=== PATIENT | male | born 1945 | race Caucasian/White ===

== ENCOUNTER → 2016-11-28 | Outpatient (CLI) | payer MEDICARE, OTHER ==
[2016-11-28 08:39] LABS: ALT 32 U/L (21-72); AST 19 U/L (17-59); Alkaline Phosphatase 83 U/L (38-126); Anion Gap 8 mmol/L; Blood Urea Nitrogen 24 mg/dL (9-20); Calcium 9.3 mg/dL (8.4-10.2); Carbon Dioxide 26 mmol/L (22-30); Chloride 107 mmol/L (98-107); Cholesterol 139 mg/dL (<200); Glucose 108 mg/dL (74-99); HDL Cholesterol 54 mg/dL (40-60); Non-African American GFR(MDRD) >60 (>60 ml/min/1.73 sqM); Potassium 4.3 mmol/L (3.5-5.1); Sodium 141 mmol/L (137-145); Total Bilirubin 0.5 mg/dL (0.2-1.3); Total Protein 6.6 g/dL (6.3-8.2); Triglycerides 79 mg/dL (<150)
== END | disposition home or self-care (01) ==
LOC: LABWHC1 07:45
PROVIDERS: ATTEND Internal Medicine Endocrinology, Diabetes & Metabolism
DX: E11.65 Type 2 diabetes mellitus with hyperglycemia (principal)
CPT/HCPCS: 36415; 80053; 80061; 82043

== ENCOUNTER → 2017-01-17 | Outpatient (CLI) | payer MEDICARE, OTHER ==
--- NOTE | 2017-01-17 15:07 | CT ---
EXAMINATION TYPE: CT chest wo con DATE OF EXAM: 01/17/2017 2:44 PM COMPARISON: CT chest July 06, [address] November 26, 2015 HISTORY: Solitary Pulmonary Nodule CT DLP: 702 mGycm. Automated Exposure Control for Dose Reduction was Utilized. TECHNIQUE: CT scan of the thorax is performed without IV contrast. FINDINGS: LUNGS: Slightly irregular nodular opacity anteriorly right upper lobe is slightly more prominent on c urrent study measuring 6 x 5 mm on axial image 25. More faint reticulonodular opacities superior and lateral to this near axial image 22 is stable. A 1 cm focus of increased reticulonodular opacity left upper lung abutting fissure on axial image 28 is also stable. More suspicious masslike density media lly inferior left upper lobe measures 1.9 x 1.6 cm on current study axial image 31 abutting mediastin um and is more prominent versus prior study. Inferior and medial to this there is more focal atelecta sis or scarring now present. No pleural effusion or pneumothorax is seen bilaterally. No new parenchy mal nodule or mass is present. MEDIASTINUM: Lack of IV contrast is noted to limit evaluation for mediastinal and especially hilar a denopathy. There are no definitive greater than 1 cm hilar or mediastinal lymph nodes. No cardiomeg ryan or pericardial effusion is seen. Coronary artery calcification is noted. OTHER: Cholecystectomy clips are redemonstrated. There is fat replaced atrophy of pancreas seen. IMPRESSION: Small nodule right upper lobe slightly increased in size up to 6 mm on current study. Mor e concern masslike consolidation left upper lobe medially is increased in size, neoplasm at this leve l is slightly more suspicious, consider PET/CT correlation.
== END | disposition home or self-care (01) ==
LOC: RADCTMAIN 14:23
PROVIDERS: ATTEND Internal Medicine
DX: R91.1 Solitary pulmonary nodule (principal)
CPT/HCPCS: 71250

== ENCOUNTER → 2017-01-18 | Outpatient (CLI) | payer MEDICARE, OTHER ==
[2017-01-18 14:22] LABS: Basophils % (A) 0 %; CH 31.1; CHCM 33.8; Eosinophils # (A) 0.2 k/uL (0-0.7); Eosinophils % (A) 3 %; HCT 38.9 % (39.0-53.0); HDW 3.12; HGB 12.8 gm/dL (13.0-17.5); Luc # (Auto) 0.13; Luc % (Auto) 2; Lymphocytes # (A) 0.8 k/uL (1.0-4.8); Lymphocytes % (A) 12 %; MCH 30.4 pg (25.0-35.0); MCHC 32.9 g/dL (31.0-37.0); MCV 92.5 fL (80.0-100.0); Mean Platelet Volume 8.9; Monocytes # (A) 0.3 k/uL (0-1.0); Monocytes % (A) 5 %; Neutrophils # (A) 5.4 k/uL (1.3-7.7); Neutrophils % (A) 79 %; RDW 13.9 % (11.5-15.5); WBC 6.8 k/uL (3.8-10.6); WBC (Perox) 7.27
[2017-01-18 14:36] LABS: ALT 31 U/L (21-72); AST 18 U/L (17-59); Alkaline Phosphatase 78 U/L (38-126); Anion Gap 8 mmol/L; Blood Urea Nitrogen 20 mg/dL (9-20); Calcium 9.7 mg/dL (8.4-10.2); Carbon Dioxide 30 mmol/L (22-30); Chloride 106 mmol/L (98-107); Cholesterol 137 mg/dL (<200); Glucose 92 mg/dL (74-99); HDL Cholesterol 47 mg/dL (40-60); Non-African American GFR(MDRD) 60 (>60 ml/min/1.73 sqM); Potassium 4.5 mmol/L (3.5-5.1); Sodium 144 mmol/L (137-145); Total Bilirubin 0.7 mg/dL (0.2-1.3); Total Protein 6.5 g/dL (6.3-8.2); Triglycerides 74 mg/dL (<150)
[2017-01-18 16:25] LABS: Erythrocyte Sedimentation Rate 19 mm/hr (0-15)
== END | disposition home or self-care (01) ==
LOC: LABWHC1 13:53
PROVIDERS: ATTEND Internal Medicine
DX: E78.5 Hyperlipidemia, unspecified (principal); I10 Essential (primary) hypertension; M31.6 Other giant cell arteritis; R51 Headache
CPT/HCPCS: 36415; 80053; 80061; 84439; 84443; 85025; 85652; 86038; 99214

== ENCOUNTER → 2017-01-25 | Outpatient (CLI) | payer MEDICARE, OTHER | LOC: LABWHC1 11:06 | PROVIDERS: ATTEND Internal Medicine Endocrinology, Diabetes & Metabolism | DX: E11.65 Type 2 diabetes mellitus with hyperglycemia (principal) | CPT/HCPCS: 82043 ==

== ENCOUNTER → 2017-01-31 | Outpatient (CLI) | payer MEDICARE, OTHER ==
--- NOTE | 2017-01-31 07:22 | MR ---
EXAMINATION TYPE: MR brain wo/w con DATE OF EXAM: 01/31/2017 6:45 AM COMPARISON: NONE HISTORY: Headache CONTRAST: Patient received 20 mL intravenous MultiHance gadolinium contrast. Multiplanar and multispin-echo imaging of the brain was performed . Pre and post contrast enhanced i mages are obtained. The ventricles, basal cisterns and sulci overlying the cerebral convexities are mildly enlarged. There is evidence of mild to moderate periventricular white matter ischemic demyelination. Remote deep white matter insults are also noted. Diffusion-weighted imaging demonstrates a small focus of acute edema within the mid to posterior left oshea radiata measuring approximately 8 mm in size. No additional areas of acute edema are seen. Th is compatible with a small acute vascular insult. No evidence for cortical insult. There is no evidence for midline shift or mass effect. Acute intracranial hemorrhage or extra-axial collection is not evident. No enhancing lesions are seen. The paranasal sinuses and mastoid air cells are well-aerated. IMPRESSION: 1. Small focus of acute edema within the mid to posterior left oshea radiata compatible with the sma ll acute vascular insult. 2. Age-related atrophic and chronic small vessel ischemic change. No enhancing lesions are seen.
== END | disposition home or self-care (01) ==
LOC: RADMRIMAIN 05:50
PROVIDERS: ATTEND Internal Medicine
DX: G31.1 Senile degeneration of brain, not elsewhere classified (principal); I67.82 Cerebral ischemia
CPT/HCPCS: 70553; A9577

== ENCOUNTER 2017-02-05 03:39 | Inpatient (IN) | payer MEDICARE, OTHER ==
[2017-02-05] MEDS ORDERED: ACETAMINOPHEN TAB 500 MG TAB PO STA (03:43)
[2017-02-05] MEDS ORDERED: IPRATROPIUM-ALBUTEROL 3 ML NEB INHALATION STA (03:44)
[2017-02-05] MEDS ORDERED: methylPREDNISolone SOD SUCCI 125 MG/2 ML VIAL IV STA (03:44)
--- NOTE | 2017-02-05 03:46 | ED ---
General Adult HPI - General Stated complaint: Respiratory Distress Time Seen by Provider: 02/05/17 03:42 Source: patient, EMS, RN notes reviewed Mode of arrival: EMS Limitations: no limitations - History of Present Illness Initial comments: Patient is a pleasant 71-year-old male presenting to the emergency department complaining of difficulty breathing. Onset was yesterday. Patient does have cough with green productive sputum. Patient has a history of COPD. No known fevers. No leg pain or leg swelling. Symptoms have worsened since onset. - Related Data Home Medications Medication Instructions Recorded Confirmed Albuterol Sulfate [Proventil Hfa] 1 - 2 puff INHALATION RT-Q6H PRN 07/09/1401/19 Insulin Detemir [Levemir] 30 unit SQ HS 07/09/14 02/05/17 Isosorbide Mononitrate ER [Imdur] 30 mg PO DAILY 07/09/14 02/05/17 Lisinopril [Zestril] 10 mg PO DAILY 07/09/14 02/05/17 Metoprolol Tartrate [Lopressor] 25 mg PO BID 07/09/14 02/05/17 Simvastatin [Zocor] 40 mg PO HS 07/09/14 02/05/17 amLODIPine [Norvasc] 5 mg PO DAILY 07/09/14 02/05/17 Budesonide-Formot 160-4.5 Mcg 2 puff INHALATION RT-BID 11/15/14 02/05/17 [Symbicort 160-4.5 Mcg Inhaler] Nortriptyline [Pamelor] 25 mg PO HS 11/15/14 02/05/17 PARoxetine [Paxil] 20 mg PO DAILY 11/15/14 02/05/17 ALPRAZolam 0.25 mg PO BID 10/03/15 02/05/17 INSULIN LISPRO (humaLOG) [humaLOG 12 units SQ HS 10/03/15 02/05/17 (formulary)] Previous Rx's Medication Instructions Recorded Aspirin 81 mg PO DAILY #30 chewable 10/04/15 Tiotropium 18 Mcg/Puff [Spiriva] 1 cap INHALATION DAILY #30 cap 10/04/15 Allergies Allergy/AdvReac Type Severity Reaction Status Date / Time levofloxacin [From Levaquin] Allergy Rash/Hives Verified 11/29/15 16:02 Review of Systems ROS Statement: Those systems with pertinent positive or pertinent negative responses have been documented in the HPI. ROS Other: All systems not noted in ROS Statement are negative. Constitutional: Reports: chills Eyes: Denies: eye pain ENT: Denies: ear pain Respiratory: Reports: cough, dyspnea Cardiovascular: Denies: chest pain Endocrine: Reports: fatigue Gastrointestinal: Denies: abdominal pain Genitourinary: Denies: urgency Musculoskeletal: Denies: back pain Skin: Denies: rash Neurological: Denies: headache Past Medical History Past Medical History: COPD, Diabetes Mellitus, Hyperlipidemia, Hypertension, Prostate Disorder Additional Past Medical History / Comment(s): HAS O2 AT HOME, WEARS PRN History of Any Multi-Drug Resistant Organisms: None Reported Past Surgical History: Back Surgery, Cholecystectomy, Hernia Repair Additional Past Surgical History / Comment(s): back surgery, ROBERTO CATARACT SX Past Anesthesia/Blood Transfusion Reactions: No Reported Reaction Past Psychological History: Anxiety Smoking Status: Former smoker Past Alcohol Use History: Rare Past Drug Use History: None Reported - Past Family History Father Family Medical History: Diabetes Mellitus General Exam Limitations: no limitations General appearance: alert, in no apparent distress Head exam: Present: atraumatic Eye exam: Present: normal appearance, PERRL ENT exam: Present: normal oropharynx Neck exam: Present: normal inspection Respiratory exam: Present: wheezes, decreased breath sounds Cardiovascular Exam: Present: regular rate, normal rhythm GI/Abdominal exam: Present: soft. Absent: tenderness Extremities exam: Present: normal inspection. Absent: pedal edema, calf tenderness Neurological exam: Present: alert Psychiatric exam: Present: normal affect, normal mood Skin exam: Absent: rash Course Vital Signs 02/05/17 02/05/17 02/05/17 03:40 04:05 04:15 Temperature 99.9 F H Pulse Rate 107 H 97 96 Respiratory 24 Rate Blood Pressure 153/79 O2 Sat by Pulse 94 L Oximetry EKG Findings - EKG Comments: EKG Findings:: Sinus rhythm at 99 with PACs. WV 156. QRS 84. QT 322. QTC 413. Normal axis. Septal Q waves. No acute ST change. Medical Decision Making - Medical Decision Making Patient shows possible infection with a urine and therefore meets sepsis criteria. This is somewhat complicated by COPD. Patient nevertheless will be based on antibiotics. Case discussed with Dr. li, who will admit for Dr. Boyer. Admission orders written. IV antibiotics started. Consult placed for Dr. Boyer. - Lab Data Result diagrams: 02/05/17 04:07 02/05/17 04:07 Lab Results 02/05/17 02/05/17 02/05/17 Range/Units 04:07 04:07 04:07 WBC 12.8 H (3.8-10.6) k/uL RBC 4.03 L (4.30-5.90) m/uL Hgb 12.4 L (13.0-17.5) gm/dL Hct 36.5 L (39.0-53.0) % MCV 90.6 (80.0-100.0) fL MCH 30.7 (25.0-35.0) pg MCHC 33.9 (31.0-37.0) g/dL RDW 13.8 (11.5-15.5) % Plt Count 139 L (150-450) k/uL Neutrophils % 86 % Lymphocytes % 6 % Monocytes % 5 % Eosinophils % 1 % Basophils % 0 % Neutrophils # 11.0 H (1.3-7.7) k/uL Lymphocytes # 0.8 L (1.0-4.8) k/uL Monocytes # 0.6 (0-1.0) k/uL Eosinophils # 0.2 (0-0.7) k/uL Basophils # 0.0 (0-0.2) k/uL PT (9.0-12.0) sec INR (<1.1) APTT (22.0-30.0) sec Sodium 139 (137-145) mmol/L Potassium 4.3 (3.5-5.1) mmol/L Chloride 103 (98-107) mmol/L Carbon Dioxide 26 (22-30) mmol/L Anion Gap 10 mmol/L BUN 30 H (9-20) mg/dL Creatinine 1.20 (0.66-1.25) mg/dL Est GFR (MDRD) Af Amer >60 (>60 ml/min/1.73 sqM) Est GFR (MDRD) Non-Af 60 (>60 ml/min/1.73 sqM) Glucose 217 H (74-99) mg/dL Plasma Lactic Acid Nehemias 0.9 (0.7-2.0) mmol/L Calcium 9.1 (8.4-10.2) mg/dL Total Bilirubin 1.0 (0.2-1.3) mg/dL AST 16 L (17-59) U/L ALT 30 (21-72) U/L Alkaline Phosphatase 78 (38-126) U/L Total Protein 6.1 L (6.3-8.2) g/dL Albumin 3.5 (3.5-5.0) g/dL Urine Color Urine Appearance (Clear) Urine pH (5.0-8.0) Ur Specific [place] (1.001-1.035) Urine Protein (Negative) Urine Glucose (UA) (Negative) Urine Ketones (Negative) Urine Blood (Negative) Urine Nitrite (Negative) Urine Bilirubin (Negative) Urine Urobilinogen (<2.0) mg/dL Ur Leukocyte Esterase (Negative) Urine RBC (0-5) /hpf Urine WBC (0-5) /hpf Ur Squamous Epith Cells (0-4) /hpf Hyaline Casts (0-2) /lpf Granular Casts (0) /lpf Urine Mucus (None) /hpf Influenza Type A RNA (Not Detectd) Influenza Type B (PCR) (Not Detectd) 02/05/17 02/05/17 02/05/17 Range/Units 04:07 04:25 05:37 WBC (3.8-10.6) k/uL RBC (4.30-5.90) m/uL Hgb (13.0-17.5) gm/dL Hct (39.0-53.0) % MCV (80.0-100.0) fL MCH (25.0-35.0) pg MCHC (31.0-37.0) g/dL RDW (11.5-15.5) % Plt Count (150-450) k/uL Neutrophils % % Lymphocytes % % Monocytes % % Eosinophils % % Basophils % % Neutrophils # (1.3-7.7) k/uL Lymphocytes # (1.0-4.8) k/uL Monocytes # (0-1.0) k/uL Eosinophils # (0-0.7) k/uL Basophils # (0-0.2) k/uL PT 11.5 (9.0-12.0) sec INR 1.1 (<1.1) APTT 23.7 (22.0-30.0) sec Sodium (137-145) mmol/L Potassium (3.5-5.1) mmol/L Chloride (98-107) mmol/L Carbon Dioxide (22-30) mmol/L Anion Gap mmol/L BUN (9-20) mg/dL Creatinine (0.66-1.25) mg/dL Est GFR (MDRD) Af Amer (>60 ml/min/1.73 sqM) Est GFR (MDRD) Non-Af (>60 ml/min/1.73 sqM) Glucose (74-99) mg/dL Plasma Lactic Acid Nehemias (0.7-2.0) mmol/L Calcium (8.4-10.2) mg/dL Total Bilirubin (0.2-1.3) mg/dL AST (17-59) U/L ALT (21-72) U/L Alkaline Phosphatase (38-126) U/L Total Protein (6.3-8.2) g/dL Albumin (3.5-5.0) g/dL Urine Color Yellow Urine Appearance Clear (Clear) Urine pH 5.5 (5.0-8.0) Ur Specific [place] 1.020 (1.001-1.035) Urine Protein 2+ H (Negative) Urine Glucose (UA) 3+ H (Negative) Urine Ketones Negative (Negative) Urine Blood Small H (Negative) Urine Nitrite Negative (Negative) Urine Bilirubin Negative (Negative) Urine Urobilinogen 2.0 (<2.0) mg/dL Ur Leukocyte Esterase Small H (Negative) Urine RBC 3 (0-5) /hpf Urine WBC 17 H (0-5) /hpf Ur Squamous Epith Cells 2 (0-4) /hpf Hyaline Casts 1 (0-2) /lpf Granular Casts 112 (0) /lpf Urine Mucus Rare H (None) /hpf Influenza Type A RNA Not Detected (Not Detectd) Influenza Type B (PCR) Not Detected (Not Detectd) - Radiology Data Radiology results: image reviewed (Chest x-ray shows persistent infiltrate seen on prior CT. No new intrathoracic abnormality.) Critical Care Time Critical Care Time: Yes Total Critical Care Time: 31 Disposition Clinical Impression: Asthma exacerbation in COPD, Sepsis, Urinary tract infection Disposition: ADMITTED IP TO THIS HOSP
[2017-02-05 04:29] LABS: Basophils % (A) 0 %; CH 30.7; CHCM 34.1; Eosinophils # (A) 0.2 k/uL (0-0.7); Eosinophils % (A) 1 %; HCT 36.5 % (39.0-53.0); HDW 3.03; HGB 12.4 gm/dL (13.0-17.5); Luc # (Auto) 0.17; Luc % (Auto) 1; Lymphocytes # (A) 0.8 k/uL (1.0-4.8); Lymphocytes % (A) 6 %; MCH 30.7 pg (25.0-35.0); MCHC 33.9 g/dL (31.0-37.0); MCV 90.6 fL (80.0-100.0); Mean Platelet Volume 7.2; Monocytes # (A) 0.6 k/uL (0-1.0); Monocytes % (A) 5 %; Neutrophils % (A) 86 %; RBC 4.03 m/uL (4.30-5.90); RDW 13.8 % (11.5-15.5); WBC 12.8 k/uL (3.8-10.6); WBC (Perox) 13.36
[2017-02-05 04:42] LABS: ALT 30 U/L (21-72); AST 16 U/L (17-59); Alkaline Phosphatase 78 U/L (38-126); Anion Gap 10 mmol/L; Blood Urea Nitrogen 30 mg/dL (9-20); Calcium 9.1 mg/dL (8.4-10.2); Carbon Dioxide 26 mmol/L (22-30); Chloride 103 mmol/L (98-107); Glucose 217 mg/dL (74-99); Non-African American GFR(MDRD) 60 (>60 ml/min/1.73 sqM); Potassium 4.3 mmol/L (3.5-5.1); Sodium 139 mmol/L (137-145); Total Protein 6.1 g/dL (6.3-8.2)
--- NOTE | 2017-02-05 05:06 | XR ---
EXAM: XR Chest, 2 Views. CLINICAL HISTORY: Reason: Fever TECHNIQUE: Frontal and lateral views of the chest. COMPARISON: 01/17/[address] FINDINGS: Lungs: Opacity overlying the left hilum on the frontal view is seen anteriorly on the lateral view and corresponds to the medial left upper lobe infiltrate visible on the recent CT. No new additional infiltrate is seen. Pleural space: Unremarkable. No pneumothorax. Heart: Unremarkable. No cardiomegaly. Mediastinum: Unremarkable. Bones/joints: The bones are stable including multilevel degenerative changes. Upper abdomen: Right upper quadrant clips consistent with cholecystectomy. IMPRESSION: 1. Persistent medial left upper lobe infiltrate as was better seen by prior CT and for which continued follow-up is recommended to ensure clearing and exclude other etiologies including neoplasm. 2. No new additional intrathoracic abnormality is seen.
[2017-02-05 05:23] LABS: INR 1.1 (<1.1); Partial Thromboplastin Time 23.7 sec (22.0-30.0); Prothrombin Time 11.5 sec (9.0-12.0)
[2017-02-05 05:50] LABS: Appearance,Urine Clear (Clear); Bilirubin,Urine Negative (Negative); Glucose,Urine (UA) 3+ (Negative); Granular Casts,Urine 112 /lpf (0); Ketones,Urine Negative (Negative); Leukocyte Esterase,Urine Small (Negative); Mucus,Urine Rare /hpf; Nitrite,Urine Negative (Negative); PH, Urine 5.5 (5.0-8.0); Particle Count 9347; Protein,Urine 2+ (Negative); RBC,Urine 3 /hpf (0-5); Squamous Epithelial Cell,Urine 2 /hpf (0-4); UA Billing (MACRO vs. MICRO) MICRO; WBC,Urine 17 /hpf (0-5)
[2017-02-05] MEDS ORDERED: IPRATROPIUM-ALBUTEROL 3 ML NEB INHALATION PRN (05:58)
[2017-02-05] MEDS: IPRATROPIUM-ALBUTEROL 3 ML NEB INHALATION SCH ×4 (10:58→21:12)
[2017-02-05 12:22] LABS: Glucose,Whole Blood 286 mg/dL (75-99)
[2017-02-05] MEDS ORDERED: TEMAZEPAM 15 MG CAP PO PRN (13:29)
[2017-02-05] MEDS: methylPREDNISolone SOD SUCCI 125 MG/2 ML VIAL IV SCH ×3 (14:38→23:53)
[2017-02-05] MEDS: ALPRAZolam 0.25 MG TAB PO SCH ×2 (14:39→20:12)
[2017-02-05] MEDS: amLODIPine 5 MG TAB PO SCH (14:43)
[2017-02-05] MEDS: PARoxetine 20 MG TAB PO SCH (14:43)
[2017-02-05] MEDS: ASPIRIN 81 MG CHEW PO SCH (14:43)
[2017-02-05] MEDS: ISOSORBIDE MONONITRATE ER 30 MG TAB.ER.24H PO SCH (14:43)
[2017-02-05] MEDS: LISINOPRIL 10 MG TAB PO SCH (14:44)
[2017-02-05 16:31] LABS: Glucose,Whole Blood 348 mg/dL (75-99)
[2017-02-05] MEDS: INSULIN REGULAR 100 UNIT in SODIUM CHLORIDE 0.9% 100 ML IV SCH (16:58)
[2017-02-05] MEDS: INSULIN LISPRO (humaLOG) 300 UNIT/3 ML VIAL SQ SCH (17:05)
[2017-02-05] MEDS ORDERED: INSULIN LISPRO (humaLOG) 300 UNIT/3 ML VIAL SQ SCH (17:30)
[2017-02-05 17:41] LABS: Glucose,Whole Blood 320 mg/dL (75-99)
[2017-02-05 18:05] LABS: Glucose,Whole Blood 288 mg/dL (75-99)
--- NOTE | 2017-02-05 18:11 | HP ---
DATE OF ADMISSION: 02/05/2017 CHIEF COMPLAINT: Respiratory distress. HISTORY OF PRESENT ILLNESS: This 71-year-old gentleman with a past medical history of multiple medical problems including coronary artery disease, COPD, CVA, TIA, diabetes mellitus, hypertension, hyperlipidemia, myocardial infarction, disorder of the prostate, , history of chronic hypoxic respiratory failure, anxiety, depression, being followed by Dr. Boyer in the outpatient setting, has not been feeling well over the past 3 to 4 days. The patient has increasing cough. Yesterday the patient had increasing shortness of breath. The patient came to [facility] and was admitted for further evaluation and treatment. WBC 12.8, plasma lactic 0.9. The chest x-ray was done which showed persistent medial left upper lobe infiltrate seen on the CT scan and also the possibility of pneumonia or neoplasm is considered. The patient was admitted for further evaluation and treatment. There is no history of any fevers or rigors. No headache or loss of consciousness, hematochezia or melena at this time. PAST MEDICAL HISTORY: History of CAD, COPD, CVA, TIA, diabetes mellitus type 2, hypertension, hyperlipidemia, history of myocardial infarction, pneumonia, history of prostate disorder, back surgery, cholecystectomy, anxiety and depression. Medications prior to admission include: 1. Norvasc 5 mg p.o. daily. 2. Flomax 0.4. 3. Zocor 40 mg every 8. 4. Paxil 20 mg p.o. 5. Pamelor 25 mg every 6. 6. Lopressor 25 mg p.o. b.i.d. 7. Zestril 10 mg p.o. daily. 8. Imdur 30 mg p.o. daily. 9. Levemir 67 units subcutaneously at bedtime. 10. NovoLog 8 units subcu. 11. Plavix 75 mg p.o. daily. 12. Symbicort 2 puffs b.i.d. p.r.n. 13. Aspirin 81 mg p.o. daily. 14. Proventil 1 to 2 puffs every 6 p.r.n. 15. Xanax 0.5 b.i.d. ALLERGIES: LEVAQUIN. FAMILY HISTORY: History of diabetes mellitus in the family. SOCIAL HISTORY: Previous smoking. Occasional alcohol. REVIEW OF SYSTEMS: ENT: No diminishing hearing. Diminished vision. CARDIOVASCULAR: As mentioned earlier. RESPIRATORY: As mentioned earlier. GI: No nausea. : No dysuria. NERVOUS SYSTEM: No numbness or weakness. ALLERGY/IMMUNOLOGY: None. MUSCULOSKELETAL: As mentioned. RHEUMATOLOGY: Negative. PSYCHIATRY: As mentioned earlier. PHYSICAL EXAMINATION: The patient is alert, oriented x3. Pulse 84, blood pressure 130/70, respirations 20, temperature 97.8, pulse ox 97% on 2 L. HEENT: Conjunctivae normal. NECK: No JVD. CARDIOVASCULAR: S1 and S2 muffled. LUNGS: Breath sounds decreased at the bases. Bilateral scattered rhonchi and expiratory wheezing also present. ABDOMEN: Soft, nontender. No masses palpable. EXTREMITIES: Legs no edema. NERVOUS SYSTEM: Higher functions as mentioned. Moves all 4 limbs. No focal deficits. SKIN: No ulcer, rash or bleeding. LABS: WBC 12.6, hemoglobin is 12.4. ASSESSMENT: 1. Chronic obstructive pulmonary disease acute exacerbation, with a possible left upper lobe pneumonia, possibly gram-negative with SARS. 2. Coronary artery disease. 3. Chronic obstructive pulmonary disease. 4. Cerebrovascular accident, transient ischemic attack. 5. Diabetes mellitus type 2. 6. Chronic obstructive pulmonary disease exacerbation. 7. Hypertension. 8. Hyperlipidemia. 9. History of myocardial infarction. 10. History of pneumonia. 11. History of prostate disorder. 12. History of syncope. 13. History of chronic hypoxic respiratory failure on 2 L nasal cannula. 14. History of diabetes type 2. 15. History of benign prostatic hypertrophy. 16. History of back surgery and degenerative joint disease. 17. History of cardiac catheterization treated medically. 18. Anxiety, depression, not otherwise specified. 19. Remote history of nicotine dependence. 20. FULL CODE. RECOMMENDATIONS: This 71-year-old gentleman who presented with multiple complex medical issues, we will monitor the patient closely, continue current medications and continue symptomatic treatment. Initiate broad-spectrum IV antibiotics. Otherwise, I would also recommend consultation with Dr. Boyer or Dr. Snider. Resume home medications. Guarded prognosis because of multiple complex medical issues. Further recommendations to follow. MTDD
[2017-02-05 18:51] LABS: Glucose,Whole Blood 293 mg/dL (75-99)
[2017-02-05 19:17] LABS: Glucose,Whole Blood 276 mg/dL (75-99)
[2017-02-05 19:42] LABS: Glucose,Whole Blood 281 mg/dL (75-99)
--- NOTE | 2017-02-05 19:47 | P.CNPUL ---
History of Present Illness Consult date: 02/05/17 Reason for consult: dyspnea History of present illness: This is a 71-year-old male patient with known history of COPD and a left suprahilar lesion that is being monitored through his [employer] for quite some time in addition to history of diabetes mellitus, hypertension, hyperlipidemia, coronary artery disease and previous history of CVA. The patient came into the hospital because of few days' worth of increased shortness of breath chest congestion and wheezing and he was found to be in acute COPD exacerbation. Chest x-ray was repeated and showed no abnormalities in the left suprahilar area which was known on previous CAT scan imaging. Note that the patient's most recent CAT scan of the chest was on 01/17/2017 and it showed irregular nodular opacity in the anterior right upper lobe slightly prominent compared to the previous study measuring 6 x 5 mm in size. The suspicious masslike density was again seen in the left upper lobe measuring 1.9 x 1.6 cm in size abutting the mediastinum and a bit more prominent versus the previous studies. No mediastinal lymphadenopathy, yet the study was limited knowing that there was no contrast given. A PET scan done on 07/15/2016 showed no metabolic activity corresponding to the left upper lobe lesion and furthermore there was no suspicious metabolic activity noted in the entire body. As such this was being monitored by serial CAT scan imaging Review of Systems Full review of system was done and the positive findings were old mentionable history of present illness Past Medical History Past Medical History: Coronary Artery Disease (CAD), COPD, CVA/TIA, Diabetes Mellitus, Hyperlipidemia, Hypertension, Myocardial Infarction ([place]), Pneumonia, Prostate Disorder, Syncope Additional Past Medical History / Comment(s): COPD, diabetes mellitus type 2, BPH, left upper lobe lesion measuring 1.9 x 1.6 cm in size and not showing any metabolic activity, coronary artery disease with previous [place], diabetes mellitus , hypertension, hyperlipidemia, chronic back pain, BPH Last Myocardial Infarction Date:: 05/24/12 History of Any Multi-Drug Resistant Organisms: None Reported Past Surgical History: Back Surgery, Cholecystectomy, Heart Catheterization, Hernia Repair Additional Past Surgical History / Comment(s): 2011 cardiac cath-treated medically, low back surgery, ROBERTO CATARACT SX, abdominal hernia repair, bilateral cataract removal, bronchoscopy. Past Anesthesia/Blood Transfusion Reactions: No Reported Reaction Past Psychological History: Anxiety, Depression Additional Psychological History / Comment(s): Pt resides alone at [facility]. He has a ground level apartment. He uses O2 at 2L/[place] prn. He drives. He gets Meals on Wheels. Smoking Status: Former smoker Past Alcohol Use History: Rare Additional Past Alcohol Use History / Comment(s): Pt started smoking in 1960 and quit in 1993. He was a 2ppd smoker. Past Drug Use History: None Reported - Past Family History Mother Family Medical History: No Reported History Father Family Medical History: Diabetes Mellitus Additional Family Medical History / Comment(s): Father of diabetes at the age of 83 yrs. Medications and Allergies Home Medications Medication Instructions Recorded Confirmed Type Albuterol Sulfate [Proventil Hfa] 1 - 2 puff INHALATION RT-Q6H PRN 07/09/1401/19 History Insulin Detemir [Levemir] 67 unit SQ HS 07/09/14 02/05/17 History Isosorbide Mononitrate ER [Imdur] 30 mg PO DAILY 07/09/14 02/05/17 History Lisinopril [Zestril] 10 mg PO DAILY 07/09/14 02/05/17 History Metoprolol Tartrate [Lopressor] 25 mg PO BID 07/09/14 02/05/17 History Simvastatin [Zocor] 40 mg PO HS 07/09/14 02/05/17 History amLODIPine [Norvasc] 5 mg PO DAILY 07/09/14 02/05/17 History Budesonide-Formot 160-4.5 Mcg 2 puff INHALATION RT-BID PRN 11/15/14 02/05/17 History [Symbicort 160-4.5 Mcg Inhaler] Nortriptyline [Pamelor] 25 mg PO HS 11/15/14 02/05/17 History PARoxetine [Paxil] 20 mg PO DAILY 11/15/14 02/05/17 History ALPRAZolam 0.25 mg PO BID 10/03/15 02/05/17 History Clopidogrel Bisulfate [Plavix] 75 mg PO DAILY 02/05/17 02/05/17 History Insulin Aspart [NovoLOG] 8 unit SQ AC-TID 02/05/17 02/05/17 History Tamsulosin HCl [Flomax] 0.4 mg PO DAILY 02/05/17 02/05/17 History Allergies Allergy/AdvReac Type Severity Reaction Status Date / Time levofloxacin [From Levaquin] Allergy Rash/Hives Verified 02/05/17 07:10 Physical Exam Vitals: Vital Signs Temp Pulse Pulse Resp BP BP Pulse Ox 02/05/17 16:00 84 20 02/05/17 15:04 92 02/05/17 15:00 98 F 87 20 169/82 93 L 02/05/17 14:55 86 02/05/17 08:00 97.8 F 84 20 137/70 96 02/05/17 07:46 97.8 F 81 18 154/100 97 02/05/17 06:17 98 F 87 16 143/79 95 Intake and Output 02/05/17 02/05/17 02/05/17 06:59 14:59 22:59 Intake Total 240 42.784 Balance 240 42.784 Intake: Intake, IV Titration 42.784 Amount Insulin Regular 100 unit 42.784 In Sodium Chloride 0.9% 100 ml @ Titrate IV .Q0M [facility], [facility]–1983 Rx#:[id number] Oral 240 Other: Voiding Method Toilet # Voids 2 Head exam was generally normal. There was no scleral icterus or corneal arcus. Mucous membranes were moist.Neck was supple and without jugular venous distension, thyromegaly, or carotid bruits. Carotids were easily palpable bilaterally. There was no adenopathy. Lung sounds are diminished bilaterally along with some scattered rhonchi and scattered expiratory wheezes throughout the lung wright bilaterally.Cardiac exam revealed the PMI to be normally situated and sized. The rhythm was regular and no extrasystoles were noted during several minutes of auscultation. The first and second heart sounds were normal and physiologic splitting of the second heart sound was noted. There were no murmurs, rubs, clicks, or gallops.Abdominal exam revealed normal bowel sounds. The abdomen was soft, non-tender, and without masses, organomegaly, or appreciable enlargement of the abdominal aorta.Examination of the extremities revealed easily palpable radial, femoral and pedal pulses. There was no cyanosis , clubbing or edema. Results - Laboratory Findings CBC and BMP: 02/05/17 04:07 02/05/17 04:07 PT/INR, D-dimer PT 11.5 sec (9.0-12.0) 02/05/17 04:07 INR 1.1 (<1.1) 02/05/17 04:07 Abnormal lab findings: Abnormal Labs 02/05/17 02/05/17 02/05/17 12:20 16:29 17:30 POC Glucose (mg/dL) 286 H 348 H 320 H 02/05/17 02/05/17 02/05/17 18:03 18:39 19:06 POC Glucose (mg/dL) 288 H 293 H 276 H - Diagnostic Findings Chest x-ray: image reviewed Assessment and Plan Plan: Assessment 1 acute COPD exacerbation with secondary shortness of breath 2 left upper lobe nodule measuring 1.9 x 1.6 cm in size, not majorly changed compared to the prior CAT scan of the chest to monitoring any significant metabolic activity on the prior PET scan done and July 152015 3 coronary artery disease 4 CVA/TIA 5 diabetes mellitus type 2 6 hypertension 7 hyperlipidemia 8 BPH 9 chronic back pain Plan We'll treat this patient for an acute COPD exacerbation. The treatment is appropriate for now. We will add systemic steroids. We'll add antibiotics. Continue the bronchodilators. The follow-up of the left upper lobe nodule through his [employer] on outpatient basis. Anticipate recovered within next 48 hours.
[2017-02-05 20:10] LABS: Glucose,Whole Blood 250 mg/dL (75-99)
[2017-02-05] MEDS: HEPARIN SODIUM,PORCINE 5,000 UNIT/ML 1 ML VIAL SQ SCH (20:12)
[2017-02-05] MEDS: NORTRIPTYLINE 25 MG CAP PO SCH (20:12)
[2017-02-05] MEDS: METOPROLOL TARTRATE 25 MG TAB PO SCH (20:12)
[2017-02-05] MEDS: ATORVASTATIN 20 MG TAB PO SCH (20:12)
[2017-02-05 20:33] LABS: Glucose,Whole Blood 231 mg/dL (75-99)
[2017-02-05] MEDS ORDERED: INSULIN DETEMIR 100 UNIT/ML 10 ML VIAL SQ SCH (21:00)
[2017-02-05] MEDS: FORMOTEROL FUMARATE 20 MCG/2 ML NEBU INHALATION SCH (21:12)
[2017-02-05] MEDS: BUDESONIDE 1 MG/2 ML NEBU INHALATION SCH (21:12)
[2017-02-05 22:47] LABS: Glucose,Whole Blood 177 mg/dL (75-99)
[2017-02-06 00:27] LABS: Glucose,Whole Blood 181 mg/dL (75-99)
[2017-02-06 02:35] LABS: Glucose,Whole Blood 164 mg/dL (75-99)
[2017-02-06 04:41] LABS: Glucose,Whole Blood 152 mg/dL (75-99)
[2017-02-06] MEDS: methylPREDNISolone SOD SUCCI 125 MG/2 ML VIAL IV SCH ×2 (06:11→12:22)
[2017-02-06 06:24] LABS: Glucose,Whole Blood 161 mg/dL (75-99)
[2017-02-06 08:13] LABS: Basophils % (A) 0 %; CH 30.9; Eosinophils % (A) 0 %; HCT 34.6 % (39.0-53.0); HDW 3.13; Luc # (Auto) 0.04; Luc % (Auto) 0; Lymphocytes # (A) 0.4 k/uL (1.0-4.8); Lymphocytes % (A) 2 %; MCH 30.7 pg (25.0-35.0); MCHC 34.7 g/dL (31.0-37.0); MCV 88.6 fL (80.0-100.0); Mean Platelet Volume 7.6; Monocytes # (A) 0.3 k/uL (0-1.0); Monocytes % (A) 1 %; Neutrophils # (A) 18.1 k/uL (1.3-7.7); Neutrophils % (A) 96 %; RDW 13.7 % (11.5-15.5); WBC 18.9 k/uL (3.8-10.6); WBC (Perox) 19.52
[2017-02-06] MEDS: IPRATROPIUM-ALBUTEROL 3 ML NEB INHALATION SCH ×4 (08:15→20:39)
[2017-02-06] MEDS: FORMOTEROL FUMARATE 20 MCG/2 ML NEBU INHALATION SCH ×2 (08:15→20:39)
[2017-02-06] MEDS: BUDESONIDE 1 MG/2 ML NEBU INHALATION SCH ×2 (08:15→20:39)
[2017-02-06 08:21] LABS: Glucose,Whole Blood 238 mg/dL (75-99)
[2017-02-06 08:25] LABS: Anion Gap 12 mmol/L; Blood Urea Nitrogen 38 mg/dL (9-20); Calcium 9.1 mg/dL (8.4-10.2); Carbon Dioxide 22 mmol/L (22-30); Chloride 103 mmol/L (98-107); Glucose 158 mg/dL (74-99); Non-African American GFR(MDRD) 57 (>60 ml/min/1.73 sqM); Potassium 4.5 mmol/L (3.5-5.1); Sodium 137 mmol/L (137-145)
[2017-02-06] MEDS: INSULIN LISPRO (humaLOG) 300 UNIT/3 ML VIAL SQ SCH ×3 (08:31→17:44)
[2017-02-06] MEDS: PARoxetine 20 MG TAB PO SCH (08:40)
[2017-02-06] MEDS: amLODIPine 5 MG TAB PO SCH (08:40)
[2017-02-06] MEDS: METOPROLOL TARTRATE 25 MG TAB PO SCH ×2 (08:40→21:19)
[2017-02-06] MEDS: HEPARIN SODIUM,PORCINE 5,000 UNIT/ML 1 ML VIAL SQ SCH ×2 (08:40→21:19)
[2017-02-06] MEDS: LISINOPRIL 10 MG TAB PO SCH (08:40)
[2017-02-06] MEDS: ISOSORBIDE MONONITRATE ER 30 MG TAB.ER.24H PO SCH (08:41)
[2017-02-06] MEDS: TAMSULOSIN 0.4 MG CAP.ER.24H PO SCH (08:41)
[2017-02-06] MEDS: PANTOPRAZOLE 40 MG TABLET PO SCH (08:41)
[2017-02-06] MEDS: ASPIRIN 81 MG CHEW PO SCH (08:41)
[2017-02-06] MEDS: ALPRAZolam 0.25 MG TAB PO SCH ×2 (08:50→21:19)
[2017-02-06 10:29] LABS: Glucose,Whole Blood 306 mg/dL (75-99)
--- NOTE | 2017-02-06 12:21 | P.PN ---
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 The patient came into the hospital because of few days' worth of increased shortness of breath chest congestion and wheezing and he was found to be in acute COPD exacerbation. Chest x-ray was repeated and showed no abnormalities in the left suprahilar area which was known on previous CAT scan imaging. Note that the patient's most recent CAT scan of the chest was on 01/17/2017 and it showed irregular nodular opacity in the anterior right upper lobe slightly prominent compared to the previous study measuring 6 x 5 mm in size. The suspicious masslike density was again seen in the left upper lobe measuring 1.9 x 1.6 cm in size abutting the mediastinum and a bit more prominent versus the previous studies. No mediastinal lymphadenopathy, yet the study was limited knowing that there was no contrast given. A PET scan done on 07/15/2016 showed no metabolic activity corresponding to the left upper lobe lesion and furthermore there was no suspicious metabolic activity noted in the entire body. As such this was being monitored by serial CAT scan imaging. The patient is seen again today 02/06/2017 in follow-up on the regular medical floor. He is awake and alert in no acute distress. He states he is breathing better today as compared to yesterday but not quite back to his baseline. He remains afebrile. He is maintaining good O2 saturations in the mid 90s on 2 L/ m per nasal cannula. White count 18.9. Objective - Vital Signs Vital signs: Vital Signs Temp 97.7 F 02/06/17 07:00 Pulse 68 02/06/17 11:48 Resp 16 02/06/17 07:00 BP 125/72 02/06/17 07:00 Pulse Ox 95 02/06/17 08:18 Intake & Output 02/05/17 02/06/17 02/06/17 18:59 06:59 18:59 Intake Total 270.884 535.766 14.350 Balance 270.884 535.766 14.350 Intake: Intake, IV Titration 30.884 55.766 14.350 Amount Insulin Regular 100 unit 30.884 55.766 14.350 In Sodium Chloride 0.9% 100 ml @ Titrate IV .Q0M [facility] Rx#:[id number] Oral 240 480 Other: Voiding Method Toilet Toilet Toilet # Voids 2 1 - Exam GENERAL EXAM: Alert, comfortable in no apparent distress. HEAD: Normocephalic. EYES: Normal reaction of pupils, equal size. NOSE: Clear with pink turbinates. THROAT: No erythema or exudates. NECK: No masses, no JVD. CHEST: No chest wall deformity. LUNGS: Equal air entry with bilateral wheezing, diminished.. CVS: S1 and S2 normal with no audible murmurs, regular rhythm. ABDOMEN: No hepatosplenomegaly, normal bowel sounds, no guarding or rigidity. SPINE: No scoliosis or deformity SKIN: No rashes CENTRAL NERVOUS SYSTEM: No focal deficits, tone is normal in all 4 extremities. Extremities: There is no peripheral edema. No clubbing, no cyanosis. Peripheral pulses are intact. - Labs CBC & Chem 7: 02/06/17 07:40 02/06/17 07:40 Labs: Abnormal Lab Results - Last 24 Hours (Table) 02/05/17 02/05/17 02/05/17 Range/Units 12:20 15:12 16:29 WBC (3.8-10.6) k/uL RBC (4.30-5.90) m/uL Hgb (13.0-17.5) gm/dL Hct (39.0-53.0) % Neutrophils # (1.3-7.7) k/uL Lymphocytes # (1.0-4.8) k/uL BUN (9-20) mg/dL Creatinine (0.66-1.25) mg/dL Glucose (74-99) mg/dL POC Glucose (mg/dL) 286 H 348 H (75-99) mg/dL Hemoglobin A1c 8.0 H (4.2-6.1) % 02/05/17 02/05/17 02/05/17 Range/Units 17:30 18:03 18:39 WBC (3.8-10.6) k/uL RBC (4.30-5.90) m/uL Hgb (13.0-17.5) gm/dL Hct (39.0-53.0) % Neutrophils # (1.3-7.7) k/uL Lymphocytes # (1.0-4.8) k/uL BUN (9-20) mg/dL Creatinine (0.66-1.25) mg/dL Glucose (74-99) mg/dL POC Glucose (mg/dL) 320 H 288 H 293 H (75-99) mg/dL Hemoglobin A1c (4.2-6.1) % 02/05/17 02/05/17 02/05/17 Range/Units 19:06 19:30 19:57 WBC (3.8-10.6) k/uL RBC (4.30-5.90) m/uL Hgb (13.0-17.5) gm/dL Hct (39.0-53.0) % Neutrophils # (1.3-7.7) k/uL Lymphocytes # (1.0-4.8) k/uL BUN (9-20) mg/dL Creatinine (0.66-1.25) mg/dL Glucose (74-99) mg/dL POC Glucose (mg/dL) 276 H 281 H 250 H (75-99) mg/dL Hemoglobin A1c (4.2-6.1) % 02/05/17 02/05/17 02/06/17 Range/Units 20:31 22:36 00:26 WBC (3.8-10.6) k/uL RBC (4.30-5.90) m/uL Hgb (13.0-17.5) gm/dL Hct (39.0-53.0) % Neutrophils # (1.3-7.7) k/uL Lymphocytes # (1.0-4.8) k/uL BUN (9-20) mg/dL Creatinine (0.66-1.25) mg/dL Glucose (74-99) mg/dL POC Glucose (mg/dL) 231 H 177 H 181 H (75-99) mg/dL Hemoglobin A1c (4.2-6.1) % 02/06/17 02/06/17 02/06/17 Range/Units 02:34 04:29 06:23 WBC (3.8-10.6) k/uL RBC (4.30-5.90) m/uL Hgb (13.0-17.5) gm/dL Hct (39.0-53.0) % Neutrophils # (1.3-7.7) k/uL Lymphocytes # (1.0-4.8) k/uL BUN (9-20) mg/dL Creatinine (0.66-1.25) mg/dL Glucose (74-99) mg/dL POC Glucose (mg/dL) 164 H 152 H 161 H (75-99) mg/dL Hemoglobin A1c (4.2-6.1) % 02/06/17 02/06/17 02/06/17 Range/Units 07:40 07:40 08:20 WBC 18.9 H (3.8-10.6) k/uL RBC 3.90 L (4.30-5.90) m/uL Hgb 12.0 L (13.0-17.5) gm/dL Hct 34.6 L (39.0-53.0) % Neutrophils # 18.1 H (1.3-7.7) k/uL Lymphocytes # 0.4 L (1.0-4.8) k/uL BUN 38 H (9-20) mg/dL Creatinine 1.26 H (0.66-1.25) mg/dL Glucose 158 H (74-99) mg/dL POC Glucose (mg/dL) 238 H (75-99) mg/dL Hemoglobin A1c (4.2-6.1) % 02/06/17 Range/Units 10:28 WBC (3.8-10.6) k/uL RBC (4.30-5.90) m/uL Hgb (13.0-17.5) gm/dL Hct (39.0-53.0) % Neutrophils # (1.3-7.7) k/uL Lymphocytes # (1.0-4.8) k/uL BUN (9-20) mg/dL Creatinine (0.66-1.25) mg/dL Glucose (74-99) mg/dL POC Glucose (mg/dL) 306 H (75-99) mg/dL Hemoglobin A1c (4.2-6.1) % Assessment and Plan Plan: Impression: #1 Acute exacerbation of chronic obstructive pulmonary disease. #2 History of a left upper lobe nodule measuring 1.9 x 1.6 cm in size, not majorly changed compared to previous computed tomography scan. Previous PET scan did not reveal any significant metabolic activity. Being monitored in the outpatient setting. #3 Coronary artery disease. #4 History of CVA/TIA. #5 Diabetes mellitus, type II. #6 Hypertension. #7 Hyperlipidemia. #8 Benign prostatic hypertrophy. #9 Chronic back pain. Plan: The patient was seen and evaluated by Dr. Snider. He is doing better today as compared to yesterday but not quite back to his baseline. We'll continue with his current medications including bronchodilators, IV Solu-Medrol, antibiotics. We'll increase his activity as tolerated. We'll continue to follow. Probable discharge in the next 24 hours.
[2017-02-06 12:29] LABS: Glucose,Whole Blood 290 mg/dL (75-99)
[2017-02-06] MEDS: INSULIN REGULAR 100 UNIT in SODIUM CHLORIDE 0.9% 100 ML IV SCH ×2 (13:30→23:29)
[2017-02-06 15:00] LABS: Glucose,Whole Blood 187 mg/dL (75-99)
[2017-02-06 16:10] LABS: Glucose,Whole Blood 118 mg/dL (75-99)
[2017-02-06 17:42] LABS: Glucose,Whole Blood 105 mg/dL (75-99)
[2017-02-06] MEDS: methylPREDNISolone SOD SUCCI 40 MG/ML 1 ML VIAL IV SCH ×2 (17:42→23:50)
--- NOTE | 2017-02-06 18:22 | PN ---
DATE OF SERVICE: 02/06/2017 This 71-year-old gentleman who was admitted with COPD acute exacerbation also had possible pneumonia. The patient is being closely monitored. The patient is on IV antibiotics and bronchodilators. The patient is feeling much better. Dr. Snider is following the patient closely as well. Left upper lung nodule is noted. No major changes compared to prior CT scan per Dr. Snider. On exam, alert and oriented x3. Pulse 75, blood pressure 120/72, respirations 16, temperature 97.7, pulse ox 92% on room air. HEENT: Conjunctivae normal. NECK: No JVD. CARDIOVASCULAR: S1 and S2 muffled. LUNGS: Breath sounds diminished in the bases. Few scattered rhonchi and expiratory wheezing present. ABDOMEN: Soft, nontender. EXTREMITIES: No edema. NERVOUS SYSTEM: No focal deficits. LABS: WBC 18.9, glucose 238, creatinine 1.26. ASSESSMENT: 1. Chronic obstructive pulmonary disease acute exacerbation with a possible left upper lobe pneumonia, possibly gram-negative with systemic inflammatory response syndrome. 2. Left upper lobe nodule which is being closely monitored. 3. History of coronary artery disease. 4. History of chronic obstructive pulmonary disease. 5. History of cerebrovascular accident, transient ischemic attack. 6. Diabetes mellitus type 2. 7. History of hypertension, essential. 8. Hyperlipidemia. 9. History of myocardial infarction history of pneumonia. 10. History of prostate disorder and syncope. 11. History of chronic hypoxic respiratory failure, on 2 L nasal cannula. 12. History of diabetes mellitus type 2. 13. History of benign prostatic hypertrophy. 14. History of back surgery. 15. History of cardiac catheterization, treated medically. 16. Anxiety, depression, not otherwise specified. 17. Remote history of nicotine dependence. 18. FULL CODE. RECOMMENDATIONS AND DISCUSSION: This 71-year-old gentleman who presented with multiple complex medical issues, we will monitor the patient closely. Continue the current medications and symptomatic treatment. Otherwise, at this time I would recommend continuing with insulin drip and also recommend to continue the antibiotics and bronchodilators. Closely will follow with Dr. Snider. the dose of the steroids may will be tapered gradually. Further recommendations to follow. Discussed with the patient who understands and agrees.
[2017-02-06 18:51] LABS: Glucose,Whole Blood 142 mg/dL (75-99)
[2017-02-06 20:39] LABS: Glucose,Whole Blood 277 mg/dL (75-99)
[2017-02-06] MEDS: NORTRIPTYLINE 25 MG CAP PO SCH (21:19)
[2017-02-06] MEDS: ATORVASTATIN 20 MG TAB PO SCH (21:19)
[2017-02-06 22:33] LABS: Glucose,Whole Blood 321 mg/dL (75-99)
[2017-02-06] MEDS ORDERED: PANTOPRAZOLE 40 MG TABLET PO STA (23:32)
[2017-02-07 00:31] LABS: Glucose,Whole Blood 315 mg/dL (75-99)
[2017-02-07 02:38] LABS: Glucose,Whole Blood 293 mg/dL (75-99)
[2017-02-07 04:35] LABS: Glucose,Whole Blood 239 mg/dL (75-99)
[2017-02-07 06:27] LABS: Glucose,Whole Blood 186 mg/dL (75-99)
[2017-02-07] MEDS: amLODIPine 5 MG TAB PO SCH (07:37)
[2017-02-07] MEDS: METOPROLOL TARTRATE 25 MG TAB PO SCH ×2 (07:37→21:12)
[2017-02-07] MEDS: PARoxetine 20 MG TAB PO SCH (07:37)
[2017-02-07] MEDS: ISOSORBIDE MONONITRATE ER 30 MG TAB.ER.24H PO SCH (07:38)
[2017-02-07] MEDS: PANTOPRAZOLE 40 MG TABLET PO SCH (07:38)
[2017-02-07] MEDS: ASPIRIN 81 MG CHEW PO SCH (07:38)
[2017-02-07] MEDS: methylPREDNISolone SOD SUCCI 40 MG/ML 1 ML VIAL IV SCH ×2 (07:38→16:31)
[2017-02-07] MEDS: INSULIN LISPRO (humaLOG) 300 UNIT/3 ML VIAL SQ SCH ×3 (07:39→17:44)
[2017-02-07] MEDS: ALPRAZolam 0.25 MG TAB PO SCH ×2 (07:44→21:12)
[2017-02-07] MEDS: IPRATROPIUM-ALBUTEROL 3 ML NEB INHALATION SCH ×4 (07:50→20:30)
[2017-02-07] MEDS: FORMOTEROL FUMARATE 20 MCG/2 ML NEBU INHALATION SCH ×2 (07:50→20:30)
[2017-02-07] MEDS: BUDESONIDE 1 MG/2 ML NEBU INHALATION SCH ×2 (07:50→20:30)
[2017-02-07 08:54] LABS: Glucose,Whole Blood 179 mg/dL (75-99)
[2017-02-07 09:04] LABS: Basophils % (A) 0 %; CH 30.2; CHCM 33.7; Eosinophils % (A) 0 %; HCT 36.7 % (39.0-53.0); HDW 3.13; HGB 12.1 gm/dL (13.0-17.5); Luc # (Auto) 0.05; Luc % (Auto) 0; Lymphocytes # (A) 0.3 k/uL (1.0-4.8); Lymphocytes % (A) 2 %; MCH 29.7 pg (25.0-35.0); MCHC 32.9 g/dL (31.0-37.0); MCV 90.2 fL (80.0-100.0); Mean Platelet Volume 7.4; Monocytes # (A) 0.5 k/uL (0-1.0); Monocytes % (A) 3 %; Neutrophils # (A) 16.7 k/uL (1.3-7.7); Neutrophils % (A) 95 %; RBC 4.07 m/uL (4.30-5.90); RDW 13.5 % (11.5-15.5); WBC 17.6 k/uL (3.8-10.6); WBC (Perox) 19.19
[2017-02-07 09:21] LABS: Anion Gap 12 mmol/L; Blood Urea Nitrogen 44 mg/dL (9-20); Calcium 9.1 mg/dL (8.4-10.2); Carbon Dioxide 24 mmol/L (22-30); Chloride 103 mmol/L (98-107); Glucose 159 mg/dL (74-99); Non-African American GFR(MDRD) 58 (>60 ml/min/1.73 sqM); Potassium 4.9 mmol/L (3.5-5.1); Sodium 139 mmol/L (137-145)
[2017-02-07] MEDS: LISINOPRIL 10 MG TAB PO SCH (09:27)
[2017-02-07] MEDS: TAMSULOSIN 0.4 MG CAP.ER.24H PO SCH (09:27)
[2017-02-07] MEDS: HEPARIN SODIUM,PORCINE 5,000 UNIT/ML 1 ML VIAL SQ SCH ×2 (09:28→21:13)
[2017-02-07 11:02] LABS: Glucose,Whole Blood 220 mg/dL (75-99)
[2017-02-07] MEDS: guaiFENesin 600 MG TABLET.ER PO SCH ×2 (12:15→21:13)
[2017-02-07 13:01] LABS: Glucose,Whole Blood 142 mg/dL (75-99)
[2017-02-07 14:46] LABS: Glucose,Whole Blood 102 mg/dL (75-99)
[2017-02-07 16:01] LABS: Glucose,Whole Blood 110 mg/dL (75-99)
[2017-02-07 16:42] LABS: Glucose,Whole Blood 104 mg/dL (75-99)
[2017-02-07 17:47] LABS: Glucose,Whole Blood 112 mg/dL (75-99)
[2017-02-07 18:52] LABS: Glucose,Whole Blood 177 mg/dL (75-99)
--- NOTE | 2017-02-07 19:52 | P.PN ---
Subjective This is a 71-year-old male patient with known history of COPD and a left suprahilar lesion that is being monitored through his nurse research for quite some time in addition to history of diabetes mellitus, hypertension, hyperlipidemia, coronary artery disease and previous history of CVA. The patient came into the hospital because of few days' worth of increased shortness of breath chest congestion and wheezing and he was found to be in acute COPD exacerbation. Chest x-ray was repeated and showed no abnormalities in the left suprahilar area which was known on previous CAT scan imaging. Note that the patient's most recent CAT scan of the chest was on 01/17/2017 and it showed irregular nodular opacity in the anterior right upper lobe slightly prominent compared to the previous study measuring 6 x 5 mm in size. The suspicious masslike density was again seen in the left upper lobe measuring 1.9 x 1.6 cm in size abutting the mediastinum and a bit more prominent versus the previous studies. No mediastinal lymphadenopathy, yet the study was limited knowing that there was no contrast given. A PET scan done on 07/15/2016 showed no metabolic activity corresponding to the left upper lobe lesion and furthermore there was no suspicious metabolic activity noted in the entire body. As such this was being monitored by serial CAT scan imaging. The patient is seen again today 02/06/2017 in follow-up on the regular medical floor. He is awake and alert in no acute distress. He states he is breathing better today as compared to yesterday but not quite back to his baseline. He remains afebrile. He is maintaining good O2 saturations in the mid 90s on 2 L/ m per nasal cannula. White count 18.9. He is seen again today 02/07/2017 on the regular medical floor. He is sitting up in bed. He denies any worsening shortness of breath, cough or congestion. He is breathing better today as compared to yesterday. He is maintaining good O2 saturations in the mid 90s on room air. He remains afebrile. Objective - Vital Signs Vital signs: Vital Signs Temp 97.5 F L 02/07/17 15:00 Pulse 68 02/07/17 16:43 Resp 16 02/07/17 15:00 BP 128/65 02/07/17 15:00 Pulse Ox 95 02/07/17 15:00 Intake & Output 0402/07/17 02/08/17 06:59 18:59 06:59 Intake Total 277.767 78.777 Balance 277.767 78.777 Intake: IV 38 Insulin Regular 100 unit 38 In Sodium Chloride 0.9% 100 ml @ Titrate IV .Q0M [facility] Rx#:[id number] Intake, IV Titration 77.767 40.777 Amount Insulin Regular 100 unit 77.767 40.777 In Sodium Chloride 0.9% 100 ml @ Titrate IV .Q0M [facility] Rx#:[id number] Oral 200 Other: Voiding Method Toilet Toilet # Voids 1 - Exam GENERAL EXAM: Alert, comfortable in no apparent distress. HEAD: Normocephalic. EYES: Normal reaction of pupils, equal size. NOSE: Clear with pink turbinates. THROAT: No erythema or exudates. NECK: No masses, no JVD. CHEST: No chest wall deformity. LUNGS: Equal air entry with bilateral wheezing, diminished.. CVS: S1 and S2 normal with no audible murmurs, regular rhythm. ABDOMEN: No hepatosplenomegaly, normal bowel sounds, no guarding or rigidity. SPINE: No scoliosis or deformity SKIN: No rashes CENTRAL NERVOUS SYSTEM: No focal deficits, tone is normal in all 4 extremities. Extremities: There is no peripheral edema. No clubbing, no cyanosis. Peripheral pulses are intact. - Labs CBC & Chem 7: 02/07/17 08:17 02/07/17 08:17 Labs: Abnormal Lab Results - Last 24 Hours (Table) 02/06/17 02/06/17 02/07/17 Range/Units 20:38 22:32 00:30 WBC (3.8-10.6) k/uL RBC (4.30-5.90) m/uL Hgb (13.0-17.5) gm/dL Hct (39.0-53.0) % Neutrophils # (1.3-7.7) k/uL Lymphocytes # (1.0-4.8) k/uL BUN (9-20) mg/dL Glucose (74-99) mg/dL POC Glucose (mg/dL) 277 H 321 H 315 H (75-99) mg/dL 02/07/17 02/07/17 02/07/17 Range/Units 02:27 04:24 06:25 WBC (3.8-10.6) k/uL RBC (4.30-5.90) m/uL Hgb (13.0-17.5) gm/dL Hct (39.0-53.0) % Neutrophils # (1.3-7.7) k/uL Lymphocytes # (1.0-4.8) k/uL BUN (9-20) mg/dL Glucose (74-99) mg/dL POC Glucose (mg/dL) 293 H 239 H 186 H (75-99) mg/dL 02/07/17 02/07/17 02/07/17 Range/Units 08:17 08:17 08:34 WBC 17.6 H (3.8-10.6) k/uL RBC 4.07 L (4.30-5.90) m/uL Hgb 12.1 L (13.0-17.5) gm/dL Hct 36.7 L (39.0-53.0) % Neutrophils # 16.7 H (1.3-7.7) k/uL Lymphocytes # 0.3 L (1.0-4.8) k/uL BUN 44 H (9-20) mg/dL Glucose 159 H (74-99) mg/dL POC Glucose (mg/dL) 179 H (75-99) mg/dL 02/07/17 02/07/17 02/07/17 Range/Units 10:41 12:41 14:36 WBC (3.8-10.6) k/uL RBC (4.30-5.90) m/uL Hgb (13.0-17.5) gm/dL Hct (39.0-53.0) % Neutrophils # (1.3-7.7) k/uL Lymphocytes # (1.0-4.8) k/uL BUN (9-20) mg/dL Glucose (74-99) mg/dL POC Glucose (mg/dL) 220 H 142 H 102 H (75-99) mg/dL 02/07/17 02/07/17 02/07/17 Range/Units 15:41 16:40 17:33 WBC (3.8-10.6) k/uL RBC (4.30-5.90) m/uL Hgb (13.0-17.5) gm/dL Hct (39.0-53.0) % Neutrophils # (1.3-7.7) k/uL Lymphocytes # (1.0-4.8) k/uL BUN (9-20) mg/dL Glucose (74-99) mg/dL POC Glucose (mg/dL) 110 H 104 H 112 H (75-99) mg/dL 02/07/17 Range/Units 18:31 WBC (3.8-10.6) k/uL RBC (4.30-5.90) m/uL Hgb (13.0-17.5) gm/dL Hct (39.0-53.0) % Neutrophils # (1.3-7.7) k/uL Lymphocytes # (1.0-4.8) k/uL BUN (9-20) mg/dL Glucose (74-99) mg/dL POC Glucose (mg/dL) 177 H (75-99) mg/dL Microbiology - Last 24 Hours (Table) 02/05/17 21:15 Gram Stain - Preliminary Sputum Sputum Culture - Preliminary Assessment and Plan Plan: Impression: #1 Acute exacerbation of chronic obstructive pulmonary disease. #2 History of a left upper lobe nodule measuring 1.9 x 1.6 cm in size, not majorly changed compared to previous computed tomography scan. Previous PET scan did not reveal any significant metabolic activity. Being monitored in the outpatient setting. #3 Coronary artery disease. #4 History of CVA/TIA. #5 Diabetes mellitus, type II. #6 Hypertension. #7 Hyperlipidemia. #8 Benign prostatic hypertrophy. #9 Chronic back pain. Plan: The patient was seen and evaluated by Dr. Snider. We'll continue with his current medications including bronchodilators, IV Solu-Medrol, antibiotics. We' ll increase his activity as tolerated. We'll continue to follow. Most likely discharge in a.m.
[2017-02-07 20:36] LABS: Glucose,Whole Blood 204 mg/dL (75-99)
--- NOTE | 2017-02-07 20:44 | PN ---
DATE OF SERVICE: 02/07/2017 This 71-year-old gentleman who was admitted with COPD acute exacerbation still has significant shortness of breath and cough. Also Dr. Snider is following the patient. The patient on bronchodilators and steroids. No chest pain or palpitations. No fever. On exam, alert and oriented times three. Pulse 72, blood pressure 120/62, respiratory rate 16, temperature 97.4, pulse ox is 94% on room air. HEENT: Conjunctivae normal. Oral mucosa moist. NECK: No jugular venous distention. No carotid bruit. No lymph node enlargement. CARDIOVASCULAR: S1, S2 muffled. RESPIRATORY: Breath sounds diminished in the bases. Bilateral scattered rhonchi and expiratory wheezing and crackles. ABDOMEN: Soft. Nontender. LEGS: No edema. No swelling. Nervous system: No focal deficits. LABS: Accu-Cheks 110 and 104, WBC 7, hemoglobin is 12.1, glucose 104. ASSESSMENT: 1. Chronic obstructive pulmonary disease, acute exacerbation with possible left upper lobe pneumonia, possibly gram-negative with severe acute respiratory syndrome. 2. Left upper lobe nodule which is being closely monitored. 3. History of coronary artery disease. 4. History of chronic obstructive pulmonary disease. 5. History of cerebrovascular accident, transient ischemic attack. 6. Diabetes type 2. 7. Hypertension, essential. 8. Hyperlipidemia. 9. History of myocardial infarction. 10. History of pneumonia. 11. History of prostate disorder. 12. Syncope. 13. History of chronic hypoxic respiratory failure, on 3 liters nasal cannula. 14. History of diabetes mellitus type 2. 15. History of benign prostatic hypertrophy. 16. History of back surgery. 17. History of cardiac catheterization treated medically. 18. Anxiety, depression, not otherwise specified. 19. Remote history of nicotine dependence. 20. FULL CODE. RECOMMENDATIONS AND DISCUSSION: Recommend to continue current medications, continue with monitoring. Symptomatic treatment . Otherwise, at this time, I would recommend continue the bronchodilators, steroids. Closely follow with Dr. Snider. We will discuss with Dr. Snider. Guarded prognosis. Further recommendations to follow.
[2017-02-07] MEDS: ATORVASTATIN 20 MG TAB PO SCH (21:12)
[2017-02-07] MEDS: NORTRIPTYLINE 25 MG CAP PO SCH (21:13)
[2017-02-07 22:56] LABS: Glucose,Whole Blood 298 mg/dL (75-99)
[2017-02-07] MEDS: INSULIN REGULAR 100 UNIT in SODIUM CHLORIDE 0.9% 100 ML IV SCH (23:02)
[2017-02-08 00:29] LABS: Glucose,Whole Blood 272 mg/dL (75-99)
[2017-02-08] MEDS: methylPREDNISolone SOD SUCCI 40 MG/ML 1 ML VIAL IV SCH ×2 (00:32→07:54)
[2017-02-08 02:39] LABS: Glucose,Whole Blood 238 mg/dL (75-99)
[2017-02-08 05:05] LABS: Glucose,Whole Blood 221 mg/dL (75-99)
[2017-02-08 06:59] LABS: Glucose,Whole Blood 189 mg/dL (75-99)
[2017-02-08 07:45] LABS: Basophils % (A) 0 %; CH 30.1; CHCM 33.7; Eosinophils % (A) 0 %; HCT 37.9 % (39.0-53.0); HGB 13.3 gm/dL (13.0-17.5); Luc # (Auto) 0.04; Luc % (Auto) 0; Lymphocytes # (A) 0.2 k/uL (1.0-4.8); Lymphocytes % (A) 2 %; MCH 31.5 pg (25.0-35.0); MCV 89.8 fL (80.0-100.0); Mean Platelet Volume 7.8; Monocytes # (A) 0.4 k/uL (0-1.0); Monocytes % (A) 3 %; Neutrophils # (A) 10.9 k/uL (1.3-7.7); Neutrophils % (A) 95 %; RBC 4.22 m/uL (4.30-5.90); RDW 13.3 % (11.5-15.5); WBC 11.6 k/uL (3.8-10.6); WBC (Perox) 12.28
[2017-02-08] MEDS: INSULIN LISPRO (humaLOG) 300 UNIT/3 ML VIAL SQ SCH ×6 (07:48→21:31)
[2017-02-08] MEDS: guaiFENesin 600 MG TABLET.ER PO SCH ×2 (07:50→21:31)
[2017-02-08] MEDS: HEPARIN SODIUM,PORCINE 5,000 UNIT/ML 1 ML VIAL SQ SCH ×2 (07:51→21:31)
[2017-02-08] MEDS: amLODIPine 5 MG TAB PO SCH (07:52)
[2017-02-08] MEDS: ASPIRIN 81 MG CHEW PO SCH (07:52)
[2017-02-08] MEDS: ISOSORBIDE MONONITRATE ER 30 MG TAB.ER.24H PO SCH (07:53)
[2017-02-08] MEDS: LISINOPRIL 10 MG TAB PO SCH (07:53)
[2017-02-08] MEDS: TAMSULOSIN 0.4 MG CAP.ER.24H PO SCH (07:53)
[2017-02-08] MEDS: PANTOPRAZOLE 40 MG TABLET PO SCH (07:53)
[2017-02-08] MEDS: METOPROLOL TARTRATE 25 MG TAB PO SCH ×2 (07:53→21:31)
[2017-02-08] MEDS: PARoxetine 20 MG TAB PO SCH (07:54)
[2017-02-08 07:56] LABS: Anion Gap 9 mmol/L; Blood Urea Nitrogen 37 mg/dL (9-20); Carbon Dioxide 22 mmol/L (22-30); Chloride 107 mmol/L (98-107); Glucose 185 mg/dL (74-99); Non-African American GFR(MDRD) >60 (>60 ml/min/1.73 sqM); Potassium 4.8 mmol/L (3.5-5.1); Sodium 138 mmol/L (137-145)
[2017-02-08] MEDS: ALPRAZolam 0.25 MG TAB PO SCH ×2 (08:05→21:31)
[2017-02-08] MEDS: FORMOTEROL FUMARATE 20 MCG/2 ML NEBU INHALATION SCH ×2 (08:27→20:32)
[2017-02-08] MEDS: BUDESONIDE 1 MG/2 ML NEBU INHALATION SCH ×2 (08:27→20:32)
[2017-02-08] MEDS: IPRATROPIUM-ALBUTEROL 3 ML NEB INHALATION SCH ×4 (08:27→20:32)
[2017-02-08 09:15] LABS: Glucose,Whole Blood 277 mg/dL (75-99)
[2017-02-08] MEDS ORDERED: INSULIN GLARGINE 100 UNIT/ML 10 ML VIAL SQ ONE (11:00)
[2017-02-08 11:17] LABS: Glucose,Whole Blood 201 mg/dL (75-99)
[2017-02-08] MEDS: predniSONE 20 MG TAB PO SCH ×2 (11:25→11:26)
[2017-02-08 12:52] LABS: Glucose,Whole Blood 158 mg/dL (75-99)
[2017-02-08 16:43] LABS: Glucose,Whole Blood 193 mg/dL (75-99)
--- NOTE | 2017-02-08 17:18 | P.PN ---
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 The patient came into the hospital because of few days' worth of increased shortness of breath chest congestion and wheezing and he was found to be in acute COPD exacerbation. Chest x-ray was repeated and showed no abnormalities in the left suprahilar area which was known on previous CAT scan imaging. Note that the patient's most recent CAT scan of the chest was on 01/17/2017 and it showed irregular nodular opacity in the anterior right upper lobe slightly prominent compared to the previous study measuring 6 x 5 mm in size. The suspicious masslike density was again seen in the left upper lobe measuring 1.9 x 1.6 cm in size abutting the mediastinum and a bit more prominent versus the previous studies. No mediastinal lymphadenopathy, yet the study was limited knowing that there was no contrast given. A PET scan done on 07/15/2016 showed no metabolic activity corresponding to the left upper lobe lesion and furthermore there was no suspicious metabolic activity noted in the entire body. As such this was being monitored by serial CAT scan imaging. The patient is seen again today 02/06/2017 in follow-up on the regular medical floor. He is awake and alert in no acute distress. He states he is breathing better today as compared to yesterday but not quite back to his baseline. He remains afebrile. He is maintaining good O2 saturations in the mid 90s on 2 L/ m per nasal cannula. White count 18.9. He is seen again today 02/07/2017 on the regular medical floor. He is sitting up in bed. He denies any worsening shortness of breath, cough or congestion. He is breathing better today as compared to yesterday. He is maintaining good O2 saturations in the mid 90s on room air. He remains afebrile. The patient is seen again today in follow-up 02/08/2017. He is awake and alert in no acute distress. He is doing much better. He is nearly back to his baseline. He is hoping to go home in the morning. He is maintaining good O2 saturations in the 90s on room air. He's been afebrile. Blood, urine and sputum cultures reveal no growth. Objective - Vital Signs Vital signs: Vital Signs Temp 97.6 F 02/08/17 07:00 Pulse 72 02/08/17 16:35 Resp 20 02/08/17 07:00 BP 149/78 02/08/17 07:00 Pulse Ox 96 02/08/17 07:00 Intake & Output 02/07/17 02/08/17 02/08/17 18:59 06:59 18:59 Intake Total 78.777 39.891 112.650 Balance 78.777 39.891 112.650 Weight 92.986 kg Intake: IV 38 Insulin Regular 100 unit 38 In Sodium Chloride 0.9% 100 ml @ Titrate IV .Q0M [facility] Rx#:[id number] Intake, IV Titration 40.777 39.891 112.650 Amount Insulin Regular 100 unit 40.777 39.891 12.650 In Sodium Chloride 0.9% 100 ml @ Titrate IV .Q0M [facility] Rx#:[id number] cefTRIAXone 1,000 mg In 100 Sodium Chloride 0.9% 50 ml @ 100 mls/hr IVPB Q24HR [facility] Rx#:[id number] Other: Voiding Method Toilet Toilet Toilet # Voids 1 1 - Exam GENERAL EXAM: Alert, comfortable in no apparent distress. HEAD: Normocephalic. EYES: Normal reaction of pupils, equal size. NOSE: Clear with pink turbinates. THROAT: No erythema or exudates. NECK: No masses, no JVD. CHEST: No chest wall deformity. LUNGS: Equal air entry with bilateral wheezing, diminished.. CVS: S1 and S2 normal with no audible murmurs, regular rhythm. ABDOMEN: No hepatosplenomegaly, normal bowel sounds, no guarding or rigidity. SPINE: No scoliosis or deformity SKIN: No rashes CENTRAL NERVOUS SYSTEM: No focal deficits, tone is normal in all 4 extremities. Extremities: There is no peripheral edema. No clubbing, no cyanosis. Peripheral pulses are intact. - Labs CBC & Chem 7: 02/08/17 07:09 02/08/17 07:09 Labs: Abnormal Lab Results - Last 24 Hours (Table) 02/07/17 02/07/17 02/07/17 Range/Units 17:33 18:31 20:34 WBC (3.8-10.6) k/uL RBC (4.30-5.90) m/uL Hct (39.0-53.0) % Neutrophils # (1.3-7.7) k/uL Lymphocytes # (1.0-4.8) k/uL BUN (9-20) mg/dL Glucose (74-99) mg/dL POC Glucose (mg/dL) 112 H 177 H 204 H (75-99) mg/dL 02/07/17 02/08/17 02/08/17 Range/Units 22:44 00:27 02:37 WBC (3.8-10.6) k/uL RBC (4.30-5.90) m/uL Hct (39.0-53.0) % Neutrophils # (1.3-7.7) k/uL Lymphocytes # (1.0-4.8) k/uL BUN (9-20) mg/dL Glucose (74-99) mg/dL POC Glucose (mg/dL) 298 H 272 H 238 H (75-99) mg/dL 02/08/17 02/08/17 02/08/17 Range/Units 05:00 06:56 07:09 WBC 11.6 H (3.8-10.6) k/uL RBC 4.22 L (4.30-5.90) m/uL Hct 37.9 L (39.0-53.0) % Neutrophils # 10.9 H (1.3-7.7) k/uL Lymphocytes # 0.2 L (1.0-4.8) k/uL BUN (9-20) mg/dL Glucose (74-99) mg/dL POC Glucose (mg/dL) 221 H 189 H (75-99) mg/dL 02/08/17 02/08/17 02/08/17 Range/Units 07:09 09:10 11:13 WBC (3.8-10.6) k/uL RBC (4.30-5.90) m/uL Hct (39.0-53.0) % Neutrophils # (1.3-7.7) k/uL Lymphocytes # (1.0-4.8) k/uL BUN 37 H (9-20) mg/dL Glucose 185 H (74-99) mg/dL POC Glucose (mg/dL) 277 H 201 H (75-99) mg/dL 02/08/17 02/08/17 Range/Units 12:46 16:38 WBC (3.8-10.6) k/uL RBC (4.30-5.90) m/uL Hct (39.0-53.0) % Neutrophils # (1.3-7.7) k/uL Lymphocytes # (1.0-4.8) k/uL BUN (9-20) mg/dL Glucose (74-99) mg/dL POC Glucose (mg/dL) 158 H 193 H (75-99) mg/dL Microbiology - Last 24 Hours (Table) 02/05/17 21:15 Gram Stain - Final Sputum Sputum Culture - Final Assessment and Plan Plan: Impression: #1 Acute exacerbation of chronic obstructive pulmonary disease. #2 History of a left upper lobe nodule measuring 1.9 x 1.6 cm in size, not majorly changed compared to previous computed tomography scan. Previous PET scan did not reveal any significant metabolic activity. Being monitored in the outpatient setting. #3 Coronary artery disease. #4 History of CVA/TIA. #5 Diabetes mellitus, type II. #6 Hypertension. #7 Hyperlipidemia. #8 Benign prostatic hypertrophy. #9 Chronic back pain. Plan: The patient was seen and evaluated by Dr. Snider. He is nearly back to his baseline. We'll continue with his current medications including bronchodilators , prednisone taper, antibiotics. We'll increase his activity as tolerated. We' ll continue to follow. Most likely discharge in a.m.
[2017-02-08 20:14] LABS: Glucose,Whole Blood 322 mg/dL (75-99)
[2017-02-08] MEDS ORDERED: INSULIN GLARGINE 100 UNIT/ML 10 ML VIAL SQ SCH (21:00)
[2017-02-08] MEDS: ATORVASTATIN 20 MG TAB PO SCH (21:31)
[2017-02-08] MEDS: NORTRIPTYLINE 25 MG CAP PO SCH (21:31)
--- NOTE | 2017-02-08 22:49 | PN ---
DATE OF SERVICE: 02/08/2017 This 71-year-old gentleman who was admitted with COPD acute exacerbation status post pneumonia is being closely monitored. Blood sugars are, uncontrolled. No chest pain. No palpitations. No fever. On exam, alert and oriented times three. Pulse 75, blood pressure is 149/70. Respiratory rate 28. Temperature 97.7, pulse ox 97% on room air. HEENT: Conjunctivae normal. NECK: No jugular venous distention. CARDIOVASCULAR: S1, S2 muffled. RESPIRATORY: Breath sounds diminished at the base. Bilateral scattered rhonchi and crackles. ABDOMEN: Soft, nontender. LEGS: No edema. No swelling. CENTRAL NERVOUS SYSTEM: No focal deficits. LABS: WBC 11.3, hemoglobin 13.3. ASSESSMENT: 1. Chronic obstructive pulmonary disease, acute exacerbation with possible left upper lobe pneumonia, possibly gram-negative with systemic inflammatory response syndrome. 2. Left upper lobe nodule which is being closely monitored in the outpatient setting. 3. History of coronary artery disease. 4. History of chronic obstructive pulmonary disease, history of cerebrovascular accident, transient ischemic attack. 5. Diabetes mellitus type 2. 6. Hypertension, essential. 7. Hyperlipidemia. 8. History of myocardial infarction. 9. History of pneumonia. 10. History of prostate disorder. 11. Syncope. 12. Chronic hypoxic respiratory failure on 3 liters nasal cannula in outpatient. 13. History of diabetes mellitus type 2. 14. History of benign prostatic hypertrophy. 15. History of back surgery. 16. History of cardiac catheterization. Treated medically. 17. Anxiety, depression, not otherwise specified. 18. Remote history of nicotine dependence. 19. FULL CODE. RECOMMENDATIONS AND DISCUSSION: In this 71-year-old gentleman who presented with multiple complex medical issues, we will monitor the patient closely. Continue the current treatment. Continue symptomatic treatment. Otherwise, at this time, taper the steroids. insulin dosage adjustments. Further recommendations to follow. MTDD
[2017-02-09 02:01] LABS: Glucose,Whole Blood 372 mg/dL (75-99)
[2017-02-09] MEDS: INSULIN LISPRO (humaLOG) 300 UNIT/3 ML VIAL SQ SCH ×3 (02:16→10:09)
[2017-02-09 06:53] LABS: Glucose,Whole Blood 259 mg/dL (75-99)
[2017-02-09 07:37] VITALS: BP 154/86; RESP 18; TEMP 96.5
[2017-02-09 08:23] LABS: Anion Gap 10 mmol/L; Blood Urea Nitrogen 33 mg/dL (9-20); Calcium 9.1 mg/dL (8.4-10.2); Carbon Dioxide 22 mmol/L (22-30); Chloride 108 mmol/L (98-107); Glucose 212 mg/dL (74-99); Non-African American GFR(MDRD) 58 (>60 ml/min/1.73 sqM); Potassium 4.6 mmol/L (3.5-5.1); Sodium 140 mmol/L (137-145)
[2017-02-09 08:41] LABS: Basophils % (A) 0 %; CH 30.1; CHCM 33.1; Eosinophils % (A) 0 %; HCT 38.6 % (39.0-53.0); HDW 3.05; HGB 13.2 gm/dL (13.0-17.5); Luc # (Auto) 0.13; Luc % (Auto) 1; Lymphocytes # (A) 0.5 k/uL (1.0-4.8); Lymphocytes % (A) 5 %; MCH 31.3 pg (25.0-35.0); MCHC 34.3 g/dL (31.0-37.0); MCV 91.3 fL (80.0-100.0); Mean Platelet Volume 7.6; Monocytes # (A) 0.6 k/uL (0-1.0); Monocytes % (A) 5 %; Neutrophils # (A) 9.6 k/uL (1.3-7.7); Neutrophils % (A) 89 %; RBC 4.23 m/uL (4.30-5.90); RDW 13.4 % (11.5-15.5); WBC 10.8 k/uL (3.8-10.6); WBC (Perox) 10.55
[2017-02-09] MEDS: IPRATROPIUM-ALBUTEROL 3 ML NEB INHALATION SCH ×2 (08:44→11:55)
[2017-02-09] MEDS: BUDESONIDE 1 MG/2 ML NEBU INHALATION SCH (08:44)
[2017-02-09] MEDS: FORMOTEROL FUMARATE 20 MCG/2 ML NEBU INHALATION SCH (08:44)
[2017-02-09] MEDS: METOPROLOL TARTRATE 25 MG TAB PO SCH (10:06)
[2017-02-09] MEDS: ISOSORBIDE MONONITRATE ER 30 MG TAB.ER.24H PO SCH (10:06)
[2017-02-09] MEDS: LISINOPRIL 10 MG TAB PO SCH (10:06)
[2017-02-09] MEDS: PANTOPRAZOLE 40 MG TABLET PO SCH (10:06)
[2017-02-09] MEDS: guaiFENesin 600 MG TABLET.ER PO SCH (10:06)
[2017-02-09] MEDS: TAMSULOSIN 0.4 MG CAP.ER.24H PO SCH (10:06)
[2017-02-09] MEDS: ASPIRIN 81 MG CHEW PO SCH (10:06)
[2017-02-09] MEDS: ALPRAZolam 0.25 MG TAB PO SCH (10:06)
[2017-02-09] MEDS: amLODIPine 5 MG TAB PO SCH (10:06)
[2017-02-09] MEDS: HEPARIN SODIUM,PORCINE 5,000 UNIT/ML 1 ML VIAL SQ SCH (10:07)
[2017-02-09] MEDS: PARoxetine 20 MG TAB PO SCH (10:09)
[2017-02-09 11:22] LABS: Glucose,Whole Blood 278 mg/dL (75-99)
[2017-02-09 11:56] VITALS: PULSE 76
--- NOTE | 2017-02-09 14:13 | P.PN ---
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 The patient came into the hospital because of few days' worth of increased shortness of breath chest congestion and wheezing and he was found to be in acute COPD exacerbation. Chest x-ray was repeated and showed no abnormalities in the left suprahilar area which was known on previous CAT scan imaging. Note that the patient's most recent CAT scan of the chest was on 01/17/2017 and it showed irregular nodular opacity in the anterior right upper lobe slightly prominent compared to the previous study measuring 6 x 5 mm in size. The suspicious masslike density was again seen in the left upper lobe measuring 1.9 x 1.6 cm in size abutting the mediastinum and a bit more prominent versus the previous studies. No mediastinal lymphadenopathy, yet the study was limited knowing that there was no contrast given. A PET scan done on 07/15/2016 showed no metabolic activity corresponding to the left upper lobe lesion and furthermore there was no suspicious metabolic activity noted in the entire body. As such this was being monitored by serial CAT scan imaging. The patient is seen again today 02/06/2017 in follow-up on the regular medical floor. He is awake and alert in no acute distress. He states he is breathing better today as compared to yesterday but not quite back to his baseline. He remains afebrile. He is maintaining good O2 saturations in the mid 90s on 2 L/ m per nasal cannula. White count 18.9. He is seen again today 02/07/2017 on the regular medical floor. He is sitting up in bed. He denies any worsening shortness of breath, cough or congestion. He is breathing better today as compared to yesterday. He is maintaining good O2 saturations in the mid 90s on room air. He remains afebrile. The patient is seen again today in follow-up 02/08/2017. He is awake and alert in no acute distress. He is doing much better. He is nearly back to his baseline. He is hoping to go home in the morning. He is maintaining good O2 saturations in the 90s on room air. He's been afebrile. Blood, urine and sputum cultures reveal no growth. He is seen again today 02/09/2017 in follow-up on the regular medical floor. He remains awake and alert in no acute distress. He has been more ambulatory. He states he is nearly back to his baseline. He is anxious to go home. No worsening shortness of breath, cough or congestion. He continues to maintain good O2 saturations in the mid to upper 90s on room air. Objective - Vital Signs Vital signs: Vital Signs Temp 96.5 F L 02/09/17 07:00 Pulse 76 02/09/17 12:00 Resp 18 02/09/17 08:00 BP 154/86 02/09/17 07:00 Pulse Ox 96 02/09/17 08:45 Intake & Output 02/08/17 02/09/17 02/09/17 18:59 06:59 18:59 Intake Total 112.650 Balance 112.650 Weight 92.986 kg Intake: Intake, IV Titration 112.650 Amount Insulin Regular 100 unit 12.650 In Sodium Chloride 0.9% 100 ml @ Titrate IV .Q0M NI Rx#:[id number] cefTRIAXone 1,000 mg In 100 Sodium Chloride 0.9% 50 ml @ 100 mls/hr IVPB Q24HR NI Rx#:[id number] Other: Voiding Method Toilet Toilet Toilet # Voids 1 1 - Exam GENERAL EXAM: Alert, comfortable in no apparent distress. HEAD: Normocephalic. EYES: Normal reaction of pupils, equal size. NOSE: Clear with pink turbinates. THROAT: No erythema or exudates. NECK: No masses, no JVD. CHEST: No chest wall deformity. LUNGS: Equal air entry with bilateral wheezing, diminished.. CVS: S1 and S2 normal with no audible murmurs, regular rhythm. ABDOMEN: No hepatosplenomegaly, normal bowel sounds, no guarding or rigidity. SPINE: No scoliosis or deformity SKIN: No rashes CENTRAL NERVOUS SYSTEM: No focal deficits, tone is normal in all 4 extremities. Extremities: There is no peripheral edema. No clubbing, no cyanosis. Peripheral pulses are intact. - Labs CBC & Chem 7: 02/09/17 07:42 02/09/17 07:42 Labs: Abnormal Lab Results - Last 24 Hours (Table) 02/08/17 02/08/17 02/09/17 Range/Units 16:38 20:06 01:59 WBC (3.8-10.6) k/uL RBC (4.30-5.90) m/uL Hct (39.0-53.0) % Neutrophils # (1.3-7.7) k/uL Lymphocytes # (1.0-4.8) k/uL Chloride (98-107) mmol/L BUN (9-20) mg/dL Glucose (74-99) mg/dL POC Glucose (mg/dL) 193 H 322 H 372 H (75-99) mg/dL 02/09/17 02/09/17 02/09/17 Range/Units 06:44 07:42 07:42 WBC 10.8 H (3.8-10.6) k/uL RBC 4.23 L (4.30-5.90) m/uL Hct 38.6 L (39.0-53.0) % Neutrophils # 9.6 H (1.3-7.7) k/uL Lymphocytes # 0.5 L (1.0-4.8) k/uL Chloride 108 H (98-107) mmol/L BUN 33 H (9-20) mg/dL Glucose 212 H (74-99) mg/dL POC Glucose (mg/dL) 259 H (75-99) mg/dL 02/09/17 Range/Units 11:12 WBC (3.8-10.6) k/uL RBC (4.30-5.90) m/uL Hct (39.0-53.0) % Neutrophils # (1.3-7.7) k/uL Lymphocytes # (1.0-4.8) k/uL Chloride (98-107) mmol/L BUN (9-20) mg/dL Glucose (74-99) mg/dL POC Glucose (mg/dL) 278 H (75-99) mg/dL Assessment and Plan Plan: Impression: #1 Acute exacerbation of chronic obstructive pulmonary disease. #2 History of a left upper lobe nodule measuring 1.9 x 1.6 cm in size, not majorly changed compared to previous computed tomography scan. Previous PET scan did not reveal any significant metabolic activity. Being monitored in the outpatient setting. #3 Coronary artery disease. #4 History of CVA/TIA. #5 Diabetes mellitus, type II. #6 Hypertension. #7 Hyperlipidemia. #8 Benign prostatic hypertrophy. #9 Chronic back pain. Plan: The patient was seen and evaluated by Dr. Snider. He is cleared for discharge from the pulmonary standpoint. Continue his home pulmonary medications including a prednisone taper. He'll follow-up in our office in 1-2 weeks' time. He is however encouraged to call sooner with any recurrence of symptoms or other questions or concerns.
--- NOTE | 2017-02-10 09:08 | DS ---
DATE OF ADMISSION: 02/05/2017 DATE OF DISCHARGE: 02/09/2017 FINAL DIAGNOSES: 1. Chronic obstructive pulmonary disease, acute exacerbation, with a possible left pneumonia, possibly gram-negative with severe acute respiratory syndrome. Possible bronchopneumonia. 2. Left upper nodule with being closely monitored in the outpatient setting. 3. History of coronary artery disease. 4. History of chronic obstructive pulmonary disease. 5. History of cerebrovascular accident, transient ischemic attack. 6. Diabetes mellitus type 2. 7. Hypertension, essential. 8. Hyperlipidemia. 9. History of myocardial infarction. 10. History of pneumonia. 11. History of prostate disorder. 12. History of syncope. 13. History of chronic hypoxic respiratory failure on 3 L nasal cannula as an outpatient. 14. History of diabetes mellitus type 2. 15. History of benign prostatic hypertrophy. 16. History of back surgery. 17. History of cardiac catheterization, treated medically. 18. Anxiety, depression, not otherwise specified. 19. Remote history of nicotine dependence. 20. FULL CODE. DISCHARGE DISPOSITION: The patient will be discharged in a stable condition with guarded prognosis. HISTORY OF PRESENT ILLNESS: This 71-year-old gentleman with a past medical history of multiple medical problems being followed by Dr. Boyer in the outpatient setting admitted to the hospital with chronic obstructive pulmonary disease and possible pneumonia also. Treated with bronchodilators, antibiotics. The patient improved significantly. On exam, vitals are stable. CARDIOVASCULAR SYSTEM: S1, S2 muffled. ABDOMEN: Soft. Nervous system: No focal deficits. The patient has also left upper nodule which is being followed closely and Accu-Cheks are elevated. DISCHARGE ADVICE AND MEDICATIONS: 1. Diet is cardiac 1800 ADA diet. 2. Activity limited until follow-up. 3. Follow-up with Dr. Boyer in 2 to 3 days. 4. Continued follow-up. 5. Medications are Xanax 0.5. P.o. b.i.d. 6. Proventil HFA 1 to 2 p.r.n. 7. Aspirin 81 mg daily. 8. Symbicort 160/4.5 2 puffs b.i.d. 9. Ceftin 500 mg p.o. b.i.d. for 5 days. 10. Plavix 75 milligrams p.o. daily. 11. Novolin 8 units subcu t.i.d. 12. Levemir 67 units q.h.s. 13. Albuterol Atrovent updrafts q.i.d. and p.r.n. 14. Imdur ER 30 mg p.o. daily. 15. Zestril 10 mg p.o. daily. 16. Lopressor 25 mg p.o. b.i.d. 17. Pamelor 25 mg p.o. q.h.s. 18. Paxil 20 mg p.o. daily. 19. Zocor 40 mg q.h.s. 20. Flomax 0.4 daily. 21. Norvasc 5 mg p.o. daily. 22. Prednisone taper that is 40 mg daily for 3 days, 30 for 3 days, 20 for 3 days, 10 for 3 days and discontinue. Once again, the patient will be discharged in a stable condition with guarded prognosis.
== END 2017-02-09 14:15 | disposition home or self-care (01) | DRG 190 ==
LOC: EC 03:39 → 5MS5E 06:02
PROVIDERS: ADMIT Internal Medicine; ATTEND Internal Medicine
DX: J44.0 Chronic obstructive pulmonary disease with (acute) lower respiratory infection (principal); J15.6 Pneumonia due to other Gram-negative bacteria; J96.11 Chronic respiratory failure with hypoxia; Z99.81 Dependence on supplemental oxygen; E11.9 Type 2 diabetes mellitus without complications; J45.901 Unspecified asthma with (acute) exacerbation; J44.1 Chronic obstructive pulmonary disease with (acute) exacerbation; I10 Essential (primary) hypertension; F32.9 Major depressive disorder, single episode, unspecified; E78.5 Hyperlipidemia, unspecified; F41.9 Anxiety disorder, unspecified; G89.29 Other chronic pain; I25.10 Atherosclerotic heart disease of native coronary artery without angina pectoris; R91.1 Solitary pulmonary nodule; M54.9 Dorsalgia, unspecified; N40.0 Benign prostatic hyperplasia without lower urinary tract symptoms; Z79.02 Long term (current) use of antithrombotics/antiplatelets; I25.2 Old myocardial infarction; Z79.4 Long term (current) use of insulin; Z79.82 Long term (current) use of aspirin; Z79.899 Other long term (current) drug therapy; Z86.73 Personal history of transient ischemic attack (TIA), and cerebral infarction without residual deficits; Z87.01 Personal history of pneumonia (recurrent); Z87.891 Personal history of nicotine dependence; Z88.1 Allergy status to other antibiotic agents
CPT/HCPCS: 36415; 71020; 80048; 80053; 81001; 83036; 83605; 85025; 85610; 85730; 87040; 87070; 87086; 87205; 87502; 93005; 94640; 94760; 96365; 96375; 99291

== ENCOUNTER 2017-07-01 15:12 | Emergency (ER) | payer MEDICARE, OTHER ==
[2017-07-01 15:22] VITALS: TEMP 98.2
--- NOTE | 2017-07-01 15:39 | ED ---
General Adult HPI - General Chief complaint: Extremity Injury, Lower Stated complaint: Fall/shoulder pain Time Seen by Provider: 07/01/17 15:26 Source: patient, family, RN notes reviewed, old records reviewed Mode of arrival: ambulatory Limitations: no limitations - History of Present Illness Initial comments: Chief complaint history of present illness this is a 71-year-old male to complaint of pain to his right shoulder rotator cuff area. 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 Slipped on the floor reached out and grabbed the chair and strain the anterior part of his right shoulder. Patient denies any other injuries to the head neck back and legs. No deficits. - Related Data Home Medications Medication Instructions Recorded Confirmed Albuterol Sulfate [Proventil Hfa] 1 - 2 puff INHALATION RT-Q6H PRN 07/09/14 Insulin Detemir [Levemir] 67 unit SQ HS 07/09/14 07/01/17 Isosorbide Mononitrate ER [Imdur] 30 mg PO DAILY 07/09/14 07/01/17 Lisinopril [Zestril] 10 mg PO DAILY 07/09/14 07/01/17 Metoprolol Tartrate [Lopressor] 25 mg PO BID 07/09/14 07/01/17 Simvastatin [Zocor] 40 mg PO HS 07/09/14 07/01/17 amLODIPine [Norvasc] 5 mg PO DAILY 07/09/14 07/01/17 Budesonide-Formot 160-4.5 Mcg 2 puff INHALATION RT-BID PRN 11/15/14 07/01/17 [Symbicort 160-4.5 Mcg Inhaler] Nortriptyline [Pamelor] 25 mg PO HS 11/15/14 07/01/17 PARoxetine [Paxil] 20 mg PO DAILY 11/15/14 07/01/17 ALPRAZolam 0.25 mg PO BID 10/03/15 07/01/17 Clopidogrel Bisulfate [Plavix] 75 mg PO DAILY 02/05/17 07/01/17 Tamsulosin HCl [Flomax] 0.4 mg PO DAILY 02/05/17 07/01/17 Acetaminophen Tab [Tylenol Tab] 500 - 1,000 mg PO TID PRN 07/01/17 07/01/17 Ibuprofen [Motrin] 600 mg PO Q8HR PRN 07/01/17 07/01/17 traMADol HCL [Ultram] 50 mg PO Q8H PRN 07/01/17 07/01/17 Previous Rx's Medication Instructions Recorded Aspirin 81 mg PO DAILY #30 chewable 10/04/15 Ipratropium-Albuterol Nebulize 3 ml INHALATION RT-QID #120 02/09/17 [Duoneb 0.5 mg-3 mg/3 ml Soln] ampul.neb Ibuprofen [Motrin] 600 mg PO Q6HR PRN #20 tab 07/01/17 Allergies Allergy/AdvReac Type Severity Reaction Status Date / Time levofloxacin [From Levaquin] Allergy Rash/Hives Verified 07/01/17 15:22 Review of Systems ROS Statement: Those systems with pertinent positive or pertinent negative responses have been documented in the HPI. Review of systems denies any headache chest pain shortness breath GI/ problems no neuro deficits. His pain to the right shoulder. All systems are reviewed. Past medical problems significant for CA, COPD, insulin-dependent diabetes mellitus, hypertension, hyperlipidemia, pneumonia, BPH, previous syncopal episodes. His surgeries include back surgery for disc. Cholecystectomy, heart catheterization withstents placed. Umbilical hernia repair. Family history no cancers. Patient quit smoking 20 years ago drinks alcohol rarely socially. ROS Other: All systems not noted in ROS Statement are negative. Past Medical History Past Medical History: Coronary Artery Disease (CAD), COPD, CVA/TIA, Diabetes Mellitus, Hyperlipidemia, Hypertension, Myocardial Infarction (CA), Pneumonia, Prostate Disorder, Syncope Additional Past Medical History / Comment(s): COPD, diabetes mellitus type 2, BPH, left upper lobe lesion measuring 1.9 x 1.6 cm in size and not showing any metabolic activity, coronary artery disease with previous CA, diabetes mellitus , hypertension, hyperlipidemia, chronic back pain, BPH Last Myocardial Infarction Date:: 05/24/12 History of Any Multi-Drug Resistant Organisms: None Reported Past Surgical History: Back Surgery, Cholecystectomy, Heart Catheterization, Hernia Repair Additional Past Surgical History / Comment(s): 2011 cardiac cath-treated medically, low back surgery, ROBERTO CATARACT SX, abdominal hernia repair, bilateral cataract removal, bronchoscopy. Past Anesthesia/Blood Transfusion Reactions: No Reported Reaction Past Psychological History: Anxiety, Depression Smoking Status: Former smoker Past Alcohol Use History: Rare Past Drug Use History: None Reported - Past Family History Mother Family Medical History: No Reported History Father Family Medical History: Diabetes Mellitus Additional Family Medical History / Comment(s): Father of diabetes at the age of 83 yrs. General Exam - General Exam Comments Initial Comments: General: The patient is awake and alert, in no distress, and does not appear acutely ill. Complains of right shoulder injury and pain. Vital signs shows temperature 98.2 pulse 102 respiratory rate 20 pulse ox 96% room air blood pressure 125/61 Neck: Chronic right-sided neck discomfort which is can be receiving shots next week. Denies chest pain denies shortness of breath denies any GI/ problems. No difficulty with bowel movements. Appetite good. Musculoskeletal: All extremities normal except for the right shoulder at the rotator cuff area. Patient has pain when he lifts the arm up. Neurovascular status to hands intact. He does state he has some tingling to his entire hand. This started after the injury we did discuss neuropraxia and brachial plexus injury. 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 This be reevaluated by his physiatry. Neurological: CN II-XII intact, There are no obvious motor or sensory deficits. Coordination appears grossly intact. Speech is normal. Limitations: no limitations Course Vital Signs 07/01/17 15:20 Temperature 98.2 F Pulse Rate 102 H Respiratory 20 Rate Blood Pressure 125/61 O2 Sat by Pulse 96 Oximetry Medical Decision Making - Medical Decision Making X-rays of the right shoulder were done showing degenerative changes of the right shoulder. Possible chondrocalcinosis. No acute bony fracture appreciated. Awaiting radiologist's final impression Patient has an appointment to follow-up with his physiatry wrist and just next several days. The patient was advised to continue with home pain medications including ibuprofen 600 mg with food as needed ice to the area. Gentle range of motion to keep the arm and shoulder supple. He's report any nerve numbness or deficits to his family physician or return emergency room as needed. Disposition Clinical Impression: Right shoulder strain Disposition: HOME SELF-CARE Condition: Fair Instructions: Rotator Cuff Injury (ED) Additional Instructions: ICU shoulder. Gentle range of motion and use. Follow-up family physician and your psyiatrist. Take ibuprofen as needed for pain. Prescriptions: Ibuprofen [Motrin] 600 mg PO Q6HR PRN #20 tab PRN Reason: Take with food for pain Referrals: Renzo Boyer MD [Primary Care Provider] - 1-2 days Time of Disposition: 16:12
--- NOTE | 2017-07-01 16:06 | XR ---
EXAMINATION TYPE: XR shoulder complete RT DATE OF EXAM: 07/01/2017 CLINICAL HISTORY: Right shoulder pain after fall 2 days ago TECHNIQUE: Three views of the right shoulder are obtained. COMPARISON: None. FINDINGS: There is no acute fracture/dislocation evident in the right shoulder. The acromioclavicul ar and glenohumeral joint spaces appear within normal limits. Vague calcifications are seen along th e distal aspect of the rotator cuff tendons relating to calcific tendinitis. Acromioclavicular capsul ar hypertrophy is present. The visualized ribs are intact and unremarkable. IMPRESSION: 1. There is no acute fracture or dislocation in the right shoulder. 2. Rotator cuff calcific tendinitis and acromioclavicular arthropathy.
[2017-07-01 16:20] VITALS: BP 133/63; PULSE 100; RESP 18
== END 2017-07-01 16:20 | disposition home or self-care (01) ==
LOC: EC 15:12
DX: S46.911A Strain of unspecified muscle, fascia and tendon at shoulder and upper arm level, right arm, initial encounter (principal); I25.10 Atherosclerotic heart disease of native coronary artery without angina pectoris; J44.9 Chronic obstructive pulmonary disease, unspecified; E11.9 Type 2 diabetes mellitus without complications; E78.5 Hyperlipidemia, unspecified; I10 Essential (primary) hypertension; I25.2 Old myocardial infarction; N42.9 Disorder of prostate, unspecified; N40.0 Benign prostatic hyperplasia without lower urinary tract symptoms; Z86.73 Personal history of transient ischemic attack (TIA), and cerebral infarction without residual deficits; Z79.4 Long term (current) use of insulin; Z79.01 Long term (current) use of anticoagulants; Z79.899 Other long term (current) drug therapy; Z88.1 Allergy status to other antibiotic agents; W01.0XXA Fall on same level from slipping, tripping and stumbling without subsequent striking against object, initial encounter
CPT/HCPCS: 99284

== ENCOUNTER → 2017-10-03 | Outpatient (CLI) | payer MEDICARE, OTHER ==
--- NOTE | 2017-10-03 13:35 | US ---
EXAMINATION TYPE: US venous doppler duplex LE BI DATE OF EXAM: 10/03/2017 1:19 PM COMPARISON: NONE CLINICAL HISTORY: [id number] Pain in left/right lower limb,. Swelling SIDE PERFORMED: Bilateral TECHNIQUE: The lower extremity deep venous system is examined utilizing real time linear array sonog hannah with graded compression, doppler sonography and color-flow sonography. VESSELS IMAGED: External Iliac Vein (EIV) Common Femoral Vein Deep Femoral Vein Greater Saphenous Vein * Femoral Vein Popliteal Vein Small Saphenous Vein * Proximal Calf Veins (* superficial vessels) Right Leg: Negative for DVT Left Leg: Negative for DVT Grayscale, color doppler, spectral doppler imaging performed of the deep veins of the bilateral lower extremities. There is normal flow, compressibility, vascular waveforms. IMPRESSION: No ultrasound evidence for acute DVT in either lower extremity.
== END | disposition home or self-care (01) ==
LOC: RADUSWWP 12:45
PROVIDERS: ATTEND Internal Medicine Critical Care Medicine
DX: M79.662 Pain in left lower leg (principal); M79.661 Pain in right lower leg
CPT/HCPCS: 93970; 99213

== ENCOUNTER 2017-11-26 18:44 | Inpatient (IN) | payer MEDICARE, OTHER ==
[2017-11-26] MEDS ORDERED: IPRATROPIUM-ALBUTEROL 3 ML NEB INHALATION STA (18:49)
--- NOTE | 2017-11-26 18:54 | ED ---
General Adult HPI - General Stated complaint: COPD Time Seen by Provider: 11/26/17 18:48 Source: patient, EMS, RN notes reviewed, old records reviewed - History of Present Illness Initial comments: 71-year-old male history of COPD presents for evaluation of worsening cough and dyspnea which began yesterday evening. Patient did report some central chest pain which was present yesterday, he has had no chest pain today. Patient has been taking his albuterol with minimal relief. He does have history of hypertension and CAD, no history of congestive heart failure. Patient was a previous long-time smoker. He does follow with pulmonology. Denies fever or chills. Denies abdominal pain nausea vomiting. Patient states he has had bilateral ankle swelling which is been present for the past 6 months. - Related Data Home Medications Medication Instructions Recorded Confirmed Insulin Detemir [Levemir] 60 unit SQ HS 07/09/14 11/26/17 Isosorbide Mononitrate ER [Imdur] 30 mg PO DAILY 07/09/14 11/26/17 Lisinopril [Zestril] 10 mg PO DAILY 07/09/14 11/26/17 amLODIPine [Norvasc] 5 mg PO DAILY 07/09/14 11/26/17 PARoxetine [Paxil] 20 mg PO DAILY 11/15/14 11/26/17 Tamsulosin HCl [Flomax] 0.4 mg PO DAILY 02/05/17 11/26/17 Allergies Allergy/AdvReac Type Severity Reaction Status Date / Time levofloxacin [From Levaquin] Allergy Rash/Hives Verified 11/26/17 18:53 Review of Systems ROS Statement: Those systems with pertinent positive or pertinent negative responses have been documented in the HPI. ROS Other: All systems not noted in ROS Statement are negative. Past Medical History Past Medical History: Coronary Artery Disease (CAD), COPD, CVA/TIA, Diabetes Mellitus, Hyperlipidemia, Hypertension, Myocardial Infarction ([place]), Pneumonia, Prostate Disorder, Syncope Additional Past Medical History / Comment(s): COPD, diabetes mellitus type 2, BPH, left upper lobe lesion measuring 1.9 x 1.6 cm in size and not showing any metabolic activity, coronary artery disease with previous [place], diabetes mellitus , hypertension, hyperlipidemia, chronic back pain, BPH Last Myocardial Infarction Date:: 05/24/12 History of Any Multi-Drug Resistant Organisms: None Reported Past Surgical History: Back Surgery, Cholecystectomy, Heart Catheterization, Hernia Repair Additional Past Surgical History / Comment(s): 2012 cardiac cath-treated medically, low back surgery, ROBERTO CATARACT SX, abdominal hernia repair, bilateral cataract removal, bronchoscopy. Past Anesthesia/Blood Transfusion Reactions: No Reported Reaction Past Psychological History: Anxiety, Depression Smoking Status: Former smoker Past Alcohol Use History: Rare Past Drug Use History: None Reported - Past Family History Mother Family Medical History: No Reported History Father Family Medical History: Diabetes Mellitus Additional Family Medical History / Comment(s): Father of diabetes at the age of 83 yrs. General Exam General appearance: alert, in no apparent distress Head exam: Present: atraumatic, normocephalic Eye exam: Present: normal appearance, PERRL ENT exam: Present: normal exam Neck exam: Present: normal inspection. Absent: tenderness, meningismus Respiratory exam: Present: respiratory distress, wheezes, decreased breath sounds, prolonged expiratory Cardiovascular Exam: Present: normal rhythm, tachycardia GI/Abdominal exam: Present: soft. Absent: distended, tenderness Extremities exam: Present: normal capillary refill, pedal edema Back exam: Present: normal inspection, full ROM. Absent: tenderness Neurological exam: Present: alert, oriented X3, CN II-XII intact. Absent: motor sensory deficit Course Vital Signs 11/26/17 11/26/17 11/26/17 18:45 19:41 19:49 Temperature 101.7 F H Pulse Rate 114 H 117 H 118 H Respiratory 22 18 18 Rate Blood Pressure 192/73 O2 Sat by Pulse 98 Oximetry 11/26/17 11/26/17 20:33 21:40 Temperature 99.3 F Pulse Rate 115 H 106 H Respiratory 20 20 Rate Blood Pressure 163/68 159/74 O2 Sat by Pulse 95 96 Oximetry EKG Findings - EKG Comments: EKG Findings:: EKG shows sinus tachycardia with PVC, ventricular rate 116, FL interval 142, QRS duration 78, QTC 458, there is ST segment depression which is diffuse, no ST segment elevation, no T-wave abnormality. Medical Decision Making - Medical Decision Making 71-year-old male presenting with worsening cough and dyspnea. Patient is febrile on initial evaluation. Chest x-ray obtained, negative for focal pneumonia. Influenza is also negative. Patient was given 5 mg of albuterol and 125 mg of Solu-Medrol prior to arrival, by EMS. Laboratory studies obtained , white blood cell count normal 7.8, hemoglobin 13.0, magnesium is 1.2 and this is replaced with 2 g magnesium. Patient will be admitted for further treatment and evaluation of COPD exacerbation and concern for community-acquired pneumonia. - Lab Data Result diagrams: 11/26/17 19:04 11/26/17 19:04 Lab Results 11/26/17 11/26/17 11/26/17 Range/Units 19:04 19:04 19:04 WBC 7.8 (3.8-10.6) k/uL RBC 4.20 L (4.30-5.90) m/uL Hgb 13.0 (13.0-17.5) gm/dL Hct 37.7 L (39.0-53.0) % MCV 89.9 (80.0-100.0) fL MCH 30.9 (25.0-35.0) pg MCHC 34.4 (31.0-37.0) g/dL RDW 14.1 (11.5-15.5) % Plt Count 117 L (150-450) k/uL Neutrophils % 81 % Lymphocytes % 9 % Monocytes % 6 % Eosinophils % 1 % Basophils % 0 % Neutrophils # 6.3 (1.3-7.7) k/uL Lymphocytes # 0.7 L (1.0-4.8) k/uL Monocytes # 0.5 (0-1.0) k/uL Eosinophils # 0.1 (0-0.7) k/uL Basophils # 0.0 (0-0.2) k/uL PT (9.0-12.0) sec INR (<1.2) APTT (22.0-30.0) sec Sodium 140 (137-145) mmol/L Potassium 3.5 (3.5-5.1) mmol/L Chloride 107 (98-107) mmol/L Carbon Dioxide 22 (22-30) mmol/L Anion Gap 11 mmol/L BUN 24 H (9-20) mg/dL Creatinine 1.00 (0.66-1.25) mg/dL Est GFR (MDRD) Af Amer >60 (>60 ml/min/1.73 sqM) Est GFR (MDRD) Non-Af >60 (>60 ml/min/1.73 sqM) Glucose 185 H (74-99) mg/dL Plasma Lactic Acid Nehemias (0.7-2.0) mmol/L Calcium 8.9 (8.4-10.2) mg/dL Magnesium 1.2 L (1.6-2.3) mg/dL Total Bilirubin 0.5 (0.2-1.3) mg/dL AST 16 L (17-59) U/L ALT 33 (21-72) U/L Alkaline Phosphatase 83 (38-126) U/L Total Creatine Kinase 104 (55-170) U/L CK-MB (CK-2) 1.5 (0.0-2.4) ng/mL CK-MB (CK-2) Rel Index 1.4 Troponin I 0.022 (0.000-0.034) ng/mL Total Protein 5.6 L (6.3-8.2) g/dL Albumin 3.3 L (3.5-5.0) g/dL Influenza Type A RNA (Not Detectd) Influenza Type B (PCR) (Not Detectd) 11/26/17 11/26/17 11/26/17 Range/Units 19:04 19:04 19:04 WBC (3.8-10.6) k/uL RBC (4.30-5.90) m/uL Hgb (13.0-17.5) gm/dL Hct (39.0-53.0) % MCV (80.0-100.0) fL MCH (25.0-35.0) pg MCHC (31.0-37.0) g/dL RDW (11.5-15.5) % Plt Count (150-450) k/uL Neutrophils % % Lymphocytes % % Monocytes % % Eosinophils % % Basophils % % Neutrophils # (1.3-7.7) k/uL Lymphocytes # (1.0-4.8) k/uL Monocytes # (0-1.0) k/uL Eosinophils # (0-0.7) k/uL Basophils # (0-0.2) k/uL PT 10.4 (9.0-12.0) sec INR 1.1 (<1.2) APTT 24.1 (22.0-30.0) sec Sodium (137-145) mmol/L Potassium (3.5-5.1) mmol/L Chloride (98-107) mmol/L Carbon Dioxide (22-30) mmol/L Anion Gap mmol/L BUN (9-20) mg/dL Creatinine (0.66-1.25) mg/dL Est GFR (MDRD) Af Amer (>60 ml/min/1.73 sqM) Est GFR (MDRD) Non-Af (>60 ml/min/1.73 sqM) Glucose (74-99) mg/dL Plasma Lactic Acid Nehemias 1.9 (0.7-2.0) mmol/L Calcium (8.4-10.2) mg/dL Magnesium (1.6-2.3) mg/dL Total Bilirubin (0.2-1.3) mg/dL AST (17-59) U/L ALT (21-72) U/L Alkaline Phosphatase (38-126) U/L Total Creatine Kinase (55-170) U/L CK-MB (CK-2) (0.0-2.4) ng/mL CK-MB (CK-2) Rel Index Troponin I (0.000-0.034) ng/mL Total Protein (6.3-8.2) g/dL Albumin (3.5-5.0) g/dL Influenza Type A RNA Not Detected (Not Detectd) Influenza Type B (PCR) Not Detected (Not Detectd) Critical Care Time Critical Care Time: Yes Total Critical Care Time: 35 Disposition Clinical Impression: COPD (chronic obstructive pulmonary disease), Community acquired pneumonia Disposition: ADMITTED IP TO THIS [facility] Condition: Stable Referrals: Renzo Boyer MD [Primary Care Provider] - 1-2 days Decision to Admit Reason: Admit from EC Decision Date: 11/26/17 Decision Time: 21:49
[2017-11-26 19:29] LABS: Basophils % (A) 0 %; Eosinophils # (A) 0.1 k/uL (0-0.7); Eosinophils % (A) 1 %; HCT 37.7 % (39.0-53.0); Lymphocytes # (A) 0.7 k/uL (1.0-4.8); Lymphocytes % (A) 9 %; MCH 30.9 pg (25.0-35.0); MCHC 34.4 g/dL (31.0-37.0); MCV 89.9 fL (80.0-100.0); Mean Platelet Volume 7.5; Monocytes # (A) 0.5 k/uL (0-1.0); Monocytes % (A) 6 %; Neutrophils # (A) 6.3 k/uL (1.3-7.7); Neutrophils % (A) 81 %; Platelet Count 117 k/uL (150-450); RDW 14.1 % (11.5-15.5); WBC 7.8 k/uL (3.8-10.6)
[2017-11-26 19:39] LABS: INR 1.1 (<1.2); Partial Thromboplastin Time 24.1 sec (22.0-30.0); Prothrombin Time 10.4 sec (9.0-12.0)
--- NOTE | 2017-11-26 19:45 | XR ---
EXAMINATION: XR chest 2V DATE AND TIME: 11/26/2017 7:16 PM ORDERING PROVIDER: Jerry Galloway MD CLINICAL INDICATION: difficulty breathing TECHNIQUE: PA and lateral COMPARISON: 02/05/2017 DESCRIPTION: The lungs are clear. The pleural spaces are negative. The cardiac silhouette is not enlarged. The mediastinal and pleural silhouettes are unremarkable. The skeletal structures are intact without focal findings. The soft tissues are unremarkable. IMPRESSION: NO ACUTE PROCESS.
[2017-11-26 19:50] LABS: ALT 33 U/L (21-72); AST 16 U/L (17-59); Albumin 3.3 g/dL (3.5-5.0); Alkaline Phosphatase 83 U/L (38-126); Anion Gap 11 mmol/L; Blood Urea Nitrogen 24 mg/dL (9-20); Calcium 8.9 mg/dL (8.4-10.2); Carbon Dioxide 22 mmol/L (22-30); Chloride 107 mmol/L (98-107); Glucose 185 mg/dL (74-99); Magnesium 1.2 mg/dL (1.6-2.3); Potassium 3.5 mmol/L (3.5-5.1); Sodium 140 mmol/L (137-145); Total Bilirubin 0.5 mg/dL (0.2-1.3); Total Protein 5.6 g/dL (6.3-8.2)
[2017-11-26 20:11] LABS: Creatine Kinase MB 1.5 ng/mL (0.0-2.4); Troponin I 0.022 ng/mL (0.000-0.034)
[2017-11-26] MEDS: MAGNESIUM SULFATE-D5W PMX 1 GM in DEXTROSE/WATER 1 100ML.BAG IVPB SCH ×2 (20:40→21:46)
[2017-11-26] MEDS ORDERED: ACETAMINOPHEN TAB 500 MG TAB PO STA (20:49)
[2017-11-26] MEDS ORDERED: IPRATROPIUM-ALBUTEROL 3 ML NEB INHALATION PRN (21:41)
[2017-11-26] MEDS ORDERED: ALBUTEROL NEBULIZED 2.5 MG/3 ML INHALATION PRN (21:45)
[2017-11-26] MEDS ORDERED: cefTRIAXone IN SWFI 1,000 MG/10 ML SYRINGE IVP STA (21:46)
[2017-11-26] MEDS ORDERED: ACETAMINOPHEN TAB 325 MG TAB PO PRN (22:45)
[2017-11-26] MEDS: methylPREDNISolone SOD SUCCI 125 MG/2 ML VIAL IV SCH (23:43)
[2017-11-27] MEDS: methylPREDNISolone SOD SUCCI 125 MG/2 ML VIAL IV SCH ×3 (05:45→19:18)
[2017-11-27 06:57] LABS: Glucose,Whole Blood 507 mg/dL (75-99)
[2017-11-27 07:10] LABS: Glucose,Whole Blood 465 mg/dL (75-99)
[2017-11-27] MEDS ORDERED: INSULIN DETEMIR 100 UNIT/ML 10 ML VIAL SQ STA (07:29)
[2017-11-27] MEDS ORDERED: INSULIN ASPART 100 UNIT/ML 1 ML 10 ML VIAL SQ ONE (07:32)
[2017-11-27] MEDS: SODIUM CHLORIDE 0.9% 1,000 ML IV SCH (07:59)
[2017-11-27] MEDS: INSULIN ASPART 100 UNIT/ML 1 ML 10 ML VIAL SQ SCH ×4 (07:59→19:17)
[2017-11-27] MEDS: LISINOPRIL 10 MG TAB PO SCH (08:09)
[2017-11-27] MEDS: ISOSORBIDE MONONITRATE ER 30 MG TAB.ER.24H PO SCH (08:09)
[2017-11-27] MEDS: amLODIPine 5 MG TAB PO SCH (08:09)
[2017-11-27] MEDS: IPRATROPIUM-ALBUTEROL 3 ML NEB INHALATION SCH ×4 (08:41→20:25)
[2017-11-27 11:12] LABS: Glucose,Whole Blood 596 mg/dL (75-99)
[2017-11-27 11:12] LABS: Glucose,Whole Blood 594 mg/dL (75-99)
[2017-11-27 11:24] LABS: Glucose,Whole Blood 597 mg/dL (75-99)
[2017-11-27] MEDS ORDERED: Magnesium Replacement Protocol 1 EACH MISC MISCELLANE PRN (11:27)
--- NOTE | 2017-11-27 12:07 | P.CNPUL ---
History of Present Illness Consult date: 11/27/17 Requesting physician: Lawson Kent Reason for consult: dyspnea, cough Chief complaint: Dyspnea, cough, fever History of present illness: Isrrael is [id number] white male patient that sees Dr. Boyer for his history of severe GOLD stage III COPD, with baseline FEV1 of 33% of predicted, presented to the emergency department on 11/26/2017 with complaints of increasing dyspnea , nonproductive cough, fever. He states his cough started the night before last , and had progressively became worse to the point where he could not breathe. Also reports right-sided chest pressure at home, which could possibly related to his coughing. Reports some increased swelling in bilateral lower extremities , and pain in the bottom of his left foot, which is worse with ambulation, had received Depo-Medrol IM, and prednisone taper for this pain when seen by Dr. Boyer on 10/18/2017. Thought to be inflammatory arthropathy with unknown etiology. Patient is an ex-smoker, quit 20 years ago, but prior to that he smoked 3 packs per day for 33 years. No home oxygen, he is on Advair, Combivent breast implants and DuoNeb nebulized treatments at home. Was febrile on presentation with a temp of 101.7F. Influenza screen was negative. Chest x -ray showed no acute process. Of note he does have left upper lobe nodule measuring 1.9 x 1.6 cm in size, that has been followed on an outpatient basis by Dr. Boyer. No significant metabolic activity was seen on the prior PET scan done in July 2016 corresponding to the lesion itself and there was no suspicious metabolic activity noted in the entire body. He supposed to have a follow-up CAT scan of the chest in January 2018. Work revealed WBC within normal limits of 7.8, hemoglobin of 13, no electrolyte abnormality, B1 was 24, creatinine was 1.0, troponin and cardiac enzymes were negative 1, magnesium was 1.2, asthma lactic acid was 1.9, glucose was elevated at 185. He was started on IV Rocephin, IV steroids, nebulized treatments, and admitted to the observation unit. Review of Systems All systems: negative Constitutional: Denies chills, Denies fever Eyes: denies blurred vision, denies pain Ears, nose, mouth and throat: Denies headache, Denies sore throat Cardiovascular: Denies chest pain, Denies shortness of breath Respiratory: Denies cough Gastrointestinal: Denies abdominal pain, Denies diarrhea, Denies nausea, Denies vomiting Musculoskeletal: Reports myalgias Musculoskeletal: left: foot pain, bilateral: ankle swelling Integumentary: Denies pruritus, Denies rash Neurological: Denies numbness, Denies weakness Psychiatric: Denies anxiety, Denies depression Endocrine: Denies fatigue, Denies weight change Past Medical History Past Medical History: Coronary Artery Disease (CAD), COPD, CVA/TIA, Diabetes Mellitus, Hyperlipidemia, Hypertension, Myocardial Infarction ([place]), Pneumonia, Prostate Disorder, Syncope Additional Past Medical History / Comment(s): COPD, diabetes mellitus type 2, BPH, left upper lobe lesion measuring 1.9 x 1.6 cm in size and not showing any metabolic activity, coronary artery disease with previous [place], diabetes mellitus , hypertension, hyperlipidemia, chronic back pain, BPH Last Myocardial Infarction Date:: 05/24/12 History of Any Multi-Drug Resistant Organisms: None Reported Past Surgical History: Back Surgery, Cholecystectomy, Heart Catheterization, Hernia Repair Additional Past Surgical History / Comment(s): 2011 cardiac cath-treated medically, low back surgery, ROBERTO CATARACT SX, abdominal hernia repair, bilateral cataract removal, bronchoscopy. Past Anesthesia/Blood Transfusion Reactions: No Reported Reaction Past Psychological History: Anxiety, Depression Additional Psychological History / Comment(s): PAtient lives with son. Smoking Status: Former smoker Past Alcohol Use History: Rare Additional Past Alcohol Use History / Comment(s): Pt started smoking in 1 and quit in 1993. He was a 2ppd smoker. Past Drug Use History: None Reported - Past Family History Mother Family Medical History: No Reported History Father Family Medical History: Diabetes Mellitus Additional Family Medical History / Comment(s): Father of diabetes at the age of 83 yrs. Medications and Allergies Home Medications Medication Instructions Recorded Confirmed Type Insulin Detemir [Levemir] 72 unit SQ HS 07/09/14 11/27/17 History Isosorbide Mononitrate ER [Imdur] 30 mg PO DAILY 07/09/14 11/26/17 History Lisinopril [Zestril] 10 mg PO DAILY 07/09/14 11/26/17 History amLODIPine [Norvasc] 5 mg PO DAILY 07/09/14 11/26/17 History PARoxetine [Paxil] 20 mg PO DAILY 11/15/14 11/26/17 History Tamsulosin HCl [Flomax] 0.4 mg PO DAILY 02/05/17 11/26/17 History Allergies Allergy/AdvReac Type Severity Reaction Status Date / Time levofloxacin [From Levaquin] Allergy Rash/Hives Verified 11/26/17 23:42 Physical Exam Vitals: Vital Signs Temp Pulse Pulse Resp BP BP Pulse Ox 11/27/17 08:51 110 H 18 11/27/17 08:41 101 H 16 11/27/17 07:00 98.2 F 88 16 163/78 93 L 11/27/17 04:27 97.1 F L 85 16 127/60 92 L 11/26/17 22:57 97.0 F L 104 H 16 146/68 94 L 11/26/17 22:48 97.9 F 104 H 20 150/72 95 11/26/17 22:22 116 H 18 11/26/17 22:12 104 H 18 11/26/17 21:40 106 H 20 159/74 96 11/26/17 20:33 99.3 F 115 H 20 163/68 95 11/26/17 19:49 118 H 18 11/26/17 19:41 117 H 18 11/26/17 18:45 101.7 F H 114 H 22 192/73 98 Intake and Output 11/26/17 11/27/17 11/27/17 22:59 06:59 14:59 Intake Total 500 0 Balance 500 0 Intake: Oral 500 0 Other: # Voids 2 1 Weight 94.347 kg GENERAL EXAM: Alert, pleasant 71-year-old white male, comfortable in no apparent distress. HEAD: Normocephalic/atraumatic. EYES: Normal reaction of pupils, equal size. Conjunctiva pink, sclera white. NOSE: Clear with pink turbinates. THROAT: No erythema or exudates. NECK: No masses, no JVD, no thyroid enlargement, no adenopathy. CHEST: No chest wall deformity. Symmetrical expansion. LUNGS: Extremely diminished air entry bilaterally, with tight end expiratory wheezes CVS: Regular rate and rhythm, normal S1 and S2, no gallops, no murmurs, no rubs ABDOMEN: Soft, nontender. No hepatosplenomegaly, normal bowel sounds, no guarding or rigidity. EXTREMITIES: No clubbing, no edema, no cyanosis, 2+ pulses and upper and lower extremities. MUSCULOSKELETAL: Muscle strength and tone normal. Plantar surface of left foot is tender, but not swollen, no obvious deformity noted. SPINE: No scoliosis or deformity SKIN: No rashes CENTRAL NERVOUS SYSTEM: Alert and oriented -3. No focal deficits, tone is normal in all 4 extremities. PSYCHIATRIC: Alert and oriented -3. Appropriate affect. Intact judgment and insight. Results - Laboratory Findings CBC and BMP: 11/26/17 19:04 11/27/17 06:59 PT/INR, D-dimer PT 10.4 sec (9.0-12.0) 11/26/17 19:04 INR 1.1 (<1.2) 11/26/17 19:04 Abnormal lab findings: Abnormal Labs 11/26/17 11/26/17 11/27/17 19:04 19:04 06:51 RBC 4.20 L Hct 37.7 L Plt Count 117 L Lymphocytes # 0.7 L BUN 24 H Glucose 185 H POC Glucose (mg/dL) 507 H Magnesium 1.2 L AST 16 L Total Protein 5.6 L Albumin 3.3 L 11/27/17 11/27/17 06:59 07:06 RBC Hct Plt Count Lymphocytes # BUN Glucose 513 H* POC Glucose (mg/dL) 465 H Magnesium AST Total Protein Albumin - Diagnostic Findings Chest x-ray: report reviewed Additional studies: Twelve-lead EKG reviewed Assessment and Plan Plan: Assessment: #1. Acute exacerbation of COPD with tracheobronchitis, no clear evidence of pneumonia on the chest x-ray #2. Febrile illness, tachycardia with a rate of 116 BPM on presentation, influenza screen was negative. No evidence of leukocytosis, no clear evidence of pneumonia on the chest x-ray. #3. Atypical chest pain, in the right side of the chest, EKG showed sinus tachycardia with PVCs with a rate of 116 BPM, Q wave in V2, but no acute ST elevation. Troponin and cardiac enzymes were negative 1. #4. Hypomagnesemia, with a magnesium of 1.2, corrected per protocol. #3. Severe COPD, GOLD stage III, with baseline FEV1 of 33% of predicted or graft #4. Bilateral lower leg edema, present on admission, most likely related to cor pulmonale #5. Acute inflammatory arthropathy of the left foot, patient had been treated with Depo-Medrol IM, and prednisone taper, patient denies any trauma trauma #6. Diabetes mellitus II, with Solu-Medrol induced hyperglycemia #7. Solitary nodule in in the left upper lobe measuring 1.9 x 1.6 cm in size, with previous PET scan from July 2016 showing no significant metabolic activity spending to the left upper lobe lesion or the entire body. Being followed on an outpatient basis. The upcoming follow-up CT chest in January 2018 #8. History of coronary artery disease #9. Hypertension, hyperlipidemia #10. Chronic back pain #11 BPH Plan: Continue current antibiotics, sputum culture. Continue DuoNeb nebulized treatments, will add Pulmicort and Perforomist. Will await the results of the blood cultures. Further recommendations to follow. I performed a history & physical examination of the patient and discussed their management with my nurse practitioner, Ada Fraser. I reviewed the nurse practitioner's note and agree with the documented findings and plan of care. Lung sounds are extremely diminished with faint wheezes throughout the lung wright. The findings and the impression was discussed with the patient. I attest to the documentation by the nurse practitioner. Time with Patient: Greater than 30
--- NOTE | 2017-11-27 12:18 | P.CNPUL ---
History of Present Illness Consult date: 11/27/17 Requesting physician: Lawson Kent Reason for consult: dyspnea Chief complaint: Chest pain. Shortness of breath, cough, congestion. History of present illness: This is a very pleasant 71-year-old gentleman who follows with Dr. Merlin mendiola as his primary care physician. He has a history of chronic obstructive pulmonary disease, previous chronic tobacco dependence however quit 20 years ago , hypertension, depression, benign prosthetic hypertrophy, diabetes mellitus, previous CVA/TIA, hypertension, hyperlipidemia. He also was noted to have a left upper lobe lesion measuring 1.9 x 1.6 cm without any previous metabolic uptake on PET scan in July 2016. Follow-up computed tomography scan of the chest in January 2017 revealed a more prominent was as compared to previous however the size was about the same. There is also a stable right upper lobe nodule measuring 6 mm. Presented here to the emergency room yesterday with complaints of increasing shortness of breath, cough and congestion. He did have some central chest discomfort as well. His chest x-ray revealed no acute pulmonary process. Troponins were negative. Influenza screen negative. No leukocytosis. He did have a T-max of 101.7. He is maintaining good O2 saturations in the upper 90s on 2 L/m per nasal cannula. He was slightly hypertensive, slightly tachycardic. He is seen today in consultation on the regular medical floor. He is resting quite comfortably in bed. He denies any further chest discomfort. No worsening shortness of breath. He has a loose nonproductive cough. Dyspnea with minimal exertion. He is currently afebrile. His been initiated on bronchodilators, IV Solu-Medrol and empiric antibiotics. Review of Systems 14 point review of system was conducted. All negative other than as mentioned in HPI. Past Medical History Past Medical History: Coronary Artery Disease (CAD), COPD, CVA/TIA, Diabetes Mellitus, Hyperlipidemia, Hypertension, Myocardial Infarction (SD), Pneumonia, Prostate Disorder, Syncope Additional Past Medical History / Comment(s): COPD, diabetes mellitus type 2, BPH, left upper lobe lesion measuring 1.9 x 1.6 cm in size and not showing any metabolic activity, coronary artery disease with previous SD, diabetes mellitus , hypertension, hyperlipidemia, chronic back pain, BPH Last Myocardial Infarction Date:: 05/24/12 History of Any Multi-Drug Resistant Organisms: None Reported Past Surgical History: Back Surgery, Cholecystectomy, Heart Catheterization, Hernia Repair Additional Past Surgical History / Comment(s): 2012 cardiac cath-treated medically, low back surgery, ROBERTO CATARACT SX, abdominal hernia repair, bilateral cataract removal, bronchoscopy. Past Anesthesia/Blood Transfusion Reactions: No Reported Reaction Past Psychological History: Anxiety, Depression Additional Psychological History / Comment(s): PAtient lives with son. Smoking Status: Former smoker Past Alcohol Use History: Rare Additional Past Alcohol Use History / Comment(s): Pt started smoking in 1960 and quit in 1993. He was a 2ppd smoker. Past Drug Use History: None Reported - Past Family History Mother Family Medical History: No Reported History Father Family Medical History: Diabetes Mellitus Additional Family Medical History / Comment(s): Father of diabetes at the age of 83 yrs. Medications and Allergies Home Medications Medication Instructions Recorded Confirmed Type Insulin Detemir [Levemir] 72 unit SQ HS 07/09/14 11/27/17 History Isosorbide Mononitrate ER [Imdur] 30 mg PO DAILY 07/09/14 11/26/17 History Lisinopril [Zestril] 10 mg PO DAILY 07/09/14 11/26/17 History amLODIPine [Norvasc] 5 mg PO DAILY 07/09/14 11/26/17 History PARoxetine [Paxil] 20 mg PO DAILY 11/15/14 11/26/17 History Tamsulosin HCl [Flomax] 0.4 mg PO DAILY 02/05/17 11/26/17 History Allergies Allergy/AdvReac Type Severity Reaction Status Date / Time levofloxacin [From Levaquin] Allergy Rash/Hives Verified 11/26/17 23:42 Physical Exam Vitals: Vital Signs Temp Pulse Pulse Resp BP BP Pulse Ox 11/27/17 08:51 110 H 18 11/27/17 08:41 101 H 16 11/27/17 07:00 98.2 F 88 16 163/78 93 L 11/27/17 04:27 97.1 F L 85 16 127/60 92 L 11/26/17 22:57 97.0 F L 104 H 16 146/68 94 L 11/26/17 22:48 97.9 F 104 H 20 150/72 95 11/26/17 22:22 116 H 18 11/26/17 22:12 104 H 18 11/26/17 21:40 106 H 20 159/74 96 11/26/17 20:33 99.3 F 115 H 20 163/68 95 11/26/17 19:49 118 H 18 11/26/17 19:41 117 H 18 11/26/17 18:45 101.7 F H 114 H 22 192/73 98 Intake and Output 11/26/17 11/27/17 11/27/17 22:59 06:59 14:59 Intake Total 500 0 Balance 500 0 Intake: Oral 500 0 Other: # Voids 2 1 Weight 94.347 kg GENERAL EXAM: Alert, active, comfortable in no apparent distress. HEAD: Normocephalic. EYES: Normal reaction of pupils, equal size. NOSE: Clear with pink turbinates. THROAT: No erythema or exudates. NECK: No masses, no JVD. CHEST: No chest wall deformity. LUNGS: Equal air entry with faint end expiratory wheeze bilaterally. Diminished. CVS: S1 and S2 normal with no audible murmur, regular rhythm. ABDOMEN: No hepatosplenomegaly, normal bowel sounds, no guarding or rigidity. SPINE: No scoliosis or deformity SKIN: No rashes CENTRAL NERVOUS SYSTEM: No focal deficits, tone is normal in all 4 extremities. EXTREMITIES: There is trace peripheral edema. No clubbing, no cyanosis. Peripheral pulses are intact. Results - Laboratory Findings CBC and BMP: 11/26/17 19:04 11/27/17 06:59 PT/INR, D-dimer PT 10.4 sec (9.0-12.0) 11/26/17 19:04 INR 1.1 (<1.2) 11/26/17 19:04 Abnormal lab findings: Abnormal Labs 11/26/17 11/26/17 11/27/17 19:04 19:04 06:51 RBC 4.20 L Hct 37.7 L Plt Count 117 L Lymphocytes # 0.7 L BUN 24 H Glucose 185 H POC Glucose (mg/dL) 507 H Magnesium 1.2 L AST 16 L Total Protein 5.6 L Albumin 3.3 L 11/27/17 11/27/17 11/27/17 06:59 07:06 11:05 RBC Hct Plt Count Lymphocytes # BUN Glucose 513 H* POC Glucose (mg/dL) 465 H 596 H Magnesium AST Total Protein Albumin 11/27/17 11/27/17 11:09 11:20 RBC Hct Plt Count Lymphocytes # BUN Glucose POC Glucose (mg/dL) 594 H 597 H Magnesium AST Total Protein Albumin - Diagnostic Findings Chest x-ray: image reviewed Assessment and Plan Assessment: Impression: #1 Acute exacerbation of chronic obstructive pulmonary disease. #2 Acute on chronic hypoxic respiratory failure secondary to above. Utilizing his oxygen in the outpatient setting at 2 L/m per nasal cannula. #3 Left upper lobe lesion measuring 1.9 x 1.6 cm in size abutting the mediastinum and a bit more prominent than previous studies. PET scan in July 2016 revealed no metabolic activity. Patient setting. #4 Coronary artery disease. #5 History of CVA/TIA. #6 Diabetes mellitus. #7 Hyperlipidemia. #8 Hypertension. #9 Benign prosthetic hypertrophy. #10 Chronic pain syndrome. #11 33 year two pack per day smoking history. Plan: The patient was seen and evaluated by Dr. Snider date his chest x-ray and labs were reviewed. We'll continue with his current treatment including DuoNeb inhalations 4 times a day and when necessary, Pulmicort and Perforomist inhalations twice a day, IV Solu-Medrol. He is on empiric antibiotics in the form of Rocephin. We will increase his activity as tolerated. We'll continue to follow make further recommendations based on his clinical status. He does follow with Dr. Boyer in the outpatient setting in regards to his left upper lobe nodule. I, the cosigning physician, performed a history & physical examination of the patient. Lungs sounds bilateral end expiratory wheeze. Diminished.. Maintaining good O2 saturations in the 90s on 2 L/m per nasal cannula. I discussed the assessment and plan of care with my nurse practitioner, Nohemi Garcia. I attest to the above note as dictated by her. Time with Patient: Greater than 30
[2017-11-27] MEDS: MAGNESIUM SULFATE-D5W PMX 1 GM in DEXTROSE/WATER 1 100ML.BAG IVPB SCH ×2 (12:55→13:27)
[2017-11-27] MEDS ORDERED: INSULIN REGULAR BOLUS (FROM DRIP BAG) IV ONE (13:00)
[2017-11-27 14:41] LABS: Glucose,Whole Blood >600 mg/dL (75-99)
[2017-11-27 14:41] LABS: Glucose,Whole Blood >600 mg/dL (75-99)
[2017-11-27] MEDS: INSULIN REGULAR 100 UNIT in SODIUM CHLORIDE 0.9% 100 ML IV SCH ×2 (14:56→18:11)
[2017-11-27 15:45] LABS: Glucose,Whole Blood 517 mg/dL (75-99)
[2017-11-27 16:29] LABS: Glucose,Whole Blood 445 mg/dL (75-99)
[2017-11-27 16:37] LABS: Glucose,Whole Blood 434 mg/dL (75-99)
--- NOTE | 2017-11-27 17:01 | HP ---
HISTORY AND PHYSICAL CHIEF COMPLAINT: Shortness of breath and cough. HISTORY OF PRESENT ILLNESS: This 71-year-old gentleman with a past medical history of multiple medical problems including COPD acute exacerbation, history of CVA, TIA, diabetes, hypertension, hyperlipidemia, history of left upper lobe nodule being closely watched in the outpatient setting was admitted with significant shortness with cough and sputum. The patient was unable to breathe properly and the patient also had shortness of breath and some mild central pain chest pain is also reported along with a cough and the patient came to [facility] and admitted to the hospital for further evaluation and treatment. Influenza negative. There is no history of fever, rigors, chills. No history of headache, loss of consciousness, seizures. PAST MEDICAL HISTORY: CAD, COPD, CVA, TIA, diabetes, hypertension, myocardial infarction, back surgery. MEDICATIONS: Prior to admission: 1. Levemir 72 units subcu q.h.s. 2. Norvasc 5 mg daily. 3. Flomax 0.4. 4. Paxil 20 mg. 6. Imdur 30 mg p.o. daily. ALLERGIES: LEVAQUIN. FAMILY HISTORY: History of diabetes in the family. SOCIAL HISTORY: Occasional alcohol intake. Previous history of smoking. REVIEW OF SYMPTOMS: ENT: No diminished hearing or vision. CARDIOVASCULAR: No angina or palpitations. RESPIRATORY: As mentioned earlier. GI no nausea or vomiting. : No dysuria. Central nervous system: As mentioned earlier. Allergy/Immunology: No asthma or hayfever. Musculoskeletal: As mentioned earlier. Hematology/Oncology: No history of anemia. Endocrine: Diabetes. Constitutional : As mentioned earlier. Dermatology: Negative. Rheumatology: Negative. Psychiatric : As mentioned earlier. PHYSICAL EXAM: Patient is alert, oriented times two, pulse is 102, blood pressure 126/60, respirations 16, temperature 98.2, pulse ox 98% on room air. HEENT is conjunctivae normal. Neck: No jugular venous distention. No carotid bruit. Cardiovascular: S1, S2 muffled. Respiratory: Breath sounds diminished in the bases. Breathing efforts increased. Bilateral scattered rhonchi and expiratory wheezing and crackles. ABDOMEN: Soft, nontender. No mass palpable. Legs no edema and no swelling. Central nervous system: Higher functions as mentioned earlier. Moves all four extremities. No focal deficits. Lymphatics: No lymph nodes palpable in the neck, axillae or groin. Skin: No ulcer, rash or bleeding. LABS: WBC 7.8, hemoglobin 13, otherwise glucose 185, and glucose was 610. ASSESSMENT: 1. Chronic obstructive pulmonary disease acute exacerbation with acute purulent tracheobronchitis. 2. Left upper lobe nodule abutting the mediastinum. 3. Acute on chronic hypoxic respiratory failure. 4. Cerebrovascular accident, transient ischemic attack. 5. Diabetes type 2. 6. Hypertension. 7. Hyperlipidemia. 8. History of coronary artery disease. 9. Syncope. 10.History prostate disorder. 11.History of back surgery. 12.Degenerative disc disease. 13.History of anxiety, depression. 14.Remote history of nicotine dependence. 15.FULL CODE. RECOMMENDATIONS AND DISCUSSION: In this 71-year-old gentleman who presented with multiple complex medical issues , we will monitor the patient closely, continue the current management and symptomatic treatment. Otherwise, at this time, I would recommend bronchodilators, empiric antibiotics and as well as IV steroids, insulin drip. Guarded prognosis because of multiple complex medical issues. Further recommendations to follow. Dr. Snider will be consulted. Home medications will be reviewed and continued. Discussed with the patient and understands and agrees. Further recommendations to follow. Repeat labs was also noted. MMODL / IJN: [id number] / LACHO
[2017-11-27 17:08] LABS: Glucose,Whole Blood 358 mg/dL (75-99)
[2017-11-27] MEDS ORDERED: INSULIN ASPART 100 UNIT/ML 1 ML 10 ML VIAL SQ SCH (17:30)
[2017-11-27 17:35] LABS: Glucose,Whole Blood 299 mg/dL (75-99)
[2017-11-27 18:16] LABS: Glucose,Whole Blood 236 mg/dL (75-99)
[2017-11-27 18:39] LABS: Hemoglobin A1C 10.3 % (4.0-6.0)
[2017-11-27 20:11] LABS: Glucose,Whole Blood 132 mg/dL (75-99)
[2017-11-27] MEDS: guaiFENesin 600 MG TABLET.ER PO SCH (20:18)
[2017-11-27] MEDS: cefTRIAXone IN SWFI 1,000 MG/10 ML SYRINGE IVP SCH (20:18)
[2017-11-27] MEDS: HEPARIN SODIUM,PORCINE 5,000 UNIT/ML 1 ML VIAL SQ SCH (20:18)
[2017-11-27] MEDS: BUDESONIDE 1 MG/2 ML NEBU INHALATION SCH (20:25)
[2017-11-27] MEDS: FORMOTEROL FUMARATE 20 MCG/2 ML NEBU INHALATION SCH (20:25)
[2017-11-27] MEDS ORDERED: INSULIN DETEMIR 100 UNIT/ML 10 ML VIAL SQ SCH ×2 (21:00)
[2017-11-27 22:15] LABS: Glucose,Whole Blood 196 mg/dL (75-99)
[2017-11-28] MEDS ORDERED: methylPREDNISolone SOD SUCCI 125 MG/2 ML VIAL ONE
[2017-11-28] MEDS ORDERED: INSULIN ASPART 100 UNIT/ML 1 ML 10 ML VIAL SQ ONE
[2017-11-28 03:43] LABS: Glucose,Whole Blood 223 mg/dL (75-99)
[2017-11-28 03:43] LABS: Glucose,Whole Blood 186 mg/dL (75-99)
[2017-11-28 03:59] LABS: Glucose,Whole Blood 168 mg/dL (75-99)
[2017-11-28] MEDS: methylPREDNISolone SOD SUCCI 125 MG/2 ML VIAL IV SCH ×2 (04:42→05:38)
[2017-11-28] MEDS: SODIUM CHLORIDE 0.9% 1,000 ML IV SCH ×2 (04:42→08:27)
[2017-11-28 05:53] LABS: Glucose,Whole Blood 150 mg/dL (75-99)
[2017-11-28] MEDS: BUDESONIDE 1 MG/2 ML NEBU INHALATION SCH ×2 (07:35→19:56)
[2017-11-28] MEDS: IPRATROPIUM-ALBUTEROL 3 ML NEB INHALATION SCH ×4 (07:35→19:56)
[2017-11-28] MEDS: FORMOTEROL FUMARATE 20 MCG/2 ML NEBU INHALATION SCH ×2 (07:35→19:56)
[2017-11-28 08:13] LABS: Glucose,Whole Blood 152 mg/dL (75-99)
[2017-11-28] MEDS: INSULIN ASPART 100 UNIT/ML 1 ML 10 ML VIAL SQ SCH ×3 (08:26→17:49)
[2017-11-28] MEDS: guaiFENesin 600 MG TABLET.ER PO SCH ×2 (08:38→20:13)
[2017-11-28] MEDS: amLODIPine 5 MG TAB PO SCH (08:38)
[2017-11-28] MEDS: HEPARIN SODIUM,PORCINE 5,000 UNIT/ML 1 ML VIAL SQ SCH ×2 (08:38→20:13)
[2017-11-28] MEDS: ISOSORBIDE MONONITRATE ER 30 MG TAB.ER.24H PO SCH (08:39)
[2017-11-28] MEDS: PARoxetine 20 MG TAB PO SCH (08:39)
[2017-11-28] MEDS: LISINOPRIL 10 MG TAB PO SCH (08:39)
[2017-11-28] MEDS: TAMSULOSIN 0.4 MG CAP.ER.24H PO SCH (08:39)
[2017-11-28 10:24] LABS: Glucose,Whole Blood 318 mg/dL (75-99)
[2017-11-28] MEDS ORDERED: TEMAZEPAM 15 MG CAP PO PRN (12:23)
[2017-11-28 12:35] LABS: Glucose,Whole Blood 323 mg/dL (75-99)
[2017-11-28 13:57] VITALS: BMI 28.2
[2017-11-28 14:09] LABS: Glucose,Whole Blood 265 mg/dL (75-99)
[2017-11-28] MEDS: INSULIN REGULAR 100 UNIT in SODIUM CHLORIDE 0.9% 100 ML IV SCH (14:14)
--- NOTE | 2017-11-28 14:29 | P.PN ---
<Ada Fraser - Last Filed: 11/28/17 14:22> Subjective Progress Note Date: 11/28/17 Principal diagnosis: Acute exacerbation of chronic obstructive pulmonary disease This is a very pleasant 71-year-old gentleman who follows with Dr. Merlin mendiola as his primary care physician. He has a history of chronic obstructive pulmonary disease, previous chronic tobacco dependence however quit 20 years ago , hypertension, depression, benign prosthetic hypertrophy, diabetes mellitus, previous CVA/TIA, hypertension, hyperlipidemia. He also was noted to have a left upper lobe lesion measuring 1.9 x 1.6 cm without any previous metabolic uptake on PET scan in July 2016. Follow-up computed tomography scan of the chest in January 2017 revealed a more prominent was as compared to previous however the size was about the same. There is also a stable right upper lobe nodule measuring 6 mm. Presented here to the emergency room yesterday with complaints of increasing shortness of breath, cough and congestion. He did have some central chest discomfort as well. His chest x-ray revealed no acute pulmonary process. Troponins were negative. Influenza screen negative. No leukocytosis. He did have a T-max of 101.7. He is maintaining good O2 saturations in the upper 90s on 2 L/m per nasal cannula. He was slightly hypertensive, slightly tachycardic. He is seen today in consultation on the regular medical floor. He is resting quite comfortably in bed. He denies any further chest discomfort. No worsening shortness of breath. He has a loose nonproductive cough. Dyspnea with minimal exertion. He is currently afebrile. His been initiated on bronchodilators, IV Solu-Medrol and empiric antibiotics. On 11/28/2017 patient seen in follow-up. Improving, but still becomes dyspneic with ambulation even to the bathroom. Lung sounds are diminished, with a few rales over the left lower lobe. No wheezes were noted. No febrile episodes in the last 24 hours, vital signs are stable. On 2 liters per nasal cannula with O2 sat at 93%. Blood Culture is negative at the 24-hour barry. Objective - Vital Signs Vital signs: Vital Signs Temp 98.1 F 11/28/17 07:00 Pulse 96 11/28/17 10:51 Resp 16 11/28/17 07:00 BP 135/75 11/28/17 07:00 Pulse Ox 93 L 11/28/17 07:00 Intake & Output 11/27/17 11/28/17 11/28/17 18:59 06:59 18:59 Intake Total 1029 834.35 46.400 Balance 1029 834.35 46.400 Weight 94.347 kg Intake: Intake, IV Titration 279 834.35 46.400 Amount Insulin Regular 100 unit 79 34.35 46.400 In Sodium Chloride 0.9% 100 ml @ Titrate IV .Q0M NI Rx#:[id number] Magnesium Sulfate-D5w Pmx 200 1 gm In Dextrose/Water 1 100ml.bag @ 100 mls/hr IVPB Q1H NI Rx#: [id number] Sodium Chloride 0.9% 1, 800 000 ml @ 50 mls/hr IV . Q20H NI Rx#:[id number] Oral 750 Other: # Voids 1 3 3 - Exam GENERAL EXAM: Alert, active, comfortable in no apparent distress. HEAD: Normocephalic. EYES: Normal reaction of pupils, equal size. NOSE: Clear with pink turbinates. THROAT: No erythema or exudates. NECK: No masses, no JVD. CHEST: No chest wall deformity. LUNGS: Equal air entry with faint end expiratory wheeze bilaterally. Diminished. CVS: S1 and S2 normal with no audible murmur, regular rhythm. ABDOMEN: No hepatosplenomegaly, normal bowel sounds, no guarding or rigidity. SPINE: No scoliosis or deformity SKIN: No rashes CENTRAL NERVOUS SYSTEM: No focal deficits, tone is normal in all 4 extremities. EXTREMITIES: There is trace peripheral edema. No clubbing, no cyanosis. Peripheral pulses are intact. - Labs CBC & Chem 7: 11/26/17 19:04 11/27/17 14:21 Labs: Abnormal Lab Results - Last 24 Hours (Table) 11/26/17 11/27/17 11/27/17 Range/Units 19:04 14:12 14:15 Glucose (74-99) mg/dL POC Glucose (mg/dL) >600 H >600 H (75-99) mg/dL Hemoglobin A1c 10.3 H (4.0-6.0) % 11/27/17 11/27/17 11/27/17 Range/Units 14:21 15:31 16:01 Glucose 610 H* (74-99) mg/dL POC Glucose (mg/dL) 517 H 445 H (75-99) mg/dL Hemoglobin A1c (4.0-6.0) % 11/27/17 11/27/17 11/27/17 Range/Units 16:33 17:06 17:31 Glucose (74-99) mg/dL POC Glucose (mg/dL) 434 H 358 H 299 H (75-99) mg/dL Hemoglobin A1c (4.0-6.0) % 11/27/17 11/27/17 11/27/17 Range/Units 18:03 19:57 22:12 Glucose (74-99) mg/dL POC Glucose (mg/dL) 236 H 132 H 196 H (75-99) mg/dL Hemoglobin A1c (4.0-6.0) % 11/27/17 11/28/17 11/28/17 Range/Units 23:50 02:03 03:56 Glucose (74-99) mg/dL POC Glucose (mg/dL) 223 H 186 H 168 H (75-99) mg/dL Hemoglobin A1c (4.0-6.0) % 11/28/17 11/28/17 11/28/17 Range/Units 05:47 07:59 09:59 Glucose (74-99) mg/dL POC Glucose (mg/dL) 150 H 152 H 318 H (75-99) mg/dL Hemoglobin A1c (4.0-6.0) % 11/28/17 11/28/17 Range/Units 12:00 14:06 Glucose (74-99) mg/dL POC Glucose (mg/dL) 323 H 265 H (75-99) mg/dL Hemoglobin A1c (4.0-6.0) % Microbiology - Last 24 Hours (Table) 11/26/17 19:04 Blood Culture - Preliminary Blood No Growth after 24 hours Assessment and Plan Plan: Assessment: #1. Acute on chronic hypoxic respiratory failure secondary to acute exacerbation of COPD with tracheobronchitis, no clear evidence of pneumonia on the chest x-ray #2. Febrile illness, tachycardia with a rate of 116 BPM on presentation, influenza screen was negative. No evidence of leukocytosis, no clear evidence of pneumonia on the chest x-ray. #3. Atypical chest pain, in the right side of the chest, EKG showed sinus tachycardia with PVCs with a rate of 116 BPM, Q wave in V2, but no acute ST elevation. Troponin and cardiac enzymes were negative 1. #4. Hypomagnesemia, with a magnesium of 1.2, corrected per protocol. #3. Severe COPD, GOLD stage III, with baseline FEV1 of 33% of predicted or graft #4. Bilateral lower leg edema, present on admission, most likely related to cor pulmonale #5. Acute inflammatory arthropathy of the left foot, patient had been treated with Depo-Medrol IM, and prednisone taper, patient denies any trauma trauma #6. Diabetes mellitus II, with Solu-Medrol induced hyperglycemia #7. Solitary nodule in in the left upper lobe measuring 1.9 x 1.6 cm in size, with previous PET scan from July 2016 showing no significant metabolic activity spending to the left upper lobe lesion or the entire body. Being followed on an outpatient basis. The upcoming follow-up CT chest in January 2018 #8. History of coronary artery disease #9. Hypertension, hyperlipidemia #10. Chronic back pain #11 BPH #12. Nicotine dependence, in remission, carries 33 year smoking history of 2 pack a day Plan: No evidence of wheezing, we will decrease the Solu-Medrol to 40 mg every 8 hours , patient developed significant steroid-induced hyperglycemia, currently on insulin drip. Continue current antibiotics, sputum culture. Continue DuoNeb nebulized treatments, will add Pulmicort and Perforomist. Will await the results of the blood cultures. Further recommendations to follow. I performed a history & physical examination of the patient and discussed their management with my nurse practitioner, Ada Fraser. I reviewed the nurse practitioner's note and agree with the documented findings and plan of care. Lung sounds are extremely diminished with rales over left lower lobe. The findings and the impression was discussed with the patient. I attest to the documentation by the nurse practitioner. Time with Patient: Less than 30 <Rickey Snider - Last Filed: 11/28/17 18:26> Objective - Vital Signs Vital signs: Vital Signs Temp 98.1 F 11/28/17 07:00 Pulse 96 11/28/17 16:21 Resp 16 11/28/17 15:00 BP 133/66 11/28/17 15:00 Pulse Ox 100 11/28/17 15:00 Intake & Output 01/11/28/17 11/28/17 18:59 06:59 18:59 Intake Total 1029 834.35 57.000 Balance 1029 834.35 57.000 Weight 94.347 kg Intake: Intake, IV Titration 279 834.35 57.000 Amount Insulin Regular 100 unit 79 34.35 57.000 In Sodium Chloride 0.9% 100 ml @ Titrate IV .Q0M NI Rx#:[id number] Magnesium Sulfate-D5w Pmx 200 1 gm In Dextrose/Water 1 100ml.bag @ 100 mls/hr IVPB Q1H NI Rx#: [id number] Sodium Chloride 0.9% 1, 800 000 ml @ 50 mls/hr IV . Q20H NI Rx#:[id number] Oral 750 Other: # Voids 1 3 3 - Labs CBC & Chem 7: 11/26/17 19:04 11/27/17 14:21 Labs: Abnormal Lab Results - Last 24 Hours (Table) 11/26/17 11/27/17 11/27/17 Range/Units 19:04 19:57 22:12 POC Glucose (mg/dL) 132 H 196 H (75-99) mg/dL Hemoglobin A1c 10.3 H (4.0-6.0) % 11/27/17 11/28/17 11/28/17 Range/Units 23:50 02:03 03:56 POC Glucose (mg/dL) 223 H 186 H 168 H (75-99) mg/dL Hemoglobin A1c (4.0-6.0) % 11/28/17 11/28/17 11/28/17 Range/Units 05:47 07:59 09:59 POC Glucose (mg/dL) 150 H 152 H 318 H (75-99) mg/dL Hemoglobin A1c (4.0-6.0) % 11/28/17 11/28/17 11/28/17 Range/Units 12:00 14:06 16:05 POC Glucose (mg/dL) 323 H 265 H 236 H (75-99) mg/dL Hemoglobin A1c (4.0-6.0) % 11/28/17 Range/Units 18:04 POC Glucose (mg/dL) 201 H (75-99) mg/dL Hemoglobin A1c (4.0-6.0) % Microbiology - Last 24 Hours (Table) 11/26/17 19:04 Blood Culture - Preliminary Blood No Growth after 24 hours Assessment and Plan Plan: Joint evaluations was done along with the nurse practitioner. The patient is improving. Taper steroids. Tested information above. We'll follow. Possible discharge in a.m.
[2017-11-28 16:09] LABS: Glucose,Whole Blood 236 mg/dL (75-99)
--- NOTE | 2017-11-28 17:11 | PN ---
PROGRESS NOTE DATE OF SERVICE: 11/28/2017. INTERVAL HISTORY: This 71-year-old gentleman who was admitted with COPD exacerbation as well as left upper lobe nodule is being closely monitored. Patient is on IV steroids. The patient is on IV insulin drip. No chest pain. No palpitations. No fever. PHYSICAL EXAM: Alert and oriented x3. The pulse is 92. Blood pressure 135/75, respirations 16, temperature 98.1, pulse ox 94% on 2 L. HEENT is conjunctivae normal. Oral mucosa moist. Neck is no jugular venous distention. No carotid bruit. No lymph node enlargement. Cardiovascular System: S1, S2 muffled. Respiration: Breath sounds diminished at the bases. A few scattered rhonchi and crackles. Breathing efforts are markedly increased. ABDOMEN: Soft, nontender. No mass palpable. Legs no edema. No swelling. Central nervous system: Higher functions as mentioned earlier. Moves all four limbs. No focal motor or sensory deficits. Lymphatics: No lymph nodes palpable in the neck, axillae or groin. Skin no ulcer, rashes or bleeding. LABORATORY DATA: WBC, glucose 312, 318, 323, 265. Other labs are not available. ASSESSMENT: 1. Chronic obstructive pulmonary disease exacerbation with acute purulent tracheobronchitis. 2. Left upper nodule abutting the mediastinum. 3. Acute on chronic hypoxic respiratory failure. 4. Cerebrovascular accident, transient ischemic attack. 5. Diabetes type 2. 6. Hypertension uncontrolled. 7. Hypertension. 8. Hyperlipidemia. 9. History of coronary artery disease. 10.History of syncope. 11.History of prostate disorder. 12.History of back pain/degenerative joint disease. 13.Anxiety, depression. 14.Remote history of nicotine dependence. 15.FULL CODE. RECOMMENDATIONS AND DISCUSSION: Recommend to continue current medications, continue to monitor and symptomatic treatment. Otherwise at this time continue with steroids. Closely follow with Dr. Snider. Continue the rest of the medications. We will follow. MMODL / IJN: [id number] /
[2017-11-28] MEDS: methylPREDNISolone SOD SUCCI 40 MG/ML 1 ML VIAL IV SCH (17:42)
[2017-11-28 18:08] LABS: Glucose,Whole Blood 201 mg/dL (75-99)
[2017-11-28 19:46] LABS: Glucose,Whole Blood 184 mg/dL (75-99)
[2017-11-28] MEDS: cefTRIAXone IN SWFI 1,000 MG/10 ML SYRINGE IVP SCH (20:13)
[2017-11-28 22:06] LABS: Glucose,Whole Blood 245 mg/dL (75-99)
[2017-11-29 00:09] LABS: Glucose,Whole Blood 286 mg/dL (75-99)
[2017-11-29] MEDS: methylPREDNISolone SOD SUCCI 40 MG/ML 1 ML VIAL IV SCH ×2 (00:35→10:37)
[2017-11-29 02:27] LABS: Glucose,Whole Blood 269 mg/dL (75-99)
[2017-11-29 04:04] LABS: Glucose,Whole Blood 279 mg/dL (75-99)
[2017-11-29 06:07] LABS: Glucose,Whole Blood 211 mg/dL (75-99)
[2017-11-29] MEDS: IPRATROPIUM-ALBUTEROL 3 ML NEB INHALATION SCH ×3 (07:28→15:46)
[2017-11-29] MEDS: BUDESONIDE 1 MG/2 ML NEBU INHALATION SCH (07:28)
[2017-11-29] MEDS: FORMOTEROL FUMARATE 20 MCG/2 ML NEBU INHALATION SCH (07:28)
[2017-11-29 08:05] LABS: Basophils % (A) 0 %; Eosinophils % (A) 0 %; HCT 35.8 % (39.0-53.0); HGB 11.9 gm/dL (13.0-17.5); Lymphocytes # (A) 0.2 k/uL (1.0-4.8); Lymphocytes % (A) 1 %; MCH 29.9 pg (25.0-35.0); MCHC 33.3 g/dL (31.0-37.0); MCV 89.8 fL (80.0-100.0); Mean Platelet Volume 7.7; Monocytes # (A) 0.5 k/uL (0-1.0); Monocytes % (A) 3 %; Neutrophils # (A) 16.6 k/uL (1.3-7.7); Neutrophils % (A) 95 %; Platelet Count 174 k/uL (150-450); RBC 3.99 m/uL (4.30-5.90); RDW 13.8 % (11.5-15.5); WBC 17.4 k/uL (3.8-10.6)
[2017-11-29 08:09] LABS: Glucose,Whole Blood 156 mg/dL (75-99)
[2017-11-29] MEDS: INSULIN REGULAR 100 UNIT in SODIUM CHLORIDE 0.9% 100 ML IV SCH (08:12)
[2017-11-29] MEDS: INSULIN ASPART 100 UNIT/ML 1 ML 10 ML VIAL SQ SCH (08:21)
[2017-11-29 08:26] LABS: Calcium 9.5 mg/dL (8.4-10.2); Potassium 4.5 mmol/L (3.5-5.1)
--- NOTE | 2017-11-29 09:16 | P.PN ---
<Ada Fraser M - Last Filed: 11/29/17 09:11> Subjective Progress Note Date: 11/29/17 Principal diagnosis: Acute exacerbation of chronic obstructive pulmonary disease This is a very pleasant 71-year-old gentleman who follows with Dr. Merlin mendiola as his primary care physician. He has a history of chronic obstructive pulmonary disease, previous chronic tobacco dependence however quit 20 years ago , hypertension, depression, benign prosthetic hypertrophy, diabetes mellitus, previous CVA/TIA, hypertension, hyperlipidemia. He also was noted to have a left upper lobe lesion measuring 1.9 x 1.6 cm without any previous metabolic uptake on PET scan in July 2016. Follow-up computed tomography scan of the chest in January 2017 revealed a more prominent was as compared to previous however the size was about the same. There is also a stable right upper lobe nodule measuring 6 mm. Presented here to the emergency room yesterday with complaints of increasing shortness of breath, cough and congestion. He did have some central chest discomfort as well. His chest x-ray revealed no acute pulmonary process. Troponins were negative. Influenza screen negative. No leukocytosis. He did have a T-max of 101.7. He is maintaining good O2 saturations in the upper 90s on 2 L/m per nasal cannula. He was slightly hypertensive, slightly tachycardic. He is seen today in consultation on the regular medical floor. He is resting quite comfortably in bed. He denies any further chest discomfort. No worsening shortness of breath. He has a loose nonproductive cough. Dyspnea with minimal exertion. He is currently afebrile. His been initiated on bronchodilators, IV Solu-Medrol and empiric antibiotics. On 11/28/2017 patient seen in follow-up. Improving, but still becomes dyspneic with ambulation even to the bathroom. Lung sounds are diminished, with a few rales over the left lower lobe. No wheezes were noted. No febrile episodes in the last 24 hours, vital signs are stable. On 2 liters per nasal cannula with O2 sat at 93%. Blood Culture is negative at the 24-hour barry. On 11/29/2017 patient seen in follow-up. He is continuously improving, lung sounds are diminished, but no signs of acute respiratory distress. Patient has been up ambulating, tolerating it well. Patient has been afebrile, 2 L per nasal cannula with O2 sat 93%. No cough, no sputum production. From pulmonary standpoint he can be discharged home. Objective - Vital Signs Vital signs: Vital Signs Temp 98.0 F 11/29/17 01:06 Pulse 100 11/29/17 07:47 Resp 17 11/29/17 01:06 BP 113/55 11/29/17 01:06 Pulse Ox 93 L 11/29/17 01:06 Intake & Output 11/28/17 11/29/17 11/29/17 18:59 06:59 18:59 Intake Total 67.000 1365.483 7.2 Balance 67.000 1365.483 7.2 Weight 94.347 kg Intake: Intake, IV Titration 67.000 465.483 7.2 Amount Insulin Regular 100 unit 67.000 65.483 7.2 In Sodium Chloride 0.9% 100 ml @ Titrate IV .Q0M NI Rx#:[id number] Sodium Chloride 0.9% 1, 400 000 ml @ 50 mls/hr IV . Q20H NI Rx#:[id number] Oral 900 Other: # Voids 3 3 - Exam GENERAL EXAM: Alert, active, comfortable in no apparent distress. HEAD: Normocephalic. EYES: Normal reaction of pupils, equal size. NOSE: Clear with pink turbinates. THROAT: No erythema or exudates. NECK: No masses, no JVD. CHEST: No chest wall deformity. LUNGS: Equal air entry. Lung sounds are diminished.no rhonchi no wheezing noted CVS: S1 and S2 normal with no audible murmur, regular rhythm. ABDOMEN: No hepatosplenomegaly, normal bowel sounds, no guarding or rigidity. SPINE: No scoliosis or deformity SKIN: No rashes CENTRAL NERVOUS SYSTEM: No focal deficits, tone is normal in all 4 extremities. EXTREMITIES: There is trace peripheral edema. No clubbing, no cyanosis. Peripheral pulses are intact. - Labs CBC & Chem 7: 11/29/17 07:24 11/29/17 07:24 Labs: Abnormal Lab Results - Last 24 Hours (Table) 11/28/17 11/28/17 11/28/17 Range/Units 09:59 12:00 14:06 WBC (3.8-10.6) k/uL RBC (4.30-5.90) m/uL Hgb (13.0-17.5) gm/dL Hct (39.0-53.0) % Neutrophils # (1.3-7.7) k/uL Lymphocytes # (1.0-4.8) k/uL BUN (9-20) mg/dL Creatinine (0.66-1.25) mg/dL Glucose (74-99) mg/dL POC Glucose (mg/dL) 318 H 323 H 265 H (75-99) mg/dL 11/28/17 11/28/17 11/28/17 Range/Units 16:05 18:04 19:32 WBC (3.8-10.6) k/uL RBC (4.30-5.90) m/uL Hgb (13.0-17.5) gm/dL Hct (39.0-53.0) % Neutrophils # (1.3-7.7) k/uL Lymphocytes # (1.0-4.8) k/uL BUN (9-20) mg/dL Creatinine (0.66-1.25) mg/dL Glucose (74-99) mg/dL POC Glucose (mg/dL) 236 H 201 H 184 H (75-99) mg/dL 11/28/17 11/29/17 11/29/17 Range/Units 22:03 00:02 02:24 WBC (3.8-10.6) k/uL RBC (4.30-5.90) m/uL Hgb (13.0-17.5) gm/dL Hct (39.0-53.0) % Neutrophils # (1.3-7.7) k/uL Lymphocytes # (1.0-4.8) k/uL BUN (9-20) mg/dL Creatinine (0.66-1.25) mg/dL Glucose (74-99) mg/dL POC Glucose (mg/dL) 245 H 286 H 269 H (75-99) mg/dL 11/29/17 11/29/17 11/29/17 Range/Units 04:02 06:04 07:24 WBC (3.8-10.6) k/uL RBC (4.30-5.90) m/uL Hgb (13.0-17.5) gm/dL Hct (39.0-53.0) % Neutrophils # (1.3-7.7) k/uL Lymphocytes # (1.0-4.8) k/uL BUN 55 H (9-20) mg/dL Creatinine 1.52 H (0.66-1.25) mg/dL Glucose 150 H (74-99) mg/dL POC Glucose (mg/dL) 279 H 211 H (75-99) mg/dL 11/29/17 11/29/17 Range/Units 07:24 08:07 WBC 17.4 H (3.8-10.6) k/uL RBC 3.99 L (4.30-5.90) m/uL Hgb 11.9 L (13.0-17.5) gm/dL Hct 35.8 L (39.0-53.0) % Neutrophils # 16.6 H (1.3-7.7) k/uL Lymphocytes # 0.2 L (1.0-4.8) k/uL BUN (9-20) mg/dL Creatinine (0.66-1.25) mg/dL Glucose (74-99) mg/dL POC Glucose (mg/dL) 156 H (75-99) mg/dL Microbiology - Last 24 Hours (Table) 11/28/17 08:34 Gram Stain - Preliminary Sputum 11/26/17 19:04 Blood Culture - Preliminary Blood No Growth after 48 hours Assessment and Plan Plan: Assessment: #1. Acute on chronic hypoxic respiratory failure secondary to acute exacerbation of COPD with tracheobronchitis, no clear evidence of pneumonia on the chest x-ray #2. Febrile illness, tachycardia with a rate of 116 BPM on presentation, influenza screen was negative. No evidence of leukocytosis, no clear evidence of pneumonia on the chest x-ray. #3. Atypical chest pain, in the right side of the chest, EKG showed sinus tachycardia with PVCs with a rate of 116 BPM, Q wave in V2, but no acute ST elevation. Troponin and cardiac enzymes were negative 1. #4. Hypomagnesemia, with a magnesium of 1.2, corrected per protocol. #3. Severe COPD, GOLD stage III, with baseline FEV1 of 33% of predicted or graft #4. Bilateral lower leg edema, present on admission, most likely related to cor pulmonale #5. Acute inflammatory arthropathy of the left foot, patient had been treated with Depo-Medrol IM, and prednisone taper, patient denies any trauma trauma #6. Diabetes mellitus II, with Solu-Medrol induced hyperglycemia #7. Solitary nodule in in the left upper lobe measuring 1.9 x 1.6 cm in size, with previous PET scan from July 2016 showing no significant metabolic activity spending to the left upper lobe lesion or the entire body. Being followed on an outpatient basis. The upcoming follow-up CT chest in January 2018 #8. History of coronary artery disease #9. Hypertension, hyperlipidemia #10. Chronic back pain #11 BPH #12. Nicotine dependence, in remission, carries 33 year smoking history of 2 pack a day Plan: Patient is doing well, stable from pulmonary standpoint. We'll obtain a room air oxygen saturation. From pulmonary standpoint he can be discharged home today on prednisone taper, outpatient course of Ceftin, his maintenance inhalers and nebulized treatments. Follow-up appointment with Dr. Riley in 1 week. I performed a history & physical examination of the patient and discussed their management with my nurse practitioner, Ada Fraser. I reviewed the nurse practitioner's note and agree with the documented findings and plan of care. Lung sounds are diminished. The findings and the impression was discussed with the patient. I attest to the documentation by the nurse practitioner. Time with Patient: Less than 30 <Rickey Snider - Last Filed: 12/02/17 16:34> Objective - Vital Signs Vital signs: Vital Signs Temp 97.7 F 11/29/17 14:45 Pulse 100 11/29/17 15:55 Resp 16 11/29/17 14:45 BP 154/71 11/29/17 14:45 Pulse Ox 95 11/29/17 14:45 - Labs CBC & Chem 7: 11/29/17 07:24 11/29/17 07:24 Labs: Microbiology - Last 24 Hours (Table) 11/26/17 19:04 Blood Culture - Preliminary Blood No Growth after 120 hours Assessment and Plan Plan: This is a joint evaluations was done along with nurse practitioner. I tested above-mentioned information per the patient will be discharged on a course of Ceftin and a prednisone burst taper. Resume outpatient respiratory medications. No chest pain. Electrodes have been replaced. COPD severe with an FEV1 of 33%. The patient will be followed up in our office.
[2017-11-29 10:10] LABS: Glucose,Whole Blood 261 mg/dL (75-99)
[2017-11-29] MEDS: HEPARIN SODIUM,PORCINE 5,000 UNIT/ML 1 ML VIAL SQ SCH (10:11)
[2017-11-29] MEDS: ISOSORBIDE MONONITRATE ER 30 MG TAB.ER.24H PO SCH (10:11)
[2017-11-29] MEDS: guaiFENesin 600 MG TABLET.ER PO SCH (10:12)
[2017-11-29] MEDS: PARoxetine 20 MG TAB PO SCH (10:12)
[2017-11-29] MEDS: TAMSULOSIN 0.4 MG CAP.ER.24H PO SCH (10:12)
[2017-11-29] MEDS: amLODIPine 5 MG TAB PO SCH (10:12)
[2017-11-29] MEDS: LISINOPRIL 10 MG TAB PO SCH (10:12)
[2017-11-29 10:58] VITALS: RESP 16
[2017-11-29 12:04] LABS: Glucose,Whole Blood 249 mg/dL (75-99)
[2017-11-29] MEDS ORDERED: INSULIN DETEMIR 100 UNIT/ML 10 ML VIAL SQ ONE (13:00)
[2017-11-29] MEDS ORDERED: INSULIN ASPART 100 UNIT/ML 1 ML 10 ML VIAL SQ SCH ×2 (13:28→17:30)
[2017-11-29 14:15] LABS: Glucose,Whole Blood 191 mg/dL (75-99)
[2017-11-29 14:46] VITALS: BP 154/71; TEMP 97.7
[2017-11-29 15:55] VITALS: PULSE 100
--- NOTE | 2017-11-30 08:55 | DS ---
DISCHARGE SUMMARY DATE OF SERVICE: 11/29/17. FINAL DIAGNOSES: 1. Chronic obstructive pulmonary disease exacerbation with acute purulent tracheobronchitis. 2. Left upper lobe nodule abutting the mediastinum. 3. Acute on chronic hypoxic respiratory failure. 4. Cerebrovascular accident, transient ischemic attack. 5. Diabetes type 2. 6. Hypertension, uncontrolled. 7. Hyperlipidemia. 8. History of coronary artery disease. 9. Syncope. 10.History of prostate disorder. 11.History of back pain/degenerative joint disease. 12.History of anxiety, depression. 13.Remote history of nicotine dependence. 14.FULL CODE. DISCHARGE DISPOSITION: The patient is being discharged in stable condition with guarded prognosis. HISTORY OF PRESENT ILLNESS: This 72-year-old gentleman with a past medical history of multiple medical problems was admitted with COPD acute exacerbation with purulent tracheobronchitis. Patient treated with antibiotics, bronchodilators and as well as IV steroids. Dr. Snider saw the patient. Patient improved significantly. The patient being discharged in stable condition with guarded prognosis. EXAM: Vital stable. Cardiovascular System: S1, S2 muffled. Respirations: A few scattered rhonchi. ABDOMEN: Soft. Central nervous system: No focal deficits. DISCHARGE ADVICE AND MEDICATIONS: 1. Diet is cardiac diet. 2. Activity limited until followup. 3. Follow up with Dr. Boyer in 2-3 days. MEDICATIONS ARE: 1. Tylenol 650 q.6h p.r.n. 2. Norvasc 5 mg p.o. daily. 3. Ceftin 500 mg p.o. b.i.d. for 5 days. 4. Mucinex 60 mg p.o. b.i.d. 5. Levemir 72 subcu q.h.s. 6. Humalog scale a.c. and h.s. as before. 7. Albuterol and Atrovent updraft q.i.d. and p.r.n. 8. Imdur ER 30 mg p.o. daily. 9. Zestril 10 mg p.o. daily. 10.Paxil 20 mg p.o. daily. 11.Prednisone taper that is 40 mg daily for 3 days, 30 for 3 days, 20 for 3 days, 10 for 3 days and then discontinue. 12.Flomax 0.4 daily. Once again, the patient is being discharged in stable condition with guarded prognosis. MMODL / IJN: [id number] /
[2017-11-30] MEDS ORDERED: predniSONE 20 MG TAB PO SCH (09:00)
== END 2017-11-29 16:25 | disposition home or self-care (01) | DRG 190 ==
LOC: EC 18:44 → 6SEL 21:49 → 3SUR 22:15
PROVIDERS: ADMIT Hospitalist; ATTEND Hospitalist
DX: J44.0 Chronic obstructive pulmonary disease with (acute) lower respiratory infection (principal); J96.21 Acute and chronic respiratory failure with hypoxia; E11.65 Type 2 diabetes mellitus with hyperglycemia; I27.81 Cor pulmonale (chronic); E83.42 Hypomagnesemia; J20.9 Acute bronchitis, unspecified; J44.1 Chronic obstructive pulmonary disease with (acute) exacerbation; E78.5 Hyperlipidemia, unspecified; F17.201 Nicotine dependence, unspecified, in remission; F32.9 Major depressive disorder, single episode, unspecified; F41.9 Anxiety disorder, unspecified; G89.4 Chronic pain syndrome; I49.3 Ventricular premature depolarization; I10 Essential (primary) hypertension; I25.10 Atherosclerotic heart disease of native coronary artery without angina pectoris; I25.2 Old myocardial infarction; M12.9 Arthropathy, unspecified; N40.0 Benign prostatic hyperplasia without lower urinary tract symptoms; Z79.4 Long term (current) use of insulin; Z79.899 Other long term (current) drug therapy; Z83.3 Family history of diabetes mellitus; Z86.73 Personal history of transient ischemic attack (TIA), and cerebral infarction without residual deficits; Z88.1 Allergy status to other antibiotic agents; R91.1 Solitary pulmonary nodule; M54.9 Dorsalgia, unspecified; T38.0X5A Adverse effect of glucocorticoids and synthetic analogues, initial encounter
CPT/HCPCS: 36415; 71046; 80048; 80053; 82550; 82553; 82947; 83036; 83605; 83735; 84484; 85025; 85610; 85730; 87040; 87070; 87205; 87502; 93005; 94640; 96365; 99291

== ENCOUNTER → 2017-12-04 | Outpatient (CLI) | payer MEDICARE, OTHER ==
[2017-12-04 14:30] LABS: Basophils % (A) 0 %; Eosinophils # (A) 0.1 k/uL (0-0.7); Eosinophils % (A) 1 %; HCT 38.4 % (39.0-53.0); HGB 12.6 gm/dL (13.0-17.5); Lymphocytes # (A) 0.8 k/uL (1.0-4.8); Lymphocytes % (A) 8 %; MCH 30.1 pg (25.0-35.0); MCHC 32.7 g/dL (31.0-37.0); MCV 91.8 fL (80.0-100.0); Mean Platelet Volume 7.1; Monocytes # (A) 0.6 k/uL (0-1.0); Monocytes % (A) 6 %; Neutrophils % (A) 84 %; Platelet Count 172 k/uL (150-450); RBC 4.18 m/uL (4.30-5.90); RDW 13.6 % (11.5-15.5); WBC 9.6 k/uL (3.8-10.6)
[2017-12-04 14:33] LABS: Anion Gap 6 mmol/L; Blood Urea Nitrogen 33 mg/dL (9-20); Calcium 9.3 mg/dL (8.4-10.2); Carbon Dioxide 30 mmol/L (22-30); Chloride 104 mmol/L (98-107); Glucose 212 mg/dL (74-99); Potassium 5.1 mmol/L (3.5-5.1); Sodium 140 mmol/L (137-145)
== END | disposition home or self-care (01) ==
LOC: LABWHC1 13:42
PROVIDERS: ATTEND Nurse Practitioner
DX: J45.901 Unspecified asthma with (acute) exacerbation (principal)
CPT/HCPCS: 36415; 80048; 85025

== ENCOUNTER → 2018-03-26 | Outpatient (CLI) | payer MEDICARE, OTHER ==
--- NOTE | 2018-03-26 08:20 | CT ---
EXAMINATION TYPE: CT cervical spine wo con DATE OF EXAM: 03/26/2018 COMPARISON: 07/09/2014 HISTORY: 72-year-old male with right-sided neck pain, Cervicalgia TECHNIQUE: Contiguous axial scanning of the cervical spine without IV contrast. Coronal and sagittal reconstructions performed. CT DLP: 514.5 mGycm Automated exposure control for dose reduction was used. FINDINGS: No craniocervical junction abnormality, predental space widening, or prevertebral soft tissue swellin g. However, there is degenerative change at the C1 dens articulation and some calcified ligamentous thic kening in the region of the transverse ligament impressing onto the ventral thecal sac. Thickening is progressed from 07/09/2014. No discrete erosive changes are seen. There is severe degenerative change at the right lateral mass articulation of C1 and C2 with bone on bone articulation and subchondral cystic change. Reversal of the normal cervical lordosis centered at C5-C6 with moderate to advanced disc/endplate de generative change particularly from C4 through C7 levels. Disc osteophyte complexes contribute to moderate spinal canal stenosis particularly at C4-C5 and C5-C 6 and mild at 3-C4. Assessment of the spinal canal from C6 and below is limited due to artifact from the patient's should ers. Scattered facet and uncovertebral joint degenerative change particularly in the mid to lower cervical spine. There is no acute fracture of the cervical spine. Alignment is maintained. At C2-C3, changes result in moderate left and mild right neuroforaminal stenosis. At C3-C4, changes result in moderate to severe right and moderate left neuroforaminal stenosis. At C4-C5 changes result in moderate to severe right greater than left neuroforaminal stenosis. At C5-C6, changes result in severe bilateral neural foraminal stenosis. At C6/C7, changes result in mild bilateral neuroforaminal stenosis. At C7-T1, no significant foraminal stenosis. Some adherent mucoid debris along the right lateral independent trachea. IMPRESSION: 1. DEGENERATIVE CHANGE AT THE C1 DENS ARTICULATION WITH PROGRESSIVE THICKENING ALONG THE TRANSVERSE L IGAMENT IMPRESSING ON THE VENTRAL THECAL SAC. NO [place] CANAL COMPROMISE HERE. 2. SEVERE DEGENERATIVE CHANGE ALONG THE RIGHT LATERAL MASS ARTICULATION OF C1-C2 WITH [id number] AB UTMENT. 3. MODERATE TO ADVANCED MULTILEVEL SPONDYLOTIC CHANGE. CHANGES RESULT IN MODERATE SPINAL CANAL STENOS ES AT C4-C5 AND C5-C6 AND VARIABLE MODERATE TO SEVERE BILATERAL NEUROFORAMINAL STENOSES OUTLINED A GILBERT.
== END | disposition home or self-care (01) ==
LOC: RADCTMAIN 07:19
PROVIDERS: ATTEND Psychiatry & Neurology Neurology
DX: M48.02 Spinal stenosis, cervical region (principal); M99.71 Connective tissue and disc stenosis of intervertebral foramina of cervical region; M47.812 Spondylosis without myelopathy or radiculopathy, cervical region
CPT/HCPCS: 72125

== ENCOUNTER 2018-05-04 18:14 | Inpatient (IN) | payer MEDICARE, OTHER ==
[2018-05-04] MEDS ORDERED: methylPREDNISolone SOD SUCCI 125 MG/2 ML VIAL IV STA (19:08)
[2018-05-04] MEDS ORDERED: SODIUM CHLORIDE 0.9% 1,000 ML IV STA ×2 (19:08)
[2018-05-04] MEDS ORDERED: IPRATROPIUM-ALBUTEROL 3 ML NEB INHALATION STA (19:08)
--- NOTE | 2018-05-04 19:14 | ED ---
General Adult HPI - General Chief complaint: Extremity Problem,Nontraumatic Stated complaint: Cellulitis Time Seen by Provider: 05/04/18 18:59 Source: patient, RN notes reviewed, old records reviewed Mode of arrival: ambulatory Limitations: no limitations - History of Present Illness Initial comments: 72-year-old male presents emergency department today chief complaint of increased cough and shortness of breath. He also complains of left lower extremity redness. He does have an abrasion over his leg and thinks it is now has an infection. He was started on Levaquin by his oriental rug stretcher 5 days ago. He's taken levaquin for 5 days reports he is continuing to have a productive cough. Patient states that has helped somewhat with concerned now that he has a cellulitis and of a lung infection. He denies any fever or chills. Reports that he has no chest pain at this time. - Related Data Home Medications Medication Instructions Recorded Confirmed Insulin Detemir [Levemir] 72 unit SQ HS 07/09/14 05/04/18 Isosorbide Mononitrate ER [Imdur] 30 mg PO DAILY 07/09/14 05/04/18 Lisinopril [Zestril] 10 mg PO DAILY 07/09/14 05/04/18 amLODIPine [Norvasc] 5 mg PO DAILY 07/09/14 05/04/18 PARoxetine [Paxil] 20 mg PO DAILY 11/15/14 05/04/18 Clopidogrel [Plavix] 75 mg PO DAILY 05/04/18 05/04/18 Furosemide [Lasix] 20 mg PO DAILY 05/04/18 05/04/18 Levofloxacin [Levaquin] 500 mg PO DAILY 05/04/18 05/04/18 Potassium Chloride ER [K-Dur 20] 20 meq PO DAILY 05/04/18 05/04/18 traMADol HCL [Ultram] 50 mg PO TID PRN 05/04/18 05/04/18 Previous Rx's Medication Instructions Recorded Ipratropium-Albuterol Nebulize 3 ml INHALATION QID 30 Days #2 box 11/29/17 [Duoneb 0.5 mg-3 mg/3 ml Soln] Allergies Allergy/AdvReac Type Severity Reaction Status Date / Time levofloxacin [From Levaquin] Allergy Rash/Hives Verified 06/30/18 18:42 Review of Systems ROS Statement: Those systems with pertinent positive or pertinent negative responses have been documented in the HPI. ROS Other: All systems not noted in ROS Statement are negative. Past Medical History Past Medical History: Coronary Artery Disease (CAD), COPD, CVA/TIA, Diabetes Mellitus, Hyperlipidemia, Hypertension, Myocardial Infarction ([place]), Pneumonia, Prostate Disorder, Syncope Additional Past Medical History / Comment(s): COPD, diabetes mellitus type 2, BPH, left upper lobe lesion measuring 1.9 x 1.6 cm in size and not showing any metabolic activity, coronary artery disease with previous [place], diabetes mellitus , hypertension, hyperlipidemia, chronic back pain, BPH Last Myocardial Infarction Date:: 05/24/12 History of Any Multi-Drug Resistant Organisms: None Reported Past Surgical History: Back Surgery, Cholecystectomy, Heart Catheterization, Hernia Repair Additional Past Surgical History / Comment(s): 2011 cardiac cath-treated medically, low back surgery, ROBERTO CATARACT SX, abdominal hernia repair, bilateral cataract removal, bronchoscopy. Past Anesthesia/Blood Transfusion Reactions: No Reported Reaction Past Psychological History: Anxiety, Depression Smoking Status: Former smoker Past Alcohol Use History: Rare Past Drug Use History: None Reported - Past Family History Mother Family Medical History: No Reported History Father Family Medical History: Diabetes Mellitus Additional Family Medical History / Comment(s): Father of diabetes at the age of 83 yrs. General Exam - General Exam Comments Initial Comments: 72-year-old male. Alert and oriented. No distress. Limitations: no limitations General appearance: alert, in no apparent distress Head exam: Present: atraumatic, normocephalic, normal inspection Eye exam: Present: normal appearance, PERRL, EOMI. Absent: scleral icterus, conjunctival injection, periorbital swelling ENT exam: Present: normal exam, mucous membranes moist Neck exam: Present: normal inspection. Absent: tenderness, meningismus, lymphadenopathy Respiratory exam: Present: wheezes (Does have some wheezing bilaterally. Productive cough.). Absent: normal lung sounds bilaterally, respiratory distress, rales, rhonchi, stridor Cardiovascular Exam: Present: regular rate, normal rhythm, normal heart sounds. Absent: systolic murmur, diastolic murmur, rubs, gallop, clicks GI/Abdominal exam: Present: soft, normal bowel sounds. Absent: distended, tenderness, guarding, rebound, rigid Extremities exam: Present: normal inspection, full ROM, normal capillary refill. Absent: tenderness, pedal edema, joint swelling, calf tenderness Left Knee exam: Present: normal inspection, full ROM Lower Leg exam: Present: tenderness (Patient has some minor tenderness over the anterior st[place]. There is erythema and an abrasion over the anterior aspect of the leg. Abrasion measures proximally 4 cm.), erythema. Absent: normal inspection, swelling, abrasion, palpable cord, Homans' sign Ankle exam: Present: normal inspection, full ROM Foot/Toe exam: Present: normal inspection, full ROM Neurovascular tendon exam: Present: no vascular compromise Gait: observed and normal Back exam: Present: normal inspection, full ROM Neurological exam: Present: alert, oriented X3, CN II-XII intact Psychiatric exam: Present: normal affect, normal mood Skin exam: Present: warm, dry, intact, normal color. Absent: rash Course Vital Signs 05/04/18 18:40 Temperature 98.1 F Pulse Rate 99 Respiratory 18 Rate Blood Pressure 151/71 O2 Sat by Pulse 94 L Oximetry EKG Findings - EKG Comments: EKG Findings:: EKG performed at 2030 shows normal sinus rhythm septal infarct. Abnormal EKG. Ventricular rate of 82 bpm.. Interval is 160 ms. QRS duration 82 ms QT QTC 360/420 ms. Medical Decision Making - Medical Decision Making 72-year-old male presents today chief complaint of left lower leg redness, as well as increased cough productive sputum. Has history of COPD. Vital signs are stable emergency department. I did complete an ultrasound of the lower extremity and is positive for a DVT. He is on Plavix. Patient reports he has no significant chest pain at this time. Lungs do have some wheezing. Given Solu-Medrol and DuoNeb breathing treatment. Chest x-rays negative for any acute process. With a positive DVT we will do a CT anterior chest to rule out any PE. Start the Patient on heparin, steroids for COPD exacerbation and this continued antibiotics. Patient agrees to treatment plan and understands admission. - Lab Data Result diagrams: 05/04/18 20:15 05/04/18 20:15 Lab Results 05/04/18 05/04/18 05/04/18 Range/Units 20:15 20:15 20:15 WBC 8.7 (3.8-10.6) k/uL RBC 4.07 L (4.30-5.90) m/uL Hgb 12.2 L (13.0-17.5) gm/dL Hct 36.9 L (39.0-53.0) % MCV 90.7 (80.0-100.0) fL MCH 30.1 (25.0-35.0) pg MCHC 33.1 (31.0-37.0) g/dL RDW 13.6 (11.5-15.5) % Plt Count 219 (150-450) k/uL Neutrophils % 82 % Lymphocytes % 8 % Monocytes % 6 % Eosinophils % 2 % Basophils % 0 % Neutrophils # 7.2 (1.3-7.7) k/uL Lymphocytes # 0.7 L (1.0-4.8) k/uL Monocytes # 0.5 (0-1.0) k/uL Eosinophils # 0.2 (0-0.7) k/uL Basophils # 0.0 (0-0.2) k/uL PT 10.6 (9.0-12.0) sec INR 1.1 (<1.2) APTT 23.3 (22.0-30.0) sec Sodium 136 L (137-145) mmol/L Potassium 4.9 (3.5-5.1) mmol/L Chloride 101 (98-107) mmol/L Carbon Dioxide 23 (22-30) mmol/L Anion Gap 12 mmol/L BUN 39 H (9-20) mg/dL Creatinine 1.50 H (0.66-1.25) mg/dL Est GFR (CKD-EPI)AfAm 54 (>60 ml/min/1.73 sqM) Est GFR (CKD-EPI)NonAf 46 (>60 ml/min/1.73 sqM) Glucose 308 H (74-99) mg/dL Calcium 9.6 (8.4-10.2) mg/dL Total Bilirubin 0.3 (0.2-1.3) mg/dL AST 25 (17-59) U/L ALT 43 (21-72) U/L Alkaline Phosphatase 97 (38-126) U/L Total Protein 5.8 L (6.3-8.2) g/dL Albumin 3.3 L (3.5-5.0) g/dL - Radiology Data Radiology results: report reviewed Chest x-ray shows prominence of the left Tylenol appears chronic follow-up is indicated. Tib-fib x-ray shows correlate with cellulitis. Follow-up is indicated. Soft tissue swelling is present. Nonocclusive thrombus present in the central portion of the femoral vein, common femoral vein compatible with DVT of indeterminate age. Disposition Clinical Impression: COPD (chronic obstructive pulmonary disease), Left femoral vein DVT, Failure of outpatient treatment Disposition: ADMITTED IP TO THIS HOSP Condition: Stable Is patient prescribed a controlled substance at d/c from ED?: No When asked, does pt state using other controlled substances?: No If prescribed controlled substance>3 days was MAPS reviewed?: No If opioid is for acute pain is fill amount 7 days or less?: No If Rx opioid, was Start Talking consent form obtained?: No Referrals: Renzo Boyer MD [Primary Care Provider] - 1-2 days Time of Disposition: 20:56
--- NOTE | 2018-05-04 20:15 | XR ---
EXAMINATION TYPE: XR chest 2V DATE OF EXAM: 05/04/2018 COMPARISON: Prior chest x-ray 11/26/2017, 04/16/2018 and 09/07/2016 HISTORY: Difficulty breathing TECHNIQUE: Frontal and lateral views of the chest are obtained. FINDINGS: There is no focal air space opacity, pleural effusion, or pneumothorax seen. The cardiac silhouette size is stable. Abnormal density at the left hilar region has been seen on previous exam s. Increased lung volume may be indicative of COPD. The osseous structures are intact. IMPRESSION: Prominence of the left hilum appears chronic, follow-up as indicated
--- NOTE | 2018-05-04 20:19 | XR ---
Left leg HISTORY: Erythema, warmth to touch 2 views of the left leg submitted on 4 images and correlated to prior exam 03/24/2013 left ankle Soft tissue swelling is present. Bone mineralization, joint spaces and alignment are maintained. No f racture or dislocation. IMPRESSION: Correlate for cellulitis, follow-up as indicated.
[2018-05-04 20:30] LABS: Basophils % (A) 0 %; Eosinophils # (A) 0.2 k/uL (0-0.7); Eosinophils % (A) 2 %; HCT 36.9 % (39.0-53.0); HGB 12.2 gm/dL (13.0-17.5); Lymphocytes # (A) 0.7 k/uL (1.0-4.8); Lymphocytes % (A) 8 %; MCH 30.1 pg (25.0-35.0); MCHC 33.1 g/dL (31.0-37.0); MCV 90.7 fL (80.0-100.0); Mean Platelet Volume 6.8; Monocytes # (A) 0.5 k/uL (0-1.0); Monocytes % (A) 6 %; Neutrophils # (A) 7.2 k/uL (1.3-7.7); Neutrophils % (A) 82 %; Platelet Count 219 k/uL (150-450); RBC 4.07 m/uL (4.30-5.90); RDW 13.6 % (11.5-15.5); WBC 8.7 k/uL (3.8-10.6)
--- NOTE | 2018-05-04 20:37 | US ---
EXAMINATION TYPE: US venous doppler duplex LE LT DATE OF EXAM: 05/04/2018 7:14 PM COMPARISON: Previous exam dated 10/03/2017 CLINICAL HISTORY: Pain. SIDE PERFORMED: Left TECHNIQUE: The lower extremity deep venous system is examined utilizing real time linear array sonog hannah with graded compression, doppler sonography and color-flow sonography. VESSELS IMAGED: External Iliac Vein (EIV) Common Femoral Vein Deep Femoral Vein Greater Saphenous Vein * Femoral Vein Popliteal Vein Small Saphenous Vein * Proximal Calf Veins (* superficial vessels) Grayscale, color doppler, spectral doppler imaging performed of the deep veins of the lower extremiti es. Left Leg: Positive for DVT Low-level internal echoes present within the common femoral vein and central portion of the femoral v ein with incomplete compression IMPRESSION: Nonocclusive thrombus present within the central portion of the femoral vein, common femo ral vein compatible with deep venous thrombosis of indeterminate age
[2018-05-04 20:40] LABS: INR 1.1 (<1.2); Partial Thromboplastin Time 23.3 sec (22.0-30.0); Prothrombin Time 10.6 sec (9.0-12.0)
[2018-05-04 20:45] LABS: Albumin 3.3 g/dL (3.5-5.0); Calcium 9.6 mg/dL (8.4-10.2); Potassium 4.9 mmol/L (3.5-5.1); Total Bilirubin 0.3 mg/dL (0.2-1.3); Total Protein 5.8 g/dL (6.3-8.2)
[2018-05-04 20:56] LABS: Creatine Kinase 121 U/L (55-170)
[2018-05-04] MEDS ORDERED: cefTRIAXone IN SWFI 1,000 MG/10 ML SYRINGE IVP STA (20:59)
[2018-05-04] MEDS ORDERED: HEPARIN SODIUM,PORCINE 5,000 UNIT/ML 1 ML VIAL IV PRN (20:59)
[2018-05-04] MEDS ORDERED: HEPARIN SODIUM,PORCINE 10,000 UNIT/ML 1 ML VIAL IV ONE (20:59)
[2018-05-04] MEDS ORDERED: HEPARIN SOD,PORK IN 0.45% NACL 25,000 UNIT in 0.45% NACL 1 500ML.BAG IV SCH (21:00)
[2018-05-04] MEDS ORDERED: PROMETHAZ-COD 6.25-10 MG/5 ML 5 ML CUP PO PRN (21:00)
[2018-05-04] MEDS ORDERED: IPRATROPIUM-ALBUTEROL 3 ML NEB INHALATION PRN (21:00)
[2018-05-04] MEDS ORDERED: traMADol 50 MG TAB PO PRN (21:02)
[2018-05-04 21:09] LABS: Troponin I <0.012 ng/mL (0.000-0.034)
[2018-05-04 21:19] LABS: Creatine Kinase MB 3.9 ng/mL (0.0-2.4)
--- NOTE | 2018-05-04 22:50 | CT ---
EXAMINATION TYPE: CT chest angio for PE DATE OF EXAM: 05/04/2018 COMPARISON: NONE HISTORY: Left lower leg redness and pain. CT DLP: 332.1 mGycm Automated exposure control for dose reduction was used. CONTRAST: CT Chest for pulmonary embolism performed with with IV Contrast, patient injected with 72ml mL of Iso chandni 370. FINDINGS: There is a mild reticular nodular infiltrate in the lateral right upper lobe. There is a 1 cm noncalc ified nodule in the anterior right upper lobe. There is 4 x 2.5 cm irregular infiltrate in the anteri or segment left upper lobe adjacent to the mediastinum. There is patchy nodular infiltrate in the mid and lower lung wright. There is no pleural effusion. Heart size is normal. There is no pericardial e ffusion. There is no evidence of thoracic aortic aneurysm or dissection. Thoracic aorta is atheromatous. There are multiple enlarged mediastinal lymph nodes that measure up to 2.5 x 1.5 cm. There is 2 x 1 cm sub carinal lymph node. I see no filling defects in the pulmonary arteries. IMPRESSION: No evidence of pulmonary embolism. Atherosclerotic vascular disease. Left upper lobe mass adjacent to the mediastinum is suspicious for primary tumor. Bilateral patchy nodular pulmonary infiltrates. Rig ht upper lobe nodule. Left upper lobe mass is increased and doubled in size compared to 01/17/2017 CT scan.
[2018-05-05 00:31] LABS: Glucose,Whole Blood 324 mg/dL (75-99)
[2018-05-05] MEDS: IPRATROPIUM-ALBUTEROL 3 ML NEB INHALATION SCH ×5 (00:44→19:32)
[2018-05-05] MEDS ORDERED: INSULIN DETEMIR 100 UNIT/ML 10 ML VIAL SQ ONE (01:00)
[2018-05-05] MEDS: methylPREDNISolone SOD SUCCI 125 MG/2 ML VIAL IV SCH ×2 (01:22→05:45)
[2018-05-05 03:18] LABS: Basophils % (A) 0 %; Eosinophils % (A) 0 %; HCT 36.3 % (39.0-53.0); HGB 11.8 gm/dL (13.0-17.5); Lymphocytes # (A) 0.2 k/uL (1.0-4.8); Lymphocytes % (A) 3 %; MCH 29.9 pg (25.0-35.0); MCHC 32.4 g/dL (31.0-37.0); MCV 92.3 fL (80.0-100.0); Mean Platelet Volume 7.1; Monocytes # (A) 0.1 k/uL (0-1.0); Monocytes % (A) 1 %; Neutrophils # (A) 6.3 k/uL (1.3-7.7); Neutrophils % (A) 94 %; Platelet Count 215 k/uL (150-450); RBC 3.93 m/uL (4.30-5.90); RDW 13.4 % (11.5-15.5); WBC 6.7 k/uL (3.8-10.6)
[2018-05-05 07:08] LABS: Glucose,Whole Blood 382 mg/dL (75-99)
[2018-05-05] MEDS: INSULIN ASPART 100 UNIT/ML 1 ML 10 ML VIAL SQ SCH ×4 (07:41→21:17)
[2018-05-05] MEDS: PARoxetine 20 MG TAB PO SCH (07:45)
[2018-05-05] MEDS: CLOPIDOGREL 75 MG TAB PO SCH (07:45)
[2018-05-05] MEDS: ISOSORBIDE MONONITRATE ER 30 MG TAB.ER.24H PO SCH (07:45)
[2018-05-05] MEDS ORDERED: FUROSEMIDE 20 MG TAB PO SCH (09:00)
[2018-05-05] MEDS ORDERED: POTASSIUM CHLORIDE ER 20 MEQ TAB.ER PO SCH (09:00)
[2018-05-05] MEDS ORDERED: LISINOPRIL 10 MG TAB PO SCH (09:00)
[2018-05-05] MEDS ORDERED: amLODIPine 5 MG TAB PO SCH (09:00)
[2018-05-05 11:40] LABS: Glucose,Whole Blood 452 mg/dL (75-99)
[2018-05-05 11:40] LABS: Glucose,Whole Blood 462 mg/dL (75-99)
[2018-05-05 11:44] LABS: Calcium 9.1 mg/dL (8.4-10.2); Potassium 5.8 mmol/L (3.5-5.1)
[2018-05-05] MEDS: RIVAROXABAN 15 MG TAB PO SCH ×2 (11:55→17:28)
[2018-05-05] MEDS ORDERED: INSULIN ASPART 100 UNIT/ML 1 ML 10 ML VIAL SQ ONE (13:04)
[2018-05-05 13:17] LABS: Glucose,Whole Blood 462 mg/dL (75-99)
--- NOTE | 2018-05-05 14:23 | P.HPIM ---
History of Present Illness 72-year-old gentleman came in with the left leg pain. Found to have DVT in the left lower extremity patient was started on heparin which was switched to oral anticoagulation. Patient is cleared for discharge. Patient does not have any significant COPD exacerbation patient is being treated as an outpatient for COPD patient was given IV steroids because of which his blood sugars went up because of which patient is concerned and wanted want to stay 1 more day which is reasonable and patient the will be discharged tomorrow. I'm expecting his blood sugars to be elevated today because of his IV steroids to subsequently discontinued and patient was started on oral steroids. Patient is not wearing oxygen still has minimal wheeze patient is being treated appropriately as an outpatient for COPD. Patient has small mass which is suspicious for malignancy for which patient underwent PET scans in the past which was essentially within normal limits. Mother is the recent CAT scan is read as possibility increased size of mass. But this is being followed by Dr. Riley pulmonology as an outpatient. Patient has an unprovoked DVT. Patient takes Plavix for could not this is not an aspirin at this time. Patient baseline creatinine is around 1. And creatinine is bit was up to 1.5 and repeat level also showed elevated serum potassium levels his potassium supplementation is being discontinued lisinopril will be held as well Lasix will be discontinued. Patient does not have any history of congestive heart failure. Patient denied any significant cough at this time. Review of Systems REVIEW OF SYSTEMS: CONSTITUTIONAL: No fever, no malaise, no fatigue. HEENT: No recent visual problems or hearing problems. Denied any sore throat. CARDIOVASCULAR: No chest pain, orthopnea, PND, no palpitations, no syncope. PULMONARY: No shortness of breath, no cough, no hemoptysis. GASTROINTESTINAL: No diarrhea, no nausea, no vomiting, no abdominal pain. Normoactive bowel sounds. NEUROLOGICAL: No headaches, no weakness, no numbness. HEMATOLOGICAL: Denies any bleeding or petechiae. GENITOURINARY: Denies any burning micturition, frequency, or urgency. MUSCULOSKELETAL/RHEUMATOLOGICAL: Denies any joint pain, swelling, or any muscle pain. ENDOCRINE: Denies any polyuria or polydipsia. The rest of the 14-point review of systems is negative. Past Medical History Past Medical History: Coronary Artery Disease (CAD), COPD, CVA/TIA, Diabetes Mellitus, Hyperlipidemia, Hypertension, Myocardial Infarction ([place]), Pneumonia, Prostate Disorder, Syncope Additional Past Medical History / Comment(s): COPD, diabetes mellitus type 2, BPH, left upper lobe lesion measuring 1.9 x 1.6 cm in size and not showing any metabolic activity, coronary artery disease with previous [place], diabetes mellitus , hypertension, hyperlipidemia, chronic back pain, BPH Last Myocardial Infarction Date:: 05/24/12 History of Any Multi-Drug Resistant Organisms: None Reported Past Surgical History: Back Surgery, Cholecystectomy, Heart Catheterization, Hernia Repair Additional Past Surgical History / Comment(s): 2011 cardiac cath-treated medically, low back surgery, ROBERTO CATARACT SX, abdominal hernia repair, bilateral cataract removal, bronchoscopy. Past Anesthesia/Blood Transfusion Reactions: No Reported Reaction Past Psychological History: Anxiety, Depression Additional Psychological History / Comment(s): PAtient lives with son. 05/05/18: Pt. denies anxiety at this time Smoking Status: Former smoker Past Alcohol Use History: Rare Additional Past Alcohol Use History / Comment(s): Pt started smoking in 1960 and quit in 1995. He was a 2ppd smoker. Past Drug Use History: None Reported - Past Family History Mother Family Medical History: No Reported History Father Family Medical History: Diabetes Mellitus Additional Family Medical History / Comment(s): Father of diabetes at the age of 83 yrs. Medications and Allergies Home Medications Medication Instructions Recorded Confirmed Type Insulin Detemir [Levemir] 72 unit SQ HS 07/09/14 05/05/18 History Isosorbide Mononitrate ER [Imdur] 30 mg PO DAILY 07/09/14 05/05/18 History Lisinopril [Zestril] 10 mg PO DAILY 07/09/14 05/05/18 History amLODIPine [Norvasc] 5 mg PO DAILY 07/09/14 05/05/18 History PARoxetine [Paxil] 20 mg PO DAILY 11/15/14 05/05/18 History Clopidogrel [Plavix] 75 mg PO DAILY 05/04/18 05/05/18 History Furosemide [Lasix] 20 mg PO DAILY 05/04/18 05/05/18 History Levofloxacin [Levaquin] 500 mg PO DAILY 05/04/18 05/05/18 History Potassium Chloride ER [K-Dur 20] 20 meq PO DAILY 05/04/18 05/05/18 History traMADol HCL [Ultram] 50 mg PO TID PRN 05/04/18 05/05/18 History Ipratropium-Albuterol Nebulize 3 ml INHALATION RT-QID 05/05/18 05/05/18 History [Duoneb 0.5 mg-3 mg/3 ml Soln] Allergies Allergy/AdvReac Type Severity Reaction Status Date / Time No Known Allergies Allergy Unverified 05/05/18 13:49 Physical Exam Vitals: Vital Signs Temp Pulse Pulse Resp BP BP Pulse Ox 05/05/18 11:27 98 05/05/18 11:11 100 05/05/18 08:00 91 05/05/18 07:31 90 05/05/18 07:17 88 05/05/18 05:00 96.9 F L 91 17 142/83 96 05/05/18 00:54 72 05/05/18 00:44 76 05/04/18 23:51 98.2 F 80 17 166/81 93 L 05/04/18 23:28 98.5 F 88 18 167/78 98 05/04/18 22:34 98.4 F 84 18 163/78 98 05/04/18 21:09 84 05/04/18 21:03 80 05/04/18 20:50 99.2 F 76 18 157/70 97 05/04/18 18:40 98.1 F 99 18 151/71 94 L Intake and Output 05/04/18 05/05/18 05/05/18 22:59 06:59 14:59 Intake Total 1056 Output Total 350 Balance 1056 -350 Intake: Intake, IV Titration 1056 Amount Heparin Sod,Pork in 0.45% 256 NaCl 25,000 unit In 0.45 % NaCl 1 500ml.bag @ 18 UNITS/KG/HR 32.82 mls/hr IV .[id number] NI Rx#: [id number] Sodium Chloride 0.9% 1, 800 000 ml @ 100 mls/hr IV . Q10H STA Rx#:[id number] Output: Urine 350 Other: # Voids 1 Weight 91.172 kg PHYSICAL EXAMINATION: GENERAL: The patient is alert and oriented x3, not in any acute distress. Well developed, well nourished. HEENT: Pupils are round and equally reacting to light. EOMI. No scleral icterus. No conjunctival pallor. Normocephalic, atraumatic. No pharyngeal erythema. No thyromegaly. CARDIOVASCULAR: S1 and S2 present. No murmurs, rubs, or gallops. PULMONARY: Minimally decreased air entry into bilateral lung wright minimal expiratory wheezing was appreciated ABDOMEN: Soft, nontender, nondistended, normoactive bowel sounds. No palpable organomegaly. MUSCULOSKELETAL: No joint swelling or deformity. EXTREMITIES: No cyanosis, clubbing, or pedal edema. NEUROLOGICAL: Gross neurological examination did not reveal any focal deficits. SKIN: Minimal redness in the left leg. Results CBC & Chem 7: 05/05/18 02:48 05/05/18 02:48 Labs: Abnormal Lab Results - Last 24 Hours (Table) 05/04/18 05/04/18 05/04/18 Range/Units 20:15 20:15 20:15 RBC 4.07 L (4.30-5.90) m/uL Hgb 12.2 L (13.0-17.5) gm/dL Hct 36.9 L (39.0-53.0) % Lymphocytes # 0.7 L (1.0-4.8) k/uL APTT (22.0-30.0) sec Sodium 136 L (137-145) mmol/L Potassium (3.5-5.1) mmol/L Carbon Dioxide (22-30) mmol/L BUN 39 H (9-20) mg/dL Creatinine 1.50 H (0.66-1.25) mg/dL Glucose 308 H (74-99) mg/dL POC Glucose (mg/dL) (75-99) mg/dL CK-MB (CK-2) 3.9 H* (0.0-2.4) ng/mL Total Protein 5.8 L (6.3-8.2) g/dL Albumin 3.3 L (3.5-5.0) g/dL 05/05/18 05/05/18 05/05/18 Range/Units 00:26 02:48 02:48 RBC 3.93 L (4.30-5.90) m/uL Hgb 11.8 L (13.0-17.5) gm/dL Hct 36.3 L (39.0-53.0) % Lymphocytes # 0.2 L (1.0-4.8) k/uL APTT 54.7 H (22.0-30.0) sec Sodium (137-145) mmol/L Potassium (3.5-5.1) mmol/L Carbon Dioxide (22-30) mmol/L BUN (9-20) mg/dL Creatinine (0.66-1.25) mg/dL Glucose (74-99) mg/dL POC Glucose (mg/dL) 324 H (75-99) mg/dL CK-MB (CK-2) (0.0-2.4) ng/mL Total Protein (6.3-8.2) g/dL Albumin (3.5-5.0) g/dL 05/05/18 05/05/18 05/05/18 Range/Units 02:48 07:07 11:37 RBC (4.30-5.90) m/uL Hgb (13.0-17.5) gm/dL Hct (39.0-53.0) % Lymphocytes # (1.0-4.8) k/uL APTT (22.0-30.0) sec Sodium 136 L (137-145) mmol/L Potassium 5.8 H (3.5-5.1) mmol/L Carbon Dioxide 20 L (22-30) mmol/L BUN 37 H (9-20) mg/dL Creatinine 1.43 H (0.66-1.25) mg/dL Glucose 406 H (74-99) mg/dL POC Glucose (mg/dL) 382 H 462 H (75-99) mg/dL CK-MB (CK-2) (0.0-2.4) ng/mL Total Protein (6.3-8.2) g/dL Albumin (3.5-5.0) g/dL 05/05/18 05/05/18 Range/Units 11:39 13:13 RBC (4.30-5.90) m/uL Hgb (13.0-17.5) gm/dL Hct (39.0-53.0) % Lymphocytes # (1.0-4.8) k/uL APTT (22.0-30.0) sec Sodium (137-145) mmol/L Potassium (3.5-5.1) mmol/L Carbon Dioxide (22-30) mmol/L BUN (9-20) mg/dL Creatinine (0.66-1.25) mg/dL Glucose (74-99) mg/dL POC Glucose (mg/dL) 452 H 462 H (75-99) mg/dL CK-MB (CK-2) (0.0-2.4) ng/mL Total Protein (6.3-8.2) g/dL Albumin (3.5-5.0) g/dL Thrombosis Risk Factor Assmnt - Choose All That Apply Any of the Below Risk Factors Present?: Yes Each Factor Represents 1 point: Abnormal pulmonary function (COPD) Each Risk Factor Represents 2 Points: Age 61-74 years, Patient confined to bed Thrombosis Risk Factor Assessment Total Risk Factor Score: 5 Thrombosis Risk Factor Assessment Level: High Risk Assessment and Plan Plan: -Left lower limb DVT Diagnosis non-precipitated patient was started on oral anticoagulation patient will be discharged on oral anticoagulations tomorrow. -COPD without any significant exacerbation patient patient will be continued on oral prednisone possibility of discharge tomorrow. -Acute renal failure: Secondary to diuretic therapy lisinopril both of which will be held -hyperkalemia secondary to lisinopril and potassium supplementation these will be held -Uncontrolled blood sugars and type 2 diabetes mellitus secondary to IV steroids which will be discontinued. -Depression -Lung lesions workup as an outpatient -Coronary artery disease continue with Plavix -Hypertension since I'm holding off on lisinopril and decrease the dose of amlodipine patient will benefit from lisinopril which need to be reinitiated as an outpatient once his potassium improves -Benign prostatic hypertrophic
--- NOTE | 2018-05-05 15:25 | P.CNPUL ---
History of Present Illness Consult date: 05/05/18 Reason for consult: COPD, DVT Chief complaint: Left leg swelling and pain History of present illness: This is a 72-year-old white male admitted yesterday with a few days' history of swelling and pain in the left lower extremity. Patient underwent venous Doppler which came back positive for deep vein thrombosis, patient was started on heparin, and I normally see this patient for his moderate severe COPD, and abnormal CT of the chest showing a left upper lobe mass which apparently has been increasing in size based on the most recent CT of the chest on this admission. Patient is known to have history of COPD, diabetes, coronary artery disease, previous TIA, hyperlipidemia, and again history of abnormal left upper lobe lesion. Previous PET scan on this lesion was negative, however is quite concerning that the most recent CT of the chest on this admission showed almost doubling in the size of the lesion. Patient has occasional cough no wheezing, no fever no chills, no hemoptysis. Denies any headaches no blurred vision no dizziness no nausea no vomiting no abdominal pain no melena no hematemesis no dysuria and no frequency no urgency. Review of Systems 14 point review of systems were obtained, please refer to pertinent positives in HPI, otherwise remaining systems are negative. Past Medical History Past Medical History: Coronary Artery Disease (CAD), COPD, CVA/TIA, Diabetes Mellitus, Hyperlipidemia, Hypertension, Myocardial Infarction ([place]), Pneumonia, Prostate Disorder, Syncope Additional Past Medical History / Comment(s): COPD, diabetes mellitus type 2, BPH, left upper lobe lesion measuring 1.9 x 1.6 cm in size and not showing any metabolic activity, coronary artery disease with previous [place], diabetes mellitus , hypertension, hyperlipidemia, chronic back pain, BPH Last Myocardial Infarction Date:: 05/24/12 History of Any Multi-Drug Resistant Organisms: None Reported Past Surgical History: Back Surgery, Cholecystectomy, Heart Catheterization, Hernia Repair Additional Past Surgical History / Comment(s): 2012 cardiac cath-treated medically, low back surgery, ROBERTO CATARACT SX, abdominal hernia repair, bilateral cataract removal, bronchoscopy. Past Anesthesia/Blood Transfusion Reactions: No Reported Reaction Past Psychological History: Anxiety, Depression Additional Psychological History / Comment(s): PAtient lives with son. 05/05/18: Pt. denies anxiety at this time Smoking Status: Former smoker Past Alcohol Use History: Rare Additional Past Alcohol Use History / Comment(s): Pt started smoking in 1960 and quit in 1995. He was a 2ppd smoker. Past Drug Use History: None Reported - Past Family History Mother Family Medical History: No Reported History Father Family Medical History: Diabetes Mellitus Additional Family Medical History / Comment(s): Father of diabetes at the age of 83 yrs. Medications and Allergies Home Medications Medication Instructions Recorded Confirmed Type Insulin Detemir [Levemir] 72 unit SQ HS 07/09/14 05/05/18 History Isosorbide Mononitrate ER [Imdur] 30 mg PO DAILY 07/09/14 05/05/18 History Lisinopril [Zestril] 10 mg PO DAILY 07/09/14 05/05/18 History amLODIPine [Norvasc] 5 mg PO DAILY 07/09/14 05/05/18 History PARoxetine [Paxil] 20 mg PO DAILY 11/15/14 05/05/18 History Clopidogrel [Plavix] 75 mg PO DAILY 05/04/18 05/05/18 History Furosemide [Lasix] 20 mg PO DAILY 05/04/18 05/05/18 History Levofloxacin [Levaquin] 500 mg PO DAILY 05/04/18 05/05/18 History Potassium Chloride ER [K-Dur 20] 20 meq PO DAILY 05/04/18 05/05/18 History traMADol HCL [Ultram] 50 mg PO TID PRN 05/04/18 05/05/18 History Ipratropium-Albuterol Nebulize 3 ml INHALATION RT-QID 05/05/18 05/05/18 History [Duoneb 0.5 mg-3 mg/3 ml Soln] Allergies Allergy/AdvReac Type Severity Reaction Status Date / Time No Known Allergies Allergy Unverified 05/05/18 13:49 Physical Exam Vitals: Vital Signs Temp Pulse Pulse Resp BP BP Pulse Ox 05/05/18 11:27 98 05/05/18 11:11 100 05/05/18 08:00 91 05/05/18 07:31 90 05/05/18 07:17 88 05/05/18 05:00 96.9 F L 91 17 142/83 96 05/05/18 00:54 72 05/05/18 00:44 76 05/04/18 23:51 98.2 F 80 17 166/81 93 L 05/04/18 23:28 98.5 F 88 18 167/78 98 05/04/18 22:34 98.4 F 84 18 163/78 98 05/04/18 21:09 84 05/04/18 21:03 80 05/04/18 20:50 99.2 F 76 18 157/70 97 05/04/18 18:40 98.1 F 99 18 151/71 94 L Intake and Output 05/05/18 05/05/18 05/05/18 06:59 14:59 22:59 Intake Total 1056 1062.56 Output Total 350 Balance 1056 712.56 Intake: Intake, IV Titration 1056 1062.56 Amount Heparin Sod,Pork in 0.45% 256 262.56 NaCl 25,000 unit In 0.45 % NaCl 1 500ml.bag @ 18 UNITS/KG/HR 32.82 mls/hr IV .[id number] NI Rx#: [id number] Sodium Chloride 0.9% 1, 800 000 ml @ 100 mls/hr IV . Q10H NI Rx#:[id number] Sodium Chloride 0.9% 1, 800 000 ml @ 100 mls/hr IV . Q10H STA Rx#:[id number] Output: Urine 350 Other: # Voids 1 Physical Exam: Revealed a 72-year-old white male in no distress. Head: Atraumatic normocephalic. HEENT:[Neck is supple.] [No neck masses.] [No thyromegaly.] [No JVD.] PERRLA, EOMI. No icterus. Chest: [Diminished breath sounds at the bases, minimal wheezing on forced expiratory maneuver only..] Cardiac Exam: [Normal S1 and S2, no S3 gallop, no murmur.] Abdomen: [Soft, nontender, no megaly, no rebound, no guarding, normal bowel sounds.] Extremities: [2+ edema of the left lower extremity, some tenderness on palpation just below the calf region. Good pulses bilaterally. Minimal redness is noted. Neurological Exam: [No focal neurologic deficit.] Lymphatics: No lymphadenopathy. Psychiatric: Normal mood affect and mental status examination. Results - Laboratory Findings CBC and BMP: 05/05/18 02:48 05/05/18 02:48 PT/INR, D-dimer PT 10.6 sec (9.0-12.0) 05/04/18 20:15 INR 1.1 (<1.2) 05/04/18 20:15 Abnormal lab findings: Abnormal Labs 05/04/18 05/04/18 05/04/18 20:15 20:15 20:15 RBC 4.07 L Hgb 12.2 L Hct 36.9 L Lymphocytes # 0.7 L APTT Sodium 136 L Potassium Carbon Dioxide BUN 39 H Creatinine 1.50 H Glucose 308 H POC Glucose (mg/dL) CK-MB (CK-2) 3.9 H* Total Protein 5.8 L Albumin 3.3 L 05/05/18 05/05/18 05/05/18 00:26 02:48 02:48 RBC 3.93 L Hgb 11.8 L Hct 36.3 L Lymphocytes # 0.2 L APTT 54.7 H Sodium Potassium Carbon Dioxide BUN Creatinine Glucose POC Glucose (mg/dL) 324 H CK-MB (CK-2) Total Protein Albumin 05/05/18 05/05/18 05/05/18 02:48 07:07 11:37 RBC Hgb Hct Lymphocytes # APTT Sodium 136 L Potassium 5.8 H Carbon Dioxide 20 L BUN 37 H Creatinine 1.43 H Glucose 406 H POC Glucose (mg/dL) 382 H 462 H CK-MB (CK-2) Total Protein Albumin 05/05/18 05/05/18 11:39 13:13 RBC Hgb Hct Lymphocytes # APTT Sodium Potassium Carbon Dioxide BUN Creatinine Glucose POC Glucose (mg/dL) 452 H 462 H CK-MB (CK-2) Total Protein Albumin - Diagnostic Findings CT scan - chest: image reviewed (As noted in HPI, agree with the reading as per radiology. The left upper lobe lesion is concerning, and will have to be addressed on an outpatient basis.) Assessment and Plan Assessment: Impression: 1 acute left lower extremity DVT, agree with heparin switched to Xarelto and discharged home on Xarelto. 2 moderate severe COPD presently inactive 3 left upper lobe mass, needs workup on outpatient basis 4 benign essential hypertension 5 coronary artery disease 6 type 2 diabetes, 7 hyperkalemia and acute kidney injury, could be related to medications including lisinopril and diuretics. Hence these will be placed on hold. Recommendation: Agree with discharge planning, see me in the office in one week. Time with Patient: Greater than 30
[2018-05-05] MEDS: SODIUM CHLORIDE 0.9% 1,000 ML IV SCH (16:03)
[2018-05-05 17:12] LABS: Glucose,Whole Blood 376 mg/dL (75-99)
[2018-05-05 20:07] LABS: Glucose,Whole Blood 379 mg/dL (75-99)
[2018-05-05] MEDS ORDERED: INSULIN DETEMIR 100 UNIT/ML 10 ML VIAL SQ SCH ×2 (21:00)
[2018-05-05 23:12] VITALS: RESP 16
[2018-05-06] MEDS: SODIUM CHLORIDE 0.9% 1,000 ML IV SCH (05:52)
[2018-05-06 06:12] VITALS: BP 138/65; TEMP 97.6
[2018-05-06 06:59] LABS: Basophils % (A) 0 %; Eosinophils % (A) 0 %; HCT 35.2 % (39.0-53.0); HGB 11.6 gm/dL (13.0-17.5); Lymphocytes # (A) 0.8 k/uL (1.0-4.8); Lymphocytes % (A) 6 %; MCH 29.8 pg (25.0-35.0); MCV 90.2 fL (80.0-100.0); Mean Platelet Volume 7.5; Monocytes # (A) 0.6 k/uL (0-1.0); Monocytes % (A) 4 %; Neutrophils # (A) 12.1 k/uL (1.3-7.7); Neutrophils % (A) 88 %; Platelet Count 251 k/uL (150-450); RDW 13.4 % (11.5-15.5); WBC 13.7 k/uL (3.8-10.6)
[2018-05-06 07:08] LABS: Calcium 9.3 mg/dL (8.4-10.2); INR 1.3 (<1.2); Partial Thromboplastin Time 25.8 sec (22.0-30.0); Potassium 4.6 mmol/L (3.5-5.1)
[2018-05-06] MEDS: IPRATROPIUM-ALBUTEROL 3 ML NEB INHALATION SCH ×2 (07:15→10:53)
[2018-05-06 07:28] LABS: Glucose,Whole Blood 98 mg/dL (75-99)
[2018-05-06] MEDS: INSULIN ASPART 100 UNIT/ML 1 ML 10 ML VIAL SQ SCH ×2 (08:38→12:41)
[2018-05-06] MEDS: RIVAROXABAN 15 MG TAB PO SCH (08:48)
[2018-05-06] MEDS: ISOSORBIDE MONONITRATE ER 30 MG TAB.ER.24H PO SCH (08:48)
[2018-05-06] MEDS: PARoxetine 20 MG TAB PO SCH (08:48)
[2018-05-06] MEDS: CLOPIDOGREL 75 MG TAB PO SCH (08:49)
[2018-05-06] MEDS ORDERED: amLODIPine 10 MG TAB PO SCH (09:00)
[2018-05-06] MEDS ORDERED: predniSONE 20 MG TAB PO SCH (09:00)
[2018-05-06 10:04] LABS: Hemoglobin A1C 10.2 % (4.0-6.0)
[2018-05-06 10:18] VITALS: BMI 26.5
--- NOTE | 2018-05-06 11:04 | P.DS ---
Providers Date of admission: 05/05/18 15:39 Attending physician: Omega Bruno Consults: 05/05/18 10:37 Consult Physician Routine Consulting Provider: Renzo Boyer Reason/Comments: COPD exacerbation, lung noduel Do you want consulting provider notified?: Yes Primary care physician: Renzo Boyer Hospital Course: 72-year-old gentleman is admitted for a new onset left lower extremity DVT, patient is being started on Xeralto, patient is also being treated for COPD exacerbation patient is on oral steroids and patient still has some be is not wearing oxygen at this time area patient will be discharged today to follow Dr. Boyer as an outpatient. And blood sugars were elevated secondary to IV steroids yesterday which are better now. PHYSICAL EXAMINATION: GENERAL: The patient is alert and oriented x3, not in any acute distress. Well developed, well nourished. HEENT: Pupils are round and equally reacting to light. EOMI. No scleral icterus. No conjunctival pallor. Normocephalic, atraumatic. No pharyngeal erythema. No thyromegaly. CARDIOVASCULAR: S1 and S2 present. No murmurs, rubs, or gallops. PULMONARY: Minimally decreased air entry into bilateral lung wright minimal expiratory wheezing was appreciated ABDOMEN: Soft, nontender, nondistended, normoactive bowel sounds. No palpable organomegaly. MUSCULOSKELETAL: No joint swelling or deformity. EXTREMITIES: No cyanosis, clubbing, or pedal edema. NEUROLOGICAL: Gross neurological examination did not reveal any focal deficits. SKIN: Minimal redness in the left leg. Assessment and Plan Plan: -Acute Left lower limb DVT, un precipitated DVT -COPD without any significant exacerbation patient patient will be continued on oral prednisone possibility of discharge tomorrow. -Acute renal failure: Improved with IV fluids will discontinue Lasix as the and gave him IV fluids and discontinued Lasix upon discharge and I'll repeat a chest x-ray today make sure patient doesn't have any pulmonary but clinically he does not have any pulmonary edema -hyperkalemia secondary to lisinopril and potassium supplementation these will be held, hypokalemia improved the patient's lisinopril dose will be decreased and the patient's potassium supplementation will be discontinued and will be discharged today -Uncontrolled blood sugars and type 2 diabetes mellitus secondary to IV steroids , better today after discontinue additional IV steroids. -Depression -Lung lesions workup as an outpatient -Coronary artery disease continue with Plavix -Hypertension -Benign prostatic hypertrophy Patient Condition at Discharge: Stable Plan - Discharge Summary Discharge Rx Participant: Yes New Discharge Prescriptions: Continue Insulin Detemir [Levemir] 72 unit SQ HS amLODIPine [Norvasc] 5 mg PO DAILY Isosorbide Mononitrate ER [Imdur] 30 mg PO DAILY PARoxetine [Paxil] 20 mg PO DAILY Levofloxacin [Levaquin] 500 mg PO DAILY traMADol HCL [Ultram] 50 mg PO TID PRN PRN Reason: Pain Clopidogrel [Plavix] 75 mg PO DAILY Ipratropium-Albuterol Nebulize [Duoneb 0.5 mg-3 mg/3 ml Soln] 3 ml INHALATION RT-QID Changed Lisinopril [Zestril] 5 mg PO DAILY #0 Discontinued Furosemide [Lasix] 20 mg PO DAILY Potassium Chloride ER [K-Dur 20] 20 meq PO DAILY Discharge Medication List Insulin Detemir [Levemir] 72 unit SQ HS 07/09/14 [History] Isosorbide Mononitrate ER [Imdur] 30 mg PO DAILY 07/09/14 [History] amLODIPine [Norvasc] 5 mg PO DAILY 07/09/14 [History] PARoxetine [Paxil] 20 mg PO DAILY 11/15/14 [History] Clopidogrel [Plavix] 75 mg PO DAILY 05/04/18 [History] Levofloxacin [Levaquin] 500 mg PO DAILY 05/04/18 [History] traMADol HCL [Ultram] 50 mg PO TID PRN 05/04/18 [History] Ipratropium-Albuterol Nebulize [Duoneb 0.5 mg-3 mg/3 ml Soln] 3 ml INHALATION RT -QID 05/05/18 [History] Lisinopril [Zestril] 5 mg PO DAILY #0 05/06/18 [Rx] Follow up Appointment(s)/Referral(s): Renzo Boyer MD [Primary Care Provider] - 05/15/18 9:15 am Ambulatory/Diagnostic Orders: Basic Metabolic Panel [LAB.AMB] Time Frame: 3 Days, Location: None Selected Patient Instructions/Handouts: Deep Venous Thrombosis (DC), COPD (Chronic Obstructive Pulmonary Disease) (DC) Discharge Disposition: HOME SELF-CARE
[2018-05-06 11:07] VITALS: PULSE 70
[2018-05-06 11:49] LABS: Glucose,Whole Blood 174 mg/dL (75-99)
--- NOTE | 2018-05-06 11:49 | XR ---
EXAMINATION TYPE: XR chest 1V DATE OF EXAM: 05/06/2018 COMPARISON: 05/04/2018 HISTORY: 72-year-old male cough, rule out CHF TECHNIQUE: Single frontal view of the chest is obtained. FINDINGS: Heart normal size. Atherosclerotic arch calcifications. Mild diffuse interstitial prominence of the c hronic appearance. Mild hyperinflation. 7 mm nodularity at the right upper to mid lung. Some strandy left basilar atelectasis. Left perihilar prominence also noted. IMPRESSION: 1. 7 mm nodularity right upper to mid lung could reflect some nodular infiltrate or underlying pulmon lavon nodule. 2. Left perihilar prominence could be underlying infiltrate or mass. 3. Tree-in-bud opacities seen on the patient's 05/04/2018 CT are not well demonstrated radiographicall y. Correlate for possible bronchiolitis including atypical mycobacterial or fungal infections. 4. It may be prudent to repeat a three-week follow-up CT to ensure some of the masslike opacity at t he left hilum is improving. If this opacity and the nodule on the right are stable at that time, furt her long-term stability should be ensured.
--- NOTE | 2018-05-06 14:28 | P.PN ---
Subjective Progress Note Date: 05/06/18 Principal diagnosis: Acute left lower extremity DVT This is a 72-year-old white male admitted yesterday with a few days' history of swelling and pain in the left lower extremity. Patient underwent venous Doppler which came back positive for deep vein thrombosis, patient was started on heparin, and I normally see this patient for his moderate severe COPD, and abnormal CT of the chest showing a left upper lobe mass which apparently has been increasing in size based on the most recent CT of the chest on this admission. Patient is known to have history of COPD, diabetes, coronary artery disease, previous TIA, hyperlipidemia, and again history of abnormal left upper lobe lesion. Previous PET scan on this lesion was negative, however is quite concerning that the most recent CT of the chest on this admission showed almost doubling in the size of the lesion. Patient has occasional cough no wheezing, no fever no chills, no hemoptysis. Denies any headaches no blurred vision no dizziness no nausea no vomiting no abdominal pain no melena no hematemesis no dysuria and no frequency no urgency. On 05/06/2018 patient seen in follow-up on medical surgical floor. Patient is awake, alert, denies any acute distress. Has been started on Xarelto the left lower extremity DVT. CT angios did not show any evidence of pulmonary embolism and left upper lobe mass which has been increasing compared the most recent CT. Room air pulse ox is 95%, patient is hemodynamically stable, denies any specific complaints, denies any chest pain or shortness of breath. Patient has been discharge home today and she will follow-up with Dr. Riley in the office Objective - Vital Signs Vital signs: Vital Signs Temp 97.6 F 05/06/18 06:11 Pulse 70 05/06/18 11:05 Resp 16 05/06/18 11:05 BP 138/65 05/06/18 06:11 Pulse Ox 91 L 05/06/18 07:15 Intake & Output 05/05/18 05/06/18 05/06/18 18:59 06:59 18:59 Intake Total 1062.56 1180 Output Total 350 Balance 712.56 1180 Weight 91.172 kg Intake: Intake, IV Titration 1062.56 Amount Heparin Sod,Pork in 0.45% 262.56 NaCl 25,000 unit In 0.45 % NaCl 1 500ml.bag @ 18 UNITS/KG/HR 32.82 mls/hr IV .[id number] NI Rx#: [id number] Sodium Chloride 0.9% 1, 800 000 ml @ 100 mls/hr IV . Q10H NI Rx#:[id number] Oral 1180 Output: Urine 350 Other: # Voids 2 - Exam Physical Exam: Revealed a 72-year-old white male in no distress. Head: Atraumatic normocephalic. HEENT:[Neck is supple.] [No neck masses.] [No thyromegaly.] [No JVD.] PERRLA, EOMI. No icterus. Chest: [Diminished breath sounds at the bases, minimal wheezing on forced expiratory maneuver only..] Cardiac Exam: [Normal S1 and S2, no S3 gallop, no murmur.] Abdomen: [Soft, nontender, no megaly, no rebound, no guarding, normal bowel sounds.] Extremities: [2+ edema of the left lower extremity, some tenderness on palpation just below the calf region. Good pulses bilaterally. Minimal redness is noted. Neurological Exam: [No focal neurologic deficit.] Lymphatics: No lymphadenopathy. Psychiatric: Normal mood affect and mental status examination. - Labs CBC & Chem 7: 05/06/18 06:36 05/06/18 06:36 Labs: Abnormal Lab Results - Last 24 Hours (Table) 05/04/18 05/05/18 05/05/18 Range/Units 20:15 17:11 19:59 WBC (3.8-10.6) k/uL RBC (4.30-5.90) m/uL Hgb (13.0-17.5) gm/dL Hct (39.0-53.0) % Neutrophils # (1.3-7.7) k/uL Lymphocytes # (1.0-4.8) k/uL INR (<1.2) Chloride (98-107) mmol/L BUN (9-20) mg/dL Creatinine (0.66-1.25) mg/dL Glucose (74-99) mg/dL POC Glucose (mg/dL) 376 H 379 H (75-99) mg/dL Hemoglobin A1c 10.2 H (4.0-6.0) % 05/06/18 05/06/18 05/06/18 Range/Units 06:36 06:36 06:36 WBC 13.7 H (3.8-10.6) k/uL RBC 3.90 L (4.30-5.90) m/uL Hgb 11.6 L (13.0-17.5) gm/dL Hct 35.2 L (39.0-53.0) % Neutrophils # 12.1 H (1.3-7.7) k/uL Lymphocytes # 0.8 L (1.0-4.8) k/uL INR 1.3 H (<1.2) Chloride 108 H (98-107) mmol/L BUN 37 H (9-20) mg/dL Creatinine 1.28 H (0.66-1.25) mg/dL Glucose 114 H (74-99) mg/dL POC Glucose (mg/dL) (75-99) mg/dL Hemoglobin A1c (4.0-6.0) % 05/06/18 Range/Units 11:44 WBC (3.8-10.6) k/uL RBC (4.30-5.90) m/uL Hgb (13.0-17.5) gm/dL Hct (39.0-53.0) % Neutrophils # (1.3-7.7) k/uL Lymphocytes # (1.0-4.8) k/uL INR (<1.2) Chloride (98-107) mmol/L BUN (9-20) mg/dL Creatinine (0.66-1.25) mg/dL Glucose (74-99) mg/dL POC Glucose (mg/dL) 174 H (75-99) mg/dL Hemoglobin A1c (4.0-6.0) % Microbiology - Last 24 Hours (Table) 05/04/18 21:53 Blood Culture - Preliminary Blood No Growth after 24 hours Assessment and Plan Plan: Assessment: 1 acute left lower extremity DVT, agree with heparin switched to Xarelto and discharged home on Xarelto. 2 moderate severe COPD presently inactive 3 left upper lobe mass, needs workup on outpatient basis 4 benign essential hypertension 5 coronary artery disease 6 type 2 diabetes, 7 hyperkalemia and acute kidney injury, could be related to medications including lisinopril and diuretics, improved Recommendation: Patient has been started on Xarelto, clinically remains stable, stable for discharge from pulmonary standpoint, follow-up with Dr. Riley in the office regarding the left upper lobe mass for outpatient workup. I performed a history & physical examination of the patient and discussed their management with my nurse practitioner, Ada Fraser. I reviewed the nurse practitioner's note and agree with the documented findings and plan of care. Lung sounds are diminished, with minimal wheezes. The findings and the impression was discussed with the patient. I attest to the documentation by the nurse practitioner. Time with Patient: Less than 30
== END 2018-05-06 13:30 | disposition home or self-care (01) | DRG 300 ==
LOC: EC 18:14 → 5MS5E 21:50 → OBSVTOIN 05-05 15:39
PROVIDERS: ADMIT Internal Medicine; ATTEND Internal Medicine
DX: I82.412 Acute embolism and thrombosis of left femoral vein (principal); J44.1 Chronic obstructive pulmonary disease with (acute) exacerbation; N17.9 Acute kidney failure, unspecified; E78.5 Hyperlipidemia, unspecified; E87.5 Hyperkalemia; F32.9 Major depressive disorder, single episode, unspecified; F41.9 Anxiety disorder, unspecified; I10 Essential (primary) hypertension; I25.10 Atherosclerotic heart disease of native coronary artery without angina pectoris; I25.2 Old myocardial infarction; N40.0 Benign prostatic hyperplasia without lower urinary tract symptoms; T38.0X5A Adverse effect of glucocorticoids and synthetic analogues, initial encounter; T50.2X5A Adverse effect of carbonic-anhydrase inhibitors, benzothiadiazides and other diuretics, initial encounter; T46.4X5A Adverse effect of angiotensin-converting-enzyme inhibitors, initial encounter; E11.65 Type 2 diabetes mellitus with hyperglycemia; G89.29 Other chronic pain; M54.9 Dorsalgia, unspecified; J98.9 Respiratory disorder, unspecified; Z79.899 Other long term (current) drug therapy; Z79.02 Long term (current) use of antithrombotics/antiplatelets; Z79.4 Long term (current) use of insulin; Z87.891 Personal history of nicotine dependence; Z86.73 Personal history of transient ischemic attack (TIA), and cerebral infarction without residual deficits; Z88.1 Allergy status to other antibiotic agents; Z87.01 Personal history of pneumonia (recurrent); Z98.42 Cataract extraction status, left eye; Z98.41 Cataract extraction status, right eye; Z96.1 Presence of intraocular lens; Z90.49 Acquired absence of other specified parts of digestive tract
CPT/HCPCS: 36415; 71045; 71046; 71275; 80048; 80053; 82550; 82553; 83036; 83605; 84484; 85025; 85610; 85730; 87040; 93005; 94640; 94760; 96361; 96365; 96375; 96376; 99285

== ENCOUNTER 2018-05-30 08:59 | Day surgery (SDC) | payer MEDICARE, OTHER ==
[2018-05-24 15:11] VITALS: BMI 26.2
[~2018-05-30 08:59] MED LIST: ALBUTEROL NEB (CONC) 2.5 MG/0.5 ML INHALATION ONE; ATROPINE SULFATE 0.4 MG/ML 1 ML VIAL IM ONE; LACTATED RINGERS 1,000 ML IV SCH; LIDOCAINE 1% 20 ML VIAL (10MG/ML) FOR IV START INTRADERMA PRN; LIDOCAINE VISCOUS 300 MG/15 ML CUP MUCOUS MEM ONE; Pre Op ABX Message 1 EACH MISC MISCELLANE ONE
[2018-05-30] MEDS: LACTATED RINGERS 1,000 ML IV ONE ×2 (09:37→11:14)
[2018-05-30 09:52] LABS: Glucose,Whole Blood 116 mg/dL (75-99)
[2018-05-30] MEDS ORDERED: ONDANSETRON 4 MG/2 ML VIAL ONE (10:34)
[2018-05-30] MEDS ORDERED: DEXAMETHASONE SOD PHOS (MDV) 100 MG/10 ML VIAL IV ONE (10:39)
[2018-05-30] MEDS ORDERED: ONDANSETRON 4 MG/2 ML VIAL IVP ONE (10:40)
[2018-05-30] MEDS ORDERED: GLYCOPYRROLATE 0.2 MG/ML 2 ML VIAL ONE (11:19)
[2018-05-30] MEDS ORDERED: MIDAZOLAM 2 MG/2 ML VIAL ONE (11:19)
[2018-05-30] MEDS ORDERED: ROCURONIUM BROMIDE 10 MG/ML 10 ML VIAL IV ONE (11:19)
[2018-05-30] MEDS ORDERED: LIDOCAINE 1% INJ 10MG/ML (20 ML MDV) ONE (11:19)
[2018-05-30] MEDS ORDERED: PHENYLEPHRINE-0.9% NACL SYG 1 MG/10 ML SYRINGE ONE (11:19)
[2018-05-30] MEDS ORDERED: PROPOFOL 10 MG/ML 20 ML VIAL IV ONE (11:19)
[2018-05-30] MEDS ORDERED: fentaNYL (PF) 50 MCG/ML 2 ML AMP ONE (11:19)
[2018-05-30] MEDS ORDERED: NEOSTIGMINE 1 MG/ML 10 ML VIAL ONE (11:19)
[2018-05-30] MEDS ORDERED: SUCCINYLCHOLINE CHLORIDE 100 MG/5 ML SYR IV ONE (11:19)
[2018-05-30] MEDS ORDERED: LACTATED RINGERS 1,000 ML IV ONE (12:30)
--- NOTE | 2018-05-30 12:50 | CT ---
EXAMINATION TYPE: CT Chest clint Street Protocol DATE OF EXAM: 05/30/2018 COMPARISON: 05/04/2018 HISTORY: Bronchial navigation CT DLP: 650 mGycm Automated exposure control for dose reduction was used. FINDINGS: There is redemonstration of an approximately 4.1 x 2.6 cm left upper lobe masslike consolidation cont aining a punctate calcification abutting the mediastinal border without gross evidence of invasion on soft tissue windows. There is surrounding groundglass opacity and multiple satellite nodules measuri ng up to 4 mm on series 5 image 33 and 34 with groundglass opacity extending medially along the peric ardial border to extend towards the anterior junction line on series 5 image 40. Again within the right upper lobe anteriorly there is a noncalcified 9 mm pulmonary nodule on series 5 image 28. Few scattered tree-in-bud opacities are also seen on the right such as on series 5 image 25 and series 5 image 30 as well as image 33 and 36 is also seen within the lower lobe peripherally. Additionally tree-in-bud opacities are noted within the left lower lobe anteriorly such as on image 5 4 Some solid right upper lobe 3 mm pulmonary nodule seen medially on image 26. No pleural effusion or p neumothorax is identified. Pancreatic parenchymal atrophy and surgical absence of the gallbladder are noted. Dense coronary manjinder ry calcifications are seen. No pericardial effusion. No gross evidence of hilar adenopathy. There is slight decrease in size of the left peritracheal lymph node seen on series 4 image 27 measuring 1.1 c m in short axis. No axillary adenopathy. No gross evidence of supraclavicular adenopathy. No suspicio us osseous lesions are seen. IMPRESSION: 1. LEFT UPPER LOBE CONSOLIDATION IS MASSLIKE AND THEREFORE NAVIGATIONAL BRONCHOSCOPY IS BEING PERFORM ED. THIS COULD REPRESENT NEOPLASM HOWEVER GIVEN THE MULTIFOCAL TREE-IN-BUD OPACITIES MULTIFOCAL PNEUM ONIA IS ALSO A POSSIBILITY. SHORT-TERM FOLLOW-UP IS RECOMMENDED PENDING BIOPSY RESULTS. 2. MEDIASTINAL ADENOPATHY APPEARS TO HAVE MINIMALLY DECREASED IN THE INTERIM.
[2018-05-30 13:11] VITALS: TEMP 97
--- NOTE | 2018-05-30 13:27 | XR ---
EXAMINATION TYPE: XR chest 1V DATE OF EXAM: 05/30/2018 HISTORY: Status post bronchoscopy. COMPARISON: May 06, 2018 TECHNIQUE: Single view of the chest is submitted. FINDINGS: Demonstrated are scattered senescent parenchymal change. Left hilar mass noted. No evidence for left-sided pneumothorax. The heart is stable. Hilar and mediastinal structures are within normal limits. Degenerative changes are seen of the dorsal spine. IMPRESSION: 1. No evidence for left-sided pneumothorax in a patient who is status post bronchoscopy.
[2018-05-30 13:40] VITALS: RESP 18
[2018-05-30 14:42] VITALS: BP 150/68; PULSE 68
[2018-05-30 17:02] LABS: Appearance,BF Blood Tinged; Nucleated Cells, Body Fluid 40 /uL; RBC, Body Fluid 4260 /uL
[2018-05-30 17:03] LABS: Mononuclear WBC,Body Fluid 32 %; Polynuclear WBC,Body Fluid 66 %; Total Cells Counted,Body Fluid 100
--- NOTE | 2018-05-30 20:35 | OP ---
OPERATIVE REPORT DATE OF SERVICE: 05/30/2018. PROCEDURE: Electromagnetic navigational bronchoscopy. OPERATORS: Dr. Gonsales, Dr. Garcia. There was informed consent and universal timeout. The patient's procedure took place in the OR side of [facility], Room #1. ANESTHESIA: Anesthesia provided general anesthetic and unconscious sedation. PREOPERATIVE DIAGNOSIS: Lesion lingula. POSTOPERATIVE DIAGNOSIS: Lesion lingula. DESCRIPTION OF PROCEDURE: After the patient was adequately sedated, under the effects of general anesthesia, the bronchoscope was inserted through the bronchoscope adapter connected to the endotracheal tube. The [employer] electromagnetic navigational bronchoscopy device was used to isolate the lesion in the lingula. Initially, we did multiple transbronchial biopsies to the lingula. We will relatively close to the lesion, but not on the lesion per se. Afterwards, we did brushes and washes in that same area. The patient tolerated the procedure well. We attempted to do a needle biopsies/Zambrano needle, but unfortunately we were unable to do so. The patient was stable throughout the procedure. There was minimal bleeding. We did a thorough airway examination prior to the procedure and the airways were completely clear of any masses or lesions. Right upper lobe and its 3 segments, right middle lobe and its 2 segments, right lower lobe and its 5 segments, left upper lobe proper and its 2 segments, lingula and its 2 segments, and left lower lobe and its 4 segments were free of any dominant mass. There were no secretions. The mucosa looked healthy. After the procedure was done, the bronchoscope was withdrawn. The patient will be recovered. A chest x-ray to be ordered. The specimens will be sent to the laboratory for analysis. MMODL / IJN: [id number] /
== END 2018-05-30 14:50 | disposition home or self-care (01) ==
LOC: ORWHC2ENDO 08:59
PROVIDERS: ATTEND Internal Medicine Critical Care Medicine
DX: R91.1 Solitary pulmonary nodule (principal); R59.0 Localized enlarged lymph nodes; I82.402 Acute embolism and thrombosis of unspecified deep veins of left lower extremity; J44.9 Chronic obstructive pulmonary disease, unspecified; M50.30 Other cervical disc degeneration, unspecified cervical region; E11.9 Type 2 diabetes mellitus without complications; I10 Essential (primary) hypertension; E78.5 Hyperlipidemia, unspecified; I25.2 Old myocardial infarction; Z79.82 Long term (current) use of aspirin; Z79.51 Long term (current) use of inhaled steroids; Z79.899 Other long term (current) drug therapy; Z79.4 Long term (current) use of insulin; Z79.01 Long term (current) use of anticoagulants; Z79.02 Long term (current) use of antithrombotics/antiplatelets; Z87.891 Personal history of nicotine dependence
CPT/HCPCS: 87798 ×3; 87496; 87498; 87529; 88104; 88108; 88305; 89050; 88342; 87252; 87502; 87634; 88341; 87070; 87205; 87116; 87102; 87206; 71045; 71250; 31628; 31623; 31627; J2250; J2710; J2405; J2001; J3010; J1100; J2370; J0330; J2704; 31624; 31625

== ENCOUNTER → 2018-06-08 | Outpatient (CLI) | payer MEDICARE, OTHER ==
--- NOTE | 2018-06-09 10:22 | PE ---
EXAMINATION TYPE: PET CT fusion skull to thigh DATE OF EXAM: 06/08/2018 COMPARISON: CT chest 05/30/2018 Prior PET/CT: None HISTORY: Solitary pulmonary nodule TECHNIQUE: Following the intravenous administration of 1 3.15 mCi of F-18 FDG, whole body images are performed from the skull base to the midthigh. Images are reviewed on the computer in the coronal, axial, and sagittal planes. Reconstructed rotating images are created on independent workstation and reviewed on the computer. A localization and attenuation correction CT is performed in conjunction with the PET scan. DLP: 452.55 mGycm SCAN: Initial Scan Blood glucose: 161 mg/dL Average Mediastinum SUV: 1.37 Average Liver SUV: 2.45 FINDINGS: NECK: No abnormal uptake. Some brown fat appears to be on the right neck. THORAX: There is focal radiotracer accumulation within the irregular soft tissue mass adjacent to the left mediastinum. SUV value is 3.71 which can be compatible with neoplasm. Image 89. No mediastinal uptake is evident. A 0.9 cm focal nodule is in the anterior right upper lobe, image 81, with an SUV v alue of 0.37, likely benign. ABDOMEN: No abnormal uptake is evident. There is uptake through the colon which can be within normal limits. There is some increased uptake within the area of inflammatory change within the right anterior abdom en. SUV value of 3.68 is felt to be related to inflammatory changes subcutaneous tissue. PELVIS: No abnormal uptake OSSEOUS STRUCTURES: No abnormal uptake LOCALIZATION CT: The irregular mass abutting the left mediastinum at the level the main pulmonary art cat measures 2.3 x 3.8 cm. Series 3 image 91. Thoracic aorta at the level the main pulmonary artery i s 3.3 cm. The main pulmonary artery at the location 0.7 cm. Coronary artery calcifications present. U rinary bladder is decompressed which may account for the apparent wall thickening. Prostate is promin ent. COMPARISON: The more subtle scattered infiltrates within the bilateral lungs are less well visualized on the localization CT. There is a small nodule within the anterior right upper lobe with an SUV hector ue 0.37 which may be benign. Additional areas of pneumonitis are likely too small to evaluate by PET scan. Metastatic disease is not excluded. IMPRESSION: 1. Increased uptake within the irregular mass adjacent to the left mediastinal border compatible with neoplasm. 2. Metastatic disease is not identified by PET scan. The nodule within the right upper lobe does not have elevated uptake. The additional areas of pneumonitis within the lung wright are too small to jona luate by PET CT for metastatic disease at these locations is not excluded. 2. Urinary bladder wall thickening in an incompletely distended urinary bladder. Consider additional workup. Suspicious uptake within urinary bladder wall is not identified by PET/CT. 3. Right lower quadrant subcutaneous superficial soft tissue inflammatory change with increased uptak e of radiotracer likely related to the inflammatory change.
== END ==
LOC: RADPETMAIN 14:25
PROVIDERS: ATTEND Internal Medicine Critical Care Medicine
DX: R91.1 Solitary pulmonary nodule (principal); J18.9 Pneumonia, unspecified organism
CPT/HCPCS: 78815; A9552

== ENCOUNTER 2018-08-31 08:55 | Inpatient (IN) | payer MEDICARE, OTHER ==
[2018-08-31] MEDS ORDERED: ASPIRIN 81 MG PO STA (09:52)
[2018-08-31] MEDS ORDERED: NITROGLYCERIN OINT 1 INCH/GM PACKET TOPICAL STA (09:52)
--- NOTE | 2018-08-31 09:56 | ED ---
General Adult HPI - General Chief complaint: Chest Pain Stated complaint: Chest pain/not feeling good Time Seen by Provider: 08/31/18 09:23 Source: patient, family, RN notes reviewed Mode of arrival: ambulatory Limitations: no limitations - History of Present Illness Initial comments: Patient is a pleasant 72-year-old male presenting to the emergency department for not feeling well. Patient is a poor historian and has difficulty explaining his symptoms. Patient originally denied having any chest discomfort several times. After history and physical and reassessment of the chart patient was again confronted regarding this and states he did have some chest discomfort. Patient had a difficult time describing it. Patient states it lasted around 5 minutes then resolved. No history of similar symptoms previously. Patient amiss to feeling slightly lightheaded at this point however overall feels well at this time. No associated dyspnea or nausea or diaphoresis. - Related Data Home Medications Medication Instructions Recorded Confirmed Insulin Detemir [Levemir] 72 unit SQ HS 07/09/14 05/30/18 Isosorbide Mononitrate ER [Imdur] 30 mg PO DAILY 07/09/14 05/30/18 amLODIPine [Norvasc] 5 mg PO DAILY 07/09/14 05/30/18 PARoxetine [Paxil] 20 mg PO DAILY 11/15/14 05/30/18 traMADol HCL [Ultram] 50 mg PO TID PRN 05/04/18 05/30/18 Ipratropium-Albuterol Nebulize 3 ml INHALATION RT-QID 05/05/18 05/30/18 [Duoneb 0.5 mg-3 mg/3 ml Soln] Previous Rx's Medication Instructions Recorded Lisinopril [Zestril] 5 mg PO DAILY #0 05/06/18 Rivaroxaban [Xarelto] 15 mg PO BID 21 Days #42 tab 05/06/18 Allergies Allergy/AdvReac Type Severity Reaction Status Date / Time No Known Allergies Allergy Verified 08/31/18 13:14 Review of Systems ROS Statement: Those systems with pertinent positive or pertinent negative responses have been documented in the HPI. ROS Other: All systems not noted in ROS Statement are negative. Constitutional: Denies: fever Eyes: Denies: eye pain ENT: Denies: ear pain Respiratory: Denies: cough, dyspnea Cardiovascular: Reports: chest pain Endocrine: Denies: fatigue Gastrointestinal: Denies: abdominal pain Genitourinary: Denies: dysuria Musculoskeletal: Denies: back pain Skin: Denies: rash Neurological: Denies: headache, weakness, confusion Past Medical History Past Medical History: Coronary Artery Disease (CAD), COPD, CVA/TIA, Diabetes Mellitus, Deep Vein Thrombosis (DVT), Hyperlipidemia, Hypertension, Myocardial Infarction (ME), Pneumonia, Prostate Disorder, Syncope Additional Past Medical History / Comment(s): COPD, diabetes mellitus type 2, BPH, left upper lobe lesion measuring 1.9 x 1.6 cm in size and not showing any metabolic activity, coronary artery disease with previous ME, diabetes mellitus , hypertension, hyperlipidemia, chronic back pain, BPH Last Myocardial Infarction Date:: 05/24/12 History of Any Multi-Drug Resistant Organisms: None Reported Past Surgical History: Back Surgery, Cholecystectomy, Heart Catheterization, Hernia Repair Additional Past Surgical History / Comment(s): 2011 cardiac cath-treated medically, low back surgery, ROBERTO CATARACT SX, abdominal hernia repair, bilateral cataract removal, bronchoscopy. left upper lobe of lung removed 07/2018 Past Anesthesia/Blood Transfusion Reactions: No Reported Reaction Past Psychological History: Anxiety, Depression Smoking Status: Former smoker Past Alcohol Use History: None Reported Past Drug Use History: None Reported - Past Family History Mother Family Medical History: No Reported History Father Family Medical History: Diabetes Mellitus Additional Family Medical History / Comment(s): Father of diabetes at the age of 83 yrs. General Exam Limitations: no limitations General appearance: alert, in no apparent distress Head exam: Present: atraumatic Eye exam: Present: normal appearance, PERRL, EOMI ENT exam: Present: normal oropharynx Neck exam: Present: normal inspection Respiratory exam: Present: normal lung sounds bilaterally. Absent: chest wall tenderness Cardiovascular Exam: Present: regular rate, normal rhythm Expanded Peripheral pulses: 2+: Radial (R), Radial (L), Posterior Tibialis (R), Posterior Tibialis (L) GI/Abdominal exam: Present: soft. Absent: tenderness Extremities exam: Present: pedal edema. Absent: calf tenderness Neurological exam: Present: alert, oriented X3, CN II-XII intact. Absent: motor sensory deficit Expanded Neurological exam: Present: protecting the airway Patient oriented to: Present: person, place, time Speech: Present: fluid speech Sensory exam: Upper Extremity Light Touch: Normal, Lower Extremity Light Touch: Normal Motor strength exam: RUE: 5, LUE: 5, RLE: 5, LLE: 5 Eye Response: (4) open spontaneously Motor Response: (6) obeys commands Verbal Response: (5) oriented Psychiatric exam: Present: normal affect, normal mood Skin exam: Present: normal color Course Vital Signs 08/31/18 08/31/18 08/31/18 09:02 10:00 10:30 Temperature 97.8 F Pulse Rate 76 67 66 Respiratory 18 19 20 Rate Blood Pressure 186/87 185/94 175/90 O2 Sat by Pulse 97 99 99 Oximetry 08/31/18 08/31/18 08/31/18 11:30 12:00 12:30 Temperature Pulse Rate 63 63 Respiratory 20 13 Rate Blood Pressure 183/96 170/88 171/97 O2 Sat by Pulse 98 99 Oximetry EKG Findings - EKG Comments: EKG Findings:: Sinus rhythm at 70. AK 164. QRS 88. QT 388. QTC 419. Normal axis. LVH criteria. No acute ST change. Medical Decision Making - Medical Decision Making Patient reevaluated. Patient and family updated. Case was discussed in detail with Dr. Vera, who will admit covering for Dr. Boyer. His droop as previously admitted this patient. Dr. Boyer will be placed on consult. Cardiology will be consulted - Lab Data Result diagrams: 08/31/18 10:12 08/31/18 10:12 Lab Results 08/31/18 08/31/18 08/31/18 Range/Units 10:12 10:12 10:12 WBC 6.7 (3.8-10.6) k/uL RBC 4.19 L (4.30-5.90) m/uL Hgb 12.7 L (13.0-17.5) gm/dL Hct 38.0 L (39.0-53.0) % MCV 90.7 (80.0-100.0) fL MCH 30.3 (25.0-35.0) pg MCHC 33.4 (31.0-37.0) g/dL RDW 13.7 (11.5-15.5) % Plt Count 162 (150-450) k/uL Neutrophils % 81 % Lymphocytes % 9 % Monocytes % 6 % Eosinophils % 3 % Basophils % 0 % Neutrophils # 5.5 (1.3-7.7) k/uL Lymphocytes # 0.6 L (1.0-4.8) k/uL Monocytes # 0.4 (0-1.0) k/uL Eosinophils # 0.2 (0-0.7) k/uL Basophils # 0.0 (0-0.2) k/uL PT (9.0-12.0) sec INR (<1.2) APTT (22.0-30.0) sec D-Dimer (<0.60) mg/L FEU Sodium 140 (137-145) mmol/L Potassium 4.5 (3.5-5.1) mmol/L Chloride 106 (98-107) mmol/L Carbon Dioxide 27 (22-30) mmol/L Anion Gap 7 mmol/L BUN 24 H (9-20) mg/dL Creatinine 1.11 (0.66-1.25) mg/dL Est GFR (CKD-EPI)AfAm 77 (>60 ml/min/1.73 sqM) Est GFR (CKD-EPI)NonAf 67 (>60 ml/min/1.73 sqM) Glucose 89 (74-99) mg/dL Calcium 9.7 (8.4-10.2) mg/dL Magnesium 1.6 (1.6-2.3) mg/dL Total Bilirubin 0.4 (0.2-1.3) mg/dL AST 18 (17-59) U/L ALT 23 (21-72) U/L Alkaline Phosphatase 76 (38-126) U/L Total Creatine Kinase 62 (55-170) U/L CK-MB (CK-2) 2.2 (0.0-2.4) ng/mL CK-MB (CK-2) Rel Index 3.5 Troponin I <0.012 (0.000-0.034) ng/mL Total Protein 6.2 L (6.3-8.2) g/dL Albumin 3.5 (3.5-5.0) g/dL 08/31/18 Range/Units 10:12 WBC (3.8-10.6) k/uL RBC (4.30-5.90) m/uL Hgb (13.0-17.5) gm/dL Hct (39.0-53.0) % MCV (80.0-100.0) fL MCH (25.0-35.0) pg MCHC (31.0-37.0) g/dL RDW (11.5-15.5) % Plt Count (150-450) k/uL Neutrophils % % Lymphocytes % % Monocytes % % Eosinophils % % Basophils % % Neutrophils # (1.3-7.7) k/uL Lymphocytes # (1.0-4.8) k/uL Monocytes # (0-1.0) k/uL Eosinophils # (0-0.7) k/uL Basophils # (0-0.2) k/uL PT 10.2 (9.0-12.0) sec INR 1.0 (<1.2) APTT 23.9 (22.0-30.0) sec D-Dimer 0.99 H (<0.60) mg/L FEU Sodium (137-145) mmol/L Potassium (3.5-5.1) mmol/L Chloride (98-107) mmol/L Carbon Dioxide (22-30) mmol/L Anion Gap mmol/L BUN (9-20) mg/dL Creatinine (0.66-1.25) mg/dL Est GFR (CKD-EPI)AfAm (>60 ml/min/1.73 sqM) Est GFR (CKD-EPI)NonAf (>60 ml/min/1.73 sqM) Glucose (74-99) mg/dL Calcium (8.4-10.2) mg/dL Magnesium (1.6-2.3) mg/dL Total Bilirubin (0.2-1.3) mg/dL AST (17-59) U/L ALT (21-72) U/L Alkaline Phosphatase (38-126) U/L Total Creatine Kinase (55-170) U/L CK-MB (CK-2) (0.0-2.4) ng/mL CK-MB (CK-2) Rel Index Troponin I (0.000-0.034) ng/mL Total Protein (6.3-8.2) g/dL Albumin (3.5-5.0) g/dL - Radiology Data Radiology results: report reviewed (Computed tomography scan the chest negative for pulmonary embolism. There is right upper lobe nodule.), image reviewed ( Chest x-ray shows left upper lobe density.) Disposition Clinical Impression: Chest pain Disposition: ADMITTED IP TO THIS HOSP Is patient prescribed a controlled substance at d/c from ED?: No Referrals: Renzo Boyer MD [Primary Care Provider] - 1-2 days Decision Time: 13:36
[2018-08-31 10:59] LABS: Basophils % (A) 0 %; Eosinophils # (A) 0.2 k/uL (0-0.7); Eosinophils % (A) 3 %; HGB 12.7 gm/dL (13.0-17.5); Lymphocytes # (A) 0.6 k/uL (1.0-4.8); Lymphocytes % (A) 9 %; MCH 30.3 pg (25.0-35.0); MCHC 33.4 g/dL (31.0-37.0); MCV 90.7 fL (80.0-100.0); Mean Platelet Volume 7.4; Monocytes # (A) 0.4 k/uL (0-1.0); Monocytes % (A) 6 %; Neutrophils # (A) 5.5 k/uL (1.3-7.7); Neutrophils % (A) 81 %; Platelet Count 162 k/uL (150-450); RBC 4.19 m/uL (4.30-5.90); RDW 13.7 % (11.5-15.5); WBC 6.7 k/uL (3.8-10.6)
--- NOTE | 2018-08-31 11:03 | XR ---
EXAMINATION TYPE: XR chest 2V DATE OF EXAM: 08/31/2018 HISTORY: Chest Pain. REFERENCE: Previous study dated 05/30/2018. FINDINGS: There is tenting of the left hemidiaphragm. There is a triangular opacity in the left upper lobe which may represent atelectasis or early infiltrate. The right lung is clear. The heart is not enlarged. No pleural fluid is seen. IMPRESSION: 1. POSTSURGICAL CHANGE. 2. NEW OPACITY IN THE LEFT UPPER LUNG. DIFFERENTIAL CONSIDERATIONS INCLUDE ATELECTASIS, PNEUMONIA AND NEOPLASM.
[2018-08-31 11:09] LABS: Albumin 3.5 g/dL (3.5-5.0); Calcium 9.7 mg/dL (8.4-10.2); Magnesium 1.6 mg/dL (1.6-2.3); Potassium 4.5 mmol/L (3.5-5.1); Total Bilirubin 0.4 mg/dL (0.2-1.3); Total Protein 6.2 g/dL (6.3-8.2)
[2018-08-31 11:14] LABS: Partial Thromboplastin Time 23.9 sec (22.0-30.0); Prothrombin Time 10.2 sec (9.0-12.0)
[2018-08-31 11:19] LABS: Creatine Kinase 62 U/L (55-170)
[2018-08-31 11:25] LABS: D-Dimer 0.99 mg/L FEU (<0.60)
[2018-08-31 11:32] LABS: Creatine Kinase MB 2.2 ng/mL (0.0-2.4); Troponin I <0.012 ng/mL (0.000-0.034)
--- NOTE | 2018-08-31 12:13 | CT ---
EXAMINATION TYPE: CT angio chest DATE OF EXAM: 08/31/2018 12:01 PM COMPARISON: Previous study dated 05/04/2018. HISTORY: Chest pain. PE protocol CT DLP: 504.2 mGycm Automated exposure control for dose reduction was used. CONTRAST: CTA scan of the thorax is performed without and with IV Contrast, patient injected with 100 ml mL of Isovue 370, pulmonary embolism protocol. . FINDINGS: The pulmonary mass adjacent to the left heart border on the previous study has resolved. Th ere has developed a 9.7 mm nodule in the right middle lobe, best seen on image 102. This was not pres ent previously. No other definite nodular opacities are seen. There has been interval development of a small left-sided pleural effusion. There is no significant axillary, internal mammary, mediastinal or hilar adenopathy. There is no evidence of pulmonary embolus. The aorta is normal in caliber without evidence of dissection. There is no pericardial fluid identified. The heart is not enlarged. Within the abdomen, the gallbladder is been removed. Liver and spleen appear normal. Both adrenal glands appear normal. Visualized portions of the kidneys are unremarkable. No bony lesion is seen. IMPRESSION: 1. THIS EXAMINATION IS NEGATIVE FOR PULMONARY EMBOLUS. 2. NEW RIGHT PARENCHYMAL NODULE, LIKELY METASTATIC. 3. INTERVAL DEVELOPMENT OF A LEFT-SIDED EFFUSION.
[2018-08-31] MEDS ORDERED: NITROGLYCERIN SL TABS 0.4 MG TAB SUBLINGUAL PRN (13:36)
[2018-08-31] MEDS: IPRATROPIUM-ALBUTEROL 3 ML NEB INHALATION SCH ×2 (15:28→19:02)
[2018-08-31] MEDS ORDERED: HYDROcodone/APAP 5-325MG 1 EACH TAB PO PRN (16:00)
--- NOTE | 2018-08-31 16:58 | ECHOF ---
Referral Reason: MEASUREMENTS -------- HEIGHT: 180.3 cm WEIGHT: 88.0 kg BP: IVSd: 1.0 cm (0.6 - 1.1) LVIDd: 4.7 cm (3.9 - 5.3) LVPWd: 1.2 cm (0.6 - 1.1) IVSs: 1.5 cm LVIDs: 2.8 cm LVPWs: 1.9 cm LAESV Index (A-L): 11.13 ml/m Ao Diam: 3.7 cm (2.0 - 3.7) AV Cusp: 2.0 cm (1.5 - 2.6) LA Diam: 3.3 cm (2.7 - 3.8) MV EXCURSION: 18.395 mm (> 18.000) MV EF SLOPE: 133 mm/s (70 - 150) EPSS: 0.5 cm MV E Vincent: 0.69 m/s MV DecT: 289 ms MV A Vincent: 0.95 m/s MV E/A Ratio: 0.73 RAP: 5.00 mmHg RVSP: 13.89 mmHg FINDINGS -------- Sinus rhythm. This was a technically adequate study. The left ventricular size is normal. There is borderline concentric left ventricular hypertrophy. Overall left ventricular systolic function is normal with, an EF between 55 - 60 %. The right ventricle is normal in size. The left atrium is normal in size. The right atrium is normal in size. The aortic valve is trileaflet, and appears structurally normal. No aortic stenosis or regurgitation. The mitral valve is normal. Mild mitral regurgitation is present. Mild tricuspid regurgitation present. There is no evidence of pulmonary hypertension. The right v entricular systolic pressure, as measured by Doppler, is 13.89mmHg. There is no pulmonic regurgitation present. The aortic root size is normal. Normal inferior vena cava with normal inspiratory collapse consistent with estimated right atrial pre ssure of 5 mmHg. There is no pericardial effusion. CONCLUSIONS -------- 1. Sinus rhythm. 2. This was a technically adequate study. 3. The left ventricular size is normal. 4. There is borderline concentric left ventricular hypertrophy. 5. Overall left ventricular systolic function is normal with, an EF between 55 - 60 %. 6. The left atrium is normal in size. 7. The aortic valve is trileaflet, and appears structurally normal. No aortic stenosis or regurgitati on. 8. The mitral valve is normal. 9. Mild mitral regurgitation is present. 10. Mild tricuspid regurgitation present. 11. There is no evidence of pulmonary hypertension. 12. There is no pulmonic regurgitation present. 13. The aortic root size is normal. 14. Normal inferior vena cava with normal inspiratory collapse consistent with estimated right atrial pressure of 5 mmHg. 15. There is no pericardial effusion. RUBBING BED OPERATOR: Melina Curry RDCS
[2018-08-31 17:04] LABS: Glucose,Whole Blood 199 mg/dL (75-99)
[2018-08-31] MEDS: INSULIN ASPART 100 UNIT/ML 1 ML 10 ML VIAL SQ SCH ×2 (17:35→20:58)
[2018-08-31 17:55] LABS: Creatine Kinase 62 U/L (55-170)
[2018-08-31 18:09] LABS: Creatine Kinase MB 2.1 ng/mL (0.0-2.4); Troponin I <0.012 ng/mL (0.000-0.034)
--- NOTE | 2018-08-31 18:14 | CONS ---
CONSULTATION Mr. Torres is a 72-year-old male with no prior documented history of coronary artery disease, history of chronic obstructive lung disease, who recently underwent a lobectomy at [facility] for lung CA who presented not feeling well. He had some chest heaviness. At this time, his symptoms have resolved. The patient has no prior documented history of coronary artery disease, but no recent cardiac workup. He has significant dyspnea on exertion related to his chronic obstructive lung disease, although he stopped smoking about 20 years ago. He denies any dizziness or palpitations. No syncope. No PND, orthopnea. No significant peripheral edema. His coronary risk factors are positive for hypertension, diabetes. His lipid profile is not available. MEDICATION: Include Advair, Lasix 20 mg daily, Neurontin, insulin, isosorbide mononitrate 30 mg daily, Zestril 10 mg daily, Paxil, Xarelto 20 mg daily, and Norvasc. REVIEW OF SYSTEMS: RESPIRATORY system: He has chronic obstructive lung disease and chronic dyspnea on exertion with recent lung CA. GI system: No recent GI bleeding. No peptic ulcer disease. system: No dysuria or hematuria. Nervous system: No history of stroke or seizure. PHYSICAL EXAMINATION: He is a 72-year-old male, alert, oriented, in no apparent distress. Blood pressure running in the 160-170s with a heart rate in the 60s. HEAD: Normocephalic. Eyes: Sclerae anicteric. Neck: Good carotid upstroke. No bruit. No jugular venous distention. Lungs with decreased air exchange. No wheezes. Heart regular rate and rhythm S1, S2. No S3 with systolic ejection murmur. No diastolic murmur. No rub. ABDOMEN: Soft, nontender. EXTREMITIES: No edema. LAB DATA: BUN and creatinine of 24 and 1.1, potassium of 4.5, hemoglobin of 12.7. D-dimer 0.99. Troponin less than 0.012. CT angiogram of the chest revealed no evidence of pulmonary embolism. There is a parenchymal nodule. His EKG reveals sinus mechanism, normal axis, intervals with changes consistent with left ventricular hypertrophy. IMPRESSION: 1. Vague symptoms of not feeling well, etiology unclear. 2. Symptoms of chest pain with no evidence of acute coronary syndrome so far. 3. History of chronic obstructive pulmonary disease and recent lung carcinoma surgery. 4. Hypertension remains elevated. 5. Diabetes mellitus. RECOMMENDATIONS: From the cardiac standpoint, we will continue on the aspirin. I will add to his regimen a beta deni. I will also add statin. We will obtain echocardiogram with Doppler. Depending on results of his lab data, further recommendations will be made. Thank you for this consult. We will follow with you. MMODL / IJN: [id number] /
[2018-08-31] MEDS: NITROGLYCERIN OINT 1 INCH/GM PACKET TOPICAL SCH (19:58)
[2018-08-31] MEDS: METOPROLOL TARTRATE 25 MG TAB PO SCH (20:02)
[2018-08-31] MEDS: GABAPENTIN 300 MG CAP PO SCH (20:02)
[2018-08-31 20:29] LABS: Glucose,Whole Blood 249 mg/dL (75-99)
[2018-08-31] MEDS: INSULIN DETEMIR 100 UNIT/ML 10 ML VIAL SQ SCH (20:59)
[2018-09-01 00:02] LABS: Creatine Kinase 54 U/L (55-170)
[2018-09-01 00:14] LABS: Creatine Kinase MB 1.7 ng/mL (0.0-2.4); Troponin I <0.012 ng/mL (0.000-0.034)
[2018-09-01 07:02] LABS: Glucose,Whole Blood 134 mg/dL (75-99)
[2018-09-01] MEDS: IPRATROPIUM-ALBUTEROL 3 ML NEB INHALATION SCH ×4 (07:34→19:17)
[2018-09-01] MEDS: SYMBICORT 80-4.5 MCG INHALER INHALATION SCH ×2 (07:34→19:15)
[2018-09-01 08:12] LABS: Calcium 9.5 mg/dL (8.4-10.2); Potassium 4.3 mmol/L (3.5-5.1)
[2018-09-01] MEDS ORDERED: LISINOPRIL 10 MG TAB PO SCH (09:00)
[2018-09-01] MEDS ORDERED: ASPIRIN 325 MG TAB PO SCH (09:00)
[2018-09-01] MEDS: INSULIN ASPART 100 UNIT/ML 1 ML 10 ML VIAL SQ SCH ×4 (09:10→20:36)
[2018-09-01] MEDS: GABAPENTIN 300 MG CAP PO SCH ×2 (09:11→20:28)
[2018-09-01] MEDS: FUROSEMIDE 20 MG TAB PO SCH (09:11)
[2018-09-01] MEDS: METOPROLOL TARTRATE 25 MG TAB PO SCH ×2 (09:11→20:28)
[2018-09-01] MEDS: ASPIRIN 81 MG PO SCH (09:11)
[2018-09-01] MEDS: amLODIPine 5 MG TAB PO SCH (09:11)
[2018-09-01] MEDS: PARoxetine 20 MG TAB PO SCH (09:11)
[2018-09-01] MEDS: ATORVASTATIN 40 MG TAB PO SCH (09:11)
--- NOTE | 2018-09-01 09:30 | PN ---
PROGRESS NOTE Mr. Torres is a 72-year-old male who has who presented with symptoms of chest discomfort and not feeling well. He has a history of lung CA, status post recent surgical intervention, history of hypertension, hyperlipidemia, and diabetes mellitus. He is doing well this morning. He is denying any chest pain. His breathing has been stable. He denies any dizziness or palpitations. He denies any nausea. He continues to be on aspirin once a day, Lasix 20 mg daily, metoprolol tartrate 25 mg twice a day, lisinopril 10 mg daily, insulin. PHYSICAL EXAMINATION: Blood pressure 160/80 with a heart in the 60s. LUNGS: Clear. Heart regular rate and rhythm. S1, S2. No S3. No rub. ABDOMEN: Soft and nontender. EXTREMITIES: No edema. LAB DATA: Troponin less than 0.012. BUN and creatinine 22 and 1.06, cholesterol 137, LDL of 81. He had an echocardiogram that showed a preserved systolic function with mild mitral and tricuspid regurgitation. CONCLUSION: 1. Symptoms of chest discomfort in patient with multiple risk factors, etiology unclear. 2. Hypertension. 3. History of diabetes. 4. History of lung carcinoma. RECOMMENDATIONS: I recommend to proceed with myocardial perfusion imaging to further assess his status and guide his treatment. I will increase the dose of his RAFAEL inhibitor. Follow his blood pressure. Depending on his progress, further recommendation will be made. MMODL / IJN: [id number] /
[2018-09-01] MEDS: LISINOPRIL 10 MG TAB PO SCH ×2 (10:17→20:28)
[2018-09-01 11:48] LABS: Glucose,Whole Blood 260 mg/dL (75-99)
--- NOTE | 2018-09-01 12:48 | P.HPIM ---
History of Present Illness H&P Date: 08/31/18 Chief Complaint: Chest pain Patient is a 72-year-old male with a known history of COPD with recent lobectomy at the due to lung cancer and came to ER with complaints of a funny feeling in the chest and heaviness. Patient is patient denied any complaints of chest pain. Patient denied any prior history of cardiac disease and stent placement. Denied any radiation of the pain. No associated nausea vomiting or headache or dizziness or lightheadedness. No leg swelling. Patient does have a history of COPD, diabetes type 2, DVT, hypertension, hyperlipidemia and history of syncope. Patient follows with pulmonary as an outpatient. EKG showed normal sinus rhythm Chest x-ray showed postsurgical change. New opacity in the left upper lung. Differential considerations include atelectasis, pneumonia and neoplasm. CT chest showed is negative for any pulmonary embolus. Right parenchymal nodule. Likely metastatic. Interval development of left- sided effusion. Troponin 1 negative. D-dimer 0.99 Review of Systems Constitutional: Patient denies any fever or chills . No generalized weakness or weight loss. Abdomen: Patient denied nausea vomiting and diarrhea and abdominal pain. Cardiovascular: Patient denies any chest pain or short of breath no palpitations. Does have chest heaviness. Respiratory: patient denied any cough is from production. No shortness of breath Neurologic: Patient denied any numbness or tingling headache. Musculoskeletal: Patient denies any complaints of joint swelling or deformity. Skin: Negative Psychiatric: Negative Endocrine: No heat or cold intolerance. No recent weight gain. Genitourinary: No dysuria or hematuria. All other 14 point ROS negative except the above Past Medical History Past Medical History: Coronary Artery Disease (CAD), COPD, CVA/TIA, Diabetes Mellitus, Deep Vein Thrombosis (DVT), Hyperlipidemia, Hypertension, Myocardial Infarction (NC), Pneumonia, Prostate Disorder, Syncope Additional Past Medical History / Comment(s): COPD, diabetes mellitus type 2, BPH, left upper lobe lesion measuring 1.9 x 1.6 cm in size and not showing any metabolic activity, coronary artery disease with previous NC, diabetes mellitus , hypertension, hyperlipidemia, chronic back pain, BPH Last Myocardial Infarction Date:: 05/24/12 History of Any Multi-Drug Resistant Organisms: None Reported Past Surgical History: Back Surgery, Cholecystectomy, Heart Catheterization, Hernia Repair Additional Past Surgical History / Comment(s): 2011 cardiac cath-treated medically, low back surgery, ROBERTO CATARACT SX, abdominal hernia repair, bilateral cataract removal, bronchoscopy. left upper lobe of lung removed 07/2018 Past Anesthesia/Blood Transfusion Reactions: No Reported Reaction Smoking Status: Former smoker - Past Family History Mother Family Medical History: No Reported History Father Family Medical History: Diabetes Mellitus Additional Family Medical History / Comment(s): Father of diabetes at the age of 83 yrs. Medications and Allergies Home Medications Medication Instructions Recorded Confirmed Type Insulin Detemir [Levemir] 72 unit SQ HS 07/09/14 08/31/18 History Isosorbide Mononitrate ER [Imdur] 30 mg PO DAILY 07/09/14 08/31/18 History amLODIPine [Norvasc] 5 mg PO DAILY 07/09/14 08/31/18 History PARoxetine [Paxil] 20 mg PO DAILY 11/15/14 08/31/18 History Ipratropium-Albuterol Nebulize 3 ml INHALATION RT-QID 05/05/18 08/31/18 History [Duoneb 0.5 mg-3 mg/3 ml Soln] Fluticasone/Salmeterol [Advair 1 puff INHALATION RT-DAILY 08/31/18 08/31/18 History 250-50 Diskus] Furosemide [Lasix] 20 mg PO DAILY 08/31/18 08/31/18 History Gabapentin [Neurontin] 300 mg PO BID 08/31/18 08/31/18 History HYDROcodone/APAP 5-325MG [Hudson 1 tab PO Q4HR 08/31/18 08/31/18 History 5-325] Lisinopril [Zestril] 10 mg PO DAILY 08/31/18 08/31/18 History Rivaroxaban [Xarelto] 20 mg PO DAILY 08/31/18 08/31/18 History Allergies Allergy/AdvReac Type Severity Reaction Status Date / Time No Known Allergies Allergy Verified 08/31/18 13:14 Physical Exam Vitals: Vital Signs Temp Pulse Pulse Resp BP BP Pulse Ox 08/31/18 20:00 18 08/31/18 19:49 98.2 F 68 18 146/73 96 08/31/18 19:13 74 08/31/18 19:04 72 08/31/18 16:13 98 08/31/18 16:00 97.7 F 67 18 164/75 96 08/31/18 15:39 68 08/31/18 15:31 69 08/31/18 14:15 98.4 F 68 16 172/82 96 08/31/18 12:30 63 13 171/97 99 08/31/18 12:00 170/88 08/31/18 11:30 63 20 183/96 98 08/31/18 10:30 66 20 175/90 99 08/31/18 10:00 67 19 185/94 99 08/31/18 09:02 97.8 F 76 18 186/87 97 Intake and Output 08/31/18 08/31/18 08/31/18 06:59 14:59 22:59 Other: Voiding Method Toilet Weight 88 kg PHYSICAL EXAMINATION: Patient is lying in the bed comfortably, no acute distress, awake alert and oriented.. HEENT: Normocephalic. Neck is supple. Pupils reactive. Nostrils clear. Oral cavity is moist. Ears reveal no drainage. Neck reveals no JVD, carotid bruits, or thyromegaly. CHEST EXAMINATION: Trachea is central. Symmetrical expansion. Basilar diminished air entry. No wheezing. Nonlabored breathing. CARDIAC: Normal S1, S2 with no gallops. No murmurs ABDOMEN: Soft. Bowel sounds normal. No organomegaly. No abdominal bruits. Extremities: reveal no edema. No clubbing or cyanosis Neurologically awake, alert, oriented x3 with well-coordinated movements. No focal deficits noted Skin: No rash or skin lesions. Psychiatric: Coperative. Nonsuicidal Musculoskeletal: No joint swelling or deformity. Normal range of motion. Results CBC & Chem 7: 08/31/18 10:12 09/01/18 07:17 Labs: Abnormal Lab Results - Last 24 Hours (Table) 08/31/18 08/31/18 08/31/18 Range/Units 10:12 10:12 10:12 RBC 4.19 L (4.30-5.90) m/uL Hgb 12.7 L (13.0-17.5) gm/dL Hct 38.0 L (39.0-53.0) % Lymphocytes # 0.6 L (1.0-4.8) k/uL D-Dimer 0.99 H (<0.60) mg/L FEU BUN 24 H (9-20) mg/dL POC Glucose (mg/dL) (75-99) mg/dL Total Protein 6.2 L (6.3-8.2) g/dL 08/31/18 Range/Units 16:49 RBC (4.30-5.90) m/uL Hgb (13.0-17.5) gm/dL Hct (39.0-53.0) % Lymphocytes # (1.0-4.8) k/uL D-Dimer (<0.60) mg/L FEU BUN (9-20) mg/dL POC Glucose (mg/dL) 199 H (75-99) mg/dL Total Protein (6.3-8.2) g/dL Thrombosis Risk Factor Assmnt - DVT/VTE Prophylaxis DVT/VTE Prophylaxis: Pharmacologic Prophylaxis ordered - Choose All That Apply Any of the Below Risk Factors Present?: No Other Risk Factors: Yes Each Risk Factor Represents 2 Points: Age 61-74 years Thrombosis Risk Factor Assessment Total Risk Factor Score: 2 Thrombosis Risk Factor Assessment Level: Low Risk Assessment and Plan Assessment: Atypical chest pain. Patient has chest heaviness. Rule out acute coronary syndrome. Uncontrolled hypertension. COPD Recent lung cancer status post lobectomy at Right parenchymal lung Nodule. On follow up with pulmonary as an outpatient. Diabetes type 2 insulin-dependent History of DVT. Currently on anticoagulation Diabetic peripheral neuropathy Plan: Patient will be continued on telemetry monitoring. Serial EKGs and troponins. Cardiology was consulted. His symptoms seems to be more from COPD. Continue with the breathing treatments and Symbicort. Further recommendations based on the clinical course. Insulin dosing and continue the home medications and titrate blood pressure medications. Lipid profile will be ordered. Time with Patient: Greater than 30
--- NOTE | 2018-09-01 16:02 | P.PN ---
Subjective Progress Note Date: 09/01/18 Principal diagnosis: Chest pain Patient is a 72-year-old male with a known history of COPD with recent lobectomy at the [facility] due to lung cancer and came to ER with complaints of a funny feeling in the chest and heaviness. Patient is patient denied any complaints of chest pain. Patient denied any prior history of cardiac disease and stent placement. Denied any radiation of the pain. No associated nausea vomiting or headache or dizziness or lightheadedness. No leg swelling. Patient does have a history of COPD, diabetes type 2, DVT, hypertension, hyperlipidemia and history of syncope. Patient follows with pulmonary as an outpatient. EKG showed normal sinus rhythm Chest x-ray showed postsurgical change. New opacity in the left upper lung. Differential considerations include atelectasis, pneumonia and neoplasm. CT chest showed is negative for any pulmonary embolus. Right parenchymal nodule. Likely metastatic. Interval development of left- sided effusion. Troponin 1 negative. D-dimer 0.99 On 09/01/2018 2-D echocardiogram showed ejection fraction fraction 55-60%. Left ventricular size is normal. No evidence of pulmonary hypertension. Cardiology is planning for myocardial perfusion imaging tomorrow. Continue with Norvasc and added metoprolol for better blood pressure control. No fever no chills. No nausea vomiting or abdominal pain. No dizziness or lightheadedness. All other review of systems negative except the above Current medications reviewed Objective - Vital Signs Vital signs: Vital Signs Temp 97.8 F 09/01/18 12:00 Pulse 66 09/01/18 12:00 Resp 18 09/01/18 12:00 BP 156/83 09/01/18 12:00 Pulse Ox 95 09/01/18 12:00 Intake & Output 08/31/18 09/01/18 09/01/18 18:59 06:59 18:59 Weight 88 kg Other: Voiding Method Toilet Toilet # Voids 1 - Exam PHYSICAL EXAMINATION: Patient is lying in the bed comfortably, no acute distress, awake alert and oriented.. HEENT: Normocephalic. Neck is supple. Pupils reactive. Nostrils clear. Oral cavity is moist. Ears reveal no drainage. Neck reveals no JVD, carotid bruits, or thyromegaly. CHEST EXAMINATION: Trachea is central. Symmetrical expansion. Bibasilar diminished air entry. Lung wright clear to auscultation and percussion. CARDIAC: Normal S1, S2 with no gallops. No murmurs ABDOMEN: Soft. Bowel sounds normal. No organomegaly. No abdominal bruits. Extremities: reveal no edema. No clubbing or cyanosis Neurologically awake, alert, oriented x3 with well-coordinated movements. No focal deficits noted Skin: No rash or skin lesions. Psychiatric: Coperative. Nonsuicidal Musculoskeletal: No joint swelling or deformity. Normal range of motion. - Labs CBC & Chem 7: 08/31/18 10:12 09/01/18 07:17 Labs: Abnormal Lab Results - Last 24 Hours (Table) 08/31/18 08/31/18 08/31/18 Range/Units 16:49 20:28 23:06 BUN (9-20) mg/dL Glucose (74-99) mg/dL POC Glucose (mg/dL) 199 H 249 H (75-99) mg/dL Total Creatine Kinase 54 L (55-170) U/L HDL Cholesterol (40-60) mg/dL 09/01/18 09/01/18 09/01/18 Range/Units 06:55 07:17 11:45 BUN 22 H (9-20) mg/dL Glucose 132 H (74-99) mg/dL POC Glucose (mg/dL) 134 H 260 H (75-99) mg/dL Total Creatine Kinase (55-170) U/L HDL Cholesterol 39 L (40-60) mg/dL Assessment and Plan Assessment: Atypical chest pain. Patient has chest heaviness. Ruled out acute coronary syndrome. Uncontrolled hypertension. COPD Recent lung cancer status post lobectomy at [facility] Right parenchymal lung Nodule. On follow up with pulmonary as an outpatient. Diabetes type 2 insulin-dependent History of DVT. Currently on anticoagulation Diabetic peripheral neuropathy Plan: Patient will be continued on telemetry monitoring. Serial EKGs and troponins negative. Cardiology is following. Patient is scheduled for myocardial perfusion imaging tomorrow. Continue with the breathing treatments and Symbicort. Further recommendations based on the clinical course. Insulin dosing and continue the home medications and titrate blood pressure medications. Lipid profile showed LDL 81. Time with Patient: Greater than 30
[2018-09-01 16:47] LABS: Glucose,Whole Blood 363 mg/dL (75-99)
[2018-09-01] MEDS ORDERED: RIVAROXABAN 20 MG TAB PO SCH (17:30)
[2018-09-01 20:19] LABS: Glucose,Whole Blood 239 mg/dL (75-99)
[2018-09-01] MEDS: INSULIN DETEMIR 100 UNIT/ML 10 ML VIAL SQ SCH (20:36)
[2018-09-02] MEDS ORDERED: REGADENOSON 0.4 MG/5 ML SYRINGE IV ONE (06:00)
[2018-09-02] MEDS ORDERED: CAFFEINE CITRATE 60 MG/3 ML VIAL IV PRN (06:00)
[2018-09-02 06:32] LABS: Glucose,Whole Blood 97 mg/dL (75-99)
[2018-09-02] MEDS: IPRATROPIUM-ALBUTEROL 3 ML NEB INHALATION SCH ×4 (07:00→19:46)
[2018-09-02] MEDS: SYMBICORT 80-4.5 MCG INHALER INHALATION SCH ×2 (07:00→19:48)
[2018-09-02] MEDS: INSULIN ASPART 100 UNIT/ML 1 ML 10 ML VIAL SQ SCH ×4 (10:45→21:12)
--- NOTE | 2018-09-02 11:00 | EST ---
EXERCISE STRESS AGE: 72 SEX: M HT: 73" WT: 194 PROTOCOL: Lexiscan Cardiolite Stress Test HEART RATE REST: 63 BLOOD PRESSURE REST: 157/81 MAXIMUM HEART RATE ACHIEVED: 77 MAXIMUM BLOOD PRESSURE: 168/71 85% MPHR: 127 100% MPHR: 149 INDICATIONS: Chest pain. CLINICAL INFORMATION: Baseline EKG shows sinus rhythm, normal axis, normal intervals. Patient was given intravenous Lexiscan as per protocol. Did not have chest pain or diagnostic ST-segment depression. CONCLUSION: 1. Negative stress test by EKG criteria. 2. Cardiolite portion of the stress test will be reported separately. MMODL / IJN: [id number] /
[2018-09-02] MEDS: amLODIPine 5 MG TAB PO SCH (11:08)
[2018-09-02] MEDS: LISINOPRIL 10 MG TAB PO SCH ×2 (11:08→20:10)
[2018-09-02] MEDS: ASPIRIN 81 MG PO SCH (11:08)
[2018-09-02] MEDS: FUROSEMIDE 20 MG TAB PO SCH (11:08)
[2018-09-02] MEDS: METOPROLOL TARTRATE 25 MG TAB PO SCH ×2 (11:08→20:10)
[2018-09-02] MEDS: ATORVASTATIN 40 MG TAB PO SCH (11:08)
[2018-09-02] MEDS: GABAPENTIN 300 MG CAP PO SCH ×2 (11:08→20:10)
--- NOTE | 2018-09-02 11:14 | NM ---
EXAMINATION TYPE: NM stress lexiscan cardiolite DATE OF EXAM: 09/02/2018 COMPARISON: NONE HISTORY: Precordial chest pain and abnormal EKG TECHNIQUE: After the intravenous administration of 10.7 mCi Tc 99m Sestamibi - Cardiolite resting SP ECT images acquired 45 minutes post injection. The patient received 0.4mg Lexiscan, 25.8 mCi Tc 99m Sestamibi - Stress images obtained [address] injection FINDINGS: Review of stress and rest SPECT images demonstrates small focal area of decreased perfusion involving the cardiac apex on stress imaging. Stress-induced ischemia is not excluded. Gated analysis shows no rmal wall motion with an estimated left ventricular ejection fraction of 57 %. IMPRESSION: Small focal area of decreased perfusion involving the cardiac apex on stress imaging. Stress-induced ischemia is not excluded.
[2018-09-02] MEDS: PARoxetine 20 MG TAB PO SCH (11:21)
[2018-09-02 11:57] LABS: Glucose,Whole Blood 65 mg/dL (75-99)
[2018-09-02] MEDS ORDERED: SODIUM CHLORIDE 0.9% 1,000 ML in EMPTY BAG 1 BAG IV ONE (13:10)
[2018-09-02] MEDS ORDERED: ALPRAZolam 0.25 MG TAB PO PRN (13:10)
[2018-09-02] MEDS ORDERED: ALPRAZolam 0.5 MG TAB PO PRN (13:10)
--- NOTE | 2018-09-02 13:11 | P.PN ---
Subjective Mr. Torers is see and examined resting comfortably in bed. Past medical history significant for lung cancer with recent lobectomy, hypertension, dyslipidemia and diabetes mellitus. No documented history of coronary artery disease. Echo obtain on admission reveals preserved LV systolic function with mild MR and mild TR. He did have one episode of discomfort in the left precordial region that traced around under his left breast region. No radiation to the arm, back, neck or jaw. Came while he was sitting down resting in bed last night. No associated shortness of breath, dizziness, palpitations or diaphoresis. Scheduled for stress test today. He underwent Lexiscan stress test which revealed small area of decreased perfusion involving the cardiac apex with normal wall motion, 57%. Currently maintained on amlodipine 5 mg daily, aspirin 81 mg daily, atorvastatin 40 mg daily, lasix 20 mg daily, lisinopril 10 mg BID, lopressor 25 mg BID and xarelto 20 mg daily for history of DVT. Blood pressure 156/77 heart rate 66 afebrile and maintaining oxygen saturation on room air. GENERAL: Well-appearing, well-nourished and in no acute distress. NECK: Supple without JVD or thyromegaly. LUNGS: Breath sounds clear to auscultation bilaterally. Respiration equal and unlabored. No wheezes, rales or rhonchi. HEART: Regular rate and rhythm without murmurs, rubs or gallops. S1 and S2 heard. EXTREMITIES: Normal range of motion, no edema. No clubbing or cyanosis. Peripheral pulses intact. ASSESSMENT Chest pain, atypical. An acute coronary event has been ruled out. Hypertension Diabetes mellitus History of lung cancer History of DVT Former nicotine dependence PLAN Recommend proceeding with cardiac catheterization to further assess for obstructive coronary artery disease. I have discussed the risks, benefits and alternative therapies for the above- mentioned procedure and for both sedation/analgesia as well as necessary blood product administration, if indicated, as they pertain to this patient. The patient has indicated understanding and acceptance of the risks and procedures discussed. Questions have been answered appropriately he is agreeable to move forward with the above-stated procedure. This has been reported tomorrow with Dr. Chacon. He will be nothing by mouth after midnight tonight. Continue to hold Xarelto. Last dose was Sunday night. Further recommendations to follow based upon clinical course. Nurse Practitioner note has been reviewed, I agree with a documented findings and plan of care. Patient was seen and examined. Objective - Vital Signs Vital signs: Vital Signs Temp 97.6 F 09/02/18 07:12 Pulse 72 09/02/18 07:25 Resp 16 09/02/18 07:12 BP 155/78 09/02/18 07:12 Pulse Ox 98 09/02/18 07:12 Intake & Output 09/01/18 09/02/18 09/02/18 18:59 06:59 18:59 Other: Voiding Method Toilet Toilet # Voids 1 2 - Labs CBC & Chem 7: 08/31/18 10:12 09/01/18 07:17 Labs: Abnormal Lab Results - Last 24 Hours (Table) 09/01/18 09/01/18 09/01/18 Range/Units 07:17 11:45 16:43 BUN 22 H (9-20) mg/dL Glucose 132 H (74-99) mg/dL POC Glucose (mg/dL) 260 H 363 H (75-99) mg/dL HDL Cholesterol 39 L (40-60) mg/dL 09/01/18 Range/Units 20:15 BUN (9-20) mg/dL Glucose (74-99) mg/dL POC Glucose (mg/dL) 239 H (75-99) mg/dL HDL Cholesterol (40-60) mg/dL
[2018-09-02 13:17] LABS: Calcium 9.6 mg/dL (8.4-10.2); Potassium 5.2 mmol/L (3.5-5.1)
[2018-09-02 17:09] LABS: Glucose,Whole Blood 225 mg/dL (75-99)
[2018-09-02 20:32] LABS: Glucose,Whole Blood 228 mg/dL (75-99)
[2018-09-02] MEDS: INSULIN DETEMIR 100 UNIT/ML 10 ML VIAL SQ SCH (21:12)
[2018-09-02 22:28] LABS: Hemoglobin A1C 9.9 % (4.0-6.0)
--- NOTE | 2018-09-03 00:02 | P.PN ---
Subjective Progress Note Date: 09/02/18 Principal diagnosis: Chest pain Patient is a 72-year-old male with a known history of COPD with recent lobectomy at the [facility] due to lung cancer and came to ER with complaints of a funny feeling in the chest and heaviness. Patient is patient denied any complaints of chest pain. Patient denied any prior history of cardiac disease and stent placement. Denied any radiation of the pain. No associated nausea vomiting or headache or dizziness or lightheadedness. No leg swelling. Patient does have a history of COPD, diabetes type 2, DVT, hypertension, hyperlipidemia and history of syncope. Patient follows with pulmonary as an outpatient. EKG showed normal sinus rhythm Chest x-ray showed postsurgical change. New opacity in the left upper lung. Differential considerations include atelectasis, pneumonia and neoplasm. CT chest showed is negative for any pulmonary embolus. Right parenchymal nodule. Likely metastatic. Interval development of left- sided effusion. Troponin 1 negative. D-dimer 0.99 On 09/01/2018 2-D echocardiogram showed ejection fraction fraction 55-60%. Left ventricular size is normal. No evidence of pulmonary hypertension. Cardiology is planning for myocardial perfusion imaging tomorrow. Continue with Norvasc and added metoprolol for better blood pressure control. No fever no chills. No nausea vomiting or abdominal pain. No dizziness or lightheadedness. 09/02/2018 Patient denied any complaints of chest pain or shortness of breath today. Patient underwent Lexiscan stress test today. Small focal area of decreased perfusion involving the cardiac apex on stress imaging. Stress induced ischemia is not excluded. Cardiology is planning for cardiac catheterization tomorrow. No fever no chills. No nausea vomiting or abdominal pain.. All other review of systems negative except the above Current medications reviewed Objective - Vital Signs Vital signs: Vital Signs Temp 97.5 F L 09/02/18 11:28 Pulse 80 09/02/18 16:16 Resp 14 09/02/18 16:16 BP 156/77 09/02/18 11:28 Pulse Ox 96 09/02/18 11:28 Intake & Output 09/01/18 09/02/18 09/02/18 18:59 06:59 18:59 Intake Total 100 Balance 100 Intake: Oral 100 Other: Voiding Method Toilet Toilet Toilet # Voids 1 2 2 - Exam PHYSICAL EXAMINATION: Patient is lying in the bed comfortably, no acute distress, awake alert and oriented.. HEENT: Normocephalic. Neck is supple. Pupils reactive. Nostrils clear. Oral cavity is moist. Ears reveal no drainage. Neck reveals no JVD, carotid bruits, or thyromegaly. CHEST EXAMINATION: Trachea is central. Symmetrical expansion. Bibasilar diminished air entry. Lung wright clear to auscultation and percussion. CARDIAC: Normal S1, S2 with no gallops. No murmurs ABDOMEN: Soft. Bowel sounds normal. No organomegaly. No abdominal bruits. Extremities: reveal no edema. No clubbing or cyanosis Neurologically awake, alert, oriented x3 with well-coordinated movements. No focal deficits noted Skin: No rash or skin lesions. Psychiatric: Coperative. Nonsuicidal Musculoskeletal: No joint swelling or deformity. Normal range of motion. - Labs CBC & Chem 7: 08/31/18 10:12 09/02/18 12:37 Labs: Abnormal Lab Results - Last 24 Hours (Table) 09/01/18 09/01/18 09/02/18 Range/Units 16:43 20:15 11:35 Potassium (3.5-5.1) mmol/L BUN (9-20) mg/dL Glucose (74-99) mg/dL POC Glucose (mg/dL) 363 H 239 H 65 L (75-99) mg/dL 09/02/18 Range/Units 12:37 Potassium 5.2 H (3.5-5.1) mmol/L BUN 26 H (9-20) mg/dL Glucose 217 H (74-99) mg/dL POC Glucose (mg/dL) (75-99) mg/dL Assessment and Plan Assessment: Abnormal Lexiscan stress test with apical ischemia Atypical chest pain./ chest heaviness. Ruled out acute coronary syndrome. Uncontrolled hypertension. COPD Recent lung cancer status post lobectomy at [facility] Right parenchymal lung Nodule. On follow up with pulmonary as an outpatient. Diabetes type 2 insulin-dependent uncontrolled with his B A1c 9.9 History of DVT. Currently on anticoagulation Diabetic peripheral neuropathy Plan: Patient will be continued on telemetry monitoring. Serial EKGs and troponins negative. Cardiology is following. Patient has abnormal Lexiscan stress test. Patient is scheduled for cardiac catheterization tomorrow. Continue with the breathing treatments and Symbicort. Continued with Levemir 72 units daily at bedtime and insulin sliding scale. Further recommendations based on the clinical course. Insulin dosing and continue the home medications and titrate blood pressure medications. Lipid profile showed LDL 81. Time with Patient: Greater than 30
[2018-09-03] MEDS ORDERED: ASPIRIN 325 MG TAB PO ONE (06:00)
[2018-09-03] MEDS: METOPROLOL TARTRATE 25 MG TAB PO SCH (06:22)
[2018-09-03] MEDS: amLODIPine 5 MG TAB PO SCH (06:22)
[2018-09-03] MEDS: ATORVASTATIN 40 MG TAB PO SCH (06:22)
[2018-09-03] MEDS: LISINOPRIL 10 MG TAB PO SCH (06:23)
[2018-09-03 07:10] LABS: Glucose,Whole Blood 99 mg/dL (75-99)
[2018-09-03] MEDS: INSULIN ASPART 100 UNIT/ML 1 ML 10 ML VIAL SQ SCH ×2 (07:43→12:03)
[2018-09-03] MEDS: IPRATROPIUM-ALBUTEROL 3 ML NEB INHALATION SCH ×3 (08:23→15:55)
[2018-09-03] MEDS: PARoxetine 20 MG TAB PO SCH (09:10)
[2018-09-03] MEDS: GABAPENTIN 300 MG CAP PO SCH (09:10)
[2018-09-03] MEDS ORDERED: IV FLUID CONTINUATION 900 ML IV ONE (09:55)
[2018-09-03] MEDS ORDERED: VERAPAMIL 2.5 MG/ML 2 ML AMP ONE (10:19)
[2018-09-03] MEDS ORDERED: fentaNYL (PF) 50 MCG/ML 2 ML AMP ONE (10:19)
[2018-09-03] MEDS ORDERED: HEPARIN SODIUM 1,000 UN/ML (10ML VL) ONE (10:21)
[2018-09-03] MEDS ORDERED: fentaNYL (PF) 50 MCG/ML 2 ML AMP IV ONE (10:23)
[2018-09-03] MEDS ORDERED: MIDAZOLAM 2 MG/2 ML VIAL ONE (10:27)
[2018-09-03] MEDS ORDERED: LIDOCAINE 2% SYG (PF) 100 MG/5 ML MISCELLANE ONE (10:28)
[2018-09-03] MEDS ORDERED: MIDAZOLAM 2 MG/2 ML VIAL IV ONE (10:29)
[2018-09-03] MEDS ORDERED: VERAPAMIL SYRINGE (5 MG/10 ML) INTRAARTER ONE (10:29)
[2018-09-03] MEDS ORDERED: HEPARIN SODIUM 1,000 UN/ML (10ML VL) IV ONE (10:43)
[2018-09-03] MEDS ORDERED: NITROGLYCERIN 1000MCG/10ML SYRINGE INTRACORON ONE (10:45)
[2018-09-03] MEDS ORDERED: ADENOSINE 90 MG in SODIUM CHLORIDE 0.9% 60 ML IVP ONE (10:52)
[2018-09-03] MEDS ORDERED: IOPAMIDOL-370 125ML BTL INJ ONE (10:56)
[2018-09-03] MEDS ORDERED: RX INFO: IV CONTRAST WAS GIVEN 1 EACH MISC MISCELLANE PRN (11:05)
[2018-09-03 11:24] VITALS: TEMP 97.5
[2018-09-03] MEDS: FUROSEMIDE 20 MG TAB PO SCH (11:32)
--- NOTE | 2018-09-03 11:37 | CC ---
CARDIAC CATHETERIZATION REPORT Mr. Torres is a 72-year-old male known history of diabetes, history of hypertension, history of COPD as well as history of lung CA, who was admitted to the hospital with symptoms of chest discomfort. His cardiac enzymes and EKG revealed no evidence of acute changes, but he had a myocardial perfusion imaging that revealed evidence of inducible ischemia. In view of that, recommendation regarding cardiac catheterization, the procedures, risks and complication were discussed with the patient who is in full understanding and agreement. 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 Using Xylocaine anesthesia and Seldinger technique, a 6-Ivorian sheath was introduced in the right radial artery. Selective right and left coronary angiography were performed using 5- Ivorian 3.5 bend right Radha catheter and 3.5 left Radha catheter. Images of the coronary artery were performed. Following that, a Doppler flow wire was introduced and fractional flow reserve was calculated in the LAD. Following that, catheters were removed and a 5-Ivorian tight pigtail catheter was introduced in the left ventricle and a 30 degree FIGUEROA view of the left ventricle was obtained. Following that, the catheter and sheaths were removed. Hemostasis was obtained with deployment of a TR band. There was no immediate complication. Patient was returned to her room to his room in stable condition, another picture from next number of note, the patient received 5000 units of intravenous heparin as well as intra-arterial verapamil. FINDINGS: FLUOROSCOPY: There was calcification involving the left anterior descending artery. LEFT MAIN: This is a short-size vessel. bifurcating into left circumflex, left anterior descending artery Left main coronary artery has no evidence of high-grade stenosis/ LEFT ANTERIOR DESCENDING ARTERY: This is a large-sized vessel, reaching toward the apex with a wraparound apex segment, giving rise to a diagonal branch of moderate caliber in mid segment. The diagonal branch has intimal disease of 50%. The LAD proximally is calcified, has an eccentric 50% plaque. The rest of the vessel has no high-grade stenosis. LEFT CIRCUMFLEX: This is a dominant vessel, large in caliber, bifurcating distally into PDA and posterolateral segment branches, giving rise to two obtuse marginal branch. The second obtuse marginal branch is small in caliber and diffusely diseased with area of stenosis up to 70%. The proximal left circumflex has a 40% plaque, the distal PLV has a 50% to 60% stenosis. RIGHT CORONARY ARTERY: This is a nondominant vessel, small in caliber, total occluded mid segment with no antegrade flow. FRACTION FLOW RESERVE: Fraction flow reserve was measured at 95%. LEFT VENTRICULOGRAM: Left ventriculogram was not performed. Left ventricular end-diastolic pressure was 12-16 mmHg. CONCLUSION: 1. Chronic occluded nondominant right coronary artery. 2. Severe diffuse disease in a small second obtuse marginal branch with moderate disease in the proximal and distal left circumflex. 3. Moderate disease in the proximal left anterior descending artery, that is non hemodynamically significant by fractional flow reserve. RECOMMENDATION: In view of finding anatomy, I recommend continue medical therapy with aggressive risk modifications that have been initiated. Those findings and recommendation were discussed with the patient and his family who are in full understanding and agreement. Duration of procedure is 37 minutes. MMODL / IJN: [id number] /
--- NOTE | 2018-09-03 11:46 | LTR ---
DATE OF SERVICE: 09/03/2018 RE: Isrrael Torres Dear Dr. Boyer; I had the pleasure to perform cardiac catheterization on Mr. Torres at [facility] on September 03, 2018 and a full copy of the procedure note will be forwarded to you. In brief, he was found to have a chronic occluded small nondominant right coronary artery with diffuse intimal disease and a small second obtuse marginal branch. The proximal LAD had a moderate lesion that was not hemodynamically significant by fractional flow reserve. In view of that, I have recommend continue medical therapy with aggressive risk modifications being initiated. Thank you again for allowing me to participate in this patient's care. Please feel free to call for any questions. Sincerely yours, MD ROBIN MckeonL / MISSAELN: [id number] /
[2018-09-03 12:09] LABS: Glucose,Whole Blood 64 mg/dL (75-99)
[2018-09-03 12:09] LABS: Glucose,Whole Blood 65 mg/dL (75-99)
[2018-09-03] MEDS ORDERED: DEXTROSE 50%-WATER 50 ML SYRINGE IVP STA (12:17)
[2018-09-03 12:33] LABS: Glucose,Whole Blood 62 mg/dL (75-99)
[2018-09-03 12:37] LABS: Glucose,Whole Blood 100 mg/dL (75-99)
[2018-09-03 13:41] VITALS: BP 145/65
[2018-09-03 14:27] VITALS: BMI 25.6
[2018-09-03 15:56] VITALS: RESP 14
[2018-09-03 16:08] VITALS: PULSE 80
[2018-09-04] MEDS ORDERED: ASPIRIN 81 MG PO SCH (09:00)
[2018-09-04] MEDS ORDERED: ISOSORBIDE MONONITRATE ER 60 MG TAB.ER.24H PO SCH (09:00)
--- NOTE | 2018-09-04 13:07 | CDI ---
Documentation Clarification Form Date: 09/04/2018 12:58:15 PM From: MATILDA Shepard; [facility] Phone: If you have a question about this query, please contact [facility] at [phone] between 8am and 5pm. Admit Date: 09/02/2018 3:43:00 PM Patient Name: Isrrael Torres Visit Number: [id number] Discharge Date: 09/03/2018 ATTENTION: The Clinical Documentation Specialists (CDI) and [facility] Coding Staff appreciate your assistance in clarifying documentation. Please respond to the clarification below the line at the bottom and electronically sign. The CDI & [facility] Coding staff will review the response and follow-up if needed. Please note: Queries are made part of the Legal Health Record. If you have any questions, please contact the author of this message via ITS. Hilary Brian MD The patient has uncontrolled diabetes, as indicated on progress note 09/02/2018. History/Risk Factors: CAD, HTN, COPD, recent lobectomy for CA. Clinical Indicators: Hemoglobin A1c 9.9. Glucose reading ranges from 62 to 363 during admission. In order to capture the severity of Illness and necessary documentation specificity, please clarify: DM Type 2 uncontrolled with hyperglycemia DM Type 2 uncontrolled with hypoglycemia Other, please specify Unable to Determine DM Type 2 uncontrolled with hyperglycemia MTDD
--- NOTE | 2018-09-06 21:17 | P.DS ---
Providers Date of admission: 09/02/18 15:43 Expected date of discharge: 09/03/18 Attending physician: Hilary Vera Consults: 08/31/18 13:36 Consult Physician Urgent Consulting Provider: Ming Zacarias Consult Reason/Comments: cp Do you want consulting provider notified?: Yes Primary care physician: Renzo Merlin [facility] Course: Discharge diagnosis Abnormal Lexiscan stress test with apical ischemia. Status post cardiac catheterization and maximal medical therapy was recommended. Chronic occluded RCA Atypical chest pain./ chest heaviness. Ruled out acute coronary syndrome. Uncontrolled hypertension. COPD Recent lung cancer status post lobectomy at [facility] Right parenchymal lung Nodule. On follow up with pulmonary as an outpatient. Diabetes type 2 insulin-dependent uncontrolled with his B A1c 9.9 History of DVT. Currently on anticoagulation Diabetic peripheral neuropathy Hospital course Patient is a 72-year-old male with a known history of COPD with recent lobectomy at the [facility] due to lung cancer and came to ER with complaints of a funny feeling in the chest and heaviness. Patient is patient denied any complaints of chest pain. Patient denied any prior history of cardiac disease and stent placement. Denied any radiation of the pain. No associated nausea vomiting or headache or dizziness or lightheadedness. No leg swelling. Patient does have a history of COPD, diabetes type 2, DVT, hypertension, hyperlipidemia and history of syncope. Patient follows with pulmonary as an outpatient. EKG showed normal sinus rhythm Chest x-ray showed postsurgical change. New opacity in the left upper lung. Differential considerations include atelectasis, pneumonia and neoplasm. CT chest showed is negative for any pulmonary embolus. Right parenchymal nodule. Likely metastatic. Interval development of left- sided effusion. Troponin 1 negative. D-dimer 0.99 On 09/01/2018 2-D echocardiogram showed ejection fraction fraction 55-60%. Left ventricular size is normal. No evidence of pulmonary hypertension. Cardiology is planning for myocardial perfusion imaging tomorrow. Continue with Norvasc and added metoprolol for better blood pressure control. No fever no chills. No nausea vomiting or abdominal pain. No dizziness or lightheadedness. 09/02/2018 Patient denied any complaints of chest pain or shortness of breath today. Patient underwent Lexiscan stress test today. Small focal area of decreased perfusion involving the cardiac apex on stress imaging. Stress induced ischemia is not excluded. Cardiology is planning for cardiac catheterization tomorrow. 09/03/2018 Patient did improve symptomatically. Cardiac catheterization showed chronic occluded right coronary artery is nondominant. Maximum medical therapy was recommended as per cardiology. Otherwise patient is stable to be discharged home and follow-up as an outpatient. Discharge physical examination was done and vitals reviewed. Patient Condition at Discharge: Good Plan - Discharge Summary Discharge Rx Participant: No New Discharge Prescriptions: New RX: Isosorbide Mononitrate ER [Imdur] 60 mg PO DAILY #30 tab.er.24h RX: Lisinopril [Zestril] 10 mg PO BID #60 tab RX: Aspirin 81 mg PO DAILY #30 chew RX: Atorvastatin [Lipitor] 40 mg PO DAILY #30 tab RX: Metoprolol Tartrate [Lopressor] 25 mg PO BID #60 tab Continue RX: Insulin Detemir [Levemir] 72 unit SQ HS RX: amLODIPine [Norvasc] 5 mg PO DAILY RX: PARoxetine [Paxil] 20 mg PO DAILY RX: Ipratropium-Albuterol Nebulize [Duoneb 0.5 mg-3 mg/3 ml Soln] 3 ml INHALATION RT-QID RX: Rivaroxaban [Xarelto] 20 mg PO DAILY RX: HYDROcodone/APAP 5-325MG [[place] 5-325] 1 tab PO Q4HR RX: Gabapentin [Neurontin] 300 mg PO BID RX: Furosemide [Lasix] 20 mg PO DAILY RX: Fluticasone/Salmeterol [Advair 250-50 Diskus] 1 puff INHALATION RT-DAILY Discontinued RX: Isosorbide Mononitrate ER [Imdur] 30 mg PO DAILY Lisinopril [Zestril] 10 mg PO DAILY Discharge Medication List RX: Insulin Detemir [Levemir] 72 unit SQ HS 07/09/14 [History] RX: amLODIPine [Norvasc] 5 mg PO DAILY 07/09/14 [History] RX: PARoxetine [Paxil] 20 mg PO DAILY 11/15/14 [History] RX: Ipratropium-Albuterol Nebulize [Duoneb 0.5 mg-3 mg/3 ml Soln] 3 ml INHALATION RT-QID 05/05/18 [History] RX: Fluticasone/Salmeterol [Advair 250-50 Diskus] 1 puff INHALATION RT-DAILY [History] RX: Furosemide [Lasix] 20 mg PO DAILY 08/31/18 [History] RX: Gabapentin [Neurontin] 300 mg PO BID 08/31/18 [History] RX: HYDROcodone/APAP 5-325MG [[place] 5-325] 1 tab PO Q4HR 08/31/18 [History] RX: Rivaroxaban [Xarelto] 20 mg PO DAILY 08/31/18 [History] RX: Aspirin 81 mg PO DAILY #30 chew 09/03/18 [Rx] RX: Atorvastatin [Lipitor] 40 mg PO DAILY #30 tab 09/03/18 [Rx] RX: Isosorbide Mononitrate ER [Imdur] 60 mg PO DAILY #30 tab.er.24h 09/03/18 [Rx ] RX: Lisinopril [Zestril] 10 mg PO BID #60 tab 09/03/18 [Rx] RX: Metoprolol Tartrate [Lopressor] 25 mg PO BID #60 tab 09/03/18 [Rx] Follow up Appointment(s)/Referral(s): Renzo Boyer MD [Primary Care Provider] - 1-2 days (Thursday 09/06 at 3:45pm with Nohemi CAMPOS) Carolann Chacon MD [STAFF PHYSICIAN] - 09/12/18 3:30 pm Patient Instructions/Handouts: Left Heart Catheterization (DC), After Radial Heart Catheterization (GEN) Activity/Diet/Wound Care/Special Instructions: Follow right wrist radial care instruction sheet Discharge Disposition: HOME SELF-CARE
== END 2018-09-03 16:47 | disposition home or self-care (01) | DRG 287 ==
LOC: EC 08:55 → 1SOBS 13:36 → OBSVTOIN 09-02 15:43
PROVIDERS: ADMIT Internal Medicine; ATTEND Internal Medicine
PROC: 4A023N7 Measurement of Cardiac Sampling and Pressure, Left Heart, Percutaneous Approach (ICD-10-PCS; principal; 2018-09-03 10:30)
PROC: B2111ZZ Fluoroscopy of Multiple Coronary Arteries using Low Osmolar Contrast (ICD-10-PCS; principal; 2018-09-03 10:30)
DX: I25.10 Atherosclerotic heart disease of native coronary artery without angina pectoris (principal); I25.82 Chronic total occlusion of coronary artery; E11.42 Type 2 diabetes mellitus with diabetic polyneuropathy; E78.5 Hyperlipidemia, unspecified; I10 Essential (primary) hypertension; I25.2 Old myocardial infarction; J44.9 Chronic obstructive pulmonary disease, unspecified; N40.0 Benign prostatic hyperplasia without lower urinary tract symptoms; Z79.01 Long term (current) use of anticoagulants; Z79.4 Long term (current) use of insulin; Z79.82 Long term (current) use of aspirin; Z79.899 Other long term (current) drug therapy; Z83.3 Family history of diabetes mellitus; Z85.118 Personal history of other malignant neoplasm of bronchus and lung; Z86.718 Personal history of other venous thrombosis and embolism; Z86.73 Personal history of transient ischemic attack (TIA), and cerebral infarction without residual deficits; Z87.891 Personal history of nicotine dependence; Z90.2 Acquired absence of lung [part of]; E11.65 Type 2 diabetes mellitus with hyperglycemia
CPT/HCPCS: 36415; 71046; 71275; 78452; 80048; 80053; 80061; 82550; 82553; 83036; 83735; 84484; 85025; 85379; 85610; 85730; 93005; 93017; 93306; 93458; 93571; 94640; 94760; 99285

== ENCOUNTER 2018-10-05 15:15 | Inpatient (IN) | payer MEDICARE, OTHER ==
[2018-10-05] MEDS ORDERED: MECLIZINE 12.5 MG TAB PO STA (15:53)
--- NOTE | 2018-10-05 16:00 | ED ---
Dizziness HPI - General Chief Complaint: Dizziness Stated Complaint: dizziness Time Seen by Provider: 10/05/18 15:40 Source: patient Mode of arrival: ambulatory Limitations: no limitations - History of Present Illness Initial Comments: Patient is a 72-year-old male presenting for lightheadedness that started around 5 PM. He states that he had already been up for some time when the lightheadedness started out of the blue. He states that this is happened before and he is unsure what they eventually diagnosed him with. He states that the lightheadedness is been constant and it was associated with one episode of nausea and vomiting on 9:30 AM. However, he has not had vomiting since then and he states that the lightheadedness has no modifying factors. It is not accompanied by headache, vision changes, hearing changes, chest pain, shortness breath or abdominal pain. He states that he does have a history of COPD, CAD and that he was recently diagnosed with lung cancer and had a partial pneumonectomy on the left side in July with no comp. Factors. He states that he also had chemotherapy a couple weeks ago but did not continue it because he did not like the way it made him feel. - Related Data Home Medications Medication Instructions Recorded Confirmed Insulin Detemir [Levemir] 72 unit SQ HS 07/09/14 08/31/18 amLODIPine [Norvasc] 5 mg PO DAILY 07/09/14 10/05/18 PARoxetine [Paxil] 20 mg PO DAILY 11/15/14 10/05/18 Furosemide [Lasix] 20 mg PO DAILY 08/31/18 10/05/18 Gabapentin [Neurontin] 300 mg PO BID 08/31/18 10/05/18 Rivaroxaban [Xarelto] 20 mg PO DAILY 08/31/18 10/05/18 Ciprofloxacin HCl [Cipro] 500 mg PO Q12HR 10/05/18 10/05/18 Isosorbide Mononitrate ER [Imdur] 30 mg PO DAILY 10/05/18 10/05/18 Lisinopril [Zestril] 10 mg PO DAILY 10/05/18 10/05/18 Previous Rx's Medication Instructions Recorded Aspirin 81 mg PO DAILY #30 chew 09/03/18 Atorvastatin [Lipitor] 40 mg PO DAILY #30 tab 09/03/18 Metoprolol Tartrate [Lopressor] 25 mg PO BID #60 tab 09/03/18 Allergies Allergy/AdvReac Type Severity Reaction Status Date / Time No Known Allergies Allergy Verified 10/05/18 15:19 Review of Systems ROS Statement: Those systems with pertinent positive or pertinent negative responses have been documented in the HPI. Constitutional: Negative for chills, fatigue and fever. HENT: Negative for congestion. Respiratory: Negative for chest tightness, shortness of breath and wheezing. Negative for cough Cardiovascular: Negative for chest pain and palpitations. Gastrointestinal: Negative for abdominal pain. Negative for abdominal distention , diarrhea, positive for nausea and vomiting. Genitourinary: Negative for dysuria. Musculoskeletal: Negative for back pain, neck pain and neck stiffness. Skin: Negative for color change. Neurological: Negative for dizziness, speech difficulty, weakness, headaches, vision changes and positive for light-headedness. Psychiatric/Behavioral: Negative for agitation and confusion. Negative for anxiety ROS Other: All systems not noted in ROS Statement are negative. Past Medical History Past Medical History: Coronary Artery Disease (CAD), COPD, CVA/TIA, Diabetes Mellitus, Deep Vein Thrombosis (DVT), Hyperlipidemia, Hypertension, Myocardial Infarction (HI), Pneumonia, Prostate Disorder, Syncope Additional Past Medical History / Comment(s): COPD, diabetes mellitus type 2, BPH, left upper lobe lesion measuring 1.9 x 1.6 cm in size and not showing any metabolic activity, coronary artery disease with previous HI, diabetes mellitus , hypertension, hyperlipidemia, chronic back pain, BPH Last Myocardial Infarction Date:: 05/24/12 History of Any Multi-Drug Resistant Organisms: None Reported Past Surgical History: Back Surgery, Cholecystectomy, Heart Catheterization, Hernia Repair Additional Past Surgical History / Comment(s): 2011 cardiac cath-treated medically, low back surgery, ROBERTO CATARACT SX, abdominal hernia repair, bilateral cataract removal, bronchoscopy. left upper lobe of lung removed 07/2018 Past Anesthesia/Blood Transfusion Reactions: No Reported Reaction Past Psychological History: Anxiety, Depression Smoking Status: Former smoker Past Alcohol Use History: None Reported Past Drug Use History: None Reported - Past Family History Mother Family Medical History: No Reported History Father Family Medical History: Diabetes Mellitus Additional Family Medical History / Comment(s): Father of diabetes at the age of 83 yrs. General Exam - General Exam Comments Initial Comments: Constitutional: Pt is oriented to person, place, and time. Pt appears well- developed and well-nourished. No distress. HENT: Head: Normocephalic and atraumatic. Eyes: EOM are normal. Rightward beating nystagmus on both eyes present Neck: Normal range of motion. Neck supple. Cardiovascular: Normal rate, regular rhythm, S1 normal, S2 normal and normal heart sounds. Exam reveals no gallop and no friction rub. No murmur heard. Pulmonary/Chest: Effort normal and breath sounds normal. No tachypnea and no bradypnea. No respiratory distress. No wheezes or rales noted. Abdominal: Soft. Bowel sounds are normal. Pt exhibits no shifting dullness, no distension, no pulsatile liver, no fluid wave, no abdominal bruit and no ascites. There is no tenderness. There is no rigidity, no rebound, no guarding, no tenderness at McBurney's point and negative Ulrich's sign. Musculoskeletal: Normal range of motion. Neurological: Pt is alert and oriented to person, place, and time. No cranial nerve deficit. No ataxia on finger to nose or elevation Skin: Skin is warm and dry. No rash noted. Pt is not diaphoretic. No erythema. No pallor. Psychiatric: Pt has a normal mood and affect. Pt behavior is normal. Thought content normal. Limitations: no limitations Course Vital Signs 10/05/18 10/05/18 10/05/18 15:20 16:57 17:00 Temperature 97.5 F L Pulse Rate 84 77 77 Pulse Rate [ Right Sitting] Pulse Rate [ Right Standing] Pulse Rate [ Right Supine] Respiratory 18 18 18 Rate Blood Pressure 162/65 151/82 151/82 Blood Pressure [Right Arm Sitting] Blood Pressure [Right Arm Standing] Blood Pressure [Right Arm Supine] O2 Sat by Pulse 97 100 99 Oximetry 10/05/18 10/05/18 10/05/18 17:30 18:00 18:30 Temperature Pulse Rate 76 78 78 Pulse Rate [ Right Sitting] Pulse Rate [ Right Standing] Pulse Rate [ Right Supine] Respiratory 18 18 18 Rate Blood Pressure 145/73 148/82 138/75 Blood Pressure [Right Arm Sitting] Blood Pressure [Right Arm Standing] Blood Pressure [Right Arm Supine] O2 Sat by Pulse 99 100 97 Oximetry 10/05/18 10/05/18 19:00 19:05 Temperature Pulse Rate 78 Pulse Rate [ 78 Right Sitting] Pulse Rate [ 86 Right Standing] Pulse Rate [ 78 Right Supine] Respiratory 18 18 Rate Blood Pressure 136/78 Blood Pressure 142/72 [Right Arm Sitting] Blood Pressure 128/71 [Right Arm Standing] Blood Pressure 138/69 [Right Arm Supine] O2 Sat by Pulse Oximetry Medical Decision Making - Medical Decision Making Laboratory studies showed that there is no significant leukocytosis and electrolytes are relatively within normal limits. There was evidence of a urinary tract infection therefore the patient was given Rocephin. CTA of the head and neck was also performed and showed no evidence of CVA or large vessel occlusion. However, the patient was continuing to have vertiginous type symptoms and therefore there was still concerned about central cause. Therefore the patient was given aspirin. Patient was also given Antivert which did not significantly improve the symptoms. Because of this, the patient will be admitted to hospital. Explained all labs and diagnostic test results and that we will admit patient to hospital. Pt is agreeable to plan and case has been discussed with mid-level provider and they agree to accept the pt. - Lab Data Result diagrams: 10/05/18 16:52 10/05/18 16:52 Lab Results 10/05/18 10/05/18 10/05/18 Range/Units 16:52 16:52 16:52 WBC 5.6 (3.8-10.6) k/uL RBC 3.65 L (4.30-5.90) m/uL Hgb 11.1 L (13.0-17.5) gm/dL Hct 32.5 L (39.0-53.0) % MCV 89.0 (80.0-100.0) fL MCH 30.3 (25.0-35.0) pg MCHC 34.1 (31.0-37.0) g/dL RDW 12.9 (11.5-15.5) % Plt Count 40 L D (150-450) k/uL Neutrophils % 84 % Lymphocytes % 10 % Monocytes % 4 % Eosinophils % 1 % Basophils % 0 % Neutrophils # 4.7 (1.3-7.7) k/uL Lymphocytes # 0.5 L (1.0-4.8) k/uL Monocytes # 0.3 (0-1.0) k/uL Eosinophils # 0.1 (0-0.7) k/uL Basophils # 0.0 (0-0.2) k/uL Manual Slide Review Performed PT 11.3 (9.0-12.0) sec INR 1.2 H (<1.2) Sodium 137 (137-145) mmol/L Potassium 4.9 (3.5-5.1) mmol/L Chloride 103 (98-107) mmol/L Carbon Dioxide 26 (22-30) mmol/L Anion Gap 8 mmol/L BUN 31 H (9-20) mg/dL Creatinine 1.52 H (0.66-1.25) mg/dL Est GFR (CKD-EPI)AfAm 53 (>60 ml/min/1.73 sqM) Est GFR (CKD-EPI)NonAf 46 (>60 ml/min/1.73 sqM) Glucose 202 H (74-99) mg/dL Calcium 9.2 (8.4-10.2) mg/dL Total Bilirubin 0.5 (0.2-1.3) mg/dL AST 44 (17-59) U/L ALT 44 (21-72) U/L Alkaline Phosphatase 110 (38-126) U/L Troponin I (0.000-0.034) ng/mL NT-Pro-B Natriuret Pep pg/mL Total Protein 6.1 L (6.3-8.2) g/dL Albumin 3.3 L (3.5-5.0) g/dL Lipase 34 (23-300) U/L Urine Color Urine Appearance (Clear) Urine pH (5.0-8.0) Ur Specific [place] (1.001-1.035) Urine Protein (Negative) Urine Glucose (UA) (Negative) Urine Ketones (Negative) Urine Blood (Negative) Urine Nitrite (Negative) Urine Bilirubin (Negative) Urine Urobilinogen (<2.0) mg/dL Ur Leukocyte Esterase (Negative) Urine RBC (0-5) /hpf Urine WBC (0-5) /hpf Ur Squamous Epith Cells (0-4) /hpf Urine Mucus (None) /hpf 10/05/18 10/05/18 10/05/18 Range/Units 16:52 16:52 16:52 WBC (3.8-10.6) k/uL RBC (4.30-5.90) m/uL Hgb (13.0-17.5) gm/dL Hct (39.0-53.0) % MCV (80.0-100.0) fL MCH (25.0-35.0) pg MCHC (31.0-37.0) g/dL RDW (11.5-15.5) % Plt Count (150-450) k/uL Neutrophils % % Lymphocytes % % Monocytes % % Eosinophils % % Basophils % % Neutrophils # (1.3-7.7) k/uL Lymphocytes # (1.0-4.8) k/uL Monocytes # (0-1.0) k/uL Eosinophils # (0-0.7) k/uL Basophils # (0-0.2) k/uL Manual Slide Review PT (9.0-12.0) sec INR (<1.2) Sodium (137-145) mmol/L Potassium (3.5-5.1) mmol/L Chloride (98-107) mmol/L Carbon Dioxide (22-30) mmol/L Anion Gap mmol/L BUN (9-20) mg/dL Creatinine (0.66-1.25) mg/dL Est GFR (CKD-EPI)AfAm (>60 ml/min/1.73 sqM) Est GFR (CKD-EPI)NonAf (>60 ml/min/1.73 sqM) Glucose (74-99) mg/dL Calcium (8.4-10.2) mg/dL Total Bilirubin (0.2-1.3) mg/dL AST (17-59) U/L ALT (21-72) U/L Alkaline Phosphatase (38-126) U/L Troponin I <0.012 (0.000-0.034) ng/mL NT-Pro-B Natriuret Pep 105 pg/mL Total Protein (6.3-8.2) g/dL Albumin (3.5-5.0) g/dL Lipase (23-300) U/L Urine Color Yellow Urine Appearance Cloudy (Clear) Urine pH 5.5 (5.0-8.0) Ur Specific [place] 1.022 (1.001-1.035) Urine Protein 2+ H (Negative) Urine Glucose (UA) 1+ H (Negative) Urine Ketones Negative (Negative) Urine Blood Small H (Negative) Urine Nitrite Negative (Negative) Urine Bilirubin Negative (Negative) Urine Urobilinogen 2.0 (<2.0) mg/dL Ur Leukocyte Esterase Moderate H (Negative) Urine RBC 4 (0-5) /hpf Urine WBC 48 H (0-5) /hpf Ur Squamous Epith Cells 1 (0-4) /hpf Urine Mucus Rare H (None) /hpf Disposition Clinical Impression: Vertigo, UTI (urinary tract infection) Disposition: ADMITTED IP TO THIS [facility] Condition: Fair Referrals: Renzo Boyer MD [Primary Care Provider] - 1-2 days Decision to Admit Reason: Admit from EC Decision Date: 10/05/18 Decision Time: 20:40
[2018-10-05 17:43] LABS: Appearance,Urine Cloudy (Clear); Bilirubin,Urine Negative (Negative); Blood,Urine Small (Negative); Color,Urine Yellow; Glucose,Urine (UA) 1+ (Negative); Ketones,Urine Negative (Negative); Leukocyte Esterase,Urine Moderate (Negative); Mucus,Urine Rare /hpf; Nitrite,Urine Negative (Negative); PH, Urine 5.5 (5.0-8.0); Protein,Urine 2+ (Negative); RBC,Urine 4 /hpf (0-5); Specific Gravity,Urine 1.022 (1.001-1.035); Squamous Epithelial Cell,Urine 1 /hpf (0-4); WBC,Urine 48 /hpf (0-5)
[2018-10-05 17:49] LABS: INR 1.2 (<1.2); Prothrombin Time 11.3 sec (9.0-12.0)
[2018-10-05 17:50] LABS: Albumin 3.3 g/dL (3.5-5.0); Calcium 9.2 mg/dL (8.4-10.2); Potassium 4.9 mmol/L (3.5-5.1); Total Bilirubin 0.5 mg/dL (0.2-1.3); Total Protein 6.1 g/dL (6.3-8.2)
[2018-10-05 17:59] LABS: Basophils % (A) 0 %; Eosinophils # (A) 0.1 k/uL (0-0.7); Eosinophils % (A) 1 %; HCT 32.5 % (39.0-53.0); HGB 11.1 gm/dL (13.0-17.5); Lymphocytes # (A) 0.5 k/uL (1.0-4.8); Lymphocytes % (A) 10 %; MCH 30.3 pg (25.0-35.0); MCHC 34.1 g/dL (31.0-37.0); Mean Platelet Volume 7.7; Monocytes # (A) 0.3 k/uL (0-1.0); Monocytes % (A) 4 %; Neutrophils # (A) 4.7 k/uL (1.3-7.7); Neutrophils % (A) 84 %; RBC 3.65 m/uL (4.30-5.90); RDW 12.9 % (11.5-15.5); WBC 5.6 k/uL (3.8-10.6)
--- NOTE | 2018-10-05 18:01 | XR ---
EXAMINATION TYPE: XR chest 2V DATE OF EXAM: 10/05/2018 COMPARISON: Chest radiograph 08/31/2018 HISTORY: History of lung carcinoma, syncope with chest pain TECHNIQUE: Frontal and lateral views of the chest are obtained. FINDINGS: Left-sided pleural effusion. Spiculated appearing nodular density is seen in the left uppe r lung. Right lung is clear. No pneumothorax. Heart is of normal size. Air-fluid levels are seen abov e the level of the hemidiaphragm most consistent with hiatal hernia. Osseous structures are unremarka ble. IMPRESSION: 1. Small left pleural effusion. 2. Spiculated nodular density in the left upper lung. This appears similar to most recent prior study . 3. Hiatal hernia.
[2018-10-05 18:15] LABS: Platelet Count 40 k/uL (150-450)
--- NOTE | 2018-10-05 19:36 | CT ---
EXAMINATION TYPE: CT angio head neck DATE OF EXAM: 10/05/2018 HISTORY: Lightheadedness. COMPARISON: NONE CT DLP: 413.7 mGycm. Automated Exposure Control for Dose Reduction was Utilized. TECHNIQUE: CTA scan of the neck is performed with IV Contrast, patient injected with 65 mL of Isovue 370, axial images are obtained, coronal and sagittal reformatted images are reviewed. Three-D recons tructed images are created on an independent workstation and reviewed. 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 The great vessel origins are within normal limits without evidence of aneurysm al dilatation or narrowing. The right common carotid artery is within normal limits. There is some ca lcified atheromatous plaquing of the carotid bulb. The origin of the external carotid artery is withi n normal limits. Internal carotid artery courses superiorly next expected course without evidence of aneurysmal dilatation or narrowing. Left common carotid artery is within normal limits. Some minimal atherosclerotic plaquing is seen at the carotid bulb. Origin of the external carotid artery is within normal limits. Internal carotid art cat courses superiorly to its cavernous portion without evidence of aneurysmal dilatation or narrowin g. Vertebral arteries are patent bilaterally. No enlarged cervical lymph nodes. Vertebral arteries join in as the vertebral artery without evidence of aneurysmal dilatation or narro wing. Vertebral arteries are patent. Intracranial vessels demonstrate no evidence of aneurysmal dilat ation or narrowing. The d[place] of [place] is intact. The posterior cerebral arteries are patent bilate rally. No evidence of intracerebral arterial aneurysm. Other: Spiculated nodularity is seen in the left upper lung which is pleural based. IMPRESSION: 1. No evidence of hemodynamically significant narrowing of the carotid or vertebrobasilar system. No evidence of intracranial stenosis or aneurysmal dilatation.
[2018-10-05] MEDS ORDERED: ASPIRIN 81 MG PO STA (20:27)
[2018-10-05] MEDS ORDERED: DIAZEPAM 5 MG TAB PO STA (20:27)
[2018-10-05] MEDS ORDERED: NALOXONE 0.4 MG/ML 1 ML VIAL IV PRN (20:43)
[2018-10-05] MEDS ORDERED: SODIUM CHLORIDE 0.9% 1,000 ML IV SCH (20:45)
[2018-10-05 22:53] LABS: Glucose,Whole Blood 162 mg/dL (75-99)
[2018-10-05] MEDS ORDERED: INSULIN DETEMIR 100 UNIT/ML 10 ML VIAL SQ SCH (23:00)
[2018-10-06] MEDS: SODIUM CHLORIDE 0.9% 1,000 ML IV SCH ×3 (00:47→20:57)
[2018-10-06 07:27] LABS: Glucose,Whole Blood 211 mg/dL (75-99)
[2018-10-06] MEDS: GABAPENTIN 300 MG CAP PO SCH ×2 (07:39→20:56)
[2018-10-06] MEDS: amLODIPine 5 MG TAB PO SCH (07:39)
[2018-10-06] MEDS: METOPROLOL TARTRATE 25 MG TAB PO SCH ×2 (07:39→20:55)
[2018-10-06] MEDS: INSULIN ASPART 100 UNIT/ML 1 ML 10 ML VIAL SQ SCH ×4 (07:40→20:56)
[2018-10-06] MEDS ORDERED: FAMOTIDINE 20 MG TAB PO SCH (09:00)
[2018-10-06] MEDS ORDERED: HEPARIN SODIUM,PORCINE 5,000 UNIT/ML 1 ML VIAL SQ SCH (09:00)
[2018-10-06] MEDS ORDERED: HYDROcodone/APAP 5-325MG 1 EACH TAB PO PRN (10:38)
[2018-10-06] MEDS ORDERED: TEMAZEPAM 15 MG CAP PO PRN (10:38)
[2018-10-06] MEDS ORDERED: ALPRAZolam 0.25 MG TAB PO PRN (10:38)
[2018-10-06] MEDS ORDERED: ACETAMINOPHEN TAB 500 MG TAB PO PRN (10:38)
[2018-10-06 12:46] LABS: Glucose,Whole Blood 90 mg/dL (75-99)
[2018-10-06 17:18] LABS: Glucose,Whole Blood 195 mg/dL (75-99)
--- NOTE | 2018-10-06 18:45 | HP ---
HISTORY AND PHYSICAL CHIEF COMPLAINT: Dizziness. HISTORY OF PRESENT ILLNESS: This 72-year-old gentleman with a past medical history of multiple problems including CAD, COPD, CVA, TIA, diabetes, DVT, history of hypertension, previous myocardial infarction, history of pneumonia, history of back surgery, cholecystitis, anxiety, depression being for Dr. Boyer in the outpatient setting was complaining of dizziness and lightheadedness that started around 5:00 p.m. yesterday. The patient reports that the dizziness started out of the blue and the patient also had some difficulty walking and the patient came to [facility] and admitted for evaluation. The patient also has nausea and vomiting also. The creatinine is 11.52 and hemoglobin 11.1. UA shows evidence of UTI. Initial CT scan of the brain and initially the CT angio of the brain showed no evidence of tumor or significant narrowing of the carotid and vertebral arteries. No advanced stenosis also noted. There is no history of fever, rigors. No headache, loss of consciousness or seizures at this time. PAST MEDICAL HISTORY: History of COPD, CVA, TIA, history of diabetes, DVT, hypertension, hyperlipidemia, history of myocardial infarction, history of pneumonia, history of CAD. MEDICATIONS: Prior to admission include home medications are: 1. Norvasc 5 mg b.i.d. 2. Xarelto 20 mg daily. 3. Paxil 20 mg p.o. daily. 4. Lopressor 25 mg b.i.d. 5. Zestril 10 mg daily. 6. Imdur 30 mg p.o. daily. 7. Neurontin 300 mg p.o. b.i.d. 8. Lasix 10 mg b.i.d. 9. Cipro 500 mg p.o. b.i.d. 10.Lipitor 40 mg p.o. daily. 11.Aspirin 81 mg p.o. daily. 12.Levemir 72 units subcu q.h.s. ALLERGIES: None. FAMILY HISTORY: History of diabetes in the family. SOCIAL HISTORY: History of smoking. No history of current smoking or alcohol intake. REVIEW OF SYSTEMS: ENT: No diminished hearing or vision. Otherwise as mentioned earlier. CARDIOVASCULAR: No angina. RESPIRATORY: As mentioned. GI: No nausea. : No dysuria. NERVOUS SYSTEM: As mentioned. ALLERGY/IMMUNOLOGY: No asthma. MUSCULOSKELETAL: As mentioned earlier. HEMATOLOGY: No history of anemia. ENDOCRINE: History of diabetes. No hypothyroidism. CONSTITUTIONAL: As mentioned earlier. DERMATOLOGY: Negative. RHEUMATOLOGY: Negative. PSYCHIATRY: As mentioned earlier. PHYSICAL EXAMINATION: Alert and oriented x3. The pulse is 72, blood pressure 143/69, respiration 18, temperature 97.8, pulse ox 99% on room air. HEENT: Conjunctivae normal. Oral mucosa moist. Neck is no jugular venous distention. No carotid bruit. No lymph node enlargement. CARDIOVASCULAR: S1, S2. RESPIRATORY: Breath sounds diminished in the bases. A few scattered rhonchi and crackles. ABDOMEN: Soft, nontender. No mass palpable. LEGS: No edema, no swelling. NERVOUS SYSTEM: Higher functions as mentioned earlier. No nystagmus. Otherwise, minimal incoordination both bilateral present. No weakness. Reflexes normal. No sensory abnormalities. JOINTS: No active deforming arthropathy. SKIN: No ulcer, rash or bleeding. LYMPHATICS: No lymphadenopathy in the neck, axillae, groin. LABS: At this time show WBC 12.2, hemoglobin 11.1, platelets of 40. INR 1.2 and glucose 202. ASSESSMENT: 1. Possible acute transient ischemic attack or acute stroke. 2. Urinary tract infection. 3. Increased creatinine with chronic kidney stage III. 4. Thrombocytopenia. 5. Anemia of chronic disease. 6. History of coronary artery disease. 7. Chronic obstructive pulmonary disease. 8. History of cerebrovascular accident, transient ischemic attack. 9. Diabetes mellitus. 10.History of DVT. 11.History of hypertension. 12.History of hyperlipidemia. 13.History of myocardial infarction. 14.History of pneumonia. 15.History of prostate disorder. 16.History of syncope. 17.History of back surgery. 18.History of cholecystitis. 19.Anxiety and depression. RECOMMENDATIONS AND DISCUSSION: This 72-year-old gentleman who presented with multiple complex medical issues, at this time I recommend to continue current management and symptomatic treatment. Otherwise at this time I recommend antiplatelet agents, Lipitor, neuro checks, neurovascular workup. Neurology evaluation. The prognosis guarded. The MRI of the brain has been noted. The prognosis is guarded because of multiple complex medical issues. Further recommendations to follow. I would also recommend to repeat CT scan of the brain also. See orders for details. Resume the home medications. DVT prophylaxis. Prognosis guarded because of multiple complex medical issues. Further recommendations to follow. A copy of dictation forwarded to Dr. Boyer who is the primary physician. Patient is already on Xarelto. MMODL / IJN: [id number] / [email or web address]
--- NOTE | 2018-10-06 18:47 | P.CNNES ---
History of Present Illness Consult date: 10/06/18 History of Present Illness: The patient 72-year-old right-handed white male who states that last night he came to the emergency room because saw he developed a sense of lightheadedness. 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 He then had a family member drive him to the ER. He states he had a similar episode a few months ago for which he was admitted to the hospital. He denied any vertigo or double vision. He denied any focal weakness numbness or speech disturbance. He states that episode lasted all day where he felt lightheaded as if he was going to pass out. He states he also appeared pale yesterday. There is no falls. He had a CTA in the emergency room which did not show any significant stenosis. Review of Systems Constitutional: Denies chills, Denies fever Eyes: denies blurred vision, denies pain Ears, nose, mouth and throat: Denies headache, Denies sore throat Cardiovascular: Denies chest pain, Denies shortness of breath Respiratory: Denies cough Musculoskeletal: Denies myalgias Integumentary: Denies pruritus, Denies rash Neurological: Denies numbness, Denies weakness Psychiatric: Denies anxiety, Denies depression Endocrine: Reports as per HPI Past Medical History Past Medical History: Coronary Artery Disease (CAD), COPD, CVA/TIA, Diabetes Mellitus, Deep Vein Thrombosis (DVT), Hyperlipidemia, Hypertension, Myocardial Infarction (UT), Pneumonia, Prostate Disorder, Syncope Additional Past Medical History / Comment(s): COPD, diabetes mellitus type 2, BPH, left upper lobe lesion measuring 1.9 x 1.6 cm in size and not showing any metabolic activity, coronary artery disease with previous UT, diabetes mellitus , hypertension, hyperlipidemia, chronic back pain, BPH Last Myocardial Infarction Date:: 05/24/12 History of Any Multi-Drug Resistant Organisms: None Reported Past Surgical History: Back Surgery, Cholecystectomy, Heart Catheterization, Hernia Repair Additional Past Surgical History / Comment(s): 2011 cardiac cath-treated medically, low back surgery, ROBERTO CATARACT SX, abdominal hernia repair, bilateral cataract removal, bronchoscopy. left upper lobe of lung removed 07/2018 Past Anesthesia/Blood Transfusion Reactions: No Reported Reaction Past Psychological History: Anxiety, Depression Additional Psychological History / Comment(s): PAtient lives with son. 05/05/18: Pt. denies anxiety at this time Smoking Status: Former smoker Past Alcohol Use History: None Reported Additional Past Alcohol Use History / Comment(s): Pt started smoking in 1960 and quit in 1995. He was a 2ppd smoker. Past Drug Use History: None Reported - Past Family History Mother Family Medical History: No Reported History Father Family Medical History: Diabetes Mellitus Additional Family Medical History / Comment(s): Father of diabetes at the age of 83 yrs. Medications and Allergies Home Medications Medication Instructions Recorded Confirmed Type Insulin Detemir [Levemir] 72 unit SQ HS 07/09/14 08/31/18 History amLODIPine [Norvasc] 5 mg PO DAILY 07/09/14 10/05/18 History PARoxetine [Paxil] 20 mg PO DAILY 11/15/14 10/05/18 History Furosemide [Lasix] 20 mg PO DAILY 08/31/18 10/05/18 History Gabapentin [Neurontin] 300 mg PO BID 08/31/18 10/05/18 History Rivaroxaban [Xarelto] 20 mg PO DAILY 08/31/18 10/05/18 History Aspirin 81 mg PO DAILY #30 chew 09/03/18 10/05/18 Rx Atorvastatin [Lipitor] 40 mg PO DAILY #30 tab 09/03/18 10/05/18 Rx Metoprolol Tartrate [Lopressor] 25 mg PO BID #60 tab 09/03/18 10/05/18 Rx Ciprofloxacin HCl [Cipro] 500 mg PO Q12HR 10/05/18 10/05/18 History Isosorbide Mononitrate ER [Imdur] 30 mg PO DAILY 10/05/18 10/05/18 History Lisinopril [Zestril] 10 mg PO DAILY 10/05/18 10/05/18 History Allergies Allergy/AdvReac Type Severity Reaction Status Date / Time No Known Allergies Allergy Verified 10/05/18 15:19 Physical Examination - Vital Signs Vital Signs: Vital Signs Temp Pulse Pulse Pulse Pulse Pulse Resp 10/06/18 14:27 97.8 F 72 18 10/06/18 07:38 77 10/06/18 04:45 10/06/18 04:40 10/06/18 04:35 98.3 F 80 16 10/05/18 23:00 97.5 F L 75 16 10/05/18 22:00 98.1 F 76 20 10/05/18 20:00 78 18 10/05/18 19:05 78 86 78 18 10/05/18 19:00 78 18 BP BP BP BP BP Pulse Ox 10/06/18 14:27 143/69 99 10/06/18 07:38 99 10/06/18 04:45 149/72 87 L 10/06/18 04:40 145/72 84 L 10/06/18 04:35 146/67 95 10/05/18 23:00 151/73 97 10/05/18 22:00 135/73 97 10/05/18 20:00 145/70 99 10/05/18 19:05 142/72 128/71 138/69 10/05/18 19:00 136/78 Intake and Output 10/06/18 10/06/18 10/06/18 06:59 14:59 22:59 Intake Total 1100 Balance 1100 Intake: Intake, IV Titration 700 Amount Sodium Chloride 0.9% 1, 700 000 ml @ 100 mls/hr IV . Q10H [facility] Rx#:[id number] Oral 400 Other: Voiding Method Toilet Toilet Urinal Urinal # Voids 2 4 # Bowel Movements 0 Weight 84 kg - Constitutional General appearance: average body habitus - EENT EENT: PERRL - Respiratory Respiratory: lungs clear - Cardiovascular Cardiovascular: regular rate, normal S1, normal S2 - Integumentary Integumentary: normal - Neurologic Logic examination: Mental status: He was awake alert and oriented 3. His speech was fluent. There was no a aphasia or dysarthria. Cranial nerve examination: Cranial nerves II through XII grossly intact next Motor examination: 5 out of 5 throughout Sensory examination: Intact to light touch next Deep tendon reflexes: Trace bilaterally symmetric next Gait: Normal based Results - Laboratory Findings CBC and BMP: 10/05/18 16:52 10/05/18 16:52 Abnormal Lab Findings: Abnormal Labs 10/05/18 10/05/18 12 16:52 16:52 16:52 RBC 3.65 L Hgb 11.1 L Hct 32.5 L Plt Count 40 L D Lymphocytes # 0.5 L INR 1.2 H BUN 31 H Creatinine 1.52 H Glucose 202 H POC Glucose (mg/dL) Total Protein 6.1 L Albumin 3.3 L Urine Protein Urine Glucose (UA) Urine Blood Ur Leukocyte Esterase Urine WBC Urine Mucus 10/05/18 10/05/18 10/06/18 16:52 22:44 07:26 RBC Hgb Hct Plt Count Lymphocytes # INR BUN Creatinine Glucose POC Glucose (mg/dL) 162 H 211 H Total Protein Albumin Urine Protein 2+ H Urine Glucose (UA) 1+ H Urine Blood Small H Ur Leukocyte Esterase Moderate H Urine WBC 48 H Urine Mucus Rare H 10/06/18 17:16 RBC Hgb Hct Plt Count Lymphocytes # INR BUN Creatinine Glucose POC Glucose (mg/dL) 195 H Total Protein Albumin Urine Protein Urine Glucose (UA) Urine Blood Ur Leukocyte Esterase Urine WBC Urine Mucus Assessment and Plan (1) Pre-syncope Current Visit: Yes Status: Acute SNOMED Code(s): 343286676 Plan: The patient is a 72-year-old man who presents to the hospital with history of lightheadedness and presyncopal symptoms which lasted for about 24 hours yesterday. He is back to his usual health today. Neurologic examination is nonfocal. He has had a CT angiogram which did not show any significant stenosis. Recommended echocardiogram and cardiac evaluation. MRI of the brain has been ordered. Will also have an echocardiogram. The patient is on Xarelto. Recommend to EEG.
[2018-10-06 20:10] LABS: Glucose,Whole Blood 156 mg/dL (75-99)
[2018-10-07 07:02] LABS: Glucose,Whole Blood 112 mg/dL (75-99)
[2018-10-07] MEDS: INSULIN ASPART 100 UNIT/ML 1 ML 10 ML VIAL SQ SCH ×4 (08:12→21:25)
[2018-10-07] MEDS: amLODIPine 5 MG TAB PO SCH (08:15)
[2018-10-07] MEDS: METOPROLOL TARTRATE 25 MG TAB PO SCH ×2 (08:15→21:25)
[2018-10-07] MEDS: PANTOPRAZOLE 40 MG TABLET PO SCH (08:15)
[2018-10-07] MEDS: GABAPENTIN 300 MG CAP PO SCH ×2 (08:15→21:25)
[2018-10-07] MEDS: ASPIRIN 81 MG PO SCH (08:15)
[2018-10-07] MEDS: LISINOPRIL 10 MG TAB PO SCH (08:15)
[2018-10-07] MEDS: ATORVASTATIN 40 MG TAB PO SCH (08:15)
[2018-10-07] MEDS: ISOSORBIDE MONONITRATE ER 30 MG TAB.ER.24H PO SCH (08:15)
[2018-10-07] MEDS: RIVAROXABAN 20 MG TAB PO SCH (08:16)
[2018-10-07] MEDS: PARoxetine 20 MG TAB PO SCH (08:16)
[2018-10-07] MEDS: FUROSEMIDE 20 MG TAB PO SCH (08:16)
[2018-10-07 10:23] LABS: Basophils % (A) 0 %; Eosinophils # (A) 0.1 k/uL (0-0.7); Eosinophils % (A) 3 %; HCT 31.3 % (39.0-53.0); HGB 10.4 gm/dL (13.0-17.5); Lymphocytes # (A) 0.4 k/uL (1.0-4.8); Lymphocytes % (A) 20 %; MCH 29.3 pg (25.0-35.0); MCHC 33.1 g/dL (31.0-37.0); MCV 88.6 fL (80.0-100.0); Mean Platelet Volume 7.9; Monocytes # (A) 0.2 k/uL (0-1.0); Monocytes % (A) 8 %; Neutrophils # (A) 1.5 k/uL (1.3-7.7); Neutrophils % (A) 67 %; RBC 3.53 m/uL (4.30-5.90); WBC 2.2 k/uL (3.8-10.6)
[2018-10-07 10:28] LABS: Platelet Count 60 k/uL (150-450)
[2018-10-07 10:48] LABS: Calcium 9.3 mg/dL (8.4-10.2); Potassium 5.2 mmol/L (3.5-5.1)
[2018-10-07] MEDS: SODIUM CHLORIDE 0.9% 1,000 ML IV SCH (10:49)
[2018-10-07 11:04] LABS: Hemoglobin A1C 10.9 % (4.0-6.0)
--- NOTE | 2018-10-07 11:07 | MR ---
MR brain without contrast HISTORY: Vertigo, lightheadedness, rule out TIA Multiplanar multisequence imaging through the brain. Correlation to CTA brain 10/05/2018 Periventricular white matter shows confluent and scattered hyperintensities on inversion recovery T2- weighted sequences with additional foci scattered subcortical, juxtacortical, pericallosal and deep w zoraida matter. There are approximately 40-50 lesions. No hemorrhage or hydrocephalus. There is no restr icted diffusion to suggest subacute ischemia. Cortical atrophy is likely age-related. The corpus call osum, pituitary, cervical medullary junction, cerebellopontine angles are normal. Inflammatory change present in the left maxillary sinus, ethmoid air cells. The orbits show symmetric appearance. There are normal vascular flow voids. IMPRESSION: Age-related atrophy and probable chronic small vessel ischemia. No evidence of acute isch emia.
[2018-10-07 11:34] LABS: Glucose,Whole Blood 185 mg/dL (75-99)
[2018-10-07 14:28] VITALS: BMI 24.4
[2018-10-07 17:10] LABS: Glucose,Whole Blood 284 mg/dL (75-99)
[2018-10-07 20:25] LABS: Glucose,Whole Blood 267 mg/dL (75-99)
--- NOTE | 2018-10-07 21:40 | PN ---
PROGRESS NOTE DATE OF SERVICE: 10/07/2018 This 72-year-old gentleman who was admitted with acute transient ischemic attack and acute stroke, also had orthostatic hypotension. No chest pain. No palpitations. No fever. An MRI was done today which showed no acute abnormality and EEG is pending at this time. The CT angiography of the head showed no evidence of hemodynamically significant stenosis. The patient is only slightly orthostatic at this time. No chest pain. No palpitations. No fever. EXAM: Alert and oriented x3. Pulse 78, blood pressure 140/70, respiration 20, temperature 97.9, pulse ox 94% on room air. HEENT: Conjunctivae normal. Neck: No jugular venous distention. Cardiovascular: S1, S2 muffled. Respirations: Breath sounds diminished in the bases. A few scattered rhonchi. No crackles. ABDOMEN: Soft, nontender. Legs are no edema. No swelling. Nervous system: No focal deficits. LAB STUDIES: WBC 2.9, hemoglobin 10.4, platelets 60. ASSESSMENT: 1. Possible acute transient ischemic attack involving the right hemisphere, caused by left-sided lesions. 2. Left-sided signs. 3. Urinary tract infection present on admission. 4. Mild pancytopenia. 5. Increased creatinine with chronic kidney stage III. 6. Thrombocytopenia. 7. Orthostatic hypotension. 8. Anemia of chronic disease. 9. History of coronary artery disease. 10.History of chronic obstructive pulmonary disease. 11.History of cerebrovascular accident, transient ischemic attack. 12.Diabetes type 2. 13.History of deep vein thrombosis. 14.History of hypertension. 15.Hyperlipidemia. 16.History of myocardial infarction. 17.History of pneumonia. 18.History of prostate disorder. 19.History of syncope. 20.History of back surgery. 21.History of cholecystectomy. 22.Anxiety/depression. 23.Left upper lobe lesion 1.9 to 1.6 cm not showing metabolic activity. RECOMMENDATIONS AND DISCUSSION: Recommend to continue current medications, management and symptomatic treatment. Otherwise at this time, continue orthostatic vitals. Continue to follow and await the EEG report. We will continue to monitor. Follow closely with Dr. Boyer. Follow with Pulmonary and as well as neurology. Guarded prognosis. Further recommendations to follow. MMODL / IJN: [id number] /
[2018-10-07] MEDS ORDERED: ALBUTEROL NEBULIZED 7.5 MG, SODIUM CHLORIDE 0.9% NEBULIZ 12 ML INHALATION ONE ×2 (21:41)
--- NOTE | 2018-10-07 22:49 | EEG ---
ELECTROENCEPHALOGRAM REPORT DATE OF EE10/07/2018. REFERRING PHYSICIAN: Dr. Bruno. CONSULTING/INTERPRETING PHYSICIAN: Dr. Shaji Kenyon MD ELECTROENCEPHALOGRAPHIC EXAMINATION REPORT: INDICATION FOR EXAMINATION: This patient is a 72-year-old male being evaluated for episode of near-syncope and lightheadedness. AGE: [age]. EEG FINDINGS: A routine 21 channel awake digital EEG recording was accomplished utilizing the 10-20 international system with bipolar and referential montages. The background activity in the most alert resting state consists of a low to medium amplitude, fairly well- developed and well sustained 7-8 Hz activity over the posterior head regions. This posterior rhythm attenuates to eye opening. There is a small amount of low amplitude 18-20 Hz beta activity seen maximally over the anterior head regions. Muscle and movement artifact was observed on a few occasions during the tracing. Hyperventilation was not performed. Photic stimulation at flash frequencies of 2-30 Hz produced a minimal occipital driving response. No epileptiform discharges were seen. IMPRESSION: This EEG is within normal limits for the patient's age. The EEG failed to reveal any focal, lateralized, or epileptiform abnormalities. Clinical correlation is recommended. MMODL / IJN: [id number] /
[2018-10-08] MEDS: SODIUM CHLORIDE 0.9% 1,000 ML IV SCH (00:47)
[2018-10-08] MEDS ORDERED: IPRATROPIUM-ALBUTEROL 3 ML NEB ONE (02:58)
[2018-10-08] MEDS: IPRATROPIUM-ALBUTEROL 3 ML NEB INHALATION PRN ×2 (02:59→15:36)
[2018-10-08 06:57] LABS: Glucose,Whole Blood 313 mg/dL (75-99)
[2018-10-08] MEDS: IPRATROPIUM-ALBUTEROL 3 ML NEB INHALATION SCH ×2 (07:46→11:23)
[2018-10-08] MEDS: INSULIN ASPART 100 UNIT/ML 1 ML 10 ML VIAL SQ SCH ×2 (08:28→13:06)
[2018-10-08] MEDS: amLODIPine 5 MG TAB PO SCH (08:29)
[2018-10-08] MEDS: ATORVASTATIN 40 MG TAB PO SCH (08:29)
[2018-10-08] MEDS: FUROSEMIDE 20 MG TAB PO SCH (08:29)
[2018-10-08] MEDS: PARoxetine 20 MG TAB PO SCH (08:29)
[2018-10-08] MEDS: RIVAROXABAN 20 MG TAB PO SCH (08:29)
[2018-10-08] MEDS: ASPIRIN 81 MG PO SCH (08:30)
[2018-10-08] MEDS: ISOSORBIDE MONONITRATE ER 30 MG TAB.ER.24H PO SCH (08:30)
[2018-10-08] MEDS: GABAPENTIN 300 MG CAP PO SCH (08:30)
[2018-10-08] MEDS: METOPROLOL TARTRATE 25 MG TAB PO SCH (08:30)
[2018-10-08] MEDS: LISINOPRIL 10 MG TAB PO SCH (08:30)
[2018-10-08] MEDS: PANTOPRAZOLE 40 MG TABLET PO SCH (08:30)
[2018-10-08 08:48] LABS: Basophils % (A) 0 %; Eosinophils # (A) 0.1 k/uL (0-0.7); Eosinophils % (A) 3 %; HCT 30.4 % (39.0-53.0); HGB 10.4 gm/dL (13.0-17.5); Lymphocytes # (A) 0.5 k/uL (1.0-4.8); Lymphocytes % (A) 26 %; MCH 30.2 pg (25.0-35.0); MCHC 34.1 g/dL (31.0-37.0); MCV 88.7 fL (80.0-100.0); Mean Platelet Volume 8.1; Monocytes # (A) 0.2 k/uL (0-1.0); Monocytes % (A) 8 %; Neutrophils # (A) 1.2 k/uL (1.3-7.7); Neutrophils % (A) 59 %; RBC 3.43 m/uL (4.30-5.90)
[2018-10-08 09:05] LABS: Calcium 9.4 mg/dL (8.4-10.2); Potassium 5.2 mmol/L (3.5-5.1)
[2018-10-08 09:08] LABS: Platelet Count 65 k/uL (150-450)
[2018-10-08 11:38] LABS: Glucose,Whole Blood 356 mg/dL (75-99)
[2018-10-08 12:30] VITALS: BP 134/68; RESP 16; TEMP 97.6
[2018-10-08 15:47] VITALS: PULSE 68
--- NOTE | 2018-10-09 09:10 | DS ---
DISCHARGE SUMMARY DATE OF SERVICE: 10/08/2018 FINAL DIAGNOSES: 1. Possible acute transient ischemic attack involving the right hemisphere, possible left hemispheric lesion. 2. Urinary tract infection present on admission. 3. Pancytopenia. 4. Increased creatinine with chronic kidney stage III. 5. Thrombocytopenia. 6. Orthostatic hypotension, improved. 7. Anemia of chronic disease. 8. History of coronary artery disease. 9. History of chronic obstructive pulmonary disease. 10.History of cerebrovascular accident, transient ischemic attack. 11.Diabetes type 2. 12.History of deep vein thrombosis. 13.History of hypertension. 14.History of hyperlipidemia. 15.History of myocardial infarction. 16.History pneumonia. 17.History of prostate disease. 18.History of syncope. 19.History of back surgery. 20.History of cholecystectomy. 21.History of anxiety, depression. 22.Left upper lobe lesion 1.9-1.6 cm, not showing any metabolic activity. DISCHARGE ADVICE AND MEDICATIONS: The patient will be discharged in stable condition with guarded prognosis. HISTORY OF PRESENT ILLNESS: This 72-year-old gentleman with past medical history of multiple medical problems was admitted with acute features acute TIA. Neurovascular workup was done which was rather negative and the patient improved significantly. Neurology saw the patient. Recommended outpatient followup. On exam, vital signs stable. Cardiovascular S1, S2. Abdomen soft. Nervous system: No focal deficits. The patient being discharged in a stable condition with guarded prognosis with the following advice and medications: 1. Diet is cardiac diet. 2. Activity limited until followup. 3. Follow up with Dr. Boyer in 2-3 days. 4. Otherwise follow up with Dr. Kenyon as advised. DISCHARGE MEDICATIONS: 1. Norvasc 5 mg p.o. daily. 2. Lasix 20 mg daily. 3. Neurontin 300 mg p.o. b.i.d. 4. Insulin Levemir 60 units subcu q.h.s. 5. Imdur 30 mg daily. 6. Zestril 10 mg. 7. Paxil 20 mg daily. 8. Xarelto 20 mg p.o. daily. 9. Tylenol p.r.n. 10.Aspirin 81 mg p.o. daily. 11.Lipitor 40 mg daily. 12.Lopressor 25 mg p.o. b.i.d. Once again, the patient is being discharged in stable condition with guarded prognosis. MMODL / IJN: [id number] /
--- NOTE | 2018-10-11 14:50 | CDI ---
Last Revision, October 2017 Documentation Clarification Form Date: 10/11/18 From: Amberly Isaac Christi Fritz, [employer] Science Taxonomist Hours-8:30 am & 5 pm Benji Admit Date: 10/07/2018 6:12:00 PM Patient Name: Isrrael Torres Visit Number: [id number] Discharge Date: 10/08/18 ATTENTION: The Clinical Documentation Specialists (CDI) and [facility] Coding Staff appreciate your assistance in clarifying documentation. Please respond to the clarification below the line at the bottom and electronically sign. The CDI & [facility] Coding staff will review the response and follow-up if needed. Please note: Queries are made part of the Legal Health Record. If you have any questions, please contact the author of this message via ITS. Dr. Lawson Kent Possible acute TIA involving the right hemisphere, caused by left sided lesions is documented as a diagnosis in the 10/07 PN. Patient history/risk factors: DM w CKD, CKD stage 3, HTN, COPD, anemia, Clinical indicators: CT head: There are apporximately 40-50 lesions. Age related atrophy and probable chronic small vessel ischemia, no evidence of acute ischemia. Carotid US: No evidence of hemodynamically significant narrowing or the carotid or vertebrobasilar system. No evidence of intracranial stenosis or aneurysmal dilatation. Treatment: current meds, management and symptomatic treatment Consult: neuro In your professional opinion, please specify underlying etiology of the transient ischemic attack: TIA, unspecified TIA due to left hemispheriic lesions Other (please specify): Etiology unknown or Unable to determine Please continue to document in your progress notes and discharge summary in order to capture severity of illness and risk of mortality. Include clinical findings that support your diagnosis. TIA, unspecified MTDD
== END 2018-10-08 17:09 | disposition home or self-care (01) | DRG 69 ==
LOC: EC 15:15 → 3NMEDONC 20:41 → OBSVTOIN 10-07 18:12
PROVIDERS: ADMIT Internal Medicine; ATTEND Internal Medicine
DX: G45.9 Transient cerebral ischemic attack, unspecified (principal); D61.818 Other pancytopenia; N39.0 Urinary tract infection, site not specified; G93.9 Disorder of brain, unspecified; E11.22 Type 2 diabetes mellitus with diabetic chronic kidney disease; J44.9 Chronic obstructive pulmonary disease, unspecified; D63.8 Anemia in other chronic diseases classified elsewhere; N18.3 Chronic kidney disease, stage 3 (moderate); I12.9 Hypertensive chronic kidney disease with stage 1 through stage 4 chronic kidney disease, or unspecified chronic kidney disease; E78.5 Hyperlipidemia, unspecified; F41.8 Other specified anxiety disorders; N40.0 Benign prostatic hyperplasia without lower urinary tract symptoms; I25.2 Old myocardial infarction; I95.1 Orthostatic hypotension; R91.8 Other nonspecific abnormal finding of lung field; I25.10 Atherosclerotic heart disease of native coronary artery without angina pectoris; Z79.82 Long term (current) use of aspirin; Z79.01 Long term (current) use of anticoagulants; Z79.4 Long term (current) use of insulin; Z79.899 Other long term (current) drug therapy; Z87.891 Personal history of nicotine dependence; Z85.118 Personal history of other malignant neoplasm of bronchus and lung; Z90.2 Acquired absence of lung [part of]; Z92.21 Personal history of antineoplastic chemotherapy; Z86.73 Personal history of transient ischemic attack (TIA), and cerebral infarction without residual deficits; Z86.718 Personal history of other venous thrombosis and embolism; Z87.01 Personal history of pneumonia (recurrent); Z90.49 Acquired absence of other specified parts of digestive tract; Z98.42 Cataract extraction status, left eye; Z98.41 Cataract extraction status, right eye; Z83.3 Family history of diabetes mellitus
CPT/HCPCS: 36415; 70496; 70498; 70551; 71046; 80048; 80053; 81001; 83036; 83605; 83690; 83880; 84484; 85025; 85610; 87040; 87077; 87086; 87186; 93005; 94640; 95819; 96365; 99285

== ENCOUNTER 2018-10-25 18:44 | Emergency (ER) | payer MEDICARE, OTHER ==
[2018-10-25] MEDS ORDERED: SODIUM CHLORIDE 0.9% 500 ML 500 ML IV STA (20:06)
[2018-10-25 21:29] LABS: Albumin 3.1 g/dL (3.5-5.0); Calcium 9.1 mg/dL (8.4-10.2); Potassium 5.5 mmol/L (3.5-5.1); Total Bilirubin 0.2 mg/dL (0.2-1.3); Total Protein 5.5 g/dL (6.3-8.2)
[2018-10-25 21:37] LABS: Basophils % (A) 0 %; Eosinophils # (A) 0.1 k/uL (0-0.7); Eosinophils % (A) 3 %; HCT 23.7 % (39.0-53.0); Lymphocytes # (A) 0.4 k/uL (1.0-4.8); Lymphocytes % (A) 14 %; MCH 30.3 pg (25.0-35.0); MCHC 33.8 g/dL (31.0-37.0); MCV 89.8 fL (80.0-100.0); Monocytes % (A) 1 %; Neutrophils # (A) 2.5 k/uL (1.3-7.7); Neutrophils % (A) 81 %; Platelet Count 78 k/uL (150-450); RBC 2.64 m/uL (4.30-5.90); RDW 14.6 % (11.5-15.5); WBC 3.1 k/uL (3.8-10.6)
--- NOTE | 2018-10-25 22:07 | CT ---
EXAMINATION TYPE: CT abdomen pelvis wo con DATE OF EXAM: 10/25/2018 COMPARISON: None HISTORY: abdominal pain CT DLP: 615.6 mGycm Automated exposure control for dose reduction was used. TECHNIQUE: Helical acquisition of images was performed from the lung bases through the pelvis. FINDINGS: Lung bases are clear. There is no pleural effusion. Heart size is normal. There is no pericardial eff usion. Liver shows no focal defect. There are clips from cholecystectomy. Spleen appears normal. Stomach lito ears normal. Bile ducts are not dilated. There is no evidence of pancreatic mass. There is pancreatic atrophy. There is no adrenal mass. There is fat stranding around the kidneys. Kidneys have normal size. There is no hydronephrosis. There is no retroperitoneal adenopathy. Bladder distends smoothly. There is no inguinal hernia. There is no free fluid in the pelvis. There is no mesenteric edema or adenopathy. I see no evidence o f a bowel obstruction. There is subcutaneous increased density in the fat over the right anterior abdomen. I see no bony ioana tructive process. There is mild spondylosis in the lower lumbar spine. There is no sign of free air. There is bone island in the right iliac bone. Appendix appears normal. IMPRESSION: NORMAL APPENDIX. SUBCUTANEOUS DENSITY OVER THE RIGHT ANTERIOR ABDOMEN CONSISTENT WITH CELLULITIS OR P ANNICULITIS. NO ACUTE ABNORMALITY SEEN WITHIN THE ABDOMEN AND PELVIS.
[2018-10-25 22:27] LABS: Appearance,Urine Clear (Clear); Bilirubin,Urine Negative (Negative); Blood,Urine Trace (Negative); Color,Urine Light Yellow; Glucose,Urine (UA) 3+ (Negative); Hyaline Casts,Urine 3 /lpf (0-2); Ketones,Urine Negative (Negative); Leukocyte Esterase,Urine Negative (Negative); Mucus,Urine Rare /hpf; Nitrite,Urine Negative (Negative); Protein,Urine 1+ (Negative); RBC,Urine 1 /hpf (0-5); Specific Gravity,Urine 1.013 (1.001-1.035); Squamous Epithelial Cell,Urine <1 /hpf (0-4); Urobilinogen,Urine <2.0 mg/dL (<2.0); WBC,Urine 1 /hpf (0-5)
[2018-10-25] MEDS ORDERED: PEG 3350-NA SULF,BICARB,CL/KCL 4,000 ML BOTTLE PO ONE (23:42)
--- NOTE | 2018-10-25 23:45 | ED ---
General Adult HPI - General Chief complaint: Abdominal Pain Stated complaint: PROBLEMS URININATING Time Seen by Provider: 10/25/18 19:37 Source: patient, RN notes reviewed Mode of arrival: ambulatory Limitations: no limitations - History of Present Illness Initial comments: 72-year-old male with a comp dictated past medical history presents to the emergency department for a chief complaint of constipation. Patient states he has been unable to have a bowel movement for 3 days. He admits that 3 days ago when he did have a bowel movement it was hard in nature. Patient states he last received chemo 3 days ago for his lung cancer and states he was told that it is likely the chemo. He states he did a fecal disimpaction of himself and caused mild bleeding. She is passing gas normally. He is eating and drinking normally. He has not taken anything for the constipation. He denies any abdominal pain associated with this. He denies any hematuria urination, urinary urgency, urinary frequency. Despite cheif complaint in the computer patient is not having any difficulties urinating. Patient has no other complaints at this time including shortness of breath, chest pain, abdominal pain, nausea or vomiting, headache, or visual changes. - Related Data Home Medications Medication Instructions Recorded Confirmed amLODIPine [Norvasc] 5 mg PO DAILY 07/09/14 10/25/18 PARoxetine [Paxil] 20 mg PO DAILY 11/15/14 10/25/18 Furosemide [Lasix] 20 mg PO DAILY 08/31/18 10/25/18 Rivaroxaban [Xarelto] 20 mg PO DAILY 08/31/18 10/25/18 Isosorbide Mononitrate ER [Imdur] 30 mg PO DAILY 10/05/18 10/25/18 Lisinopril [Zestril] 10 mg PO DAILY 10/05/18 10/25/18 Allergies Allergy/AdvReac Type Severity Reaction Status Date / Time No Known Allergies Allergy Verified 10/25/18 19:47 Review of Systems ROS Statement: Those systems with pertinent positive or pertinent negative responses have been documented in the HPI. ROS Other: All systems not noted in ROS Statement are negative. Past Medical History Past Medical History: Coronary Artery Disease (CAD), COPD, CVA/TIA, Diabetes Mellitus, Deep Vein Thrombosis (DVT), Hyperlipidemia, Hypertension, Myocardial Infarction (DC), Pneumonia, Prostate Disorder, Syncope Additional Past Medical History / Comment(s): COPD, diabetes mellitus type 2, BPH, left upper lobe lesion measuring 1.9 x 1.6 cm in size and not showing any metabolic activity, coronary artery disease with previous DC, diabetes mellitus , hypertension, hyperlipidemia, chronic back pain, BPH Last Myocardial Infarction Date:: 05/24/12 History of Any Multi-Drug Resistant Organisms: None Reported Past Surgical History: Back Surgery, Cholecystectomy, Heart Catheterization, Hernia Repair Additional Past Surgical History / Comment(s): 2011 cardiac cath-treated medically, low back surgery, ROBERTO CATARACT SX, abdominal hernia repair, bilateral cataract removal, bronchoscopy. left upper lobe of lung removed 07/2018 Past Anesthesia/Blood Transfusion Reactions: No Reported Reaction Past Psychological History: Anxiety, Depression Smoking Status: Former smoker Past Alcohol Use History: None Reported Past Drug Use History: None Reported - Past Family History Mother Family Medical History: No Reported History Father Family Medical History: Diabetes Mellitus Additional Family Medical History / Comment(s): Father of diabetes at the age of 83 yrs. General Exam Limitations: no limitations General appearance: alert, in no apparent distress Head exam: Present: atraumatic, normocephalic, normal inspection Eye exam: Present: normal appearance, PERRL, EOMI. Absent: scleral icterus, conjunctival injection, periorbital swelling ENT exam: Present: normal exam, mucous membranes moist Neck exam: Present: normal inspection, full ROM. Absent: tenderness, meningismus, lymphadenopathy Respiratory exam: Present: normal lung sounds bilaterally. Absent: respiratory distress, wheezes, rales, rhonchi, stridor Cardiovascular Exam: Present: regular rate, normal rhythm, normal heart sounds. Absent: systolic murmur, diastolic murmur, rubs, gallop, clicks GI/Abdominal exam: Present: soft, normal bowel sounds. Absent: distended, tenderness (No tenderness noted to the abdomen whatsoever.), guarding, rebound, rigid Rectal exam: Present: normal inspection, normal rectal tone. Absent: bloody stool, fecal impaction, mass Neurological exam: Present: alert, oriented X3, CN II-XII intact Psychiatric exam: Present: normal affect, normal mood Skin exam: Present: warm, dry, intact, normal color. Absent: rash Course Vital Signs 10/25/18 10/26/18 18:54 00:11 Temperature 98.3 F 98.2 F Pulse Rate 113 H 89 Respiratory 22 16 Rate Blood Pressure 135/61 156/75 O2 Sat by Pulse 98 96 Oximetry EKG Findings - EKG Comments: EKG Findings:: EKG shows a normal sinus rhythm, ventricular rate 90, SD interval 160, QTC 41, no evidence of ST elevation or depression Medical Decision Making - Medical Decision Making 72-year-old male presents to the emergency department for a chief complaint constipation. Patient has been unable to have a bowel movement for 3 days. He did fecal he disimpacted himself earlier today and did cause some mild bleeding which has resolved. Vitals are within acceptable limits. Patient initially somewhat tachycardic which did resolve throughout his stay. On exam patient does not have any abdominal tenderness. Exam is generally unremarkable. Rectal exam did not reveal any masses or impaction. Hemoglobin 8, patient usually low around 10. Patient is not having any shortness of breath, dizziness , lightheadedness, feelings of weakness, chest pain. CMP does show potassium of 5.5 which is minimally elevated. Patient recently stopped taking potassium supplements. Therefore EKG was obtained which showed a normal sinus rhythm, no EKG changes from hyperkalemia. Creatinine 1.39 which is consistent with patient 's past creatinine levels. He was given normal saline. Urine does not show any evidence of infection. Abdomen and pelvis CT was ordered as he has history of cancer. This was noncontrast due to patient's renal function. CT showed a normal appendix. It showed a subcutaneous density over the right anterior abdomen. This is where patient gives his insulin shots and has mild ecchymosis there. I did review all labs and CT with Dr. Rodas. I spoke with Dr. White , radiologist who read CT about possible soft tissue density in the rectum. But states it could be, recommends physical exam. On my physical exam I do not feel a mass at this time nor any impaction. Discussed with patient possibility of soft tissue mass. He will follow up with GI for this. He will take GoLYTELY at home which he agrees. he will return here for any worsening symptoms. - Lab Data Result diagrams: 10/25/18 20:48 10/25/18 20:48 Lab Results 10/25/18 10/25/18 10/25/18 Range/Units 20:48 20:48 21:58 WBC 3.1 L (3.8-10.6) k/uL RBC 2.64 L (4.30-5.90) m/uL Hgb 8.0 L D (13.0-17.5) gm/dL Hct 23.7 L (39.0-53.0) % MCV 89.8 (80.0-100.0) fL MCH 30.3 (25.0-35.0) pg MCHC 33.8 (31.0-37.0) g/dL RDW 14.6 (11.5-15.5) % Plt Count 78 L (150-450) k/uL Neutrophils % 81 % Lymphocytes % 14 % Monocytes % 1 % Eosinophils % 3 % Basophils % 0 % Neutrophils # 2.5 (1.3-7.7) k/uL Lymphocytes # 0.4 L (1.0-4.8) k/uL Monocytes # 0.0 (0-1.0) k/uL Eosinophils # 0.1 (0-0.7) k/uL Basophils # 0.0 (0-0.2) k/uL Sodium 137 (137-145) mmol/L Potassium 5.5 H (3.5-5.1) mmol/L Chloride 107 (98-107) mmol/L Carbon Dioxide 24 (22-30) mmol/L Anion Gap 6 mmol/L BUN 46 H (9-20) mg/dL Creatinine 1.39 H (0.66-1.25) mg/dL Est GFR (CKD-EPI)AfAm 59 (>60 ml/min/1.73 sqM) Est GFR (CKD-EPI)NonAf 51 (>60 ml/min/1.73 sqM) Glucose 289 H (74-99) mg/dL Calcium 9.1 (8.4-10.2) mg/dL Total Bilirubin 0.2 (0.2-1.3) mg/dL AST 19 (17-59) U/L ALT 37 (21-72) U/L Alkaline Phosphatase 87 (38-126) U/L Total Protein 5.5 L (6.3-8.2) g/dL Albumin 3.1 L (3.5-5.0) g/dL Amylase 57 (30-110) U/L Lipase 42 (23-300) U/L Urine Color Light Yellow Urine Appearance Clear (Clear) Urine pH 5.0 (5.0-8.0) Ur Specific [place] 1.013 (1.001-1.035) Urine Protein 1+ H (Negative) Urine Glucose (UA) 3+ H (Negative) Urine Ketones Negative (Negative) Urine Blood Trace H (Negative) Urine Nitrite Negative (Negative) Urine Bilirubin Negative (Negative) Urine Urobilinogen <2.0 (<2.0) mg/dL Ur Leukocyte Esterase Negative (Negative) Urine RBC 1 (0-5) /hpf Urine WBC 1 (0-5) /hpf Ur Squamous Epith Cells <1 (0-4) /hpf Hyaline Casts 3 H (0-2) /lpf Urine Mucus Rare H (None) /hpf Disposition Clinical Impression: Constipation, Hyperkalemia Disposition: HOME SELF-CARE Condition: Good Instructions: Constipation (ED), Hyperkalemia (ED) Additional Instructions: Please follow up with primary care for hyperkalemia. Please follow-up with GI for further evaluation of rectum. Please take GoLYTELY as needed at home for constipation. Please return to the emergency department if you have any worsening symptoms or are not able to have a bowel movement. Is patient prescribed a controlled substance at d/c from ED?: No Referrals: Renzo Boyer MD [Primary Care Provider] - 1-2 days Mcakenzie Jacob MD [STAFF PHYSICIAN] - 1-2 days Time of Disposition: 23:41
[2018-10-26 00:12] VITALS: BP 156/75; PULSE 89; RESP 16; TEMP 98.2
== END 2018-10-26 00:11 | disposition home or self-care (01) ==
LOC: EC 18:44
DX: E87.5 Hyperkalemia (principal); K59.00 Constipation, unspecified; R58 Hemorrhage, not elsewhere classified; I10 Essential (primary) hypertension; I25.10 Atherosclerotic heart disease of native coronary artery without angina pectoris; E11.9 Type 2 diabetes mellitus without complications; I25.2 Old myocardial infarction; F32.9 Major depressive disorder, single episode, unspecified; F41.9 Anxiety disorder, unspecified; Z87.891 Personal history of nicotine dependence; Z79.4 Long term (current) use of insulin; Z79.01 Long term (current) use of anticoagulants; Z79.899 Other long term (current) drug therapy; Z86.718 Personal history of other venous thrombosis and embolism; Z86.73 Personal history of transient ischemic attack (TIA), and cerebral infarction without residual deficits; Z95.818 Presence of other cardiac implants and grafts; Z85.118 Personal history of other malignant neoplasm of bronchus and lung; Z90.2 Acquired absence of lung [part of]; Z92.21 Personal history of antineoplastic chemotherapy; Z90.49 Acquired absence of other specified parts of digestive tract
CPT/HCPCS: 36415; 74176; 80053; 81001; 82150; 83690; 85025; 93005; 96360; 99284

== ENCOUNTER 2018-11-13 18:35 | Inpatient (IN) | payer MEDICARE, OTHER ==
[2018-11-13] MEDS ORDERED: SODIUM CHLORIDE 0.9% 500 ML IV STA (20:53)
--- NOTE | 2018-11-13 20:54 | ED ---
General Adult HPI - General Chief complaint: Shortness of Breath Stated complaint: Diff Breathing Source: patient Mode of arrival: ambulatory Limitations: no limitations - Related Data Home Medications Medication Instructions Recorded Confirmed amLODIPine [Norvasc] 5 mg PO DAILY 07/09/14 11/13/18 PARoxetine [Paxil] 20 mg PO DAILY 11/15/14 11/13/18 Furosemide [Lasix] 20 mg PO DAILY 08/31/18 11/13/18 Rivaroxaban [Xarelto] 20 mg PO DAILY 08/31/18 11/13/18 Isosorbide Mononitrate ER [Imdur] 30 mg PO DAILY 10/05/18 11/13/18 Lisinopril [Zestril] 10 mg PO DAILY 10/05/18 11/13/18 Advair (Unknown Dose) 1 puff INHALATION RT-DAILY PRN 11/13/18 11/13/18 Albuterol Nebulized [Ventolin 2.5 mg INHALATION RT-TID PRN 11/13/18 11/13/18 Nebulized] Insulin Detemir [Levemir Flextouch] 72 units SQ HS 11/13/18 11/13/18 Allergies Allergy/AdvReac Type Severity Reaction Status Date / Time No Known Allergies Allergy Verified 11/13/18 20:44 Review of Systems ROS Statement: Those systems with pertinent positive or pertinent negative responses have been documented in the HPI. ROS Other: All systems not noted in ROS Statement are negative. Past Medical History Past Medical History: Coronary Artery Disease (CAD), COPD, CVA/TIA, Diabetes Mellitus, Deep Vein Thrombosis (DVT), Hyperlipidemia, Hypertension, Myocardial Infarction (IA), Pneumonia, Prostate Disorder, Syncope Additional Past Medical History / Comment(s): COPD, diabetes mellitus type 2, BPH, left upper lobe lesion measuring 1.9 x 1.6 cm in size and not showing any metabolic activity, coronary artery disease with previous IA, diabetes mellitus , hypertension, hyperlipidemia, chronic back pain, BPH Last Myocardial Infarction Date:: 05/24/12 History of Any Multi-Drug Resistant Organisms: None Reported Past Surgical History: Back Surgery, Cholecystectomy, Heart Catheterization, Hernia Repair Additional Past Surgical History / Comment(s): 2011 cardiac cath-treated medically, low back surgery, ROBERTO CATARACT SX, abdominal hernia repair, bilateral cataract removal, bronchoscopy. left upper lobe of lung removed 07/2018 Past Anesthesia/Blood Transfusion Reactions: No Reported Reaction Past Psychological History: Anxiety, Depression Smoking Status: Former smoker Past Alcohol Use History: None Reported Past Drug Use History: None Reported - Past Family History Mother Family Medical History: No Reported History Father Family Medical History: Diabetes Mellitus Additional Family Medical History / Comment(s): Father of diabetes at the age of 83 yrs. General Exam Limitations: no limitations Course Vital Signs 11/13/18 11/13/18 18:38 22:52 Temperature 98.2 F Pulse Rate 95 84 Respiratory 18 Rate Blood Pressure 170/66 O2 Sat by Pulse 99 Oximetry Medical Decision Making - Medical Decision Making Dictation was produced using [employer] dictation software. please excuse any grammatical, word or spelling errors. Chief Complaint: 72-year-old male who is undergoing chemotherapy treatment for his lung cancer presents with instruction by primary care physician to come to the emergency department. History of Present Illness: Patient is a 72-year-old male. He is told by his primary care physician come to the emergency department for further care. Patient has history of COPD. He has history of lung resection. He states he was seen at his PCPs office early this morning was given a breathing treatment and sent home. He did have some labs that were performed. He got a call during dinnertime and he was instructed to come to the emergency department. Patient understands that he was told to come here for inpatient breathing treatments. Labs are made available to me. Patient does have anemia of 7.1, WBCs of 1.2., Potassium of 5.9. Elevated BUN of 63 with a creatinine 1.6 The ROS documented in this emergency department record has been reviewed and confirmed by me. Those systems with pertinent positive or negative responses have been documented in the HPI. All other systems are other negative and/or noncontributory. PHYSICAL EXAM: General Impression: Alert and oriented x3, not in acute distress HEENT: Normocephalic atraumatic, extra-ocular movements intact, pupils equal and reactive to light bilaterally, dry mucous members Cardiovascular: Heart regular rate and rhythm, S1&S2 audible, no murmurs, rubs or gallops Chest: The right lung wheezing Abdomen: Bowel sounds present, abdomen soft, non-tender, non-distended, no organomegaly Musculoskeletal: Pulses present and equal in all extremities, no peripheral edema Motor: Power 5/5 bilaterally, no focal deficits noted Neurological: CN II-XII grossly intact, no focal motor or sensory deficits noted Skin: Intact with no visualized rashes Psych: Normal affect and mood ED course: 62-year-old male presents with instruction from primary care physician in the emergency department. Vital signs upon arrival are within acceptable limits. Patient is well-appearing and physical examination. Labs are made available to me. Labs were taken. Patient has stable CBC. Potassium is 6.5. Creatinine is 225. Hyperkalemia was treated. EKG does not show any findings of EKG changes suggestive of hyperkalemia. Patient given hyperkalemia cocktail. Patient be admitted for further breathing treatments and hyperkalemia treatment. EKG interpretation: Ventricular rate 89, sinus rhythm, MI interval 166, QS 80, QTc 411. No MI prolongation, no QTC prolongation, no ST or T-wave changes noted. Overall, this EKG is unremarkable - Lab Data Result diagrams: 11/13/18 20:36 11/13/18 20:36 Lab Results 11/13/18 11/13/18 Range/Units 20:36 20:36 WBC 1.2 L* (3.8-10.6) k/uL RBC 2.39 L (4.30-5.90) m/uL Hgb 7.6 L (13.0-17.5) gm/dL Hct 22.0 L (39.0-53.0) % MCV 92.0 (80.0-100.0) fL MCH 31.8 (25.0-35.0) pg MCHC 34.5 (31.0-37.0) g/dL RDW 16.4 H (11.5-15.5) % Plt Count 185 (150-450) k/uL Neutrophils % 67 % Lymphocytes % 23 % Monocytes % 2 % Eosinophils % 4 % Basophils % 1 % Neutrophils # 0.8 L (1.3-7.7) k/uL Lymphocytes # 0.3 L (1.0-4.8) k/uL Monocytes # 0.0 (0-1.0) k/uL Eosinophils # 0.0 (0-0.7) k/uL Basophils # 0.0 (0-0.2) k/uL Anisocytosis Slight Potassium 6.5 H* (3.5-5.1) mmol/L Uric Acid 7.6 (3.5-8.5) mg/dL Creatine Kinase 225 H (55-170) U/L Disposition Clinical Impression: Hyperkalemia Disposition: ADMITTED IP TO THIS HOSP Condition: Fair Referrals: Renzo Boyer MD [Primary Care Provider] - 1-2 days Decision Time: 23:18
[2018-11-13 21:26] LABS: Anisocytosis Slight; Basophils % (A) 1 %; Eosinophils % (A) 4 %; HGB 7.6 gm/dL (13.0-17.5); Lymphocytes # (A) 0.3 k/uL (1.0-4.8); Lymphocytes % (A) 23 %; MCH 31.8 pg (25.0-35.0); MCHC 34.5 g/dL (31.0-37.0); Mean Platelet Volume 6.9; Monocytes % (A) 2 %; Neutrophils # (A) 0.8 k/uL (1.3-7.7); Neutrophils % (A) 67 %; Platelet Count 185 k/uL (150-450); RBC 2.39 m/uL (4.30-5.90); RDW 16.4 % (11.5-15.5)
[2018-11-13 21:38] LABS: Uric Acid 7.6 mg/dL (3.5-8.5)
[2018-11-13 21:48] LABS: Potassium 6.5 mmol/L (3.5-5.1)
[2018-11-13 21:56] LABS: WBC 1.2 k/uL (3.8-10.6)
[2018-11-13] MEDS ORDERED: ALBUTEROL NEB (CONC) 2.5 MG/0.5 ML INHALATION ONE (22:11)
[2018-11-13] MEDS ORDERED: SODIUM POLYSTYRENE SULFONATE 15 GM/60 ML BOTTLE PO ONE (22:11)
[2018-11-13] MEDS ORDERED: DEXTROSE 50%-WATER 50 ML SYRINGE IVP ONE (22:11)
[2018-11-13] MEDS ORDERED: INSULIN REGULAR 100 UNIT/ML VIAL IV ONE (22:11)
[2018-11-13] MEDS ORDERED: CALCIUM GLUCONATE 1,000 MG in SODIUM CHLORIDE 0.9% 100 ML IVPB ONE (22:13)
[2018-11-13] MEDS ORDERED: NALOXONE 0.4 MG/ML 1 ML VIAL IV PRN (23:15)
[2018-11-14] MEDS: SODIUM CHLORIDE 0.9% 1,000 ML IV SCH ×2 (00:14→23:09)
[2018-11-14 00:56] LABS: Glucose,Whole Blood 125 mg/dL (75-99)
[2018-11-14 05:39] LABS: Anisocytosis Slight; Basophils % (A) 0 %; Eosinophils % (A) 4 %; Lymphocytes # (A) 0.3 k/uL (1.0-4.8); Lymphocytes % (A) 26 %; MCHC 33.7 g/dL (31.0-37.0); Mean Platelet Volume 7.4; Monocytes % (A) 3 %; Neutrophils # (A) 0.7 k/uL (1.3-7.7); Neutrophils % (A) 65 %; Platelet Count 168 k/uL (150-450); RBC 1.98 m/uL (4.30-5.90); RDW 16.3 % (11.5-15.5)
[2018-11-14 05:42] LABS: WBC 1.1 k/uL (3.8-10.6)
[2018-11-14 05:44] LABS: HGB 6.1 gm/dL (13.0-17.5)
[2018-11-14 05:45] LABS: HCT 18.2 % (39.0-53.0)
[2018-11-14 05:59] LABS: Calcium 8.8 mg/dL (8.4-10.2); Magnesium 1.5 mg/dL (1.6-2.3); Phosphorus 3.5 mg/dL (2.5-4.5); Potassium 5.8 mmol/L (3.5-5.1)
[2018-11-14] MEDS ORDERED: IPRATROPIUM-ALBUTEROL 3 ML NEB INHALATION PRN (06:29)
--- NOTE | 2018-11-14 06:53 | XR ---
EXAMINATION TYPE: XR chest 1V DATE OF EXAM: 11/14/2018 CLINICAL HISTORY: Difficulty breathing, history of lung cancer and partial pneumonectomy. TECHNIQUE: Single AP portable upright view of the chest is obtained. COMPARISON: Chest x-ray from October 05, 2018. CTA chest August 31, 2018 FINDINGS: There is chronic left basilar opacity and left-sided volume loss consistent with partial p neumonectomy changes with associated left basilar scarring. Small left pleural fluid collection is se en better on CT than x-ray. Some eventration of right hemidiaphragm is redemonstrated. Right lung is clear. There is stable subcentimeter right upper to mid lung nodule. Cardiac silhouette size remains within normal limits with atherosclerotic thoracic aorta. Osseous structures are intact. IMPRESSION: Overall stable findings, postsurgical changes to left lung with suspected stable small left pleural fluid collection. No new acute pulmonary process. Subcentimeter right upper lung nodule redemonstrated.
[2018-11-14 07:03] LABS: Glucose,Whole Blood 205 mg/dL (75-99)
[2018-11-14] MEDS: MAGNESIUM SULFATE-D5W PMX 1 GM in DEXTROSE/WATER 1 100ML.BAG IVPB SCH ×2 (07:12→08:23)
[2018-11-14] MEDS: INSULIN ASPART 100 UNIT/ML 1 ML 10 ML VIAL SQ SCH ×4 (07:19→20:24)
[2018-11-14] MEDS: IPRATROPIUM-ALBUTEROL 3 ML NEB INHALATION PRN ×4 (07:42→19:28)
--- NOTE | 2018-11-14 08:04 | CONS ---
CONSULTATION DATE OF CONSULTATION: November 14, 2018 This is a 72-year-old male who presents to emergency room because of abnormal blood testing and laboratory results as well as some shortness of breath. He apparently was seeing my partner, his usual shank sorter, Dr. Boyer yesterday in the office. A chest x-ray was done and apparently, he was told that the chest x-ray looked good. He had a recent lung surgery at [facility] for the diagnosis of lung cancer. Anyway, he has undergone 4 or 5 chemo treatments for his lung cancer. I think he is seeing Dr. Martin. The patient apparently had some lab work done yesterday and his potassium was elevated and he presented to the emergency department. In the emergency department, his potassium was 6.5. He received the usual cocktail of dextrose and insulin and calcium and albuterol treatments. His potassium this morning is 5.8. He was never symptomatic from his hyperkalemia and there was no EKG changes because of the hyperkalemia. In addition, he is short of breath and his laboratory data suggests that he has got bicytopenia. His white count is 1.1 and his hemoglobin was initially 7.6, it is now 6.1. He has had 4 or 5 rounds of chemotherapy. His last chemotherapy about 9 days ago. Currently, he is not receiving any supplemental oxygen. He is on saline IV at 20 mL an hour. The patient otherwise looks relatively stable and could probably be transferred out of the ICU. We are going to give him a unit of blood for his low hemoglobin. The patient will have a repeat potassium. We will decide at that point whether or not we will want to do anything more. We added some updraft treatments per his request and we also added some Symbicort 160/4.5, two puffs twice a day. ALLERGIES: Current allergies are denied. HOME MEDICATIONS: Home medications include amlodipine, Paxil, Lasix, Xarelto, Imdur, lisinopril, Advair, updrafts, and insulin. PAST MEDICAL HISTORY: Past medical history is positive for CAD, COPD, CVA, diabetes, deep venous thrombosis, hyperlipidemia, hypertension, previous myocardial infarction, BPH, and syncope. SURGICAL HISTORY: His surgical history includes back surgery, cholecystectomy, heart catheterization, hernia repair, bilateral cataract surgery, abdominal hernia repair, bronchoscopy which was done by me navigationally and a left upper lobe resection in July of last year at [facility]. I do not know the pathology results at this time. SOCIAL HISTORY: Social history is positive for previous tobacco use. Alcohol use and illicit drug use is denied. FAMILY HISTORY: Family history is positive for diabetes. REVIEW OF SYSTEMS: CONSTITUTIONAL: Weakness. NEUROLOGIC: Negative. HEENT: Negative. CARDIOVASCULAR: Negative. PULMONARY: Mild shortness of breath. GI/: Negative. RHEUMATOLOGIC: Negative. HEMATOLOGIC: Negative. ENDOCRINOLOGIC: Negative. DERMATOLOGIC: Negative. PHYSICAL EXAMINATION: Current vital signs are reviewed. His temperature is 98.1, heart rate 86, respiratory rate 20, blood pressure 143/56, mean 85, saturations are 96% on room air. Appears in no acute distress. Mildly tachypneic. HEENT examination is grossly unremarkable. Mucous membranes are moist. No nasal O2 noted. NECK: Supple. Full range of motion. No adenopathy or thyromegaly. Neck veins are flat. Cardiovascular examination reveals a regular rhythm and rate. S1, S2 normal. Heart rate in the 80s. No murmur. Lungs reveal mostly clear breath sounds. A few scattered mild rhonchi. No wheezes or crackles. ABDOMEN: Soft. Bowel sounds are heard. Extremities are intact. No cyanosis, clubbing, or edema. Skin without rash. LABORATORY DATA: Laboratory data includes a white count this morning of 1.1, hemoglobin 6.1, hematocrit 18.2, platelet count 168,000. Sodium 137, potassium 5.8, chloride 110, CO2 of 21. BUN and creatinine were 50 and 1.45. A repeat potassium is pending. His magnesium is a bit low and will be replaced. I ordered a chest x-ray. It shows stable findings. Left pleural fluid collection. A small subcentimeter right upper lobe nodule was identified. All in all though, the chest x-ray looks rather good. Medications are reviewed. The patient is on updrafts with albuterol and Atrovent. I added Symbicort. We added back his other usual medications. We will also put him back on Xarelto. ASSESSMENT: 1. Shortness of breath, likely related to underlying chronic obstructive pulmonary disease and mild anemia. 2. Hyperkalemia, currently being treated. 3. Recent left upper lobe lung resection for lung cancer, status post 4 to 5 rounds of chemotherapy, last one occurring 9 days ago. 4. Profound leukopenia. 5. Chemotherapy-induced bone marrow depression and anemia. 6. History of deep venous thrombosis. 7. History of diabetes. 8. Coronary artery disease. 9. History of pneumonia. 10.History of myocardial infarction. 11.Hyperlipidemia. 12.History of syncope. 13.Benign prostatic hypertrophy. PLAN: The patient will get a unit of blood. We added back some Symbicort and updraft treatments. A chest x-ray was done. It looks stable. The patient could be transferred out to the selective floor. Will repeat the hemoglobin after the 1 unit of blood. We will also repeat the potassium level. Additional recommendations and suggestions are forthcoming. Prognosis is guarded. We will continue to follow. MMODL / IJN: [id number] /
[2018-11-14] MEDS ORDERED: ONDANSETRON 4 MG/2 ML VIAL IVP PRN (08:21)
[2018-11-14] MEDS: ISOSORBIDE MONONITRATE ER 30 MG TAB.ER.24H PO SCH (10:34)
[2018-11-14] MEDS: RIVAROXABAN 20 MG TAB PO SCH (10:34)
[2018-11-14] MEDS: amLODIPine 5 MG TAB PO SCH (10:34)
[2018-11-14] MEDS: SYMBICORT 160-4.5 MCG INHALER INHALATION SCH ×2 (11:02→19:28)
[2018-11-14] MEDS ORDERED: SODIUM POLYSTYRENE SULFONATE 15 GM/60 ML BOTTLE PO STA (11:06)
[2018-11-14] MEDS ORDERED: traMADol 50 MG TAB PO PRN (11:37)
[2018-11-14 11:57] LABS: Glucose,Whole Blood 245 mg/dL (75-99)
--- NOTE | 2018-11-14 14:17 | P.HPIM ---
History of Present Illness 71-year-old pleasant gentleman was sent in the to the hospital from Dr. Boyer' s office because of hyperkalemia. Patient's potassium is around 6.7 was treated with the dextrose with insulin capsulate and calcium gluconate. Patient denied any short of breath and patient does have history of COPD recently diagnosed with the lung cancer and the patient received chemotherapy appears to have completed chemotherapy and patient is clinically doing well and the chance of recurrence was around 2% which she was told by the oncologist. Patient denied any fever chills denied any nausea vomiting diarrhea. Patient does have acute renal failure as well as hyperkalemia patient is on lisinopril at home lisinopril is being held patient will transfer out of ICU. No tall T waves on EKG. Patient clinically looks well will be given another dose of capsulate IV fluids and blood transfusion patient does have bicytopenia from chemotherapy with hemoglobin of 6.1 which showed a is resulting in his fatigue. Patient denied any cough doesn't have any significant COPD exacerbation at this time. Denied any significant shortness of breath, does have fatigue Review of Systems REVIEW OF SYSTEMS: CONSTITUTIONAL: As mentioned above HEENT: No recent visual problems or hearing problems. Denied any sore throat. CARDIOVASCULAR: No chest pain, orthopnea, PND, no palpitations, no syncope. PULMONARY: No shortness of breath, no cough, no hemoptysis. GASTROINTESTINAL: No diarrhea, no nausea, no vomiting, no abdominal pain. NEUROLOGICAL: No headaches, no weakness, no numbness. HEMATOLOGICAL: Denies any bleeding or petechiae. GENITOURINARY: Denies any burning micturition, frequency, or urgency. MUSCULOSKELETAL/RHEUMATOLOGICAL: Denies any joint pain, swelling, or any muscle pain. ENDOCRINE: Denies any polyuria or polydipsia. The rest of the 14-point review of systems is negative. Past Medical History Past Medical History: Coronary Artery Disease (CAD), COPD, CVA/TIA, Diabetes Mellitus, Deep Vein Thrombosis (DVT), Hyperlipidemia, Hypertension, Myocardial Infarction ([place]), Pneumonia, Prostate Disorder, Syncope Additional Past Medical History / Comment(s): COPD, diabetes mellitus type 2, BPH, left upper lobe lesion measuring 1.9 x 1.6 cm in size and not showing any metabolic activity, coronary artery disease with previous IL, diabetes mellitus , hypertension, hyperlipidemia, chronic back pain, BPH Last Myocardial Infarction Date:: 05/24/12 History of Any Multi-Drug Resistant Organisms: None Reported Past Surgical History: Back Surgery, Cholecystectomy, Heart Catheterization, Hernia Repair Additional Past Surgical History / Comment(s): 2011 cardiac cath-treated medically, low back surgery, ROBERTO CATARACT SX, abdominal hernia repair, bilateral cataract removal, bronchoscopy. left upper lobe of lung removed 07/2018 Past Anesthesia/Blood Transfusion Reactions: No Reported Reaction Past Psychological History: Anxiety, Depression Additional Psychological History / Comment(s): PAtient lives with son. 05/05/18: Pt. denies anxiety at this time Smoking Status: Former smoker Past Alcohol Use History: None Reported Additional Past Alcohol Use History / Comment(s): Pt started smoking in 1960 and quit in 1995. He was a 2ppd smoker. Past Drug Use History: None Reported - Past Family History Mother Family Medical History: No Reported History Father Family Medical History: Diabetes Mellitus Additional Family Medical History / Comment(s): Father of diabetes at the age of 83 yrs. Medications and Allergies Home Medications Medication Instructions Recorded Confirmed Type amLODIPine [Norvasc] 5 mg PO DAILY 07/09/14 11/13/18 History PARoxetine [Paxil] 20 mg PO DAILY 11/15/14 11/13/18 History Furosemide [Lasix] 20 mg PO DAILY 08/31/18 11/13/18 History Rivaroxaban [Xarelto] 20 mg PO DAILY 08/31/18 11/13/18 History Isosorbide Mononitrate ER [Imdur] 30 mg PO DAILY 10/05/18 11/13/18 History Lisinopril [Zestril] 10 mg PO DAILY 10/05/18 11/13/18 History Albuterol Nebulized [Ventolin 2.5 mg INHALATION RT-TID PRN 11/13/18 11/13/18 History Nebulized] Insulin Detemir [Levemir Flextouch] 72 units SQ HS 11/13/18 11/13/18 History Fluticasone/Salmeterol [Advair Hfa 2 puff INHALATION RT-BID 11/14/18 11/14/18 History 115-21 Mcg Inhaler] Allergies Allergy/AdvReac Type Severity Reaction Status Date / Time No Known Allergies Allergy Verified 11/13/18 20:44 Physical Exam Vitals: Vital Signs Temp Pulse Resp BP Pulse Ox 11/14/18 13:08 97.7 F 87 20 144/70 98 11/14/18 12:00 90 20 140/63 97 11/14/18 11:11 89 11/14/18 11:04 91 11/14/18 11:00 90 18 137/81 95 11/14/18 10:47 97.3 F L 98 20 137/81 95 11/14/18 10:27 98.3 F 92 19 139/75 11/14/18 10:17 97.8 F 93 22 159/83 11/14/18 10:00 84 22 134/55 94 L 11/14/18 09:00 83 19 153/75 92 L 11/14/18 08:00 97.7 F 86 30 H 153/78 95 11/14/18 07:55 88 11/14/18 07:43 86 11/14/18 07:00 85 20 149/78 97 11/14/18 04:00 98.1 F 86 20 143/56 96 11/14/18 01:41 98.2 F 93 18 144/60 99 11/14/18 00:04 98.2 F 11/13/18 23:40 93 14 150/80 98 11/13/18 23:15 87 11/13/18 23:10 86 20 148/73 100 11/13/18 22:52 84 11/13/18 22:40 81 20 136/76 100 11/13/18 22:30 80 19 143/73 100 11/13/18 21:40 78 20 143/72 97 11/13/18 21:10 80 20 169/55 100 11/13/18 20:40 88 18 163/73 99 11/13/18 20:30 87 17 149/68 96 11/13/18 20:20 99 11/13/18 18:38 98.2 F 95 18 170/66 99 Intake and Output 11/13/18 11/14/18 11/14/18 22:59 06:59 14:59 Intake Total 40 430 Output Total 550 750 Balance -510 -320 Intake: IV 40 20 Sodium Chloride 0.9% 1, 40 20 000 ml @ 100 mls/hr IV . Q10H [facility] Rx#:[id number] Intake, IV Titration 100 Amount Magnesium Sulfate-D5w Pmx 100 1 gm In Dextrose/Water 1 100ml.bag @ 100 mls/hr IVPB Q1H [facility] Rx#: [id number] Blood Product 310 Rc As-3 Unit 310 [id number] Output: Urine 550 650 Emesis 100 Other: Weight 92.079 kg 94 kg PHYSICAL EXAMINATION: GENERAL: The patient is alert and oriented x3, not in any acute distress. Well developed, well nourished. HEENT: Pupils are round and equally reacting to light. EOMI. No scleral icterus. Does have significant conjunctival pallor. Normocephalic, atraumatic. No pharyngeal erythema. No thyromegaly. CARDIOVASCULAR: S1 and S2 present. No murmurs, rubs, or gallops. PULMONARY: Chest is clear to auscultation, no wheezing or crackles. ABDOMEN: Soft, nontender, nondistended, normoactive bowel sounds. No palpable organomegaly. MUSCULOSKELETAL: No joint swelling or deformity. EXTREMITIES: No cyanosis, clubbing, or pedal edema. NEUROLOGICAL: Gross neurological examination did not reveal any focal deficits. SKIN: No rashes. Results CBC & Chem 7: 11/14/18 04:33 11/14/18 04:33 Labs: Abnormal Lab Results - Last 24 Hours (Table) 11/13/18 11/13/18 11/14/18 Range/Units 20:36 20:36 00:18 WBC 1.2 L* (3.8-10.6) k/uL RBC 2.39 L (4.30-5.90) m/uL Hgb 7.6 L (13.0-17.5) gm/dL Hct 22.0 L (39.0-53.0) % RDW 16.4 H (11.5-15.5) % Neutrophils # 0.8 L (1.3-7.7) k/uL Lymphocytes # 0.3 L (1.0-4.8) k/uL Potassium 6.5 H* 5.4 H (3.5-5.1) mmol/L Chloride (98-107) mmol/L Carbon Dioxide (22-30) mmol/L BUN (9-20) mg/dL Creatinine (0.66-1.25) mg/dL Glucose (74-99) mg/dL POC Glucose (mg/dL) (75-99) mg/dL Magnesium (1.6-2.3) mg/dL Creatine Kinase 225 H (55-170) U/L Crossmatch 11/14/18 11/14/18 11/14/18 Range/Units 00:54 04:33 04:33 WBC 1.1 L* (3.8-10.6) k/uL RBC 1.98 L (4.30-5.90) m/uL Hgb 6.1 L* D (13.0-17.5) gm/dL Hct 18.2 L* (39.0-53.0) % RDW 16.3 H (11.5-15.5) % Neutrophils # 0.7 L (1.3-7.7) k/uL Lymphocytes # 0.3 L (1.0-4.8) k/uL Potassium 5.8 H (3.5-5.1) mmol/L Chloride 110 H (98-107) mmol/L Carbon Dioxide 21 L (22-30) mmol/L BUN 50 H (9-20) mg/dL Creatinine 1.45 H (0.66-1.25) mg/dL Glucose 186 H (74-99) mg/dL POC Glucose (mg/dL) 125 H (75-99) mg/dL Magnesium 1.5 L (1.6-2.3) mg/dL Creatine Kinase (55-170) U/L Crossmatch 11/14/18 11/14/18 11/14/18 Range/Units 06:19 07:01 11:43 WBC (3.8-10.6) k/uL RBC (4.30-5.90) m/uL Hgb (13.0-17.5) gm/dL Hct (39.0-53.0) % RDW (11.5-15.5) % Neutrophils # (1.3-7.7) k/uL Lymphocytes # (1.0-4.8) k/uL Potassium (3.5-5.1) mmol/L Chloride (98-107) mmol/L Carbon Dioxide (22-30) mmol/L BUN (9-20) mg/dL Creatinine (0.66-1.25) mg/dL Glucose (74-99) mg/dL POC Glucose (mg/dL) 205 H 245 H (75-99) mg/dL Magnesium (1.6-2.3) mg/dL Creatine Kinase (55-170) U/L Crossmatch See Detail Thrombosis Risk Factor Assmnt - Choose All That Apply Any of the Below Risk Factors Present?: Yes Each Factor Represents 1 point: Swollen legs (current) Other Risk Factors: Yes Each Risk Factor Represents 2 Points: Age 61-74 years Each Risk Factor Represents 3 Points: History of DVT/PE Thrombosis Risk Factor Assessment Total Risk Factor Score: 6 Thrombosis Risk Factor Assessment Level: High Risk Assessment and Plan Plan: -Generalized weakness and tiredness: Secondary to anemia which is again secondary to chemotherapy patient is receiving blood transfusion -Neutropenia secondary to chemotherapy -Hyperkalemia secondary to lisinopril and acute renal failure patient will be given another dose of It will be transferred out of ICU -Hypomagnesemia magnesium will be supplemented -Acute renal failure: Secondary to intravascular depletion prerenal azotemia IV fluids as mentioned above -History of lung cancer for which patient received treatment as mentioned above -Coronary artery disease -COPD without any significant exacerbation -History of DVT for which patient is on oral anti-correlation which will be continued Abdomen benign prostatic hypertrophy -Hyperlipidemia
[2018-11-14 15:17] LABS: Anisocytosis Slight; Basophils % (A) 0 %; Eosinophils # (A) 0.1 k/uL (0-0.7); Eosinophils % (A) 4 %; HCT 20.5 % (39.0-53.0); Lymphocytes # (A) 0.3 k/uL (1.0-4.8); Lymphocytes % (A) 22 %; MCH 30.4 pg (25.0-35.0); MCHC 33.7 g/dL (31.0-37.0); MCV 90.4 fL (80.0-100.0); Mean Platelet Volume 9.1; Monocytes % (A) 2 %; Neutrophils # (A) 0.9 k/uL (1.3-7.7); Neutrophils % (A) 68 %; Platelet Count 121 k/uL (150-450); RBC 2.27 m/uL (4.30-5.90); RDW 16.3 % (11.5-15.5)
[2018-11-14 15:20] LABS: HGB 6.9 gm/dL (13.0-17.5); WBC 1.4 k/uL (3.8-10.6)
[2018-11-14 16:57] LABS: Glucose,Whole Blood 242 mg/dL (75-99)
[2018-11-14 17:28] LABS: Hemoglobin A1C 11.1 % (4.0-6.0)
[2018-11-14 20:20] LABS: Glucose,Whole Blood 228 mg/dL (75-99)
[2018-11-14] MEDS: INSULIN DETEMIR 100 UNIT/ML 10 ML VIAL SQ SCH (20:24)
[2018-11-14] MEDS ORDERED: INSULIN DETEMIR 100 UNIT/ML 10 ML VIAL SQ SCH (21:00)
[2018-11-15 03:34] LABS: Glucose,Whole Blood 189 mg/dL (75-99)
[2018-11-15 04:13] LABS: Anisocytosis Slight; HCT 21.1 % (39.0-53.0); HGB 7.1 gm/dL (13.0-17.5); MCH 30.2 pg (25.0-35.0); MCHC 33.4 g/dL (31.0-37.0); MCV 90.4 fL (80.0-100.0); Mean Platelet Volume 8.2; Platelet Count 127 k/uL (150-450); RBC 2.34 m/uL (4.30-5.90); RDW 16.1 % (11.5-15.5)
[2018-11-15 04:32] LABS: Calcium 9.1 mg/dL (8.4-10.2); Magnesium 1.7 mg/dL (1.6-2.3); Phosphorus 3.5 mg/dL (2.5-4.5); Potassium 5.6 mmol/L (3.5-5.1)
[2018-11-15 04:34] LABS: WBC 1.4 k/uL (3.8-10.6)
[2018-11-15] MEDS ORDERED: Magnesium Replacement Protocol 1 EACH MISC MISCELLANE PRN (04:55)
[2018-11-15] MEDS: MAGNESIUM SULFATE-D5W PMX 1 GM in DEXTROSE/WATER 1 100ML.BAG IVPB SCH ×2 (05:09→06:04)
[2018-11-15 06:38] LABS: Glucose,Whole Blood 152 mg/dL (75-99)
[2018-11-15] MEDS: SYMBICORT 160-4.5 MCG INHALER INHALATION SCH ×2 (06:50→19:47)
[2018-11-15] MEDS: IPRATROPIUM-ALBUTEROL 3 ML NEB INHALATION PRN ×4 (06:50→19:47)
[2018-11-15] MEDS: INSULIN ASPART 100 UNIT/ML 1 ML 10 ML VIAL SQ SCH ×4 (07:05→21:11)
--- NOTE | 2018-11-15 07:21 | XR ---
EXAMINATION TYPE: XR chest 1V portable DATE OF EXAM: 11/15/2018 COMPARISON: 11/14/2018 HISTORY: Shortness of breath TECHNIQUE: Single frontal view of the chest is obtained. FINDINGS: There is a similar appearing right upper lung pulmonary nodule seen on the prior CT dated 08/31/2018, suspicious. Left basilar atelectasis again tents the left hemidiaphragm with possible trace pleural effusion comp onent. Remainder the lungs are clear. Cardiomediastinal fluid is within normal limits. Osseous struct ures are grossly intact with mild degenerative thoracic spine. IMPRESSION: Left basilar subsegmental atelectasis and/or trace left pleural effusion with similar-ap pearing suspicious right upper lung pulmonary nodule.
--- NOTE | 2018-11-15 08:11 | PN ---
PROGRESS NOTE This is a 72-year-old gentleman we saw yesterday in consultation. He came into the hospital with complaints of shortness of breath and a mild COPD exacerbation. He also was found to have significant hyperkalemia. He has a history of recent left upper lobe lung resection for lung cancer, status post 4 to 5 rounds of chemotherapy. The last chemotherapy treatment was about 9 to 10 days ago. He was found to have significant anemia and leukopenia. Currently doing much better. Feeling much better. His chest x-ray is much improved. It shows changes of COPD. There is some mild basilar atelectasis. Current vital signs are reviewed. Temperature 97.9, heart rate 82, respiratory rate 15, blood pressure 164/72, mean 102 and saturations on room air are 96%. He appears in no acute distress. He denies any significant cough or wheezing. Not producing any phlegm. HEENT examination is grossly unremarkable. Mucous membranes are moist. NECK: Supple. Full range of motion. No adenopathy or thyromegaly. Neck veins are flat. Cardiovascular examination reveals regular rhythm and rate. Heart rate 82 beats per minute. S1, S2 normal. Lungs reveal relatively clear, but diminished breath sounds. A few scattered mild rhonchi and wheezes. No crackles. Abdomen is soft. Bowel sounds are heard. Extremities are intact. No cyanosis, clubbing, or edema. Skin is without rash. Neurologic examination is brief but nonfocal. Labs are reviewed. He still remains leukopenic with a white count of 1.4, hemoglobin still low at 7.1, hematocrit 21.1, and platelet count is low normal at 127,000. Sodium 138, potassium 5.6, chloride 112, CO2 of 20, anion gap of 6. BUN and creatinine were 41 and 1.28 suggesting prerenal azotemia. We are going to add back his Lasix 20 mg a day. He was on it as an outpatient. Microbiologic studies are negative. Medications are reviewed. He is currently on Symbicort for his COPD. He is also getting his updrafts with DuoNeb. ASSESSMENT: 1. Shortness of breath, secondary to chronic obstructive pulmonary disease exacerbation, improved. 2. Hyperkalemia, with much better control at this time. 3. Recent left upper lobe lung resection for lung cancer, status post 4 to 5 rounds of chemotherapy, last one occurring 9 to 10 days ago. His surgery was done at [facility] by Dr. Yadav. 4. Profound leukopenia and anemia. 5. Chemotherapy induced bone marrow suppression. 6. History of deep venous thrombosis. 7. History of diabetes mellitus. 8. Coronary artery disease. 9. Prior history of pneumonia. 10.History of myocardial infarction. 11.Hyperlipidemia. 12.History of syncope. 13.Benign prostatic hypertrophy. PLAN: The patient is doing a bit better. The patient could be transferred to the oncology unit. We add back his Lasix to 20 mg a day. Will continue to monitor his electrolytes. He will continue on updrafts. His overall prognosis remains very guarded. Additional recommendations and suggestions are forthcoming. Will await oncology input. MMMARIYAL / IJN: [id number] /
[2018-11-15] MEDS: RIVAROXABAN 20 MG TAB PO SCH (08:20)
[2018-11-15] MEDS: PARoxetine 20 MG TAB PO SCH (08:20)
[2018-11-15] MEDS: amLODIPine 5 MG TAB PO SCH (08:20)
[2018-11-15] MEDS: ISOSORBIDE MONONITRATE ER 30 MG TAB.ER.24H PO SCH (08:20)
[2018-11-15] MEDS ORDERED: FUROSEMIDE 40 MG TAB PO SCH (09:00)
[2018-11-15] MEDS ORDERED: FUROSEMIDE 20 MG TAB PO SCH (09:00)
[2018-11-15] MEDS: SODIUM CHLORIDE 0.9% 1,000 ML IV SCH (09:34)
[2018-11-15] MEDS ORDERED: SODIUM POLYSTYRENE SULFONATE 15 GM/60 ML BOTTLE PO STA (10:18)
[2018-11-15 10:20] VITALS: BMI 25.7
--- NOTE | 2018-11-15 11:35 | P.PN ---
Subjective 72-year-old admitted the secondary to hyperkalemia lisinopril is being held patient is still hyperkalemic will give another dose of Paxil 8. Patient is wheezing a little bit today for which patient is already on Symbicort. We will monitor him on some regarding his still wheezes tomorrow we'll start him on oral prednisone. Possibly of discharge tomorrow. Constitutional: Denied any fatigue denied any fever. Cardio vascular: denied any chest pain, palpitations Gastrointestinal denied any nausea vomiting Pulmonary: Denied any shortness of breath cough Neurologic denied any new focal deficits All inpatient medications were reviewed and appropriate changes in these medications as dictated in the interval history and assessment and plan. Objective - Vital Signs Vital signs: Vital Signs Temp 97.9 F 11/15/18 04:00 Pulse 76 11/15/18 11:13 Resp 20 11/15/18 08:00 BP 151/84 11/15/18 08:00 Pulse Ox 97 11/15/18 08:00 Intake & Output 11/14/18 11/15/18 11/15/18 18:59 06:59 18:59 Intake Total 430 180 100 Output Total 1200 1500 250 Balance -770 -1320 -150 Weight 94 kg 88.5 kg 88.5 kg Intake: IV 20 180 Sodium Chloride 0.9% 1, 20 180 000 ml @ 100 mls/hr IV . Q10H [facility] Rx#:[id number] Intake, IV Titration 100 Amount Magnesium Sulfate-D5w Pmx 100 1 gm In Dextrose/Water 1 100ml.bag @ 100 mls/hr IVPB Q1H [facility] Rx#: [id number] Oral 100 Blood Product 310 Rc As-3 Unit 310 [id number] Output: Urine 1100 1500 250 Emesis 100 Other: Voiding Method Urinal Urinal - Exam PHYSICAL EXAMINATION: GENERAL: The patient is alert and oriented x3, not in any acute distress. Well developed, well nourished. HEENT: Pupils are round and equally reacting to light. EOMI. No scleral icterus. No conjunctival pallor. Normocephalic, atraumatic. No pharyngeal erythema. No thyromegaly. CARDIOVASCULAR: S1 and S2 present. No murmurs, rubs, or gallops. PULMONARY: Good air entry into bilateral lung wright minimal expiratory wheezing on exam ABDOMEN: Soft, nontender, nondistended, normoactive bowel sounds. No palpable organomegaly. MUSCULOSKELETAL: No joint swelling or deformity. EXTREMITIES: No cyanosis, clubbing, or pedal edema. NEUROLOGICAL: Gross neurological examination did not reveal any focal deficits. SKIN: No rashes. - Labs CBC & Chem 7: 11/15/18 03:55 11/15/18 03:55 Labs: Abnormal Lab Results - Last 24 Hours (Table) 11/13/18 11/14/18 11/14/18 Range/Units 20:36 06:19 11:43 WBC (3.8-10.6) k/uL RBC (4.30-5.90) m/uL Hgb (13.0-17.5) gm/dL Hct (39.0-53.0) % RDW (11.5-15.5) % Plt Count (150-450) k/uL Neutrophils # (1.3-7.7) k/uL Lymphocytes # (1.0-4.8) k/uL Potassium (3.5-5.1) mmol/L Chloride (98-107) mmol/L Carbon Dioxide (22-30) mmol/L BUN (9-20) mg/dL Creatinine (0.66-1.25) mg/dL Glucose (74-99) mg/dL POC Glucose (mg/dL) 245 H (75-99) mg/dL Hemoglobin A1c 11.1 H (4.0-6.0) % Crossmatch See Detail 11/14/18 11/14/18 11/14/18 Range/Units 15:00 15:00 16:55 WBC 1.4 L* (3.8-10.6) k/uL RBC 2.27 L (4.30-5.90) m/uL Hgb 6.9 L* (13.0-17.5) gm/dL Hct 20.5 L (39.0-53.0) % RDW 16.3 H (11.5-15.5) % Plt Count 121 L (150-450) k/uL Neutrophils # 0.9 L (1.3-7.7) k/uL Lymphocytes # 0.3 L (1.0-4.8) k/uL Potassium 5.6 H (3.5-5.1) mmol/L Chloride (98-107) mmol/L Carbon Dioxide (22-30) mmol/L BUN (9-20) mg/dL Creatinine (0.66-1.25) mg/dL Glucose (74-99) mg/dL POC Glucose (mg/dL) 242 H (75-99) mg/dL Hemoglobin A1c (4.0-6.0) % Crossmatch 11/14/18 11/15/18 11/15/18 Range/Units 20:18 03:33 03:55 WBC 1.4 L* (3.8-10.6) k/uL RBC 2.34 L (4.30-5.90) m/uL Hgb 7.1 L (13.0-17.5) gm/dL Hct 21.1 L (39.0-53.0) % RDW 16.1 H (11.5-15.5) % Plt Count 127 L (150-450) k/uL Neutrophils # (1.3-7.7) k/uL Lymphocytes # (1.0-4.8) k/uL Potassium (3.5-5.1) mmol/L Chloride (98-107) mmol/L Carbon Dioxide (22-30) mmol/L BUN (9-20) mg/dL Creatinine (0.66-1.25) mg/dL Glucose (74-99) mg/dL POC Glucose (mg/dL) 228 H 189 H (75-99) mg/dL Hemoglobin A1c (4.0-6.0) % Crossmatch 11/15/18 11/15/18 Range/Units 03:55 06:36 WBC (3.8-10.6) k/uL RBC (4.30-5.90) m/uL Hgb (13.0-17.5) gm/dL Hct (39.0-53.0) % RDW (11.5-15.5) % Plt Count (150-450) k/uL Neutrophils # (1.3-7.7) k/uL Lymphocytes # (1.0-4.8) k/uL Potassium 5.6 H (3.5-5.1) mmol/L Chloride 112 H (98-107) mmol/L Carbon Dioxide 20 L (22-30) mmol/L BUN 41 H (9-20) mg/dL Creatinine 1.28 H (0.66-1.25) mg/dL Glucose 170 H (74-99) mg/dL POC Glucose (mg/dL) 152 H (75-99) mg/dL Hemoglobin A1c (4.0-6.0) % Crossmatch Assessment and Plan Plan: -Generalized weakness and tiredness: Secondary to anemia which is again secondary to chemotherapy patient received blood transfusion and hemoglobin is 7.1 minimal pleural effusion on the right side because of which IV fluids are being discontinued -Neutropenia secondary to chemotherapy -Hyperkalemia secondary to lisinopril, renal failure improved minimal pleural effusions because of which IV fluids were discontinued -Hypomagnesemia magnesium was supplemented -Acute renal failure: Secondary to intravascular depletion improved now this can urine IV fluids -History of lung cancer for which patient received treatment as mentioned above -Coronary artery disease -COPD with minimal exacerbation continue with inhaled steroids if needed will start him on oral steroids -History of DVT for which patient is on oral anti-correlation which will be continued Abdomen benign prostatic hypertrophy -Hyperlipidemia
[2018-11-15 11:51] LABS: Glucose,Whole Blood 163 mg/dL (75-99)
[2018-11-15] MEDS ORDERED: MAGNESIUM SULFATE-D5W PMX 1 GM in DEXTROSE/WATER 1 100ML.BAG IVPB ONE (12:00)
[2018-11-15 16:52] LABS: Glucose,Whole Blood 139 mg/dL (75-99)
[2018-11-15 20:12] LABS: Glucose,Whole Blood 180 mg/dL (75-99)
[2018-11-15] MEDS: INSULIN DETEMIR 100 UNIT/ML 10 ML VIAL SQ SCH (21:11)
--- NOTE | 2018-11-15 21:32 | P.CONS ---
History of Present Illness - Reason for Consult Consult date: 11/15/18 lung cancer Requesting physician: Omega Bruno - Chief Complaint hyperkalemia - History of Present Illness This is a very nice patient,known to have SKY lung nodule,monitored by Dr Boyer ,which increased in size on follow up CT scan in May/2018,he underwent diagnostic bronchoscopy on 05/30/2018,which was not diagnostic,on 06/08/2018,he had a PET scan which revealed suspicious uptake in 2.8cm mass in SKY. 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 He recovered from surgery well,he has chronic exertional dyspnea,fatigue,has COPD and insulin dependent diabetes. He is status post cycle 3, day one of carboplatin and gemsar on November 06, 2018. He was admitted with acute renal failure, pancytopenia. Hemoglobin was 7.6 , after dilution went to 6.1, today 7.1. WBC has mildly increased to 1.4, although he is still neutropenic and did not receive GCSF as he only received day one of treatment cycle. Patient clinically looked good today on interview, he is discouraged with the effects of treatment. His family is pushing for "natural cures" and he feels torn on what to do. We discussed focusing on feeling better right now and further having treatment discussion with primary Oncologist Dr. Martin. Review of Systems A 14 point review of systems assessed and completed and all negative except HPI Past Medical History Past Medical History: Coronary Artery Disease (CAD), COPD, CVA/TIA, Diabetes Mellitus, Deep Vein Thrombosis (DVT), Hyperlipidemia, Hypertension, Myocardial Infarction (AZ), Pneumonia, Prostate Disorder, Syncope Additional Past Medical History / Comment(s): COPD, diabetes mellitus type 2, BPH, left upper lobe lesion measuring 1.9 x 1.6 cm in size and not showing any metabolic activity, coronary artery disease with previous AZ, diabetes mellitus , hypertension, hyperlipidemia, chronic back pain, BPH Last Myocardial Infarction Date:: 05/24/12 History of Any Multi-Drug Resistant Organisms: None Reported Past Surgical History: Back Surgery, Cholecystectomy, Heart Catheterization, Hernia Repair Additional Past Surgical History / Comment(s): 2011 cardiac cath-treated medically, low back surgery, ROBERTO CATARACT SX, abdominal hernia repair, bilateral cataract removal, bronchoscopy. left upper lobe of lung removed 07/2018 Past Anesthesia/Blood Transfusion Reactions: No Reported Reaction Past Psychological History: Anxiety, Depression Additional Psychological History / Comment(s): PAtient lives with son. 05/05/18: Pt. denies anxiety at this time Smoking Status: Former smoker Past Alcohol Use History: None Reported Additional Past Alcohol Use History / Comment(s): Pt started smoking in 1960 and quit in 1995. He was a 2ppd smoker. Past Drug Use History: None Reported - Past Family History Mother Family Medical History: No Reported History Father Family Medical History: Diabetes Mellitus Additional Family Medical History / Comment(s): Father of diabetes at the age of 83 yrs. Medications and Allergies Home Medications Medication Instructions Recorded Confirmed Type amLODIPine [Norvasc] 5 mg PO DAILY 07/09/14 11/13/18 History PARoxetine [Paxil] 20 mg PO DAILY 11/15/14 11/13/18 History Furosemide [Lasix] 20 mg PO DAILY 08/31/18 11/13/18 History Rivaroxaban [Xarelto] 20 mg PO DAILY 08/31/18 11/13/18 History Isosorbide Mononitrate ER [Imdur] 30 mg PO DAILY 10/05/18 11/13/18 History Lisinopril [Zestril] 10 mg PO DAILY 10/05/18 11/13/18 History Albuterol Nebulized [Ventolin 2.5 mg INHALATION RT-TID PRN 11/13/18 11/13/18 History Nebulized] Insulin Detemir [Levemir Flextouch] 72 units SQ HS 11/13/18 11/13/18 History Fluticasone/Salmeterol [Advair Hfa 2 puff INHALATION RT-BID 11/14/18 11/14/18 History 115-21 Mcg Inhaler] Allergies Allergy/AdvReac Type Severity Reaction Status Date / Time No Known Allergies Allergy Verified 11/13/18 20:44 Physical Exam Vitals: Vital Signs Temp Pulse Resp BP Pulse Ox 11/15/18 12:00 68 18 160/79 98 11/15/18 11:13 76 11/15/18 11:06 72 11/15/18 08:00 81 20 151/84 97 11/15/18 07:00 80 11/15/18 06:52 82 11/15/18 06:00 99 29 H 152/70 95 11/15/18 04:00 97.9 F 82 15 164/72 96 11/15/18 02:00 90 15 132/62 97 11/15/18 00:00 98.2 F 81 19 144/64 95 11/14/18 22:00 82 18 132/61 96 11/14/18 20:10 80 18 132/61 98 11/14/18 20:00 97.4 F L 76 18 139/71 97 11/14/18 19:40 79 11/14/18 19:30 79 11/14/18 16:00 98.3 F 81 14 138/70 98 Intake and Output 11/15/18 11/15/18 11/15/18 06:59 14:59 22:59 Intake Total 160 600 Output Total 1250 250 Balance -1090 350 Intake: IV 160 Sodium Chloride 0.9% 1, 160 000 ml @ 100 mls/hr IV . Q10H [facility] Rx#:[id number] Oral 600 Output: Urine 1250 250 Other: Voiding Method Urinal Urinal # Voids 2 Weight 88.5 kg 88.5 kg - Constitutional General appearance: cooperative, no acute distress - EENT Eyes: EOMI, PERRLA ENT: NA/AT, normal oropharynx - Respiratory Respiratory: bilateral: CTA, diminished (bbasilar) - Cardiovascular Rhythm: regular Heart sounds: normal: S1, S2 - Gastrointestinal General gastrointestinal: normal bowel sounds, soft - Integumentary edema lower extremities resolved no palpable lymphadenopathy noted Integumentary: pale - Neurologic Neurologic: CNII-XII intact - Musculoskeletal Musculoskeletal: generalized weakness, strength equal bilaterally - Psychiatric Psychiatric: A&O x's 3, appropriate affect, intact judgment & insight Results CBC & Chem 7: 11/15/18 03:55 11/15/18 03:55 Labs: Abnormal Lab Results - Last 24 Hours (Table) 11/13/18 11/14/18 11/14/18 Range/Units 20:36 15:00 16:55 WBC 1.4 L* (3.8-10.6) k/uL RBC 2.27 L (4.30-5.90) m/uL Hgb 6.9 L* (13.0-17.5) gm/dL Hct 20.5 L (39.0-53.0) % RDW 16.3 H (11.5-15.5) % Plt Count 121 L (150-450) k/uL Neutrophils # 0.9 L (1.3-7.7) k/uL Lymphocytes # 0.3 L (1.0-4.8) k/uL Potassium (3.5-5.1) mmol/L Chloride (98-107) mmol/L Carbon Dioxide (22-30) mmol/L BUN (9-20) mg/dL Creatinine (0.66-1.25) mg/dL Glucose (74-99) mg/dL POC Glucose (mg/dL) 242 H (75-99) mg/dL Hemoglobin A1c 11.1 H (4.0-6.0) % 11/14/18 11/15/18 11/15/18 Range/Units 20:18 03:33 03:55 WBC 1.4 L* (3.8-10.6) k/uL RBC 2.34 L (4.30-5.90) m/uL Hgb 7.1 L (13.0-17.5) gm/dL Hct 21.1 L (39.0-53.0) % RDW 16.1 H (11.5-15.5) % Plt Count 127 L (150-450) k/uL Neutrophils # (1.3-7.7) k/uL Lymphocytes # (1.0-4.8) k/uL Potassium (3.5-5.1) mmol/L Chloride (98-107) mmol/L Carbon Dioxide (22-30) mmol/L BUN (9-20) mg/dL Creatinine (0.66-1.25) mg/dL Glucose (74-99) mg/dL POC Glucose (mg/dL) 228 H 189 H (75-99) mg/dL Hemoglobin A1c (4.0-6.0) % 11/15/18 11/15/18 11/15/18 Range/Units 03:55 06:36 11:49 WBC (3.8-10.6) k/uL RBC (4.30-5.90) m/uL Hgb (13.0-17.5) gm/dL Hct (39.0-53.0) % RDW (11.5-15.5) % Plt Count (150-450) k/uL Neutrophils # (1.3-7.7) k/uL Lymphocytes # (1.0-4.8) k/uL Potassium 5.6 H (3.5-5.1) mmol/L Chloride 112 H (98-107) mmol/L Carbon Dioxide 20 L (22-30) mmol/L BUN 41 H (9-20) mg/dL Creatinine 1.28 H (0.66-1.25) mg/dL Glucose 170 H (74-99) mg/dL POC Glucose (mg/dL) 152 H 163 H (75-99) mg/dL Hemoglobin A1c (4.0-6.0) % Assessment and Plan Plan: Assessment and Recs: 1. Pancytopenia: chemotherapy induced: - Continue transfusion support to keep hemoglobin greater than 7 - I have started zarxio for his his neutropenia as he did not receive neulasta this cycle - Platlets stable no intervention needed 2. Acute Renal Failure: Per nephrology 3. Lung Cancer currently receiving adjuvant therapy with Dr Martin: - Discuss at follow-up as outpatient
[2018-11-15] MEDS ORDERED: hydrALAZINE HCL 20 MG/ML 1 ML VIAL IVP PRN (21:59)
[2018-11-15] MEDS: METOPROLOL TARTRATE 25 MG TAB PO SCH (22:34)
[2018-11-15] MEDS: FILGRASTIM-SNDZ 480 MCG/0.8 ML SYRINGE SQ SCH (22:34)
[2018-11-16 05:18] LABS: Glucose,Whole Blood 58 mg/dL (75-99)
[2018-11-16 06:05] LABS: Glucose,Whole Blood 65 mg/dL (75-99)
[2018-11-16 06:59] LABS: Glucose,Whole Blood 75 mg/dL (75-99)
[2018-11-16 07:09] LABS: Anisocytosis Slight; Basophils % (A) 0 %; Eosinophils # (A) 0.1 k/uL (0-0.7); Eosinophils % (A) 1 %; HCT 23.3 % (39.0-53.0); HGB 7.8 gm/dL (13.0-17.5); Lymphocytes # (A) 0.3 k/uL (1.0-4.8); Lymphocytes % (A) 5 %; MCH 30.2 pg (25.0-35.0); MCHC 33.5 g/dL (31.0-37.0); MCV 90.2 fL (80.0-100.0); Mean Platelet Volume 7.4; Monocytes # (A) 0.2 k/uL (0-1.0); Monocytes % (A) 3 %; Neutrophils # (A) 6.8 k/uL (1.3-7.7); Neutrophils % (A) 90 %; Platelet Count 117 k/uL (150-450); RBC 2.59 m/uL (4.30-5.90); RDW 16.6 % (11.5-15.5); WBC 7.5 k/uL (3.8-10.6)
[2018-11-16 07:26] LABS: Albumin 3.5 g/dL (3.5-5.0); Calcium 9.6 mg/dL (8.4-10.2); Magnesium 1.6 mg/dL (1.6-2.3); Phosphorus 3.6 mg/dL (2.5-4.5); Total Bilirubin 0.4 mg/dL (0.2-1.3)
[2018-11-16] MEDS: IPRATROPIUM-ALBUTEROL 3 ML NEB INHALATION PRN ×2 (08:56→12:47)
[2018-11-16] MEDS: SYMBICORT 160-4.5 MCG INHALER INHALATION SCH (08:57)
[2018-11-16] MEDS: INSULIN ASPART 100 UNIT/ML 1 ML 10 ML VIAL SQ SCH ×2 (09:10→13:08)
[2018-11-16] MEDS: METOPROLOL TARTRATE 25 MG TAB PO SCH (09:12)
[2018-11-16] MEDS: ISOSORBIDE MONONITRATE ER 30 MG TAB.ER.24H PO SCH (09:13)
[2018-11-16] MEDS: amLODIPine 5 MG TAB PO SCH (09:13)
[2018-11-16] MEDS: RIVAROXABAN 20 MG TAB PO SCH (09:13)
[2018-11-16] MEDS: FILGRASTIM-SNDZ 480 MCG/0.8 ML SYRINGE SQ SCH (11:52)
[2018-11-16] MEDS: PARoxetine 20 MG TAB PO SCH (11:52)
[2018-11-16 12:08] LABS: Glucose,Whole Blood 271 mg/dL (75-99)
--- NOTE | 2018-11-16 13:35 | P.PN ---
Subjective Progress Note Date: 11/16/18 Principal diagnosis: Acute exacerbation of chronic obstructive pulmonary disease This is a very pleasant 72-year-old gentleman admitted back on 11/13/2018 for suspected exacerbation of chronic obstructive pulmonary disease. He is also found to be hyperkalemic. He has a history of recent left upper lobe lung resection status post chemotherapy receiving 4 out of 5 rounds thus far. Last chemo treatment 9-10 days ago. He is seen again in follow-up on the oncology unit. He is currently resting comfortably in bed. He is awake and alert in no acute distress. He is maintaining good O2 saturations in the 90s on room air. He's been afebrile. Hemodynamically stable. Count 7.5. Hemoglobin 7.8. Creatinine 1.25. Objective - Vital Signs Vital signs: Vital Signs Temp 98.0 F 11/16/18 08:00 Pulse 82 11/16/18 12:57 Resp 22 11/16/18 08:00 BP 162/70 11/16/18 08:00 Pulse Ox 96 11/16/18 08:00 Intake & Output 11/15/18 11/16/18 11/16/18 18:59 06:59 18:59 Intake Total 900 240 Output Total 250 175 275 Balance 650 -175 -35 Weight 88.5 kg Intake: Oral 900 240 Output: Urine 250 175 175 Emesis 100 Other: Voiding Method Urinal Urinal # Voids 2 3 - Exam GENERAL EXAM: Alert, active, comfortable in no apparent distress. On room air. HEAD: Normocephalic. EYES: Normal reaction of pupils, equal size. NOSE: Clear with pink turbinates. THROAT: No erythema or exudates. NECK: No masses, no JVD. CHEST: No chest wall deformity. LUNGS: Equal air entry with no crackles, wheeze, rhonchi or dullness. CVS: S1 and S2 normal with no audible murmur, regular rhythm. ABDOMEN: No hepatosplenomegaly, normal bowel sounds, no guarding or rigidity. SPINE: No scoliosis or deformity SKIN: No rashes CENTRAL NERVOUS SYSTEM: No focal deficits, tone is normal in all 4 extremities. EXTREMITIES: There is no peripheral edema. No clubbing, no cyanosis. Peripheral pulses are intact. - Labs CBC & Chem 7: 11/16/18 06:23 11/16/18 06:27 Labs: Abnormal Lab Results - Last 24 Hours (Table) 11/15/18 11/15/18 11/16/18 Range/Units 16:50 20:11 05:17 RBC (4.30-5.90) m/uL Hgb (13.0-17.5) gm/dL Hct (39.0-53.0) % RDW (11.5-15.5) % Plt Count (150-450) k/uL Lymphocytes # (1.0-4.8) k/uL Chloride (98-107) mmol/L BUN (9-20) mg/dL Glucose (74-99) mg/dL POC Glucose (mg/dL) 139 H 180 H 58 L (75-99) mg/dL Total Protein (6.3-8.2) g/dL 11/16/18 11/16/18 11/16/18 Range/Units 06:04 06:23 06:27 RBC 2.59 L (4.30-5.90) m/uL Hgb 7.8 L (13.0-17.5) gm/dL Hct 23.3 L (39.0-53.0) % RDW 16.6 H (11.5-15.5) % Plt Count 117 L (150-450) k/uL Lymphocytes # 0.3 L (1.0-4.8) k/uL Chloride 110 H (98-107) mmol/L BUN 34 H (9-20) mg/dL Glucose 60 L (74-99) mg/dL POC Glucose (mg/dL) 65 L (75-99) mg/dL Total Protein 6.0 L (6.3-8.2) g/dL 11/16/18 Range/Units 12:06 RBC (4.30-5.90) m/uL Hgb (13.0-17.5) gm/dL Hct (39.0-53.0) % RDW (11.5-15.5) % Plt Count (150-450) k/uL Lymphocytes # (1.0-4.8) k/uL Chloride (98-107) mmol/L BUN (9-20) mg/dL Glucose (74-99) mg/dL POC Glucose (mg/dL) 271 H (75-99) mg/dL Total Protein (6.3-8.2) g/dL Assessment and Plan Assessment: Pression: #1 Acute exacerbation of chronic obstructive pulmonary disease. Recovered. #2 Hyperkalemia, recovered current potassium 5.0. #3 Recent left upper lobe lung resection for cancer. Status post 4-5 rounds of chemotherapy. Surgery was done at [facility]. #4 Profound leukopenia and anemia, improved. #5 Chemotherapy-induced bone marrow suppression. #6 History of DVT. #7 Diabetes mellitus. #8 Coronary disease. #9 Hyperlipidemia. #10 Benign prostatic hypertrophy. Plan: The patient was seen and evaluated by Dr. Mccain. The patient is stable from the pulmonary standpoint and could be discharged home on his usual pulmonary medications. He'll follow-up in the office in 1-2 weeks' time. He is encouraged to call sooner with any recurrence of symptoms or other questions or concerns. I, the cosigning physician, performed a history & physical examination of the patient. Lungs sounds are clear. Diminished. Maintaining good O2 saturations in the 90s on room air. I discussed the assessment and plan of care with my nurse practitioner, Nohemi Garcia. I attest to the above note as dictated by her.
[2018-11-16 14:04] VITALS: BP 150/59; PULSE 74; RESP 18; TEMP 97.8
--- NOTE | 2018-11-16 15:21 | P.DS ---
Providers Date of admission: 11/13/18 23:17 Attending physician: Lawson Kent Consults: 11/14/18 11:04 Consult Physician Routine Consulting Provider: Rickey Snider Consult Reason/Comments: ICU management Do you want consulting provider notified?: Yes 11/14/18 11:05 Consult Physician Routine Consulting Provider: Thai Hinton Consult Reason/Comments: Lung cancer Do you want consulting provider notified?: Yes Primary care physician: [facility] Course: 72-year-old admitted the secondary to hyperkalemia lisinopril is being held patient is still hyperkalemic will give another dose of kayexalate. Patient is wheezing a little bit today for which patient is already on Symbicort. We will monitor him on some regarding his still wheezes tomorrow we'll start him on oral prednisone. Possibly of discharge tomorrow. 11/16/2018 Patient still has some wheezes but significantly improved compared to yesterday patient is otherwise clinically doing well will be discharged today lisinopril will be discontinued and dose of amlodipine will be increased PHYSICAL EXAMINATION: GENERAL: The patient is alert and oriented x3, not in any acute distress. Well developed, well nourished. HEENT: Pupils are round and equally reacting to light. EOMI. No scleral icterus. No conjunctival pallor. Normocephalic, atraumatic. No pharyngeal erythema. No thyromegaly. CARDIOVASCULAR: S1 and S2 present. No murmurs, rubs, or gallops. PULMONARY: Good air entry into bilateral lung wright minimal expiratory wheezing on exam ABDOMEN: Soft, nontender, nondistended, normoactive bowel sounds. No palpable organomegaly. MUSCULOSKELETAL: No joint swelling or deformity. EXTREMITIES: No cyanosis, clubbing, or pedal edema. NEUROLOGICAL: Gross neurological examination did not reveal any focal deficits. SKIN: No rashes. Assessment and Plan Plan: -Generalized weakness and tiredness: Secondary to anemia which is again secondary to chemotherapy . -Neutropenia secondary to chemotherapy improved with congestive leading factor -Hyperkalemia secondary to lisinopril, renal failure improved minimal pleural effusions because of which IV fluids were discontinued -Hypomagnesemia magnesium was supplemented -Acute renal failure: Secondary to intravascular depletion improved -History of lung cancer for which patient received treatment -Coronary artery disease -COPD with minimal exacerbation continue with inhaled steroids -History of DVT for which patient is on oral anti-coagulation which will be continued Abdomen benign prostatic hypertrophy -Hyperlipidemia Patient Condition at Discharge: Fair Plan - Discharge Summary New Discharge Prescriptions: New Budesonide-Formot 160-4.5 Mcg [Symbicort 160-4.5 Mcg Inhaler] 2 puff INHALATION RT-BID #1 inhaler Metoprolol Tartrate [Lopressor] 25 mg PO BID #60 tab Continue PARoxetine [Paxil] 20 mg PO DAILY Rivaroxaban [Xarelto] 20 mg PO DAILY Furosemide [Lasix] 20 mg PO DAILY Isosorbide Mononitrate ER [Imdur] 30 mg PO DAILY Albuterol Nebulized [Ventolin Nebulized] 2.5 mg INHALATION RT-TID PRN PRN Reason: Shortness Of Breath Insulin Detemir [Levemir Flextouch] 72 units SQ HS Fluticasone/Salmeterol [Advair Hfa 115-21 Mcg Inhaler] 2 puff INHALATION RT- BID Changed amLODIPine [Norvasc] 10 mg PO DAILY #0 Discontinued Lisinopril [Zestril] 10 mg PO DAILY Discharge Medication List PARoxetine [Paxil] 20 mg PO DAILY 11/15/14 [History] Furosemide [Lasix] 20 mg PO DAILY 08/31/18 [History] Rivaroxaban [Xarelto] 20 mg PO DAILY 08/31/18 [History] Isosorbide Mononitrate ER [Imdur] 30 mg PO DAILY 10/05/18 [History] Albuterol Nebulized [Ventolin Nebulized] 2.5 mg INHALATION RT-TID PRN 11/13/18 [ History] Insulin Detemir [Levemir Flextouch] 72 units SQ HS 11/13/18 [History] Fluticasone/Salmeterol [Advair Hfa 115-21 Mcg Inhaler] 2 puff INHALATION RT-BID 11/14/18 [History] Budesonide-Formot 160-4.5 Mcg [Symbicort 160-4.5 Mcg Inhaler] 2 puff INHALATION RT-BID #1 inhaler 11/16/18 [Rx] Metoprolol Tartrate [Lopressor] 25 mg PO BID #60 tab 11/16/18 [Rx] amLODIPine [Norvasc] 10 mg PO DAILY #0 11/16/18 [Rx] Follow up Appointment(s)/Referral(s): Renzo Boyer MD [Primary Care Provider] - 3 Days Patient Instructions/Handouts: Metoprolol (By mouth), Budesonide/Formoterol ( By breathing), Hyperkalemia (DC) Activity/Diet/Wound Care/Special Instructions: limited activity until seen by Doctor diet as tolerated Follow up with Dr. Hinton office as scheduled Discharge Disposition: HOME SELF-CARE
== END 2018-11-16 15:42 | disposition home or self-care (01) | DRG 191 ==
LOC: EC 18:35 → 2SICU 23:17 → 3NMEDONC 11-15 21:03
PROVIDERS: ADMIT Hospitalist; ATTEND Hospitalist
DX: J44.1 Chronic obstructive pulmonary disease with (acute) exacerbation (principal); C34.90 Malignant neoplasm of unspecified part of unspecified bronchus or lung; J98.11 Atelectasis; N17.9 Acute kidney failure, unspecified; D64.81 Anemia due to antineoplastic chemotherapy; D70.1 Agranulocytosis secondary to cancer chemotherapy; E11.9 Type 2 diabetes mellitus without complications; E78.5 Hyperlipidemia, unspecified; E83.42 Hypomagnesemia; E87.5 Hyperkalemia; F32.9 Major depressive disorder, single episode, unspecified; F41.9 Anxiety disorder, unspecified; I10 Essential (primary) hypertension; I25.10 Atherosclerotic heart disease of native coronary artery without angina pectoris; I25.2 Old myocardial infarction; N40.0 Benign prostatic hyperplasia without lower urinary tract symptoms; T45.1X5A Adverse effect of antineoplastic and immunosuppressive drugs, initial encounter; T46.4X5A Adverse effect of angiotensin-converting-enzyme inhibitors, initial encounter; Z79.01 Long term (current) use of anticoagulants; Z79.4 Long term (current) use of insulin; Z79.51 Long term (current) use of inhaled steroids; Z79.899 Other long term (current) drug therapy; Z83.3 Family history of diabetes mellitus; Z85.118 Personal history of other malignant neoplasm of bronchus and lung; Z86.718 Personal history of other venous thrombosis and embolism; Z86.73 Personal history of transient ischemic attack (TIA), and cerebral infarction without residual deficits; Z87.01 Personal history of pneumonia (recurrent); Z87.891 Personal history of nicotine dependence; Z90.2 Acquired absence of lung [part of]; Z98.42 Cataract extraction status, left eye; Z98.41 Cataract extraction status, right eye; Z90.49 Acquired absence of other specified parts of digestive tract
CPT/HCPCS: 36415; 71045; 80048; 80053; 82550; 83036; 83735; 84100; 84132; 84550; 85025; 85027; 86850; 86900; 86901; 86920; 94640; 94644; 96361; 96365; 96366; 96375; 99285

== ENCOUNTER → 2018-11-13 | Outpatient (CLI) | payer MEDICARE, OTHER ==
[2018-11-13 11:50] LABS: Anisocytosis Slight; Basophils % (A) 1 %; Eosinophils # (A) 0.1 k/uL (0-0.7); Eosinophils % (A) 5 %; HCT 20.8 % (39.0-53.0); HGB 7.1 gm/dL (13.0-17.5); Lymphocytes # (A) 0.3 k/uL (1.0-4.8); Lymphocytes % (A) 24 %; MCH 31.2 pg (25.0-35.0); MCV 91.7 fL (80.0-100.0); Mean Platelet Volume 7.5; Monocytes % (A) 2 %; Neutrophils # (A) 0.8 k/uL (1.3-7.7); Neutrophils % (A) 65 %; RBC 2.27 m/uL (4.30-5.90); RDW 16.4 % (11.5-15.5)
[2018-11-13 11:53] LABS: Platelet Count 233 k/uL (150-450); WBC 1.2 k/uL (3.8-10.6)
[2018-11-13 17:14] LABS: Albumin 3.8 g/dL (3.80-4.90); Anion Gap 6.4 mmol/L (4.00-12.00); Calcium 8.7 mg/dL (8.7-10.3); Carbon Dioxide 22.6 mmol/L (21.6-31.8); Globulin 1.9 g/dL (1.6-3.3); Potassium 5.9 mmol/L (3.5-5.5); Total Bilirubin 0.2 mg/dL (0.2-1.2); Total Protein 5.7 g/dL (6.2-8.2)
== END | disposition home or self-care (01) ==
LOC: LABWHC1 10:10
PROVIDERS: ATTEND Internal Medicine
DX: D89.9 Disorder involving the immune mechanism, unspecified (principal); R53.1 Weakness; Z79.899 Other long term (current) drug therapy
CPT/HCPCS: 36415; 80053; 85025

== ENCOUNTER 2019-01-26 14:59 | Inpatient (IN) | payer MEDICARE, OTHER ==
--- NOTE | 2019-01-26 15:44 | ED ---
General Adult HPI - General Chief complaint: Weakness Stated complaint: Shakes Time Seen by Provider: 01/26/19 15:13 Source: patient Mode of arrival: wheelchair Limitations: no limitations - History of Present Illness Initial comments: Dictation was produced using [employer] dictation software. please excuse any grammatical, word or spelling errors. Chief Complaint: 73-year-old male past medical history of coronary artery dis ease, COPD, DVT, diabetes, [place] presents with shakiness and worsening cough and dyspnea. History of Present Illness: 73-year-old male who presents with 1 day of chief complaint of tremors to his right upper extremity, worsening cough and dyspnea. She reports that his symptoms have been ongoing for approximately 24 hours. Last night he went to bed and felt fine. He states he woke up this morning with the symptoms. Patient's been coughing. Denies any nausea vomiting or abdominal pain. No chest pain. Feels short of breath that is worse with exertion. Denies any overt sick contacts. No sore throat. Denies any fever, chills or night sweats. The ROS documented in this emergency department record has been reviewed and confirmed by me. Those systems with pertinent positive or negative responses have been documented in the HPI. All other systems are other negative and/or noncontributory. PHYSICAL EXAM: General Impression: Alert and oriented x3, not in acute distress HEENT: Normocephalic atraumatic, extra-ocular movements intact, pupils equal and reactive to light bilaterally, mucous membranes moist. Cardiovascular: Heart regular rate and rhythm, S1&S2 audible, no murmurs, rubs or gallops Chest: Mild bilateral wheezing Abdomen: Bowel sounds present, abdomen soft, non-tender, non-distended, no organomegaly Musculoskeletal: Pulses present and equal in all extremities, 2+ pitting edema to bilateral pretibial area. Motor: no focal deficits noted Neurological: CN II-XII grossly intact, no focal motor or sensory deficits noted, mild non-intention tremor Skin: Intact with no visualized rashes Psych: Normal affect and mood ED course: 73-year-old male presents with total body tremors, and respiratory symptoms.Patient has history of COPD and lung cancer status post lung resection. Patient states she is cancer free that was seen on PET scan a couple months ago. Laboratory evaluation obtained. No leukocytosis. Hemoglobin stable. Metabolic panel is unremarkable. Prematurity peptide is 155. Glucose is 410. More history was obtained from family patient has been living by himself and has been noncompliant with his medications. Chest x-ray was unremarkable for acute processes how there is some nodularity in the right upper lobe stable since November. Concerned that this may reflect no cancer lesion. Patient given breathing treatment, Decadron and breathing treatment. Clinical presentation is concerning for COPD exacerbation. Patient hemodynamically stable at this time however he does have low-grade temperature. Patient given azithromycin as well. Patient be admitted. Pending EKG. - Related Data Home Medications Medication Instructions Recorded Confirmed PARoxetine [Paxil] 20 mg PO DAILY 11/15/14 01/26/19 Furosemide [Lasix] 20 mg PO DAILY 08/31/18 01/26/19 Rivaroxaban [Xarelto] 20 mg PO DAILY 08/31/18 01/26/19 Isosorbide Mononitrate ER [Imdur] 30 mg PO DAILY 10/05/18 01/26/19 Insulin Detemir [Levemir Flextouch] 72 units SQ HS 11/13/18 01/26/19 Lisinopril [Prinivil] 10 mg PO DAILY 01/26/19 01/26/19 amLODIPine [Norvasc] 5 mg PO DAILY 01/26/19 01/26/19 Previous Rx's Medication Instructions Recorded Budesonide-Formot 160-4.5 Mcg 2 puff INHALATION RT-BID #1 inhaler 11/16/18 [Symbicort 160-4.5 Mcg Inhaler] Allergies Allergy/AdvReac Type Severity Reaction Status Date / Time No Known Allergies Allergy Verified 01/26/19 15:07 Review of Systems ROS Statement: Those systems with pertinent positive or pertinent negative responses have been documented in the HPI. ROS Other: All systems not noted in ROS Statement are negative. Past Medical History Past Medical History: Coronary Artery Disease (CAD), COPD, CVA/TIA, Diabetes Mellitus, Deep Vein Thrombosis (DVT), Hyperlipidemia, Hypertension, Myocardial Infarction ([place]), Pneumonia, Prostate Disorder, Syncope Additional Past Medical History / Comment(s): COPD, diabetes mellitus type 2, BPH, left upper lobe lesion measuring 1.9 x 1.6 cm in size and not showing any metabolic activity, coronary artery disease with previous [place], diabetes mellitus, hypertension, hyperlipidemia, chronic back pain, BPH Last Myocardial Infarction Date:: 05/24/12 History of Any Multi-Drug Resistant Organisms: None Reported Past Surgical History: Back Surgery, Cholecystectomy, Heart Catheterization, Hernia Repair Additional Past Surgical History / Comment(s): 2011 cardiac cath-treated medically, low back surgery, ROBERTO CATARACT SX, abdominal hernia repair, bilateral cataract removal, bronchoscopy. left upper lobe of lung removed 07/2018 Past Anesthesia/Blood Transfusion Reactions: No Reported Reaction Past Psychological History: Anxiety, Depression Smoking Status: Former smoker Past Alcohol Use History: None Reported Past Drug Use History: None Reported - Past Family History Mother Family Medical History: No Reported History Father Family Medical History: Diabetes Mellitus Additional Family Medical History / Comment(s): Father of diabetes at the age of 83 yrs. General Exam Limitations: no limitations Course Vital Signs 01/26/19 01/26/19 15:01 17:02 Temperature 100.5 F H 99.1 F Pulse Rate 102 H 86 Respiratory 18 18 Rate Blood Pressure 181/84 184/101 O2 Sat by Pulse 95 99 Oximetry Medical Decision Making - Lab Data Result diagrams: 01/26/19 15:51 01/26/19 15:50 Lab Results 01/26/19 01/26/19 01/26/19 Range/Units 15:50 15:50 15:50 WBC (3.8-10.6) k/uL RBC (4.30-5.90) m/uL Hgb (13.0-17.5) gm/dL Hct (39.0-53.0) % MCV (80.0-100.0) fL MCH (25.0-35.0) pg MCHC (31.0-37.0) g/dL RDW (11.5-15.5) % Plt Count (150-450) k/uL Neutrophils % % Lymphocytes % % Monocytes % % Eosinophils % % Basophils % % Neutrophils # (1.3-7.7) k/uL Lymphocytes # (1.0-4.8) k/uL Monocytes # (0-1.0) k/uL Eosinophils # (0-0.7) k/uL Basophils # (0-0.2) k/uL Sodium 133 L (137-145) mmol/L Potassium 4.8 (3.5-5.1) mmol/L Chloride 99 (98-107) mmol/L Carbon Dioxide 25 (22-30) mmol/L Anion Gap 9 mmol/L BUN 25 H (9-20) mg/dL Creatinine 1.50 H (0.66-1.25) mg/dL Est GFR (CKD-EPI)AfAm 53 (>60 ml/min/1.73 sqM) Est GFR (CKD-EPI)NonAf 46 (>60 ml/min/1.73 sqM) Glucose 381 H (74-99) mg/dL POC Glucose (mg/dL) (75-99) mg/dL POC Glu Medical Staff Manager ID Plasma Lactic Acid Nehemias 1.4 (0.7-2.0) mmol/L Calcium 9.8 (8.4-10.2) mg/dL Magnesium 1.6 (1.6-2.3) mg/dL Troponin I (0.000-0.034) ng/mL NT-Pro-B Natriuret Pep 155 pg/mL 01/26/19 01/26/19 01/26/19 Range/Units 15:50 15:50 15:51 WBC 8.9 (3.8-10.6) k/uL RBC 3.93 L (4.30-5.90) m/uL Hgb 11.9 L (13.0-17.5) gm/dL Hct 36.0 L (39.0-53.0) % MCV 91.7 (80.0-100.0) fL MCH 30.4 (25.0-35.0) pg MCHC 33.1 (31.0-37.0) g/dL RDW 14.6 (11.5-15.5) % Plt Count 177 (150-450) k/uL Neutrophils % 86 % Lymphocytes % 7 % Monocytes % 5 % Eosinophils % 1 % Basophils % 0 % Neutrophils # 7.7 (1.3-7.7) k/uL Lymphocytes # 0.6 L (1.0-4.8) k/uL Monocytes # 0.5 (0-1.0) k/uL Eosinophils # 0.1 (0-0.7) k/uL Basophils # 0.0 (0-0.2) k/uL Sodium (137-145) mmol/L Potassium (3.5-5.1) mmol/L Chloride (98-107) mmol/L Carbon Dioxide (22-30) mmol/L Anion Gap mmol/L BUN (9-20) mg/dL Creatinine (0.66-1.25) mg/dL Est GFR (CKD-EPI)AfAm (>60 ml/min/1.73 sqM) Est GFR (CKD-EPI)NonAf (>60 ml/min/1.73 sqM) Glucose (74-99) mg/dL POC Glucose (mg/dL) 410 H (75-99) mg/dL POC Glu Medical Staff Manager [place] Plasma Lactic Acid Nehemias (0.7-2.0) mmol/L Calcium (8.4-10.2) mg/dL Magnesium (1.6-2.3) mg/dL Troponin I 0.017 (0.000-0.034) ng/mL NT-Pro-B Natriuret Pep pg/mL Disposition Clinical Impression: COPD (chronic obstructive pulmonary disease) Disposition: ADMITTED IP TO THIS HOSP Condition: Fair Referrals: Renzo Boyer MD [Primary Care Provider] - 1-2 days Decision Time: 17:35
[2019-01-26 15:51] LABS: Glucose,Whole Blood 410 mg/dL (75-99)
--- NOTE | 2019-01-26 16:16 | XR ---
EXAMINATION TYPE: XR chest 2V DATE OF EXAM: 01/26/2019 COMPARISON: 11/15/2018 HISTORY: 73-year-old male with pain TECHNIQUE: AP and lateral views FINDINGS: Heart normal size. Atherosclerotic arch calcifications. Some strandy atelectasis left upper lobe and eventration anterior right hemidiaphragm. Peribronchial cuffing is noted. Some focal nodularity at th e right upper lobe is unchanged from 11/15/2018. Additional radiographic follow-up can be performed. N o pleural effusion. IMPRESSION: Chronic appearing changes with some strandy left upper lobe atelectasis and nodularity in the right u pper lobe stable since 11/15/2018. Additional radiographic follow-up recommended to exclude early neop lasm in the right upper lobe. Peribronchial cuffing could reflect bronchitis or asthma.
[2019-01-26 16:40] LABS: Basophils % (A) 0 %; Eosinophils # (A) 0.1 k/uL (0-0.7); Eosinophils % (A) 1 %; HGB 11.9 gm/dL (13.0-17.5); Lymphocytes # (A) 0.6 k/uL (1.0-4.8); Lymphocytes % (A) 7 %; MCH 30.4 pg (25.0-35.0); MCHC 33.1 g/dL (31.0-37.0); MCV 91.7 fL (80.0-100.0); Mean Platelet Volume 7.3; Monocytes # (A) 0.5 k/uL (0-1.0); Monocytes % (A) 5 %; Neutrophils # (A) 7.7 k/uL (1.3-7.7); Neutrophils % (A) 86 %; Platelet Count 177 k/uL (150-450); RBC 3.93 m/uL (4.30-5.90); RDW 14.6 % (11.5-15.5); WBC 8.9 k/uL (3.8-10.6)
[2019-01-26 16:50] LABS: Calcium 9.8 mg/dL (8.4-10.2); Magnesium 1.6 mg/dL (1.6-2.3)
[2019-01-26 16:54] LABS: Potassium 4.8 mmol/L (3.5-5.1)
[2019-01-26] MEDS ORDERED: LISINOPRIL 10 MG TAB PO STA (17:05)
[2019-01-26] MEDS ORDERED: amLODIPine 5 MG TAB PO STA (17:05)
[2019-01-26] MEDS ORDERED: AZITHROMYCIN 500 MG TAB PO STA (17:27)
[2019-01-26] MEDS ORDERED: DEXAMETHASONE 4 MG TAB PO STA (17:27)
[2019-01-26] MEDS ORDERED: IPRATROPIUM-ALBUTEROL 3 ML NEB INHALATION STA (17:27)
[2019-01-26] MEDS ORDERED: NALOXONE 0.4 MG/ML 1 ML VIAL IV PRN (17:33)
[2019-01-26] MEDS ORDERED: SODIUM CHLORIDE 0.9% 1,000 ML IV SCH (17:45)
[2019-01-26 20:34] LABS: Glucose,Whole Blood 384 mg/dL (75-99)
[2019-01-26] MEDS ORDERED: hydrALAZINE HCL 20 MG/ML 1 ML VIAL IVP PRN (20:37)
[2019-01-26] MEDS ORDERED: PARoxetine 20 MG TAB PO SCH (20:45)
[2019-01-26] MEDS ORDERED: INSULIN DETEMIR (LEVEMIR) 100 UNIT/ML SYR SQ SCH (21:00)
[2019-01-26] MEDS: IPRATROPIUM-ALBUTEROL 3 ML NEB INHALATION SCH (21:31)
[2019-01-26] MEDS: SYMBICORT 160-4.5 MCG INHALER INHALATION SCH (21:31)
[2019-01-26 22:47] LABS: Glucose,Whole Blood 422 mg/dL (75-99)
[2019-01-26] MEDS: INSULIN ASPART (NovoLOG) 100 UNIT/ML VIAL SQ SCH (22:48)
[2019-01-26] MEDS: RIVAROXABAN 20 MG TAB PO SCH (22:48)
[2019-01-26] MEDS: ISOSORBIDE MONONITRATE ER 30 MG TAB.ER.24H PO SCH (22:48)
[2019-01-26] MEDS: methylPREDNISolone SOD SUCCI 40 MG/ML 1 ML VIAL IV SCH (22:50)
[2019-01-27 01:43] LABS: Glucose,Whole Blood 418 mg/dL (75-99)
[2019-01-27] MEDS ORDERED: INSULIN ASPART (NovoLOG) 100 UNIT/ML VIAL SQ ONE (04:38)
[2019-01-27 05:20] LABS: Glucose,Whole Blood 450 mg/dL (75-99)
[2019-01-27 07:25] LABS: Glucose,Whole Blood 407 mg/dL (75-99)
[2019-01-27] MEDS: FUROSEMIDE 10 MG/ML 2 ML VIAL IV SCH (07:42)
[2019-01-27] MEDS: INSULIN ASPART (NovoLOG) 100 UNIT/ML VIAL SQ SCH ×3 (07:43→17:51)
[2019-01-27] MEDS: methylPREDNISolone SOD SUCCI 40 MG/ML 1 ML VIAL IV SCH ×2 (07:43→22:28)
[2019-01-27] MEDS: ISOSORBIDE MONONITRATE ER 30 MG TAB.ER.24H PO SCH (07:45)
[2019-01-27] MEDS: RIVAROXABAN 20 MG TAB PO SCH (07:46)
[2019-01-27] MEDS: SYMBICORT 160-4.5 MCG INHALER INHALATION SCH ×2 (08:12→19:15)
[2019-01-27] MEDS: IPRATROPIUM-ALBUTEROL 3 ML NEB INHALATION SCH ×4 (08:12→19:15)
[2019-01-27] MEDS ORDERED: AZITHROMYCIN 500 MG in SODIUM CHLORIDE 0.9% 250 ML IVPB SCH (09:00)
[2019-01-27] MEDS ORDERED: amLODIPine 5 MG TAB PO SCH (09:00)
[2019-01-27] MEDS ORDERED: LISINOPRIL 10 MG TAB PO SCH (09:00)
--- NOTE | 2019-01-27 11:25 | P.HPIM ---
History of Present Illness This is a pleasant 73 years old male with past medical history of coronary artery disease, COPD, diabetes mellitus, CVA/TIA, deep venous thrombosis, hyperlipidemia, hypertension, osteoarthritis, BPH, syncope. Patient presents because of worsening dyspnea of 1-2 days of duration associated with a dry cough. No chest pain. On examination he had expiratory wheezing and prolonged expiration. Also on admission his creatinine was higher than usual. Patient is not on home oxygen, he is not on home steroids On admission his creatinine 1.5, compared to 1.25 when he discharge on November 2018. His sugars and controlled in the 300 to 400s. He has negative troponin, normal liver enzymes and mild hyponatremia at 133. Influenza is negative. Chest x-ray showing left upper lobe nodule and bronchitis or asthma. EKG: Normal sinus rhythm at 89, no significant ST-T changes Review of Systems CONSTITUTIONAL: No fever, no malaise, no fatigue. HEENT: No recent visual problems or hearing problems. Denied any sore throat. CARDIOVASCULAR: No orthopnea, PND, no palpitations, no syncope. PULMONARY: no hemoptysis. GASTROINTESTINAL: No diarrhea, no nausea, no vomiting, no abdominal pain. Normoactive bowel sounds. NEUROLOGICAL: No headaches, no weakness, no numbness. HEMATOLOGICAL: Denies any bleeding or petechiae. GENITOURINARY: Denies any burning micturition, frequency, or urgency. MUSCULOSKELETAL/RHEUMATOLOGICAL: Denies any joint pain, swelling, or any muscle pain. ENDOCRINE: Denies any polyuria or polydipsia. Past Medical History Past Medical History: Coronary Artery Disease (CAD), COPD, CVA/TIA, Diabetes Mellitus, Deep Vein Thrombosis (DVT), Hyperlipidemia, Hypertension, Myocardial Infarction ([place]), Osteoarthritis ([place]), Pneumonia, Prostate Disorder, Syncope Additional Past Medical History / Comment(s): COPD, DM-2 BPH, SKY lesion measuring 1.9 x 1.6 cm in size and not showing any metabolic activity, chronic neck/back pain, BPH Last Myocardial Infarction Date:: 05/24/12 History of Any Multi-Drug Resistant Organisms: None Reported Past Surgical History: Back Surgery, Cholecystectomy, Heart Catheterization, Hernia Repair Additional Past Surgical History / Comment(s): 2011 cardiac cath - treated medically, lower back surgery, bilateral cataract removal, abdominal hernia repair, bronchoscopy. SKY lobe removed. Past Anesthesia/Blood Transfusion Reactions: No Reported Reaction Past Psychological History: Anxiety, Depression Additional Psychological History / Comment(s): Patient lives with son. 05/05/18 + 01/16/19: Pt. denies anxiety at this time. Pt. does drive. Does not have home care services or walker/cane. No home O2. Smoking Status: Former smoker Past Alcohol Use History: None Reported Additional Past Alcohol Use History / Comment(s): Pt started smoking in 1960 and quit in 1995. He was a 2ppd smoker. Past Drug Use History: None Reported - Past Family History Mother Family Medical History: No Reported History Father Family Medical History: Diabetes Mellitus Additional Family Medical History / Comment(s): Father of diabetes at the age of 83 yrs. Medications and Allergies Home Medications Medication Instructions Recorded Confirmed Type PARoxetine [Paxil] 20 mg PO DAILY 11/15/14 01/26/19 History Furosemide [Lasix] 20 mg PO DAILY 08/31/18 01/26/19 History Rivaroxaban [Xarelto] 20 mg PO DAILY 08/31/18 01/26/19 History Isosorbide Mononitrate ER [Imdur] 30 mg PO DAILY 10/05/18 01/26/19 History Insulin Detemir [Levemir Flextouch] 72 units SQ HS 11/13/18 01/26/19 History Budesonide-Formot 160-4.5 Mcg 2 puff INHALATION RT-BID #1 inhaler 11/16/18 01/26/19 Rx [Symbicort 160-4.5 Mcg Inhaler] Lisinopril [Prinivil] 10 mg PO DAILY 01/26/19 01/26/19 History amLODIPine [Norvasc] 5 mg PO DAILY 01/26/19 01/26/19 History Allergies Allergy/AdvReac Type Severity Reaction Status Date / Time No Known Allergies Allergy Verified 01/26/19 15:07 Physical Exam Vitals: Vital Signs Temp Pulse Pulse Pulse Resp BP BP 01/27/19 08:21 76 01/27/19 08:13 76 01/27/19 08:02 16 01/27/19 06:17 97.7 F 75 16 111/62 01/26/19 22:54 99.6 F 87 18 122/52 01/26/19 21:40 78 03/24/19 21:33 84 01/26/19 19:12 99.2 F 87 18 151/71 01/26/19 18:42 162/97 01/26/19 18:16 100.0 F H 90 20 174/90 01/26/19 17:02 99.1 F 86 18 184/101 01/26/19 15:01 100.5 F H 102 H 18 181/84 Pulse Ox 01/27/19 08:21 01/27/19 08:13 01/27/19 08:02 01/27/19 06:17 95 01/26/19 22:54 96 01/26/19 21:40 01/26/19 21:33 01/26/19 19:12 97 01/26/19 18:42 01/26/19 18:16 99 01/26/19 17:02 99 01/26/19 15:01 95 Intake and Output 01/26/19 01/27/19 01/27/19 22:59 06:59 14:59 Output Total 3 Balance -3 Output: Stool 3 Other: Voiding Method Toilet # Voids 0 Weight 87.09 kg GENERAL: The patient is alert and oriented x3, not in any acute distress. Well developed, well nourished. HEENT: Pupils are round and equally reacting to light. EOMI. No scleral icterus. No conjunctival pallor. Normocephalic, atraumatic. No pharyngeal erythema. No thyromegaly. CARDIOVASCULAR: S1 and S2 present. No murmurs, rubs, or gallops. -PULMONARY: Chest is clear to auscultation, . Patient has expiratory wheezing and prolonged expiration ABDOMEN: Soft, nontender, nondistended, normoactive bowel sounds. No palpable organomegaly. MUSCULOSKELETAL: No joint swelling or deformity. EXTREMITIES: No cyanosis, clubbing, or pedal edema. NEUROLOGICAL: Gross neurological examination did not reveal any focal deficits. SKIN: No rashes. Results CBC & Chem 7: 01/26/19 15:51 01/26/19 15:50 Labs: Abnormal Lab Results - Last 24 Hours (Table) 01/26/19 01/26/19 01/26/19 Range/Units 15:50 15:50 15:51 RBC 3.93 L (4.30-5.90) m/uL Hgb 11.9 L (13.0-17.5) gm/dL Hct 36.0 L (39.0-53.0) % Lymphocytes # 0.6 L (1.0-4.8) k/uL Sodium 133 L (137-145) mmol/L BUN 25 H (9-20) mg/dL Creatinine 1.50 H (0.66-1.25) mg/dL Glucose 381 H (74-99) mg/dL POC Glucose (mg/dL) 410 H (75-99) mg/dL 01/26/19 01/26/19 01/27/19 Range/Units 20:23 22:45 01:40 RBC (4.30-5.90) m/uL Hgb (13.0-17.5) gm/dL Hct (39.0-53.0) % Lymphocytes # (1.0-4.8) k/uL Sodium (137-145) mmol/L BUN (9-20) mg/dL Creatinine (0.66-1.25) mg/dL Glucose (74-99) mg/dL POC Glucose (mg/dL) 384 H 422 H 418 H (75-99) mg/dL 01/27/19 01/27/19 Range/Units 05:07 07:08 RBC (4.30-5.90) m/uL Hgb (13.0-17.5) gm/dL Hct (39.0-53.0) % Lymphocytes # (1.0-4.8) k/uL Sodium (137-145) mmol/L BUN (9-20) mg/dL Creatinine (0.66-1.25) mg/dL Glucose (74-99) mg/dL POC Glucose (mg/dL) 450 H 407 H (75-99) mg/dL Thrombosis Risk Factor Assmnt - Choose All That Apply Any of the Below Risk Factors Present?: Yes Each Factor Represents 1 point: Abnormal pulmonary function (COPD), Swollen legs (current) Each Risk Factor Represents 2 Points: Age 61-74 years Each Risk Factor Represents 3 Points: History of DVT/PE Other congenital or acquired thrombophilia - If yes, enter type in comment: No Thrombosis Risk Factor Assessment Total Risk Factor Score: 7 Thrombosis Risk Factor Assessment Level: High Risk Assessment and Plan Assessment: -Acute COPD exacerbation -Acute renal failure: Mostly Secondary to intravascular depletion improved -unControlled diabetes mellitus with hyperglycemia -Mild hyponatremia -History of left upper lung cancer, status post resection attending [facility]. Status post chemotherapy -History of Coronary artery disease -History of COPD -History of DVT for which patient is on oral anti-coagulation which will be continued -Diabetes mellitus -Hyperlipidemia -Benign prostatic hypertrophy Plan: This is a pleasant 73 years old male who presents because of COPD exacerbation and hyperglycemia and acute kidney injury. Continue with IV fluids. Continue with a breathing treatment, steroids.Labs and medication were reviewed.. Continue same treatment. Continue with symptomatic treatment. Resume home medication. Monitor lytes and vitals. DVT and GI prophylaxis. Further recommendations of the clinical course of the patient DVT prophylaxis: xarelto GI Prophylaxis: Pepcid Prognosis is guarded
[2019-01-27] MEDS ORDERED: INSULIN DETEMIR (LEVEMIR) 100 UNIT/ML SYR SQ ONE (11:35)
[2019-01-27 11:44] LABS: Glucose,Whole Blood 472 mg/dL (75-99)
--- NOTE | 2019-01-27 12:42 | P.CRDCN ---
History of Present Illness History of present illness: This is a pleasant 73-year-old male past medical history significant for lung cancer status post left lobe resection, multivessel coronary artery disease, hypertension, DVT on long-term anticoagulation, diabetes mellitus and COPD. He follows in the office with Dr. Chacon. We have been asked to see him in consultation secondary to shortness of breath. He states he had gone to bed on Sunday night feeling well with no shortness of breath or cough. He woke up Sunday morning feeling acutely short of breath and was coughing a dry cough. He denies PND, orthopnea, fever or chills. He denies chest discomfort, dizziness, palpitations, nausea, vomiting or diaphoresis. He states overall he is feeling mildly better since arriving at the hospital. He has been started on IV antibiotics, steroids, IV Lasix and updraft treatments. Echocardiogram obtained August 2018 reveals preserved left ventricular systolic function with ejection fraction 55-60% with no valvular abnormalities and no pulmonary hypertension. He underwent cardiac catheterization performed August 2018 revealed mid LAD 50% FFR performed was 95%, proximal circumflex 40%, proximal OM 70%, mid RCA 100% is a small non-dominant vessel and proximal PLB 60%. EKG reveals sinus mechanism with no acute ST or T wave abnormalities noted. Chest x-ray is negative for an acute cardiopulmonary process with evidence of a right upper lobe nodule neoplasm to be considered. Laboratory data reviewed, WBC 8.9, hemoglobin 11.9, platelets 177, sodium 133, potassium 4.8, creatinine 1.5, magnesium 1.6, and T proBNP 155 and cardiac enzymes negative 1. Current cardiac medications include Lasix 20 mg daily, Imdur 30 mg daily, Xarelto 20 mg daily, amlodipine 5 mg daily and lisinopril 10 mg daily. At the time of my exam: CONSTITUTIONAL: Denies fever. Denies chills. EYES: Denies blurred vision. Denies vision changes. Denies eye pain. EARS, NOSE, MOUTH & THROAT: Denies headache. Denies sore throat. Denies ear pain. CARDIOVASCULAR: Denies chest pain. Complains of shortness of breath. Denies orthopnea. Denies PND. Denies palpitations. RESPIRATORY: Complains of cough. GASTROINTESTINAL: Denies abdominal pain. Denies diarrhea. Denies constipation. Denies nausea. Denies vomiting. MUSCULOSKELETAL: Denies myalgias. INTEGUMENTARY: Denies pruitis. Denies rash. NEUROLOGIC: Denies numbness. Denies tingling. Denies weakness. PSYCHIATRIC: Denies anxiety. Denies depression. ENDOCRINE: Denies fatigue. Denies weight change. Denies polydipsia. Denies polyurina. GENITOURINARY: Denies burning, hematuria or urgency with micturation. HEMATOLOGIC: Denies history of anemia. Denies bleeding. Blood pressure 111/62 heart rate 75 afebrile maintaining oxygen saturation on room air GENERAL: This is a 73-year-old male in no apparent distress at the time of my examination. HEENT: Head is atraumatic, normocephalic. Pupils are equal, round. Sclerae anicteric. Conjunctivae are clear. Mucous membranes of the mouth are moist. Neck is supple. There is no jugular venous distention. No carotid bruit is heard. LUNGS: Coarse rhonchi noted throughout, no rales or wheezes. No chest wall tenderness is noted on palpation or with deep breathing. HEART: Regular rate and rhythm without murmurs, rubs or gallops. S1 and S2 he pauline. ABDOMEN: Soft, nontender. Bowel sounds are heard. No organomegaly noted. EXTREMITIES: 1+ bilateral lower extremity pitting edema and no calf tenderness noted. VASCULAR: Radial and dorsalis pedis pulses palpated, no evidence of clubbing. NEUROLOGIC: Patient is awake, alert and oriented x3. ASSESSMENT Acute exacerbation of COPD History of lung cancer s/p resection and chemotherapy History of multi-vessel coronary artery disease Hypertension Diabetes mellitus Recent DVT after lung resection on terminal superintendent anti-coagulation Chronic kidney disease, GFR 46 PLAN He appears euvolemic from a heart failure standpoint. Lower extremity edema may be related to amlodipine. Recommend holding amlodipine and increasing lisinopril for blood pressure control. Thank you kindly for this consultation. Nurse Practitioner note has been reviewed, I agree with a documented findings and plan of care. Patient was seen and examined. Past Medical History Past Medical History: Coronary Artery Disease (CAD), COPD, CVA/TIA, Diabetes Mellitus, Deep Vein Thrombosis (DVT), Hyperlipidemia, Hypertension, Myocardial Infarction ([place]), Osteoarthritis (OA), Pneumonia, Prostate Disorder, Syncope Additional Past Medical History / Comment(s): COPD, DM-2 BPH, SKY lesion measuring 1.9 x 1.6 cm in size and not showing any metabolic activity, chronic neck/back pain, BPH Last Myocardial Infarction Date:: 05/24/12 History of Any Multi-Drug Resistant Organisms: None Reported Past Surgical History: Back Surgery, Cholecystectomy, Heart Catheterization, Hernia Repair Additional Past Surgical History / Comment(s): 2011 cardiac cath - treated medically, lower back surgery, bilateral cataract removal, abdominal hernia repair, bronchoscopy. SKY lobe removed. Past Anesthesia/Blood Transfusion Reactions: No Reported Reaction Past Psychological History: Anxiety, Depression Additional Psychological History / Comment(s): Patient lives with son. 05/05/18 + 01/16/19: Pt. denies anxiety at this time. Pt. does drive. Does not have home care services or walker/cane. No home O2. Smoking Status: Former smoker Past Alcohol Use History: None Reported Additional Past Alcohol Use History / Comment(s): Pt started smoking in 1960 and quit in 1995. He was a 2ppd smoker. Past Drug Use History: None Reported - Past Family History Mother Family Medical History: No Reported History Father Family Medical History: Diabetes Mellitus Additional Family Medical History / Comment(s): Father of diabetes at the age of 83 yrs. Medications and Allergies Home Medications Medication Instructions Recorded Confirmed Type PARoxetine [Paxil] 20 mg PO DAILY 11/15/14 01/26/19 History Furosemide [Lasix] 20 mg PO DAILY 08/31/18 01/26/19 History Rivaroxaban [Xarelto] 20 mg PO DAILY 08/31/18 01/26/19 History Isosorbide Mononitrate ER [Imdur] 30 mg PO DAILY 10/05/18 01/26/19 History Insulin Detemir [Levemir Flextouch] 72 units SQ HS 11/13/18 01/26/19 History Budesonide-Formot 160-4.5 Mcg 2 puff INHALATION RT-BID #1 inhaler 11/16/18 01/26/19 Rx [Symbicort 160-4.5 Mcg Inhaler] Lisinopril [Prinivil] 10 mg PO DAILY 01/26/19 01/26/19 History amLODIPine [Norvasc] 5 mg PO DAILY 01/26/19 01/26/19 History Allergies Allergy/AdvReac Type Severity Reaction Status Date / Time No Known Allergies Allergy Verified 01/26/19 15:07 Physical Exam Vitals: Vital Signs Temp Pulse Pulse Pulse Resp BP BP 01/27/19 08:21 76 01/27/19 08:13 76 01/27/19 08:02 16 01/27/19 06:17 97.7 F 75 16 111/62 01/26/19 22:54 99.6 F 87 18 122/52 01/26/19 21:40 78 01/26/19 21:33 84 01/26/19 19:12 99.2 F 87 18 151/71 01/26/19 18:42 162/97 01/26/19 18:16 100.0 F H 90 20 174/90 01/26/19 17:02 99.1 F 86 18 184/101 01/26/19 15:01 100.5 F H 102 H 18 181/84 Pulse Ox 01/27/19 08:21 01/27/19 08:13 01/27/19 08:02 01/27/19 06:17 95 01/26/19 22:54 96 01/26/19 21:40 01/26/19 21:33 01/26/19 19:12 97 01/26/19 18:42 01/26/19 18:16 99 01/26/19 17:02 99 01/26/19 15:01 95 Intake and Output 01/26/19 01/27/19 01/27/19 22:59 06:59 14:59 Output Total 3 Balance -3 Output: Stool 3 Other: Voiding Method Toilet # Voids 0 Weight 87.09 kg Results 01/26/19 15:51 01/26/19 15:50 Cardiac Enzymes 01/26/19 Range/Units 15:50 Troponin I 0.017 (0.000-0.034) ng/mL CBC 01/26/19 Range/Units 15:51 WBC 8.9 (3.8-10.6) k/uL RBC 3.93 L (4.30-5.90) m/uL Hgb 11.9 L (13.0-17.5) gm/dL Hct 36.0 L (39.0-53.0) % Plt Count 177 (150-450) k/uL Comprehensive Metabolic Panel 01/26/19 Range/Units 15:50 Sodium 133 L (137-145) mmol/L Potassium 4.8 (3.5-5.1) mmol/L Chloride 99 (98-107) mmol/L Carbon Dioxide 25 (22-30) mmol/L BUN 25 H (9-20) mg/dL Creatinine 1.50 H (0.66-1.25) mg/dL Glucose 381 H (74-99) mg/dL Calcium 9.8 (8.4-10.2) mg/dL Current Medications Generic Name Dose Route Start Last Admin Trade Name Freq PRN Reason Stop Dose Admin Albuterol/Ipratropium 3 ml 01/26/19 20:00 01/27/19 08:12 Duoneb 0.5 Mg-3 Mg/3 Ml Soln INHALATION 3 ml RT-QID NI Administration Amlodipine Besylate 5 mg 01/27/19 09:00 01/27/19 07:43 Norvasc PO 5 mg DAILY NI Administration Budesonide/Formoterol Fumarate 2 puff 01/26/19 20:32 01/27/19 08:12 Symbicort 160-4.5 Mcg Inhaler INHALATION 2 puff RT-BID NI Administration Furosemide 20 mg 01/27/19 09:00 01/27/19 07:42 Lasix IV 20 mg DAILY NI Administration Hydralazine HCl 5 mg 01/26/19 20:37 Apresoline IVP Q6HR PRN Blood Pressure - High Azithromycin 500 mg/ Sodium 250 mls @ 250 mls/hr 01/27/19 09:00 01/27/19 07:45 Chloride IVPB 250 mls/hr DAILY NI Administration Insulin Aspart 0 unit 01/26/19 21:00 01/27/19 07:43 Novolog SQ 8 unit ACHS NI Administration Protocol Insulin Detemir 72 unit 01/26/19 21:00 01/26/19 22:48 Levemir SQ 72 unit HS NI Administration Isosorbide Mononitrate 30 mg 01/26/19 20:45 01/27/19 07:45 Imdur PO 30 mg DAILY NI Administration Lisinopril 10 mg 01/27/19 09:00 01/27/19 07:42 Zestril PO 10 mg DAILY NI Administration Methylprednisolone Sodium Succinate 40 mg 01/26/19 21:00 01/27/19 07:43 Solu-Medrol IV 40 mg Q12HR NI Administration Naloxone HCl 0.2 mg 01/26/19 17:33 Narcan IV Q2M PRN Opioid Reversal Rivaroxaban 20 mg 01/26/19 20:45 01/27/19 07:46 Xarelto PO 20 mg DAILY NI Administration Intake and Output 01/26/19 01/27/19 01/27/19 22:59 06:59 14:59 Output Total 3 Balance -3 Output: Stool 3 Other: Voiding Method Toilet # Voids 0 Weight 87.09 kg 01/26/19 15:51 01/26/19 15:50
[2019-01-27] MEDS: SODIUM CHLORIDE 0.9% 1,000 ML IV SCH (13:04)
[2019-01-27] MEDS: ATORVASTATIN 40 MG TAB PO SCH (13:05)
--- NOTE | 2019-01-27 13:05 | P.CNPUL ---
History of Present Illness Consult date: 01/27/19 Requesting physician: Champ E Winston Reason for consult: dyspnea Chief complaint: Shortness of breath History of present illness: This is a very pleasant 73-year-old gentleman who follows with Dr. Boyer as his primary care physician. He has a history of hypertension, diabetes mellitus, hyperlipidemia, left lower extremity DVT anticoagulate with Xarelto. He also has a history of a small right middle lobe nodule that Dr. Boyer had been following in the outpatient setting. During that time he was found to have a left lung nodule as well this was more concerning on the PET scan. The location of bronchoscopy was negative however follow-up PET scan did show increasing in size and SUV's. He was subsequently sent at [facility] and underwent a left upper lobectomy and the pathology did come back positive for adenocarcinoma. That was in 2018. He had been followed with Dr. Davila for chemotherapy. He was last seen in our office thyroid 2018 and was doing fairly well. He had completed his chemotherapy. He presented here to the emergency room yesterday after developing increasing shortness of breath. He did have a fever of 100. He did have some cough and congestion. Nonproductive. Chest x-ray reveals chronic changes with some strandy left upper lobe atelecta sis and continued right upper lobe nodularity. There was some peribronchial cuffing suspicious for bronchitis. He is seen today in consultation on the regular medical floor. He is awake and alert in no acute distress. He is breathing easier today as compared to yesterday. ProBNP 155. Troponin negative. Influenza screen negative. He is currently maintaining good O2 saturations in the mid 90s on room air. He's afebrile. Hemodynamically stable. He has been initiated on Symbicort, DuoNeb inhalations, IV Solu-Medrol. He is on IV diuretics and antibiotics in the form of azithromycin. Anticoagulated with Xarelto. Review of Systems Constitutional: Reports fatigue, Reports lethargy, Reports weakness Eyes: denies as per HPI, denies blurred vision, denies bulging eye, denies decreased vision, denies diplopia, denies discharge, denies dry eye, denies irritation, denies itching, denies pain, denies photophobia, denies loss of peripheral vision, denies loss of vision, denies tunnel vision/blind spots Ears: deny: decreased hearing, ear discharge, earache, tinnitus Ears, nose, mouth and throat: Denies headache, Denies sore throat Cardiovascular: Reports dyspnea on exertion, Reports shortness of breath Respiratory: Reports cough, Reports dyspnea Gastrointestinal: Denies abdominal pain, Denies diarrhea, Denies nausea, Denies vomiting Genitourinary: Reports as per HPI Musculoskeletal: Denies myalgias Integumentary: Denies pruritus, Denies rash Neurological: Denies numbness, Denies weakness Psychiatric: Denies anxiety, Denies depression Endocrine: Denies fatigue, Denies weight change Hematologic/Lymphatic: Reports as per HPI Allergic/Immunologic: Reports as per HPI Past Medical History Past Medical History: Coronary Artery Disease (CAD), COPD, CVA/TIA, Diabetes Mellitus, Deep Vein Thrombosis (DVT), Hyperlipidemia, Hypertension, Myocardial Infarction ([place]), Osteoarthritis ([place]), Pneumonia, Prostate Disorder, Syncope Additional Past Medical History / Comment(s): COPD, DM-2 BPH, SKY lesion measuring 1.9 x 1.6 cm in size and not showing any metabolic activity, chronic neck/back pain, BPH Last Myocardial Infarction Date:: 05/24/12 History of Any Multi-Drug Resistant Organisms: None Reported Past Surgical History: Back Surgery, Cholecystectomy, Heart Catheterization, Hernia Repair Additional Past Surgical History / Comment(s): 2011 cardiac cath - treated medically, lower back surgery, bilateral cataract removal, abdominal hernia repair, bronchoscopy. SKY lobe removed. Past Anesthesia/Blood Transfusion Reactions: No Reported Reaction Past Psychological History: Anxiety, Depression Additional Psychological History / Comment(s): Patient lives with son. 05/05/18 + 01/16/19: Pt. denies anxiety at this time. Pt. does drive. Does not have home care services or walker/cane. No home O2. Smoking Status: Former smoker Past Alcohol Use History: None Reported Additional Past Alcohol Use History / Comment(s): Pt started smoking in 1960 and quit in 1995. He was a 2ppd smoker. Past Drug Use History: None Reported - Past Family History Mother Family Medical History: No Reported History Father Family Medical History: Diabetes Mellitus Additional Family Medical History / Comment(s): Father of diabetes at the age of 83 yrs. Medications and Allergies Home Medications Medication Instructions Recorded Confirmed Type PARoxetine [Paxil] 20 mg PO DAILY 11/15/14 01/26/19 History Furosemide [Lasix] 20 mg PO DAILY 08/31/18 01/26/19 History Rivaroxaban [Xarelto] 20 mg PO DAILY 08/31/18 01/26/19 History Isosorbide Mononitrate ER [Imdur] 30 mg PO DAILY 10/05/18 01/26/19 History Insulin Detemir [Levemir Flextouch] 72 units SQ HS 11/13/18 01/26/19 History Budesonide-Formot 160-4.5 Mcg 2 puff INHALATION RT-BID #1 inhaler 11/16/18 01/26/19 Rx [Symbicort 160-4.5 Mcg Inhaler] Lisinopril [Prinivil] 10 mg PO DAILY 01/26/19 01/26/19 History amLODIPine [Norvasc] 5 mg PO DAILY 01/26/19 01/26/19 History Allergies Allergy/AdvReac Type Severity Reaction Status Date / Time No Known Allergies Allergy Verified 01/26/19 15:07 Physical Exam Vitals: Vital Signs Temp Pulse Pulse Pulse Resp BP BP 01/27/19 11:39 80 01/27/19 11:28 84 01/27/19 08:21 76 01/27/19 08:13 76 01/27/19 08:02 16 01/27/19 06:17 97.7 F 75 16 111/62 01/26/19 22:54 99.6 F 87 18 122/52 01/26/19 21:40 78 01/26/19 21:33 84 01/26/19 19:12 99.2 F 87 18 151/71 01/26/19 18:42 162/97 01/26/19 18:16 100.0 F H 90 20 174/90 01/26/19 17:02 99.1 F 86 18 184/101 01/26/19 15:01 100.5 F H 102 H 18 181/84 Pulse Ox 01/27/19 11:39 01/27/19 11:28 01/27/19 08:21 01/27/19 08:13 01/27/19 08:02 01/27/19 06:17 95 01/26/19 22:54 96 01/26/19 21:40 01/26/19 21:33 01/26/19 19:12 97 01/26/19 18:42 01/26/19 18:16 99 01/26/19 17:02 99 01/26/19 15:01 95 Intake and Output 01/26/19 01/27/19 01/27/19 22:59 06:59 14:59 Output Total 3 Balance -3 Output: Stool 3 Other: Voiding Method Toilet # Voids 0 Weight 87.09 kg GENERAL EXAM: Alert, active, comfortable in no apparent distress. On room air. HEAD: Normocephalic. EYES: Normal reaction of pupils, equal size. NOSE: Clear with pink turbinates. THROAT: No erythema or exudates. NECK: No masses, no JVD. CHEST: No chest wall deformity. LUNGS: Equal air entry with faint crackles in the posterior bases, end expir atory wheeze, diminished. CVS: S1 and S2 normal with no audible murmur, regular rhythm. ABDOMEN: No hepatosplenomegaly, normal bowel sounds, no guarding or rigidity. SPINE: No scoliosis or deformity SKIN: No rashes CENTRAL NERVOUS SYSTEM: No focal deficits, tone is normal in all 4 extremities. EXTREMITIES: There is no peripheral edema. No clubbing, no cyanosis. Peripheral pulses are intact. Results - Laboratory Findings CBC and BMP: 01/26/19 15:51 01/26/19 15:50 Abnormal lab findings: Abnormal Labs 01/26/19 01/26/19 01/26/19 15:50 15:50 15:51 RBC 3.93 L Hgb 11.9 L Hct 36.0 L Lymphocytes # 0.6 L Sodium 133 L BUN 25 H Creatinine 1.50 H Glucose 381 H POC Glucose (mg/dL) 410 H 01/26/19 01/26/19 01/27/19 20:23 22:45 01:40 RBC Hgb Hct Lymphocytes # Sodium BUN Creatinine Glucose POC Glucose (mg/dL) 384 H 422 H 418 H 01/27/19 01/27/19 01/27/19 05:07 07:08 11:32 RBC Hgb Hct Lymphocytes # Sodium BUN Creatinine Glucose POC Glucose (mg/dL) 450 H 407 H 472 H - Diagnostic Findings Chest x-ray: image reviewed Assessment and Plan Assessment: Impression: #1 Acute exacerbation of chronic obstructive pulmonary disease complicated by purulent tracheobronchitis. FEV1 value of 47% of predicted. #2 History of adenocarcinoma of the left lung status post left upper lobectomy with chemotherapy. #3 History of right lung nodule. #4 History of left lower extremity DVT, anticoagulated with Xarelto. #5 Hypertension. #6 Hyperlipidemia. #7 Diabetes mellitus with steroid-induced hyperglycemia. #8 Benign prosthetic hypertrophy. #9 Coronary artery disease. Plan: The patient was seen and evaluated by Dr. Boyer. Chest x-ray and labs were reviewed. We'll continue with treatment for his COPD exacerbation. Symbicort, DuoNeb's, IV Solu-Medrol. IV diuretics. Anti-Qualey with Xarelto. Empiric antibiotics in the form of azithromycin. We will continue to follow and make further recommendations based on his clinical status. I, the cosigning physician, performed a history & physical examination of the patient. Lungs sounds with faint crackles in the posterior bases, few scattered wheezes. Diminished. Maintaining good O2 saturations in the 90s on room air. I discussed the assessment and plan of care with my nurse practitioner, Nohemi Garcia. I attest to the above note as dictated by her. Time with Patient: Greater than 30
[2019-01-27 17:50] LABS: Glucose,Whole Blood 493 mg/dL (75-99)
[2019-01-27] MEDS ORDERED: INSULIN REGULAR BOLUS (FROM DRIP BAG) IV ONE (18:17)
[2019-01-27 19:15] LABS: Glucose,Whole Blood 488 mg/dL (75-99)
[2019-01-27] MEDS: INSULIN REGULAR 100 UNIT in SODIUM CHLORIDE 0.9% 100 ML IV SCH (19:20)
[2019-01-27 19:35] LABS: Hemoglobin A1C 10.2 % (4.0-6.0)
[2019-01-27 20:08] LABS: Glucose,Whole Blood 482 mg/dL (75-99)
[2019-01-27 20:41] LABS: Glucose,Whole Blood 414 mg/dL (75-99)
[2019-01-27] MEDS ORDERED: INSULIN DETEMIR (LEVEMIR) 100 UNIT/ML SYR SQ SCH (21:00)
[2019-01-27 21:12] LABS: Glucose,Whole Blood 336 mg/dL (75-99)
[2019-01-27 21:43] LABS: Glucose,Whole Blood 272 mg/dL (75-99)
[2019-01-27 22:22] VITALS: RESP 16
[2019-01-27 22:26] LABS: Glucose,Whole Blood 234 mg/dL (75-99)
[2019-01-28 00:24] LABS: Glucose,Whole Blood 101 mg/dL (75-99)
[2019-01-28 01:36] LABS: Glucose,Whole Blood 89 mg/dL (75-99)
[2019-01-28 02:22] LABS: Glucose,Whole Blood 96 mg/dL (75-99)
[2019-01-28] MEDS: INSULIN REGULAR 100 UNIT in SODIUM CHLORIDE 0.9% 100 ML IV SCH ×2 (04:41→17:23)
[2019-01-28 04:53] LABS: Glucose,Whole Blood 193 mg/dL (75-99)
[2019-01-28 06:35] LABS: Glucose,Whole Blood 190 mg/dL (75-99)
[2019-01-28] MEDS: SYMBICORT 160-4.5 MCG INHALER INHALATION SCH ×2 (07:21→19:18)
[2019-01-28] MEDS: IPRATROPIUM-ALBUTEROL 3 ML NEB INHALATION SCH ×4 (07:21→19:18)
[2019-01-28] MEDS: SODIUM CHLORIDE 0.9% 1,000 ML IV SCH ×2 (07:31→13:01)
--- NOTE | 2019-01-28 08:36 | ECHOF ---
Referral Reason:sob, repeat MEASUREMENTS -------- HEIGHT: 185.4 cm WEIGHT: 87.1 kg BP: 111/62 RVIDd: 2.8 cm (< 3.3) IVSd: 1.1 cm (0.6 - 1.1) LVIDd: 4.1 cm (3.9 - 5.3) LVPWd: 1.2 cm (0.6 - 1.1) IVSs: 1.5 cm LVIDs: 2.1 cm LVPWs: 1.6 cm LAESV Index (A-L): 19.72 ml/m Ao Diam: 3.6 cm (2.0 - 3.7) AV Cusp: 1.6 cm (1.5 - 2.6) LA Diam: 3.5 cm (2.7 - 3.8) EPSS: 0.5 cm MV E Vincent: 0.68 m/s MV DecT: 414 ms MV A Vincent: 1.11 m/s MV E/A Ratio: 0.61 RAP: 5.00 mmHg RVSP: 35.12 mmHg MV EF SLOPE: 66.17 mm/s (70 - 150) MV EXCURSION: 1.84 cm (> 18.000) FINDINGS -------- Sinus rhythm. This was a technically adequate study. The left ventricular size is normal. There is borderline concentric left ventricular hypertrophy. Left ventricular systolic function is hyperdynamic with an estimated EF of >70%. The right ventricle is normal in size and function. Normal LA size by volume 22+/-6 ml/m2. The right atrium is normal in size. Aortic valve is trileaflet and is mildly thickened. There is no evidence of aortic regurgitation. There is no evidence of aortic stenosis. The mitral valve leaflets are mildly thickened. There is trace to mild mitral regurgitation. Mild tricuspid regurgitation present. There is borderline pulmonary hypertension. The right ventr icular systolic pressure, as measured by Doppler, is 35.12mmHg. Trace/mild (physiologic) pulmonic regurgitation. The aortic root size is normal. Normal inferior vena cava with normal inspiratory collapse consistent with estimated right atrial pre ssure of 5 mmHg. There is a trivial pericardial effusion present. CONCLUSIONS -------- 1. Sinus rhythm. 2. This was a technically adequate study. 3. The left ventricular size is normal. 4. There is borderline concentric left ventricular hypertrophy. 5. Left ventricular systolic function is hyperdynamic with an estimated EF of >70%. 6. Normal LA size by volume 22+/-6 ml/m2. 7. Aortic valve is trileaflet and is mildly thickened. 8. The mitral valve leaflets are mildly thickened. 9. There is trace to mild mitral regurgitation. 10. Mild tricuspid regurgitation present. 11. There is borderline pulmonary hypertension. 12. The right ventricular systolic pressure, as measured by Doppler, is 35.12mmHg. 13. Trace/mild (physiologic) pulmonic regurgitation. 14. The aortic root size is normal. 15. There is a trivial pericardial effusion present. VIDEO GAME DESIGNER: Behzad English RDCS
[2019-01-28 08:56] LABS: Glucose,Whole Blood 265 mg/dL (75-99)
[2019-01-28] MEDS ORDERED: LISINOPRIL 20 MG TAB PO SCH ×2 (09:00)
[2019-01-28] MEDS: INSULIN ASPART (NovoLOG) 100 UNIT/ML VIAL SQ SCH ×3 (09:05→17:30)
[2019-01-28] MEDS: FUROSEMIDE 10 MG/ML 2 ML VIAL IV SCH (09:05)
[2019-01-28] MEDS: methylPREDNISolone SOD SUCCI 40 MG/ML 1 ML VIAL IV SCH (09:05)
[2019-01-28] MEDS: ATORVASTATIN 40 MG TAB PO SCH (09:05)
[2019-01-28] MEDS: AZITHROMYCIN 500 MG TAB PO SCH (09:05)
[2019-01-28] MEDS: RIVAROXABAN 20 MG TAB PO SCH (09:08)
[2019-01-28 09:18] LABS: Basophils % (A) 0 %; Eosinophils # (A) 0.1 k/uL (0-0.7); Eosinophils % (A) 0 %; HCT 34.1 % (39.0-53.0); HGB 11.2 gm/dL (13.0-17.5); Lymphocytes # (A) 0.4 k/uL (1.0-4.8); Lymphocytes % (A) 2 %; MCH 29.9 pg (25.0-35.0); MCHC 32.9 g/dL (31.0-37.0); MCV 90.8 fL (80.0-100.0); Mean Platelet Volume 7.7; Monocytes # (A) 0.5 k/uL (0-1.0); Monocytes % (A) 3 %; Neutrophils # (A) 17.6 k/uL (1.3-7.7); Neutrophils % (A) 95 %; Platelet Count 210 k/uL (150-450); RBC 3.75 m/uL (4.30-5.90); RDW 14.5 % (11.5-15.5); WBC 18.6 k/uL (3.8-10.6)
[2019-01-28 09:34] LABS: Calcium 9.3 mg/dL (8.4-10.2); Potassium 4.6 mmol/L (3.5-5.1)
[2019-01-28 10:36] LABS: Glucose,Whole Blood 360 mg/dL (75-99)
[2019-01-28 12:33] LABS: Glucose,Whole Blood 318 mg/dL (75-99)
[2019-01-28 14:01] VITALS: BMI 25.3
--- NOTE | 2019-01-28 15:08 | P.PN ---
Subjective Progress Note Date: 01/28/19 Principal diagnosis: Acute exacerbation of chronic obstructive pulmonary disease. This is a very pleasant 73-year-old gentleman who follows with Dr. Boyer as his primary care physician. He has a history of hypertension, diabetes mellitus, hyperlipidemia, left lower extremity DVT anticoagulate with Xarelto. He also has a history of a small right middle lobe nodule that Dr. Boyer had been following in the outpatient setting. During that time he was found to have a left lung nodule as well this was more concerning on the PET scan. The location of bronchoscopy was negative however follow-up PET scan did show increasing in size and SUV's. He was subsequently sent at [facility] and underwent a left upper lobectomy and the pathology did come back positive for adenocarcinoma. That was in 2018. He had been followed with Dr. Davila for chemotherapy. He was last seen in our office thyroid 2018 and was doing fairly well. He had completed his chemotherapy. He presented here to the emergency room yesterday after developing increasing shortness of breath. He did have a fever of 100. He did have some cough and congestion. Nonproductive. Chest x-ray reveals chronic changes with some strandy left upper lobe atelectasis and continued right upper lobe nodularity. There was some peribronchial cuffing suspicious for bronchitis. He is seen today in consultation on the regular medical floor. He is awake and alert in no acute distress. He is breathing easier today as compared to yesterday. ProBNP 155. Troponin negative. Influenza screen negative. He is currently maintaining good O2 saturations in the mid 90s on room air. He's afebrile. Hemodynamically stable. He has been initiated on Symbicort, DuoNeb inhalations, IV Solu-Medrol. He is on IV diuretics and antibiotics in the form of azithromycin. Anticoagulated with Xarelto. The patient is seen today 01/28/2019 in follow-up on the regular medical floor. He is awake and alert in no acute distress. He is breathing easier today as compared to yesterday. He is maintaining good O2 saturations in the upper 90s on room air. He's been afebrile. Hemodynamically stable. Blood culture reveals no growth. White count 18.6. Hemoglobin 11.2. Creatinine 2.16. He is having some issues with hallucinations and hyperglycemia. Remains on IV Solu- Medrol. He is on insulin drip at 8 units per hour. Objective - Vital Signs Vital signs: Vital Signs Temp 97.3 F L 01/28/19 13:06 Pulse 91 01/28/19 13:06 Resp 16 01/28/19 13:06 BP 145/62 01/28/19 13:06 Pulse Ox 98 01/28/19 13:06 Intake & Output 01/27/19 01/28/19 01/28/19 18:59 06:59 18:59 Intake Total 1200 105.750 651.400 Balance 1200 105.750 651.400 Weight 87.09 kg Intake: Intake, IV Titration 105.750 51.400 Amount Insulin Regular 100 unit 105.750 51.400 In Sodium Chloride 0.9% 100 ml @ Titrate IV .Q0M [facility] Rx#:[id number] Oral 1200 600 Other: # Voids 4 2 4 - Exam GENERAL EXAM: Alert, active, comfortable in no apparent distress. On room air. HEAD: Normocephalic. EYES: Normal reaction of pupils, equal size. NOSE: Clear with pink turbinates. THROAT: No erythema or exudates. NECK: No masses, no JVD. CHEST: No chest wall deformity. LUNGS: Equal air entry with no crackles, wheeze, rhonchi or dullness. CVS: S1 and S2 normal with no audible murmur, regular rhythm. ABDOMEN: No hepatosplenomegaly, normal bowel sounds, no guarding or rigidity. SPINE: No scoliosis or deformity SKIN: No rashes CENTRAL NERVOUS SYSTEM: No focal deficits, tone is normal in all 4 extremities. EXTREMITIES: There is no peripheral edema. No clubbing, no cyanosis. Peripheral pulses are intact. - Labs CBC & Chem 7: 01/28/19 08:36 01/28/19 08:36 Labs: Abnormal Lab Results - Last 24 Hours (Table) 01/26/19 01/27/19 01/27/19 Range/Units 15:51 17:36 19:14 WBC (3.8-10.6) k/uL RBC (4.30-5.90) m/uL Hgb (13.0-17.5) gm/dL Hct (39.0-53.0) % Neutrophils # (1.3-7.7) k/uL Lymphocytes # (1.0-4.8) k/uL Sodium (137-145) mmol/L BUN (9-20) mg/dL Creatinine (0.66-1.25) mg/dL Glucose (74-99) mg/dL POC Glucose (mg/dL) 493 H 488 H (75-99) mg/dL Hemoglobin A1c 10.2 H (4.0-6.0) % 01/27/19 01/27/19 01/27/19 Range/Units 20:07 20:39 21:10 WBC (3.8-10.6) k/uL RBC (4.30-5.90) m/uL Hgb (13.0-17.5) gm/dL Hct (39.0-53.0) % Neutrophils # (1.3-7.7) k/uL Lymphocytes # (1.0-4.8) k/uL Sodium (137-145) mmol/L BUN (9-20) mg/dL Creatinine (0.66-1.25) mg/dL Glucose (74-99) mg/dL POC Glucose (mg/dL) 482 H 414 H 336 H (75-99) mg/dL Hemoglobin A1c (4.0-6.0) % 01/27/19 01/27/19 01/28/19 Range/Units 21:41 22:14 00:14 WBC (3.8-10.6) k/uL RBC (4.30-5.90) m/uL Hgb (13.0-17.5) gm/dL Hct (39.0-53.0) % Neutrophils # (1.3-7.7) k/uL Lymphocytes # (1.0-4.8) k/uL Sodium (137-145) mmol/L BUN (9-20) mg/dL Creatinine (0.66-1.25) mg/dL Glucose (74-99) mg/dL POC Glucose (mg/dL) 272 H 234 H 101 H (75-99) mg/dL Hemoglobin A1c (4.0-6.0) % 01/28/19 01/28/19 01/28/19 Range/Units 04:25 06:32 08:35 WBC (3.8-10.6) k/uL RBC (4.30-5.90) m/uL Hgb (13.0-17.5) gm/dL Hct (39.0-53.0) % Neutrophils # (1.3-7.7) k/uL Lymphocytes # (1.0-4.8) k/uL Sodium (137-145) mmol/L BUN (9-20) mg/dL Creatinine (0.66-1.25) mg/dL Glucose (74-99) mg/dL POC Glucose (mg/dL) 193 H 190 H 265 H (75-99) mg/dL Hemoglobin A1c (4.0-6.0) % 01/28/19 01/28/19 01/28/19 Range/Units 08:36 08:36 10:32 WBC 18.6 H (3.8-10.6) k/uL RBC 3.75 L (4.30-5.90) m/uL Hgb 11.2 L (13.0-17.5) gm/dL Hct 34.1 L (39.0-53.0) % Neutrophils # 17.6 H (1.3-7.7) k/uL Lymphocytes # 0.4 L (1.0-4.8) k/uL Sodium 132 L (137-145) mmol/L BUN 51 H (9-20) mg/dL Creatinine 2.16 H (0.66-1.25) mg/dL Glucose 234 H (74-99) mg/dL POC Glucose (mg/dL) 360 H (75-99) mg/dL Hemoglobin A1c (4.0-6.0) % 01/28/19 Range/Units 12:31 WBC (3.8-10.6) k/uL RBC (4.30-5.90) m/uL Hgb (13.0-17.5) gm/dL Hct (39.0-53.0) % Neutrophils # (1.3-7.7) k/uL Lymphocytes # (1.0-4.8) k/uL Sodium (137-145) mmol/L BUN (9-20) mg/dL Creatinine (0.66-1.25) mg/dL Glucose (74-99) mg/dL POC Glucose (mg/dL) 318 H (75-99) mg/dL Hemoglobin A1c (4.0-6.0) % Microbiology - Last 24 Hours (Table) 01/27/19 07:17 Blood Culture - Preliminary Blood No Growth after 24 hours Assessment and Plan Assessment: Impression: #1 Acute exacerbation of chronic obstructive pulmonary disease complicated by purulent tracheobronchitis. FEV1 value of 47% of predicted. #2 History of adenocarcinoma of the left lung status post left upper lobectomy with chemotherapy. #3 History of right lung nodule. #4 History of left lower extremity DVT, anticoagulated with Xarelto. #5 Hypertension. #6 Hyperlipidemia. #7 Diabetes mellitus with steroid-induced hyperglycemia. #8 Benign prosthetic hypertrophy. #9 Coronary artery disease. Plan: The patient was seen and evaluated by Dr. Boyer. He is currently stable from the pulmonary standpoint. We will discontinue the IV Solu-Medrol. Initiate a prednisone taper starting from tomorrow. Continue to monitor his glucose levels. Home once cleared medically. I, the cosigning physician, performed a history & physical examination of the patient. Lungs sounds clear. Diminished. Maintaining good O2 saturations in the 90s on room air. I discussed the assessment and plan of care with my nurse practitioner, Nohemi Garcia. I attest to the above note as dictated by her.
[2019-01-28 15:12] LABS: Glucose,Whole Blood 302 mg/dL (75-99)
--- NOTE | 2019-01-28 15:24 | P.PN ---
Subjective Progress Note Date: 01/28/19 Interval history:This is a pleasant 73 years old male with past medical history of coronary artery disease, COPD, diabetes mellitus, CVA/TIA, deep venous thrombosis, hyperlipidemia, hypertension, osteoarthritis, BPH, syncope. Patient presents because of worsening dyspnea of 1-2 days of duration associated with a dry cough. No chest pain. On examination he had expiratory wheezing and prolonged expiration. Also on admission his creatinine was higher than usual. Patient is not on home oxygen, he is not on home steroids On admission his creatinine 1.5, compared to 1.25 when he discharge on November 06. His sugars and controlled in the 300 to 400s. He has negative troponin, normal liver enzymes and mild hyponatremia at 133. Influenza is negative. Chest x-ray showing left upper lobe nodule and bronchitis or asthma. EKG: Normal sinus rhythm at 89, no significant ST-T changes 01/28/2019 hyperglycemia, steroid-induced, currently on insulin drip. Influenza tested negative. Maintaining O2 sats in the high 90s on room air. Continues on nebulized bronchodilators, diuretics, azithromycin. Breathing significantly improved without wheezing. Creatinine 2.16. Sodium 132. Objective - Vital Signs Vital signs: Vital Signs Temp 97.3 F L 01/28/19 13:06 Pulse 91 01/28/19 13:06 Resp 16 01/28/19 13:06 BP 145/62 01/28/19 13:06 Pulse Ox 98 01/28/19 13:06 Intake & Output 01/27/19 01/28/19 01/28/19 18:59 06:59 18:59 Intake Total 1200 105.750 651.400 Balance 1200 105.750 651.400 Weight 87.09 kg Intake: Intake, IV Titration 105.750 51.400 Amount Insulin Regular 100 unit 105.750 51.400 In Sodium Chloride 0.9% 100 ml @ Titrate IV .Q0M [facility] Rx#:[id number] Oral 1200 600 Other: # Voids 4 2 4 - Exam GENERAL: The patient is alert and oriented x3, not in any acute distress. Well developed, well nourished. HEENT: Pupils are round and equally reacting to light. EOMI. No scleral icterus. No conjunctival pallor. Normocephalic, atraumatic. No pharyngeal erythema. No thyromegaly. CARDIOVASCULAR: S1 and S2 present. No murmurs, rubs, or gallops. -PULMONARY: Chest is clear to auscultation, diminished bases with fine bibasilar crackles with expiratory wheezing ABDOMEN: Soft, nontender, nondistended, normoactive bowel sounds. No palpable organomegaly. MUSCULOSKELETAL: No joint swelling or deformity. EXTREMITIES: No cyanosis, clubbing, or pedal edema. NEUROLOGICAL: Gross neurological examination did not reveal any focal deficits. SKIN: No rashes. - Labs CBC & Chem 7: 01/28/19 08:36 01/28/19 08:36 Labs: Abnormal Lab Results - Last 24 Hours (Table) 01/26/19 01/27/19 01/27/19 Range/Units 15:51 17:36 19:14 WBC (3.8-10.6) k/uL RBC (4.30-5.90) m/uL Hgb (13.0-17.5) gm/dL Hct (39.0-53.0) % Neutrophils # (1.3-7.7) k/uL Lymphocytes # (1.0-4.8) k/uL Sodium (137-145) mmol/L BUN (9-20) mg/dL Creatinine (0.66-1.25) mg/dL Glucose (74-99) mg/dL POC Glucose (mg/dL) 493 H 488 H (75-99) mg/dL Hemoglobin A1c 10.2 H (4.0-6.0) % 01/27/19 01/27/19 01/27/19 Range/Units 20:07 20:39 21:10 WBC (3.8-10.6) k/uL RBC (4.30-5.90) m/uL Hgb (13.0-17.5) gm/dL Hct (39.0-53.0) % Neutrophils # (1.3-7.7) k/uL Lymphocytes # (1.0-4.8) k/uL Sodium (137-145) mmol/L BUN (9-20) mg/dL Creatinine (0.66-1.25) mg/dL Glucose (74-99) mg/dL POC Glucose (mg/dL) 482 H 414 H 336 H (75-99) mg/dL Hemoglobin A1c (4.0-6.0) % 01/27/19 01/27/19 01/28/19 Range/Units 21:41 22:14 00:14 WBC (3.8-10.6) k/uL RBC (4.30-5.90) m/uL Hgb (13.0-17.5) gm/dL Hct (39.0-53.0) % Neutrophils # (1.3-7.7) k/uL Lymphocytes # (1.0-4.8) k/uL Sodium (137-145) mmol/L BUN (9-20) mg/dL Creatinine (0.66-1.25) mg/dL Glucose (74-99) mg/dL POC Glucose (mg/dL) 272 H 234 H 101 H (75-99) mg/dL Hemoglobin A1c (4.0-6.0) % 01/28/19 01/28/19 01/28/19 Range/Units 04:25 06:32 08:35 WBC (3.8-10.6) k/uL RBC (4.30-5.90) m/uL Hgb (13.0-17.5) gm/dL Hct (39.0-53.0) % Neutrophils # (1.3-7.7) k/uL Lymphocytes # (1.0-4.8) k/uL Sodium (137-145) mmol/L BUN (9-20) mg/dL Creatinine (0.66-1.25) mg/dL Glucose (74-99) mg/dL POC Glucose (mg/dL) 193 H 190 H 265 H (75-99) mg/dL Hemoglobin A1c (4.0-6.0) % 01/28/19 01/28/19 01/28/19 Range/Units 08:36 08:36 10:32 WBC 18.6 H (3.8-10.6) k/uL RBC 3.75 L (4.30-5.90) m/uL Hgb 11.2 L (13.0-17.5) gm/dL Hct 34.1 L (39.0-53.0) % Neutrophils # 17.6 H (1.3-7.7) k/uL Lymphocytes # 0.4 L (1.0-4.8) k/uL Sodium 132 L (137-145) mmol/L BUN 51 H (9-20) mg/dL Creatinine 2.16 H (0.66-1.25) mg/dL Glucose 234 H (74-99) mg/dL POC Glucose (mg/dL) 360 H (75-99) mg/dL Hemoglobin A1c (4.0-6.0) % 01/28/19 Range/Units 12:31 WBC (3.8-10.6) k/uL RBC (4.30-5.90) m/uL Hgb (13.0-17.5) gm/dL Hct (39.0-53.0) % Neutrophils # (1.3-7.7) k/uL Lymphocytes # (1.0-4.8) k/uL Sodium (137-145) mmol/L BUN (9-20) mg/dL Creatinine (0.66-1.25) mg/dL Glucose (74-99) mg/dL POC Glucose (mg/dL) 318 H (75-99) mg/dL Hemoglobin A1c (4.0-6.0) % Microbiology - Last 24 Hours (Table) 01/27/19 07:17 Blood Culture - Preliminary Blood No Growth after 24 hours Assessment and Plan Assessment: -Acute COPD exacerbation -Acute renal failure -unControlled diabetes mellitus with hyperglycemia, steroid-induced -Mild hyponatremia -History of left upper lung cancer, status post resection. Status post chemotherapy -History of Coronary artery disease -History of COPD -History of DVT for which patient is on oral anti-coagulation which will be continued -Diabetes mellitus -Hyperlipidemia -Benign prostatic hypertrophy Plan: Continue on current medication regime , Xarelto, Pepcid, diuretics ,monitoring and symptomatic treatment. Hyperglycemia, steroid-induced. IV steroids weaned to oral prednisone. Monitor overnight, plan for discharge tomorrow pending pulmonary clearance. Maintain nebulized bronchodilators. Mildly elevated renal function, RAFAEL inhibitor placed on hold. Close monitoring of renal function with repeat labs ordered for a.m. The impression and plan of care has been dictated as directed. : I performed a history and examination of this patient, discussed the same with the dictator. I agree with the dictator's note ,documented as a scribe. Any additional findings or plans will be noted.
[2019-01-28] MEDS ORDERED: INSULIN DETEMIR (LEVEMIR) 100 UNIT/ML SYR SQ ONE (16:13)
[2019-01-28 16:36] LABS: Glucose,Whole Blood 297 mg/dL (75-99)
[2019-01-28 18:30] LABS: Glucose,Whole Blood 248 mg/dL (75-99)
[2019-01-28 20:44] LABS: Glucose,Whole Blood 282 mg/dL (75-99)
[2019-01-28] MEDS: INSULIN DETEMIR (LEVEMIR) 100 UNIT/ML SYR SQ SCH (21:01)
[2019-01-28 22:36] LABS: Glucose,Whole Blood 285 mg/dL (75-99)
[2019-01-29 00:39] LABS: Glucose,Whole Blood 282 mg/dL (75-99)
[2019-01-29 02:37] LABS: Glucose,Whole Blood 239 mg/dL (75-99)
[2019-01-29 04:35] LABS: Glucose,Whole Blood 212 mg/dL (75-99)
[2019-01-29 06:18] VITALS: BP 117/55; TEMP 98.5
[2019-01-29 06:21] LABS: Glucose,Whole Blood 186 mg/dL (75-99)
[2019-01-29 08:11] LABS: Basophils % (A) 0 %; Eosinophils # (A) 0.1 k/uL (0-0.7); Eosinophils % (A) 0 %; HCT 35.2 % (39.0-53.0); HGB 11.4 gm/dL (13.0-17.5); Lymphocytes # (A) 0.6 k/uL (1.0-4.8); Lymphocytes % (A) 5 %; MCH 29.9 pg (25.0-35.0); MCHC 32.5 g/dL (31.0-37.0); MCV 92.1 fL (80.0-100.0); Mean Platelet Volume 8.1; Monocytes # (A) 0.7 k/uL (0-1.0); Monocytes % (A) 5 %; Neutrophils # (A) 11.4 k/uL (1.3-7.7); Neutrophils % (A) 89 %; Platelet Count 204 k/uL (150-450); RBC 3.82 m/uL (4.30-5.90); RDW 14.5 % (11.5-15.5); WBC 12.9 k/uL (3.8-10.6)
[2019-01-29 08:30] LABS: Glucose,Whole Blood 164 mg/dL (75-99)
[2019-01-29] MEDS: INSULIN ASPART (NovoLOG) 100 UNIT/ML VIAL SQ SCH (08:31)
[2019-01-29] MEDS: ATORVASTATIN 40 MG TAB PO SCH ×2 (08:31→08:32)
[2019-01-29] MEDS: INSULIN DETEMIR (LEVEMIR) 100 UNIT/ML SYR SQ SCH (08:32)
[2019-01-29] MEDS: RIVAROXABAN 20 MG TAB PO SCH (08:32)
[2019-01-29] MEDS: AZITHROMYCIN 500 MG TAB PO SCH (08:32)
[2019-01-29] MEDS: FUROSEMIDE 10 MG/ML 2 ML VIAL IV SCH (08:32)
[2019-01-29 08:33] LABS: Calcium 9.1 mg/dL (8.4-10.2); Potassium 4.5 mmol/L (3.5-5.1)
[2019-01-29] MEDS ORDERED: predniSONE 20 MG TAB PO SCH (09:00)
[2019-01-29] MEDS: IPRATROPIUM-ALBUTEROL 3 ML NEB INHALATION SCH (09:29)
[2019-01-29] MEDS: SYMBICORT 160-4.5 MCG INHALER INHALATION SCH (09:29)
[2019-01-29 09:46] VITALS: PULSE 86
[2019-01-29 10:43] LABS: Glucose,Whole Blood 213 mg/dL (75-99)
--- NOTE | 2019-01-29 15:25 | P.PN ---
Subjective Progress Note Date: 01/29/19 Principal diagnosis: Acute exacerbation of chronic obstructive pulmonary disease. This is a very pleasant 73-year-old gentleman who follows with Dr. Boyer as his primary care physician. He has a history of hypertension, diabetes mellitus, hyperlipidemia, left lower extremity DVT anticoagulate with Xarelto. He also has a history of a small right middle lobe nodule that Dr. Boyer had been following in the outpatient setting. During that time he was found to have a left lung nodule as well this was more concerning on the PET scan. The location of bronchoscopy was negative however follow-up PET scan did show increasing in size and SUV's. He was subsequently sent at [facility] and underwent a left upper lobectomy and the pathology did come back positive for adenocarcinoma. That was in 2018. He had been followed with Dr. Davila for chemotherapy. He was last seen in our office thyroid 2018 and was doing fairly well. He had completed his chemotherapy. He presented here to the emergency room yesterday after developing increasing shortness of breath. He did have a fever of 100. He did have some cough and congestion. Nonproductive. Chest x-ray reveals chronic changes with some strandy left upper lobe atelectasis and continued right upper lobe nodularity. There was some peribronchial cuffing suspicious for bronchitis. He is seen today in consultation on the regular medical floor. He is awake and alert in no acute distress. He is breathing easier today as compared to yesterday. ProBNP 155. Troponin negative. Influenza screen negative. He is currently maintaining good O2 saturations in the mid 90s on room air. He's afebrile. Hemodynamically stable. He has been initiated on Symbicort, DuoNeb inhalations, IV Solu-Medrol. He is on IV diuretics and antibiotics in the form of azithromycin. Anticoagulated with Xarelto. The patient is seen today 01/28/2019 in follow-up on the regular medical floor. He is awake and alert in no acute distress. He is breathing easier today as compared to yesterday. He is maintaining good O2 saturations in the upper 90s on room air. He's been afebrile. Hemodynamically stable. Blood culture reveals no growth. White count 18.6. Hemoglobin 11.2. Creatinine 2.16. He is having some issues with hallucinations and hyperglycemia. Remains on IV Solu- Medrol. He is on insulin drip at 8 units per hour. The patient is seen again today 01/29/2018 in follow-up on the regular medical floor. He's been up ambulating in the hallway. Doing well from the pulmonary standpoint. No worsening shortness of breath, cough or congestion. He is back to his baseline and anxious to go home. Objective - Vital Signs Vital signs: Vital Signs Temp 98.5 F 01/29/19 06:15 Pulse 86 01/29/19 09:43 Resp 16 01/29/19 06:15 BP 117/55 01/29/19 06:15 Pulse Ox 94 L 01/29/19 06:15 Intake & Output 01/28/19 01/29/19 01/29/19 18:59 06:59 18:59 Intake Total 680.508 63.108 5.292 Balance 680.508 63.108 5.292 Weight 87.09 kg Intake: Intake, IV Titration 80.508 63.108 5.292 Amount Insulin Regular 100 unit 80.508 63.108 5.292 In Sodium Chloride 0.9% 100 ml @ Titrate IV .Q0M [facility] Rx#:[id number] Oral 600 Other: # Voids 4 3 - Exam GENERAL EXAM: Alert, active, comfortable in no apparent distress. On room air. HEAD: Normocephalic. EYES: Normal reaction of pupils, equal size. NOSE: Clear with pink turbinates. THROAT: No erythema or exudates. NECK: No masses, no JVD. CHEST: No chest wall deformity. LUNGS: Equal air entry with no crackles, wheeze, rhonchi or dullness. CVS: S1 and S2 normal with no audible murmur, regular rhythm. ABDOMEN: No hepatosplenomegaly, normal bowel sounds, no guarding or rigidity. SPINE: No scoliosis or deformity SKIN: No rashes CENTRAL NERVOUS SYSTEM: No focal deficits, tone is normal in all 4 extremities. EXTREMITIES: There is no peripheral edema. No clubbing, no cyanosis. Pe ripheral pulses are intact. - Labs CBC & Chem 7: 01/29/19 07:42 01/29/19 07:42 Labs: Abnormal Lab Results - Last 24 Hours (Table) 01/28/19 01/28/19 01/28/19 Range/Units 16:33 18:29 20:38 WBC (3.8-10.6) k/uL RBC (4.30-5.90) m/uL Hgb (13.0-17.5) gm/dL Hct (39.0-53.0) % Neutrophils # (1.3-7.7) k/uL Lymphocytes # (1.0-4.8) k/uL Sodium (137-145) mmol/L BUN (9-20) mg/dL Creatinine (0.66-1.25) mg/dL Glucose (74-99) mg/dL POC Glucose (mg/dL) 297 H 248 H 282 H (75-99) mg/dL 01/28/19 01/29/19 01/29/19 Range/Units 22:34 00:38 02:35 WBC (3.8-10.6) k/uL RBC (4.30-5.90) m/uL Hgb (13.0-17.5) gm/dL Hct (39.0-53.0) % Neutrophils # (1.3-7.7) k/uL Lymphocytes # (1.0-4.8) k/uL Sodium (137-145) mmol/L BUN (9-20) mg/dL Creatinine (0.66-1.25) mg/dL Glucose (74-99) mg/dL POC Glucose (mg/dL) 285 H 282 H 239 H (75-99) mg/dL 01/29/19 01/29/19 01/29/19 Range/Units 04:33 06:19 07:42 WBC 12.9 H (3.8-10.6) k/uL RBC 3.82 L (4.30-5.90) m/uL Hgb 11.4 L (13.0-17.5) gm/dL Hct 35.2 L (39.0-53.0) % Neutrophils # 11.4 H (1.3-7.7) k/uL Lymphocytes # 0.6 L (1.0-4.8) k/uL Sodium (137-145) mmol/L BUN (9-20) mg/dL Creatinine (0.66-1.25) mg/dL Glucose (74-99) mg/dL POC Glucose (mg/dL) 212 H 186 H (75-99) mg/dL 01/29/19 01/29/19 01/29/19 Range/Units 07:42 08:27 10:39 WBC (3.8-10.6) k/uL RBC (4.30-5.90) m/uL Hgb (13.0-17.5) gm/dL Hct (39.0-53.0) % Neutrophils # (1.3-7.7) k/uL Lymphocytes # (1.0-4.8) k/uL Sodium 136 L (137-145) mmol/L BUN 55 H (9-20) mg/dL Creatinine 1.90 H (0.66-1.25) mg/dL Glucose 116 H (74-99) mg/dL POC Glucose (mg/dL) 164 H 213 H (75-99) mg/dL Microbiology - Last 24 Hours (Table) 01/27/19 07:17 Blood Culture - Preliminary Blood No Growth after 48 hours Assessment and Plan Assessment: Impression: #1 Acute exacerbation of chronic obstructive pulmonary disease complicated by purulent tracheobronchitis. FEV1 value of 47% of predicted. #2 History of adenocarcinoma of the left lung status post left upper lobectomy with chemotherapy. #3 History of right lung nodule. #4 History of left lower extremity DVT, anticoagulated with Xarelto. #5 Hypertension. #6 Hyperlipidemia. #7 Diabetes mellitus with steroid-induced hyperglycemia. #8 Benign prosthetic hypertrophy. #9 Coronary artery disease. Plan: The patient was seen and evaluated by Dr. Boyer. He is cleared for discharge from the pulmonary standpoint. Complete her course of prednisone taper. Continue his home pulmonary medications. Follow-up in our office in 1-2 weeks' time. He is encouraged to call sooner with any recurrence of symptoms or other questions or concerns. I, the cosigning physician, performed a history & physical examination of the patient. Lungs sounds clear. Diminished. Maintaining good O2 saturations in the 90s on room air. I discussed the assessment and plan of care with my nurse practitioner, Nohemi Garcia. I attest to the above note as dictated by her.
--- NOTE | 2019-01-29 15:34 | P.DS ---
<Big HornAvelina deleon - Last Filed: 01/29/19 15:21> Providers Expected date of discharge: 01/29/19 Attending physician: Dr. Montero Final Diagnoses: -Acute COPD exacerbation -Acute renal failure -unControlled diabetes mellitus with hyperglycemia, steroid-induced -Mild hyponatremia -History of left upper lung cancer, status post resection. Status post chemotherapy -History of Coronary artery disease -History of COPD -History of DVT for which patient is on oral anti-coagulation which will be cont inued -Diabetes mellitus -Hyperlipidemia -Benign prostatic hypertrophy Hospital course:Interval history:This is a pleasant 73 years old male with past medical history of coronary artery disease, COPD, diabetes mellitus, CVA/TIA, deep venous thrombosis, hyperlipidemia, hypertension, osteoarthritis, BPH, syncope. Patient presents because of worsening dyspnea of 1-2 days of duration associated with a dry cough. No chest pain. On examination he had expiratory wheezing and prolonged expiration. Also on admission his creatinine was higher than usual. Patient is not on home oxygen, he is not on home steroids On admission his creatinine 1.5, compared to 1.25 when he discharge on November 2018. His sugars and controlled in the 300 to 400s. He has negative troponin, normal liver enzymes and mild hyponatremia at 133. Influenza is negative. Chest x-ray showing left upper lobe nodule and bronchitis or asthma. EKG: Normal sinus rhythm at 89, no significant ST-T changes 01/28/2019 hyperglycemia, steroid-induced, currently on insulin drip. Influenza tested negative. Maintaining O2 sats in the high 90s on room air. Continues on nebulized bronchodilators, diuretics, azithromycin. Breathing significantly improved without wheezing. Creatinine 2.16. Sodium 132. Hyperglycemia, steroid-induced. IV steroids weaned to oral prednisone. Blood sugars improved. Mildly elevated renal function, BRYN inhibitor placed on hold. Renal function improving currently 1.9. Discussed with patient, though Norvasc may lead to peripheral edema, will continue. BRYN inhibitor remains on hold and will repeat BMP in 3 days with PCP to further evaluate renal function .Significant clinical improvement. Cleared by pulmonary for discharge. Patient is being discharged home in a stable condition with guarded prognosis. - Exam GENERAL: alert and oriented x3, no acute distress. CARDIOVASCULAR: S1 and S2 present. No murmurs, rubs, or gallops. -PULMONARY: Chest is clear to auscultation, diminished bases with fine occasional expiratory wheezing ABDOMEN: Soft, nontender, nondistended, normoactive bowel sounds. No palpable organomegaly. NEUROLOGICAL: Gross neurological examination did not reveal any focal deficits. The impression and plan of care has been dictated as directed. : I performed a history and examination of this patient, discussed the same with the dictator. I agree with the dictator's note ,documented as a scribe. Any additional findings or plans will be noted. Time taken: 35 minutes Patient Condition at Discharge: Stable Plan - Discharge Summary Discharge Rx Participant: No New Discharge Prescriptions: New Atorvastatin [Lipitor] 40 mg PO DAILY #30 tab predniSONE 10 mg PO DIRECTED #30 tab Azithromycin [Zithromax] 500 mg PO DAILY #5 tab amLODIPine BESYLATE [Norvasc] 5 mg PO DAILY #1 tablet Continue PARoxetine [Paxil] 20 mg PO DAILY Rivaroxaban [Xarelto] 20 mg PO DAILY Furosemide [Lasix] 20 mg PO DAILY Isosorbide Mononitrate ER [Imdur] 30 mg PO DAILY Insulin Detemir [Levemir Flextouch] 72 units SQ HS Budesonide-Formot 160-4.5 Mcg [Symbicort 160-4.5 Mcg Inhaler] 2 puff INHALATION RT-BID #1 inhaler Discontinued Lisinopril [Prinivil] 10 mg PO DAILY amLODIPine [Norvasc] 5 mg PO DAILY Discharge Medication List PARoxetine [Paxil] 20 mg PO DAILY 11/15/14 [History] Furosemide [Lasix] 20 mg PO DAILY 08/31/18 [History] Rivaroxaban [Xarelto] 20 mg PO DAILY 08/31/18 [History] Isosorbide Mononitrate ER [Imdur] 30 mg PO DAILY 10/05/18 [History] Insulin Detemir [Levemir Flextouch] 72 units SQ HS 11/13/18 [History] Budesonide-Formot 160-4.5 Mcg [Symbicort 160-4.5 Mcg Inhaler] 2 puff INHALATION RT-BID #1 inhaler 11/16/18 [Rx] Atorvastatin [Lipitor] 40 mg PO DAILY #30 tab 01/28/19 [Rx] Azithromycin [Zithromax] 500 mg PO DAILY #5 tab 01/28/19 [Rx] predniSONE 10 mg PO DIRECTED #30 tab 01/28/19 [Rx] amLODIPine BESYLATE [Norvasc] 5 mg PO DAILY #1 tablet 01/29/19 [Rx] Follow up Appointment(s)/Referral(s): Renzo Boyer MD [Primary Care Provider] - 02/04/19 1:45 pm Carolann Chacon MD [STAFF PHYSICIAN] - 02/12/19 9:00 am (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 resume home dose norvasc, recheck BMP in 3 days with PCP Discharge Disposition: HOME SELF-CARE <Champ Montero E - Last Filed: 01/29/19 21:53> Providers Date of admission: 01/28/19 15:12 Attending physician: Lawson Kent I have discussed the plan and I have reviewed the note with Bailey Fragoso and I agree with it except what is mentioned below Pt is seen and examined by me at bed side his symptoms of dyspnea and other are greatly improved on the current therapy . on the day of discharge she returned to her baseline with no chest pain no dyspnea, no change in urine or bowel habit , no nausea or vomiting , no abd pain , she is tolerating diet well . no fever a.sh Consults: 01/26/19 20:36 Consult Physician Routine Consulting Provider: Renzo Boyer Consult Reason/Comments: Known to patient Do you want consulting provider notified?: Yes, Notify in am 01/27/19 02:31 Consult Physician Routine Consulting Provider: [facility] Consult Reason/Comments: Swollen legs, takes IV Lasix Do you want consulting provider notified?: Yes, Notify in am Primary care physician: Renzo Boyer
== END 2019-01-29 12:04 | disposition home or self-care (01) | DRG 638 ==
LOC: EC 14:59 → 4MS4W 17:33 → OBSVTOIN 01-28 15:12
PROVIDERS: ADMIT Hospitalist; ATTEND Hospitalist
DX: E11.65 Type 2 diabetes mellitus with hyperglycemia (principal); J44.1 Chronic obstructive pulmonary disease with (acute) exacerbation; N17.9 Acute kidney failure, unspecified; J98.11 Atelectasis; E87.1 Hypo-osmolality and hyponatremia; R44.3 Hallucinations, unspecified; E11.22 Type 2 diabetes mellitus with diabetic chronic kidney disease; I25.10 Atherosclerotic heart disease of native coronary artery without angina pectoris; R25.1 Tremor, unspecified; N18.9 Chronic kidney disease, unspecified; I12.9 Hypertensive chronic kidney disease with stage 1 through stage 4 chronic kidney disease, or unspecified chronic kidney disease; E78.5 Hyperlipidemia, unspecified; N40.0 Benign prostatic hyperplasia without lower urinary tract symptoms; M19.90 Unspecified osteoarthritis, unspecified site; R60.9 Edema, unspecified; F41.9 Anxiety disorder, unspecified; F32.9 Major depressive disorder, single episode, unspecified; I25.2 Old myocardial infarction; T38.0X5A Adverse effect of glucocorticoids and synthetic analogues, initial encounter; Z87.01 Personal history of pneumonia (recurrent); Z86.718 Personal history of other venous thrombosis and embolism; Z79.899 Other long term (current) drug therapy; Z79.01 Long term (current) use of anticoagulants; Z79.4 Long term (current) use of insulin; Z79.51 Long term (current) use of inhaled steroids; Z87.891 Personal history of nicotine dependence; Z90.49 Acquired absence of other specified parts of digestive tract; Z98.42 Cataract extraction status, left eye; Z98.41 Cataract extraction status, right eye; Z92.21 Personal history of antineoplastic chemotherapy; Z90.2 Acquired absence of lung [part of]; Z85.118 Personal history of other malignant neoplasm of bronchus and lung; Z91.14 Patient's other noncompliance with medication regimen; Z86.73 Personal history of transient ischemic attack (TIA), and cerebral infarction without residual deficits; Z83.3 Family history of diabetes mellitus
CPT/HCPCS: 36415; 71046; 80048; 82140; 83036; 83605; 83735; 83880; 84484; 85025; 87040; 87502; 93005; 93306; 94640; 99285

== ENCOUNTER → 2019-04-21 | Outpatient (CLI) | payer MEDICARE, OTHER ==
[2019-04-21 12:54] LABS: Amorphous Sediment,Urine Rare /hpf; Appearance,Urine Clear (Clear); Bilirubin,Urine Negative (Negative); Blood,Urine Small (Negative); Color,Urine Yellow; Glucose,Urine (UA) Negative (Negative); Hyaline Casts,Urine 3 /lpf (0-2); Ketones,Urine Negative (Negative); Leukocyte Esterase,Urine Negative (Negative); Mucus,Urine Rare /hpf; Nitrite,Urine Negative (Negative); PH, Urine 5.5 (5.0-8.0); Protein,Urine 2+ (Negative); RBC,Urine 2 /hpf (0-5); Specific Gravity,Urine 1.014 (1.001-1.035); Squamous Epithelial Cell,Urine 1 /hpf (0-4); Urobilinogen,Urine <2.0 mg/dL (<2.0); WBC,Urine 2 /hpf (0-5)
[2019-04-21 19:27] LABS: African American GFR (CKD) 45.7 (60.0-200.0); Albumin 3.9 g/dL (3.80-4.90); Albumin/Globulin Ratio 1.86 (1.60-3.17); BUN/Creat Ratio 15.29 Ratio (12.00-20.00); Calcium 9.4 mg/dL (8.7-10.3); Globulin 2.1 g/dL (1.6-3.3); Potassium 4.8 mmol/L (3.5-5.5); Total Bilirubin 0.5 mg/dL (0.3-1.2)
== END | disposition home or self-care (01) ==
LOC: LABWHC1 12:23
PROVIDERS: ATTEND Internal Medicine Critical Care Medicine
DX: E11.22 Type 2 diabetes mellitus with diabetic chronic kidney disease (principal); N18.9 Chronic kidney disease, unspecified
CPT/HCPCS: 36415; 80053; 81001

== ENCOUNTER → 2019-05-03 | Outpatient (CLI) | payer MEDICARE, OTHER | END | disposition home or self-care (01) | LOC: RADPETMAIN 09:44 | PROVIDERS: ATTEND Internal Medicine Critical Care Medicine | DX: Z53.9 Procedure and treatment not carried out, unspecified reason (principal) ==

== ENCOUNTER → 2019-05-09 | Outpatient (CLI) | payer MEDICARE, OTHER ==
--- NOTE | 2019-05-14 07:44 | PE ---
EXAMINATION TYPE: PET CT fusion skull to thigh DATE OF EXAM: 05/09/2019 COMPARISON: CT abdomen and pelvis October 25, 2018. CTA chest August 31, 2018. HISTORY: Newly diagnosed left lung cancer on recent biopsy. TECHNIQUE: Following the intravenous administration of 11.749 mCi of F-18 FDG, whole body images are performed from the skull base to the midthigh. Images are reviewed on the computer in the coronal, axial, and sagittal planes. Reconstructed rotating images are created on independent workstation and reviewed on the computer. A noncontrast CT is performed in conjunction with the PET scan. SCAN: Initial Scan FINDINGS: SKULL BASE AND NECK: No definitive areas of abnormal hypermetabolic uptake. CHEST, MEDIASTINUM, AND HILAR REGION: Background of mild to moderate underlying emphysematous changes redemonstrated. There is central right infrahilar hypermetabolic round nodule measuring 2.0 cm axial image 102, max S UV is 5.58. There are additional scattered smaller nodules throughout the left lower lung, for refere nce just posterior superior to largest nodule there is 1.4 x 0.8 cm hypermetabolic nodule axial image 100, max SUV is 4.86. There are additional scattered subcentimeter nodules with mild hypermetabolic uptake, max SUV is less than 2.5 for reference 2 nodules are noted laterally axial image 95 and addit ional small nodules are scattered to the level of the diaphragm in the left lung. No definitive right-sided hypermetabolic nodules. No definitive hypermetabolic thoracic adenopathy. ABDOMEN AND PELVIS: No suspicious hypermetabolic uptake. No adrenal masses are evident. There is loss of normal subcutaneous fat with soft tissue density extending to skin surface involving the right lower quadrant anterior abdominal wall axial image 200, max SUV is 4.5. Correlate clinical ly to exclude soft tissue infection or cellulitis at this level. OSSEOUS STRUCTURES: No suspicious hypermetabolic uptake. OTHER CT: Mild to moderate calcified plaque at bilateral carotid bulb level is present. Coronary artery calcification is seen which is noted marked underlying coronary artery disease. Small sliding-type hiatal hernia. Cholecystectomy clips. Moderate to severe fat replaced atrophy of t he pancreas. Enlarged prostate gland consistent with BPH is present. Few diverticula are seen in the sigmoid colo n. IMPRESSION: 2 adjacent hypermetabolic nodules are present. There are additional suspicious subcentime ter nodules which are increased in size from August 31, 2018 CT. No right sided disease or adenopath y. No metastatic disease is evident. Correlate for anterior abdominal wall right lower quadrant soft tissue infection or cellulitis. HISTORY: TECHNIQUE: Following the intravenous administration of mCi of F-18 FDG, whole body images are perfor med from the skull base to the midthigh. Images are reviewed on the computer in the coronal, axial, and sagittal planes. Reconstructed rotating images are created on independent workstation and review ed on the computer. A localization and attenuation correction CT is performed in conjunction with t he PET scan. SCAN: FINDINGS: SKULL BASE AND NECK: CHEST, MEDIASTINUM, AND HILAR REGION: ABDOMEN AND PELVIS: OSSEOUS STRUCTURES: OTHER CT: IMPRESSION:
== END | disposition home or self-care (01) ==
LOC: RADPETMAIN 15:27
PROVIDERS: ATTEND Internal Medicine Critical Care Medicine
DX: C34.12 Malignant neoplasm of upper lobe, left bronchus or lung (principal); E11.9 Type 2 diabetes mellitus without complications
CPT/HCPCS: 78815; A9552

== ENCOUNTER 2019-06-16 15:27 | Emergency (ER) | payer MEDICARE, OTHER ==
[2019-06-16 15:42] VITALS: RESP 18
[2019-06-16 16:10] LABS: Glucose,Whole Blood 102 mg/dL (75-99)
[2019-06-16 16:32] LABS: Glucose,Whole Blood 75 mg/dL (75-99)
[2019-06-16 17:03] LABS: Glucose,Whole Blood 61 mg/dL (75-99)
[2019-06-16 17:24] LABS: Glucose,Whole Blood 69 mg/dL (75-99)
[2019-06-16 17:46] LABS: Glucose,Whole Blood 103 mg/dL (75-99)
[2019-06-16 18:07] LABS: Glucose,Whole Blood 118 mg/dL (75-99)
[2019-06-16 18:56] VITALS: BP 156/70; PULSE 76; TEMP 98.5
--- NOTE | 2019-06-16 19:06 | ED ---
General Adult HPI - General Chief complaint: Recheck/Abnormal Lab/Rx Stated complaint: high blood sugar Time Seen by Provider: 06/16/19 15:56 Source: patient, family, RN notes reviewed Mode of arrival: wheelchair - History of Present Illness Initial comments: 73-year-old male with a compensated past medical history presents to the emergency department for a chief complaint of high blood sugar. Patient states that he ate a sandwich from [employer] an orange juice today and noticed his blood sugar was 325. States he took 25 units of NovoLog around 10 AM and again took another 10 units around 1 PM. States he does not usually take this much insulin. States he started to feel a little sweaty and a little off. When he presented to the emergency department his blood sugar was 104. Patient denies any other complaints at this time.Patient has no other complaints at this time including shortness of breath, chest pain, abdominal pain, nausea or vomiting, headache, or visual changes. - Related Data Home Medications Medication Instructions Recorded Confirmed PARoxetine [Paxil] 20 mg PO DAILY 11/15/14 01/26/19 Furosemide [Lasix] 20 mg PO DAILY 08/31/18 01/26/19 Rivaroxaban [Xarelto] 20 mg PO DAILY 08/31/18 01/26/19 Isosorbide Mononitrate ER [Imdur] 30 mg PO DAILY 10/05/18 01/26/19 Insulin Detemir [Levemir Flextouch] 72 units SQ HS 11/13/18 01/26/19 Previous Rx's Medication Instructions Recorded Budesonide-Formot 160-4.5 Mcg 2 puff INHALATION RT-BID #1 inhaler 11/16/18 [Symbicort 160-4.5 Mcg Inhaler] Atorvastatin [Lipitor] 40 mg PO DAILY #30 tab 01/28/19 Azithromycin [Zithromax] 500 mg PO DAILY #5 tab 01/28/19 predniSONE 10 mg PO DIRECTED #30 tab 01/28/19 amLODIPine BESYLATE [Norvasc] 5 mg PO DAILY #1 tablet 01/29/19 Allergies Allergy/AdvReac Type Severity Reaction Status Date / Time No Known Allergies Allergy Verified 06/16/19 15:42 Review of Systems ROS Statement: Those systems with pertinent positive or pertinent negative responses have been documented in the HPI. ROS Other: All systems not noted in ROS Statement are negative. Past Medical History Past Medical History: Coronary Artery Disease (CAD), COPD, CVA/TIA, Diabetes Mellitus, Deep Vein Thrombosis (DVT), Hyperlipidemia, Hypertension, Myocardial Infarction ([place]), Osteoarthritis (OA), Pneumonia, Prostate Disorder, Syncope Additional Past Medical History / Comment(s): COPD, DM-2 BPH, SKY lesion measuring 1.9 x 1.6 cm in size and not showing any metabolic activity, chronic neck/back pain, BPH Last Myocardial Infarction Date:: 05/24/12 History of Any Multi-Drug Resistant Organisms: None Reported Past Surgical History: Back Surgery, Cholecystectomy, Heart Catheterization, Hernia Repair Additional Past Surgical History / Comment(s): 2011 cardiac cath - treated medically, lower back surgery, bilateral cataract removal, abdominal hernia repair, bronchoscopy. SKY lobe removed. lung biopsy. Past Anesthesia/Blood Transfusion Reactions: No Reported Reaction Past Psychological History: Anxiety, Depression Smoking Status: Former smoker Past Alcohol Use History: None Reported Past Drug Use History: None Reported - Past Family History Mother Family Medical History: No Reported History Father Family Medical History: Diabetes Mellitus Additional Family Medical History / Comment(s): Father of diabetes at the age of 83 yrs. General Exam General appearance: alert, in no apparent distress Head exam: Present: atraumatic, normocephalic, normal inspection Eye exam: Present: normal appearance, PERRL, EOMI. Absent: scleral icterus, conjunctival injection, periorbital swelling ENT exam: Present: normal exam, mucous membranes moist Neck exam: Present: normal inspection, full ROM. Absent: tenderness, meningismus, lymphadenopathy Respiratory exam: Present: normal lung sounds bilaterally. Absent: respiratory distress, wheezes, rales, rhonchi, stridor Cardiovascular Exam: Present: regular rate, normal rhythm, normal heart sounds. Absent: systolic murmur, diastolic murmur, rubs, gallop, clicks GI/Abdominal exam: Present: soft, normal bowel sounds. Absent: distended, tenderness, guarding, rebound, rigid Neurological exam: Present: alert Psychiatric exam: Present: normal affect, normal mood Skin exam: Present: warm, dry, intact, normal color. Absent: rash Course Vital Signs 06/16/19 06/16/19 15:39 18:56 Temperature 98.3 F 98.5 F Pulse Rate 97 76 Respiratory 18 18 Rate Blood Pressure 113/66 156/70 O2 Sat by Pulse 95 95 Oximetry Medical Decision Making - Medical Decision Making 73-year-old male presents to the emergency department for hyperglycemia. Patient took about 25 units at 10 AM and about 10 units at 1 PM of NovoLog. When patient presented he felt a little weak and sweaty. On presentation he had a glucose of 104. This did decrease to 61. Patient was given orange juice and jaziel crackers with peanut butter. Patient ate these and stated he immediately felt much better. Glucose was rechecked and was 103 and then 118. Patient was monitored for over 3 hours in the emergency department. I do not suspect glucose to decrease again as he is out of the max effect window for NovoLog. However she is aware to monitor his glucose tonight and check it if he starts to feel any symptoms. - Lab Data Lab Results 06/16/19 06/16/19 06/16/19 Range/Units 15:44 16:31 17:01 POC Glucose (mg/dL) 102 H 75 61 L (75-99) mg/dL POC Glu Debt Management Counselor Emily Mckenzie Nicole Thomas, Kara 06/16/19 06/16/19 06/16/19 Range/Units 17:23 17:44 18:05 POC Glucose (mg/dL) 69 L 103 H 118 H (75-99) mg/dL POC Glu Debt Management Counselor Pam Villa, Pam Stein Disposition Clinical Impression: Hypoglycemia Disposition: HOME SELF-CARE Condition: Good Instructions (If sedation given, give patient instructions): Hypoglycemia in a Person with Diabetes (ED), What to Do if Your Blood Sugar is Low (ED) Additional Instructions: Please follow up with primary care in 1-2 days. Please return to the emergency department if you have any worsening symptoms. Is patient prescribed a controlled substance at d/c from ED?: No Referrals: Renzo Boyer MD [Primary Care Provider] - 1-2 days Time of Disposition: 19:05
== END 2019-06-16 19:08 | disposition home or self-care (01) ==
LOC: EC 15:27
DX: E11.649 Type 2 diabetes mellitus with hypoglycemia without coma (principal); F41.9 Anxiety disorder, unspecified; I25.2 Old myocardial infarction; I10 Essential (primary) hypertension; F32.9 Major depressive disorder, single episode, unspecified; I25.10 Atherosclerotic heart disease of native coronary artery without angina pectoris; Z79.4 Long term (current) use of insulin; Z79.01 Long term (current) use of anticoagulants; Z79.899 Other long term (current) drug therapy; Z87.891 Personal history of nicotine dependence; Z86.718 Personal history of other venous thrombosis and embolism; Z86.73 Personal history of transient ischemic attack (TIA), and cerebral infarction without residual deficits; Z95.5 Presence of coronary angioplasty implant and graft; Z83.3 Family history of diabetes mellitus
CPT/HCPCS: 36415; 99284

== ENCOUNTER → 2019-06-25 | Outpatient (CLI) | payer MEDICARE, OTHER ==
--- NOTE | 2019-06-25 12:26 | CT ---
EXAMINATION TYPE: CT chest w con DATE OF EXAM: 06/25/2019 COMPARISON: PET CT fusion 21/03/2019 HISTORY: Lung cancer CT DLP: 588 mGycm Automated exposure control for dose reduction was used. CONTRAST: CT scan of the chest is performed with IV Contrast, patient injected with 80 mL of Isovue 300. FINDINGS: LUNGS: 9010 pulmonary nodules are seen within the right lung largest within the right lung base measu res 1.7 cm versus 1.3 cm previously. 22-25 pulmonary nodules are seen within the left lung. The large st nodule is seen within the left perihilar region and measures 2.7 cm versus 2.0 cm previously. Sinc e for focal infiltrate. MEDIASTINUM: There are no greater than 1 cm hilar or mediastinal lymph nodes. No pericardial effusi on is seen. Thoracic aorta is of normal caliber. The heart is not enlarged. UPPER ABDOMEN: Cholecystectomy clips noted. OTHER: No additional significant abnormality is seen. IMPRESSION: 1. Interval increase in overall number and size of pulmonary nodules compatible with metastatic disea se.
== END | disposition home or self-care (01) ==
LOC: RADCTMAIN 10:26
PROVIDERS: ATTEND Internal Medicine Hematology & Oncology
DX: C34.12 Malignant neoplasm of upper lobe, left bronchus or lung (principal)
CPT/HCPCS: 82565; 84520; 71260; 36415; Q9967

== ENCOUNTER 2019-07-30 16:34 | Emergency (ER) | payer MEDICARE, OTHER ==
[2019-07-30 17:01] VITALS: TEMP 97.8
[2019-07-30] MEDS ORDERED: IPRATROPIUM-ALBUTEROL 3 ML NEB INHALATION STA ×2 (17:22→21:51)
[2019-07-30 17:44] LABS: Basophils # (A) 0.1 k/uL (0-0.2); Basophils % (A) 1 %; Eosinophils # (A) 0.5 k/uL (0-0.7); Eosinophils % (A) 6 %; HCT 35.8 % (39.0-53.0); HGB 12.1 gm/dL (13.0-17.5); Lymphocytes # (A) 0.8 k/uL (1.0-4.8); Lymphocytes % (A) 9 %; MCH 29.6 pg (25.0-35.0); MCHC 33.9 g/dL (31.0-37.0); MCV 87.3 fL (80.0-100.0); Mean Platelet Volume 6.9; Monocytes # (A) 0.5 k/uL (0-1.0); Monocytes % (A) 6 %; Neutrophils # (A) 6.7 k/uL (1.3-7.7); Neutrophils % (A) 77 %; Platelet Count 215 k/uL (150-450); WBC 8.7 k/uL (3.8-10.6)
[2019-07-30 18:00] LABS: Albumin 4.2 g/dL (3.5-5.0); Potassium 4.9 mmol/L (3.5-5.1); Total Bilirubin 0.4 mg/dL (0.2-1.3); Total Protein 7.2 g/dL (6.3-8.2)
[2019-07-30 18:03] LABS: INR 1.2 (<1.2); Prothrombin Time 12.2 sec (9.0-12.0)
[2019-07-30 18:16] LABS: D-Dimer 1.27 mg/L FEU (<0.60)
--- NOTE | 2019-07-30 18:22 | XR ---
EXAMINATION TYPE: XR chest 2V DATE OF EXAM: 07/30/2019 COMPARISON: 01/26/2019 HISTORY: Difficulty breathing TECHNIQUE: Frontal and lateral views of the chest are obtained. FINDINGS: Again there are subcentimeter nodular densities similar to the prior 01/26/2019 within the right upper lung. Nodular density is now also seen within the left lower lung that could represent a pulmonary vessel en face. Underlying COPD is seen with left upper lobe scarring. Prominence of the ma in pulmonary arteries suggests underlying pulmonary arterial hypertension. Flattening of the diaphrag ms on the lateral view relates underlying COPD. Cardia mediastinal silhouette is within normal limits . No focal consolidation, pleural effusion or pneumothorax. Cholecystectomy clips are seen. IMPRESSION: 1. No acute cardiopulmonary process. Findings of COPD and pulmonary arterial hypertension. 2. Bilateral nodular densities some of which are similar to the prior of 01/26/2019, one new nodular d ensity. Nonemergent follow-up CT thorax is recommended for evaluation of pulmonary nodules.
--- NOTE | 2019-07-30 18:57 | ED ---
General Adult HPI - General Chief complaint: Shortness of Breath Stated complaint: yeast infection-sent by Time Seen by Provider: 07/30/19 17:05 Source: patient Mode of arrival: wheelchair Limitations: no limitations - History of Present Illness Initial comments: Patient is a 73-year-old male presenting to emergency Department with a chief complaint of shortness of breath. Patient reports his symptoms started approximately 2-3 days ago and have increased in severity. Patient does report dyspnea on exertion. Patient does have a history of COPD and lung cancer. Patient does have a nonproductive cough with no hemoptysis. Patient had a wedge biopsy performed about one week ago. Patient denies any unilateral one-sided swelling. Patient denies any calf tenderness. Patient denies any nausea or vomiting. patient does use a nebulizer at home but not oxygen. Patient is also complaining of a possible penile yeast infection. She reports that he took medication for itprescribed by his primary care but has not hot. Patient denies dysuria but does report itching. She denies increased urgency frequency or dysuria. - Related Data Home Medications Medication Instructions Recorded Confirmed PARoxetine [Paxil] 20 mg PO DAILY 11/15/14 07/30/19 Rivaroxaban [Xarelto] 20 mg PO DAILY 08/31/18 07/30/19 Insulin Detemir [Levemir Flextouch] 80 units SQ HS 11/13/18 07/30/19 Furosemide [Lasix] 40 mg PO BID 07/30/19 07/30/19 Ipratropium-Albuterol Nebulize 3 ml INHALATION RT-TID PRN 07/30/19 07/30/19 [Duoneb 0.5 mg-3 mg/3 ml Soln] Isosorbide Mononitrate 20 mg PO DAILY 07/30/19 07/30/19 Lisinopril 40 mg PO DAILY 07/30/19 07/30/19 Simvastatin [Zocor] 40 mg PO DAILY 07/30/19 07/30/19 amLODIPine [Norvasc] 10 mg PO DAILY 07/30/19 07/30/19 levETIRAcetam [Keppra] 500 mg PO BID 07/30/19 07/30/19 Previous Rx's Medication Instructions Recorded Clotrimazole Cream [Lotrimin Cream] 1 applic TOPICAL BID #1 bottle 07/30/19 Allergies Allergy/AdvReac Type Severity Reaction Status Date / Time No Known Allergies Allergy Verified 07/30/19 18:44 Review of Systems ROS Statement: Those systems with pertinent positive or pertinent negative responses have been documented in the HPI. ROS Other: All systems not noted in ROS Statement are negative. Past Medical History Past Medical History: Coronary Artery Disease (CAD), COPD, CVA/TIA, Diabetes Mellitus, Deep Vein Thrombosis (DVT), Hyperlipidemia, Hypertension, Myocardial Infarction ([place]), Osteoarthritis (OA), Pneumonia, Prostate Disorder, Syncope Additional Past Medical History / Comment(s): COPD, DM-2 BPH, SKY lesion measuring 1.9 x 1.6 cm in size and not showing any metabolic activity, chronic neck/back pain, BPH Last Myocardial Infarction Date:: 05/24/12 History of Any Multi-Drug Resistant Organisms: None Reported Past Surgical History: Back Surgery, Cholecystectomy, Heart Catheterization, Hernia Repair Additional Past Surgical History / Comment(s): 2011 cardiac cath - treated medically, lower back surgery, bilateral cataract removal, abdominal hernia repair, bronchoscopy. SKY lobe removed. lung biopsy. Wedge biopsy completed 07/23/19. Past Anesthesia/Blood Transfusion Reactions: No Reported Reaction Past Psychological History: Anxiety, Depression Smoking Status: Former smoker Past Alcohol Use History: None Reported Past Drug Use History: None Reported - Past Family History Mother Family Medical History: No Reported History Father Family Medical History: Diabetes Mellitus Additional Family Medical History / Comment(s): Father of diabetes at the age of 83 yrs. General Exam Limitations: no limitations General appearance: alert, in no apparent distress Head exam: Present: atraumatic, normocephalic, normal inspection Eye exam: Present: normal appearance Pupils: Present: normal accommodation ENT exam: Present: normal exam, normal oropharynx, mucous membranes moist, normal external ear exam Neck exam: Present: normal inspection, full ROM Respiratory exam: Present: wheezes (Bilateral) Cardiovascular Exam: Present: regular rate, normal rhythm, normal heart sounds exam: Absent: normal inspection (thick, white exudates on glans with mild erythema. no paraphimosis. ), testicular tenderness, urethral discharge, scrotal swelling, circumcision Extremities exam: Present: normal inspection, full ROM. Absent: tenderness, pedal edema (No unilateral leg swelling.), calf tenderness (Negative Homans bilaterally) Back exam: Present: normal inspection, full ROM Neurological exam: Present: alert, oriented X3 Psychiatric exam: Present: normal affect, normal mood Skin exam: Present: warm, intact, normal color Course Vital Signs 07/30/19 07/30/19 07/30/19 16:56 17:35 17:56 Temperature 97.8 F Pulse Rate 93 88 86 Respiratory 20 18 Rate Blood Pressure 107/68 136/80 O2 Sat by Pulse 96 98 Oximetry 07/30/19 07/30/19 07/30/19 18:11 18:39 22:01 Temperature Pulse Rate 82 91 84 Respiratory 18 Rate Blood Pressure 127/65 O2 Sat by Pulse 98 Oximetry 07/30/19 07/30/19 22:14 23:07 Temperature Pulse Rate 86 94 Respiratory 20 Rate Blood Pressure 127/74 O2 Sat by Pulse 98 Oximetry EKG Findings - EKG Comments: EKG Findings:: Normal sinus rhythm. Trickily rate 87, NE interval 172, QRS du ration 84, QT/EGC 358/430. Medical Decision Making - Medical Decision Making Patient is a 73-year-old male with complex medical history is presenting to emergency Department with a chief complaint of shortness of breath. Patient had underwent a wedge biopsy about one week ago. Patient does have a history of lung cancer, COPD and a surgical history of a partial lobectomy. No shortness of breath has increased over the last 2-3 days with no fevers nausea or vomiting. Patient does have a nonproductive cough but a states that's always been there. Patient reports that he is wheezing as well. No chest pain. No hemoptysis. Physical examination is negative for unilateral leg swelling. Negative Homans bilaterally. Patient is wheezing bilaterally auscultation. Patient is also on blood thinners. EKG is unremarkable. Troponins are negative. Patient does have elevated d-dimer. I spoke with radiology who high ly advise against CT with contrast due to poor kidney function. Radiology suggested a VQ scan instead. VQ scan shows a suboptimal study. I spoke with the radiologist again who is still not suggesting the CT with contrast. EKG showing sinus rhythm with no indications of PE. Shared decision making was discussed with patient and family members who declined the CT and state that his symptoms are more relevant with COPD exacerbation. After initial evaluation patient was given DuoNeb treatment and his breathing has improved according to him. Prior to discharge patient also requested another DuoNeb treatment. I did not give the patient steroids due to his diabetes. Patient declined steroids due to possible elevation of his glucose. On reevaluation patient is wheezing less compared to initially. Chest x-ray is indicative of bilateral nodular densities which are similar to prior imaging. One new nodular density noted. Nonemergent follow-up CT recommended by radiology. Patient is also complaining of a rash on his penis. On physical examination there is white exudates with mild erythema on the glans penis. I suspect this to be balanitis secondary to a candidal infection. Patient will be discharged with clotrimazole. Patient doesn't have increased urgency frequency or dysuria so i am not suspecting a UTI. Strict return parameters were thoroughly discussed the patient was understanding and agreeable. Patient has upcoming appointments with specialist. Case discussed with physician. - Lab Data Result diagrams: 07/30/19 17:30 07/30/19 17:30 Lab Results 07/30/19 07/30/19 07/30/19 Range/Units 17:30 17:30 17:30 WBC 8.7 (3.8-10.6) k/uL RBC 4.10 L (4.30-5.90) m/uL Hgb 12.1 L (13.0-17.5) gm/dL Hct 35.8 L (39.0-53.0) % MCV 87.3 (80.0-100.0) fL MCH 29.6 (25.0-35.0) pg MCHC 33.9 (31.0-37.0) g/dL RDW 14.0 (11.5-15.5) % Plt Count 215 (150-450) k/uL Neutrophils % 77 % Lymphocytes % 9 % Monocytes % 6 % Eosinophils % 6 % Basophils % 1 % Neutrophils # 6.7 (1.3-7.7) k/uL Lymphocytes # 0.8 L (1.0-4.8) k/uL Monocytes # 0.5 (0-1.0) k/uL Eosinophils # 0.5 (0-0.7) k/uL Basophils # 0.1 (0-0.2) k/uL PT 12.2 H (9.0-12.0) sec INR 1.2 H (<1.2) APTT 36.0 H (22.0-30.0) sec D-Dimer 1.27 H (<0.60) mg/L FEU Sodium 137 (137-145) mmol/L Potassium 4.9 (3.5-5.1) mmol/L Chloride 101 (98-107) mmol/L Carbon Dioxide 24 (22-30) mmol/L Anion Gap 12 mmol/L BUN 44 H (9-20) mg/dL Creatinine 1.88 H (0.66-1.25) mg/dL Est GFR (CKD-EPI)AfAm 41 (>60 ml/min/1.73 sqM) Est GFR (CKD-EPI)NonAf 35 (>60 ml/min/1.73 sqM) Glucose 221 H (74-99) mg/dL Calcium 10.0 (8.4-10.2) mg/dL Total Bilirubin 0.4 (0.2-1.3) mg/dL AST 20 (17-59) U/L ALT 27 (21-72) U/L Alkaline Phosphatase 83 (38-126) U/L Troponin I (0.000-0.034) ng/mL Total Protein 7.2 (6.3-8.2) g/dL Albumin 4.2 (3.5-5.0) g/dL 07/30/19 Range/Units 17:30 WBC (3.8-10.6) k/uL RBC (4.30-5.90) m/uL Hgb (13.0-17.5) gm/dL Hct (39.0-53.0) % MCV (80.0-100.0) fL MCH (25.0-35.0) pg MCHC (31.0-37.0) g/dL RDW (11.5-15.5) % Plt Count (150-450) k/uL Neutrophils % % Lymphocytes % % Monocytes % % Eosinophils % % Basophils % % Neutrophils # (1.3-7.7) k/uL Lymphocytes # (1.0-4.8) k/uL Monocytes # (0-1.0) k/uL Eosinophils # (0-0.7) k/uL Basophils # (0-0.2) k/uL PT (9.0-12.0) sec INR (<1.2) APTT (22.0-30.0) sec D-Dimer (<0.60) mg/L FEU Sodium (137-145) mmol/L Potassium (3.5-5.1) mmol/L Chloride (98-107) mmol/L Carbon Dioxide (22-30) mmol/L Anion Gap mmol/L BUN (9-20) mg/dL Creatinine (0.66-1.25) mg/dL Est GFR (CKD-EPI)AfAm (>60 ml/min/1.73 sqM) Est GFR (CKD-EPI)NonAf (>60 ml/min/1.73 sqM) Glucose (74-99) mg/dL Calcium (8.4-10.2) mg/dL Total Bilirubin (0.2-1.3) mg/dL AST (17-59) U/L ALT (21-72) U/L Alkaline Phosphatase (38-126) U/L Troponin I 0.024 (0.000-0.034) ng/mL Total Protein (6.3-8.2) g/dL Albumin (3.5-5.0) g/dL Disposition Clinical Impression: Shortness of breath, Candidal balanitis Disposition: HOME SELF-CARE Condition: Stable Instructions (If sedation given, give patient instructions): Chronic Cough (ED) Additional Instructions: Please take prescribed medication as directed. Please return to emergency department is symptoms worsen. Prescriptions: Clotrimazole Cream [Lotrimin Cream] 1 applic TOPICAL BID #1 bottle Is patient prescribed a controlled substance at d/c from ED?: No Referrals: Renzo Boyer MD [Primary Care Provider] - 1-2 days Time of Disposition: 22:56
--- NOTE | 2019-07-30 20:57 | NM ---
EXAMINATION TYPE: NM pul vent and perfuse DATE OF EXAM: 07/30/2019 COMPARISON: Chest x-ray of the same date HISTORY: Shortness of breath TECHNIQUE: Utilizing inhalation of 34.5 mCi Tc 99m DTPA aerosol and intravenous injection of 5.0 mCi of Tc 99m MAA, ventilation and perfusion images are acquired post injection in multiple projections. FINDINGS: There is abnormal radiotracer throughout both lungs on both ventilation and perfusion imaging. Ventil ation defect is larger than perfusion defect on the left with near marked decreased radiotracer throu ghout. There is extensive central clumping of radiotracer. Overall ventilation is are much greater th an perfusion defects. IMPRESSION: Extremely suboptimal examination given the marked radiotracer clumping and suboptimal accumulation of radiotracer throughout the lungs. Abnormal radiotracer throughout both lungs is seen on both ventila tion and perfusion imaging however defects or greater on ventilation images than perfusion imaging melissa ggesting airway disease rather than embolus.
[2019-07-30 23:10] VITALS: BP 127/74; PULSE 94; RESP 20
== END 2019-07-30 23:11 | disposition home or self-care (01) ==
LOC: EC 16:34
DX: B37.42 Candidal balanitis (principal); R06.02 Shortness of breath; R79.1 Abnormal coagulation profile; R91.8 Other nonspecific abnormal finding of lung field; R06.2 Wheezing; I25.10 Atherosclerotic heart disease of native coronary artery without angina pectoris; J44.9 Chronic obstructive pulmonary disease, unspecified; E11.9 Type 2 diabetes mellitus without complications; E78.5 Hyperlipidemia, unspecified; I10 Essential (primary) hypertension; I25.2 Old myocardial infarction; F32.9 Major depressive disorder, single episode, unspecified; F41.9 Anxiety disorder, unspecified; Z87.891 Personal history of nicotine dependence; Z79.01 Long term (current) use of anticoagulants; Z79.4 Long term (current) use of insulin; Z79.899 Other long term (current) drug therapy; Z85.118 Personal history of other malignant neoplasm of bronchus and lung; Z86.73 Personal history of transient ischemic attack (TIA), and cerebral infarction without residual deficits; Z90.2 Acquired absence of lung [part of]; Z53.8 Procedure and treatment not carried out for other reasons; Z53.29 Procedure and treatment not carried out because of patient's decision for other reasons
CPT/HCPCS: 36415; 94640 ×2; 93005; 85379; 80053; 84484; 85025; 85610; 85730; 71046; 78582; 99285; A9540; A9567

== ENCOUNTER 2019-08-20 16:00 | Observation (INO) | payer MEDICARE, OTHER ==
[2019-08-20] MEDS ORDERED: SODIUM CHLORIDE 0.9% 1,000 ML IV STA (16:44)
[2019-08-20] MEDS ORDERED: LORazepam 2 MG/ML INJ IV STA (16:46)
--- NOTE | 2019-08-20 16:49 | ED ---
General Adult HPI - General Chief complaint: GI Bleed Stated complaint: tremors Time Seen by Provider: 08/20/19 16:15 Source: patient, family, EMS, RN notes reviewed Mode of arrival: EMS Limitations: no limitations - History of Present Illness Initial comments: Patient is a pleasant 73-year-old male with known lung cancer, on chemotherapy presenting to the emergency Department with tremors. Onset of symptoms was just a couple of hours ago. Patient did have an appointment with his oncologist today prior to onset of symptoms. No new change in medications. Patient was in the hospital not long ago with similar symptoms. Patient questions if his m edication is causing this. Patient also adds that he did have a maroon colored bowel movement prior to arrival. Nonpainful. Patient is unclear whether or not there could be blood. Patient states tremors have been waxing and waning. When tremors are severe and is difficult to walk. Tremors are more upper than lower extremity. Patient denies fever or recent illness. - Related Data Home Medications Medication Instructions Recorded Confirmed PARoxetine [Paxil] 20 mg PO DAILY 11/15/14 08/20/19 Rivaroxaban [Xarelto] 20 mg PO DAILY 08/31/18 08/20/19 Insulin Detemir [Levemir Flextouch] 80 units SQ HS 11/13/18 08/20/19 Furosemide [Lasix] 40 mg PO BID 07/30/19 08/20/19 Ipratropium-Albuterol Nebulize 3 ml INHALATION RT-TID PRN 07/30/19 08/20/19 [Duoneb 0.5 mg-3 mg/3 ml Soln] Isosorbide Mononitrate 20 mg PO DAILY 07/30/19 08/20/19 Lisinopril 40 mg PO DAILY 07/30/19 08/20/19 Simvastatin [Zocor] 40 mg PO DAILY 07/30/19 08/20/19 amLODIPine [Norvasc] 10 mg PO DAILY 07/30/19 08/20/19 levETIRAcetam [Keppra] 500 mg PO BID 07/30/19 08/20/19 Previous Rx's Medication Instructions Recorded Clotrimazole Cream [Lotrimin Cream] 1 applic TOPICAL BID #1 bottle 07/30/19 Allergies Allergy/AdvReac Type Severity Reaction Status Date / Time No Known Allergies Allergy Verified 08/20/19 16:23 Review of Systems ROS Statement: Those systems with pertinent positive or pertinent negative responses have been documented in the HPI. ROS Other: All systems not noted in ROS Statement are negative. Constitutional: Denies: fever Eyes: Denies: eye pain ENT: Denies: ear pain Respiratory: Denies: cough Cardiovascular: Denies: chest pain Endocrine: Denies: fatigue Gastrointestinal: Reports: as per HPI. Denies: abdominal pain, vomiting Genitourinary: Denies: dysuria Musculoskeletal: Denies: back pain Skin: Denies: rash Neurological: Reports: as per HPI. Denies: headache, paresthesias, confusion Past Medical History Past Medical History: Coronary Artery Disease (CAD), COPD, CVA/TIA, Diabetes M ellitus, Deep Vein Thrombosis (DVT), Hyperlipidemia, Hypertension, Myocardial Infarction ([place]), Osteoarthritis (OA), Pneumonia, Prostate Disorder, Syncope Additional Past Medical History / Comment(s): COPD, DM-2 BPH, SKY lesion measuring 1.9 x 1.6 cm in size and not showing any metabolic activity, chronic neck/back pain, BPH Last Myocardial Infarction Date:: 05/24/12 History of Any Multi-Drug Resistant Organisms: None Reported Past Surgical History: Back Surgery, Cholecystectomy, Heart Catheterization, Hernia Repair Additional Past Surgical History / Comment(s): 2011 cardiac cath - treated medically, lower back surgery, bilateral cataract removal, abdominal hernia rep air, bronchoscopy. SKY lobe removed. lung biopsy. Wedge biopsy completed 07/23/19. Past Anesthesia/Blood Transfusion Reactions: No Reported Reaction Past Psychological History: Anxiety, Depression Smoking Status: Former smoker Past Alcohol Use History: None Reported Past Drug Use History: None Reported - Past Family History Mother Family Medical History: No Reported History Father Family Medical History: Diabetes Mellitus Additional Family Medical History / Comment(s): Father of diabetes at the age of 83 yrs. General Exam Limitations: no limitations General appearance: alert, in no apparent distress Head exam: Present: normocephalic Eye exam: Present: normal appearance, PERRL ENT exam: Present: other (Mild white coating on the tongue, patient states he is being treated for thrush.) Neck exam: Present: normal inspection Respiratory exam: Present: normal lung sounds bilaterally Cardiovascular Exam: Present: regular rate, normal rhythm GI/Abdominal exam: Present: soft. Absent: tenderness Rectal exam: Present: normal inspection. Absent: black stool, bloody stool Extremities exam: Present: normal inspection Neurological exam: Present: alert, oriented X3, CN II-XII intact. Absent: motor sensory deficit Expanded Neurological exam: Present: protecting the airway Patient oriented to: Present: person, place, time Speech: Present: fluid speech Sensory exam: Upper Extremity Light Touch: Normal, Lower Extremity Light Touch: Normal Motor strength exam: RUE: 5, LUE: 5, RLE: 5, LLE: 5 Eye Response: (4) open spontaneously Motor Response: (6) obeys commands Verbal Response: (5) oriented Psychiatric exam: Present: normal affect, normal mood Skin exam: Present: normal color Course Vital Signs 08/20/19 08/20/19 08/20/19 16:04 17:00 18:23 Temperature 98.6 F Pulse Rate 90 92 86 Respiratory 18 18 18 Rate Blood Pressure 129/100 100/56 98/68 O2 Sat by Pulse 98 96 97 Oximetry EKG Findings - EKG Comments: EKG Findings:: Normal sinus rhythm 91. MI 158. QRS 90. QT 346. QTc 425. Normal axis. Normal QRS. No acute ST change. Medical Decision Making - Medical Decision Making Patient reevaluated and resting comfortably in bed. Patient unclear whether or not Ativan has helped with his tremors. Case was discussed in detail with Dr. Vera, covering for Dr. Kent has previously admitted, covering for Dr. Boyer. Case was also discussed with Dr. Hinton, who will consult. - Lab Data Result diagrams: 08/20/19 16:25 08/20/19 16:25 Lab Results 08/20/19 08/20/19 08/20/19 Range/Units 16:25 16:25 16:25 WBC 7.9 (3.8-10.6) k/uL RBC 3.53 L (4.30-5.90) m/uL Hgb 10.5 L (13.0-17.5) gm/dL Hct 31.8 L (39.0-53.0) % MCV 90.1 (80.0-100.0) fL MCH 29.8 (25.0-35.0) pg MCHC 33.1 (31.0-37.0) g/dL RDW 13.8 (11.5-15.5) % Plt Count 157 (150-450) k/uL Neutrophils % 89 % Lymphocytes % 6 % Monocytes % 1 % Eosinophils % 3 % Basophils % 0 % Neutrophils # 7.1 (1.3-7.7) k/uL Lymphocytes # 0.5 L (1.0-4.8) k/uL Monocytes # 0.1 (0-1.0) k/uL Eosinophils # 0.2 (0-0.7) k/uL Basophils # 0.0 (0-0.2) k/uL PT (9.0-12.0) sec INR (<1.2) APTT (22.0-30.0) sec Sodium 134 L (137-145) mmol/L Potassium 5.0 (3.5-5.1) mmol/L Chloride 101 (98-107) mmol/L Carbon Dioxide 22 (22-30) mmol/L Anion Gap 11 mmol/L BUN 67 H (9-20) mg/dL Creatinine 1.96 H (0.66-1.25) mg/dL Est GFR (CKD-EPI)AfAm 39 (>60 ml/min/1.73 sqM) Est GFR (CKD-EPI)NonAf 33 (>60 ml/min/1.73 sqM) Glucose 219 H (74-99) mg/dL POC Glucose (mg/dL) (75-99) mg/dL POC Glu Computer Meteorologist ID Calcium 9.1 (8.4-10.2) mg/dL Magnesium 1.6 (1.6-2.3) mg/dL Total Bilirubin 0.6 (0.2-1.3) mg/dL AST 18 (17-59) U/L ALT 14 L (21-72) U/L Alkaline Phosphatase 74 (38-126) U/L Total Protein 6.3 (6.3-8.2) g/dL Albumin 3.7 (3.5-5.0) g/dL Stool Occult Blood Negative (Negative) 08/20/19 08/20/19 Range/Units 16:25 17:20 WBC (3.8-10.6) k/uL RBC (4.30-5.90) m/uL Hgb (13.0-17.5) gm/dL Hct (39.0-53.0) % MCV (80.0-100.0) fL MCH (25.0-35.0) pg MCHC (31.0-37.0) g/dL RDW (11.5-15.5) % Plt Count (150-450) k/uL Neutrophils % % Lymphocytes % % Monocytes % % Eosinophils % % Basophils % % Neutrophils # (1.3-7.7) k/uL Lymphocytes # (1.0-4.8) k/uL Monocytes # (0-1.0) k/uL Eosinophils # (0-0.7) k/uL Basophils # (0-0.2) k/uL PT 14.1 H (9.0-12.0) sec INR 1.4 H (<1.2) APTT 37.7 H (22.0-30.0) sec Sodium (137-145) mmol/L Potassium (3.5-5.1) mmol/L Chloride (98-107) mmol/L Carbon Dioxide (22-30) mmol/L Anion Gap mmol/L BUN (9-20) mg/dL Creatinine (0.66-1.25) mg/dL Est GFR (CKD-EPI)AfAm (>60 ml/min/1.73 sqM) Est GFR (CKD-EPI)NonAf (>60 ml/min/1.73 sqM) Glucose (74-99) mg/dL POC Glucose (mg/dL) 205 H (75-99) mg/dL POC Glu Computer Meteorologist ID Beronica Rossi Calcium (8.4-10.2) mg/dL Magnesium (1.6-2.3) mg/dL Total Bilirubin (0.2-1.3) mg/dL AST (17-59) U/L ALT (21-72) U/L Alkaline Phosphatase (38-126) U/L Total Protein (6.3-8.2) g/dL Albumin (3.5-5.0) g/dL Stool Occult Blood (Negative) - Radiology Data Radiology results: image reviewed (Chest x-ray shows previous left-sided surgery. Nodular patchy left perihilar region. Minimal nodularity left lateral lung.) Disposition Clinical Impression: Tremor, Antalgic gait Disposition: ADMITTED IP TO THIS HOSP Is patient prescribed a controlled substance at d/c from ED?: No Referrals: Renzo Boyer MD [Primary Care Provider] - 1-2 days Decision Time: 19:05
[2019-08-20 17:11] LABS: Basophils % (A) 0 %; Eosinophils # (A) 0.2 k/uL (0-0.7); Eosinophils % (A) 3 %; HCT 31.8 % (39.0-53.0); HGB 10.5 gm/dL (13.0-17.5); Lymphocytes # (A) 0.5 k/uL (1.0-4.8); Lymphocytes % (A) 6 %; MCH 29.8 pg (25.0-35.0); MCHC 33.1 g/dL (31.0-37.0); MCV 90.1 fL (80.0-100.0); Mean Platelet Volume 7.1; Monocytes # (A) 0.1 k/uL (0-1.0); Monocytes % (A) 1 %; Neutrophils # (A) 7.1 k/uL (1.3-7.7); Neutrophils % (A) 89 %; Platelet Count 157 k/uL (150-450); RBC 3.53 m/uL (4.30-5.90); RDW 13.8 % (11.5-15.5); WBC 7.9 k/uL (3.8-10.6)
--- NOTE | 2019-08-20 17:17 | XR ---
EXAMINATION TYPE: XR chest 2V DATE OF EXAM: 08/20/2019 COMPARISON: 07/30/2019 HISTORY: Lung cancer. Hemorrhage. Tremors. TECHNIQUE: Frontal and lateral views of the chest are obtained. FINDINGS: Heart and mediastinum are shifted slightly to the left side. There is a patchy nodular inf iltrate in the left perihilar region extending into the left lower lobe. Right lung is clear of conso lidation. There is no heart failure. Heart size is normal. There is no pleural effusion. IMPRESSION: Left-sided surgery with volume loss. Nodular patchy left perihilar pulmonary infiltrate unchanged compared to last exam. Minimal nodularity in the periphery of the left midlung is more noti ceable than last exam and could relate to progression of tumor.
[2019-08-20 17:20] LABS: Albumin 3.7 g/dL (3.5-5.0); Calcium 9.1 mg/dL (8.4-10.2); Magnesium 1.6 mg/dL (1.6-2.3); Total Bilirubin 0.6 mg/dL (0.2-1.3); Total Protein 6.3 g/dL (6.3-8.2)
[2019-08-20 17:22] LABS: Glucose,Whole Blood 205 mg/dL (75-99)
[2019-08-20 17:23] LABS: INR 1.4 (<1.2); Partial Thromboplastin Time 37.7 sec (22.0-30.0); Prothrombin Time 14.1 sec (9.0-12.0)
[2019-08-20] MEDS ORDERED: SODIUM CHLORIDE 0.9% 500 ML 500 ML IV STA (17:23)
[2019-08-20] MEDS ORDERED: NALOXONE 0.4 MG/ML 1 ML VIAL IV PRN (19:05)
[2019-08-20] MEDS: levETIRAcetam 500 MG TAB PO SCH (23:48)
[2019-08-20] MEDS: PANTOPRAZOLE 40 MG/10 ML VIAL IV SCH (23:48)
[2019-08-20] MEDS: SODIUM CHLORIDE 0.9% 1,000 ML IV SCH (23:48)
[2019-08-20] MEDS: FUROSEMIDE 40 MG TAB PO SCH (23:48)
[2019-08-20] MEDS: INSULIN DETEMIR (LEVEMIR) 100 UNIT/ML SYR SQ SCH (23:51)
[2019-08-20 23:52] LABS: Glucose,Whole Blood 325 mg/dL (75-99)
[2019-08-20] MEDS: NYSTATIN 100,000 UNIT/ML SUSP 500,000 UNIT/5 ML CUP PO SCH (23:59)
[2019-08-21] MEDS: IPRATROPIUM-ALBUTEROL 3 ML NEB INHALATION PRN ×3 (05:38→21:17)
[2019-08-21 07:04] LABS: Glucose,Whole Blood 217 mg/dL (75-99)
[2019-08-21] MEDS: levETIRAcetam 500 MG TAB PO SCH ×2 (07:46→21:46)
[2019-08-21] MEDS: INSULIN ASPART (NovoLOG) 100 UNIT/ML VIAL SQ SCH ×4 (07:46→21:46)
[2019-08-21] MEDS: FUROSEMIDE 40 MG TAB PO SCH (07:46)
[2019-08-21] MEDS: NYSTATIN 100,000 UNIT/ML SUSP 500,000 UNIT/5 ML CUP PO SCH ×4 (07:46→21:48)
[2019-08-21] MEDS: PANTOPRAZOLE 40 MG/10 ML VIAL IV SCH (07:46)
[2019-08-21 09:20] LABS: Basophils % (A) 0 %; Eosinophils # (A) 0.2 k/uL (0-0.7); Eosinophils % (A) 4 %; HGB 9.8 gm/dL (13.0-17.5); Lymphocytes # (A) 0.5 k/uL (1.0-4.8); Lymphocytes % (A) 12 %; MCH 30.3 pg (25.0-35.0); MCHC 33.9 g/dL (31.0-37.0); MCV 89.4 fL (80.0-100.0); Mean Platelet Volume 6.2; Monocytes # (A) 0.1 k/uL (0-1.0); Monocytes % (A) 2 %; Neutrophils # (A) 3.5 k/uL (1.3-7.7); Neutrophils % (A) 81 %; Platelet Count 138 k/uL (150-450); RBC 3.25 m/uL (4.30-5.90); RDW 13.5 % (11.5-15.5); WBC 4.3 k/uL (3.8-10.6)
[2019-08-21 09:38] LABS: Albumin 3.3 g/dL (3.5-5.0); Potassium 4.7 mmol/L (3.5-5.1); Total Bilirubin 0.5 mg/dL (0.2-1.3); Total Protein 5.8 g/dL (6.3-8.2)
[2019-08-21] MEDS: SODIUM CHLORIDE 0.9% 1,000 ML IV SCH ×2 (10:40→21:51)
[2019-08-21 11:21] LABS: Glucose,Whole Blood 185 mg/dL (75-99)
[2019-08-21] MEDS: ACETAMINOPHEN TAB 325 MG TAB PO PRN (13:04)
--- NOTE | 2019-08-21 14:40 | P.CNPUL ---
History of Present Illness Consult date: 08/21/19 Requesting physician: Hilary Vera Reason for consult: abnormal CXR/CT (Left-sided surgery with volume loss. Nodular patchy left perihilar pulmonary infiltrate unchanged compared to previous of 07/30/2019. Minimal nodularity in the periphery of the mid lung more noticeable the last exam. Suspect progression of tumor.) Chief complaint: Tremors, weakness, bloody bowel movement History of present illness: This is a very pleasant 73-year-old gentleman who follows with Dr. Boyer as his primary care physician. He has a history of hypertension, diabetes mellitus, hyperlipidemia, left lower extremity DVT anticoagulated with Xarelto. He also has a history of a small right middle lobe nodule that Dr. Boyer had been following in the outpatient setting. During that time he was found to have a left lung nodule as well this was more concerning on the PET scan. The location of bronchoscopy was negative however follow-up PET scan did show increasing in size and SUV's. He was subsequently sent at [facility] and underwent a left upper lobectomy and the pathology did come back positive for adenocarcinoma. That was in 2018. He had been followed with Dr. Davila for chemotherapy and completed that session. More recently he undergone a right lung wedge biopsy that was positive again for cancer. He has since undergone one treatment with Dr. Davila. He presented here to the emergency room yesterday with complaints of tremors, shortness of breath, weakness and nellie stool. He is seen today in consultation on the regular medical floor. He is awake and alert in no acute distress. He is maintaining O2 saturations in the upper 90s on room air. He's been afebrile. Hemodynamically stable. White count 4.3. Hemoglobin 9.8. Creatinine 1.76. Chest x-ray shows left-sided surgery with volume loss. Nodular patchy left perihilar pulmonary infiltrate unchanged compared to previous on 07/30/2019. There is minimal nodularity in the periphery of the left midlung more noticeable than previous exam and could relate to progression of tumor. Review of Systems REVIEW OF SYSTEMS: CONSTITUTIONAL: Denies any recent significant weight loss or weight gain. EYES: Denies change in vision. EARS, NOSE, MOUTH, THROAT: Denies headaches, denies sore throat. CARDIOVASCULAR: Denies chest pain, palpitations or syncopal episodes. RESPIRATORY: Positive for shortness of breath, cough, congestion no hemoptysis. GASTROINTESTINAL: Denies change in appetite, denies abdominal pain, reported bloody stool. GENITOURINARY: Denies hematuria, denies infections. MUSKULOSKELETAL: Denies pain, denies swelling. INTEGUMENTARY: Denies rash, denies eczema. NEUROLOGICAL: Denies recent memory loss, no recent seizure activity. PSYCHIATRIC: Positive for anxiety, positive for depression. HEMATOLOGIC/LYMPHATIC: Denies anemia, denies enlarged lymph nodes. Past Medical History Past Medical History: Coronary Artery Disease (CAD), Cancer, COPD, CVA/TIA, Diabetes Mellitus, Deep Vein Thrombosis (DVT), Hyperlipidemia, Hypertension, Myocardial Infarction ([place]), Osteoarthritis (OA), Pneumonia, Prostate Disorder, Seizure Disorder Additional Past Medical History / Comment(s): History of lung cancer with previous left lobectomy and chemotherapy. Recent recurrence in the right with wedge biopsy positive for cancer. COPD, DM-2 BPH, chronic neck/back pain, BPH, TIA & seizure following lung biopsy, HERMELINDO Last Myocardial Infarction Date:: 05/24/12 History of Any Multi-Drug Resistant Organisms: None Reported Past Surgical History: Back Surgery, Cholecystectomy, Heart Catheterization, Hernia Repair, Tonsillectomy Additional Past Surgical History / Comment(s): 2011 cardiac cath - treated medically, lower back surgery, bilateral cataract removal, abdominal hernia repair, bronchoscopy. SKY lobe removed. lung biopsy. R lung Wedge biopsy completed 07/23/19. Past Anesthesia/Blood Transfusion Reactions: Previous Problems w/ Anesthesia Additional Past Anesthesia/Blood Transfusion Reaction / Comment(s): Seizure and mini stroke following lung biopsy Past Psychological History: Anxiety, Depression Additional Psychological History / Comment(s): Patient lives with son. 05/05/18 + 01/16/19: Pt. denies anxiety at this time. Pt. does drive. Does not have home care services or walker/cane. No home O2. Smoking Status: Former smoker Past Alcohol Use History: None Reported Additional Past Alcohol Use History / Comment(s): Pt started smoking in 1960 and quit in 1995. He was a 2ppd smoker. Past Drug Use History: None Reported - Past Family History Mother Family Medical History: No Reported History Father Family Medical History: Diabetes Mellitus Additional Family Medical History / Comment(s): Father of diabetes at the age of 83 yrs. Medications and Allergies Home Medications Medication Instructions Recorded Confirmed Type PARoxetine [Paxil] 20 mg PO DAILY 11/15/14 08/20/19 History Rivaroxaban [Xarelto] 20 mg PO DAILY 08/31/18 08/20/19 History Insulin Detemir [Levemir Flextouch] 80 units SQ HS 11/13/18 08/20/19 History Clotrimazole Cream [Lotrimin Cream] 1 applic TOPICAL BID #1 bottle 07/30/19 08/20/19 Rx Furosemide [Lasix] 40 mg PO BID 07/30/19 08/20/19 History Ipratropium-Albuterol Nebulize 3 ml INHALATION RT-TID PRN 07/30/19 08/20/19 History [Duoneb 0.5 mg-3 mg/3 ml Soln] Isosorbide Mononitrate 20 mg PO DAILY 07/30/19 08/20/19 History Lisinopril 40 mg PO DAILY 07/30/19 08/20/19 History Simvastatin [Zocor] 40 mg PO DAILY 07/30/19 08/20/19 History amLODIPine [Norvasc] 10 mg PO DAILY 07/30/19 08/20/19 History levETIRAcetam [Keppra] 500 mg PO BID 07/30/19 08/20/19 History Allergies Allergy/AdvReac Type Severity Reaction Status Date / Time No Known Allergies Allergy Verified 08/20/19 16:23 Physical Exam Vitals: Vital Signs Temp Pulse Pulse Resp BP BP Pulse Ox 08/21/19 12:01 98.1 F 77 17 112/57 97 08/21/19 11:07 73 08/21/19 10:54 72 08/21/19 05:47 76 08/21/19 05:39 76 08/21/19 04:57 98.1 F 18 149/56 99 08/20/19 23:48 99 08/20/19 23:45 18 08/20/19 22:44 98.2 F 92 18 142/71 95 08/20/19 20:32 98.6 F 88 18 137/68 97 08/20/19 20:30 88 18 137/68 97 08/20/19 18:23 86 18 98/68 97 08/20/19 17:00 92 18 100/56 96 08/20/19 16:04 98.6 F 90 18 129/100 98 Intake and Output 08/20/19 08/21/19 08/21/19 22:59 06:59 14:59 Intake Total 600 Balance 600 Intake: Intake, IV Titration 600 Amount Sodium Chloride 0.9% 1, 600 000 ml @ 75 mls/hr IV . [id number] [facility] Rx#:[id number] Other: Voiding Method Toilet Toilet Urinal # Voids 1 3 Weight 86.636 kg GENERAL EXAM: Alert, pleasant 73-year-old gentleman, on room air, comfortable in no apparent distress. HEAD: Normocephalic. EYES: Normal reaction of pupils, equal size. NOSE: Clear with pink turbinates. THROAT: No erythema or exudates. NECK: No masses, no JVD. CHEST: No chest wall deformity. Incisions from recent wedge resection on the right clean dry well approximated LUNGS: Equal air entry with no crackles, wheeze, rhonchi or dullness. Diminished. CVS: S1 and S2 normal with no audible murmur, regular rhythm. ABDOMEN: No hepatosplenomegaly, normal bowel sounds, no guarding or rigidity. SPINE: No scoliosis or deformity SKIN: No rashes CENTRAL NERVOUS SYSTEM: No focal deficits, tone is normal in all 4 extremities. EXTREMITIES: There is no peripheral edema. No clubbing, no cyanosis. Peripheral pulses are intact. Results - Laboratory Findings CBC and BMP: 08/21/19 08:22 08/21/19 08:22 PT/INR, D-dimer PT 14.1 sec (9.0-12.0) H 08/20/19 16:25 INR 1.4 (<1.2) H 08/20/19 16:25 Abnormal lab findings: Abnormal Labs 08/20/19 08/20/19 08/20/19 16:25 16:25 16:25 RBC 3.53 L Hgb 10.5 L Hct 31.8 L Plt Count Lymphocytes # 0.5 L PT 14.1 H INR 1.4 H APTT 37.7 H Sodium 134 L BUN 67 H Creatinine 1.96 H Glucose 219 H POC Glucose (mg/dL) AST ALT 14 L Total Protein Albumin 08/20/19 08/20/19 08/21/19 17:20 23:50 07:01 RBC Hgb Hct Plt Count Lymphocytes # PT INR APTT Sodium BUN Creatinine Glucose POC Glucose (mg/dL) 205 H 325 H 217 H AST ALT Total Protein Albumin 08/21/19 08/21/19 08/21/19 08:22 08:22 11:17 RBC 3.25 L Hgb 9.8 L Hct 29.0 L Plt Count 138 L Lymphocytes # 0.5 L PT INR APTT Sodium BUN 60 H Creatinine 1.76 H Glucose 184 H POC Glucose (mg/dL) 185 H AST 13 L ALT 20 L Total Protein 5.8 L Albumin 3.3 L - Diagnostic Findings Chest x-ray: image reviewed (left-sided surgery with volume loss. Nodular patchy left perihilar pulmonary infiltrate unchanged compared to previous on 07/30/2019. There is minimal nodularity in the periphery of the left midlung more noticeable than previous exam and could relate to progression of tumor. ) Assessment and Plan Assessment: Impression: #1 Tremors and weakness of unclear etiology, the patient had recently undergone 1 round of chemotherapy. #2 Recent right lung wedge biopsy positive for malignancy, performed any [facility]. #3 Previous history of adenocarcinoma of the left lung and previous lobectomy and chemotherapy. #4 History of left lower extremity DVT anticoagulated with Xarelto. #5 Hypertension. #6 Hyperlipidemia. #7 Diabetes mellitus. #8 Benign prosthetic hypertrophy. #9 Coronary artery disease. Plan: The patient was seen and evaluated by Dr. Snider. Chest x-ray and labs reviewed. The patient is currently stable from the pulmonary standpoint. We will await neurology consult. Upon discharge follow-up with Dr. Davila. We will continue to follow and make further recommendations based on his clinical status. I, the cosigning physician, performed a history & physical examination of the patient. Lungs sounds are clear but diminished. Maintaining good O2 saturations in the 90s on room air. I discussed the assessment and plan of care with my nurse practitioner, Nohemi Garcia. I attest to the above consultation as dictated by her. Time with Patient: Greater than 30
--- NOTE | 2019-08-21 14:56 | P.HPIM ---
History of Present Illness H&P Date: 08/21/19 Chief Complaint: Tremors Patient is a 71-year-old male with a known history of lung cancer with history of resection about a year back, currently undergoing chemotherapy-last chemo on Sunday, history of DVT on anticoagulation with Lovenox and diabetes type 2 insulin-dependent, hypertension, seizure disorder on Keppra, came to ER with the complaints of generalized shakiness and tremors. Patient says that she went to Dr. Martin's office yesterday and went home, laid down sometime and got up and went upstairs. Suddenly patient developed shaking of the legs and hands u ncontrolled. Patient usually does have tremors but this time tremors lasted longer than usual which made him to come to ER. Currently patient is taking antiepileptic medications in the form of Keppra. No recent change in medications. Denied any loss of consciousness. No bladder or bowel incontinence. Patient was brought to the hospital by EMS.Patient also adds that he did have a maroon colored bowel movement prior to arrival. Nonpainful. Patient is unclear whether or not there could be blood. Patient states tremors have been waxing and waning. When tremors are severe and is difficult to walk. Tremors are more upper than lower extremity. Patient denies fever or recent illness. denied any cough is from production. No chest pain or shortness of breath. WBC 7.9, hemoglobin 10.5, INR 1.4 sodium 134, BUN 67 and creatinine 1.96 Keppra level at therapeutic range. Review of Systems Constitutional: Patient denies any fever or chills . No generalized weakness or weight loss. Abdomen: Patient denied nausea vomiting and diarrhea and abdominal pain. Cardiovascular: Patient denies any chest pain or short of breath no palpitations. Respiratory: patient denied any cough is from production. No shortness of breath Neurologic: Patient denied any numbness or tingling headache. Musculoskeletal: Patient denies any complaints of joint swelling or deformity. Skin: Negative Psychiatric: Negative Endocrine: No heat or cold intolerance. No recent weight gain. Genitourinary: No dysuria or hematuria. All other 14 point ROS negative except the above Past Medical History Past Medical History: Coronary Artery Disease (CAD), Cancer, COPD, CVA/TIA, Diabetes Mellitus, Deep Vein Thrombosis (DVT), Hyperlipidemia, Hypertension, Myocardial Infarction ([place]), Osteoarthritis (OA), Pneumonia, Prostate Disorder, Seizure Disorder Additional Past Medical History / Comment(s): COPD, DM-2 BPH, SKY lesion measuring 1.9 x 1.6 cm in size and not showing any metabolic activity, chronic neck/back pain, BPH, TIA & seizure following lung biopsy, HERMELINDO Last Myocardial Infarction Date:: 05/24/12 History of Any Multi-Drug Resistant Organisms: None Reported Past Surgical History: Back Surgery, Cholecystectomy, Heart Catheterization, Hernia Repair, Tonsillectomy Additional Past Surgical History / Comment(s): 2011 cardiac cath - treated medically, lower back surgery, bilateral cataract removal, abdominal hernia repair, bronchoscopy. SKY lobe removed. lung biopsy. R lung Wedge biopsy completed 07/23/19. Past Anesthesia/Blood Transfusion Reactions: Previous Problems w/ Anesthesia Additional Past Anesthesia/Blood Transfusion Reaction / Comment(s): Seizure and mini stroke following lung biopsy Past Psychological History: Anxiety, Depression Additional Psychological History / Comment(s): Patient lives with son. 05/05/18 + 01/16/19: Pt. denies anxiety at this time. Pt. does drive. Does not have home care services or walker/cane. No home O2. Smoking Status: Former smoker Past Alcohol Use History: None Reported Additional Past Alcohol Use History / Comment(s): Pt started smoking in 1960 and quit in 1995. He was a 2ppd smoker. Past Drug Use History: None Reported - Past Family History Mother Family Medical History: No Reported History Father Family Medical History: Diabetes Mellitus Additional Family Medical History / Comment(s): Father of diabetes at the age of 83 yrs. Medications and Allergies Home Medications Medication Instructions Recorded Confirmed Type PARoxetine [Paxil] 20 mg PO DAILY 11/15/14 08/20/19 History Rivaroxaban [Xarelto] 20 mg PO DAILY 08/31/18 08/20/19 History Insulin Detemir [Levemir Flextouch] 80 units SQ HS 11/13/18 08/20/19 History Clotrimazole Cream [Lotrimin Cream] 1 applic TOPICAL BID #1 bottle 07/30/19 08/20/19 Rx Furosemide [Lasix] 40 mg PO BID 07/30/19 08/20/19 History Ipratropium-Albuterol Nebulize 3 ml INHALATION RT-TID PRN 07/30/19 08/20/19 History [Duoneb 0.5 mg-3 mg/3 ml Soln] Isosorbide Mononitrate 20 mg PO DAILY 07/30/19 08/20/19 History Lisinopril 40 mg PO DAILY 07/30/19 08/20/19 History Simvastatin [Zocor] 40 mg PO DAILY 07/30/19 08/20/19 History amLODIPine [Norvasc] 10 mg PO DAILY 07/30/19 08/20/19 History levETIRAcetam [Keppra] 500 mg PO BID 07/30/19 08/20/19 History Allergies Allergy/AdvReac Type Severity Reaction Status Date / Time No Known Allergies Allergy Verified 08/20/19 16:23 Physical Exam Vitals: Vital Signs Temp Pulse Pulse Resp BP BP Pulse Ox 08/21/19 05:47 76 08/21/19 05:39 76 08/21/19 04:57 98.1 F 18 149/56 99 08/20/19 23:48 99 08/20/19 23:45 18 08/20/19 22:44 98.2 F 92 18 142/71 95 08/20/19 20:32 98.6 F 88 18 137/68 97 08/20/19 20:30 88 18 137/68 97 08/20/19 18:23 86 18 98/68 97 08/20/19 17:00 92 18 100/56 96 08/20/19 16:04 98.6 F 90 18 129/100 98 Intake and Output 08/20/19 08/21/19 08/21/19 22:59 06:59 14:59 Intake Total 600 Balance 600 Intake: Intake, IV Titration 600 Amount Sodium Chloride 0.9% 1, 600 000 ml @ 75 mls/hr IV . [id number] [facility] Rx#:[id number] Other: Voiding Method Toilet # Voids 1 3 Weight 86.636 kg PHYSICAL EXAMINATION: Patient is lying in the bed comfortably, no acute distress, awake alert and oriented.. HEENT: Normocephalic. Neck is supple. Pupils reactive. Nostrils clear. Oral cavity is moist. Ears reveal no drainage. Neck reveals no JVD, carotid bruits, or thyromegaly. CHEST EXAMINATION: Trachea is central. Symmetrical expansion. Lung wright clear to auscultation and percussion. CARDIAC: Normal S1, S2 with no gallops. No murmurs ABDOMEN: Soft. Bowel sounds normal. No organomegaly. No abdominal bruits. Extremities: reveal no edema. No clubbing or cyanosis Neurologically awake, alert, oriented x3 with well-coordinated movements. No focal deficits noted Skin: No rash or skin lesions. Psychiatric: Coperative. Nonsuicidal Musculoskeletal: No joint swelling or deformity. Normal range of motion. Results CBC & Chem 7: 08/21/19 08:22 08/21/19 08:22 Labs: Abnormal Lab Results - Last 24 Hours (Table) 08/20/19 08/20/19 08/20/19 Range/Units 16:25 16:25 16:25 RBC 3.53 L (4.30-5.90) m/uL Hgb 10.5 L (13.0-17.5) gm/dL Hct 31.8 L (39.0-53.0) % Plt Count (150-450) k/uL Lymphocytes # 0.5 L (1.0-4.8) k/uL PT 14.1 H (9.0-12.0) sec INR 1.4 H (<1.2) APTT 37.7 H (22.0-30.0) sec Sodium 134 L (137-145) mmol/L BUN 67 H (9-20) mg/dL Creatinine 1.96 H (0.66-1.25) mg/dL Glucose 219 H (74-99) mg/dL POC Glucose (mg/dL) (75-99) mg/dL AST (17-59) U/L ALT 14 L (21-72) U/L Total Protein (6.3-8.2) g/dL Albumin (3.5-5.0) g/dL 08/20/19 08/20/19 08/21/19 Range/Units 17:20 23:50 07:01 RBC (4.30-5.90) m/uL Hgb (13.0-17.5) gm/dL Hct (39.0-53.0) % Plt Count (150-450) k/uL Lymphocytes # (1.0-4.8) k/uL PT (9.0-12.0) sec INR (<1.2) APTT (22.0-30.0) sec Sodium (137-145) mmol/L BUN (9-20) mg/dL Creatinine (0.66-1.25) mg/dL Glucose (74-99) mg/dL POC Glucose (mg/dL) 205 H 325 H 217 H (75-99) mg/dL AST (17-59) U/L ALT (21-72) U/L Total Protein (6.3-8.2) g/dL Albumin (3.5-5.0) g/dL 08/21/19 08/21/19 Range/Units 08:22 08:22 RBC 3.25 L (4.30-5.90) m/uL Hgb 9.8 L (13.0-17.5) gm/dL Hct 29.0 L (39.0-53.0) % Plt Count 138 L (150-450) k/uL Lymphocytes # 0.5 L (1.0-4.8) k/uL PT (9.0-12.0) sec INR (<1.2) APTT (22.0-30.0) sec Sodium (137-145) mmol/L BUN 60 H (9-20) mg/dL Creatinine 1.76 H (0.66-1.25) mg/dL Glucose 184 H (74-99) mg/dL POC Glucose (mg/dL) (75-99) mg/dL AST 13 L (17-59) U/L ALT 20 L (21-72) U/L Total Protein 5.8 L (6.3-8.2) g/dL Albumin 3.3 L (3.5-5.0) g/dL Thrombosis Risk Factor Assmnt - DVT/VTE Prophylaxis DVT/VTE Prophylaxis: Pharmacologic Prophylaxis ordered - Choose All That Apply Any of the Below Risk Factors Present?: Yes Each Factor Represents 1 point: Abnormal pulmonary function (COPD), Obesity (BMI >25), Serious lung disease incl. pneumonia (< 1month) Other Risk Factors: Yes Each Risk Factor Represents 2 Points: Age 61-74 years, Malignancy Each Risk Factor Represents 3 Points: History of DVT/PE Other congenital or acquired thrombophilia - If yes, enter type in comment: No Thrombosis Risk Factor Assessment Total Risk Factor Score: 10 Thrombosis Risk Factor Assessment Level: High Risk Assessment and Plan Assessment: Generalized tremors. Unlikely seizure. Exact etiology unknown. Patient had chemotherapy on last Sunday. Acute on chronic kidney disease stage III Lung cancer with history of left upper lobe resection and recent right lung wedge biopsy on 07/23/2019 showed malignancy. Currently undergoing chemotherapy History of seizure disorder History of left lower extremity DVT currently on xarelto Hypertension Hyperlipidemia Diabetes type 2 insulin-dependent COPD stable History of CVA/TIA Osteoarthritis BPH Chronic back pain and neck pain Anxiety/depression Coronary artery disease with prior cardiac cath. No PCI. DVT prophylaxis patient is already on full anticoagulation Plan: Patient will be continued on gentle hydration. Will hold diuretics and lis inopril and continue with other blood pressure medications. Continue the insulin dosing. Neurology was consulted. No further episodes of tremors while in hospital. Follow-up labs tomorrow. Anticipate discharge in next 24 hours with more clinical improvement and renal function improvement. Time with Patient: Greater than 30
--- NOTE | 2019-08-21 16:49 | MR ---
EXAMINATION TYPE: MR brain wo/w con DATE OF EXAM: 08/21/2019 COMPARISON: 10/07/2018 HISTORY: Tremors TECHNIQUE: Multiplanar, multisequence images of the brain and brainstem is performed without and with IV contras t, utilizing 8.5 mL intravenous Gadavist . FINDINGS: There is cerebral cortical atrophy. There is no mass effect nor midline shift. There is no evidence o f intracranial hemorrhage. On the T2 and FLAIR images there are multiple foci of increased signal in the white matter around the lateral ventricles at the stover-white matter junction in both cerebral hem ispheres. There is some coalescent areas. Total number of foci is approximately 25 and most of these measure in the range of 4 to 6 mm. The brainstem is intact. Cerebellum is intact. Sella turcica is no rmal. There is slight thinning of the corpus callosum. IMPRESSION: Cerebral atrophy. White matter changes consistent with chronic small vessel ischemia. Dem yelinating disease not excluded. No evidence of cortical infarct. White matter disease not significan tly different than old exam.
[2019-08-21 17:36] LABS: Glucose,Whole Blood 276 mg/dL (75-99)
[2019-08-21] MEDS: RIVAROXABAN 20 MG TAB PO SCH (18:13)
--- NOTE | 2019-08-21 19:41 | P.CNNES ---
History of Present Illness Consult date: 08/21/19 Requesting physician: Tariq Coppola Reason for Consult: Tremors History of Present Illness: Patient is a 73-year-old male who was diagnosed with lung cancer last year, underwent left upper lobe lobectomy on 07/23/2018, followed by 4 sessions of chemotherapy. Patient was doing well, but recently was diagnosed with recurre nce of tumor on the other side of the lung. Patient was started on chemotherapy. He received chemo on last 08/13/2019. Patient states that 2 days ago he started noticing significant tremors, shaking of his arms. He could not lay still. He came to the hospital, started rehydration, and now symptoms are getting better. Patient had an MRI of the brain with and without contrast on 08/21/2019, which revealed cerebral atrophy. White matter changes consistent with chronic small vessel ischemia. Demyelinating disease not excluded. No evidence of cortical infarct. No significant changes compared to MRI from 10/07/2018. EKG showed normal sinus rhythm. Chest x-ray showed left-sided surgery with volume loss. No dealer patchy left perihilar pulmonary infiltrate unchanged compared to last exam. Minimal noted D in the periphery of the left mid lung is more noticeable than last exam and could relate to progression of tumor. Patient's blood test shows normal white cells, hemoglobin 9.8, platelets 138. His BUN is 60, creatinine 1.78. Liver functions are normal. Keppra level is normal 36.4 (3- 60) as of yesterday. Patient states he has history of seizure disorder for which she takes Keppra. He also had history of small stroke. Patient states he quit tobacco 22 years ago. Prior to that he has smoked 4 pack per day for 10 years, and 2-3 packs per day for another 22 years prior. He used to drink alcohol previously. Review of Systems COPD. Denies headache problem with the vision, dysphagia dysarthria. Complains of tremors. Complains of some rash over his penis. Complains of generalized weakness. Some shortness of breath. No chest pain. Denies abdominal pain. Past Medical History Past Medical History: Coronary Artery Disease (CAD), Cancer, COPD, CVA/TIA, Diabetes Mellitus, Deep Vein Thrombosis (DVT), Hyperlipidemia, Hypertension, Myocardial Infarction ([place]), Osteoarthritis (OA), Pneumonia, Prostate Disorder, Seizure Disorder Additional Past Medical History / Comment(s): COPD, DM-2 BPH, SKY lesion measuring 1.9 x 1.6 cm in size and not showing any metabolic activity, chronic neck/back pain, BPH, TIA & seizure following lung biopsy, HERMELINDO Last Myocardial Infarction Date:: 05/24/12 History of Any Multi-Drug Resistant Organisms: None Reported Past Surgical History: Back Surgery, Cholecystectomy, Heart Catheterization, Hernia Repair, Tonsillectomy Additional Past Surgical History / Comment(s): 2011 cardiac cath - treated medically, lower back surgery, bilateral cataract removal, abdominal hernia repair, bronchoscopy. SKY lobe removed. lung biopsy. R lung Wedge biopsy completed 07/23/19. Past Anesthesia/Blood Transfusion Reactions: Previous Problems w/ Anesthesia Additional Past Anesthesia/Blood Transfusion Reaction / Comment(s): Seizure and mini stroke following lung biopsy Past Psychological History: Anxiety, Depression Additional Psychological History / Comment(s): Patient lives with son. 05/05/18 + 01/16/19: Pt. denies anxiety at this time. Pt. does drive. Does not have home care services or walker/cane. No home O2. Smoking Status: Former smoker Past Alcohol Use History: None Reported Additional Past Alcohol Use History / Comment(s): Pt started smoking in 1960 and quit in 1995. He was a 2ppd smoker. Past Drug Use History: None Reported - Past Family History Mother Family Medical History: No Reported History Father Family Medical History: Diabetes Mellitus Additional Family Medical History / Comment(s): Father of diabetes at the age of 83 yrs. Medications and Allergies Home Medications Medication Instructions Recorded Confirmed Type PARoxetine [Paxil] 20 mg PO DAILY 11/15/14 08/20/19 History Rivaroxaban [Xarelto] 20 mg PO DAILY 08/31/18 08/20/19 History Insulin Detemir [Levemir Flextouch] 80 units SQ HS 11/13/18 08/20/19 History Clotrimazole Cream [Lotrimin Cream] 1 applic TOPICAL BID #1 bottle 07/30/19 08/20/19 Rx Furosemide [Lasix] 40 mg PO BID 07/30/19 08/20/19 History Ipratropium-Albuterol Nebulize 3 ml INHALATION RT-TID PRN 07/30/19 08/20/19 History [Duoneb 0.5 mg-3 mg/3 ml Soln] Isosorbide Mononitrate 20 mg PO DAILY 07/30/19 08/20/19 History Lisinopril 40 mg PO DAILY 07/30/19 08/20/19 History Simvastatin [Zocor] 40 mg PO DAILY 07/30/19 08/20/19 History amLODIPine [Norvasc] 10 mg PO DAILY 07/30/19 08/20/19 History levETIRAcetam [Keppra] 500 mg PO BID 07/30/19 08/20/19 History Allergies Allergy/AdvReac Type Severity Reaction Status Date / Time No Known Allergies Allergy Verified 08/20/19 16:23 Physical Examination - Vital Signs Vital Signs: Vital Signs Temp Pulse Pulse Resp BP BP Pulse Ox 08/21/19 12:01 98.1 F 77 17 112/57 97 08/21/19 11:07 73 08/21/19 10:54 72 08/21/19 05:47 76 08/21/19 05:39 76 08/21/19 04:57 98.1 F 18 149/56 99 08/20/19 23:48 99 08/20/19 23:45 18 08/20/19 22:44 98.2 F 92 18 142/71 95 08/20/19 20:32 98.6 F 88 18 137/68 97 08/20/19 20:30 88 18 137/68 97 Intake and Output 08/21/19 08/21/19 08/21/19 06:59 14:59 22:59 Intake Total 600 600 Balance 600 600 Intake: Intake, IV Titration 600 600 Amount Sodium Chloride 0.9% 1, 600 600 000 ml @ 75 mls/hr IV . [id number] [facility] Rx#:[id number] Other: Voiding Method Toilet Toilet Toilet Urinal Urinal # Voids 3 On examination patient is a young-looking elderly male, in no distress. He is alert and awake fully oriented. Speech and language functions are normal. Attention and concentration fund of knowledge adequate. On cranial nerve examination his pupils are round and reacting, visual wright are full. Face is symmetric and tongue protrudes to the midline. Palatal elevation and sensation normal. On muscle strength testing there is no pronator drift and the strength is normal in arms and legs. Patient has very mild postural tremor, no tremors at rest. Sometimes he has some metabolic tremors observed. Tone and bulk of muscles normal. Gait deferred. Reflexes are symmetric and plantars downgoing. Results - Laboratory Findings CBC and BMP: 08/21/19 08:22 08/21/19 08:22 Abnormal Lab Findings: Abnormal Labs 08/20/19 08/20/19 08/20/19 16:25 16:25 16:25 RBC 3.53 L Hgb 10.5 L Hct 31.8 L Plt Count Lymphocytes # 0.5 L PT 14.1 H INR 1.4 H APTT 37.7 H Sodium 134 L BUN 67 H Creatinine 1.96 H Glucose 219 H POC Glucose (mg/dL) AST ALT 14 L Total Protein Albumin 08/20/19 08/20/19 08/21/19 17:20 23:50 07:01 RBC Hgb Hct Plt Count Lymphocytes # PT INR APTT Sodium BUN Creatinine Glucose POC Glucose (mg/dL) 205 H 325 H 217 H AST ALT Total Protein Albumin 08/21/19 08/21/19 08/21/19 08:22 08:22 11:17 RBC 3.25 L Hgb 9.8 L Hct 29.0 L Plt Count 138 L Lymphocytes # 0.5 L PT INR APTT Sodium BUN 60 H Creatinine 1.76 H Glucose 184 H POC Glucose (mg/dL) 185 H AST 13 L ALT 20 L Total Protein 5.8 L Albumin 3.3 L 08/21/19 17:33 RBC Hgb Hct Plt Count Lymphocytes # PT INR APTT Sodium BUN Creatinine Glucose POC Glucose (mg/dL) 276 H AST ALT Total Protein Albumin Assessment and Plan Assessment: * Tremors, likely metabolic in nature. Patient's acute renal insufficiency, anemia and possible chemotherapeutic side effects are likely causes. His tr emors have much improved. * Metastatic lung cancer. Undergoing chemotherapy. * Seizure disorder, currently on Keppra. * X tobacco user. * Renal insufficiency * Diabetes, not well controlled. Last A1c 10.2. Plan: * Patient's tremors were likely related to acute metabolic disturbance with renal insufficiency. Patient's tremors have much improved since getting rehydrated. At present I did not notice any postural or intention tremors. * I will check TSH, free T4 and B12. * No other workup or treatment needed. * Neurology will follow * Thank you very much for allowing me to participate in care for patient.
[2019-08-21 20:49] LABS: Glucose,Whole Blood 198 mg/dL (75-99)
[2019-08-21] MEDS: SALT AND SODA MOUTHWASH 1,000 ML PO SCH (21:46)
[2019-08-21] MEDS: INSULIN DETEMIR (LEVEMIR) 100 UNIT/ML SYR SQ SCH (21:46)
[2019-08-22] MEDS: SALT AND SODA MOUTHWASH 1,000 ML PO SCH ×3 (03:14→13:02)
[2019-08-22 07:12] LABS: Glucose,Whole Blood 148 mg/dL (75-99)
[2019-08-22] MEDS: IPRATROPIUM-ALBUTEROL 3 ML NEB INHALATION PRN ×2 (07:19→13:13)
[2019-08-22] MEDS: levETIRAcetam 500 MG TAB PO SCH (07:29)
[2019-08-22] MEDS: RIVAROXABAN 20 MG TAB PO SCH (07:29)
[2019-08-22] MEDS ORDERED: PANTOPRAZOLE 40 MG TABLET PO SCH (07:30)
[2019-08-22] MEDS: INSULIN ASPART (NovoLOG) 100 UNIT/ML VIAL SQ SCH ×2 (07:30→13:01)
[2019-08-22] MEDS: NYSTATIN 100,000 UNIT/ML SUSP 500,000 UNIT/5 ML CUP PO SCH ×2 (07:30→13:01)
[2019-08-22] MEDS ORDERED: amLODIPine 10 MG TAB PO SCH (09:00)
[2019-08-22] MEDS ORDERED: ATORVASTATIN 20 MG TAB PO SCH (09:00)
[2019-08-22] MEDS: ACETAMINOPHEN TAB 325 MG TAB PO PRN (10:06)
[2019-08-22 11:58] LABS: Glucose,Whole Blood 247 mg/dL (75-99)
[2019-08-22] MEDS: SODIUM CHLORIDE 0.9% 1,000 ML IV SCH (12:53)
[2019-08-22] MEDS ORDERED: MAG HYDROX/AL HYDROX/SIMETH 30 ML, LIDOCAINE VISCOUS 30 ML, diphenhydrAMINE ELIXIR 75 M... PO SCH ×4 (13:00)
--- NOTE | 2019-08-22 13:02 | P.PN ---
Subjective Progress Note Date: 08/22/19 Principal diagnosis: Tremors, weakness, bloody bowel movements, recurrent adenocarcinoma of the lung This is a very pleasant 73-year-old gentleman who follows with Dr. Boyer as his primary care physician. He has a history of hypertension, diabetes mellitus, hyperlipidemia, left lower extremity DVT anticoagulated with Xarelto. He also has a history of a small right middle lobe nodule that Dr. Boyer had been following in the outpatient setting. During that time he was found to have a left lung nodule as well this was more concerning on the PET scan. The location of bronchoscopy was negative however follow-up PET scan did show increasing in size and SUV's. He was subsequently sent at [facility] and underwent a left upper lobectomy and the pathology did come back positive for adenocarcinoma. That was in 2018. He had been followed with Dr. Davila for emotherapy and completed that session. More recently he undergone a right lung wedge biopsy that was positive again for cancer. He has since undergone one treatment with Dr. Davila. He presented here to the emergency room yesterday with complaints of tremors, shortness of breath, weakness and nellie stool. He is seen today in consultation on the regular medical floor. He is awake and alert in no acute distress. He is maintaining O2 saturations in the upper 90s on room air. He's been afebrile. Hemodynamically stable. White count 4.3. Hemoglobin 9.8. Creatinine 1.76. Chest x-ray shows left-sided surgery with volume loss. Nodular patchy left perihilar pulmonary infiltrate unchanged compared to previous on 07/30/2019. There is minimal nodularity in the periphery of the left midlung more noticeable than previous exam and could relate to progression of tumor. On 08/22/2019 patient seen in follow-up on medical surgical floor, he is without any acute complaints, other than sore mouth, and patient has a small ulceration on the tip of his tongue. His any shortness of breath, denies any cough or congestion, no chest pain, he states his tremors are improving, room air pulse ox is 95%, no fever or chills, hemodynamically stable, lung sounds are clear, diminished at the bases, no rhonchi, no wheezes. Brain MRI was completed and showed cerebral atrophy, white matter changes with chronic small vessel ischemia, Demyelinating disease not excluded. No new labs. Objective - Vital Signs Vital signs: Vital Signs Temp 97.9 F 08/22/19 04:48 Pulse 74 08/22/19 07:30 Resp 20 08/22/19 04:48 BP 166/57 08/22/19 04:48 Pulse Ox 95 08/22/19 04:48 Intake & Output 08/21/19 08/22/19 08/22/19 18:59 06:59 18:59 Intake Total 600 60 Balance 600 60 Intake: Intake, IV Titration 600 Amount Sodium Chloride 0.9% 1, 600 000 ml @ 75 mls/hr IV . [id number] [facility] Rx#:[id number] Oral 60 Other: Voiding Method Toilet Toilet Toilet Urinal Urinal Urinal # Voids 2 - Exam GENERAL EXAM: Alert, pleasant, 73-year-old white male, on room air, with a pulse ox of 95% comfortable in no apparent distress. HEAD: Normocephalic/atraumatic. EYES: Normal reaction of pupils, equal size. Conjunctiva pink, sclera white. NOSE: Clear with pink turbinates. THROAT: No erythema or exudates. MOUTH: Small ulceration on the tip of the tongue NECK: No masses, no JVD, no thyroid enlargement, no adenopathy. CHEST: No chest wall deformity. Symmetrical expansion. LUNGS: Equal air entry with no crackles, wheeze, rhonchi or dullness. CVS: Regular rate and rhythm, normal S1 and S2, no gallops, no murmurs, no rubs ABDOMEN: Soft, nontender. No hepatosplenomegaly, normal bowel sounds, no guarding or rigidity. EXTREMITIES: No clubbing, no edema, no cyanosis, 2+ pulses and upper and lower extremities. MUSCULOSKELETAL: Muscle strength and tone normal. SPINE: No scoliosis or deformity SKIN: No rashes CENTRAL NERVOUS SYSTEM: Alert and oriented -3. No focal deficits, tone is normal in all 4 extremities. PSYCHIATRIC: Alert and oriented -3. Appropriate affect. Intact judgment and insight. - Labs CBC & Chem 7: 08/21/19 08:22 08/21/19 08:22 Labs: Abnormal Lab Results - Last 24 Hours (Table) 08/21/19 08/21/19 08/21/19 Range/Units 08:22 17:33 20:47 POC Glucose (mg/dL) 276 H 198 H (75-99) mg/dL Vitamin B12 1246.0 H (200.0-944.0) pg/mL 08/22/19 08/22/19 Range/Units 07:09 11:48 POC Glucose (mg/dL) 148 H 247 H (75-99) mg/dL Vitamin B12 (200.0-944.0) pg/mL Assessment and Plan Plan: #1 Tremors and weakness of unclear etiology, the patient had recently undergone 1 round of chemotherapy. #2 Recent right lung wedge biopsy positive for malignancy, performed any [facility]. #3 Previous history of adenocarcinoma of the left lung and previous lobectomy and chemotherapy. #4 History of left lower extremity DVT anticoagulated with Xarelto. #5 Hypertension. #6 Hyperlipidemia. #7 Diabetes mellitus. #8 Benign prosthetic hypertrophy. #9 Coronary artery disease. Plan: Patient is stable from pulmonary perspective, he can be considered for discharge home and he needs follow-up with Dr. Martin in regards for treatment of his recurrent lung cancer. No acute issues overnight, we'll order some Cool's solution for his oral ulcerations, no worsening dyspnea, no cough or congestion, his tremors are improving. We will sign off and follow on as-needed basis. I performed a history & physical examination of the patient and discussed their management with my nurse practitioner, Ada Fraser. I reviewed the nurse practitioner's note and agree with the documented findings and plan of care. Lung sounds are positive for diminished breath sounds at the bases. The findings and the impression was discussed with the patient. I attest to the documentation by the nurse practitioner. Time with Patient: Less than 30
--- NOTE | 2019-08-22 13:13 | P.PN ---
Progress Note - Text Progress Note Date: 08/22/19 Patient is on treatment with [facility], with this treatment it is important to take Folic melody and B12 for prevention o neurlogical symptoms. Patient was educated on this at last follow-up on 08/20 and rx was sent over. Discussed with nursing and reminder for patient. Will follow-up next week in clinic.
[2019-08-22] MEDS ORDERED: FOLIC ACID 1 MG TAB PO SCH (13:15)
[2019-08-22 14:40] VITALS: BP 157/74; PULSE 77; RESP 17; TEMP 98
--- NOTE | 2019-08-22 18:28 | P.CONS ---
History of Present Illness - Reason for Consult Consult date: 08/21/19 Severe tremors, metastatic lung cancer on chemotherapy - History of Present Illness This is a 73 yr old WM , known to have SKY lung nodule,monitored by Dr Boyer,which increased in size on follow up CT scan in May/2018,he underwent diagnostic bronchoscopy on 05/30/2018,which was not diagnostic,on 06/08/2018,he had a PET scan which revealed suspicious uptake in 2.8cm mass in SKY. He was referred to Dr Yadav at [facility],on 07/23/2018,he underwent SKY lobectomy and mediastinal nodes dissection,pathology revealed adenocarcinoma with mucinous features (4cm) with multiple microscopic and macroscopic satellite nodule,7/7 nodes were negative,all margins were negative. he started adjuvant carboplatin/gemzar on 09/24/2019,he had total 2 and 1/2 cycles,was discontinued on 11/06/2018 because he ended up with sepsis and in ICU and decided not to pursue additional therapy On 05/09/2019,he had a routine follow up PET scan which revealed enlarging left lung nodules,with suspicious SUV,most of them are small,largest about 2 cm. NextGen sequencing of previous lobectomy revealed no actionable mutation,PDL-1 was negative. On 05/29/2019,he had bronchoscopy,FNA of hilar node and transbronchial biopsies which were negative. 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 He was thus started back on treatment with carboplatin, Alimta and Keytruda , on 08/15/19. He status post-1 cycle The patient reports some decrease in appetite and oral intake as well as fatigue since the treatment. He has a prior history of tremors, for at least 2 years. According to the patient these usually occur at rest but are better when he starts moving. He has not had any formal diagnosis of essential tremor or Parkinson's as far as he is aware. The patient states that after an office visit on the day of admission, he went back home and laid down. He was feeling somewhat weak and fatigued. When he got up to go to the bathroom, he had an episode of severeshaking of his arms and lower extremities to the point where he could not move and thought he would fall down. He therefore came into the emergency room. He also noted possible maroon color stool on the day of admission. On admission he appeared to be somewhat dehydrated, With increase in creatinine to 1.96, whereas baseline is usually in the 1.7-1.8 range. Hemoglobin was 11 in the office, and 10.5 on admission, and then 9.8 at the time of evaluation. He denied any recurrence of blood in the stool Review of Systems Constitutional: Reports poor appetite, Reports weakness Eyes: denies blurred vision, denies pain Ears: deny: decreased hearing, ear discharge, earache, tinnitus Ears, nose, mouth and throat: Denies headache, Denies sore throat Cardiovascular: Reports decreased exercise tolerance Respiratory: Reports as per HPI Gastrointestinal: Reports hematochezia (questionable), Denies abdominal pain, Denies diarrhea, Denies nausea, Denies vomiting Genitourinary: Reports as per HPI Musculoskeletal: Reports gait dysfunction, Reports muscle weakness Integumentary: Denies pruritus, Denies rash Neurological: Reports as per HPI, Reports tremors, Reports weakness Psychiatric: Denies anxiety, Denies depression Endocrine: Reports fatigue, Reports weight change Hematologic/Lymphatic: Reports as per HPI Past Medical History Past Medical History: Coronary Artery Disease (CAD), Cancer, COPD, CVA/TIA, Diabetes Mellitus, Deep Vein Thrombosis (DVT), Hyperlipidemia, Hypertension, Myocardial Infarction ([place]), Osteoarthritis (OA), Pneumonia, Prostate Disorder, Seizure Disorder Additional Past Medical History / Comment(s): COPD, DM-2 BPH, SKY lesion measuring 1.9 x 1.6 cm in size and not showing any metabolic activity, chronic neck/back pain, BPH, TIA & seizure following lung biopsy, HERMELINDO Last Myocardial Infarction Date:: 05/24/12 History of Any Multi-Drug Resistant Organisms: None Reported Past Surgical History: Back Surgery, Cholecystectomy, Heart Catheterization, Hernia Repair, Tonsillectomy Additional Past Surgical History / Comment(s): 2011 cardiac cath - treated medically, lower back surgery, bilateral cataract removal, abdominal hernia repair, bronchoscopy. SKY lobe removed. lung biopsy. R lung Wedge biopsy completed 07/23/19. Past Anesthesia/Blood Transfusion Reactions: Previous Problems w/ Anesthesia Additional Past Anesthesia/Blood Transfusion Reaction / Comm: Seizure and mini stroke following lung biopsy Past Psychological History: Anxiety, Depression Additional Psychological History / Comment(s): Patient lives with son. 05/05/18 + 01/16/19: Pt. denies anxiety at this time. Pt. does drive. Does not have home care services or walker/cane. No home O2. Smoking Status: Former smoker Past Alcohol Use History: None Reported Additional Past Alcohol Use History / Comment(s): Pt started smoking in 1960 and quit in 1995. He was a 2ppd smoker. Past Drug Use History: None Reported - Past Family History Mother Family Medical History: No Reported History Father Family Medical History: Diabetes Mellitus Additional Family Medical History / Comment(s): Father of diabetes at the age of 83 yrs. Medications and Allergies Home Medications Medication Instructions Recorded Confirmed Type PARoxetine [Paxil] 20 mg PO DAILY 11/15/14 08/20/19 History Rivaroxaban [Xarelto] 20 mg PO DAILY 08/31/18 08/20/19 History Insulin Detemir [Levemir Flextouch] 80 units SQ HS 11/13/18 08/20/19 History Clotrimazole Cream [Lotrimin Cream] 1 applic TOPICAL BID #1 bottle 07/30/19 08/20/19 Rx Furosemide [Lasix] 40 mg PO BID 07/30/19 08/20/19 History Ipratropium-Albuterol Nebulize 3 ml INHALATION RT-TID PRN 07/30/19 08/20/19 History [Duoneb 0.5 mg-3 mg/3 ml Soln] Isosorbide Mononitrate 20 mg PO DAILY 07/30/19 08/20/19 History Lisinopril 40 mg PO DAILY 07/30/19 08/20/19 History Simvastatin [Zocor] 40 mg PO DAILY 07/30/19 08/20/19 History amLODIPine [Norvasc] 10 mg PO DAILY 07/30/19 08/20/19 History levETIRAcetam [Keppra] 500 mg PO BID 07/30/19 08/20/19 History Allergies Allergy/AdvReac Type Severity Reaction Status Date / Time No Known Allergies Allergy Verified 08/20/19 16:23 Physical Exam Vitals: Vital Signs Temp Pulse Pulse Pulse Resp BP Pulse Ox 08/22/19 13:22 78 10/18/19 13:13 76 08/22/19 13:00 98 F 77 17 157/74 98 08/22/19 07:30 74 08/22/19 07:20 72 08/22/19 04:48 97.9 F 92 20 166/57 95 08/21/19 21:36 83 08/21/19 21:17 83 08/21/19 21:00 98.1 F 82 22 146/70 100 Intake and Output 08/22/19 08/22/19 08/22/19 06:59 14:59 22:59 Other: Voiding Method Toilet Toilet Urinal Urinal # Voids 2 2 - Constitutional General appearance: no acute distress - EENT Eyes: EOMI, PERRLA ENT: hearing grossly normal, normal oropharynx - Neck Neck: no lymphadenopathy Thyroid: bilateral: normal size - Respiratory Respiratory: bilateral: CTA - Cardiovascular Rhythm: regular Heart sounds: normal: S1, S2 - Gastrointestinal General gastrointestinal: normal bowel sounds, soft - Integumentary Integumentary: normal - Neurologic Intermittent resting tremor of right upper extremity noted during evaluation. No significant rigidity on my exam. Neurologic: CNII-XII intact - Musculoskeletal Musculoskeletal: generalized weakness, strength equal bilaterally - Psychiatric Psychiatric: A&O x's 3, appropriate affect Results CBC & Chem 7: 08/21/19 08:22 08/21/19 08:22 Labs: Abnormal Lab Results - Last 24 Hours (Table) 08/21/19 08/21/19 08/22/19 Range/Units 08:22 20:47 07:09 POC Glucose (mg/dL) 198 H 148 H (75-99) mg/dL Vitamin B12 1246.0 H (200.0-944.0) pg/mL 08/22/19 Range/Units 11:48 POC Glucose (mg/dL) 247 H (75-99) mg/dL Vitamin B12 (200.0-944.0) pg/mL Chest x-ray: report reviewed Assessment and Plan (1) Tremor Narrative/Plan: The patient states that he a long-standing history of tremor, without any definite diagnosis. However, previously in the past this has been quite manageable and tolerable. He states that these have been worse since the chemotherapy, with the severe acute episode leading to this admission. Symptoms have improved significantly since treatment. He does have a prior history of seizures, on Keppra, but these symptoms are quite different from his prior seizures. - At this time the etiology is not clear. It is possible that these represent underlying benign tumor, with worsening due to dehydration and weakness. Other possibilities such as Parkinson's not ruled out, though on exam this appears to be less likely. - Given history of malignancy, MRI of the brain will be ordered. We'll also consult neurology for further evaluation Status: Acute Code(s): R25.1 - TREMOR, UNSPECIFIED SNOMED Code(s): 85444208 (2) Acute renal failure Narrative/Plan: The patient has underlying chronic kidney disease. Creatinine was elevated from baseline at the time of Admission, but has improved with hydration back to his usual baseline Status: Acute Code(s): N17.9 - ACUTE KIDNEY FAILURE, UNSPECIFIED SNOMED Code(s): 74521642 (3) Hematochezia Narrative/Plan: The history of this is questionable, on discussing with the patient further. The case was discussed with the emergency room physician in detail the time . An acute GI bleed was of concern at that time. However his hemoglobin has not changed much from baseline. It is 9.8 today, with the slight drop easily explained by hydration and /or chemotherapy effect. He has had no recurrent evidence of bleeding. In fact he stated that he was not sure if he had definitely seen blood on not. Status: Acute Code(s): K92.1 - MELENA SNOMED Code(s): 859689119 (4) Lung cancer Narrative/Plan: Diagnostic and therapeutic circumstances as described. Assuming that acute issues are resolved sufficiently, and no new abnormalities noted on MRI or neurology evaluation, the plan would be to continue treatment as scheduled on discharge. He does have a follow-up appointment scheduled prior to his treatment for additional evaluation Status: Acute Code(s): C34.90 - MALIGNANT NEOPLASM OF UNSP PART OF UNSP BRONCHUS OR LUNG SNOMED Code(s): 097507062 Plan: The case was discussed in detail with the emergency room physician at the time of admission
== END 2019-08-22 15:10 | disposition home or self-care (01) ==
LOC: EC 16:00 → 3NMEDONC 19:07
PROVIDERS: ADMIT Internal Medicine; ATTEND Internal Medicine
DX: R25.1 Tremor, unspecified (principal); N17.9 Acute kidney failure, unspecified; C34.91 Malignant neoplasm of unspecified part of right bronchus or lung; I12.9 Hypertensive chronic kidney disease with stage 1 through stage 4 chronic kidney disease, or unspecified chronic kidney disease; N18.3 Chronic kidney disease, stage 3 (moderate); E11.22 Type 2 diabetes mellitus with diabetic chronic kidney disease; R26.2 Difficulty in walking, not elsewhere classified; M19.90 Unspecified osteoarthritis, unspecified site; J44.9 Chronic obstructive pulmonary disease, unspecified; I25.10 Atherosclerotic heart disease of native coronary artery without angina pectoris; E78.5 Hyperlipidemia, unspecified; N40.0 Benign prostatic hyperplasia without lower urinary tract symptoms; G40.909 Epilepsy, unspecified, not intractable, without status epilepticus; F41.9 Anxiety disorder, unspecified; F32.9 Major depressive disorder, single episode, unspecified; E66.9 Obesity, unspecified; Z68.25 Body mass index [BMI] 25.0-25.9, adult; R53.1 Weakness; K92.1 Melena; G89.29 Other chronic pain; M54.2 Cervicalgia; M54.9 Dorsalgia, unspecified; Z79.01 Long term (current) use of anticoagulants; Z79.4 Long term (current) use of insulin; Z79.899 Other long term (current) drug therapy; Z86.73 Personal history of transient ischemic attack (TIA), and cerebral infarction without residual deficits; I25.2 Old myocardial infarction; Z86.718 Personal history of other venous thrombosis and embolism; Z87.01 Personal history of pneumonia (recurrent); Z90.2 Acquired absence of lung [part of]; Z90.49 Acquired absence of other specified parts of digestive tract; Z98.42 Cataract extraction status, left eye; Z98.41 Cataract extraction status, right eye; Z85.118 Personal history of other malignant neoplasm of bronchus and lung; Z83.3 Family history of diabetes mellitus
CPT/HCPCS: 96376; 96361 ×4; 96375; 96374; 99285; 36415; 94640 ×4; 94760; 93005; 80053 ×2; 80177; 84443; 82607; 82746; 83735; 85025 ×2; 85610; 85730; 82272; 71046; 70553; G0378 ×3; J2060; C9113 ×2; A9585

== ENCOUNTER 2019-09-06 05:31 | Inpatient (IN) | payer MEDICARE, OTHER ==
--- NOTE | 2019-09-06 05:41 | ED ---
Chest Pain HPI - General Stated Complaint: Chest Pain Time Seen by Provider: 09/06/19 05:38 - Related Data Home Medications Medication Instructions Recorded Confirmed PARoxetine [Paxil] 20 mg PO DAILY 11/15/14 08/20/19 Rivaroxaban [Xarelto] 20 mg PO DAILY 08/31/18 08/20/19 Insulin Detemir [Levemir Flextouch] 80 units SQ HS 11/13/18 08/20/19 Furosemide [Lasix] 40 mg PO BID 07/30/19 08/20/19 Ipratropium-Albuterol Nebulize 3 ml INHALATION RT-TID PRN 07/30/19 08/20/19 [Duoneb 0.5 mg-3 mg/3 ml Soln] Isosorbide Mononitrate 20 mg PO DAILY 07/30/19 08/20/19 Lisinopril 40 mg PO DAILY 07/30/19 08/20/19 Simvastatin [Zocor] 40 mg PO DAILY 07/30/19 08/20/19 amLODIPine [Norvasc] 10 mg PO DAILY 07/30/19 08/20/19 levETIRAcetam [Keppra] 500 mg PO BID 07/30/19 08/20/19 Previous Rx's Medication Instructions Recorded Clotrimazole Cream [Lotrimin Cream] 1 applic TOPICAL BID #1 bottle 07/30/19 Allergies Allergy/AdvReac Type Severity Reaction Status Date / Time No Known Allergies Allergy Verified 08/20/19 16:23 Review of Systems ROS Statement: Those systems with pertinent positive or pertinent negative responses have been documented in the HPI. ROS Other: All systems not noted in ROS Statement are negative. EKG Findings - EKG Comments: EKG Findings:: Possible old anterior infarct. - EKG Results: EKG: interpreted by ERMD, sinus rhythm, normal axis EKG shows: tachycardia (Rate 106 bpm) Past Medical History Past Medical History: Coronary Artery Disease (CAD), Cancer, COPD, CVA/TIA, Diabetes Mellitus, Deep Vein Thrombosis (DVT), Hyperlipidemia, Hypertension, Myocardial Infarction ([place]), Osteoarthritis (OA), Pneumonia, Prostate Disorder, Seizure Disorder Additional Past Medical History / Comment(s): COPD, DM-2 BPH, SKY lesion measuring 1.9 x 1.6 cm in size and not showing any metabolic activity, chronic neck/back pain, BPH, TIA & seizure following lung biopsy, HERMELINDO Last Myocardial Infarction Date:: 05/24/12 History of Any Multi-Drug Resistant Organisms: None Reported Past Surgical History: Back Surgery, Cholecystectomy, Heart Catheterization, Hernia Repair, Tonsillectomy Additional Past Surgical History / Comment(s): 2011 cardiac cath - treated medically, lower back surgery, bilateral cataract removal, abdominal hernia repair, bronchoscopy. SKY lobe removed. lung biopsy. R lung Wedge biopsy completed 07/23/19. Past Anesthesia/Blood Transfusion Reactions: Previous Problems w/ Anesthesia Additional Past Anesthesia/Blood Transfusion Reaction / Comment(s): Seizure and mini stroke following lung biopsy Past Psychological History: Anxiety, Depression Additional Psychological History / Comment(s): Patient lives with son. 05/05/18 + 01/16/19: Pt. denies anxiety at this time. Pt. does drive. Does not have home care services or walker/cane. No home O2. Smoking Status: Former smoker Past Alcohol Use History: None Reported Additional Past Alcohol Use History / Comment(s): Pt started smoking in 1960 and quit in 1995. He was a 2ppd smoker. Past Drug Use History: None Reported - Past Family History Mother Family Medical History: No Reported History Father Family Medical History: Diabetes Mellitus Additional Family Medical History / Comment(s): Father of diabetes at the age of 83 yrs. Disposition Referrals: Renzo Boyer MD [Primary Care Provider] - 1-2 days
--- NOTE | 2019-09-06 06:08 | XR ---
EXAMINATION TYPE: XR chest 1V portable DATE OF EXAM: 09/06/2019 COMPARISON: 08/20/2019 HISTORY: Chest pain TECHNIQUE: Single frontal view of the chest is obtained. FINDINGS: Heart size is normal. There is some fullness of the aortopulmonary window consistent with adenopathy. There is some linear density left upper lobe. Right lung is clear. There is no heart fail ure. There is no pleural effusion. There is probably a mild infiltrate behind the heart in the left l ower lobe unchanged. IMPRESSION: Mild left upper lobe density and mediastinal adenopathy consistent with malignancy. Left lower lobe infiltrate unchanged. No adverse change compared to last exam. No heart failure.
[2019-09-06 06:29] LABS: Basophils % (A) 0 %; Eosinophils % (A) 0 %; HCT 23.1 % (39.0-53.0); HGB 7.9 gm/dL (13.0-17.5); INR 1.1 (<1.2); Lymphocytes # (A) 0.3 k/uL (1.0-4.8); Lymphocytes % (A) 6 %; MCH 30.7 pg (25.0-35.0); MCV 90.4 fL (80.0-100.0); Mean Platelet Volume 6.4; Monocytes # (A) 0.3 k/uL (0-1.0); Monocytes % (A) 5 %; Neutrophils # (A) 5.2 k/uL (1.3-7.7); Neutrophils % (A) 88 %; Partial Thromboplastin Time 27.3 sec (22.0-30.0); Platelet Count 197 k/uL (150-450); Prothrombin Time 11.7 sec (9.0-12.0); RBC 2.56 m/uL (4.30-5.90); RDW 15.8 % (11.5-15.5); WBC 5.9 k/uL (3.8-10.6)
[2019-09-06 06:36] LABS: ALT 30 U/L (21-72); AST 19 U/L (17-59); African American GFR (CKD) 30 (>60 ml/min/1.73 sqM); Albumin 3.5 g/dL (3.5-5.0); Alkaline Phosphatase 100 U/L (38-126); Anion Gap 14 mmol/L; Blood Urea Nitrogen 63 mg/dL (9-20); Calcium 9.1 mg/dL (8.4-10.2); Carbon Dioxide 20 mmol/L (22-30); Chloride 102 mmol/L (98-107); Glucose 496 mg/dL (74-99); Magnesium 1.5 mg/dL (1.6-2.3); Potassium 5.5 mmol/L (3.5-5.1); Sodium 136 mmol/L (137-145); Total Bilirubin 0.4 mg/dL (0.2-1.3)
[2019-09-06 06:59] LABS: Amylase <30 U/L (30-110)
[2019-09-06] MEDS ORDERED: SODIUM CHLORIDE 0.9% 2,500 ML IV ONE (07:19)
[2019-09-06] MEDS ORDERED: CEFEPIME 2 GM in SODIUM CHLORIDE 0.9% 100 ML IVPB STA (07:25)
[2019-09-06] MEDS ORDERED: IPRATROPIUM-ALBUTEROL 3 ML NEB INHALATION PRN ×2 (07:25→13:07)
[2019-09-06 07:38] LABS: Appearance,Urine Clear (Clear); Bilirubin,Urine Negative (Negative); Blood,Urine Negative (Negative); Color,Urine Light Yellow; Glucose,Urine (UA) 4+ (Negative); Ketones,Urine Negative (Negative); Leukocyte Esterase,Urine Negative (Negative); Nitrite,Urine Negative (Negative); Protein,Urine Negative (Negative); Specific Gravity,Urine 1.013 (1.001-1.035)
[2019-09-06] MEDS ORDERED: LISINOPRIL 20 MG TAB PO SCH (09:00)
[2019-09-06] MEDS ORDERED: PARoxetine 20 MG TAB PO SCH (09:00)
[2019-09-06] MEDS ORDERED: FUROSEMIDE 40 MG TAB PO SCH (09:00)
[2019-09-06] MEDS: INSULIN ASPART (NovoLOG) 100 UNIT/ML VIAL SQ SCH ×4 (09:09→20:35)
[2019-09-06 09:10] LABS: Glucose,Whole Blood 489 mg/dL (75-99)
[2019-09-06] MEDS: levETIRAcetam 500 MG TAB PO SCH ×2 (09:10→20:33)
[2019-09-06] MEDS: FAMOTIDINE 20 MG/2 ML VIAL IV SCH (09:11)
[2019-09-06] MEDS: RIVAROXABAN 20 MG TAB PO SCH (09:11)
[2019-09-06] MEDS: amLODIPine 10 MG TAB PO SCH (09:11)
[2019-09-06] MEDS: ATORVASTATIN 20 MG TAB PO SCH (09:11)
[2019-09-06] MEDS: ISOSORBIDE MONONITRATE 20 MG TAB PO SCH (11:38)
[2019-09-06 12:12] LABS: Glucose,Whole Blood 455 mg/dL (75-99)
--- NOTE | 2019-09-06 13:23 | P.HPIM ---
History of Present Illness H&P Date: 09/06/19 Chief Complaint: Chest pain 73-year-old male patient with history of recently diagnosed lung CA with right lung biopsy completed on 07/23/2019 who has been started on chemotherapy, and has received second course of therapy presented to ED with complaint of chest pain that was associated with some shortness of breath; patient claims that same episode happened after first course of chemotherapy at which time he had chest pain followed by some tremors in his hands; patient follows up with Dr. Steward as an outpatient and was advised to be evaluated in ED Workup in ED was significant for a chest x-ray showing mild left upper lobe density and mediastinotomy adenopathy; left lower lobe infiltrate remains unchanged EKG was found to be unremarkable Blood work was significant for a hemoglobin of 7.9, sodium of 136, potassium 5.5, BUN/creatinine of 63/2.41; glucose was found to be elevated above 400 with a positive lactic acid level of 3.9 which trended down to 2.6 with hydration Urine is positive for 4+ glucose Review of Systems REVIEW OF SYSTEMS: CONSTITUTIONAL: No fever, no malaise, no fatigue. HEENT: No recent visual problems or hearing problems. Denied any sore throat. CARDIOVASCULAR: No chest pain, orthopnea, PND, no palpitations, no syncope. PULMONARY: No shortness of breath, no cough, no hemoptysis. GASTROINTESTINAL: No diarrhea, no nausea, no vomiting, no abdominal pain. NEUROLOGICAL: No headaches, no weakness, no numbness. HEMATOLOGICAL: Denies any bleeding or petechiae. GENITOURINARY: Denies any burning micturition, frequency, or urgency. MUSCULOSKELETAL/RHEUMATOLOGICAL: Denies any joint pain, swelling, or any muscle pain. ENDOCRINE: Denies any polyuria or polydipsia. The rest of the 14-point review of systems is negative. Past Medical History Past Medical History: Coronary Artery Disease (CAD), Cancer, COPD, CVA/TIA, Diabetes Mellitus, Deep Vein Thrombosis (DVT), Hyperlipidemia, Hypertension, Myocardial Infarction ([place]), Osteoarthritis (OA), Pneumonia, Prostate Disorder, Seizure Disorder Additional Past Medical History / Comment(s): COPD, DM-2 BPH, SKY lesion measuring 1.9 x 1.6 cm in size and not showing any metabolic activity, chronic neck/back pain, BPH, TIA & seizure following lung biopsy, HERMELINDO Last Myocardial Infarction Date:: 05/24/12 History of Any Multi-Drug Resistant Organisms: None Reported Past Surgical History: Back Surgery, Cholecystectomy, Heart Catheterization, Hernia Repair, Tonsillectomy Additional Past Surgical History / Comment(s): 2011 cardiac cath - treated medically, lower back surgery, bilateral cataract removal, abdominal hernia repair, bronchoscopy. SKY lobe removed.(L) lung thorocotomy 2018. lung biopsy. R lung Wedge biopsy completed 07/23/19. Past Anesthesia/Blood Transfusion Reactions: Previous Problems w/ Anesthesia Additional Past Anesthesia/Blood Transfusion Reaction / Comment(s): Seizure and mini stroke following lung biopsy Past Psychological History: Anxiety, Depression Additional Psychological History / Comment(s): Pt. denies anxiety at this time. Pt. does drive. Does not have home care services or walker/cane. No home O2. Smoking Status: Former smoker Past Alcohol Use History: None Reported Additional Past Alcohol Use History / Comment(s): Pt started smoking in 1960 and quit in 1995. He was a 2ppd smoker. Past Drug Use History: None Reported - Past Family History Mother Family Medical History: No Reported History Father Family Medical History: Diabetes Mellitus Additional Family Medical History / Comment(s): Father of diabetes at the age of 83 yrs. Medications and Allergies Home Medications Medication Instructions Recorded Confirmed Type Rivaroxaban [Xarelto] 20 mg PO HS 08/31/18 09/06/19 History Insulin Detemir [Levemir Flextouch] 72 units SQ HS 11/13/18 09/06/19 History Furosemide [Lasix] 40 mg PO BID 07/30/19 09/06/19 History Ipratropium-Albuterol Nebulize 3 ml INHALATION RT-TID PRN 07/30/19 09/06/19 History [Duoneb 0.5 mg-3 mg/3 ml Soln] Isosorbide Mononitrate 20 mg PO DAILY 07/30/19 09/06/19 History Lisinopril 40 mg PO DAILY 07/30/19 09/06/19 History Simvastatin [Zocor] 40 mg PO DAILY 07/30/19 09/06/19 History amLODIPine [Norvasc] 10 mg PO DAILY 07/30/19 09/06/19 History levETIRAcetam [Keppra] 500 mg PO BID 07/30/19 09/06/19 History Folic Acid 1 mg PO DAILY 09/06/19 09/06/19 History INSULIN ASPART (NovoLOG) [NovoLOG See Protocol SQ ACHS PRN 09/06/19 09/06/19 History (formulary)] PARoxetine HCL 20 mg PO DAILY 09/06/19 09/06/19 History Allergies Allergy/AdvReac Type Severity Reaction Status Date / Time No Known Allergies Allergy Verified 09/06/19 08:15 Physical Exam Vitals: Vital Signs Temp Pulse Pulse Resp BP BP Pulse Ox 09/06/19 10:06 92 09/06/19 09:55 100 09/06/19 09:10 106 H 20 09/06/19 08:42 97.6 F 90 18 138/62 100 09/06/19 07:35 96 16 162/69 99 09/06/19 06:00 18 09/06/19 05:42 98.2 F 103 H 20 146/73 99 Intake and Output 09/05/19 09/06/19 09/06/19 22:59 06:59 14:59 Intake Total 3420 Output Total 400 Balance 3020 Intake: Intake, IV Titration 3300 Amount Cefepime 2 gm In Sodium 800 Chloride 0.9% 100 ml @ 200 mls/hr IVPB ONCE STA Rx#:[id number] Sodium Chloride 0.9% 2, 2500 500 ml @ 999 mls/hr IV . Q2H31M ONE Rx#:[id number] Oral 120 Output: Urine 400 Other: Voiding Method Toilet # Voids 1 Weight 88.451 kg - Constitutional General appearance: Present: average body habitus, cooperative, no acute distress - EENT Eyes: Present: anicteric sclerae, EOMI, PERRLA, normal appearance ENT: Present: hearing grossly normal, normal oropharynx Ears: bilateral: normal - Neck Neck: Present: normal ROM. Absent: lymphadenopathy, rigidity, thyromegaly Carotids: negative: bruit present Thyroid: bilateral: normal size, negative: enlarged, nodule - Respiratory Respiratory: bilateral: CTA, negative: rales, rhonchi, wheezing - Cardiovascular Rhythm: regular Heart sounds: normal: S1, S2 Abnormal Heart Sounds: Absent: systolic murmur, diastolic murmur - Gastrointestinal General gastrointestinal: Present: normal bowel sounds, soft. Absent: distended, organomegaly, tenderness - Genitourinary Genitourinary Comment(s): deferred - Integumentary Integumentary: Present: normal turgor. Absent: jaundiced, rash, ulcer - Neurologic Neurologic: Present: CNII-XII intact. Absent: focal deficits - Musculoskeletal Musculoskeletal: Present: gait normal, strength equal bilaterally - Psychiatric Psychiatric: Present: A&O x's 3, appropriate affect, intact judgment & insight Results CBC & Chem 7: 09/06/19 05:36 09/06/19 05:36 Labs: Abnormal Lab Results - Last 24 Hours (Table) 09/06/19 09/06/19 09/06/19 Range/Units 05:36 05:36 05:36 RBC 2.56 L (4.30-5.90) m/uL Hgb 7.9 L D (13.0-17.5) gm/dL Hct 23.1 L (39.0-53.0) % RDW 15.8 H (11.5-15.5) % Lymphocytes # 0.3 L (1.0-4.8) k/uL Sodium 136 L (137-145) mmol/L Potassium 5.5 H (3.5-5.1) mmol/L Carbon Dioxide 20 L (22-30) mmol/L BUN 63 H (9-20) mg/dL Creatinine 2.41 H (0.66-1.25) mg/dL Glucose 496 H (74-99) mg/dL POC Glucose (mg/dL) (75-99) mg/dL Plasma Lactic Acid Nehemias 3.9 H* (0.7-2.0) mmol/L Magnesium 1.5 L (1.6-2.3) mg/dL Total Protein 6.0 L (6.3-8.2) g/dL Amylase <30 L (30-110) U/L Urine Glucose (UA) (Negative) 09/06/19 09/06/19 09/06/19 Range/Units 07:32 09:08 10:12 RBC (4.30-5.90) m/uL Hgb (13.0-17.5) gm/dL Hct (39.0-53.0) % RDW (11.5-15.5) % Lymphocytes # (1.0-4.8) k/uL Sodium (137-145) mmol/L Potassium (3.5-5.1) mmol/L Carbon Dioxide (22-30) mmol/L BUN (9-20) mg/dL Creatinine (0.66-1.25) mg/dL Glucose (74-99) mg/dL POC Glucose (mg/dL) 489 H (75-99) mg/dL Plasma Lactic Acid Nehemias 2.6 H* (0.7-2.0) mmol/L Magnesium (1.6-2.3) mg/dL Total Protein (6.3-8.2) g/dL Amylase (30-110) U/L Urine Glucose (UA) 4+ H (Negative) Thrombosis Risk Factor Assmnt - Choose All That Apply Any of the Below Risk Factors Present?: Yes Each Factor Represents 1 point: Abnormal pulmonary function (COPD), Obesity (BMI >25), Serious lung disease incl. pneumonia (< 1month) Other Risk Factors: Yes Each Risk Factor Represents 2 Points: Age 61-74 years Each Risk Factor Represents 3 Points: History of DVT/PE Other congenital or acquired thrombophilia - If yes, enter type in comment: No Thrombosis Risk Factor Assessment Total Risk Factor Score: 8 Thrombosis Risk Factor Assessment Level: High Risk Assessment and Plan Assessment: 1. Chest pain; we will consult cardiology for evaluation - Etiology unclear; I will order a d-dimer and a CTA chest if d-dimer is elevated - Patient is currently asymptomatic and not hypoxic; we will continue to monitor 2. Acute renal failure; not sure of patient's underlying renal function - We will start patient on IV fluids normal saline at rate of 100 mL an hour; we will monitor strict YUNG's, daily weights, renal function and electrolytes - We will avoid nephrotoxic medications and hypotension 4. Hyperglycemia/ Diabetes mellitus type 1 - We will reorder home dose of Levemir at 80 units subcu daily at bedtime; we will monitor Accu-Cheks every before meals and at bedtime with insulin sliding scale 5. Hyperkalemia; possibly secondary to 2 - We'll proceed with IV fluid hydration and monitor electrolytes closely; we will treat hyperkalemia blood protocol if remains elevated despite IV fluid hydration and improvement in renal function 6. Lactic acidosis; no signs of infection - Lactic acid has trended down to 2.6; we will continue with IV fluid and monitor lactic acid levels closely; we will initiate sepsis workup if lactic acid continues to trend up 7. Hypertension; patient takes lisinopril 40 mg daily; we will hold lisinopril due to worsening renal function; continue with amlodipine 10 mg daily along with Isordil 20 mg daily 8. Hyperlipidemia; continue with home statin therapy 9. Seizure disorder; Keppra 500 mg twice a day 10. DVT prophylaxis; systemic anticoagulation with Xarelto CODE STATUS; full code Time with Patient: Greater than 30
[2019-09-06] MEDS: predniSONE 20 MG TAB PO SCH (14:44)
[2019-09-06] MEDS: SODIUM CHLORIDE 0.9% 1,000 ML IV SCH (14:49)
--- NOTE | 2019-09-06 15:08 | P.NPCON ---
History of Present Illness - Reason for Consult Consult date: 09/06/19 acute renal failure - Chief Complaint Chest pain - History of Present Illness 73-year-old gentleman coming to the hospital with the above complaints. 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 He has recurrence on PET scan and restarted on chemotherapy in August 2019. Yesterday was his second round of chemotherapy and post chemotherapy he developed chest pains or shortness of breath and palpitations. Blood pressures are low but no documented hypotensive episodes but he has elevated lactic acid. He has nausea but no vomiting or diarrhea. She has chronic kidney disease stage III with a baseline creatinine of 1.7-1.9 MG per DL. Creatinine on admission was 2.4. No recent contrast studies. No NSAID use. Review of Systems Constitutional: Reports as per HPI Past Medical History Past Medical History: Coronary Artery Disease (CAD), Cancer, COPD, CVA/TIA, Diabetes Mellitus, Deep Vein Thrombosis (DVT), Hyperlipidemia, Hypertension, Myocardial Infarction ([place]), Osteoarthritis (OA), Pneumonia, Prostate Disorder, Seizure Disorder Additional Past Medical History / Comment(s): COPD, DM-2 BPH, SKY lesion measuring 1.9 x 1.6 cm in size and not showing any metabolic activity, chronic neck/back pain, BPH, TIA & seizure following lung biopsy, HERMELINDO Last Myocardial Infarction Date:: 05/24/12 History of Any Multi-Drug Resistant Organisms: None Reported Past Surgical History: Back Surgery, Cholecystectomy, Heart Catheterization, Hernia Repair, Tonsillectomy Additional Past Surgical History / Comment(s): 2012 cardiac cath - treated medically, lower back surgery, bilateral cataract removal, abdominal hernia repair, bronchoscopy. SKY lobe removed.(L) lung thorocotomy 2018. lung biopsy. R lung Wedge biopsy completed 07/23/19. Past Anesthesia/Blood Transfusion Reactions: Previous Problems w/ Anesthesia Additional Past Anesthesia/Blood Transfusion Reaction / Comment(s): Seizure and mini stroke following lung biopsy Past Psychological History: Anxiety, Depression Additional Psychological History / Comment(s): Pt. denies anxiety at this time. Pt. does drive. Does not have home care services or walker/cane. No home O2. Smoking Status: Former smoker Past Alcohol Use History: None Reported Additional Past Alcohol Use History / Comment(s): Pt started smoking in 1960 and quit in 1995. He was a 2ppd smoker. Past Drug Use History: None Reported - Past Family History Mother Family Medical History: No Reported History Father Family Medical History: Diabetes Mellitus Additional Family Medical History / Comment(s): Father of diabetes at the age of 83 yrs. Medications and Allergies Home Medications Medication Instructions Recorded Confirmed Type Rivaroxaban [Xarelto] 20 mg PO HS 08/31/18 09/06/19 History Insulin Detemir [Levemir Flextouch] 72 units SQ HS 11/13/18 09/06/19 History Furosemide [Lasix] 40 mg PO BID 07/30/19 09/06/19 History Ipratropium-Albuterol Nebulize 3 ml INHALATION RT-TID PRN 07/30/19 09/06/19 His tory [Duoneb 0.5 mg-3 mg/3 ml Soln] Isosorbide Mononitrate 20 mg PO DAILY 07/30/19 09/06/19 History Lisinopril 40 mg PO DAILY 07/30/19 09/06/19 History Simvastatin [Zocor] 40 mg PO DAILY 07/30/19 09/06/19 History amLODIPine [Norvasc] 10 mg PO DAILY 07/30/19 09/06/19 History levETIRAcetam [Keppra] 500 mg PO BID 07/30/19 09/06/19 History Folic Acid 1 mg PO DAILY 09/06/19 09/06/19 History INSULIN ASPART (NovoLOG) [NovoLOG See Protocol SQ ACHS PRN 09/06/19 09/06/19 History (formulary)] PARoxetine HCL 20 mg PO DAILY 09/06/19 09/06/19 History Allergies Allergy/AdvReac Type Severity Reaction Status Date / Time No Known Allergies Allergy Verified 09/06/19 08:15 Physical Exam Vitals: Vital Signs Temp Pulse Pulse Resp BP BP Pulse Ox 09/06/19 11:05 97.6 F 88 18 119/60 100 09/06/19 10:06 92 09/06/19 09:55 100 09/06/19 09:10 106 H 20 09/06/19 08:42 97.6 F 90 18 138/62 100 09/06/19 07:35 96 16 162/69 99 09/06/19 06:00 18 09/06/19 05:42 98.2 F 103 H 20 146/73 99 Intake and Output 09/06/19 09/06/19 09/06/19 06:59 14:59 22:59 Intake Total 3420 Output Total 400 Balance 3020 Intake: Intake, IV Titration 3300 Amount Cefepime 2 gm In Sodium 800 Chloride 0.9% 100 ml @ 200 mls/hr IVPB ONCE STA Rx#:[id number] Sodium Chloride 0.9% 2, 2500 500 ml @ 999 mls/hr IV . Q2H31M ONE Rx#:[id number] Oral 120 Output: Urine 400 Other: Voiding Method Toilet # Voids 1 Weight 88.451 kg No acute distress S1-S2 heard Decreased lungs sounds in the left side Abdomen soft No edema Results - Lab Results Most recent lab results Calcium 9.1 mg/dL (8.4-10.2) 09/06/19 05:36 Magnesium 1.5 mg/dL (1.6-2.3) L 09/06/19 05:36 09/06/19 05:36 09/06/19 05:36 Assessment and Plan Assessment: #1 acute kidney injury suspect prerenal process from osmotic diuresis with hyperglycemia and ischemic ATN with low blood pressure. 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 Baseline creatinine 1.7-1.9 MG per DL. #3 hypertension currently low normal #4 adenocarcinoma of the left lung status post lobectomy currently on carboplatinum-based chemotherapy. #5 uncontrolled diabetes with hyperglycemia #6 hyperkalemia, rule out obstruction Plan: #1 hold lisinopril. #2 start IV fluids 0.9 at 100 ML's an hour. #3 bladder scan to rule out urinary retention #4 renal ultrasound for size #5 avoid nephrotoxic agents and hypotensive episodes #6 urine analysis and urine electrolytes #7 labs in the morning
[2019-09-06] MEDS: IPRATROPIUM-ALBUTEROL 3 ML NEB INHALATION SCH ×2 (16:00→20:36)
--- NOTE | 2019-09-06 16:14 | US ---
EXAMINATION TYPE: US renals and bladder DATE OF EXAM: 09/06/2019 COMPARISON: CLINICAL HISTORY: brenda. abnormal labs EXAM MEASUREMENTS: Right Kidney: 10.3 x 4.5 x 5.7 cm Left Kidney: 10.8 x 4.5 x 5.9 cm Right Kidney: Appears lobular. Lateral lower pole cystic appearing lesion = 0.8 x 0.9 x 0.7 cm Left Kidney: Possible prominent pyramid vs dromedary hump lower pole = 2.0 x 2.0 x 2.1 cm Bladder: anechoic. Thickened wall - 5.1 mm. Left Jets seen IMPRESSION: Small cyst lower pole right kidney. No evidence of solid renal mass or obstruction.
--- NOTE | 2019-09-06 16:35 | CONS ---
CONSULTATION PULMONARY/CRITICAL CARE CONSULTATION: REASON FOR CONSULTATION: Chest pain. DATE OF CONSULTATION: 09/06/2019 This is a 73-year-old male who apparently presented to the emergency room with complaints of chest pain. He apparently was seen by Dr. Landers down there. The patient also complained of shortness of breath. Not much history is provided by Dr. Landers here in the ER [place]. The patient states that he woke up to use the bathroom maybe about 2 o'clock or so and he started developing chest pain and shortness of breath. Currently states he is feeling a bit better. No chest pain. Also complaining of some mild shortness of breath. He also complains of chest congestion, a bit of a cough. Producing a small amount of phlegm. The patient does state that he is feeling better since he has been here in the hospital. He had a chest x-ray in the emergency room that revealed some fullness of the aortopulmonary window consistent with adenopathy. There is also some linear density in the left upper lobe. This is in keeping with his known history of lung cancer. The patient denies any fever or chills. Denies any nausea, vomiting or diarrhea. Denies any genitourinary complaints. He is not coughing up any blood. Again, as I mentioned, he is feeling better now than he did when he first came in. HOME MEDICATIONS: Include Paxil, Xarelto, Levemir, Lasix, DuoNeb, Imdur, lisinopril, Zocor, Norvasc, Keppra, Lotrimin cream. ALLERGIES: Denied. PAST MEDICAL HISTORY: Includes CAD, lung cancer, COPD, CVA, diabetes, DVT, hyperlipidemia, hypertension, myocardial infarction, osteoarthritis, pneumonia, BPH, and seizure disorder. In addition, the patient has had acute kidney injury. SURGICAL HISTORY: Includes back surgery, cholecystectomy, heart catheterization, hernia repair, bilateral cataract surgery, abdominal hernia repair, bronchoscopy, left upper lobectomy, lung biopsy, right lung wedge biopsy, all of which were done this year in July I believe at [facility]. SOCIAL HISTORY: Positive for previous tobacco use. Denies any alcohol use or illicit drug use. FAMILY HISTORY: Positive for father with diabetes. Mother was healthy. REVIEW OF SYSTEMS: CONSTITUTIONAL negative. NEUROLOGIC negative. HEENT negative. CARDIOVASCULAR: Chest discomfort. PULMONARY: Shortness of breath, chest tightness, wheezing, cough, minimal phlegm production. GI negative. negative. RHEUMATOLOGIC negative. IMMUNOLOGIC negative. DERMATOLOGIC: Negative. PHYSICAL EXAMINATION: VITAL SIGNS: Current vital signs include temperature 97.6, heart rate 88, respiratory rate 18, blood pressure 119/60, mean 79, 2 L saturations 90%. He appears mildly dyspneic and tachypneic. No conversational dyspnea. No use of accessory muscles. No audible wheezing. HEENT examination is grossly unremarkable. Nasal O2 in place. NECK: Supple. Full range of motion. No adenopathy. Neck veins are flat. CARDIOVASCULAR examination reveals regular rhythm rate. S1, S2 normal. No S3, S4, or murmur. LUNGS: Reveal mild expiratory rhonchi and wheezes. There is prolongation on forced maneuver. Breath sounds are diminished throughout. No crackles. ABDOMEN: Soft. Bowel sounds are heard. EXTREMITIES are intact. No cyanosis, clubbing, or edema. SKIN: Without rash. NEUROLOGIC examination is brief but nonfocal. LAB DATA: Reviewed. White count 5.9, hemoglobin 10.9, hematocrit 43.1, platelet count 197,000. PT/INR PTT normal. Sodium 136, potassium 5.5, chloride 102, CO2 20, anion gap 14. BUN and creatinine were 63 and 2.41. The glucose was 496 and then repeat was 489. Lactic acid was 3.9 then came down to 2.6. Magnesium 1.5, albumin 3.5, amylase less than 30, lipase normal. The urine was essentially negative say for 4+ glucose. Chest x-ray is reviewed. Please see my note above about the chest x-ray. Medications are reviewed. ASSESSMENT: 1. Chest pain and shortness of breath, most likely related to underlying chronic obstructive pulmonary disease exacerbation. Currently, his breathing is much improved and his chest pain has dissipated. His troponin was negative. 2. Mild lactic acidemia, of unclear etiology. No clear-cut infection present, although the patient does describe what sounds like a mild purulent tracheobronchitis. 3. History of advanced mucinous adenocarcinoma, status post left upper lobectomy at [facility]. 4. History of chronic obstructive pulmonary disease, currently active. 5. Coronary artery disease. 6. Cerebrovascular accident. 7. Diabetes mellitus. 8. Deep venous thrombosis. 9. Hyperlipidemia. 10.Hypertension. 11.Myocardial infarction. 12.Degenerative joint disease. 13.Benign prostatic hypertrophy. 14.Seizure disorder. 15.Prior history of pneumonia. 16.History of acute kidney injury. PLAN: The patient's medications are reviewed. The patient had a PET scan May 2019. The PET scan revealed 2 adjacent hypermetabolic nodules but no evidence of metastatic disease. The patient's previous brain MRI showed cerebral atrophy and white matter changes consistent with chronic small-vessel ischemia. He was seen last by my partner, Dr. Snider in mid August for tremors and weakness following one round of chemotherapy. That has dissipated. The patient also apparently had a recent right lung wedge biopsy which was positive for malignancy. That is in addition to his left upper lobectomy for adenocarcinoma previously. The patient's medications are adjusted. He will be treated for a COPD exacerbation. We will make sure that he is on appropriate medications including short-acting beta agonist, short-acting muscarinic antagonist, long-acting beta agonist, inhaled corticosteroids, systemic corticosteroids and oral antibiotics. MMODL / IJN: [id number] /
[2019-09-06 17:30] LABS: Glucose,Whole Blood 397 mg/dL (75-99)
[2019-09-06] MEDS: SODIUM BICARBONATE TAB 650 MG TAB PO SCH ×2 (17:39→20:33)
[2019-09-06 18:37] LABS: Calcium 8.7 mg/dL (8.4-10.2); Potassium 5.3 mmol/L (3.5-5.1)
[2019-09-06 20:03] LABS: Glucose,Whole Blood 554 mg/dL (75-99)
[2019-09-06] MEDS: AMOXIC-POT CLAV 875-125MG 1 EACH TAB PO SCH (20:33)
[2019-09-06] MEDS: INSULIN DETEMIR (LEVEMIR) 100 UNIT/ML SYR SQ SCH (20:35)
[2019-09-06] MEDS: SYMBICORT 160-4.5 MCG INHALER INHALATION SCH (20:41)
--- NOTE | 2019-09-06 22:30 | P.CONS ---
History of Present Illness - Reason for Consult Consult date: 09/06/19 Chest Pain, Lung Ca on chemo - History of Present Illness This is a 73 yr old WM , known to have SKY lung nodule,monitored by Dr Boyer,which increased in size on follow up CT scan in May/2018,he underwent diagnostic bronchoscopy on 05/30/2018,which was not diagnostic,on 06/08/2018,he had a PET scan which revealed suspicious uptake in 2.8cm mass in SKY. He was referred to Dr Yadav at [facility],on 07/23/2018,he underwent SKY lobectomy and mediastinal nodes dissection,pathology revealed adenocarcinoma with mucinous features (4cm) with multiple microscopic and macroscopic satellite nodule,7/7 nodes were negative,all margins were negative. he started adjuvant carboplatin/gemzar on 09/24/2019,he had total 2 and 1/2 cycles,was discontinued on 11/06/2018 because he ended up with sepsis and in ICU and decided not to pursue additional therapy On 05/09/2019,he had a routine follow up PET scan which revealed enlarging left lung nodules,with suspicious SUV,most of them are small,largest about 2 cm. NextGen sequencing of previous lobectomy revealed no actionable mutation,PDL-1 was negative. On 05/29/2019,he had bronchoscopy,FNA of hilar node and transbronchial biopsies which were negative. 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 He was thus started back on treatment with carboplatin, Alimta and Keytruda , on 08/15/19. He status post-2 cycles. He was admitted after cycle 1, with increased tremors and weakness. He was evaluated by neurology, and also had brain imaging. These were felt to be metabolic, and did improve with hydration and electrolytes supplementation. The patient continued chemotherapy on discharge and had cycle 2 on the day of this admission. He states that after going home, he fell asleep but woke up with significant discomfort in his chest and weakness. He therefore came back to the hospital, and was admitted for further management. He denied any significant tremors this time. Consult was placed for further evaluation and recommendations During this admission the patient states that he had the same symptoms previously. However at the time of his previous admission he denied any chest pain. His main complaint had been marked weakness and severe tremors. Review of Systems Constitutional: Reports weakness Eyes: denies blurred vision, denies pain Ears: deny: decreased hearing, ear discharge, earache, tinnitus Ears, nose, mouth and throat: Denies headache, Denies sore throat Cardiovascular: Reports chest pain Respiratory: Reports pain, Denies cough Gastrointestinal: Denies abdominal pain, Denies diarrhea, Denies nausea, Denies vomiting Genitourinary: Reports as per HPI Musculoskeletal: Reports muscle weakness Integumentary: Denies pruritus, Denies rash Neurological: Reports tremors, Reports weakness Psychiatric: Reports anxiety Endocrine: Reports fatigue Hematologic/Lymphatic: Reports as per HPI Past Medical History Past Medical History: Coronary Artery Disease (CAD), Cancer, COPD, CVA/TIA, Diabetes Mellitus, Deep Vein Thrombosis (DVT), Hyperlipidemia, Hypertension, Myocardial Infarction (OK), Osteoarthritis (OA), Pneumonia, Prostate Disorder, Seizure Disorder Additional Past Medical History / Comment(s): COPD, DM-2 BPH, SKY lesion measuring 1.9 x 1.6 cm in size and not showing any metabolic activity, chronic neck/back pain, BPH, TIA & seizure following lung biopsy, HERMELINDO Last Myocardial Infarction Date:: 05/24/12 History of Any Multi-Drug Resistant Organisms: None Reported Past Surgical History: Back Surgery, Cholecystectomy, Heart Catheterization, Hernia Repair, Tonsillectomy Additional Past Surgical History / Comment(s): 2011 cardiac cath - treated medically, lower back surgery, bilateral cataract removal, abdominal hernia repair, bronchoscopy. SKY lobe removed.(L) lung thorocotomy 2017. lung biopsy. R lung Wedge biopsy completed 07/23/19. Past Anesthesia/Blood Transfusion Reactions: Previous Problems w/ Anesthesia Additional Past Anesthesia/Blood Transfusion Reaction / Comm: Seizure and mini stroke following lung biopsy Past Psychological History: Anxiety, Depression Additional Psychological History / Comment(s): Pt. denies anxiety at this time. Pt. does drive. Does not have home care services or walker/cane. No home O2. Smoking Status: Former smoker Past Alcohol Use History: None Reported Additional Past Alcohol Use History / Comment(s): Pt started smoking in 1960 and quit in 1995. He was a 2ppd smoker. Past Drug Use History: None Reported - Past Family History Mother Family Medical History: No Reported History Father Family Medical History: Diabetes Mellitus Additional Family Medical History / Comment(s): Father of diabetes at the age of 83 yrs. Medications and Allergies Home Medications Medication Instructions Recorded Confirmed Type Rivaroxaban [Xarelto] 20 mg PO DAILY 08/31/18 09/06/19 History Insulin Detemir [Levemir Flextouch] 72 units SQ HS 11/13/18 09/06/19 History Furosemide [Lasix] 40 mg PO BID 07/30/19 09/06/19 History Ipratropium-Albuterol Nebulize 3 ml INHALATION RT-TID PRN 07/30/19 09/06/19 History [Duoneb 0.5 mg-3 mg/3 ml Soln] Isosorbide Mononitrate 20 mg PO DAILY 07/30/19 09/06/19 History Lisinopril 40 mg PO DAILY 07/30/19 09/06/19 History Simvastatin [Zocor] 40 mg PO DAILY 07/30/19 09/06/19 History amLODIPine [Norvasc] 10 mg PO DAILY 07/30/19 09/06/19 History levETIRAcetam [Keppra] 500 mg PO BID 07/30/19 09/06/19 History Folic Acid 1 mg PO DAILY 09/06/19 09/06/19 History INSULIN ASPART (NovoLOG) [NovoLOG See Protocol SQ ACHS PRN 09/06/19 09/06/19 History (formulary)] Allergies Allergy/AdvReac Type Severity Reaction Status Date / Time No Known Allergies Allergy Verified 09/06/19 08:15 Physical Exam Vitals: Vital Signs Temp Pulse Pulse Resp BP BP Pulse Ox 09/06/19 20:48 87 09/06/19 20:37 87 09/06/19 20:00 98.2 F 92 18 149/63 97 09/06/19 16:45 98.4 F 83 18 118/53 100 09/06/19 16:09 80 09/06/19 16:00 80 99 09/06/19 11:05 97.6 F 88 18 119/60 100 09/06/19 10:06 92 09/06/19 09:55 100 09/06/19 09:10 106 H 20 09/06/19 08:42 97.6 F 90 18 138/62 100 09/06/19 07:35 96 16 162/69 99 09/06/19 06:00 18 09/06/19 05:42 98.2 F 103 H 20 146/73 99 Intake and Output 09/06/19 09/06/19 09/06/19 06:59 14:59 22:59 Intake Total 3538 240 Output Total 400 600 Balance 3138 -360 Intake: Intake, IV Titration 3300 Amount Cefepime 2 gm In Sodium 800 Chloride 0.9% 100 ml @ 200 mls/hr IVPB ONCE STA Rx#:[id number] Sodium Chloride 0.9% 2, 2500 500 ml @ 999 mls/hr IV . Q2H31M ONE Rx#:[id number] Oral 238 240 Output: Urine 400 600 Other: Voiding Method Toilet Toilet # Voids 1 2 Weight 88.451 kg - Constitutional General appearance: no acute distress - EENT Eyes: EOMI, PERRLA ENT: hearing grossly normal, normal oropharynx - Neck Neck: no lymphadenopathy Thyroid: bilateral: normal size - Respiratory Respiratory: bilateral: CTA - Cardiovascular Rhythm: regular Heart sounds: normal: S1, S2 - Gastrointestinal General gastrointestinal: normal bowel sounds, soft - Integumentary Integumentary: normal - Neurologic Neurologic: CNII-XII intact - Musculoskeletal Musculoskeletal: generalized weakness, strength equal bilaterally - Psychiatric Psychiatric: A&O x's 3, appropriate affect Results CBC & Chem 7: 09/06/19 05:36 09/06/19 17:50 Labs: Abnormal Lab Results - Last 24 Hours (Table) 09/06/19 09/06/19 09/06/19 Range/Units 05:36 05:36 05:36 RBC 2.56 L (4.30-5.90) m/uL Hgb 7.9 L D (13.0-17.5) gm/dL Hct 23.1 L (39.0-53.0) % RDW 15.8 H (11.5-15.5) % Lymphocytes # 0.3 L (1.0-4.8) k/uL Sodium 136 L (137-145) mmol/L Potassium 5.5 H (3.5-5.1) mmol/L Carbon Dioxide 20 L (22-30) mmol/L BUN 63 H (9-20) mg/dL Creatinine 2.41 H (0.66-1.25) mg/dL Glucose 496 H (74-99) mg/dL POC Glucose (mg/dL) (75-99) mg/dL Plasma Lactic Acid Nehemias 3.9 H* (0.7-2.0) mmol/L Magnesium 1.5 L (1.6-2.3) mg/dL Total Protein 6.0 L (6.3-8.2) g/dL Amylase <30 L (30-110) U/L Urine Glucose (UA) (Negative) 09/06/19 09/06/19 09/06/19 Range/Units 07:32 09:08 10:12 RBC (4.30-5.90) m/uL Hgb (13.0-17.5) gm/dL Hct (39.0-53.0) % RDW (11.5-15.5) % Lymphocytes # (1.0-4.8) k/uL Sodium (137-145) mmol/L Potassium (3.5-5.1) mmol/L Carbon Dioxide (22-30) mmol/L BUN (9-20) mg/dL Creatinine (0.66-1.25) mg/dL Glucose (74-99) mg/dL POC Glucose (mg/dL) 489 H (75-99) mg/dL Plasma Lactic Acid Nehemias 2.6 H* (0.7-2.0) mmol/L Magnesium (1.6-2.3) mg/dL Total Protein (6.3-8.2) g/dL Amylase (30-110) U/L Urine Glucose (UA) 4+ H (Negative) 09/06/19 09/06/19 09/06/19 Range/Units 12:10 14:30 17:17 RBC (4.30-5.90) m/uL Hgb (13.0-17.5) gm/dL Hct (39.0-53.0) % RDW (11.5-15.5) % Lymphocytes # (1.0-4.8) k/uL Sodium (137-145) mmol/L Potassium (3.5-5.1) mmol/L Carbon Dioxide (22-30) mmol/L BUN (9-20) mg/dL Creatinine (0.66-1.25) mg/dL Glucose (74-99) mg/dL POC Glucose (mg/dL) 455 H 397 H (75-99) mg/dL Plasma Lactic Acid Nehemias 2.3 H* (0.7-2.0) mmol/L Magnesium (1.6-2.3) mg/dL Total Protein (6.3-8.2) g/dL Amylase (30-110) U/L Urine Glucose (UA) (Negative) 09/06/19 09/06/19 09/06/19 Range/Units 17:50 18:17 20:02 RBC (4.30-5.90) m/uL Hgb (13.0-17.5) gm/dL Hct (39.0-53.0) % RDW (11.5-15.5) % Lymphocytes # (1.0-4.8) k/uL Sodium 136 L (137-145) mmol/L Potassium 5.3 H (3.5-5.1) mmol/L Carbon Dioxide 20 L (22-30) mmol/L BUN 60 H (9-20) mg/dL Creatinine 2.00 H (0.66-1.25) mg/dL Glucose 356 H (74-99) mg/dL POC Glucose (mg/dL) 554 H (75-99) mg/dL Plasma Lactic Acid Nehemias 3.3 H* (0.7-2.0) mmol/L Magnesium (1.6-2.3) mg/dL Total Protein (6.3-8.2) g/dL Amylase (30-110) U/L Urine Glucose (UA) (Negative) Comments: EKG from this admission, and previous admission reviewed personally and comp ared . Abdominal ultrasound report reviewed Chest x-ray: report reviewed Assessment and Plan (1) Chest pain Narrative/Plan: At the time of evaluation the chest pain and mostly resolved. It appears and assessment at this was felt to be atypical. Initial troponins were negative. - At this time the cause is unclear. The patient feels that this is related to his chemotherapy but he did not have these symptoms with cycle 1. His current regimen is not usually cardiotoxic. - Workup is in progress. Pulmonary have also been consulted Current Visit: No Status: Acute Code(s): R07.9 - CHEST PAIN, UNSPECIFIED SNOMED Code(s): 08979540 (2) Acute renal failure Narrative/Plan: The patient does have seek any at baseline. He had presented with increasing creatinine from baseline during his prior admission and this had improved with hydration. There is worsening of creatinine noted during this admission. The patient states that he has been eating and drinking well at home. This could potentially represent chemotherapy effect from carboplatin. - Creatinine has improved with hydration. Nephrology is on consult. Ultrasound KUB was negative Current Visit: No Status: Acute Code(s): N17.9 - ACUTE KIDNEY FAILURE, UNSPECIFIED SNOMED Code(s): 39769310 (3) Lung cancer Narrative/Plan: Diagnostic and therapeutic circumstances as described. Continue follow-up as outpatient once acute situation is resolved. Monitor while inpatient for chemotherapy-induced cytopenias developing and support as needed Current Visit: No Status: Acute Code(s): C34.90 - MALIGNANT NEOPLASM OF UNSP PART OF UNSP BRONCHUS OR LUNG SNOMED Code(s): 280151999
[2019-09-06 23:57] LABS: Hemoglobin A1C 11.5 % (4.0-6.0)
[2019-09-07 06:21] LABS: Glucose,Whole Blood 358 mg/dL (75-99)
[2019-09-07] MEDS: SODIUM CHLORIDE 0.9% 1,000 ML IV SCH ×3 (06:24→21:17)
[2019-09-07] MEDS: INSULIN ASPART (NovoLOG) 100 UNIT/ML VIAL SQ SCH ×4 (06:28→21:18)
[2019-09-07 06:55] LABS: Anisocytosis Slight; Basophils % (A) 0 %; Eosinophils % (A) 0 %; HCT 21.7 % (39.0-53.0); HGB 7.4 gm/dL (13.0-17.5); Lymphocytes # (A) 0.3 k/uL (1.0-4.8); Lymphocytes % (A) 4 %; MCH 30.9 pg (25.0-35.0); MCHC 33.9 g/dL (31.0-37.0); MCV 91.2 fL (80.0-100.0); Mean Platelet Volume 6.1; Monocytes # (A) 0.2 k/uL (0-1.0); Monocytes % (A) 3 %; Neutrophils # (A) 6.1 k/uL (1.3-7.7); Neutrophils % (A) 92 %; Platelet Count 206 k/uL (150-450); RBC 2.38 m/uL (4.30-5.90); RDW 16.6 % (11.5-15.5); WBC 6.6 k/uL (3.8-10.6)
[2019-09-07 07:11] LABS: Calcium 8.7 mg/dL (8.4-10.2); Potassium 5.5 mmol/L (3.5-5.1)
[2019-09-07] MEDS: FAMOTIDINE 20 MG/2 ML VIAL IV SCH (08:49)
[2019-09-07] MEDS: amLODIPine 10 MG TAB PO SCH (08:50)
[2019-09-07] MEDS: RIVAROXABAN 20 MG TAB PO SCH (08:50)
[2019-09-07] MEDS: FOLIC ACID 1 MG TAB PO SCH (08:50)
[2019-09-07] MEDS: SODIUM BICARBONATE TAB 650 MG TAB PO SCH ×3 (08:50→21:18)
[2019-09-07] MEDS: ATORVASTATIN 20 MG TAB PO SCH (08:50)
[2019-09-07] MEDS: levETIRAcetam 500 MG TAB PO SCH ×2 (08:50→21:18)
[2019-09-07] MEDS: AMOXIC-POT CLAV 875-125MG 1 EACH TAB PO SCH ×2 (08:50→21:18)
[2019-09-07] MEDS: predniSONE 20 MG TAB PO SCH (08:50)
[2019-09-07] MEDS: ISOSORBIDE MONONITRATE 20 MG TAB PO SCH (08:50)
[2019-09-07] MEDS: SYMBICORT 160-4.5 MCG INHALER INHALATION SCH ×2 (09:04→19:53)
[2019-09-07] MEDS: IPRATROPIUM-ALBUTEROL 3 ML NEB INHALATION SCH ×4 (09:04→19:53)
[2019-09-07] MEDS ORDERED: FUROSEMIDE 10 MG/ML 2 ML VIAL IV PRN (10:27)
[2019-09-07] MEDS: METOPROLOL TARTRATE 25 MG TAB PO SCH ×3 (10:47→21:18)
--- NOTE | 2019-09-07 10:59 | P.PN ---
Subjective Progress Note Date: 09/07/19 Seen and examined for the follow-up of acute kidney injury. Feels better today. No nausea vomiting or diarrhea. Admits good urine output. Objective - Vital Signs Vital signs: Vital Signs Temp 98.3 F 09/07/19 08:00 Pulse 84 09/07/19 09:18 Resp 16 09/07/19 08:00 BP 155/68 09/07/19 08:00 Pulse Ox 95 09/07/19 08:00 Intake & Output 09/06/19 09/07/19 09/07/19 19:59 06:59 18:59 Intake Total 240 Output Total 625 Balance -385 Weight Intake: Intake, IV Titration Amount Cefepime 2 gm In Sodium Chloride 0.9% 100 ml @ 200 mls/hr IVPB ONCE STA Rx#:[id number] Sodium Chloride 0.9% 2, 500 ml @ 999 mls/hr IV . Q2H31M ONE Rx#:[id number] Oral 240 Output: Urine 625 Other: Voiding Method # Voids 1 - Exam No acute distress S1-S2 heard Decreased breath sounds left side Abdomen soft No edema - Labs CBC & Chem 7: 09/07/19 05:44 09/07/19 05:44 Labs: Abnormal Lab Results - Last 24 Hours (Table) 09/06/19 09/06/19 09/06/19 Range/Units 12:10 14:30 17:17 RBC (4.30-5.90) m/uL Hgb (13.0-17.5) gm/dL Hct (39.0-53.0) % RDW (11.5-15.5) % Lymphocytes # (1.0-4.8) k/uL Sodium (137-145) mmol/L Potassium (3.5-5.1) mmol/L Chloride (98-107) mmol/L Carbon Dioxide (22-30) mmol/L BUN (9-20) mg/dL Creatinine (0.66-1.25) mg/dL Glucose (74-99) mg/dL POC Glucose (mg/dL) 455 H 397 H (75-99) mg/dL Hemoglobin A1c (4.0-6.0) % Plasma Lactic Acid Nehemias 2.3 H* (0.7-2.0) mmol/L 09/06/19 09/06/19 09/06/19 Range/Units 17:50 17:54 18:17 RBC (4.30-5.90) m/uL Hgb (13.0-17.5) gm/dL Hct (39.0-53.0) % RDW (11.5-15.5) % Lymphocytes # (1.0-4.8) k/uL Sodium 136 L (137-145) mmol/L Potassium 5.3 H (3.5-5.1) mmol/L Chloride (98-107) mmol/L Carbon Dioxide 20 L (22-30) mmol/L BUN 60 H (9-20) mg/dL Creatinine 2.00 H (0.66-1.25) mg/dL Glucose 356 H (74-99) mg/dL POC Glucose (mg/dL) (75-99) mg/dL Hemoglobin A1c 11.5 H (4.0-6.0) % Plasma Lactic Acid Nehemias 3.3 H* (0.7-2.0) mmol/L 09/06/19 09/07/19 09/07/19 Range/Units 20:02 05:44 05:44 RBC 2.38 L (4.30-5.90) m/uL Hgb 7.4 L (13.0-17.5) gm/dL Hct 21.7 L (39.0-53.0) % RDW 16.6 H (11.5-15.5) % Lymphocytes # 0.3 L (1.0-4.8) k/uL Sodium (137-145) mmol/L Potassium 5.5 H (3.5-5.1) mmol/L Chloride 109 H (98-107) mmol/L Carbon Dioxide 19 L (22-30) mmol/L BUN 56 H (9-20) mg/dL Creatinine 1.80 H (0.66-1.25) mg/dL Glucose 323 H (74-99) mg/dL POC Glucose (mg/dL) 554 H (75-99) mg/dL Hemoglobin A1c (4.0-6.0) % Plasma Lactic Acid Nehemias (0.7-2.0) mmol/L 09/07/19 Range/Units 06:20 RBC (4.30-5.90) m/uL Hgb (13.0-17.5) gm/dL Hct (39.0-53.0) % RDW (11.5-15.5) % Lymphocytes # (1.0-4.8) k/uL Sodium (137-145) mmol/L Potassium (3.5-5.1) mmol/L Chloride (98-107) mmol/L Carbon Dioxide (22-30) mmol/L BUN (9-20) mg/dL Creatinine (0.66-1.25) mg/dL Glucose (74-99) mg/dL POC Glucose (mg/dL) 358 H (75-99) mg/dL Hemoglobin A1c (4.0-6.0) % Plasma Lactic Acid Nehemias (0.7-2.0) mmol/L Microbiology - Last 24 Hours (Table) 09/06/19 07:46 Blood Culture - Preliminary Blood No Growth after 24 hours Assessment and Plan Assessment: #1 acute kidney injury suspect prerenal process from osmotic diuresis with hyperglycemia and ischemic ATN with low blood pressure. 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 Baseline creatinine 1.7-1.9 MG per DL. #3 hypertension currently low normal #4 adenocarcinoma of the left lung status post lobectomy currently on carboplatinum-based chemotherapy. #5 uncontrolled diabetes with hyperglycemia #6 hyperkalemia, suspect secondary to hyperglycemia and acidosis. PVRs less than 50. Plan: #1 renal function back to baseline. Continue to hold lisinopril for now and at discharge. #2 continue with fluids for today #3 no hydronephrosis on renal ultrasound. #4 renal ultrasound for size #5 avoid nephrotoxic agents and hypotensive episodes #6 treat hyperkalemia medically if persistently more than 5.5.
--- NOTE | 2019-09-07 11:03 | P.PN ---
Subjective Progress Note Date: 09/07/19 Principal diagnosis: Chest pain and shortness of breath, acute exacerbation of COPD, mild lactic acidemia of unclear etiology On 09/07/2019 patient seen in follow-up on selective care unit, he is awake and alert, does not appear to be in any acute distress. Lung sounds reveal some scattered wheezing and still some pulmonary congestion, but no acute distress, tremors in the left hand persists, no fever or chills, patient remains on supplemental oxygen, currently at 2 L of oxygen with a pulse ox of 98%, hemodynamically stable, no tachycardia, blood culture showed no growth, lab work shows no evidence of leukocytosis, white blood cell count is 6.6, hemoglobin of 7.4, sodium is 138, potassium is 5.5, chloride is 109, CO2 is 19, B1 is 56 and creatinine is 1.80. Patient is on empiric antibiotics in the form of Augmentin, nebulized bronchodilators and oral prednisone, IV normal saline infusing at a rate of 100 ML per hour, nephrology service is following, ration is nonoliguric, renal profile has slightly improved. No nausea, vomiting or diarrhea. Objective - Vital Signs Vital signs: Vital Signs Temp 98.3 F 09/07/19 08:00 Pulse 84 09/07/19 09:18 Resp 16 09/07/19 08:00 BP 155/68 09/07/19 08:00 Pulse Ox 95 09/07/19 08:00 Intake & Output 09/06/19 09/07/19 09/07/19 19:59 06:59 18:59 Intake Total 240 Output Total 625 Balance -385 Weight Intake: Intake, IV Titration Amount Cefepime 2 gm In Sodium Chloride 0.9% 100 ml @ 200 mls/hr IVPB ONCE STA Rx#:[id number] Sodium Chloride 0.9% 2, 500 ml @ 999 mls/hr IV . Q2H31M ONE Rx#:[id number] Oral 240 Output: Urine 625 Other: Voiding Method # Voids 1 - Exam GENERAL EXAM: Alert, pleasant, 73-year-old white male, 2 L of oxygen comfortable in no apparent distress. HEAD: Normocephalic/atraumatic. EYES: Normal reaction of pupils, equal size. Conjunctiva pink, sclera white. NOSE: Clear with pink turbinates. THROAT: No erythema or exudates. NECK: No masses, no JVD, no thyroid enlargement, no adenopathy. CHEST: No chest wall deformity. Symmetrical expansion. LUNGS: Equal air entry with some scattered wheezes, and rhonchi CVS: Regular rate and rhythm, normal S1 and S2, no gallops, no murmurs, no rubs ABDOMEN: Soft, nontender. No hepatosplenomegaly, normal bowel sounds, no guarding or rigidity. EXTREMITIES: No clubbing, no edema, no cyanosis, 2+ pulses and upper and lower extremities. MUSCULOSKELETAL: Muscle strength and tone normal. SPINE: No scoliosis or deformity SKIN: No rashes CENTRAL NERVOUS SYSTEM: Alert and oriented -3. No focal deficits, tone is normal in all 4 extremities. PSYCHIATRIC: Alert and oriented -3. Appropriate affect. Intact judgment and insight. - Labs CBC & Chem 7: 09/07/19 05:44 09/07/19 05:44 Labs: Abnormal Lab Results - Last 24 Hours (Table) 09/06/19 09/06/19 09/06/19 Range/Units 12:10 14:30 17:17 RBC (4.30-5.90) m/uL Hgb (13.0-17.5) gm/dL Hct (39.0-53.0) % RDW (11.5-15.5) % Lymphocytes # (1.0-4.8) k/uL Sodium (137-145) mmol/L Potassium (3.5-5.1) mmol/L Chloride (98-107) mmol/L Carbon Dioxide (22-30) mmol/L BUN (9-20) mg/dL Creatinine (0.66-1.25) mg/dL Glucose (74-99) mg/dL POC Glucose (mg/dL) 455 H 397 H (75-99) mg/dL Hemoglobin A1c (4.0-6.0) % Plasma Lactic Acid Nehemias 2.3 H* (0.7-2.0) mmol/L 09/06/19 09/06/19 09/06/19 Range/Units 17:50 17:54 18:17 RBC (4.30-5.90) m/uL Hgb (13.0-17.5) gm/dL Hct (39.0-53.0) % RDW (11.5-15.5) % Lymphocytes # (1.0-4.8) k/uL Sodium 136 L (137-145) mmol/L Potassium 5.3 H (3.5-5.1) mmol/L Chloride (98-107) mmol/L Carbon Dioxide 20 L (22-30) mmol/L BUN 60 H (9-20) mg/dL Creatinine 2.00 H (0.66-1.25) mg/dL Glucose 356 H (74-99) mg/dL POC Glucose (mg/dL) (75-99) mg/dL Hemoglobin A1c 11.5 H (4.0-6.0) % Plasma Lactic Acid Nehemias 3.3 H* (0.7-2.0) mmol/L 09/06/19 09/07/19 09/07/19 Range/Units 20:02 05:44 05:44 RBC 2.38 L (4.30-5.90) m/uL Hgb 7.4 L (13.0-17.5) gm/dL Hct 21.7 L (39.0-53.0) % RDW 16.6 H (11.5-15.5) % Lymphocytes # 0.3 L (1.0-4.8) k/uL Sodium (137-145) mmol/L Potassium 5.5 H (3.5-5.1) mmol/L Chloride 109 H (98-107) mmol/L Carbon Dioxide 19 L (22-30) mmol/L BUN 56 H (9-20) mg/dL Creatinine 1.80 H (0.66-1.25) mg/dL Glucose 323 H (74-99) mg/dL POC Glucose (mg/dL) 554 H (75-99) mg/dL Hemoglobin A1c (4.0-6.0) % Plasma Lactic Acid Nehemias (0.7-2.0) mmol/L 09/07/19 Range/Units 06:20 RBC (4.30-5.90) m/uL Hgb (13.0-17.5) gm/dL Hct (39.0-53.0) % RDW (11.5-15.5) % Lymphocytes # (1.0-4.8) k/uL Sodium (137-145) mmol/L Potassium (3.5-5.1) mmol/L Chloride (98-107) mmol/L Carbon Dioxide (22-30) mmol/L BUN (9-20) mg/dL Creatinine (0.66-1.25) mg/dL Glucose (74-99) mg/dL POC Glucose (mg/dL) 358 H (75-99) mg/dL Hemoglobin A1c (4.0-6.0) % Plasma Lactic Acid Nehemias (0.7-2.0) mmol/L Microbiology - Last 24 Hours (Table) 09/06/19 07:46 Blood Culture - Preliminary Blood No Growth after 24 hours Assessment and Plan Plan: Assessment: #1. Chest pain, and shortness of breath most likely related to acute exacerbation of COPD #2. Mild lactic acidosis, of unclear etiology, no evidence of infection, but there is probably possibility of mild purulent tracheobronchitis #3. History of advanced mucinous adenocarcinoma, status post left upper lobectomy at [facility] #4. History of COPD, acute exacerbation #5. Coronary artery disease #6. History of CVA #7. Uncontrolled diabetes mellitus with hyperglycemia #8. History of deep venous thrombosis #9. Hyperlipidemia #10. Hypertension #11. History of myocardial infarction #12. Chronic kidney disease stage III #13. Acute kidney injury, improving Plan: We'll continue current medical treatment, oral prednisone, nebulized bronchodilators and oral antibiotics, so far blood cultures showed no growth, there have been no fever or chills, no evidence of leukocytosis on blood work, we'll treat the patient for acute exacerbation of COPD and mild tracheobronchitis. Denies any fever or chills, no tachycardia, blood pressure is stable, no nausea vomiting diarrhea no complaints of abdominal pain. I performed a history & physical examination of the patient and discussed their management with my nurse practitioner, Ada Fraser. I reviewed the nurse practitioner's note and agree with the documented findings and plan of care. Lung sounds are positive for diffuse wheezes throughout the lung wright. The findings and the impression was discussed with the patient. I attest to the documentation by the nurse practitioner. Time with Patient: Less than 30
[2019-09-07 12:01] VITALS: BMI 26.3
--- NOTE | 2019-09-07 12:18 | P.CRDCN ---
History of Present Illness Consult date: 09/07/19 Consult reason: chest pain History of present illness: This is a pleasant 73-year-old male patient of Dr. Chacon past medical history significant for lung cancer status post left lobe resection, multivessel coronary artery disease, hypertension, DVT on long-term anticoagulation with Xarelto, diabetes mellitus and COPD. patient has completed a second cycle of chemotherapy of carboplatin, Alimta and keytruda on August 15. Patient c omplains of feeling a tightness in the left side of his chest when he gets up to that use restroom. This occurred at home and continues to happen here in the hospital. He states for the time he gets back to his that he needs to rest the pain will go away. At home he was having tightness in his chest when he got up to the restroom and came back to his room ended up taking 2 nebulizer treatments without any improvement and he contacted his family to bring him in to the hospital. At the time of this evaluation, patient is pain-free. He underwent cardiac catheterization performed August 2018 revealed mid LAD 50% FFR performed was 95%, proximal circumflex 40%, proximal OM 70%, mid RCA 100% is a small non-dominant vessel and proximal PLB 60%. Echocardiogram reveals EF of 50-55% with mild concentric left ventricular hypertrophy, valves were not well visualized. EKG reveals sinus mechanism with artifact, nonspecific ST abnormality, probable left ventricular hypertrophy. No acute changes. Chest x-ray is negative for an acute cardiopulmonary process with evidence of a right upper lobe and sitting and mediastinal adenopathy consistent with malignancy. Left lower lobe infiltrate unchanged. No change from previous. No heart failure.. Laboratory data reviewed: WBC 5.9, hemoglobin 7.9, platelets 197, sodium 136, potassium 5.5, creatinine 2.4, magnesium 1.5, and cardiac enzymes negative 1. Home cardiac medications include Lasix 40 mg twice daily, Imdur 20 mg daily, Xarelto 20 mg daily, amlodipine 10 mg daily and lisinopril 40 mg daily. At the time of my exam: CONSTITUTIONAL: Denies fever. Denies chills. EYES: Denies blurred vision. Denies vision changes. Denies eye pain. EARS, NOSE, MOUTH & THROAT: Denies headache. Denies sore throat. Denies ear pain. CARDIOVASCULAR: Denies chest pain. Complains of shortness of breath. Denies orthopnea. Denies PND. Denies palpitations. RESPIRATORY: Complains of cough. GASTROINTESTINAL: Denies abdominal pain. Denies diarrhea. Denies constipation. Denies nausea. Denies vomiting. MUSCULOSKELETAL: Denies myalgias. INTEGUMENTARY: Denies pruitis. Denies rash. NEUROLOGIC: Denies numbness. Denies tingling. Denies weakness. PSYCHIATRIC: Denies anxiety. Denies depression. ENDOCRINE: Denies fatigue. Denies weight change. Denies polydipsia. Denies polyurina. GENITOURINARY: Denies burning, hematuria or urgency with micturation. HEMATOLOGIC: Denies history of anemia. Denies bleeding. Blood pressure 115/55 heart rate 93 afebrile, pulse ox 98% on 2 L nasal cannula GENERAL: This is a 73-year-old male in no apparent distress at the time of my examination. HEENT: Head is atraumatic, normocephalic. Pupils are equal, round. Sclerae anicteric. Conjunctivae are clear. Mucous membranes of the mouth are moist. Neck is supple. There is no jugular venous distention. No carotid bruit is heard. LUNGS: Scattered expiratory wheeze. No chest wall tenderness is noted on palpation or with deep breathing. HEART: Regular rate and rhythm without murmurs, rubs or gallops. S1 and S2 heard. ABDOMEN: Soft, nontender. Bowel sounds are heard. No organomegaly noted. EXTREMITIES: no lower extremity pitting edema and no calf tenderness noted. VASCULAR: Radial and dorsalis pedis pulses palpated, no evidence of clubbing. NEUROLOGIC: Patient is awake, alert and oriented x3. ASSESSMENT Chest pain with exertion possibly related to anemia Acute kidney injury with hyperkalemia COPD History of lung cancer s/p resection and chemotherapy History of multi-vessel coronary artery disease Hypertension Diabetes mellitus Recent DVT after lung resection on alf anti-coagulation Chronic kidney disease, GFR 46 PLAN Agree with holding lisinopril Continue Norvasc, Lasix, Imdur and simvastatin Transfuse 1 unit of packed RBCs if okay with Dr. Kent Start Metoprolol tartrate 25 mg 3 times daily Decreased Xarelto to 15 mg daily Further recommendations to follow based upon clinical course Thank you kindly for this consultation. Nurse Practitioner note has been reviewed, I agree with a documented findings and plan of care. Patient was seen and examined. Past Medical History Past Medical History: Coronary Artery Disease (CAD), Cancer, COPD, CVA/TIA, Diabetes Mellitus, Deep Vein Thrombosis (DVT), Hyperlipidemia, Hypertension, Myocardial Infarction ([place]), Osteoarthritis (OA), Pneumonia, Prostate Disorder, Seizure Disorder Additional Past Medical History / Comment(s): COPD, DM-2 BPH, SKY lesion measuring 1.9 x 1.6 cm in size and not showing any metabolic activity, chronic neck/back pain, BPH, TIA & seizure following lung biopsy, HERMELINDO Last Myocardial Infarction Date:: 05/24/12 History of Any Multi-Drug Resistant Organisms: None Reported Past Surgical History: Back Surgery, Cholecystectomy, Heart Catheterization, Hernia Repair, Tonsillectomy Additional Past Surgical History / Comment(s): 2011 cardiac cath - treated medically, lower back surgery, bilateral cataract removal, abdominal hernia repair, bronchoscopy. SKY lobe removed.(L) lung thorocotomy 2018. lung biopsy. R lung Wedge biopsy completed 07/23/19. Past Anesthesia/Blood Transfusion Reactions: Previous Problems w/ Anesthesia Additional Past Anesthesia/Blood Transfusion Reaction / Comment(s): Seizure and mini stroke following lung biopsy Past Psychological History: Anxiety, Depression Additional Psychological History / Comment(s): Pt. denies anxiety at this time. Pt. does drive. Does not have home care services or walker/cane. No home O2. Smoking Status: Former smoker Past Alcohol Use History: None Reported Additional Past Alcohol Use History / Comment(s): Pt started smoking in 1960 and quit in 1995. He was a 2ppd smoker. Past Drug Use History: None Reported - Past Family History Mother Family Medical History: No Reported History Father Family Medical History: Diabetes Mellitus Additional Family Medical History / Comment(s): Father of diabetes at the age of 83 yrs. Medications and Allergies Home Medications Medication Instructions Recorded Confirmed Type Rivaroxaban [Xarelto] 20 mg PO DAILY 08/31/18 09/06/19 History Insulin Detemir [Levemir Flextouch] 72 units SQ HS 11/13/18 09/06/19 History Furosemide [Lasix] 40 mg PO BID 07/30/19 09/06/19 History Ipratropium-Albuterol Nebulize 3 ml INHALATION RT-TID PRN 07/30/19 09/06/19 History [Duoneb 0.5 mg-3 mg/3 ml Soln] Isosorbide Mononitrate 20 mg PO DAILY 07/30/19 09/06/19 History Lisinopril 40 mg PO DAILY 07/30/19 09/06/19 History Simvastatin [Zocor] 40 mg PO DAILY 07/30/19 09/06/19 History amLODIPine [Norvasc] 10 mg PO DAILY 07/30/19 09/06/19 History levETIRAcetam [Keppra] 500 mg PO BID 07/30/19 09/06/19 History Folic Acid 1 mg PO DAILY 09/06/19 09/06/19 History INSULIN ASPART (NovoLOG) [NovoLOG See Protocol SQ ACHS PRN 09/06/19 09/06/19 History (formulary)] Allergies Allergy/AdvReac Type Severity Reaction Status Date / Time No Known Allergies Allergy Verified 09/06/19 08:15 Physical Exam Vitals: Vital Signs Temp Pulse Pulse Resp BP Pulse Ox 09/07/19 03:53 97.6 F 93 18 115/55 98 09/06/19 23:25 98.4 F 92 17 117/60 98 09/06/19 20:48 87 09/06/19 20:37 87 09/06/19 20:00 98.2 F 92 18 149/63 97 09/06/19 16:45 98.4 F 83 18 118/53 100 09/06/19 16:09 80 09/06/19 16:00 80 99 09/06/19 11:05 97.6 F 88 18 119/60 100 09/06/19 10:06 92 09/06/19 09:55 100 Intake and Output 09/06/19 09/07/19 09/07/19 23:59 06:59 14:59 Intake Total Output Total Balance Intake: Oral Output: Urine Other: Voiding Method # Voids Weight Results 09/07/19 05:44 09/07/19 05:44 CBC 09/07/19 Range/Units 05:44 WBC 6.6 (3.8-10.6) k/uL RBC 2.38 L (4.30-5.90) m/uL Hgb 7.4 L (13.0-17.5) gm/dL Hct 21.7 L (39.0-53.0) % Plt Count 206 (150-450) k/uL Comprehensive Metabolic Panel 09/06/19 09/07/19 Range/Units 17:50 05:44 Sodium 136 L 138 (137-145) mmol/L Potassium 5.3 H 5.5 H (3.5-5.1) mmol/L Chloride 107 109 H (98-107) mmol/L Carbon Dioxide 20 L 19 L (22-30) mmol/L BUN 60 H 56 H (9-20) mg/dL Creatinine 2.00 H 1.80 H (0.66-1.25) mg/dL Glucose 356 H 323 H (74-99) mg/dL Calcium 8.7 8.7 (8.4-10.2) mg/dL Current Medications Generic Name Dose Route Start Last Admin Trade Name Freq PRN Reason Stop Dose Admin Albuterol/Ipratropium 3 ml 09/06/19 13:07 Duoneb 0.5 Mg-3 Mg/3 Ml Soln INHALATION RT-QID PRN Shortness Of Breath Or Wheezing Albuterol/Ipratropium 3 ml 09/06/19 16:00 09/06/19 20:36 Duoneb 0.5 Mg-3 Mg/3 Ml Soln INHALATION 3 ml RT-QID NI Administration Amlodipine Besylate 10 mg 09/06/19 09:00 09/06/19 09:11 Norvasc PO 10 mg DAILY NI Administration Amoxicillin/Clavulanate Potassium 1 each 09/06/19 21:00 09/06/19 20:33 Augmentin 875-125 PO 1 each Q12HR NI Administration Atorvastatin Calcium 20 mg 09/06/19 09:00 09/06/19 09:11 Lipitor PO 20 mg DAILY NI Administration Budesonide/Formoterol Fumarate 2 puff 09/06/19 20:00 09/06/19 20:41 Symbicort 160-4.5 Mcg Inhaler INHALATION 2 puff RT-BID NI Administration Famotidine 20 mg 09/06/19 09:00 09/06/19 09:11 Pepcid IV 20 mg DAILY NI Administration Folic Acid 1 mg 09/07/19 09:00 Folic Acid PO DAILY NI Sodium Chloride 1,000 mls @ 100 mls/hr 09/06/19 14:00 09/07/19 06:24 Saline 0.9% IV Not Given .Q10H [facility] Insulin Aspart 0 unit 09/06/19 07:45 09/07/19 06:28 Novolog SQ 6 unit ACHS [facility] Administration Protocol Insulin Detemir 80 unit 09/06/19 21:00 09/06/19 20:35 Levemir SQ 80 unit HS [facility] Administration Isosorbide Mononitrate 20 mg 09/06/19 09:00 09/06/19 11:38 Ismo PO 20 mg DAILY [facility] Administration Levetiracetam 500 mg 09/06/19 09:00 09/06/19 20:33 Keppra PO 500 mg BID [facility] Administration Prednisone 40 mg 09/06/19 13:15 09/06/19 14:44 PO 40 mg DAILY [facility] Administration Rivaroxaban 20 mg 09/06/19 09:00 09/06/19 09:11 Xarelto PO 20 mg DAILY [facility] Administration Sodium Bicarbonate 650 mg 09/06/19 16:00 09/06/19 20:33 Sodium Bicarbonate Tab PO 650 mg TID [facility] Administration Intake and Output 09/06/19 09/07/19 09/07/19 23:59 06:59 14:59 Intake Total Output Total Balance Intake: Oral Output: Urine Other: Voiding Method # Voids Weight 09/07/19 05:44 09/07/19 05:44
[2019-09-07 12:41] LABS: Glucose,Whole Blood 311 mg/dL (75-99)
[2019-09-07] MEDS ORDERED: SODIUM POLYSTYRENE SULFONATE 15 GM/60 ML BOTTLE PO STA (13:17)
--- NOTE | 2019-09-07 15:50 | P.PN ---
Subjective Progress Note Date: 09/07/19 Principal diagnosis: Chest pain with dyspnea Acute exacerbation COPD Acute renal injury/ chronic kidney disease stage III; creatinine is 1.7-1.9 at baseline Hyperglycemia secondary to steroid therapy Anemia due to chemotherapy; status post transfusion with 1 unit of packed RBCs Lungs CA; on chemotherapy 09/07/2019 patient is seen and evaluated in room at bedside, he is awake and alert, does not appear to be in any acute distress. Patient does seem to be somewhat discouraged due to repeated episodes of hospitalization after each course of chemotherapy Lung sounds reveal some scattered wheezing and still some pulmonary congestion, but no acute distress, tremors in the left hand persists, no fever or chills, patient remains on supplemental oxygen, currently at 2 L of oxygen with a pulse ox of 98%, blood culture showed no growth, lab work shows no evidence of leukocytosis, white blood cell count is 6.6, hemoglobin of 7.4, sodium is 138, potassium is 5.5, chloride is 109, CO2 is 19, B1 is 56 and creatinine is 1.80. Patient is on empiric antibiotics in the form of Augmentin, nebulized bronchodilators and oral prednisone, IV normal saline infusing at a rate of 100 ML per hour, nephrology service is following, ration is nonoliguric, renal profile has slightly impro artemio. No nausea, vomiting or diarrhea. Cardiology is recommending to transfuse 1 unit of packed RBCs to keep hemoglobin above 8 Nephrology is following for acute renal injury from osmotic diuresis with hyperglycemia and ischemic ATN with hypotension; nephrology recommending to continue with IV fluids for another 24 hours; lisinopril is on hold and is recommended to be discontinued at time of discharge; renal ultrasound shows no hydronephrosis Patient remains markedly hyper glycemic due to steroid therapy; we will continue with high-intensity insulin sliding scale and increase Levemir to 80 units subcu daily at bedtime and 20 units subcu every morning Objective - Vital Signs Vital signs: Vital Signs Temp 98.3 F 09/07/19 08:00 Pulse 84 09/07/19 13:03 Resp 16 09/07/19 11:35 BP 133/60 09/07/19 11:35 Pulse Ox 99 09/07/19 11:35 Intake & Output 09/06/19 09/07/19 09/07/19 19:59 06:59 18:59 Intake Total 480 Output Total 625 Balance -145 Weight 90.5 kg Intake: Intake, IV Titration Amount Cefepime 2 gm In Sodium Chloride 0.9% 100 ml @ 200 mls/hr IVPB ONCE STA Rx#:[id number] Sodium Chloride 0.9% 2, 500 ml @ 999 mls/hr IV . Q2H31M ONE Rx#:[id number] Oral 480 Output: Urine 625 Other: Voiding Method # Voids 1 - Exam - Constitutional General appearance: Present: average body habitus, cooperative, no acute distress - EENT Eyes: Present: anicteric sclerae, EOMI, PERRLA, normal appearance ENT: Present: hearing grossly normal, normal oropharynx Ears: bilateral: normal - Neck Neck: Present: normal ROM. Absent: lymphadenopathy, rigidity, thyromegaly Carotids: negative: bruit present Thyroid: bilateral: normal size, negative: enlarged, nodule - Respiratory Respiratory: bilateral: CTA, negative: rales, rhonchi, wheezing - Cardiovascular Rhythm: regular Heart sounds: normal: S1, S2 Abnormal Heart Sounds: Absent: systolic murmur, diastolic murmur - Gastrointestinal General gastrointestinal: Present: normal bowel sounds, soft. Absent: distended, organomegaly, tenderness - Genitourinary Genitourinary Comment(s): deferred - Integumentary Integumentary: Present: normal turgor. Absent: jaundiced, rash, ulcer - Neurologic Neurologic: Present: CNII-XII intact. Absent: focal deficits - Musculoskeletal Musculoskeletal: Present: gait normal, strength equal bilaterally - Psychiatric Psychiatric: Present: A&O x's 3, appropriate affect, intact judgment & insight - Labs CBC & Chem 7: 09/07/19 05:44 09/07/19 05:44 Labs: Abnormal Lab Results - Last 24 Hours (Table) 09/06/19 09/06/19 09/06/19 Range/Units 14:30 17:17 17:50 RBC (4.30-5.90) m/uL Hgb (13.0-17.5) gm/dL Hct (39.0-53.0) % RDW (11.5-15.5) % Lymphocytes # (1.0-4.8) k/uL Sodium 136 L (137-145) mmol/L Potassium 5.3 H (3.5-5.1) mmol/L Chloride (98-107) mmol/L Carbon Dioxide 20 L (22-30) mmol/L BUN 60 H (9-20) mg/dL Creatinine 2.00 H (0.66-1.25) mg/dL Glucose 356 H (74-99) mg/dL POC Glucose (mg/dL) 397 H (75-99) mg/dL Hemoglobin A1c (4.0-6.0) % Plasma Lactic Acid Nehemias 2.3 H* (0.7-2.0) mmol/L Crossmatch 09/06/19 09/06/19 09/06/19 Range/Units 17:54 18:17 20:02 RBC (4.30-5.90) m/uL Hgb (13.0-17.5) gm/dL Hct (39.0-53.0) % RDW (11.5-15.5) % Lymphocytes # (1.0-4.8) k/uL Sodium (137-145) mmol/L Potassium (3.5-5.1) mmol/L Chloride (98-107) mmol/L Carbon Dioxide (22-30) mmol/L BUN (9-20) mg/dL Creatinine (0.66-1.25) mg/dL Glucose (74-99) mg/dL POC Glucose (mg/dL) 554 H (75-99) mg/dL Hemoglobin A1c 11.5 H (4.0-6.0) % Plasma Lactic Acid Nehemias 3.3 H* (0.7-2.0) mmol/L Crossmatch 09/07/19 09/07/19 09/07/19 Range/Units 05:44 05:44 06:20 RBC 2.38 L (4.30-5.90) m/uL Hgb 7.4 L (13.0-17.5) gm/dL Hct 21.7 L (39.0-53.0) % RDW 16.6 H (11.5-15.5) % Lymphocytes # 0.3 L (1.0-4.8) k/uL Sodium (137-145) mmol/L Potassium 5.5 H (3.5-5.1) mmol/L Chloride 109 H (98-107) mmol/L Carbon Dioxide 19 L (22-30) mmol/L BUN 56 H (9-20) mg/dL Creatinine 1.80 H (0.66-1.25) mg/dL Glucose 323 H (74-99) mg/dL POC Glucose (mg/dL) 358 H (75-99) mg/dL Hemoglobin A1c (4.0-6.0) % Plasma Lactic Acid [place] (0.7-2.0) mmol/L Crossmatch 09/07/19 09/07/19 Range/Units 10:53 12:15 RBC (4.30-5.90) m/uL Hgb (13.0-17.5) gm/dL Hct (39.0-53.0) % RDW (11.5-15.5) % Lymphocytes # (1.0-4.8) k/uL Sodium (137-145) mmol/L Potassium (3.5-5.1) mmol/L Chloride (98-107) mmol/L Carbon Dioxide (22-30) mmol/L BUN (9-20) mg/dL Creatinine (0.66-1.25) mg/dL Glucose (74-99) mg/dL POC Glucose (mg/dL) 311 H (75-99) mg/dL Hemoglobin A1c (4.0-6.0) % Plasma Lactic Acid Nehemias (0.7-2.0) mmol/L Crossmatch See Detail Microbiology - Last 24 Hours (Table) 09/06/19 07:46 Blood Culture - Preliminary Blood No Growth after 24 hours Assessment and Plan Assessment: 1. Chest pain; we will consult cardiology for evaluation - Etiology unclear; I will order a d-dimer and a CTA chest if d-dimer is elevated - Patient is currently asymptomatic and not hypoxic; we will continue to monitor 2. Acute renal failure; not sure of patient's underlying renal function - We will start patient on IV fluids normal saline at rate of 100 mL an hour; we will monitor strict YUNG's, daily weights, renal function and electrolytes - We will avoid nephrotoxic medications and hypotension 4. Hyperglycemia/ Diabetes mellitus type 1 - We will reorder home dose of Levemir at 80 units subcu daily at bedtime; we will monitor Accu-Cheks every before meals and at bedtime with insulin sliding scale 5. Hyperkalemia; possibly secondary to 2 - We'll proceed with IV fluid hydration and monitor electrolytes closely; we will treat hyperkalemia blood protocol if remains elevated despite IV fluid hydration and improvement in renal function 6. Lactic acidosis; no signs of infection - Lactic acid has trended down to 2.6; we will continue with IV fluid and monitor lactic acid levels closely; we will initiate sepsis workup if lactic acid continues to trend up 7. Hypertension; patient takes lisinopril 40 mg daily; we will hold lisinopril due to worsening renal function; continue with amlodipine 10 mg daily along with Isordil 20 mg daily 8. Hyperlipidemia; continue with home statin therapy 9. Seizure disorder; Keppra 500 mg twice a day 10. DVT prophylaxis; systemic anticoagulation with Xarelto CODE STATUS; full code Time with Patient: Greater than 30
[2019-09-07 17:12] LABS: Glucose,Whole Blood 337 mg/dL (75-99)
[2019-09-07 20:17] LABS: Glucose,Whole Blood 405 mg/dL (75-99)
[2019-09-07] MEDS: INSULIN DETEMIR (LEVEMIR) 100 UNIT/ML SYR SQ SCH (21:18)
[2019-09-08] MEDS: SODIUM CHLORIDE 0.9% 1,000 ML IV SCH ×2 (05:17→12:22)
[2019-09-08 06:23] LABS: Glucose,Whole Blood 257 mg/dL (75-99)
[2019-09-08] MEDS: INSULIN DETEMIR (LEVEMIR) 100 UNIT/ML SYR SQ SCH (06:35)
[2019-09-08] MEDS: INSULIN ASPART (NovoLOG) 100 UNIT/ML VIAL SQ SCH ×4 (06:35→21:55)
[2019-09-08 07:00] LABS: Anisocytosis Slight; HCT 24.5 % (39.0-53.0); HGB 8.3 gm/dL (13.0-17.5); MCH 30.6 pg (25.0-35.0); MCV 89.9 fL (80.0-100.0); Mean Platelet Volume 6.3; Platelet Count 231 k/uL (150-450); RBC 2.73 m/uL (4.30-5.90); RDW 16.3 % (11.5-15.5); WBC 7.3 k/uL (3.8-10.6)
[2019-09-08 07:11] LABS: Calcium 9.3 mg/dL (8.4-10.2); Potassium 5.5 mmol/L (3.5-5.1)
[2019-09-08] MEDS: IPRATROPIUM-ALBUTEROL 3 ML NEB INHALATION SCH ×4 (07:27→20:04)
[2019-09-08] MEDS: SYMBICORT 160-4.5 MCG INHALER INHALATION SCH ×2 (07:27→20:04)
[2019-09-08] MEDS: METOPROLOL TARTRATE 25 MG TAB PO SCH (08:39)
[2019-09-08] MEDS: AMOXIC-POT CLAV 875-125MG 1 EACH TAB PO SCH ×2 (08:39→21:54)
[2019-09-08] MEDS: predniSONE 20 MG TAB PO SCH (08:39)
[2019-09-08] MEDS: ISOSORBIDE MONONITRATE 20 MG TAB PO SCH (08:39)
[2019-09-08] MEDS: FOLIC ACID 1 MG TAB PO SCH (08:39)
[2019-09-08] MEDS: SODIUM BICARBONATE TAB 650 MG TAB PO SCH ×3 (08:39→21:55)
[2019-09-08] MEDS: RIVAROXABAN 15 MG TAB PO SCH (08:40)
[2019-09-08] MEDS: levETIRAcetam 500 MG TAB PO SCH ×2 (08:40→21:54)
[2019-09-08] MEDS: amLODIPine 10 MG TAB PO SCH (08:40)
[2019-09-08] MEDS: ATORVASTATIN 20 MG TAB PO SCH (08:40)
[2019-09-08] MEDS: FAMOTIDINE 20 MG/2 ML VIAL IV SCH (08:40)
[2019-09-08] MEDS ORDERED: SODIUM POLYSTYRENE SULFONATE 15 GM/60 ML BOTTLE PO STA (08:48)
--- NOTE | 2019-09-08 08:54 | P.PN ---
Subjective This is a pleasant 73 years old male with past medical history of coronary artery disease, COPD, CVA/TIA, diabetes mellitus, deep venous thrombosis, hyperlipidemia, hypertension, osteoarthritis, seizure disorder, benign prostatic hypertrophy, left upper lobe lung mass, recently diagnosed lung cancer who has been started on chemotherapy, and has received second course of therapy, patient underwent left upper lobe lobectomy and mediastinal node dissection on 07/23/2018 at [facility] and the pathology revealed adenocarcinoma. He got chemotherapy on 09/24/2019 . Patient presents because of left-sided chest pain about 10/10 in severity, patient feels better today and his chest pain down to 7/10. He still have some dyspnea. Patient is being followed closely by many consultants Coumadin pulmonary, nephrology and industrial economist/oncology. Patient currently on Augmentin, prednisone 40 mg daily, xarelto , no IV fluids as been eating and drinking. His creatinine was at baseline of 1.8, today even better at 1.6, potassium 5.5, sugar is better controlled to 248-257. Hemoglobin is 8.3. During this admission was started on metoprolol 25, 3 times a day, don't to switch it to Inderal twice a day because patient wants to treat his tremor His chronic potassium elevation, today's 5.5. Given 1 dose of potassium replaced and low potassium diet Discussed with staff Review of systems CONSTITUTIONAL: No fever, no malaise, no fatigue. HEENT: No recent visual problems or hearing problems. Denied any sore throat. CARDIOVASCULAR: No orthopnea, PND, no palpitations, no syncope. PULMONARY: , no hemoptysis. GASTROINTESTINAL:Normoactive bowel sounds. NEUROLOGICAL: No headaches, no weakness, no numbness. HEMATOLOGICAL: Denies any bleeding or petechiae. GENITOURINARY: Denies any burning micturition, frequency, or urgency. MUSCULOSKELETAL/RHEUMATOLOGICAL: Denies any joint pain, swelling, or any muscle pain. ENDOCRINE: Denies any polyuria or polydipsia. Active Medications Generic Name Dose Route Start Last Admin Trade Name Freq PRN Reason Stop Dose Admin Albuterol/Ipratropium 3 ml 09/06/19 13:07 Duoneb 0.5 Mg-3 Mg/3 Ml Soln INHALATION RT-QID PRN Shortness Of Breath Or Wheezing Albuterol/Ipratropium 3 ml 09/06/19 16:00 09/08/19 07:27 Duoneb 0.5 Mg-3 Mg/3 Ml Soln INHALATION 3 ml RT-QID NI Administration Amlodipine Besylate 10 mg 09/06/19 09:00 09/08/19 08:40 Norvasc PO 10 mg DAILY NI Administration Amoxicillin/Clavulanate Potassium 1 each 09/06/19 21:00 09/08/19 08:39 Augmentin 875-125 PO 1 each Q12HR NI Administration Atorvastatin Calcium 20 mg 09/06/19 09:00 09/08/19 08:40 Lipitor PO 20 mg DAILY NI Administration Budesonide/Formoterol Fumarate 2 puff 09/06/19 20:00 09/08/19 07:27 Symbicort 160-4.5 Mcg Inhaler INHALATION 2 puff RT-BID NI Administration Diphenhydramine HCl 25 mg 09/08/19 08:47 Benadryl PO HS PRN Insomnia Famotidine 20 mg 09/06/19 09:00 09/08/19 08:40 Pepcid IV 20 mg DAILY NI Administration Folic Acid 1 mg 09/07/19 09:00 09/08/19 08:39 Folic Acid PO 1 mg DAILY NI Administration Insulin Aspart 0 unit 09/06/19 07:45 09/08/19 06:35 Novolog SQ 4 unit ACHS [facility] Administration Protocol Insulin Detemir 80 unit 09/06/19 21:00 09/07/19 21:18 Levemir SQ 80 unit HS [facility] Administration Insulin Detemir 20 unit 09/08/19 07:00 09/08/19 06:35 Levemir SQ 20 unit DAILY@0700 NI Administration Isosorbide Mononitrate 20 mg 09/06/19 09:00 09/08/19 08:39 Ismo PO 20 mg DAILY NI Administration Levetiracetam 500 mg 09/06/19 09:00 09/08/19 08:40 Keppra PO 500 mg BID NI Administration Prednisone 40 mg 09/06/19 13:15 09/08/19 08:39 PO 40 mg DAILY NI Administration Propranolol HCl 20 mg 09/08/19 21:00 Inderal PO BID [facility] Rivaroxaban 15 mg 09/08/19 09:00 09/08/19 08:40 Xarelto PO 15 mg DAILY NI Administration Sodium Bicarbonate 650 mg 09/06/19 16:00 09/08/19 08:39 Sodium Bicarbonate Tab PO 650 mg TID NI Administration Sodium Polystyrene Sulfonate 15 gm 09/08/19 08:48 Kayexalate PO 09/08/19 08:49 ONCE STA Objective - Vital Signs Vital signs: Vital Signs Temp 97.9 F 09/08/19 08:00 Pulse 69 09/08/19 08:00 Resp 16 09/08/19 08:00 BP 133/65 09/08/19 08:00 Pulse Ox 97 09/08/19 08:00 Intake & Output 09/07/19 09/08/19 09/08/19 18:59 06:59 18:59 Intake Total 1830 240 Output Total 625 1415 Balance 1205 -1415 240 Weight 90.5 kg 90.4 kg Intake: Intake, IV Titration 800 Amount Sodium Chloride 0.9% 1, 800 000 ml @ 100 mls/hr IV . Q10H [facility] Rx#:[id number] Oral 720 240 Blood Product 310 Rc Pheresis As-3 Unit 310 [id number] Output: Urine 625 1415 Other: Voiding Method Toilet Urinal # Voids 2 1 - Exam -GENERAL: The patient is alert and oriented x3, not in any acute distress. Generally weak HEENT: Pupils are round and equally reacting to light. EOMI. No scleral icterus. No conjunctival pallor. Normocephalic, atraumatic. No pharyngeal erythema. No thyromegaly. CARDIOVASCULAR: S1 and S2 present. No murmurs, rubs, or gallops. -PULMONARY: Chest is clear to auscultation, scattered wheezing bilaterally ABDOMEN: Soft, nontender, nondistended, normoactive bowel sounds. No palpable organomegaly. MUSCULOSKELETAL: No joint swelling or deformity. EXTREMITIES: No cyanosis, clubbing, or pedal edema. NEUROLOGICAL: Gross neurological examination did not reveal any focal deficits. SKIN: No rashes. no petechiae. - Labs CBC & Chem 7: 09/08/19 05:59 09/08/19 05:59 Labs: Abnormal Lab Results - Last 24 Hours (Table) 09/07/19 09/07/19 09/07/19 Range/Units 10:53 12:15 17:07 RBC (4.30-5.90) m/uL Hgb (13.0-17.5) gm/dL Hct (39.0-53.0) % RDW (11.5-15.5) % Potassium (3.5-5.1) mmol/L Chloride (98-107) mmol/L BUN (9-20) mg/dL Creatinine (0.66-1.25) mg/dL Glucose (74-99) mg/dL POC Glucose (mg/dL) 311 H 337 H (75-99) mg/dL Crossmatch See Detail 09/07/19 09/08/19 09/08/19 Range/Units 20:15 05:59 05:59 RBC 2.73 L (4.30-5.90) m/uL Hgb 8.3 L (13.0-17.5) gm/dL Hct 24.5 L (39.0-53.0) % RDW 16.3 H (11.5-15.5) % Potassium 5.5 H (3.5-5.1) mmol/L Chloride 109 H (98-107) mmol/L BUN 52 H (9-20) mg/dL Creatinine 1.65 H (0.66-1.25) mg/dL Glucose 240 H (74-99) mg/dL POC Glucose (mg/dL) 405 H (75-99) mg/dL Crossmatch 09/08/19 Range/Units 06:20 RBC (4.30-5.90) m/uL Hgb (13.0-17.5) gm/dL Hct (39.0-53.0) % RDW (11.5-15.5) % Potassium (3.5-5.1) mmol/L Chloride (98-107) mmol/L BUN (9-20) mg/dL Creatinine (0.66-1.25) mg/dL Glucose (74-99) mg/dL POC Glucose (mg/dL) 257 H (75-99) mg/dL Crossmatch Microbiology - Last 24 Hours (Table) 09/06/19 07:46 Blood Culture - Preliminary Blood No Growth after 24 hours Assessment and Plan Assessment: Chest pain. Cardiology evaluated the patient. Acute kidney injury on the top of chronic kidney disease, improved, baseline creatinine 1.7-1.9 Diabetes mellitus with hyperglycemia Chronic hyperkalemia Elevated lactic acid, came back to normal at 1.9 Hypertension Hyperlipidemia 6 chronic seizure disorder on Keppra History of adeno cancer of the lung status post left upper lobectomy Plan: This is a pleasant 74 years old male who presents because of chest pain. Cardiology evaluation is appreciated and follow their recommendation. Switch his metoprolol to develop because of his tumor. Continue with xarelto , give 1 dose of Kayexalate and follow-up potassium level. Continue with her mentation and 40 mg of prednisone orally. Continue with gentle hydration. We'll ask for physical therapy evaluation . Continue same treatment. Continue with symptomatic treatment. Resume home medication. Monitor lytes and vitals. DVT and GI prophylaxis. Further recommendations of the clinical course of the patient DVT prophylaxis: Xarelto GI Prophylaxis: Pepcid PT/OT: Pending Prognosis is guarded
[2019-09-08] MEDS ORDERED: ACETAMINOPHEN TAB 325 MG TAB PO PRN (11:30)
[2019-09-08 12:13] LABS: Glucose,Whole Blood 200 mg/dL (75-99)
[2019-09-08 12:36] LABS: Glucose,Whole Blood 205 mg/dL (75-99)
--- NOTE | 2019-09-08 14:26 | P.PN ---
Subjective Progress Note Date: 09/08/19 This is a pleasant 73-year-old male patient of Dr. Chacon past medical history significant for lung cancer status post left lobe resection, multivessel coronary artery disease, hypertension, DVT on long-term anticoagulation with Xarelto, diabetes mellitus and COPD. patient has completed a second cycle of chemotherapy of carboplatin, Alimta and keytruda on August 15, he presented to the hospital with symptoms of chest discomfort, at home he apparently had taken some nebulizer treatments to try to relieve the symptoms. Patient did have a cardiac catheterization performed in August 2018 which revealed an occluded chronically occluded nondominant RCA, severe diffuse disease in a small second obtuse marginal branch with moderate disease in the proximal and distal circumflex. Moderate disease in the proximal LAD which was non-hemodynamically significant by FFR. Hemoglobin on admission 7.9, 8.3 this morning. Sodium 140, potassium 5.5, BUN 52 and creatinine 1.6. Blood pressure this morning 113/60, heart rate in the 70s. Upon review of the patient's of prior hemoglobins, it appears that the patient has been low since October 2018 with a hemoglobin at that time of 8. He had been taking xarelto 20 mg daily which was decreased by Dr. Sonia Barger to 15 mg daily. Objective - Vital Signs Vital signs: Vital Signs Temp 97.9 F 09/08/19 08:00 Pulse 61 09/08/19 11:44 Resp 16 09/08/19 11:44 BP 113/62 09/08/19 11:44 Pulse Ox 97 09/08/19 11:44 Intake & Output 09/07/19 09/08/19 09/08/19 18:59 06:59 18:59 Intake Total 1830 480 Output Total 625 1415 Balance 1205 -1415 480 Weight 90.5 kg 90.4 kg Intake: Intake, IV Titration 800 Amount Sodium Chloride 0.9% 1, 800 000 ml @ 100 mls/hr IV . Q10H ON LICENSE OF [facility] Rx#:[id number] Oral 720 480 Blood Product 310 Rc Pheresis As-3 Unit 310 [id number] Output: Urine 625 1415 Other: Voiding Method Toilet Urinal # Voids 2 1 - Exam GENERAL: This is a 73-year-old male in no apparent distress at the time of my examination. HEENT: Head is atraumatic, normocephalic. Pupils are equal, round. Sclerae anicteric. Conjunctivae are clear. Mucous membranes of the mouth are moist. Neck is supple. There is no jugular venous distention. No carotid bruit is heard. LUNGS: Scattered expiratory wheeze. No chest wall tenderness is noted on palpation or with deep breathing. HEART: Regular rate and rhythm without murmurs, rubs or gallops. S1 and S2 heard. ABDOMEN: Soft, nontender. Bowel sounds are heard. No organomegaly noted. EXTREMITIES: no lower extremity pitting edema and no calf tenderness noted. VASCULAR: Radial and dorsalis pedis pulses palpated, no evidence of clubbing. NEUROLOGIC: Patient is awake, alert and oriented x3. - Labs CBC & Chem 7: 09/08/19 05:59 09/08/19 05:59 Labs: Abnormal Lab Results - Last 24 Hours (Table) 09/07/19 09/07/19 09/07/19 Range/Units 10:53 17:07 20:15 RBC (4.30-5.90) m/uL Hgb (13.0-17.5) gm/dL Hct (39.0-53.0) % RDW (11.5-15.5) % Potassium (3.5-5.1) mmol/L Chloride (98-107) mmol/L BUN (9-20) mg/dL Creatinine (0.66-1.25) mg/dL Glucose (74-99) mg/dL POC Glucose (mg/dL) 337 H 405 H (75-99) mg/dL Crossmatch See Detail 09/08/19 09/08/19 09/08/19 Range/Units 05:59 05:59 06:20 RBC 2.73 L (4.30-5.90) m/uL Hgb 8.3 L (13.0-17.5) gm/dL Hct 24.5 L (39.0-53.0) % RDW 16.3 H (11.5-15.5) % Potassium 5.5 H (3.5-5.1) mmol/L Chloride 109 H (98-107) mmol/L BUN 52 H (9-20) mg/dL Creatinine 1.65 H (0.66-1.25) mg/dL Glucose 240 H (74-99) mg/dL POC Glucose (mg/dL) 257 H (75-99) mg/dL Crossmatch 09/08/19 09/08/19 Range/Units 12:11 12:35 RBC (4.30-5.90) m/uL Hgb (13.0-17.5) gm/dL Hct (39.0-53.0) % RDW (11.5-15.5) % Potassium (3.5-5.1) mmol/L Chloride (98-107) mmol/L BUN (9-20) mg/dL Creatinine (0.66-1.25) mg/dL Glucose (74-99) mg/dL POC Glucose (mg/dL) 200 H 205 H (75-99) mg/dL Crossmatch Microbiology - Last 24 Hours (Table) 09/06/19 07:46 Blood Culture - Preliminary Blood No Growth after 48 hours Assessment and Plan Plan: ASSESSMENT #1 Chest pain with exertion possibly related to anemia #2 Acute kidney injury with hyperkalemia #3 COPD #4 History of lung cancer s/p resection and chemotherapy #5 History of multi-vessel coronary artery disease #6 Hypertension #7 Diabetes mellitus #8 Hx of DVT after lung resection on terminal gauger anti-coagulation #9 Chronic kidney disease Plan From cardiology's perspective, we'll recommend to continue this patient on current medications. DNP note has been reviewed, I agree with a documented findings and plan of care. Patient was seen and examined.
--- NOTE | 2019-09-08 15:53 | P.PN ---
Subjective Progress Note Date: 09/08/19 Principal diagnosis: Chest pain and shortness of breath, acute exacerbation of COPD, mild lactic acidemia unclear etiology The patient is seen today 09/08/2019 in follow-up on the selective care unit. He is currently sitting up at the bedside. Awake and alert in no acute distr ess. No worsening shortness of breath, cough or congestion. No further chest pain. He is maintaining O2 saturation in the 90s on room air. Afebrile. Hemodynamically stable. Status post 1 unit of packed red blood cells this admission. Hemoglobin 8.3. White count 7.3. Creatinine 1.65. He is continued on DuoNeb inhalations, Symbicort, Augmentin and prednisone. Anticoagulated with Xarelto. On sodium bicarb tabs. Objective - Vital Signs Vital signs: Vital Signs Temp 97.9 F 09/08/19 08:00 Pulse 70 09/08/19 15:22 Resp 16 09/08/19 15:22 BP 126/58 09/08/19 15:22 Pulse Ox 97 09/08/19 15:22 Intake & Output 09/07/19 09/08/19 09/08/19 18:59 06:59 18:59 Intake Total 1830 480 Output Total 625 1415 Balance 1205 -1415 480 Weight 90.5 kg 90.4 kg Intake: Intake, IV Titration 800 Amount Sodium Chloride 0.9% 1, 800 000 ml @ 100 mls/hr IV . Q10H [facility] Rx#:[id number] Oral 720 480 Blood Product 310 Rc Pheresis As-3 Unit 310 [id number] Output: Urine 625 1415 Other: Voiding Method Toilet Urinal # Voids 2 1 - Exam GENERAL EXAM: Alert, pleasant, 73-year-old white male, on room air, comfortable in no apparent distress. HEAD: Normocephalic/atraumatic. EYES: Normal reaction of pupils, equal size. Conjunctiva pink, sclera white. NOSE: Clear with pink turbinates. THROAT: No erythema or exudates. NECK: No masses, no JVD, no thyroid enlargement, no adenopathy. CHEST: No chest wall deformity. Symmetrical expansion. LUNGS: Equal air entry with some scattered wheezes, and rhonchi CVS: Regular rate and rhythm, normal S1 and S2, no gallops, no murmurs, no rubs ABDOMEN: Soft, nontender. No hepatosplenomegaly, normal bowel sounds, no guarding or rigidity. EXTREMITIES: No clubbing, no edema, no cyanosis, 2+ pulses and upper and lower extremities. MUSCULOSKELETAL: Muscle strength and tone normal. SPINE: No scoliosis or deformity SKIN: No rashes CENTRAL NERVOUS SYSTEM: No focal deficits, tone is normal in all 4 extremities. PSYCHIATRIC: Alert and oriented -3. Appropriate affect. Intact judgment and insight. - Labs CBC & Chem 7: 09/08/19 05:59 09/08/19 05:59 Labs: Abnormal Lab Results - Last 24 Hours (Table) 09/07/19 09/07/19 09/08/19 Range/Units 17:07 20:15 05:59 RBC (4.30-5.90) m/uL Hgb (13.0-17.5) gm/dL Hct (39.0-53.0) % RDW (11.5-15.5) % Potassium 5.5 H (3.5-5.1) mmol/L Chloride 109 H (98-107) mmol/L BUN 52 H (9-20) mg/dL Creatinine 1.65 H (0.66-1.25) mg/dL Glucose 240 H (74-99) mg/dL POC Glucose (mg/dL) 337 H 405 H (75-99) mg/dL 09/08/19 09/08/19 09/08/19 Range/Units 05:59 06:20 12:11 RBC 2.73 L (4.30-5.90) m/uL Hgb 8.3 L (13.0-17.5) gm/dL Hct 24.5 L (39.0-53.0) % RDW 16.3 H (11.5-15.5) % Potassium (3.5-5.1) mmol/L Chloride (98-107) mmol/L BUN (9-20) mg/dL Creatinine (0.66-1.25) mg/dL Glucose (74-99) mg/dL POC Glucose (mg/dL) 257 H 200 H (75-99) mg/dL 09/08/19 Range/Units 12:35 RBC (4.30-5.90) m/uL Hgb (13.0-17.5) gm/dL Hct (39.0-53.0) % RDW (11.5-15.5) % Potassium (3.5-5.1) mmol/L Chloride (98-107) mmol/L BUN (9-20) mg/dL Creatinine (0.66-1.25) mg/dL Glucose (74-99) mg/dL POC Glucose (mg/dL) 205 H (75-99) mg/dL Microbiology - Last 24 Hours (Table) 09/06/19 07:46 Blood Culture - Preliminary Blood No Growth after 48 hours Assessment and Plan Assessment: Assessment: #1. Chest pain, and shortness of breath most likely related to acute exacerbation of COPD #2. Mild lactic acidosis, of unclear etiology, no evidence of infection, but there is probably possibility of mild purulent tracheobronchitis #3. History of advanced mucinous adenocarcinoma, status post left upper lobectomy at [facility] #4. History of COPD, acute exacerbation #5. Coronary artery disease #6. History of CVA #7. Uncontrolled diabetes mellitus with hyperglycemia #8. History of deep venous thrombosis #9. Hyperlipidemia #10. Hypertension #11. History of myocardial infarction #12. Chronic kidney disease stage III #13. Acute kidney injury, improving Plan: The patient was seen and evaluated by Dr. Snider. He is improving. We'll continue the current treatment plan. We will order a computed tomography scan of the chest without contrast to evaluate the effectiveness of his cancer treatment. We will continue to follow make further recommendations based on his clinical status. I, the cosigning physician, performed a history & physical examination of the patient. Lungs sounds few scattered rhonchi, end expiratory wheeze. Maintaining good O2 saturations in the 90s on room air. I discussed the assessment and plan of care with my nurse practitioner, Nohemi Garcia. I attest to the above note as dictated by her.
--- NOTE | 2019-09-08 16:17 | CT ---
EXAMINATION TYPE: CT chest wo con DATE OF EXAM: 09/08/2019 COMPARISON: 06/25/2019 HISTORY: 73-year-old male history of lung cancer. TECHNIQUE: Contiguous axial scanning of the chest without IV contrast. Coronal and sagittal reconstru ctions performed. CT DLP: 466.5 mGycm Automated exposure control for dose reduction was used. FINDINGS: Heart normal size with trace pericardial fluid/thickening. Coronary vessel calcifications are present . Aorta normal caliber with mild to moderate at the splenic arch calcifications and variant direct juvenal eoff of the left vertebral artery directly from the aortic arch. Borderline to mildly enlarged caliber to the main right and left pulmonary arteries at 2.8 and 2.5 cm , respectively, suggesting underlying pulmonary artery hypertension. No thoracic lymphadenopathy by CT size criteria. Interval postsurgical change along the medial right lower lobe with a staple line. There is a 1.8 cm nodule along the resection margin previously measuring 1.7 cm. Scattered left greater than right pulmonary nodules are redemonstrated. These are largely decreased i n size from prior exam. For example, the 2 dominant adjacent left infrahilar nodules currently measure 2.0 and 1.8 cm versus 2.6 and 2.0 cm, respectively. Peripheral left midlung pulmonary nodule measures 6 mm, axial image 28 versus 9 mm, previously. Left basilar pulmonary nodule measures 7 mm versus 8 mm, previously. Right upper lobe pulmonary nodule measures 7 mm versus 9 mm, previously. New trace right pleural effusion. Tiny hiatal hernia. Cholecystectomy clips. Moderate stool burden. No nephric edema likely chronic sen escent change. Bones: No osseous destructive process. Mild degenerative disc disease midthoracic spine. IMPRESSION: 1. INTERVAL RESECTION CHANGES ALONG THE MEDIAL ASPECT OF THE RIGHT LOWER LOBE. THE NODULE ALONG THE R ESECTION MARGIN IS MINIMALLY LARGER AT 1.8 CM VERSUS 1.7 CM, PREVIOUSLY. 2. OTHERWISE, THE REMAINING NUMEROUS BILATERAL PULMONARY NODULES ARE DECREASED IN SIZE FROM PRIOR EXA M. FOR EXAMPLE, THE 2 DOMINANT LEFT INFRAHILAR NODULES MEASURE 2.0 AND 1.8 CM (VERSUS 2.6 AND 2.0 CM, RESPECTIVELY, PREVIOUSLY). 3. NEW TRACE RIGHT PLEURAL EFFUSION.
--- NOTE | 2019-09-08 16:33 | PN ---
PROGRESS NOTE Patient is seen for followup for acute kidney injury. Renal function has improved. Serum creatinine is down to 1.65 from 2.4 mg/dL, although serum potassium is mildly elevated at 5.5. Patient's blood sugars have been running high with glucose of 405 yesterday and today it has been around 240 to 200 mg/dL. PHYSICAL EXAMINATION: This morning blood pressure is 113/62, heart rate 61 per minute, patient is afebrile. Examination of the heart S1, S2. Examination of the lungs, bilateral breath sounds are heard. Abdomen is soft, non-tender. Examination of lower extremities shows edema 1+ bilaterally. LABS: Sodium 140, potassium 5.5, chloride 109, BUN 52, creatinine 1.65, hemoglobin 8.3 g/dL. ASSESSMENT: 1. Acute kidney injury, currently improving, nonoliguric. Etiology ischemic acute tubular necrosis and hypoperfusion. 2. Chronic kidney disease stage 3 secondary to Carboplatinum based chemotherapy. Baseline creatinine 1.7-1.9 mg/dL. 3. Adenocarcinoma of left lung status post lobectomy, maintained on chemotherapy. 4. Hyperkalemia associated with hyperglycemia. No evidence of urine retention. PLAN: Control blood sugars to maintain blood sugar less than 150 mg/dL. Continue with oral sodium bicarb. Continue off IV fluids. We can add low-dose loop diuretics. The patient received a dose of IV Lasix yesterday. He is currently status post Kayexalate 15 g today. Maintain patient on low-potassium diet as well. MMODL / IJN: [id number] /
[2019-09-08 17:29] LABS: Glucose,Whole Blood 339 mg/dL (75-99)
[2019-09-08 20:45] LABS: Glucose,Whole Blood 437 mg/dL (75-99)
[2019-09-08 20:45] LABS: Glucose,Whole Blood 446 mg/dL (75-99)
[2019-09-08] MEDS ORDERED: INSULIN DETEMIR (LEVEMIR) 100 UNIT/ML SYR SQ SCH (21:00)
[2019-09-08] MEDS: PROPRANOLOL 20 MG TAB PO SCH (21:54)
[2019-09-08] MEDS: diphenhydrAMINE 25 MG CAP PO PRN (23:20)
[2019-09-09 06:23] LABS: Glucose,Whole Blood 133 mg/dL (75-99)
[2019-09-09 06:35] LABS: Basophils % (A) 0 %; Eosinophils % (A) 0 %; HCT 24.7 % (39.0-53.0); HGB 8.2 gm/dL (13.0-17.5); Lymphocytes # (A) 0.4 k/uL (1.0-4.8); Lymphocytes % (A) 8 %; MCH 29.7 pg (25.0-35.0); MCHC 33.4 g/dL (31.0-37.0); Mean Platelet Volume 6.5; Monocytes # (A) 0.1 k/uL (0-1.0); Monocytes % (A) 2 %; Neutrophils # (A) 4.9 k/uL (1.3-7.7); Neutrophils % (A) 89 %; Platelet Count 227 k/uL (150-450); RBC 2.77 m/uL (4.30-5.90); RDW 15.9 % (11.5-15.5); WBC 5.5 k/uL (3.8-10.6)
[2019-09-09] MEDS: INSULIN DETEMIR (LEVEMIR) 100 UNIT/ML SYR SQ SCH (06:37)
[2019-09-09] MEDS: SODIUM CHLORIDE 0.9% 1,000 ML IV SCH (06:37)
[2019-09-09] MEDS: INSULIN ASPART (NovoLOG) 100 UNIT/ML VIAL SQ SCH ×4 (06:37→21:02)
[2019-09-09 07:02] LABS: Calcium 8.7 mg/dL (8.4-10.2); Potassium 4.7 mmol/L (3.5-5.1)
[2019-09-09] MEDS: SYMBICORT 160-4.5 MCG INHALER INHALATION SCH ×2 (08:09→22:12)
[2019-09-09] MEDS: IPRATROPIUM-ALBUTEROL 3 ML NEB INHALATION SCH ×4 (08:09→22:10)
[2019-09-09] MEDS: AMOXIC-POT CLAV 875-125MG 1 EACH TAB PO SCH ×2 (08:39→21:01)
[2019-09-09] MEDS: FAMOTIDINE 20 MG TAB PO SCH (08:40)
[2019-09-09] MEDS: levETIRAcetam 500 MG TAB PO SCH ×2 (08:40→21:01)
[2019-09-09] MEDS: ATORVASTATIN 20 MG TAB PO SCH (08:40)
[2019-09-09] MEDS: RIVAROXABAN 15 MG TAB PO SCH (08:40)
[2019-09-09] MEDS: ISOSORBIDE MONONITRATE 20 MG TAB PO SCH (08:40)
[2019-09-09] MEDS: SODIUM BICARBONATE TAB 650 MG TAB PO SCH ×3 (08:40→21:02)
[2019-09-09] MEDS: PROPRANOLOL 20 MG TAB PO SCH ×2 (08:40→21:01)
[2019-09-09] MEDS: predniSONE 20 MG TAB PO SCH (08:40)
[2019-09-09] MEDS: amLODIPine 10 MG TAB PO SCH (08:40)
[2019-09-09] MEDS: FOLIC ACID 1 MG TAB PO SCH (08:40)
--- NOTE | 2019-09-09 11:01 | ECHOF ---
Referral Reason:chest pain MEASUREMENTS -------- HEIGHT: 182.9 cm WEIGHT: 91.6 kg BP: RVIDd: 3.6 cm (< 3.3) IVSd: 1.2 cm (0.6 - 1.1) LVIDd: 4.9 cm (3.9 - 5.3) LVPWd: 1.6 cm (0.6 - 1.1) IVSs: 1.4 cm LVIDs: 3.5 cm LVPWs: 1.4 cm LA Diam: 3.5 cm (2.7 - 3.8) LAESV Index (A-L): 27.87 ml/m Ao Diam: 3.3 cm (2.0 - 3.7) AV Cusp: 1.9 cm (1.5 - 2.6) LA Diam: 3.7 cm (2.7 - 3.8) MV EXCURSION: 20.477 mm (> 18.000) MV EF SLOPE: 94 mm/s (70 - 150) EPSS: 0.6 cm MV E Vincent: 0.85 m/s MV DecT: 250 ms MV A Vincent: 1.06 m/s MV E/A Ratio: 0.80 RAP: 5.00 mmHg RVSP: 18.68 mmHg FINDINGS -------- Sinus rhythm. This was a technically adequate study. The left ventricular size is normal. There is mild concentric left ventricular hypertrophy. Overa ll left ventricular systolic function is normal with, an EF between 55 - 60 %. The right ventricle is normal in size. The left atrial size is normal. The right atrial size is normal. There is mild aortic valve sclerosis. There is no evidence of aortic regurgitation. Mild mitral annular calcification present. Mild mitral regurgitation is present. Mild tricuspid regurgitation present. Right ventricular systolic pressure is normal at < 35 mmHg. There is no evidence of pulmonary hypertension. There is no pulmonic regurgitation present. The aortic root size is normal. There is no pericardial effusion. CONCLUSIONS -------- 1. Sinus rhythm. 2. This was a technically adequate study. 3. The left ventricular size is normal. 4. There is mild concentric left ventricular hypertrophy. 5. Overall left ventricular systolic function is normal with, an EF between 55 - 60 %. 6. The right ventricle is normal in size. 7. The left atrial size is normal. 8. The right atrial size is normal. 9. There is mild aortic valve sclerosis. 10. Mild mitral annular calcification present. 11. Mild mitral regurgitation is present. 12. Mild tricuspid regurgitation present. 13. Right ventricular systolic pressure is normal at < 35 mmHg. 14. There is no evidence of pulmonary hypertension. 15. There is no pulmonic regurgitation present. 16. The aortic root size is normal. 17. There is no pericardial effusion. CUSTOMER PROGRAM SPECIALIST: Nehal Dergoot RDCS
[2019-09-09 11:05] LABS: Glucose,Whole Blood 56 mg/dL (75-99)
[2019-09-09 11:26] LABS: Glucose,Whole Blood 53 mg/dL (75-99)
[2019-09-09 11:55] LABS: Glucose,Whole Blood 75 mg/dL (75-99)
[2019-09-09 11:55] LABS: Glucose,Whole Blood 74 mg/dL (75-99)
--- NOTE | 2019-09-09 11:56 | P.PN ---
Subjective Progress Note Date: 09/09/19 This is a pleasant 73-year-old male patient of Dr. Chacon past medical history significant for lung cancer status post left lobe resection, multivessel coronary artery disease, hypertension, DVT on long-term anticoagulation with Xarelto, diabetes mellitus and COPD. patient has completed a second cycle of chemotherapy of carboplatin, Alimta and keytruda on August 15, he presented to the hospital with symptoms of chest discomfort, at home he apparently had taken some nebulizer treatments to try to relieve the symptoms. Patient did have a cardiac catheterization performed in August 2018 which revealed an occluded chronically occluded nondominant RCA, severe diffuse disease in a small second obtuse marginal branch with moderate disease in the proximal and distal circumflex. Moderate disease in the proximal LAD which was non-hemodynamically significant by FFR. Hemoglobin on admission 7.9, 8.3 this morning. Sodium 140, potassium 5.5, BUN 52 and creatinine 1.6. Blood pressure this morning 113/60, heart rate in the 70s. Upon review of the patient's of prior hemoglobins, it appears that the patient has been low since October 2018 with a hemoglobin at that time of 8. He had been taking xarelto 20 mg daily which was decreased by Dr. Sonia Barger to 15 mg daily. 09/09/2019 Patient was seen and examined this morning, blood pressure 130/70 with a heart rate in the 70s, 99% on 2 L of oxygen. White blood cell count 5.5, hemoglobin 8.2, platelet count 227. Sodium 140, potassium 4.7, BUN 48, creatinine 1.4. Echocardiogram with Doppler study revealed an ejection fraction of 55-60%. Objective - Vital Signs Vital signs: Vital Signs Temp 98.1 F 09/09/19 08:00 Pulse 68 09/09/19 08:24 Resp 20 09/09/19 08:00 BP 136/70 09/09/19 08:00 Pulse Ox 99 09/09/19 08:00 Intake & Output 09/08/19 09/09/19 09/09/19 18:59 06:59 18:59 Intake Total 720 240 360 Balance 720 240 360 Weight 90.8 kg Intake: Oral 720 240 360 Other: Voiding Method Toilet Urinal # Voids 3 2 - Exam GENERAL: This is a 73-year-old male in no apparent distress at the time of my examination. HEENT: Head is atraumatic, normocephalic. Pupils are equal, round. Sclerae anicteric. Conjunctivae are clear. Mucous membranes of the mouth are moist. Neck is supple. There is no jugular venous distention. No carotid bruit is heard. LUNGS: Scattered expiratory wheeze. No chest wall tenderness is noted on palpation or with deep breathing. HEART: Regular rate and rhythm without murmurs, rubs or gallops. S1 and S2 heard. ABDOMEN: Soft, nontender. Bowel sounds are heard. No organomegaly noted. EXTREMITIES: no lower extremity pitting edema and no calf tenderness noted. VASCULAR: Radial and dorsalis pedis pulses palpated, no evidence of clubbing. NEUROLOGIC: Patient is awake, alert and oriented x3. - Labs CBC & Chem 7: 09/09/19 05:47 09/09/19 05:47 Labs: Abnormal Lab Results - Last 24 Hours (Table) 09/08/19 09/08/19 09/08/19 Range/Units 12:11 12:35 17:15 RBC (4.30-5.90) m/uL Hgb (13.0-17.5) gm/dL Hct (39.0-53.0) % RDW (11.5-15.5) % Lymphocytes # (1.0-4.8) k/uL BUN (9-20) mg/dL Creatinine (0.66-1.25) mg/dL Glucose (74-99) mg/dL POC Glucose (mg/dL) 200 H 205 H 339 H (75-99) mg/dL 09/08/19 09/08/19 09/09/19 Range/Units 20:42 20:43 05:47 RBC (4.30-5.90) m/uL Hgb (13.0-17.5) gm/dL Hct (39.0-53.0) % RDW (11.5-15.5) % Lymphocytes # (1.0-4.8) k/uL BUN 48 H (9-20) mg/dL Creatinine 1.40 H (0.66-1.25) mg/dL Glucose 127 H (74-99) mg/dL POC Glucose (mg/dL) 437 H 446 H (75-99) mg/dL 1109/09/19 09/09/19 Range/Units 05:47 06:22 11:03 RBC 2.77 L (4.30-5.90) m/uL Hgb 8.2 L (13.0-17.5) gm/dL Hct 24.7 L (39.0-53.0) % RDW 15.9 H (11.5-15.5) % Lymphocytes # 0.4 L (1.0-4.8) k/uL BUN (9-20) mg/dL Creatinine (0.66-1.25) mg/dL Glucose (74-99) mg/dL POC Glucose (mg/dL) 133 H 56 L (75-99) mg/dL 09/09/19 Range/Units 11:20 RBC (4.30-5.90) m/uL Hgb (13.0-17.5) gm/dL Hct (39.0-53.0) % RDW (11.5-15.5) % Lymphocytes # (1.0-4.8) k/uL BUN (9-20) mg/dL Creatinine (0.66-1.25) mg/dL Glucose (74-99) mg/dL POC Glucose (mg/dL) 53 L (75-99) mg/dL Microbiology - Last 24 Hours (Table) 09/06/19 07:46 Blood Culture - Preliminary Blood No Growth after 72 hours Assessment and Plan Plan: ASSESSMENT #1 Chest pain with exertion possibly related to anemia #2 Acute kidney injury with hyperkalemia #3 COPD #4 History of lung cancer s/p resection and chemotherapy #5 History of multi-vessel coronary artery disease #6 Hypertension #7 Diabetes mellitus #8 Hx of DVT after lung resection on [employer] anti-coagulation #9 Chronic kidney disease Plan From cardiology's perspective, we'll recommend to continue this patient on current medications. We will follow along with you now on an as-needed basis only, please hesitate any questions. DNP note has been reviewed, I agree with a documented findings and plan of care. Patient was seen and examined.
[2019-09-09 12:49] LABS: Glucose,Whole Blood 96 mg/dL (75-99)
--- NOTE | 2019-09-09 14:06 | P.PN ---
Subjective This is a pleasant 73 years old male with past medical history of coronary artery disease, COPD, CVA/TIA, diabetes mellitus, deep venous thrombosis, hyperlipidemia, hypertension, osteoarthritis, seizure disorder, benign prostatic hypertrophy, left upper lobe lung mass, recently diagnosed lung cancer who has been started on chemotherapy, and has received second course of therapy, patient underwent left upper lobe lobectomy and mediastinal node dissection on 07/23/2018 at [facility] and the pathology revealed adenocarcinoma. He got chemotherapy on 09/24/2019 . Patient presents because of left-sided chest pain about 10/10 in severity, patient feels better today and his chest pain down to 7/10. He still have some dyspnea. Patient is being followed closely by many consultants Coumadin pulmonary, nephrology and looping inspector/oncology. Patient currently on Augmentin, prednisone 40 mg daily, xarelto , no IV fluids as been eating and drinking. His creatinine was at baseline of 1.8, today even better at 1.6, potassium 5.5, sugar is better controlled to 248-257. Hemoglobin is 8.3. During this admission was started on metoprolol 25, 3 times a day, don't to switch it to Inderal twice a day because patient wants to treat his tremor His chronic potassium elevation, today's 5.5. Given 1 dose of potassium replaced and low potassium diet Discussed with staff 09/09/2019 Patient is doing better clinically with improvement in his chest pain and dyspnea and coughing. He still have some tremor, Inderal has been added. Today his sugar was on the low side running between 53-96, yesterday his ninth dose of Levemir was admitted from 80 up to 90 and he is 10 extra units of short acting insulin last night for high sugar. We drinking his nighttime insulin Levemir dose back to 80 units at at bedtime. Acute monitoring patient as his sugar today as it is unstable. Blood pressure this morning 136/76, heart rate 72 and his saturating 99%. Patient has no oxygen at home. Objective - Vital Signs Vital signs: Vital Signs Temp 98.1 F 09/09/19 08:00 Pulse 72 09/09/19 12:28 Resp 20 09/09/19 11:55 BP 128/72 09/09/19 11:55 Pulse Ox 97 09/09/19 11:55 Intake & Output 09/08/19 09/09/19 09/09/19 18:59 06:59 18:59 Intake Total 720 240 840 Balance 720 240 840 Weight 90.8 kg Intake: Oral 720 240 840 Other: Voiding Method Toilet Urinal # Voids 3 2 2 - Exam -GENERAL: The patient is alert and oriented x3, not in any acute distress. Generally weak HEENT: Pupils are round and equally reacting to light. EOMI. No scleral icterus. No conjunctival pallor. Normocephalic, atraumatic. No pharyngeal erythema. No thyromegaly. CARDIOVASCULAR: S1 and S2 present. No murmurs, rubs, or gallops. -PULMONARY: Chest is clear to auscultation, scattered wheezing bilaterally ABDOMEN: Soft, nontender, nondistended, normoactive bowel sounds. No palpable organomegaly. MUSCULOSKELETAL: No joint swelling or deformity. EXTREMITIES: No cyanosis, clubbing, or pedal edema. NEUROLOGICAL: Gross neurological examination did not reveal any focal deficits. SKIN: No rashes. no petechiae. - Labs CBC & Chem 7: 09/09/19 05:47 09/09/19 05:47 Labs: Abnormal Lab Results - Last 24 Hours (Table) 09/08/19 09/08/19 09/08/19 Range/Units 17:15 20:42 20:43 RBC (4.30-5.90) m/uL Hgb (13.0-17.5) gm/dL Hct (39.0-53.0) % RDW (11.5-15.5) % Lymphocytes # (1.0-4.8) k/uL BUN (9-20) mg/dL Creatinine (0.66-1.25) mg/dL Glucose (74-99) mg/dL POC Glucose (mg/dL) 339 H 437 H 446 H (75-99) mg/dL 09/09/19 09/09/19 09/09/19 Range/Units 05:47 05:47 06:22 RBC 2.77 L (4.30-5.90) m/uL Hgb 8.2 L (13.0-17.5) gm/dL Hct 24.7 L (39.0-53.0) % RDW 15.9 H (11.5-15.5) % Lymphocytes # 0.4 L (1.0-4.8) k/uL BUN 48 H (9-20) mg/dL Creatinine 1.40 H (0.66-1.25) mg/dL Glucose 127 H (74-99) mg/dL POC Glucose (mg/dL) 133 H (75-99) mg/dL 09/09/19 09/09/19 09/09/19 Range/Units 11:03 11:20 11:32 RBC (4.30-5.90) m/uL Hgb (13.0-17.5) gm/dL Hct (39.0-53.0) % RDW (11.5-15.5) % Lymphocytes # (1.0-4.8) k/uL BUN (9-20) mg/dL Creatinine (0.66-1.25) mg/dL Glucose (74-99) mg/dL POC Glucose (mg/dL) 56 L 53 L 74 L (75-99) mg/dL Microbiology - Last 24 Hours (Table) 09/06/19 07:46 Blood Culture - Preliminary Blood No Growth after 72 hours Assessment and Plan Assessment: Chest pain. Cardiology evaluated the patient. Acute kidney injury on the top of chronic kidney disease, improved, baseline creatinine 1.7-1.9 Diabetes mellitus with hyperglycemia episode of hypoglycemia due to extra doses of insulin. Improving Chronic hyperkalemia Elevated lactic acid, came back to normal at 1.9 Hypertension Hyperlipidemia 6 chronic seizure disorder on Keppra History of adeno cancer of the lung status post left upper lobectomy Plan: This is a pleasant 74 years old male who presents because of chest pain. Cardiology evaluation is appreciated and follow their recommendation. Switch his metoprolol to develop because of his tumor. Continue with xarelto , give 1 dose of Kayexalate and follow-up potassium level. Continue with her mentation and 40 mg of prednisone orally. Continue with gentle hydration. We'll ask for physical therapy evaluation . Continue same treatment. Continue with symptomatic treatment. Resume home medication. Monitor lytes and vitals. DVT and GI prophylaxis. Further recommendations of the clinical course of the patient DVT prophylaxis: Xarelto GI Prophylaxis: Pepcid PT/OT: Pending Prognosis is guarded
--- NOTE | 2019-09-09 15:27 | P.PN ---
Subjective Progress Note Date: 09/09/19 Principal diagnosis: Chest pain and shortness of breath, acute exacerbation of COPD, mild lactic acidemia unclear etiology The patient is seen today 09/09/2019 in follow-up on the selective care unit. Awake and alert in no acute distress. No worsening shortness of breath, cough or congestion. No further chest pain. He is maintaining O2 saturation in the 90s on room air. Afebrile. Hemodynamically stable. Status post 1 unit of packed red blood cells this admission. Hemoglobin 8.2 White count 5.5. Creatinine 1.40. He is continued on DuoNeb inhalations, Symbicort, Augmentin and prednisone. Anticoagulated with Xarelto. He has been having issues with his blood glucose levels in his insulin has been adjusted. Objective - Vital Signs Vital signs: Vital Signs Temp 98.1 F 09/09/19 08:00 Pulse 72 09/09/19 12:28 Resp 20 09/09/19 11:55 BP 128/72 09/09/19 11:55 Pulse Ox 97 09/09/19 11:55 Intake & Output 09/08/19 09/09/19 09/09/19 18:59 06:59 18:59 Intake Total 720 240 840 Balance 720 240 840 Weight 90.8 kg Intake: Oral 720 240 840 Other: Voiding Method Toilet Urinal # Voids 3 2 2 - Exam GENERAL EXAM: Alert, pleasant, 73-year-old white male, on room air, comfortable in no apparent distress. HEAD: Normocephalic/atraumatic. EYES: Normal reaction of pupils, equal size. Conjunctiva pink, sclera white. NOSE: Clear with pink turbinates. THROAT: No erythema or exudates. NECK: No masses, no JVD, no thyroid enlargement, no adenopathy. CHEST: No chest wall deformity. Symmetrical expansion. LUNGS: Equal air entry with some scattered wheezes, and rhonchi CVS: Regular rate and rhythm, normal S1 and S2, no gallops, no murmurs, no rubs ABDOMEN: Soft, nontender. No hepatosplenomegaly, normal bowel sounds, no guarding or rigidity. EXTREMITIES: No clubbing, no edema, no cyanosis, 2+ pulses and upper and lower extremities. MUSCULOSKELETAL: Muscle strength and tone normal. SPINE: No scoliosis or deformity SKIN: No rashes CENTRAL NERVOUS SYSTEM: No focal deficits, tone is normal in all 4 extremities. PSYCHIATRIC: Alert and oriented -3. Appropriate affect. Intact judgment and insight. - Labs CBC & Chem 7: 09/09/19 05:47 09/09/19 05:47 Labs: Abnormal Lab Results - Last 24 Hours (Table) 09/08/19 09/08/19 09/08/19 Range/Units 17:15 20:42 20:43 RBC (4.30-5.90) m/uL Hgb (13.0-17.5) gm/dL Hct (39.0-53.0) % RDW (11.5-15.5) % Lymphocytes # (1.0-4.8) k/uL BUN (9-20) mg/dL Creatinine (0.66-1.25) mg/dL Glucose (74-99) mg/dL POC Glucose (mg/dL) 339 H 437 H 446 H (75-99) mg/dL 09/09/19 09/09/19 09/09/19 Range/Units 05:47 05:47 06:22 RBC 2.77 L (4.30-5.90) m/uL Hgb 8.2 L (13.0-17.5) gm/dL Hct 24.7 L (39.0-53.0) % RDW 15.9 H (11.5-15.5) % Lymphocytes # 0.4 L (1.0-4.8) k/uL BUN 48 H (9-20) mg/dL Creatinine 1.40 H (0.66-1.25) mg/dL Glucose 127 H (74-99) mg/dL POC Glucose (mg/dL) 133 H (75-99) mg/dL 09/09/19 09/09/19 09/09/19 Range/Units 11:03 11:20 11:32 RBC (4.30-5.90) m/uL Hgb (13.0-17.5) gm/dL Hct (39.0-53.0) % RDW (11.5-15.5) % Lymphocytes # (1.0-4.8) k/uL BUN (9-20) mg/dL Creatinine (0.66-1.25) mg/dL Glucose (74-99) mg/dL POC Glucose (mg/dL) 56 L 53 L 74 L (75-99) mg/dL Microbiology - Last 24 Hours (Table) 09/06/19 07:46 Blood Culture - Preliminary Blood No Growth after 72 hours Assessment and Plan Assessment: Assessment: #1. Chest pain, and shortness of breath most likely related to acute exacerbation of COPD #2. Mild lactic acidosis, of unclear etiology, no evidence of infection, but there is probably possibility of mild purulent tracheobronchitis #3. History of advanced mucinous adenocarcinoma, status post left upper lobectomy at [facility] #4. History of COPD, acute exacerbation #5. Coronary artery disease #6. History of CVA #7. Uncontrolled diabetes mellitus with hyperglycemia #8. History of deep venous thrombosis #9. Hyperlipidemia #10. Hypertension #11. History of myocardial infarction #12. Chronic kidney disease stage III #13. Acute kidney injury, improving Plan: The patient was seen and evaluated. He is improving. We'll continue the current treatment plan. CT scan of the chest was reviewed. We will continue to follow make further recommendations based on his clinical status. Probable discharge in the a.m. I, the cosigning physician, performed a history & physical examination of the patient. Lungs sounds few scattered rhonchi, end expiratory wheeze. Maintaining good O2 saturations in the 90s on room air. I discussed the assessment and plan of care with my nurse practitioner, Nohemi Garcia. I attest to the above note as dictated by her.
[2019-09-09 17:02] LABS: Glucose,Whole Blood 294 mg/dL (75-99)
[2019-09-09 20:41] LABS: Glucose,Whole Blood 354 mg/dL (75-99)
[2019-09-09] MEDS ORDERED: INSULIN DETEMIR (LEVEMIR) 100 UNIT/ML SYR SQ SCH (21:00)
--- NOTE | 2019-09-09 22:34 | PN ---
PROGRESS NOTE Patient is seen for followup for acute kidney injury. Renal function continues to improve. Patient's potassium is down to 4.7. His blood sugars are better controlled, although I do see another reading of 446 this morning. I have advised the patient that he should not be drinking orange juice for low blood sugars; rather he should take apple juice. PHYSICAL EXAMINATION: On examination, blood pressure was 136/70, heart rate 72 per minute. Patient is afebrile. EXAMINATION OF THE HEART: S1 and S2. EXAMINATION OF LUNGS: Decreased breath sounds at bases. ABDOMEN: Soft, non-tender. Examination of lower extremities shows no significant edema. INTERMEDIATE FRAME TENDER exam is grossly intact. LABS: Hemoglobin 8.2, sodium 140, potassium 4.7, BUN 48, creatinine 1.4. ASSESSMENT: 1. Acute kidney injury secondary to hypotension and hypoperfusion, currently improved. 2. Chronic kidney disease, stage III, secondary to carboplatinum-based chemotherapy. Creatinine baseline 1.7 to 1.9. 3. Adenocarcinoma, left lung, status post lobectomy, maintained on chemotherapy. 4. Hyperkalemia associated with acute kidney injury and hyperglycemia. Today potassium is down to 4.7. Patient is advised to avoid use of orange juice and rather use apple juice if his blood sugar is low. There is no evidence of urine retention. He did receive Kayexalate yesterday and is maintained on loop diuretics. We will repeat labs tomorrow. MMODL / IJN: [id number] /
[2019-09-09] MEDS: diphenhydrAMINE 25 MG CAP PO PRN (22:49)
[2019-09-10] MEDS: SODIUM CHLORIDE 0.9% 1,000 ML IV SCH (02:06)
[2019-09-10 06:18] LABS: Glucose,Whole Blood 200 mg/dL (75-99)
[2019-09-10] MEDS: INSULIN ASPART (NovoLOG) 100 UNIT/ML VIAL SQ SCH ×2 (06:37→12:00)
[2019-09-10] MEDS: INSULIN DETEMIR (LEVEMIR) 100 UNIT/ML SYR SQ SCH (06:37)
[2019-09-10 07:19] LABS: Basophils % (A) 0 %; Eosinophils % (A) 0 %; HCT 25.2 % (39.0-53.0); HGB 8.7 gm/dL (13.0-17.5); Lymphocytes # (A) 0.4 k/uL (1.0-4.8); Lymphocytes % (A) 9 %; MCH 30.4 pg (25.0-35.0); MCHC 34.6 g/dL (31.0-37.0); Mean Platelet Volume 6.6; Monocytes # (A) 0.1 k/uL (0-1.0); Monocytes % (A) 1 %; Neutrophils # (A) 4.2 k/uL (1.3-7.7); Neutrophils % (A) 88 %; Platelet Count 242 k/uL (150-450); RBC 2.86 m/uL (4.30-5.90); RDW 15.7 % (11.5-15.5); WBC 4.7 k/uL (3.8-10.6)
[2019-09-10 07:43] LABS: Albumin 3.1 g/dL (3.5-5.0); Calcium 8.6 mg/dL (8.4-10.2); Potassium 4.7 mmol/L (3.5-5.1); Total Bilirubin 0.4 mg/dL (0.2-1.3); Total Protein 5.6 g/dL (6.3-8.2)
[2019-09-10] MEDS: SODIUM BICARBONATE TAB 650 MG TAB PO SCH (08:39)
[2019-09-10] MEDS: FOLIC ACID 1 MG TAB PO SCH (08:40)
[2019-09-10] MEDS: levETIRAcetam 500 MG TAB PO SCH (08:40)
[2019-09-10] MEDS: amLODIPine 10 MG TAB PO SCH (08:40)
[2019-09-10] MEDS: AMOXIC-POT CLAV 875-125MG 1 EACH TAB PO SCH (08:42)
[2019-09-10] MEDS: PROPRANOLOL 20 MG TAB PO SCH (08:42)
[2019-09-10] MEDS: ISOSORBIDE MONONITRATE 20 MG TAB PO SCH (08:42)
[2019-09-10] MEDS: RIVAROXABAN 15 MG TAB PO SCH (08:42)
[2019-09-10] MEDS: ATORVASTATIN 20 MG TAB PO SCH (08:42)
[2019-09-10] MEDS: predniSONE 20 MG TAB PO SCH (08:42)
[2019-09-10] MEDS: SYMBICORT 160-4.5 MCG INHALER INHALATION SCH (08:48)
[2019-09-10] MEDS: IPRATROPIUM-ALBUTEROL 3 ML NEB INHALATION SCH ×3 (08:48→16:35)
[2019-09-10] MEDS: FAMOTIDINE 20 MG TAB PO SCH (09:26)
[2019-09-10 11:48] LABS: Glucose,Whole Blood 193 mg/dL (75-99)
[2019-09-10 12:26] VITALS: BP 113/62; PULSE 64; RESP 18; TEMP 97.6
--- NOTE | 2019-09-10 16:28 | P.PN ---
Subjective Progress Note Date: 09/10/19 Principal diagnosis: Chest pain and shortness of breath, acute exacerbation of COPD, mild lactic acidemia of unclear etiology On 09/07/2019 patient seen in follow-up on selective care unit, he is awake and alert, does not appear to be in any acute distress. Lung sounds reveal some scattered wheezing and still some pulmonary congestion, but no acute distress, tremors in the left hand persists, no fever or chills, patient remains on supplemental oxygen, currently at 2 L of oxygen with a pulse ox of 98%, hemodynamically stable, no tachycardia, blood culture showed no growth, lab work shows no evidence of leukocytosis, white blood cell count is 6.6, hemoglobin of 7.4, sodium is 138, potassium is 5.5, chloride is 109, CO2 is 19, B1 is 56 and creatinine is 1.80. Patient is on empiric antibiotics in the form of Augmentin, nebulized bronchodilators and oral prednisone, IV normal saline infusing at a rate of 100 ML per hour, nephrology service is following, ration is nonoliguric, renal profile has slightly improved. No nausea, vomiting or diarrhea. On 09/10/2019 patient seen in follow-up on [facility] care unit, she is resting comfortably in bed, in no acute distress, room air pulse ox is 98%, no fever or chills, hemodynamically stable. Patient states he has been ambulating in the hallway, tolerated it fairly well. Today's labs have been reviewed, showing white blood cell count of 4.7, hemoglobin of 8.7, electrolytes were within normal limits, renal profile is relatively stable, with BUN of 15 and creatinine of 1.4. Blood culture showed no growth, there have been no fever or chills, no complaints of cough or significant congestion, or hemoptysis, remains on oral antibiotics in the form of Augmentin, nebulized bronchodilators, and oral prednisone, improving, could probably be considered for discharge home today. His last CT chest obtained on 09/08/2019 showed decrease in the size of the remaining numerous bilateral pulmonary nodules from prior exam, and a new trace right pleural effusion. Hemodynamically stable, Objective - Vital Signs Vital signs: Vital Signs Temp 97.6 F 09/10/19 12:00 Pulse 74 09/10/19 12:16 Resp 18 09/10/19 12:00 BP 113/62 09/10/19 12:00 Pulse Ox 98 09/10/19 12:00 Intake & Output 09/09/19 09/10/19 09/10/19 18:59 06:59 18:59 Intake Total 1080 880 Output Total 1650 500 Balance 1080 -1650 380 Weight 92.9 kg Intake: Oral 1080 880 Output: Urine 1650 500 Other: Voiding Method Toilet Urinal # Voids 2 1 - Exam GENERAL EXAM: Alert, pleasant, 73-year-old white male, on room air, comfortable in no apparent distress. HEAD: Normocephalic/atraumatic. EYES: Normal reaction of pupils, equal size. Conjunctiva pink, sclera white. NOSE: Clear with pink turbinates. THROAT: No erythema or exudates. NECK: No masses, no JVD, no thyroid enlargement, no adenopathy. CHEST: No chest wall deformity. Symmetrical expansion. LUNGS: Equal air entry are clear CVS: Regular rate and rhythm, normal S1 and S2, no gallops, no murmurs, no rubs ABDOMEN: Soft, nontender. No hepatosplenomegaly, normal bowel sounds, no guarding or rigidity. EXTREMITIES: No clubbing, no edema, no cyanosis, 2+ pulses and upper and lower extremities. MUSCULOSKELETAL: Muscle strength and tone normal. SPINE: No scoliosis or deformity SKIN: No rashes CENTRAL NERVOUS SYSTEM: Alert and oriented -3. No focal deficits, tone is normal in all 4 extremities. PSYCHIATRIC: Alert and oriented -3. Appropriate affect. Intact judgment and insight. - Labs CBC & Chem 7: 09/10/19 06:23 09/10/19 06:23 Labs: Abnormal Lab Results - Last 24 Hours (Table) 09/09/19 09/09/19 09/10/19 Range/Units 16:51 20:40 06:16 RBC (4.30-5.90) m/uL Hgb (13.0-17.5) gm/dL Hct (39.0-53.0) % RDW (11.5-15.5) % Lymphocytes # (1.0-4.8) k/uL BUN (9-20) mg/dL Creatinine (0.66-1.25) mg/dL Glucose (74-99) mg/dL POC Glucose (mg/dL) 294 H 354 H 200 H (75-99) mg/dL AST (17-59) U/L Total Protein (6.3-8.2) g/dL Albumin (3.5-5.0) g/dL 09/10/19 09/10/19 09/10/19 Range/Units 06:23 06:23 11:46 RBC 2.86 L (4.30-5.90) m/uL Hgb 8.7 L (13.0-17.5) gm/dL Hct 25.2 L (39.0-53.0) % RDW 15.7 H (11.5-15.5) % Lymphocytes # 0.4 L (1.0-4.8) k/uL BUN 50 H (9-20) mg/dL Creatinine 1.40 H (0.66-1.25) mg/dL Glucose 162 H (74-99) mg/dL POC Glucose (mg/dL) 193 H (75-99) mg/dL AST 16 L (17-59) U/L Total Protein 5.6 L (6.3-8.2) g/dL Albumin 3.1 L (3.5-5.0) g/dL Microbiology - Last 24 Hours (Table) 09/06/19 07:46 Blood Culture - Preliminary Blood No Growth after 96 hours Assessment and Plan Plan: Assessment: #1. Chest pain, and shortness of breath most likely related to acute exacerb ation of COPD #2. Mild lactic acidosis, of unclear etiology, no evidence of infection, but there is probably possibility of mild purulent tracheobronchitis #3. History of advanced mucinous adenocarcinoma, status post left upper lobectomy at [facility] #4. History of COPD, acute exacerbation #5. Coronary artery disease #6. History of CVA #7. Uncontrolled diabetes mellitus with hyperglycemia #8. History of deep venous thrombosis #9. Hyperlipidemia #10. Hypertension #11. History of myocardial infarction #12. Chronic kidney disease stage III #13. Acute kidney injury, improving Plan: Vital signs are stable, no acute events overnight, blood culture showed no eduard wth, patient is tolerating intubation, no fever or chills, a computed tomography scan of the chest has been reviewed, showing decrease in size of the multiple pulmonary nodules bilaterally, will await further input from a medical oncology in terms of his treatment for his lung cancer. Clinically stable, patient is stable for discharge home today, with follow-up in the office with Dr. Riley. I performed a history & physical examination of the patient and discussed their management with my nurse practitioner, Ada Fraser. I reviewed the nurse practitioner's note and agree with the documented findings and plan of care. Lung sounds are positive for diffuse wheezes throughout the lung wright. The findings and the impression was discussed with the patient. I attest to the documentation by the nurse practitioner. Time with Patient: Less than 30
--- NOTE | 2019-09-10 18:35 | P.PN ---
Subjective Progress Note Date: 09/10/19 Principal diagnosis: Sepsis, acute on chronic kidney disease secondary to [place] medication In follow-up today patient is sitting at the bedside, dressed and ready to go home. He states feeling much better than when he came into the hospital, a little bit weak but he feels he'll get her strength back after being at home for a few days. Patient seriously considered stopping chemotherapy, he is willing to give it another try but, he does not want to come back to the hospital. 10 point review of systems is negative. Appetite is good, independently ambulatory Objective - Vital Signs Vital signs: Vital Signs Temp 97.6 F 09/10/19 12:00 Pulse 74 09/10/19 12:16 Resp 18 09/10/19 12:00 BP 113/62 09/10/19 12:00 Pulse Ox 98 09/10/19 12:00 Intake & Output 09/09/19 09/10/19 09/10/19 18:59 06:59 18:59 Intake Total 1080 880 Output Total 1650 500 Balance 1080 -1650 380 Weight 92.9 kg Intake: Oral 1080 880 Output: Urine 1650 500 Other: Voiding Method Toilet Urinal # Voids 2 1 - Constitutional General appearance: Present: average body habitus, cooperative, no acute distress - EENT Eyes: Present: anicteric sclerae, EOMI ENT: Present: normal oropharynx - Respiratory Respiratory: bilateral: CTA, diminished - Cardiovascular Rhythm: regular Heart sounds: normal: S1, S2 Abnormal Heart Sounds: Present: systolic murmur - Peripheral edema leg Peripheral Edema: bilateral: None - Gastrointestinal General gastrointestinal: Present: normal bowel sounds, soft - Neurologic Neurologic: Present: CNII-XII intact - Musculoskeletal Musculoskeletal: Present: strength equal bilaterally - Psychiatric Psychiatric: Present: A&O x's 3, appropriate affect, intact judgment & insight - Labs CBC & Chem 7: 09/10/19 06:23 09/10/19 06:23 Labs: Abnormal Lab Results - Last 24 Hours (Table) 09/09/19 09/10/19 09/10/19 Range/Units 20:40 06:16 06:23 RBC 2.86 L (4.30-5.90) m/uL Hgb 8.7 L (13.0-17.5) gm/dL Hct 25.2 L (39.0-53.0) % RDW 15.7 H (11.5-15.5) % Lymphocytes # 0.4 L (1.0-4.8) k/uL BUN (9-20) mg/dL Creatinine (0.66-1.25) mg/dL Glucose (74-99) mg/dL POC Glucose (mg/dL) 354 H 200 H (75-99) mg/dL AST (17-59) U/L Total Protein (6.3-8.2) g/dL Albumin (3.5-5.0) g/dL 09/10/19 09/10/19 Range/Units 06:23 11:46 RBC (4.30-5.90) m/uL Hgb (13.0-17.5) gm/dL Hct (39.0-53.0) % RDW (11.5-15.5) % Lymphocytes # (1.0-4.8) k/uL BUN 50 H (9-20) mg/dL Creatinine 1.40 H (0.66-1.25) mg/dL Glucose 162 H (74-99) mg/dL POC Glucose (mg/dL) 193 H (75-99) mg/dL AST 16 L (17-59) U/L Total Protein 5.6 L (6.3-8.2) g/dL Albumin 3.1 L (3.5-5.0) g/dL Microbiology - Last 24 Hours (Table) 09/06/19 07:46 Blood Culture - Preliminary Blood No Growth after 96 hours - Imaging and Cardiology CT scan - chest: report reviewed echo report reviewed Assessment and Plan (1) Acute renal failure Narrative/Plan: Acute on chronic, nephrology evaluated patient. [place] to be related to [place] drugs. Message was sent to Dr. Martin for review. He will see patient prior to next treatment. Plan is for hydration during and postchemotherapy. Dose may need to further be adjusted. Patient only has 2 more chemotherapy doses at which time he will go on maintenance immunotherapy. This was all reviewed with the patient. Patient was reminded that he can discontinue treatment at any time he wants. I just encouraged him to make sure he speaks with Dr. Martin so that he fully understands prognosis and if there are any other potential ways of adjusting treatment or other treatment options. Status: Acute Priority: High Code(s): N17.9 - ACUTE KIDNEY FAILURE, UNSPECIFIED SNOMED Code(s): 59577079 (2) Anemia Narrative/Plan: Overall stable, chemotherapy related. Monitored in the outpatient setting. No acute intervention needed Status: Acute Code(s): D64.9 - ANEMIA, UNSPECIFIED SNOMED Code(s): 773389738 (3) Lung cancer Narrative/Plan: Mixed response on CT scan but, overall mostly positive. Patient still has 2 more cycles of combination chemotherapy and immunotherapy. He will see Dr. Martin prior to his next cycle. Further treatment plans from there. Status: Acute Priority: High Code(s): C34.90 - MALIGNANT NEOPLASM OF UNSP PART OF UNSP BRONCHUS OR LUNG SNOMED Code(s): 690756046
--- NOTE | 2019-09-10 18:56 | PN ---
PROGRESS NOTE Patient is seen for followup for acute kidney injury. Renal function has improved. Patient was also hyperkalemic. His potassium is much better controlled. Blood sugars are slightly better, although occasionally still on the higher side. On examination today, blood pressure was 122/57, heart rate 78 per minute. Patient is afebrile. EXAMINATION OF THE HEART: S1 and S2. EXAMINATION OF LUNGS: Bilateral breath sounds are heard. ABDOMEN: Soft, non-tender. Examination of lower extremities shows no evidence of edema. ENERGY EFFICIENCY ENGINEER exam is grossly intact. Labs show sodium 137, potassium 4.7, BUN 50, creatinine 1.4, hemoglobin 8.7 g/dL. ASSESSMENT: 1. Acute kidney injury, prerenal, currently improved. 2. Hyperkalemia associated with acute kidney injury and hyperglycemia, now improved. 3. Chronic kidney disease, stage III, secondary to carboplatinum-based chemotherapy. Baseline creatinine 1.7 to 1.9. 4. Adenocarcinoma, left lung, status post lobectomy. Maintained on chemotherapy. PLAN: Patient is advised to maintain low-potassium diet. Repeat labs as outpatient in about one week's time and control blood sugars. MMODL / IJN: [id number] /
== END 2019-09-10 17:17 | disposition home or self-care (01) | DRG 190 ==
LOC: EC 05:31 → 3SCARD 07:23
PROVIDERS: ADMIT Hospitalist; ATTEND Hospitalist
DX: J44.1 Chronic obstructive pulmonary disease with (acute) exacerbation (principal); N17.0 Acute kidney failure with tubular necrosis; E87.2 Acidosis; C34.31 Malignant neoplasm of lower lobe, right bronchus or lung; C79.9 Secondary malignant neoplasm of unspecified site; C34.12 Malignant neoplasm of upper lobe, left bronchus or lung; D64.81 Anemia due to antineoplastic chemotherapy; E10.22 Type 1 diabetes mellitus with diabetic chronic kidney disease; E10.65 Type 1 diabetes mellitus with hyperglycemia; E10.649 Type 1 diabetes mellitus with hypoglycemia without coma; E78.5 Hyperlipidemia, unspecified; E87.5 Hyperkalemia; F32.9 Major depressive disorder, single episode, unspecified; F41.9 Anxiety disorder, unspecified; G40.909 Epilepsy, unspecified, not intractable, without status epilepticus; I13.10 Hypertensive heart and chronic kidney disease without heart failure, with stage 1 through stage 4 chronic kidney disease, or unspecified chronic kidney disease; R07.89 Other chest pain; I25.2 Old myocardial infarction; I25.10 Atherosclerotic heart disease of native coronary artery without angina pectoris; Z86.73 Personal history of transient ischemic attack (TIA), and cerebral infarction without residual deficits; M19.90 Unspecified osteoarthritis, unspecified site; N18.3 Chronic kidney disease, stage 3 (moderate); N40.0 Benign prostatic hyperplasia without lower urinary tract symptoms; R59.0 Localized enlarged lymph nodes; T38.0X5A Adverse effect of glucocorticoids and synthetic analogues, initial encounter; T45.1X5A Adverse effect of antineoplastic and immunosuppressive drugs, initial encounter; Z79.01 Long term (current) use of anticoagulants; Z79.4 Long term (current) use of insulin; Z79.899 Other long term (current) drug therapy; Z83.3 Family history of diabetes mellitus; Z86.718 Personal history of other venous thrombosis and embolism; Z87.01 Personal history of pneumonia (recurrent); Z87.891 Personal history of nicotine dependence; Z90.2 Acquired absence of lung [part of]; Z98.42 Cataract extraction status, left eye; Z98.41 Cataract extraction status, right eye; G89.29 Other chronic pain; M54.2 Cervicalgia
CPT/HCPCS: 36415; 71045; 71250; 76770; 80048; 80053; 81003; 82150; 83036; 83605; 83690; 83735; 84484; 85025; 85027; 85610; 85730; 86850; 86900; 86901; 86920; 87040; 93005; 93306; 94640; 94760; 99285

== ENCOUNTER 2019-10-23 08:38 | Inpatient (IN) | payer MEDICARE, OTHER ==
[2019-10-23] MEDS ORDERED: methylPREDNISolone SOD SUCCI 125 MG/2 ML VIAL IV STA (08:52)
[2019-10-23] MEDS ORDERED: SODIUM CHLORIDE 0.9% 1,000 ML IV STA (08:52)
[2019-10-23] MEDS ORDERED: IPRATROPIUM-ALBUTEROL 3 ML NEB INHALATION STA ×3 (08:52→11:11)
[2019-10-23] MEDS ORDERED: PIPERACILLIN-TAZOBACTAM 3.375 GM in SODIUM CHLORIDE 0.9% 100 ML IVPB STA (08:57)
--- NOTE | 2019-10-23 08:57 | ED ---
SOB HPI - General Chief Complaint: Shortness of Breath Stated Complaint: SOB/not feeling well Time Seen by Provider: 10/23/19 08:40 Source: patient, RN notes reviewed, old records reviewed Mode of arrival: ambulatory Limitations: no limitations - History of Present Illness Initial Comments: This is a 73-year-old male history of lung cancer COPD recent admission for acute kidney injury and sepsis who presents with complaints of cough with yellow phlegm fevers chills and sweats and exertional dyspnea as well as dyspnea at rest. Refractory to his home medication. No overt chest pain no nausea vomiting diarrhea no other symptoms reported. MD Complaint: shortness of breath, cough - Related Data Home Medications Medication Instructions Recorded Confirmed Insulin Detemir [Levemir Flextouch] 72 units SQ HS 11/13/18 10/23/19 Ipratropium-Albuterol Nebulize 3 ml INHALATION RT-TID PRN 07/30/19 10/23/19 [Duoneb 0.5 mg-3 mg/3 ml Soln] Simvastatin [Zocor] 40 mg PO DAILY 07/30/19 10/23/19 amLODIPine [Norvasc] 10 mg PO DAILY 07/30/19 10/23/19 levETIRAcetam [Keppra] 500 mg PO BID 07/30/19 10/23/19 Furosemide [Lasix] 40 mg PO BID 10/23/19 10/23/19 Lisinopril 40 mg PO DAILY 10/23/19 10/23/19 Previous Rx's Medication Instructions Recorded Budesonide-Formot 160-4.5 Mcg 2 puff INHALATION RT-BID #1 inhaler 09/10/19 [Symbicort 160-4.5 Mcg Inhaler] Metoprolol Tartrate 25 mg PO BID #60 tab 09/10/19 Rivaroxaban [Xarelto] 15 mg PO DAILY #30 tab 09/10/19 Allergies Allergy/AdvReac Type Severity Reaction Status Date / Time No Known Allergies Allergy Verified 10/23/19 10:36 Review of Systems ROS Statement: Those systems with pertinent positive or pertinent negative responses have been documented in the HPI. ROS Other: All systems not noted in ROS Statement are negative. Past Medical History Past Medical History: Coronary Artery Disease (CAD), Cancer, COPD, CVA/TIA, Diabetes Mellitus, Deep Vein Thrombosis (DVT), Hyperlipidemia, Hypertension, Myocardial Infarction (OR), Osteoarthritis (OA), Pneumonia, Prostate Disorder, Seizure Disorder Additional Past Medical History / Comment(s): COPD, DM-2 BPH, SKY lesion measuring 1.9 x 1.6 cm in size and not showing any metabolic activity, chronic neck/back pain, BPH, TIA & seizure following lung biopsy, HERMEL[place]O Last Myocardial Infarction Date:: 05/24/12 History of Any Multi-Drug Resistant Organisms: None Reported Past Surgical History: Back Surgery, Cholecystectomy, Heart Catheterization, Hernia Repair, Tonsillectomy Additional Past Surgical History / Comment(s): 2011 cardiac cath - treated medically, lower back surgery, bilateral cataract removal, abdominal hernia repair, bronchoscopy. SKY lobe removed. lung biopsy. R lung Wedge biopsy completed 07/23/19. Past Anesthesia/Blood Transfusion Reactions: Previous Problems w/ Anesthesia Additional Past Anesthesia/Blood Transfusion Reaction / Comment(s): Seizure and mini stroke following lung biopsy Past Psychological History: Anxiety, Depression Smoking Status: Former smoker Past Alcohol Use History: None Reported Past Drug Use History: None Reported - Past Family History Mother Family Medical History: No Reported History Father Family Medical History: Diabetes Mellitus Additional Family Medical History / Comment(s): Father of diabetes at the age of 83 yrs. General Exam - General Exam Comments Initial Comments: physical well-developed sec appearing male was awake alert oriented 3 Limitations: no limitations General appearance: alert, anxious, in distress Head exam: Present: atraumatic, normocephalic, normal inspection Eye exam: Present: normal appearance, PERRL, EOMI. Absent: scleral icterus, conjunctival injection, periorbital swelling ENT exam: Present: mucous membranes dry Neck exam: Present: normal inspection, full ROM, other. Absent: tenderness, meningismus, lymphadenopathy Respiratory exam: Present: wheezes, accessory muscle use, decreased breath sounds (no stridor JVD or bruits). Absent: respiratory distress, rales, rhonch i, stridor Cardiovascular Exam: Present: normal rhythm, tachycardia, normal heart sounds. Absent: systolic murmur, diastolic murmur, rubs, gallop, clicks GI/Abdominal exam: Present: soft, normal bowel sounds. Absent: distended, tenderness, guarding, rebound, rigid Extremities exam: Present: normal inspection, full ROM, normal capillary refill. Absent: tenderness, pedal edema, joint swelling, calf tenderness Back exam: Present: normal inspection Neurological exam: Present: alert, oriented X3, CN II-XII intact Psychiatric exam: Present: normal affect, normal mood Skin exam: Present: warm, dry, intact, normal color. Absent: rash Course Vital Signs 10/23/19 10/23/19 10/23/19 08:40 08:59 09:08 Temperature 98.3 F Pulse Rate 101 H 92 94 Respiratory 20 Rate Blood Pressure 140/64 O2 Sat by Pulse 94 L Oximetry 10/23/19 10:00 Temperature Pulse Rate 89 Respiratory 20 Rate Blood Pressure 137/71 O2 Sat by Pulse 98 Oximetry - Reevaluation(s) Reevaluation #1: 10/23/19 11:00 Evaluation patient reveals minimal improvement in his breathing after the initial treatment. Patient does demonstrate hypomagnesemia and will again IV magnesium and addition to repeat updraft. Medical Decision Making - Medical Decision Making I did discuss findings with the patient and previously with his sons or present. Patient does demonstrate COPD exacerbation with bronchitis. He is not responding well to in department treatments he will be admitted for inpatient treatment with consultation by pulmonary medicine. - Lab Data Result diagrams: 10/23/19 09:05 10/23/19 09:05 Lab Results 10/23/19 10/23/19 10/23/19 Range/Units 09:05 09:05 09:05 WBC 10.4 (3.8-10.6) k/uL RBC 2.72 L (4.30-5.90) m/uL Hgb 8.7 L (13.0-17.5) gm/dL Hct 26.2 L (39.0-53.0) % MCV 96.1 D (80.0-100.0) fL MCH 31.8 (25.0-35.0) pg MCHC 33.1 (31.0-37.0) g/dL RDW 17.5 H (11.5-15.5) % Plt Count 100 L D (150-450) k/uL Neutrophils % 87 % Lymphocytes % 5 % Monocytes % 5 % Eosinophils % 1 % Basophils % 1 % Neutrophils # 9.0 H (1.3-7.7) k/uL Lymphocytes # 0.5 L (1.0-4.8) k/uL Monocytes # 0.5 (0-1.0) k/uL Eosinophils # 0.1 (0-0.7) k/uL Basophils # 0.1 (0-0.2) k/uL Poikilocytosis Slight Anisocytosis Slight Macrocytosis Slight PT (9.0-12.0) sec INR (<1.2) APTT (22.0-30.0) sec Sodium 137 (137-145) mmol/L Potassium 4.5 (3.5-5.1) mmol/L Chloride 101 (98-107) mmol/L Carbon Dioxide 21 L (22-30) mmol/L Anion Gap 15 mmol/L BUN 32 H (9-20) mg/dL Creatinine 1.81 H (0.66-1.25) mg/dL Est GFR (CKD-EPI)AfAm 42 (>60 ml/min/1.73 sqM) Est GFR (CKD-EPI)NonAf 37 (>60 ml/min/1.73 sqM) Glucose 277 H (74-99) mg/dL Calcium 9.3 (8.4-10.2) mg/dL Magnesium 1.2 L (1.6-2.3) mg/dL Total Bilirubin 1.2 (0.2-1.3) mg/dL AST 20 (17-59) U/L ALT 13 (4-49) U/L Alkaline Phosphatase 91 (38-126) U/L Creatine Kinase 63 (55-170) U/L Troponin I (0.000-0.034) ng/mL NT-Pro-B Natriuret Pep 616 pg/mL Total Protein 6.5 (6.3-8.2) g/dL Albumin 3.8 (3.5-5.0) g/dL 10/23/19 10/23/19 Range/Units 09:05 09:05 WBC (3.8-10.6) k/uL RBC (4.30-5.90) m/uL Hgb (13.0-17.5) gm/dL Hct (39.0-53.0) % MCV (80.0-100.0) fL MCH (25.0-35.0) pg MCHC (31.0-37.0) g/dL RDW (11.5-15.5) % Plt Count (150-450) k/uL Neutrophils % % Lymphocytes % % Monocytes % % Eosinophils % % Basophils % % Neutrophils # (1.3-7.7) k/uL Lymphocytes # (1.0-4.8) k/uL Monocytes # (0-1.0) k/uL Eosinophils # (0-0.7) k/uL Basophils # (0-0.2) k/uL Poikilocytosis Anisocytosis Macrocytosis PT 10.5 (9.0-12.0) sec INR 1.0 (<1.2) APTT 26.1 (22.0-30.0) sec Sodium (137-145) mmol/L Potassium (3.5-5.1) mmol/L Chloride (98-107) mmol/L Carbon Dioxide (22-30) mmol/L Anion Gap mmol/L BUN (9-20) mg/dL Creatinine (0.66-1.25) mg/dL Est GFR (CKD-EPI)AfAm (>60 ml/min/1.73 sqM) Est GFR (CKD-EPI)NonAf (>60 ml/min/1.73 sqM) Glucose (74-99) mg/dL Calcium (8.4-10.2) mg/dL Magnesium (1.6-2.3) mg/dL Total Bilirubin (0.2-1.3) mg/dL AST (17-59) U/L ALT (4-49) U/L Alkaline Phosphatase (38-126) U/L Creatine Kinase (55-170) U/L Troponin I 0.029 (0.000-0.034) ng/mL NT-Pro-B Natriuret Pep pg/mL Total Protein (6.3-8.2) g/dL Albumin (3.5-5.0) g/dL - EKG Data -: EKG Interpreted by Md EKG shows normal: sinus rhythm (sinus rhythm with PACs rate was 100. Interval 146 QRS duration 84 QT since QTC 340/[address] configuration some artifact present) - Radiology Data Radiology results: report reviewed (I did review the imaging and report no evidence of acute infiltrates.), image reviewed Critical Care Time Critical Care Time: Yes Critical Care Time: 35 minutes of critical care time which includes initial presentation with history physical labs x-rays review of old charting was available. Multiple reevaluation patient responsive therapy initiation of IV medications as well as updrafts. Discussed with the admitting physician Dr. Vera admission orders documentation of the above Disposition Clinical Impression: Acute exacerbation of chronic obstructive pulmonary disease, Acute respiratory distress syndrome in adult, Bronchitis, Renal insufficiency syndrome, Dehydr ation Disposition: ADMITTED IP TO THIS HOSP Condition: Fair Referrals: Renzo Boyer MD [Primary Care Provider] - 1-2 days
[2019-10-23 09:46] LABS: Anisocytosis Slight; Basophils # (A) 0.1 k/uL (0-0.2); Basophils % (A) 1 %; Eosinophils # (A) 0.1 k/uL (0-0.7); Eosinophils % (A) 1 %; HCT 26.2 % (39.0-53.0); HGB 8.7 gm/dL (13.0-17.5); Lymphocytes # (A) 0.5 k/uL (1.0-4.8); Lymphocytes % (A) 5 %; MCH 31.8 pg (25.0-35.0); MCHC 33.1 g/dL (31.0-37.0); MCV 96.1 fL (80.0-100.0); Macrocytosis Slight; Mean Platelet Volume 8.2; Monocytes # (A) 0.5 k/uL (0-1.0); Monocytes % (A) 5 %; Neutrophils % (A) 87 %; Poikilocytosis Slight; RBC 2.72 m/uL (4.30-5.90); RDW 17.5 % (11.5-15.5); WBC 10.4 k/uL (3.8-10.6)
--- NOTE | 2019-10-23 09:49 | XR ---
EXAMINATION TYPE: XR chest 2V DATE OF EXAM: 10/23/2019 COMPARISON: Chest x-ray September 06, 2019. CT chest September 08, 2019. HISTORY: History of lung cancer with difficulty in breathing. TECHNIQUE: Frontal and lateral views of the chest are obtained. FINDINGS: Overlying EKG leads. Chronic parenchymal changes including left suprahilar and basilar scar ring. Left hilar nodularity less well seen on x-ray versus CT. There is no new suspicious focal air s pace opacity, pleural effusion, or pneumothorax seen. The cardiac silhouette size remains within nor mal limits. The osseous structures are intact. Cholecystectomy clips are noted. IMPRESSION: Chronic changes without new acute pulmonary process.
[2019-10-23 09:50] LABS: Platelet Count 100 k/uL (150-450)
[2019-10-23 09:52] LABS: Partial Thromboplastin Time 26.1 sec (22.0-30.0); Prothrombin Time 10.5 sec (9.0-12.0)
[2019-10-23 10:04] LABS: Albumin 3.8 g/dL (3.5-5.0); Calcium 9.3 mg/dL (8.4-10.2); Magnesium 1.2 mg/dL (1.6-2.3); Potassium 4.5 mmol/L (3.5-5.1); Total Bilirubin 1.2 mg/dL (0.2-1.3); Total Protein 6.5 g/dL (6.3-8.2)
[2019-10-23] MEDS: MAGNESIUM SULFATE-D5W PMX 1 GM in DEXTROSE/WATER 1 100ML.BAG IVPB SCH ×2 (11:14→13:40)
[2019-10-23] MEDS: IPRATROPIUM-ALBUTEROL 3 ML NEB INHALATION SCH ×3 (11:25→21:16)
[2019-10-23] MEDS ORDERED: methylPREDNISolone SOD SUCCI 125 MG/2 ML VIAL IV SCH (12:00)
[2019-10-23 12:52] LABS: Glucose,Whole Blood 439 mg/dL (75-99)
[2019-10-23] MEDS ORDERED: INSULIN ASPART (NovoLOG) 100 UNIT/ML VIAL SQ ONE ×3 (13:28→21:50)
[2019-10-23] MEDS: SODIUM CHLORIDE 0.9% 1,000 ML IV SCH (13:43)
--- NOTE | 2019-10-23 15:00 | P.HPIM ---
History of Present Illness 71-year-old pleasant gentleman known history of COPD and adenocarcinoma of the lung receiving chemotherapy With Comments of Shortness of Breath Found to Be in COPD Exacerbation Was Given IV Steroids with Significant Improvement in His Respiratory Status. Chest X-Ray Did Not Show Pneumonia. He'll Also Found to Be in Acute Renal Failure with Serum Creatinine 1.81 and Baseline around 1.2 and Low Magnesium of 1.2. Patient Is on Diuretics and RAFAEL Inhibitor Which Are Contributing to His Renal Dysfunction Patient Denied Any History of Heart Failure and is taking Lasix for his ankle edema which is again probably secondary to Norvasc. Patient systemic steroids will be cut down to twice a day and patient does have history of uncontrolled type 2 diabetes mellitus and his blood sugars are expected to go up because of steroids. Patient wheezing already improved since patient doesn't have any evidence of pneumonia will change the antibiotic to doxycycline from levofloxacin. Patient was given Zosyn in ER. Review of Systems REVIEW OF SYSTEMS: CONSTITUTIONAL: No fever, no malaise, no fatigue. HEENT: No recent visual problems or hearing problems. Denied any sore throat. CARDIOVASCULAR: No chest pain, orthopnea, PND, no palpitations, no syncope. PULMONARY: As mentioned in HPI GASTROINTESTINAL: No diarrhea, no nausea, no vomiting, no abdominal pain. NEUROLOGICAL: No headaches, no weakness, no numbness. HEMATOLOGICAL: Denies any bleeding or petechiae. GENITOURINARY: Denies any burning micturition, frequency, or urgency. MUSCULOSKELETAL/RHEUMATOLOGICAL: Denies any joint pain, swelling, or any muscle pain. ENDOCRINE: Denies any polyuria or polydipsia. The rest of the 14-point review of systems is negative. Past Medical History Past Medical History: Coronary Artery Disease (CAD), Cancer, COPD, CVA/TIA, Diabetes Mellitus, Deep Vein Thrombosis (DVT), Hyperlipidemia, Hypertension, Myocardial Infarction (CA), Osteoarthritis (OA), Pneumonia, Prostate Disorder, Seizure Disorder Additional Past Medical History / Comment(s): 07/2018 L lung cancer with left upper lobectomy/IV chemo but pt states he quit taking chemo early then diagnosed with R lower lobe cancer in August 2019 and had wedge resection and started ch emo again- every 3 weeks with last dose 10/17/19, bronchitis, TIA and seizure after bronchoscopy in 2017, DVT L leg, IDDM type II, chronic cervical/back pain, chronic hyperkalemia, occasional bilateral ankle edema, BPH, acute kidney injury. Last Myocardial Infarction Date:: 05/24/12 History of Any Multi-Drug Resistant Organisms: None Reported Past Surgical History: Back Surgery, Cholecystectomy, Heart Catheterization, Her shiv Repair, Tonsillectomy Additional Past Surgical History / Comment(s): 2017 Bronchoscopy with bx, 2017 L upper lobectomy at [facility], August 2019 R lower lung wedge resection, low back surgery, 2011 cardiac cath-treat medically, umbilical hernia repair, bilateral cataract removals Past Anesthesia/Blood Transfusion Reactions: Previous Problems w/ Anesthesia Additional Past Anesthesia/Blood Transfusion Reaction / Comment(s): Seizure and mini stroke following lung biopsy Smoking Status: Former smoker - Past Family History Mother Family Medical History: No Reported History Additional Family Medical History / Comment(s): Mother was healthy Father Family Medical History: Diabetes Mellitus Additional Family Medical History / Comment(s): Father of diabetes at the age of 83 yrs. Medications and Allergies Home Medications Medication Instructions Recorded Confirmed Type Insulin Detemir [Levemir Flextouch] 72 units SQ HS 11/13/18 10/23/19 History Ipratropium-Albuterol Nebulize 3 ml INHALATION RT-TID PRN 07/30/19 10/23/19 History [Duoneb 0.5 mg-3 mg/3 ml Soln] Simvastatin [Zocor] 40 mg PO DAILY 07/30/19 10/23/19 History amLODIPine [Norvasc] 10 mg PO DAILY 07/30/19 10/23/19 History levETIRAcetam [Keppra] 500 mg PO BID 07/30/19 10/23/19 History Budesonide-Formot 160-4.5 Mcg 2 puff INHALATION RT-BID #1 inhaler 09/10/19 10/23/19 Rx [Symbicort 160-4.5 Mcg Inhaler] Metoprolol Tartrate 25 mg PO BID #60 tab 09/10/19 10/23/19 Rx Rivaroxaban [Xarelto] 15 mg PO DAILY #30 tab 09/10/19 10/23/19 Rx Furosemide [Lasix] 40 mg PO BID 10/23/19 10/23/19 History Lisinopril 40 mg PO DAILY 10/23/19 10/23/19 History Allergies Allergy/AdvReac Type Severity Reaction Status Date / Time No Known Allergies Allergy Verified 10/23/19 10:36 Physical Exam Vitals: Vital Signs Temp Pulse Resp BP Pulse Ox 10/23/19 12:00 90 130/72 10/23/19 11:39 90 10/23/19 11:25 85 10/23/19 11:00 86 20 135/69 98 10/23/19 10:00 89 20 137/71 98 10/23/19 09:08 94 10/23/19 08:59 92 10/23/19 08:40 98.3 F 101 H 20 140/64 94 L Intake and Output 10/22/19 10/23/19 10/23/19 22:59 06:59 14:59 Other: Weight 87.09 kg PHYSICAL EXAMINATION: GENERAL: The patient is alert and oriented x3, not in any acute distress. Well developed, well nourished. HEENT: Pupils are round and equally reacting to light. EOMI. No scleral icterus. No conjunctival pallor. Normocephalic, atraumatic. No pharyngeal erythema. No thyromegaly. CARDIOVASCULAR: S1 and S2 present. No murmurs, rubs, or gallops. PULMONARY: Mild expiratory wheezing on exam fairly good air entry into bilateral lung wright ABDOMEN: Soft, nontender, nondistended, normoactive bowel sounds. No palpable organomegaly. MUSCULOSKELETAL: No joint swelling or deformity. EXTREMITIES: No cyanosis, clubbing, or pedal edema. NEUROLOGICAL: Gross neurological examination did not reveal any focal deficits. SKIN: No rashes. Results CBC & Chem 7: 10/23/19 09:05 10/23/19 09:05 Labs: Abnormal Lab Results - Last 24 Hours (Table) 10/23/19 10/23/19 10/23/19 Range/Units 09:05 09:05 12:49 RBC 2.72 L (4.30-5.90) m/uL Hgb 8.7 L (13.0-17.5) gm/dL Hct 26.2 L (39.0-53.0) % RDW 17.5 H (11.5-15.5) % Plt Count 100 L D (150-450) k/uL Neutrophils # 9.0 H (1.3-7.7) k/uL Lymphocytes # 0.5 L (1.0-4.8) k/uL Carbon Dioxide 21 L (22-30) mmol/L BUN 32 H (9-20) mg/dL Creatinine 1.81 H (0.66-1.25) mg/dL Glucose 277 H (74-99) mg/dL POC Glucose (mg/dL) 439 H (75-99) mg/dL Magnesium 1.2 L (1.6-2.3) mg/dL Thrombosis Risk Factor Assmnt - Choose All That Apply Any of the Below Risk Factors Present?: Yes Other Risk Factors: Yes Each Risk Factor Represents 2 Points: Age 61-74 years, Malignancy Each Risk Factor Represents 3 Points: History of DVT/PE Other congenital or acquired thrombophilia - If yes, enter type in comment: No Thrombosis Risk Factor Assessment Total Risk Factor Score: 7 Thrombosis Risk Factor Assessment Level: High Risk Assessment and Plan Plan: -COPD exacerbation: Patient will continue on systemic steroids and inhalation treatments. -Acute renal failure on chronic kidney disease stage II to 3 acute renal failure secondary to diuretics and RAFAEL inhibitor which will be discontinued patient will be continued on IV fluids -Type 2 diabetes mellitus uncontrolled and elevated blood sugars continue with his home regimen along with the sliding scale for systemic steroids his blood sugars are expected to go up because of systemic steroids -Anemia appears to be chronic from his lung cancer, anemia of chronic disease -Thrombocytopenia secondary to chemotherapy -Coronary artery disease -DVT in the past for which patient is on anticoagulation which will be continued -Hyperlipidemia -Hypertension hold off on RAFAEL inhibitor probably may need to switch the Norvasc as well because of his concerns of pedal edema patient will be advised to use compression socks rather than Lasix which is leading to renal dysfunction in his situation [place]-metastatic And have an seizure disorder patient was resumed on home medications for this.
[2019-10-23] MEDS ORDERED: FUROSEMIDE 40 MG TAB PO SCH (16:00)
--- NOTE | 2019-10-23 16:12 | P.CNPUL ---
History of Present Illness Consult date: 10/23/19 Reason for consult: dyspnea, COPD History of present illness: Is a very pleasant 71-year-old male patient known history of COPD and metastatic non-small cell adenocarcinoma of the lung. He also has hypertension, hyperlipidemia, diabetes mellitus type 2 and previous history of DVT of the left lower extremity for which is on long-term anticoagulation with alto. The patient has a preserved LV function with an ejection fraction of 70% and he does not have any significant valvular heart disease. He has borderline pulmonary hypertension. The patient has been in our office on a regular basis. He has undergone previous thoracotomy and lobectomy for non-small cell lung cancer and subsequently he became metastatic. Since then, the patient has been on immunotherapy and the patient has received a total of 4 different sessions every 3 weeks. The CAT scan from 06/25/2019 09/08/2019 was reviewed and there is improvement in the size and number of the pulmonary nodules that were scattered in the bilateral lung wright. Please refer to the official report. Meanwhile, the patient has gotten weak and lethargic while receiving his immunotherapy. He came into the emergency department toda complaining of generalized weakness, sore throat, dehydration, generalized weakness, Increased Shortness of Breath and Wheezing. A Chest X-Ray Was Done That Showed No Evidence of Any Acute Pneumonia. His Creatinine Was at 1.8 However He Does Have Some Background Kidney Failure and the patient has a component of chronic kidney disease stage III,. He is currently receiving IV fluids. He'll be admitted to the medical floor for fluids and this was attributed to systemic steroids. He was placed on IV Solu-Medrol 40 mg every 12 hours. He is also placed on Levemir insulin 72 units in addition to a NovoLog scale. Review of Systems Constitutional Constitutional: no fever, no night sweats, no significant weight gain, no significant weight loss, tthe patient is having increased tiredness. Eyes Eyes: no dry eyes, no vision change, no irritation ENMT Ears: no difficulty hearing, no ear pain Nose: no frequent nosebleeds, no nose problems, no sinus problems Mouth/Throat: no sore throat, no bleeding gums, no snoring, no dry mouth, no mouth ulcers, no oral abnormalities, no teeth problems Cardiovascular Cardiovascular: no chest pain, no arm pain on exertion, incentive shortness of breath when walking, no shortness of breath when lying down, no palpitations, no known heart murmur Respiratory Respiratory: increased cough, ith some sputum production and wheezing. no sleep apnea, shortness of breathmainly with exertion non-addressed. Gastrointestinal Gastrointestinal: no abdominal pain, no nausea, no vomiting, no constipation, normal appetite, no diarrhea, not vomiting blood, no dyspepsia, no GERD Genitourinary Genitourinary: no incontinence, no difficulty urinating, no hematuria, no increased frequency Musculoskeletal Musculoskeletal: no muscle aches,positive muscle weakness, no arthralgias/joint pain, no back pain, swelling in the extremities Integumentary Skin: no abnormal mole, no jaundice, no rashes, no laceration Neurologic Neurologic: no loss of consciousness, generalized weakness, no numbness, no seizures, no dizziness, no migraines, no headaches, no tremor Psychiatric Psych: no depression, no sleep disturbances, feeling safe in a relationship, no alcohol abuse, no anxiety, no hallucinations, no suicidal thoughts Endocrine Endocrine: fatigue Hematologic/Lymphatic Hematologic/Lymphatic no swollen glands, no bruising, no excessive bleeding Allergic/Immunologic Allergy/Immunologic: no runny nose, no sinus pressure, no itching, no hives, no frequent sneezing Past Medical History Past Medical History: Coronary Artery Disease (CAD), Cancer, COPD, CVA/TIA, Diabetes Mellitus, Deep Vein Thrombosis (DVT), Hyperlipidemia, Hypertension, Myocardial Infarction (SD), Osteoarthritis (OA), Pneumonia, Prostate Disorder, Seizure Disorder Additional Past Medical History / Comment(s): 07/2018 L lung cancer with left u pper lobectomy/IV chemo but pt states he quit taking chemo early then diagnosed with R lower lobe cancer in August 2019 and had wedge resection and started immunotherapy- every 3 weeks with last dose 10/17/19, bronchitis, TIA and seizure after bronchoscopy in 2017, DVT L leg, IDDM type II, chronic cervical/back pain, diabetes mellitus, occasional bilateral ankle edema, BPH, chronic stage III kidney disease Last Myocardial Infarction Date:: 05/24/12 History of Any Multi-Drug Resistant Organisms: None Reported Past Surgical History: Back Surgery, Cholecystectomy, Heart Catheterization, Hernia Repair, Tonsillectomy Additional Past Surgical History / Comment(s): 2017 Bronchoscopy with bx, 2017 L upper lobectomy at [facility], August 2019 R lower lung wedge resection, low back surgery, 2011 cardiac cath-treat medically, umbilical hernia repair, bilateral cataract removals Past Anesthesia/Blood Transfusion Reactions: Previous Problems w/ Anesthesia Additional Past Anesthesia/Blood Transfusion Reaction / Comment(s): Seizure and mini stroke following lung biopsy Smoking Status: Former smoker - Past Family History Mother Family Medical History: No Reported History Additional Family Medical History / Comment(s): Mother was healthy Father Family Medical History: Diabetes Mellitus Additional Family Medical History / Comment(s): Father of diabetes at the age of 83 yrs. Medications and Allergies Home Medications Medication Instructions Recorded Confirmed Type Insulin Detemir [Levemir Flextouch] 72 units SQ HS 11/13/18 10/23/19 History Ipratropium-Albuterol Nebulize 3 ml INHALATION RT-TID PRN 07/30/19 10/23/19 History [Duoneb 0.5 mg-3 mg/3 ml Soln] Simvastatin [Zocor] 40 mg PO DAILY 07/30/19 10/23/19 History amLODIPine [Norvasc] 10 mg PO DAILY 07/30/19 10/23/19 History levETIRAcetam [Keppra] 500 mg PO BID 07/30/19 10/23/19 History Budesonide-Formot 160-4.5 Mcg 2 puff INHALATION RT-BID #1 inhaler 09/10/19 10/23/19 Rx [Symbicort 160-4.5 Mcg Inhaler] Metoprolol Tartrate 25 mg PO BID #60 tab 09/10/19 10/23/19 Rx Rivaroxaban [Xarelto] 15 mg PO DAILY #30 tab 09/10/19 10/23/19 Rx Furosemide [Lasix] 40 mg PO BID 10/23/19 10/23/19 History Lisinopril 40 mg PO DAILY 10/23/19 10/23/19 History Allergies Allergy/AdvReac Type Severity Reaction Status Date / Time No Known Allergies Allergy Verified 10/23/19 10:36 Physical Exam Vitals: Vital Signs Temp Pulse Resp BP Pulse Ox 10/23/19 12:00 90 130/72 10/23/19 11:39 90 10/23/19 11:25 85 10/23/19 11:00 86 20 135/69 98 10/23/19 10:00 89 20 137/71 98 10/23/19 09:08 94 10/23/19 08:59 92 10/23/19 08:40 98.3 F 101 H 20 140/64 94 L Intake and Output 10/23/19 10/23/19 10/23/19 06:59 14:59 22:59 Other: Weight 87.09 kg ppearance is calm and comfortable likely distress looks a bit weak and tired Head exam was generally normal. There was no scleral icterus or corneal arcus. Mucous membranes were moist. Neck was supple and without jugular venous distension, thyromegaly, or carotid bruits. Carotids were easily palpable bilaterally. There was no adenopathy. Lungs sounds are diminished bilaterally along with some few scattered expiratory wheezes throughout the lung wright. Cardiac exam revealed the PMI to be normally situated and sized. The rhythm was regular and no extrasystoles were noted during several minutes of auscultation. The first and second heart sounds were normal and physiologic splitting of the second heart sound was noted. There were no murmurs, rubs, clicks, or gallops. Abdominal exam revealed normal bowel sounds. The abdomen was soft, non-tender, and without masses, organomegaly, or appreciable enlargement of the abdominal aorta. Examination of the extremities revealed easily palpable radial, femoral and pedal pulses. There was no cyanosis, clubbing or edema. Examination of the skin revealed no evidence of significant rashes, suspicious appearing nevi or other concerning lesions. neurologically the patient is awake and alert and there is no focal neurological deficits. He does have some motor weakness which is quite generalized this point in time. Results - Laboratory Findings CBC and BMP: 10/23/19 09:05 10/23/19 09:05 PT/INR, D-dimer PT 10.5 sec (9.0-12.0) 10/23/19 09:05 INR 1.0 (<1.2) 10/23/19 09:05 Abnormal lab findings: Abnormal Labs 10/23/19 10/23/19 10/23/19 09:05 09:05 12:49 RBC 2.72 L Hgb 8.7 L Hct 26.2 L RDW 17.5 H Plt Count 100 L D Neutrophils # 9.0 H Lymphocytes # 0.5 L Carbon Dioxide 21 L BUN 32 H Creatinine 1.81 H Glucose 277 H POC Glucose (mg/dL) 439 H Magnesium 1.2 L - Diagnostic Findings Chest x-ray: image reviewed Assessment and Plan Plan: 1 metastatic adenocarcinoma of the lung currently receiving immunotherapy. Based on the most recent CAT scan of the chest that was done September 2019, the patient was having adequate response with diminution of the pulmonary nodules noted. 2 generalized weakness and dehydration likely secondary to immunotherapy 3 COPD with an FEV1 of 47% of predicted 4 diabetes mellitus with steroid-induced hyperglycemia 5 hypertension 6 hyperlipidemia 7 previous history of DVT of the left lower extremity currently on Xarelto 8 history of left upper lobe resection for non-small cell lung cancer 9 history of wedge resection of a pulmonary nodule in the right lung confirming metastatic disease with adenocarcinoma 10 chronic stage III kidney disease, possibly due to a component of diabetic nephropathy 11 degenerative arthritis of the cervical spine 12 Anemia of chronic disease plan Obtain a follow-up CAT scan of the chest without contrast to assess the progression of pulmonary nodules This continued IV Solu-Medrol and put the patient on short course of prednisone burst taper. Would like to avoid systemic steroids as the patient is currently on immunotherapy Monitor blood sugar and cover the patient was titrated coverage We will hydrate the patient IV fluid Continue Xarelto Monitor blood work and electrolytes We'll continue to follow.
--- NOTE | 2019-10-23 16:32 | CT ---
EXAMINATION TYPE: CT chest wo con DATE OF EXAM: 10/23/2019 COMPARISON: CT chest September 08, 2019 HISTORY: Shortness of breath. History of lung cancer. CT DLP: 477.6 mGycm. Automated Exposure Control for Dose Reduction was Utilized. TECHNIQUE: CT scan of the thorax is performed without IV contrast. FINDINGS: LUNGS: Mild to moderate underlying emphysematous change with elevated left hemidiaphragm redemonstrat ed. New reticulonodular infiltrates inferior right upper lobe near axial image 30 laterally. Some add itional patchy reticulonodular infiltrate in the right lower lobe posteriorly axial image 47 similar infiltrates also noted superior aspect left lower lobe axial image 26 for reference. No pleural effus ion or pneumothorax. No new greater than 5 mm nodules. Prior visualize nodules decreased in size. For medial right basilar nodule measures 9 mm current study image 54 versus 19 mm prior study image 50. Linear scarring left lung base redemonstrated. Surgical change medial right lung base noted. MEDIASTINUM: Lack of IV contrast is noted to limit evaluation for mediastinal and especially hilar ad enopathy. There are no definitive greater than 1 cm hilar or mediastinal lymph nodes. No cardiomega ly or pericardial effusion is seen. Prominent pulmonary arteries suggesting underlying pulmonary hype rtension. Moderate to severe [place] coronary artery calcification which is noted marked underlying co ronary artery disease. OTHER: Cholecystectomy clips. Fairly severe Fatty-replaced atrophy of pancreas. Fatty infiltration of liver. IMPRESSION: Improving basilar nodules. New multifocal reticulonodular infiltrates, correlate for atyp ical infectious process.
[2019-10-23 17:02] LABS: Glucose,Whole Blood >600 mg/dL (75-99)
[2019-10-23] MEDS: INSULIN ASPART (NovoLOG) 100 UNIT/ML VIAL SQ SCH ×2 (17:21→22:10)
[2019-10-23 18:22] LABS: Glucose,Whole Blood >600 mg/dL (75-99)
[2019-10-23 20:38] LABS: Glucose,Whole Blood >600 mg/dL (75-99)
[2019-10-23 20:38] LABS: Glucose,Whole Blood >600 mg/dL (75-99)
[2019-10-23] MEDS ORDERED: methylPREDNISolone SOD SUCCI 40 MG/ML 1 ML VIAL IV SCH (21:00)
[2019-10-23] MEDS ORDERED: INSULIN DETEMIR (LEVEMIR) 100 UNIT/ML SYR SQ SCH (21:00)
[2019-10-23] MEDS: levETIRAcetam 500 MG TAB PO SCH (22:11)
[2019-10-23] MEDS: METOPROLOL TARTRATE 25 MG TAB PO SCH (22:12)
[2019-10-23] MEDS: DOXYCYCLINE 100 MG CAP PO SCH (22:21)
[2019-10-24] MEDS: IPRATROPIUM-ALBUTEROL 3 ML NEB INHALATION SCH ×7 (00:19→23:45)
[2019-10-24 00:47] LABS: Glucose,Whole Blood 588 mg/dL (75-99)
[2019-10-24] MEDS ORDERED: INSULIN ASPART (NovoLOG) 100 UNIT/ML VIAL SQ ONE (01:39)
[2019-10-24 03:42] LABS: Glucose,Whole Blood 548 mg/dL (75-99)
[2019-10-24] MEDS: SODIUM CHLORIDE 0.9% 1,000 ML IV SCH ×3 (04:53→17:54)
[2019-10-24 07:22] LABS: Glucose,Whole Blood 489 mg/dL (75-99)
[2019-10-24] MEDS: ATORVASTATIN 20 MG TAB PO SCH (07:49)
[2019-10-24] MEDS: levETIRAcetam 500 MG TAB PO SCH ×2 (07:49→20:39)
[2019-10-24] MEDS: amLODIPine 10 MG TAB PO SCH (07:49)
[2019-10-24] MEDS: DOXYCYCLINE 100 MG CAP PO SCH (07:50)
[2019-10-24] MEDS: predniSONE 10 MG TAB PO SCH ×2 (07:51→07:55)
[2019-10-24] MEDS: INSULIN ASPART (NovoLOG) 100 UNIT/ML VIAL SQ SCH ×6 (07:51→21:50)
[2019-10-24] MEDS: RIVAROXABAN 15 MG TAB PO SCH (07:51)
[2019-10-24] MEDS: METOPROLOL TARTRATE 25 MG TAB PO SCH ×2 (07:51→20:40)
[2019-10-24] MEDS ORDERED: LEVOFLOXACIN 500 MG TAB PO SCH ×2 (09:00→16:00)
[2019-10-24] MEDS ORDERED: LISINOPRIL 20 MG TAB PO SCH (09:00)
[2019-10-24 09:13] LABS: Anisocytosis Slight; Basophils % (A) 0 %; Eosinophils % (A) 0 %; HCT 22.6 % (39.0-53.0); HGB 7.7 gm/dL (13.0-17.5); Lymphocytes # (A) 0.2 k/uL (1.0-4.8); Lymphocytes % (A) 2 %; MCH 32.6 pg (25.0-35.0); MCHC 33.9 g/dL (31.0-37.0); MCV 96.1 fL (80.0-100.0); Macrocytosis Slight; Mean Platelet Volume 9.5; Monocytes # (A) 0.4 k/uL (0-1.0); Monocytes % (A) 4 %; Neutrophils # (A) 10.8 k/uL (1.3-7.7); Neutrophils % (A) 93 %; Poikilocytosis Slight; RBC 2.35 m/uL (4.30-5.90); RDW 17.6 % (11.5-15.5); WBC 11.6 k/uL (3.8-10.6)
[2019-10-24 09:38] LABS: Albumin 3.3 g/dL (3.5-5.0); Calcium 9.2 mg/dL (8.4-10.2); Potassium 4.3 mmol/L (3.5-5.1); Total Bilirubin 0.4 mg/dL (0.2-1.3); Total Protein 5.8 g/dL (6.3-8.2)
[2019-10-24 10:16] LABS: Platelet Count 69 k/uL (150-450)
[2019-10-24 10:17] LABS: Polychromasia Present
[2019-10-24 10:36] VITALS: BMI 25.3
[2019-10-24 11:42] LABS: Glucose,Whole Blood 441 mg/dL (75-99)
--- NOTE | 2019-10-24 14:34 | P.PN ---
Subjective Progress Note Date: 10/24/19 Principal diagnosis: 71-year-old pleasant gentleman known history of COPD and adenocarcinoma of the lung receiving chemotherapy With Comments of Shortness of Breath Found to Be in COPD Exacerbation Was Given IV Steroids with Significant Improvement in His Respiratory Status. Chest X-Ray Did Not Show Pneumonia. He'll Also Found to Be in Acute Renal Failure with Serum Creatinine 1.81 and Baseline around 1.2 and Low Magnesium of 1.2. Patient Is on Diuretics and RAFAEL Inhibitor Which Are Contributing to His Renal Dysfunction Patient Denied Any History of Heart Failure and is taking Lasix for his ankle edema which is again probably secondary to Norvasc. Patient systemic steroids will be cut down to twice a day and patient does have history of uncontrolled type 2 diabetes mellitus and his blood sugars are expected to go up because of steroids. Patient wheezing already improved since patient doesn't have any evidence of pneumonia will change the antibiotic to doxycycline from levofloxacin. Patient was given Zosyn in ER. 10/24/2019 Patient is sitting up in the bed in no acute distress. Patient refusing oral prednisone and steroids as he feels this is what is making his blood sugars elevated. Patient's blood sugars continue to be elevated and adjustments to insulin have been made. Discussed with the patient at length about tight glycemic control and that patient will need an increase in insulin with meals, sliding scale, and an increase in his long-acting insulin. Most recent hemoglobin A1c in September of this year was 11.5. Family at the bedside verbal ized understanding of monitoring blood sugars closely and following up with primary care provider in the outpatient setting. Patient states that his breathing has improved slightly and is currently denying shortness of breath at this time. Patient denies any chest pain or palpitations at this time. Objective - Vital Signs Vital signs: Vital Signs Temp 97.7 F 10/24/19 04:40 Pulse 82 10/24/19 11:55 Resp 20 10/24/19 04:40 BP 132/50 10/24/19 04:40 Pulse Ox 98 10/24/19 04:40 Intake & Output 10/23/19 10/24/19 10/24/19 18:59 06:59 18:59 Intake Total 300 480 Balance 300 480 Weight 87.09 kg 87.09 kg Intake: Oral 300 480 Other: Voiding Method Toilet Toilet # Voids 1 - Exam GENERAL: The patient is alert and oriented x3, not in any acute distress. Well developed, well nourished. HEENT: Pupils are round and equally reacting to light. EOMI. No scleral icterus. No conjunctival pallor. Normocephalic, atraumatic. No pharyngeal erythema. No thyromegaly. CARDIOVASCULAR: S1 and S2 present. No murmurs, rubs, or gallops. PULMONARY: Minimal expiratory wheezing on exam fairly good air entry into bilateral lung wright ABDOMEN: Soft, nontender, nondistended, normoactive bowel sounds. No palpable organomegaly. MUSCULOSKELETAL: No joint swelling or deformity. EXTREMITIES: No cyanosis, clubbing, or pedal edema. NEUROLOGICAL: Gross neurological examination did not reveal any focal deficits. SKIN: No rashes. - Labs CBC & Chem 7: 10/24/19 08:49 10/24/19 08:49 Labs: Abnormal Lab Results - Last 24 Hours (Table) 10/23/19 10/23/19 10/23/19 Range/Units 12:49 17:00 17:15 WBC (3.8-10.6) k/uL RBC (4.30-5.90) m/uL Hgb (13.0-17.5) gm/dL Hct (39.0-53.0) % RDW (11.5-15.5) % Plt Count (150-450) k/uL Neutrophils # (1.3-7.7) k/uL Lymphocytes # (1.0-4.8) k/uL Sodium (137-145) mmol/L BUN (9-20) mg/dL Creatinine (0.66-1.25) mg/dL Glucose 572 H* (74-99) mg/dL POC Glucose (mg/dL) 439 H >600 H (75-99) mg/dL Total Protein (6.3-8.2) g/dL Albumin (3.5-5.0) g/dL 10/23/19 10/23/19 10/23/19 Range/Units 18:22 20:30 20:31 WBC (3.8-10.6) k/uL RBC (4.30-5.90) m/uL Hgb (13.0-17.5) gm/dL Hct (39.0-53.0) % RDW (11.5-15.5) % Plt Count (150-450) k/uL Neutrophils # (1.3-7.7) k/uL Lymphocytes # (1.0-4.8) k/uL Sodium (137-145) mmol/L BUN (9-20) mg/dL Creatinine (0.66-1.25) mg/dL Glucose (74-99) mg/dL POC Glucose (mg/dL) >600 H >600 H >600 H (75-99) mg/dL Total Protein (6.3-8.2) g/dL Albumin (3.5-5.0) g/dL 10/24/19 10/24/19 10/24/19 Range/Units 00:44 03:41 07:19 WBC (3.8-10.6) k/uL RBC (4.30-5.90) m/uL Hgb (13.0-17.5) gm/dL Hct (39.0-53.0) % RDW (11.5-15.5) % Plt Count (150-450) k/uL Neutrophils # (1.3-7.7) k/uL Lymphocytes # (1.0-4.8) k/uL Sodium (137-145) mmol/L BUN (9-20) mg/dL Creatinine (0.66-1.25) mg/dL Glucose (74-99) mg/dL POC Glucose (mg/dL) 588 H 548 H 489 H (75-99) mg/dL Total Protein (6.3-8.2) g/dL Albumin (3.5-5.0) g/dL 10/24/19 10/24/19 10/24/19 Range/Units 08:49 08:49 11:40 WBC 11.6 H (3.8-10.6) k/uL RBC 2.35 L (4.30-5.90) m/uL Hgb 7.7 L (13.0-17.5) gm/dL Hct 22.6 L (39.0-53.0) % RDW 17.6 H (11.5-15.5) % Plt Count 69 L (150-450) k/uL Neutrophils # 10.8 H (1.3-7.7) k/uL Lymphocytes # 0.2 L (1.0-4.8) k/uL Sodium 133 L (137-145) mmol/L BUN 43 H (9-20) mg/dL Creatinine 1.89 H (0.66-1.25) mg/dL Glucose 437 H (74-99) mg/dL POC Glucose (mg/dL) 441 H (75-99) mg/dL Total Protein 5.8 L (6.3-8.2) g/dL Albumin 3.3 L (3.5-5.0) g/dL Microbiology - Last 24 Hours (Table) 10/23/19 09:05 Blood Culture - Preliminary Blood No Growth after 24 hours Assessment and Plan Assessment: -COPD exacerbation: Patient will continue on systemic steroids and inhalation treatments. Currently patient is refusing steroids. Wheezing has improved. -Acute renal failure on chronic kidney disease stage II to 3 acute renal failure secondary to diuretics and RAFAEL inhibitor which will be discontinued patient will be continued on IV fluids. Creatinine today slightly elevated at 1.89, will repeat a.m. labs -Type 2 diabetes mellitus uncontrolled and elevated blood sugars continue with his home regimen along with the sliding scale for systemic steroids his blood sugars are expected to go up because of systemic steroids. Insulin adjustments have been made and will add short acting insulin with meals in addition to sliding scale -Anemia appears to be chronic from his lung cancer, anemia of chronic disease -Thrombocytopenia secondary to chemotherapy -Coronary artery disease -DVT in the past for which patient is on anticoagulation which will be continued -Hyperlipidemia -Hypertension hold off on RAFAEL inhibitor probably may need to switch the Norvasc as well because of his concerns of pedal edema patient will be advised to use compression socks rather than Lasix which is leading to renal dysfunction in his situation -seizure disorder patient was resumed on home medications for this.
--- NOTE | 2019-10-24 15:10 | P.PN ---
Subjective Progress Note Date: 10/24/19 Is a very pleasant 71-year-old male patient known history of COPD and metastatic non-small cell adenocarcinoma of the lung. He also has hypertension, hyperlipidemia, diabetes mellitus type 2 and previous history of DVT of the left lower extremity for which is on long-term anticoagulation with alto. The patient has a preserved LV function with an ejection fraction of 70% and he does not have any significant valvular heart disease. He has borderline pulmonary hypertension. The patient has been in our office on a regular basis. He has undergone previous thoracotomy and lobectomy for non-small cell lung cancer and subsequently he became metastatic. Since then, the patient has been on immunotherapy and the patient has received a total of 4 different sessions every 3 weeks. The CAT scan from 06/25/2019 09/08/2019 was reviewed and there is improvement in the size and number of the pulmonary nodules that were scattered in the bilateral lung wright. Please refer to the official report. Meanwhile, the patient has gotten weak and lethargic while receiving his immunotherapy. He came into the emergency department toda complaining of generalized weakness, sore throat, dehydration, generalized weakness, Increased Shortness of Breath and Wheezing. A Chest X-Ray Was Done That Showed No Evidence of Any Acute Pneumonia. His Creatinine Was at 1.8 However He Does Have Some Background Kidney Failure and the patient has a component of chronic kidney disease stage III,. He is currently receiving IV fluids. He'll be admitted to the medical floor for fluids and this was attributed to systemic steroids. He was placed on IV Solu-Medrol 40 mg every 12 hours. He is also placed on Levemir insulin 72 units in addition to a NovoLog scale. Today's evaluation of 10/24/2019, the patient feels good and has no specific complaints. A repeat CAT scan of the chest was done yesterday and the CAT scan shows improvement in the pulmonary nodules that were discussed earlier. There is some new multifocal interstitial changes consistent with atypical pulmonary infection and this probably could've contributed to the patient's worsening shortness of breath. He is currently on doxycycline. He did not take his prednisone today due to concerns of his elevated blood sugar. Insulin dose has been adjusted.the patient is currently up to 90 units of Levemir insulin in addition to 15 units of NovoLog with meals plus a sliding scale coverage. He is not taking any form of systemic steroids for now. Objective - Vital Signs Vital signs: Vital Signs Temp 97.0 F L 10/24/19 14:02 Pulse 79 10/24/19 14:02 Resp 16 10/24/19 14:02 BP 137/65 10/24/19 14:02 Pulse Ox 98 10/24/19 14:02 Intake & Output 10/23/19 10/24/19 10/24/19 18:59 06:59 18:59 Intake Total 300 480 Balance 300 480 Weight 87.09 kg 87.09 kg Intake: Oral 300 480 Other: Voiding Method Toilet Toilet # Voids 1 2 - Exam ppearance is calm and comfortable likely distress looks a bit weak and tired Head exam was generally normal. There was no scleral icterus or corneal arcus. Mucous membranes were moist. Neck was supple and without jugular venous distension, thyromegaly, or carotid bruits. Carotids were easily palpable bilaterally. There was no adenopathy. Lungs sounds are diminished bilaterally along with some few scattered expiratory wheezes throughout the lung wright. Cardiac exam revealed the PMI to be normally situated and sized. The rhythm was regular and no extrasystoles were noted during several minutes of auscultation. The first and second heart sounds were normal and physiologic splitting of the second heart sound was noted. There were no murmurs, rubs, clicks, or gallops. Abdominal exam revealed normal bowel sounds. The abdomen was soft, non-tender, a nd without masses, organomegaly, or appreciable enlargement of the abdominal aorta. Examination of the extremities revealed easily palpable radial, femoral and pedal pulses. There was no cyanosis, clubbing or edema. Examination of the skin revealed no evidence of significant rashes, suspicious appearing nevi or other concerning lesions. neurologically the patient is awake and alert and there is no focal neurological deficits. He does have some motor weakness which is quite generalized this poin t in time. - Labs CBC & Chem 7: 10/24/19 08:49 10/24/19 08:49 Labs: Abnormal Lab Results - Last 24 Hours (Table) 10/23/19 10/23/19 10/23/19 Range/Units 17:00 17:15 18:22 WBC (3.8-10.6) k/uL RBC (4.30-5.90) m/uL Hgb (13.0-17.5) gm/dL Hct (39.0-53.0) % RDW (11.5-15.5) % Plt Count (150-450) k/uL Neutrophils # (1.3-7.7) k/uL Lymphocytes # (1.0-4.8) k/uL Sodium (137-145) mmol/L BUN (9-20) mg/dL Creatinine (0.66-1.25) mg/dL Glucose 572 H* (74-99) mg/dL POC Glucose (mg/dL) >600 H >600 H (75-99) mg/dL Total Protein (6.3-8.2) g/dL Albumin (3.5-5.0) g/dL 10/23/19 10/23/19 10/24/19 Range/Units 20:30 20:31 00:44 WBC (3.8-10.6) k/uL RBC (4.30-5.90) m/uL Hgb (13.0-17.5) gm/dL Hct (39.0-53.0) % RDW (11.5-15.5) % Plt Count (150-450) k/uL Neutrophils # (1.3-7.7) k/uL Lymphocytes # (1.0-4.8) k/uL Sodium (137-145) mmol/L BUN (9-20) mg/dL Creatinine (0.66-1.25) mg/dL Glucose (74-99) mg/dL POC Glucose (mg/dL) >600 H >600 H 588 H (75-99) mg/dL Total Protein (6.3-8.2) g/dL Albumin (3.5-5.0) g/dL 10/24/19 10/24/19 10/24/19 Range/Units 03:41 07:19 08:49 WBC (3.8-10.6) k/uL RBC (4.30-5.90) m/uL Hgb (13.0-17.5) gm/dL Hct (39.0-53.0) % RDW (11.5-15.5) % Plt Count (150-450) k/uL Neutrophils # (1.3-7.7) k/uL Lymphocytes # (1.0-4.8) k/uL Sodium 133 L (137-145) mmol/L BUN 43 H (9-20) mg/dL Creatinine 1.89 H (0.66-1.25) mg/dL Glucose 437 H (74-99) mg/dL POC Glucose (mg/dL) 548 H 489 H (75-99) mg/dL Total Protein 5.8 L (6.3-8.2) g/dL Albumin 3.3 L (3.5-5.0) g/dL 10/24/19 10/24/19 Range/Units 08:49 11:40 WBC 11.6 H (3.8-10.6) k/uL RBC 2.35 L (4.30-5.90) m/uL Hgb 7.7 L (13.0-17.5) gm/dL Hct 22.6 L (39.0-53.0) % RDW 17.6 H (11.5-15.5) % Plt Count 69 L (150-450) k/uL Neutrophils # 10.8 H (1.3-7.7) k/uL Lymphocytes # 0.2 L (1.0-4.8) k/uL Sodium (137-145) mmol/L BUN (9-20) mg/dL Creatinine (0.66-1.25) mg/dL Glucose (74-99) mg/dL POC Glucose (mg/dL) 441 H (75-99) mg/dL Total Protein (6.3-8.2) g/dL Albumin (3.5-5.0) g/dL Microbiology - Last 24 Hours (Table) 10/23/19 09:05 Blood Culture - Preliminary Blood No Growth after 24 hours Assessment and Plan Plan: 1 metastatic adenocarcinoma of the lung currently receiving immunotherapy. Based on the most recent CAT scan of the chest that was done September 2019, the patient was having adequate response with diminution of the pulmonary nodules noted. 2 generalized weakness and dehydration likely secondary to immunotherapy 3 COPD with an FEV1 of 47% of predicted 4 diabetes mellitus with steroid-induced hyperglycemia 5 hypertension 6 hyperlipidemia 7 previous history of DVT of the left lower extremity currently on Xarelto 8 history of left upper lobe resection for non-small cell lung cancer 9 history of wedge resection of a pulmonary nodule in the right lung confirming metastatic disease with adenocarcinoma 10 chronic stage III kidney disease, possibly due to a component of diabetic nephropathy 11 degenerative arthritis of the cervical spine 12 Anemia of chronic disease plan the follow-up CAT scan of the chest was noted. 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 The patient was reassured. Discontinue the doxycycline and put the patient course of Levaquin 500 mg for 7 days Avoid steroids due to the hyperglycemia Insulin adjustments was done for tighter blood sugar control Continue Xarelto 10 pounds IV fluids to KVO Creatinine is stable We'll continue to follow. Possible discharge in a.m.
[2019-10-24 16:33] LABS: Glucose,Whole Blood 425 mg/dL (75-99)
[2019-10-24] MEDS ORDERED: INSULIN DETEMIR (LEVEMIR) 100 UNIT/ML SYR SQ SCH (21:00)
[2019-10-24 21:40] LABS: Glucose,Whole Blood 266 mg/dL (75-99)
[2019-10-25 02:44] LABS: Glucose,Whole Blood 293 mg/dL (75-99)
[2019-10-25 07:19] VITALS: BP 144/75; RESP 16; TEMP 98.1
[2019-10-25 07:29] LABS: Glucose,Whole Blood 258 mg/dL (75-99)
[2019-10-25] MEDS: amLODIPine 10 MG TAB PO SCH (07:43)
[2019-10-25] MEDS: ATORVASTATIN 20 MG TAB PO SCH (07:43)
[2019-10-25] MEDS: levETIRAcetam 500 MG TAB PO SCH (07:44)
[2019-10-25] MEDS: predniSONE 10 MG TAB PO SCH (07:44)
[2019-10-25] MEDS: RIVAROXABAN 15 MG TAB PO SCH (07:44)
[2019-10-25] MEDS: METOPROLOL TARTRATE 25 MG TAB PO SCH (07:44)
[2019-10-25] MEDS: INSULIN ASPART (NovoLOG) 100 UNIT/ML VIAL SQ SCH ×4 (07:45→12:25)
[2019-10-25 08:25] LABS: Anisocytosis Slight; Basophils % (A) 0 %; Eosinophils # (A) 0.1 k/uL (0-0.7); Eosinophils % (A) 1 %; HCT 22.8 % (39.0-53.0); HGB 7.6 gm/dL (13.0-17.5); Hypochromasia Slight; Lymphocytes # (A) 0.5 k/uL (1.0-4.8); Lymphocytes % (A) 6 %; MCH 32.4 pg (25.0-35.0); MCHC 33.2 g/dL (31.0-37.0); MCV 97.6 fL (80.0-100.0); Macrocytosis Slight; Mean Platelet Volume 8.5; Monocytes # (A) 0.2 k/uL (0-1.0); Monocytes % (A) 3 %; Neutrophils # (A) 7.9 k/uL (1.3-7.7); Neutrophils % (A) 90 %; Poikilocytosis Slight; RBC 2.33 m/uL (4.30-5.90); RDW 18.1 % (11.5-15.5); WBC 8.7 k/uL (3.8-10.6)
[2019-10-25 08:34] LABS: Calcium 9.2 mg/dL (8.4-10.2); Potassium 4.1 mmol/L (3.5-5.1)
[2019-10-25 08:41] LABS: Platelet Count 82 k/uL (150-450)
[2019-10-25] MEDS: IPRATROPIUM-ALBUTEROL 3 ML NEB INHALATION SCH ×2 (09:25→12:21)
[2019-10-25 09:37] VITALS: PULSE 72
[2019-10-25 11:55] LABS: Glucose,Whole Blood 126 mg/dL (75-99)
--- NOTE | 2019-10-25 12:58 | P.PN ---
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 He also has hypertension, hyperlipidemia, diabetes mellitus type 2 and previous history of DVT of the left lower extremity for which is on long-term anticoagulation with alto. The patient has a preserved LV function with an ejection fraction of 70% and he does not have any significant valvular heart disease. He has borderline pulmonary hypertension. The patient has been in our office on a regular basis. He has undergone previous thoracotomy and lobectomy for non-small cell lung cancer and subsequently he became metastatic. Since then, the patient has been on immunotherapy and the patient has received a total of 4 different sessions every 3 weeks. The CAT scan from 06/25/2019 09/08/2019 was reviewed and there is improvement in the size and number of the pulmonary nodules that were scattered in the bilateral lung wright. Please refer to the official report. Meanwhile, the patient has gotten weak and lethargic while receiving his immunotherapy. He came into the emergency department toda complaining of generalized weakness, sore throat, dehydration, generalized weakness, Increased Shortness of Breath and Wheezing. A Chest X-Ray Was Done That Showed No Evidence of Any Acute Pneumonia. His Creatinine Was at 1.8 However He Does Have Some Background Kidney Failure and the patient has a component of chronic kidney disease stage III,. He is currently receiving IV fluids. He'll be admitted to the medical floor for fluids and this was attributed to systemic steroids. He was placed on IV Solu-Medrol 40 mg every 12 hours. He is also placed on Levemir insulin 72 units in addition to a NovoLog scale. Today's evaluation of 10/24/2019, the patient feels good and has no specific complaints. A repeat CAT scan of the chest was done yesterday and the CAT scan shows improvement in the pulmonary nodules that were discussed earlier. There is some new multifocal interstitial changes consistent with atypical pulmonary infection and this probably could've contributed to the patient's worsening shortness of breath. He is currently on doxycycline. He did not take his prednisone today due to concerns of his elevated blood sugar. Insulin dose has been adjusted.the patient is currently up to 90 units of Levemir insulin in addition to 15 units of NovoLog with meals plus a sliding scale coverage. He is not taking any form of systemic steroids for now. On 10/25/2019 the patient is feeling well. Blood sugars under better control. He is less short of breath. No new complaints otherwise. He was taken off the steroids. His hemoglobin is at 7.6. Medications she'll that the patient is currently on oral Levaquin and doxycycline was discontinued. He is on bronchodilators [id number]. No fever. No chills. The renal function stable with a creatinine of 1.59 Objective - Vital Signs Vital signs: Vital Signs Temp 98.1 F 10/25/19 07:03 Pulse 72 10/25/19 09:36 Resp 16 10/25/19 07:03 BP 144/75 10/25/19 07:03 Pulse Ox 97 10/25/19 07:03 Intake & Output 10/24/19 10/25/19 10/25/19 18:59 06:59 18:59 Intake Total 480 Balance 480 Weight 87.09 kg Intake: Oral 480 Other: # Voids 2 1 - Exam ppearance is calm and comfortable likely distress looks a bit weak and tired Head exam was generally normal. There was no scleral icterus or corneal arcus. Mucous membranes were moist. Neck was supple and without jugular venous distension, thyromegaly, or carotid bruits. Carotids were easily palpable bilaterally. There was no adenopathy. Lungs sounds are diminished bilaterally along with some few scattered expiratory wheezes throughout the lung wright. Cardiac exam revealed the PMI to be normally situated and sized. The rhythm was regular and no extrasystoles were noted during several minutes of auscultation. The first and second heart sounds were normal and physiologic splitting of the second heart sound was noted. There were no murmurs, rubs, clicks, or gallops. Abdominal exam revealed normal bowel sounds. The abdomen was soft, non-tender, and without masses, organomegaly, or appreciable enlargement of the abdominal aorta. Examination of the extremities revealed easily palpable radial, femoral and pedal pulses. There was no cyanosis, clubbing or edema. Examination of the skin revealed no evidence of significant rashes, suspicious appearing nevi or other concerning lesions. neurologically the patient is awake and alert and there is no focal neurological deficits. He does have some motor weakness which is quite generalized this point in time. - Labs CBC & Chem 7: 10/25/19 07:42 10/25/19 07:42 Labs: Abnormal Lab Results - Last 24 Hours (Table) 10/24/19 10/24/19 10/25/19 Range/Units 16:31 21:38 02:37 RBC (4.30-5.90) m/uL Hgb (13.0-17.5) gm/dL Hct (39.0-53.0) % RDW (11.5-15.5) % Plt Count (150-450) k/uL Neutrophils # (1.3-7.7) k/uL Lymphocytes # (1.0-4.8) k/uL Chloride (98-107) mmol/L BUN (9-20) mg/dL Creatinine (0.66-1.25) mg/dL Glucose (74-99) mg/dL POC Glucose (mg/dL) 425 H 266 H 293 H (75-99) mg/dL 10/25/19 10/25/19 10/25/19 Range/Units 07:26 07:42 07:42 RBC 2.33 L (4.30-5.90) m/uL Hgb 7.6 L (13.0-17.5) gm/dL Hct 22.8 L (39.0-53.0) % RDW 18.1 H (11.5-15.5) % Plt Count 82 L (150-450) k/uL Neutrophils # 7.9 H (1.3-7.7) k/uL Lymphocytes # 0.5 L (1.0-4.8) k/uL Chloride 108 H (98-107) mmol/L BUN 47 H (9-20) mg/dL Creatinine 1.59 H (0.66-1.25) mg/dL Glucose 216 H (74-99) mg/dL POC Glucose (mg/dL) 258 H (75-99) mg/dL 10/25/19 Range/Units 11:53 RBC (4.30-5.90) m/uL Hgb (13.0-17.5) gm/dL Hct (39.0-53.0) % RDW (11.5-15.5) % Plt Count (150-450) k/uL Neutrophils # (1.3-7.7) k/uL Lymphocytes # (1.0-4.8) k/uL Chloride (98-107) mmol/L BUN (9-20) mg/dL Creatinine (0.66-1.25) mg/dL Glucose (74-99) mg/dL POC Glucose (mg/dL) 126 H (75-99) mg/dL Microbiology - Last 24 Hours (Table) 10/23/19 09:05 Blood Culture - Preliminary Blood No Growth after 48 hours Assessment and Plan Plan: 1 metastatic adenocarcinoma of the lung currently receiving immunotherapy. Based on the most recent CAT scan of the chest that was done September 2019, the patient was having adequate response with diminution of the pulmonary nodules noted. 2 generalized weakness and dehydration likely secondary to immunotherapy 3 COPD with an FEV1 of 47% of predicted 4 diabetes mellitus with steroid-induced hyperglycemia 5 hypertension 6 hyperlipidemia 7 previous history of DVT of the left lower extremity currently on Xarelto 8 history of left upper lobe resection for non-small cell lung cancer 9 history of wedge resection of a pulmonary nodule in the right lung confirming metastatic disease with adenocarcinoma 10 chronic stage III kidney disease, possibly due to a component of diabetic nephropathy 11 degenerative arthritis of the cervical spine 12 Anemia of chronic disease plan The patient is feeling well. No systemic steroids. Oral Levaquin. The patient is good for discharge from a pulmonary standpoint. He was reassured and the results of the CAT scan. Hemoglobin is stable. Renal function is stable. Follow-up in the office.
--- NOTE | 2019-10-25 14:25 | P.DS ---
Providers Date of admission: 10/23/19 11:04 Attending physician: Hilary Vera Consults: 10/23/19 11:04 Consult Physician Routine Consulting Provider: Rickey Snider Consult Reason/Comments: COPD exacerbation, bronchitis Do you want consulting provider notified?: Yes Primary care physician: Renzo Merlin [facility] Course: 71-year-old pleasant gentleman known history of COPD and adenocarcinoma of the lung receiving chemotherapy With Comments of Shortness of Breath Found to Be in COPD Exacerbation Was Given IV Steroids with Significant Improvement in His Respiratory Status. Chest X-Ray Did Not Show Pneumonia. He'll Also Found to Be in Acute Renal Failure with Serum Creatinine 1.81 and Baseline around 1.2 and Low Magnesium of 1.2. Patient Is on Diuretics and RAFAEL Inhibitor Which Are Contributing to His Renal Dysfunction Patient Denied Any History of Heart Failure and is taking Lasix for his ankle edema which is again probably secondary to Norvasc. Patient systemic steroids will be cut down to twice a day and patient does have history of uncontrolled type 2 diabetes mellitus and his blood sugars are expected to go up because of steroids. Patient wheezing already improved since patient doesn't have any evidence of pneumonia will change the antibiotic to doxycycline from levofloxacin. Patient was given Zosyn in ER. 10/24/2019 Patient is sitting up in the bed in no acute distress. Patient refusing oral prednisone and steroids as he feels this is what is making his blood sugars elevated. Patient's blood sugars continue to be elevated and adjustments to insulin have been made. Discussed with the patient at length about tight glycemic control and that patient will need an increase in insulin with meals, sliding scale, and an increase in his long-acting insulin. Most recent hemoglobin A1c in September of this year was 11.5. Family at the bedside verbalized understanding of monitoring blood sugars closely and following up with primary care provider in the outpatient setting. Patient states that his breathing has improved slightly and is currently denying shortness of breath at this time. Patient denies any chest pain or palpitations at this time. 10/25/2019 She is declining to take any systemic steroids which is understandable because of his uncontrolled blood sugars. Patient will be discharged today on inhaled steroids inhalational treatments. Patient insulin regimen was changed and patient was started on pre-meal insulin and patient will follow-up with the PCP as an outpatient and patient still has some wheeze on exam but not wearing oxygen, feeling much better. There are some nodular lesions on the CAT scan that was done on the chest and there is a suspicion of pneumonia as well because of which pulmonology changed antibiotics to Levaquin and patient will be discharged on Levaquin. Patient doesn't have any heart failure concerned about his pedal edema from a amlodipine because of which are changed his Lasix to as needed and patient will wear compression socks. Patient's serum creatinine is around 1.5 which is close to his baseline PHYSICAL EXAMINATION: GENERAL: The patient is alert and oriented x3, not in any acute distress. Well developed, well nourished. HEENT: Pupils are round and equally reacting to light. EOMI. No scleral icterus. No conjunctival pallor. Normocephalic, atraumatic. No pharyngeal erythema. No thyromegaly. CARDIOVASCULAR: S1 and S2 present. No murmurs, rubs, or gallops. PULMONARY: Minimal expiratory wheezing on exam ABDOMEN: Soft, nontender, nondistended, normoactive bowel sounds. No palpable organomegaly. MUSCULOSKELETAL: No joint swelling or deformity. EXTREMITIES: No cyanosis, clubbing, or pedal edema. NEUROLOGICAL: Gross neurological examination did not reveal any focal deficits. SKIN: No rashes. Assessment and Plan Assessment: -COPD exacerbation: Low possibly of pneumonia but cannot be ruled out -Acute renal failure on chronic kidney disease stage II to 3 acute renal failure secondary to diuretics and RAFAEL inhibitor, improved now -Type 2 diabetes mellitus uncontrolled and elevated blood sugars -Anemia appears to be chronic from his lung cancer, anemia of chronic disease -Thrombocytopenia secondary to chemotherapy -Coronary artery disease -DVT in the past for which patient is on anticoagulation which will be continued -Hyperlipidemia -Hypertension -seizure disorder patient was resumed on home medications for this. Patient Condition at Discharge: Fair Plan - Discharge Summary Discharge Rx Participant: No New Discharge Prescriptions: New Levofloxacin [Levaquin] 500 mg PO Q24H #5 tab Insulin Detemir (Levemir) [Levemir] 90 unit SQ HS syr INSULIN ASPART (NovoLOG) [NovoLOG (formulary)] 10 unit SQ AC-TID #1 vial Continue Simvastatin [Zocor] 40 mg PO DAILY amLODIPine [Norvasc] 10 mg PO DAILY levETIRAcetam [Keppra] 500 mg PO BID Ipratropium-Albuterol Nebulize [Duoneb 0.5 mg-3 mg/3 ml Soln] 3 ml INHALATION RT-TID PRN PRN Reason: Shortness Of Breath Rivaroxaban [Xarelto] 15 mg PO DAILY #30 tab Metoprolol Tartrate 25 mg PO BID #60 tab Budesonide-Formot 160-4.5 Mcg [Symbicort 160-4.5 Mcg Inhaler] 2 puff INHALATION RT-BID #1 inhaler Changed Furosemide [Lasix] 40 mg PO DAILY PRN #1 PRN Reason: Edema Lisinopril 20 mg PO DAILY #0 Discontinued Insulin Detemir [Levemir Flextouch] 72 units SQ HS Discharge Medication List Ipratropium-Albuterol Nebulize [Duoneb 0.5 mg-3 mg/3 ml Soln] 3 ml INHALATION RT-TID PRN 07/30/19 [History] Simvastatin [Zocor] 40 mg PO DAILY 07/30/19 [History] amLODIPine [Norvasc] 10 mg PO DAILY 07/30/19 [History] levETIRAcetam [Keppra] 500 mg PO BID 07/30/19 [History] Budesonide-Formot 160-4.5 Mcg [Symbicort 160-4.5 Mcg Inhaler] 2 puff INHALATION RT-BID #1 inhaler 09/10/19 [Rx] Metoprolol Tartrate 25 mg PO BID #60 tab 09/10/19 [Rx] Rivaroxaban [Xarelto] 15 mg PO DAILY #30 tab 09/10/19 [Rx] Furosemide [Lasix] 40 mg PO DAILY PRN #1 10/25/19 [Rx] INSULIN ASPART (NovoLOG) [NovoLOG (formulary)] 10 unit SQ AC-TID #1 vial 10/25/19 [Rx] Insulin Detemir (Levemir) [Levemir] 90 unit SQ HS syr 10/25/19 [Rx] Levofloxacin [Levaquin] 500 mg PO Q24H #5 tab 10/25/19 [Rx] Lisinopril 20 mg PO DAILY #0 10/25/19 [Rx] Follow up Appointment(s)/Referral(s): Renzo Boyer MD [Primary Care Provider] - 3 Days Discharge Disposition: HOME SELF-CARE
== END 2019-10-25 14:57 | disposition home or self-care (01) | DRG 190 ==
LOC: EC 08:38 → 6NMEDSUR 11:04
PROVIDERS: ADMIT Internal Medicine; ATTEND Internal Medicine
DX: J44.0 Chronic obstructive pulmonary disease with (acute) lower respiratory infection (principal); J18.9 Pneumonia, unspecified organism; J80 Acute respiratory distress syndrome; C34.12 Malignant neoplasm of upper lobe, left bronchus or lung; N17.9 Acute kidney failure, unspecified; C79.9 Secondary malignant neoplasm of unspecified site; I27.20 Pulmonary hypertension, unspecified; J44.1 Chronic obstructive pulmonary disease with (acute) exacerbation; D69.59 Other secondary thrombocytopenia; E11.22 Type 2 diabetes mellitus with diabetic chronic kidney disease; N18.3 Chronic kidney disease, stage 3 (moderate); E83.42 Hypomagnesemia; G40.909 Epilepsy, unspecified, not intractable, without status epilepticus; E78.5 Hyperlipidemia, unspecified; N40.0 Benign prostatic hyperplasia without lower urinary tract symptoms; I12.9 Hypertensive chronic kidney disease with stage 1 through stage 4 chronic kidney disease, or unspecified chronic kidney disease; D63.0 Anemia in neoplastic disease; E11.65 Type 2 diabetes mellitus with hyperglycemia; T45.1X5A Adverse effect of antineoplastic and immunosuppressive drugs, initial encounter; T50.2X5A Adverse effect of carbonic-anhydrase inhibitors, benzothiadiazides and other diuretics, initial encounter; E86.0 Dehydration; G89.29 Other chronic pain; M54.9 Dorsalgia, unspecified; M54.2 Cervicalgia; I25.10 Atherosclerotic heart disease of native coronary artery without angina pectoris; I25.2 Old myocardial infarction; M19.90 Unspecified osteoarthritis, unspecified site; Z79.51 Long term (current) use of inhaled steroids; Z79.4 Long term (current) use of insulin; Z79.01 Long term (current) use of anticoagulants; Z79.899 Other long term (current) drug therapy; Z87.891 Personal history of nicotine dependence; Z86.73 Personal history of transient ischemic attack (TIA), and cerebral infarction without residual deficits; Z86.718 Personal history of other venous thrombosis and embolism; Z87.01 Personal history of pneumonia (recurrent); Z90.49 Acquired absence of other specified parts of digestive tract; Z98.890 Other specified postprocedural states; Z86.59 Personal history of other mental and behavioral disorders; Z98.42 Cataract extraction status, left eye; Z98.41 Cataract extraction status, right eye; Z83.3 Family history of diabetes mellitus
CPT/HCPCS: 36415; 71046; 71250; 80048; 80053; 82550; 82947; 83735; 83880; 84484; 85025; 85610; 85730; 87040; 94640; 96361; 96365; 96366; 96367; 96375; 99291

== ENCOUNTER → 2019-11-07 | Outpatient (CLI) | payer MEDICARE, OTHER ==
[~2019-11-07] MED LIST changes: -ALBUTEROL NEB (CONC) 2.5 MG/0.5 ML INHALATION ONE; -ATROPINE SULFATE 0.4 MG/ML 1 ML VIAL IM ONE; -LACTATED RINGERS 1,000 ML IV SCH; -LIDOCAINE 1% 20 ML VIAL (10MG/ML) FOR IV START INTRADERMA PRN; -LIDOCAINE VISCOUS 300 MG/15 ML CUP MUCOUS MEM ONE; -Pre Op ABX Message 1 EACH MISC MISCELLANE ONE; +SODIUM CHLORIDE 0.9% 500 ML 500 ML in EMPTY BAG 1 BAG IV PRN
[2019-11-07 12:33] VITALS: RESP 16
[2019-11-07 14:24] VITALS: BP 161/77; PULSE 65; TEMP 98
== END | disposition home or self-care (01) ==
LOC: PROCWHC3 11:52
PROVIDERS: ATTEND Internal Medicine Hematology & Oncology
DX: D64.81 Anemia due to antineoplastic chemotherapy (principal)
CPT/HCPCS: 86900; 86901; 86850; 86920; 36430; P9016

== ENCOUNTER → 2019-12-24 | Outpatient (CLI) | payer MEDICARE, OTHER ==
--- NOTE | 2019-12-24 10:46 | CT ---
EXAMINATION TYPE: CT chest wo con DATE OF EXAM: 12/24/2019 COMPARISON: 10/23/2019, 09/08/2019, 06/25/2019 HISTORY: 74-year-old male follow-up lung cancer TECHNIQUE: Contiguous axial scanning of the chest without IV contrast. Coronal and sagittal reconstru ctions performed. CT DLP: 457.1 mGycm Automated exposure control for dose reduction was used. FINDINGS: Heart normal size without pericardial effusion. Three-vessel coronary artery calcifications are prese nt. Ectatic upper descending thoracic aorta 3.1 cm with moderate atherosclerotic arch calcifications and conventional arch vessel branching anatomy. Scattered small mediastinal lymph nodes redemonstrated. No thoracic lymphadenopathy by CT size criter ia. Mild scattered emphysematous change. Some scattered strandy atelectasis. Minimal residual tree-in-bud opacities in the upper lobes, improved from 10/23/2019. Post surgical change of prior resection on the medial right lower lobe. The previous adjacent nodule has decreased in size measuring 6 mm versus 9 mm, previously. However, an adjacent right lower lobe nodule measures 9 mm versus 7 mm, previously. Additional scattered left-sided pulmonary nodules measuring up to 1.6 cm on the left are unchanged. A couple additional pulmonary nodules on the right measuring up to 1.1 cm are also unchanged. Tiny hiatal hernia. Unchanged minimal nodularity left adrenal gland and bilateral perinephric strandi ng, probably senescent change or chronic kidney disease. Cholecystectomy clips. Bones: No osseous destructive process. IMPRESSION: 1. CONTINUED FOLLOW UP RECOMMENDED. PREVIOUS RESECTION SITE ALONG THE MEDIAL RIGHT BASE. THE ADJACENT PULMONARY NODULE IS SMALLER AT 6 MM VERSUS 9 MM, PREVIOUSLY. HOWEVER, ANOTHER RIGHT LOWER LOBE PULMO NARY NODULE IS SLIGHTLY LARGER AT 9 MM VERSUS 7 MM, PREVIOUSLY. 2. MULTIPLE OTHER PULMONARY NODULES, LEFT GREATER THAN RIGHT MEASURING UP TO 1.6 CM ARE STABLE. 3. IMPROVING TREE-IN-BUD OPACITIES. MINIMAL RESIDUAL TREE-IN-BUD INFILTRATES REMAIN.
== END ==
LOC: RADCTMAIN 09:24
PROVIDERS: ATTEND Internal Medicine Hematology & Oncology
DX: C34.12 Malignant neoplasm of upper lobe, left bronchus or lung (principal); R91.1 Solitary pulmonary nodule; R91.8 Other nonspecific abnormal finding of lung field; Z90.2 Acquired absence of lung [part of]
CPT/HCPCS: 71250

== ENCOUNTER 2019-12-29 10:08 | Observation (INO) | payer MEDICARE, OTHER ==
[2019-12-29] MEDS ORDERED: SODIUM CHLORIDE 0.9% 500 ML 500 ML IV STA (10:12)
[2019-12-29 10:19] LABS: Glucose,Whole Blood 82 mg/dL (75-99)
[2019-12-29] MEDS ORDERED: DEXTROSE 50% SYRINGE 50 ML IVP STA (10:22)
[2019-12-29 10:26] LABS: VBG PH 7.33 (7.31-7.41)
[2019-12-29 10:28] LABS: Basophils % (A) 0 %; Eosinophils # (A) 0.3 k/uL (0-0.7); Eosinophils % (A) 5 %; HGB 10.1 gm/dL (13.0-17.5); Lymphocytes # (A) 0.6 k/uL (1.0-4.8); Lymphocytes % (A) 8 %; MCH 30.5 pg (25.0-35.0); MCHC 33.7 g/dL (31.0-37.0); Monocytes # (A) 0.4 k/uL (0-1.0); Monocytes % (A) 6 %; Neutrophils # (A) 5.4 k/uL (1.3-7.7); Neutrophils % (A) 79 %; Poikilocytosis Slight; RBC 3.31 m/uL (4.30-5.90); RDW 14.7 % (11.5-15.5); WBC 6.8 k/uL (3.8-10.6)
[2019-12-29] MEDS ORDERED: ONDANSETRON 4 MG/2 ML VIAL IVP STA (10:30)
[2019-12-29 10:35] LABS: Partial Thromboplastin Time 25.2 sec (22.0-30.0); Prothrombin Time 10.3 sec (9.0-12.0)
[2019-12-29] MEDS ORDERED: ONDANSETRON 4 MG/2 ML VIAL ONE (10:35)
[2019-12-29 10:37] LABS: MCV 90.6 fL (80.0-100.0); Platelet Count 146 k/uL (150-450)
[2019-12-29 10:39] LABS: Glucose,Whole Blood 145 mg/dL (75-99)
[2019-12-29 10:44] LABS: Albumin 3.5 g/dL (3.5-5.0); Calcium 9.2 mg/dL (8.4-10.2); Total Bilirubin 0.5 mg/dL (0.2-1.3); Total Protein 6.3 g/dL (6.3-8.2)
--- NOTE | 2019-12-29 10:47 | CT ---
EXAMINATION TYPE: CT brain wo con for TPA DATE OF EXAM: 12/29/2019 COMPARISON: 10/03/2015 HISTORY: Possible stroke CT DLP: 2343.[address] of the brain was performed. The ventricles, basal cisterns and sulci overlying the cerebral convexities demonstrate mild enlargem ent. There is no evidence for intracranial hemorrhage or sulcal effacement. There is decreased attenuation about the periventricular white matter and deep white matter of both c erebral hemispheres, compatible with chronic small vessel ischemia. Differential diagnosis does inclu de demyelination. No mass effects are seen.No midline shift. Osseous calvarium is intact. If symptoms persist consider MRI. IMPRESSION: 1. Age related atrophic and chronic small vessel ischemic change without acute intracranial process s een at this time.
--- NOTE | 2019-12-29 10:56 | CT ---
EXAMINATION TYPE: CT angio head neck DATE OF EXAM: 12/29/2019 COMPARISON: None HISTORY: Patient arrived from outpatient center, epidural injection. Not answering questions properly . CT DLP: 572.5 mGycm CONTRAST: Performed with IV Contrast, patient injected with 65 mL of Isovue 370. Combination Contrast CTA cervical carotids and [place] of [place] CTA cervical carotids with 3-D recons truction Contrast CTA of the cervical carotids was performed 3-D reconstruction imaging obtained at a separate workstation. Right carotid system: Mild plaque is seen of the right common carotid artery. There is mild plaque a lso noted at the carotid bulb and proximal ICA. No significant diameter reduction. ECA is patent. Right vertebral artery appears unremarkable. Left carotid system: Mild plaque is seen of the left common carotid artery. There is mild plaque als o noted at the carotid bulb and proximal ICA. No significant diameter reduction. ECA is patent. Lef t vertebral artery appears unremarkable. Right upper lobe pulmonary nodule is identified measuring [address] of the chest dated 0 indicated multiple pulmonary nodules. IMPRESSION: 1. No significant diameter reduction to account for the patient's symptoms. CTA q[place] of [place] with 3-D reconstruction Contrast CTA of the q[place] of [place] was performed 3-D reconstruction imaging obtained at a separate workstation. Vertebrobasilar system as well as intracranial portions of the internal carotid arteries and their ma mary tributaries are patent. I do not see evidence for sizable aneurysm or vascular malformation. Do minant left A1 segment. Please note MRI provides greater sensitivity and specificity. Visualized bra in appears grossly unremarkable. IMPRESSION: 1. No significant abnormality.
--- NOTE | 2019-12-29 11:00 | ED ---
General Adult HPI - General Chief complaint: Neuro Symptoms/Deficit Stated complaint: CVA Time Seen by Provider: 12/29/19 10:11 Source: patient, family, EMS, RN notes reviewed, old records reviewed Mode of arrival: EMS Limitations: altered mental status, physical limitation - History of Present Illness Initial comments: 74-year-old male history of TIA, DVT, lung CVA presenting with altered mental status concern for CVA. He was receiving a epidural injection in the lower cervical vertebrae today he received procedural sedation and upon awakening he had some confusion and slurred speech and a right-sided deficit noticed. He was hypoglycemic at that time, given an amp of dextrose and his sugar improved to overall 100 however symptoms did not change he was transported to the emergency department with concern for CVA. He previously was on Xarelto however this medication at been held 3 days prior to the procedure. He has history of diabetes currently on insulin and according to his son who is at bedside that had difficulty managing his blood sugar recently. He was in the 40s yesterday morning this morning he was in the 200s and was given insulin prior to leaving the house for his planned epidural procedure. - Related Data Home Medications Medication Instructions Recorded Confirmed Ipratropium-Albuterol Nebulize 3 ml INHALATION RT-TID PRN 07/30/19 11/07/19 [Duoneb 0.5 mg-3 mg/3 ml Soln] Simvastatin [Zocor] 40 mg PO DAILY 07/30/19 11/07/19 amLODIPine [Norvasc] 10 mg PO DAILY 07/30/19 11/07/19 levETIRAcetam [Keppra] 500 mg PO BID 07/30/19 11/07/19 Previous Rx's Medication Instructions Recorded Budesonide-Formot 160-4.5 Mcg 2 puff INHALATION RT-BID #1 inhaler 09/10/19 [Symbicort 160-4.5 Mcg Inhaler] Metoprolol Tartrate 25 mg PO BID #60 tab 09/10/19 Rivaroxaban [Xarelto] 15 mg PO DAILY #30 tab 09/10/19 Furosemide [Lasix] 40 mg PO DAILY PRN #1 10/25/19 INSULIN ASPART (NovoLOG) [NovoLOG 10 unit SQ AC-TID #1 vial 10/25/19 (formulary)] Insulin Detemir (Levemir) [Levemir] 90 unit SQ HS syr 10/25/19 Levofloxacin [Levaquin] 500 mg PO Q24H #5 tab 10/25/19 Lisinopril 20 mg PO DAILY #0 10/25/19 Allergies Allergy/AdvReac Type Severity Reaction Status Date / Time No Known Allergies Allergy Verified 12/29/19 11:31 Review of Systems ROS Statement: Those systems with pertinent positive or pertinent negative responses have been documented in the HPI. ROS Other: All systems not noted in ROS Statement are negative. Past Medical History Past Medical History: Coronary Artery Disease (CAD), Cancer, COPD, CVA/TIA, Diabetes Mellitus, Deep Vein Thrombosis (DVT), Hyperlipidemia, Hypertension, Myocardial Infarction (CT), Osteoarthritis (OA), Pneumonia, Prostate Disorder, Seizure Disorder Additional Past Medical History / Comment(s): 07/2018 L lung cancer with left upper lobectomy/IV chemo but pt states he quit taking chemo early then diagnosed with R lower lobe cancer in August 2019 and had wedge resection and started immunotherapy- every 3 weeks with last dose 10/17/19, bronchitis, TIA and seizure after bronchoscopy in 2017, DVT L leg, IDDM type II, chronic cervical/back pain, diabetes mellitus, occasional bilateral ankle edema, BPH, chronic stage III kidney disease Last Myocardial Infarction Date:: 05/24/12 History of Any Multi-Drug Resistant Organisms: None Reported Past Surgical History: Back Surgery, Cholecystectomy, Heart Catheterization, Hernia Repair, Tonsillectomy Additional Past Surgical History / Comment(s): 2017 Bronchoscopy with bx, 2017 L upper lobectomy at [facility], August 2019 R lower lung wedge resection, low back surgery, 2011 cardiac cath-treat medically, umbilical hernia repair, bilateral cataract removals Past Anesthesia/Blood Transfusion Reactions: Previous Problems w/ Anesthesia Additional Past Anesthesia/Blood Transfusion Reaction / Comment(s): Seizure and mini stroke following lung biopsy Past Psychological History: Anxiety, Depression Smoking Status: Former smoker Past Alcohol Use History: None Reported Past Drug Use History: None Reported - Past Family History Mother Family Medical History: No Reported History Additional Family Medical History / Comment(s): Mother was healthy Father Family Medical History: Diabetes Mellitus Additional Family Medical History / Comment(s): Father of diabetes at the age of 83 yrs. General Exam Limitations: altered mental status, physical limitation General appearance: alert, in no apparent distress Head exam: Present: atraumatic, normocephalic Eye exam: Present: PERRL, other (Left gaze) Respiratory exam: Present: normal lung sounds bilaterally. Absent: respiratory distress, wheezes Cardiovascular Exam: Present: regular rate, normal rhythm GI/Abdominal exam: Present: soft. Absent: distended, tenderness Extremities exam: Present: normal inspection, normal capillary refill. 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 Absent: oriented X3 Skin exam: Present: warm, dry, intact. Absent: cyanosis, diaphoretic Course Vital Signs 12/29/19 12/29/19 12/29/19 10:11 10:15 10:30 Temperature 98.0 F 98.0 F Pulse Rate 77 81 79 Respiratory 18 16 16 Rate Blood Pressure 170/85 172/86 147/90 O2 Sat by Pulse 98 98 100 Oximetry 12/29/19 12/29/19 12/29/19 10:45 11:00 11:30 Temperature 98.0 F 98.1 F Pulse Rate 77 78 76 Respiratory 16 16 16 Rate Blood Pressure 177/88 158/83 163/84 O2 Sat by Pulse 100 100 100 Oximetry - Reevaluation(s) Reevaluation #1: 12/29/19 11:50 Patient reevaluated multiple times, his exam improves, he is nonfocal moving all extremities, he is less confused and able to follow more commands. EKG Findings - EKG Comments: EKG Findings:: EKG: Narrow complex regular rhythm, electronic interpretation of axilla junctional rhythm, suspect sinus rhythm with baseline artifact, LVH, rate of 76, QRS duration 76, QTC [address] segment elevation. Medical Decision Making - Medical Decision Making 74-year-old male presenting with confusion, concern for CVA. There was hypoglycemia but his symptoms did not initially improved with treatment of hypoglycemia. He did receive some procedural sedation for his cervical epidural injection. He is taken immediately to CAT scan and received both CT CT angiography, these are negative for acute intracranial hemorrhage, no stenosis or occlusion of the cerebral arteries. I suspect that his confusion is related to the hypoglycemia and sedation. His symptoms improve with close glucose monitoring and time. Discussed case with Dr. Bruno who will admit for close monitoring reevaluation. He is able to evaluate the patient in the emergency room. - Lab Data Result diagrams: 12/29/19 10:12 12/29/19 10:12 Lab Results 12/29/19 12/29/19 12/29/19 Range/Units 10:12 10:12 10:12 WBC 6.8 (3.8-10.6) k/uL RBC 3.31 L (4.30-5.90) m/uL Hgb 10.1 L (13.0-17.5) gm/dL Hct 30.0 L (39.0-53.0) % MCV 90.6 D (80.0-100.0) fL MCH 30.5 (25.0-35.0) pg MCHC 33.7 (31.0-37.0) g/dL RDW 14.7 (11.5-15.5) % Plt Count 146 L D (150-450) k/uL Neutrophils % 79 % Lymphocytes % 8 % Monocytes % 6 % Eosinophils % 5 % Basophils % 0 % Neutrophils # 5.4 (1.3-7.7) k/uL Lymphocytes # 0.6 L (1.0-4.8) k/uL Monocytes # 0.4 (0-1.0) k/uL Eosinophils # 0.3 (0-0.7) k/uL Basophils # 0.0 (0-0.2) k/uL Poikilocytosis Slight PT 10.3 (9.0-12.0) sec INR 1.0 (<1.2) APTT 25.2 (22.0-30.0) sec VBG pH (7.31-7.41) VBG pCO2 (37-51) mmHg VBG HCO3 (24-28) mmol/L Sodium 142 (137-145) mmol/L Potassium 4.0 (3.5-5.1) mmol/L Chloride 111 H (98-107) mmol/L Carbon Dioxide 22 (22-30) mmol/L Anion Gap 9 mmol/L BUN 23 H (9-20) mg/dL Creatinine 1.43 H (0.66-1.25) mg/dL Est GFR (CKD-EPI)AfAm 56 (>60 ml/min/1.73 sqM) Est GFR (CKD-EPI)NonAf 49 (>60 ml/min/1.73 sqM) Glucose 72 L (74-99) mg/dL POC Glucose (mg/dL) (75-99) mg/dL POC Glu Mechanic Sound Technician ID Calcium 9.2 (8.4-10.2) mg/dL Total Bilirubin 0.5 (0.2-1.3) mg/dL AST 20 (17-59) U/L ALT 14 (4-49) U/L Alkaline Phosphatase 97 (38-126) U/L Total Creatine Kinase (55-170) U/L CK-MB (CK-2) (0.0-2.4) ng/mL CK-MB (CK-2) Rel Index Troponin I (0.000-0.034) ng/mL Total Protein 6.3 (6.3-8.2) g/dL Albumin 3.5 (3.5-5.0) g/dL 12/29/19 12/29/19 12/29/19 Range/Units 10:12 10:12 10:18 WBC (3.8-10.6) k/uL RBC (4.30-5.90) m/uL Hgb (13.0-17.5) gm/dL Hct (39.0-53.0) % MCV (80.0-100.0) fL MCH (25.0-35.0) pg MCHC (31.0-37.0) g/dL RDW (11.5-15.5) % Plt Count (150-450) k/uL Neutrophils % % Lymphocytes % % Monocytes % % Eosinophils % % Basophils % % Neutrophils # (1.3-7.7) k/uL Lymphocytes # (1.0-4.8) k/uL Monocytes # (0-1.0) k/uL Eosinophils # (0-0.7) k/uL Basophils # (0-0.2) k/uL Poikilocytosis PT (9.0-12.0) sec INR (<1.2) APTT (22.0-30.0) sec VBG pH 7.33 (7.31-7.41) VBG pCO2 44 (37-51) mmHg VBG HCO3 23 L (24-28) mmol/L Sodium (137-145) mmol/L Potassium (3.5-5.1) mmol/L Chloride (98-107) mmol/L Carbon Dioxide (22-30) mmol/L Anion Gap mmol/L BUN (9-20) mg/dL Creatinine (0.66-1.25) mg/dL Est GFR (CKD-EPI)AfAm (>60 ml/min/1.73 sqM) Est GFR (CKD-EPI)NonAf (>60 ml/min/1.73 sqM) Glucose (74-99) mg/dL POC Glucose (mg/dL) 82 (75-99) mg/dL POC Glu Mechanic Sound Technician ID Erika De Jesus Calcium (8.4-10.2) mg/dL Total Bilirubin (0.2-1.3) mg/dL AST (17-59) U/L ALT (4-49) U/L Alkaline Phosphatase (38-126) U/L Total Creatine Kinase 82 (55-170) U/L CK-MB (CK-2) 2.6 H (0.0-2.4) ng/mL CK-MB (CK-2) Rel Index 3.2 Troponin I 0.012 (0.000-0.034) ng/mL Total Protein (6.3-8.2) g/dL Albumin (3.5-5.0) g/dL 12/29/19 12/29/19 Range/Units 10:38 11:32 WBC (3.8-10.6) k/uL RBC (4.30-5.90) m/uL Hgb (13.0-17.5) gm/dL Hct (39.0-53.0) % MCV (80.0-100.0) fL MCH (25.0-35.0) pg MCHC (31.0-37.0) g/dL RDW (11.5-15.5) % Plt Count (150-450) k/uL Neutrophils % % Lymphocytes % % Monocytes % % Eosinophils % % Basophils % % Neutrophils # (1.3-7.7) k/uL Lymphocytes # (1.0-4.8) k/uL Monocytes # (0-1.0) k/uL Eosinophils # (0-0.7) k/uL Basophils # (0-0.2) k/uL Poikilocytosis PT (9.0-12.0) sec INR (<1.2) APTT (22.0-30.0) sec VBG pH (7.31-7.41) VBG pCO2 (37-51) mmHg VBG HCO3 (24-28) mmol/L Sodium (137-145) mmol/L Potassium (3.5-5.1) mmol/L Chloride (98-107) mmol/L Carbon Dioxide (22-30) mmol/L Anion Gap mmol/L BUN (9-20) mg/dL Creatinine (0.66-1.25) mg/dL Est GFR (CKD-EPI)AfAm (>60 ml/min/1.73 sqM) Est GFR (CKD-EPI)NonAf (>60 ml/min/1.73 sqM) Glucose (74-99) mg/dL POC Glucose (mg/dL) 145 H 131 H (75-99) mg/dL POC Glu Mechanic Sound Technician ID Juanita Thornton Kylee Calcium (8.4-10.2) mg/dL Total Bilirubin (0.2-1.3) mg/dL AST (17-59) U/L ALT (4-49) U/L Alkaline Phosphatase (38-126) U/L Total Creatine Kinase (55-170) U/L CK-MB (CK-2) (0.0-2.4) ng/mL CK-MB (CK-2) Rel Index Troponin I (0.000-0.034) ng/mL Total Protein (6.3-8.2) g/dL Albumin (3.5-5.0) g/dL Disposition Clinical Impression: Lung cancer, AMS (altered mental status), Hypoglycemia Disposition: ADMITTED IP TO THIS [facility] Condition: Stable Is patient prescribed a controlled substance at d/c from ED?: No Referrals: Renzo Boyer MD [Primary Care Provider] - 1-2 days Decision to Admit Reason: Admit from EC Decision Date: 12/29/19 Decision Time: 11:54
[2019-12-29 11:06] LABS: Creatine Kinase MB 2.6 ng/mL (0.0-2.4); Troponin I 0.012 ng/mL (0.000-0.034)
--- NOTE | 2019-12-29 11:08 | XR ---
EXAMINATION TYPE: XR chest 1V portable DATE OF EXAM: 12/29/2019 COMPARISON: 10/23/2019 HISTORY: Altered mental status TECHNIQUE: Single frontal view of the chest is obtained. FINDINGS: There is no focal air space opacity, pleural effusion, or pneumothorax seen. Chronic mini mal left basal atelectasis and tenting the diaphragm. The cardiac silhouette size is within normal li mits. The osseous structures are intact. Diffuse osseous demineralization. IMPRESSION: Chronic left basilar subsegmental atelectasis. No acute process.
[2019-12-29 11:43] LABS: Glucose,Whole Blood 131 mg/dL (75-99)
[2019-12-29] MEDS ORDERED: NALOXONE 0.4 MG/ML 1 ML VIAL IV PRN (11:46)
[2019-12-29] MEDS: SODIUM CHLORIDE 0.9% 1,000 ML IV SCH (12:04)
[2019-12-29] MEDS ORDERED: PANTOPRAZOLE 40 MG TABLET PO PRN (12:32)
[2019-12-29] MEDS ORDERED: ALBUTEROL NEBULIZED 2.5 MG/3 ML INHALATION PRN (12:32)
--- NOTE | 2019-12-29 12:44 | P.HPIM ---
History of Present Illness Patient is a pleasant 74-year-old male was sent in from postop to ER with concerns of cigarettes per accident. Patient received epidural injection following that patient was very slow coming out of anesthesia and had some some slurred speech and confusion because of which a there was a concern and patient was sent to ER. Patient although I valid the patient is alert oriented 2-3 close to his baseline denied any tingling numbness no weakness was appreciated steroids which resolved. Patient scored hypotension on and it scale all of which is attributed to slurred speech and confusion. CT angios the head and neck along with the CT of the head did not show any significant abnormality. Patient does have history of lung cancer on immunotherapy metastatic lung cancer. Patient does have COPD quit smoking years ago. Patient is wheezing on exam. Other issues patient blood sugars were extremely low today and apparently they were low yesterday to patient is on very high-dose of insulin at home. Patient denied any fever chills cough. Patient denied dysuria. Denied any body aches flulike symptoms. Review of Systems REVIEW OF SYSTEMS: CONSTITUTIONAL: No fever, no malaise, no fatigue. HEENT: No recent visual problems or hearing problems. Denied any sore throat. CARDIOVASCULAR: No chest pain, orthopnea, PND, no palpitations, no syncope. PULMONARY: No shortness of breath, no cough, no hemoptysis. GASTROINTESTINAL: No diarrhea, no nausea, no vomiting, no abdominal pain. NEUROLOGICAL: No headaches, no weakness, no numbness. HEMATOLOGICAL: Denies any bleeding or petechiae. GENITOURINARY: Denies any burning micturition, frequency, or urgency. MUSCULOSKELETAL/RHEUMATOLOGICAL: Denies any joint pain, swelling, or any muscle pain. ENDOCRINE: Denies any polyuria or polydipsia. The rest of the 14-point review of systems is negative. Past Medical History Past Medical History: Coronary Artery Disease (CAD), Cancer, COPD, CVA/TIA, Diab etes Mellitus, Deep Vein Thrombosis (DVT), Hyperlipidemia, Hypertension, Myocardial Infarction ([place]), Osteoarthritis (OA), Pneumonia, Prostate Disorder, Seizure Disorder Additional Past Medical History / Comment(s): 07/2018 L lung cancer with left upper lobectomy/IV chemo but pt states he quit taking chemo early then diagnosed with R lower lobe cancer in August 2019 and had wedge resection and started immunotherapy- every 3 weeks with last dose 10/17/19, bronchitis, TIA and seizure after bronchoscopy in 2018, DVT L leg, IDDM type II, chronic cervical/back pain, diabetes mellitus, occasional bilateral ankle edema, BPH, chronic stage III kidney disease Last Myocardial Infarction Date:: 05/24/12 History of Any Multi-Drug Resistant Organisms: None Reported Past Surgical History: Back Surgery, Cholecystectomy, Heart Catheterization, Hernia Repair, Tonsillectomy Additional Past Surgical History / Comment(s): 2018 Bronchoscopy with bx, 2017 L upper lobectomy at [facility], August 2019 R lower lung wedge resection, low back surgery, 2011 cardiac cath-treat medically, umbilical hernia repair, bilateral cataract removals Past Anesthesia/Blood Transfusion Reactions: Previous Problems w/ Anesthesia Additional Past Anesthesia/Blood Transfusion Reaction / Comment(s): Seizure and mini stroke following lung biopsy Past Psychological History: Anxiety, Depression Smoking Status: Former smoker Past Alcohol Use History: None Reported Past Drug Use History: None Reported - Past Family History Mother Family Medical History: No Reported History Additional Family Medical History / Comment(s): Mother was healthy Father Family Medical History: Diabetes Mellitus Additional Family Medical History / Comment(s): Father of diabetes at the age of 83 yrs. Medications and Allergies Home Medications Medication Instructions Recorded Confirmed Type Ipratropium-Albuterol Nebulize 3 ml INHALATION RT-TID 07/30/19 12/29/19 History [Duoneb 0.5 mg-3 mg/3 ml Soln] Simvastatin [Zocor] 40 mg PO DAILY 07/30/19 12/29/19 History amLODIPine [Norvasc] 10 mg PO DAILY 07/30/19 12/29/19 History levETIRAcetam [Keppra] 500 mg PO BID 07/30/19 12/29/19 History Metoprolol Tartrate 25 mg PO BID #60 tab 09/10/19 12/29/19 Rx Rivaroxaban [Xarelto] 15 mg PO DAILY #30 tab 09/10/19 12/29/19 Rx Furosemide [Lasix] 40 mg PO DAILY PRN #1 10/25/19 12/29/19 Rx INSULIN ASPART (NovoLOG) [NovoLOG 10 unit SQ AC-TID #1 vial 10/25/19 12/29/19 Rx (formulary)] Lisinopril 20 mg PO DAILY #0 10/25/19 12/29/19 Rx Albuterol Sulfate [Proair Hfa] 2 puff INHALATION RT-Q4H PRN 12/29/19 12/29/19 History Fluticasone/Salmeterol [Advair Hfa 2 puff INHALATION RT-BID 12/29/19 12/29/19 History 115-21 Mcg Inhaler] Insulin Detemir (Levemir) [Levemir] 80 unit SQ HS 12/29/19 12/29/19 History Omeprazole Magnesium [PriLOSEC OTC] 20 mg PO DAILY PRN 12/29/19 12/29/19 History PARoxetine [Paxil] 20 mg PO DAILY 12/29/19 12/29/19 History Allergies Allergy/AdvReac Type Severity Reaction Status Date / Time No Known Allergies Allergy Verified 12/29/19 11:31 Physical Exam Vitals: Vital Signs Temp Pulse Resp BP Pulse Ox 12/29/19 12:00 98.3 F 76 16 158/83 100 12/29/19 11:30 98.1 F 76 16 163/84 100 12/29/19 11:00 98.0 F 78 16 158/83 100 12/29/19 10:45 77 16 177/88 100 12/29/19 10:30 79 16 147/90 100 12/29/19 10:15 98.0 F 81 16 172/86 98 12/29/19 10:11 98.0 F 77 18 170/85 98 Intake and Output 12/28/19 12/29/19 12/29/19 22:59 06:59 14:59 Other: Weight 95.8 kg PHYSICAL EXAMINATION: GENERAL: The patient is alert and oriented x3, not in any acute distress. Well developed, well nourished. HEENT: Pupils are round and equally reacting to light. EOMI. No scleral icterus. No conjunctival pallor. Normocephalic, atraumatic. No pharyngeal erythema. No thyromegaly. CARDIOVASCULAR: S1 and S2 present. No murmurs, rubs, or gallops. PULMONARY: Expiratory wheezing on exam mildly decreased air entry into bilateral lung wright ABDOMEN: Soft, nontender, nondistended, normoactive bowel sounds. No palpable organomegaly. MUSCULOSKELETAL: No joint swelling or deformity. EXTREMITIES: No cyanosis, clubbing, or pedal edema. NEUROLOGICAL: Gross neurological examination did not reveal any focal deficits. Patient is alert oriented 3 no focal deficits were appreciated. SKIN: No rashes. Results CBC & Chem 7: 12/29/19 10:12 12/29/19 10:12 Labs: Abnormal Lab Results - Last 24 Hours (Table) 12/29/19 12/29/19 12/29/19 Range/Units 10:12 10:12 10:12 RBC 3.31 L (4.30-5.90) m/uL Hgb 10.1 L (13.0-17.5) gm/dL Hct 30.0 L (39.0-53.0) % Plt Count 146 L D (150-450) k/uL Lymphocytes # 0.6 L (1.0-4.8) k/uL VBG HCO3 (24-28) mmol/L Chloride 111 H (98-107) mmol/L BUN 23 H (9-20) mg/dL Creatinine 1.43 H (0.66-1.25) mg/dL Glucose 72 L (74-99) mg/dL POC Glucose (mg/dL) (75-99) mg/dL CK-MB (CK-2) 2.6 H (0.0-2.4) ng/mL 12/29/19 12/29/19 12/29/19 Range/Units 10:12 10:38 11:32 RBC (4.30-5.90) m/uL Hgb (13.0-17.5) gm/dL Hct (39.0-53.0) % Plt Count (150-450) k/uL Lymphocytes # (1.0-4.8) k/uL VBG HCO3 23 L (24-28) mmol/L Chloride (98-107) mmol/L BUN (9-20) mg/dL Creatinine (0.66-1.25) mg/dL Glucose (74-99) mg/dL POC Glucose (mg/dL) 145 H 131 H (75-99) mg/dL CK-MB (CK-2) (0.0-2.4) ng/mL Assessment and Plan Plan: -Confusion and slurred speech: Secondary to medications he received for his epidural and steroid injection there is no evidence of cerebral vascular accident no further testing is necessary patient will be admitted and monitored overnight. Patient has toxic encephalopathy. -Hypoglycemia patient is on very high-dose of insulin patient will be started on sliding scale insulin will hold off on long-acting insulin partial patient probably can be started back on his Lantus tomorrow at 50 units patient is presently taking 8 units at home. -COPD with mild acute exacerbation patient will be started on in his steroids inhalational treatments if he doesn't improve a tomorrow patient will be started on oral prednisone -History of lung cancer on immunotherapy patient has metastatic lung cancer. 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 Patient's creatinine is at his baseline which is 1.5. Still on hold off on diuretic therapy patient is not in heart failure and no evidence of diastolic or systolic dysfunction. Patient may have a competent of acute kidney injury secondary to excessive diuretic therapy Back pain just received her epidural steroid injection -Hyperlipidemia -Hypertension -I put him responders patient is presently hypoglycemic further management as mentioned above next and-history of DVT. Patient is an anti-correlation which will be continued benign prostatic appropriate -Hyperlipidemia -History of CVA TIA in the past no history of atrial fibrillation depression
[2019-12-29] MEDS: IPRATROPIUM-ALBUTEROL 3 ML NEB INHALATION SCH ×2 (16:22→20:28)
[2019-12-29 16:35] LABS: Glucose,Whole Blood 199 mg/dL (75-99)
[2019-12-29] MEDS: INSULIN ASPART (NovoLOG) 100 UNIT/ML VIAL SQ SCH ×2 (17:15→20:50)
[2019-12-29 20:07] LABS: Glucose,Whole Blood 289 mg/dL (75-99)
[2019-12-29] MEDS: SYMBICORT 160-4.5 MCG INHALER INHALATION SCH (20:28)
[2019-12-29] MEDS: METOPROLOL TARTRATE 25 MG TAB PO SCH (20:49)
[2019-12-29] MEDS: levETIRAcetam 500 MG TAB PO SCH (20:49)
[2019-12-30 07:52] LABS: Glucose,Whole Blood 309 mg/dL (75-99)
[2019-12-30 07:58] VITALS: BP 142/73; RESP 16; TEMP 98.1
[2019-12-30] MEDS: METOPROLOL TARTRATE 25 MG TAB PO SCH (08:23)
[2019-12-30] MEDS: levETIRAcetam 500 MG TAB PO SCH (08:23)
[2019-12-30] MEDS: INSULIN ASPART (NovoLOG) 100 UNIT/ML VIAL SQ SCH ×2 (08:23→12:20)
[2019-12-30] MEDS ORDERED: ATORVASTATIN 20 MG TAB PO SCH (09:00)
[2019-12-30] MEDS ORDERED: RIVAROXABAN 15 MG TAB PO SCH (09:00)
[2019-12-30] MEDS ORDERED: amLODIPine 10 MG TAB PO SCH (09:00)
[2019-12-30] MEDS ORDERED: PARoxetine 20 MG TAB PO SCH (09:00)
[2019-12-30] MEDS ORDERED: LISINOPRIL 20 MG TAB PO SCH (09:00)
[2019-12-30 09:42] LABS: Calcium 9.1 mg/dL (8.4-10.2); Potassium 5.1 mmol/L (3.5-5.1)
[2019-12-30] MEDS: IPRATROPIUM-ALBUTEROL 3 ML NEB INHALATION SCH ×2 (10:47→13:38)
[2019-12-30] MEDS: SYMBICORT 160-4.5 MCG INHALER INHALATION SCH (10:47)
[2019-12-30 12:04] LABS: Glucose,Whole Blood 353 mg/dL (75-99)
[2019-12-30] MEDS: SODIUM CHLORIDE 0.9% 1,000 ML IV SCH (12:14)
[2019-12-30 13:47] VITALS: PULSE 76
--- NOTE | 2019-12-30 15:12 | P.DS ---
Providers Date of admission: 12/29/19 11:46 Expected date of discharge: 12/30/19 Attending physician: Omega Bruno Primary care physician: Renzo Boyer [facility] Course: Final diagnosis -Confusion and slurred speech: Secondary to medications he received for his epidural and steroid injection -Toxic encephalopathy secondary to above -Hypoglycemia -COPD with mild acute exacerbation -History of lung cancer on immunotherapy patient has metastatic lung cancer. 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 -Back pain -Hyperlipidemia -Hypertension -History of diabetes mellitus -history of DVT -benign prostatic hypertrophy -Hyperlipidemia -History of CVA TIA in the past no history of atrial fibrillation -depression Discharge disposition Patient is being discharged in a stable condition with guarded prognosis to home and will follow-up with Dr. Boyer upon discharge. Patient will continue on a lower dose of his Lantus at 50 units at bedtime and instructed to continue monitoring blood sugars before meals at bedtime and keep a diary for primary care follow-up. Patient will also continue on bronchodilators and prescriptions were provided. Total time taken is 35 minutes. History of present illness Patient is a pleasant 74-year-old male was sent in from postop to ER with concerns of cerebrovascular accident. Patient received epidural injection following that patient was very slow coming out of anesthesia and had some some slurred speech and confusion because of which a there was a concern and patient was sent to ER. Patient although I valid the patient is alert oriented 2-3 close to his baseline denied any tingling numbness no weakness was appreciated which resolved. Patient scored hypotension on and it scale all of which is attributed to slurred speech and confusion. CT angios the head and neck along with the CT of the head did not show any significant abnormality. Patient does have history of lung cancer on immunotherapy metastatic lung cancer. Patient does have COPD quit smoking years ago. Patient is wheezing on exam. Other issues patient blood sugars were extremely low today and apparently they were low yesterday to patient is on very high-dose of insulin at home. Patient denied any fever chills cough. Patient denied dysuria. Denied any body aches flulike symptoms. 12/30/2019 Patient is seen and evaluated today in follow-up and blood sugars have improved and patient will continue on sliding scale and insulin with meals along with a decrease in his Levemir at 50 units at night. Patient was taking 80 units at bedtime. Patient instructed to keep a diary of blood glucose readings in the amount of insulin used for primary care provider follow-up. On exam patient is not having any wheezing although does have diminished air entry bilaterally. Prescription provided for bronchodilator treatment as he states he was out. Patient instructed to continue with breathing treatments 3 times daily and when necessary as needed. Patient instructed to follow-up with primary care provider Dr. Boyer upon discharge. Recommend repeat labs in 2-3 days to monitor creatinine is currently 1.47. Lasix is being held until follow-up with primary care provider. Currently no per reports of chest pain, palpitations, or worsening shortness of breath. Patient is afebrile. No reports of nausea or vomiting and patient is tolerating diet. Patient also instructed to follow-up with pain management in the outpatient setting as he just received an epidural injection in the upper back for neck pain and back pain. Currently patient's condition is stable and is ready for discharge today. On exam vital signs are stable. Temp is 98.1F, pulse is 81, respirations are 16, blood pressure is 142/73, oxygen saturation is 94% on room air. Cardio S1, S2 are present. Respiratory shows diminished breath sounds bilaterally with no wheezing or rhonchi noted. Abdomen is soft and nontender. Nervous system system shows no focal deficits. Please refer to medication reconciliation sheet for a list of medications. Patient Condition at Discharge: Stable Plan - Discharge Summary New Discharge Prescriptions: Continue Simvastatin [Zocor] 40 mg PO DAILY amLODIPine [Norvasc] 10 mg PO DAILY levETIRAcetam [Keppra] 500 mg PO BID Rivaroxaban [Xarelto] 15 mg PO DAILY #30 tab Metoprolol Tartrate 25 mg PO BID #60 tab INSULIN ASPART (NovoLOG) [NovoLOG (formulary)] 10 unit SQ AC-TID #1 vial Lisinopril 20 mg PO DAILY #0 Fluticasone/Salmeterol [Advair Hfa 115-21 Mcg Inhaler] 2 puff INHALATION RT- BID PARoxetine [Paxil] 20 mg PO DAILY Albuterol Sulfate [Proair Hfa] 2 puff INHALATION RT-Q4H PRN PRN Reason: Shortness Of Breath Omeprazole Magnesium [PriLOSEC OTC] 20 mg PO DAILY PRN PRN Reason: GERD Ipratropium-Albuterol Nebulize [Duoneb 0.5 mg-3 mg/3 ml Soln] 3 ml INHALATION RT-TID #100 neb Changed Insulin Detemir (Levemir) [Levemir] 50 unit SQ HS #0 Discontinued Furosemide [Lasix] 40 mg PO DAILY PRN #1 PRN Reason: Edema Discharge Medication List Simvastatin [Zocor] 40 mg PO DAILY 07/30/19 [History] amLODIPine [Norvasc] 10 mg PO DAILY 07/30/19 [History] levETIRAcetam [Keppra] 500 mg PO BID 07/30/19 [History] Metoprolol Tartrate 25 mg PO BID #60 tab 09/10/19 [Rx] Rivaroxaban [Xarelto] 15 mg PO DAILY #30 tab 09/10/19 [Rx] INSULIN ASPART (NovoLOG) [NovoLOG (formulary)] 10 unit SQ AC-TID #1 vial 10/25/19 [Rx] Lisinopril 20 mg PO DAILY #0 10/25/19 [Rx] Albuterol Sulfate [Proair Hfa] 2 puff INHALATION RT-Q4H PRN 12/29/19 [History] Fluticasone/Salmeterol [Advair Hfa 115-21 Mcg Inhaler] 2 puff INHALATION RT-BID 12/29/19 [History] Omeprazole Magnesium [PriLOSEC OTC] 20 mg PO DAILY PRN 12/29/19 [History] PARoxetine [Paxil] 20 mg PO DAILY 12/29/19 [History] Insulin Detemir (Levemir) [Levemir] 50 unit SQ HS #0 12/30/19 [Rx] Ipratropium-Albuterol Nebulize [Duoneb 0.5 mg-3 mg/3 ml Soln] 3 ml INHALATION RT-TID #100 neb 12/30/19 [Rx] Follow up Appointment(s)/Referral(s): Renzo Boyer MD [Primary Care Provider] - 01/05/20 8:30 am Ambulatory/Diagnostic Orders: Basic Metabolic Panel [LAB.AMB] Time Frame: 2 Days, Location: None Selected Patient Instructions/Handouts: Hypoglycemia in a Person with Diabetes (DC) Activity/Diet/Wound Care/Special Instructions: Activity Limited until follow-up Follow-up with primary care provider upon discharge Follow-up with pain management in the outpatient setting Continue to monitor blood sugars before meals at bedtime and keep a diary or log for primary care follow-up of your blood pressure readings along with how much insulin your using Decrease Levemir to 50 units at night Continue current diet Continue with breathing treatments Discharge Disposition: HOME SELF-CARE
== END 2019-12-30 14:57 | disposition home or self-care (01) ==
LOC: EC 10:08 → 6NMEDSUR 11:46
PROVIDERS: ADMIT Internal Medicine; ATTEND Internal Medicine
DX: R41.0 Disorientation, unspecified (principal); T42.75XA Adverse effect of unspecified antiepileptic and sedative-hypnotic drugs, initial encounter; Y92.238 Other place in hospital as the place of occurrence of the external cause; R47.81 Slurred speech; E11.649 Type 2 diabetes mellitus with hypoglycemia without coma; J44.1 Chronic obstructive pulmonary disease with (acute) exacerbation; G92 Toxic encephalopathy; C34.92 Malignant neoplasm of unspecified part of left bronchus or lung; C79.9 Secondary malignant neoplasm of unspecified site; I25.10 Atherosclerotic heart disease of native coronary artery without angina pectoris; I12.9 Hypertensive chronic kidney disease with stage 1 through stage 4 chronic kidney disease, or unspecified chronic kidney disease; N18.3 Chronic kidney disease, stage 3 (moderate); E11.22 Type 2 diabetes mellitus with diabetic chronic kidney disease; E78.5 Hyperlipidemia, unspecified; I25.2 Old myocardial infarction; M19.90 Unspecified osteoarthritis, unspecified site; N40.0 Benign prostatic hyperplasia without lower urinary tract symptoms; G40.909 Epilepsy, unspecified, not intractable, without status epilepticus; F41.9 Anxiety disorder, unspecified; F32.9 Major depressive disorder, single episode, unspecified; Z86.718 Personal history of other venous thrombosis and embolism; Z86.73 Personal history of transient ischemic attack (TIA), and cerebral infarction without residual deficits; Z90.2 Acquired absence of lung [part of]; Z92.25 Personal history of immunosuppression therapy; G89.29 Other chronic pain; M54.2 Cervicalgia; M54.9 Dorsalgia, unspecified; Z87.891 Personal history of nicotine dependence; Z83.3 Family history of diabetes mellitus; Z98.890 Other specified postprocedural states; Z90.49 Acquired absence of other specified parts of digestive tract; Z90.89 Acquired absence of other organs; Z98.42 Cataract extraction status, left eye; Z98.41 Cataract extraction status, right eye; Z79.899 Other long term (current) drug therapy; Z79.4 Long term (current) use of insulin; Z79.01 Long term (current) use of anticoagulants
CPT/HCPCS: 96374; 96375; 99285; 36415; 94640 ×4; 93005; 80053; 80048; 82550; 82553; 82803; 84484; 85025; 85610; 85730; 71045; 70496; 70450; 70498; G0378 ×2; J2405; Q9967

== ENCOUNTER → 2020-03-22 | Outpatient (CLI) | payer MEDICARE, OTHER ==
--- NOTE | 2020-03-22 15:28 | CT ---
EXAMINATION TYPE: CT chest wo con DATE OF EXAM: 03/22/2020 COMPARISON: 12/24/2019 HISTORY: follow up lung cancer CT DLP: 442.1 mGycm. Automated Exposure Control for Dose Reduction was Utilized. TECHNIQUE: CT scan of the thorax is performed without IV contrast. FINDINGS: LUNGS: There are stable scattered mild tree-in-bud opacities such as marked on image 28 of series 4. The solid right upper lobe pulmonary nodule measuring 1.1 cm is also unchanged as are bilateral lower lobe and lingular pulmonary nodules. There is marked improvement of a nodular density in the left mi dlung that may have represented an area of scarring with current retraction or cancers 4 image 35 cur rently and previously seen also on series 4 image 35 of the exam of 12/24/2019. There is no pleural effusion or pneumothorax seen. The tracheobronchial tree is patent. Very mild left hemidiaphragm nicol vation incidentally seen. Surgical sutures of the medial right lower lobe from prior surgical resecti on are again noted with continued decrease in size of the adjacent nodular density previously measuri ng 6 mm now measuring 4 mm, likely evolving scarring. MEDIASTINUM: Lack of IV contrast is noted to limit evaluation for mediastinal and especially hilar ad enopathy. There are no definitive greater than 1 cm hilar or mediastinal lymph nodes. No cardiomega ly or pericardial effusion is seen. Redemonstration of moderate to severe three-vessel coronary arter y calcifications. OTHER: There is a small hiatal hernia. Duodenal diverticulum incidentally seen of the transverse port ion of the duodenum. Punctate pancreatic calcification indicative of chronic pancreatitis and severe pancreatic parenchymal atrophy. Gallbladder surgically absent. Diastases recti is seen. Very slight n odularity of the left adrenal gland is again unchanged. Mild multilevel degenerative change of the sp ine. IMPRESSION: Stable tree-in-bud opacities and multiple bilateral pulmonary nodules in comparison to the exam of . 2 nodules have decreased in size and elongated now appearing as retracting scars. No new karen picious gross adenopathy or new suspicious nodule.
== END | disposition home or self-care (01) ==
LOC: RADCTMAIN 13:53
PROVIDERS: ATTEND Internal Medicine Hematology & Oncology
DX: C34.12 Malignant neoplasm of upper lobe, left bronchus or lung (principal)
CPT/HCPCS: 71250

== ENCOUNTER → 2020-03-26 | Outpatient (CLI) | payer MEDICARE, OTHER ==
[2020-03-26 19:48] LABS: African American GFR (CKD) 37.3 (60.0-200.0); Calcium 9.6 mg/dL (8.7-10.3); Non-African American GFR(CKD) 32.2 (60.0-200.0)
== END | disposition home or self-care (01) ==
LOC: LABWHC1 10:15
PROVIDERS: ATTEND Internal Medicine
DX: E87.5 Hyperkalemia (principal)
CPT/HCPCS: 36415; 80048

== ENCOUNTER → 2020-06-18 | Outpatient (CLI) | payer MEDICARE, OTHER ==
--- NOTE | 2020-06-20 19:41 | CT ---
EXAMINATION TYPE: CT ChestAbdPelvis wo con DATE OF EXAM: 06/18/2020 COMPARISON: CT chest 03/22/2020. HISTORY: follow up lung cancer CT DLP: 889.3 mGycm. Automated Exposure Control for Dose Reduction was Utilized. TECHNIQUE: CT scan of the thorax, abdomen and pelvis is performed without IV contrast. FINDINGS: Lack of intravenous contrast limits evaluation for solid and hollow visceral organ metastatic disease . LUNGS: No evidence of new pulmonary mass or nodule. Scattered tree-in-bud opacities of the bilateral lungs are not significantly changed versus 03/22/2020 comparison. Right upper lobe 11 mm pulmonary nod ule (4:27), 3 mm right lower lobe pulmonary nodule (4:49), 3 mm left lower lobe pulmonary nodule (4:3 3), and 5 mm pulmonary nodules of the left upper lobe (4:40) are unchanged versus 03/22/2020. Decrease d size and fullness of a pulmonary nodule in the right lower lobe near the base (4:55) measuring up t o 7 mm, and was previously 9 mm on 03/22/2020 comparison. There is no pleural effusion or pneumothorax seen. The tracheobronchial tree is patent. MEDIASTINUM: There are no greater than 1 cm hilar or mediastinal lymph nodes. Heart size normal. Calc ified coronary artery disease. No pericardial effusion is seen. OTHER: No axillary adenopathy. LIVER/GB: Normal attenuation and size of the liver. Status post cholecystectomy. No intrahepatic or e xtrahepatic biliary ductal dilatation. PANCREAS: Severe fatty atrophy of the pancreas. SPLEEN: Not enlarged. ADRENALS: No nodules. KIDNEYS: No hydronephrosis or urolithiasis. Exophytic left renal cyst of the lower pole. BOWEL: Small hiatal hernia. No evidence of bowel obstruction. Redemonstrated duodenal diverticulum. C olonic diverticulosis with no acute diverticulitis. Normal appendix. PERITONEUM: No pneumoperitoneum or free fluid. PELVIS: Unremarkable unenhanced appearance of the urinary bladder and prostate. LYMPH NODES: No abdominal pelvic lymphadenopathy. VASCULATURE: No abdominal aortic aneurysm. Moderate calcified atherosclerotic disease. OSSEOUS STRUCTURES: No aggressive osseous destructive lesions. Redemonstrated right iliac benign bone island. Degenerative changes of the spine. IMPRESSION: 1. Unchanged tree-in-bud opacities of the bilateral lungs versus 03/22/2020 comparison. The majority o f the pulmonary nodules are also unchanged, with decreased size of a pulmonary nodule within the righ t lower lobe. No new pulmonary nodules or masses. 2. No evidence of metastatic lung cancer of the abdomen or pelvis within limits of noncontrast examin ation.
== END | disposition home or self-care (01) ==
LOC: RADCTMAIN 08:01
PROVIDERS: ATTEND Internal Medicine Hematology & Oncology
DX: C34.12 Malignant neoplasm of upper lobe, left bronchus or lung (principal); N18.9 Chronic kidney disease, unspecified
CPT/HCPCS: 71250; 74176

== ENCOUNTER 2020-07-06 13:46 | Inpatient (IN) | payer MEDICARE, OTHER ==
[2020-07-06] MEDS ORDERED: SODIUM CHLORIDE 0.9% 1,000 ML IV ONE (13:54)
--- NOTE | 2020-07-06 14:07 | ED ---
General Adult HPI - General Stated complaint: Stroke Symptoms Time Seen by Provider: 07/06/20 13:46 Source: patient, RN notes reviewed, old records reviewed - History of Present Illness Initial comments: This is a 74-year-old male presents emergency Department complaining of left- sided weakness and started 1245. Patient states his foot and arm were weak and EMS noted that his facial droop was on the left as well. Patient had no slurred speech he denies any headache he denies any blurred vision. When the patient arrived to the emergency department he stated his extremities did not feel weak and on EMS verified that they completely resolve however the patient still has slight facial droop on the left. Patient had no slurred speech at this time. Patient denied any chest pain palpitations difficulty breathing first breath. Patient denies any abdominal pain patient denies nausea vomiting diarrhea per patient denies any recent fever chills or cough. - Related Data Home Medications Medication Instructions Recorded Confirmed Simvastatin [Zocor] 40 mg PO DAILY 07/30/19 12/29/19 amLODIPine [Norvasc] 10 mg PO DAILY 07/30/19 12/29/19 levETIRAcetam [Keppra] 500 mg PO BID 07/30/19 12/29/19 Albuterol Sulfate [Proair Hfa] 2 puff INHALATION RT-Q4H PRN 12/29/19 12/29/19 Fluticasone/Salmeterol [Advair Hfa 2 puff INHALATION RT-BID 12/29/19 12/29/19 115-21 Mcg Inhaler] Omeprazole Magnesium [PriLOSEC OTC] 20 mg PO DAILY PRN 12/29/19 12/29/19 PARoxetine [Paxil] 20 mg PO DAILY 12/29/19 12/29/19 Previous Rx's Medication Instructions Recorded Metoprolol Tartrate 25 mg PO BID #60 tab 09/10/19 Rivaroxaban [Xarelto] 15 mg PO DAILY #30 tab 09/10/19 INSULIN ASPART (NovoLOG) [NovoLOG 10 unit SQ AC-TID #1 vial 10/25/19 (formulary)] lisinopriL 20 mg PO DAILY #0 10/25/19 Insulin Detemir (Levemir) [Levemir] 50 unit SQ HS #0 12/30/19 Ipratropium-Albuterol Nebulize 3 ml INHALATION RT-TID #100 neb 12/30/19 [Duoneb 0.5 mg-3 mg/3 ml Soln] Allergies Allergy/AdvReac Type Severity Reaction Status Date / Time No Known Allergies Allergy Verified 12/29/19 11:31 Review of Systems ROS Statement: Those systems with pertinent positive or pertinent negative responses have been documented in the HPI. ROS Other: All systems not noted in ROS Statement are negative. Past Medical History Past Medical History: Coronary Artery Disease (CAD), Cancer, COPD, CVA/TIA, Diabetes Mellitus, Deep Vein Thrombosis (DVT), Hyperlipidemia, Hypertension, Myocardial Infarction ([place]), Osteoarthritis (OA), Pneumonia, Prostate Disorder, Seizure Disorder Additional Past Medical History / Comment(s): 07/2018 L lung cancer with left upper lobectomy/IV chemo but pt states he quit taking chemo early then diagnosed with R lower lobe cancer in August 2019 and had wedge resection and i mmunotherapy every 3 weeks, bronchitis, TIA and seizure after bronchoscopy in 2017, DVT L leg, IDDM type II, chronic cervical/back pain, diabetes mellitus, occasional bilateral ankle edema, BPH, chronic stage III kidney disease Last Myocardial Infarction Date:: 05/24/12 History of Any Multi-Drug Resistant Organisms: None Reported Past Surgical History: Back Surgery, Cholecystectomy, Heart Catheterization, Hernia Repair, Tonsillectomy Additional Past Surgical History / Comment(s): 2017 Bronchoscopy with bx, 2017 L upper lobectomy at [facility], August 2019 R lower lung wedge resection, low back surgery, 2011 cardiac cath-treat medically, umbilical hernia repair, bilateral cataract removals Past Anesthesia/Blood Transfusion Reactions: Previous Problems w/ Anesthesia Additional Past Anesthesia/Blood Transfusion Reaction / Comment(s): Seizure and mini stroke following lung biopsy Past Psychological History: Anxiety, Depression Additional Psychological History / Comment(s): Pt resides with his son. He has a nebulizer. Pt drives. Past Alcohol Use History: None Reported Additional Past Alcohol Use History / Comment(s): Pt started smoking in 1 and quit in 1995. He was a 2ppd smoker. Past Drug Use History: None Reported - Past Family History Mother Family Medical History: No Reported History Additional Family Medical History / Comment(s): Mother was healthy Father Family Medical History: Diabetes Mellitus Additional Family Medical History / Comment(s): Father of diabetes at the age of 83 yrs. General Exam - General Exam Comments Initial Comments: GENERAL: Patient is well-developed and well-nourished. Patient is nontoxic and well- hydrated and is in no acute distress. ENT: Neck is soft and supple. No significant lymphadenopathy is noted. Oropharynx is clear. Moist mucous membranes. Neck has full range of motion without eliciting any pain. EYES: The sclera were anicteric and conjunctiva were pink and moist. Extraocular movements were intact and pupils were equal round and reactive to light. Eyelids were unremarkable. PULMONARY: Unlabored respirations. Good breath sounds bilaterally. No audible rales rhonchi or wheezing was noted. CARDIOVASCULAR: There is a regular rate and rhythm without any murmurs gallops or rubs. ABDOMEN: Soft and nontender with normal bowel sounds. SKIN: Skin is clear with no lesions or rashes and otherwise unremarkable. NEUROLOGIC: Patient is alert and oriented x3. Patient is very slight facial droop on the left. Motor and sensory are also intact. Normal speech, volume and content. Symmetrical smile. MUSCULOSKELETAL: Normal extremities with adequate strength and full range of motion. LYMPHATICS: No significant lymphadenopathy is noted PSYCHIATRIC: Normal psychiatric evaluation. Course Vital Signs 07/06/20 07/06/20 13:53 14:22 Temperature 98.1 F Pulse Rate 70 Respiratory 16 Rate Blood Pressure 143/83 131/76 O2 Sat by Pulse 100 Oximetry Medical Decision Making - Medical Decision Making EKG shows normal sinus rhythm at 71 bpm AL interval 256 dresses 92 QT interval 44 QTC is 439. Patient's EKG shows no ST segment elevation or depression. CT of the brain shows no acute abnormality. Code stroke was called immediately after I interviewed the patient. I spoke with the [facility] he agreed to admit the patient admitted the patient I wrote admitting orders. I spoke with Dr. Mcdowell and he agreed no TPA was indicated at this time. I consult the neurology. Patient still has some slight facial droop on the left - Lab Data Result diagrams: 07/06/20 14:13 07/06/20 14:13 Lab Results 07/06/20 07/06/20 07/06/20 Range/Units 13:57 14:13 14:13 WBC 7.6 (3.8-10.6) k/uL RBC 3.89 L (4.30-5.90) m/uL Hgb 11.6 L (13.0-17.5) gm/dL Hct 34.9 L (39.0-53.0) % MCV 89.7 (80.0-100.0) fL MCH 29.7 (25.0-35.0) pg MCHC 33.1 (31.0-37.0) g/dL RDW 13.7 (11.5-15.5) % Plt Count 175 (150-450) k/uL Neutrophils % 76 % Lymphocytes % 12 % Monocytes % 5 % Eosinophils % 5 % Basophils % 0 % Neutrophils # 5.8 (1.3-7.7) k/uL Lymphocytes # 0.9 L (1.0-4.8) k/uL Monocytes # 0.3 (0-1.0) k/uL Eosinophils # 0.4 (0-0.7) k/uL Basophils # 0.0 (0-0.2) k/uL PT 12.8 H (9.0-12.0) sec INR 1.3 H (<1.2) APTT 31.8 H (22.0-30.0) sec Sodium (137-145) mmol/L Potassium (3.5-5.1) mmol/L Chloride (98-107) mmol/L Carbon Dioxide (22-30) mmol/L Anion Gap mmol/L BUN (9-20) mg/dL Creatinine (0.66-1.25) mg/dL Est GFR (CKD-EPI)AfAm (>60 ml/min/1.73 sqM) Est GFR (CKD-EPI)NonAf (>60 ml/min/1.73 sqM) Glucose (74-99) mg/dL POC Glucose (mg/dL) 100 H (75-99) mg/dL POC Glu Manager Video ID Occitan, Kathryn Calcium (8.4-10.2) mg/dL Total Bilirubin (0.2-1.3) mg/dL AST (17-59) U/L ALT (4-49) U/L Alkaline Phosphatase (38-126) U/L Total Protein (6.3-8.2) g/dL Albumin (3.5-5.0) g/dL 07/06/20 Range/Units 14:13 WBC (3.8-10.6) k/uL RBC (4.30-5.90) m/uL Hgb (13.0-17.5) gm/dL Hct (39.0-53.0) % MCV (80.0-100.0) fL MCH (25.0-35.0) pg MCHC (31.0-37.0) g/dL RDW (11.5-15.5) % Plt Count (150-450) k/uL Neutrophils % % Lymphocytes % % Monocytes % % Eosinophils % % Basophils % % Neutrophils # (1.3-7.7) k/uL Lymphocytes # (1.0-4.8) k/uL Monocytes # (0-1.0) k/uL Eosinophils # (0-0.7) k/uL Basophils # (0-0.2) k/uL PT (9.0-12.0) sec INR (<1.2) APTT (22.0-30.0) sec Sodium 140 (137-145) mmol/L Potassium 5.0 (3.5-5.1) mmol/L Chloride 107 (98-107) mmol/L Carbon Dioxide 25 (22-30) mmol/L Anion Gap 8 mmol/L BUN 28 H (9-20) mg/dL Creatinine 1.64 H (0.66-1.25) mg/dL Est GFR (CKD-EPI)AfAm 47 (>60 ml/min/1.73 sqM) Est GFR (CKD-EPI)NonAf 41 (>60 ml/min/1.73 sqM) Glucose 122 H (74-99) mg/dL POC Glucose (mg/dL) (75-99) mg/dL POC Glu Manager Video ID Calcium 9.0 (8.4-10.2) mg/dL Total Bilirubin 0.4 (0.2-1.3) mg/dL AST 18 (17-59) U/L ALT 13 (4-49) U/L Alkaline Phosphatase 84 (38-126) U/L Total Protein 5.8 L (6.3-8.2) g/dL Albumin 3.6 (3.5-5.0) g/dL Critical Care Time Critical Care Time: Yes Total Critical Care Time: 35 Disposition Clinical Impression: Cerebrovascular accident (CVA) Disposition: ADMITTED IP TO THIS HOSP Referrals: Renzo Boyer MD [Primary Care Provider] - 1-2 days Time of Disposition: 14:47
--- NOTE | 2020-07-06 14:15 | CT ---
EXAMINATION TYPE: CT brain wo con for TPA DATE OF EXAM: 07/06/2020 COMPARISON: 12/29/2019 HISTORY: 74-year-old male Weakness. History of lung cancer. TECHNIQUE: Examination was done in axial plane without intravenous contrast. Coronal and sagittal r econstructions performed. CT DLP: 1151.4 mGycm Automated exposure control for dose reduction was used. FINDINGS: There is no evidence of acute intracranial hemorrhage, acute ischemic changes, mass, mass-effect, or extra-axial fluid collection. There is no effacement of cerebral sulci or basal subarachnoid cister ns. There is no hydrocephalus. There is no midline shift. Alvarado-white matter distinction is preserv ed. Mild generalized supratentorial volume loss and moderate patchy white matter hypodensities in both ce rebral hemispheres. Paranasal sinuses and mastoid air cells well pneumatized. Orbits and globes are intact. IMPRESSION: Similar mild generalized atrophy and moderate patchy changes of chronic small vessel ischemic disease . No acute intracranial abnormality seen.
[2020-07-06 14:17] LABS: Glucose,Whole Blood 100 mg/dL (75-99)
[2020-07-06 14:25] LABS: Basophils % (A) 0 %; Eosinophils # (A) 0.4 k/uL (0-0.7); Eosinophils % (A) 5 %; HCT 34.9 % (39.0-53.0); HGB 11.6 gm/dL (13.0-17.5); Lymphocytes # (A) 0.9 k/uL (1.0-4.8); Lymphocytes % (A) 12 %; MCH 29.7 pg (25.0-35.0); MCHC 33.1 g/dL (31.0-37.0); MCV 89.7 fL (80.0-100.0); Mean Platelet Volume 7.9; Monocytes # (A) 0.3 k/uL (0-1.0); Monocytes % (A) 5 %; Neutrophils # (A) 5.8 k/uL (1.3-7.7); Neutrophils % (A) 76 %; Platelet Count 175 k/uL (150-450); RBC 3.89 m/uL (4.30-5.90); RDW 13.7 % (11.5-15.5); WBC 7.6 k/uL (3.8-10.6)
[2020-07-06 14:34] LABS: Albumin 3.6 g/dL (3.5-5.0); Total Bilirubin 0.4 mg/dL (0.2-1.3); Total Protein 5.8 g/dL (6.3-8.2)
[2020-07-06 14:45] LABS: INR 1.3 (<1.2); Partial Thromboplastin Time 31.8 sec (22.0-30.0); Prothrombin Time 12.8 sec (9.0-12.0)
[2020-07-06] MEDS ORDERED: ASPIRIN 325 MG TAB PO STA (14:48)
[2020-07-06] MEDS ORDERED: METOCLOPRAMIDE 5 MG/ML 2 ML VIAL IVP STA (15:01)
[2020-07-06 16:56] LABS: Glucose,Whole Blood 150 mg/dL (75-99)
--- NOTE | 2020-07-06 17:46 | XR ---
EXAMINATION TYPE: XR chest 2V DATE OF EXAM: 07/06/2020 COMPARISON: 12/29/2019 HISTORY: Altered mental status TECHNIQUE: 2 views FINDINGS: Heart and mediastinum are normal. Lungs are clear. Diaphragm is normal. Bony thorax is inta ct. There are chest leads. IMPRESSION: No active cardiopulmonary disease. Normal heart. No change.
--- NOTE | 2020-07-06 18:15 | US ---
EXAMINATION TYPE: US carotid duplex BILAT DATE OF EXAM: 07/06/2020 COMPARISON: CTA 12/29/19 US 10/03/15 CLINICAL HISTORY: stroke. EXAM MEASUREMENTS: RIGHT: Peak Systolic Velocity (PSV) cm/sec ----- Right CCA: 62.5 ----- Right ICA: 118.0 ----- Right ECA: 67.2 ICA/CCA ratio: 1.9 RIGHT: End Diastole cm/sec ----- Right CCA: 12.0 ----- Right ICA: 13.6 ----- Right ECA: 6.3 LEFT: Peak Systolic Velocity (PSV) cm/sec ----- Left CCA: 79.0 ----- Left ICA: 77.5 ----- Left ECA: 94.4 ICA/CCA ratio: 1.0 LEFT: End Diastole cm/sec ----- Left CCA: 17.6 ----- Left ICA: 15.4 ----- Left ECA: 7.7 VERTEBRALS (direction of flow): Right Vertebral: Antegrade Left Vertebral: Antegrade Rhythm: Normal Plaque seen in B/L bulbs. B/L intimal thickening. No elevated velocities. No significant stenosis see n. IMPRESSION: There is antegrade flow in the vertebral arteries. Images and measurements suggest 30% stenosis in maira th internal carotid arteries. No adverse change compared to old exam. Criteria for Assigning % of Stenosis / Diameter reduction (Estimation based on the indirect measurements of the internal carotid artery velocities (ICA PSV). 1. Normal (no stenosis)=ICA PSV < 125 cm/s: ratio < 2.0: ICA EDV<40 cm/s. 2. Less than 50% stenosis=ICA PSV < 125 cm/s: ratio < 2.0: ICA EDV<40 cm/s. 3. 50 to 69% stenosis=ICA PSV of 125 to 230 cm/s: ration 2.0 ? 4.0: ICA EDV 40-100 cm/s. 4. Greater than 70% stenosis to near occlusion= ICA PSV > 230 cm/s: ratio > 4.0: ICA EDV > 100 cm/s. 5. Near occlusion= ICA PSV velocities may be low or undetectable: variable ratio and ICA EDV. 6. Total occlusion=unable to detect flow.
[2020-07-06] MEDS: INSULIN ASPART (NovoLOG) 100 UNIT/ML VIAL SQ SCH (18:21)
[2020-07-06] MEDS: IPRATROPIUM-ALBUTEROL 3 ML NEB INHALATION SCH (19:13)
[2020-07-06] MEDS ORDERED: NON FORMULARY DRUG (Lisinopril [Lisinopril] 40 MG) PO SCH (21:00)
[2020-07-06 21:15] LABS: Glucose,Whole Blood 230 mg/dL (75-99)
[2020-07-06] MEDS: INSULIN DETEMIR (LEVEMIR) 100 UNIT/ML SYR SQ SCH (21:51)
[2020-07-06] MEDS: METOPROLOL TARTRATE 25 MG TAB PO SCH (21:51)
[2020-07-06] MEDS: amLODIPine 10 MG TAB PO SCH (21:51)
[2020-07-06] MEDS: levETIRAcetam 500 MG TAB PO SCH (21:51)
--- NOTE | 2020-07-07 01:00 | P.HPIM ---
History of Present Illness H&P Date: 07/06/20 Chief Complaint: Slurred speech Patient is a 74-year-old male with a known history of hypertension, hyperlipidemia, diabetes type 2 insulin-dependent, history of CVA/TIA, COPD on home oxygen and chronic hypoxic respiratory failure, history of DVT, osteoarthritis, seizure disorder and left lung cancer with left upper lobectomy/IV chemotherapy currently on immunotherapy and chronic cervical/back pain with occasional intra-articular steroid injections, BPH and CKD and other multiple medical problems presents to ER with complaints of left-sided weakness started around 11:30 AM today patient states that he was also having slurred speech and headache. EMS noted to have left facial droop as well. Otherwise denied any palpitations. No blurred vision. No shortness of breath. By the time he arrived to the ER his weakness as well as slurred speech is almost resolved. Denied any nausea vomiting or abdominal pain. No recent illnesses or recent travel. CT head showed similar mild generalized atrophy and moderate patchy changes of the chronic small vessel ischemic disease. No acute intracranial abnormality seen. Chest x-ray showed no acute cardiopulmonary process EKG showed normal sinus rhythm. Laboratory data showed WBC 7.6, hemoglobin 11.6 and platelets 175 INR 1.3 BUN 28 and creatinine 1.64 Review of Systems Constitutional: Patient denies any fever or chills . No generalized weakness or weight loss. Abdomen: Patient denied nausea vomiting and diarrhea and abdominal pain. Cardiovascular: Patient denies any chest pain or short of breath no palpitations. Respiratory: patient denied any cough is from production. No shortness of breath Neurologic: Patient denied any numbness or tingling headache. Musculoskeletal: Patient denies any complaints of joint swelling or deformity. Skin: Negative Psychiatric: Negative Endocrine: No heat or cold intolerance. No recent weight gain. Genitourinary: No dysuria or hematuria. All other 14 point ROS negative except the above Past Medical History Past Medical History: Coronary Artery Disease (CAD), Cancer, COPD, CVA/TIA, Diabetes Mellitus, Deep Vein Thrombosis (DVT), Hyperlipidemia, Hypertension, Myocardial Infarction ([place]), Osteoarthritis (OA), Pneumonia, Prostate Disorder, Seizure Disorder Additional Past Medical History / Comment(s): 07/2018 L lung cancer with left upper lobectomy/IV chemo but pt states he quit taking chemo early then diagnosed with R lower lobe cancer in August 2019 and had wedge resection and immunotherapy every 3 weeks, bronchitis, TIA and seizure after bronchoscopy in 2018, DVT L leg, IDDM type II, chronic cervical/back pain, diabetes mellitus, occasional bilateral ankle edema, BPH, chronic stage III kidney disease Last Myocardial Infarction Date:: 05/24/12 History of Any Multi-Drug Resistant Organisms: None Reported Past Surgical History: Back Surgery, Cholecystectomy, Heart Catheterization, Hernia Repair, Tonsillectomy Additional Past Surgical History / Comment(s): 2018 Bronchoscopy with bx, 2017 L upper lobectomy at [facility], August 2019 R lower lung wedge resection, low back surgery, 2011 cardiac cath-treat medically, umbilical hernia repair, bilateral cataract removals Past Anesthesia/Blood Transfusion Reactions: Previous Problems w/ Anesthesia Additional Past Anesthesia/Blood Transfusion Reaction / Comment(s): Seizure and mini stroke following lung biopsy Past Psychological History: Anxiety, Depression Additional Psychological History / Comment(s): Pt resides with his son. He has a nebulizer. Pt drives. Past Alcohol Use History: None Reported Additional Past Alcohol Use History / Comment(s): Pt started smoking in 1960 and quit in 1995. He was a 2ppd smoker. Past Drug Use History: None Reported - Past Family History Mother Family Medical History: No Reported History Additional Family Medical History / Comment(s): Mother was healthy Father Family Medical History: Diabetes Mellitus Additional Family Medical History / Comment(s): Father of diabetes at the age of 83 yrs. Medications and Allergies Home Medications Medication Instructions Recorded Confirmed Type Simvastatin [Zocor] 40 mg PO DAILY 07/30/19 07/06/20 History amLODIPine [Norvasc] 10 mg PO HS 07/30/19 07/06/20 History levETIRAcetam [Keppra] 500 mg PO BID 07/30/19 07/06/20 History Metoprolol Tartrate 25 mg PO BID #60 tab 09/10/19 07/06/20 Rx Rivaroxaban [Xarelto] 15 mg PO DAILY #30 tab 09/10/19 07/06/20 Rx INSULIN ASPART (NovoLOG) [NovoLOG 10 unit SQ AC-TID #1 vial 10/25/19 07/06/20 Rx (formulary)] Ipratropium-Albuterol Nebulize 3 ml INHALATION RT-TID #100 neb 12/30/19 07/06/20 Rx [Duoneb 0.5 mg-3 mg/3 ml Soln] HYDROcodone/APAP 7.5-325MG [[place] 1 tab PO TID PRN 07/06/20 07/06/20 History 7.5-325] Insulin Detemir [Levemir Flextouch] 80 units SQ HS 07/06/20 07/06/20 History Omeprazole 20 mg PO DAILY 07/06/20 07/06/20 History lisinopriL 40 mg PO HS 07/06/20 07/06/20 History Allergies Allergy/AdvReac Type Severity Reaction Status Date / Time No Known Allergies Allergy Verified 07/06/20 15:02 Physical Exam Vitals: Vital Signs Temp Pulse Resp BP Pulse Ox 07/06/20 14:45 98.1 F 70 18 138/76 99 07/06/20 14:30 98.1 F 68 18 140/72 100 07/06/20 14:22 98.1 F 70 16 131/76 100 07/06/20 14:15 98.1 F 70 16 131/76 100 07/06/20 14:00 98.1 F 72 18 134/68 97 07/06/20 13:53 143/83 Intake and Output 07/06/20 07/06/20 07/06/20 06:59 14:59 22:59 Other: Weight 85.275 kg PHYSICAL EXAMINATION: Patient is lying in the bed comfortably, no acute distress, awake alert and oriented.. HEENT: Normocephalic. Neck is supple. Pupils reactive. Nostrils clear. Oral cavity is moist. Ears reveal no drainage. Neck reveals no JVD, carotid bruits, or thyromegaly. CHEST EXAMINATION: Trachea is central. Symmetrical expansion. Lung wright clear to auscultation and percussion. CARDIAC: Normal S1, S2 with no gallops. No murmurs ABDOMEN: Soft. Bowel sounds normal. No organomegaly. No abdominal bruits. Extremities: reveal no edema. No clubbing or cyanosis Neurologically awake, alert, oriented x3 with well-coordinated movements. No focal deficits noted Skin: No rash or skin lesions. Psychiatric: Coperative. Nonsuicidal Musculoskeletal: No joint swelling or deformity. Normal range of motion. Results CBC & Chem 7: 07/06/20 14:13 07/06/20 14:13 Labs: Abnormal Lab Results - Last 24 Hours (Table) 07/06/20 07/06/20 07/06/20 Range/Units 13:57 14:13 14:13 RBC 3.89 L (4.30-5.90) m/uL Hgb 11.6 L (13.0-17.5) gm/dL Hct 34.9 L (39.0-53.0) % Lymphocytes # 0.9 L (1.0-4.8) k/uL PT 12.8 H (9.0-12.0) sec INR 1.3 H (<1.2) APTT 31.8 H (22.0-30.0) sec BUN (9-20) mg/dL Creatinine (0.66-1.25) mg/dL Glucose (74-99) mg/dL POC Glucose (mg/dL) 100 H (75-99) mg/dL Total Protein (6.3-8.2) g/dL 07/06/20 Range/Units 14:13 RBC (4.30-5.90) m/uL Hgb (13.0-17.5) gm/dL Hct (39.0-53.0) % Lymphocytes # (1.0-4.8) k/uL PT (9.0-12.0) sec INR (<1.2) APTT (22.0-30.0) sec BUN 28 H (9-20) mg/dL Creatinine 1.64 H (0.66-1.25) mg/dL Glucose 122 H (74-99) mg/dL POC Glucose (mg/dL) (75-99) mg/dL Total Protein 5.8 L (6.3-8.2) g/dL Thrombosis Risk Factor Assmnt - DVT/VTE Prophylaxis DVT/VTE Prophylaxis: Pharmacologic Prophylaxis ordered Assessment and Plan Assessment: Left-sided weakness with slurred speech and facial droop. Resolved now. Likely due to TIA. Metastatic adenocarcinoma of the lung currently on immunotherapy. COPD on home oxygen Hypertension Diabetes type 2 insulin-dependent Hyperlipidemia History of DVT of the left lower extremity currently on Xarelto History of left upper lobe resection due to non-small cell lung cancer History of wedge resection of the pulmonary nodule in the right lung. Degenerative joint disease of the spine Anemia of chronic disease Chronic kidney disease stage III BPH Depression Coronary artery disease status post cath.. Medical management was recommended. DVT prophylaxis patient is already on Xarelto. Plan: Patient will be continued on telemetry monitoring. Neurological symptoms have resolved currently. Stroke work-up was ordered including MRI and carotid duplex. Neurology and pulmonary was consulted. Continue with home medications and insulin dosing. Further recommendations based on clinical course. Prognosis guarded. Time with Patient: Greater than 30
[2020-07-07] MEDS: HYDROcodone/APAP 7.5-325MG 1 EACH TAB PO PRN ×2 (03:24→12:22)
[2020-07-07] MEDS: PANTOPRAZOLE 40 MG TABLET PO SCH (06:48)
[2020-07-07 07:14] LABS: Glucose,Whole Blood 90 mg/dL (75-99)
[2020-07-07 07:23] LABS: Basophils % (A) 1 %; Eosinophils # (A) 0.4 k/uL (0-0.7); Eosinophils % (A) 7 %; HCT 32.3 % (39.0-53.0); HGB 10.5 gm/dL (13.0-17.5); Lymphocytes % (A) 18 %; MCH 29.5 pg (25.0-35.0); MCHC 32.6 g/dL (31.0-37.0); MCV 90.7 fL (80.0-100.0); Mean Platelet Volume 7.6; Monocytes # (A) 0.4 k/uL (0-1.0); Monocytes % (A) 7 %; Neutrophils # (A) 3.6 k/uL (1.3-7.7); Neutrophils % (A) 65 %; Platelet Count 162 k/uL (150-450); RBC 3.56 m/uL (4.30-5.90); RDW 13.6 % (11.5-15.5); WBC 5.5 k/uL (3.8-10.6)
[2020-07-07 07:30] LABS: Calcium 8.6 mg/dL (8.4-10.2); Potassium 5.1 mmol/L (3.5-5.1)
[2020-07-07] MEDS: levETIRAcetam 500 MG TAB PO SCH ×2 (08:13→21:33)
[2020-07-07] MEDS: ASPIRIN 81 MG PO SCH (08:14)
[2020-07-07] MEDS: RIVAROXABAN 15 MG TAB PO SCH (08:14)
[2020-07-07] MEDS: ATORVASTATIN 20 MG TAB PO SCH (08:14)
[2020-07-07] MEDS: METOPROLOL TARTRATE 25 MG TAB PO SCH ×2 (08:14→21:33)
[2020-07-07] MEDS: INSULIN ASPART (NovoLOG) 100 UNIT/ML VIAL SQ SCH ×3 (08:15→17:48)
[2020-07-07] MEDS: IPRATROPIUM-ALBUTEROL 3 ML NEB INHALATION SCH ×3 (08:39→18:36)
[2020-07-07] MEDS ORDERED: CLOPIDOGREL 75 MG TAB PO SCH (09:00)
[2020-07-07] MEDS ORDERED: ASPIRIN 325 MG TAB PO SCH (09:00)
--- NOTE | 2020-07-07 10:56 | P.CNNES ---
History of Present Illness Consult date: 07/07/20 Requesting physician: Miguelito Varma Reason for Consult: Concern for stroke for Right sided weakness History of Present Illness: This is a 74-year-old right-handed gentleman with history of seizure disorder, lung cancer who underwent a left upper lobectomy s/p upper lobectomy 07/23/2018 and lung cancer over the right who had chemotherapy in past that is on immunotherapy, diabetes, DVT, hypertension, myocardial infarction ex-tobacco use who presented to the emergency department on 07/06/2020 because of left facial w eakness and slurred speech. Per patient his symptom also was 12:30 PM on 07/06/2020. He said that his family members noted that he was having slurring the speech and the patient was feeling numb on both hands up to the mid forearm bilaterally. He does not recall which side of the face was weak but he said when he was in the hospital he was told it was the left side that. He said his symptoms lasted less than less than 1 hour but according to the ED note they still noted the the left facial weakness. He denied any headache associated with this any visual disturbance and and any other weakness or numbness other than what stated above. Denied any urinary or bowel problems. There is no se izure-like activity during this episode. I contacted the patient's son via phone and spoke with patient's son and his [id number] who stated at 12:30pm he started having left facial weakness and slurring speech and hand was tingling. His sugar has been fluctuating in past 1 week, two days ago was 40. Per family members they stated the patient did not have any jerking episodes today no tongue bite or urinary or bowel incontinence. Upon presentation the patient's vitals were: Blood pressure 143/83, heart rate of 72, respiratory of 18, temperature of 98.1 Fahrenheit, and pulse ox of 97 on room air. In the ED the patient had the CT of the head and it was reported as similar mild degenerative atrophy and moderate patchy changes of chronic small vessel ischemic disease. No acute intracranial abnormality as seen. I did review the CT of the head and I did not see any acute ischemia or hemorrhage. I also don't appreciate any encephalomalacia. EKG was reported as normal sinus rhythm. Ventricular rate of 71. Upon reviewing medical record the patient was seen the by Dr. Pérez (neuro- hospitalist) over a [facility] on his 08/20/2019 regarding tremors. There is no he mentions that the tremors are likely due to and metabolic disturbance. And and also he states that the patient has history of seizures order and currently on Keppra and upon reviewing also record it's mentioned that he is on Keppra 500 mg twice a day. Patient had 2 routine EEGs in our system first one was in 2013 and the other one was in October 2018 and both were reported as normal. Per [id number] she stated about two years ago he was getting a biopsy of lung and he was shaking and they thought it was a seizure. Per the patient he stated that when he was a having a biopsy of his long and that was at outside hospital was at [facility] he had a seizure he doesn't recall the episode he said he was out for 3 days and that's when he was started on seizure medication. Per the [id number] she thinks he followed up with a neurologist as outpatient and had EEG but there is no seizure as seen on the EEG. Per the patient he said that he hasn't followed up with a neurologist. Patient is a ex-tobacco user he stopped smoking 22 years ago. EEG He did see a neurologist as outpatient and had EEG and no seizures were seen. He is not on ASA but is on simvastatin 40mg daily, Hydrocodone 7.5mg 1 tab bid, metoprolol, Levetiracetam 500mg 1 tab bid, Xarelto, amlodipine 10mg daily. Review of Systems Review of system: The 12 point system was reviewed and apparent positive and negative per HPI. Past Medical History Past Medical History: Coronary Artery Disease (CAD), Cancer, COPD, CVA/TIA, Diabetes Mellitus, Deep Vein Thrombosis (DVT), Hyperlipidemia, Hypertension, Myocardial Infarction ([place]), Osteoarthritis (OA), Pneumonia, Prostate Disorder, Seizure Disorder Additional Past Medical History / Comment(s): 07/2018 L lung cancer with left upper lobectomy/IV chemo but pt states he quit taking chemo early then diagnosed with R lower lobe cancer in August 2019 and had wedge resection and immunotherapy every 3 weeks, bronchitis, TIA and seizure after bronchoscopy in 2017, DVT L leg, IDDM type II, chronic cervical/back pain, diabetes mellitus, occasional bilateral ankle edema, BPH, chronic stage III kidney disease Last Myocardial Infarction Date:: 05/24/12 History of Any Multi-Drug Resistant Organisms: None Reported Past Surgical History: Back Surgery, Cholecystectomy, Heart Catheterization, Hernia Repair, Tonsillectomy Additional Past Surgical History / Comment(s): 2018 Bronchoscopy with bx, 2017 L upper lobectomy at [facility], August 2019 R lower lung wedge resection, low back surgery, 2011 cardiac cath-treat medically, umbilical hernia repair, bilateral cataract removals Past Anesthesia/Blood Transfusion Reactions: Previous Problems w/ Anesthesia Additional Past Anesthesia/Blood Transfusion Reaction / Comment(s): Seizure and mini stroke following lung biopsy Past Psychological History: Anxiety, Depression Additional Psychological History / Comment(s): Pt resides with his son. He has a nebulizer. Pt drives. Past Alcohol Use History: None Reported Additional Past Alcohol Use History / Comment(s): Pt started smoking in 1960 and quit in 1995. He was a 2ppd smoker. Past Drug Use History: None Reported Additional Drug Use History / Comment(s): He denies any alcohol use or any illicit drug use - Past Family History Mother Family Medical History: No Reported History Additional Family Medical History / Comment(s): Mother was healthy Father Family Medical History: Diabetes Mellitus Additional Family Medical History / Comment(s): Father of diabetes at the age of 83 yrs. Medications and Allergies Home Medications Medication Instructions Recorded Confirmed Type Simvastatin [Zocor] 40 mg PO DAILY 07/30/19 07/06/20 History amLODIPine [Norvasc] 10 mg PO HS 07/30/19 07/06/20 History levETIRAcetam [Keppra] 500 mg PO BID 07/30/19 07/06/20 History Metoprolol Tartrate 25 mg PO BID #60 tab 09/10/19 07/06/20 Rx Rivaroxaban [Xarelto] 15 mg PO DAILY #30 tab 09/10/19 07/06/20 Rx INSULIN ASPART (NovoLOG) [NovoLOG 10 unit SQ AC-TID #1 vial 10/25/19 07/06/20 Rx (formulary)] Ipratropium-Albuterol Nebulize 3 ml INHALATION RT-TID #100 neb 12/30/19 07/06/20 Rx [Duoneb 0.5 mg-3 mg/3 ml Soln] HYDROcodone/APAP 7.5-325MG [[place] 1 tab PO TID PRN 07/06/20 07/06/20 History 7.5-325] Insulin Detemir [Levemir Flextouch] 80 units SQ HS 07/06/20 07/06/20 History Omeprazole 20 mg PO DAILY 07/06/20 07/06/20 History lisinopriL 40 mg PO HS 07/06/20 07/06/20 History Allergies Allergy/AdvReac Type Severity Reaction Status Date / Time No Known Allergies Allergy Verified 07/06/20 15:02 Physical Examination - Vital Signs Vital Signs: Vital Signs Temp Pulse Resp BP Pulse Ox 07/06/20 14:45 98.1 F 70 18 138/76 99 07/06/20 14:30 98.1 F 68 18 140/72 100 07/06/20 14:22 98.1 F 70 16 131/76 100 07/06/20 14:15 98.1 F 70 16 131/76 100 07/06/20 14:00 98.1 F 72 18 134/68 97 07/06/20 13:53 143/83 Intake and Output 07/06/20 07/06/20 07/06/20 06:59 14:59 22:59 Other: Weight 85.275 kg GENERAL: The patient is lying in bed and is not in acute distress. CHEST: The heart rate is regular rate rhythm. No murmurs to auscultation. No carotid bruit bilaterally. LUNG: Clear to auscultation bilaterally no wheezing noted throughout. Not labored breathing. ABDOMEN/GI: Bowel sounds present in all 4 quadrants. No tenderness to palpation throughout. NEUROLOGICAL: Higher mental function: The patient is awake, alert, oriented to self, place and time. Patient is following commands. No aphasia and no neglect. Cranial nerves: The pupils are round, equal and reactive to light and accommodation. Visual wright are full to confrontation throughout. Extraocular movement is intact no nystagmus is noted. Facial sensation is normal to touch throughout. The facial strength there is minimal left nasolabial flatening but upon having the patient look at his face on face of phone he said it appears normal, otherwise no facial weakness. Hearing is normal bilaterally to hand rub. Tongue is midline and moved [id number] without any difficulty. No dysarthria is noted. Shoulder shrug is normal bilaterally. Motor: The strength is 5 over 5 throughout. Normal tone and bulk. Cerebellum: Normal finger to nose heel to chin bilaterally. Sensation: Sensation is normal to touch throughout. Reflexes (right/left): 2+ throuhgout except at ankles are 1+ bilaterally.. Plantars are downgoing bilaterally. Results INR of 1.3. PT of 12.8. The PTT of 31.8. AST of 18 ALTs of 13. - Laboratory Findings CBC and BMP: 07/07/20 06:49 07/07/20 06:49 Abnormal Lab Findings: Abnormal Labs 07/06/20 07/06/20 07/06/20 13:57 14:13 14:13 RBC 3.89 L Hgb 11.6 L Hct 34.9 L Lymphocytes # 0.9 L PT 12.8 H INR 1.3 H APTT 31.8 H BUN Creatinine Glucose POC Glucose (mg/dL) 100 H Total Protein 07/06/20 14:13 RBC Hgb Hct Lymphocytes # PT INR APTT BUN 28 H Creatinine 1.64 H Glucose 122 H POC Glucose (mg/dL) Total Protein 5.8 L Assessment and Plan Assessment: 74-year-old gentleman with history of seizure disorder, lung cancer who underwent a left upper lobectomy on 07/23/2018 and r followed by 4 sessions of chemotherapy, diabetes, DVT, hypertension, myocardial infarction ex-tobacco use. 74-year-old right-handed gentleman with history of seizure disorder, lung cancer who underwent a left upper lobectomy s/p upper lobectomy 07/23/2018 and right lung cancer who is on immunotherapy, ludiabetes, DVT, hypertension, myocardial infarction ex-tobacco use who presented to the emergency department on 07/06/2020 because of left facial weakness and slurred speech and numbness of bilateral hand that started at 12:30pm. Transient ischemic attack (left facial droop, slurring speech and numbness) Seizure disorder Chronic kidney insufficiency History of left lung cancer s/p left upper lobectomy and right lung cancer on immunotherapy Hypertension Brittle Diabetes mellitus X tobacco use History of DVT Plan: Ordered MRI of the brain with and without the to rule out a stroke as well as to rule out metastases especially with a history of lung cancer at. I ordered a 2-D echo: Pending. Bilateral Carotid duplex: There is antegrade flow in the vertebral arteries. Images and measurements suggest 30% stenosis of both internal carotid arteries. No adverse changes compared to old exam. The patient is already on Xarelto and ASA and Plavix was added during this admission, which there is an increased risk of a bleeding. Therefore I discon tinued the Plavix. Continue simvastatin 40 mg daily. Lipid panel: Triglyceride of 122, cholesterol of 96, LDL 43, HDL of 29. Ordered TSH and HbA1c. Goal of hemoglobin A1c is less than 6.5. Cardiac monitoring PT OT are consulted. Regarding the patient history of seizures patient is on Keppra 500 mg twice a day. Regarding the patient the management of diabetes as well as hypertension we'll defer the management to the primary team. Upon discharge the patient needs to follow up with a neurologist regarding management of seizure as well as the episode of his TIA. Thank you for the consult. David Mccain M.D. Neuro-hospitalist Time with Patient: Greater than 30
--- NOTE | 2020-07-07 11:01 | ECHOF ---
Referral Reason:stroke MEASUREMENTS -------- HEIGHT: 182.9 cm WEIGHT: 85.3 kg BP: 125/60 RVIDd: 2.7 cm (< 3.3) IVSd: 1.2 cm (0.6 - 1.1) LVIDd: 4.5 cm (3.9 - 5.3) LVPWd: 1.0 cm (0.6 - 1.1) IVSs: 1.7 cm LVIDs: 2.5 cm LVPWs: 1.8 cm LAESV Index (A-L): 28.42 ml/m Ao Diam: 3.8 cm (2.0 - 3.7) AV Cusp: 2.2 cm (1.5 - 2.6) LA Diam: 3.2 cm (2.7 - 3.8) MV EXCURSION: 25.683 mm (> 18.000) MV EF SLOPE: 169 mm/s (70 - 150) EPSS: 0.4 cm MV E Vincent: 0.97 m/s MV DecT: 294 ms MV A Vincent: 0.97 m/s MV E/A Ratio: 1.00 RAP: 5.00 mmHg RVSP: 32.23 mmHg TAPSE: 25.44 mm FINDINGS -------- This was a technically adequate study. The left ventricular size is normal. There is mild concentric left ventricular hypertrophy. Overa ll left ventricular systolic function is normal with, an EF between 55 - 60 %. Normal LAP Grade 1 D iastolic Dysfunction. The right ventricle is normal in size. The right ventricular systolic function is normal. The left atrial size is normal. Normal LA size by volume 22+/-6 ml/m2. The right atrial size is normal. Aneurysmal Interatrial septum. The aortic valve is trileaflet and appears structurally normal. The mitral valve is normal. The mitral valve leaflets are mildly thickened. Mild mitral regurgita tion is present. The tricuspid valve appears structurally normal. Mild tricuspid regurgitation present. Right vent ricular systolic pressure is normal at < 35 mmHg. There is no pulmonic regurgitation present. Aortic root not well visualized but appears normal in size. Normal inferior vena cava with normal inspiratory collapse consistent with estimated right atrial pre ssure of 5 mmHg. There is a trivial pericardial effusion present. CONCLUSIONS -------- 1. The left ventricular size is normal. 2. There is mild concentric left ventricular hypertrophy. 3. Overall left ventricular systolic function is normal with, an EF between 55 - 60 %. 4. Normal LAP Grade 1 Diastolic Dysfunction. 5. The right ventricular systolic function is normal. 6. Aneurysmal Interatrial septum. 7. The mitral valve leaflets are mildly thickened. 8. Mild mitral regurgitation is present. 9. Mild tricuspid regurgitation present. 10. There is a trivial pericardial effusion present. BODY MAKE UP ARTIST: Melina Curry RDCS
[2020-07-07 11:07] LABS: T4, Free (Free Thyroxine) 0.76 ng/dL (0.78-2.19)
[2020-07-07 11:21] VITALS: BMI 26.2
[2020-07-07 12:11] LABS: Glucose,Whole Blood 101 mg/dL (75-99)
--- NOTE | 2020-07-07 14:53 | MR ---
EXAMINATION TYPE: MR brain wo/w con DATE OF EXAM: 07/07/2020 COMPARISON: CT brain 07/06/2020, prior brain MRI 08/21/2019 HISTORY: Stroke, left-sided weakness TECHNIQUE: Multiplanar, multisequence images of the brain and brainstem is performed without and with IV contras t, utilizing 8.5 mL intravenous Gadavist . FINDINGS: Diffusion weighted images demonstrate no evidence of a recent infarct or other diffusion ab normality. There is no extra-axial fluid collection or significant interval change in white matter s ignal abnormality, some scattered punctate foci of encephalomalacia, confluent and scattered hyperint ensities within the subcortical, pericallosal, periventricular white matter again noted. The ventric ular system and cisternal spaces are normal in size and appearance. The brain volume is age appropri ate, cortical atrophy again seen. Midline structures demonstrate similar morphology, extensive pannus at the atlantodens articulation c auses a kinking of the proximal cervical cord similar to prior exam. The craniocervical junction lito ears within normal limits. Post contrast images demonstrate no abnormal enhancement. The dural venou s sinuses appear patent. The visualized sinuses are clear and the globes are intact. IMPRESSION: Essentially stable exam. Age-related changes of atrophy and chronic small vessel ischemia . No subacute infarct is evident.
[2020-07-07 17:15] LABS: Glucose,Whole Blood 180 mg/dL (75-99)
[2020-07-07 18:45] LABS: Hemoglobin A1C 8.4 % (4.0-6.0)
[2020-07-07 20:26] LABS: Glucose,Whole Blood 195 mg/dL (75-99)
[2020-07-07] MEDS: INSULIN DETEMIR (LEVEMIR) 100 UNIT/ML SYR SQ SCH (21:33)
[2020-07-07] MEDS: amLODIPine 10 MG TAB PO SCH (21:33)
[2020-07-08 04:31] VITALS: RESP 18
[2020-07-08] MEDS ORDERED: LEVOTHYROXINE 25 MCG TAB PO SCH (06:30)
[2020-07-08] MEDS: PANTOPRAZOLE 40 MG TABLET PO SCH (06:34)
[2020-07-08] MEDS: HYDROcodone/APAP 7.5-325MG 1 EACH TAB PO PRN (06:38)
[2020-07-08 07:21] LABS: Glucose,Whole Blood 90 mg/dL (75-99)
[2020-07-08] MEDS: INSULIN ASPART (NovoLOG) 100 UNIT/ML VIAL SQ SCH ×2 (08:58→11:59)
[2020-07-08] MEDS: IPRATROPIUM-ALBUTEROL 3 ML NEB INHALATION SCH ×2 (09:21→12:30)
[2020-07-08] MEDS: ATORVASTATIN 20 MG TAB PO SCH (09:59)
[2020-07-08] MEDS: ASPIRIN 81 MG PO SCH (09:59)
[2020-07-08] MEDS: RIVAROXABAN 15 MG TAB PO SCH (09:59)
[2020-07-08] MEDS: levETIRAcetam 500 MG TAB PO SCH (10:00)
[2020-07-08] MEDS: METOPROLOL TARTRATE 25 MG TAB PO SCH (10:00)
[2020-07-08 11:56] LABS: Glucose,Whole Blood 92 mg/dL (75-99)
--- NOTE | 2020-07-08 12:30 | P.PN ---
Subjective Progress Note Date: 07/08/20 The patient was seen at bedside and the he states that he's doing well. He denies any further slurring the speech, facial weakness, any weakness, numbness or visual disturbance. He feels he is back at baseline. Objective - Vital Signs Vital signs: Vital Signs Temp 97.8 F 07/08/20 08:00 Pulse 68 07/08/20 09:30 Resp 18 07/08/20 08:00 BP 124/62 07/08/20 08:00 Pulse Ox 95 07/08/20 08:00 Intake & Output 07/07/20 07/08/20 07/08/20 18:59 06:59 18:59 Intake Total 225 Balance 225 Weight 85.275 kg 98 kg Intake: Oral 225 Other: Voiding Method Toilet # Voids 1 1 - Exam GENERAL: The patient is lying in bed and is not in acute distress. CHEST: The heart rate is regular rate rhythm. No murmurs to auscultation. LUNG: Clear to auscultation bilaterally no wheezing noted throughout. Not labored breathing. ABDOMEN/GI: Bowel sounds present in all 4 quadrants. No tenderness to palpation throughout. NEUROLOGICAL: Higher mental function: The patient is awake, alert, oriented to self, place and time. Patient is following commands. No aphasia and no neglect. Cranial nerves: The pupils are round, equal and reactive to light and a ccommodation. Visual wright are full to confrontation throughout. Extraocular movement is intact no nystagmus is noted. Facial sensation is normal to touch throughout. The facial strength there is minimal left nasolabial flatening but upon having the patient look at his face on face of phone he said it appears normal, otherwise no facial weakness. Hearing is normal bilaterally to hand rub. Tongue is midline and moved [id number] without any difficulty. No dysarthria is noted. Shoulder shrug is normal bilaterally. Motor: The strength is 5 over 5 throughout. Normal tone and bulk. Cerebellum: Normal finger to nose heel to chin bilaterally. Sensation: Sensation is normal to touch throughout. Reflexes (right/left): 2+ throuhgout except at ankles are 1+ bilaterally.. Plantars are downgoing bilaterally. - Labs CBC & Chem 7: 07/07/20 06:49 07/07/20 06:49 Labs: Abnormal Lab Results - Last 24 Hours (Table) 07/07/20 07/07/20 07/07/20 Range/Units 06:49 17:03 20:24 POC Glucose (mg/dL) 180 H 195 H (75-99) mg/dL Hemoglobin A1c 8.4 H (4.0-6.0) % Assessment and Plan Assessment: 74-year-old right-handed gentleman with history of seizure disorder, lung cancer who underwent a left upper lobectomy s/p upper lobectomy 07/23/2018 and right lung cancer who is on immunotherapy, diabetes, DVT, hypertension, myocardial infarction ex-tobacco use who presented to the emergency department on 07/06/2020 because of left facial weakness and slurred speech and numbness of bilateral hand that started at 12:30pm. His symptoms has resolved. Transient ischemic attack (left facial droop, slurring speech and numbness). Seizure disorder Atrial spetum Aneurysm Hypothyroidism Chronic kidney insufficiency History of left lung cancer s/p left upper lobectomy and right lung cancer on immunotherapy Hypertension Brittle Diabetes mellitus X tobacco use History of DVT Plan: Ordered MRI of the brain with and without: Was reported as essentially stable exam. Age-related changes of atrophy and chronic small vessel ischemia. No acute the subacute infarct evident. Bilateral Carotid duplex: There is antegrade flow in the vertebral arteries. Images and measurements suggest 30% stenosis of both internal carotid arteries. No adverse changes compared to old exam. The patient is already on Xarelto and ASA and Plavix was added during this admission, which there is an increased risk of a bleeding. Therefore I discontinued the Plavix. Continue simvastatin 40 mg daily. 2-D echo: Was reported as left ventricular size is normal. Mild concentric left ventricular hypertrophy. Ejection fraction of 55-60%. Aneurysmal intra-atrial septum. The atrial septum aneurysm is a rare cardioembolic the risk factor. Consider getting cardiology team, can get as an outpatient and if the patient does not desire once is a year but this needs to be addressed. Lipid panel: Triglyceride of 122, cholesterol of 96, LDL 43, HDL of 29. TSH: 6.320 and T4: 0.76. HbA1c: 8.4. Goal of hemoglobin A1c is less than 6.5. Cardiac monitoring PT OT are on board. Regarding the patient history of seizures patient is on Keppra 500 mg twice a day. From the TSH and T4 is seems the patient has hypothyroidism we'll defer the management to the primary team. Regarding the patient the management of diabetes as well as hypertension we'll defer the management to the primary team. Upon discharge the patient needs to follow up with a neurologist regarding management of seizure as well as the episode of his TIA. David Mccain M.D. Neuro-hospitalist Time with Patient: Greater than 30
[2020-07-08 13:02] VITALS: BP 128/65; PULSE 73; TEMP 98.2
--- NOTE | 2020-07-08 14:29 | P.PN ---
Subjective Progress Note Date: 07/07/20 Principal diagnosis: Left-sided weakness with slurred speech and facial droop. Resolved now. Patient is a 74-year-old male with a known history of hypertension, hyperlipidemia, diabetes type 2 insulin-dependent, history of CVA/TIA, COPD on home oxygen and chronic hypoxic respiratory failure, history of DVT, osteoarthritis, seizure disorder and left lung cancer with left upper lobectomy/IV chemotherapy currently on immunotherapy and chronic cervical/back pain with occasional intra-articular steroid injections, BPH and CKD and other multiple medical problems presents to ER with complaints of left-sided weakness started around 11:30 AM today patient states that he was also having slurred speech and headache. EMS noted to have left facial droop as well. Otherwise denied any palpitations. No blurred vision. No shortness of breath. By the time he arrived to the ER his weakness as well as slurred speech is almost resolved. Denied any nausea vomiting or abdominal pain. No recent illnesses or recent travel. CT head showed similar mild generalized atrophy and moderate patchy changes of the chronic small vessel ischemic disease. No acute intracranial abnormality seen. Chest x-ray showed no acute cardiopulmonary process EKG showed normal sinus rhythm. Laboratory data showed WBC 7.6, hemoglobin 11.6 and platelets 175 INR 1.3 BUN 28 and creatinine 1.64 92 2020 Patient is currently lying in the bed comfortably. No complaints of slurred speech weakness. Patient was seen by neurology and MRI was ordered. Rule out metastatic lesions due to history of lung cancer. Otherwise patient is tolerating oral diet. No fever no chills. No nausea vomiting or abdominal pain or diarrhea. Neurology and pulmonary is following. Current medications reviewed. Objective - Vital Signs Vital signs: Vital Signs Temp 98.1 F 07/07/20 16:00 Pulse 68 07/07/20 18:46 Resp 16 07/07/20 18:46 BP 153/77 07/07/20 16:00 Pulse Ox 98 07/07/20 16:00 Intake & Output 07/07/20 07/07/20 07/08/20 06:59 18:59 06:59 Weight 85.275 kg Other: # Voids 1 1 - Exam PHYSICAL EXAMINATION: Patient is lying in the bed comfortably, no acute distress, awake alert and oriented.. HEENT: Normocephalic. Neck is supple. Pupils reactive. Nostrils clear. Oral cavity is moist. Ears reveal no drainage. Neck reveals no JVD, carotid bruits, or thyromegaly. CHEST EXAMINATION: Trachea is central. Symmetrical expansion. Lung wright clear to auscultation and percussion. CARDIAC: Normal S1, S2 with no gallops. No murmurs ABDOMEN: Soft. Bowel sounds normal. No organomegaly. No abdominal bruits. Extremities: reveal no edema. No clubbing or cyanosis Neurologically awake, alert, oriented x3 with well-coordinated movements. No focal deficits noted Skin: No rash or skin lesions. Psychiatric: Coperative. Nonsuicidal Musculoskeletal: No joint swelling or deformity. Normal range of motion. - Labs CBC & Chem 7: 07/07/20 06:49 07/07/20 06:49 Labs: Abnormal Lab Results - Last 24 Hours (Table) 07/07/20 07/07/20 07/07/20 Range/Units 06:49 06:49 06:49 RBC 3.56 L (4.30-5.90) m/uL Hgb 10.5 L (13.0-17.5) gm/dL Hct 32.3 L (39.0-53.0) % Chloride 111 H (98-107) mmol/L BUN 29 H (9-20) mg/dL Creatinine 1.82 H (0.66-1.25) mg/dL POC Glucose (mg/dL) (75-99) mg/dL Hemoglobin A1c 8.4 H (4.0-6.0) % HDL Cholesterol 29 L (40-60) mg/dL TSH (0.465-4.680) mIU/L Free T4 (0.78-2.19) ng/dL 07/07/20 07/07/20 07/07/20 Range/Units 06:49 12:09 17:03 RBC (4.30-5.90) m/uL Hgb (13.0-17.5) gm/dL Hct (39.0-53.0) % Chloride (98-107) mmol/L BUN (9-20) mg/dL Creatinine (0.66-1.25) mg/dL POC Glucose (mg/dL) 101 H 180 H (75-99) mg/dL Hemoglobin A1c (4.0-6.0) % HDL Cholesterol (40-60) mg/dL TSH 6.320 H (0.465-4.680) mIU/L Free T4 0.76 L (0.78-2.19) ng/dL 07/07/20 Range/Units 20:24 RBC (4.30-5.90) m/uL Hgb (13.0-17.5) gm/dL Hct (39.0-53.0) % Chloride (98-107) mmol/L BUN (9-20) mg/dL Creatinine (0.66-1.25) mg/dL POC Glucose (mg/dL) 195 H (75-99) mg/dL Hemoglobin A1c (4.0-6.0) % HDL Cholesterol (40-60) mg/dL TSH (0.465-4.680) mIU/L Free T4 (0.78-2.19) ng/dL Assessment and Plan Assessment: Left-sided weakness with slurred speech and facial droop. Resolved now. Likely due to TIA. 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 COPD on home oxygen Hypertension Diabetes type 2 insulin-dependent Hyperlipidemia History of DVT of the left lower extremity currently on Xarelto History of left upper lobe resection due to non-small cell lung cancer History of wedge resection of the pulmonary nodule in the right lung. Degenerative joint disease of the spine Anemia of chronic disease Chronic kidney disease stage III BPH Depression Coronary artery disease status post cath.. Medical management was recommended. DVT prophylaxis patient is already on Xarelto. Plan: Patient will be continued on telemetry monitoring. Neurological symptoms have resolved currently. Stroke work-up was ordered including MRI and carotid duplex. MRI was done today. [facility] Neurology and pulmonary was consulted. Continue with home medications and insulin dosing. Further recommendations based on clinical course. Prognosis guarded. Time with Patient: Greater than 30
--- NOTE | 2020-07-08 15:10 | P.DS ---
Providers Date of admission: 07/06/20 14:48 Expected date of discharge: 07/08/20 Attending physician: Hilary Vera Consults: 07/06/20 14:49 Consult Physician Routine Consulting Provider: David Mccain Consult Reason/Comments: CVA Do you want consulting provider notified?: Yes Primary care physician: Renzo Boyer [facility] Course: Final diagnosis Left-sided weakness with slurred speech and facial droop. Resolved now. Likely due to TIA. 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 COPD on home oxygen Hypertension Diabetes type 2 insulin-dependent Hyperlipidemia History of DVT of the left lower extremity currently on Xarelto History of left upper lobe resection due to non-small cell lung cancer History of wedge resection of the pulmonary nodule in the right lung. Degenerative joint disease of the spine Anemia of chronic disease Chronic kidney disease stage III BPH Depression Coronary artery disease status post cath.. Medical management was recommended. DVT prophylaxis Discharge disposition Patient is being discharged in a stable condition with guarded prognosis to home. Patient will follow-up with Dr. Boyer in the outpatient setting upon discharge. Patient also instructed to follow-up with neurology in the outpatient setting an appointment has been made. Patient will continue on statin along with Xarelto and Plavix has been discontinued. Total time taken is greater than 35 minutes. History of present illness This is a 74-year-old male who was recently admitted with left-sided weakness a nd also was found to have slurring of speech and headache and left facial droop and was being closely monitored. Per patient symptoms have resolved upon ED arrival. Patient was seen and evaluated by neurology and underwent a CT of the head showing similar mild generalized atrophy and moderate patchy changes of the chronic small vessel ischemic disease with no acute intracranial abnormality seen. Patient also underwent MRI of the brain showing an essentially stable exam with age-related change of atrophy and chronic small vessel ischemia with no subacute infarct evident. Patient also went an echo showing some mild concentric left ventricular hypertrophy with left ventricular systolic function is normal with an EF between 55 and 60%, normal LEP grade 1 diastolic dysfunction with some mild tricuspid and mitral regurgitation present. Patient instructed to follow-up with cardiology in the outpatient setting. She also underwent a carotid Doppler study showing 30% stenosis in both internal carotid arteries with no adverse change compared to old exam. Patient will continue on a statin along with Xarelto and Plavix has been discontinued. Patient is denying any left-sided deficits noted and would really like to go home today. Currently no reports of chest pain, shortness of breath, or palpitations. Patient is afebrile. No reports of nausea or vomiting and patient is tolerating diet. Patient will be discharged home today. On exam vital signs are stable. Temp is 98.2F, pulse is 73, respirations are 18, blood pressure is 128/65, oxygen saturation is 95% on room air. Cardio S1, S2 are muffled. Respiratory system shows diminished breath sounds at the bases with no wheezing or rhonchi noted. Abdomen is soft and nontender. Nervous system shows no focal deficits. Please refer to medication reconciliation sheet for a list of medications. Patient Condition at Discharge: Stable Plan - Discharge Summary Discharge Rx Participant: No New Discharge Prescriptions: New Aspirin 81 mg PO DAILY 30 Days #30 chew Levothyroxine Sodium [Synthroid] 25 mcg PO DAILY@0630 30 Days #30 tab Continue Simvastatin [Zocor] 40 mg PO DAILY amLODIPine [Norvasc] 10 mg PO HS levETIRAcetam [Keppra] 500 mg PO BID Rivaroxaban [Xarelto] 15 mg PO DAILY #30 tab Metoprolol Tartrate 25 mg PO BID #60 tab INSULIN ASPART (NovoLOG) [NovoLOG (formulary)] 10 unit SQ AC-TID #1 vial Ipratropium-Albuterol Nebulize [Duoneb 0.5 mg-3 mg/3 ml Soln] 3 ml INHALATION RT-TID #100 neb HYDROcodone/APAP 7.5-325MG [Kennan 7.5-325] 1 tab PO TID PRN PRN Reason: Pain Omeprazole 20 mg PO DAILY Insulin Detemir [Levemir Flextouch] 80 units SQ HS Discontinued lisinopriL 40 mg PO HS Discharge Medication List Simvastatin [Zocor] 40 mg PO DAILY 07/30/19 [History] amLODIPine [Norvasc] 10 mg PO HS 07/30/19 [History] levETIRAcetam [Keppra] 500 mg PO BID 07/30/19 [History] Metoprolol Tartrate 25 mg PO BID #60 tab 09/10/19 [Rx] Rivaroxaban [Xarelto] 15 mg PO DAILY #30 tab 09/10/19 [Rx] INSULIN ASPART (NovoLOG) [NovoLOG (formulary)] 10 unit SQ AC-TID #1 vial 10/25/19 [Rx] Ipratropium-Albuterol Nebulize [Duoneb 0.5 mg-3 mg/3 ml Soln] 3 ml INHALATION RT-TID #100 neb 12/30/19 [Rx] HYDROcodone/APAP 7.5-325MG [Kennan 7.5-325] 1 tab PO TID PRN 07/06/20 [History] Insulin Detemir [Levemir Flextouch] 80 units SQ HS 07/06/20 [History] Omeprazole 20 mg PO DAILY 07/06/20 [History] Aspirin 81 mg PO DAILY 30 Days #30 chew 07/08/20 [Rx] Levothyroxine Sodium [Synthroid] 25 mcg PO DAILY@0630 30 Days #30 tab 07/08/20 [Rx] Follow up Appointment(s)/Referral(s): Renzo Boyer MD [Primary Care Provider] - 07/23/20 1:15 pm Priyank Tamez MD [Medical Doctor] - 08/05/20 8:15 am Ambulatory/Diagnostic Orders: Basic Metabolic Panel [LAB.AMB] Time Frame: 2 Days, Location: None Selected Patient Instructions/Handouts: Ischemic Stroke (DC) Activity/Diet/Wound Care/Special Instructions: Activity Limited until follow-up Continue current diet Follow-up with primary care provider upon discharge Follow-up with neurology in the outpatient setting Repeat labs to monitor kidney functions in the next 2-3 days Discharge Disposition: HOME SELF-CARE
== END 2020-07-08 15:27 | disposition home or self-care (01) | DRG 69 ==
LOC: EC 13:46 → 3SCARD 14:48
PROVIDERS: ADMIT Internal Medicine; ATTEND Internal Medicine
DX: G45.9 Transient cerebral ischemic attack, unspecified (principal); C34.91 Malignant neoplasm of unspecified part of right bronchus or lung; I25.3 Aneurysm of heart; J96.11 Chronic respiratory failure with hypoxia; E78.5 Hyperlipidemia, unspecified; I25.10 Atherosclerotic heart disease of native coronary artery without angina pectoris; J44.9 Chronic obstructive pulmonary disease, unspecified; M19.90 Unspecified osteoarthritis, unspecified site; N40.0 Benign prostatic hyperplasia without lower urinary tract symptoms; N18.3 Chronic kidney disease, stage 3 (moderate); E11.22 Type 2 diabetes mellitus with diabetic chronic kidney disease; I12.9 Hypertensive chronic kidney disease with stage 1 through stage 4 chronic kidney disease, or unspecified chronic kidney disease; F32.9 Major depressive disorder, single episode, unspecified; F41.9 Anxiety disorder, unspecified; D63.1 Anemia in chronic kidney disease; E03.9 Hypothyroidism, unspecified; G40.909 Epilepsy, unspecified, not intractable, without status epilepticus; R40.2363 Coma scale, best motor response, obeys commands, at hospital admission; R40.2143 Coma scale, eyes open, spontaneous, at hospital admission; R40.2253 Coma scale, best verbal response, oriented, at hospital admission; M47.9 Spondylosis, unspecified; R29.810 Facial weakness; Z79.899 Other long term (current) drug therapy; Z79.51 Long term (current) use of inhaled steroids; Z79.4 Long term (current) use of insulin; Z79.01 Long term (current) use of anticoagulants; Z86.73 Personal history of transient ischemic attack (TIA), and cerebral infarction without residual deficits; Z86.718 Personal history of other venous thrombosis and embolism; I25.2 Old myocardial infarction; Z87.01 Personal history of pneumonia (recurrent); Z87.891 Personal history of nicotine dependence; Z92.21 Personal history of antineoplastic chemotherapy; Z98.890 Other specified postprocedural states; Z90.49 Acquired absence of other specified parts of digestive tract; Z90.89 Acquired absence of other organs; Z98.42 Cataract extraction status, left eye; Z98.41 Cataract extraction status, right eye; Z83.3 Family history of diabetes mellitus; Z90.2 Acquired absence of lung [part of]; Z99.81 Dependence on supplemental oxygen
CPT/HCPCS: 36415; 70450; 70553; 71046; 80048; 80053; 80061; 83036; 84439; 84443; 84484; 85025; 85610; 85730; 93005; 93306; 93880; 94640; 96361; 96374; 99291

== ENCOUNTER 2020-07-27 23:24 | Inpatient (IN) | payer MEDICARE, OTHER ==
[2020-07-27 23:46] LABS: Glucose,Whole Blood 320 mg/dL (75-99)
[2020-07-27 23:51] LABS: Basophils % (A) 0 %; Eosinophils # (A) 1.1 k/uL (0-0.7); Eosinophils % (A) 17 %; HCT 30.8 % (39.0-53.0); Lymphocytes # (A) 1.1 k/uL (1.0-4.8); Lymphocytes % (A) 18 %; MCH 29.4 pg (25.0-35.0); MCHC 32.6 g/dL (31.0-37.0); MCV 90.2 fL (80.0-100.0); Mean Platelet Volume 7.6; Monocytes # (A) 0.3 k/uL (0-1.0); Monocytes % (A) 5 %; Neutrophils # (A) 3.7 k/uL (1.3-7.7); Neutrophils % (A) 58 %; Platelet Count 161 k/uL (150-450); RBC 3.41 m/uL (4.30-5.90); RDW 13.5 % (11.5-15.5); WBC 6.3 k/uL (3.8-10.6)
--- NOTE | 2020-07-27 23:51 | CT ---
EXAMINATION TYPE: CT brain wo con for TPA DATE OF EXAM: 07/27/2020 COMPARISON: 07/06/2020 HISTORY: Code Stroke CT DLP: 1249 mGycm Automated exposure control for dose reduction was used. There is cerebral cortical atrophy. There is no mass effect nor midline shift. There is no sign of in tracranial hemorrhage. Calvarium is intact. IMPRESSION: Cerebral atrophy. No acute intracranial abnormality. No change compared to old exam.
--- NOTE | 2020-07-27 23:56 | CT ---
EXAMINATION TYPE: CT angio head neck DATE OF EXAM: 07/27/2020 COMPARISON: 12/29/2019 HISTORY: Code Stroke CT DLP: 579.60 mGycm Automated exposure control for dose reduction was used. CONTRAST: Performed with IV Contrast, patient injected with 65 mL of Isovue 370. There are 3-D post processed images. There is normal branching pattern of the great vessels on the aortic arch. There is bilateral arteria l flow in the subclavian arteries. There is arterial flow in the common internal and external carotid arteries bilaterally. There is significant plaque formation at the right carotid artery bifurcation and 70% stenosis proximal right internal carotid artery. There is mild plaque on the left side and 25 % stenosis proximal left internal carotid artery. There is arterial flow in both vertebral arteries which are fairly symmetric. There is arterial flow in the vertebrobasilar artery system. There is arterial flow in the anterior middle and posterior cer ebral arteries. I see no evidence of intracranial aneurysm or neovascularity. I see no evidence of in tracranial hemodynamic stenosis. There is no mass effect. There is normal contrast opacification of t he venous sinuses. IMPRESSION: There is plaque formation and approximate 70% stenosis proximal right internal carotid artery and 25% stenosis proximal left internal carotid artery. Plaque slightly increased on the right side compared to old exam.
[2020-07-27] MEDS ORDERED: INSULIN REGULAR 100 UNIT/ML VIAL SQ STA (23:57)
[2020-07-27 23:59] LABS: INR 1.1 (<1.2); Partial Thromboplastin Time 26.2 sec (22.0-30.0); Prothrombin Time 10.9 sec (9.0-12.0)
--- NOTE | 2020-07-28 00:04 | ED ---
Neuro HPI - General Chief Complaint: Neuro Symptoms/Deficit Stated Complaint: Possible Stroke Time Seen by Provider: 07/27/20 23:37 Source: EMS Mode of arrival: EMS Limitations: no limitations - History of Present Illness Is the patient presenting with stroke symptoms?: Yes Last Known Well Date: 07/27/20 Last Known Well Time: 20:30 -: hour(s) Initial Comments: This patient is 74-year-old man brought by ambulance to be evaluated for concerns of possible stroke. The patient reportedly having some right-sided weakness and also difficulty with speech. When I interview the patient, he states that he just does not feel well, he is having a hard time stating specifically what is bothering him. He does answer yes when asked if he feels weak but on is not able to indicate any focality. Patient denies pains and dyspnea. Location: speech, right arm History of same: Yes Place: home Severity: moderate Quality: weak Improves With: none Worsens With: none On Anticoagulants: Yes (Xarelto) Context: sudden onset Associated Symptoms: denies other symptoms Treatments Prior to Arrival: none - Related Data Home Medications: Home Medications Medication Instructions Recorded Confirmed Simvastatin [Zocor] 40 mg PO DAILY 07/30/19 07/28/20 amLODIPine [Norvasc] 10 mg PO HS 07/30/19 07/28/20 levETIRAcetam [Keppra] 500 mg PO BID 07/30/19 07/28/20 HYDROcodone/APAP 7.5-325MG [[place] 1 tab PO TID PRN 07/06/20 07/28/20 7.5-325] Insulin Detemir [Levemir Flextouch] 80 units SQ HS 07/06/20 07/28/20 Omeprazole 20 mg PO DAILY 07/06/20 07/28/20 Previous Rx's Medication Instructions Recorded Metoprolol Tartrate 25 mg PO BID #60 tab 09/10/19 Rivaroxaban [Xarelto] 15 mg PO DAILY #30 tab 09/10/19 INSULIN ASPART (NovoLOG) [NovoLOG 10 unit SQ AC-TID #1 vial 10/25/19 (formulary)] Ipratropium-Albuterol Nebulize 3 ml INHALATION RT-TID #100 neb 12/30/19 [Duoneb 0.5 mg-3 mg/3 ml Soln] Aspirin 81 mg PO DAILY 30 Days #30 chew 07/08/20 Levothyroxine Sodium [Synthroid] 25 mcg PO DAILY@0630 30 Days #30 07/08/20 tab Allergies/Adverse Reactions: Allergies Allergy/AdvReac Type Severity Reaction Status Date / Time No Known Allergies Allergy Verified 07/28/20 10:29 Review of Systems ROS Statement: Those systems with pertinent positive or pertinent negative responses have been documented in the HPI. ROS Other: All systems not noted in ROS Statement are negative. Limitations: ROS unobtainable due to patients medical condition Constitutional: Reports: weakness. Denies: fever Eyes: Denies: vision change Respiratory: Denies: cough, dyspnea Cardiovascular: Denies: chest pain, palpitations Gastrointestinal: Denies: abdominal pain, vomiting, diarrhea Neurological: Reports: weakness, confusion. Denies: headache General Exam Limitations: no limitations General appearance: alert, in no apparent distress Head exam: Present: atraumatic, normocephalic Eye exam: Present: normal appearance, PERRL, EOMI. Absent: scleral icterus, conjunctival injection, nystagmus ENT exam: Present: mucous membranes dry Neck exam: Present: normal inspection, full ROM. Absent: tenderness, meningismus Respiratory exam: Present: normal lung sounds bilaterally. Absent: respiratory distress, wheezes, rales, rhonchi, stridor, chest wall tenderness Cardiovascular Exam: Present: regular rate, normal rhythm, systolic murmur. Absent: diastolic murmur, rubs, gallop GI/Abdominal exam: Present: soft. Absent: distended, tenderness, guarding, rebound, rigid, mass Extremities exam: Present: normal inspection, normal capillary refill. Absent: pedal edema, calf tenderness Back exam: Present: normal inspection. Absent: vertebral tenderness Neurological exam: Present: alert, oriented X3, CN II-XII intact, motor sensory deficit Expanded Neurological exam: Present: expressive aphasia, tremor, protecting the airway Patient oriented to: Present: person, place, time Speech: Present: expressive aphasia Cranial nerves: EOM's Intact: Normal, Gag Reflex: Normal, Tongue Deviation: Normal, Facial Sensation: Normal Motor strength exam: RUE: 4, LUE: 5, RLE: 5, LLE: 5 Eye Response: (4) open spontaneously Motor Response: (6) obeys commands Verbal Response: (5) oriented Skin exam: Present: warm, dry, intact, normal color. Absent: rash Stroke MDM - Lab Data Result diagrams: 07/29/20 07:22 07/29/20 07:22 Lab Results 07/27/20 07/27/20 07/27/20 Range/Units 23:35 23:44 23:44 WBC 6.3 (3.8-10.6) k/uL RBC 3.41 L (4.30-5.90) m/uL Hgb 10.0 L D (13.0-17.5) gm/dL Hct 30.8 L (39.0-53.0) % MCV 90.2 (80.0-100.0) fL MCH 29.4 (25.0-35.0) pg MCHC 32.6 (31.0-37.0) g/dL RDW 13.5 (11.5-15.5) % Plt Count 161 (150-450) k/uL Neutrophils % 58 % Lymphocytes % 18 % Monocytes % 5 % Eosinophils % 17 % Basophils % 0 % Neutrophils # 3.7 (1.3-7.7) k/uL Lymphocytes # 1.1 (1.0-4.8) k/uL Monocytes # 0.3 (0-1.0) k/uL Eosinophils # 1.1 H (0-0.7) k/uL Basophils # 0.0 (0-0.2) k/uL PT 10.9 (9.0-12.0) sec INR 1.1 (<1.2) APTT 26.2 (22.0-30.0) sec Sodium (137-145) mmol/L Potassium (3.5-5.1) mmol/L Chloride (98-107) mmol/L Carbon Dioxide (22-30) mmol/L Anion Gap mmol/L BUN (9-20) mg/dL Creatinine (0.66-1.25) mg/dL Est GFR (CKD-EPI)AfAm (>60 ml/min/1.73 sqM) Est GFR (CKD-EPI)NonAf (>60 ml/min/1.73 sqM) Glucose (74-99) mg/dL POC Glucose (mg/dL) 320 H (75-99) mg/dL POC Glu Cash Reconciliation Specialist ID Flood, Lola Calcium (8.4-10.2) mg/dL Total Bilirubin (0.2-1.3) mg/dL AST (17-59) U/L ALT (4-49) U/L Alkaline Phosphatase (38-126) U/L Troponin I (0.000-0.034) ng/mL Total Protein (6.3-8.2) g/dL Albumin (3.5-5.0) g/dL Urine Color Urine Appearance (Clear) Urine pH (5.0-8.0) Ur Specific [place] (1.001-1.035) Urine Protein (Negative) Urine Glucose (UA) (Negative) Urine Ketones (Negative) Urine Blood (Negative) Urine Nitrite (Negative) Urine Bilirubin (Negative) Urine Urobilinogen (<2.0) mg/dL Ur Leukocyte Esterase (Negative) Urine RBC (0-5) /hpf Urine WBC (0-5) /hpf Urine Mucus (None) /hpf 07/27/20 07/27/20 07/28/20 Range/Units 23:44 23:44 00:49 WBC (3.8-10.6) k/uL RBC (4.30-5.90) m/uL Hgb (13.0-17.5) gm/dL Hct (39.0-53.0) % MCV (80.0-100.0) fL MCH (25.0-35.0) pg MCHC (31.0-37.0) g/dL RDW (11.5-15.5) % Plt Count (150-450) k/uL Neutrophils % % Lymphocytes % % Monocytes % % Eosinophils % % Basophils % % Neutrophils # (1.3-7.7) k/uL Lymphocytes # (1.0-4.8) k/uL Monocytes # (0-1.0) k/uL Eosinophils # (0-0.7) k/uL Basophils # (0-0.2) k/uL PT (9.0-12.0) sec INR (<1.2) APTT (22.0-30.0) sec Sodium 137 (137-145) mmol/L Potassium 4.8 (3.5-5.1) mmol/L Chloride 108 H (98-107) mmol/L Carbon Dioxide 22 (22-30) mmol/L Anion Gap 7 mmol/L BUN 33 H (9-20) mg/dL Creatinine 1.75 H (0.66-1.25) mg/dL Est GFR (CKD-EPI)AfAm 44 (>60 ml/min/1.73 sqM) Est GFR (CKD-EPI)NonAf 38 (>60 ml/min/1.73 sqM) Glucose 306 H (74-99) mg/dL POC Glucose (mg/dL) (75-99) mg/dL POC Glu Cash Reconciliation Specialist ID Calcium 8.6 (8.4-10.2) mg/dL Total Bilirubin 0.2 (0.2-1.3) mg/dL AST 14 L (17-59) U/L ALT 10 (4-49) U/L Alkaline Phosphatase 94 (38-126) U/L Troponin I <0.012 (0.000-0.034) ng/mL Total Protein 5.2 L (6.3-8.2) g/dL Albumin 3.0 L (3.5-5.0) g/dL Urine Color Yellow Urine Appearance Clear (Clear) Urine pH 5.5 (5.0-8.0) Ur Specific [place] 1.039 H (1.001-1.035) Urine Protein 2+ H (Negative) Urine Glucose (UA) 4+ H (Negative) Urine Ketones Negative (Negative) Urine Blood Small H (Negative) Urine Nitrite Negative (Negative) Urine Bilirubin Negative (Negative) Urine Urobilinogen <2.0 (<2.0) mg/dL Ur Leukocyte Esterase Negative (Negative) Urine RBC 3 (0-5) /hpf Urine WBC 2 (0-5) /hpf Urine Mucus Rare H (None) /hpf - Thrombolytic Inclusion/Exclusion Thrombolytic Contraindications: Patient on Anticoagulants - EKG Data -: EKG Interpreted by Me EKG shows normal: sinus rhythm, axis (Normal), intervals (Normal), QRS complexes (Normal) Rate: normal (Rate 87 bpm) Interpretation: nonspecific ST-T wave changes Past Medical History Past Medical History: Coronary Artery Disease (CAD), Cancer, COPD, CVA/TIA, Diabetes Mellitus, Deep Vein Thrombosis (DVT), Hyperlipidemia, Hypertension, Myocardial Infarction ([place]), Osteoarthritis (OA), Pneumonia, Prostate Disorder, Seizure Disorder Additional Past Medical History / Comment(s): 07/2018 L lung cancer with left upper lobectomy/IV chemo but pt states he quit taking chemo early then diagnosed with R lower lobe cancer in August 2019 and had wedge resection and immunotherapy every 3 weeks, bronchitis, TIA and seizure after bronchoscopy in 2017, DVT L leg, IDDM type II, chronic cervical/back pain, diabetes mellitus, occasional bilateral ankle edema, BPH, chronic stage III kidney disease Last Myocardial Infarction Date:: 05/24/12 History of Any Multi-Drug Resistant Organisms: None Reported Past Surgical History: Back Surgery, Cholecystectomy, Heart Catheterization, Hernia Repair, Tonsillectomy Additional Past Surgical History / Comment(s): 2018 Bronchoscopy with bx, 2017 L upper lobectomy at [facility], August 2019 R lower lung wedge resection, low back surgery, 2011 cardiac cath-treat medically, umbilical hernia repair, bilateral cataract removals Past Anesthesia/Blood Transfusion Reactions: Previous Problems w/ Anesthesia Additional Past Anesthesia/Blood Transfusion Reaction / Comment(s): Seizure and mini stroke following lung biopsy Past Psychological History: Anxiety, Depression Smoking Status: Never smoker Past Alcohol Use History: None Reported Past Drug Use History: None Reported - Past Family History Mother Family Medical History: No Reported History Additional Family Medical History / Comment(s): Mother was healthy Father Family Medical History: Diabetes Mellitus Additional Family Medical History / Comment(s): Father of diabetes at the age of 83 yrs. Course Vital Signs 07/27/20 07/27/20 07/28/20 23:37 23:56 00:00 Temperature 98.7 F Pulse Rate 87 87 92 Pulse Rate [ Pulse Oximetery ] Respiratory 18 18 18 Rate Blood Pressure 168/100 176/93 183/95 O2 Sat by Pulse 98 98 97 Oximetry 07/28/20 07/28/20 07/28/20 00:15 00:30 00:45 Temperature 98.6 F Pulse Rate 87 87 85 Pulse Rate [ Pulse Oximetery ] Respiratory 18 18 18 Rate Blood Pressure 169/98 141/88 184/90 O2 Sat by Pulse 97 97 97 Oximetry 07/28/20 07/28/20 01:00 01:19 Temperature Pulse Rate 86 Pulse Rate [ 100 Pulse Oximetery ] Respiratory 18 20 Rate Blood Pressure 168/80 O2 Sat by Pulse 97 Oximetry - Reevaluation(s) Reevaluation #1: 07/28/20 00:02 Patient 74-year-old man with expressive aphasia and with right-sided weakness. He is triaged directly to computed tomography scan. I did discuss the case with Dr. Coyle, who reviewed the CT scans. We discussed the CAT scan results and the patient is taking the Xarelto and therefore not candidate for TPA Disposition Clinical Impression: AMS (altered mental status), Pneumonia Disposition: ADMITTED IP TO THIS HOSP Condition: Poor
--- NOTE | 2020-07-28 00:05 | XR ---
EXAMINATION TYPE: XR chest 1V portable DATE OF EXAM: 07/27/2020 COMPARISON: 07/06/2020 HISTORY: Altered mental status TECHNIQUE: Single view FINDINGS: Heart is normal. Thoracic aorta is atheromatous. Lungs are clear of consolidation. There ar e no hilar masses. There is no pleural effusion. IMPRESSION: No active cardiopulmonary disease. No change.
[2020-07-28 00:19] LABS: Calcium 8.6 mg/dL (8.4-10.2); Potassium 4.8 mmol/L (3.5-5.1); Total Bilirubin 0.2 mg/dL (0.2-1.3); Total Protein 5.2 g/dL (6.3-8.2)
[2020-07-28] MEDS ORDERED: HYDROcodone/APAP 7.5-325MG 1 EACH TAB PO PRN (00:53)
[2020-07-28] MEDS: SODIUM CHLORIDE 0.9% 1,000 ML IV SCH ×3 (01:15→21:16)
[2020-07-28 03:10] LABS: Appearance,Urine Clear (Clear); Bilirubin,Urine Negative (Negative); Blood,Urine Small (Negative); Color,Urine Yellow; Glucose,Urine (UA) 4+ (Negative); Ketones,Urine Negative (Negative); Leukocyte Esterase,Urine Negative (Negative); Mucus,Urine Rare /hpf; Nitrite,Urine Negative (Negative); PH, Urine 5.5 (5.0-8.0); Protein,Urine 2+ (Negative); RBC,Urine 3 /hpf (0-5); Specific Gravity,Urine 1.039 (1.001-1.035); Urobilinogen,Urine <2.0 mg/dL (<2.0); WBC,Urine 2 /hpf (0-5)
[2020-07-28] MEDS ORDERED: ONDANSETRON 4 MG/2 ML VIAL IVP PRN (03:28)
[2020-07-28] MEDS: ACETAMINOPHEN TAB 325 MG TAB PO PRN ×2 (03:48→08:12)
[2020-07-28 06:30] LABS: Glucose,Whole Blood 294 mg/dL (75-99)
[2020-07-28] MEDS: PANTOPRAZOLE 40 MG TABLET PO SCH (06:39)
[2020-07-28] MEDS: INSULIN ASPART (NovoLOG) 100 UNIT/ML VIAL SQ SCH ×4 (06:39→21:15)
[2020-07-28] MEDS: LEVOTHYROXINE 25 MCG TAB PO SCH (06:39)
[2020-07-28] MEDS: ASPIRIN 81 MG PO SCH (08:12)
[2020-07-28] MEDS: METOPROLOL TARTRATE 25 MG TAB PO SCH ×2 (08:12→21:15)
[2020-07-28] MEDS: ATORVASTATIN 20 MG TAB PO SCH (08:12)
[2020-07-28] MEDS: RIVAROXABAN 15 MG TAB PO SCH (08:12)
[2020-07-28] MEDS: levETIRAcetam 500 MG TAB PO SCH ×2 (08:12→21:15)
[2020-07-28] MEDS ORDERED: FAMOTIDINE 20 MG/2 ML VIAL IV SCH (09:00)
[2020-07-28] MEDS: IPRATROPIUM-ALBUTEROL 3 ML NEB INHALATION SCH ×3 (09:10→20:44)
--- NOTE | 2020-07-28 11:30 | XR ---
EXAMINATION TYPE: XR chest 1V portable DATE OF EXAM: 07/28/2020 COMPARISON: 07/28/2020 HISTORY: Shortness of breath TECHNIQUE: Frontal and lateral views of the chest are obtained. FINDINGS: Scattered senescent parenchymal changes noted. Hyperinflation compatible with COPD. No evidence for infiltrate. No evidence for atelectasis. Heart size is stable. Mediastinal structures are stable and grossly unremarkable. No evidence for hilar prominence. Degenerative changes dorsal spine. IMPRESSION: 1. No evidence for acute pulmonary disease.
--- NOTE | 2020-07-28 11:52 | P.HPIM ---
History of Present Illness This is a pleasant 74 years old male with multiple medical problems as below. Patient was admitted by ED team because of right-sided weakness and slurred speech, however patient was suddenly this morning he has been weak on the right side chronically for a while due to stroke and he did not have slurred speech also for a while. And that he came to the hospital because of dyspnea for 2 days duration. Associated with cough and the total yellow phlegm but no chest pain. Patient denies motor weakness, no slurred speech, no blurred vision, no new sensory loss. He had normal bowel movements and no urinary complaints. He denies smoking, alcohol or illicit drugs. On admission blood pressure was 186/80, currently 126/66, he has fever of 101.1. He is saturating 94% on 2 L oxygen via nasal cannula. Labs showing no leukocytosis, WBC is 6.3K. hemoglobin 10. Platelets are normal. INR is 1.1. Creatinine 1.7, with baseline Bryn 1.4-2.0. Glucose is 306. Troponin are negative 3 Chest x-ray: No acute process. CT of the brain showing 70% stenosis of the right internal carotid artery and 25% stenosis of the left internal carotid artery CT of the brain showing cerebral atrophy with no acute intracranial abnormality as per radiologist. EKG showing normal sinus rhythm at [address]-T changes. In the emergency room patient is continued on aspirin 81 mg which is home medication. He was started on normal saline at 100 mL per hour Neurologist has been consulted from emergency room. Patient is already on Xarelto as home medication Review of Systems CONSTITUTIONAL: No fever, no malaise, no fatigue. HEENT: No recent visual problems or hearing problems. Denied any sore throat. CARDIOVASCULAR: No orthopnea, PND, no palpitations, no syncope. PULMONARY: No shortness of breath, no cough, no hemoptysis. GASTROINTESTINAL: No diarrhea, no nausea, no vomiting, no abdominal pain. Normoactive bowel sounds. NEUROLOGICAL: No headaches, no weakness, no numbness. HEMATOLOGICAL: Denies any bleeding or petechiae. GENITOURINARY: Denies any burning micturition, frequency, or urgency. MUSCULOSKELETAL/RHEUMATOLOGICAL: Denies any joint pain, swelling, or any muscle pain. ENDOCRINE: Denies any polyuria or polydipsia. Past Medical History Past Medical History: Coronary Artery Disease (CAD), Cancer, COPD, CVA/TIA, Diabetes Mellitus, Deep Vein Thrombosis (DVT), Hyperlipidemia, Hypertension, Myocardial Infarction ([place]), Osteoarthritis (OA), Pneumonia, Prostate Disorder, Seizure Disorder Additional Past Medical History / Comment(s): 07/2018 L lung cancer with left upper lobectomy/IV chemo but pt states he quit taking chemo early then diagnosed with R lower lobe cancer in August 2019 and had wedge resection and immunotherapy every 3 weeks, bronchitis, TIA and seizure after bronchoscopy in 2017, DVT L leg, IDDM type II, chronic cervical/back pain, diabetes mellitus, occasional bilateral ankle edema, BPH, chronic stage III kidney disease Last Myocardial Infarction Date:: 05/24/12 History of Any Multi-Drug Resistant Organisms: None Reported Past Surgical History: Back Surgery, Cholecystectomy, Heart Catheterization, Hernia Repair, Tonsillectomy Additional Past Surgical History / Comment(s): 2017 Bronchoscopy with bx, 2017 L upper lobectomy at [facility], August 2019 R lower lung wedge resection, low back surgery, 2011 cardiac cath-treat medically, umbilical hernia repair, bilateral cataract removals Past Anesthesia/Blood Transfusion Reactions: Previous Problems w/ Anesthesia Additional Past Anesthesia/Blood Transfusion Reaction / Comment(s): Seizure and mini stroke following lung biopsy Past Psychological History: Anxiety, Depression Additional Psychological History / Comment(s): Pt resides with his son. He has a nebulizer. Pt drives. Smoking Status: Never smoker Past Alcohol Use History: None Reported Additional Past Alcohol Use History / Comment(s): Pt started smoking in 1961 and quit in 1995. He was a 2ppd smoker. Past Drug Use History: None Reported Additional Drug Use History / Comment(s): He denies any alcohol use or any illicit drug use - Past Family History Mother Family Medical History: No Reported History Additional Family Medical History / Comment(s): Mother was healthy Father Family Medical History: Diabetes Mellitus Additional Family Medical History / Comment(s): Father of diabetes at the age of 83 yrs. Medications and Allergies Home Medications Medication Instructions Recorded Confirmed Type Simvastatin [Zocor] 40 mg PO DAILY 07/30/19 07/28/20 History amLODIPine [Norvasc] 10 mg PO HS 07/30/19 07/28/20 History levETIRAcetam [Keppra] 500 mg PO BID 07/30/19 07/28/20 History Metoprolol Tartrate 25 mg PO BID #60 tab 09/10/19 07/28/20 Rx Rivaroxaban [Xarelto] 15 mg PO DAILY #30 tab 09/10/19 07/28/20 Rx INSULIN ASPART (NovoLOG) [[place]ovo[place] 10 unit SQ AC-TID #1 vial 10/25/19 07/28/20 Rx (formulary)] Ipratropium-Albuterol Nebulize 3 ml INHALATION RT-TID #100 neb 12/30/19 07/28/20 Rx [Duoneb 0.5 mg-3 mg/3 ml Soln] HYDROcodone/APAP 7.5-325MG [[place] 1 tab PO TID PRN 07/06/20 07/28/20 History 7.5-325] Insulin Detemir [Levemir Flextouch] 80 units SQ HS 07/06/20 07/28/20 History Omeprazole 20 mg PO DAILY 07/06/20 07/28/20 History Aspirin 81 mg PO DAILY 30 Days #30 chew 07/08/20 07/28/20 Rx Levothyroxine Sodium [Synthroid] 25 mcg PO DAILY@0630 30 Days #30 07/08/20 07/28/20 Rx tab Allergies Allergy/AdvReac Type Severity Reaction Status Date / Time No Known Allergies Allergy Verified 07/28/20 10:29 Physical Exam Vitals: Vital Signs Temp Pulse Pulse Resp BP BP Pulse Ox 07/28/20 09:27 76 07/28/20 09:10 76 07/28/20 08:00 100.4 F H 76 18 126/66 94 L 07/28/20 04:00 101.1 F H 100 20 186/80 97 07/28/20 01:52 99.0 F 99 20 188/87 95 07/28/20 01:19 100 20 07/28/20 01:00 86 18 168/80 97 07/28/20 00:45 85 18 184/90 97 07/28/20 00:30 87 18 141/88 97 07/28/20 00:15 98.6 F 87 18 169/98 97 07/28/20 00:00 92 18 183/95 97 07/27/20 23:56 87 18 176/93 98 07/27/20 23:37 98.7 F 87 18 168/100 98 Intake and Output 07/27/20 07/28/20 07/28/20 22:59 06:59 14:59 Output Total 700 Balance -700 Output: Urine 700 Other: Voiding Method Urinal Weight 89 kg GENERAL: The patient is alert and oriented x3, not in any acute distress. Well developed, well nourished. HEENT: Pupils are round and equally reacting to light. EOMI. No scleral icterus. No conjunctival pallor. Normocephalic, atraumatic. No pharyngeal erythema. No thyromegaly. CARDIOVASCULAR: S1 and S2 present. No murmurs, rubs, or gallops. PULMONARY: Chest is clear to auscultation, no wheezing or crackles. ABDOMEN: Soft, nontender, nondistended, normoactive bowel sounds. No palpable organomegaly. MUSCULOSKELETAL: No joint swelling or deformity. EXTREMITIES: No cyanosis, clubbing, or pedal edema. NEUROLOGICAL: Gross neurological examination did not reveal any focal deficits. SKIN: No rashes. No petechiae Results CBC & Chem 7: 07/27/20 23:44 07/27/20 23:44 Labs: Abnormal Lab Results - Last 24 Hours (Table) 07/27/20 07/27/20 07/27/20 Range/Units 23:35 23:44 23:44 RBC 3.41 L (4.30-5.90) m/uL Hgb 10.0 L D (13.0-17.5) gm/dL Hct 30.8 L (39.0-53.0) % Eosinophils # 1.1 H (0-0.7) k/uL Chloride 108 H (98-107) mmol/L BUN 33 H (9-20) mg/dL Creatinine 1.75 H (0.66-1.25) mg/dL Glucose 306 H (74-99) mg/dL POC Glucose (mg/dL) 320 H (75-99) mg/dL AST 14 L (17-59) U/L Total Protein 5.2 L (6.3-8.2) g/dL Albumin 3.0 L (3.5-5.0) g/dL Ur Specific [place] (1.001-1.035) Urine Protein (Negative) Urine Glucose (UA) (Negative) Urine Blood (Negative) Urine Mucus (None) /hpf 07/28/20 07/28/20 Range/Units 00:49 06:26 RBC (4.30-5.90) m/uL Hgb (13.0-17.5) gm/dL Hct (39.0-53.0) % Eosinophils # (0-0.7) k/uL Chloride (98-107) mmol/L BUN (9-20) mg/dL Creatinine (0.66-1.25) mg/dL Glucose (74-99) mg/dL POC Glucose (mg/dL) 294 H (75-99) mg/dL AST (17-59) U/L Total Protein (6.3-8.2) g/dL Albumin (3.5-5.0) g/dL Ur Specific [place] 1.039 H (1.001-1.035) Urine Protein 2+ H (Negative) Urine Glucose (UA) 4+ H (Negative) Urine Blood Small H (Negative) Urine Mucus Rare H (None) /hpf Thrombosis Risk Factor Assmnt - Choose All That Apply Each Risk Factor Represents 2 Points: Age 61-74 years Each Risk Factor Represents 5 Points: Stroke (< 1 month) Thrombosis Risk Factor Assessment Total Risk Factor Score: 7 Thrombosis Risk Factor Assessment Level: High Risk Assessment and Plan Assessment: Fever and dyspnea 70% right internal carotid artery stenosis There was suspicion for Acute stroke with right hemiparesis and slurred speech, however patient denies these symptoms. Neurology consulted Diabetes mellitus Hypertension Hyperlipidemia History of coronary artery disease COPD, no acute exacerbation History of CVA/TIA Osteoarthritis Seizure disorder Benign prostatic hypertrophy History of left lung cancer status post lumpectomy and chemotherapy in 2018. Chronic cervical and low back pain Chronic kidney disease stage III Plan: This is a pleasant 74 years old male who presents with acute stroke.Follow-up recommendation by neurologist. We will check chest x-ray and sent for blood culture and asked for infectious disease consult. Also we'll check for covid and influenza. Also we'll consult vascular team for right internal carotid artery stenosis. Labs and medication were reviewed.. Continue same treatment. Continue with symptomatic treatment. Resume home medication. Monitor lytes and vitals. DVT and GI prophylaxis. Further recommendations depends on the clinical course of the patient DVT prophylaxis Xarelto GI Prophylaxis: Pepcid PT/OT: Pending Prognosis is guarded
--- NOTE | 2020-07-28 13:19 | P.GSCN ---
History of Present Illness Consult date: 07/28/20 Reason for Consult: Carotid stenosis History of present illness: This is a pleasant 74 years old male with multiple medical problems including coronary artery disease, lung cancer diagnosed in 2018 with a left upper lobectomy, COPD, TIAs, diabetes mellitus, seizure disorder, history of DVT, hyperlipidemia, hypertension, and chronic kidney disease.. Patient was admitted by ED team because of right-sided weakness and slurred speech. When i nterviewing the patient he states he did not have any difficulty with speech, he said he had weakness all over his body. However the patient's son who lives with him is at the bedside and states that his speech was slurred and garbled, he had weakness that was generalized, and states his father was unaware who he was. EMS was called to bring the patient to the hospital. Patient denies any current motor weakness, no slurred speech, no blurred vision, no new sensory loss. He denies any chest pain or shortness of breath at this time. The patient was also here for similar symptoms approximately 2 weeks ago, was brought to the emergency department. He also has a history of TIA with residual right-sided weakness. Patient is currently taking Xarelto, ASA, and Simvastatin On admission blood pressure was 186/80, currently 126/66, he has fever of 101.1. He is saturating 94% on 2 L oxygen via nasal cannula. Labs showing no leukocytosis, WBC is 6.3K. hemoglobin 10. Platelets are normal. INR is 1.1. Creatinine 1.7, with baseline Bryn 1.4-2.0. Glucose is 306. Troponin are negative 3 Chest x-ray: No acute process. CTA of chest showing 70% stenosis of the right internal carotid artery and 25% stenosis of the left internal carotid artery CT of the brain showing cerebral atrophy with no acute intracranial abnormality as per radiologist. Carotid Doppler ultrasound was completed on 07/06/2020 which showed antegrade flow in the vertebral arteries. Images the measurement suggests 30% stenosis in both internal carotid arteries. There is no adverse change compared to old exam. Review of Systems A 14 point review of systems was completed and all pertinent positives and negatives as stated in the HPI. Past Medical History Past Medical History: Coronary Artery Disease (CAD), Cancer, COPD, CVA/TIA, Diabetes Mellitus, Deep Vein Thrombosis (DVT), Hyperlipidemia, Hypertension, Myocardial Infarction ([place]), Osteoarthritis (OA), Pneumonia, Prostate Disorder, Seizure Disorder Additional Past Medical History / Comment(s): 07/2018 L lung cancer with left upper lobectomy/IV chemo but pt states he quit taking chemo early then diagnosed with R lower lobe cancer in August 2019 and had wedge resection and immunotherapy every 3 weeks, bronchitis, TIA and seizure after bronchoscopy in 2017, DVT L leg, IDDM type II, chronic cervical/back pain, diabetes mellitus, occasional bilateral ankle edema, BPH, chronic stage III kidney disease Last Myocardial Infarction Date:: 05/24/12 History of Any Multi-Drug Resistant Organisms: None Reported Past Surgical History: Back Surgery, Cholecystectomy, Heart Catheterization, Hernia Repair, Tonsillectomy Additional Past Surgical History / Comment(s): 2017 Bronchoscopy with bx, 2017 L upper lobectomy at [facility], August 2019 R lower lung wedge resection, low back surgery, 2011 cardiac cath-treat medically, umbilical hernia repair, bilateral cataract removals Past Anesthesia/Blood Transfusion Reactions: Previous Problems w/ Anesthesia Additional Past Anesthesia/Blood Transfusion Reaction / Comm: Seizure and mini stroke following lung biopsy Past Psychological History: Anxiety, Depression Additional Psychological History / Comment(s): Pt resides with his son. He has a nebulizer. Pt drives. Smoking Status: Never smoker Past Alcohol Use History: None Reported Additional Past Alcohol Use History / Comment(s): Pt started smoking in 1961 and quit in 1995. He was a 2ppd smoker. Past Drug Use History: None Reported Additional Drug Use History / Comment(s): He denies any alcohol use or any illicit drug use - Past Family History Mother Family Medical History: No Reported History Additional Family Medical History / Comment(s): Mother was healthy Father Family Medical History: Diabetes Mellitus Additional Family Medical History / Comment(s): Father of diabetes at the age of 83 yrs. Medications and Allergies Home Medications Medication Instructions Recorded Confirmed Type Simvastatin [Zocor] 40 mg PO DAILY 07/30/19 07/28/20 History amLODIPine [Norvasc] 10 mg PO HS 07/30/19 07/28/20 History levETIRAcetam [Keppra] 500 mg PO BID 07/30/19 07/28/20 History Metoprolol Tartrate 25 mg PO BID #60 tab 09/10/19 07/28/20 Rx Rivaroxaban [Xarelto] 15 mg PO DAILY #30 tab 09/10/19 07/28/20 Rx INSULIN ASPART (NovoLOG) [NovoLOG 10 unit SQ AC-TID #1 vial 10/25/19 07/28/20 Rx (formulary)] Ipratropium-Albuterol Nebulize 3 ml INHALATION RT-TID #100 neb 12/30/19 07/28/20 Rx [Duoneb 0.5 mg-3 mg/3 ml Soln] HYDROcodone/APAP 7.5-325MG [[place] 1 tab PO TID PRN 07/06/20 07/28/20 History 7.5-325] Insulin Detemir [Levemir Flextouch] 80 units SQ HS 07/06/20 07/28/20 History Omeprazole 20 mg PO DAILY 07/06/20 07/28/20 History Aspirin 81 mg PO DAILY 30 Days #30 chew 07/08/20 07/28/20 Rx Levothyroxine Sodium [Synthroid] 25 mcg PO DAILY@0630 30 Days #30 07/08/20 07/28/20 Rx tab Allergies Allergy/AdvReac Type Severity Reaction Status Date / Time No Known Allergies Allergy Verified 07/28/20 10:29 Surgical - Exam Vital Signs Temp Pulse Resp BP Pulse Ox 98.7 F 87 18 168/100 98 07/27/20 23:37 07/27/20 23:37 07/27/20 23:37 07/27/20 23:37 07/27/20 23:37 General appearance: The patient is alert, oriented, in no acute distress. HET: Head is normocephalic and atraumatic. Pupils are equal and reactive. Neck: Supple without lymphadenopathy. Trachea midline. No bruit appreciated bilaterally. Heart: S1 S2. Regular rate and rhythm. Lungs: Lateral wheezes Abdomen: Soft, nontender, nondistended with bowel sounds. Extremities: Normal skin color and turgor. No cyanosis, rash, ulceration, clubbing, or edema. Radial and pedal pulses are 2/4 bilaterally. Neurological: No focal deficits noted. Strength and sensation are grossly intact. Some evidence of minimal right-sided weakness compared to left. Speech is fluent. He has facial symmetry, and tongue protrudes midline. He is alert and oriented 3. Results Chest x-ray: No acute process. CTA of chest showing 70% stenosis of the right internal carotid artery and 25% stenosis of the left internal carotid artery CT of the brain showing cerebral atrophy with no acute intracranial abnormality as per radiologist. Carotid Doppler ultrasound was completed on 07/06/2020 which showed antegrade flow in the vertebral arteries. Images the measurement suggests 30% stenosis in both internal carotid arteries. There is no adverse change compared to old exam. - Labs 07/27/20 23:44 07/27/20 23:44 Abnormal Lab Results - Last 24 Hours (Table) 07/27/20 07/27/20 07/27/20 Range/Units 23:35 23:44 23:44 RBC 3.41 L (4.30-5.90) m/uL Hgb 10.0 L D (13.0-17.5) gm/dL Hct 30.8 L (39.0-53.0) % Eosinophils # 1.1 H (0-0.7) k/uL Chloride 108 H (98-107) mmol/L BUN 33 H (9-20) mg/dL Creatinine 1.75 H (0.66-1.25) mg/dL Glucose 306 H (74-99) mg/dL POC Glucose (mg/dL) 320 H (75-99) mg/dL AST 14 L (17-59) U/L Total Protein 5.2 L (6.3-8.2) g/dL Albumin 3.0 L (3.5-5.0) g/dL Ur Specific [place] (1.001-1.035) Urine Protein (Negative) Urine Glucose (UA) (Negative) Urine Blood (Negative) Urine Mucus (None) /hpf 07/28/20 07/28/20 Range/Units 00:49 06:26 RBC (4.30-5.90) m/uL Hgb (13.0-17.5) gm/dL Hct (39.0-53.0) % Eosinophils # (0-0.7) k/uL Chloride (98-107) mmol/L BUN (9-20) mg/dL Creatinine (0.66-1.25) mg/dL Glucose (74-99) mg/dL POC Glucose (mg/dL) 294 H (75-99) mg/dL AST (17-59) U/L Total Protein (6.3-8.2) g/dL Albumin (3.5-5.0) g/dL Ur Specific [place] 1.039 H (1.001-1.035) Urine Protein 2+ H (Negative) Urine Glucose (UA) 4+ H (Negative) Urine Blood Small H (Negative) Urine Mucus Rare H (None) /hpf Diabetes panel 07/27/20 Range/Units 23:44 Sodium 137 (137-145) mmol/L Potassium 4.8 (3.5-5.1) mmol/L Chloride 108 H (98-107) mmol/L Carbon Dioxide 22 (22-30) mmol/L BUN 33 H (9-20) mg/dL Creatinine 1.75 H (0.66-1.25) mg/dL Glucose 306 H (74-99) mg/dL Calcium 8.6 (8.4-10.2) mg/dL AST 14 L (17-59) U/L ALT 10 (4-49) U/L Alkaline Phosphatase 94 (38-126) U/L Total Protein 5.2 L (6.3-8.2) g/dL Albumin 3.0 L (3.5-5.0) g/dL Calcium panel 07/27/20 Range/Units 23:44 Calcium 8.6 (8.4-10.2) mg/dL Albumin 3.0 L (3.5-5.0) g/dL Pituitary panel 07/27/20 Range/Units 23:44 Sodium 137 (137-145) mmol/L Potassium 4.8 (3.5-5.1) mmol/L Chloride 108 H (98-107) mmol/L Carbon Dioxide 22 (22-30) mmol/L BUN 33 H (9-20) mg/dL Creatinine 1.75 H (0.66-1.25) mg/dL Glucose 306 H (74-99) mg/dL Calcium 8.6 (8.4-10.2) mg/dL Adrenal panel 07/27/20 Range/Units 23:44 Sodium 137 (137-145) mmol/L Potassium 4.8 (3.5-5.1) mmol/L Chloride 108 H (98-107) mmol/L Carbon Dioxide 22 (22-30) mmol/L BUN 33 H (9-20) mg/dL Creatinine 1.75 H (0.66-1.25) mg/dL Glucose 306 H (74-99) mg/dL Calcium 8.6 (8.4-10.2) mg/dL Total Bilirubin 0.2 (0.2-1.3) mg/dL AST 14 L (17-59) U/L ALT 10 (4-49) U/L Alkaline Phosphatase 94 (38-126) U/L Total Protein 5.2 L (6.3-8.2) g/dL Albumin 3.0 L (3.5-5.0) g/dL Assessment and Plan Assessment: 1. asymptomatic right ICA, 70% right internal carotid stenosis on CTA chest, carotid ultrasound completed 07/06/20 showing 30% stenosis bilateral 2. Slurred speech 3. right sided weakness 4. Diabetes mellitus 5. Hypertension 6. TIA/CVA with right-sided residual weakness 7. Hyperlipidemia 8. Coronary artery disease 9. COPD Plan: Continue with Xarelto, aspirin, and atorvastatin. Await neurology evaluation and recommendations. CT angiogram and carotid ultrasound reviewed with discordant findings, Right ICA more likely 60-65 percent stenosis. Previous admission MRI reviewed showing age related atrophy and chronic small vessel ischemia. No subacute infarct was evident. At this time there is no indication for any vascular surgical intervention. Recommend to patient outpatient follow-up with Dr. Castro. Further recommendations to follow. Thank you for this kind referral and the opportunity to participate in the care of your patient. This consultation was discussed with Dr. Castro. The impression and plan of care have been directed as dictated.
--- NOTE | 2020-07-28 16:28 | P.CNNES ---
History of Present Illness Consult date: 07/28/20 Requesting physician: Howie Rodas Reason for Consult: Ischemic stroke versus TIA History of Present Illness: Patient is a 74-year-old male came to the hospital yesterday at 11:30 PM to the hospital with concerns of possible stroke. Patient states that he came to the hospital because he was "not feeling too good". Patient's son was also present, who states that patient had acute onset of mental confusion and disorientation. Patient's [id number] saw him at 8 PM he was fine. At 10:30 PM patient's son went in, and he was scored in the bed, disoriented, not new his son, did not recognize his [id number] also he was delusional, seeing dogs as there were cats. He did not know any body. There was no report of tongue bite or loss of control of urine. No convulsion activity was noted. Patient was brought to the hospital by ambulance. EMS flow sheet not available in the chart. According to patient's son, his blood sugar was checked by curtain cleaner and was 360 at that time. Vital signs on arrival was blood pressure 168/100, pulse rate 87 temperature 98.7. Blood test shows normal WBC hemoglobin 10.0, platelets 161. PT/PTT normal. Chem-7 shows BUN 33 creatinine 1.75, hepatic panel normal. UA nega tive. CT head showed cerebral atrophy, no acute intracranial process. CT angiogram showed plaque formation and approximate 70% stenosis proximal right ICA and 25% stenosis proximal left ICA. Plaque slightly increased on the right as compared to old exam. EKG shows normal sinus rhythm, with nonspecific ST and T-wave abnormality. Chest x-ray showed no evidence for acute cardiopulmonary disease. Patient's son states that when he left patient in the hospital last night at 3 AM, he was still very confused but this morning when he returned back at noon, he is almost back to baseline. Patient was recently admitted to the hospital on 07/06/2020, for left facial weakness and slurred speech and numbness of bilateral hands. He had an MRI of the brain, which was negative for any acute stroke. Carotid Dopplers showed no significant stenosis. Patient had a prior CTA of the neck on 12/29/2019, was reported as normal. I called the radiologist Dr. Timmons reviewed the current CTA with the previous CTA from 12/29/2019. Dr. Timmons states the stenosis was present in the previous CTA as well, although because of some technical issues, was not very visible previously. Patient also has history of seizures while he was undergoing lung biopsy for lung cancer 2 years ago. Patient's son states that while he was under general anesthesia, he had a stroke and seizures. He was placed on Keppra at that time. Patient has smoked a pack per day for 33 years, quit 30 years ago. Denies any alcohol. He has diabetes for 30 years. Patient had a small lacunar stroke left oshea radiata on 01/31/2017. Review of Systems Patient complaining of some shortness of breath denies any chest pain denies any double vision loss of vision hearing loss hoarseness strokes or dysphagia. Denies any abdominal pain nausea vomiting diarrhea. Patient complains of some tiredness. No fever or chills. No headache. All other review of systems reviewed and noncontributory. Past Medical History Past Medical History: Coronary Artery Disease (CAD), Cancer, COPD, CVA/TIA, Diabetes Mellitus, Deep Vein Thrombosis (DVT), Hyperlipidemia, Hypertension, Myocardial Infarction ([place]), Osteoarthritis (OA), Pneumonia, Prostate Disorder, Seizure Disorder Additional Past Medical History / Comment(s): 07/2018 L lung cancer with left upper lobectomy/IV chemo but pt states he quit taking chemo early then diagnosed with R lower lobe cancer in August 2019 and had wedge resection and immunotherapy every 3 weeks, bronchitis, TIA and seizure after bronchoscopy in 2017, DVT L leg, IDDM type II, chronic cervical/back pain, diabetes mellitus, occasional bilateral ankle edema, BPH, chronic stage III kidney disease Last Myocardial Infarction Date:: 05/24/12 History of Any Multi-Drug Resistant Organisms: None Reported Past Surgical History: Back Surgery, Cholecystectomy, Heart Catheterization, Hernia Repair, Tonsillectomy Additional Past Surgical History / Comment(s): 2017 Bronchoscopy with bx, 2017 L upper lobectomy at [facility], August 2019 R lower lung wedge resection, low back surgery, 2011 cardiac cath-treat medically, umbilical hernia repair, bilateral cataract removals Past Anesthesia/Blood Transfusion Reactions: Previous Problems w/ Anesthesia Additional Past Anesthesia/Blood Transfusion Reaction / Comment(s): Seizure and mini stroke following lung biopsy Past Psychological History: Anxiety, Depression Additional Psychological History / Comment(s): Pt resides with his son. He has a nebulizer. Pt drives. Smoking Status: Never smoker Past Alcohol Use History: None Reported Additional Past Alcohol Use History / Comment(s): Pt started smoking in 1 and quit in 1995. He was a 2ppd smoker. Past Drug Use History: None Reported Additional Drug Use History / Comment(s): He denies any alcohol use or any illicit drug use - Past Family History Mother Family Medical History: No Reported History Additional Family Medical History / Comment(s): Mother was healthy Father Family Medical History: Diabetes Mellitus Additional Family Medical History / Comment(s): Father of diabetes at the age of 83 yrs. Medications and Allergies Home Medications Medication Instructions Recorded Confirmed Type Simvastatin [Zocor] 40 mg PO DAILY 07/30/19 07/28/20 History amLODIPine [Norvasc] 10 mg PO HS 07/30/19 07/28/20 History levETIRAcetam [Keppra] 500 mg PO BID 07/30/19 07/28/20 History Metoprolol Tartrate 25 mg PO BID #60 tab 09/10/19 07/28/20 Rx Rivaroxaban [Xarelto] 15 mg PO DAILY #30 tab 09/10/19 07/28/20 Rx INSULIN ASPART (NovoLOG) [NovoLOG 10 unit SQ AC-TID #1 vial 10/25/19 07/28/20 Rx (formulary)] Ipratropium-Albuterol Nebulize 3 ml INHALATION RT-TID #100 neb 12/30/19 07/28/20 Rx [Duoneb 0.5 mg-3 mg/3 ml Soln] HYDROcodone/APAP 7.5-325MG [[place] 1 tab PO TID PRN 07/06/20 07/28/20 History 7.5-325] Insulin Detemir [Levemir Flextouch] 80 units SQ HS 07/06/20 07/28/20 History Omeprazole 20 mg PO DAILY 07/06/20 07/28/20 History Aspirin 81 mg PO DAILY 30 Days #30 chew 07/08/20 07/28/20 Rx Levothyroxine Sodium [Synthroid] 25 mcg PO DAILY@0630 30 Days #30 07/08/20 07/28/20 Rx tab Allergies Allergy/AdvReac Type Severity Reaction Status Date / Time No Known Allergies Allergy Verified 07/28/20 10:29 Physical Examination - Vital Signs Vital Signs: Vital Signs Temp Pulse Pulse Resp BP BP Pulse Ox 07/28/20 11:00 18 07/28/20 09:27 76 07/28/20 09:10 76 07/28/20 08:00 100.4 F H 76 18 126/66 94 L 07/28/20 04:00 101.1 F H 100 20 186/80 97 07/28/20 01:52 99.0 F 99 20 188/87 95 07/28/20 01:19 100 20 07/28/20 01:00 86 18 168/80 97 07/28/20 00:45 85 18 184/90 97 07/28/20 00:30 87 18 141/88 97 07/28/20 00:15 98.6 F 87 18 169/98 97 07/28/20 00:00 92 18 183/95 97 07/27/20 23:56 87 18 176/93 98 07/27/20 23:37 98.7 F 87 18 168/100 98 Intake and Output 07/27/20 07/28/20 07/28/20 22:59 06:59 14:59 Output Total 700 Balance -700 Output: Urine 700 Other: Voiding Method Urinal Weight 89 kg On examination patient is an elderly male, in no acute distress. Patient is alert awake oriented to time place and person. He knows it is S 2019 and that he is in [facility] and name of the current president. Speech and language functions are normal. Attention and concentration fund of knowledge is adequate. Detail testing deferred. On cranial nerve examination pupils are round and reactive to light, visual wright are full on confrontation, extraocular muscles are intact with no nystagmus. Face is symmetric, tongue protrudes to the midline. Palatal elevation sensation normal. Hearing and shoulder shrug normal on muscle strength testing the patient has right pronation but no drift. The strength is normal in arms and legs. Hip flexion is about 4 bilaterally. Reflexes are symmetric and plantars are probable downgoing. Sensory touch is equal. No ataxia for [id number] testing, tone and bulk of muscles normal. Gait deferred. There is no obvious bruit, S1 and S2 audible. Patient has coarse rhonchi. Abdomen is soft nontender. Mild peripheral edema. Patient's some spots of hyperpigmentation in the distal lower extremities. Results - Laboratory Findings CBC and BMP: 07/27/20 23:44 07/27/20 23:44 Abnormal Lab Findings: Abnormal Labs 07/27/20 07/27/20 07/27/20 23:35 23:44 23:44 RBC 3.41 L Hgb 10.0 L D Hct 30.8 L Eosinophils # 1.1 H Chloride 108 H BUN 33 H Creatinine 1.75 H Glucose 306 H POC Glucose (mg/dL) 320 H AST 14 L Total Protein 5.2 L Albumin 3.0 L Ur Specific [place] Urine Protein Urine Glucose (UA) Urine Blood Urine Mucus 07/28/20 07/28/20 00:49 06:26 RBC Hgb Hct Eosinophils # Chloride BUN Creatinine Glucose POC Glucose (mg/dL) 294 H AST Total Protein Albumin Ur Specific [place] 1.039 H Urine Protein 2+ H Urine Glucose (UA) 4+ H Urine Blood Small H Urine Mucus Rare H Assessment and Plan Assessment: * 74-year-old male with acute episode of confusion, disorientation, lasting for a few hours. Exact cause remains uncertain. No lateralizing symptoms noted by the patient or the family. Rule out TIA, focal seizure. * Right ICA stenosis 70% per CTA report. 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 Plan: * Patient has presented with an episode of transient mental confusion of unclear etiology. We will check an EEG to rule out any epileptiform activity. Patient is currently on Keppra 500 mg twice a day which will be continued. * Current event was uncertain if was TIA or some other spell (?seizure, TGA or transient encephalopathy from underlying pulmonary disease). However patient had a more clear TIA with slurred speech and left facial droop documented with recent admission on 07/06/2020, which suggest probable symptomatic right ICA stenosis. Interestingly carotid Doppler showed no stenosis on 07/06/2020. Patient had a previous CTA of head and neck on 12/29/2019, at which time it was 50% stenosis on the right, which has now progressed to 70%. Vascular surgery is on board. Patient probably will benefit from right CEA to prevent recurrent TIA and ischemic strokes. * Patient is on Xarelto 15 mg daily. Agree with adding aspirin 81 mg daily. * Patient's most recent lipid panel shows cholesterol 96, LDL 43, HDL 29 and triglycerides 122. Continue same dose of Lipitor.
--- NOTE | 2020-07-28 17:43 | EEG ---
ELECTROENCEPHALOGRAM REPORT ELECTROENCEPHALOGRAM REPORT: DATE OF SERVICE: 07/28/2020 PREAMBLE: This is a 74-year-old male who had an episode of altered mental status. This study is performed to evaluate for any epileptiform activity. EEG FINDINGS: This is a 21-channel routine EEG recording in a patient utilizing 10/20 international system with referential and bipolar montages. The background consists of well- developed, moderately well regulated, mixed frequencies of some alpha and some theta activity seen in bihemispheric region. The patient was drowsy during most of the study. Stage II sleep was attained with presence of some vertex waves. There was very frequent intermittent focal slowing in the left hemispheric region in delta range. No definitive focal or generalized epileptiform activity was seen. EKG rhythm lead revealed no obvious arrhythmia. IMPRESSION: This is a mainly drowsy and asleep EEG. No epileptiform activity was seen. Intermittent left hemispheric focal slowing was seen, which is suggestive of focal cortical neuronal dysfunction and may suggest underlying structural abnormality. No definitive epileptiform activity was seen. MMODL / IJN: [id number] / [facility]Fatou
[2020-07-28 18:03] LABS: Glucose,Whole Blood 251 mg/dL (75-99)
[2020-07-28 20:50] LABS: Glucose,Whole Blood 324 mg/dL (75-99)
[2020-07-28] MEDS: amLODIPine 10 MG TAB PO SCH (21:15)
[2020-07-28] MEDS ORDERED: IOPAMIDOL CONTRAST (ORAL USE) VIAL PO PRN (23:29)
--- NOTE | 2020-07-28 23:31 | P.CONS ---
History of Present Illness - Reason for Consult Consult date: 07/28/20 Fever Requesting physician: Champ E Sheet - Chief Complaint Right-sided weakness x one day - History of Present Illness Patient is 74-year-old male who was brought into the ER at [facility] last night for evaluation of possible stroke currently the patient was noticed to have some right-sided weakness and difficulty in speech, at the time of ER physician evaluation and the patient was complaining of not feeling well and did have a hard time specifically say what is bothering him , on her abdomen. The patient was afebrile subsequent early this morning the patient spiked a Fever of 101.1F, the patient did have a normal white count and no lymphopenia 8 crit was mildly elevated at 1.75 no elevated liver enzymes, urine was negative chest x-ray was negative for acute cardiopulmonary disease 2 the patient has been started on Rocephin empirically and infection disease was consulted for further management of antibiotic therapy, patient of evolution denies any headache or chest pain or shortness when he did have very minimal cough denies having any nausea no vomiting no abdominal pain or any diarrhea Review of Systems Positive point has been mentioned in the HPI rest of the systems are negative Past Medical History Past Medical History: Coronary Artery Disease (CAD), Cancer, COPD, CVA/TIA, Diabetes Mellitus, Deep Vein Thrombosis (DVT), Hyperlipidemia, Hypertension, Myocardial Infarction ([place]), Osteoarthritis (OA), Pneumonia, Prostate Disorder, Seizure Disorder Additional Past Medical History / Comment(s): 07/2018 L lung cancer with left upper lobectomy/IV chemo but pt states he quit taking chemo early then diagnosed with R lower lobe cancer in August 2019 and had wedge resection and immunotherapy every 3 weeks, bronchitis, TIA and seizure after bronchoscopy in 2017, DVT L leg, IDDM type II, chronic cervical/back pain, diabetes mellitus, occasional bilateral ankle edema, BPH, chronic stage III kidney disease Last Myocardial Infarction Date:: 05/24/12 History of Any Multi-Drug Resistant Organisms: None Reported Past Surgical History: Back Surgery, Cholecystectomy, Heart Catheterization, Hernia Repair, Tonsillectomy Additional Past Surgical History / Comment(s): 2017 Bronchoscopy with bx, 2017 L upper lobectomy at [facility], August 2019 R lower lung wedge resection, low back surgery, 2011 cardiac cath-treat medically, umbilical hernia repair, bilateral cataract removals Past Anesthesia/Blood Transfusion Reactions: Previous Problems w/ Anesthesia Additional Past Anesthesia/Blood Transfusion Reaction / Comm: Seizure and mini stroke following lung biopsy Past Psychological History: Anxiety, Depression Additional Psychological History / Comment(s): Pt resides with his son. He has a nebulizer. Pt drives. Smoking Status: Never smoker Past Alcohol Use History: None Reported Additional Past Alcohol Use History / Comment(s): Pt started smoking in 1960 and quit in 1995. He was a 2ppd smoker. Past Drug Use History: None Reported Additional Drug Use History / Comment(s): He denies any alcohol use or any illicit drug use - Past Family History Mother Family Medical History: No Reported History Additional Family Medical History / Comment(s): Mother was healthy Father Family Medical History: Diabetes Mellitus Additional Family Medical History / Comment(s): Father of diabetes at the age of 83 yrs. Medications and Allergies Home Medications Medication Instructions Recorded Confirmed Type Simvastatin [Zocor] 40 mg PO DAILY 07/30/19 07/28/20 History amLODIPine [Norvasc] 10 mg PO HS 07/30/19 07/28/20 History levETIRAcetam [Keppra] 500 mg PO BID 07/30/19 07/28/20 History Metoprolol Tartrate 25 mg PO BID #60 tab 09/10/19 07/28/20 Rx Rivaroxaban [Xarelto] 15 mg PO DAILY #30 tab 09/10/19 07/28/20 Rx INSULIN ASPART (NovoLOG) [NovoLOG 10 unit SQ AC-TID #1 vial 10/25/19 07/28/20 Rx (formulary)] Ipratropium-Albuterol Nebulize 3 ml INHALATION RT-TID #100 neb 12/30/19 07/28/20 Rx [Duoneb 0.5 mg-3 mg/3 ml Soln] HYDROcodone/APAP 7.5-325MG [[place] 1 tab PO TID PRN 07/06/20 07/28/20 History 7.5-325] Insulin Detemir [Levemir Flextouch] 80 units SQ HS 07/06/20 07/28/20 History Omeprazole 20 mg PO DAILY 07/06/20 07/28/20 History Aspirin 81 mg PO DAILY 30 Days #30 chew 07/08/20 07/28/20 Rx Levothyroxine Sodium [Synthroid] 25 mcg PO DAILY@0630 30 Days #30 07/08/20 07/28/20 Rx tab Allergies Allergy/AdvReac Type Severity Reaction Status Date / Time No Known Allergies Allergy Verified 07/28/20 10:29 Physical Exam Vitals: Vital Signs Temp Pulse Pulse Resp BP BP Pulse Ox 07/28/20 20:55 68 07/28/20 20:44 72 95 07/28/20 19:38 97.6 F 76 18 156/73 95 07/28/20 17:17 75 18 07/28/20 16:56 97.4 F L 75 18 140/67 96 07/28/20 13:32 68 07/28/20 13:20 68 07/28/20 12:00 98.7 F 61 18 128/67 97 07/28/20 11:00 18 07/28/20 09:27 76 07/28/20 09:10 76 07/28/20 08:00 100.4 F H 76 18 126/66 94 L 07/28/20 04:00 101.1 F H 100 20 186/80 97 07/28/20 01:52 99.0 F 99 20 188/87 95 07/28/20 01:19 100 20 07/28/20 01:00 86 18 168/80 97 07/28/20 00:45 85 18 184/90 97 07/28/20 00:30 87 18 141/88 97 07/28/20 00:15 98.6 F 87 18 169/98 97 07/28/20 00:00 92 18 183/95 97 07/27/20 23:56 87 18 176/93 98 07/27/20 23:37 98.7 F 87 18 168/100 98 Intake and Output 07/28/20 07/28/20 07/29/20 14:59 22:59 06:59 Intake Total 480 236 Balance 480 236 Intake: Oral 480 236 Other: Voiding Method Urinal # Voids 1 1 GENERAL DESCRIPTION: An elderly male lying in bed, no distress. No tachypnea or accessory muscle of respiration use. HEENT: Shows Pallor , no scleral icterus. Oral mucous membrane is dry. No pharyngeal erythema or thrush NECK: Trachea central, no thyromegaly. LUNGS: Unlabored breathing. Coarse breath sounds on the left side. No wheeze or crackle. HEART: S1, S2, regular rate and rhythm. No loud murmur ABDOMEN: Soft, no tenderness , guarding or rigidity, no organomegaly EXTREMITIES: No edema of feet. SKIN: No rash, no masses palpable. NEUROLOGICAL: The patient is awake, alert, oriented x3, mood and affect normal. Results CBC & Chem 7: 07/27/20 23:44 07/27/20 23:44 Labs: Abnormal Lab Results - Last 24 Hours (Table) 07/27/20 07/27/20 07/27/20 Range/Units 23:35 23:44 23:44 RBC 3.41 L (4.30-5.90) m/uL Hgb 10.0 L D (13.0-17.5) gm/dL Hct 30.8 L (39.0-53.0) % Eosinophils # 1.1 H (0-0.7) k/uL Chloride 108 H (98-107) mmol/L BUN 33 H (9-20) mg/dL Creatinine 1.75 H (0.66-1.25) mg/dL Glucose 306 H (74-99) mg/dL POC Glucose (mg/dL) 320 H (75-99) mg/dL AST 14 L (17-59) U/L Total Protein 5.2 L (6.3-8.2) g/dL Albumin 3.0 L (3.5-5.0) g/dL Ur Specific [place] (1.001-1.035) Urine Protein (Negative) Urine Glucose (UA) (Negative) Urine Blood (Negative) Urine Mucus (None) /hpf 07/28/20 07/28/20 07/28/20 Range/Units 00:49 06:26 18:01 RBC (4.30-5.90) m/uL Hgb (13.0-17.5) gm/dL Hct (39.0-53.0) % Eosinophils # (0-0.7) k/uL Chloride (98-107) mmol/L BUN (9-20) mg/dL Creatinine (0.66-1.25) mg/dL Glucose (74-99) mg/dL POC Glucose (mg/dL) 294 H 251 H (75-99) mg/dL AST (17-59) U/L Total Protein (6.3-8.2) g/dL Albumin (3.5-5.0) g/dL Ur Specific [place] 1.039 H (1.001-1.035) Urine Protein 2+ H (Negative) Urine Glucose (UA) 4+ H (Negative) Urine Blood Small H (Negative) Urine Mucus Rare H (None) /hpf 07/28/20 Range/Units 20:48 RBC (4.30-5.90) m/uL Hgb (13.0-17.5) gm/dL Hct (39.0-53.0) % Eosinophils # (0-0.7) k/uL Chloride (98-107) mmol/L BUN (9-20) mg/dL Creatinine (0.66-1.25) mg/dL Glucose (74-99) mg/dL POC Glucose (mg/dL) 324 H (75-99) mg/dL AST (17-59) U/L Total Protein (6.3-8.2) g/dL Albumin (3.5-5.0) g/dL Ur Specific [place] (1.001-1.035) Urine Protein (Negative) Urine Glucose (UA) (Negative) Urine Blood (Negative) Urine Mucus (None) /hpf Assessment and Plan Assessment: 1- patient presented to hospital with mental status changes weakness right-sided with concern for possible CVA this patient subsequently spiked a fever of 101F, so far workup including normal white count UA is negative chest x-ray 2 did not show any pneumonia with consult for possible viral syndrome versus intra-abdominal source however the patient was noticed to have mild cough and some coarse breath sounds on the left side with concern for possible aspiration pneumonitis (1) Fever Current Visit: Yes Status: Acute Code(s): R50.9 - FEVER, UNSPECIFIED SNOMED Code(s): 365381845 Plan: 1- blood cultures will be followed and check a CRP and pro calcitonin level 2-we will check a CT of abdominal pelvis with oral contrast only 3-empirically add Unasyn 3 g every 6 hours while waiting for the workup to finalize We will follow on clinical condition and cultures to further adjust medication if needed Thank you for this consultation will follow this patient with you Time with Patient: Greater than 30
[2020-07-29] MEDS: AMPICILLIN-SULBACTAM 3 GM in SODIUM CHLORIDE 0.9% 100 ML IVPB SCH ×5 (00:07→23:16)
[2020-07-29 06:47] LABS: Glucose,Whole Blood 217 mg/dL (75-99)
[2020-07-29] MEDS: PANTOPRAZOLE 40 MG TABLET PO SCH (06:50)
[2020-07-29] MEDS: LEVOTHYROXINE 25 MCG TAB PO SCH (06:50)
[2020-07-29] MEDS: INSULIN ASPART (NovoLOG) 100 UNIT/ML VIAL SQ SCH ×4 (06:50→20:37)
[2020-07-29 08:12] LABS: Basophils % (A) 0 %; Eosinophils # (A) 0.7 k/uL (0-0.7); Eosinophils % (A) 11 %; HGB 9.3 gm/dL (13.0-17.5); Lymphocytes # (A) 0.8 k/uL (1.0-4.8); Lymphocytes % (A) 14 %; MCH 28.8 pg (25.0-35.0); MCV 89.9 fL (80.0-100.0); Mean Platelet Volume 7.2; Monocytes # (A) 0.3 k/uL (0-1.0); Monocytes % (A) 5 %; Neutrophils # (A) 4.1 k/uL (1.3-7.7); Neutrophils % (A) 68 %; Platelet Count 141 k/uL (150-450); RBC 3.23 m/uL (4.30-5.90); RDW 13.5 % (11.5-15.5)
[2020-07-29] MEDS: IPRATROPIUM-ALBUTEROL 3 ML NEB INHALATION SCH ×3 (08:15→18:56)
[2020-07-29 08:29] LABS: Calcium 8.4 mg/dL (8.4-10.2); Potassium 4.5 mmol/L (3.5-5.1)
[2020-07-29] MEDS: ATORVASTATIN 20 MG TAB PO SCH (08:42)
[2020-07-29] MEDS: levETIRAcetam 500 MG TAB PO SCH ×2 (08:42→20:37)
[2020-07-29] MEDS: METOPROLOL TARTRATE 25 MG TAB PO SCH ×2 (08:42→20:37)
[2020-07-29] MEDS: RIVAROXABAN 15 MG TAB PO SCH (08:42)
[2020-07-29] MEDS: ASPIRIN 81 MG PO SCH (08:42)
--- NOTE | 2020-07-29 10:59 | P.PN ---
Subjective This is a pleasant 74 years old male with multiple medical problems as below. Patient was admitted by ED team because of right-sided weakness and slurred speech, however patient was suddenly this morning he has been weak on the right side chronically for a while due to stroke and he did not have slurred speech also for a while. And that he came to the hospital because of dyspnea for 2 days duration. Associated with cough and the total yellow phlegm but no chest pain. Patient denies motor weakness, no slurred speech, no blurred vision, no new sensory loss. He had normal bowel movements and no urinary complaints. He denies smoking, alcohol or illicit drugs. On admission blood pressure was 186/80, currently 126/66, he has fever of 101.1. He is saturating 94% on 2 L oxygen via nasal cannula. Labs showing no leukocytosis, WBC is 6.3K. hemoglobin 10. Platelets are normal. INR is 1.1. Creatinine 1.7, with baseline Bryn 1.4-2.0. Glucose is 306. Troponin are negative 3 Chest x-ray: No acute process. CT of the brain showing 70% stenosis of the right internal carotid artery and 25% stenosis of the left internal carotid artery CT of the brain showing cerebral atrophy with no acute intracranial abnormality as per radiologist. EKG showing normal sinus rhythm at [address]-T changes. In the emergency room patient is continued on aspirin 81 mg which is home medication. He was started on normal saline at 100 mL per hour Neurologist has been consulted from emergency room. Patient is already on Xarelto as home medication 07/29/2020 Patient today feeling better, his dyspnea is improving, no chest pain. He said he had some stuttering speech and bilateral upper extremity weakness which were equal on both sides and. Of confusion for 1-2 hours prior to coming to the hospital, currently resolved as per patient. He is hemodynamically stable. No more fever today and yesterday so far. I agree with vascular surgery team that patient mostly has asymptomatic asymptomatic RCA stenosis and is estimated 60-65% per surgical team, no need for surgical intervention and follow-up as an outpatients EEG showing no epileptiform discharge and possible structural abnormality, neurology team on the case and will follow-up recommendation. Influenza test was negative. Coronavirus test is pending. C-reactive protein is normal at 9.0, pro-, calcitonin is pending. His sugar was elevated, he told me he was taken Levemir 80 units at bedtime every night. We started the patient on Levemir 40 units twice a day plus insul in sliding scale. Lower normal saline to 50 mL per hour. Continue with Xarelto Review of System CONSTITUTIONAL: No fever, no malaise, no fatigue. HEENT: No recent visual problems or hearing problems. Denied any sore throat. CARDIOVASCULAR: No orthopnea, PND, no palpitations, no syncope. PULMONARY: No shortness of breath, no cough, no hemoptysis. GASTROINTESTINAL: No diarrhea, no nausea, no vomiting, no abdominal pain. Normoactive bowel sounds. NEUROLOGICAL: No headaches, no weakness, no numbness. HEMATOLOGICAL: Denies any bleeding or petechiae. GENITOURINARY: Denies any burning micturition, frequency, or urgency. MUSCULOSKELETAL/RHEUMATOLOGICAL: Denies any joint pain, swelling, or any muscle pain. ENDOCRINE: Denies any polyuria or polydipsia. Active Medications Generic Name Dose Route Start Last Admin Trade Name Freq PRN Reason Stop Dose Admin Acetaminophen 650 mg 07/28/20 03:29 07/28/20 08:12 Acetaminophen Tab 325 Mg Tab PO 650 mg Q6HR PRN Administration Fever and/ or Pain Hydrocodone Bitart/Acetaminophen 1 each 07/28/20 00:53 Hydrocodone/Apap 7.5-325mg 1 Each Tab PO TID PRN Pain Albuterol/Ipratropium 3 ml 07/28/20 08:00 07/29/20 08:15 Ipratropium-Albuterol 3 Ml Neb INHALATION 3 ml RT-TID NI Administration Amlodipine Besylate 10 mg 07/28/20 21:00 07/28/20 21:15 Amlodipine 10 Mg Tab PO 10 mg HS NI Administration Aspirin 81 mg 07/28/20 09:00 07/29/20 08:42 Aspirin 81 Mg PO 81 mg DAILY NI Administration Atorvastatin Calcium 20 mg 07/28/20 09:00 07/29/20 08:42 Atorvastatin 20 Mg Tab PO 20 mg DAILY NI Administration Sodium Chloride 1,000 mls @ 50 mls/hr 07/28/20 01:00 07/28/20 21:16 Saline 0.9% IV 75 mls/hr .Q20H NI Administration Ampicillin Sodium/Sulbactam 100 mls @ 200 mls/hr 07/29/20 00:00 07/29/20 06:50 Sodium 3 gm/ Sodium Chloride IVPB 200 mls/hr Q6HR NI Administration Insulin Aspart 0 unit 07/28/20 07:30 07/29/20 06:50 Insulin Aspart (Novolog) 100 Unit/Ml Vial SQ 3 unit ACHS NI Administration Protocol Insulin Detemir 40 unit 07/29/20 10:15 Insulin Detemir (Levemir) 100 Unit/Ml Syr SQ BID NI Iopamidol 30 ml 07/28/20 23:29 07/29/20 08:41 Iopamidol Contrast (Oral Use) Vial PO 07/29/20 23:30 30 ml Q60M PRN Administration CT Scan Levetiracetam 500 mg 07/28/20 09:00 07/29/20 08:42 Levetiracetam 500 Mg Tab PO 500 mg BID NI Administration Levothyroxine Sodium 25 mcg 07/28/20 06:30 07/29/20 06:50 Levothyroxine 25 Mcg Tab PO 25 mcg DAILY@0630 NI Administration Metoprolol Tartrate 25 mg 07/28/20 09:00 07/29/20 08:42 Metoprolol Tartrate 25 Mg Tab PO 25 mg BID NI Administration Ondansetron HCl 4 mg 07/28/20 03:28 07/28/20 03:48 Ondansetron 4 Mg/2 Ml Vial IVP 4 mg Q6HR PRN Administration Nausea And Vomiting Pantoprazole Sodium 40 mg 07/28/20 07:30 07/29/20 06:50 Pantoprazole 40 Mg Tablet PO 40 mg DAILY@0730 [facility] Administration Rivaroxaban 15 mg 07/28/20 09:00 07/29/20 08:42 Rivaroxaban 15 Mg Tab PO 15 mg DAILY NI Administration Objective - Vital Signs Vital signs: Vital Signs Temp 98.4 F 07/29/20 07:51 Pulse 72 07/29/20 08:24 Resp 19 07/29/20 08:00 BP 175/84 07/29/20 07:51 Pulse Ox 94 L 07/29/20 07:51 Intake & Output 07/28/20 07/29/20 07/29/20 18:59 06:59 18:59 Intake Total 716 120 Balance 716 120 Weight 86.5 kg Intake: Oral 716 120 Other: Voiding Method Urinal Urinal # Voids 1 - Exam GENERAL: The patient is alert and oriented x3, not in any acute distress. Well developed, well nourished. HEENT: Pupils are round and equally reacting to light. EOMI. No scleral icterus. No conjunctival pallor. Normocephalic, atraumatic. No pharyngeal erythema. No thyromegaly. CARDIOVASCULAR: S1 and S2 present. No murmurs, rubs, or gallops. PULMONARY: Chest is clear to auscultation, no wheezing or crackles. ABDOMEN: Soft, nontender, nondistended, normoactive bowel sounds. No palpable organomegaly. MUSCULOSKELETAL: No joint swelling or deformity. EXTREMITIES: No cyanosis, clubbing, or pedal edema. NEUROLOGICAL: Gross neurological examination did not reveal any focal deficits. SKIN: No rashes. no petechiae. - Labs CBC & Chem 7: 07/29/20 07:22 07/29/20 07:22 Labs: Abnormal Lab Results - Last 24 Hours (Table) 07/28/20 07/28/20 07/29/20 Range/Units 18:01 20:48 06:45 RBC (4.30-5.90) m/uL Hgb (13.0-17.5) gm/dL Hct (39.0-53.0) % Plt Count (150-450) k/uL Lymphocytes # (1.0-4.8) k/uL Chloride (98-107) mmol/L BUN (9-20) mg/dL Creatinine (0.66-1.25) mg/dL Glucose (74-99) mg/dL POC Glucose (mg/dL) 251 H 324 H 217 H (75-99) mg/dL HDL Cholesterol (40-60) mg/dL 07/29/20 07/29/20 Range/Units 07:22 07:22 RBC 3.23 L (4.30-5.90) m/uL Hgb 9.3 L (13.0-17.5) gm/dL Hct 29.0 L (39.0-53.0) % Plt Count 141 L (150-450) k/uL Lymphocytes # 0.8 L (1.0-4.8) k/uL Chloride 110 H (98-107) mmol/L BUN 27 H (9-20) mg/dL Creatinine 1.62 H (0.66-1.25) mg/dL Glucose 173 H (74-99) mg/dL POC Glucose (mg/dL) (75-99) mg/dL HDL Cholesterol 26 L (40-60) mg/dL Assessment and Plan Assessment: Fever and dyspnea 70% right internal carotid artery stenosis, no need for surgical intervention Periods of confusion and stuttered speech. Neurology consulted Diabetes mellitus Hypertension Hyperlipidemia History of coronary artery disease COPD, no acute exacerbation History of CVA/TIA Osteoarthritis Seizure disorder Benign prostatic hypertrophy History of left lung cancer status post lumpectomy and chemotherapy in 2018. Chronic cervical and low back pain Chronic kidney disease stage III Plan: This is a pleasant 74 years old male who presents with acute stroke.Follow-up recommendation by neurologist. Follow-up recommendation by infectious disease and vascular surgery team. No need for surgery now. Add Levemir monitor sugar. Follow-up CT of the abdomen and pelvis, continue with unasyn Labs and medication were reviewed.. Continue same treatment. Continue with symptomatic treatment. Resume home medication. Monitor lytes and vitals. DVT and GI prophylaxis. Further recommendations depends on the clinical course of the patient DVT prophylaxis Xarelto GI Prophylaxis: Pepcid PT/OT: Pending Prognosis is guarded
[2020-07-29] MEDS: INSULIN DETEMIR (LEVEMIR) 100 UNIT/ML SYR SQ SCH ×2 (11:17→21:00)
[2020-07-29] MEDS: SODIUM CHLORIDE 0.9% 1,000 ML IV SCH (11:17)
--- NOTE | 2020-07-29 11:48 | CT ---
EXAMINATION TYPE: CT abdomen pelvis wo con DATE OF EXAM: 07/29/2020 COMPARISON: CT chest abdomen pelvis 06/18/2020 HISTORY: Fever. History of lung cancer. CT DLP: 823.4 mGycm Automated exposure control for dose reduction was used. TECHNIQUE: Helical acquisition of images was performed from the lung bases through the pelvis. CONTRAST: Performed with Oral Contrast and without intravenous contrast. FINDINGS: LUNG BASES: Mild patchy airspace opacity of the left lower lobe. No pleural or pericardial effusion. Cardiac size normal. Calcified coronary artery disease. LIVER: Normal size and attenuation. BILIARY SYSTEM: Cholecystectomy. No intrahepatic or extrahepatic biliary ductal dilatation. PANCREAS: Fatty atrophy. SPLEEN: Not enlarged. ADRENALS: Normal. KIDNEYS: No hydronephrosis or hydroureter. No urolithiasis. BOWEL: Small hiatal hernia. No evidence of obstruction or thickening. Colonic diverticulosis. No acu te diverticulitis. PERITONEUM: No free air is visualized. No free fluid. ADENOPATHY: No lymphadenopathy. PELVIS: Underdistended urinary bladder. VASCULATURE: No abdominal aortic aneurysm. MUSCULOSKELETAL: Degenerative changes of the spine. No aggressive osseous destructive lesions. Redem onstrated sclerotic foci of the pelvis. IMPRESSION: 1. Mild patchy airspace opacity of the left lower lobe. Findings may represent developing pneumonia. 2. No acute abdominopelvic process.
[2020-07-29 12:11] LABS: Glucose,Whole Blood 204 mg/dL (75-99)
--- NOTE | 2020-07-29 13:07 | P.PN ---
Subjective Progress Note Date: 07/29/20 Principal diagnosis: Carotid stenosis The patient was seen and examined at the bedside. The patient denies any acute changes through the night. He denies any slurring of speech, extremity weakness, or other focal deficits. At this time he reports no shortness of breath or chest pain. He was afebrile through the night. The patient underwent an EEG, the impression states this is mainly drowsy and asleep EEG. No lip to perform activity was seen. Intermittent left hemispheric focal slowing was seen, which is suggestive of focal cortical neuronal dysfunction and may suggest underlying structural abnormality. No definitive a left forearm activity was seen. Objective - Vital Signs Vital signs: Vital Signs Temp 98.4 F 07/29/20 07:51 Pulse 72 07/29/20 08:24 Resp 19 07/29/20 08:00 BP 175/84 07/29/20 07:51 Pulse Ox 94 L 07/29/20 07:51 Intake & Output 07/28/20 07/29/20 07/29/20 18:59 06:59 18:59 Intake Total 716 120 Balance 716 120 Weight 86.5 kg Intake: Oral 716 120 Other: Voiding Method Urinal Urinal # Voids 1 - Exam General appearance: The patient is alert, oriented, in no acute distress. HET: Head is normocephalic and atraumatic. Pupils are equal and reactive. Neck: Supple without lymphadenopathy. Trachea midline. No bruit appreciated bilaterally. Heart: S1 S2. Regular rate and rhythm. Lungs: Lateral wheezes Abdomen: Soft, nontender, nondistended with bowel sounds. Extremities: Normal skin color and turgor. No cyanosis, rash, ulceration, clubbing, or edema. Radial and pedal pulses are 2/4 bilaterally. Neurological: No focal deficits noted. Strength and sensation are grossly intact. Some evidence of minimal right-sided weakness compared to left. Speech is fluent. He has facial symmetry, and tongue protrudes midline. He is alert and oriented 3. - Labs CBC & Chem 7: 07/29/20 07:22 07/29/20 07:22 Labs: Abnormal Lab Results - Last 24 Hours (Table) 07/28/20 07/28/20 07/29/20 Range/Units 18:01 20:48 06:45 RBC (4.30-5.90) m/uL Hgb (13.0-17.5) gm/dL Hct (39.0-53.0) % Plt Count (150-450) k/uL Lymphocytes # (1.0-4.8) k/uL Chloride (98-107) mmol/L BUN (9-20) mg/dL Creatinine (0.66-1.25) mg/dL Glucose (74-99) mg/dL POC Glucose (mg/dL) 251 H 324 H 217 H (75-99) mg/dL HDL Cholesterol (40-60) mg/dL 07/29/20 07/29/20 Range/Units 07:22 07:22 RBC 3.23 L (4.30-5.90) m/uL Hgb 9.3 L (13.0-17.5) gm/dL Hct 29.0 L (39.0-53.0) % Plt Count 141 L (150-450) k/uL Lymphocytes # 0.8 L (1.0-4.8) k/uL Chloride 110 H (98-107) mmol/L BUN 27 H (9-20) mg/dL Creatinine 1.62 H (0.66-1.25) mg/dL Glucose 173 H (74-99) mg/dL POC Glucose (mg/dL) (75-99) mg/dL HDL Cholesterol 26 L (40-60) mg/dL Assessment and Plan Assessment: 1. asymptomatic right ICA, 70% right internal carotid stenosis on CTA chest, carotid ultrasound completed 07/06/20 showing 30% stenosis bilateral 2. Slurred speech 3. right sided weakness 4. Diabetes mellitus 5. Hypertension 6. TIA/CVA with right-sided residual weakness 7. Hyperlipidemia 8. Coronary artery disease 9. COPD Plan: Continue with Xarelto, aspirin, and atorvastatin. Neurology consult completed, which states patient may benefit from a right carotid endarterectomy to prevent recurrent TIA and ischemic strokes. CT angiogram and carotid ultrasound reviewed with discordant findings, Right ICA more likely 60-65 percent stenosis. Previous admission MRI reviewed showing age related atrophy and chronic small vessel ischemia. No subacute infarct was evident. Discussed findings and recommendations from neurology with Dr. Guerrero. He agrees to continue outpatient workup for right ICA stenosis. Further recommendations to follow. The above dictated assessment and findings were discussed with Dr. Guerrero. The impression and plan of care have been directed as dictated.
--- NOTE | 2020-07-29 15:31 | PN ---
PROGRESS NOTE DATE OF SERVICE: 07/29/2020 REASON FOR FOLLOWUP: Fever. INTERVAL HISTORY: The patient is currently afebrile. The patient is breathing comfortably. Denies having any chest pain or shortness of breath. Minimal cough. No sputum. No nausea or vomiting. No abdominal pain or diarrhea. PHYSICAL EXAMINATION: Blood pressure 178/84 with a pulse of 66, temperature 97.9. He is 94% on room air. General description is an elderly male lying in bed in no distress. RESPIRATORY SYSTEM: Unlabored breathing with decreased breath sounds at the base. No wheeze. HEART: S1, S2. Regular rate and rhythm. ABDOMEN: Soft. No tenderness. LABS: Hemoglobin 9.3, white count 6.0. BUN of 27, creatinine 1.62. DIAGNOSTIC IMPRESSION AND PLAN: Patient with fever with concern for left lower lobe pneumonia, possibly community- acquired versus aspiration etiology. Patient has clinically responded to Unasyn. That will be continued while inpatient. Finish therapy with oral antibiotic. Continue supportive care. MMODL / IJN: [id number] /
[2020-07-29 16:18] LABS: Hemoglobin A1C 8.8 % (4.0-6.0)
[2020-07-29 16:48] LABS: Glucose,Whole Blood 334 mg/dL (75-99)
[2020-07-29] MEDS: amLODIPine 10 MG TAB PO SCH (17:28)
[2020-07-29 20:47] LABS: Glucose,Whole Blood 298 mg/dL (75-99)
[2020-07-30] MEDS: AMPICILLIN-SULBACTAM 3 GM in SODIUM CHLORIDE 0.9% 100 ML IVPB SCH ×4 (06:23→22:54)
[2020-07-30] MEDS: PANTOPRAZOLE 40 MG TABLET PO SCH (06:23)
[2020-07-30] MEDS: LEVOTHYROXINE 25 MCG TAB PO SCH (06:23)
[2020-07-30 06:29] LABS: Glucose,Whole Blood 62 mg/dL (75-99)
[2020-07-30] MEDS: INSULIN ASPART (NovoLOG) 100 UNIT/ML VIAL SQ SCH ×4 (06:33→22:53)
[2020-07-30 06:38] LABS: Glucose,Whole Blood 54 mg/dL (75-99)
[2020-07-30 06:46] LABS: Glucose,Whole Blood 74 mg/dL (75-99)
[2020-07-30] MEDS: IPRATROPIUM-ALBUTEROL 3 ML NEB INHALATION SCH ×3 (08:15→21:23)
[2020-07-30] MEDS: ASPIRIN 81 MG PO SCH (08:58)
[2020-07-30] MEDS: RIVAROXABAN 15 MG TAB PO SCH (08:58)
[2020-07-30] MEDS: levETIRAcetam 500 MG TAB PO SCH ×2 (08:58→19:56)
[2020-07-30] MEDS: ATORVASTATIN 20 MG TAB PO SCH (08:58)
[2020-07-30] MEDS: methylPREDNISolone SOD SUCCI 125 MG/2 ML VIAL IV SCH ×3 (08:59→17:34)
[2020-07-30] MEDS: METOPROLOL TARTRATE 25 MG TAB PO SCH ×2 (08:59→19:56)
[2020-07-30] MEDS: INSULIN DETEMIR (LEVEMIR) 100 UNIT/ML SYR SQ SCH ×2 (09:04→22:53)
--- NOTE | 2020-07-30 10:38 | P.PN ---
Subjective Progress Note Date: 07/29/20 Patient is feeling fine, offers no new complaints. No TIAs or mental confusion. His blood pressure and blood sugars are running high in around 196/87 and 334 range respectively. No headache. Objective - Vital Signs Vital signs: Vital Signs Temp 98.4 F 07/29/20 16:00 Pulse 74 07/29/20 16:00 Resp 18 07/29/20 16:00 BP 184/99 07/29/20 16:00 Pulse Ox 96 07/29/20 16:00 Intake & Output 07/28/20 07/29/20 07/29/20 18:59 06:59 18:59 Intake Total 716 740 Balance 716 740 Weight 86.5 kg Intake: Oral 716 740 Other: Voiding Method Urinal Urinal # Voids 1 1 - Exam Patient's mental status, speech and language functions are normal. Muscle stren gth is normal. No pronator drift. Visual wright are full. Face is symmetric - Labs CBC & Chem 7: 07/29/20 07:22 07/29/20 07:22 Labs: Abnormal Lab Results - Last 24 Hours (Table) 07/28/20 07/29/20 07/29/20 Range/Units 20:48 06:45 07:22 RBC (4.30-5.90) m/uL Hgb (13.0-17.5) gm/dL Hct (39.0-53.0) % Plt Count (150-450) k/uL Lymphocytes # (1.0-4.8) k/uL Chloride (98-107) mmol/L BUN (9-20) mg/dL Creatinine (0.66-1.25) mg/dL Glucose (74-99) mg/dL POC Glucose (mg/dL) 324 H 217 H (75-99) mg/dL Hemoglobin A1c 8.8 H (4.0-6.0) % HDL Cholesterol (40-60) mg/dL Procalcitonin (0.02-0.09) ng/mL 07/29/20 07/29/20 07/29/20 Range/Units 07:22 07:22 07:22 RBC 3.23 L (4.30-5.90) m/uL Hgb 9.3 L (13.0-17.5) gm/dL Hct 29.0 L (39.0-53.0) % Plt Count 141 L (150-450) k/uL Lymphocytes # 0.8 L (1.0-4.8) k/uL Chloride 110 H (98-107) mmol/L BUN 27 H (9-20) mg/dL Creatinine 1.62 H (0.66-1.25) mg/dL Glucose 173 H (74-99) mg/dL POC Glucose (mg/dL) (75-99) mg/dL Hemoglobin A1c (4.0-6.0) % HDL Cholesterol 26 L (40-60) mg/dL Procalcitonin 0.14 H (0.02-0.09) ng/mL 07/29/20 07/29/20 Range/Units 12:02 16:43 RBC (4.30-5.90) m/uL Hgb (13.0-17.5) gm/dL Hct (39.0-53.0) % Plt Count (150-450) k/uL Lymphocytes # (1.0-4.8) k/uL Chloride (98-107) mmol/L BUN (9-20) mg/dL Creatinine (0.66-1.25) mg/dL Glucose (74-99) mg/dL POC Glucose (mg/dL) 204 H 334 H (75-99) mg/dL Hemoglobin A1c (4.0-6.0) % HDL Cholesterol (40-60) mg/dL Procalcitonin (0.02-0.09) ng/mL Assessment and Plan Assessment: * 74-year-old male with acute episode of confusion, disorientation, lasting for a few hours. Exact cause remains uncertain. No lateralizing symptoms noted by the patient or the family. Rule out TIA, focal seizure. * Right ICA stenosis 70% per CTA report. 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 Plan: * Patient has presented with an episode of transient mental confusion of unclear etiology. EEG revealed intermittent left hemispheric focal slowing, which suggests focal cortical neuronal dysfunction and may suggest underlying structural abnormality. No epileptiform activity was seen. Continue Keppra 500 mg twice a day. * Current event was uncertain if was TIA or some other spell (?seizure, TGA or transient encephalopathy from underlying pulmonary disease). However patient had a more clear TIA with slurred speech and left facial droop documented with recent admission on 07/06/2020, which suggest probable symptomatic right ICA stenosis. Interestingly carotid Doppler showed no stenosis on 07/06/2020. Patient had a previous CTA of head and neck on 12/29/2019, at which time it was 50% stenosis on the right, which has now progressed to 70%. Vascular surgery is on board. Patient probably will benefit from right CEA to prevent recurrent TIA and ischemic strokes. Patient will follow-up with vascular surgery as outpatient. * Patient is on Xarelto 15 mg daily. Agree with adding aspirin 81 mg daily. * Patient's most recent lipid panel shows cholesterol 96, LDL 43, HDL 29 and triglycerides 122. Continue same dose of Lipitor.
--- NOTE | 2020-07-30 10:46 | P.PN ---
Subjective This is a pleasant 74 years old male with multiple medical problems as below. Patient was admitted by ED team because of right-sided weakness and slurred speech, however patient was suddenly this morning he has been weak on the right side chronically for a while due to stroke and he did not have slurred speech also for a while. And that he came to the hospital because of dyspnea for 2 days duration. Associated with cough and the total yellow phlegm but no chest pain. Patient denies motor weakness, no slurred speech, no blurred vision, no new sensory loss. He had normal bowel movements and no urinary complaints. He denies smoking, alcohol or illicit drugs. On admission blood pressure was 186/80, currently 126/66, he has fever of 101.1. He is saturating 94% on 2 L oxygen via nasal cannula. Labs showing no leukocytosis, WBC is 6.3K. hemoglobin 10. Platelets are normal. INR is 1.1. Creatinine 1.7, with baseline Bryn 1.4-2.0. Glucose is 306. Troponin are negative 3 Chest x-ray: No acute process. CT of the brain showing 70% stenosis of the right internal carotid artery and 25% stenosis of the left internal carotid artery CT of the brain showing cerebral atrophy with no acute intracranial abnormality as per radiologist. EKG showing normal sinus rhythm at [address]-T changes. In the emergency room patient is continued on aspirin 81 mg which is home medication. He was started on normal saline at 100 mL per hour Neurologist has been consulted from emergency room. Patient is already on Xarelto as home medication 07/29/2020 Patient today feeling better, his dyspnea is improving, no chest pain. He said he had some stuttering speech and bilateral upper extremity weakness which were equal on both sides and. Of confusion for 1-2 hours prior to coming to the hospital, currently resolved as per patient. He is hemodynamically stable. No more fever today and yesterday so far. I agree with vascular surgery team that patient mostly has asymptomatic asymptomatic RCA stenosis and is estimated 60-65% per surgical team, no need for surgical intervention and follow-up as an outpatients EEG showing no epileptiform discharge and possible structural abnormality, neurology team on the case and will follow-up recommendation. Influenza test was negative. Coronavirus test is pending. C-reactive protein is normal at 9.0, pro-, calcitonin is pending. His sugar was elevated, he told me he was taken Levemir 80 units at bedtime every night. We started the patient on Levemir 40 units twice a day plus insul in sliding scale. Lower normal saline to 50 mL per hour. Continue with Xarelto 07/30/2020 Today patient is awake but has more dyspnea with little cough and yellowish phlegm. Sputum cultures ordered. We'll going to repeat chest x-ray today. Yesterday CT of the abdomen and pelvis showing left side pneumonia suspicious for community-acquired pneumonia versus aspiration pneumonia, swallow evaluation is ordered. Patient informed about his right ICA stenosis about 70% and the need for outpatient follow-up with surgery team for possible endarterectomy and he agrees. Patient also most likely have COPD exacerbation, steroids was added. Continue with breathing treatment Review of System CONSTITUTIONAL: No fever, no malaise, no fatigue. HEENT: No recent visual problems or hearing problems. Denied any sore throat. CARDIOVASCULAR: No orthopnea, PND, no palpitations, no syncope. PULMONARY: No shortness of breath, no cough, no hemoptysis. GASTROINTESTINAL: No diarrhea, no nausea, no vomiting, no abdominal pain. Normoactive bowel sounds. NEUROLOGICAL: No headaches, no weakness, no numbness. HEMATOLOGICAL: Denies any bleeding or petechiae. GENITOURINARY: Denies any burning micturition, frequency, or urgency. MUSCULOSKELETAL/RHEUMATOLOGICAL: Denies any joint pain, swelling, or any muscle pain. ENDOCRINE: Denies any polyuria or polydipsia. Active Medications Generic Name Dose Route Start Last Admin Trade Name Freq PRN Reason Stop Dose Admin Acetaminophen 650 mg 07/28/20 03:29 07/28/20 08:12 Acetaminophen Tab 325 Mg Tab PO 650 mg Q6HR PRN Administration Fever and/ or Pain Hydrocodone Bitart/Acetaminophen 1 each 07/28/20 00:53 Hydrocodone/Apap 7.5-325mg 1 Each Tab PO TID PRN Pain Albuterol/Ipratropium 3 ml 07/28/20 08:00 07/30/20 08:15 Ipratropium-Albuterol 3 Ml Neb INHALATION 3 ml RT-TID NI Administration Amlodipine Besylate 10 mg 07/28/20 21:00 07/29/20 17:28 Amlodipine 10 Mg Tab PO 10 mg HS NI Administration Aspirin 81 mg 07/28/20 09:00 07/30/20 08:58 Aspirin 81 Mg PO 81 mg DAILY NI Administration Atorvastatin Calcium 20 mg 07/28/20 09:00 07/30/20 08:58 Atorvastatin 20 Mg Tab PO 20 mg DAILY NI Administration Ampicillin Sodium/Sulbactam 100 mls @ 200 mls/hr 07/29/20 00:00 07/30/20 06:23 Sodium 3 gm/ Sodium Chloride IVPB 200 mls/hr Q6HR NI Administration Insulin Aspart 0 unit 07/28/20 07:30 07/30/20 06:33 Insulin Aspart (Novolog) 100 Unit/Ml Vial SQ Not Given ACHS [facility] Protocol Insulin Detemir 40 unit 07/29/20 10:15 07/30/20 09:04 Insulin Detemir (Levemir) 100 Unit/Ml Syr SQ 40 unit BID NI Administration Levetiracetam 500 mg 07/28/20 09:00 07/30/20 08:58 Levetiracetam 500 Mg Tab PO 500 mg BID NI Administration Levothyroxine Sodium 25 mcg 07/28/20 06:30 07/30/20 06:23 Levothyroxine 25 Mcg Tab PO 25 mcg DAILY@0630 NI Administration Methylprednisolone Sodium Succinate 60 mg 07/30/20 09:00 07/30/20 08:59 Methylprednisolone Sod Succi 125 Mg/2 Ml Vial IV 60 mg Q6HR NI Administration Metoprolol Tartrate 25 mg 07/28/20 09:00 07/30/20 08:59 Metoprolol Tartrate 25 Mg Tab PO 25 mg BID NI Administration Ondansetron HCl 4 mg 07/28/20 03:28 07/28/20 03:48 Ondansetron 4 Mg/2 Ml Vial IVP 4 mg Q6HR PRN Administration Nausea And Vomiting Pantoprazole Sodium 40 mg 07/28/20 07:30 07/30/20 06:23 Pantoprazole 40 Mg Tablet PO 40 mg DAILY@0730 NI Administration Rivaroxaban 15 mg 07/28/20 09:00 07/30/20 08:58 Rivaroxaban 15 Mg Tab PO 15 mg DAILY NI Administration Objective - Vital Signs Vital signs: Vital Signs Temp 98.1 F 07/30/20 08:00 Pulse 77 07/30/20 08:26 Resp 19 07/30/20 08:00 BP 186/80 07/30/20 08:00 Pulse Ox 96 07/30/20 08:00 Intake & Output 07/29/20 07/30/20 07/30/20 18:59 06:59 18:59 Intake Total 740 480 Output Total 600 Balance 740 -600 480 Weight 85.2 kg Intake: Oral 740 480 Output: Urine 600 Other: Voiding Method Urinal Urinal # Voids 1 1 - Exam GENERAL: The patient is alert and oriented x3, not in any acute distress. Well developed, well nourished. HEENT: Pupils are round and equally reacting to light. EOMI. No scleral icterus. No conjunctival pallor. Normocephalic, atraumatic. No pharyngeal erythema. No thyromegaly. CARDIOVASCULAR: S1 and S2 present. No murmurs, rubs, or gallops. PULMONARY: Chest is clear to auscultation, no wheezing or crackles. ABDOMEN: Soft, nontender, nondistended, normoactive bowel sounds. No palpable organomegaly. MUSCULOSKELETAL: No joint swelling or deformity. EXTREMITIES: No cyanosis, clubbing, or pedal edema. NEUROLOGICAL: Gross neurological examination did not reveal any focal deficits. SKIN: No rashes. no petechiae. - Labs CBC & Chem 7: 07/29/20 07:22 07/29/20 07:22 Labs: Abnormal Lab Results - Last 24 Hours (Table) 07/29/20 07/29/20 07/29/20 Range/Units 07:22 07:22 12:02 POC Glucose (mg/dL) 204 H (75-99) mg/dL Hemoglobin A1c 8.8 H (4.0-6.0) % Procalcitonin 0.14 H (0.02-0.09) ng/mL 07/29/20 07/29/20 07/30/20 Range/Units 16:43 20:24 06:08 POC Glucose (mg/dL) 334 H 298 H 54 L (75-99) mg/dL Hemoglobin A1c (4.0-6.0) % Procalcitonin (0.02-0.09) ng/mL 07/30/20 07/30/20 Range/Units 06:27 06:42 POC Glucose (mg/dL) 62 L 74 L (75-99) mg/dL Hemoglobin A1c (4.0-6.0) % Procalcitonin (0.02-0.09) ng/mL Assessment and Plan Assessment: Left pneumonia suspicious for community-acquired pneumonia, rule out aspiration pneumonia Acute COPD exacerbation 70% right internal carotid artery stenosis, no need for surgical intervention Periods of confusion and stuttered speech. Neurology consulted Diabetes mellitus Hypertension Hyperlipidemia History of coronary artery disease COPD, no acute exacerbation History of CVA/TIA Osteoarthritis Seizure disorder Benign prostatic hypertrophy History of left lung cancer status post lumpectomy and chemotherapy in 2018. Chronic cervical and low back pain Chronic kidney disease stage III Plan: This is a pleasant 74 years old male who presents with acute stroke.Follow-up recommendation by neurologist. Follow-up recommendation by infectious disease and vascular surgery team. No need for surgery now. Add Levemir monitor sugar. continue with unasyn, continue with steroids. Labs and medication were reviewed.. Continue same treatment. Continue with symptomatic treatment. Resume home medication. Monitor lytes and vitals. DVT and GI prophylaxis. Further recommendations depends on the clinical course of the patient DVT prophylaxis Xarelto GI Prophylaxis: Pepcid PT/OT: Pending Prognosis is guarded
--- NOTE | 2020-07-30 11:49 | XR ---
EXAMINATION TYPE: XR chest 1V DATE OF EXAM: 07/30/2020 COMPARISON: Prior chest x-ray dated 07/28/2020 HISTORY: Shortness of breath, follow-up TECHNIQUE: Single frontal view of the chest is obtained. FINDINGS: Aorta is dense. No evident airspace disease, pneumothorax, or pleural effusion. Cardiac me diastinal silhouette, pulmonary vascular and jacob are stable. IMPRESSION: No acute process.
--- NOTE | 2020-07-30 11:53 | P.PN ---
Subjective Progress Note Date: 07/30/20 Principal diagnosis: Carotid stenosis The patient was seen and examined at the bedside. The patient denies any acute changes through the night. He denies any slurring of speech, extremity weakness, or other focal deficits. At this time he reports no shortness of breath or chest pain. He was afebrile through the night. Maintain IV antibiotics for pneumonia. Objective - Vital Signs Vital signs: Vital Signs Temp 98.1 F 07/30/20 08:00 Pulse 77 07/30/20 08:26 Resp 19 07/30/20 08:00 BP 186/80 07/30/20 08:00 Pulse Ox 96 07/30/20 08:00 Intake & Output 07/29/20 07/30/20 07/30/20 18:59 06:59 18:59 Intake Total 740 480 Output Total 600 Balance 740 -600 480 Weight 85.2 kg Intake: Oral 740 480 Output: Urine 600 Other: Voiding Method Urinal # Voids 1 1 - Exam General appearance: The patient is alert, oriented, in no acute distress. HET: Head is normocephalic and atraumatic. Pupils are equal and reactive. Neck: Supple without lymphadenopathy. Trachea midline. No bruit appreciated bilaterally. Heart: S1 S2. Regular rate and rhythm. Lungs: BilLateral wheezes Abdomen: Soft, nontender, nondistended with bowel sounds. Extremities: Normal skin color and turgor. No cyanosis, rash, ulceration, clubbing, or edema. Radial and pedal pulses are 2/4 bilaterally. Neurological: No focal deficits noted. Strength and sensation are grossly intact. Some evidence of minimal right-sided weakness compared to left. Speech is fluent. He has facial symmetry, and tongue protrudes midline. He is alert and oriented 3. - Labs CBC & Chem 7: 07/29/20 07:22 07/29/20 07:22 Labs: Abnormal Lab Results - Last 24 Hours (Table) 07/29/20 07/29/20 07/29/20 Range/Units 07:22 07:22 12:02 POC Glucose (mg/dL) 204 H (75-99) mg/dL Hemoglobin A1c 8.8 H (4.0-6.0) % Procalcitonin 0.14 H (0.02-0.09) ng/mL 07/29/20 07/29/2007/30/20 Range/Units 16:43 20:24 06:08 POC Glucose (mg/dL) 334 H 298 H 54 L (75-99) mg/dL Hemoglobin A1c (4.0-6.0) % Procalcitonin (0.02-0.09) ng/mL 07/30/20 07/30/20 Range/Units 06:27 06:42 POC Glucose (mg/dL) 62 L 74 L (75-99) mg/dL Hemoglobin A1c (4.0-6.0) % Procalcitonin (0.02-0.09) ng/mL Assessment and Plan Assessment: 1. asymptomatic right ICA, 70% right internal carotid stenosis on CTA chest, carotid ultrasound completed 07/06/20 showing 30% stenosis bilateral 2. Slurred speech 3. right sided weakness 4. Diabetes mellitus 5. Hypertension 6. TIA/CVA with right-sided residual weakness 7. Hyperlipidemia 8. Coronary artery disease 9. COPD Plan: Continue with Xarelto, aspirin, and atorvastatin. Neurology consult completed, which states patient may benefit from a right carotid endarterectomy to prevent recurrent TIA and ischemic strokes. CT angiogram and carotid ultrasound reviewed with discordant findings, Right ICA more likely 60-65 percent stenosis. Previous admission MRI reviewed showing age related atrophy and chronic small vessel ischemia. No subacute infarct was evident. Discussed findings and recommendations from neurology with Dr. Guerrero. He agrees to continue outpatient workup for right ICA stenosis. Patient to follow-up with Dr. Castro in 1-2 weeks. Further recommendations to follow. The above dictated assessment and findings were discussed with Dr. Guerrero. The impression and plan of care have been directed as dictated.
[2020-07-30 11:55] LABS: Glucose,Whole Blood 173 mg/dL (75-99)
--- NOTE | 2020-07-30 14:26 | PN ---
PROGRESS NOTE DATE OF SERVICE: 07/30/2020 REASON FOR FOLLOWUP: Left lower lobe pneumonia. INTERVAL HISTORY: The patient is currently afebrile. The patient is breathing more comfortably. Patient denies having any chest pain. No shortness of breath. Minimal cough. No nausea, no vomiting. No abdominal pain or diarrhea. PHYSICAL EXAMINATION: Blood pressure 186/80 with a pulse of 78, temperature 98.1, he is 96% on room air. General description is an elderly male, lying in bed in no distress. RESPIRATORY SYSTEM: Unlabored breathing, decreased breath sounds at the base, no wheeze. HEART: S1, S2. Regular rate and rhythm. ABDOMEN: Soft, no tenderness. LABS: No new labs have been obtained today. DIAGNOSTIC IMPRESSION AND PLAN: Patient with fever with concern for possible left lower lobe pneumonia with a question of possible pneumonia versus aspiration. Chest x-ray was negative this morning; however, has been seen on the CT. Will recommend to keep the patient on Unasyn with the patient's fever has responded. Will finish therapy with oral Augmentin. Continue supportive care. MMODL / IJN: [id number] /
[2020-07-30 16:49] LABS: Glucose,Whole Blood 232 mg/dL (75-99)
--- NOTE | 2020-07-30 19:30 | P.PN ---
Subjective Progress Note Date: 07/30/20 Patient is feeling fine, offers no new complaints. No TIAs or mental confusion. blood pressure is better controlled. No headache. patient states he is walking well. Objective - Vital Signs Vital signs: Vital Signs Temp 98.1 F 07/30/20 08:00 Pulse 84 07/30/20 16:00 Resp 20 07/30/20 16:00 BP 153/83 07/30/20 16:00 Pulse Ox 95 07/30/20 16:00 Intake & Output 07/30/20 07/30/20 07/31/20 06:59 18:59 06:59 Intake Total 720 Output Total 600 200 Balance -600 520 Weight 85.2 kg Intake: Oral 720 Output: Urine 600 200 Other: Voiding Method Urinal Urinal # Voids 1 - Exam Patient's mental status, speech and language functions are normal. Muscle strength is normal. No pronator drift. Visual wright are full. Face is symmet char - Labs CBC & Chem 7: 07/29/20 07:22 07/29/20 07:22 Labs: Abnormal Lab Results - Last 24 Hours (Table) 07/29/20 07/30/20 07/30/20 Range/Units 20:24 06:08 06:27 POC Glucose (mg/dL) 298 H 54 L 62 L (75-99) mg/dL 07/30/20 07/30/20 07/30/20 Range/Units 06:42 11:53 16:48 POC Glucose (mg/dL) 74 L 173 H 232 H (75-99) mg/dL Assessment and Plan Assessment: * 74-year-old male with acute episode of confusion, disorientation, lasting for a few hours. Exact cause remains uncertain. No lateralizing symptoms noted by the patient or the family. Rule out TIA, focal seizure. * Right ICA stenosis 70% per CTA report. 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 Plan: * Patient has presented with an episode of transient mental confusion of unclear etiology. EEG revealed intermittent left hemispheric focal slowing, which suggests focal cortical neuronal dysfunction and may suggest underlying structural abnormality. No epileptiform activity was seen. Continue Keppra 500 mg twice a day. * Current event was uncertain if was TIA or some other spell (?seizure, TGA or transient encephalopathy from underlying pulmonary disease). However patient had a more clear TIA with slurred speech and left facial droop documented with recent admission on 07/06/2020, which suggest probable symptomatic right ICA stenosis. Interestingly carotid Doppler showed no stenosis on 07/06/2020. Patient had a previous CTA of head and neck on 12/29/2019, at which time it was 50% stenosis on the right, which has now progressed to 70%. Vascular surgery is on board. Patient probably will benefit from right CEA to prevent recurrent TIA and ischemic strokes. Patient will follow-up with vascular surgery as outpatient. * Patient is on Xarelto 15 mg daily. Agree with adding aspirin 81 mg daily. * Patient's most recent lipid panel shows cholesterol 96, LDL 43, HDL 29 and triglycerides 122. Continue same dose of Lipitor. * Hemoglobin A1c 8.8. Suggest optimize and of diabetes to target A1c <7.0. * Possible transfer to [facility] in the am.
[2020-07-30] MEDS: amLODIPine 10 MG TAB PO SCH (19:56)
[2020-07-30 22:46] LABS: Glucose,Whole Blood 409 mg/dL (75-99)
[2020-07-30] MEDS: methylPREDNISolone SOD SUCCI 40 MG/ML 1 ML VIAL IV SCH (22:54)
[2020-07-31] MEDS: AMPICILLIN-SULBACTAM 3 GM in SODIUM CHLORIDE 0.9% 100 ML IVPB SCH ×2 (06:25→12:08)
[2020-07-31] MEDS: PANTOPRAZOLE 40 MG TABLET PO SCH (06:25)
[2020-07-31] MEDS: LEVOTHYROXINE 25 MCG TAB PO SCH (06:25)
[2020-07-31 06:36] LABS: Glucose,Whole Blood 382 mg/dL (75-99)
[2020-07-31] MEDS: INSULIN ASPART (NovoLOG) 100 UNIT/ML VIAL SQ SCH ×2 (06:39→12:08)
[2020-07-31] MEDS: IPRATROPIUM-ALBUTEROL 3 ML NEB INHALATION SCH ×2 (07:13→11:05)
[2020-07-31 08:02] LABS: Calcium 8.7 mg/dL (8.4-10.2); Magnesium 1.1 mg/dL (1.6-2.3); Potassium 4.8 mmol/L (3.5-5.1)
[2020-07-31] MEDS: methylPREDNISolone SOD SUCCI 40 MG/ML 1 ML VIAL IV SCH (08:14)
[2020-07-31] MEDS: INSULIN DETEMIR (LEVEMIR) 100 UNIT/ML SYR SQ SCH (08:14)
[2020-07-31] MEDS: ASPIRIN 81 MG PO SCH (08:15)
[2020-07-31] MEDS: METOPROLOL TARTRATE 25 MG TAB PO SCH (08:15)
[2020-07-31] MEDS: levETIRAcetam 500 MG TAB PO SCH (08:15)
[2020-07-31] MEDS: ATORVASTATIN 20 MG TAB PO SCH (08:15)
[2020-07-31] MEDS: RIVAROXABAN 15 MG TAB PO SCH (08:42)
--- NOTE | 2020-07-31 09:47 | P.DS ---
Providers Date of admission: 07/28/20 00:53 Attending physician: Lawson Kent Consults: 07/28/20 00:52 Consult Physician Routine Consulting Provider: Carl Riley Consult Reason/Comments: Ischemic stroke vs TIA Do you want consulting provider notified?: Yes 07/28/20 10:34 Consult Physician Urgent Consulting Provider: Lyubov Castro Consult Reason/Comments: right ICA satensis Do you want consulting provider notified?: Yes Consult Physician Urgent Consulting Provider: Chris Rodriguez Consult Reason/Comments: fever Do you want consulting provider notified?: Yes Primary care physician: [facility] Course: Diagnoses: Left lower lobe pneumonia, mostly community acquired pneumonia. With mild acute COPD exacerbation 70% right internal carotid artery stenosis, no need for surgical intervention , follow-up as an outpatient with vascular surgery Periods of confusion and stuttered speech. Neurology consulted for possible TIA, however it felt less likely and most patient had delirium secondary to pneumonia Hypomagnesemia Diabetes mellitus Hypertension Hyperlipidemia History of coronary artery disease COPD, no acute exacerbation History of CVA/TIA Osteoarthritis Seizure disorder Benign prostatic hypertrophy History of left lung cancer status post lumpectomy and chemotherapy in 2018. Chronic cervical and low back pain Chronic kidney disease stage III Hospital course: This is a pleasant 74 years old male with multiple medical problems as below. And that he came to the hospital because of dyspnea for 2 days duration. Associated with cough and fever. Patient was treated with Unasyn showed significant improvement in his metabolic encephalopathy, his fever improved and his dyspnea subsided. Infectious disease were following the patient closely.CT of the abdomen and pelvis showed mild patchy airspace opacity of the left lower lobe may represent developing pneumonia with no acute intra-abdominal process. Patient passed a swallow evaluation. Patient also was evaluated by neurologist for suspected TIA, as patient has short period of confusion for about one hour, however workup was and unremarkable. Patient continued on aspirin and Xarelto Patient returned close to his baseline, although the day of discharge he denies any new symptoms and he feels he can be discharged. Physical therapy recommended ECF for subacute rehab Patient was cleared for discharge by all consultants including infectious disease, neurologist patient will be discharged with antibiotics as per infectious disease and they recommended Augmentin upon discharge . Also magnesium was low at 1.1 on the day of discharge which is been replaced and started on magnesium oxide X7 days Problems and management plan were discussed with the patient and he verbalized understanding and acceptance Patient was found stable and can be discharged home however he needs follow-up as an outpatient. Patient was instructed to follow up with PCP within one week and patient agrees. Patient already has an appointment with Dr. Riley on 08/06 at 1:30 PM as he informed me. Also patient was instructed to follow up with Dr. Castro from vascular surgery for possible right endarterectomy, patient says he will call and make an appointment within 1 week. Patient also was instructed to follow up with a neurologist, we give him [address] Garcia to call and make Appointment within 2 weeks and he agrees Gen: patient is a AAOx3, no distress CVS: S1-S2, RRR, no murmur Lungs: B/L CTA, no wheezing Abdomen: soft, no distention, no tenderness, positive bowel sounds Extremity: no leg edema or induration Time spent more than 35 minutes Patient Condition at Discharge: Poor Plan - Discharge Summary Discharge Rx Participant: No New Discharge Prescriptions: New Amoxicillin/Potassium Clav [Augmentin 875-125 Tablet] 1 tab PO Q12HR 7 Days #14 tab Magnesium Oxide [Mag-Ox] 400 mg PO BID 7 Days #14 tab INSULIN ASPART (NovoLOG) [NovoLOG (formulary)] 0 unit SQ ACHS vial Acetaminophen Tab [Tylenol] 650 mg PO Q6HR PRN tab PRN Reason: Fever And/ Or Pain predniSONE 10 mg PO DIRECTED #30 tab Discontinued HYDROcodone/APAP 7.5-325MG [[place] 7.5-325] 1 tab PO TID PRN PRN Reason: Pain No Action Simvastatin [Zocor] 40 mg PO DAILY amLODIPine [Norvasc] 10 mg PO HS levETIRAcetam [Keppra] 500 mg PO BID Rivaroxaban [Xarelto] 15 mg PO DAILY #30 tab Metoprolol Tartrate 25 mg PO BID #60 tab INSULIN ASPART (NovoLOG) [NovoLOG (formulary)] 10 unit SQ AC-TID #1 vial Ipratropium-Albuterol Nebulize [Duoneb 0.5 mg-3 mg/3 ml Soln] 3 ml INHALATION RT-TID #100 neb Omeprazole 20 mg PO DAILY Insulin Detemir [Levemir Flextouch] 80 units SQ HS Aspirin 81 mg PO DAILY 30 Days #30 chew Levothyroxine Sodium [Synthroid] 25 mcg PO DAILY@629 30 Days #30 tab Discharge Medication List Simvastatin [Zocor] 40 mg PO DAILY 07/30/19 [History] amLODIPine [Norvasc] 10 mg PO HS 07/30/19 [History] levETIRAcetam [Keppra] 500 mg PO BID 07/30/19 [History] Metoprolol Tartrate 25 mg PO BID #60 tab 09/10/19 [Rx] Rivaroxaban [Xarelto] 15 mg PO DAILY #30 tab 09/10/19 [Rx] INSULIN ASPART (NovoLOG) [NovoLOG (formulary)] 10 unit SQ AC-TID #1 vial 10/25/19 [Rx] Ipratropium-Albuterol Nebulize [Duoneb 0.5 mg-3 mg/3 ml Soln] 3 ml INHALATION RT-TID #100 neb 12/30/19 [Rx] Insulin Detemir [Levemir Flextouch] 80 units SQ HS 07/06/20 [History] Omeprazole 20 mg PO DAILY 07/06/20 [History] Aspirin 81 mg PO DAILY 30 Days #30 chew 07/08/20 [Rx] Levothyroxine Sodium [Synthroid] 25 mcg PO DAILY@30 30 Days #30 tab 07/08/20 [Rx] Acetaminophen Tab [Tylenol] 650 mg PO Q6HR PRN tab 07/31/20 [Rx] Amoxicillin/Potassium Clav [Augmentin 875-125 Tablet] 1 tab PO Q12HR 7 Days #14 tab 07/31/20 [Rx] INSULIN ASPART (NovoLOG) [NovoLOG (formulary)] 0 unit SQ ACHS vial 07/31/20 [Rx] Magnesium Oxide [Mag-Ox] 400 mg PO BID 7 Days #14 tab 07/31/20 [Rx] predniSONE 10 mg PO DIRECTED #30 tab 07/31/20 [Rx] Follow up Appointment(s)/Referral(s): Renzo Boyer MD [Primary Care Provider] - 1 Week Shaji Kenyon MD [REFERRING] - 2 Weeks (neurologist ) Lyubov Castro DO [STAFF PHYSICIAN] - 1 Week Damian Ellis DO [STAFF PHYSICIAN] - 2 Weeks (neurologist ) Activity/Diet/Wound Care/Special Instructions: Heart healthy, low carbohydrate diet Activity is limited till you see your doctor Discharge Disposition: TRANSFER TO SNF/ECF
[2020-07-31 09:50] VITALS: RESP 18
[2020-07-31] MEDS: MAGNESIUM SULFATE-D5W PMX 1 GM in DEXTROSE/WATER 1 100ML.BAG IVPB SCH ×2 (09:59→11:00)
[2020-07-31 11:49] LABS: Glucose,Whole Blood 400 mg/dL (75-99)
[2020-07-31 12:56] VITALS: BP 153/82; PULSE 82; TEMP 97.8
--- NOTE | 2020-07-31 13:35 | PN ---
PROGRESS NOTE DATE OF SERVICE: 07/31/2020 REASON FOR FOLLOWUP: Pneumonia. INTERVAL HISTORY: The patient is currently afebrile. The patient is breathing more comfortably. He did have a cough but not bringing up any sputum. No chest pain. No nausea, no vomiting. No abdominal pain or diarrhea. PHYSICAL EXAMINATION: Blood pressure 152/80 with a pulse of 80, temperature of 98.1. He is 95% on room air. General description is an elderly male lying in bed in no distress. Respiratory system: Unlabored breathing, decreased breath sounds in the bases. No wheeze. Heart S1, S2. Regular rate and rhythm. Abdomen soft, no tenderness. LABS: BUN of 26, creatinine 1.61. Blood culture not done and there was no sputum. DIAGNOSTIC IMPRESSION AND PLAN: Patient with fever with concern for left lower lobe pneumonia, possible community- acquired versus aspiration, overall improvement on Unasyn. He will finish therapy with oral Augmentin for a week and close outpatient followup. MMODL / IJN: [id number] /
[2020-08-01] MEDS ORDERED: MAGNESIUM OXIDE 400 MG TAB PO SCH (09:00)
[2020-08-01] MEDS ORDERED: predniSONE 10 MG TAB PO SCH (09:00)
== END 2020-07-31 14:07 | DRG 193 ==
LOC: EC 23:24 → 3SCARD 07-28 00:53
PROVIDERS: ADMIT Hospitalist; ATTEND Hospitalist
DX: J18.9 Pneumonia, unspecified organism (principal); G93.41 Metabolic encephalopathy; I69.351 Hemiplegia and hemiparesis following cerebral infarction affecting right dominant side; J44.0 Chronic obstructive pulmonary disease with (acute) lower respiratory infection; J44.1 Chronic obstructive pulmonary disease with (acute) exacerbation; Z20.828 Contact with and (suspected) exposure to other viral communicable diseases; E11.22 Type 2 diabetes mellitus with diabetic chronic kidney disease; N18.3 Chronic kidney disease, stage 3 (moderate); Z79.4 Long term (current) use of insulin; G40.909 Epilepsy, unspecified, not intractable, without status epilepticus; R40.2362 Coma scale, best motor response, obeys commands, at arrival to emergency department; R40.2142 Coma scale, eyes open, spontaneous, at arrival to emergency department; R40.2242 Coma scale, best verbal response, confused conversation, at arrival to emergency department; I25.10 Atherosclerotic heart disease of native coronary artery without angina pectoris; I12.9 Hypertensive chronic kidney disease with stage 1 through stage 4 chronic kidney disease, or unspecified chronic kidney disease; M19.90 Unspecified osteoarthritis, unspecified site; E78.5 Hyperlipidemia, unspecified; N40.0 Benign prostatic hyperplasia without lower urinary tract symptoms; F41.9 Anxiety disorder, unspecified; F32.9 Major depressive disorder, single episode, unspecified; I65.23 Occlusion and stenosis of bilateral carotid arteries; R47.81 Slurred speech; E83.42 Hypomagnesemia; G89.29 Other chronic pain; R29.810 Facial weakness; I25.2 Old myocardial infarction; Z79.899 Other long term (current) drug therapy; Z79.01 Long term (current) use of anticoagulants; Z79.82 Long term (current) use of aspirin; Z79.890 Hormone replacement therapy; Z87.01 Personal history of pneumonia (recurrent); Z85.118 Personal history of other malignant neoplasm of bronchus and lung; Z90.2 Acquired absence of lung [part of]; Z92.21 Personal history of antineoplastic chemotherapy; Z86.718 Personal history of other venous thrombosis and embolism; Z87.891 Personal history of nicotine dependence; Z90.49 Acquired absence of other specified parts of digestive tract; Z98.42 Cataract extraction status, left eye; Z98.41 Cataract extraction status, right eye; Z83.3 Family history of diabetes mellitus
CPT/HCPCS: 36415; 70450; 70496; 70498; 71045; 74176; 80048; 80053; 80061; 81001; 83036; 83735; 84145; 84484; 85025; 85610; 85730; 86140; 87502; 93005; 94640; 94760; 95816; 99285

== ENCOUNTER → 2020-09-10 | Outpatient (CLI) | payer MEDICARE, OTHER ==
--- NOTE | 2020-09-13 00:53 | CT ---
EXAMINATION TYPE: CT ChestAbdPelvis w con DATE OF EXAM: 09/10/2020 COMPARISON: CT abdomen pelvis 07/29/2020. CT chest abdomen pelvis 06/18/2020 HISTORY: Colon Cancer, follow up CT DLP: 1816.4 mGycm Automated exposure control for dose reduction was used. CONTRAST: CT scan of the chest, abdomen and pelvis is performed with Oral Contrast and with IV Contrast, patien t injected with 80 mL of Isovue 300. FINDINGS: LUNGS: Redemonstrated 1.1 cm nodule of the right upper lobe (4:24) unchanged from 06/18/2020. Scattere d tree-in-bud opacities redemonstrated bilaterally. 3 mm right lower lobe nodule (4:45), 3 mm pulmona ry nodule within the left lower lobe (4:27), and 4 mm pulmonary nodules of the left upper lobe (4:35) are unchanged. No pleural effusion. No pneumothorax. The tracheobronchial tree is patent. MEDIASTINUM/SOFT TISSUES: No axillary, hilar, or mediastinal lymphadenopathy greater than 1 cm. Cardi ac size is normal. Calcified coronary artery disease. No pericardial effusion. No thoracic aortic ane urysm. LIVER: Normal. BILIARY SYSTEM: Status post cholecystectomy. No intrahepatic or extrahepatic biliary ductal dilatatio n. PANCREAS: Fatty atrophy. SPLEEN: Normal. ADRENALS: Normal. KIDNEYS: No hydronephrosis. Left renal cyst and too small to characterize hypodense lesion. BOWEL: Small hiatal hernia. No obstruction or thickening. Redemonstrated duodenal diverticulum of th e third portion. Colonic diverticulosis. No acute diverticulitis. Normal appendix. PERITONEUM: No pneumoperitoneum. No free fluid. LYMPH NODES: No lymphadenopathy. PELVIS: Normal. VASCULATURE: No abdominal aortic aneurysm. MUSCULOSKELETAL: No aggressive osseous destructive lesions. IMPRESSION: 1. Redemonstrated scattered opacities and nodules of the bilateral lungs. No new or increasing right nodule. 2. No metastatic disease of the abdomen or pelvis
== END | disposition home or self-care (01) ==
LOC: RADCTMAIN 09:24
PROVIDERS: ATTEND Internal Medicine Hematology & Oncology
DX: C34.12 Malignant neoplasm of upper lobe, left bronchus or lung (principal); R91.8 Other nonspecific abnormal finding of lung field
CPT/HCPCS: 82565; 84520; 71260; 74177; 36415; Q9967

== ENCOUNTER 2021-01-12 10:02 | Inpatient (IN) | payer MEDICARE, OTHER ==
[2021-01-12 10:08] LABS: Glucose,Whole Blood 63 mg/dL (75-99)
[2021-01-12] MEDS ORDERED: DEXTROSE 50% SYRINGE 50 ML IVP STA (10:17)
[2021-01-12 10:32] LABS: Basophils % (A) 0 %; Eosinophils # (A) 0.5 k/uL (0-0.7); Eosinophils % (A) 7 %; HCT 32.5 % (39.0-53.0); HGB 10.9 gm/dL (13.0-17.5); Lymphocytes % (A) 14 %; MCHC 33.6 g/dL (31.0-37.0); MCV 89.3 fL (80.0-100.0); Monocytes # (A) 0.4 k/uL (0-1.0); Monocytes % (A) 6 %; Neutrophils # (A) 5.1 k/uL (1.3-7.7); Neutrophils % (A) 72 %; Platelet Count 182 k/uL (150-450); RBC 3.64 m/uL (4.30-5.90); RDW 14.2 % (11.5-15.5); WBC 7.1 k/uL (3.8-10.6)
--- NOTE | 2021-01-12 10:35 | ED ---
General Adult HPI - General Chief complaint: Neuro Symptoms/Deficit Stated complaint: possible stroke Time Seen by Provider: 01/12/21 10:05 Source: EMS Mode of arrival: EMS Limitations: no limitations - History of Present Illness Initial comments: Patient is a 75-year-old male with multiple medical conditions to include lung cancer on active chemo, COPD, CVA, coronary disease who presents to the emergency department with reported strokelike symptoms. Patient went out to eat breakfast. States that he had sudden onset around 9:30 of left-sided weakness, speech difficulties and acute visual disturbance. EMS was called. NIH performed by them was negative. Patient does have previous history of TIA. He is on Xarelto. Denies any missed doses. Patient is a diabetic. States he took his medications last night however does not take insulin in the morning. Patient has not ate anything. Denies any recent fevers or chills. No chest pain or shortness of breath. No other alleviating, precipitating or modifying factors - Related Data Home Medications Medication Instructions Recorded Confirmed Simvastatin [Zocor] 40 mg PO DAILY 07/30/19 01/12/21 amLODIPine [Norvasc] 10 mg PO HS 07/30/19 01/12/21 levETIRAcetam [Keppra] 500 mg PO BID 07/30/19 01/12/21 Insulin Detemir [Levemir Flextouch] 75 units SQ HS 07/06/20 01/12/21 Omeprazole 20 mg PO DAILY 07/06/20 01/12/21 HYDROcodone/APAP 5-325MG [[place] 1 tab PO BID PRN 01/12/21 01/12/21 5-325] Ipratropium-Albuterol Nebulize 3 ml INHALATION RT-TID PRN 01/12/21 01/12/21 [Duoneb 0.5 mg-3 mg/3 ml Soln] Rivaroxaban [Xarelto] 15 mg PO HS 01/12/21 01/12/21 Solifenacin Succinate [Vesicare] 10 mg PO DAILY 01/12/21 01/12/21 Previous Rx's Medication Instructions Recorded Metoprolol Tartrate 25 mg PO BID #60 tab 09/10/19 Levothyroxine Sodium [Synthroid] 25 mcg PO DAILY@0630 30 Days #30 07/08/20 tab Aspirin 162 mg PO DAILY 30 Days #30 chew 01/14/21 methylPREDNISolone Dose Pack 4 mg PO DIRECTED #21 package 01/14/21 [Medrol Dose Pack] Allergies Allergy/AdvReac Type Severity Reaction Status Date / Time No Known Allergies Allergy Verified 01/12/21 11:53 Review of Systems ROS Statement: Those systems with pertinent positive or pertinent negative responses have been documented in the HPI. ROS Other: All systems not noted in ROS Statement are negative. Past Medical History Past Medical History: Coronary Artery Disease (CAD), Cancer, COPD, CVA/TIA, Diabetes Mellitus, Deep Vein Thrombosis (DVT), Hyperlipidemia, Hypertension, Myocardial Infarction (ND), Osteoarthritis (OA), Pneumonia, Prostate Disorder, Seizure Disorder Additional Past Medical History / Comment(s): 07/2018 L lung cancer with left upper lobectomy/IV chemo but pt states he quit taking chemo early then diagnosed with R lower lobe cancer in August 2019 and had wedge resection and immunotherapy every 3 weeks, bronchitis, TIA and seizure after bronchoscopy in 2017, DVT L leg, IDDM type II, chronic cervical/back pain, diabetes mellitus, occasional bilateral ankle edema, BPH, chronic stage III kidney disease Last Myocardial Infarction Date:: 05/24/12 History of Any Multi-Drug Resistant Organisms: None Reported Past Surgical History: Back Surgery, Cholecystectomy, Heart Catheterization, Hernia Repair, Tonsillectomy Additional Past Surgical History / Comment(s): 2017 Bronchoscopy with bx, 2017 L upper lobectomy at [facility], August 2019 R lower lung wedge resection, low back surgery, 2011 cardiac cath-treat medically, umbilical hernia repair, bilateral cataract removals Past Anesthesia/Blood Transfusion Reactions: Previous Problems w/ Anesthesia Additional Past Anesthesia/Blood Transfusion Reaction / Comment(s): Seizure and mini stroke following lung biopsy Past Psychological History: Anxiety, Depression Smoking Status: Never smoker Past Alcohol Use History: None Reported Past Drug Use History: None Reported - Past Family History Mother Family Medical History: No Reported History Additional Family Medical History / Comment(s): Mother was healthy Father Family Medical History: Diabetes Mellitus Additional Family Medical History / Comment(s): Father of diabetes at the age of 83 yrs. General Exam Limitations: no limitations General appearance: alert, in no apparent distress Head exam: Present: atraumatic, normocephalic, normal inspection Eye exam: Present: normal appearance, PERRL, EOMI. Absent: scleral icterus, conjunctival injection, periorbital swelling ENT exam: Present: normal exam, mucous membranes moist Neck exam: Present: normal inspection. Absent: tenderness, meningismus, lymphadenopathy Respiratory exam: Present: normal lung sounds bilaterally. Absent: respiratory distress, wheezes, rales, rhonchi, stridor Cardiovascular Exam: Present: regular rate, normal rhythm, normal heart sounds. Absent: systolic murmur, diastolic murmur, rubs, gallop, clicks GI/Abdominal exam: Present: soft, normal bowel sounds. Absent: distended, tenderness, guarding, rebound, rigid Extremities exam: Present: normal inspection, full ROM, normal capillary refill. Absent: tenderness, pedal edema, joint swelling, calf tenderness Back exam: Present: normal inspection Neurological exam: Present: alert, oriented X3, CN II-XII intact Psychiatric exam: Present: normal affect, normal mood Skin exam: Present: warm, dry, intact, normal color. Absent: rash Course Vital Signs 01/12/21 01/12/21 01/12/21 10:03 11:05 11:49 Temperature 98.1 F Pulse Rate 68 62 63 Pulse Rate [ Pulse Oximetery ] Respiratory 18 18 18 Rate Blood Pressure 152/83 169/88 161/79 Blood Pressure [Right Arm] O2 Sat by Pulse 92 L 98 96 Oximetry 01/12/21 01/12/21 01/12/21 12:55 13:09 14:33 Temperature 97.6 F 98.1 F 98.0 F Pulse Rate 67 64 Pulse Rate [ 77 Pulse Oximetery ] Respiratory 16 18 16 Rate Blood Pressure 149/84 150/72 Blood Pressure 163/66 [Right Arm] O2 Sat by Pulse 98 96 99 Oximetry 01/12/21 01/12/21 01/12/21 18:48 20:17 20:32 Temperature 98.5 F Pulse Rate 79 72 72 Pulse Rate [ Pulse Oximetery ] Respiratory 18 Rate Blood Pressure 156/83 Blood Pressure [Right Arm] O2 Sat by Pulse 97 Oximetry - Reevaluation(s) Reevaluation #1: NIH upon arrival orginally negative. NIH obtained by RN demonstrates vision change to the right hemisphere with inability to read right side of page. Code stroke activated 01/12/21 10:33 Reevaluation #2: NIH repeated and negative at this time 01/12/21 1045 Reevaluation #3: Spoke with Dr. Mcdowell - not a TPA candidate as symptoms have fully resolved, on anticoagulation 01/12/21 1103 EKG Findings - EKG Comments: EKG Findings:: EKG demonstrates a sinus rhythm with a ventricular rate of 68. [place] interval 180. QRS 84. QTC of 433. No acute ST segment elevations or depressions Medical Decision Making - Medical Decision Making Upon arrival patient is placed into room 4. A thorough history and physical exam was performed. NIH stroke scale and it is performed by myself is originally negative. I did leave the room and laboratory studies as well as imaging is ordered. The patient does report to an acute visual disturbance. NIH is repeated by nursing staff and is found to be 2 as the patient does have some terry-neglect with his vision. At this time culture is activated and the patient was taken over for CT. I reviewed the patient's labs. Potassium 5.4. Glucose is only 69 and therefore the patient is given a half amp of dextrose. Patient is sent for CT of his brain as well as CT angiography. CT of his brain demonstrates no acute hemorrhage or midline shift. Cerebral atrophy and chronic small vessel ischemia. CT angios of the neck demonstrates 50% stenosis of the right carotid with moderate to severe plaquing of the left carotid. NIH is repeated and the patient does have resolution in his symptoms. I did speak with Dr. Mcdowell to about the patient at 1103 and as the patient has completely resolved he does not recommend TPA at this time. Patient was given a full dose aspirin. Results are discussed with the patient. Did recommend admission. Spoke with Dr. santiago who agreed to admit the patient. I also spoke with Dr. Rueda as this is a personal patient of his. Patient admitted to the floor - Lab Data Result diagrams: 01/14/21 05:17 01/14/21 05:17 Lab Results 01/12/21 01/12/21 01/12/21 Range/Units 10:05 10:13 10:13 WBC 7.1 (3.8-10.6) k/uL RBC 3.64 L (4.30-5.90) m/uL Hgb 10.9 L (13.0-17.5) gm/dL Hct 32.5 L (39.0-53.0) % MCV 89.3 (80.0-100.0) fL MCH 30.0 (25.0-35.0) pg MCHC 33.6 (31.0-37.0) g/dL RDW 14.2 (11.5-15.5) % Plt Count 182 (150-450) k/uL MPV 7.0 Neutrophils % 72 % Lymphocytes % 14 % Monocytes % 6 % Eosinophils % 7 % Basophils % 0 % Neutrophils # 5.1 (1.3-7.7) k/uL Lymphocytes # 1.0 (1.0-4.8) k/uL Monocytes # 0.4 (0-1.0) k/uL Eosinophils # 0.5 (0-0.7) k/uL Basophils # 0.0 (0-0.2) k/uL PT 13.7 H (9.0-12.0) sec INR 1.3 H (<1.2) APTT 34.0 H (22.0-30.0) sec Sodium (137-145) mmol/L Potassium (3.5-5.1) mmol/L Chloride (98-107) mmol/L Carbon Dioxide (22-30) mmol/L Anion Gap mmol/L BUN (9-20) mg/dL Creatinine (0.66-1.25) mg/dL Est GFR (CKD-EPI)AfAm (>60 ml/min/1.73 sqM) Est GFR (CKD-EPI)NonAf (>60 ml/min/1.73 sqM) Glucose (74-99) mg/dL POC Glucose (mg/dL) 63 L (75-99) mg/dL POC Glu [employer] Operator ID Luz Moore Estimated [address] Glu mg/dL Hemoglobin A1c (4.0-6.0) % Calcium (8.4-10.2) mg/dL Total Bilirubin (0.2-1.3) mg/dL AST (17-59) U/L ALT (4-49) U/L Alkaline Phosphatase (38-126) U/L Troponin I (0.000-0.034) ng/mL Total Protein (6.3-8.2) g/dL Albumin (3.5-5.0) g/dL Triglycerides (<150) mg/dL Cholesterol (<200) mg/dL LDL Cholesterol, Calc (0-99) mg/dL HDL Cholesterol (40-60) mg/dL Coronavirus (PCR) (Not Detectd) 01/12/21 01/12/21 01/12/21 Range/Units 10:13 10:13 10:13 WBC (3.8-10.6) k/uL RBC (4.30-5.90) m/uL Hgb (13.0-17.5) gm/dL Hct (39.0-53.0) % MCV (80.0-100.0) fL MCH (25.0-35.0) pg MCHC (31.0-37.0) g/dL RDW (11.5-15.5) % Plt Count (150-450) k/uL MPV Neutrophils % % Lymphocytes % % Monocytes % % Eosinophils % % Basophils % % Neutrophils # (1.3-7.7) k/uL Lymphocytes # (1.0-4.8) k/uL Monocytes # (0-1.0) k/uL Eosinophils # (0-0.7) k/uL Basophils # (0-0.2) k/uL PT (9.0-12.0) sec INR (<1.2) APTT (22.0-30.0) sec Sodium 140 (137-145) mmol/L Potassium 5.4 H (3.5-5.1) mmol/L Chloride 111 H (98-107) mmol/L Carbon Dioxide 20 L (22-30) mmol/L Anion Gap 9 mmol/L BUN 37 H (9-20) mg/dL Creatinine 1.60 H (0.66-1.25) mg/dL Est GFR (CKD-EPI)AfAm 49 (>60 ml/min/1.73 sqM) Est GFR (CKD-EPI)NonAf 42 (>60 ml/min/1.73 sqM) Glucose 69 L (74-99) mg/dL POC Glucose (mg/dL) (75-99) mg/dL POC Glu [employer] Machine Operator ID Estimated Ave Glu mg/dL Hemoglobin A1c (4.0-6.0) % Calcium 9.1 (8.4-10.2) mg/dL Total Bilirubin 0.4 (0.2-1.3) mg/dL AST 19 (17-59) U/L ALT 17 (4-49) U/L Alkaline Phosphatase 91 (38-126) U/L Troponin I <0.012 (0.000-0.034) ng/mL Total Protein 6.1 L (6.3-8.2) g/dL Albumin 3.5 (3.5-5.0) g/dL Triglycerides 61 (<150) mg/dL Cholesterol 84 (<200) mg/dL LDL Cholesterol, Calc 42 (0-99) mg/dL HDL Cholesterol 30 L (40-60) mg/dL Coronavirus (PCR) (Not Detectd) 01/12/21 01/12/21 01/12/21 Range/Units 10:13 10:58 12:33 WBC (3.8-10.6) k/uL RBC (4.30-5.90) m/uL Hgb (13.0-17.5) gm/dL Hct (39.0-53.0) % MCV (80.0-100.0) fL MCH (25.0-35.0) pg MCHC (31.0-37.0) g/dL RDW (11.5-15.5) % Plt Count (150-450) k/uL MPV Neutrophils % % Lymphocytes % % Monocytes % % Eosinophils % % Basophils % % Neutrophils # (1.3-7.7) k/uL Lymphocytes # (1.0-4.8) k/uL Monocytes # (0-1.0) k/uL Eosinophils # (0-0.7) k/uL Basophils # (0-0.2) k/uL PT (9.0-12.0) sec INR (<1.2) APTT (22.0-30.0) sec Sodium (137-145) mmol/L Potassium (3.5-5.1) mmol/L Chloride (98-107) mmol/L Carbon Dioxide (22-30) mmol/L Anion Gap mmol/L BUN (9-20) mg/dL Creatinine (0.66-1.25) mg/dL Est GFR (CKD-EPI)AfAm (>60 ml/min/1.73 sqM) Est GFR (CKD-EPI)NonAf (>60 ml/min/1.73 sqM) Glucose (74-99) mg/dL POC Glucose (mg/dL) 104 H (75-99) mg/dL POC Glu [employer] Machine Operator ID Cody Baires [address] Glu mg/dL 189 Hemoglobin A1c 8.2 H (4.0-6.0) % Calcium (8.4-10.2) mg/dL Total Bilirubin (0.2-1.3) mg/dL AST (17-59) U/L ALT (4-49) U/L Alkaline Phosphatase (38-126) U/L Troponin I (0.000-0.034) ng/mL Total Protein (6.3-8.2) g/dL Albumin (3.5-5.0) g/dL Triglycerides (<150) mg/dL Cholesterol (<200) mg/dL LDL Cholesterol, Calc (0-99) mg/dL HDL Cholesterol (40-60) mg/dL Coronavirus (PCR) Not Detected (Not Detectd) 01/12/21 01/13/21 01/13/21 Range/Units 20:42 07:45 11:54 WBC (3.8-10.6) k/uL RBC (4.30-5.90) m/uL Hgb (13.0-17.5) gm/dL Hct (39.0-53.0) % MCV (80.0-100.0) fL MCH (25.0-35.0) pg MCHC (31.0-37.0) g/dL RDW (11.5-15.5) % Plt Count (150-450) k/uL MPV Neutrophils % % Lymphocytes % % Monocytes % % Eosinophils % % Basophils % % Neutrophils # (1.3-7.7) k/uL Lymphocytes # (1.0-4.8) k/uL Monocytes # (0-1.0) k/uL Eosinophils # (0-0.7) k/uL Basophils # (0-0.2) k/uL PT (9.0-12.0) sec INR (<1.2) APTT (22.0-30.0) sec Sodium (137-145) mmol/L Potassium (3.5-5.1) mmol/L Chloride (98-107) mmol/L Carbon Dioxide (22-30) mmol/L Anion Gap mmol/L BUN (9-20) mg/dL Creatinine (0.66-1.25) mg/dL Est GFR (CKD-EPI)AfAm (>60 ml/min/1.73 sqM) Est GFR (CKD-EPI)NonAf (>60 ml/min/1.73 sqM) Glucose (74-99) mg/dL POC Glucose (mg/dL) 279 H 197 H 271 H (75-99) mg/dL POC Glu [employer] Operator Samreen Allison, Love Gonzalez [address]imated [address] Glu mg/dL Hemoglobin A1c (4.0-6.0) % Calcium (8.4-10.2) mg/dL Total Bilirubin (0.2-1.3) mg/dL AST (17-59) U/L ALT (4-49) U/L Alkaline Phosphatase (38-126) U/L Troponin I (0.000-0.034) ng/mL Total Protein (6.3-8.2) g/dL Albumin (3.5-5.0) g/dL Triglycerides (<150) mg/dL Cholesterol (<200) mg/dL LDL Cholesterol, Calc (0-99) mg/dL HDL Cholesterol (40-60) mg/dL Coronavirus (PCR) (Not Detectd) Critical Care Time Critical Care Time: Yes Critical Care Time: 32 minutes Disposition Clinical Impression: Left-sided weakness, TIA (transient ischemic attack), Hypoglycemia, CKD (chronic kidney disease) Disposition: ADMITTED IP TO THIS HOSP Condition: Stable Is patient prescribed a controlled substance at d/c from ED?: No Decision to Admit Reason: Admit from EC Decision Date: 01/12/21 Decision Time: 12:03
[2021-01-12 10:45] LABS: INR 1.3 (<1.2); Prothrombin Time 13.7 sec (9.0-12.0)
--- NOTE | 2021-01-12 10:46 | CT ---
EXAMINATION TYPE: CT brain wo con DATE OF EXAM: 01/12/2021 HISTORY: CODE STROKE. Acute stroke suspected. Acute onset Neurodeficit CT DLP: 150 mGycm. Automated Exposure Control for Dose Reduction was Utilized. TECHNIQUE: CT scan of the head is performed without contrast. COMPARISON: CT brain July 27, 2020. FINDINGS: There is no acute intracranial hemorrhage or midline shift identified. There is moderate diffuse ventricular and sulcal prominence consistent with diffuse age-related cerebral atrophy. Ther e is moderate low attenuation in the periventricular white matter consistent with chronic small vesse l ischemic change. The globes are intact and the visualized sinuses are clear. IMPRESSION: No acute intracranial hemorrhage or midline shift. There is moderate diffuse age-relate d cerebral atrophy and chronic small vessel ischemic change redemonstrated. No significant change fr om prior.
[2021-01-12 10:55] LABS: Albumin 3.5 g/dL (3.5-5.0); Calcium 9.1 mg/dL (8.4-10.2); Potassium 5.4 mmol/L (3.5-5.1); Total Bilirubin 0.4 mg/dL (0.2-1.3); Total Protein 6.1 g/dL (6.3-8.2)
--- NOTE | 2021-01-12 10:56 | XR ---
EXAMINATION TYPE: XR chest 2V DATE OF EXAM: 01/12/2021 COMPARISON: Chest x-ray July 30, 2020. CT September 10, 2020. HISTORY: History of colon cancer with new weakness and altered mental status TECHNIQUE: Frontal and lateral views of the chest are obtained. FINDINGS: Background chronic emphysematous and pulmonary fibrotic change redemonstrated. There is no new suspicious focal air space opacity, pleural effusion, or pneumothorax seen. The cardiac silhoue tte size is stable and within normal limits without sclerotic change aortic knob. The osseous struc tures are intact. IMPRESSION: Chronic changes without new suspicious acute pulmonary process.
[2021-01-12 11:00] LABS: Glucose,Whole Blood 104 mg/dL (75-99)
--- NOTE | 2021-01-12 11:33 | CT ---
EXAMINATION TYPE: CT angio head neck DATE OF EXAM: 01/12/2021 HISTORY: CODE STROKE, acute onset neuro deficit. COMPARISON: CTA head and neck July 27, 2020. CT DLP: 498.3 mGycm. Automated Exposure Control for Dose Reduction was Utilized. TECHNIQUE: CTA scan of the head and neck are performed without and with IV Contrast, patient injecte d with 65 ml mL of Isovue 370, axial images are obtained, coronal and sagittal reformatted images are reviewed. Three-D reconstructed images are created on an independent workstation and reviewed. FINDINGS: Carotid/Vascular Structures: There is 4 vessel origin from aortic arch redemonstrated which is normal variant . Mild to moderate peripheral and arch is identified. Normal origin right common carotid art cat from right brachiocephalic artery. Focal mild calcified plaque anterior left common carotid arter y proximal to mid segment near thyroid gland axial image 37 redemonstrated. No significant plaque or stenosis in the common carotid arteries bilaterally. There are patent bilateral external carotid manjinder kathryn without significant stenosis redemonstrated. There is persistent severe mixed plaque right carot id bulb extending into the proximal internal carotid artery causing stenosis narrowed to 3.0 mm trans versely image 426 and reconstitution to 5.8 mm superior to this image 62 series 501. Stenosis consist ent with just under 50%. No significant change from prior. More moderate to severe calcified plaque l eft carotid bulb extends into proximal internal carotid artery without significant stenosis similar t o prior. Codominant vertebrobasilar system is intact to basilar artery. Patent bilateral posterior to indicati ng arteries. No significant focal stenosis or aneurysmal change. Stable patent but small caliber righ t M1 segment. There is a patent anterior communicating artery redemonstrated. No new significant foca l stenosis or aneurysmal change in the anterior circulation. Other: Respiratory motion artifact degradation in the visualized lungs with underlying mild emphysema tous change suspected. Persistent subcentimeter anterior right upper lobe nodule image 3 correlates w ith recent CT September 10, 2020. Slight grade 1 retrolisthesis C4 on C5 and C5 on C6. Moderate disc space narrowing with posterior spu rs effacing the anterior thecal sac at these levels. IMPRESSION: Moderate to severe plaque at origin of proximal internal carotid arteries bilaterally gre ater on the right redemonstrated. Stenosis near 50% on the right unchanged from most recent prior walker dy. No significant stenosis or aneurysm at the level of the [place].
[2021-01-12] MEDS ORDERED: ASPIRIN 325 MG TAB PO STA (12:11)
[2021-01-12] MEDS: SODIUM CHLORIDE 0.9% 1,000 ML IV SCH ×2 (12:39→19:51)
[2021-01-12] MEDS ORDERED: SODIUM POLYSTYRENE SULFONATE 15 GM/60 ML BOTTLE PO STA (16:27)
--- NOTE | 2021-01-12 17:52 | P.HPIM ---
History of Present Illness 75-year-old male with multiple medical conditions to include lung cancer on active chemo, COPD, CVA, coronary disease who presents to the emergency department with reported strokelike symptoms. Patient would not eat breakfast. States that he had sudden onset around 9:30 of left arm weakness and tingling numbness as well as left lower face below the lower lip tingling. Patient is unsure whether he had weakness in the left leg but no tingling numbness. Was also aphasic. EMS was called in an age performed by them was negative. Patient does have previous history of TIA. He is on Xarelto. Denies any missed doses. Patient is a diabetic. States he took his medications last night however does not take insulin in the morning. Patient ate anything. Denies any recent fevers or chills. No chest pain or shortness of breath. No other alleviating, precipitating or modifying factors. Patient is receiving biologic therapy for lung cancer patient is on treatment with Andrae ruled out. Patient does have history of COPD does have some wheezing at this time. Patient's symptoms resolved after few minutes. Patient had a CT angiography of the head and neck which only showed 50% stenosis on the right side unchanged from the prior study left-sided there is some plaque. CT of the head did not show any acute stroke or hemorrhage. MRI will be obtained echocardiogram will be obtained along with a lipid panel for tomorrow neurology was consulted. Patient denied any known metastatic disease. Patient does have chronic kidney disease with baseline creatinine of around 1.6 his present creatinine is on that. Patient has hyperkalemia secondary to RAFAEL inhibitor which will be held and patient will be given a dose of Kayexalate. Review of Systems REVIEW OF SYSTEMS: CONSTITUTIONAL: No fever, no malaise, no fatigue. HEENT: No recent visual problems or hearing problems. Denied any sore throat. CARDIOVASCULAR: No chest pain, orthopnea, PND, no palpitations, no syncope. PULMONARY: No shortness of breath, no cough, no hemoptysis. GASTROINTESTINAL: No diarrhea, no nausea, no vomiting, no abdominal pain. NEUROLOGICAL: No headaches. HEMATOLOGICAL: Denies any bleeding or petechiae. GENITOURINARY: Denies any burning micturition, frequency, or urgency. MUSCULOSKELETAL/RHEUMATOLOGICAL: Denies any joint pain, swelling, or any muscle pain. ENDOCRINE: Denies any polyuria or polydipsia. The rest of the 14-point review of systems is negative. Past Medical History Past Medical History: Coronary Artery Disease (CAD), Cancer, COPD, CVA/TIA, D iabetes Mellitus, Deep Vein Thrombosis (DVT), Hyperlipidemia, Hypertension, Myocardial Infarction ([place]), Osteoarthritis (OA), Pneumonia, Prostate Disorder, Seizure Disorder Additional Past Medical History / Comment(s): 07/2018 L lung cancer with left upper lobectomy/IV chemo but pt states he quit taking chemo early then diagnosed with R lower lobe cancer in August 2019 and had wedge resection and immunotherapy every 3 weeks, bronchitis, TIA and seizure after bronchoscopy in 2017, DVT L leg, IDDM type II, chronic cervical/back pain, diabetes mellitus, occasional bilateral ankle edema, BPH, chronic stage III kidney disease Last Myocardial Infarction Date:: 05/24/12 History of Any Multi-Drug Resistant Organisms: None Reported Past Surgical History: Back Surgery, Cholecystectomy, Heart Catheterization, Hernia Repair, Tonsillectomy Additional Past Surgical History / Comment(s): 2017 Bronchoscopy with bx, 2017 L upper lobectomy at [facility], August 2019 R lower lung wedge resection, low back surgery, 2011 cardiac cath-treat medically, umbilical hernia repair, bilateral c ataract removals Past Anesthesia/Blood Transfusion Reactions: Previous Problems w/ Anesthesia Additional Past Anesthesia/Blood Transfusion Reaction / Comment(s): Seizure and mini stroke following lung biopsy Past Psychological History: Anxiety, Depression Smoking Status: Never smoker Past Alcohol Use History: None Reported Past Drug Use History: None Reported - Past Family History Mother Family Medical History: No Reported History Additional Family Medical History / Comment(s): Mother was healthy Father Family Medical History: Diabetes Mellitus Additional Family Medical History / Comment(s): Father of diabetes at the age of 83 yrs. Medications and Allergies Home Medications Medication Instructions Recorded Confirmed Type Simvastatin [Zocor] 40 mg PO DAILY 07/30/19 01/12/21 History amLODIPine [Norvasc] 10 mg PO HS 07/30/19 01/12/21 History levETIRAcetam [Keppra] 500 mg PO BID 07/30/19 01/12/21 History Metoprolol Tartrate 25 mg PO BID #60 tab 09/10/19 01/12/21 Rx Insulin Detemir [Levemir Flextouch] 75 units SQ HS 07/06/20 01/12/21 History Omeprazole 20 mg PO DAILY 07/06/20 01/12/21 History Levothyroxine Sodium [Synthroid] 25 mcg PO DAILY@0630 30 Days #30 07/08/20 01/12/21 Rx tab HYDROcodone/APAP 5-325MG [[place] 1 tab PO BID PRN 01/12/21 01/12/21 History 5-325] Ipratropium-Albuterol Nebulize 3 ml INHALATION RT-TID PRN 01/12/21 01/12/21 History [Duoneb 0.5 mg-3 mg/3 ml Soln] Rivaroxaban [Xarelto] 15 mg PO HS 01/12/21 01/12/21 History Solifenacin Succinate [Vesicare] 10 mg PO DAILY 01/12/21 01/12/21 History lisinopriL [Prinivil] 20 mg PO DAILY 01/12/21 01/12/21 History Allergies Allergy/AdvReac Type Severity Reaction Status Date / Time No Known Allergies Allergy Verified 01/12/21 11:53 Physical Exam Vitals: Vital Signs Temp Pulse Resp BP Pulse Ox 01/12/21 14:33 98.0 F 64 16 150/72 99 01/12/21 12:55 97.6 F 67 16 149/84 98 01/12/21 11:49 63 18 161/79 96 01/12/21 11:05 62 18 169/88 98 01/12/21 10:03 98.1 F 68 18 152/83 92 L Intake and Output 01/12/21 01/12/21 01/12/21 06:59 14:59 22:59 Other: Weight 86.183 kg PHYSICAL EXAMINATION: GENERAL: The patient is alert and oriented x3, not in any acute distress. Well developed, well nourished. HEENT: Pupils are round and equally reacting to light. EOMI. No scleral icterus. No conjunctival pallor. Normocephalic, atraumatic. No pharyngeal erythema. No thyromegaly. CARDIOVASCULAR: S1 and S2 present. No murmurs, rubs, or gallops. PULMONARY: Chest is clear to auscultation, no wheezing or crackles. ABDOMEN: Soft, nontender, nondistended, normoactive bowel sounds. No palpable organomegaly. MUSCULOSKELETAL: No joint swelling or deformity. EXTREMITIES: No cyanosis, clubbing, or pedal edema. 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 Results CBC & Chem 7: 01/12/21 10:13 01/12/21 10:13 Labs: Abnormal Lab Results - Last 24 Hours (Table) 01/12/21 01/12/21 01/12/21 Range/Units 10:05 10:13 10:13 RBC 3.64 L (4.30-5.90) m/uL Hgb 10.9 L (13.0-17.5) gm/dL Hct 32.5 L (39.0-53.0) % PT 13.7 H (9.0-12.0) sec INR 1.3 H (<1.2) APTT 34.0 H (22.0-30.0) sec Potassium (3.5-5.1) mmol/L Chloride (98-107) mmol/L Carbon Dioxide (22-30) mmol/L BUN (9-20) mg/dL Creatinine (0.66-1.25) mg/dL Glucose (74-99) mg/dL POC Glucose (mg/dL) 63 L (75-99) mg/dL Total Protein (6.3-8.2) g/dL 01/12/21 01/12/21 Range/Units 10:13 10:58 RBC (4.30-5.90) m/uL Hgb (13.0-17.5) gm/dL Hct (39.0-53.0) % PT (9.0-12.0) sec INR (<1.2) APTT (22.0-30.0) sec Potassium 5.4 H (3.5-5.1) mmol/L Chloride 111 H (98-107) mmol/L Carbon Dioxide 20 L (22-30) mmol/L BUN 37 H (9-20) mg/dL Creatinine 1.60 H (0.66-1.25) mg/dL Glucose 69 L (74-99) mg/dL POC Glucose (mg/dL) 104 H (75-99) mg/dL Total Protein 6.1 L (6.3-8.2) g/dL Assessment and Plan Plan: Possible TIA: Involving the right middle cerebral artery territory probably ischemic in origin, patient will undergo further workup with MRI without contrast, echocardiogram. CT angios the head and neck as well as CT as mentioned above we'll obtain lipid panel . -Hyperlipidemia: Seconded to chronic kidney disease and the lisinopril was stopped will be held patient will be given a dose of Kayexalate and the patient will be on low potassium diet along with cardiac diet. -Chronic kidney disease stage III probably from diabetic nephropathy. -History of an episode of for seizure last year when he was undergoing pneumonectomy for his lung cancer -Lung cancer patient is on biologic therapy as far as patientand doesn't have any known metastatic disease -COPD with mild acute exacerbation patient will be started on inhaled steroids inhalational treatments -Hyperlipidemia -Hypertension -Hypothyroidism -Gastroesophageal reflux disease -History of DVT in the past for which patient is on anticoagulation
[2021-01-12] MEDS: IPRATROPIUM-ALBUTEROL 3 ML NEB INHALATION PRN (20:13)
[2021-01-12] MEDS: BUDESONIDE 0.5 MG/2 ML NEBU INHALATION SCH (20:13)
[2021-01-12] MEDS: METOPROLOL TARTRATE 25 MG TAB PO SCH (20:39)
[2021-01-12] MEDS: amLODIPine 10 MG TAB PO SCH (20:39)
[2021-01-12] MEDS: levETIRAcetam 500 MG TAB PO SCH (20:39)
[2021-01-12] MEDS: RIVAROXABAN 15 MG TAB PO SCH (20:39)
[2021-01-12] MEDS: INSULIN DETEMIR (LEVEMIR) 100 UNIT/ML SYR SQ SCH (20:40)
[2021-01-12 20:44] LABS: Glucose,Whole Blood 279 mg/dL (75-99)
--- NOTE | 2021-01-12 23:52 | P.CNNES ---
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 He was sitting at the table, waiting for the food, when he suddenly developed numbness of the left hand, that extended to the right hand and perioral region. Then he couldn't get up. He couldn't stand. He could not speak. Patient states that he was holding his left arm on the table and it would fall down. There was no report of facial droop. EMS was called and he was brought to the hospital. Patient states that the speech difficulty lasted for about 15 minutes whereas overall symptoms lasted about 30 minutes. At present he has no symptoms. He denies any previous history of strokes or TIA. Patient does take Xarelto for DVT. CTA of head and neck showed moderate to severe plaque at region of proximal internal carotid arteries bilaterally greater on the right redemonstrated. Stenosis near 50% on the right unchanged from the most recent prior study. No significant stenosis or aneurysm at the level of [place]. CT head showed no acute intracranial hemorrhage or midline shift. There is moderate diffuse age-related cerebral atrophy and chronic small vessel ischemic change redemonstrated. No significant change from prior. Chest x-ray showed chronic changes without new suspicious acute pulmonary process. EKG shows normal sinus rhythm. Blood test shows normal WBC, hemoglobin 10.9, platelets 182. INR is 1.3, PTT 34.0. Sodium is normal potassium 5.4, BUN 37, creatinine 1.60. Hepatic panel normal. Dixon virus negative. Troponin negative. Patient has stage IV lung cancer, diagnosed in July or August 2020. He had undergone partial left lung lobectomy. He has received chemotherapy, but was feeling very sick. Now he is receiving Keytruda. Patient states he has diabetes for 20+ years, hypertension, COPD. Denies any hyperlipidemia. He has smoked 3 packs per day for 33 years, quit 23 years ago. Patient denies any previous history of strokes or seizures. Patient does take anticoagulants Xarelto and aspirin 81 mg daily. Review of Systems Patient has some shortness of breath. At present he has no other symptoms whatsoever. All other 14 point review of systems unremarkable. No fever or chills. He does have cough. He has COPD and some congestion. Past Medical History Past Medical History: Coronary Artery Disease (CAD), Cancer, COPD, CVA/TIA, Diabetes Mellitus, Deep Vein Thrombosis (DVT), Hyperlipidemia, Hypertension, Myocardial Infarction ([place]), Osteoarthritis (OA), Pneumonia, Prostate Disorder, Seizure Disorder Additional Past Medical History / Comment(s): 07/2018 L lung cancer with left upper lobectomy/IV chemo but pt states he quit taking chemo early then diagnosed with R lower lobe cancer in August 2019 and had wedge resection and immuno therapy every 3 weeks, bronchitis, TIA and seizure after bronchoscopy in 2017, DVT L leg, IDDM type II, chronic cervical/back pain, diabetes mellitus, occasional bilateral ankle edema, BPH, chronic stage III kidney disease Last Myocardial Infarction Date:: 05/24/12 History of Any Multi-Drug Resistant Organisms: None Reported Past Surgical History: Back Surgery, Cholecystectomy, Heart Catheterization, Hernia Repair, Tonsillectomy Additional Past Surgical History / Comment(s): 2017 Bronchoscopy with bx, 2017 L upper lobectomy at [facility], August 2019 R lower lung wedge resection, low back surgery, 2011 cardiac cath-treat medically, umbilical hernia repair, bilateral cataract removals Past Anesthesia/Blood Transfusion Reactions: Previous Problems w/ Anesthesia Additional Past Anesthesia/Blood Transfusion Reaction / Comment(s): Seizure and mini stroke following lung biopsy Past Psychological History: Anxiety, Depression Smoking Status: Never smoker Past Alcohol Use History: None Reported Past Drug Use History: None Reported - Past Family History Mother Family Medical History: No Reported History Additional Family Medical History / Comment(s): Mother was healthy Father Family Medical History: Diabetes Mellitus Additional Family Medical History / Comment(s): Father of diabetes at the age of 83 yrs. Medications and Allergies Home Medications Medication Instructions Recorded Confirmed Type Simvastatin [Zocor] 40 mg PO DAILY 07/30/19 01/12/21 History amLODIPine [Norvasc] 10 mg PO HS 07/30/19 01/12/21 History levETIRAcetam [Keppra] 500 mg PO BID 07/30/19 01/12/21 History Metoprolol Tartrate 25 mg PO BID #60 tab 09/10/19 01/12/21 Rx Insulin Detemir [Levemir Flextouch] 75 units SQ HS 07/06/20 01/12/21 History Omeprazole 20 mg PO DAILY 07/06/20 01/12/21 History Levothyroxine Sodium [Synthroid] 25 mcg PO DAILY@0630 30 Days #30 07/08/20 01/12/21 Rx tab HYDROcodone/APAP 5-325MG [[place] 1 tab PO BID PRN 01/12/21 01/12/21 History 5-325] Ipratropium-Albuterol Nebulize 3 ml INHALATION RT-TID PRN 01/12/21 01/12/21 History [Duoneb 0.5 mg-3 mg/3 ml Soln] Rivaroxaban [Xarelto] 15 mg PO HS 01/12/21 01/12/21 History Solifenacin Succinate [Vesicare] 10 mg PO DAILY 01/12/21 01/12/21 History lisinopriL [Prinivil] 20 mg PO DAILY 01/12/21 01/12/21 History Allergies Allergy/AdvReac Type Severity Reaction Status Date / Time No Known Allergies Allergy Verified 01/12/21 11:53 Physical Examination - Vital Signs Vital Signs: Vital Signs Temp Pulse Pulse Resp BP BP Pulse Ox 01/12/21 23:29 98.1 F 77 17 163/66 97 01/12/21 20:32 72 01/12/21 20:17 72 01/12/21 18:48 98.5 F 79 18 156/83 97 01/12/21 14:33 98.0 F 64 16 150/72 99 01/12/21 13:09 98.1 F 77 18 163/66 96 01/12/21 12:55 97.6 F 67 16 149/84 98 01/12/21 11:49 63 18 161/79 96 01/12/21 11:05 62 18 169/88 98 01/12/21 10:03 98.1 F 68 18 152/83 92 L Intake and Output 01/12/21 01/12/21 01/13/21 14:59 22:59 06:59 Intake Total 600 Balance 600 Intake: Intake, IV Titration 600 Amount Sodium Chloride 0.9% 1, 600 000 ml @ 75 mls/hr IV . [id number] Rx#:[id number] Other: # Voids 2 Weight 86.183 kg On examination patient is an elderly male, in no acute distress. Patient is alert and awake fully oriented. Speech and language functions are normal. Attention, concentration and fund of knowledge is adequate. On cranial nerve exam his pupils are round and reactive to light, visual wright are full on confrontation, extraocular muscles are intact with no nystagmus. Face is symmetric, tongue protrudes to the midline. Palatal elevation sensation normal, hearing and shoulder shrug normal. Facial sensation normal. On muscle strength testing there is no pronator drift and the strength is normal in arms and legs distally and proximally reflexes are 2+ all over and plantars downgoing. Sensory touch is equal with no neglect. No ataxia for [id number] testing. Tone and bulk of muscles normal. Gait deferred. On general examination there is no bruit or murmur, peripheral pulses present. Abdomen soft nontender. Chest is congested. Results - Laboratory Findings CBC and BMP: 01/12/21 10:13 01/12/21 10:13 Abnormal Lab Findings: Abnormal Labs 01/12/21 01/12/21 01/12/21 10:05 10:13 10:13 RBC 3.64 L Hgb 10.9 L Hct 32.5 L PT 13.7 H INR 1.3 H APTT 34.0 H Potassium Chloride Carbon Dioxide BUN Creatinine Glucose POC Glucose (mg/dL) 63 L Total Protein 01/12/21 01/12/21 01/12/21 10:13 10:58 20:42 RBC Hgb Hct PT INR APTT Potassium 5.4 H Chloride 111 H Carbon Dioxide 20 L BUN 37 H Creatinine 1.60 H Glucose 69 L POC Glucose (mg/dL) 104 H 279 H Total Protein 6.1 L Assessment and Plan Assessment: * Probable TIA manifesting with speech difficulty, left arm weakness and inability to stand up. Symptoms resolved in 30 minutes. Current examination is nonfocal. * CTA revealed moderate to severe plaque at the origin of proximal ICA bilat erally, greater on the right with 50% stenosis on the right. * COPD * Diabetes * Hypertension * Lung cancer, on chemotherapy. * X tobacco use. Plan: * Patient is undergoing MRI of the brain. * 2-D echo to evaluate for other embolic source. * Patient states that he does follow up with Dr. Castro about his carotid stenosis. * Patient has been on Xarelto and aspirin 81 mg daily. We will increase aspirin to 162 mg daily. * Patient's last hemoglobin A1c was 8.8. Suggest optimizing control of diabetes to target A1c <7.0. Will recheck hemoglobin A1c. * Patient's last lipid panel from 07/29/2020 shows cholesterol 90, LDL 46, HDL 26 and triglycerides 89. Continue Zocor 40 mg. * We will follow.
[2021-01-13 01:31] LABS: Cholesterol 84 mg/dL (<200); HDL Cholesterol 30 mg/dL (40-60); LDL Cholesterol,Calculated 42 mg/dL (0-99); Triglycerides 61 mg/dL (<150)
[2021-01-13] MEDS: LEVOTHYROXINE 25 MCG TAB PO SCH (05:28)
[2021-01-13] MEDS: IPRATROPIUM-ALBUTEROL 3 ML NEB INHALATION PRN ×3 (07:24→18:56)
[2021-01-13] MEDS: BUDESONIDE 0.5 MG/2 ML NEBU INHALATION SCH ×2 (07:24→18:56)
[2021-01-13 07:46] LABS: Glucose,Whole Blood 197 mg/dL (75-99)
[2021-01-13] MEDS: PANTOPRAZOLE 40 MG TABLET PO SCH (08:48)
[2021-01-13] MEDS: levETIRAcetam 500 MG TAB PO SCH ×2 (08:48→20:14)
[2021-01-13] MEDS: TROSPIUM CHLORIDE 20 MG TABLET PO SCH ×2 (08:48→20:37)
[2021-01-13] MEDS: SODIUM CHLORIDE 0.9% 1,000 ML IV SCH ×2 (08:48→20:37)
[2021-01-13] MEDS: ASPIRIN 81 MG PO SCH (08:48)
[2021-01-13] MEDS: METOPROLOL TARTRATE 25 MG TAB PO SCH ×2 (08:48→20:14)
[2021-01-13] MEDS: ATORVASTATIN 20 MG TAB PO SCH (08:48)
[2021-01-13] MEDS: HYDROcodone/APAP 5-325MG 1 EACH TAB PO PRN ×2 (08:52→20:15)
[2021-01-13] MEDS ORDERED: lisinopriL 20 MG TAB PO SCH (09:00)
--- NOTE | 2021-01-13 11:38 | P.CONS ---
History of Present Illness - Chief Complaint Gait disturbance, left hemiparesthesias - History of Present Illness I had the opportunity to see patient for inpatient rehab consultation with regard to gait disturbance. Patient admitted to [facility] January 12 with left arm weakness and numbness left face and arm. Patient reports falling 3 over last week. Seen by neurology, Dr. Riley who notes symptoms resolving/resolved, diagnosis TIA. PT, OT, RIVER PILOT all prescribed but has not started yet. Chest x-ray demonstrates chronic change. Head CT with moderate atrophy. Angiogram CT demonstrates left and 650% stenosis carotids and carotid bulbs. Brain MRI just done. Previous functional history as elicited from patient: 75-year-old right-handed white male who is and lives in one floor home with son and son's family. Patient retired and son works full-time. [id number] does the cooking and laundry. Patient describes it previously was independent with driving, standing shower. He obtained a cane for the last week due to falls. Family history father with diabetes. Review of Systems Review of systems: ENT: Denies sneezes or discharge. Eyes: Denies discharge or photophobia. Cardiac: Denies chest pain or palpitation. Pulmonary: Denies cough or shortness of breath. Gastrointestinal: Denies nausea, emesis, constipation, diarrhea. Genitourinary: Denies discharge or frequency. Musculoskeletal: Denies muscle or bone aches. Neurologic: Denies motor or sensory change. Endocrine: Denies shakes or sweats. Oncology: Denies cancers. Dermatologic: Denies rash, itching, pruritus. ALLERGY/immunology: Denies sneezes, rashes. Past Medical History Past Medical History: Coronary Artery Disease (CAD), Cancer, COPD, CVA/TIA, D iabetes Mellitus, Deep Vein Thrombosis (DVT), Hyperlipidemia, Hypertension, Myocardial Infarction (IA), Osteoarthritis (OA), Pneumonia, Prostate Disorder, Seizure Disorder Additional Past Medical History / Comment(s): 07/2018 L lung cancer with left upper lobectomy/IV chemo but pt states he quit taking chemo early then diagnosed with R lower lobe cancer in August 2019 and had wedge resection and immunotherapy every 3 weeks, bronchitis, TIA and seizure after bronchoscopy in 2018, DVT L leg, IDDM type II, chronic cervical/back pain, diabetes mellitus, occasional bilateral ankle edema, BPH, chronic stage III kidney disease Last Myocardial Infarction Date:: 05/24/12 History of Any Multi-Drug Resistant Organisms: None Reported Past Surgical History: Back Surgery, Cholecystectomy, Heart Catheterization, Hernia Repair, Tonsillectomy Additional Past Surgical History / Comment(s): 2018 Bronchoscopy with bx, 2017 L upper lobectomy at [facility], August 2019 R lower lung wedge resection, low back surgery, 2011 cardiac cath-treat medically, umbilical hernia repair, bilateral c ataract removals Past Anesthesia/Blood Transfusion Reactions: Previous Problems w/ Anesthesia Additional Past Anesthesia/Blood Transfusion Reaction / Comm: Seizure and mini stroke following lung biopsy Past Psychological History: Anxiety, Depression Smoking Status: Never smoker Past Alcohol Use History: None Reported Past Drug Use History: None Reported - Past Family History Mother Family Medical History: No Reported History Additional Family Medical History / Comment(s): Mother was healthy Father Family Medical History: Diabetes Mellitus Additional Family Medical History / Comment(s): Father of diabetes at the age of 83 yrs. Medications and Allergies Home Medications Medication Instructions Recorded Confirmed Type Simvastatin [Zocor] 40 mg PO DAILY 07/30/19 01/12/21 History amLODIPine [Norvasc] 10 mg PO HS 07/30/19 01/12/21 History levETIRAcetam [Keppra] 500 mg PO BID 07/30/19 01/12/21 History Metoprolol Tartrate 25 mg PO BID #60 tab 09/10/19 01/12/21 Rx Insulin Detemir [Levemir Flextouch] 75 units SQ HS 07/06/20 01/12/21 History Omeprazole 20 mg PO DAILY 07/06/20 01/12/21 History Levothyroxine Sodium [Synthroid] 25 mcg PO DAILY@0630 30 Days #30 07/08/20 01/12/21 Rx tab HYDROcodone/APAP 5-325MG [[place] 1 tab PO BID PRN 01/12/21 01/12/21 History 5-325] Ipratropium-Albuterol Nebulize 3 ml INHALATION RT-TID PRN 01/12/21 01/12/21 History [Duoneb 0.5 mg-3 mg/3 ml Soln] Rivaroxaban [Xarelto] 15 mg PO HS 01/12/21 01/12/21 History Solifenacin Succinate [Vesicare] 10 mg PO DAILY 01/12/21 01/12/21 History lisinopriL [Prinivil] 20 mg PO DAILY 01/12/21 01/12/21 History Allergies Allergy/AdvReac Type Severity Reaction Status Date / Time No Known Allergies Allergy Verified 01/12/21 11:53 Physical Exam Vitals: Vital Signs Temp Pulse Pulse Resp BP BP Pulse Ox 01/13/21 11:14 68 01/13/21 11:04 68 01/13/21 09:42 62 16 142/89 98 01/13/21 07:58 76 16 01/13/21 07:42 98.1 F 69 16 149/72 96 01/13/21 07:39 68 01/13/21 07:24 68 01/13/21 02:00 76 16 01/13/21 01:45 98.0 F 76 16 133/66 97 01/12/21 23:29 98.1 F 77 17 163/66 97 01/12/21 20:32 72 01/12/21 20:17 72 01/12/21 18:48 98.5 F 79 18 156/83 97 01/12/21 14:33 98.0 F 64 16 150/72 99 01/12/21 13:09 98.1 F 77 18 163/66 96 01/12/21 12:55 97.6 F 67 16 149/84 98 01/12/21 11:49 63 18 161/79 96 Intake and Output 01/12/21 01/13/21 01/13/21 22:59 06:59 14:59 Intake Total 600 180 Balance 600 180 Intake: Intake, IV Titration 600 Amount Sodium Chloride 0.9% 1, 600 000 ml @ 75 mls/hr IV . [id number] [facility] Rx#:[id number] Oral 180 Other: Voiding Method Toilet Toilet # Voids 2 2 Skin: Good color, texture, turgor. General: Medium build and comfortable appearance. Head: Normocephalic, atraumatic. Eyes: Symmetric. Pupils equal round. Ears: Symmetric. Hearing within normal limits. Mouth: Clear. Neck: Supple. Carotid without bruit. Cardiac: Regular rate and rhythm. Lungs: Clear anteriorly and posteriorly. Abdomen: Soft active nontender. Extremities: Normal tone. Neurological: Mental status: Alert, cooperative, pleasant. Cranial nerves: Symmetric facial tone and trapezius. Motor: Normal strength and isolation all 4 limbs. Sensation: Intact throughout. DTRs: Symmetric and equal throughout. Mobility: Patient reports hands-on supervision for gait in the room including bathroom. Results CBC & Chem 7: 01/12/21 10:13 01/12/21 10:13 Labs: Abnormal Lab Results - Last 24 Hours (Table) 01/12/21 01/12/21 01/13/21 Range/Units 10:13 20:42 07:45 POC Glucose (mg/dL) 279 H 197 H (75-99) mg/dL HDL Cholesterol 30 L (40-60) mg/dL Assessment and Plan (1) TIA (transient ischemic attack) Current Visit: Yes Status: Acute Code(s): G45.9 - TRANSIENT CEREBRAL ISCHEMIC ATTACK, UNSPECIFIED SNOMED Code(s): 255359820 (2) Acute exacerbation of chronic obstructive pulmonary disease Current Visit: No Status: Acute Code(s): J44.1 - CHRONIC OBSTRUCTIVE PULMONARY DISEASE W (ACUTE) EXACERBATION SNOMED Code(s): 904243344 Plan: Impression: 1. Gait disturbance. 2. History admission left hemiparesthesias, TIA. 3. Acute on chronic kidney disease. 4. COPD exacerbation. 5. CAD with history of IA. 6. Hypertension. 7. Dyslipidemia. 8. Diabetes. 9. Osteoarthritis. 10. History of cancer, DVT. 11. BPH. 12. Seizure disorder. Comments and plan: At this time PT, OT, RIVER PILOT all prescribed. We'll await her therapy notes for more in-depth evaluation of patient's standing and related safety. At that time will be better able to make recommendation and possible need and benefit of inpatient rehab.
[2021-01-13 11:56] LABS: Glucose,Whole Blood 271 mg/dL (75-99)
--- NOTE | 2021-01-13 12:57 | MR ---
MR brain without contrast HISTORY: Cerebral vascular accident Multiplanar multisequence imaging through the brain Correlation CT brain 01/12/2021, MR brain dated 10/07/2018 Cortical atrophy is again seen. There is no restricted diffusion to suggest subacute ischemia. Perive ntricular white matter shows stable confluent hyperintensity and inversion recovery T2-weighted seque nces, additional scattered hyperintensities also present in the deep white matter, kateryna, pericallosal white matter with some small foci of encephalomalacia towards the centrum semiovale similar to prior exam. There are normal vascular flow voids. Cerebellopontine angles, corpus callosum, pituitary, cer vical medullary junction shows a stable appearance, hypertrophic changes at the atlantoaxial joint sh ows some possible mass effect on the proximal cervical cord, spinal stenosis is suspected. Some mild inflammatory change present within the ethmoid air cells. The orbits show symmetric appearance. IMPRESSION: Age-related changes of atrophy and chronic small vessel ischemic change. Some spinal sten osis suspected at C1-C2. No subacute ischemia evident.
--- NOTE | 2021-01-13 12:59 | P.CNPUL ---
History of Present Illness Consult date: 01/13/21 Requesting physician: Omega Bruno Reason for consult: dyspnea Chief complaint: Numbness, dysphasia History of present illness: This a very pleasant 75-year-old gentleman who follows with Dr. Boyer as his primary care provider. He has a history of COPD, CVA/TIA, diabetes Vasile, DVT maintained on Xarelto, hyperlipidemia, hypertension, myocardial infarction, osteoarthritis, seizure disorder. He also has a history of left lung cancer with left upper lobectomy/IV chemotherapy and also diagnosed with a right lower lobe lung cancer in 2019 status post wedge resection. He remains on Keytruda. No known metastasis to the brain. Early yesterday morning he developed a sudden onset of left arm weakness tingling and numbness as well as left lower face below the lower lip with tingling and numbness. He is also having difficulty with aphasia. EMS was called and he is brought into the emergency room for the same. He states he started feeling better even and Route. He is seen today in consultation on the regular medical floor. He is currently sitting up in in bed. Awake and alert in no acute distress. He denies any ongoing issues with left arm tingling or numbness. Speaking clearly. On room air. Computed tomography scan of the brain revealed no acute abnormalities, there is noted moderate diffuse age-related cerebral atrophy and chronic small vessel changes. Chest x-ray revealed evidence of chronic changes but no acute pulmonary process. CT angiogram revealed moderate to severe plaque at the origin of the paroxysmal internal carotid arteries bilaterally greater on the right. Stenosis 50% unchanged. No significant stenosis or aneurysm of the [place]. MRI of the brain is pending. White count 7.1. Hemoglobin 10.9. INR 1.3. Sodium 140. Potassium 5.4. Creatinine 1.60. Blood glucose 271. Troponin negative 1. Dixon virus not detected. Review of Systems REVIEW OF SYSTEMS: CONSTITUTIONAL: Denies any recent significant weight loss or weight gain. EYES: Denies change in vision. EARS, NOSE, MOUTH, THROAT: Denies headaches, denies sore throat. CARDIOVASCULAR: Denies chest pain, palpitations or syncopal episodes. RESPIRATORY: Denies shortness of breath, cough, congestion or hemoptysis. GASTROINTESTINAL: Denies change in appetite, denies abdominal pain GENITOURINARY: Denies hematuria, denies infections. MUSKULOSKELETAL: Denies pain, denies swelling. INTEGUMENTARY: Denies rash, denies eczema. NEUROLOGICAL: Positive for tingling and numbness of the left side of the face, left arm, aphasia PSYCHIATRIC: Denies anxiety, denies depression. HEMATOLOGIC/LYMPHATIC: Denies anemia, denies enlarged lymph nodes. Past Medical History Past Medical History: Coronary Artery Disease (CAD), Cancer, COPD, CVA/TIA, Diabetes Mellitus, Deep Vein Thrombosis (DVT), Hyperlipidemia, Hypertension, Myocardial Infarction (AL), Osteoarthritis (OA), Pneumonia, Prostate Disorder, Seizure Disorder Additional Past Medical History / Comment(s): 07/2018 L lung cancer with left upper lobectomy/IV chemo but pt states he quit taking chemo early then diagnosed with R lower lobe cancer in August 2019 and had wedge resection and immunotherapy every 3 weeks, bronchitis, TIA and seizure after bronchoscopy in 2017, DVT L leg, IDDM type II, chronic cervical/back pain, diabetes mellitus, occasional bilateral ankle edema, BPH, chronic stage III kidney disease Last Myocardial Infarction Date:: 05/24/12 History of Any Multi-Drug Resistant Organisms: None Reported Past Surgical History: Back Surgery, Cholecystectomy, Heart Catheterization, Hernia Repair, Tonsillectomy Additional Past Surgical History / Comment(s): 2018 Bronchoscopy with bx, 2017 L upper lobectomy at [facility], August 2019 R lower lung wedge resection, low back surgery, 2011 cardiac cath-treat medically, umbilical hernia repair, bilateral cataract removals Past Anesthesia/Blood Transfusion Reactions: Previous Problems w/ Anesthesia Additional Past Anesthesia/Blood Transfusion Reaction / Comment(s): Seizure and mini stroke following lung biopsy Past Psychological History: Anxiety, Depression Smoking Status: Never smoker Past Alcohol Use History: None Reported Past Drug Use History: None Reported - Past Family History Mother Family Medical History: No Reported History Additional Family Medical History / Comment(s): Mother was healthy Father Family Medical History: Diabetes Mellitus Additional Family Medical History / Comment(s): Father of diabetes at the age of 83 yrs. Medications and Allergies Home Medications Medication Instructions Recorded Confirmed Type Simvastatin [Zocor] 40 mg PO DAILY 07/30/19 01/12/21 History amLODIPine [Norvasc] 10 mg PO HS 07/30/19 01/12/21 History levETIRAcetam [Keppra] 500 mg PO BID 07/30/19 01/12/21 History Metoprolol Tartrate 25 mg PO BID #60 tab 09/10/19 01/12/21 Rx Insulin Detemir [Levemir Flextouch] 75 units SQ HS 07/06/20 01/12/21 History Omeprazole 20 mg PO DAILY 07/06/20 01/12/21 History Levothyroxine Sodium [Synthroid] 25 mcg PO DAILY@0630 30 Days #30 07/08/20 01/12/21 Rx tab HYDROcodone/APAP 5-325MG [[place] 1 tab PO BID PRN 01/12/21 01/12/21 History 5-325] Ipratropium-Albuterol Nebulize 3 ml INHALATION RT-TID PRN 01/12/21 01/12/21 History [Duoneb 0.5 mg-3 mg/3 ml Soln] Rivaroxaban [Xarelto] 15 mg PO HS 01/12/21 01/12/21 History Solifenacin Succinate [Vesicare] 10 mg PO DAILY 01/12/21 01/12/21 History lisinopriL [Prinivil] 20 mg PO DAILY 01/12/21 01/12/21 History Allergies Allergy/AdvReac Type Severity Reaction Status Date / Time No Known Allergies Allergy Verified 01/12/21 11:53 Physical Exam Vitals: Vital Signs Temp Pulse Pulse Resp BP BP Pulse Ox 01/13/21 11:42 61 18 139/81 96 01/13/21 11:14 68 01/13/21 11:04 68 01/13/21 09:42 62 16 142/89 98 01/13/21 07:58 76 16 01/13/21 07:42 98.1 F 69 16 149/72 96 01/13/21 07:39 68 01/13/21 07:24 68 01/13/21 02:00 76 16 01/13/21 01:45 98.0 F 76 16 133/66 97 01/12/21 23:29 98.1 F 77 17 163/66 97 01/12/21 20:32 72 01/12/21 20:17 72 01/12/21 18:48 98.5 F 79 18 156/83 97 01/12/21 14:33 98.0 F 64 16 150/72 99 01/12/21 13:09 98.1 F 77 18 163/66 96 01/12/21 12:55 97.6 F 67 16 149/84 98 Intake and Output 01/12/21 01/13/21 01/13/21 22:59 06:59 14:59 Intake Total 600 180 Balance 600 180 Intake: Intake, IV Titration 600 Amount Sodium Chloride 0.9% 1, 600 000 ml @ 75 mls/hr IV . [id number] [facility] Rx#:[id number] Oral 180 Other: Voiding Method Toilet Toilet # Voids 2 2 GENERAL EXAM: Alert, active, comfortable in no apparent distress. HEAD: Normocephalic. EYES: Normal reaction of pupils, equal size. NOSE: Clear with pink turbinates. THROAT: No erythema or exudates. NECK: No masses, no JVD. CHEST: No chest wall deformity. LUNGS: Equal air entry with faint bilateral end expiratory wheeze, diminished. CVS: S1 and S2 normal with no audible murmur, regular rhythm. ABDOMEN: No hepatosplenomegaly, normal bowel sounds, no guarding or rigidity. SPINE: No scoliosis or deformity SKIN: No rashes CENTRAL NERVOUS SYSTEM: No focal deficits, tone is normal in all 4 extremities. EXTREMITIES: There is no peripheral edema. No clubbing, no cyanosis. Peripheral pulses are intact. Results - Laboratory Findings CBC and BMP: 01/12/21 10:13 01/12/21 10:13 PT/INR, D-dimer PT 13.7 sec (9.0-12.0) H 01/12/21 10:13 INR 1.3 (<1.2) H 01/12/21 10:13 Abnormal lab findings: Abnormal Labs 01/12/21 01/12/21 01/12/21 10:05 10:13 10:13 RBC 3.64 L Hgb 10.9 L Hct 32.5 L PT 13.7 H INR 1.3 H APTT 34.0 H Potassium Chloride Carbon Dioxide BUN Creatinine Glucose POC Glucose (mg/dL) 63 L Total Protein HDL Cholesterol 01/12/21 01/12/21 01/12/21 10:13 10:13 10:58 RBC Hgb Hct PT INR APTT Potassium 5.4 H Chloride 111 H Carbon Dioxide 20 L BUN 37 H Creatinine 1.60 H Glucose 69 L POC Glucose (mg/dL) 104 H Total Protein 6.1 L HDL Cholesterol 30 L 01/12/21 01/13/21 01/13/21 20:42 07:45 11:54 RBC Hgb Hct PT INR APTT Potassium Chloride Carbon Dioxide BUN Creatinine Glucose POC Glucose (mg/dL) 279 H 197 H 271 H Total Protein HDL Cholesterol - Diagnostic Findings Chest x-ray: image reviewed (Chronic changes, no acute pulmonary process) Assessment and Plan Assessment: 1 Acute TIA symptoms of left arm tingling and numbness, left face tingling, aphasia, recovered 2 Acute exacerbation of chronic obstructive pulmonary disease, FEV1 value of 47% of predicted 3 History of metastatic adenocarcinoma of the lung, currently receiving immunotherapy in the form of Keytruda. History of left upper lobe resection for non-small cell lung cancer, history of wedge resection of a pulmonary nodule in the right lung confirming metastatic disease with adenocarcinoma 4 History of DVT, left lower extremity, maintained on Xarelto 5 Diabetes mellitus 6 Hypertension 7 Hyperlipidemia 8 Chronic stage III kidney disease suspect secondary to diabetic nephropathy 9 Degenerative arthritis of the cervical spine 10 Chronic anemia Plan: The patient was seen and evaluated by Dr. Boyer CAT scan, chest x-ray and labs reviewed MRI of the brain is pending Continue COPD treatment with bronchodilators Initiate Medrol Dosepak Anticoagulated with Xarelto We will continue to follow and make further recommendations based on his clinical status I, the cosigning physician, performed a history & physical examination of the patient. Lungs sounds with bilateral end expiratory wheeze, diminished. Main taining good O2 saturations in the 90s on room air. I discussed the assessment and plan of care with my nurse practitioner, Nohemi Garcia. I attest to the above consultation as dictated by her. Time with Patient: Greater than 30
[2021-01-13] MEDS: methylPREDNISolone 4 MG TAB TAPER PO SCH (14:11)
--- NOTE | 2021-01-13 14:57 | P.PN ---
Subjective Progress Note Date: 01/13/21 75-year-old male with multiple medical conditions to include lung cancer on active chemo, COPD, CVA, coronary disease who presents to the emergency department with reported strokelike symptoms. Patient would not eat breakfast. States that he had sudden onset around 9:30 of left arm weakness and tingling numbness as well as left lower face below the lower lip tingling. Patient is unsure whether he had weakness in the left leg but no tingling numbness. Was also aphasic. EMS was called in an age performed by them was negative. Patient does have previous history of TIA. He is on Xarelto. Denies any missed doses. Patient is a diabetic. States he took his medications last night however does n ot take insulin in the morning. Patient ate anything. Denies any recent fevers or chills. No chest pain or shortness of breath. No other alleviating, precipitating or modifying factors. Patient is receiving biologic therapy for lung cancer patient is on treatment with Keytruda. Patient does have history of COPD does have some wheezing at this time. Patient's symptoms resolved after few minutes. Patient had a CT angiography of the head and neck which only showed 50% stenosis on the right side unchanged from the prior study left-sided there is some plaque. CT of the head did not show any acute stroke or hemorrhage. MRI will be obtained echocardiogram will be obtained along with a lipid panel for tomorrow neurology was consulted. Patient denied any known metastatic disease. Patient does have chronic kidney disease with baseline creatinine of around 1.6 his present creatinine is on that. Patient has hyperkalemia secondary to RAFAEL inhibitor which will be held and patient will be given a dose of Kayexalate. 01/13/2021 Patient is seen and evaluated in follow-up and currently awaiting to undergo MRI of the brain. Patient denies any left arm weakness and tingling and is speaking clearly. Patient is also maintained on breathing inhalational treatments. Pulmonary following and patient has been started on oral steroids. Labs are currently pending at this time. Patient is maintained on gentle IV hydration and will continue. 2-D echo was ordered and pending at this time. Neurology along with pulmonary following. PT/OT to evaluate the patient. Social work also following and working on possible placement and a consult to inpatient rehab was placed. Review of systems: Constitutional: No reports of fatigue, fever, or chills Cardiovascular: No reports of chest pain or palpitations Respiratory: No reports of shortness of breath or cough GI: No reports of nausea, vomiting, or diarrhea : No reports of dysuria or retention Neurovascular: Generalized weakness with occasional periods of numbness in the upper extremities All medications have been reviewed Objective - Vital Signs Vital signs: Vital Signs Temp 98.1 F 01/13/21 07:42 Pulse 62 01/13/21 09:42 Resp 16 01/13/21 09:42 BP 142/89 01/13/21 09:42 Pulse Ox 98 01/13/21 09:42 Intake & Output 01/12/21 01/13/21 01/13/21 18:59 06:59 18:59 Intake Total 600 600 180 Balance 600 600 180 Weight 86.183 kg Intake: Intake, IV Titration 600 600 Amount Sodium Chloride 0.9% 1, 600 600 000 ml @ 75 mls/hr IV . [id number] [facility] Rx#:[id number] Oral 180 Other: Voiding Method Toilet Toilet # Voids 2 2 2 - Exam GENERAL: The patient is alert and oriented x3, not in any acute distress. Well developed, well nourished. HEENT: Pupils are round and equally reacting to light. EOMI. No scleral icterus. No conjunctival pallor. Normocephalic, atraumatic. No pharyngeal erythema. No thyromegaly. CARDIOVASCULAR: S1 and S2 present. No murmurs, rubs, or gallops. PULMONARY: Chest is clear to auscultation, no wheezing or crackles. ABDOMEN: Soft, nontender, nondistended, normoactive bowel sounds. No palpable organomegaly. MUSCULOSKELETAL: No joint swelling or deformity. EXTREMITIES: No cyanosis, clubbing, or pedal edema. 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 - Labs CBC & Chem 7: 01/12/21 10:13 01/12/21 10:13 Labs: Abnormal Lab Results - Last 24 Hours (Table) 01/12/21 01/12/21 01/12/21 Range/Units 10:13 10:13 10:13 PT 13.7 H (9.0-12.0) sec INR 1.3 H (<1.2) APTT 34.0 H (22.0-30.0) sec Potassium 5.4 H (3.5-5.1) mmol/L Chloride 111 H (98-107) mmol/L Carbon Dioxide 20 L (22-30) mmol/L BUN 37 H (9-20) mg/dL Creatinine 1.60 H (0.66-1.25) mg/dL Glucose 69 L (74-99) mg/dL POC Glucose (mg/dL) (75-99) mg/dL Total Protein 6.1 L (6.3-8.2) g/dL HDL Cholesterol 30 L (40-60) mg/dL 01/12/21 01/12/21 01/13/21 Range/Units 10:58 20:42 07:45 PT (9.0-12.0) sec INR (<1.2) APTT (22.0-30.0) sec Potassium (3.5-5.1) mmol/L Chloride (98-107) mmol/L Carbon Dioxide (22-30) mmol/L BUN (9-20) mg/dL Creatinine (0.66-1.25) mg/dL Glucose (74-99) mg/dL POC Glucose (mg/dL) 104 H 279 H 197 H (75-99) mg/dL Total Protein (6.3-8.2) g/dL HDL Cholesterol (40-60) mg/dL Assessment and Plan Assessment: -Possible TIA: Involving the right middle cerebral artery territory probably ischemic in origin, 2-D echo pending. MRI of the brain shows age-related changes of atrophy and small vessel ischemic change chronic with some spinal stenosis suspected at the C1-C2 with no subacute ischemia evident -Hyperlipidemia: Secondary to chronic kidney disease and the lisinopril was stopped will be held patient will be given a dose of Kayexalate and the patient will be on low potassium diet along with cardiac diet. -Chronic kidney disease stage III probably from diabetic nephropathy. Awaiting repeat labs -History of an episode of for seizure last year when he was undergoing pneumonectomy for his lung cancer -Lung cancer patient is on biologic therapy with Keytruda. Unknown of any metastatic disease -COPD with mild acute exacerbation patient will be started on inhaled steroids inhalational treatments, pulmonary following -Hyperlipidemia -Hypertension -Hypothyroidism -Gastroesophageal reflux disease -History of DVT in the past for which patient is on Xarelto Plan: Continue with medical consultations. PT/OT to evaluate the patient for possible placement. Continue with neuro checks and neurology following. Awaiting repeat labs and will continue monitor kidney functions closely. Patient is maintained on gentle IV hydration. Social work following and will be working on possible placement.
[2021-01-13 16:37] LABS: African American GFR (CKD) 52 (>60 ml/min/1.73 sqM); Anion Gap 7 mmol/L; Blood Urea Nitrogen 31 mg/dL (9-20); Calcium 8.6 mg/dL (8.4-10.2); Carbon Dioxide 21 mmol/L (22-30); Chloride 108 mmol/L (98-107); Glucose 312 mg/dL (74-99); Non-African American GFR(CKD) 45 (>60 ml/min/1.73 sqM); Potassium 5.2 mmol/L (3.5-5.1); Sodium 136 mmol/L (137-145)
[2021-01-13 17:19] LABS: Hemoglobin A1C 8.2 % (4.0-6.0)
[2021-01-13 19:56] LABS: Glucose,Whole Blood 304 mg/dL (75-99)
[2021-01-13] MEDS: amLODIPine 10 MG TAB PO SCH (20:14)
[2021-01-13] MEDS: INSULIN DETEMIR (LEVEMIR) 100 UNIT/ML SYR SQ SCH (20:36)
[2021-01-13] MEDS: RIVAROXABAN 15 MG TAB PO SCH (20:37)
--- NOTE | 2021-01-13 23:40 | P.PN ---
Subjective Progress Note Date: 01/13/21 Patient was seen for a follow-up. Patient is laying comfortably in the bed. Offers no new complaints. Patient states that she had fell 3 times in the last week. He is also getting treatment with Keytruda once every 3 weeks since July 2020. Patient denies any numbness in the feet or legs. He does have some numbness in the right hand in the median nerve distribution. Objective - Vital Signs Vital signs: Vital Signs Temp 98.1 F 01/13/21 07:42 Pulse 68 01/13/21 14:35 Resp 16 01/13/21 14:35 BP 142/69 01/13/21 14:35 Pulse Ox 96 01/13/21 14:35 Intake & Output 01/12/21 01/13/21 01/13/21 18:59 06:59 18:59 Intake Total 600 600 180 Balance 600 600 180 Weight 86.183 kg Intake: Intake, IV Titration 600 600 Amount Sodium Chloride 0.9% 1, 600 600 000 ml @ 75 mls/hr IV . [id number] [facility] Rx#:[id number] Oral 180 Other: Voiding Method Toilet Toilet # Voids 2 2 1 - Exam On examination patient's mental status, speech and language functions are normal. Cranial nerves are all normal. Visual wright are full, face is symmetric, tongue protrudes to the midline. On muscle strength testing there is no pronator drift and the strength is normal in arms and legs distally and proximally, including hip flexion, hip adduction, hip abduction, knee extension, ankles and toes. Reflexes are 1+ in the upper limbs, 2+ at the knees, 1+ ankles and plantars downgoing. Sensory to touch is equal. No ataxia for finge r-to-nose testing. Tone and bulk of muscles normal. - Labs CBC & Chem 7: 01/14/21 05:17 01/14/21 05:17 Labs: Abnormal Lab Results - Last 24 Hours (Table) 01/12/21 01/12/21 01/12/21 Range/Units 10:13 10:13 20:42 Sodium (137-145) mmol/L Potassium (3.5-5.1) mmol/L Chloride (98-107) mmol/L Carbon Dioxide (22-30) mmol/L BUN (9-20) mg/dL Creatinine (0.66-1.25) mg/dL Glucose (74-99) mg/dL POC Glucose (mg/dL) 279 H (75-99) mg/dL Hemoglobin A1c 8.2 H (4.0-6.0) % HDL Cholesterol 30 L (40-60) mg/dL 01/13/21 01/13/21 01/13/21 Range/Units 07:45 11:54 15:47 Sodium 136 L (137-145) mmol/L Potassium 5.2 H (3.5-5.1) mmol/L Chloride 108 H (98-107) mmol/L Carbon Dioxide 21 L (22-30) mmol/L BUN 31 H (9-20) mg/dL Creatinine 1.52 H (0.66-1.25) mg/dL Glucose 312 H (74-99) mg/dL POC Glucose (mg/dL) 197 H 271 H (75-99) mg/dL Hemoglobin A1c (4.0-6.0) % HDL Cholesterol (40-60) mg/dL Assessment and Plan Assessment: * Probable TIA manifesting with speech difficulty, left arm weakness and inability to stand up. Symptoms resolved in 30 minutes. Current examination is nonfocal. * CTA revealed moderate to severe plaque at the origin of proximal ICA bilaterally, greater on the right with 50% stenosis on the right. * COPD * Diabetes * Hypertension * Lung cancer, on chemotherapy. * X tobacco use. Plan: * MRI of the brain revealed no acute stroke. Some small vessel disease. * 2-D echo still pending. * Patient states that he does follow up with Dr. Castro about his carotid stenosis. * Patient has been on Xarelto and aspirin 81 mg daily. We will increase aspirin to 162 mg daily. * Patient's hemoglobin A1c is 8.2. Suggest optimizing control of diabetes to target A1c <7.0. * Patient's last lipid panel from 07/29/2020 shows cholesterol 90, LDL 46, HDL 26 and triglycerides 89. Continue Zocor 40 mg. * Patient has developed new onset numbness in the right hand in median nerve distribution. Suggest EMG and nerve conduction study of right upper and right lower extremity to evaluate for CTS, rule out peripheral neuropathy as a cause of patient's gait imbalance and falls. * Patient may go for rehab versus home with PT. Addendum: 2-D echo revealed moderate concentric LVH, EF is 55-60%. Left atrium is moderately dilated. Mild to moderate MR and TR.
[2021-01-14 03:58] VITALS: TEMP 98.2
[2021-01-14] MEDS: LEVOTHYROXINE 25 MCG TAB PO SCH (05:24)
[2021-01-14 05:59] LABS: Basophils % (A) 0 %; Eosinophils % (A) 0 %; HCT 28.7 % (39.0-53.0); HGB 9.7 gm/dL (13.0-17.5); Lymphocytes # (A) 0.3 k/uL (1.0-4.8); Lymphocytes % (A) 5 %; MCHC 33.7 g/dL (31.0-37.0); MCV 89.1 fL (80.0-100.0); Mean Platelet Volume 7.4; Monocytes # (A) 0.1 k/uL (0-1.0); Monocytes % (A) 2 %; Neutrophils # (A) 5.8 k/uL (1.3-7.7); Neutrophils % (A) 92 %; Platelet Count 160 k/uL (150-450); RBC 3.22 m/uL (4.30-5.90); RDW 14.2 % (11.5-15.5); WBC 6.3 k/uL (3.8-10.6)
[2021-01-14 06:23] LABS: African American GFR (CKD) 50 (>60 ml/min/1.73 sqM); Anion Gap 8 mmol/L; Blood Urea Nitrogen 31 mg/dL (9-20); Calcium 8.8 mg/dL (8.4-10.2); Carbon Dioxide 19 mmol/L (22-30); Chloride 109 mmol/L (98-107); Glucose 352 mg/dL (74-99); Non-African American GFR(CKD) 43 (>60 ml/min/1.73 sqM); Potassium 5.4 mmol/L (3.5-5.1); Sodium 136 mmol/L (137-145)
[2021-01-14 07:13] VITALS: RESP 20
[2021-01-14 07:18] VITALS: BP 151/70
[2021-01-14] MEDS: IPRATROPIUM-ALBUTEROL 3 ML NEB INHALATION PRN ×2 (07:23→11:05)
[2021-01-14] MEDS: BUDESONIDE 0.5 MG/2 ML NEBU INHALATION SCH (07:23)
--- NOTE | 2021-01-14 07:31 | ECHOF ---
Referral Reason:TIA MEASUREMENTS -------- HEIGHT: 185.4 cm WEIGHT: 86.2 kg BP: 133/66 RVIDd: 3.6 cm (< 3.3) IVSd: 1.4 cm (0.6 - 1.1) LVIDd: 4.5 cm (3.9 - 5.3) LVPWd: 1.5 cm (0.6 - 1.1) IVSs: 2.0 cm LVIDs: 3.0 cm LVPWs: 1.9 cm LAESV Index (A-L): 35.13 ml/m Ao Diam: 3.9 cm (2.0 - 3.7) AV Cusp: 1.9 cm (1.5 - 2.6) LA Diam: 4.3 cm (2.7 - 3.8) MV EXCURSION: 21.730 mm (> 18.000) MV EF SLOPE: 116 mm/s (70 - 150) EPSS: 1.4 cm MV E Vincent: 1.15 m/s MV DecT: 213 ms MV A Vincent: 1.25 m/s MV E/A Ratio: 0.91 RAP: 5.00 mmHg RVSP: 46.10 mmHg FINDINGS -------- Sinus rhythm. This was a technically adequate study. The left ventricular size is normal. There is moderate concentric left ventricular hypertrophy. O verall left ventricular systolic function is normal with, an EF between 55 - 60 %. The right ventricle is mildly enlarged. LA is moderately dilated 34-39 ml/m2 The right atrium is mildly enlarged. Interatrial and interventricular septum intact. There is mild aortic valve sclerosis. There is no evidence of aortic regurgitation. There is no e vidence of aortic stenosis. The mitral valve leaflets are mildly thickened. Jfbo-xi-fbggbpoo mitral regurgitation is present. Djat-mf-xpnfrens tricuspid regurgitation present. There is moderate pulmonary hypertension. The r ight ventricular systolic pressure, as measured by Doppler, is 46.10mmHg. There is no pulmonic regurgitation present. The aortic root size is normal. Normal inferior vena cava with normal inspiratory collapse consistent with estimated right atrial pre ssure of 5 mmHg. There is no pericardial effusion. CONCLUSIONS -------- 1. There is moderate concentric left ventricular hypertrophy. 2. Overall left ventricular systolic function is normal with, an EF between 55 - 60 %. 3. The right ventricle is mildly enlarged. 4. LA is moderately dilated 34-39 ml/m2 5. The right atrium is mildly enlarged. 6. There is mild aortic valve sclerosis. 7. Mhnl-nz-vfgguouw mitral regurgitation is present. 8. Agpd-op-fbempmke tricuspid regurgitation present. 9. There is moderate pulmonary hypertension. 10. There is no pericardial effusion. MATERIALS AND CORROSION ENGINEER: Pratibha Puente RDCS
[2021-01-14 07:50] LABS: Glucose,Whole Blood 336 mg/dL (75-99)
[2021-01-14] MEDS: INSULIN ASPART (NovoLOG) 100 UNIT/ML VIAL SQ SCH ×2 (08:27→12:57)
[2021-01-14] MEDS: levETIRAcetam 500 MG TAB PO SCH (08:28)
[2021-01-14] MEDS: ATORVASTATIN 20 MG TAB PO SCH (08:29)
[2021-01-14] MEDS: methylPREDNISolone 4 MG TAB TAPER PO SCH (08:29)
[2021-01-14] MEDS: METOPROLOL TARTRATE 25 MG TAB PO SCH (08:29)
[2021-01-14] MEDS: PANTOPRAZOLE 40 MG TABLET PO SCH (08:29)
[2021-01-14] MEDS: TROSPIUM CHLORIDE 20 MG TABLET PO SCH (08:30)
[2021-01-14] MEDS: ASPIRIN 81 MG PO SCH (08:36)
[2021-01-14] MEDS: SODIUM CHLORIDE 0.9% 1,000 ML IV SCH (09:17)
[2021-01-14] MEDS ORDERED: INSULIN ASPART (NovoLOG) 100 UNIT/ML VIAL SQ ONE (10:46)
[2021-01-14 11:07] VITALS: PULSE 88
--- NOTE | 2021-01-14 11:12 | CDI ---
Documentation Clarification Form Date: 01/14/2021 10:21:58 AM From: Rosio Polo RN, CCDS Admit Date: 01/13/2021 03:44:00 PM Patient Name: Isrrael Torres Visit Number: [id number] Discharge Date: ATTENTION: The Clinical Documentation Specialists (CDI) and [facility] Coding Staff appreciate your assistance in clarifying documentation. Please respond to the clarification below the line at the bottom and electronically sign. The CDI & [facility] Coding staff will review the response and follow-up if needed. Please note: Queries are made part of the Legal Health Record. If you have any questions, please contact the author of this message via ITS. Dr. Carl Riley The patient has the documented diagnosis of TIA and moderate to severe plaque at the origin of proximal ICA bilaterally, greater on the right with 50% stenosis on the right documented in your notes dated 01/12/21. A relationship between diagnoses cannot be assumed unless documented as such by the attending physician. In order to capture the severity of condition; please document the relationship, if any, between these diagnoses. History/Risk Factors: Diabetes Mellitus, Hypertension, Seizure disorder, Coronary artery disease Clinical Indicators: [id number] present to ED on 01/12 with complaints of numbness of the left hand that extended to the right hand and perioral region. He couldn't stand or speak. His overall symptoms lasted about 30 minutes. 01/12 Vital signs on arrival: 152/83 68 18 98.1 01/12 Labs: HGB 10.9, HCT 32.5, BUN 37 CR 1.60, cholesterol 90 LDL 46, HGL 26, Triglycerides 89 CTA of head/neck: Moderate to severe plaque to region of proximal internal carotid arteries bilaterally greater on the right. The stenosis near 50 % on the right unchanged from prior study. 01/13 Brain MRI: Age-related changes of atrophy and chromic small vessel ischemic changes. Some spinal stenosis suspected at C1-C2. Treatment: ASA 162 mg po daily Lipitor 20 mg po daily Lopressor 25 mg po bid Xarelto 15 mg po hs Optimizing control of diabetes t to target ALc <7.0 EMG study Please clarify and document your clinical opinion in the progress notes if any relationship (due to, caused by, secondary to) exists between these two diagnoses. Please include clinical findings supporting your diagnosis. TIA due to carotid artery stenosis TIA due to (other, specify) Other explanation of clinical findings (please specify) Unable to determine (no explanation for clinical findings) (Last Revision: August 2017) TIA, probably due to atherosclerotic cerebrovascular disease. CTA showed moderate to severe plaque proximal ICA bilaterally, greater on the right approaching 50% on the right. Vascular risk factors include diabetes, hypertension X tobacco use Aspirin increased from 81 mg to 162 mg. Continue Xarelto. Carl Riley MD [facility]
[2021-01-14 11:43] LABS: Glucose,Whole Blood 252 mg/dL (75-99)
--- NOTE | 2021-01-14 13:05 | P.DS ---
Providers Date of admission: 01/13/21 15:44 Expected date of discharge: 01/14/21 Attending physician: Omega Bruno Consults: 01/12/21 12:41 Consult Physician Urgent Consulting Provider: Carl Riley Consult Reason/Comments: acute left sided weakness, possible tia Do you want consulting provider notified?: Yes 01/12/21 16:32 Consult Physician Routine Consulting Provider: Renzo Boyer Consult Reason/Comments: COPD Do you want consulting provider notified?: Yes 01/13/21 09:27 Consult Physician Routine Consulting Provider: Antony Amaro Consult Reason/Comments: possible inpatient rehab Do you want consulting provider notified?: Yes Primary care physician: Renzo Boyer Hospital Course: Final Diagnosis -Possible TIA: Involving the right middle cerebral artery territory probably ischemic in origin -Hyperlipidemia: Secondary to chronic kidney disease and the lisinopril -Chronic kidney disease stage III probably from diabetic nephropathy -History of an episode of for seizure last year when he was undergoing pneumonectomy for his lung cancer -Lung cancer patient is on biologic therapy with Keytruda. Unknown of any metastatic disease -COPD with mild acute exacerbation -Hyperlipidemia -Hypertension -Hypothyroidism -Gastroesophageal reflux disease -History of DVT in the past for which patient is on Xarelto Discharge disposition Patient is being discharged in a stable condition with guarded prognosis to home. Patient will follow-up with Dr. Boyer in the outpatient setting upon discharge. Patient will also follow-up with neurology outpatient for further EMG testing. Patient also follow-up with oncology Total time taken is greater than 35 minutes. Hospital course 75-year-old male with multiple medical conditions to include lung cancer on active chemo, COPD, CVA, coronary disease who presents to the emergency department with reported strokelike symptoms. Patient would not eat breakfast. States that he had sudden onset around 9:30 of left arm weakness and tingling numbness as well as left lower face below the lower lip tingling. Patient is unsure whether he had weakness in the left leg but no tingling numbness. Was also aphasic. EMS was called in an age performed by them was negative. Patient does have previous history of TIA. He is on Xarelto. Denies any missed doses. Patient is a diabetic. States he took his medications last night however does not take insulin in the morning. Patient ate anything. Denies any recent fevers or chills. No chest pain or shortness of breath. No other alleviating, precipitating or modifying factors. Patient is receiving biologic therapy for lung cancer patient is on treatment with Keytruda. Patient does have history of COPD does have some wheezing at this time. Patient's symptoms resolved after few minutes. Patient had a CT angiography of the head and neck which only showed 50% stenosis on the right side unchanged from the prior study left-sided there is some plaque. CT of the head did not show any acute stroke or hemorrhage. MRI will be obtained echocardiogram will be obtained along with a lipid panel for tomorrow neurology was consulted. Patient denied any known metastatic disease. Patient does have chronic kidney disease with baseline creatinine of around 1.6 his present creatinine is on that. Patient has hyperkalemia secondary to RAFAEL inhibitor which will be held and patient will be given a dose of Kayexalate. 01/13/2021 Patient is seen and evaluated in follow-up and currently awaiting to undergo MRI of the brain. Patient denies any left arm weakness and tingling and is speaking clearly. Patient is also maintained on breathing inhalational treatments. Pulmonary following and patient has been started on oral steroids. Labs are currently pending at this time. Patient is maintained on gentle IV hydration and will continue. 2-D echo was ordered and pending at this time. Neurology along with pulmonary following. PT/OT to evaluate the patient. Social work also following and working on possible placement and a consult to inpatient rehab was placed. 01/14/2021 Patient is seen in follow-up this morning with no acute overnight issues. Patient was seen and evaluated by neurology recommending outpatient neurology follow-up for further EMG testing. Patient's MRI was negative for any acute infarct. Patient was seen and evaluated by PT/OT therapy doing well and will require a walker for gait dysfunction and unsteadiness. Patient will continue on a Medrol Dosepak upon discharge and follow-up in the outpatient setting. Patient also instructed to continue to monitor blood sugars before meals and at bedtime and keep a diary for primary care follow-up. Patient to continue with the consistent carb heart healthy diet. Currently no reports of chest pain, shortness of breath, or palpitations. Patient is afebrile. No reports of nausea or vomiting and patient is tolerating diet. Patient will be discharged home today On exam vital signs are stable. Cardio S1, S2 are muffled. Respiratory system shows diminished breath sounds at the bases with no wheezing or rhonchi noted. Abdomen is soft and obese, and nontender. Nervous system shows diffuse weakness. Please refer to medication reconciliation sheet for a list of medications. Patient Condition at Discharge: Stable Plan - Discharge Summary Discharge Rx Participant: No New Discharge Prescriptions: New Aspirin 162 mg PO DAILY 30 Days #30 chew methylPREDNISolone Dose Pack [Medrol Dose Pack] 4 mg PO DIRECTED #21 package Continue Simvastatin [Zocor] 40 mg PO DAILY amLODIPine [Norvasc] 10 mg PO HS levETIRAcetam [Keppra] 500 mg PO BID Metoprolol Tartrate 25 mg PO BID #60 tab Omeprazole 20 mg PO DAILY Insulin Detemir [Levemir Flextouch] 75 units SQ HS Levothyroxine Sodium [Synthroid] 25 mcg PO DAILY@30 30 Days #30 tab HYDROcodone/APAP 5-325MG [[place] 5-325] 1 tab PO BID PRN PRN Reason: Pain Rivaroxaban [Xarelto] 15 mg PO HS Ipratropium-Albuterol Nebulize [Duoneb 0.5 mg-3 mg/3 ml Soln] 3 ml INHALATION RT-TID PRN PRN Reason: Shortness Of Breath Solifenacin Succinate [Vesicare] 10 mg PO DAILY Discontinued lisinopriL [Prinivil] 20 mg PO DAILY Discharge Medication List Simvastatin [Zocor] 40 mg PO DAILY 07/30/19 [History] amLODIPine [Norvasc] 10 mg PO HS 07/30/19 [History] levETIRAcetam [Keppra] 500 mg PO BID 07/30/19 [History] Metoprolol Tartrate 25 mg PO BID #60 tab 09/10/19 [Rx] Insulin Detemir [Levemir Flextouch] 75 units SQ HS 07/06/20 [History] Omeprazole 20 mg PO DAILY 07/06/20 [History] Levothyroxine Sodium [Synthroid] 25 mcg PO DAILY@0630 30 Days #30 tab 07/08/20 [Rx] HYDROcodone/APAP 5-325MG [[place] 5-325] 1 tab PO BID PRN 01/12/21 [History] Ipratropium-Albuterol Nebulize [Duoneb 0.5 mg-3 mg/3 ml Soln] 3 ml INHALATION RT-TID PRN 01/12/21 [History] Rivaroxaban [Xarelto] 15 mg PO HS 01/12/21 [History] Solifenacin Succinate [Vesicare] 10 mg PO DAILY 01/12/21 [History] Aspirin 162 mg PO DAILY 30 Days #30 chew 01/14/21 [Rx] methylPREDNISolone Dose Pack [Medrol Dose Pack] 4 mg PO DIRECTED #21 package 01/14/21 [Rx] Follow up Appointment(s)/Referral(s): Renzo Boyer MD [Primary Care Provider] - 01/20/21 10:30 am [facility], [NON-STAFF] - 1-2 Days [employer] [employer] [facility] [NON-STAFF] - As Needed (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
--- NOTE | 2021-01-14 14:55 | P.PN ---
Subjective Progress Note Date: 01/14/21 Principal diagnosis: Acute TIA. This a very pleasant 75-year-old gentleman who follows with Dr. Boyer as his primary care provider. He has a history of COPD, CVA/TIA, diabetes Vasile, DVT maintained on Xarelto, hyperlipidemia, hypertension, myocardial infarction, osteoarthritis, seizure disorder. He also has a history of left lung cancer with left upper lobectomy/IV chemotherapy and also diagnosed with a right lower lobe lung cancer in 2019 status post wedge resection. He remains on Keytruda. No known metastasis to the brain. Early yesterday morning he developed a sudden onset of left arm weakness tingling and numbness as well as left lower face below the lower lip with tingling and numbness. He is also having difficulty with aphasia. EMS was called and he is brought into the emergency room for the same. He states he started feeling better even and Route. He is seen today in consultation on the regular medical floor. He is currently sitting up in in bed. Awake and alert in no acute distress. He denies any ongoing issues with left arm tingling or numbness. Speaking clearly. On room air. Computed tomography scan of the brain revealed no acute abnormalities, there is noted moderate diffuse age-related cerebral atrophy and chronic small vessel changes. Chest x-ray revealed evidence of chronic changes but no acute pulmonary process. CT angiogram revealed moderate to severe plaque at the origin of the paroxysmal internal carotid arteries bilaterally greater on the right. Stenosis 50% unchanged. No significant stenosis or aneurysm of the [place]. MRI of the brain is pending. White count 7.1. Hemoglobin 10.9. INR 1.3. Sodium 140. Potassium 5.4. Creatinine 1.60. Blood glucose 271. Troponin negative 1. Dixon virus not detected. Patient was reevaluated today on 01/14/2021, patient seems to be doing well today, relatively asymptomatic, workup has been mostly nondiagnostic, patient is being discharged home today. Patient will continue Xarelto which she has been taking all along pulmonary-ritter, patient is doing great, relatively asymptomatic. Patient was placed on Keppra by neurology. Objective - Vital Signs Vital signs: Vital Signs Temp 98.2 F 01/14/21 07:12 Pulse 88 01/14/21 11:14 Resp 20 01/14/21 08:00 BP 151/70 01/14/21 07:12 Pulse Ox 96 01/14/21 07:12 Intake & Output 01/13/21 01/14/21 01/14/21 18:59 06:59 18:59 Intake Total 180 360 Balance 180 360 Intake: Oral 180 360 Other: Voiding Method Toilet Toilet Toilet # Voids 1 2 3 - Exam GENERAL EXAM: Revealed 75-year-old pleasant, in no distress. HEAD: Normocephalic. EENT: PERRLA, EOMI, nonicteric. Moist mucous membranes, throat is clear. NECK: No masses, no JVD. CHEST: No chest wall deformity. LUNGS: Equal air entry with faint bilateral end expiratory wheeze, diminished. CVS: S1 and S2 normal with no audible murmur, regular rhythm. ABDOMEN: No hepatosplenomegaly, normal bowel sounds, no guarding or rigidity. Musculoskeletal: No deformities, no limitation in range of motion SKIN: No rashes CENTRAL NERVOUS SYSTEM: Oriented 3 focal deficits. Psychiatric: Normal mood affect and normal mental status examination. EXTREMITIES: No clubbing edema or cyanosis. - Labs CBC & Chem 7: 01/14/21 05:17 01/14/21 05:17 Labs: Abnormal Lab Results - Last 24 Hours (Table) 01/12/21 01/13/21 01/13/21 Range/Units 10:13 15:47 19:54 RBC (4.30-5.90) m/uL Hgb (13.0-17.5) gm/dL Hct (39.0-53.0) % Lymphocytes # (1.0-4.8) k/uL Sodium 136 L (137-145) mmol/L Potassium 5.2 H (3.5-5.1) mmol/L Chloride 108 H (98-107) mmol/L Carbon Dioxide 21 L (22-30) mmol/L BUN 31 H (9-20) mg/dL Creatinine 1.52 H (0.66-1.25) mg/dL Glucose 312 H (74-99) mg/dL POC Glucose (mg/dL) 304 H (75-99) mg/dL Hemoglobin A1c 8.2 H (4.0-6.0) % 01/14/21 01/14/21 01/14/21 Range/Units 05:17 05:17 07:24 RBC 3.22 L (4.30-5.90) m/uL Hgb 9.7 L (13.0-17.5) gm/dL Hct 28.7 L (39.0-53.0) % Lymphocytes # 0.3 L (1.0-4.8) k/uL Sodium 136 L (137-145) mmol/L Potassium 5.4 H (3.5-5.1) mmol/L Chloride 109 H (98-107) mmol/L Carbon Dioxide 19 L (22-30) mmol/L BUN 31 H (9-20) mg/dL Creatinine 1.57 H (0.66-1.25) mg/dL Glucose 352 H (74-99) mg/dL POC Glucose (mg/dL) 336 H (75-99) mg/dL Hemoglobin A1c (4.0-6.0) % 01/14/21 Range/Units 11:40 RBC (4.30-5.90) m/uL Hgb (13.0-17.5) gm/dL Hct (39.0-53.0) % Lymphocytes # (1.0-4.8) k/uL Sodium (137-145) mmol/L Potassium (3.5-5.1) mmol/L Chloride (98-107) mmol/L Carbon Dioxide (22-30) mmol/L BUN (9-20) mg/dL Creatinine (0.66-1.25) mg/dL Glucose (74-99) mg/dL POC Glucose (mg/dL) 252 H (75-99) mg/dL Hemoglobin A1c (4.0-6.0) % Assessment and Plan Assessment: 1 Acute TIA symptoms of left arm tingling and numbness, left face tingling, aphasia, recovered 2 Acute exacerbation of chronic obstructive pulmonary disease, FEV1 value of 47% of predicted 3 History of metastatic adenocarcinoma of the lung, currently receiving immunotherapy in the form of Keytruda. History of left upper lobe resection for non-small cell lung cancer, history of wedge resection of a pulmonary nodule in the right lung confirming metastatic disease with adenocarcinoma 4 History of DVT, left lower extremity, maintained on Xarelto 5 Diabetes mellitus 6 Hypertension 7 Hyperlipidemia 8 Chronic stage III kidney disease suspect secondary to diabetic nephropathy 9 Degenerative arthritis of the cervical spine 10 Chronic anemia Recommendation: Agree with discharge planning Agree with the recommendations as per neurology. Continue bronchodilators for his underlying COPD. Medrol Dosepak. Continue Xarelto. Follow-up on outpatient basis. Time with Patient: Less than 30
[2021-01-14] MEDS ORDERED: INSULIN DETEMIR (LEVEMIR) 100 UNIT/ML SYR SQ SCH (21:00)
== END 2021-01-14 14:21 | disposition home health service (06) | DRG 69 ==
LOC: EC 10:02 → 3SCARD 12:40 → 6NMEDSUR 14:11 → OBSVTOIN 01-13 15:44
PROVIDERS: ADMIT Internal Medicine; ATTEND Internal Medicine
DX: G45.9 Transient cerebral ischemic attack, unspecified (principal); J44.1 Chronic obstructive pulmonary disease with (acute) exacerbation; R47.01 Aphasia; C34.31 Malignant neoplasm of lower lobe, right bronchus or lung; Z86.73 Personal history of transient ischemic attack (TIA), and cerebral infarction without residual deficits; Z79.01 Long term (current) use of anticoagulants; Z79.4 Long term (current) use of insulin; I25.10 Atherosclerotic heart disease of native coronary artery without angina pectoris; E78.5 Hyperlipidemia, unspecified; I25.2 Old myocardial infarction; G40.909 Epilepsy, unspecified, not intractable, without status epilepticus; Z83.3 Family history of diabetes mellitus; R29.702 NIHSS score 2; E11.649 Type 2 diabetes mellitus with hypoglycemia without coma; E11.22 Type 2 diabetes mellitus with diabetic chronic kidney disease; I12.9 Hypertensive chronic kidney disease with stage 1 through stage 4 chronic kidney disease, or unspecified chronic kidney disease; T46.4X5A Adverse effect of angiotensin-converting-enzyme inhibitors, initial encounter; E87.5 Hyperkalemia; Z86.718 Personal history of other venous thrombosis and embolism; M19.90 Unspecified osteoarthritis, unspecified site; N40.0 Benign prostatic hyperplasia without lower urinary tract symptoms; N18.30 Chronic kidney disease, stage 3 unspecified; Z90.49 Acquired absence of other specified parts of digestive tract; Z90.2 Acquired absence of lung [part of]; E03.9 Hypothyroidism, unspecified; K21.9 Gastro-esophageal reflux disease without esophagitis; M47.812 Spondylosis without myelopathy or radiculopathy, cervical region; D64.9 Anemia, unspecified; Z92.21 Personal history of antineoplastic chemotherapy; Z87.891 Personal history of nicotine dependence; Z79.899 Other long term (current) drug therapy; Z79.82 Long term (current) use of aspirin; R26.9 Unspecified abnormalities of gait and mobility; Z79.890 Hormone replacement therapy; H53.40 Unspecified visual field defects; Z20.828 Contact with and (suspected) exposure to other viral communicable diseases; I66.01 Occlusion and stenosis of right middle cerebral artery
CPT/HCPCS: 36415; 70450; 70496; 70498; 70551; 71046; 80048; 80053; 80061; 83036; 84484; 85025; 85610; 85730; 87635; 93005; 93306; 94640; 96374; 99291

== ENCOUNTER → 2021-01-19 | Outpatient (CLI) | payer MEDICARE, OTHER ==
--- NOTE | 2021-01-19 13:17 | CT ---
EXAMINATION TYPE: CT ChestAbdPelvis wo con DATE OF EXAM: 01/19/2021 COMPARISON: Prior CT September 10, 2020 and older studies. HISTORY: Lung cancer left sided, Observation for mets CT DLP: 1332 mGycm. Automated Exposure Control for Dose Reduction was Utilized. TECHNIQUE: CT scan of the thorax, abdomen and pelvis is performed with oral but without IV contrast. FINDINGS: LUNGS: Left-sided volume loss with bilateral mild to moderate underlying emphysematous change and mil d scattered parenchymal scarring again seen. Fairly stable 1.1 x 0.8 cm anterior right upper lung sca r like opacity axial image 26 from several prior studies. Some tree-in-bud opacities anterior to this axial image 23 unchanged from 2017 study. Additional scattered tree-in-bud type opacities unchanged from most recent study. Stable 4 mm pulmonary nodule lateral left upper lobe (4:28) is unchanged. Sca ttered additional micronodules unchanged. No recurrent nodules left infrahilar region. MEDIASTINUM: There are no greater than 1 cm hilar or mediastinal lymph nodes. No cardiomegaly or pe ricardial effusion is seen. Coronary artery calcifications are redemonstrated. OTHER: Small degree of bilateral subareolar gynecomastia again seen. LIVER/GB: Cholecystectomy clips redemonstrated. PANCREAS: Uzodawbf-zq-fhhzhm generalized fat replaced atrophy redemonstrated. SPLEEN: No significant abnormality is seen. ADRENALS: No significant abnormality is seen. KIDNEYS: Nonspecific perinephric fluid and fat stranding again seen. Prominent retroperitoneal fat re demonstrated. BOWEL: Oral contrast has not reached level terminal ileum making evaluation distal bowel slightly sub optimal. No suspicious small or large bowel dilatation. A few scattered distal colonic diverticula. M ild to moderate diffuse colonic fecal prominence GENITAL ORGANS: Enlarged prostate consistent with BPH redemonstrated. LYMPH NODES: No greater than 1cm abdominal or pelvic lymph nodes are appreciated. OSSEOUS STRUCTURES: Thqntubd-hn-cxwkhf disc space narrowing L4-L5 level with vacuum disc phenomenon. Sclerotic L4 lesion presumed benign bone island redemonstrated unchanged from prior studies.. Facet a rthropathy lower lumbar levels. OTHER: Moderate to severe calcified plaque infrarenal abdominal aorta extends into branch vessels. Fo arslan skin thickening and subcutaneous edema suspected scar over the anterior right pelvic wall unchang ed from prior study. IMPRESSION: No new or enlarging mass or adenopathy identified to suggest active neoplastic recurrence .
== END ==
LOC: RADCTMAIN 10:22
PROVIDERS: ATTEND Internal Medicine Hematology & Oncology
DX: C34.92 Malignant neoplasm of unspecified part of left bronchus or lung (principal)
CPT/HCPCS: 36415; 71250; 74176; 82565; 84520

== ENCOUNTER → 2021-04-11 | Outpatient (CLI) | payer MEDICARE, OTHER ==
--- NOTE | 2021-04-11 14:47 | CT ---
EXAMINATION TYPE: CT ChestAbdPelvis wo con DATE OF EXAM: 04/11/2021 COMPARISON: Most recent CT January 19, 2021 and older CTs HISTORY: Lung cancer left sided. CT DLP: 778.6 mGycm. Automated Exposure Control for Dose Reduction was Utilized. TECHNIQUE: CT scan of the thorax, abdomen and pelvis is performed with oral but without IV contrast. FINDINGS: LUNGS: Background mild to moderate underlying emphysematous change redemonstrated. Background Left-si ded volume loss and mild scattered parenchymal scarring again seen. Stable lower Slightly more promin ent 1.5 x 1.0 cm cm anterior right upper lung scar like opacity axial image 25 from several prior walker dies. Faint tree-in-bud opacities superior lateral to this axial image 21: Study unchanged from prior studies. Tree-in-bud opacities right lung base on axial image 50 are new from prior study with new 5 mm right lower lobe nodule axial image 51 and new 8 x 4 mm nodule near this axial image 50. New 5 mm nodule axial image 52. Mild linear scarring in both bases redemonstrated. Stable 4 mm pulmonary nodu le lateral left upper lobe (4:23) is unchanged. Some tree-in-bud opacities near this level extending posteriorly and inferiorly remain present but stable. Elevated left hemidiaphragm redemonstrated. MEDIASTINUM: There are no greater than 1 cm hilar or mediastinal lymph nodes. No cardiomegaly or pe ricardial effusion is seen. Coronary artery calcifications are redemonstrated. OTHER: Small degree of bilateral subareolar gynecomastia again seen. LIVER/GB: Cholecystectomy clips redemonstrated. PANCREAS: Rcdcsjkx-bl-nmmhqe generalized fat replaced atrophy redemonstrated. SPLEEN: No significant abnormality is seen. ADRENALS: No significant abnormality is seen. KIDNEYS: Nonspecific perinephric fluid and fat stranding again seen. Prominent retroperitoneal fat re demonstrated. No renal calculi or hydronephrosis BOWEL: Oral contrast has not reached level terminal ileum making evaluation distal bowel suboptimal s imilar to prior. No suspicious small or large bowel dilatation. A few scattered distal colonic divert icula. Mild to moderate diffuse colonic fecal prominence remains present. GENITAL ORGANS: Enlarged prostate consistent with BPH redemonstrated. LYMPH NODES: No greater than 1cm abdominal or pelvic lymph nodes are appreciated. OSSEOUS STRUCTURES: Nhskqezw-sf-hwtefo disc space narrowing L4-L5 level with vacuum disc phenomenon. Moderate disc space narrowing L5-S1 level. Sclerotic L4 lesion presumed benign bone island redemonstr ated unchanged from prior studies. Facet arthropathy lower lumbar levels. Spinous process resection L 5 level again seen. OTHER: Moderate to severe calcified plaque infrarenal abdominal aorta extends into branch vessels. Fo [place]slan skin thickening and subcutaneous edema suspected scar over the anterior right pelvic wall near ax ial image 94 is unchanged from prior study. IMPRESSION: The 1.5 cm scarlike opacity or spiculated nodule right upper lung stable or slightly mor e prominent from most recent CT. Scattered tree-in-bud opacities bilaterally redemonstrated. New luis e-in-bud focus right lung base with small right basilar nodules noted. Short-term CT follow-up advise d as neoplastic progression cannot be excluded.
== END | disposition home or self-care (01) ==
LOC: RADCTMAIN 12:10
PROVIDERS: ATTEND Internal Medicine Hematology & Oncology
DX: Z03.89 Encounter for observation for other suspected diseases and conditions ruled out (principal); C34.12 Malignant neoplasm of upper lobe, left bronchus or lung; R91.8 Other nonspecific abnormal finding of lung field
CPT/HCPCS: 71250; 74176; 82565; 84520

== ENCOUNTER → 2021-04-21 | Outpatient (CLI) | payer MEDICARE, OTHER | END | disposition home or self-care (01) | LOC: LABWHC1 15:07 | PROVIDERS: ATTEND Internal Medicine | DX: E87.5 Hyperkalemia (principal) | CPT/HCPCS: 36415; 84132 ==

== ENCOUNTER → 2021-04-28 | Outpatient (CLI) | payer MEDICARE, OTHER ==
--- NOTE | 2021-04-28 14:20 | US ---
EXAMINATION TYPE: US kidneys/renal and bladder DATE OF EXAM: 04/28/2021 COMPARISON: CT 04/11/2021 & US 05/05/2010 CLINICAL HISTORY: R94.5 Abnormal LFT. Pt states abnormal renal labs EXAM MEASUREMENTS: Right Kidney: 10.0 x 5.1 x 5.1 cm Left Kidney: 11.1 x 5.8 x 4.4 cm Right Kidney: Cyst lower pole= 1.2 x 0.8 x 0.9 cm Left Kidney: Cyst lower pole= 1.5 x 1.3 x 1.0 cm Bladder: Not fully distended, wall thickness= 0.8 cm Bilateral Jets seen: No There is no evidence for hydronephrosis at this point in time. No nephrolithiasis is seen. No rosalba s are identified. IMPRESSION: 1. Wall thickening of the urinary bladder may be due to underdistention. Clinical correlation is brandon mmended. 2. Bilateral renal cysts.
== END | disposition home or self-care (01) ==
LOC: RADUSWWP 13:35
PROVIDERS: ATTEND Internal Medicine Hematology & Oncology
DX: N28.1 Cyst of kidney, acquired (principal); R94.5 Abnormal results of liver function studies
CPT/HCPCS: 76770

== ENCOUNTER 2021-05-18 15:03 | Inpatient (IN) | payer MEDICARE, OTHER ==
[2021-05-18 15:24] LABS: Glucose,Whole Blood 116 mg/dL (75-99)
[2021-05-18 15:39] LABS: Basophils % (A) 0 %; Eosinophils # (A) 0.5 k/uL (0-0.7); Eosinophils % (A) 5 %; HCT 30.2 % (39.0-53.0); HGB 10.6 gm/dL (13.0-17.5); Lymphocytes # (A) 0.8 k/uL (1.0-4.8); Lymphocytes % (A) 9 %; MCH 31.6 pg (25.0-35.0); MCV 90.4 fL (80.0-100.0); Mean Platelet Volume 7.7; Monocytes # (A) 0.4 k/uL (0-1.0); Monocytes % (A) 5 %; Neutrophils # (A) 7.2 k/uL (1.3-7.7); Neutrophils % (A) 80 %; Platelet Count 166 k/uL (150-450); RBC 3.35 m/uL (4.30-5.90); WBC 9.1 k/uL (3.8-10.6)
--- NOTE | 2021-05-18 15:46 | CT ---
EXAMINATION TYPE: CT brain wo con for TPA DATE OF EXAM: 05/18/2021 COMPARISON: 01/12/2021 HISTORY: Left sided weakness CT DLP: 1138.[address] of the brain was performed. The ventricles, basal cisterns and sulci overlying the cerebral convexities demonstrate mild enlargem ent. There is no evidence for intracranial hemorrhage or sulcal effacement. There is decreased attenuation about the periventricular white matter and deep white matter of both c erebral hemispheres, compatible with chronic small vessel ischemia. Differential diagnosis does inclu de demyelination. No mass effects are seen.No midline shift. Osseous calvarium is intact. If symptoms persist consider MRI. IMPRESSION: 1. Age related atrophic and chronic small vessel ischemic change without acute intracranial process s een at this time.
[2021-05-18 15:52] LABS: Albumin 3.3 g/dL (3.5-5.0); Calcium 9.2 mg/dL (8.4-10.2); Potassium 5.5 mmol/L (3.5-5.1); Total Bilirubin 0.2 mg/dL (0.2-1.3); Total Protein 5.9 g/dL (6.3-8.2)
[2021-05-18 15:54] LABS: INR 1.2 (<1.2); Partial Thromboplastin Time 29.8 sec (22.0-30.0); Prothrombin Time 12.4 sec (9.0-12.0)
--- NOTE | 2021-05-18 15:54 | ED ---
General Adult HPI - General Chief complaint: Neuro Symptoms/Deficit Stated complaint: left side numbness Time Seen by Provider: 05/18/21 15:10 Source: patient Mode of arrival: wheelchair Limitations: no limitations - History of Present Illness Initial comments: Patient is a 75-year-old male with past medical history remarkable for lung cancer currently undergoing chemotherapy, DVT currently taking xeralto,, COPD, CVA, diabetes, hyperlipidemia, hypertension, ID, prostate disorder, seizure disorder who presents emergency Department complaining of sudden onset of slight weakness of the left face, some mild dysphasia, as well as mild sensory deficit in the left upper extremity. He does have a history of stroke which prompted family members to bring him in to the emergency department for evaluation. The patient's last known well was at approximately 2:40 PM. I evaluated the patient shortly after 3 PM. The patient is also describing mild tension-like headache and in a belt-like distribution around his head. He denies any recent falls. Denies any trauma to his head. He denies any chest pain, shortness of breath, abdominal pain, nausea, vomiting. Denies any blurry vision or other weakness. Illnesses no other acute complaints at this time. He is compliant with his anticoagulation therapy. - Related Data Home Medications Medication Instructions Recorded Confirmed Simvastatin [Zocor] 40 mg PO DAILY 07/30/19 05/18/21 amLODIPine [Norvasc] 10 mg PO HS 07/30/19 05/18/21 levETIRAcetam [Keppra] 500 mg PO BID 07/30/19 05/18/21 Insulin Detemir [Levemir Flextouch] 50 units SQ HS 07/06/20 05/18/21 Omeprazole 20 mg PO DAILY 07/06/20 05/18/21 HYDROcodone/APAP 5-325MG [[place] 1 tab PO BID PRN 01/12/21 05/18/21 5-325] Ipratropium-Albuterol Nebulize 3 ml INHALATION RT-QID PRN 01/12/21 05/18/21 [Duoneb 0.5 mg-3 mg/3 ml Soln] Rivaroxaban [Xarelto] 15 mg PO DAILY 01/12/21 05/18/21 Solifenacin Succinate [Vesicare] 10 mg PO DAILY 01/12/21 05/18/21 Insulin Aspart [NovoLOG Flexpen] 10 units SQ AC-TID 05/18/21 05/18/21 lisinopriL [Zestril] 20 mg PO DAILY 05/18/21 05/18/21 Previous Rx's Medication Instructions Recorded Metoprolol Tartrate 25 mg PO BID #60 tab 09/10/19 Levothyroxine Sodium [Synthroid] 25 mcg PO DAILY@0630 30 Days #30 07/08/20 tab Allergies Allergy/AdvReac Type Severity Reaction Status Date / Time No Known Allergies Allergy Verified 01/12/21 11:53 Review of Systems ROS Statement: Those systems with pertinent positive or pertinent negative responses have been documented in the HPI. Review of Systems: CONST: Denies fever EYES: Denies blurry vision ENT: Denies nasal congestion C/V: Denies Chest pain RESP: Denies shortness of breath GI: Denies abdominal pain : Denies dysuria SKIN: Denies rash. MSK: Denies joint pain. NEURO: Endorses headache, numbness ROS Other: All systems not noted in ROS Statement are negative. Past Medical History Past Medical History: Coronary Artery Disease (CAD), Cancer, COPD, CVA/TIA, Diabetes Mellitus, Deep Vein Thrombosis (DVT), Hyperlipidemia, Hypertension, Myocardial Infarction ([place]), Osteoarthritis (OA), Pneumonia, Prostate Disorder, Seizure Disorder Additional Past Medical History / Comment(s): 07/2018 L lung cancer with left upper lobectomy/IV chemo but pt states he quit taking chemo early then diagnosed with R lower lobe cancer in August 2019 and had wedge resection and immunothe rapy every 3 weeks, bronchitis, TIA and seizure after bronchoscopy in 2017, DVT L leg, IDDM type II, chronic cervical/back pain, diabetes mellitus, occasional bilateral ankle edema, BPH, chronic stage III kidney disease Last Myocardial Infarction Date:: 05/24/12 History of Any Multi-Drug Resistant Organisms: None Reported Past Surgical History: Back Surgery, Cholecystectomy, Heart Catheterization, Hernia Repair, Tonsillectomy Additional Past Surgical History / Comment(s): 2017 Bronchoscopy with bx, 2017 L upper lobectomy at [facility], August 2019 R lower lung wedge resection, low back surgery, 2011 cardiac cath-treat medically, umbilical hernia repair, bilateral cataract removals Past Anesthesia/Blood Transfusion Reactions: Previous Problems w/ Anesthesia Additional Past Anesthesia/Blood Transfusion Reaction / Comment(s): Seizure and mini stroke following lung biopsy Past Psychological History: Anxiety, Depression Smoking Status: Never smoker Past Alcohol Use History: None Reported Past Drug Use History: None Reported - Past Family History Mother Family Medical History: No Reported History Additional Family Medical History / Comment(s): Mother was healthy Father Family Medical History: Diabetes Mellitus Additional Family Medical History / Comment(s): Father of diabetes at the age of 83 yrs. General Exam - General Exam Comments Initial Comments: General: Appears in no acute distress. HEAD: Normal with no signs of head trauma. EYES: PERRLA, EOMI, conjunctiva normal, no discharge. Pupils are 3 mm bilaterally and equally reactive. ENT: Hearing grossly intact, normal oropharynx. RESPIRATORY: Clear breath sounds bilaterally. No wheezes, rales, or rhonchi. C/V: Regular rate and rhythm. S1 and S2 auscultated. Peripheral pulses are 2+ and intact throughout. ABD: Abd is soft, nontender, nondistended EXT: Normal range of motion, no obvious deformity SKIN: No rashes or lesions observed on exposed skin. NEURO: Alert and oriented 4. NIH stroke scale is 3, 1 for mild left-sided face droop of the lower jaw, 1 for mild sensory deficits of the left upper extremity, 1 for mild aphasia seems to somewhat been improving her family. Cerebellar function is intact as evident by normal finger to nose testing. Remainder of the neurological exam is relatively unremarkable. Limitations: no limitations Course Vital Signs 05/18/21 05/18/21 05/18/21 15:04 15:19 15:34 Temperature 98.5 F Pulse Rate 82 77 74 Respiratory 20 18 18 Rate Blood Pressure 159/88 153/97 161/95 O2 Sat by Pulse 97 96 96 Oximetry 05/18/21 05/18/21 05/18/21 15:49 16:04 16:34 Temperature Pulse Rate 72 71 68 Respiratory 18 18 18 Rate Blood Pressure 141/68 143/81 145/79 O2 Sat by Pulse 97 97 96 Oximetry 05/18/21 05/18/21 05/18/21 17:04 17:35 18:04 Temperature Pulse Rate 70 68 71 Respiratory 18 18 18 Rate Blood Pressure 158/79 138/71 141/71 O2 Sat by Pulse 99 97 98 Oximetry Medical Decision Making - Medical Decision Making Code stroke was called at approximately 1520 this on the patient's presentation and physical exam. Dxyev-ko-amya glucose was found to be within normal limits. EKG was obtained in walk in triage was relatively unremarkable as revealing no obvious signs of acute ischemia. We will will order this laboratory studies as well as coags. CT angiogram of the brain and neck as well as CT of the brain without contrast are ordered. Neurointerventionist was contacted, and I am waiting a callback. Patient does not appear to be a TPA candidate as evident by his current active malignancy on chemo therapy as well as him taking xeralto. He'll be connected to continuous cardiac monitoring. Patient was in agreement with this plan. He was administered an aspirin. Patient's EKG showed no acute ischemia. Patient's laboratory studies were remarkable for a normocytic anemia with a hemoglobin of 10.6. Patient is hyperkalemic to 5.5, which will be treated with 10 units of regular insulin as well as 1 amp of D50. Repeat potassium will be ordered. There are no EKG changes seen. Patient also has elevated creatinine BUNs in the setting of CKD and this appears to be at his baseline. Troponin is negative. Patient's CT imaging revealed no significant abnormality. There are age-related changes seen. Chest pain when shows no acute cardiopulmonary process. On Reevaluation, patient's NIH score is now 1, as his numbness has resolved and left upper extremity and is no longer aphasic. He still has mild left-sided facial droop. We discussed he is not a TPA candidate at this time and the neuro interventional likely not perform any form of intervention at this time. I did speak with the neurovascular interventional is research and evaluation analyst, Dr. Schrader who agreed with this plan. Patient will be admitted to the hospital with neurology evaluation. Patient will be admitted into his condition. Patient's PCP, Dr. Riley, sound physician and I spoke with the attending research and evaluation analyst who accepted the patient. I also spoke with Dr. denny of neurology who was consulted and will evaluate the patient. - Lab Data Result diagrams: 05/18/21 15:26 05/18/21 15: Lab Results 05/18/21 05/18/21 05/18/21 Range/Units : 15:26 15:26 WBC 9.1 (3.8-10.6) k/uL RBC 3.35 L (4.30-5.90) m/uL Hgb 10.6 L (13.0-17.5) gm/dL Hct 30.2 L (39.0-53.0) % MCV 90.4 (80.0-100.0) fL MCH 31.6 (25.0-35.0) pg MCHC 35.0 (31.0-37.0) g/dL RDW 14.0 (11.5-15.5) % Plt Count 166 (150-450) k/uL MPV 7.7 Neutrophils % 80 % Lymphocytes % 9 % Monocytes % 5 % Eosinophils % 5 % Basophils % 0 % Neutrophils # 7.2 (1.3-7.7) k/uL Lymphocytes # 0.8 L (1.0-4.8) k/uL Monocytes # 0.4 (0-1.0) k/uL Eosinophils # 0.5 (0-0.7) k/uL Basophils # 0.0 (0-0.2) k/uL PT 12.4 H (9.0-12.0) sec INR 1.2 H (<1.2) APTT 29.8 (22.0-30.0) sec Sodium (137-145) mmol/L Potassium (3.5-5.1) mmol/L Chloride (98-107) mmol/L Carbon Dioxide (22-30) mmol/L Anion Gap mmol/L BUN (9-20) mg/dL Creatinine (0.66-1.25) mg/dL Est GFR (CKD-EPI)AfAm (>60 ml/min/1.73 sqM) Est GFR (CKD-EPI)NonAf (>60 ml/min/1.73 sqM) Glucose (74-99) mg/dL POC Glucose (mg/dL) 116 H (75-99) mg/dL POC Glu [employer] Radha Ruiz Calcium (8.4-10.2) mg/dL Total Bilirubin (0.2-1.3) mg/dL AST (17-59) U/L ALT (4-49) U/L Alkaline Phosphatase (38-126) U/L Troponin I (0.000-0.034) ng/mL Total Protein (6.3-8.2) g/dL Albumin (3.5-5.0) g/dL 05/18/21 05/18/21 Range/Units 15:26 15:26 WBC (3.8-10.6) k/uL RBC (4.30-5.90) m/uL Hgb (13.0-17.5) gm/dL Hct (39.0-53.0) % MCV (80.0-100.0) fL MCH (25.0-35.0) pg MCHC (31.0-37.0) g/dL RDW (11.5-15.5) % Plt Count (150-450) k/uL MPV Neutrophils % % Lymphocytes % % Monocytes % % Eosinophils % % Basophils % % Neutrophils # (1.3-7.7) k/uL Lymphocytes # (1.0-4.8) k/uL Monocytes # (0-1.0) k/uL Eosinophils # (0-0.7) k/uL Basophils # (0-0.2) k/uL PT (9.0-12.0) sec INR (<1.2) APTT (22.0-30.0) sec Sodium 140 (137-145) mmol/L Potassium 5.5 H (3.5-5.1) mmol/L Chloride 110 H (98-107) mmol/L Carbon Dioxide 22 (22-30) mmol/L Anion Gap 8 mmol/L BUN 30 H (9-20) mg/dL Creatinine 1.73 H (0.66-1.25) mg/dL Est GFR (CKD-EPI)AfAm 44 (>60 ml/min/1.73 sqM) Est GFR (CKD-EPI)NonAf 38 (>60 ml/min/1.73 sqM) Glucose 121 H (74-99) mg/dL POC Glucose (mg/dL) (75-99) mg/dL POC Glu [employer] ID Calcium 9.2 (8.4-10.2) mg/dL Total Bilirubin 0.2 (0.2-1.3) mg/dL AST 18 (17-59) U/L ALT 14 (4-49) U/L Alkaline Phosphatase 117 (38-126) U/L Troponin I <0.012 (0.000-0.034) ng/mL Total Protein 5.9 L (6.3-8.2) g/dL Albumin 3.3 L (3.5-5.0) g/dL - EKG Data -: EKG Interpreted by Me EKG Comments: 12-lead Electrocardiogram Interpretation Note EKG was reviewed and interpreted by myself. 12-lead ECG performed at 1511 is interpreted by me as revealing normal sinus rhythm at a rate of 77 beats per minute. [place] is normal, [place] interval is 170 ms, QRS duration is 84 ms, QTc is 425 ms.. There were no ST or T wave abnormalities to suggest myocardial ischemia or injury. R wave progression across the precordium was satisfactory. By my interpretation this EKG is non-diagnostic for acute ischemia. Disposition Clinical Impression: TIA (transient ischemic attack), Cerebrovascular accident (CVA), CKD (chronic kidney disease), Hyperkalemia, History of cancer Disposition: ADMITTED IP TO THIS HOSP Condition: Serious
--- NOTE | 2021-05-18 15:58 | XR ---
EXAMINATION TYPE: XR chest 1V portable DATE OF EXAM: 05/18/2021 HISTORY: Shortness of breath. COMPARISON: 01/12/2021 TECHNIQUE: Single view of the chest is submitted. FINDINGS: Demonstrated are scattered senescent parenchymal change. There is no evidence for focal infiltrate. The heart is stable. Hilar and mediastinal structures are within normal limits. Degenerative changes are seen of the dorsal spine. IMPRESSION: 1. Chronic changes without evidence for acute pulmonary disease.
--- NOTE | 2021-05-18 16:03 | CT ---
EXAMINATION TYPE: CT angio head neck DATE OF EXAM: 05/18/2021 COMPARISON: None HISTORY: Neuro deficit, acute, stroke suspected CONTRAST: Performed with IV Contrast, patient injected with 100 mL of Isovue 370. Combination Contrast CTA cervical carotids and [place] CTA cervical carotids with 3-D recons truction Contrast CTA of the cervical carotids was performed 3-D reconstruction imaging obtained at a separate workstation. Right carotid system: Mild plaque is seen of the right common carotid artery. There is moderate plaq ue also noted at the carotid bulb and proximal ICA. Estimated diameter reduction of 60%. ECA is pat ent. Right vertebral artery appears unremarkable. Left carotid system: Mild plaque is seen of the left common carotid artery. There is mild plaque als o noted at the carotid bulb and proximal ICA. No significant diameter reduction. ECA is patent. Lef t vertebral artery appears unremarkable. IMPRESSION: 1. Moderate plaque right ICA with estimated diameter reduction of 60%. CTA [place] with 3-D reconstruction Contrast CTA of the [place] was performed 3-D reconstruction imaging obtained at a separate workstation. Vertebrobasilar system as well as intracranial portions of the internal carotid arteries and their ma mary tributaries are patent. I do not see evidence for sizable aneurysm or vascular malformation. Pl ease note MRI provides greater sensitivity and specificity. Visualized brain appears grossly unremar kable. IMPRESSION: 1. No significant abnormality.
[2021-05-18] MEDS ORDERED: SODIUM CHLORIDE 0.9% 1,000 ML IV STA (16:56)
[2021-05-18] MEDS ORDERED: ACETAMINOPHEN TAB 325 MG TAB PO STA (16:56)
[2021-05-18] MEDS ORDERED: INSULIN REGULAR 100 UNIT/ML VIAL (IV) IV ONE (16:58)
[2021-05-18] MEDS ORDERED: DEXTROSE 50% SYRINGE 50 ML IVP STA (16:58)
[2021-05-18] MEDS ORDERED: ACETAMINOPHEN TAB 325 MG TAB PO PRN (17:32)
[2021-05-18] MEDS ORDERED: HYDROcodone/APAP 5-325MG 1 EACH TAB PO PRN (17:36)
--- NOTE | 2021-05-18 18:34 | P.HPIM ---
History of Present Illness H&P Date: 05/18/21 This is a 75-year-old male with complex past medical history noted below significant for underlying lung cancer on chemotherapy who presented to the emergency room with left hand numbness and left lower lip numbness. Patient said that his symptoms started while he was at home and given that he has a history of prior CVA he was concerned and called EMS. Patient said that I the time he arrived to the hospital his symptoms resolved. He said that his symptoms lasted less than 30 minutes. He denies any vision change or headache. No weakness anywhere in his body. Patient was evaluated in the ER and computed tomography scan of the head showed no acute findings. He'll be placed on observation for neurology consultation. Review of Systems Review of system: 14 points review of systems were obtained and were negative except to what were mentioned in the HPI. Past Medical History Past Medical History: Coronary Artery Disease (CAD), Cancer, COPD, CVA/TIA, Diabetes Mellitus, Deep Vein Thrombosis (DVT), Hyperlipidemia, Hypertension, Myocardial Infarction ([place]), Osteoarthritis (OA), Pneumonia, Prostate Disorder, Seizure Disorder Additional Past Medical History / Comment(s): 07/2018 L lung cancer with left upper lobectomy/IV chemo but pt states he quit taking chemo early then diagnosed with R lower lobe cancer in August 2019 and had wedge resection and immunotherapy every 3 weeks, bronchitis, TIA and seizure after bronchoscopy in 2017, DVT L leg, IDDM type II, chronic cervical/back pain, diabetes mellitus, occasional bilateral ankle edema, BPH, chronic stage III kidney disease Last Myocardial Infarction Date:: 05/24/12 History of Any Multi-Drug Resistant Organisms: None Reported Past Surgical History: Back Surgery, Cholecystectomy, Heart Catheterization, Hernia Repair, Tonsillectomy Additional Past Surgical History / Comment(s): 2017 Bronchoscopy with bx, 2017 L upper lobectomy at [facility], August 2019 R lower lung wedge resection, low back surgery, 2011 cardiac cath-treat medically, umbilical hernia repair, bilateral cataract removals Past Anesthesia/Blood Transfusion Reactions: Previous Problems w/ Anesthesia Additional Past Anesthesia/Blood Transfusion Reaction / Comment(s): Seizure and mini stroke following lung biopsy Past Psychological History: Anxiety, Depression Smoking Status: Never smoker Past Alcohol Use History: None Reported Past Drug Use History: None Reported - Past Family History Mother Family Medical History: No Reported History Additional Family Medical History / Comment(s): Mother was healthy Father Family Medical History: Diabetes Mellitus Additional Family Medical History / Comment(s): Father of diabetes at the age of 83 yrs. Medications and Allergies Home Medications Medication Instructions Recorded Confirmed Type Simvastatin [Zocor] 40 mg PO DAILY 07/30/19 05/18/21 History amLODIPine [Norvasc] 10 mg PO HS 07/30/19 05/18/21 History levETIRAcetam [Keppra] 500 mg PO BID 07/30/19 05/18/21 History Metoprolol Tartrate 25 mg PO BID #60 tab 09/10/19 05/18/21 Rx Insulin Detemir [Levemir Flextouch] 50 units SQ HS 07/06/20 05/18/21 History Omeprazole 20 mg PO DAILY 07/06/20 05/18/21 History Levothyroxine Sodium [Synthroid] 25 mcg PO DAILY@0630 30 Days #30 07/08/20 05/18/21 Rx tab HYDROcodone/APAP 5-325MG [[place] 1 tab PO BID PRN 01/12/21 05/18/21 History 5-325] Ipratropium-Albuterol Nebulize 3 ml INHALATION RT-QID PRN 01/12/21 05/18/21 History [Duoneb 0.5 mg-3 mg/3 ml Soln] Rivaroxaban [Xarelto] 15 mg PO DAILY 01/12/21 05/18/21 History Solifenacin Succinate [Vesicare] 10 mg PO DAILY 01/12/21 05/18/21 History Insulin Aspart [NovoLOG Flexpen] 10 units SQ AC-TID 05/18/21 05/18/21 History lisinopriL [Zestril] 20 mg PO DAILY 05/18/21 05/18/21 History Allergies Allergy/AdvReac Type Severity Reaction Status Date / Time No Known Allergies Allergy Verified 01/12/21 11:53 Physical Exam Vitals: Vital Signs Temp Pulse Resp BP Pulse Ox 05/18/21 18:04 71 18 141/71 98 05/18/21 17:35 68 18 138/71 97 05/18/21 17:04 70 18 158/79 99 05/18/21 16:34 68 18 145/79 96 05/18/21 16:04 71 18 143/81 97 05/18/21 15:49 72 18 141/68 97 05/18/21 15:34 74 18 161/95 96 05/18/21 15:19 77 18 153/97 96 05/18/21 15:04 98.5 F 82 20 159/88 97 Intake and Output 05/18/21 05/18/21 05/18/21 06:59 14:59 22:59 Other: Weight 92.986 kg General: The patient is awake and alert, in no distress Eye: there is normal conjunctiva bilaterally. Neck: The neck is supple, there is no JVD. Cardiovascular: Normal S1-S2, no S3-S4, no murmurs. Respiratory: Lungs clear to auscultation bilaterally Gastrointestinal: Abdomen is soft, nontender Musculoskeletal: There is no pedal edema. Neurological:. Speech is normal. Skin: Skin is warm and dry Results CBC & Chem 7: 05/18/21 15:26 05/18/21 15:26 Labs: Abnormal Lab Results - Last 24 Hours (Table) 05/18/21 05/18/21 05/18/21 Range/Units 15: 15:26 15:26 RBC 3.35 L (4.30-5.90) m/uL Hgb 10.6 L (13.0-17.5) gm/dL Hct 30.2 L (39.0-53.0) % Lymphocytes # 0.8 L (1.0-4.8) k/uL PT 12.4 H (9.0-12.0) sec INR 1.2 H (<1.2) Potassium (3.5-5.1) mmol/L Chloride (98-107) mmol/L BUN (9-20) mg/dL Creatinine (0.66-1.25) mg/dL Glucose (74-99) mg/dL POC Glucose (mg/dL) 116 H (75-99) mg/dL Total Protein (6.3-8.2) g/dL Albumin (3.5-5.0) g/dL 05/18/21 Range/Units 15:26 RBC (4.30-5.90) m/uL Hgb (13.0-17.5) gm/dL Hct (39.0-53.0) % Lymphocytes # (1.0-4.8) k/uL PT (9.0-12.0) sec INR (<1.2) Potassium 5.5 H (3.5-5.1) mmol/L Chloride 110 H (98-107) mmol/L BUN 30 H (9-20) mg/dL Creatinine 1.73 H (0.66-1.25) mg/dL Glucose 121 H (74-99) mg/dL POC Glucose (mg/dL) (75-99) mg/dL Total Protein 5.9 L (6.3-8.2) g/dL Albumin 3.3 L (3.5-5.0) g/dL Assessment and Plan Assessment: This is a 75-year-old male who presented to the emergency room with a transient numbness involving his left hand and left side of his lower lip. His symptoms resolved quickly prior to presentation to the ER. He was placed on observation for further management. 1. Transient numbness involving both hands worse on the left with some numbness in the left lower lip. I really doubt this represents any symptoms of TIA or CVA. I wonder if this is a side effect of his chemotherapy versus some neuropathy. Patient had similar presentation in January and at that time he had extensive workup including MRI of the brain that was unremarkable. He also had an echocardiogram. Patient had a CT angiogram of the head and neck in the ER with no acute findings 2. Chronic medical problems: Lung cancer on chemotherapy, stage IIIB chronic kidney disease, history of DVT on anticoagulation with a rectal, hypertension, hyperlipidemia
[2021-05-18] MEDS ORDERED: SODIUM POLYSTYRENE SULFONATE 15 GM/60 ML BOTTLE PO STA (18:36)
[2021-05-18 20:17] LABS: Glucose,Whole Blood 75 mg/dL (75-99)
[2021-05-18] MEDS ORDERED: INSULIN DETEMIR (LEVEMIR) 100 UNIT/ML SYR SQ SCH (21:00)
[2021-05-18] MEDS: IPRATROPIUM-ALBUTEROL 3 ML NEB INHALATION PRN (21:06)
[2021-05-18 22:04] LABS: Glucose,Whole Blood 134 mg/dL (75-99)
[2021-05-18] MEDS: METOPROLOL TARTRATE 25 MG TAB PO SCH (22:18)
[2021-05-18] MEDS: levETIRAcetam 500 MG TAB PO SCH (22:18)
[2021-05-18] MEDS: amLODIPine 10 MG TAB PO SCH (22:20)
[2021-05-19 01:45] LABS: Glucose,Whole Blood 190 mg/dL (75-99)
[2021-05-19] MEDS: LEVOTHYROXINE 25 MCG TAB PO SCH (06:23)
[2021-05-19 07:15] LABS: Glucose,Whole Blood 194 mg/dL (75-99)
[2021-05-19] MEDS ORDERED: INSULIN ASPART (NovoLOG) 100 UNIT/ML VIAL SQ SCH (07:30)
[2021-05-19] MEDS: TROSPIUM CHLORIDE 20 MG TABLET PO SCH ×2 (07:58→21:03)
[2021-05-19] MEDS: RIVAROXABAN 15 MG TAB PO SCH (07:59)
[2021-05-19] MEDS: lisinopriL 20 MG TAB PO SCH (07:59)
[2021-05-19] MEDS: METOPROLOL TARTRATE 25 MG TAB PO SCH ×2 (07:59→21:04)
[2021-05-19] MEDS: PANTOPRAZOLE 40 MG TABLET PO SCH (07:59)
[2021-05-19] MEDS: ATORVASTATIN 20 MG TAB PO SCH (07:59)
[2021-05-19] MEDS: levETIRAcetam 500 MG TAB PO SCH ×2 (07:59→21:04)
[2021-05-19 08:57] LABS: Basophils # (A) 0.02 X 10*3/uL (0.00-0.10); Basophils % (A) 0.3 %; Eosinophils # (A) 0.49 X 10*3/uL (0.04-0.35); Eosinophils % (A) 8.4 %; HCT 26.5 % (39.6-50.0); HGB 8.7 g/dL (13.0-17.0); Lymphocytes # (A) 0.85 X 10*3/uL (0.90-5.00); Lymphocytes % (A) 14.6 %; MCHC 32.8 g/dL (32.0-37.0); MCV 94.3 fL (80.0-97.0); Monocytes # (A) 0.43 X 10*3/uL (0.20-1.00); Monocytes % (A) 7.4 %; Neutrophils # (A) 4.02 X 10*3/uL (1.80-7.70); Neutrophils % (A) 69.1 %; Platelet Count 148 X 10*3/uL (140-440); RBC 2.81 X 10*6/uL (4.40-5.60); WBC 5.82 X 10*3/uL (4.50-10.00)
[2021-05-19] MEDS: IPRATROPIUM-ALBUTEROL 3 ML NEB INHALATION PRN ×4 (09:11→21:12)
[2021-05-19 11:07] LABS: Glucose,Whole Blood 45 mg/dL (75-99)
[2021-05-19 11:27] LABS: Glucose,Whole Blood 44 mg/dL (75-99)
[2021-05-19 11:33] LABS: Albumin/Globulin Ratio 1.67 (1.60-3.17); Anion Gap 5.4 mmol/L (4.00-12.00); BUN/Creat Ratio 17.65 Ratio (12.00-20.00); Calcium 8.2 mg/dL (8.7-10.3); Carbon Dioxide 23.6 mmol/L (21.6-31.8); Globulin 1.8 g/dL (1.6-3.3); Magnesium 0.9 mg/dL (1.5-2.4); Non-African American GFR(CKD) 38.9 (60.0-200.0); Potassium 4.9 mmol/L (3.5-5.5); Total Bilirubin 0.2 mg/dL (0.2-1.2); Total Protein 4.8 g/dL (6.2-8.2)
[2021-05-19 11:38] LABS: Glucose,Whole Blood 52 mg/dL (75-99)
[2021-05-19] MEDS ORDERED: DEXTROSE 50% SYRINGE 50 ML IVP STA (11:45)
[2021-05-19] MEDS ORDERED: DEXTROSE 50% SYRINGE 50 ML IVP ONE (11:48)
[2021-05-19 11:57] LABS: Glucose,Whole Blood 138 mg/dL (75-99)
--- NOTE | 2021-05-19 12:02 | P.CNNES ---
History of Present Illness Consult date: 05/19/21 Requesting physician: Vic Dewitt Reason for Consult: TIA History of Present Illness: Patient is a 75-year-old male with history of hypertension, diabetes, previous TIAs came to the hospital yesterday at 3:05 PM for possible TIA. Patient states that yesterday he developed loss of feeling in the left hand, left forearm and left side of the face. The symptoms lasted for about 45-50 minutes and then went away. He got concerned there for decided to come to the ER. Denies any symptoms with his legs, slurred speech, motor weakness or diplopia. At present he is back to baseline. Vital signs arrival blood pressure 159/88, pulse rate 82, temperature 98.5. Blood test shows normal WBC hemoglobin 10.6, platelets 7.7, PT/PTT normal, sodium normal, potassium 5.5, BUN 30, creatinine 1.73. Hepatic panel normal, troponin negative. Repeat hemoglobin this morning is 8.7. CT head showed age- related atrophic and chronic small vessel ischemic changes without acute intracranial process. Chest x-ray showed chronic changes without evidence for acute pulmonary disease. CTA of the neck showed moderate plaque right ICA with estimated diameter reduction of 60%. CTA of the head was normal. EKG shows normal sinus rhythm Patient is known to me with multiple previous admissions. The last time patient was seen was on 01/12/2021, when he had probable TIA manifesting with speech difficulty, left arm weakness and inability to stand up, with symptoms lasting for 30 minutes. Patient has history of lung cancer, was on chemotherapy. Patient's CTA at that time revealed 50% stenosis on the right. Now it has prog ressed to 60%. Patient has history of stage IV lung cancer, diagnosed in July or August 2020. He has undergone partial left lung lobectomy. He has received chemotherapy. He is currently receiving Keytruda. Patient has diabetes for 20+ years, hypertension, COPD. Denies any hyperlipidemia. He has smoked 3 packs per day for 33 years, quit 23 years ago. Patient currently takes Xarelto and aspirin 81 mg twice a day. Review of Systems As above. Denies any chest pain. He does have some cough and shortness of breath. Denies any abdominal pain nausea vomiting diarrhea. Denies any dysphagia,. Complains of peripheral edema. No rash. No fever or chills. No anxiety depression. No chest pain or angina. Patient has diabetes. Denies any weight loss. All other review of systems unremarkable. Past Medical History Past Medical History: Coronary Artery Disease (CAD), Cancer, COPD, CVA/TIA, Diabetes Mellitus, Deep Vein Thrombosis (DVT), Hyperlipidemia, Hypertension, Myocardial Infarction ([place]), Osteoarthritis (OA), Pneumonia, Prostate Disorder, Seizure Disorder Additional Past Medical History / Comment(s): 07/2018 L lung cancer with left upper lobectomy/IV chemo but pt states he quit taking chemo early then diagnosed with R lower lobe cancer in August 2019 and had wedge resection and immunotherapy every 3 weeks, bronchitis, TIA and seizure after bronchoscopy in 2017, DVT L leg, IDDM type II, chronic cervical/back pain, diabetes mellitus, occasional bilateral ankle edema, BPH, chronic stage III kidney disease Last Myocardial Infarction Date:: 05/24/12 History of Any Multi-Drug Resistant Organisms: None Reported Past Surgical History: Back Surgery, Cholecystectomy, Heart Catheterization, Hernia Repair, Tonsillectomy Additional Past Surgical History / Comment(s): 2017 Bronchoscopy with bx, 2017 L upper lobectomy at [facility], August 2019 R lower lung wedge resection, low back [facility], 2011 cardiac cath-treat medically, umbilical hernia repair, bilateral cataract removals Past Anesthesia/Blood Transfusion Reactions: Previous Problems w/ Anesthesia Additional Past Anesthesia/Blood Transfusion Reaction / Comment(s): Seizure and mini stroke following lung biopsy Past Psychological History: Anxiety, Depression Smoking Status: Never smoker Past Alcohol Use History: None Reported Past Drug Use History: None Reported - Past Family History Mother Family Medical History: No Reported History Additional Family Medical History / Comment(s): Mother was healthy Father Family Medical History: Diabetes Mellitus Additional Family Medical History / Comment(s): Father of diabetes at the age of 83 yrs. Medications and Allergies Home Medications Medication Instructions Recorded Confirmed Type Simvastatin [Zocor] 40 mg PO DAILY 07/30/19 05/18/21 History amLODIPine [Norvasc] 10 mg PO HS 07/30/19 05/18/21 History levETIRAcetam [Keppra] 500 mg PO BID 07/30/19 05/18/21 History Metoprolol Tartrate 25 mg PO BID #60 tab 09/10/19 05/18/21 Rx Insulin Detemir [Levemir Flextouch] 50 units SQ HS 07/06/20 05/18/21 History Omeprazole 20 mg PO DAILY 07/06/20 05/18/21 History Levothyroxine Sodium [Synthroid] 25 mcg PO DAILY@0630 30 Days #30 07/08/20 05/18/21 Rx tab HYDROcodone/APAP 5-325MG [[place] 1 tab PO BID PRN 01/12/21 05/18/21 History 5-325] Ipratropium-Albuterol Nebulize 3 ml INHALATION RT-QID PRN 01/12/21 05/18/21 History [Duoneb 0.5 mg-3 mg/3 ml Soln] Rivaroxaban [Xarelto] 15 mg PO DAILY 01/12/21 05/18/21 History Solifenacin Succinate [Vesicare] 10 mg PO DAILY 01/12/21 05/18/21 History Insulin Aspart [NovoLOG Flexpen] 10 units SQ AC-TID 05/18/21 05/18/21 History lisinopriL [Zestril] 20 mg PO DAILY 05/18/21 05/18/21 History Allergies Allergy/AdvReac Type Severity Reaction Status Date / Time No Known Allergies Allergy Verified 01/12/21 11:53 Physical Examination - Vital Signs Vital Signs: Vital Signs Temp Pulse Pulse Resp BP BP Pulse Ox 05/19/21 09:22 80 05/19/21 09:11 76 05/19/21 07:00 98.3 F 70 18 136/69 96 05/19/21 01:40 98.6 F 85 18 141/72 95 05/18/21 21:17 70 05/18/21 21:06 70 05/18/21 19:20 97.8 F 68 20 159/67 97 05/18/21 18:04 71 18 141/71 98 05/18/21 17:35 68 18 138/71 97 05/18/21 17:04 70 18 158/79 99 05/18/21 16:34 68 18 145/79 96 05/18/21 16:04 71 18 143/81 97 05/18/21 15:49 72 18 141/68 97 05/18/21 15:34 74 18 161/95 96 05/18/21 15:19 77 18 153/97 96 05/18/21 15:04 98.5 F 82 20 159/88 97 Intake and Output 05/18/21 05/19/21 05/19/21 22:59 06:59 14:59 Intake Total 240 0 Balance 240 0 Intake: Oral 240 0 Other: Weight 92.986 kg Patient is an elderly male, in no acute distress. Patient is alert awake oriented to time place and person. Speech is very mildly dysarthric and language functions are normal. Attention, concentration and fund of knowledge is adequate. On cranial examination, pupils are round and reacting to light, visual wright are full on confrontation, extraocular muscles are intact with no nystagmus. F najma is symmetric, tongue protrudes to the midline. Palatal elevation and sensation normal, hearing and shoulder shrug normal, facial sensation normal. Shoulder shrug normal. On muscle strength testing, there is no pronator drift and the strength is normal in arms and legs distally and proximally. Deep tendon reflexes are symmetric, 2 at the biceps, 1 brachioradialis, 2 at the knees, 1 ankles and plantars downgoing. Sensory to touch is equal with no neglect. Cerebellar function showed no ataxia for [id number] testing. No dysdiadochokinesia. Tone and bulk of muscles normal. Gait not checked. On general examination, there is no carotid bruit or murmur, S1-S2 audible. Abdomen is soft nontender. Chest is slightly congested. Patient has moderate peripheral edema. Results - Laboratory Findings CBC and BMP: 05/19/21 04:52 05/19/21 04:52 Abnormal Lab Findings: Abnormal Labs 05/18/21 05/18/21 05/18/21 15:21 15:26 15:26 RBC 3.35 L Hgb 10.6 L Hct 30.2 L Lymphocytes # 0.8 L Eosinophils # PT 12.4 H INR 1.2 H Potassium Chloride BUN Creatinine Glucose POC Glucose (mg/dL) 116 H Total Protein Albumin 05/18/21 05/18/21 05/19/21 15:26 22:03 01:43 RBC Hgb Hct Lymphocytes # Eosinophils # PT INR Potassium 5.5 H Chloride 110 H BUN 30 H Creatinine 1.73 H Glucose 121 H POC Glucose (mg/dL) 134 H 190 H Total Protein 5.9 L Albumin 3.3 L 05/19/21 05/19/21 04:52 07:13 RBC 2.81 L Hgb 8.7 L Hct 26.5 L Lymphocytes # 0.85 L Eosinophils # 0.49 H PT INR Potassium Chloride BUN Creatinine Glucose POC Glucose (mg/dL) 194 H Total Protein Albumin Assessment and Plan Assessment: * Recurrent TIA involving right hemispheric region with left facial arm numbness. Symptoms resolved in 45 minutes. * Moderate right ICA stenosis 60% per CTA. Probably asymptomatic. * Diabetes * Hypertension * COPD * History of lung cancer, on chemotherapy * X tobacco use. Plan: * Patient has recurrent admissions for TIA involving right hemispheric region and left sided symptomatology. Patient has at least moderate stenosis, 60% stenosis of the right ICA, as per current CTA report. It appears the stenosis is symptomatic. Patient is already on Xarelto and aspirin 81 mg twice a day. At this time, the only option is either switching from aspirin to Plavix, or the other option is right CEA/stenting. Patient will continue Xarelto. We will have vascular surgery follow-up with the patient. We will recheck hemog lobin A1c. * We will follow.
[2021-05-19] MEDS: MAGNESIUM SULFATE-D5W PMX 1 GM in DEXTROSE/WATER 1 100ML.BAG IVPB SCH ×2 (12:44→13:58)
[2021-05-19] MEDS: ASPIRIN 81 MG PO SCH (12:44)
[2021-05-19 13:10] LABS: Glucose,Whole Blood 95 mg/dL (75-99)
--- NOTE | 2021-05-19 13:54 | P.GSCN ---
History of Present Illness Consult date: 05/19/21 Reason for Consult: Carotid stenosis Requesting physician: Jaci Freeman History of present illness: A 5-year-old white male who presented to the emergency department yesterday with complaints of left hand numbness, along with complaints of left facial numbness lasting about 45 minutes. Denies any other focal deficits such as vision changes, speech difficulty, or swallowing difficulty. He has a past medical his tory of TIA, lung cancer who follows with Dr. Steward, COPD, coronary artery disease, DVT, [place], hypertension, hyperlipidemia, and diabetes mellitus type 2. The patient states that he has seen Dr. Castro in the past and she has been watching his carotid stenosis. He had a CT angiogram of head and neck showing moderate plaque of the right ICA estimated 60% reduction, brain normal. CT of the brain showed age-related atrophic and chronic vessel ischemic changes without acute intracranial process seen at this time. He denies any shortness of breath, chest pain, abdominal pain, nausea, vomiting. He states his symptoms have completely resolved. He denies any other focal deficits at this time. Review of Systems A 14 point review of systems was completed all pertinent positives and negatives as stated in the HPI Past Medical History Past Medical History: Coronary Artery Disease (CAD), Cancer, COPD, CVA/TIA, Diabetes Mellitus, Deep Vein Thrombosis (DVT), Hyperlipidemia, Hypertension, Myocardial Infarction ([place]), Osteoarthritis (OA), Pneumonia, Prostate Disorder, Seizure Disorder Additional Past Medical History / Comment(s): 07/2018 L lung cancer with left upper lobectomy/IV chemo but pt states he quit taking chemo early then diagnosed with R lower lobe cancer in August 2019 and had wedge resection and immunotherapy every 3 weeks, bronchitis, TIA and seizure after bronchoscopy in 2017, DVT L leg, IDDM type II, chronic cervical/back pain, diabetes mellitus, occasional bilateral ankle edema, BPH, chronic stage III kidney disease Last Myocardial Infarction Date:: 05/24/12 History of Any Multi-Drug Resistant Organisms: None Reported Past Surgical History: Back Surgery, Cholecystectomy, Heart Catheterization, Hernia Repair, Tonsillectomy Additional Past Surgical History / Comment(s): 2017 Bronchoscopy with bx, 2017 L upper lobectomy at [facility], August 2019 R lower lung wedge resection, low back surgery, 2011 cardiac cath-treat medically, umbilical hernia repair, bilateral cataract removals Past Anesthesia/Blood Transfusion Reactions: Previous Problems w/ Anesthesia Additional Past Anesthesia/Blood Transfusion Reaction / Comm: Seizure and mini stroke following lung biopsy Past Psychological History: Anxiety, Depression Smoking Status: Never smoker Past Alcohol Use History: None Reported Past Drug Use History: None Reported - Past Family History Mother Family Medical History: No Reported History Additional Family Medical History / Comment(s): Mother was healthy Father Family Medical History: Diabetes Mellitus Additional Family Medical History / Comment(s): Father of diabetes at the age of 83 yrs. Medications and Allergies Home Medications Medication Instructions Recorded Confirmed Type Simvastatin [Zocor] 40 mg PO DAILY 07/30/19 05/18/21 History amLODIPine [Norvasc] 10 mg PO HS 07/30/19 05/18/21 History levETIRAcetam [Keppra] 500 mg PO BID 07/30/19 05/18/21 History Metoprolol Tartrate 25 mg PO BID #60 tab 09/10/19 05/18/21 Rx Insulin Detemir [Levemir Flextouch] 50 units SQ HS 07/06/20 05/18/21 History Omeprazole 20 mg PO DAILY 07/06/20 05/18/21 History Levothyroxine Sodium [Synthroid] 25 mcg PO DAILY@0630 30 Days #30 07/08/20 05/18/21 Rx tab HYDROcodone/APAP 5-325MG [[place] 1 tab PO BID PRN 01/12/21 05/18/21 History 5-325] Ipratropium-Albuterol Nebulize 3 ml INHALATION RT-QID PRN 01/12/21 05/18/21 History [Duoneb 0.5 mg-3 mg/3 ml Soln] Rivaroxaban [Xarelto] 15 mg PO DAILY 01/12/21 05/18/21 History Solifenacin Succinate [Vesicare] 10 mg PO DAILY 01/12/21 05/18/21 History Insulin Aspart [NovoLOG Flexpen] 10 units SQ AC-TID 05/18/21 05/18/21 History lisinopriL [Zestril] 20 mg PO DAILY 05/18/21 05/18/21 History Allergies Allergy/AdvReac Type Severity Reaction Status Date / Time No Known Allergies Allergy Verified 01/12/21 11:53 Surgical - Exam Vital Signs Temp Pulse Resp BP Pulse Ox 98.5 F 82 20 159/88 97 05/18/21 15:04 05/18/21 15:04 05/18/21 15:04 05/18/21 15:04 05/18/21 15:04 General appearance: The patient is alert, oriented, appears in no acute distress. HET: Head is normocephalic and atraumatic. Pupils are equal and reactive. Neck: Supple without lymphadenopathy. Trachea midline. Heart: S1 S2. Regular rate and rhythm. Lungs: Clear to auscultation bilaterally Abdomen: Soft, nontender, nondistended. Extremities: Normal skin color and turgor. Bilateral lower extremity edema. Bilateral Radial pulses are 2/4 bilaterally. Neurological: No focal deficits. Strength and sensation are grossly intact. Alert and oriented 3. Results - Labs 05/19/21 04:52 05/19/21 04:52 Abnormal Lab Results - Last 24 Hours (Table) 05/18/21 05/18/21 05/18/21 Range/Units 15: 15:26 15:26 RBC 3.35 L (4.30-5.90) m/uL Hgb 10.6 L (13.0-17.5) gm/dL Hct 30.2 L (39.0-53.0) % Lymphocytes # 0.8 L (1.0-4.8) k/uL Eosinophils # (0.04-0.35) X 10*3/uL PT 12.4 H (9.0-12.0) sec INR 1.2 H (<1.2) Potassium (3.5-5.1) mmol/L Chloride (98-107) mmol/L BUN (9-20) mg/dL Creatinine (0.66-1.25) mg/dL Est GFR (CKD-EPI)AfAm (60.0-200.0) Est GFR (CKD-EPI)NonAf (60.0-200.0) Glucose (74-99) mg/dL POC Glucose (mg/dL) 116 H (75-99) mg/dL Calcium (8.7-10.3) mg/dL Magnesium (1.5-2.4) mg/dL Total Protein (6.3-8.2) g/dL Albumin (3.5-5.0) g/dL 05/18/21 05/18/21 05/19/21 Range/Units 15:26 22:03 01:43 RBC (4.30-5.90) m/uL Hgb (13.0-17.5) gm/dL Hct (39.0-53.0) % Lymphocytes # (1.0-4.8) k/uL Eosinophils # (0.04-0.35) X 10*3/uL PT (9.0-12.0) sec INR (<1.2) Potassium 5.5 H (3.5-5.1) mmol/L Chloride 110 H (98-107) mmol/L BUN 30 H (9-20) mg/dL Creatinine 1.73 H (0.66-1.25) mg/dL Est GFR (CKD-EPI)AfAm (60.0-200.0) Est GFR (CKD-EPI)NonAf (60.0-200.0) Glucose 121 H (74-99) mg/dL POC Glucose (mg/dL) 134 H 190 H (75-99) mg/dL Calcium (8.7-10.3) mg/dL Magnesium (1.5-2.4) mg/dL Total Protein 5.9 L (6.3-8.2) g/dL Albumin 3.3 L (3.5-5.0) g/dL 05/19/21 05/19/21 05/19/21 Range/Units 04:52 04:52 07:13 RBC 2.81 L (4.30-5.90) m/uL Hgb 8.7 L (13.0-17.5) gm/dL Hct 26.5 L (39.0-53.0) % Lymphocytes # 0.85 L (1.0-4.8) k/uL Eosinophils # 0.49 H (0.04-0.35) X 10*3/uL PT (9.0-12.0) sec INR (<1.2) Potassium (3.5-5.1) mmol/L Chloride 112 H (98-107) mmol/L BUN 30.0 H (9-20) mg/dL Creatinine 1.7 H (0.66-1.25) mg/dL Est GFR (CKD-EPI)AfAm 45.0 L (60.0-200.0) Est GFR (CKD-EPI)NonAf 38.9 L (60.0-200.0) Glucose 190 H (74-99) mg/dL POC Glucose (mg/dL) 194 H (75-99) mg/dL Calcium 8.2 L (8.7-10.3) mg/dL Magnesium 0.9 L* (1.5-2.4) mg/dL Total Protein 4.8 L (6.3-8.2) g/dL Albumin 3.00 L (3.5-5.0) g/dL 05/19/21 05/19/21 05/19/21 Range/Units 11:04 11:21 11:34 RBC (4.30-5.90) m/uL Hgb (13.0-17.5) gm/dL Hct (39.0-53.0) % Lymphocytes # (1.0-4.8) k/uL Eosinophils # (0.04-0.35) X 10*3/uL PT (9.0-12.0) sec INR (<1.2) Potassium (3.5-5.1) mmol/L Chloride (98-107) mmol/L BUN (9-20) mg/dL Creatinine (0.66-1.25) mg/dL Est GFR (CKD-EPI)AfAm (60.0-200.0) Est GFR (CKD-EPI)NonAf (60.0-200.0) Glucose (74-99) mg/dL POC Glucose (mg/dL) 45 L 44 L 52 L (75-99) mg/dL Calcium (8.7-10.3) mg/dL Magnesium (1.5-2.4) mg/dL Total Protein (6.3-8.2) g/dL Albumin (3.5-5.0) g/dL 05/19/21 Range/Units 11:54 RBC (4.30-5.90) m/uL Hgb (13.0-17.5) gm/dL Hct (39.0-53.0) % Lymphocytes # (1.0-4.8) k/uL Eosinophils # (0.04-0.35) X 10*3/uL PT (9.0-12.0) sec INR (<1.2) Potassium (3.5-5.1) mmol/L Chloride (98-107) mmol/L BUN (9-20) mg/dL Creatinine (0.66-1.25) mg/dL Est GFR (CKD-EPI)AfAm (60.0-200.0) Est GFR (CKD-EPI)NonAf (60.0-200.0) Glucose (74-99) mg/dL POC Glucose (mg/dL) 138 H (75-99) mg/dL Calcium (8.7-10.3) mg/dL Magnesium (1.5-2.4) mg/dL Total Protein (6.3-8.2) g/dL Albumin (3.5-5.0) g/dL Diabetes panel 05/18/21 05/18/21 05/19/21 Range/Units 15:26 19:49 04:52 Sodium 140 141 (137-145) mmol/L Potassium 5.5 H 4.5 4.9 (3.5-5.1) mmol/L Chloride 110 H 112 H (98-107) mmol/L Carbon Dioxide 22 23.6 (22-30) mmol/L BUN 30 H 30.0 H (9-20) mg/dL Creatinine 1.73 H 1.7 H (0.66-1.25) mg/dL Glucose 121 H 190 H (74-99) mg/dL Calcium 9.2 8.2 L (8.4-10.2) mg/dL AST 18 17 (17-59) U/L ALT 14 13 (4-49) U/L Alkaline Phosphatase 117 113 (38-126) U/L Total Protein 5.9 L 4.8 L (6.3-8.2) g/dL Albumin 3.3 L 3.00 L (3.5-5.0) g/dL Calcium panel 05/18/21 05/19/21 Range/Units 15:26 04:52 Calcium 9.2 8.2 L (8.4-10.2) mg/dL Albumin 3.3 L 3.00 L (3.5-5.0) g/dL Pituitary panel 05/18/21 05/18/21 05/19/21 Range/Units 15:26 19:49 04:52 Sodium 140 141 (137-145) mmol/L Potassium 5.5 H 4.5 4.9 (3.5-5.1) mmol/L Chloride 110 H 112 H (98-107) mmol/L Carbon Dioxide 22 23.6 (22-30) mmol/L BUN 30 H 30.0 H (9-20) mg/dL Creatinine 1.73 H 1.7 H (0.66-1.25) mg/dL Glucose 121 H 190 H (74-99) mg/dL Calcium 9.2 8.2 L (8.4-10.2) mg/dL Adrenal panel 05/18/21 05/18/21 05/19/21 Range/Units 15:26 19:49 04:52 Sodium 140 141 (137-145) mmol/L Potassium 5.5 H 4.5 4.9 (3.5-5.1) mmol/L Chloride 110 H 112 H (98-107) mmol/L Carbon Dioxide 22 23.6 (22-30) mmol/L BUN 30 H 30.0 H (9-20) mg/dL Creatinine 1.73 H 1.7 H (0.66-1.25) mg/dL Glucose 121 H 190 H (74-99) mg/dL Calcium 9.2 8.2 L (8.4-10.2) mg/dL Total Bilirubin 0.2 0.2 (0.2-1.3) mg/dL AST 18 17 (17-59) U/L ALT 14 13 (4-49) U/L Alkaline Phosphatase 117 113 (38-126) U/L Total Protein 5.9 L 4.8 L (6.3-8.2) g/dL Albumin 3.3 L 3.00 L (3.5-5.0) g/dL - Imaging Comments: CT angiogram of head and neck showing moderate plaque of the right ICA estimated 60% reduction, brain normal. CT of the brain showed age-related atrophic and chronic vessel ischemic changes without acute intracranial process seen at this time Assessment and Plan Assessment: 1. Symptomatic right ICA stenosis 2. TIA, left upper extremity numbness and facial numbness, now resolved 3. Lung cancer 4. History COPD 5. History coronary artery disease 6. History DVT 7. Hypertension 8. Hyperlipidemia 9. Type 2 diabetes mellitus Plan: 1. Carotid ultrasound ordered 2. Continue aspirin, xarelto, and statin 3. CTA head and neck reviewed 4. Appreciate recommendations from neurology 5. Further recommendations to follow Thank you for this consultation and allowing us to take part plan of care of your patient during his hospital stay The impression and plan of care has been dictated as directed. Dr. Castro I performed a history and examination of this patient, discussed the same with the dictator. I agree with the dictator's note ,documented as a scribe. Any additional findings or plans will be noted.
--- NOTE | 2021-05-19 16:34 | P.PN ---
Subjective Progress Note Date: 05/19/21 Patient was seen and evaluated by me this morning. He had an episode of hypoglycemia that did not respond well to orange juice. He was given half amp of D50 and blood glucose afterwards improved to 138. Patient otherwise is doing well. He denies any numbness or tingling. No acute events overnight. Objective - Vital Signs Vital signs: Vital Signs Temp 98.3 F 05/19/21 14:43 Pulse 80 05/19/21 16:20 Resp 18 05/19/21 14:43 BP 144/66 05/19/21 14:43 Pulse Ox 96 05/19/21 14:43 Intake & Output 05/18/21 05/19/21 05/19/21 18:59 06:59 18:59 Intake Total 240 840 Output Total 400 Balance 240 440 Weight 92.986 kg Intake: Intake, IV Titration 120 Amount Sodium Chloride 0.9% 1, 120 000 ml @ 999 mls/hr IV . Q1H1M STA Rx#:[id number] Oral 240 720 Output: Urine 400 Other: # Voids 3 - Exam General: The patient is awake and alert, in no distress Eye: there is normal conjunctiva bilaterally. Neck: The neck is supple, there is no JVD. Cardiovascular: Normal S1-S2, no S3-S4, no murmurs. Respiratory: Lungs clear to auscultation bilaterally Gastrointestinal: Abdomen is soft, nontender Musculoskeletal: There is no pedal edema. Neurological:. Speech is normal. Skin: Skin is warm and dry - Labs CBC & Chem 7: 05/19/21 04:52 05/19/21 04:52 Labs: Abnormal Lab Results - Last 24 Hours (Table) 05/18/21 05/19/21 05/19/21 Range/Units 22:03 01:43 04:52 RBC (4.40-5.60) X 10*6/uL Hgb (13.0-17.0) g/dL Hct (39.6-50.0) % Lymphocytes # (0.90-5.00) X 10*3/uL Eosinophils # (0.04-0.35) X 10*3/uL Chloride 112 H (96-109) mmol/L BUN 30.0 H (9.0-27.0) mg/dL Creatinine 1.7 H (0.6-1.5) mg/dL Est GFR (CKD-EPI)AfAm 45.0 L (60.0-200.0) Est GFR (CKD-EPI)NonAf 38.9 L (60.0-200.0) Glucose 190 H (70-110) mg/dL POC Glucose (mg/dL) 134 H 190 H (75-99) mg/dL Calcium 8.2 L (8.7-10.3) mg/dL Magnesium 0.9 L* (1.5-2.4) mg/dL Total Protein 4.8 L (6.2-8.2) g/dL Albumin 3.00 L (3.80-4.90) g/dL 05/19/21 05/19/21 05/19/21 Range/Units 04:52 07:13 11:04 RBC 2.81 L (4.40-5.60) X 10*6/uL Hgb 8.7 L (13.0-17.0) g/dL Hct 26.5 L (39.6-50.0) % Lymphocytes # 0.85 L (0.90-5.00) X 10*3/uL Eosinophils # 0.49 H (0.04-0.35) X 10*3/uL Chloride (96-109) mmol/L BUN (9.0-27.0) mg/dL Creatinine (0.6-1.5) mg/dL Est GFR (CKD-EPI)AfAm (60.0-200.0) Est GFR (CKD-EPI)NonAf (60.0-200.0) Glucose (70-110) mg/dL POC Glucose (mg/dL) 194 H 45 L (75-99) mg/dL Calcium (8.7-10.3) mg/dL Magnesium (1.5-2.4) mg/dL Total Protein (6.2-8.2) g/dL Albumin (3.80-4.90) g/dL 05/19/21 05/19/21 05/19/21 Range/Units 11:21 11:34 11:54 RBC (4.40-5.60) X 10*6/uL Hgb (13.0-17.0) g/dL Hct (39.6-50.0) % Lymphocytes # (0.90-5.00) X 10*3/uL Eosinophils # (0.04-0.35) X 10*3/uL Chloride (96-109) mmol/L BUN (9.0-27.0) mg/dL Creatinine (0.6-1.5) mg/dL Est GFR (CKD-EPI)AfAm (60.0-200.0) Est GFR (CKD-EPI)NonAf (60.0-200.0) Glucose (70-110) mg/dL POC Glucose (mg/dL) 44 L 52 L 138 H (75-99) mg/dL Calcium (8.7-10.3) mg/dL Magnesium (1.5-2.4) mg/dL Total Protein (6.2-8.2) g/dL Albumin (3.80-4.90) g/dL Assessment and Plan Assessment: This is a 75-year-old male who presented to the emergency room with a transient numbness involving his left hand and left side of his lower lip. His symptoms resolved quickly prior to presentation to the ER. He was placed on observation for further management. 1. Transient numbness involving both hands worse on the left with some numbness in the left lower lip. Patient was seen and evaluated by neurology. This was thought to be recurrent TIA. He is on aspirin and Rivaroxaban. Patient had similar presentation in January and at that time he had extensive workup including MRI of the brain that was unremarkable. He also had an echocardiogram. Patient had a CT angiogram of the head and neck in the ER with no acute findings. There is 60% stenosis involving right ICA noted on prior CT 8. Vascular surgery consulted by neurology for further evaluation. 2. Type 2 diabetes with episode of hypoglycemia: Patient told me that he takes Levemir 50 units at bedtime and does not take any NovoLog throughout the day. His home medication list showed NovoLog 10 units 3 times a day before each meal. This will be discontinued. I would also decrease his Levemir dose to 45 units at bedtime continue to monitor blood glucose closely 3. Chronic medical problems: Lung cancer on chemotherapy, stage IIIB chronic kidney disease, history of DVT on anticoagulation with a rectal, hypertension, hyperlipidemia
[2021-05-19 17:25] LABS: Glucose,Whole Blood 270 mg/dL (75-99)
--- NOTE | 2021-05-19 17:28 | US ---
EXAMINATION TYPE: US carotid duplex BILAT DATE OF EXAM: 05/19/2021 COMPARISON: 2019 CLINICAL HISTORY: TIA. Exam done portable. EXAM MEASUREMENTS: RIGHT: Peak Systolic Velocity (PSV) cm/sec ----- Right CCA: 98.7 ----- Right ICA: 107.0 ----- Right ECA: 104.0 ICA/CCA ratio: 1.1 RIGHT: End Diastole cm/sec ----- Right CCA: 17.6 ----- Right ICA: 20.4 ----- Right ECA: 9.2 LEFT: Peak Systolic Velocity (PSV) cm/sec ----- Left CCA: 93.7 ----- Left ICA: 76.8 ----- Left ECA: 109.0 ICA/CCA ratio: 0.8 LEFT: End Diastole cm/sec ----- Left CCA: 18.3 ----- Left ICA: 17.6 ----- Left ECA: 13.4 VERTEBRALS (direction of flow): Right Vertebral: Antegrade Left Vertebral: Antegrade Rhythm: Normal No significant stenosis. IMPRESSION: There is antegrade flow in the vertebral arteries. The images and measurements suggest less than 15% stenosis in both internal carotid arteries. Criteria for Assigning % of Stenosis / Diameter reduction (Estimation based on the indirect measurements of the internal carotid artery velocities (ICA PSV). 1. Normal (no stenosis)=ICA PSV < 125 cm/s: ratio < 2.0: ICA EDV<40 cm/s. 2. Less than 50% stenosis=ICA PSV < 125 cm/s: ratio < 2.0: ICA EDV<40 cm/s. 3. 50 to 69% stenosis=ICA PSV of 125 to 230 cm/s: ration 2.0 ? 4.0: ICA EDV 40-100 cm/s. 4. Greater than 70% stenosis to near occlusion= ICA PSV > 230 cm/s: ratio > 4.0: ICA EDV > 100 cm/s. 5. Near occlusion= ICA PSV velocities may be low or undetectable: variable ratio and ICA EDV. 6. Total occlusion=unable to detect flow.
[2021-05-19] MEDS: INSULIN ASPART (NovoLOG) 100 UNIT/ML VIAL SQ SCH (18:26)
[2021-05-19 18:27] LABS: Glucose,Whole Blood 270 mg/dL (75-99)
[2021-05-19 20:23] LABS: ALT 13 U/L (4-49); AST 19 U/L (17-59); African American GFR (CKD) 40 (>60 ml/min/1.73 sqM); Albumin 2.8 g/dL (3.5-5.0); Albumin/Globulin Ratio 1.2; Alkaline Phosphatase 108 U/L (38-126); Anion Gap 7 mmol/L; Blood Urea Nitrogen 32 mg/dL (9-20); Calcium 8.7 mg/dL (8.4-10.2); Carbon Dioxide 21 mmol/L (22-30); Chloride 108 mmol/L (98-107); Globulin 2.3 g/dL; Glucose 269 mg/dL (74-99); Non-African American GFR(CKD) 34 (>60 ml/min/1.73 sqM); Potassium 5.4 mmol/L (3.5-5.1); Sodium 136 mmol/L (137-145); Total Bilirubin 0.1 mg/dL (0.2-1.3); Total Protein 5.1 g/dL (6.3-8.2)
[2021-05-19 20:25] LABS: Hemoglobin A1C 7.4 % (4.0-6.0)
[2021-05-19 20:27] LABS: Glucose,Whole Blood 266 mg/dL (75-99)
[2021-05-19] MEDS ORDERED: INSULIN DETEMIR (LEVEMIR) 100 UNIT/ML SYR SQ SCH (21:00)
[2021-05-19] MEDS: MAGNESIUM OXIDE 400 MG TAB PO SCH (21:04)
[2021-05-19] MEDS: amLODIPine 10 MG TAB PO SCH (21:04)
[2021-05-20 01:21] LABS: Glucose,Whole Blood 196 mg/dL (75-99)
[2021-05-20] MEDS: LEVOTHYROXINE 25 MCG TAB PO SCH (05:46)
[2021-05-20 07:40] LABS: Glucose,Whole Blood 116 mg/dL (75-99)
[2021-05-20] MEDS: INSULIN ASPART (NovoLOG) 100 UNIT/ML VIAL SQ SCH ×2 (07:55→13:10)
[2021-05-20 08:03] VITALS: BP 145/70; RESP 16; TEMP 98.4
[2021-05-20] MEDS: IPRATROPIUM-ALBUTEROL 3 ML NEB INHALATION PRN ×2 (08:22→11:56)
[2021-05-20] MEDS: ASPIRIN 81 MG PO SCH (08:38)
[2021-05-20] MEDS: levETIRAcetam 500 MG TAB PO SCH (08:38)
[2021-05-20] MEDS: PANTOPRAZOLE 40 MG TABLET PO SCH (08:38)
[2021-05-20] MEDS: METOPROLOL TARTRATE 25 MG TAB PO SCH (08:38)
[2021-05-20] MEDS: ATORVASTATIN 20 MG TAB PO SCH (08:38)
[2021-05-20] MEDS: RIVAROXABAN 15 MG TAB PO SCH (08:38)
[2021-05-20] MEDS: TROSPIUM CHLORIDE 20 MG TABLET PO SCH (08:38)
[2021-05-20] MEDS: MAGNESIUM OXIDE 400 MG TAB PO SCH (08:38)
[2021-05-20] MEDS: lisinopriL 20 MG TAB PO SCH (08:38)
[2021-05-20 10:11] LABS: Anion Gap 7.1 mmol/L (4.00-12.00); BUN/Creat Ratio 18.33 Ratio (12.00-20.00); Calcium 8.3 mg/dL (8.7-10.3); Carbon Dioxide 22.9 mmol/L (21.6-31.8); Magnesium 1.3 mg/dL (1.5-2.4); Non-African American GFR(CKD) 36.3 (60.0-200.0); Potassium 4.8 mmol/L (3.5-5.5)
[2021-05-20 11:32] LABS: Glucose,Whole Blood 136 mg/dL (75-99)
[2021-05-20] MEDS: MAGNESIUM SULFATE-D5W PMX 1 GM in DEXTROSE/WATER 1 100ML.BAG IVPB SCH ×2 (11:34→13:09)
[2021-05-20 11:59] VITALS: PULSE 80
--- NOTE | 2021-05-20 21:32 | P.DS ---
Providers Date of admission: 05/19/21 13:25 Expected date of discharge: 05/20/21 Attending physician: Jaci Freeman Consults: 05/18/21 17:32 Consult Physician Stat Consulting Provider: Carl Riley Consult Reason/Comments: TIA Do you want consulting provider notified?: Already Contacted 05/19/21 10:33 Consult Physician Routine Consulting Provider: Lyubov Castro Consult Reason/Comments: Recurrent TIA on left side, Rt ICA 60%, prob symptomatic Do you want consulting provider notified?: Yes Primary care physician: Renzo Boyer [facility] Course: Discharge Diagnosis: TIA Right ICA stenosis Hypomagnesemia Diabetes mellitus type 2, insulin-requiring with episode of hypoglycemia Chronic kidney disease stage III Lung cancer on K COPD without exacerbation Dyslipidemia Hypertension Hypothyroidism GERD History of DVT maintained on Xarelto Hospital Course: Patient is a 75-year-old male with a history of recurrent TIA/CVA, diabetes, dyslipidemia, and DVT who presented to the emergency room with complaints of left hand numbness and left lip numbness. In the ER he underwent a head CT which showed age-related atrophy and chronic small vessel ischemic changes without acute intracranial process. He underwent a CTA head and neck which showed moderate plaque within the right ICA with a diameter reduction of 60%. He was seen by neurology. His symptoms had resolved within 45 minutes. Patient has history of similar symptoms and there was concern that he had symptomatic right stenosis. Patient was already taking Xarelto on aspirin prior to admission. Vascular surgery was consulted who recommended outpatient follow-up for possible carotid stenting. He did undergo carotid Doppler which showed ante grade flow in the vertebral arteries with a less than 15% stenosis in both internal carotid arteries. He was subsequently determined stable for discharge Follow-up: Dr. Riley in 1-2 days, Dr. Castro in 1 week, Dr. Hurt of neurology in 1 week. Levemir was decreased. He was continued on aspirin, Xarelto, and simvastatin. A1c was noted to be 7.4. Patient seen and examined at bedside. Feels as though he is back to baseline. States his wheezing is chronic and his dyspnea is unchanged from baseline. Feeling well and wants to go home. Daughter at bedside. All questions were answered. Vital signs reviewed and stable. General: non toxic, no distress, appears at stated age Derm: warm, dry Head: atraumatic, normocephalic, symmetric Eyes: EOMI, no lid lag, anicteric sclera Mouth: no lip lesion, mucus membranes moist Cardiovascular: S1S2 reg, no murmur, positive posterior tibial pulse bilateral, Lungs: Wheezing bilateral with decreased breath sounds , no accessory muscle use Abdominal: soft, nontender to palpation, no guarding, no appreciable organomegaly Ext: no gross muscle atrophy, no edema, no contractures Neuro: CN II-XI grossly intact, no focal neuro deficits Psych: Alert, oriented, appropriate affect A total of 25 minutes of time were spent preparing this complex discharge summary . Patient Condition at Discharge: Stable Plan - Discharge Summary Discharge Rx Participant: Yes New Discharge Prescriptions: New Magnesium Oxide [Mag-Ox] 400 mg PO BID #60 tab Aspirin [Adult Low Dose Aspirin EC] 81 mg PO DAILY #30 tablet.dr Continue Simvastatin [Zocor] 40 mg PO DAILY amLODIPine [Norvasc] 10 mg PO HS levETIRAcetam [Keppra] 500 mg PO BID Metoprolol Tartrate 25 mg PO BID #60 tab Omeprazole 20 mg PO DAILY Levothyroxine Sodium [Synthroid] 25 mcg PO DAILY@30 30 Days #30 tab HYDROcodone/APAP 5-325MG [[place] 5-325] 1 tab PO BID PRN PRN Reason: Pain Rivaroxaban [Xarelto] 15 mg PO DAILY Ipratropium-Albuterol Nebulize [Duoneb 0.5 mg-3 mg/3 ml Soln] 3 ml INHALATION RT-QID PRN PRN Reason: Shortness Of Breath Solifenacin Succinate [Vesicare] 10 mg PO DAILY lisinopriL [Zestril] 20 mg PO DAILY Discontinued Insulin Detemir [Levemir Flextouch] 50 units SQ HS Insulin Aspart [NovoLOG Flexpen] 10 units SQ AC-TID Discharge Medication List Simvastatin [Zocor] 40 mg PO DAILY 07/30/19 [History] amLODIPine [Norvasc] 10 mg PO HS 07/30/19 [History] levETIRAcetam [Keppra] 500 mg PO BID 07/30/19 [History] Metoprolol Tartrate 25 mg PO BID #60 tab 09/10/19 [Rx] Omeprazole 20 mg PO DAILY 07/06/20 [History] Levothyroxine Sodium [Synthroid] 25 mcg PO DAILY@0630 30 Days #30 tab 07/08/20 [Rx] HYDROcodone/APAP 5-325MG [[place] 5-325] 1 tab PO BID PRN 01/12/21 [History] Ipratropium-Albuterol Nebulize [Duoneb 0.5 mg-3 mg/3 ml Soln] 3 ml INHALATION RT-QID PRN 01/12/21 [History] Rivaroxaban [Xarelto] 15 mg PO DAILY 01/12/21 [History] Solifenacin Succinate [Vesicare] 10 mg PO DAILY 01/12/21 [History] lisinopriL [Zestril] 20 mg PO DAILY 05/18/21 [History] Aspirin [Adult Low Dose Aspirin EC] 81 mg PO DAILY #30 tablet. 05/20/21 [Rx] Magnesium Oxide [Mag-Ox] 400 mg PO BID #60 tab 05/20/21 [Rx] Follow up Appointment(s)/Referral(s): Renzo Boyer MD [Primary Care Provider] - 1-2 days Shaji Kenyon MD [REFERRING] - 1 Week Lyubov Castro DO [STAFF PHYSICIAN] - 1 Week Activity/Diet/Wound Care/Special Instructions: Activity: as tolerated Diet: Heart Healthy Carb Consistent Special Instructions: return to hospital if your symptoms recur Discharge Disposition: HOME SELF-CARE
--- NOTE | 2021-06-01 10:27 | CDI ---
Documentation Clarification Form Date: 06/01/2021 09:27:20 AM From: Rosio Polo RN, CCDS Admit Date: 05/19/2021 01:25:00 PM Patient Name: Isrrael Torres Visit Number: [id number] Discharge Date: 05/20/2021 02:53:00 PM ATTENTION: The Clinical Documentation Specialists (CDI) and [facility] Coding Staff appreciate your assistance in clarifying documentation. Please respond to the clarification below the line at the bottom and electronically sign. The CDI & [facility] Coding staff will review the response and follow-up if needed. Please note: Queries are made part of the Legal Health Record. If you have any questions, please contact the author of this message via ITS. Dr. Joanna Hwang TIA is documented in the discharge summary on 05/20 and patient is noted to have right ICA stenosis. Please clarify if there is a relationship between the TIA and right ICA stenosis. 05/19 Neurology: Recurrent admissions for TIA involving right hemispheric region and left sided symptomatology, Patient has at least moderate stenosis, 60% stenosis of the right ICA as per current CTA report. It appears the stenosis is symptomatic. 05/19 Surgery consult: Symptomatic right ICA stenosis. History/Risk Factors: TIA, CVA, COPD, Diabetes, Hypertension [place], Lung cancer Clinical Indicators: 75-year-old male present with left side numbness. He was alert and oriented x4 with NIH stroke scale of 3, 1 for mild left-sided face droop of the lower jaw, l1 for mild sensory deficits of the left upper extremity, 1 for mild aphasia on evaluation in ED. On reevaluation, patient's NIH score is 1, as his numbness has resolved on left upper extremity and is no longer aphasic in ED. Treatment: Asa 81 mg po daily Xarelto 15 mg po daily Neuro checks per protocol Plan intervention as outpt in 1-2 weeks. Both CEA and TCAR discussed with patient. (Dr. Castro) Please clarify the relationship, if any, which is clinically appropriate for this patient: [ x ] TIA due to right ICA stenosis, symptomatic [ ] TIA NOT related to right ICA stenosis [ ] Other explanation of clinical findings (please specify) [ ] Unable to determine (no explanation for clinical findings) (Template Last Revised: January 2021) [ x ] TIA due to right ICA stenosis, symptomatic MTDD
== END 2021-05-20 14:53 | disposition home or self-care (01) | DRG 69 ==
LOC: EC 15:03 → 6NMEDSUR 17:32 → OBSVTOIN 05-19 13:25
PROVIDERS: ADMIT Internal Medicine; ATTEND Internal Medicine
DX: G45.9 Transient cerebral ischemic attack, unspecified (principal); D64.9 Anemia, unspecified; E03.9 Hypothyroidism, unspecified; E11.22 Type 2 diabetes mellitus with diabetic chronic kidney disease; E11.649 Type 2 diabetes mellitus with hypoglycemia without coma; E78.5 Hyperlipidemia, unspecified; I25.10 Atherosclerotic heart disease of native coronary artery without angina pectoris; G31.89 Other specified degenerative diseases of nervous system; E83.42 Hypomagnesemia; I12.9 Hypertensive chronic kidney disease with stage 1 through stage 4 chronic kidney disease, or unspecified chronic kidney disease; E87.5 Hyperkalemia; R29.810 Facial weakness; F32.9 Major depressive disorder, single episode, unspecified; R13.10 Dysphagia, unspecified; F41.9 Anxiety disorder, unspecified; G40.909 Epilepsy, unspecified, not intractable, without status epilepticus; N18.32 Chronic kidney disease, stage 3b; J44.9 Chronic obstructive pulmonary disease, unspecified; K21.9 Gastro-esophageal reflux disease without esophagitis; M19.90 Unspecified osteoarthritis, unspecified site; R20.0 Anesthesia of skin; N40.0 Benign prostatic hyperplasia without lower urinary tract symptoms; I25.2 Old myocardial infarction; Z79.01 Long term (current) use of anticoagulants; Z79.4 Long term (current) use of insulin; Z79.82 Long term (current) use of aspirin; Z79.890 Hormone replacement therapy; Z79.899 Other long term (current) drug therapy; Z85.118 Personal history of other malignant neoplasm of bronchus and lung; Z86.718 Personal history of other venous thrombosis and embolism; Z86.73 Personal history of transient ischemic attack (TIA), and cerebral infarction without residual deficits; Z87.891 Personal history of nicotine dependence; Z92.21 Personal history of antineoplastic chemotherapy; Z87.19 Personal history of other diseases of the digestive system; Z90.49 Acquired absence of other specified parts of digestive tract; Z87.01 Personal history of pneumonia (recurrent)
CPT/HCPCS: 36415; 70450; 70496; 70498; 71045; 80048; 80053; 83036; 83735; 84132; 84484; 85025; 85610; 85730; 93005; 93880; 94640; 96374; 96375; 99285

== ENCOUNTER 2021-06-03 09:37 | Inpatient (IN) | payer MEDICARE, OTHER ==
[2021-06-02 08:49] VITALS: BMI 24.0
[~2021-06-03 09:37] MED LIST changes: +ALPRAZolam 0.25 MG TAB PO PRN; +ALPRAZolam 0.5 MG TAB PO PRN; +ASPIRIN 81 MG PO PRN; +CLOPIDOGREL 75 MG TAB PO PRN; +HYDROcodone/APAP 5-325MG 1 EACH TAB ONE; +NITROGLYCERIN SL TABS 0.4 MG TAB SUBLINGUAL PRN; +RX INFO: IV CONTRAST WAS GIVEN 1 EACH MISC MISCELLANE PRN; +SODIUM CHLORIDE 0.9% 1,000 ML in EMPTY BAG 1 BAG IV ONE; -SODIUM CHLORIDE 0.9% 500 ML 500 ML in EMPTY BAG 1 BAG IV PRN; +ceFAZolin 2 GM in SODIUM CHLORIDE 0.9% 500 ML 500 ML IRRIGATION PRN
[2021-06-03 10:39] LABS: Basophils % (A) 0 %; Eosinophils # (A) 0.7 k/uL (0-0.7); Eosinophils % (A) 7 %; HCT 34.6 % (39.0-53.0); HGB 11.6 gm/dL (13.0-17.5); Lymphocytes # (A) 1.1 k/uL (1.0-4.8); Lymphocytes % (A) 12 %; MCH 31.4 pg (25.0-35.0); MCHC 33.6 g/dL (31.0-37.0); MCV 93.4 fL (80.0-100.0); Mean Platelet Volume 8.3; Monocytes # (A) 0.4 k/uL (0-1.0); Monocytes % (A) 5 %; Neutrophils # (A) 7.4 k/uL (1.3-7.7); Neutrophils % (A) 75 %; Platelet Count 190 k/uL (150-450); RDW 13.7 % (11.5-15.5); WBC 9.8 k/uL (3.8-10.6)
[2021-06-03] MEDS ORDERED: LIDOCAINE 1% INJ 10MG/ML (20 ML MDV) ONE (13:43)
[2021-06-03] MEDS ORDERED: fentaNYL (PF) 50 MCG/ML 2 ML AMP ONE (13:56)
[2021-06-03] MEDS ORDERED: PROPOFOL 10 MG/ML 20 ML VIAL IV ONE (13:56)
[2021-06-03] MEDS ORDERED: PROTAMINE SULFATE 10 MG/ML 5 ML VIAL IV ONE (13:56)
[2021-06-03] MEDS ORDERED: HEPARIN SODIUM,PORCINE 10,000 UNIT/ML 1 ML VIAL ONE (13:56)
[2021-06-03] MEDS ORDERED: GLYCOPYRROLATE 0.2 MG/ML 2 ML VIAL ONE (13:56)
[2021-06-03] MEDS ORDERED: PHENYLEPHRINE-0.9% NACL SYG 1,000 MCG/10 ML SYRINGE ONE (13:56)
[2021-06-03] MEDS ORDERED: DEXMEDETOMIDINE/0.9% NACL(PMX) 400 MCG/100 ML IV ONE (13:56)
[2021-06-03] MEDS ORDERED: SODIUM CHLORIDE 0.9% 1,000 ML IV ONE ×3 (14:09→17:00)
[2021-06-03] MEDS ORDERED: GELATIN SPONGE,ABSORB (LARGE) 1 EACH SPONGE TOPICAL ONE (15:32)
[2021-06-03] MEDS ORDERED: THROMBIN (BOVINE) 5,000 UNIT VIAL TOPICAL ONE (15:32)
[2021-06-03] MEDS ORDERED: LIDOCAINE 1% INJ 10MG/ML (20 ML MDV) SQ ONE (15:33)
[2021-06-03] MEDS ORDERED: HEPARIN SODIUM,PORCINE 10,000 UNIT in SODIUM CHLORIDE 0.9% 1,000 ML IRRIGATION ONE (15:35)
[2021-06-03] MEDS ORDERED: IOPAMIDOL-250 50ML BTL INTRAARTER ONE (16:00)
[2021-06-03] MEDS ORDERED: MAG HYDROX/AL HYDROX/SIMETH 30 ML CUP PO PRN (16:51)
[2021-06-03] MEDS ORDERED: ATROPINE SULFATE 0.1 MG/ML 10ML SYRINGE IV PRN (16:51)
[2021-06-03 17:23] LABS: Glucose,Whole Blood 105 mg/dL (75-99)
--- NOTE | 2021-06-03 17:32 | P.OP ---
Date of Procedure: 06/03/21 Description of Procedure: Preoperative diagnosis:Right internal carotid artery [symptomatic, >50% stenosis] Postoperative diagnosis: Same Procedure: [Right]Transcarotid artery revascularization with stenting. [Left] common femoral vein central venous catheter placement under ultrasound guidance Surgeon: Lyubov Castro DO Supervisor [employer]: [Orin Crawford] Anesthesia: Conscious sedation Complications: None Condition: Stable Flow reversal time: [17 minutes] minutes Lesion length: [15 mm] mm Indication for procedure: [Isrrael is a 75-year-old male with a symptomatic right internal carotid artery stenosis. Initially he was trialed on best medical therapy which he subsequently ended up having another spell of symptoms that was thought to be TIA due to the symptomatic carotid by neurology. At home he has a history of DVT PE and cancer for which he is still undergoing therapies. It was discussed with his primary care physician who did not feel comfortable discontinuing his blood the medication and transferring overhead in 2 to antiplatelet therefore he is on aspirin answer all toe at this time. Risks and benefits were discussed with the family who seemingly understood and were willing to proceed as such] Operative narrative: After written and informed consent was obtained the patient all risks benefits and competitions were described the patient was brought to the Joint Terminal Attack Controller and laid in a supine position. The area of the neck and groins were prepped and draped in usual sterile fashion after appropriate anesthetic was performed per the anesthesiologist. A timeout was performed in normal fashion and antibiotics were administered prior to incision. Utilizing ultrasound the [right] common carotid artery was located and a transverse incision was created overlying this area after proper anesthetization. Dissection was carried between the sternocleidomastoid musculature down to the carotid sheath. The sheath was then incised and the common carotid artery was located and dissected free in a circumferential manner and controlled with umbilical tape. Once controlled, attention was placed down to the common femoral vein and utilizing ultrasound the vein was cannulated and the 8-Mexican sheath was placed in normal fashion. Attention was then placed back to the carotid artery and the patient was administered heparin and followed with ACTs and redosed as needed for ACT above 250. A pursestring suture was then placed at the common carotid artery with 5-0 Prolene and utilizing a micropuncture needle the common carotid artery was accessed and wire was placed followed by a 4-Mexican sheath. Carotid angiogram was then obtained demonstrating stenosis in the internal carotid artery. Stiff wire was then placed followed by the 8 [place] sheath. Flow reversal was then established with the enroute PIN INSERTER system after patient's blood pressure was increased to above 160, heart rate above 60 and ACT above 250. 014 wire was then placed across the lesion followed by a [5.5 x 30] mm Ortiz balloon and balloon angioplasty was performed followed by an [9 x 30] mm Silkroad stent. Postdilatation was [not] performed and final angiogram was obtained demonstrating complete resolution of the stenosis. All guidewires and catheters were removed and the sheath was removed and the arteriotomy was secured with the previously placed pursestring suture. Hemostasis was assured with Gelfoam and thrombin. A small 10-Mexican drain was placed The area was irrigated and closed. The platysma was closed with 3-0 Vicryl. The skin was closed with running 4-0 Monocryl in subcuticular fashionThe femoral sheath was also removed and pressure was held for hemostasis. The patient all procedure well and was moving all extremities and following commands. The patient was then sent to PACU for recovery.
[2021-06-03 17:53] LABS: Glucose,Whole Blood 122 mg/dL (75-99)
--- NOTE | 2021-06-03 17:57 | IR ---
EXAMINATION TYPE: IR stent intravas non coronary DATE OF EXAM: 06/03/2021 COMPARISON: NONE HISTORY: Fluoroscopy time. Fluoroscopy was provided to the referring clinician.
[2021-06-03] MEDS ORDERED: ONDANSETRON 4 MG/2 ML VIAL IVP PRN (18:05)
[2021-06-03 20:31] LABS: Glucose,Whole Blood 133 mg/dL (75-99)
[2021-06-03] MEDS ORDERED: ATORVASTATIN 40 MG TAB PO SCH (21:00)
[2021-06-03] MEDS ORDERED: RIVAROXABAN 20 MG TAB PO SCH (21:00)
[2021-06-04] MEDS: PHENYLEPHRINE 40 MG in SODIUM CHLORIDE 0.9% 250 ML IV SCH ×2 (00:05→11:47)
[2021-06-04 03:51] LABS: Basophils % (A) 0 %; Eosinophils # (A) 0.2 k/uL (0-0.7); Eosinophils % (A) 2 %; HCT 26.7 % (39.0-53.0); Lymphocytes # (A) 0.8 k/uL (1.0-4.8); Lymphocytes % (A) 11 %; MCH 32.1 pg (25.0-35.0); MCV 94.5 fL (80.0-100.0); Mean Platelet Volume 8.6; Monocytes # (A) 0.4 k/uL (0-1.0); Monocytes % (A) 6 %; Neutrophils # (A) 5.9 k/uL (1.3-7.7); Neutrophils % (A) 79 %; Platelet Count 132 k/uL (150-450); RBC 2.82 m/uL (4.30-5.90); RDW 13.6 % (11.5-15.5); WBC 7.4 k/uL (3.8-10.6)
[2021-06-04 04:00] LABS: HGB 9.1 gm/dL (13.0-17.5)
[2021-06-04 04:21] LABS: Calcium 7.8 mg/dL (8.4-10.2); Potassium 5.4 mmol/L (3.5-5.1)
[2021-06-04 06:36] LABS: Glucose,Whole Blood 196 mg/dL (75-99)
[2021-06-04] MEDS ORDERED: ASPIRIN 325 MG TAB PO SCH (09:00)
[2021-06-04] MEDS ORDERED: FUROSEMIDE 40 MG TAB PO PRN (09:09)
--- NOTE | 2021-06-04 09:09 | P.CNPUL ---
History of Present Illness Consult date: 06/04/21 Chief complaint: TCAR. ICU management History of present illness: This patient is 75-year-old with symptomatic right internal carotid artery sten osis. He had a previous TIA back in January 2021. Based on that, the patient underwent a TCAR procedure yesterday and the patient is postop day #1. Currently sitting up on a chair and is calm and comfortable. Surgical wound site is dry clean and intact. Hemodynamically he is stable. He did not require any pressors overnight. No issues with blood pressure or hemodynamic instability. He has recovered from his anesthesia well. He is currently on oxygen at 2 L and his pulse ox 97%. Hemodynamically stable. The patient is very well-known to us. He is on a combination of aspirin and he is on Xarelto because of previous history of a DVT. He is known to have multiple comorbidities. He is known to have COPD with an FEV1 of 47% of predicted. He also is known to have metastatic adenocarcinoma of the lung currently on immunotherapy. He has undergone a previous left upper lobe resection and subsequently was resection of the right upper lobe pulmonary nodule which are not to be metastatic disease with adenocarcinoma. As mentioned, he has been on Xarelto for detention anticoagulation regarding a previous DVT. He has diabetes, hypertension, hyperlipidemia and chronic stage III kidney disease related to diabetic nephropathy. He is also known to have degenerative arthritis. No focal neurological deficit on today's evaluation. He did have breakfast this morning, outpatient medications need to be resumed. Review of Systems Constitutional: Denies chills, Denies fever Eyes: denies as per HPI, denies blurred vision, denies bulging eye, denies decreased vision, denies diplopia, denies discharge, denies dry eye, denies irritation, denies itching, denies pain, denies photophobia, denies loss of peripheral vision, denies loss of vision, denies tunnel vision/blind spots Ears: deny: decreased hearing, ear discharge, earache, tinnitus Ears, nose, mouth and throat: Reports as per HPI Breasts: absent: as per HPI, gynecomastia Cardiovascular: Reports decreased exercise tolerance, Reports dyspnea on exertion Respiratory: Reports dyspnea Gastrointestinal: Reports as per HPI Genitourinary: Reports as per HPI Musculoskeletal: Reports as per HPI Musculoskeletal: absent: ankle pain, ankle stiffness, ankle swelling Integumentary: Reports as per HPI Neurological: Reports as per HPI Psychiatric: Reports as per HPI Endocrine: Reports as per HPI Hematologic/Lymphatic: Reports as per HPI Allergic/Immunologic: Reports as per HPI Past Medical History Past Medical History: Coronary Artery Disease (CAD), Cancer, COPD, CVA/TIA, Diabetes Mellitus, Deep Vein Thrombosis (DVT), Hyperlipidemia, Hypertension, Myocardial Infarction (CO), Osteoarthritis (OA), Pneumonia, Prostate Disorder, Seizure Disorder Additional Past Medical History / Comment(s): Admitted May 2021 TIA @ [facility],07/25 18 L lung cancer with left upper lobectomy/IV chemo but pt states he quit taking chemo early then diagnosed with R lower lobe cancer in August 2019 and had wedge resection and immunotherapy every 3 weeks, bronchitis, TIA and seizure after lung surgery in 2017, DVT L leg, IDDM type II, chronic cervical/back pain, diabetes mellitus, occasional bilateral ankle edema, BPH, chronic stage III kidney disease Last Myocardial Infarction Date:: 05/24/12 History of Any Multi-Drug Resistant Organisms: None Reported Past Surgical History: Back Surgery, Cholecystectomy, Heart Catheterization, Hernia Repair, Tonsillectomy Additional Past Surgical History / Comment(s): 2018 Bronchoscopy with bx, 2017 L upper lobectomy at [facility], August 2019 R lower lung wedge resection, low back surgery, 2011 cardiac cath-treat medically, umbilical hernia repair, bilateral cataract removals Past Anesthesia/Blood Transfusion Reactions: Previous Problems w/ Anesthesia Additional Past Anesthesia/Blood Transfusion Reaction / Comment(s): Seizure and mini stroke following Lt lung surgery 2017 Smoking Status: Former smoker - Past Family History Mother Family Medical History: No Reported History Additional Family Medical History / Comment(s): Mother was healthy Father Family Medical History: Diabetes Mellitus Additional Family Medical History / Comment(s): Father of diabetes at the age of 83 yrs. Medications and Allergies Home Medications Medication Instructions Recorded Confirmed Type Simvastatin [Zocor] 40 mg PO DAILY 07/30/19 06/03/21 History amLODIPine [Norvasc] 10 mg PO HS 07/30/19 06/03/21 History levETIRAcetam [Keppra] 500 mg PO BID 07/30/19 06/03/21 History Metoprolol Tartrate 25 mg PO BID #60 tab 09/10/19 06/03/21 Rx Omeprazole 20 mg PO DAILY 07/06/20 06/03/21 History Levothyroxine Sodium [Synthroid] 25 mcg PO DAILY@0630 30 Days #30 07/08/20 06/03/21 Rx tab HYDROcodone/APAP 5-325MG [[place] 1 tab PO BID PRN 01/12/21 06/03/21 History 5-325] Ipratropium-Albuterol Nebulize 3 ml INHALATION RT-QID PRN 01/12/21 06/03/21 History [Duoneb 0.5 mg-3 mg/3 ml Soln] Rivaroxaban [Xarelto] 15 mg PO DAILY 01/12/21 06/03/21 History Solifenacin Succinate [Vesicare] 10 mg PO DAILY 01/12/21 06/03/21 History lisinopriL [Zestril] 20 mg PO DAILY 05/18/21 06/03/21 History Aspirin [Adult Low Dose Aspirin EC] 81 mg PO DAILY #30 tablet. 05/20/21 06/03/21 Rx Magnesium Oxide [Mag-Ox] 400 mg PO BID #60 tab 05/20/21 06/03/21 Rx Insulin Detemir (Levemir) [Levemir] 50 unit SQ HS 06/02/21 06/03/21 History Furosemide [Lasix] 40 mg PO DAILY PRN 06/03/21 06/03/21 History Allergies Allergy/AdvReac Type Severity Reaction Status Date / Time No Known Allergies Allergy Verified 06/02/21 08:37 Physical Exam Vitals: Vital Signs Temp Pulse Pulse Resp BP BP BP 06/04/21 09:00 75 19 124/59 06/04/21 08:30 70 25 H 134/63 06/04/21 08:00 98.1 F 73 19 120/61 06/04/21 07:30 132/65 06/04/21 07:00 68 25 H 129/65 06/04/21 06:30 68 27 H 118/53 06/04/21 06:00 68 23 111/63 06/04/21 05:30 68 33 H 124/57 06/04/21 05:00 75 15 136/70 06/04/21 04:30 72 37 H 125/69 06/04/21 04:00 98.6 F 73 26 H 124/64 06/04/21 03:30 91 5 L 131/63 06/04/21 03:00 75 77 H 126/62 06/04/21 02:30 80 22 111/52 06/04/21 02:00 78 28 H 119/58 06/04/21 01:30 87 9 L 116/65 06/04/21 01:00 79 27 H 109/53 06/04/21 00:30 78 28 H 121/60 06/04/21 00:10 76 19 121/60 06/04/21 00:00 98.4 F 75 28 H 123/60 06/03/21 23:30 77 37 H 119/84 06/03/21 23:00 78 18 115/58 06/03/21 22:30 72 24 129/68 06/03/21 22:00 66 26 H 124/66 06/03/21 21:30 61 31 H 121/89 06/03/21 21:00 63 23 119/68 06/03/21 20:30 64 25 H 128/68 06/03/21 20:00 96.7 F L 60 24 113/65 06/03/21 19:30 92 21 06/03/21 19:00 53 L 24 06/03/21 18:30 53 L 24 06/03/21 18:00 61 20 124/66 06/03/21 17:34 52 L 16 115/50 125/58 06/03/21 17:20 52 L 16 107/55 106/57 06/03/21 17:05 52 L 16 100/39 105/56 06/03/21 16:50 53 L 16 93/37 102/56 06/03/21 16:35 53 L 16 93/33 103/55 06/03/21 16:20 54 L 16 97/38 103/55 06/03/21 16:09 97.4 F L 56 L 16 117/45 06/03/21 10:33 96.9 F L 76 18 139/66 138/70 Pulse Ox 06/04/21 09:00 94 L 06/04/21 08:30 98 06/04/21 08:00 97 06/04/21 07:30 96 06/04/21 07:00 90 L 06/04/21 06:30 93 L 06/04/21 06:00 96 06/04/21 05:30 97 06/04/21 05:00 91 L 07/31/21 04:30 97 06/04/21 04:00 96 06/04/21 03:30 06/04/21 03:00 97 06/04/21 02:30 97 06/04/21 02:00 98 06/04/21 01:30 97 06/04/21 01:00 96 06/04/21 00:30 95 06/04/21 00:10 97 06/04/21 00:00 97 06/03/21 23:30 97 06/03/21 23:00 97 06/03/21 22:30 97 06/03/21 22:00 98 06/03/21 21:30 99 06/03/21 21:00 99 06/03/21 20:30 99 06/03/21 20:00 98 06/03/21 19:30 06/03/21 19:00 99 06/03/21 18:30 90 L 06/03/21 18:00 93 L 06/03/21 17:34 99 06/03/21 17:20 100 06/03/21 17:05 100 06/03/21 16:50 100 06/03/21 16:35 100 06/03/21 16:20 100 06/03/21 16:09 94 L 06/03/21 10:33 96 Intake and Output 06/03/21 06/04/21 06/04/21 22:59 06:59 14:59 Intake Total 963 80 140 Output Total 200 330 200 Balance 763 -250 -60 Intake: IV 963 80 20 0.9 30 20 Sodium Chloride 0.9% 1, 410 50 000 ml In Empty Bag 1 bag @ 1 ML/KG/HR 82.554 mls/ hr IV .[id number] ONE Rx#: [id number] Oral 120 Output: Drainage 30 Right Neck 30 Urine 200 300 200 Other: Voiding Method Bedside Commode Bedside Commode Bedside Commode # Voids 0 Weight 84 kg GENERAL EXAM: Alert, active, comfortable in no apparent distress. He is currently on 2 L of oxygen by nasal cannula. HEAD: Normocephalic. EYES: Normal reaction of pupils, equal size. NOSE: Clear with pink turbinates. THROAT: No erythema or exudates. NECK: No masses, no JVD. The surgical wound site over the right neck area dry clean and intact and the patient has no obvious hematoma CHEST: No chest wall deformity. LUNGS: Equal air entry with faint bilateral end expiratory wheeze, diminished. CVS: S1 and S2 normal with no audible murmur, regular rhythm. ABDOMEN: No hepatosplenomegaly, normal bowel sounds, no guarding or rigidity. SPINE: No scoliosis or deformity SKIN: No rashes CENTRAL NERVOUS SYSTEM: No focal deficits, tone is normal in all 4 extremities. EXTREMITIES: There is no peripheral edema. No clubbing, no cyanosis. Periph eral pulses are intact. Results - Laboratory Findings CBC and BMP: 06/04/21 03:23 06/04/21 03:23 Abnormal lab findings: Abnormal Labs 06/03/21 06/03/21 06/03/21 10:25 17:22 17:52 RBC 3.70 L Hgb 11.6 L Hct 34.6 L Plt Count Lymphocytes # Sodium Potassium BUN Creatinine Glucose POC Glucose (mg/dL) 105 H 122 H Calcium 06/03/21 06/04/21 06/04/21 20:30 03:23 03:23 RBC 2.82 L Hgb 9.1 L D Hct 26.7 L Plt Count 132 L Lymphocytes # 0.8 L Sodium 135 L Potassium 5.4 H BUN 61 H Creatinine 2.62 H Glucose 198 H POC Glucose (mg/dL) 133 H Calcium 7.8 L 06/04/21 06:34 RBC Hgb Hct Plt Count Lymphocytes # Sodium Potassium BUN Creatinine Glucose POC Glucose (mg/dL) 196 H Calcium - Diagnostic Findings Chest x-ray: image reviewed Assessment and Plan Plan: 1 post carotid endarterectomy on the right TCAR she is postop day #1. Noted the patient has symptomatic carotid artery disease with a previous history of TIA symptoms of left arm tingling and numbness, left face tingling, aphasia, recovered him a and the patient underwent carotid endarterectomy without any major complication and the patient is noted to have minimal amount of output from the IVONE drain which is in the order of 30 mL of bloody serosanguineous drainage since he arrived from the operating room. 2 chronic obstructive pulmonary disease, FEV1 value of 47% of predicted 3 History of metastatic adenocarcinoma of the lung, currently receiving immunotherapy in the form of Keytruda. History of left upper lobe resection for non-small cell lung cancer, history of wedge resection of a pulmonary nodule in the right lung confirming metastatic disease with adenocarcinoma 4 History of DVT, left lower extremity, maintained on Xarelto 5 Diabetes mellitus, Levemir insulin 50 units at bedtime. 6 Hypertension 7 Hyperlipidemia 8 Chronic stage III kidney disease suspect secondary to diabetic nephropathy 9 Degenerative arthritis of the cervical spine 10 Chronic anemia 11 history of seizure disorder maintained on Keppra 12 history of hypothyroidism Plan: Restart DuoNeb nebulized treatments around the clock 4 times a day Continue Xarelto Aspirin May resume Levemir insulin overnight We will reconsult his home medications Provide the patient incentive spirometer Surgery has been a without any major issues and the patient is neurologically intact at this point in time.
[2021-06-04] MEDS: IPRATROPIUM-ALBUTEROL 3 ML NEB INHALATION SCH ×2 (09:13→10:16)
[2021-06-04] MEDS ORDERED: levETIRAcetam 500 MG TAB PO SCH (09:15)
[2021-06-04] MEDS ORDERED: NON FORMULARY DRUG (Simvastatin [Zocor] 40 MG Tablet) PO SCH (09:15)
[2021-06-04] MEDS ORDERED: LEVOTHYROXINE 25 MCG TAB PO SCH (09:30)
[2021-06-04] MEDS ORDERED: IPRATROPIUM-ALBUTEROL 3 ML NEB INHALATION PRN (09:44)
[2021-06-04] MEDS ORDERED: METOPROLOL TARTRATE 25 MG TAB PO SCH (10:00)
[2021-06-04 11:48] LABS: Glucose,Whole Blood 324 mg/dL (75-99)
[2021-06-04 12:08] VITALS: TEMP 97.3
--- NOTE | 2021-06-04 12:33 | P.DS ---
Providers Date of admission: 06/03/21 09:37 Attending physician: Lyubov Castro DO Consults: 06/03/21 16:52 Consult Physician Routine Consulting Provider: Renzo Boyer Consult Reason/Comments: known patient, post carotid surgery Do you want consulting provider notified?: Yes Primary care physician: Renzo Boyer [facility] Course: Isrrael is a 75-year-old male who was found to have symptomatic right ICA stenosis. He came to the hospital on 06/03/2021 for a trans-carotid artery revascularization procedure which he tolerated well without any significant issues. Overnight his drain is brought out minimal serosanguineous drainage. He has maintain adequate blood pressures. He is tolerating a diet and is urinating well. He is found to be in satisfactory condition for discharge home. He is currently on aspirin and Xarelto at home and will continue this going forward Plan - Discharge Summary Discharge Rx Participant: No New Discharge Prescriptions: No Action Simvastatin [Zocor] 40 mg PO DAILY amLODIPine [Norvasc] 10 mg PO HS levETIRAcetam [Keppra] 500 mg PO BID Metoprolol Tartrate 25 mg PO BID #60 tab Omeprazole 20 mg PO DAILY Levothyroxine Sodium [Synthroid] 25 mcg PO DAILY@0630 30 Days #30 tab HYDROcodone/APAP 5-325MG [[place] 5-325] 1 tab PO BID PRN PRN Reason: Pain Rivaroxaban [Xarelto] 15 mg PO DAILY Ipratropium-Albuterol Nebulize [Duoneb 0.5 mg-3 mg/3 ml Soln] 3 ml INHALATION RT-QID PRN PRN Reason: Shortness Of Breath Solifenacin Succinate [Vesicare] 10 mg PO DAILY lisinopriL [Zestril] 20 mg PO DAILY Magnesium Oxide [Mag-Ox] 400 mg PO BID #60 tab Aspirin [Adult Low Dose Aspirin EC] 81 mg PO DAILY #30 tablet. Insulin Detemir (Levemir) [Levemir] 50 unit SQ HS Furosemide [Lasix] 40 mg PO DAILY PRN PRN Reason: Bloating Discharge Medication List Simvastatin [Zocor] 40 mg PO DAILY 07/30/19 [History] amLODIPine [Norvasc] 10 mg PO HS 07/30/19 [History] levETIRAcetam [Keppra] 500 mg PO BID 07/30/19 [History] Metoprolol Tartrate 25 mg PO BID #60 tab 09/10/19 [Rx] Omeprazole 20 mg PO DAILY 07/06/20 [History] Levothyroxine Sodium [Synthroid] 25 mcg PO DAILY@0630 30 Days #30 tab 07/08/20 [Rx] HYDROcodone/APAP 5-325MG [[place] 5-325] 1 tab PO BID PRN 01/12/21 [History] Ipratropium-Albuterol Nebulize [Duoneb 0.5 mg-3 mg/3 ml Soln] 3 ml INHALATION RT-QID PRN 01/12/21 [History] Rivaroxaban [Xarelto] 15 mg PO DAILY 01/12/21 [History] Solifenacin Succinate [Vesicare] 10 mg PO DAILY 01/12/21 [History] lisinopriL [Zestril] 20 mg PO DAILY 05/18/21 [History] Aspirin [Adult Low Dose Aspirin EC] 81 mg PO DAILY #30 tablet. 05/20/21 [Rx] Magnesium Oxide [Mag-Ox] 400 mg PO BID #60 tab 05/20/21 [Rx] Insulin Detemir (Levemir) [Levemir] 50 unit SQ HS 06/02/21 [History] Furosemide [Lasix] 40 mg PO DAILY PRN 06/03/21 [History] Follow up Appointment(s)/Referral(s): Lyubov Castro DO [STAFF PHYSICIAN] - 2 Weeks Activity/Diet/Wound Care/Special Instructions: Resume regular activity. May shower tomorrow. Resume regular medications. May take [id number] medications for pain control Discharge Disposition: HOME SELF-CARE
[2021-06-04 13:09] VITALS: BP 110/55; PULSE 68; RESP 16
[2021-06-05] MEDS ORDERED: NON FORMULARY DRUG (Aspirin [Adult Low Dose Aspirin Ec] 81 MG Tablet.Dr) PO SCH (09:00)
== END 2021-06-04 14:42 | disposition home or self-care (01) | DRG 35 ==
LOC: 2ORMAIN 09:37 → EDSTATUS 12:00 → 2SICU 16:00
PROVIDERS: ADMIT Surgery; ATTEND Surgery
PROC: B3161ZZ Fluoroscopy of Right Internal Carotid Artery using Low Osmolar Contrast (ICD-10-PCS; 2021-06-03)
PROC: 06HY33Z Insertion of Infusion Device into Lower Vein, Percutaneous Approach (ICD-10-PCS; 2021-06-03)
PROC: 037K3DZ Dilation of Right Internal Carotid Artery with Intraluminal Device, Percutaneous Approach (ICD-10-PCS; principal; 2021-06-03 12:30)
DX: I65.21 Occlusion and stenosis of right carotid artery (principal); C34.90 Malignant neoplasm of unspecified part of unspecified bronchus or lung; E11.22 Type 2 diabetes mellitus with diabetic chronic kidney disease; E78.5 Hyperlipidemia, unspecified; G40.909 Epilepsy, unspecified, not intractable, without status epilepticus; I12.9 Hypertensive chronic kidney disease with stage 1 through stage 4 chronic kidney disease, or unspecified chronic kidney disease; I25.10 Atherosclerotic heart disease of native coronary artery without angina pectoris; I25.2 Old myocardial infarction; J44.9 Chronic obstructive pulmonary disease, unspecified; M19.90 Unspecified osteoarthritis, unspecified site; N18.30 Chronic kidney disease, stage 3 unspecified; N40.0 Benign prostatic hyperplasia without lower urinary tract symptoms; Z79.01 Long term (current) use of anticoagulants; Z79.4 Long term (current) use of insulin; Z79.82 Long term (current) use of aspirin; Z79.890 Hormone replacement therapy; Z79.899 Other long term (current) drug therapy; Z83.3 Family history of diabetes mellitus; Z85.118 Personal history of other malignant neoplasm of bronchus and lung; Z86.718 Personal history of other venous thrombosis and embolism; Z86.73 Personal history of transient ischemic attack (TIA), and cerebral infarction without residual deficits; Z87.891 Personal history of nicotine dependence; Z90.2 Acquired absence of lung [part of]; M54.9 Dorsalgia, unspecified; R91.1 Solitary pulmonary nodule; R56.9 Unspecified convulsions; N42.9 Disorder of prostate, unspecified
CPT/HCPCS: 37215; 80048; 80053; 81001; 82570; 84156; 84439; 84443; 84479; 85025; 94640

== ENCOUNTER → 2021-08-12 | Outpatient (CLI) | payer MEDICARE, OTHER ==
--- NOTE | 2021-08-16 08:30 | PE ---
Nuclear medicine PET/CT HISTORY: Lung cancer, C 34.12, subsequent Patient received 11.7 mCi F-18 FDG intravenously in delayed scanning was performed from the skull bas e to the mid thighs. Localization and attenuation correction CT scan was performed. Correlation to CT 04/11/2021 Chest and neck: There is no cervical or supraclavicular adenopathy. No mediastinal, axillary, or jacob r adenopathy. There is no pleural pericardial effusion. No suspicious uptake. There is a nonenlarged prevascular node somewhat more conspicuous than on prior exam, no associated uptake. Coronary artery calcifications are present. ABDOMEN: There is no evident liver mass. Patient is post cholecystectomy. No adrenal mass or retroper itoneal adenopathy. There is no ascites or suspicious uptake. Urinary bladder shows distention, thick ened wall could be due to chronic outlet obstruction. Prostate is enlarged. Osseous structures show sclerosis involving the left sacrum at the sacroiliac joint as on prior, righ t ilium shows a sclerotic focus as on prior. There is a lytic focus present within the L3 vertebral b maritza with associated hypermetabolic uptake, SUV 6.1. Degenerative disc changes and facet arthropathy a re noted in the lumbar spine. Postop changes are noted with laminectomies at the lower levels. IMPRESSION: Abnormal uptake involving the L3 vertebral body is suspicious for metastatic disease, con rough rice grader lumbar MRI.
== END | disposition home or self-care (01) ==
LOC: RADPETMAIN 09:54
PROVIDERS: ATTEND Internal Medicine Hematology & Oncology
DX: C34.12 Malignant neoplasm of upper lobe, left bronchus or lung (principal)
CPT/HCPCS: 78815; A9552

== ENCOUNTER → 2021-09-13 | Outpatient (CLI) | payer MEDICARE, OTHER | END | disposition home or self-care (01) | LOC: LABWHC1 08:00 | PROVIDERS: ATTEND Psychiatry & Neurology Neurology | DX: E11.42 Type 2 diabetes mellitus with diabetic polyneuropathy (principal); Z86.73 Personal history of transient ischemic attack (TIA), and cerebral infarction without residual deficits | CPT/HCPCS: 36415; 80177; 83036 ==

== ENCOUNTER 2021-09-25 18:57 | Emergency (ER) | payer MEDICARE, OTHER ==
[2021-09-25 20:14] VITALS: BP 137/68; RESP 16; TEMP 98.2
[2021-09-25] MEDS ORDERED: MORPHINE SULFATE 4 MG/ML SYRINGE IM STA (20:45)
[2021-09-25] MEDS ORDERED: IPRATROPIUM-ALBUTEROL 3 ML NEB INHALATION STA (20:45)
--- NOTE | 2021-09-25 21:18 | XR ---
EXAMINATION TYPE: XR Hip LT and AP Pelvis DATE OF EXAM: 09/25/2021 COMPARISON: 12/06/2013 HISTORY: Left hip pain. Fall. TECHNIQUE: 3 views FINDINGS: Pelvic ring is intact. Proximal left femur and hip joint appear intact. There is no evidenc e of hip fracture. Sacroiliac joints are intact. Hip joint spaces are fairly normal. IMPRESSION: No acute abnormality of the pelvis and left hip.
--- NOTE | 2021-09-25 21:23 | XR ---
EXAMINATION TYPE: XR lumbar spine 2 or 3V DATE OF EXAM: 09/25/2021 COMPARISON: NONE HISTORY: Back pain TECHNIQUE: 3 views FINDINGS: Lumbar vertebra have normal alignment. There is some degenerative disc space narrowing at L 4-5 and L5-S1 with spur formation. Posterior elements are intact. Abdominal aorta is atheromatous. Th e sacroiliac joints are intact. IMPRESSION: Spondylosis in the lower lumbar spine. No fracture seen.
[2021-09-25 21:35] VITALS: PULSE 80
--- NOTE | 2021-09-25 22:11 | ED ---
Fall HPI - General Chief Complaint: Fall Stated Complaint: Fall/Lt Hip pain Time Seen by Provider: 09/25/21 20:20 Source: patient, family, RN notes reviewed Mode of arrival: wheelchair - History of Present Illness Initial Comments: Patient is a 75-year-old male that presents to the emergency room complaining of left lower back pain. He notes that he fell approximately a month ago and no acute findings were found. Patient notes that he's been having increasing pain. Patient denied any bladder or bowel incontinence/retention. He denied any saddle anesthesia or weakness numbness tingling down any of his lower extremity is. He was otherwise well-appearing. He denied any other issues or complaints. He denied chest pain shortness of breath headache nausea vomiting diarrhea constipation fever fatigue chills. - Related Data Home Medications Medication Instructions Recorded Confirmed Simvastatin [Zocor] 40 mg PO DAILY 07/30/19 06/03/21 amLODIPine [Norvasc] 10 mg PO HS 07/30/19 06/03/21 levETIRAcetam [Keppra] 500 mg PO BID 07/30/19 06/03/21 Omeprazole 20 mg PO DAILY 07/06/20 06/03/21 HYDROcodone/APAP 5-325MG [[place] 1 tab PO BID PRN 01/12/21 06/03/21 5-325] Ipratropium-Albuterol Nebulize 3 ml INHALATION RT-QID PRN 01/12/21 06/03/21 [Duoneb 0.5 mg-3 mg/3 ml Soln] Rivaroxaban [Xarelto] 15 mg PO DAILY 01/12/21 06/03/21 Solifenacin Succinate [Vesicare] 10 mg PO DAILY 01/12/21 06/03/21 lisinopriL [Zestril] 20 mg PO DAILY 05/18/21 06/03/21 Insulin Detemir (Levemir) [Levemir] 50 unit SQ HS 06/02/21 06/03/21 Furosemide [Lasix] 40 mg PO DAILY PRN 06/03/21 06/03/21 Previous Rx's Medication Instructions Recorded Metoprolol Tartrate 25 mg PO BID #60 tab 09/10/19 Levothyroxine Sodium [Synthroid] 25 mcg PO DAILY@0630 30 Days #30 07/08/20 tab Aspirin [Adult Low Dose Aspirin EC] 81 mg PO DAILY #30 tablet. 05/20/21 Magnesium Oxide [Mag-Ox] 400 mg PO BID #60 tab 05/20/21 Allergies Allergy/AdvReac Type Severity Reaction Status Date / Time No Known Allergies Allergy Verified 09/25/21 20:10 Review of Systems ROS Statement: Those systems with pertinent positive or pertinent negative responses have been documented in the HPI. ROS Other: All systems not noted in ROS Statement are negative. Past Medical History Past Medical History: Cancer, Diabetes Mellitus, Hyperlipidemia, Hypertension, Renal Disease Additional Past Medical History / Comment(s): 07/2018 L lung cancer with left upper lobectomy/IV chemo but pt states he quit taking chemo early then diagnosed with R lower lobe cancer in August 2019 and had wedge resection and immunotherapy every 3 weeks, bronchitis, TIA and seizure after bronchoscopy in 2017, DVT L leg, IDDM type II, chronic cervical/back pain, diabetes mellitus, occasional bilateral ankle edema, BPH, chronic stage III kidney disease Last Myocardial Infarction Date:: 05/24/12 History of Any Multi-Drug Resistant Organisms: None Reported Past Surgical History: Back Surgery, Cholecystectomy, Heart Catheterization, Heart Catheterization With Stent, Hernia Repair, Tonsillectomy Additional Past Surgical History / Comment(s): 2018 Bronchoscopy with bx, 2017 L upper lobectomy at [facility], August 2019 R lower lung wedge resection, low back surgery, umbilical hernia repair, bilateral cataract removals Past Anesthesia/Blood Transfusion Reactions: Previous Problems w/ Anesthesia Additional Past Anesthesia/Blood Transfusion Reaction / Comment(s): Seizure and mini stroke following lung biopsy Past Psychological History: Anxiety, Depression Smoking Status: Never smoker Past Alcohol Use History: None Reported Past Drug Use History: None Reported - Past Family History Mother Family Medical History: No Reported History Additional Family Medical History / Comment(s): Mother was healthy Father Family Medical History: Diabetes Mellitus Additional Family Medical History / Comment(s): Father of diabetes at the age of 83 yrs. General Exam Limitations: no limitations Head exam: Present: atraumatic, normocephalic, normal inspection Eye exam: Present: normal appearance, PERRL, EOMI. Absent: scleral icterus, conjunctival injection, periorbital swelling ENT exam: Present: normal exam, mucous membranes moist Neck exam: Present: normal inspection. Absent: tenderness, meningismus, lymphadenopathy Respiratory exam: Present: normal lung sounds bilaterally. Absent: respiratory distress, wheezes, rales, rhonchi, stridor Cardiovascular Exam: Present: regular rate, normal rhythm, normal heart sounds. Absent: systolic murmur, diastolic murmur, rubs, gallop, clicks GI/Abdominal exam: Present: soft, normal bowel sounds. Absent: distended, tenderness, guarding, rebound, rigid Extremities exam: Present: normal inspection, full ROM, normal capillary refill. Absent: tenderness, pedal edema, joint swelling, calf tenderness Back exam: Present: normal inspection, tenderness (Over the left SI) Neurological exam: Present: alert, oriented X3 Psychiatric exam: Present: normal affect, normal mood Course Vital Signs 09/25/21 09/25/21 09/25/21 20:10 21:31 21:41 Temperature 98.2 F Pulse Rate 81 80 80 Respiratory 16 Rate Blood Pressure 137/68 O2 Sat by Pulse 98 Oximetry Medical Decision Making - Medical Decision Making 75-year-old male with follow-up month ago hurting his back presenting with worsening pain. X-ray lumbar spine, x-ray of the left hip and AP pelvis ordered. 4 mg of morphine ordered for pain. X-ray imaging negative for any acute process fractures or dislocations. Patient most likely has sciatica back pain. Patient is agreeable with discharge home with follow-up to primary care for possible physical therapy. Case discussed with Dr. Rodas, patient can discharge home. - Radiology Data Radiology results: report reviewed, image reviewed X-ray of the lumbar spine: Spondylosis in the lower lumbar spine. No fracture seen. X-ray left hip: No acute abnormality of the pelvis and left hip. Disposition Clinical Impression: Fall, Back pain with sciatica Disposition: HOME SELF-CARE Condition: Stable Instructions (If sedation given, give patient instructions): Fall Prevention for Older Adults (ED) Additional Instructions: Please return to the Emergency Department if symptoms worsen or any other concerns. Follow-up primary care 1-2 days. Take Tylenol as needed for pain. Avoid any shortness activity or exercise. Is patient prescribed a controlled substance at d/c from ED?: No Referrals: Renzo Boyer MD [Primary Care Provider] - 1-2 days Time of Disposition: 22:31
== END 2021-09-25 22:56 | disposition home or self-care (01) ==
LOC: EC 18:57
DX: M54.42 Lumbago with sciatica, left side (principal); I12.9 Hypertensive chronic kidney disease with stage 1 through stage 4 chronic kidney disease, or unspecified chronic kidney disease; E11.22 Type 2 diabetes mellitus with diabetic chronic kidney disease; N18.30 Chronic kidney disease, stage 3 unspecified; E78.5 Hyperlipidemia, unspecified; Z79.899 Other long term (current) drug therapy; Z86.73 Personal history of transient ischemic attack (TIA), and cerebral infarction without residual deficits; Z79.4 Long term (current) use of insulin; Z86.718 Personal history of other venous thrombosis and embolism; Z79.84 Long term (current) use of oral hypoglycemic drugs; W19.XXXA Unspecified fall, initial encounter
CPT/HCPCS: 96372; 99283; 94640; 72100; 73502; J2270

== ENCOUNTER → 2021-10-03 | Outpatient (CLI) | payer MEDICARE, OTHER ==
--- NOTE | 2021-10-04 03:38 | MR ---
EXAMINATION TYPE: MR lumbar spine wo/w con DATE OF EXAM: 10/03/2021 COMPARISON: None HISTORY: Lung cancer, pain, fell in bath tub 4 weeks ago CONTRAST: Standard multiplanar, multisequence MRI departmental protocol images were obtained without contrast a nd with 8 mL intravenous Gadavist gadolinium contrast. The lumbar vertebra have normal alignment. There is decreased signal throughout the L3 vertebral body on the T1 images. There is some minimal compression deformity of 15% of L3. There is disc space narr owing from L2 to S1. The sacroiliac joints are intact. There is no paraspinal mass. There is spinal s tenosis and lateral recess stenosis at L4-3-4 due to facet arthropathy. Contrast images show some pat hologic enhancement of the L3 vertebral body. There is a 12 mm low signal focus on the T1 images in t he L4 vertebral body. IMPRESSION: Mild enhancing compression fracture of L3 vertebra is probably a pathologic fracture and suspicious f or metastatic disease. There is also low signal focus on T1 images in the L4 vertebral body with enha ncement also suspicious for metastatic disease. There is some L3-4 spinal stenosis and lateral recess stenosis.
== END | disposition home or self-care (01) ==
LOC: RADMRIMAIN 09:25
PROVIDERS: ATTEND Internal Medicine Hematology & Oncology
DX: M48.56XA Collapsed vertebra, not elsewhere classified, lumbar region, initial encounter for fracture (principal); X58.XXXA Exposure to other specified factors, initial encounter
CPT/HCPCS: 72158; A9585

== ENCOUNTER → 2021-10-13 | Outpatient (CLI) | payer MEDICARE, OTHER ==
--- NOTE | 2021-10-13 08:39 | CT ---
EXAMINATION TYPE: CT chest wo con DATE OF EXAM: 10/13/2021 COMPARISON: Chest x-ray 09/26/2021, PET/CT 08/12/2021, chest CT 04/11/2021 HISTORY: Lung cancer, dysphagia, weight loss CT DLP: 466 mGycm. Automated Exposure Control for Dose Reduction was Utilized. TECHNIQUE: CT scan of the thorax is performed without IV contrast. FINDINGS: LUNGS: The lungs show essentially stable appearance, nodularity is present along the right hemidiaphr agm which thought to be slightly improved although there are differences in technique. There is a no dule in the lingula that now measures approximately 8 mm increased from 6 mm on prior exam 04/15/2021. There is some bronchiectasis at the left lung base, areas of scarring show similar appearance. Nodul e in the left upper lobe on axial image 24 measures proximally 6 mm and is similar to prior, nodule a djacent to the heart on axial image 38 shows a similar appearance at approximately 9 mm. Right upper lobe tree-in-bud type appearance is similar to prior on axial image #20. There is no pleural effusion or pneumothorax seen. The tracheobronchial tree is patent. Emphysematous changes show similar appea quinn. Left-sided volume loss again noted. MEDIASTINUM: Lack of IV contrast is noted to limit evaluation for mediastinal and especially hilar ad enopathy. There are no definitive greater than 1 cm hilar or mediastinal lymph nodes. No cardiomega ly or pericardial effusion is seen. Extensive coronary artery calcification is again noted. There is some prominence of pulmonary artery. OTHER: Proximal descending aorta is ectatic at 3.6 cm. Patient is post cholecystectomy. No evident ad renal mass. Pancreas is fatty replaced. IMPRESSION: Indeterminate lung nodules as described. Coronary artery disease, consider pulmonary manjinder ry hypertension, aortic ectasia
== END | disposition home or self-care (01) ==
LOC: RADCTMAIN 07:36
PROVIDERS: ATTEND Internal Medicine Hematology & Oncology
DX: C34.12 Malignant neoplasm of upper lobe, left bronchus or lung (principal); I25.10 Atherosclerotic heart disease of native coronary artery without angina pectoris; I27.21 Secondary pulmonary arterial hypertension
CPT/HCPCS: 71250

== ENCOUNTER 2021-10-18 06:31 | Day surgery (SDC) | payer MEDICARE, OTHER ==
[2021-10-14 12:17] VITALS: BMI 23.6
[~2021-10-18 06:31] MED LIST changes: -ALPRAZolam 0.25 MG TAB PO PRN; -ALPRAZolam 0.5 MG TAB PO PRN; -ASPIRIN 81 MG PO PRN; -CLOPIDOGREL 75 MG TAB PO PRN; -HYDROcodone/APAP 5-325MG 1 EACH TAB ONE; +LACTATED RINGERS 1,000 ML IV SCH; -NITROGLYCERIN SL TABS 0.4 MG TAB SUBLINGUAL PRN; -RX INFO: IV CONTRAST WAS GIVEN 1 EACH MISC MISCELLANE PRN; -SODIUM CHLORIDE 0.9% 1,000 ML in EMPTY BAG 1 BAG IV ONE; -ceFAZolin 2 GM in SODIUM CHLORIDE 0.9% 500 ML 500 ML IRRIGATION PRN
[2021-10-18 07:19] LABS: Glucose,Whole Blood 311 mg/dL (75-99)
[2021-10-18 07:24] VITALS: TEMP 97.6
[2021-10-18] MEDS ORDERED: INSULIN ASPART (NovoLOG) 100 UNIT/ML VIAL SQ ONE (07:24)
[2021-10-18] MEDS ORDERED: PROPOFOL 10 MG/ML 20 ML VIAL IV ONE (07:26)
--- NOTE | 2021-10-18 07:30 | P.GSHP ---
History of Present Illness H&P Date: 10/18/21 Chief Complaint: Dysphagia 75-year-old male here today for upper endoscopy. Patient with complaints of dysphagia. Trouble with liquids and solids. No significant pain. Past Medical History Past Medical History: Cancer, COPD, CVA/TIA, Diabetes Mellitus, Hyperlipidemia, Hypertension, Renal Disease, Seizure Disorder Additional Past Medical History / Comment(s): 07/2018 L lung cancer with left upper lobectomy., R lower lobe cancer in August 2019 and had wedge resection and immunotherapy., bronchitis, TIA and seizure after bronchoscopy in 2017, DVT L leg, IDDM type II, chronic cervical/back pain, BPH, stage III kidney disease, chronic constipation ., dysphagia with 11 # wt loss., states spot on spine L-3., states he thinks he has a sore on his tailbone., hx of carotid stenosis with stent 06/03/2021. Last Myocardial Infarction Date:: 05/24/12 History of Any Multi-Drug Resistant Organisms: None Reported Past Surgical History: Back Surgery, Cholecystectomy, Heart Catheterization, Heart Catheterization With Stent, Hernia Repair, Tonsillectomy Additional Past Surgical History / Comment(s): 2018 Bronchoscopy with bx, 2017 L upper lobectomy at [facility], August 2019 R lower lung wedge resection, low back surgery, umbilical hernia repair, bilateral cataract removals ., right transcarotid artery revasculazation with stent May 2021 Past Anesthesia/Blood Transfusion Reactions: Previous Problems w/ Anesthesia Additional Past Anesthesia/Blood Transfusion Reaction / Comment(s): Seizure and mini stroke following lung biopsy Date of Last Stent Placement:: 06/03/2021-CAROTID STENT Past Psychological History: No Psychological Hx Reported Additional Psychological History / Comment(s): . Smoking Status: Never smoker Past Alcohol Use History: None Reported Additional Past Alcohol Use History / Comment(s): Pt started smoking in 1960 and quit in 1995. He was a 2ppd smoker. Past Drug Use History: None Reported Additional Drug Use History / Comment(s): . - Past Family History Mother Family Medical History: No Reported History Additional Family Medical History / Comment(s): Mother was healthy Father Family Medical History: Diabetes Mellitus Additional Family Medical History / Comment(s): Father of diabetes at the age of 83 yrs. Medications and Allergies Home Medications Medication Instructions Recorded Confirmed Type Simvastatin [Zocor] 40 mg PO HS 07/30/19 10/18/21 History amLODIPine [Norvasc] 10 mg PO HS 07/30/19 10/18/21 History levETIRAcetam [Keppra] 500 mg PO BID 07/30/19 10/18/21 History Metoprolol Tartrate 25 mg PO BID #60 tab 09/10/19 10/18/21 Rx Omeprazole 20 mg PO HS 07/06/20 10/18/21 History Levothyroxine Sodium [Synthroid] 25 mcg PO DAILY@0630 30 Days #30 07/08/20 10/18/21 Rx tab HYDROcodone/APAP 5-325MG [[place] 1 tab PO BID PRN 01/12/21 10/18/21 History 5-325] Rivaroxaban [Xarelto] 15 mg PO HS 01/12/21 10/18/21 History Solifenacin Succinate [Vesicare] 10 mg PO HS 01/12/21 10/18/21 History Aspirin [Adult Low Dose Aspirin EC] 81 mg PO DAILY #30 tablet. 05/20/21 10/18/21 Rx Magnesium Oxide [Mag-Ox] 400 mg PO BID #60 tab 05/20/21 10/18/21 Rx Insulin Detemir (Levemir) [Levemir] 60 unit SQ HS 06/02/21 10/18/21 History Furosemide [Lasix] 40 mg PO DAILY PRN 06/03/21 10/18/21 History Ipratropium-Albuterol Nebulize 3 ml INHALATION DIRECTED 10/14/21 10/18/21 History [Duoneb 0.5 mg-3 mg/3 ml Soln] Allergies Allergy/AdvReac Type Severity Reaction Status Date / Time No Known Allergies Allergy Verified 10/14/21 11:15 Surgical - Exam Vital Signs Temp Pulse Resp BP Pulse Ox 97.6 F 65 17 167/72 98 10/18/21 07:20 10/18/21 07:20 10/18/21 07:20 10/18/21 07:20 10/18/21 07:20 Physical exam: General: Well-developed, well-nourished HEENT: Normocephalic, sclerae nonicteric Abdomen: Nontender, nondistended Extremities: No edema Neuro: Alert and oriented Results - Labs Abnormal Lab Results - Last 24 Hours (Table) 10/18/21 Range/Units 07:15 POC Glucose (mg/dL) 311 H (75-99) mg/dL Assessment and Plan (1) Dysphagia Narrative/Plan: Will proceed with EGD and possible dilation time. Current Visit: Yes Status: Acute Code(s): R13.10 - DYSPHAGIA, UNSPECIFIED SNOMED Code(s): 56593580
--- NOTE | 2021-10-18 07:40 | P.PCN ---
Date of Procedure: 10/18/21 Procedure(s) Performed: Preoperative Dx: Dysphagia Postoperative Dx: Mild gastritis Procedure: EGD with Bx Anesthesia: Sedation Endoscopist: Dr. Forrest Specimens: Antrum Endoscopic Procedure: The patient was on the endoscopy table in the left decubitus position. The Olympus gastroscope was inserted into the oropharynx and passed under direct visualization to the region of the third portion of the duodenum. From that point the scope was slowly withdrawn inspecting all surfaces carefully. There were no neoplastic inflammatory or polypoid lesions throughout the duodenum. The pylorus was widely patent. The stomach was carefully inspected. There was a small amount of retained bilious fluid within the stomach. There was mild inflammatory changes noted consistent with mild gastritis. A biopsy of the antrum took place to rule out H. pylori. Retroflexion revealed a normal hiatus. The esophagus was then carefully examined. There were no neoplastic inflammatory or polypoid lesions throughout the visualized esophagus. The esophagus was slightly tortuous. Nothing identified to explain the patient's dysphagia symptoms. The patient was then taken to the recovery room in stable condition per anesthesia guidelines. Recommendations: Resume diet. Symptoms may be on the basis of presbyesophagus. If symptoms persist for progress recommend modified barium swallow.
[2021-10-18 07:46] LABS: Glucose,Whole Blood 321 mg/dL (75-99)
[2021-10-18 08:01] VITALS: BP 163/69; PULSE 56; RESP 18
== END 2021-10-18 08:29 | disposition home or self-care (01) ==
LOC: ORWHC2ENDO 06:31
PROVIDERS: ATTEND Surgery
DX: K29.50 Unspecified chronic gastritis without bleeding (principal); K22.2 Esophageal obstruction; J44.9 Chronic obstructive pulmonary disease, unspecified; I12.9 Hypertensive chronic kidney disease with stage 1 through stage 4 chronic kidney disease, or unspecified chronic kidney disease; E11.22 Type 2 diabetes mellitus with diabetic chronic kidney disease; N18.9 Chronic kidney disease, unspecified; E78.5 Hyperlipidemia, unspecified; I10 Essential (primary) hypertension; Z86.73 Personal history of transient ischemic attack (TIA), and cerebral infarction without residual deficits; N28.9 Disorder of kidney and ureter, unspecified; G40.909 Epilepsy, unspecified, not intractable, without status epilepticus; Z90.2 Acquired absence of lung [part of]; G89.29 Other chronic pain; M54.2 Cervicalgia; M54.9 Dorsalgia, unspecified; N40.0 Benign prostatic hyperplasia without lower urinary tract symptoms; Z86.718 Personal history of other venous thrombosis and embolism; Z95.5 Presence of coronary angioplasty implant and graft; K59.09 Other constipation; Z98.42 Cataract extraction status, left eye; Z98.41 Cataract extraction status, right eye; Z95.820 Peripheral vascular angioplasty status with implants and grafts; Z98.890 Other specified postprocedural states; Z87.891 Personal history of nicotine dependence; Z83.3 Family history of diabetes mellitus; Z79.82 Long term (current) use of aspirin; Z79.3 Long term (current) use of hormonal contraceptives; Z79.890 Hormone replacement therapy; Z79.4 Long term (current) use of insulin; Z79.899 Other long term (current) drug therapy
CPT/HCPCS: 88305; 43239; J2704

== ENCOUNTER 2021-11-13 18:48 | Emergency (ER) | payer MEDICARE, OTHER ==
[2021-11-13 19:02] LABS: Glucose,Whole Blood 213 mg/dL (75-99)
[2021-11-13 19:37] VITALS: RESP 18; TEMP 97.1
[2021-11-13 20:26] LABS: Basophils % (A) 0 %; Eosinophils # (A) 0.2 k/uL (0-0.7); Eosinophils % (A) 2 %; HCT 36.2 % (39.0-53.0); HGB 11.3 gm/dL (13.0-17.5); Hypochromasia Moderate; Lymphocytes # (A) 0.5 k/uL (1.0-4.8); Lymphocytes % (A) 6 %; MCH 29.7 pg (25.0-35.0); MCHC 31.1 g/dL (31.0-37.0); MCV 95.6 fL (80.0-100.0); Mean Platelet Volume 6.9; Monocytes # (A) 0.3 k/uL (0-1.0); Monocytes % (A) 4 %; Neutrophils # (A) 6.6 k/uL (1.3-7.7); Neutrophils % (A) 85 %; Platelet Count 218 k/uL (150-450); RBC 3.79 m/uL (4.30-5.90); RDW 14.4 % (11.5-15.5); WBC 7.7 k/uL (3.8-10.6)
[2021-11-13 20:55] LABS: Albumin 2.8 g/dL (3.5-5.0); Calcium 8.7 mg/dL (8.4-10.2); Potassium 5.6 mmol/L (3.5-5.1); Total Bilirubin 0.4 mg/dL (0.2-1.3); Total Protein 5.2 g/dL (6.3-8.2)
[2021-11-13] MEDS ORDERED: MECLIZINE 12.5 MG TAB PO STA (20:56)
[2021-11-13 21:20] LABS: Glucose,Whole Blood 197 mg/dL (75-99)
--- NOTE | 2021-11-13 21:20 | CT ---
EXAMINATION TYPE: CT brain wo con DATE OF EXAM: 11/13/2021 COMPARISON: 05/18/2021 HISTORY: Dizziness. CT DLP: 1143.4 mGycm Automated exposure control for dose reduction was used. Images of the brain obtained without contrast. There is cerebral atrophy. There is no mass effect or midline shift. There is no sign of intracranial hemorrhage. Calvarium is intact. IMPRESSION: Cerebral atrophy. No acute intracranial abnormality. No change.
[2021-11-13] MEDS ORDERED: ALBUTEROL HFA INHALER INHALATION STA (21:26)
--- NOTE | 2021-11-13 21:33 | ED ---
General Adult HPI - General Chief complaint: Dizziness Stated complaint: vertigo, weakness Time Seen by Provider: 11/13/21 21:20 Source: patient, family, RN notes reviewed, old records reviewed Mode of arrival: ambulatory Limitations: no limitations - History of Present Illness Initial comments: 75-year-old male, alert and oriented 4, presents to the emergency room with complaints of dizziness that started this morning. Patient states that he awoke and took his blood sugar and it was 32. He states he had a couple of orange juices and some cereal and sugar went up to 235. Patient states that he has had a decreased appetite has not been eating well. He is taking insulin for his diabetes. He does live with family members and they are positive for coronavirus. He has not been vaccinated and chooses not to be. He does have a history of COPD, stroke, diabetes, hypertension, renal disease, seizures, lobectomy for lung cancer 2 years ago. Patient had dizziness that has resolved at this time. He denies any chest pain or difficulty in breathing. He states he did use a breathing treatment prior to coming to the hospital today for his COPD. He denies any fevers, nausea vomiting or diarrhea. -: days(s) (1) Severity scale (1-10): 0 Consistency: intermittent, now resolved Associated Symptoms: loss of appetite, other (dizziness) - Related Data Home Medications Medication Instructions Recorded Confirmed Simvastatin [Zocor] 40 mg PO HS 07/30/19 10/18/21 amLODIPine [Norvasc] 10 mg PO HS 07/30/19 10/18/21 levETIRAcetam [Keppra] 500 mg PO BID 07/30/19 10/18/21 Omeprazole 20 mg PO HS 07/06/20 10/18/21 HYDROcodone/APAP 5-325MG [[place] 1 tab PO BID PRN 01/12/21 10/18/21 5-325] Rivaroxaban [Xarelto] 15 mg PO HS 01/12/21 10/18/21 Solifenacin Succinate [Vesicare] 10 mg PO HS 01/12/21 10/18/21 Insulin Detemir (Levemir) [Levemir] 60 unit SQ HS 06/02/21 10/18/21 Furosemide [Lasix] 40 mg PO DAILY PRN 06/03/21 10/18/21 Ipratropium-Albuterol Nebulize 3 ml INHALATION DIRECTED 10/14/21 10/18/21 [Duoneb 0.5 mg-3 mg/3 ml Soln] Previous Rx's Medication Instructions Recorded Metoprolol Tartrate 25 mg PO BID #60 tab 09/10/19 Levothyroxine Sodium [Synthroid] 25 mcg PO DAILY@0630 30 Days #30 07/08/20 tab Aspirin [Adult Low Dose Aspirin EC] 81 mg PO DAILY #30 tablet. 05/20/21 Magnesium Oxide [Mag-Ox] 400 mg PO BID #60 tab 05/20/21 Allergies Allergy/AdvReac Type Severity Reaction Status Date / Time No Known Allergies Allergy Verified 11/14/21 00:02 Review of Systems ROS Statement: Those systems with pertinent positive or pertinent negative responses have been documented in the HPI. ROS Other: All systems not noted in ROS Statement are negative. Past Medical History Past Medical History: Cancer, COPD, CVA/TIA, Diabetes Mellitus, Hyperlipidemia, Hypertension, Renal Disease, Seizure Disorder Additional Past Medical History / Comment(s): 07/2018 L lung cancer with left upper lobectomy., R lower lobe cancer in August 2019 and had wedge resection and immunotherapy., bronchitis, TIA and seizure after bronchoscopy in 2017, DVT L leg, IDDM type II, chronic cervical/back pain, BPH, stage III kidney disease, chronic constipation ., dysphagia with 11 # wt loss., states spot on spine L-3., states he thinks he has a sore on his tailbone., hx of carotid sten osis with stent 06/03/2021. Last Myocardial Infarction Date:: 05/24/12 History of Any Multi-Drug Resistant Organisms: None Reported Past Surgical History: Back Surgery, Cholecystectomy, Heart Catheterization, Heart Catheterization With Stent, Hernia Repair, Tonsillectomy Additional Past Surgical History / Comment(s): 2018 Bronchoscopy with bx, 2017 L upper lobectomy at [facility], August 2019 R lower lung wedge resection, low back surgery, umbilical hernia repair, bilateral cataract removals ., right t ranscarotid artery revasculazation with stent May 2021 Past Anesthesia/Blood Transfusion Reactions: Previous Problems w/ Anesthesia Additional Past Anesthesia/Blood Transfusion Reaction / Comment(s): Seizure and mini stroke following lung biopsy Date of Last Stent Placement:: 06/03/2021-CAROTID STENT Past Psychological History: No Psychological Hx Reported Smoking Status: Never smoker Past Alcohol Use History: None Reported Past Drug Use History: None Reported - Past Family History Mother Family Medical History: No Reported History Additional Family Medical History / Comment(s): Mother was healthy Father Family Medical History: Diabetes Mellitus Additional Family Medical History / Comment(s): Father of diabetes at the age of 83 yrs. General Exam Limitations: no limitations General appearance: alert, in no apparent distress Head exam: Present: atraumatic, normocephalic, normal inspection Eye exam: Present: normal appearance, EOMI. Absent: scleral icterus, conjunctival injection, periorbital swelling ENT exam: Present: normal exam, normal oropharynx, mucous membranes moist Neck exam: Present: normal inspection, full ROM. Absent: tenderness, meningismus, lymphadenopathy, thyromegaly Respiratory exam: Present: wheezes. Absent: respiratory distress, rales, rhonchi, stridor, chest wall tenderness, accessory muscle use Cardiovascular Exam: Present: regular rate, normal rhythm, normal heart sounds. Absent: systolic murmur, diastolic murmur, rubs, gallop, clicks GI/Abdominal exam: Present: soft, normal bowel sounds. Absent: distended, tenderness, guarding, rebound, rigid Extremities exam: Present: normal capillary refill. Absent: pedal edema Neurological exam: Present: alert, oriented X3 Expanded Patient oriented to: Present: person, place, time Speech: Present: fluid speech Cranial nerves: EOM's Intact: Normal, Tongue Deviation: Normal Eye Response: (4) open spontaneously Motor Response: (6) obeys commands Verbal Response: (5) oriented [place] Total: 15 Psychiatric exam: Present: normal affect, normal mood Skin exam: Present: warm, dry, normal color. Absent: rash, cyanosis, diaphoretic, petechiae, pallor Course Vital Signs 11/13/21 19:34 Temperature 97.1 F L Pulse Rate 80 Respiratory 18 Rate Blood Pressure 130/71 O2 Sat by Pulse 99 Oximetry EKG Findings - EKG Results: EKG: sinus rhythm (Ventricular rate of 75, NV interval 0.178, QRS 0.86, QTC 0.439) Medical Decision Making - Medical Decision Making 75-year-old male presents with complaints of dizziness that started this morning. His blood glucose at that time was 32. He had a couple of orange juices and some cereal and sugar went up to 235. His family members have coronavirus and he has not been vaccinated. He states his dizziness has resolved at this time. He denies any chest pain or difficulty in breathing. Oxygen saturation is 99% on room air however the patient was wheezing and was given albuterol treatment. Hemoglobin and hematocrit are stable, there is no evidence of leukocytosis. Patient's BUN and creatinine are elevated however patient does have a history of renal disease. His lactic acid is 2.9 and he was given a liter of normal saline. Urinalysis is clear of any blood or infection. His coronavirus and influenza swabs are negative. CT brain shows cerebral atrophy and no acute intracranial abnormality or midline shift noted. X-ray shows no heart failure or pneumonic infiltrate. There is no active cardiopulmonary disease or adverse change. Vital signs are stable at discharge, patient is asymptomatic and states he has not had any dizziness while sitting in the emergency room. He tolerated something to eat and fluids. Patient and family member at bedside agreeable to being discharged and following up with her primary care doctor returning to the emergency room with a new or worsening symptoms. Additionally the patient that if his symptoms worsen to come back in for retesting impossible monoclonal antibodies infusion. I did discuss this case with Dr. Dewitt was agreeable to this plan of care. - Lab Data Result diagrams: 11/13/21 20:16 11/13/21 20:16 Lab Results 11/13/21 11/13/21 11/13/21 Range/Units 19:00 20:16 20:16 WBC 7.7 (3.8-10.6) k/uL RBC 3.79 L (4.30-5.90) m/uL Hgb 11.3 L (13.0-17.5) gm/dL Hct 36.2 L (39.0-53.0) % MCV 95.6 (80.0-100.0) fL MCH 29.7 (25.0-35.0) pg MCHC 31.1 (31.0-37.0) g/dL RDW 14.4 (11.5-15.5) % Plt Count 218 (150-450) k/uL MPV 6.9 Neutrophils % 85 % Lymphocytes % 6 % Monocytes % 4 % Eosinophils % 2 % Basophils % 0 % Neutrophils # 6.6 (1.3-7.7) k/uL Lymphocytes # 0.5 L (1.0-4.8) k/uL Monocytes # 0.3 (0-1.0) k/uL Eosinophils # 0.2 (0-0.7) k/uL Basophils # 0.0 (0-0.2) k/uL Hypochromasia Moderate Sodium 137 (137-145) mmol/L Potassium 5.6 H (3.5-5.1) mmol/L Chloride 108 H (98-107) mmol/L Carbon Dioxide 23 (22-30) mmol/L Anion Gap 6 mmol/L BUN 37 H (9-20) mg/dL Creatinine 1.68 H (0.66-1.25) mg/dL Est GFR (CKD-EPI)AfAm 46 (>60 ml/min/1.73 sqM) Est GFR (CKD-EPI)NonAf 40 (>60 ml/min/1.73 sqM) Glucose 194 H (74-99) mg/dL POC Glucose (mg/dL) 213 H (75-99) mg/dL POC Glu Crumb Packer ID Mike Snell Nicole Lactic Ac Sepsis Rflx Plasma Lactic Acid Nehemias (0.7-2.0) mmol/L Calcium 8.7 (8.4-10.2) mg/dL Total Bilirubin 0.4 (0.2-1.3) mg/dL AST 21 (17-59) U/L ALT 32 (4-49) U/L Alkaline Phosphatase 155 H (38-126) U/L Troponin I (0.000-0.034) ng/mL Total Protein 5.2 L (6.3-8.2) g/dL Albumin 2.8 L (3.5-5.0) g/dL Urine Color Urine Appearance (Clear) Urine pH (5.0-8.0) Ur Specific [place] (1.001-1.035) Urine Protein (Negative) Urine Glucose (UA) (Negative) Urine Ketones (Negative) Urine Blood (Negative) Urine Nitrite (Negative) Urine Bilirubin (Negative) Urine Urobilinogen (<2.0) mg/dL Ur Leukocyte Esterase (Negative) Influenza Type A (PCR) (Not Detectd) Influenza Type B (PCR) (Not Detectd) RSV (PCR) (Not Detectd) SARS-CoV-2 (PCR) (Not Detectd) 11/13/21 11/13/21 11/13/21 Range/Units 20:16 20:16 21:18 WBC (3.8-10.6) k/uL RBC (4.30-5.90) m/uL Hgb (13.0-17.5) gm/dL Hct (39.0-53.0) % MCV (80.0-100.0) fL MCH (25.0-35.0) pg MCHC (31.0-37.0) g/dL RDW (11.5-15.5) % Plt Count (150-450) k/uL MPV Neutrophils % % Lymphocytes % % Monocytes % % Eosinophils % % Basophils % % Neutrophils # (1.3-7.7) k/uL Lymphocytes # (1.0-4.8) k/uL Monocytes # (0-1.0) k/uL Eosinophils # (0-0.7) k/uL Basophils # (0-0.2) k/uL Hypochromasia Sodium (137-145) mmol/L Potassium (3.5-5.1) mmol/L Chloride (98-107) mmol/L Carbon Dioxide (22-30) mmol/L Anion Gap mmol/L BUN (9-20) mg/dL Creatinine (0.66-1.25) mg/dL Est GFR (CKD-EPI)AfAm (>60 ml/min/1.73 sqM) Est GFR (CKD-EPI)NonAf (>60 ml/min/1.73 sqM) Glucose (74-99) mg/dL POC Glucose (mg/dL) 197 H (75-99) mg/dL POC Glu Crumb Packer ID Tristian Rogers Lactic Ac Sepsis Rflx Plasma Lactic Acid Nehemias 2.9 H* (0.7-2.0) mmol/L Calcium (8.4-10.2) mg/dL Total Bilirubin (0.2-1.3) mg/dL AST (17-59) U/L ALT (4-49) U/L Alkaline Phosphatase (38-126) U/L Troponin I <0.012 (0.000-0.034) ng/mL Total Protein (6.3-8.2) g/dL Albumin (3.5-5.0) g/dL Urine Color Urine Appearance (Clear) Urine pH (5.0-8.0) Ur Specific [place] (1.001-1.035) Urine Protein (Negative) Urine Glucose (UA) (Negative) Urine Ketones (Negative) Urine Blood (Negative) Urine Nitrite (Negative) Urine Bilirubin (Negative) Urine Urobilinogen (<2.0) mg/dL Ur Leukocyte Esterase (Negative) Influenza Type A (PCR) (Not Detectd) Influenza Type B (PCR) (Not Detectd) RSV (PCR) (Not Detectd) SARS-CoV-2 (PCR) (Not Detectd) 11/13/21 11/13/21 11/13/21 Range/Units 21:45 22:01 22:47 WBC (3.8-10.6) k/uL RBC (4.30-5.90) m/uL Hgb (13.0-17.5) gm/dL Hct (39.0-53.0) % MCV (80.0-100.0) fL MCH (25.0-35.0) pg MCHC (31.0-37.0) g/dL RDW (11.5-15.5) % Plt Count (150-450) k/uL MPV Neutrophils % % Lymphocytes % % Monocytes % % Eosinophils % % Basophils % % Neutrophils # (1.3-7.7) k/uL Lymphocytes # (1.0-4.8) k/uL Monocytes # (0-1.0) k/uL Eosinophils # (0-0.7) k/uL Basophils # (0-0.2) k/uL Hypochromasia Sodium (137-145) mmol/L Potassium (3.5-5.1) mmol/L Chloride (98-107) mmol/L Carbon Dioxide (22-30) mmol/L Anion Gap mmol/L BUN (9-20) mg/dL Creatinine (0.66-1.25) mg/dL Est GFR (CKD-EPI)AfAm (>60 ml/min/1.73 sqM) Est GFR (CKD-EPI)NonAf (>60 ml/min/1.73 sqM) Glucose (74-99) mg/dL POC Glucose (mg/dL) (75-99) mg/dL POC Glu Crumb Packer ID Lactic Ac Sepsis Rflx Y Plasma Lactic Acid Nehemias (0.7-2.0) mmol/L Calcium (8.4-10.2) mg/dL Total Bilirubin (0.2-1.3) mg/dL AST (17-59) U/L ALT (4-49) U/L Alkaline Phosphatase (38-126) U/L Troponin I (0.000-0.034) ng/mL Total Protein (6.3-8.2) g/dL Albumin (3.5-5.0) g/dL Urine Color Light Yellow Urine Appearance Clear (Clear) Urine pH 6.0 (5.0-8.0) Ur Specific [place] 1.009 (1.001-1.035) Urine Protein Trace H (Negative) Urine Glucose (UA) Trace H (Negative) Urine Ketones Negative (Negative) Urine Blood Negative (Negative) Urine Nitrite Negative (Negative) Urine Bilirubin Negative (Negative) Urine Urobilinogen <2.0 (<2.0) mg/dL Ur Leukocyte Esterase Negative (Negative) Influenza Type A (PCR) Not Detected (Not Detectd) Influenza Type B (PCR) Not Detected (Not Detectd) RSV (PCR) Not Detected (Not Detectd) SARS-CoV-2 (PCR) Not Detected (Not Detectd) Disposition Clinical Impression: Dizziness Disposition: HOME SELF-CARE Condition: Good Additional Instructions: Plan to eat small meals throughout the day to prevent hypoglycemia. Return to the emergency room with any new or worsening symptoms. Follow-up with your primary care doctor tomorrow. Is patient prescribed a controlled substance at d/c from ED?: No Referrals: Renzo Boyer MD [Primary Care Provider] - 1-2 days Time of Disposition: 00:05
[2021-11-13] MEDS ORDERED: SODIUM CHLORIDE 0.9% 1,000 ML IV ONE (22:19)
[2021-11-13 23:27] LABS: Appearance,Urine Clear (Clear); Bilirubin,Urine Negative (Negative); Blood,Urine Negative (Negative); Color,Urine Light Yellow; Glucose,Urine (UA) Trace (Negative); Ketones,Urine Negative (Negative); Leukocyte Esterase,Urine Negative (Negative); Nitrite,Urine Negative (Negative); Protein,Urine Trace (Negative); Specific Gravity,Urine 1.009 (1.001-1.035); Urobilinogen,Urine <2.0 mg/dL (<2.0)
--- NOTE | 2021-11-14 00:03 | XR ---
EXAMINATION TYPE: XR chest 2V DATE OF EXAM: 11/13/2021 COMPARISON: 09/26/2021 HISTORY: Cough and short of breath TECHNIQUE: 2 views FINDINGS: There is no heart failure no confluent pneumonic infiltrate. Costophrenic angles are clear. There are no hilar masses. Heart size is normal. Bony thorax is intact. IMPRESSION: No active cardiopulmonary disease. No adverse change.
[2021-11-14 00:19] VITALS: BP 124/84; PULSE 84
== END 2021-11-14 00:19 | disposition home or self-care (01) ==
LOC: EC 18:48
DX: R42 Dizziness and giddiness (principal); R53.1 Weakness; J44.9 Chronic obstructive pulmonary disease, unspecified; E11.9 Type 2 diabetes mellitus without complications; E78.5 Hyperlipidemia, unspecified; I10 Essential (primary) hypertension; I25.2 Old myocardial infarction; Z79.899 Other long term (current) drug therapy; Z79.01 Long term (current) use of anticoagulants; Z79.4 Long term (current) use of insulin; Z86.73 Personal history of transient ischemic attack (TIA), and cerebral infarction without residual deficits; Z20.822 Contact with and (suspected) exposure to COVID-19
CPT/HCPCS: 36415; 70450; 71046; 80053; 81003; 83605; 84484; 85025; 87636; 93005; 94640; 96360; 99285

== ENCOUNTER 2021-11-16 11:57 | Emergency (ER) | payer MEDICARE, OTHER ==
[2021-11-16 12:03] VITALS: BP 151/73; PULSE 87; RESP 18; TEMP 97.5
--- NOTE | 2021-11-16 12:31 | ED ---
General Adult HPI - General Chief complaint: Dizziness Stated complaint: Fall/Dizziness Time Seen by Provider: 11/16/21 12:09 Source: patient Mode of arrival: wheelchair Limitations: no limitations - History of Present Illness Initial comments: This 75-year-old male with past medical history of lung cancer, COPD, diabetes presents to the emergency department with dizziness that began last week. Patient states he feels like the room is spinning around him. Patient states he was here 2 days ago for the same thing, where he received some medication, got a computed tomography scan of his head, an x-ray and fluids and felt better. Patient states he has noticed that he has been more dizzy when his blood sugar is low. Patient states he only takes his blood sugar in the morning and for the last few days it has been in the 50s. Patient states he does use insulin every night but does not take his sugar before using the insulin. Patient states he did fall last night due to standing up and being dizzy, however, he denies hitting his head or being on any blood thinners. Patient states he does not feel more weakness on one side than the other and has had no trouble speaking. Patient denies any chest pain, increased shortness of breath, abdominal pain, change of bowel or bladder, visual changes. - Related Data Home Medications Medication Instructions Recorded Confirmed Simvastatin [Zocor] 40 mg PO HS 07/30/19 11/14/21 amLODIPine [Norvasc] 10 mg PO HS 07/30/19 11/14/21 levETIRAcetam [Keppra] 500 mg PO BID 07/30/19 11/14/21 Omeprazole 20 mg PO HS 07/06/20 11/14/21 Rivaroxaban [Xarelto] 15 mg PO HS 01/12/21 11/14/21 Solifenacin Succinate [Vesicare] 10 mg PO HS 01/12/21 11/14/21 Furosemide [Lasix] 40 mg PO DAILY PRN 06/03/21 11/14/21 Ipratropium-Albuterol Nebulize 3 ml INHALATION RT-TID 10/14/21 11/14/21 [Duoneb 0.5 mg-3 mg/3 ml Soln] HYDROcodone/APAP 7.5-325MG [Shirland 1 tab PO BID PRN 11/14/21 11/14/21 7.5-325] Insulin Detemir [Levemir Flextouch 50 units SQ HS 11/14/21 11/14/21 Pen] Previous Rx's Medication Instructions Recorded Metoprolol Tartrate 25 mg PO BID #60 tab 09/10/19 Levothyroxine Sodium [Synthroid] 25 mcg PO DAILY@0630 30 Days #30 07/08/20 tab Aspirin [Adult Low Dose Aspirin EC] 81 mg PO DAILY #30 tablet. 05/20/21 Magnesium Oxide [Mag-Ox] 400 mg PO BID #60 tab 05/20/21 Meclizine [Antivert] 25 mg PO BID #10 tab 11/16/21 Allergies Allergy/AdvReac Type Severity Reaction Status Date / Time No Known Allergies Allergy Verified 11/16/21 11:58 Review of Systems ROS Statement: Those systems with pertinent positive or pertinent negative responses have been documented in the HPI. ROS Other: All systems not noted in ROS Statement are negative. Past Medical History Past Medical History: Cancer, COPD, CVA/TIA, Diabetes Mellitus, Hyperlipidemia, Hypertension, Renal Disease, Seizure Disorder Additional Past Medical History / Comment(s): 07/2018 L lung cancer with left upper lobectomy., R lower lobe cancer in August 2019 and had wedge resection and immunotherapy., bronchitis, TIA and seizure after bronchoscopy in 2017, DVT L leg, IDDM type II, chronic cervical/back pain, BPH, stage III kidney disease, chronic constipation ., dysphagia with 11 # wt loss., states spot on spine L-3., states he thinks he has a sore on his tailbone., hx of carotid stenosis with stent 06/03/2021. Last Myocardial Infarction Date:: 05/24/12 History of Any Multi-Drug Resistant Organisms: None Reported Past Surgical History: Back Surgery, Cholecystectomy, Heart Catheterization, Heart Catheterization With Stent, Hernia Repair, Tonsillectomy Additional Past Surgical History / Comment(s): 2018 Bronchoscopy with bx, 2017 L upper lobectomy at [facility], August 2019 R lower lung wedge resection, low back surgery, umbilical hernia repair, bilateral cataract removals ., right transcarotid artery revasculazation with stent May 2021 Past Anesthesia/Blood Transfusion Reactions: Previous Problems w/ Anesthesia Additional Past Anesthesia/Blood Transfusion Reaction / Comment(s): Seizure and mini stroke following lung biopsy Date of Last Stent Placement:: 06/03/2021-CAROTID STENT Past Psychological History: No Psychological Hx Reported Smoking Status: Never smoker Past Alcohol Use History: None Reported Past Drug Use History: None Reported - Past Family History Mother Family Medical History: No Reported History Additional Family Medical History / Comment(s): Mother was healthy Father Family Medical History: Diabetes Mellitus Additional Family Medical History / Comment(s): Father of diabetes at the age of 83 yrs. General Exam Limitations: no limitations General appearance: alert, in no apparent distress Head exam: Present: atraumatic, normocephalic, normal inspection Eye exam: Present: normal appearance, EOMI Neck exam: Present: normal inspection, full ROM Respiratory exam: Present: wheezes (Bilateral). Absent: respiratory distress, rales, rhonchi, stridor Cardiovascular Exam: Present: regular rate, normal rhythm, normal heart sounds. Absent: systolic murmur, diastolic murmur, rubs, gallop, clicks GI/Abdominal exam: Present: soft, normal bowel sounds. Absent: distended, tenderness, guarding, rebound, rigid Extremities exam: Present: normal inspection, full ROM. Absent: pedal edema, joint swelling, calf tenderness Back exam: Present: normal inspection, full ROM Neurological exam: Present: alert, oriented X3, CN II-XII intact, normal gait, other (NIH scale=0 points) Psychiatric exam: Present: normal affect, normal mood Skin exam: Present: warm, dry, intact, normal color. Absent: rash Course Vital Signs 11/16/21 11:59 Temperature 97.5 F L Pulse Rate 87 Respiratory 18 Rate Blood Pressure 151/73 O2 Sat by Pulse 96 Oximetry - Reevaluation(s) Reevaluation #1: 11/16/21 13:50 Patient states he currently has no dizziness and feels fine. EKG Findings - EKG Comments: EKG Findings:: EKG: Normal sinus rhythm. Ventricular rate 78 bpm. MO interval 178. QRS duration 80. QT/QTc 378/430. No ST depression or elevation noted Medical Decision Making - Medical Decision Making This 75-year-old male presents to the emergency department for intermittent dizziness that began last week. Patient states at this time he does not have any dizziness. Labs reveal a CBC 10.6, HCT 32.6, sodium 136, potassium 5.2, the line 40, creatinine 1.79 urine is unremarkable, coronavirus not detected. NIH score=0 Due to patient falling last night when dizzy and his age, CT was obtained. CT Impression: There is no acute fracture or dislocation evident in the cervical spine. No acute intracranial hemorrhage, mass effect, or midline shift seen. Patient sent home with meclizine and to follow up with primary care provider. Patient stays at home with his son and [id number] who agreed to plan and have arty schedule a follow-up appointment tomorrow with primary care. Patient instructed to take his blood sugar when he feels dizzy and to write down what his blood sugar is at that time. Patient sent home in stable condition and is agreeable to plan. Strict return precautions given. - Lab Data Result diagrams: 11/16/21 13:13 11/16/21 13:13 Lab Results 11/16/21 11/16/21 11/16/21 Range/Units 13:13 13:13 13:13 WBC 6.3 (3.8-10.6) k/uL RBC 3.49 L (4.30-5.90) m/uL Hgb 10.6 L (13.0-17.5) gm/dL Hct 32.6 L (39.0-53.0) % MCV 93.4 (80.0-100.0) fL MCH 30.5 (25.0-35.0) pg MCHC 32.7 (31.0-37.0) g/dL RDW 14.0 (11.5-15.5) % Plt Count 188 (150-450) k/uL MPV 7.2 Neutrophils % 84 % Lymphocytes % 7 % Monocytes % 4 % Eosinophils % 3 % Basophils % 0 % Neutrophils # 5.2 (1.3-7.7) k/uL Lymphocytes # 0.4 L (1.0-4.8) k/uL Monocytes # 0.3 (0-1.0) k/uL Eosinophils # 0.2 (0-0.7) k/uL Basophils # 0.0 (0-0.2) k/uL Sodium 136 L (137-145) mmol/L Potassium 5.2 H (3.5-5.1) mmol/L Chloride 105 (98-107) mmol/L Carbon Dioxide 27 (22-30) mmol/L Anion Gap 4 mmol/L BUN 40 H (9-20) mg/dL Creatinine 1.79 H (0.66-1.25) mg/dL Est GFR (CKD-EPI)AfAm 42 (>60 ml/min/1.73 sqM) Est GFR (CKD-EPI)NonAf 37 (>60 ml/min/1.73 sqM) Glucose 186 H (74-99) mg/dL Calcium 9.0 (8.4-10.2) mg/dL Total Bilirubin 0.5 (0.2-1.3) mg/dL AST 17 (17-59) U/L ALT 22 (4-49) U/L Alkaline Phosphatase 124 (38-126) U/L Total Protein 5.1 L (6.3-8.2) g/dL Albumin 2.7 L (3.5-5.0) g/dL Urine Color Urine Appearance (Clear) Urine pH (5.0-8.0) Ur Specific [place] (1.001-1.035) Urine Protein (Negative) Urine Glucose (UA) (Negative) Urine Ketones (Negative) Urine Blood (Negative) Urine Nitrite (Negative) Urine Bilirubin (Negative) Urine Urobilinogen (<2.0) mg/dL Ur Leukocyte Esterase (Negative) Urine RBC (0-5) /hpf Urine WBC (0-5) /hpf Ur Squamous Epith Cells (0-4) /hpf Urine Mucus (None) /hpf Coronavirus (PCR) Not Detected (Not Detectd) 11/16/21 Range/Units 13:28 WBC (3.8-10.6) k/uL RBC (4.30-5.90) m/uL Hgb (13.0-17.5) gm/dL Hct (39.0-53.0) % MCV (80.0-100.0) fL MCH (25.0-35.0) pg MCHC (31.0-37.0) g/dL RDW (11.5-15.5) % Plt Count (150-450) k/uL MPV Neutrophils % % Lymphocytes % % Monocytes % % Eosinophils % % Basophils % % Neutrophils # (1.3-7.7) k/uL Lymphocytes # (1.0-4.8) k/uL Monocytes # (0-1.0) k/uL Eosinophils # (0-0.7) k/uL Basophils # (0-0.2) k/uL Sodium (137-145) mmol/L Potassium (3.5-5.1) mmol/L Chloride (98-107) mmol/L Carbon Dioxide (22-30) mmol/L Anion Gap mmol/L BUN (9-20) mg/dL Creatinine (0.66-1.25) mg/dL Est GFR (CKD-EPI)AfAm (>60 ml/min/1.73 sqM) Est GFR (CKD-EPI)NonAf (>60 ml/min/1.73 sqM) Glucose (74-99) mg/dL Calcium (8.4-10.2) mg/dL Total Bilirubin (0.2-1.3) mg/dL AST (17-59) U/L ALT (4-49) U/L Alkaline Phosphatase (38-126) U/L Total Protein (6.3-8.2) g/dL Albumin (3.5-5.0) g/dL Urine Color Light Yellow Urine Appearance Clear (Clear) Urine pH 6.0 (5.0-8.0) Ur Specific [place] 1.014 (1.001-1.035) Urine Protein 1+ H (Negative) Urine Glucose (UA) Trace H (Negative) Urine Ketones Negative (Negative) Urine Blood Negative (Negative) Urine Nitrite Negative (Negative) Urine Bilirubin Negative (Negative) Urine Urobilinogen <2.0 (<2.0) mg/dL Ur Leukocyte Esterase Negative (Negative) Urine RBC 1 (0-5) /hpf Urine WBC 1 (0-5) /hpf Ur Squamous Epith Cells <1 (0-4) /hpf Urine Mucus Rare H (None) /hpf Coronavirus (PCR) (Not Detectd) Disposition Clinical Impression: Dizziness Disposition: HOME SELF-CARE Condition: Stable Instructions (If sedation given, give patient instructions): Dizziness (ED) Additional Instructions: These return to emergency department with any concerning, new, or worsening symptoms. Please follow-up with primary care provider next 1-2 days. Take me clizine as directed for dizziness. Prescriptions: Meclizine [Antivert] 25 mg PO BID #10 tab Is patient prescribed a controlled substance at d/c from ED?: No Referrals: Renzo Boyer MD [Primary Care Provider] - 1-2 days Time of Disposition: 15:52
[2021-11-16] MEDS ORDERED: SODIUM CHLORIDE 0.9% 1,000 ML IV STA (12:32)
[2021-11-16] MEDS ORDERED: MECLIZINE 12.5 MG TAB PO STA (12:32)
[2021-11-16 13:41] LABS: Basophils % (A) 0 %; Eosinophils # (A) 0.2 k/uL (0-0.7); Eosinophils % (A) 3 %; HCT 32.6 % (39.0-53.0); HGB 10.6 gm/dL (13.0-17.5); Lymphocytes # (A) 0.4 k/uL (1.0-4.8); Lymphocytes % (A) 7 %; MCH 30.5 pg (25.0-35.0); MCHC 32.7 g/dL (31.0-37.0); MCV 93.4 fL (80.0-100.0); Mean Platelet Volume 7.2; Monocytes # (A) 0.3 k/uL (0-1.0); Monocytes % (A) 4 %; Neutrophils # (A) 5.2 k/uL (1.3-7.7); Neutrophils % (A) 84 %; Platelet Count 188 k/uL (150-450); RBC 3.49 m/uL (4.30-5.90); WBC 6.3 k/uL (3.8-10.6)
[2021-11-16 14:02] LABS: Albumin 2.7 g/dL (3.5-5.0); Potassium 5.2 mmol/L (3.5-5.1); Total Bilirubin 0.5 mg/dL (0.2-1.3); Total Protein 5.1 g/dL (6.3-8.2)
[2021-11-16 14:22] LABS: Appearance,Urine Clear (Clear); Bilirubin,Urine Negative (Negative); Blood,Urine Negative (Negative); Color,Urine Light Yellow; Glucose,Urine (UA) Trace (Negative); Ketones,Urine Negative (Negative); Leukocyte Esterase,Urine Negative (Negative); Nitrite,Urine Negative (Negative); Protein,Urine 1+ (Negative); Specific Gravity,Urine 1.014 (1.001-1.035); Urobilinogen,Urine <2.0 mg/dL (<2.0)
[2021-11-16 14:23] LABS: Mucus,Urine Rare /hpf; RBC,Urine 1 /hpf (0-5); Squamous Epithelial Cell,Urine <1 /hpf (0-4); WBC,Urine 1 /hpf (0-5)
--- NOTE | 2021-11-16 15:48 | CT ---
EXAMINATION TYPE: CT brain c-spine wo con DATE OF EXAM: 11/16/2021 COMPARISON: CT brain 11/13/2021 HISTORY: Fall, trauma and pain CT DLP: 1472.1 mGycm Automated exposure control for dose reduction was used. TECHNIQUE: CT scan of the head and cervical spine are performed without contrast. FINDINGS: There is no acute intracranial hemorrhage, mass effect, or midline shift identified. The ventricles and sulci are within normal limits in size. Cortical atrophy is present. Periventricular white matter shows patchy low attenuation. There are cerebral vascular calcifications. The globes ar e intact and the visualized sinuses are clear. Cervical spine is visualized in its entirety from C1 through upper thoracic levels and demonstrates s atisfactory alignment without evidence of acute fracture or dislocation. There is multilevel spondylo sis. Loss of disc height is present at intervertebral levels especially C3-4, C4-5, C5-6 and C6-7. Ca lcification present along the posterior aspect of the disc spaces present at C5-C6, C2-3 and C4-5 cau ses anterior mass effect on the thecal sac, spinal stenosis greatest at C5-6, there is multilevel for aminal encroachment due to uncovertebral joint hypertrophy and facet arthropathy. Prevertebral soft t issue appears within normal limits. The C1-C2 articulation is showing marked arthropathy. Atheromatous changes are present in carotid artery bifurcations, there is a stent proximal internal c arotid artery IMPRESSION: 1. There is no acute fracture or dislocation evident in the cervical spine. 2. No acute intracranial hemorrhage, mass effect, or midline shift is seen.
== END 2021-11-16 16:07 | disposition home or self-care (01) ==
LOC: EC 11:57
DX: R42 Dizziness and giddiness (principal); E11.9 Type 2 diabetes mellitus without complications; J44.9 Chronic obstructive pulmonary disease, unspecified; E78.5 Hyperlipidemia, unspecified; Z86.73 Personal history of transient ischemic attack (TIA), and cerebral infarction without residual deficits; I10 Essential (primary) hypertension; I25.2 Old myocardial infarction; Z79.899 Other long term (current) drug therapy; Z20.822 Contact with and (suspected) exposure to COVID-19; Z79.02 Long term (current) use of antithrombotics/antiplatelets; Z79.4 Long term (current) use of insulin
CPT/HCPCS: 36415; 70450; 72125; 80053; 81001; 85025; 87635; 93005; 96360; 96361; 99284

== ENCOUNTER → 2021-11-25 | Outpatient (CLI) | payer MEDICARE, OTHER ==
--- NOTE | 2021-11-30 10:15 | PE ---
Nuclear medicine PET/CT HISTORY: C 34.2, left upper lobe lung carcinoma, subsequent Patient received 13 mCi F-18 FDG intravenously in delayed scanning was performed from the skull base to the mid thighs. A localization and attenuation correction CT scan was performed. Correlation CT chest 10/13/2021, prior PET/CT 08/12/2021 Chest and neck: There is no cervical or supraclavicular adenopathy. No mediastinal, axillary, or jacob r adenopathy. Coronary artery calcifications are again noted. Nodular density left lower lobe is agai n seen without associated uptake ABDOMEN: Bowel uptake is likely physiologic. No retroperitoneal adenopathy. No evident adrenal mass o r suspicious uptake. No liver mass. Osseous structures: Previously identified uptake within the lumbar spine is improved, SUV 1.9. There is sclerosis present at this level possibly due to treated disease. Vertebral body appears irregular. Postop changes are noted to the lower lumbar spine. Diffuse muscular uptake is present is likely phy siologic. IMPRESSION: Interval improvement, healing change in the lumbar spine.
== END | disposition home or self-care (01) ==
LOC: RADPETMAIN 09:24
PROVIDERS: ATTEND Internal Medicine Hematology & Oncology
DX: C34.12 Malignant neoplasm of upper lobe, left bronchus or lung (principal)
CPT/HCPCS: 78815; A9552

== ENCOUNTER → 2021-12-27 | Outpatient (CLI) | payer MEDICARE, OTHER ==
[2021-12-27 17:13] LABS: Appearance,Urine Clear (Clear); Bilirubin,Urine Negative (Negative); Blood,Urine Negative (Negative); Color,Urine Light Yellow; Glucose,Urine (UA) Negative (Negative); Ketones,Urine Negative (Negative); Leukocyte Esterase,Urine Negative (Negative); Nitrite,Urine Negative (Negative); Protein,Urine Trace (Negative); Urobilinogen,Urine <2.0 mg/dL (<2.0)
[2021-12-28 01:48] LABS: HCT 31.5 % (39.6-50.0); HGB 9.7 g/dL (13.0-17.0); MCH 29.1 pg (27.0-32.0); MCHC 30.8 g/dL (32.0-37.0); MCV 94.6 fL (80.0-97.0); Mean Platelet Volume 9.4 fL (9.5-12.2); NRBC Per 100 WBC 0 /100 WBCS (0.0-0.0); Platelet Count 253 X 10*3/uL (140-440); RBC 3.33 X 10*6/uL (4.40-5.60); RDW 14.4 % (11.5-14.5); WBC 8.12 X 10*3/uL (4.50-10.00)
[2021-12-28 02:14] LABS: % Iron Saturation 13.74 (15.00-50.00); African American GFR (CKD) 34.6 (60.0-200.0); Albumin 3.8 g/dL (3.8-4.9); Albumin/Globulin Ratio 1.65 (1.60-3.17); Anion Gap 13.7 mmol/L (10.00-18.00); BUN/Creat Ratio 22.33 Ratio (12.00-20.00); Blood Urea Nitrogen 46.9 mg/dL (9.0-27.0); Calcium 9.5 mg/dL (8.7-10.3); Carbon Dioxide 23.3 mmol/L (20.0-27.5); Globulin 2.3 g/dL (1.6-3.3); Non-African American GFR(CKD) 29.9 (60.0-200.0); Potassium 5.3 mmol/L (3.5-5.5); Total Bilirubin 0.2 mg/dL (0.30-1.20); Total Protein 6.1 g/dL (6.2-8.2); Uric Acid 9.2 mg/dL (3.7-8.7)
[2021-12-28 08:57] LABS: Urine Creatinine 47.3 mg/dL (39.0-259.0)
== END | disposition home or self-care (01) ==
LOC: LABWHC1 15:37
PROVIDERS: ATTEND Internal Medicine
DX: D63.1 Anemia in chronic kidney disease (principal); N18.32 Chronic kidney disease, stage 3b; N39.0 Urinary tract infection, site not specified; R80.9 Proteinuria, unspecified; N25.81 Secondary hyperparathyroidism of renal origin; E55.9 Vitamin D deficiency, unspecified; M10.9 Gout, unspecified
CPT/HCPCS: 36415; 80053; 81003; 82043; 82306; 82570; 82728; 83540; 83550; 83735; 83970; 84100; 84550; 85027

== ENCOUNTER → 2022-01-11 | Outpatient (CLI) | payer MEDICARE ==
--- NOTE | 2022-01-11 11:02 | FL ---
ESOPHOGRAM. HISTORY: Dysphagia Esophagram was performed per the air contrast technique. The patient swallowed barium and effervesce nt crystals without difficulty or delay. Tertiary contractions compatible with presbyesophagus There is no evidence for filling defect, mass or diverticulum. Small reducible sliding type hiatal hernia noted. Subsequently single contrast cervical esophagram was performed which fails demonstrate evidence for a spiration penetration or mass. IMPRESSION: Tertiary contractions compatible with presbyesophagus.Small reducible sliding type hiatal hernia noted.
== END | disposition home or self-care (01) ==
LOC: RADUSWWP 09:49
PROVIDERS: ATTEND Internal Medicine Gastroenterology
DX: K22.89 Other specified disease of esophagus (principal); K44.9 Diaphragmatic hernia without obstruction or gangrene
CPT/HCPCS: 74220

== ENCOUNTER 2022-02-27 14:30 | Emergency (ER) | payer MEDICARE, OTHER ==
[2022-02-27 14:41] LABS: Glucose,Whole Blood 86 mg/dL (75-99)
[2022-02-27 14:48] VITALS: TEMP 97.1
[2022-02-27 15:11] LABS: Glucose,Whole Blood 95 mg/dL (75-99)
--- NOTE | 2022-02-27 15:19 | ED ---
General Adult HPI - General Chief complaint: Altered Mental Status Stated complaint: Hypoglycemia Time Seen by Provider: 02/27/22 15:00 Source: patient, EMS, RN notes reviewed Mode of arrival: EMS Limitations: no limitations - History of Present Illness Initial comments: Patient is a pleasant 76-year-old male presenting to the emergency department with hypoglycemia. Patient states he did not eat breakfast. Patient did have low blood sugar. Patient accidentally took his insulin. Patient was reportedly confused. Patient states he feels fine at this time and has no complaints. Patient did receive glucose from EMS. Patient denies any recent illness. - Related Data Home Medications Medication Instructions Recorded Confirmed Simvastatin [Zocor] 40 mg PO HS 07/30/19 02/27/22 amLODIPine [Norvasc] 10 mg PO HS 07/30/19 02/27/22 levETIRAcetam [Keppra] 500 mg PO BID 07/30/19 02/27/22 Omeprazole 20 mg PO HS 07/06/20 02/27/22 Rivaroxaban [Xarelto] 15 mg PO HS 01/12/21 02/27/22 Solifenacin Succinate [Vesicare] 10 mg PO HS 01/12/21 02/27/22 Furosemide [Lasix] 40 mg PO DAILY PRN 06/03/21 02/27/22 Ipratropium-Albuterol Nebulize 3 ml INHALATION RT-BID 10/14/21 02/27/22 [Duoneb 0.5 mg-3 mg/3 ml Soln] Aspirin [Adult Low Dose Aspirin EC] 81 mg PO HS 02/27/22 02/27/22 Ergocalciferol [Vitamin D2 (1250 1,250 mcg PO TU 02/27/22 02/27/22 Mcg = 46720 Iu)] Insulin Aspart [NovoLOG Flexpen] See Protocol SQ AC-TID PRN 02/27/22 02/27/22 Insulin Degludec [Tresiba 15 units SQ HS 02/27/22 02/27/22 Flextouch U-100 Pen] Magnesium Oxide [Mag-Ox] 400 mg PO HS 02/27/22 02/27/22 Previous Rx's Medication Instructions Recorded Metoprolol Tartrate 25 mg PO BID #60 tab 09/10/19 Levothyroxine Sodium [Synthroid] 25 mcg PO DAILY@0630 30 Days #30 07/08/20 tab Allergies Allergy/AdvReac Type Severity Reaction Status Date / Time No Known Allergies Allergy Verified 02/27/22 17:40 Review of Systems ROS Statement: Those systems with pertinent positive or pertinent negative responses have been documented in the HPI. ROS Other: All systems not noted in ROS Statement are negative. Constitutional: Denies: fever Eyes: Denies: eye pain ENT: Denies: ear pain Respiratory: Denies: cough Cardiovascular: Denies: chest pain Endocrine: Denies: fatigue Gastrointestinal: Denies: abdominal pain Genitourinary: Denies: dysuria Musculoskeletal: Denies: back pain Skin: Denies: rash Neurological: Denies: weakness Past Medical History Past Medical History: Cancer, COPD, CVA/TIA, Diabetes Mellitus, Hyperlipidemia, Hypertension, Renal Disease, Seizure Disorder Additional Past Medical History / Comment(s): 07/2018 L lung cancer with left upper lobectomy., R lower lobe cancer in August 2019 and had wedge resection and immunotherapy., bronchitis, TIA and seizure after bronchoscopy in 2017, DVT L leg, IDDM type II, chronic cervical/back pain, BPH, stage III kidney disease, chronic constipation ., dysphagia with 11 # wt loss., states spot on spine L-3., states he thinks he has a sore on his tailbone., hx of carotid s tenosis with stent 06/03/2021. Last Myocardial Infarction Date:: 05/24/12 History of Any Multi-Drug Resistant Organisms: None Reported Past Surgical History: Back Surgery, Cholecystectomy, Heart Catheterization, Heart Catheterization With Stent, Hernia Repair, Tonsillectomy Additional Past Surgical History / Comment(s): 2018 Bronchoscopy with bx, 2017 L upper lobectomy at [facility], August 2019 R lower lung wedge resection, low back surgery, umbilical hernia repair, bilateral cataract removals ., right transcarotid artery revasculazation with stent May 2021 Past Anesthesia/Blood Transfusion Reactions: Previous Problems w/ Anesthesia Additional Past Anesthesia/Blood Transfusion Reaction / Comment(s): Seizure and mini stroke following lung biopsy Date of Last Stent Placement:: 06/03/2021-CAROTID STENT Past Psychological History: No Psychological Hx Reported Smoking Status: Never smoker Past Alcohol Use History: None Reported Past Drug Use History: None Reported - Past Family History Mother Family Medical History: No Reported History Additional Family Medical History / Comment(s): Mother was healthy Father Family Medical History: Diabetes Mellitus Additional Family Medical History / Comment(s): Father of diabetes at the age of 83 yrs. General Exam Limitations: no limitations General appearance: alert, in no apparent distress Head exam: Present: normocephalic Eye exam: Present: normal appearance Neck exam: Present: normal inspection Respiratory exam: Present: normal lung sounds bilaterally Cardiovascular Exam: Present: regular rate, normal rhythm GI/Abdominal exam: Present: soft. Absent: tenderness Neurological exam: Present: alert, oriented X3, CN II-XII intact. Absent: motor sensory deficit Expanded Neurological exam: Present: protecting the airway Speech: Present: fluid speech Cranial nerves: EOM's Intact: Normal Motor strength exam: RUE: 5, LUE: 5, RLE: 5, LLE: 5 Eye Response: (4) open spontaneously Motor Response: (6) obeys commands Verbal Response: (5) oriented Psychiatric exam: Present: normal affect, normal mood Skin exam: Present: normal color Course Vital Signs 02/27/22 14:36 Temperature 97.1 F L Pulse Rate 69 Respiratory 18 Rate Blood Pressure 106/61 O2 Sat by Pulse 94 L Oximetry Medical Decision Making - Medical Decision Making Patient reevaluated and resting comfortably in bed. Blood sugars have improved. Patient updated on results and need for follow-up. Patient is agreeable. - Lab Data Result diagrams: 02/27/22 16:27 02/27/22 16:28 Lab Results 02/27/22 02/27/22 02/27/22 Range/Units 14:39 15:09 16:27 WBC 6.4 (3.8-10.6) k/uL RBC 3.43 L (4.30-5.90) m/uL Hgb 10.5 L (13.0-17.5) gm/dL Hct 32.5 L (39.0-53.0) % MCV 94.7 (80.0-100.0) fL MCH 30.6 (25.0-35.0) pg MCHC 32.3 (31.0-37.0) g/dL RDW 15.6 H (11.5-15.5) % Plt Count 177 (150-450) k/uL MPV 7.6 Neutrophils % 88 % Lymphocytes % 5 % Monocytes % 5 % Eosinophils % 1 % Basophils % 0 % Neutrophils # 5.6 (1.3-7.7) k/uL Lymphocytes # 0.3 L (1.0-4.8) k/uL Monocytes # 0.3 (0-1.0) k/uL Eosinophils # 0.1 (0-0.7) k/uL Basophils # 0.0 (0-0.2) k/uL PT (9.0-12.0) sec INR (<1.2) APTT (22.0-30.0) sec Sodium (137-145) mmol/L Potassium (3.5-5.1) mmol/L Chloride (98-107) mmol/L Carbon Dioxide (22-30) mmol/L Anion Gap mmol/L BUN (9-20) mg/dL Creatinine (0.66-1.25) mg/dL Est GFR (CKD-EPI)AfAm (>60 ml/min/1.73 sqM) Est GFR (CKD-EPI)NonAf (>60 ml/min/1.73 sqM) Glucose (74-99) mg/dL POC Glucose (mg/dL) 86 95 (75-99) mg/dL POC Glu Flexible Nanny ID Belval, Erika Belval, Erika Calcium (8.4-10.2) mg/dL Total Bilirubin (0.2-1.3) mg/dL AST (17-59) U/L ALT (4-49) U/L Alkaline Phosphatase (38-126) U/L Troponin I (0.000-0.034) ng/mL Total Protein (6.3-8.2) g/dL Albumin (3.5-5.0) g/dL Urine Color Urine Appearance (Clear) Urine pH (5.0-8.0) Ur Specific [place] (1.001-1.035) Urine Protein (Negative) Urine Glucose (UA) (Negative) Urine Ketones (Negative) Urine Blood (Negative) Urine Nitrite (Negative) Urine Bilirubin (Negative) Urine Urobilinogen (<2.0) mg/dL Ur Leukocyte Esterase (Negative) 02/27/22 02/27/22 02/27/22 Range/Units 16:27 16:27 16:28 WBC (3.8-10.6) k/uL RBC (4.30-5.90) m/uL Hgb (13.0-17.5) gm/dL Hct (39.0-53.0) % MCV (80.0-100.0) fL MCH (25.0-35.0) pg MCHC (31.0-37.0) g/dL RDW (11.5-15.5) % Plt Count (150-450) k/uL MPV Neutrophils % % Lymphocytes % % Monocytes % % Eosinophils % % Basophils % % Neutrophils # (1.3-7.7) k/uL Lymphocytes # (1.0-4.8) k/uL Monocytes # (0-1.0) k/uL Eosinophils # (0-0.7) k/uL Basophils # (0-0.2) k/uL PT 14.7 H (9.0-12.0) sec INR 1.4 H (<1.2) APTT 34.9 H (22.0-30.0) sec Sodium 139 (137-145) mmol/L Potassium 4.5 (3.5-5.1) mmol/L Chloride 107 (98-107) mmol/L Carbon Dioxide 27 (22-30) mmol/L Anion Gap 5 mmol/L BUN 59 H (9-20) mg/dL Creatinine 2.49 H (0.66-1.25) mg/dL Est GFR (CKD-EPI)AfAm 28 (>60 ml/min/1.73 sqM) Est GFR (CKD-EPI)NonAf 24 (>60 ml/min/1.73 sqM) Glucose 120 H (74-99) mg/dL POC Glucose (mg/dL) (75-99) mg/dL POC Glu Flexible Nanny ID Calcium 8.9 (8.4-10.2) mg/dL Total Bilirubin 0.3 (0.2-1.3) mg/dL AST 32 (17-59) U/L ALT 79 H (4-49) U/L Alkaline Phosphatase 227 H (38-126) U/L Troponin I 0.023 (0.000-0.034) ng/mL Total Protein 5.6 L (6.3-8.2) g/dL Albumin 3.1 L (3.5-5.0) g/dL Urine Color Urine Appearance (Clear) Urine pH (5.0-8.0) Ur Specific [place] (1.001-1.035) Urine Protein (Negative) Urine Glucose (UA) (Negative) Urine Ketones (Negative) Urine Blood (Negative) Urine Nitrite (Negative) Urine Bilirubin (Negative) Urine Urobilinogen (<2.0) mg/dL Ur Leukocyte Esterase (Negative) 02/27/22 02/27/22 Range/Units 16:48 17:35 WBC (3.8-10.6) k/uL RBC (4.30-5.90) m/uL Hgb (13.0-17.5) gm/dL Hct (39.0-53.0) % MCV (80.0-100.0) fL MCH (25.0-35.0) pg MCHC (31.0-37.0) g/dL RDW (11.5-15.5) % Plt Count (150-450) k/uL MPV Neutrophils % % Lymphocytes % % Monocytes % % Eosinophils % % Basophils % % Neutrophils # (1.3-7.7) k/uL Lymphocytes # (1.0-4.8) k/uL Monocytes # (0-1.0) k/uL Eosinophils # (0-0.7) k/uL Basophils # (0-0.2) k/uL PT (9.0-12.0) sec INR (<1.2) APTT (22.0-30.0) sec Sodium (137-145) mmol/L Potassium (3.5-5.1) mmol/L Chloride (98-107) mmol/L Carbon Dioxide (22-30) mmol/L Anion Gap mmol/L BUN (9-20) mg/dL Creatinine (0.66-1.25) mg/dL Est GFR (CKD-EPI)AfAm (>60 ml/min/1.73 sqM) Est GFR (CKD-EPI)NonAf (>60 ml/min/1.73 sqM) Glucose (74-99) mg/dL POC Glucose (mg/dL) 136 H (75-99) mg/dL POC Glu Flexible Nanny ID Belval, Erika Calcium (8.4-10.2) mg/dL Total Bilirubin (0.2-1.3) mg/dL AST (17-59) U/L ALT (4-49) U/L Alkaline Phosphatase (38-126) U/L Troponin I (0.000-0.034) ng/mL Total Protein (6.3-8.2) g/dL Albumin (3.5-5.0) g/dL Urine Color Light Yellow Urine Appearance Clear (Clear) Urine pH 5.0 (5.0-8.0) Ur Specific [place] 1.011 (1.001-1.035) Urine Protein Trace H (Negative) Urine Glucose (UA) Negative (Negative) Urine Ketones Negative (Negative) Urine Blood Negative (Negative) Urine Nitrite Negative (Negative) Urine Bilirubin Negative (Negative) Urine Urobilinogen <2.0 (<2.0) mg/dL Ur Leukocyte Esterase Negative (Negative) - Radiology Data Radiology results: image reviewed (X-ray shows no acute process) Disposition Clinical Impression: Hypoglycemia Disposition: HOME SELF-CARE Condition: Stable Instructions (If sedation given, give patient instructions): Hypoglycemia in a Person with Diabetes (ED) Additional Instructions: Please do follow-up with primary care physician in the next day or 2 for recheck. Do not take insulin if Blood sugar is low. Return for low blood sugar, confusion, worsening or changing symptoms or any other concerns. Is patient prescribed a controlled substance at d/c from ED?: No Referrals: Renzo Boyer MD [Primary Care Provider] - 1-2 days Time of Disposition: 17:53
[2022-02-27 16:51] LABS: Basophils % (A) 0 %; Eosinophils # (A) 0.1 k/uL (0-0.7); Eosinophils % (A) 1 %; HCT 32.5 % (39.0-53.0); HGB 10.5 gm/dL (13.0-17.5); Lymphocytes # (A) 0.3 k/uL (1.0-4.8); Lymphocytes % (A) 5 %; MCH 30.6 pg (25.0-35.0); MCHC 32.3 g/dL (31.0-37.0); MCV 94.7 fL (80.0-100.0); Mean Platelet Volume 7.6; Monocytes # (A) 0.3 k/uL (0-1.0); Monocytes % (A) 5 %; Neutrophils # (A) 5.6 k/uL (1.3-7.7); Neutrophils % (A) 88 %; Platelet Count 177 k/uL (150-450); RBC 3.43 m/uL (4.30-5.90); RDW 15.6 % (11.5-15.5); WBC 6.4 k/uL (3.8-10.6)
--- NOTE | 2022-02-27 17:05 | XR ---
EXAMINATION TYPE: XR chest 2V DATE OF EXAM: 02/27/2022 COMPARISON: 11/13/2021 HISTORY: Altered mental status TECHNIQUE: FINDINGS: Heart is normal. Lungs are clear of infiltrate. There is no heart failure. There are no hil ar masses. Thoracic aorta is atheromatous. There is no pleural effusion. IMPRESSION: No active cardiopulmonary disease. Normal heart. No change.
[2022-02-27 17:06] LABS: Albumin 3.1 g/dL (3.5-5.0); Calcium 8.9 mg/dL (8.4-10.2); Potassium 4.5 mmol/L (3.5-5.1); Total Protein 5.6 g/dL (6.3-8.2)
[2022-02-27 17:07] LABS: Total Bilirubin 0.3 mg/dL (0.2-1.3)
[2022-02-27 17:07] LABS: INR 1.4 (<1.2)
[2022-02-27 17:08] LABS: Partial Thromboplastin Time 34.9 sec (22.0-30.0); Prothrombin Time 14.7 sec (9.0-12.0)
[2022-02-27 17:27] LABS: Appearance,Urine Clear (Clear); Bilirubin,Urine Negative (Negative); Blood,Urine Negative (Negative); Color,Urine Light Yellow; Glucose,Urine (UA) Negative (Negative); Ketones,Urine Negative (Negative); Leukocyte Esterase,Urine Negative (Negative); Nitrite,Urine Negative (Negative); Protein,Urine Trace (Negative); Specific Gravity,Urine 1.011 (1.001-1.035); Urobilinogen,Urine <2.0 mg/dL (<2.0)
[2022-02-27 17:36] LABS: Glucose,Whole Blood 136 mg/dL (75-99)
[2022-02-27 19:21] VITALS: BP 134/76; PULSE 84; RESP 16
== END 2022-02-27 18:30 | disposition home or self-care (01) ==
LOC: EC 14:30
DX: E16.2 Hypoglycemia, unspecified (principal); J44.9 Chronic obstructive pulmonary disease, unspecified; E11.9 Type 2 diabetes mellitus without complications; I10 Essential (primary) hypertension; Z86.73 Personal history of transient ischemic attack (TIA), and cerebral infarction without residual deficits
CPT/HCPCS: 36415; 71046; 80053; 81003; 84484; 85025; 85610; 85730; 99285

== ENCOUNTER → 2022-03-10 | Outpatient (CLI) | payer MEDICARE, OTHER ==
--- NOTE | 2022-03-12 22:20 | PE ---
EXAMINATION TYPE: PET CT fusion skull to thigh DATE OF EXAM: 03/10/2022 COMPARISON: Prior PET/CT November 25, 2021 and older studies HISTORY: Left upper lung cancer originally diagnosed 2018 currently on chemotherapy. TECHNIQUE: Following the intravenous administration of 9.74 mCi of F-18 FDG, whole body images are p erformed from the skull base to the midthigh. Images are reviewed on the computer in the coronal, ax ial, and sagittal planes. Reconstructed rotating images are created on independent workstation and r eviewed on the computer. A localization and attenuation correction CT is performed in conjunction w ith the PET scan. Blood glucose level equals 174 SCAN: Subsequent Scan FINDINGS: SKULL BASE AND NECK: New right posterior upper cervical muscular uptake present inflammatory axial i mage 34. No new suspicious abnormal hypermetabolic uptake. CHEST, MEDIASTINUM, AND HILAR REGION: Background of mild to moderate underlying emphysematous changes redemonstrated. Stable metabolic 1.6 x 1.0 cm anterior right upper lung nodule axial image 91. Stable roughly 5 mm no dule in the lingula axial image 114 also remains a metabolic. Mild bibasilar linear scarring. No new areas of abnormal hypermetabolic uptake. ABDOMEN AND PELVIS: Mild nonspecific right mid to lower abdominal bowel uptake. More prominent anteri or pelvic bowel uptake No suspicious new hypermetabolic uptake. No new adrenal masses are evident. OSSEOUS STRUCTURES: No new suspicious hypermetabolic uptake. OTHER CT: Overall improved diffuse muscular uptake. Right-sided carotid stent is redemonstrated. Moderate left-sided calcified plaque. Coronary artery calcification is again seen. Small sliding-type hiatal hernia redemonstrated. Cholecystectomy clips are redemonstrated. Severe fat replaced atrophy of the pancreas. Enlarged prostate gland consistent with BPH is redemonstrated. Few diverticula are again seen in the sigmoid colon. IMPRESSION: No new suspicious hypermetabolic uptake to suggest active neoplastic recurrence.
== END | disposition home or self-care (01) ==
LOC: RADXRMAIN 13:44
PROVIDERS: ATTEND Internal Medicine Hematology & Oncology
DX: C34.12 Malignant neoplasm of upper lobe, left bronchus or lung (principal)
CPT/HCPCS: 78815; A9552

== ENCOUNTER 2022-03-31 18:27 | Inpatient (IN) | payer MEDICARE, OTHER ==
[2022-03-31 20:12] LABS: Basophils # (A) 0.1 k/uL (0-0.2); Basophils % (A) 1 %; Eosinophils # (A) 0.6 k/uL (0-0.7); Eosinophils % (A) 6 %; HCT 37.8 % (39.0-53.0); HGB 11.7 gm/dL (13.0-17.5); Lymphocytes # (A) 0.8 k/uL (1.0-4.8); Lymphocytes % (A) 9 %; MCH 29.2 pg (25.0-35.0); MCV 94.2 fL (80.0-100.0); Mean Platelet Volume 7.9; Monocytes # (A) 0.5 k/uL (0-1.0); Monocytes % (A) 5 %; Neutrophils # (A) 7.1 k/uL (1.3-7.7); Neutrophils % (A) 78 %; Platelet Count 235 k/uL (150-450); RBC 4.02 m/uL (4.30-5.90); RDW 14.2 % (11.5-15.5); WBC 9.1 k/uL (3.8-10.6)
[2022-03-31 20:26] LABS: INR 1.2 (<1.2); Partial Thromboplastin Time 33.4 sec (22.0-30.0); Prothrombin Time 12.5 sec (9.0-12.0)
--- NOTE | 2022-03-31 20:28 | XR ---
EXAMINATION TYPE: XR chest 2V DATE OF EXAM: 03/31/2022 COMPARISON: 02/27/2022 HISTORY: Short of breath TECHNIQUE: FINDINGS: Heart is normal. Lungs are clear of infiltrate. No heart failure. Bony thorax is intact. Di aphragm is normal. IMPRESSION: No active cardiopulmonary disease. No change.
[2022-03-31 20:30] LABS: Albumin 3.9 g/dL (3.5-5.0); Calcium 9.1 mg/dL (8.4-10.2); Potassium 4.8 mmol/L (3.5-5.1); Total Bilirubin 0.3 mg/dL (0.2-1.3); Total Protein 6.8 g/dL (6.3-8.2)
[2022-03-31] MEDS ORDERED: ALBUTEROL NEBULIZED 2.5 MG/3 ML INHALATION STA (23:37)
[2022-03-31] MEDS ORDERED: predniSONE 20 MG TAB PO STA (23:37)
[2022-03-31] MEDS ORDERED: IPRATROPIUM-ALBUTEROL 3 ML NEB INHALATION STA (23:37)
--- NOTE | 2022-03-31 23:40 | ED ---
SOB HPI - General Chief Complaint: Shortness of Breath Stated Complaint: SOB Time Seen by Provider: 03/31/22 22:34 Source: patient Mode of arrival: ambulatory Limitations: no limitations - History of Present Illness Initial Comments: This patient is a 76-year-old man who presents to have evaluation of worsening of his cough. He has history of COPD. He states that he has had some shortness of breath going back for months. He has had his cough become more productive of greenish sputum over the past few days to up to a couple of weeks. He has not n oted fever or chills. He denies chest pain. No change in urination or bowel movements. No leg pain or swelling. MD Complaint: shortness of breath, cough -: week(s) Severity scale (1-10): 0 Consistency: constant Improves With: nothing Worsens With: nothing Known History Of: COPD Associated Symptoms: cough Treatments Prior to Arrival: none - Related Data Home Oxygen Therapy: No Home Medications Medication Instructions Recorded Confirmed Simvastatin [Zocor] 40 mg PO HS 07/30/19 02/27/22 amLODIPine [Norvasc] 10 mg PO HS 07/30/19 02/27/22 levETIRAcetam [Keppra] 500 mg PO BID 07/30/19 02/27/22 Omeprazole 20 mg PO HS 07/06/20 02/27/22 Rivaroxaban [Xarelto] 15 mg PO HS 01/12/21 02/27/22 Solifenacin Succinate [Vesicare] 10 mg PO HS 01/12/21 02/27/22 Furosemide [Lasix] 40 mg PO DAILY PRN 06/03/21 02/27/22 Ipratropium-Albuterol Nebulize 3 ml INHALATION RT-BID 10/14/21 02/27/22 [Duoneb 0.5 mg-3 mg/3 ml Soln] Aspirin [Adult Low Dose Aspirin EC] 81 mg PO HS 02/27/22 02/27/22 Ergocalciferol [Vitamin D2 (1250 1,250 mcg PO TU 02/27/22 02/27/22 Mcg = 95796 Iu)] Insulin Aspart [NovoLOG Flexpen] See Protocol SQ AC-TID PRN 02/27/22 02/27/22 Insulin Degludec [Tresiba 15 units SQ HS 02/27/22 02/27/22 Flextouch U-100 Pen] Magnesium Oxide [Mag-Ox] 400 mg PO HS 02/27/22 02/27/22 Previous Rx's Medication Instructions Recorded Metoprolol Tartrate 25 mg PO BID #60 tab 09/10/19 Levothyroxine Sodium [Synthroid] 25 mcg PO DAILY@0630 30 Days #30 07/08/20 tab Allergies Allergy/AdvReac Type Severity Reaction Status Date / Time No Known Allergies Allergy Verified 03/31/22 19:25 Review of Systems ROS Statement: Those systems with pertinent positive or pertinent negative responses have been documented in the HPI. ROS Other: All systems not noted in ROS Statement are negative. Constitutional: Denies: fever, chills Respiratory: Reports: cough, dyspnea, wheezes. Denies: hemoptysis, stridor Cardiovascular: Denies: chest pain, palpitations, edema, syncope Gastrointestinal: Denies: abdominal pain, vomiting, diarrhea Genitourinary: Denies: dysuria, hematuria Musculoskeletal: Denies: back pain Skin: Denies: rash Neurological: Denies: headache, weakness Past Medical History Past Medical History: Cancer, COPD, CVA/TIA, Diabetes Mellitus, Hyperlipidemia, Hypertension, Renal Disease, Seizure Disorder Additional Past Medical History / Comment(s): 07/2018 L lung cancer with left upper lobectomy., R lower lobe cancer in August 2019 and had wedge resection and immunotherapy., bronchitis, TIA and seizure after bronchoscopy in 2017, DVT L leg, IDDM type II, chronic cervical/back pain, BPH, stage III kidney disease, chronic constipation ., dysphagia with 11 # wt loss., states spot on spine L-3., states he thinks he has a sore on his tailbone., hx of carotid stenosis with stent 06/03/2021. Last Myocardial Infarction Date:: 05/24/12 History of Any Multi-Drug Resistant Organisms: None Reported Past Surgical History: Back Surgery, Cholecystectomy, Heart Catheterization, Heart Catheterization With Stent, Hernia Repair, Tonsillectomy Additional Past Surgical History / Comment(s): 2017 Bronchoscopy with bx, 2017 L upper lobectomy at [facility], August 2019 R lower lung wedge resection, low back surgery, umbilical hernia repair, bilateral cataract removals ., right transcarotid artery revasculazation with stent May 2021 Past Anesthesia/Blood Transfusion Reactions: Previous Problems w/ Anesthesia Additional Past Anesthesia/Blood Transfusion Reaction / Comment(s): Seizure and mini stroke following lung biopsy Date of Last Stent Placement:: 06/03/2021-CAROTID STENT Past Psychological History: No Psychological Hx Reported Smoking Status: Never smoker Past Alcohol Use History: None Reported Past Drug Use History: None Reported - Past Family History Mother Family Medical History: No Reported History Additional Family Medical History / Comment(s): Mother was healthy Father Family Medical History: Diabetes Mellitus Additional Family Medical History / Comment(s): Father of diabetes at the age of 83 yrs. General Exam Limitations: no limitations General appearance: alert, in no apparent distress Head exam: Present: atraumatic, normocephalic Eye exam: Present: normal appearance. Absent: scleral icterus, conjunctival injection Respiratory exam: Present: wheezes, rhonchi. Absent: respiratory distress, rales, stridor, chest wall tenderness, accessory muscle use, decreased breath sounds Cardiovascular Exam: Present: regular rate, normal rhythm, normal heart sounds. Absent: systolic murmur, diastolic murmur, rubs, gallop GI/Abdominal exam: Present: soft. Absent: distended, tenderness, guarding, rebound, rigid, mass Extremities exam: Present: normal inspection, normal capillary refill. Absent: pedal edema, calf tenderness Back exam: Present: normal inspection. Absent: CVA tenderness (R), CVA tenderness (L) Neurological exam: Present: alert Skin exam: Present: warm, dry, intact, normal color. Absent: rash Course Vital Signs 03/31/22 03/31/22 04/01/22 19:25 19:30 00:24 Temperature 98.3 F Pulse Rate 72 76 Respiratory 16 20 Rate Blood Pressure 112/67 O2 Sat by Pulse 95 Oximetry 04/01/22 00:43 Temperature Pulse Rate 77 Respiratory Rate Blood Pressure O2 Sat by Pulse Oximetry Medical Decision Making - Lab Data Result diagrams: 03/31/22 19:31 03/31/22 19:31 Lab Results 03/31/22 03/31/22 03/31/22 Range/Units 19:31 19:31 19:31 WBC 9.1 (3.8-10.6) k/uL RBC 4.02 L (4.30-5.90) m/uL Hgb 11.7 L (13.0-17.5) gm/dL Hct 37.8 L (39.0-53.0) % MCV 94.2 (80.0-100.0) fL MCH 29.2 (25.0-35.0) pg MCHC 31.0 (31.0-37.0) g/dL RDW 14.2 (11.5-15.5) % Plt Count 235 (150-450) k/uL MPV 7.9 Neutrophils % 78 % Lymphocytes % 9 % Monocytes % 5 % Eosinophils % 6 % Basophils % 1 % Neutrophils # 7.1 (1.3-7.7) k/uL Lymphocytes # 0.8 L (1.0-4.8) k/uL Monocytes # 0.5 (0-1.0) k/uL Eosinophils # 0.6 (0-0.7) k/uL Basophils # 0.1 (0-0.2) k/uL PT 12.5 H (9.0-12.0) sec INR 1.2 H (<1.2) APTT 33.4 H (22.0-30.0) sec Sodium 138 (137-145) mmol/L Potassium 4.8 (3.5-5.1) mmol/L Chloride 104 (98-107) mmol/L Carbon Dioxide 23 (22-30) mmol/L Anion Gap 11 mmol/L BUN 66 H (9-20) mg/dL Creatinine 3.01 H (0.66-1.25) mg/dL Est GFR (CKD-EPI)AfAm 22 (>60 ml/min/1.73 sqM) Est GFR (CKD-EPI)NonAf 19 (>60 ml/min/1.73 sqM) Glucose 111 H (74-99) mg/dL Plasma Lactic Acid Nehemias (0.7-2.0) mmol/L Calcium 9.1 (8.4-10.2) mg/dL Total Bilirubin 0.3 (0.2-1.3) mg/dL AST 35 (17-59) U/L ALT 33 (4-49) U/L Alkaline Phosphatase 148 H (38-126) U/L Troponin I (0.000-0.034) ng/mL Total Protein 6.8 (6.3-8.2) g/dL Albumin 3.9 (3.5-5.0) g/dL Coronavirus (PCR) (Not Detectd) Influenza Type A RNA (Not Detectd) Influenza Type B (PCR) (Not Detectd) 03/31/22 03/31/22 03/31/22 Range/Units 19:31 19:31 23:35 WBC (3.8-10.6) k/uL RBC (4.30-5.90) m/uL Hgb (13.0-17.5) gm/dL Hct (39.0-53.0) % MCV (80.0-100.0) fL MCH (25.0-35.0) pg MCHC (31.0-37.0) g/dL RDW (11.5-15.5) % Plt Count (150-450) k/uL MPV Neutrophils % % Lymphocytes % % Monocytes % % Eosinophils % % Basophils % % Neutrophils # (1.3-7.7) k/uL Lymphocytes # (1.0-4.8) k/uL Monocytes # (0-1.0) k/uL Eosinophils # (0-0.7) k/uL Basophils # (0-0.2) k/uL PT (9.0-12.0) sec INR (<1.2) APTT (22.0-30.0) sec Sodium (137-145) mmol/L Potassium (3.5-5.1) mmol/L Chloride (98-107) mmol/L Carbon Dioxide (22-30) mmol/L Anion Gap mmol/L BUN (9-20) mg/dL Creatinine (0.66-1.25) mg/dL Est GFR (CKD-EPI)AfAm (>60 ml/min/1.73 sqM) Est GFR (CKD-EPI)NonAf (>60 ml/min/1.73 sqM) Glucose (74-99) mg/dL Plasma Lactic Acid Nehemias 1.1 (0.7-2.0) mmol/L Calcium (8.4-10.2) mg/dL Total Bilirubin (0.2-1.3) mg/dL AST (17-59) U/L ALT (4-49) U/L Alkaline Phosphatase (38-126) U/L Troponin I 0.021 (0.000-0.034) ng/mL Total Protein (6.3-8.2) g/dL Albumin (3.5-5.0) g/dL Coronavirus (PCR) (Not Detectd) Influenza Type A RNA Not Detected (Not Detectd) Influenza Type B (PCR) Not Detected (Not Detectd) 03/31/22 Range/Units 23:35 WBC (3.8-10.6) k/uL RBC (4.30-5.90) m/uL Hgb (13.0-17.5) gm/dL Hct (39.0-53.0) % MCV (80.0-100.0) fL MCH (25.0-35.0) pg MCHC (31.0-37.0) g/dL RDW (11.5-15.5) % Plt Count (150-450) k/uL MPV Neutrophils % % Lymphocytes % % Monocytes % % Eosinophils % % Basophils % % Neutrophils # (1.3-7.7) k/uL Lymphocytes # (1.0-4.8) k/uL Monocytes # (0-1.0) k/uL Eosinophils # (0-0.7) k/uL Basophils # (0-0.2) k/uL PT (9.0-12.0) sec INR (<1.2) APTT (22.0-30.0) sec Sodium (137-145) mmol/L Potassium (3.5-5.1) mmol/L Chloride (98-107) mmol/L Carbon Dioxide (22-30) mmol/L Anion Gap mmol/L BUN (9-20) mg/dL Creatinine (0.66-1.25) mg/dL Est GFR (CKD-EPI)AfAm (>60 ml/min/1.73 sqM) Est GFR (CKD-EPI)NonAf (>60 ml/min/1.73 sqM) Glucose (74-99) mg/dL Plasma Lactic Acid Nehemias (0.7-2.0) mmol/L Calcium (8.4-10.2) mg/dL Total Bilirubin (0.2-1.3) mg/dL AST (17-59) U/L ALT (4-49) U/L Alkaline Phosphatase (38-126) U/L Troponin I (0.000-0.034) ng/mL Total Protein (6.3-8.2) g/dL Albumin (3.5-5.0) g/dL Coronavirus (PCR) Not Detected (Not Detectd) Influenza Type A RNA (Not Detectd) Influenza Type B (PCR) (Not Detectd) - EKG Data -: EKG Interpreted by Me EKG shows normal: sinus rhythm, axis (Normal), intervals (Normal), QRS complexes (Normal), ST-T waves (Normal) Rate: normal (Rate 73 bpm) Interpretation: nonspecific ST-T wave changes Disposition Clinical Impression: COPD (chronic obstructive pulmonary disease), Acute kidney injury Disposition: ADMITTED IP TO THIS HOSP Condition: Fair Is patient prescribed a controlled substance at d/c from ED?: No Referrals: Renzo Boyer MD [Primary Care Provider] - 1-2 days
--- NOTE | 2022-04-01 06:59 | P.HPIM ---
History of Present Illness H&P Date: 04/01/22 Chief Complaint: cough 76-year-old male with history of metastatic adenocarcinoma of the lungs , COPD not on home oxygen, diabetes mellitus, CK D Patient comes in reporting progressive worsening of shortness of breath and coughing over the past couple days. He claims that he noticed gradually worsening shortness of breath and cough over the past couple weeks, worse over the past couple days no associated fevers or chills however his cough has gotten significantly worse associated with productive greenish sputum. Now he feels short of breath even at rest. No associated chest pain nausea vomiting or profuse sweating with episodes of shortness of breath. He denies any recent traveling he takes a blood thinner Xarelto . Denies any known sick contacts. Denies any GI bleeding or changes in his bowel or urinary habits. Patient does not use home oxygen, he reports symptoms are not quite improving with home treatment, denies any hemoptysis. He is on long-term anticoagulation for history of DVT Workup in the ED chest x-ray showed no acute disease Blood work showed no leukocytosis, chronic anemia, acute kidney injury on CK D Patient was admitted for acute COPD exacerbation I saw and evaluated the patient independently today, and I agree with the documented assessment and plan by my colleague earlier this morning. Review of Systems Pertinent positives as noted in HPI. All other systems were reviewed and are negative Past Medical History Past Medical History: Cancer, COPD, CVA/TIA, Diabetes Mellitus, Hyperlipidemia, Hypertension, Renal Disease, Seizure Disorder Additional Past Medical History / Comment(s): 07/2018 L lung cancer with left upper lobectomy., R lower lobe cancer in August 2019 and had wedge resection and immunotherapy., bronchitis, TIA and seizure after bronchoscopy in 2018, DVT L leg, IDDM type II, chronic cervical/back pain, BPH, stage III kidney disease, chronic constipation ., dysphagia with 11 # wt loss., states spot on spine L-3., states he thinks he has a sore on his tailbone., hx of carotid stenosis with stent 06/03/2021. Last Myocardial Infarction Date:: 05/24/12 History of Any Multi-Drug Resistant Organisms: None Reported Past Surgical History: Back Surgery, Cholecystectomy, Heart Catheterization, Heart Catheterization With Stent, Hernia Repair, Tonsillectomy Additional Past Surgical History / Comment(s): 2018 Bronchoscopy with bx, 2018 L upper lobectomy at [facility], August 2019 R lower lung wedge resection, low back surgery, umbilical hernia repair, bilateral cataract removals ., right transcarotid artery revasculazation with stent May 2021 Past Anesthesia/Blood Transfusion Reactions: Previous Problems w/ Anesthesia Additional Past Anesthesia/Blood Transfusion Reaction / Comment(s): Seizure and mini stroke following lung biopsy Date of Last Stent Placement:: 06/03/2021-CAROTID STENT Past Psychological History: No Psychological Hx Reported Smoking Status: Never smoker Past Alcohol Use History: None Reported Past Drug Use History: None Reported - Past Family History Mother Family Medical History: No Reported History Additional Family Medical History / Comment(s): Mother was healthy Father Family Medical History: Diabetes Mellitus Additional Family Medical History / Comment(s): Father of diabetes at the age of 83 yrs. Medications and Allergies Home Medications Medication Instructions Recorded Confirmed Type Simvastatin [Zocor] 40 mg PO HS 07/30/19 04/01/22 History amLODIPine [Norvasc] 10 mg PO HS 07/30/19 04/01/22 History levETIRAcetam [Keppra] 500 mg PO BID 07/30/19 04/01/22 History Metoprolol Tartrate 25 mg PO BID #60 tab 09/10/19 04/01/22 Rx Omeprazole 20 mg PO HS 07/06/20 04/01/22 History Levothyroxine Sodium [Synthroid] 25 mcg PO DAILY@0630 30 Days #30 07/08/20 04/01/22 Rx tab Rivaroxaban [Xarelto] 15 mg PO HS 01/12/21 04/01/22 History Solifenacin Succinate [Vesicare] 10 mg PO HS 01/12/21 04/01/22 History Furosemide [Lasix] 40 mg PO DAILY 06/03/21 04/01/22 History Ipratropium-Albuterol Nebulize 3 ml INHALATION RT-BID 10/14/21 04/01/22 History [Duoneb 0.5 mg-3 mg/3 ml Soln] Aspirin [Adult Low Dose Aspirin EC] 81 mg PO HS 02/27/22 04/01/22 History Ergocalciferol [Vitamin D2 (1250 1,250 mcg PO TU 02/27/22 04/01/22 History Mcg = 72615 Iu)] Insulin Aspart [NovoLOG Flexpen] See Protocol SQ AC-TID 02/27/22 04/01/22 History Insulin Degludec [Tresiba 15 units SQ HS 02/27/22 04/01/22 History Flextouch U-100 Pen] Magnesium Oxide [Mag-Ox] 400 mg PO HS 02/27/22 04/01/22 History HYDROcodone/APAP 7.5-325MG [[place] 1 tab PO BID PRN 04/01/22 04/01/22 History 7.5-325] Allergies Allergy/AdvReac Type Severity Reaction Status Date / Time No Known Allergies Allergy Verified 04/01/22 12:17 Physical Exam Osteopathic Statement: *. No significant issues noted on an osteopathic structural exam other than those noted in the History and Physical/Consult. Vitals: Vital Signs Temp Pulse Resp BP Pulse Ox 04/01/22 03:24 97.6 F 89 20 149/78 97 04/01/22 00:43 77 04/01/22 00:24 76 03/31/22 19:30 20 03/31/22 19:25 98.3 F 72 16 112/67 95 Intake and Output 03/31/22 03/31/22 04/01/22 14:59 22:59 06:59 Other: Weight 80.739 kg Constitutional: No acute distress, conversant, pleasant Eyes: Anicteric sclerae, moist conjunctiva, Pupils equal round reactive to light ENMT: NC/AT Oropharynx clear, no erythema, or exudates Neck: Supple, no masses, or JVD No carotid bruits No thyromegaly Lungs: Decreased breath sounds with expiratory wheezing Clear to percussion Normal respiratory effort, no accessory muscle use Cardiovascular: Heart regular in rate and rhythm, No murmurs, gallops, or rubs No peripheral edema Abdominal: Soft Nontender, no guarding, rebound or rigidity Abdomen moving with respiration Normoactive bowel sounds No hepatomegaly, No splenomegaly No palpable mass Skin: Normal temperature, tone, texture, turgor No induration No subcutaneous nodules No rash, lesions No ulcers Extremities: No digital cyanosis Pedal pulses weak and symmetrical capillary refill is immediate Radial pulses intact and symmetrical No calf tenderness Psychiatric: Alert and oriented to person, place and time Appropriate affect fair judgement Neuro Muscles Strength 4/5 in all 4 extremities Sensation to light touch grossly present throughout Cranial nerves II-XII grossly intact No focal sensory deficits Lymphatics: no palpable cervical or supraclavicular , or inguinal lymph nodes Results CBC & Chem 7: 03/31/22 19:31 03/31/22 19:31 Labs: Abnormal Lab Results - Last 24 Hours (Table) 03/31/22 03/31/22 03/31/22 Range/Units 19:31 19:31 19:31 RBC 4.02 L (4.30-5.90) m/uL Hgb 11.7 L (13.0-17.5) gm/dL Hct 37.8 L (39.0-53.0) % Lymphocytes # 0.8 L (1.0-4.8) k/uL PT 12.5 H (9.0-12.0) sec INR 1.2 H (<1.2) APTT 33.4 H (22.0-30.0) sec BUN 66 H (9-20) mg/dL Creatinine 3.01 H (0.66-1.25) mg/dL Glucose 111 H (74-99) mg/dL Alkaline Phosphatase 148 H (38-126) U/L Assessment and Plan Assessment: Acute COPD exacerbation Chest x-ray no acute disease Patient initiated on systemic by mouth steroids Breathing treatments as needed Azithromycin Supportive care Supplemental oxygen as needed Assessment oxygen requirement before discharge Acute kidney injury on CK D Hold nephrotoxic meds Gentle IV fluid hydration Nephrology consultation Chronic conditions Diabetes mellitus, insulin sliding scale Hypertension resume home medications History of seizure continue with Keppra Anemia of chronic disease stable Full code DVT prophylaxis on Xarelto long-term with history of DVT Anticipated length of stay more than 2 midnights
[2022-04-01 07:48] LABS: Glucose,Whole Blood 235 mg/dL (75-99)
[2022-04-01] MEDS: IPRATROPIUM-ALBUTEROL 3 ML NEB INHALATION SCH ×2 (07:51→20:05)
[2022-04-01] MEDS ORDERED: IPRATROPIUM-ALBUTEROL 3 ML NEB INHALATION SCH (08:00)
[2022-04-01] MEDS: LEVOTHYROXINE 25 MCG TAB PO SCH (08:08)
[2022-04-01] MEDS: INSULIN ASPART (NovoLOG) 100 UNIT/ML VIAL SQ SCH ×5 (08:08→21:42)
[2022-04-01] MEDS: levETIRAcetam 500 MG TAB PO SCH (08:09)
[2022-04-01] MEDS: METOPROLOL TARTRATE 25 MG TAB PO SCH ×2 (08:09→21:39)
[2022-04-01] MEDS: AZITHROMYCIN 500 MG TAB PO SCH (08:09)
[2022-04-01] MEDS: SODIUM CHLORIDE 0.9% 1,000 ML IV SCH ×2 (08:09→21:44)
[2022-04-01] MEDS ORDERED: predniSONE 20 MG TAB PO SCH (09:00)
--- NOTE | 2022-04-01 10:22 | P.NPCON ---
History of Present Illness - Reason for Consult acute renal failure - History of Present Illness Patient is a 76-year-old male with history of chronic kidney disease NKF stage IV with baseline creatinine around 1.7-2 mg/dL with a recent creatinine of 2.49 on 02/27/2022. Etiology is mostly nephrosclerosis. Patient is admitted to the hospital with complaints of cough over the past week or so. No history of fevers or chills. He denied any nausea vomiting or abdominal pain however patient did admit that he had not been eating much. Serum creatinine was 3.0 on admission. Patient reports fair urine output No recent new medications No history of use of NSAIDs Patient has an underlying history of metastatic adenocarcinoma of the lungs, COPD, type 2 diabetes. Blood pressure was not low on admission. Chest x-ray does not show any evidence of CHF. Currently being treated for acute exacerbation of COPD. Review of Systems As per HPI Past Medical History Past Medical History: Cancer, COPD, CVA/TIA, Diabetes Mellitus, Hyperlipidemia, Hypertension, Renal Disease, Seizure Disorder Additional Past Medical History / Comment(s): 07/2018 L lung cancer with left upper lobectomy., R lower lobe cancer in August 2019 and had wedge resection and immunotherapy., bronchitis, TIA and seizure after bronchoscopy in 2017, DVT L leg, IDDM type II, chronic cervical/back pain, BPH, stage III kidney disease, chronic constipation ., dysphagia with 11 # wt loss., states spot on spine L-3., states he thinks he has a sore on his tailbone., hx of carotid stenosis with stent 06/03/2021. Last Myocardial Infarction Date:: 05/24/12 History of Any Multi-Drug Resistant Organisms: None Reported Past Surgical History: Back Surgery, Cholecystectomy, Heart Catheterization, Heart Catheterization With Stent, Hernia Repair, Tonsillectomy Additional Past Surgical History / Comment(s): 2018 Bronchoscopy with bx, 2017 L upper lobectomy at [facility], August 2019 R lower lung wedge resection, low back surgery, umbilical hernia repair, bilateral cataract removals ., right transcarotid artery revasculazation with stent May 2021 Past Anesthesia/Blood Transfusion Reactions: Previous Problems w/ Anesthesia Additional Past Anesthesia/Blood Transfusion Reaction / Comment(s): Seizure and mini stroke following lung biopsy Date of Last Stent Placement:: 06/03/2021-CAROTID STENT Past Psychological History: No Psychological Hx Reported Smoking Status: Never smoker Past Alcohol Use History: None Reported Past Drug Use History: None Reported - Past Family History Mother Family Medical History: No Reported History Additional Family Medical History / Comment(s): Mother was healthy Father Family Medical History: Diabetes Mellitus Additional Family Medical History / Comment(s): Father of diabetes at the age of 83 yrs. Medications and Allergies Home Medications Medication Instructions Recorded Confirmed Type Simvastatin [Zocor] 40 mg PO HS 07/30/19 02/27/22 History amLODIPine [Norvasc] 10 mg PO HS 07/30/19 02/27/22 History levETIRAcetam [Keppra] 500 mg PO BID 07/30/19 02/27/22 History Metoprolol Tartrate 25 mg PO BID #60 tab 09/10/19 02/27/22 Rx Omeprazole 20 mg PO HS 07/06/20 02/27/22 History Levothyroxine Sodium [Synthroid] 25 mcg PO DAILY@0630 30 Days #30 07/08/20 02/27/22 Rx tab Rivaroxaban [Xarelto] 15 mg PO HS 01/12/21 02/27/22 History Solifenacin Succinate [Vesicare] 10 mg PO HS 01/12/21 02/27/22 History Furosemide [Lasix] 40 mg PO DAILY PRN 06/03/21 02/27/22 History Ipratropium-Albuterol Nebulize 3 ml INHALATION RT-BID 10/14/21 02/27/22 History [Duoneb 0.5 mg-3 mg/3 ml Soln] Aspirin [Adult Low Dose Aspirin EC] 81 mg PO HS 02/27/22 02/27/22 History Ergocalciferol [Vitamin D2 (1250 1,250 mcg PO TU 02/27/22 02/27/22 History Mcg = 92003 Iu)] Insulin Aspart [NovoLOG Flexpen] See Protocol SQ AC-TID PRN 02/27/22 02/27/22 History Insulin Degludec [Tresiba 15 units SQ HS 02/27/22 02/27/22 History Flextouch U-100 Pen] Magnesium Oxide [Mag-Ox] 400 mg PO HS 02/27/22 02/27/22 History Allergies Allergy/AdvReac Type Severity Reaction Status Date / Time No Known Allergies Allergy Verified 03/31/22 19:25 Physical Exam Vitals: Vital Signs Temp Pulse Resp BP Pulse Ox 04/01/22 08:01 84 04/01/22 07:51 84 04/01/22 07:18 97.8 F 84 20 124/69 96 04/01/22 03:24 97.6 F 89 20 149/78 97 04/01/22 00:43 77 04/01/22 00:24 76 03/31/22 19:30 20 03/31/22 19:25 98.3 F 72 16 112/67 95 Intake and Output 03/31/22 04/01/22 04/01/22 22:59 06:59 14:59 Other: Weight 80.739 kg Patient is comfortable, awake, not in any acute distress Examination of the heart S1 and S2 Examination lungs bilateral breath sounds are heard Abdomen is soft nontender Examination of lower extremity shows 1+ edema right lower extremity, no signific ant edema noted in the left lower extremity IT ASSISTANT exam is grossly intact Results - Lab Results Most recent lab results Calcium 9.1 mg/dL (8.4-10.2) 03/31/22 19:31 03/31/22 19:31 03/31/22 19:31 Assessment and Plan Assessment: 1. Acute kidney injury, prerenal currently nonoliguric. Check UA. Check ultrasound of the kidneys 2. Chronic kidney disease NKF stage IV with serum creatinine 1.7-2.1 mg/dL however recent creatinine was 2.4 in February. Etiology is nephrosclerosis UA showed trace protein previously [place] 3. COPD exacerbation 4. Hypertension with CK D 5. History of seizures maintained on Keppra Plan: Add gentle IV hydration Repeat labs in a.m. Check bladder scan and rule out urine retention Hold diuretics for now Thank you for the consultation, we'll continue to follow the patient with you during his hospitalization
[2022-04-01] MEDS ORDERED: SODIUM CHLORIDE 0.9% 1,000 ML IV SCH (10:30)
[2022-04-01] MEDS: IPRATROPIUM-ALBUTEROL 3 ML NEB INHALATION PRN ×2 (11:24→16:11)
[2022-04-01] MEDS: methylPREDNISolone SOD SUCCI 40 MG/ML 1 ML VIAL IV SCH ×2 (11:26→17:00)
[2022-04-01 12:10] LABS: Glucose,Whole Blood 417 mg/dL (75-99)
--- NOTE | 2022-04-01 13:15 | P.CNPUL ---
History of Present Illness Consult date: 04/01/22 Reason for consult: dyspnea History of present illness: This a very pleasant 75-year-old gentleman who follows with Dr. Boyer as his primary care provider. He has a history of COPD, CVA/TIA, diabetes Vasile, DVT maintained on Xarelto, hyperlipidemia, hypertension, myocardial infarction, osteoarthritis, seizure disorder. He also has a history of left lung cancer with left upper lobectomy/IV chemotherapy and also diagnosed with a right lower lobe lung cancer in 2019 status post wedge resection. He remains on Keytruda. Note that the patient's most recent PET scan from 2021 showed no evidence of any active disease with disease recurrence at this point, the patient seems to be in remission. No known metastasis to the brain. The patient was in the hospital recently for a TIA in the neuro workup was been negative. The patient comes in to the hospital for worsening shortness of breath. He had increased dyspnea cough chest tightness and wheezing. He was Hospital as for acute septic exacerbation. Chest x-ray is not showing any acute abnormalities and this was consistent with COPD. At the same time, the patient is known to have chronic kidney disease stage IV with a baseline creatinine ranging between 1.7 and 2 and the most recent creatinine was up to 2.49 and later on a creatinine on admission was up to 3.0. Nephrology consult is obtained and the patient is being gently hydrated for now. He denies having any other complaints. White cell count is at 9.4 with hemoglobin 11.7, normal coagulation profile, COVID 19 testing is been negative, influenza screen has been negative Review of Systems Constitutional: Denies chills, Denies fever Eyes: denies as per HPI, denies blurred vision, denies bulging eye, denies decreased vision, denies diplopia, denies discharge, denies dry eye, denies irritation, denies itching, denies pain, denies photophobia, denies loss of peripheral vision, denies loss of vision, denies tunnel vision/blind spots Ears: deny: decreased hearing, ear discharge, earache, tinnitus Ears, nose, mouth and throat: Reports as per HPI Breasts: absent: as per HPI, gynecomastia Cardiovascular: Reports decreased exercise tolerance, Reports dyspnea on exertion and increased dyspnea and wheeze Respiratory: Reports dyspnea Gastrointestinal: Reports as per HPI Genitourinary: Reports as per HPI Musculoskeletal: Reports as per HPI Musculoskeletal: absent: ankle pain, ankle stiffness, ankle swelling Integumentary: Reports as per HPI Neurological: Reports as per HPI Psychiatric: Reports as per HPI Endocrine: Reports as per HPI Hematologic/Lymphatic: Reports as per HPI Allergic/Immunologic: Reports as per HPI Past Medical History Past Medical History: Cancer, COPD, CVA/TIA, Diabetes Mellitus, Hyperlipidemia, Hypertension, Renal Disease, Seizure Disorder Additional Past Medical History / Comment(s): 07/2018 L lung cancer with left upper lobectomy., R lower lobe cancer in August 2019 and had wedge resection and immunotherapy., bronchitis, TIA and seizure after bronchoscopy in 2018, DVT L leg, IDDM type II, chronic cervical/back pain, BPH, stage III kidney dise ase, chronic constipation ., dysphagia with 11 # wt loss., states spot on spine L-3., states he thinks he has a sore on his tailbone., hx of carotid stenosis with stent 06/03/2021. Last Myocardial Infarction Date:: 05/24/12 History of Any Multi-Drug Resistant Organisms: None Reported Past Surgical History: Back Surgery, Cholecystectomy, Heart Catheterization, Heart Catheterization With Stent, Hernia Repair, Tonsillectomy Additional Past Surgical History / Comment(s): 2018 Bronchoscopy with bx, 2017 L upper lobectomy at [facility], August 2019 R lower lung wedge resection, low back surgery, umbilical hernia repair, bilateral cataract removals ., right transcarotid artery revasculazation with stent May 2021 Past Anesthesia/Blood Transfusion Reactions: Previous Problems w/ Anesthesia Additional Past Anesthesia/Blood Transfusion Reaction / Comment(s): Seizure and mini stroke following lung biopsy Date of Last Stent Placement:: 06/03/2021-CAROTID STENT Past Psychological History: No Psychological Hx Reported Smoking Status: Never smoker Past Alcohol Use History: None Reported Past Drug Use History: None Reported - Past Family History Mother Family Medical History: No Reported History Additional Family Medical History / Comment(s): Mother was healthy Father Family Medical History: Diabetes Mellitus Additional Family Medical History / Comment(s): Father of diabetes at the age of 83 yrs. Medications and Allergies Home Medications Medication Instructions Recorded Confirmed Type Simvastatin [Zocor] 40 mg PO HS 07/30/19 04/01/22 History amLODIPine [Norvasc] 10 mg PO HS 07/30/19 04/01/22 History levETIRAcetam [Keppra] 500 mg PO BID 07/30/19 04/01/22 History Metoprolol Tartrate 25 mg PO BID #60 tab 09/10/19 04/01/22 Rx Omeprazole 20 mg PO HS 07/06/20 04/01/22 History Levothyroxine Sodium [Synthroid] 25 mcg PO DAILY@0630 30 Days #30 07/08/20 04/01/22 Rx tab Rivaroxaban [Xarelto] 15 mg PO HS 01/12/21 04/01/22 History Solifenacin Succinate [Vesicare] 10 mg PO HS 01/12/21 04/01/22 History Furosemide [Lasix] 40 mg PO DAILY 06/03/21 04/01/22 History Ipratropium-Albuterol Nebulize 3 ml INHALATION RT-BID 10/14/21 04/01/22 History [Duoneb 0.5 mg-3 mg/3 ml Soln] Aspirin [Adult Low Dose Aspirin EC] 81 mg PO HS 02/27/22 04/01/22 History Ergocalciferol [Vitamin D2 (1250 1,250 mcg PO TU 02/27/22 04/01/22 History Mcg = 97350 Iu)] Insulin Aspart [NovoLOG Flexpen] See Protocol SQ AC-TID 02/27/22 04/01/22 History Insulin Degludec [Tresiba 15 units SQ HS 02/27/22 04/01/22 History Flextouch U-100 Pen] Magnesium Oxide [Mag-Ox] 400 mg PO HS 02/27/22 04/01/22 History HYDROcodone/APAP 7.5-325MG [[place] 1 tab PO BID PRN 04/01/22 04/01/22 History 7.5-325] Allergies Allergy/AdvReac Type Severity Reaction Status Date / Time No Known Allergies Allergy Verified 04/01/22 12:17 Physical Exam Vitals: Vital Signs Temp Pulse Resp BP Pulse Ox 04/01/22 08:01 84 04/01/22 07:51 84 04/01/22 07:18 97.8 F 84 20 124/69 96 04/01/22 03:24 97.6 F 89 20 149/78 97 04/01/22 00:43 77 04/01/22 00:24 76 03/31/22 19:30 20 03/31/22 19:25 98.3 F 72 16 112/67 95 Intake and Output 03/31/22 04/01/22 04/01/22 22:59 06:59 14:59 Other: Weight 80.739 kg GENERAL EXAM: Alert, active, comfortable in no apparent distress. The patient is currently on room air oxygen and he is not using oxygen at home. HEAD: Normocephalic. EYES: Normal reaction of pupils, equal size. NOSE: Clear with pink turbinates. THROAT: No erythema or exudates. NECK: No masses, no JVD. CHEST: No chest wall deformity. LUNGS: Equal air entry with faint bilateral end expiratory wheeze, diminished. CVS: S1 and S2 normal with no audible murmur, regular rhythm. ABDOMEN: No hepatosplenomegaly, normal bowel sounds, no guarding or rigidity. SPINE: No scoliosis or deformity SKIN: No rashes CENTRAL NERVOUS SYSTEM: No focal deficits, tone is normal in all 4 extremities. EXTREMITIES: There is no peripheral edema. No clubbing, no cyanosis. Peripheral pulses are intact. Results - Laboratory Findings CBC and BMP: 03/31/22 19:31 03/31/22 19:31 PT/INR, D-dimer PT 12.5 sec (9.0-12.0) H 03/31/22 19:31 INR 1.2 (<1.2) H 03/31/22 19:31 Abnormal lab findings: Abnormal Labs 03/31/22 03/31/22 03/31/22 19:31 19:31 19:31 RBC 4.02 L Hgb 11.7 L Hct 37.8 L Lymphocytes # 0.8 L PT 12.5 H INR 1.2 H APTT 33.4 H BUN 66 H Creatinine 3.01 H Glucose 111 H POC Glucose (mg/dL) Alkaline Phosphatase 148 H 04/01/22 07:47 RBC Hgb Hct Lymphocytes # PT INR APTT BUN Creatinine Glucose POC Glucose (mg/dL) 235 H Alkaline Phosphatase - Diagnostic Findings Chest x-ray: image reviewed Assessment and Plan Plan: 1 Acute exacerbation of chronic obstructive pulmonary disease, FEV1 value of 47% of predicted no evidence of any pneumonia at this point in time of the presentation is typical of an acute COPD exacerbation. The patient has been maintained on Symbicort on outpatient basis. He is not on home oxygen. 2 History of metastatic adenocarcinoma of the lung, currently receiving immunotherapy in the form of Keytruda. History of left upper lobe resection for non-small cell lung cancer, history of wedge resection of a pulmonary nodule in the right lung confirming metastatic disease with adenocarcinoma. The most recent PET CT that was done in March 2022 showed no evidence of any metabolic activity or ongoing disease in terms of his lung cancer 3 recent hospitalization for an acute TIA, recovered 4 acute on top of a chronic stage III kidney disease suspect secondary to diabetic nephropathy, acute decompensation could be related to prerenal factors 5 Diabetes mellitus 6 Hypertension 7 Hyperlipidemia 8 History of DVT, left lower extremity, maintained on Xarelto 9 Degenerative arthritis of the cervical spine 10 Chronic anemia Plan: Gentle hydration with IV fluids 75 mL an hour normal saline Continue bronchodilators Continued IV Solu Medrol Monitor the blood sugar and cover the patient with a sliding scale insulin coverage Symbicort maintenance on outpatient basis Continue anticoagulation with Xarelto We'll continue to follow Most recent PET/CT was noted and the patient is no evidence of any active malignancy at this point in time.
[2022-04-01 13:33] LABS: Glucose,Whole Blood 441 mg/dL (75-99)
[2022-04-01] MEDS ORDERED: INSULIN ASPART (NovoLOG) 100 UNIT/ML VIAL SQ ONE (14:07)
[2022-04-01 16:23] LABS: Glucose,Whole Blood 391 mg/dL (75-99)
[2022-04-01 20:05] LABS: Glucose,Whole Blood 362 mg/dL (75-99)
[2022-04-01] MEDS ORDERED: INSULIN DETEMIR (LEVEMIR) 100 UNIT/ML SYR SQ SCH (21:00)
[2022-04-01] MEDS: ATORVASTATIN 20 MG TAB PO SCH (21:38)
[2022-04-01] MEDS: MAGNESIUM OXIDE 400 MG TAB PO SCH (21:38)
[2022-04-01] MEDS: amLODIPine 10 MG TAB PO SCH (21:39)
[2022-04-01] MEDS: ASPIRIN 81 MG PO SCH (21:39)
[2022-04-01] MEDS: RIVAROXABAN 15 MG TAB PO SCH (21:39)
[2022-04-01] MEDS: PANTOPRAZOLE 40 MG TABLET PO SCH (21:39)
[2022-04-02] MEDS: levETIRAcetam 500 MG TAB PO SCH ×3 (00:16→21:43)
[2022-04-02] MEDS: methylPREDNISolone SOD SUCCI 40 MG/ML 1 ML VIAL IV SCH ×4 (00:16→17:47)
[2022-04-02 00:51] LABS: Glucose,Whole Blood 347 mg/dL (75-99)
[2022-04-02] MEDS ORDERED: INSULIN ASPART (NovoLOG) 100 UNIT/ML VIAL SQ ONE (01:29)
[2022-04-02] MEDS ORDERED: ASPIRIN 81 MG PO STA (04:24)
[2022-04-02 04:26] LABS: Glucose,Whole Blood 325 mg/dL (75-99)
[2022-04-02] MEDS: IPRATROPIUM-ALBUTEROL 3 ML NEB INHALATION PRN ×3 (04:38→16:20)
[2022-04-02] MEDS: LEVOTHYROXINE 25 MCG TAB PO SCH (05:29)
[2022-04-02 06:48] LABS: Glucose,Whole Blood 366 mg/dL (75-99)
[2022-04-02] MEDS: INSULIN ASPART (NovoLOG) 100 UNIT/ML VIAL SQ SCH ×7 (06:50→21:44)
[2022-04-02] MEDS: IPRATROPIUM-ALBUTEROL 3 ML NEB INHALATION SCH ×2 (09:01→20:38)
[2022-04-02] MEDS ORDERED: ACETAMINOPHEN TAB 325 MG TAB PO PRN (09:22)
[2022-04-02] MEDS: SODIUM CHLORIDE 0.9% 1,000 ML IV SCH (09:34)
[2022-04-02] MEDS: METOPROLOL TARTRATE 25 MG TAB PO SCH ×2 (09:35→21:43)
[2022-04-02] MEDS: AZITHROMYCIN 500 MG TAB PO SCH (09:36)
--- NOTE | 2022-04-02 10:30 | P.PN ---
Subjective Patient is seen for follow-up for acute kidney injury which appears to be mostly prerenal. Patient has been started on IV fluids. He was admitted with shortness of breath secondary to COPD exacerbation. Chest x-ray did not show any evidence of CHF. Patient has been voiding. The patient was transferred to telemetry due to chest pain and elevated troponin which was 0.05. Labs are pending from today. Objective - Vital Signs Vital signs: Vital Signs Temp 98.0 F 04/02/22 09:23 Pulse 88 04/02/22 09:23 Resp 18 04/02/22 09:23 BP 119/57 04/02/22 09:23 Pulse Ox 94 L 04/02/22 09:23 FiO2 Intake & Output 04/01/22 04/02/22 04/02/22 18:59 06:59 18:59 Intake Total 360 Balance 360 Weight 80.739 kg Intake: Oral 360 Other: Voiding Method Toilet # Voids 1 - Exam Patient is awake, comfortable, not in any acute distress Examination of the heart S1 and S2 Examination lungs bilateral breath sounds are heard [place] abdomen is soft nontender Examination of the lower extremities shows no evidence of edema 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 Acute kidney injury, prerenal currently nonoliguric. Check UA. Check ultrasound of the kidneys 2. Chronic kidney disease NKF stage IV with serum creatinine 1.7-2.1 mg/dL however recent creatinine was 2.4 in February. Etiology is nephrosclerosis UA showed trace protein previously 3. COPD exacerbation 4. Hypertension with CK D 5. History of seizures maintained on Keppra Plan: Continue IV hydration Repeat labs in a.m. Check bladder scan and rule out urine retention Hold diuretics for now Follow-up on labs from today
--- NOTE | 2022-04-02 11:22 | P.PN ---
Subjective Progress Note Date: 04/02/22 This a very pleasant 75-year-old gentleman who follows with Dr. Boyer as his primary care provider. He has a history of COPD, CVA/TIA, diabetes Vasile, DVT maintained on Xarelto, hyperlipidemia, hypertension, myocardial infarction, osteoarthritis, seizure disorder. He also has a history of left lung cancer with left upper lobectomy/IV chemotherapy and also diagnosed with a right lower lobe lung cancer in 2019 status post wedge resection. He remains on Keytruda. Note that the patient's most recent PET scan from 2021 showed no evidence of any active disease with disease recurrence at this point, the patient seems to be in remission. No known metastasis to the brain. The patient was in the hospital recently for a TIA in the neuro workup was been negative. The patient comes in to the hospital for worsening shortness of breath. He had increased dyspnea cough chest tightness and wheezing. He was Hospital as for acute septic exacerbation. Chest x-ray is not showing any acute abnormalities and this was consistent with COPD. At the same time, the patient is known to have chronic kidney disease stage IV with a baseline creatinine ranging between 1.7 and 2 and the most recent creatinine was up to 2.49 and later on a creatinine on admission was up to 3.0. Nephrology consult is obtained and the patient is being gently hydrated for now. He denies having any other complaints. White cell count is at 9.4 with hemoglobin 11.7, normal coagulation profile, COVID 19 testing is been negative, influenza screen has been negative On today's evaluation of 04/02/2022, the patient is slightly improved and the patient continues to bronchospastic and wheezy. He continues to BE short of [place] ath and this is significant for COPD exacerbation. As mentioned, his lung cancer is in remission for now as the patient is taking immunotherapy. At the same time, the patient has developed a component of steroid-induced hyperglycemia. Yesterday, he was started on Levemir 20 units and a sliding sc kendrick insulin coverage. Blood sugar is elevated today. He is on room air oxygen. No other complaints otherwise. No chest pain. No hemoptysis. No pleurisy. Objective - Vital Signs Vital signs: Vital Signs Temp 98.0 F 04/02/22 09:23 Pulse 88 04/02/22 09:23 Resp 18 04/02/22 09:23 BP 119/57 04/02/22 09:23 Pulse Ox 94 L 04/02/22 09:23 FiO2 Intake & Output 04/01/22 04/02/22 04/02/22 18:59 06:59 18:59 Intake Total 360 Balance 360 Weight 80.739 kg Intake: Oral 360 Other: Voiding Method Toilet # Voids 1 - Exam GENERAL EXAM: Alert, active, comfortable in no apparent distress. The patient is currently on room air oxygen and he is not using oxygen at home. HEAD: Normocephalic. EYES: Normal reaction of pupils, equal size. NOSE: Clear with pink turbinates. THROAT: No erythema or exudates. NECK: No masses, no JVD. CHEST: No chest wall deformity. LUNGS: Equal air entry with faint bilateral end expiratory wheeze, diminished. CVS: S1 and S2 normal with no audible murmur, regular rhythm. ABDOMEN: No hepatosplenomegaly, normal bowel sounds, no guarding or rigidity. SPINE: No scoliosis or deformity SKIN: No rashes CENTRAL NERVOUS SYSTEM: No focal deficits, tone is normal in all 4 extremities. EXTREMITIES: There is no peripheral edema. No clubbing, no cyanosis. Peripheral pulses are intact. - Labs CBC & Chem 7: 03/31/22 19:31 03/31/22 19:31 Labs: Abnormal Lab Results - Last 24 Hours (Table) 04/01/22 04/01/22 04/01/22 Range/Units 12:09 13:31 16:22 POC Glucose (mg/dL) 417 H 441 H 391 H (75-99) mg/dL Troponin I (0.000-0.034) ng/mL 04/01/22 04/02/22 04/02/22 Range/Units 20:03 00:48 04:24 POC Glucose (mg/dL) 362 H 347 H 325 H (75-99) mg/dL Troponin I (0.000-0.034) ng/mL 04/02/22 04/02/22 04/02/22 Range/Units 04:27 06:46 06:54 POC Glucose (mg/dL) 366 H (75-99) mg/dL Troponin I 0.045 H* 0.050 H* (0.000-0.034) ng/mL Assessment and Plan Plan: 1 Acute exacerbation of chronic obstructive pulmonary disease, FEV1 value of 47% of predicted no evidence of any pneumonia at this point in time of the presentation is typical of an acute COPD exacerbation. The patient has been maintained on Symbicort on outpatient basis. He is not on home oxygen. 2 History of metastatic adenocarcinoma of the lung, currently receiving immuno therapy in the form of Keytruda. History of left upper lobe resection for non- small cell lung cancer, history of wedge resection of a pulmonary nodule in the right lung confirming metastatic disease with adenocarcinoma. The most recent PET CT that was done in March 2022 showed no evidence of any metabolic activity or ongoing disease in terms of his lung cancer 3 recent hospitalization for an acute TIA, recovered 4 acute on top of a chronic stage III kidney disease suspect secondary to diabetic nephropathy, acute decompensation could be related to prerenal factors 5 Diabetes mellitus, the patient is a component of steroid-induced hyperglycemia 6 Hypertension 7 Hyperlipidemia 8 History of DVT, left lower extremity, maintained on Xarelto 9 Degenerative arthritis of the cervical spine 10 Chronic anemia Plan: Gentle hydration with IV fluids 75 mL an hour normal saline, awaiting repeat labs and his renal function is improving we'll gradually wean down the maintenance IV fluids. Change IV fluids to KVO Continue bronchodilators Continued IV Solu Medrol, 40 mg IV every 6 hours Continue the Levemir insulin up to 30 units and off for 10 units of NovoLog with meals and a sliding scale coverage Monitor the blood sugar and cover the patient with a sliding scale insulin coverage Symbicort maintenance on outpatient basis Continue anticoagulation with Xarelto We'll continue to follow Most recent PET/CT was noted and the patient is no evidence of any active malignancy at this point in time. Clinically slightly improved we'll continue we'll continue to follow
[2022-04-02 11:43] LABS: Glucose,Whole Blood 422 mg/dL (75-99)
[2022-04-02 12:00] LABS: Glucose,Whole Blood 434 mg/dL (75-99)
[2022-04-02 12:03] LABS: Calcium 8.5 mg/dL (8.4-10.2); Potassium 4.6 mmol/L (3.5-5.1)
--- NOTE | 2022-04-02 14:03 | P.PN ---
Subjective Progress Note Date: 04/02/22 Acute COPD exacerbation Chest x-ray no acute disease Patient initiated on systemic by mouth steroids Breathing treatments as needed Azithromycin Supportive care Supplemental oxygen as needed Assessment oxygen requirement before discharge Acute kidney injury on CK D Hold nephrotoxic meds Gentle IV fluid hydration Nephrology consultation Chronic conditions Diabetes mellitus, insulin sliding scale Hypertension resume home medications History of seizure continue with Keppra Anemia of chronic disease stable Full code DVT prophylaxis on Xarelto long-term with history of DVT Objective - Vital Signs Vital signs: Vital Signs Temp 98.0 F 04/02/22 09:23 Pulse 84 04/02/22 12:48 Resp 18 04/02/22 12:37 BP 128/61 04/02/22 12:37 Pulse Ox 96 04/02/22 12:37 FiO2 Intake & Output 04/01/22 04/02/22 04/02/22 18:59 06:59 18:59 Intake Total 360 Balance 360 Weight 80.739 kg Intake: Oral 360 Other: Voiding Method Toilet Toilet # Voids 1 - Labs CBC & Chem 7: 03/31/22 19:31 04/02/22 11:06 Labs: Abnormal Lab Results - Last 24 Hours (Table) 04/01/22 04/01/22 04/02/22 Range/Units 16:22 20:03 00:48 Sodium (137-145) mmol/L Carbon Dioxide (22-30) mmol/L BUN (9-20) mg/dL Creatinine (0.66-1.25) mg/dL Glucose (74-99) mg/dL POC Glucose (mg/dL) 391 H 362 H 347 H (75-99) mg/dL Troponin I (0.000-0.034) ng/mL 04/02/22 04/02/22 04/02/22 Range/Units 04:24 04:27 06:46 Sodium (137-145) mmol/L Carbon Dioxide (22-30) mmol/L BUN (9-20) mg/dL Creatinine (0.66-1.25) mg/dL Glucose (74-99) mg/dL POC Glucose (mg/dL) 325 H 366 H (75-99) mg/dL Troponin I 0.045 H* (0.000-0.034) ng/mL 04/02/22 04/02/22 04/02/22 Range/Units 06:54 11:06 11:06 Sodium 134 L (137-145) mmol/L Carbon Dioxide 20 L (22-30) mmol/L BUN 78 H (9-20) mg/dL Creatinine 2.92 H (0.66-1.25) mg/dL Glucose 391 H (74-99) mg/dL POC Glucose (mg/dL) (75-99) mg/dL Troponin I 0.050 H* 0.047 H* (0.000-0.034) ng/mL 04/02/22 04/02/22 Range/Units 11:42 11:59 Sodium (137-145) mmol/L Carbon Dioxide (22-30) mmol/L BUN (9-20) mg/dL Creatinine (0.66-1.25) mg/dL Glucose (74-99) mg/dL POC Glucose (mg/dL) 422 H 434 H (75-99) mg/dL Troponin I (0.000-0.034) ng/mL
[2022-04-02 16:47] LABS: Glucose,Whole Blood 440 mg/dL (75-99)
[2022-04-02] MEDS: TAMSULOSIN 0.4 MG CAP.ER.24H PO SCH (17:54)
[2022-04-02] MEDS ORDERED: INSULIN DETEMIR (LEVEMIR) 100 UNIT/ML SYR SQ SCH (21:00)
[2022-04-02 21:17] LABS: Glucose,Whole Blood 412 mg/dL (75-99)
[2022-04-02] MEDS: RIVAROXABAN 15 MG TAB PO SCH (21:43)
[2022-04-02] MEDS: ASPIRIN 81 MG PO SCH (21:43)
[2022-04-02] MEDS: ATORVASTATIN 20 MG TAB PO SCH (21:43)
[2022-04-02] MEDS: MAGNESIUM OXIDE 400 MG TAB PO SCH (21:43)
[2022-04-02] MEDS: amLODIPine 10 MG TAB PO SCH (21:43)
[2022-04-02] MEDS: PANTOPRAZOLE 40 MG TABLET PO SCH (21:43)
[2022-04-03] MEDS: SODIUM CHLORIDE 0.9% 1,000 ML IV SCH (00:01)
[2022-04-03] MEDS: IPRATROPIUM-ALBUTEROL 3 ML NEB INHALATION PRN ×3 (03:52→15:53)
[2022-04-03 06:23] LABS: Glucose,Whole Blood 305 mg/dL (75-99)
[2022-04-03] MEDS: methylPREDNISolone SOD SUCCI 40 MG/ML 1 ML VIAL IV SCH ×2 (07:13)
[2022-04-03] MEDS: INSULIN ASPART (NovoLOG) 100 UNIT/ML VIAL SQ SCH ×8 (07:14→20:55)
[2022-04-03] MEDS: LEVOTHYROXINE 25 MCG TAB PO SCH (07:17)
[2022-04-03] MEDS: IPRATROPIUM-ALBUTEROL 3 ML NEB INHALATION SCH ×2 (07:48→20:46)
[2022-04-03] MEDS: AZITHROMYCIN 500 MG TAB PO SCH (08:12)
[2022-04-03] MEDS: METOPROLOL TARTRATE 25 MG TAB PO SCH ×2 (08:12→20:54)
[2022-04-03] MEDS: TAMSULOSIN 0.4 MG CAP.ER.24H PO SCH (08:12)
[2022-04-03] MEDS: levETIRAcetam 500 MG TAB PO SCH ×2 (08:13→20:54)
[2022-04-03] MEDS ORDERED: FUROSEMIDE 10 MG/ML 10 ML VIAL IV STA (09:56)
--- NOTE | 2022-04-03 10:12 | P.PN ---
Subjective Patient is seen for follow-up for acute kidney injury which appears to be mostly prerenal. Patient has been started on IV fluids. He was admitted with shortness of breath secondary to COPD exacerbation. Chest x-ray did not show any evidence of CHF. Patient has been voiding. The patient was transferred to telemetry due to chest pain and elevated troponin which was 0.05. Patient is complaining of shortness of breath today. He is maintained on IV fluids. Objective - Vital Signs Vital signs: Vital Signs Temp 97.6 F 04/03/22 08:00 Pulse 90 04/03/22 08:04 Resp 19 04/03/22 08:00 BP 127/58 04/03/22 08:00 Pulse Ox 95 04/03/22 08:00 FiO2 Intake & Output 04/02/22 04/03/22 04/03/22 18:59 06:59 18:59 Intake Total 1200 240 Output Total 250 300 275 Balance 950 -300 -35 Intake: Intake, IV Titration 600 Amount Sodium Chloride 0.9% 1, 600 000 ml @ 75 mls/hr IV . 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 - Labs CBC & Chem 7: 03/31/22 19:31 04/02/22 11:06 Labs: Abnormal Lab Results - Last 24 Hours (Table) 04/02/22 04/02/22 04/02/22 Range/Units 11:06 11:06 11:42 Sodium 134 L (137-145) mmol/L Carbon Dioxide 20 L (22-30) mmol/L BUN 78 H (9-20) mg/dL Creatinine 2.92 H (0.66-1.25) mg/dL Glucose 391 H (74-99) mg/dL POC Glucose (mg/dL) 422 H (75-99) mg/dL Troponin I 0.047 H* (0.000-0.034) ng/mL 04/02/22 04/02/22 04/02/22 Range/Units 11:59 16:45 21:14 Sodium (137-145) mmol/L Carbon Dioxide (22-30) mmol/L BUN (9-20) mg/dL Creatinine (0.66-1.25) mg/dL Glucose (74-99) mg/dL POC Glucose (mg/dL) 434 H 440 H 412 H (75-99) mg/dL Troponin I (0.000-0.034) ng/mL 04/03/22 Range/Units 06:20 Sodium (137-145) mmol/L Carbon Dioxide (22-30) mmol/L BUN (9-20) mg/dL Creatinine (0.66-1.25) mg/dL Glucose (74-99) mg/dL POC Glucose (mg/dL) 305 H (75-99) mg/dL Troponin I (0.000-0.034) ng/mL Assessment and Plan Assessment: 1. Acute kidney injury, prerenal currently nonoliguric. Check UA. Check ultrasound of the kidneys 2. Chronic kidney disease NKF stage IV with serum creatinine 1.7-2.1 mg/dL however recent creatinine was 2.4 in February. Etiology is nephrosclerosis UA showed trace protein previously 3. COPD exacerbation 4. Hypertension with CK D 5. History of seizures maintained on Keppra 6. Volume overload which is new Plan: DC IV fluids IV Lasix 1 Check chest x-ray Check labs
[2022-04-03] MEDS: methylPREDNISolone SOD SUCCI 125 MG/2 ML VIAL IV SCH ×3 (10:27→20:55)
[2022-04-03] MEDS ORDERED: INSULIN DETEMIR (LEVEMIR) 100 UNIT/ML SYR SQ SCH (10:30)
--- NOTE | 2022-04-03 10:59 | XR ---
EXAMINATION TYPE: XR chest 1V DATE OF EXAM: 04/03/2022 COMPARISON: 03/31/2022 INDICATION: CHF TECHNIQUE: Single frontal view of the chest is obtained. FINDINGS: The heart size is normal. The pulmonary vasculature is normal. Minimal atelectasis may be along the left diaphragm. This is stable. IMPRESSION: 1. No suspicious infiltrates evident. Very minimal left basilar atelectasis may be present.
[2022-04-03 11:20] LABS: Glucose,Whole Blood 341 mg/dL (75-99)
[2022-04-03] MEDS: BUDESONIDE 0.5 MG/2 ML NEBU INHALATION SCH ×2 (11:20→20:46)
[2022-04-03] MEDS: FORMOTEROL FUMARATE 20 MCG/2 ML NEBU INHALATION SCH ×2 (11:20→20:46)
--- NOTE | 2022-04-03 11:21 | P.PN ---
Subjective Progress Note Date: 04/03/22 This a very pleasant 75-year-old gentleman who follows with Dr. Boyer as his primary care provider. He has a history of COPD, CVA/TIA, diabetes Vasile, DVT maintained on Xarelto, hyperlipidemia, hypertension, myocardial infarction, osteoarthritis, seizure disorder. He also has a history of left lung cancer with left upper lobectomy/IV chemotherapy and also diagnosed with a right lower lobe lung cancer in 2019 status post wedge resection. He remains on Keytruda. Note that the patient's most recent PET scan from 2021 showed no evidence of any active disease with disease recurrence at this point, the patient seems to be in remission. No known metastasis to the brain. The patient was in the hospital recently for a TIA in the neuro workup was been negative. The patient comes in to the hospital for worsening shortness of breath. He had increased dyspnea cough chest tightness and wheezing. He was Hospital as for acute septic exacerbation. Chest x-ray is not showing any acute abnormalities and this was consistent with COPD. At the same time, the patient is known to have chronic kidney disease stage IV with a baseline creatinine ranging between 1.7 and 2 and the most recent creatinine was up to 2.49 and later on a creatinine on admission was up to 3.0. Nephrology consult is obtained and the patient is being gently hydrated for now. He denies having any other complaints. White cell count is at 9.4 with hemoglobin 11.7, normal coagulation profile, COVID 19 testing is been negative, influenza screen has been negative On today's evaluation of 04/02/2022, the patient is slightly improved and the patient continues to bronchospastic and wheezy. He continues to BE short of [place] ath and this is significant for COPD exacerbation. As mentioned, his lung cancer is in remission for now as the patient is taking immunotherapy. At the same time, the patient has developed a component of steroid-induced hyperglycemia. Yesterday, he was started on Levemir 20 units and a sliding sc kendrick insulin coverage. Blood sugar is elevated today. He is on room air oxygen. No other complaints otherwise. No chest pain. No hemoptysis. No pleurisy. 04/03/2022, the patient is having more difficulties in breathing and is more bronchospastic and wheezy. Blood sugar remains elevated at the patient's current insulin Medrol 40 mg every 8 hours. He is also receiving DuoNeb neb treatments around the clock. No chest pain. No angina. No palpitations. No other complaints. IV fluids are in the form of normal saline at the rate of 75 mL an hour. Repeat labs from today are still pending. Creatinine from yesterday was at 2.9. Blood sugar from today's at 305. The patient himself remains on room air oxygen. Objective - Vital Signs Vital signs: Vital Signs Temp 97.6 F 04/03/22 08:00 Pulse 90 04/03/22 08:04 Resp 19 04/03/22 08:00 BP 127/58 04/03/22 08:00 Pulse Ox 95 04/03/22 08:00 FiO2 Intake & Output 04/02/22 04/03/22 04/03/22 18:59 06:59 18:59 Intake Total 1200 240 Output Total 250 300 275 Balance 950 -300 -35 Intake: Intake, IV Titration 600 Amount Sodium Chloride 0.9% 1, 600 000 ml @ 75 mls/hr IV . [id number] [facility] Rx#:[id number] Oral 600 240 Output: Urine 250 300 275 Other: Voiding Method Toilet Toilet Urinal - Exam GENERAL EXAM: Alert, active, comfortable in no apparent distress. The patient is currently on room air oxygen and he is not using oxygen at home. HEAD: Normocephalic. EYES: Normal reaction of pupils, equal size. NOSE: Clear with pink turbinates. THROAT: No erythema or exudates. NECK: No masses, no JVD. CHEST: No chest wall deformity. LUNGS: Equal air entry with faint bilateral end expiratory wheeze, diminished. CVS: S1 and S2 normal with no audible murmur, regular rhythm. ABDOMEN: No hepatosplenomegaly, normal bowel sounds, no guarding or rigidity. SPINE: No scoliosis or deformity SKIN: No rashes CENTRAL NERVOUS SYSTEM: No focal deficits, tone is normal in all 4 extremities. EXTREMITIES: There is no peripheral edema. No clubbing, no cyanosis. Peripheral pulses are intact. - Labs CBC & Chem 7: 03/31/22 19:31 04/02/22 11:06 Labs: Abnormal Lab Results - Last 24 Hours (Table) 04/02/22 04/02/22 04/02/22 Range/Units 11:06 11:06 11:42 Sodium 134 L (137-145) mmol/L Carbon Dioxide 20 L (22-30) mmol/L BUN 78 H (9-20) mg/dL Creatinine 2.92 H (0.66-1.25) mg/dL Glucose 391 H (74-99) mg/dL POC Glucose (mg/dL) 422 H (75-99) mg/dL Troponin I 0.047 H* (0.000-0.034) ng/mL 04/02/22 04/02/22 04/02/22 Range/Units 11:59 16:45 21:14 Sodium (137-145) mmol/L Carbon Dioxide (22-30) mmol/L BUN (9-20) mg/dL Creatinine (0.66-1.25) mg/dL Glucose (74-99) mg/dL POC Glucose (mg/dL) 434 H 440 H 412 H (75-99) mg/dL Troponin I (0.000-0.034) ng/mL 04/03/22 Range/Units 06:20 Sodium (137-145) mmol/L Carbon Dioxide (22-30) mmol/L BUN (9-20) mg/dL Creatinine (0.66-1.25) mg/dL Glucose (74-99) mg/dL POC Glucose (mg/dL) 305 H (75-99) mg/dL Troponin I (0.000-0.034) ng/mL Assessment and Plan Plan: 1 Acute exacerbation of chronic obstructive pulmonary disease, FEV1 value of 47% of predicted no evidence of any pneumonia at this point in time of the presentation is typical of an acute COPD exacerbation. The patient has been maintained on Symbicort on outpatient basis. He is not on home oxygen. On today's evaluation, he still bronchospastic and wheezy, slightly worse compared to yesterday. 2 History of metastatic adenocarcinoma of the lung, currently receiving immunot herapy in the form of Keytruda. History of left upper lobe resection for non- small cell lung cancer, history of wedge resection of a pulmonary nodule in the right lung confirming metastatic disease with adenocarcinoma. The most recent PET CT that was done in March 2022 showed no evidence of any metabolic activity or ongoing disease in terms of his lung cancer 3 recent hospitalization for an acute TIA, recovered 4 acute on top of a chronic stage III kidney disease suspect secondary to diabetic nephropathy, acute decompensation could be related to prerenal factors 5 Diabetes mellitus, the patient is a component of steroid-induced hyperglycemia 6 Hypertension 7 Hyperlipidemia 8 History of DVT, left lower extremity, maintained on Xarelto 9 Degenerative arthritis of the cervical spine 10 Chronic anemia Plan: Discontinue the IV fluids Put the patient on insulin Medrol 60 mg every 6 hours History the dose of Levemir to 45 units along with 10 units of NovoLog with meals and a sliding scale coverage Give the patient dose of Lasix 60 mg IV push Continue DuoNeb nebulized treatment [id number] Add Perforomist and Pulmicort neb last 2 minutes twice a day Continue anticoagulation with Xarelto We'll continue to follow Most recent PET/CT was noted and the patient is no evidence of any active malignancy at this point in time. Clinically slightly improved we'll continue we'll continue to follow
[2022-04-03] MEDS ORDERED: HYDROcodone/APAP 7.5-325MG 1 EACH TAB PO PRN (11:59)
--- NOTE | 2022-04-03 12:02 | P.CRDCN ---
History of Present Illness History of present illness: HISTORY OF PRESENTING ILLNESS Patient is pleasant 75-year-old male with history of COPD, stroke, diabetes mellitus, DVT on Xarelto, hyperlipidemia, chronic kidney disease, hypertension, coronary artery disease, seizure disorder and lung cancer status post lobectomy as well as recurrent right lung cancer with bone resection on uda who presents secondary to worsening shortness breath. Patient was actually admitted 03/31 with COPD exacerbation and then developed some chest tightness feeling yesterday. Therefore repeat troponins were drawn with initial 0.02 from 03/31 however on 04/02 0.04, 0.05, 0.04. Repeat EKG from 04/[address] depressions in inferior leads. He does have prior heart catheterization from which shows CT of the RCA obstructive disease of a small caliber obtuse marginal 2, moderate disease of the circumflex and moderate disease of the LAD however FFR normal. He does also admit to approximately 30 pound weight loss over last 3 weeks which has been unintentional. He denies any further chest pain and believes it may have been heartburn related. REVIEW OF SYSTEMS At the time of my exam: CONSTITUTIONAL: Denies fever or chills. CARDIOVASCULAR: +chest pain, +shortness of breath, no orthopnea, PND or palpitations. RESPIRATORY: Denies cough. GASTROINTESTINAL: Denies abdominal pain, diarrhea, constipation, nausea or vomiting. MUSCULOSKELETAL: Denies myalgias. NEUROLOGIC: Denies numbness, tingling or weakness. ENDOCRINE: Denies fatigue, +weight change, no polydipsia or polyurina. GENITOURINARY: Denies burning, hematuria or urgency with micturation. HEMATOLOGIC: Denies history of anemia or bleeding. PHYSICAL EXAMINATION Vital signs reviewed. CONSTITUTIONAL: No apparent distress. HEENT: Head is normocephalic. Pupils are equal, round. Sclerae anicteric. Mucous membranes of the mouth are moist. No JVD. No carotid bruit. CHEST EXAMINATION: Lungs are clear to auscultation. No chest wall tenderness is noted on palpation or with deep breathing. HEART EXAMINATION: Regular rate and rhythm. S1, S2 heard. No murmurs, gallops or rub. ABDOMEN: Soft, nontender. Positive bowel sounds. EXTREMITIES: 2+ peripheral pulses, no lower extremity edema and no calf tenderness. NEUROLOGIC EXAMINATION: Patient is awake, alert and oriented x3. ASSESSMENT 1. Acute on chronic respiratory failure appears to be mainly related to COPD exacerbation 2. Mildly elevated troponins with atypical chest pain do not suspect acute umm nary syndrome. Suspect related to chronic kidney disease, hypoxia 3. Chronic kidney disease, worsening the last few months 4. Recent 30 pound weight loss in last 3 weeks per patient 5. Lung cancer on Keytruda 6. 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 Hypertension 8. History of DVT on Xarelto PLAN Patient's main presentation appears consistent with COPD exacerbation and has been treated for this for the last 3 days with some improvement. Onset of chest pain appears somewhat atypical with minimally elevated troponins and no significant change on EKG. We will check 2-D echo for any change in left ventricular function. He apparently has had 30 pound weight loss. Continue with medical therapy for antianginals and not a good interventional candidate given chronic kidney disease. Further recommendations to follow. Past Medical History Past Medical History: Cancer, COPD, CVA/TIA, Diabetes Mellitus, Hyperlipidemia, Hypertension, Renal Disease, Seizure Disorder Additional Past Medical History / Comment(s): 07/2018 L lung cancer with left u pper lobectomy., R lower lobe cancer in August 2019 and had wedge resection and immunotherapy., bronchitis, TIA and seizure after bronchoscopy in 2017, DVT L leg, IDDM type II, chronic cervical/back pain, BPH, stage III kidney disease, chronic constipation ., dysphagia with 11 # wt loss., states spot on spine L-3., states he thinks he has a sore on his tailbone., hx of carotid stenosis with phoebe nt 06/03/2021. Last Myocardial Infarction Date:: 05/24/12 History of Any Multi-Drug Resistant Organisms: None Reported Past Surgical History: Back Surgery, Cholecystectomy, Heart Catheterization, Heart Catheterization With Stent, Hernia Repair, Tonsillectomy Additional Past Surgical History / Comment(s): 2018 Bronchoscopy with bx, 2017 L upper lobectomy at [facility], August 2019 R lower lung wedge resection, low back surgery, umbilical hernia repair, bilateral cataract removals ., right transcarotid artery revasculazation with stent May 2021 Past Anesthesia/Blood Transfusion Reactions: Previous Problems w/ Anesthesia Additional Past Anesthesia/Blood Transfusion Reaction / Comment(s): Seizure and mini stroke following lung biopsy Date of Last Stent Placement:: 06/03/2021-CAROTID STENT Past Psychological History: No Psychological Hx Reported Smoking Status: Never smoker Past Alcohol Use History: None Reported Past Drug Use History: None Reported - Past Family History Mother Family Medical History: No Reported History Additional Family Medical History / Comment(s): Mother was healthy Father Family Medical History: Diabetes Mellitus Additional Family Medical History / Comment(s): Father of diabetes at the age of 83 yrs. Medications and Allergies Home Medications Medication Instructions Recorded Confirmed Type Simvastatin [Zocor] 40 mg PO HS 07/30/19 04/01/22 History amLODIPine [Norvasc] 10 mg PO HS 07/30/19 04/01/22 History levETIRAcetam [Keppra] 500 mg PO BID 07/30/19 04/01/22 History Metoprolol Tartrate 25 mg PO BID #60 tab 09/10/19 04/01/22 Rx Omeprazole 20 mg PO HS 07/06/20 04/01/22 History Levothyroxine Sodium [Synthroid] 25 mcg PO DAILY@0630 30 Days #30 07/08/20 04/01/22 Rx tab Rivaroxaban [Xarelto] 15 mg PO HS 01/12/21 04/01/22 History Solifenacin Succinate [Vesicare] 10 mg PO HS 01/12/21 04/01/22 History Furosemide [Lasix] 40 mg PO DAILY 06/03/21 04/01/22 History Ipratropium-Albuterol Nebulize 3 ml INHALATION RT-BID 10/14/21 04/01/22 History [Duoneb 0.5 mg-3 mg/3 ml Soln] Aspirin [Adult Low Dose Aspirin EC] 81 mg PO HS 02/27/22 04/01/22 History Ergocalciferol [Vitamin D2 (1250 1,250 mcg PO TU 02/27/22 04/01/22 History Mcg = 11133 Iu)] Insulin Aspart [NovoLOG Flexpen] See Protocol SQ AC-TID 02/27/22 04/01/22 History Insulin Degludec [Tresiba 15 units SQ HS 02/27/22 04/01/22 History Flextouch U-100 Pen] Magnesium Oxide [Mag-Ox] 400 mg PO HS 02/27/22 04/01/22 History HYDROcodone/APAP 7.5-325MG [[place] 1 tab PO BID PRN 04/01/22 04/01/22 History 7.5-325] Allergies Allergy/AdvReac Type Severity Reaction Status Date / Time No Known Allergies Allergy Verified 04/01/22 12:17 Physical Exam Vitals: Vital Signs Temp Pulse Pulse Resp BP Pulse Ox 04/03/22 11:31 82 04/03/22 11:20 86 04/03/22 08:04 90 04/03/22 08:00 97.6 F 89 19 127/58 95 04/03/22 07:51 86 97 04/03/22 04:00 98.5 F 80 85 18 131/62 94 L 04/03/22 03:52 82 04/03/22 02:00 94 04/03/22 00:00 98.5 F 94 18 116/60 94 L 04/02/22 20:46 85 04/02/22 20:38 88 95 04/02/22 20:00 97.1 F L 85 18 131/62 96 04/02/22 17:50 85 18 123/62 94 L 04/02/22 16:32 88 04/02/22 16:20 88 04/02/22 12:48 84 04/02/22 12:37 80 81 18 128/61 96 Intake and Output 04/02/22 04/03/22 04/03/22 22:59 06:59 14:59 Intake Total 240 240 Output Total 300 550 Balance -60 -310 Intake: Oral 240 240 Output: Urine 300 550 Other: Voiding Method Toilet Toilet Urinal Urinal Results 03/31/22 19:31 04/02/22 11:06 Cardiac Enzymes 04/02/22 Range/Units 11:06 Troponin I 0.047 H* (0.000-0.034) ng/mL Comprehensive Metabolic Panel 04/02/22 Range/Units 11:06 Sodium 134 L (137-145) mmol/L Potassium 4.6 (3.5-5.1) mmol/L Chloride 104 (98-107) mmol/L Carbon Dioxide 20 L (22-30) mmol/L BUN 78 H (9-20) mg/dL Creatinine 2.92 H (0.66-1.25) mg/dL Glucose 391 H (74-99) mg/dL Calcium 8.5 (8.4-10.2) mg/dL Current Medications Generic Name Dose Route Start Last Admin Trade Name Freq PRN Reason Stop Dose Admin Acetaminophen 650 mg 04/02/22 09:22 04/02/22 09:35 Acetaminophen Tab 325 Mg Tab PO 650 mg Q4HR PRN Administration Fever and/ or Pain Albuterol/Ipratropium 3 ml 04/01/22 08:00 04/03/22 07:48 Ipratropium-Albuterol 3 Ml Neb INHALATION 3 ml RT-BID NI Administration Albuterol/Ipratropium 3 ml 04/01/22 02:45 04/03/22 11:18 Ipratropium-Albuterol 3 Ml Neb INHALATION 3 ml RT-QID PRN Administration Shortness Of Breath Or Wheezing Amlodipine Besylate 10 mg 04/01/22 21:00 04/02/22 21:43 Amlodipine 10 Mg Tab PO 10 mg HS NI Administration Aspirin 81 mg 04/01/22 21:00 04/02/22 21:43 Aspirin 81 Mg PO 81 mg HS NI Administration Atorvastatin Calcium 20 mg 04/01/22 21:00 04/02/22 21:43 Atorvastatin 20 Mg Tab PO 20 mg HS NI Administration Budesonide 0.5 mg 04/03/22 10:32 04/03/22 11:20 Budesonide 0.5 Mg/2 Ml Nebu INHALATION Not Given RT-BID [facility] Formoterol Fumarate 20 mcg 04/03/22 10:45 04/03/22 11:20 Formoterol Fumarate 20 Mcg/2 Ml Nebu INHALATION Not Given RT-BID [facility] Sodium Chloride 1,000 mls @ 10 mls/hr 04/01/22 07:00 04/03/22 00:01 Saline 0.9% IV 75 mls/hr .Q24H NI Administration Insulin Aspart 0 unit 04/01/22 07:30 04/03/22 07:14 Insulin Aspart (Novolog) 100 Unit/Ml Vial SQ 8 unit ACHS NI Administration Protocol Insulin Aspart 10 unit 04/02/22 12:30 04/03/22 07:14 Insulin Aspart (Novolog) 100 Unit/Ml Vial SQ 10 unit ACHS NI Administration Insulin Detemir 45 unit 04/03/22 10:30 04/03/22 10:27 Insulin Detemir (Levemir) 100 Unit/Ml Syr SQ 45 unit DAILY@0700 NI Administration Levetiracetam 500 mg 04/01/22 09:00 04/03/22 08:13 Levetiracetam 500 Mg Tab PO 500 mg BID NI Administration Levothyroxine Sodium 25 mcg 04/01/22 06:30 04/03/22 07:17 Levothyroxine 25 Mcg Tab PO 25 mcg DAILY@0630 NI Administration Magnesium Oxide 400 mg 04/01/22 21:00 04/02/22 21:43 Magnesium Oxide 400 Mg Tab PO 400 mg HS NI Administration Methylprednisolone Sodium Succinate 60 mg 04/03/22 10:00 04/03/22 10:27 Methylprednisolone Sod Succi 125 Mg/2 Ml Vial IV 60 mg Q6H NI Administration Metoprolol Tartrate 25 mg 04/01/22 09:00 04/03/22 08:12 Metoprolol Tartrate 25 Mg Tab PO 25 mg BID NI Administration Pantoprazole Sodium 40 mg 04/01/22 21:00 04/02/22 21:43 Pantoprazole 40 Mg Tablet PO 40 mg HS [facility] Administration Rivaroxaban 15 mg 04/01/22 21:00 04/02/22 21:43 Rivaroxaban 15 Mg Tab PO 15 mg HS NI Administration Protocol Tamsulosin HCl 0.4 mg 04/02/22 17:45 04/03/22 08:12 Tamsulosin 0.4 Mg Cap.Er.24h PO 0.4 mg [id number] [facility] Administration Intake and Output 04/02/22 04/03/22 04/03/22 22:59 06:59 14:59 Intake Total 240 240 Output Total 300 550 Balance -60 -310 Intake: Oral 240 240 Output: Urine 300 550 Other: Voiding Method Toilet Toilet Urinal Urinal 03/31/22 19:31 04/02/22 11:06
--- NOTE | 2022-04-03 12:14 | US ---
EXAMINATION TYPE: US kidneys/renal and bladder DATE OF EXAM: 04/03/2022 COMPARISON: US 04/28/2021, CT CLINICAL HISTORY: HERMELINDO. HERMELINDO. Hx lung cancer. EXAM MEASUREMENTS: Right Kidney: 10.6 x 5.8 x 6.3 cm Left Kidney: 10.3 x 4.7 x 5.2 cm Right Kidney: Anechoic area seen lower pole= 1.0 x 0.8 x 1.3 cm. Left Kidney: Anechoic area seen lower pole= 1.9 x 1.8 x 1.7 cm. Bladder: Appears anechoic. Wall measures 0.63 cm, appears thickened. Bilateral Jets seen: Yes Urinary bladder wall thickening is not excluded. IMPRESSION: 1. Bilateral simple appearing renal cysts. 2. There may be some urinary bladder wall. 3. Exam appears stable from comparison.
[2022-04-03] MEDS ORDERED: INSULIN DETEMIR (LEVEMIR) 100 UNIT/ML SYR SQ ONE (12:30)
[2022-04-03 14:44] VITALS: BMI 23.5
--- NOTE | 2022-04-03 16:08 | P.PN ---
Subjective Progress Note Date: 04/03/22 No new complaints today. Still wheezing significantly on auscultation. Gen: awake, alert HEENT: normocephalic, atraumatic, good hearing acuity, moist mucous membranes Resp: good air exchange, breathing comfortably with no accessory muscle use, diffuse end expiratory wheezing CVS: good distal perfusion x 4, GI: soft, NTTP, ND : no SPT, no CVAT, karimi catheter not present MSK: no pitting edema, no clubbing Neuro: non-focal, moving all extremities Psych: cooperative, euthymic mood Assessment/plan: Acute COPD exacerbation Chest x-ray no acute disease Patient initiated on systemic by mouth steroids Breathing treatments as needed Azithromycin Supportive care Supplemental oxygen as needed Assessment oxygen requirement before discharge Acute kidney injury on CK D Hold nephrotoxic meds Gentle IV fluid hydration Nephrology consultation Chronic conditions Diabetes mellitus, insulin sliding scale Hypertension resume home medications History of seizure continue with Keppra Anemia of chronic disease stable Full code DVT prophylaxis on Xarelto long-term with history of DVT Objective - Vital Signs Vital signs: Vital Signs Temp 97.6 F 04/03/22 08:00 Pulse 86 04/03/22 16:06 Resp 18 04/03/22 12:00 BP 134/65 04/03/22 12:00 Pulse Ox 95 04/03/22 12:00 FiO2 Intake & Output 04/02/22 04/03/22 04/03/22 18:59 06:59 18:59 Intake Total 1200 480 Output Total 250 300 725 Balance 950 -300 -245 Weight 80.739 kg Intake: Intake, IV Titration 600 Amount Sodium Chloride 0.9% 1, 600 000 ml @ 10 mls/hr IV . Q24H [facility] Rx#:[id number] Oral 600 480 Output: Urine 250 300 550 Post Void Residual 175 Other: Voiding Method Toilet Toilet Urinal - Labs CBC & Chem 7: 03/31/22 19:31 04/02/22 11:06 Labs: Abnormal Lab Results - Last 24 Hours (Table) 04/02/22 04/02/22 04/03/22 Range/Units 16:45 21:14 06:20 POC Glucose (mg/dL) 440 H 412 H 305 H (75-99) mg/dL 04/03/22 Range/Units 11:19 POC Glucose (mg/dL) 341 H (75-99) mg/dL
[2022-04-03 16:39] LABS: Glucose,Whole Blood 293 mg/dL (75-99)
[2022-04-03] MEDS ORDERED: FORMOTEROL FUMARATE 20 MCG/2 ML NEBU INHALATION SCH (20:00)
[2022-04-03] MEDS ORDERED: BUDESONIDE 0.5 MG/2 ML NEBU INHALATION SCH (20:00)
[2022-04-03 20:04] LABS: Glucose,Whole Blood 323 mg/dL (75-99)
[2022-04-03] MEDS: ATORVASTATIN 20 MG TAB PO SCH (20:54)
[2022-04-03] MEDS: MAGNESIUM OXIDE 400 MG TAB PO SCH (20:54)
[2022-04-03] MEDS: amLODIPine 10 MG TAB PO SCH (20:54)
[2022-04-03] MEDS: RIVAROXABAN 15 MG TAB PO SCH (20:54)
[2022-04-03] MEDS: ASPIRIN 81 MG PO SCH (20:54)
[2022-04-03] MEDS: PANTOPRAZOLE 40 MG TABLET PO SCH (20:55)
[2022-04-03] MEDS: TROSPIUM CHLORIDE 20 MG TABLET PO SCH (20:56)
[2022-04-04] MEDS ORDERED: MELATONIN 3 MG TABLET PO ONE ×2 (01:29→23:30)
[2022-04-04] MEDS: methylPREDNISolone SOD SUCCI 125 MG/2 ML VIAL IV SCH ×4 (04:36→20:54)
[2022-04-04 06:13] LABS: Glucose,Whole Blood 236 mg/dL (75-99)
[2022-04-04] MEDS: INSULIN DETEMIR (LEVEMIR) 100 UNIT/ML SYR SQ SCH (06:28)
[2022-04-04] MEDS: INSULIN ASPART (NovoLOG) 100 UNIT/ML VIAL SQ SCH ×8 (06:28→20:53)
[2022-04-04] MEDS: LEVOTHYROXINE 25 MCG TAB PO SCH (06:28)
[2022-04-04] MEDS: SODIUM CHLORIDE 0.9% 1,000 ML IV SCH (06:42)
[2022-04-04] MEDS: IPRATROPIUM-ALBUTEROL 3 ML NEB INHALATION SCH ×2 (08:24→20:11)
[2022-04-04] MEDS: BUDESONIDE 0.5 MG/2 ML NEBU INHALATION SCH ×2 (08:24→20:11)
[2022-04-04] MEDS: FORMOTEROL FUMARATE 20 MCG/2 ML NEBU INHALATION SCH ×2 (08:25→20:11)
[2022-04-04] MEDS: TAMSULOSIN 0.4 MG CAP.ER.24H PO SCH (08:34)
[2022-04-04] MEDS: levETIRAcetam 500 MG TAB PO SCH ×2 (08:34→20:54)
[2022-04-04] MEDS: METOPROLOL TARTRATE 25 MG TAB PO SCH ×2 (08:34→20:54)
[2022-04-04] MEDS: TROSPIUM CHLORIDE 20 MG TABLET PO SCH ×2 (08:36→20:55)
[2022-04-04] MEDS ORDERED: ERGOCALCIFEROL 1,250 MCG (50,000 IU) CAPSULE PO SCH (09:00)
[2022-04-04 10:09] LABS: HCT 29.6 % (39.0-53.0); Hypochromasia Slight; MCH 30.4 pg (25.0-35.0); MCHC 31.8 g/dL (31.0-37.0); MCV 95.6 fL (80.0-100.0); Mean Platelet Volume 7.8; Platelet Count 214 k/uL (150-450); RDW 15.1 % (11.5-15.5); WBC 15.1 k/uL (3.8-10.6)
[2022-04-04 10:32] LABS: HGB 9.4 gm/dL (13.0-17.5)
[2022-04-04 11:12] LABS: Calcium 8.4 mg/dL (8.4-10.2); Potassium 4.5 mmol/L (3.5-5.1)
--- NOTE | 2022-04-04 11:33 | P.PN ---
Subjective Patient is seen for follow-up for acute kidney injury which appears to be mostly prerenal. Status post IV fluids. He was admitted with shortness of breath secondary to COPD exacerbation. Chest x-ray did not show any evidence of CHF on initial admission Patient has been voiding. The patient was transferred to telemetry due to chest pain and elevated troponin which was 0.05. Patient was complaining of shortness of breath yesterday which was worse and he received a dose of IV Lasix. IV fluids were discontinued yesterday. Patient is currently comfortable denies any significant complaints however he did state that he has had some urine retention of about 370 mL. This is not documented and has been discussed with nursing staff. Objective - Vital Signs Vital signs: Vital Signs Temp 98.4 F 04/03/22 23:50 Pulse 86 04/04/22 08:49 Resp 16 04/04/22 08:49 BP 120/66 04/04/22 08:00 Pulse Ox 96 04/04/22 08:25 FiO2 21 04/04/22 08:25 Intake & Output 04/03/22 04/04/22 04/04/22 18:59 06:59 18:59 Intake Total 600 660 Output Total 725 620 200 Balance -125 -620 460 Weight 80.739 kg Intake: Oral 600 660 Output: Urine 550 620 200 Post Void Residual 175 Other: Voiding Method Toilet Urinal # Voids 1 - Exam Patient is awake, comfortable, not in any acute distress Examination of the heart S1 and S2 Examination lungs bilateral breath sounds are heard, wheezing heard bilaterally Abdomen is soft nontender Examination of the lower extremities shows no evidence of edema [employer]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 exam grossly intact - Labs CBC & Chem 7: 04/04/22 09:40 04/04/22 09:40 Labs: Abnormal Lab Results - Last 24 Hours (Table) 04/03/22 04/03/22 04/04/22 Range/Units 16:38 20:03 06:11 WBC (3.8-10.6) k/uL RBC (4.30-5.90) m/uL Hgb (13.0-17.5) gm/dL Hct (39.0-53.0) % Chloride (98-107) mmol/L Carbon Dioxide (22-30) mmol/L BUN (9-20) mg/dL Creatinine (0.66-1.25) mg/dL Glucose (74-99) mg/dL POC Glucose (mg/dL) 293 H 323 H 236 H (75-99) mg/dL 04/04/22 04/04/22 Range/Units 09:40 09:40 WBC 15.1 H (3.8-10.6) k/uL RBC 3.10 L (4.30-5.90) m/uL Hgb 9.4 L D (13.0-17.5) gm/dL Hct 29.6 L (39.0-53.0) % Chloride 109 H (98-107) mmol/L Carbon Dioxide 17 L (22-30) mmol/L BUN 89 H (9-20) mg/dL Creatinine 3.08 H (0.66-1.25) mg/dL Glucose 241 H (74-99) mg/dL POC Glucose (mg/dL) (75-99) mg/dL Assessment and Plan Assessment: 1. Acute kidney injury, prerenal currently nonoliguric. Check UA. No obstruction noted on ultrasound 2. Chronic kidney disease NKF stage IV with serum creatinine 1.7-2.1 mg/dL however recent creatinine was 2.4 in February. Etiology is nephrosclerosis UA showed trace protein previously 3. COPD exacerbation 4. Hypertension with CK D 5. History of seizures maintained on Keppra 6. Volume overload which is new, currently improved 7. Rule out urine retention Plan: Continue off of IV fluids Continue with current dose of by mouth Lasix Rule out urine retention and check post void bladder scan
[2022-04-04 11:36] LABS: Glucose,Whole Blood 273 mg/dL (75-99)
[2022-04-04] MEDS: IPRATROPIUM-ALBUTEROL 3 ML NEB INHALATION PRN ×2 (11:59→15:52)
[2022-04-04] MEDS: guaiFENesin 600 MG TABLET.ER PO SCH ×2 (12:33→20:54)
[2022-04-04] MEDS: FUROSEMIDE 40 MG TAB PO SCH (12:34)
--- NOTE | 2022-04-04 13:37 | CA ---
Transthoracic Echo Report Name: Isrrael Torres Age: 76 Gender: M : 1945 Exam Date: 04/04/2022 08:33 Exam Location: [facility] Ht (in): 73 Wt (lb): 178 Ordering Physician: Noam Crane DO ([email or web address]) Attending/Referring Phys: Hopper Filler Pratibha Puente RDCS Procedure CPT: Indications: re: LV function Cardiac Hx: Technical Quality: Fair Contrast 1: Total Dose (mL): Contrast 2: Total Dose (mL): MEASUREMENTS (Male / Female) Normal Values 2D ECHO LV Diastolic Diameter PLAX 4.1 cm 4.2 - 5.9 / 3.9 - 5.3 cm LV Systolic Diameter PLAX 2.9 cm IVS Diastolic Thickness 1.6 cm 0.6 - 1.0 / 0.6 - 0.9 cm LVPW Diastolic Thickness 1.7 cm 0.6 - 1.0 / 0.6 - 0.9 cm LV Relative Wall Thickness 0.8 LA Volume 47.0 cm??? 18 - 58 / 22 - 52 cm??? M-MODE Aortic Root Diameter MM 3.9 cm DOPPLER AV Peak Velocity 134.7 cm/s AV Peak Gradient 7.3 mmHg LVOT Peak Velocity 89.0 cm/s LVOT Peak Gradient 3.2 mmHg MV Area PHT 3.5 cm??? Mitral E Point Velocity 80.9 cm/s Mitral A Point Velocity 105.9 cm/s Mitral E to A Ratio 0.8 MV Deceleration Time 217.5 ms MV E' Velocity 5.8 cm/s Mitral E to MV E' Ratio 14.0 TR Peak Velocity 166.5 cm/s TR Peak Gradient 11.1 mmHg Right Ventricular Systolic Press 15.4 mmHg FINDINGS Left Ventricle Moderately increased left ventricular wall thickness. Normal left ventricular systolic function with no obvious regional wall motion abnormalities. Normal left ventricular diastolic filling pattern. Right Ventricle Normal right ventricular size and function. Right ventricular systolic pressure within normal limits. Right Atrium Normal right atrial size. Left Atrium Normal left atrial size. No evidence for an atrial septal defect. Mitral Valve Structurally normal mitral valve. No mitral stenosis, regurgitation or prolapse. Aortic Valve No aortic valve stenosis or regurgitation. Tricuspid Valve Structurally normal tricuspid valve. Mild tricuspid regurgitation. Pulmonic Valve Trace pulmonic regurgitation. Pericardium No pericardial effusion. Aorta Normal size aortic root and proximal ascending aorta. CONCLUSIONS Moderate LVH Normal left ventricular ejection fraction 55-60% Mild tricuspid regurgitation No pericardial effusion Previewed by: Dr. Noam Crane DO (Electronically Signed) Final Date: 04 Apr 2022 13:36
--- NOTE | 2022-04-04 14:07 | P.PN ---
Subjective Progress Note Date: 04/04/22 Principal diagnosis: COPD exacerbation. This a very pleasant 75-year-old gentleman who follows with Dr. Boyer as his primary care provider. He has a history of COPD, CVA/TIA, diabetes Vasile, DVT maintained on Xarelto, hyperlipidemia, hypertension, myocardial infarction, osteoarthritis, seizure disorder. He also has a history of left lung cancer with left upper lobectomy/IV chemotherapy and also diagnosed with a right lower lobe lung cancer in 2019 status post wedge resection. He remains on Keytruda. Note that the patient's most recent PET scan from 2021 showed no evidence of any active disease with disease recurrence at this point, the patient seems to be in remission. No known metastasis to the brain. The patient was in the hospital recently for a TIA in the neuro workup was been negative. The patient comes in to the hospital for worsening shortness of breath. He had increased dyspnea cough chest tightness and wheezing. He was Hospital as for acute septic exacerbation. Chest x-ray is not showing any acute abnormalities and this was consistent with COPD. At the same time, the patient is known to have chronic kidney disease stage IV with a baseline creatinine ranging between 1.7 and 2 and the most recent creatinine was up to 2.49 and later on a creatinine on admission was up to 3.0. Nephrology consult is obtained and the patient is being gently hydrated for now. He denies having any other complaints. White cell count is at 9.4 with hemoglobin 11.7, normal coagulation profile, COVID 19 testing is been negative, influenza screen has been negative On today's evaluation of 04/02/2022, the patient is slightly improved and the patient continues to bronchospastic and wheezy. He continues to BE short of breath and this is significant for COPD exacerbation. As mentioned, his lung cancer is in remission for now as the patient is taking immunotherapy. At the same time, the patient has developed a component of steroid-induced hyperglycemi a. Yesterday, he was started on Levemir 20 units and a sliding scale insulin coverage. Blood sugar is elevated today. He is on room air oxygen. No other complaints otherwise. No chest pain. No hemoptysis. No pleurisy. 04/03/2022, the patient is having more difficulties in breathing and is more bronchospastic and wheezy. Blood sugar remains elevated at the patient's current insulin Medrol 40 mg every 8 hours. He is also receiving DuoNeb neb treatments around the clock. No chest pain. No angina. No palpitations. No other complaints. IV fluids are in the form of normal saline at the rate of 75 mL an hour. Repeat labs from today are still pending. Creatinine from yesterday was at 2.9. Blood sugar from today's at 305. The patient himself remains on room air oxygen. Progress note dated 04/04/2022. This is a 76-year-old male who was seen in room 268. He typically sees one of my partners. He has a history of COPD, and is admitted with a diagnosis of COPD exacerbation. He also has a history of lung cancer, which is in remission, he is currently taking immunotherapy. The patient feels like his breathing is a bit better. He remains on appropriate medications. White count 15.1, hemoglobin 9.4, hematocrit 29.6, platelet count normal. Sodium 137, potassium 4.5, chlorides 109, CO2 17, BUN 89, and creatinine 3.08. Chest x-ray show some minimal left basilar atelectasis. Objective - Vital Signs Vital signs: Vital Signs Temp 98.4 F 04/03/22 23:50 Pulse 75 04/04/22 12:12 Resp 16 04/04/22 12:12 BP 150/70 04/04/22 12:00 Pulse Ox 94 L 04/04/22 12:00 FiO2 21 04/04/22 08:25 Intake & Output 04/03/22 04/04/22 04/04/22 18:59 06:59 18:59 Intake Total 600 780 Output Total 725 620 200 Balance -125 -620 580 Weight 80.739 kg Intake: Oral 600 780 Output: Urine 550 620 200 Post Void Residual 175 Other: Voiding Method Toilet Toilet Urinal Urinal # Voids 1 - Exam No acute distress, oriented 3. Room air saturation is 94%. No audible wheezing or use of accessory muscles. HEENT examination is grossly unremarkable. Neck supple. Full range of motion. No adenopathy thyromegaly or neck vein distention. Cardiovascular examination reveals regular rhythm rate. S1-S2 normal. No S3 or S4. No discernible murmur noted. Heart rate 75 bpm. Lungs reveal diffuse bilateral expiratory wheezes and expiratory rhonchi. No crackles. Breath sounds equal bilaterally. There is prolongation on forced maneuver. The patient wheezes and coughs on forced maneuver. Abdomen soft bowel sounds are heard. No masses or tenderness. Extremities are intact. No cyanosis clubbing or edema. Skin is without rash or lesion. Neurologic examination is brief but nonfocal. - Labs CBC & Chem 7: 04/04/22 09:40 04/04/22 09:40 Labs: Abnormal Lab Results - Last 24 Hours (Table) 04/03/22 04/03/22 04/04/22 Range/Units 16:38 20:03 06:11 WBC (3.8-10.6) k/uL RBC (4.30-5.90) m/uL Hgb (13.0-17.5) gm/dL Hct (39.0-53.0) % Chloride (98-107) mmol/L Carbon Dioxide (22-30) mmol/L BUN (9-20) mg/dL Creatinine (0.66-1.25) mg/dL Glucose (74-99) mg/dL POC Glucose (mg/dL) 293 H 323 H 236 H (75-99) mg/dL 04/04/22 04/04/22 04/04/22 Range/Units 09:40 09:40 11:34 WBC 15.1 H (3.8-10.6) k/uL RBC 3.10 L (4.30-5.90) m/uL Hgb 9.4 L D (13.0-17.5) gm/dL Hct 29.6 L (39.0-53.0) % Chloride 109 H (98-107) mmol/L Carbon Dioxide 17 L (22-30) mmol/L BUN 89 H (9-20) mg/dL Creatinine 3.08 H (0.66-1.25) mg/dL Glucose 241 H (74-99) mg/dL POC Glucose (mg/dL) 273 H (75-99) mg/dL Assessment and Plan Assessment: Acute exacerbation of COPD. Severe/stage III COPD, with an FEV1 is 47% of predicted. History of metastatic adenocarcinoma of the lung, currently receiving Keytruda. Status post left upper lobe resection for non-small cell lung cancer, and history of wedge resection, for pulmonary nodule, in the right lung for metastatic adenocarcinoma. Recent hospitalization for acute TIA, recovered. Acute on chronic stage III kidney disease. Diabetes mellitus. History of hypertension. History of hyperlipidemia. History of left lower extremity DVT. Degenerative arthritis of the cervical spine. Chronic anemia. Plan: Plan dated 04/04/2022. The patient continues on appropriate medications including updrafts, Perforomist, Pulmicort, and corticosteroids. The patient also remains on a factor X a inhibitor. We will continue to follow and make recommendations were appropriate. Prognosis is guarded. No additional recommendations are made at this time. Labs, x-rays, medications are all reviewed. Time with Patient: Less than 30
[2022-04-04 16:29] LABS: Glucose,Whole Blood 210 mg/dL (75-99)
--- NOTE | 2022-04-04 16:38 | PN ---
PROGRESS NOTE Mr. Torres is doing well. He has history of diabetes, COPD, acute kidney injury. He is making moderate progress. He is on IV Lasix, and we will switch him to p.o. Lasix. Check LV function by echo and also check a BNP. Vitals are stable. JVD is evident. S1- S2 heard normally. Short systolic murmur noted. Lungs reveal diminished air entry. Abdomen is soft. Lower extremities reveal diminished pulses. Central nervous system: Grossly no focal deficit. Prognosis remains guarded. MMODL / IJN: [id number] /
[2022-04-04 20:12] LABS: Glucose,Whole Blood 197 mg/dL (75-99)
--- NOTE | 2022-04-04 20:27 | P.PN ---
Subjective Progress Note Date: 04/04/22 (delayed charting seen at 0830) Principal diagnosis: dyspnea Patient is a 76-year-old male for history of COPD Patient seen and examined at bedside. He continues to have significant shortness of breath, wheezing, cough is nonproductive. He feels as though he has many things to get up still. He has had some significant improvement but still is not at baseline. General: non toxic, no distress, appears at stated age Derm: warm, dry Head: atraumatic, normocephalic, symmetric Eyes: EOMI, no lid lag, anicteric sclera Mouth: no lip lesion, mucus membranes moist Cardiovascular: S1S2 reg, no murmur, positive posterior tibial pulse bilateral, Lungs: Diffuse expiratory wheeze , no accessory muscle use Abdominal: soft, nontender to palpation, no guarding, no appreciable organomegaly Ext: no gross muscle atrophy, no edema, no contractures Neuro: CN II-XI grossly intact, no focal neuro deficits Psych: Alert, oriented, appropriate affect Assessment/Plan: AE COPD- Severe lung ca on Keytruda - pulm recs - steroids, add mucinex - bronchdilators atypical chest pain elevated troponin - cardio recs - await echo HERMELINDO on CKD IV - nephro recs - off iV - no hyrdo on US - follow labs DM 2 - levemir - fixed dose - SSI - follow BS Chronic: seizures CAD HTN DVT- on xarelto Objective - Vital Signs Vital signs: Vital Signs Temp 98.4 F 04/03/22 23:50 Pulse 92 04/04/22 20:12 Resp 16 04/04/22 16:00 BP 124/64 04/04/22 16:00 Pulse Ox 95 04/04/22 16:00 FiO2 21 04/04/22 08:25 Intake & Output 04/04/22 04/04/22 04/05/22 06:59 18:59 06:59 Intake Total 780 Output Total 620 800 Balance -620 -20 Intake: Oral 780 Output: Urine 620 500 Post Void Residual 300 Other: Voiding Method Toilet Toilet Urinal Urinal # Voids 1 - Labs CBC & Chem 7: 04/04/22 09:40 04/04/22 09:40 Labs: Abnormal Lab Results - Last 24 Hours (Table) 04/04/22 04/04/22 04/04/22 Range/Units 06:11 09:40 09:40 WBC 15.1 H (3.8-10.6) k/uL RBC 3.10 L (4.30-5.90) m/uL Hgb 9.4 L D (13.0-17.5) gm/dL Hct 29.6 L (39.0-53.0) % Chloride 109 H (98-107) mmol/L Carbon Dioxide 17 L (22-30) mmol/L BUN 89 H (9-20) mg/dL Creatinine 3.08 H (0.66-1.25) mg/dL Glucose 241 H (74-99) mg/dL POC Glucose (mg/dL) 236 H (75-99) mg/dL 04/04/22 04/04/22 04/04/22 Range/Units 11:34 16:28 20:11 WBC (3.8-10.6) k/uL RBC (4.30-5.90) m/uL Hgb (13.0-17.5) gm/dL Hct (39.0-53.0) % Chloride (98-107) mmol/L Carbon Dioxide (22-30) mmol/L BUN (9-20) mg/dL Creatinine (0.66-1.25) mg/dL Glucose (74-99) mg/dL POC Glucose (mg/dL) 273 H 210 H 197 H (75-99) mg/dL
[2022-04-04] MEDS: PANTOPRAZOLE 40 MG TABLET PO SCH (20:54)
[2022-04-04] MEDS: amLODIPine 10 MG TAB PO SCH (20:54)
[2022-04-04] MEDS: RIVAROXABAN 15 MG TAB PO SCH (20:54)
[2022-04-04] MEDS: ASPIRIN 81 MG PO SCH (20:54)
[2022-04-04] MEDS: ATORVASTATIN 20 MG TAB PO SCH (20:54)
[2022-04-04] MEDS: MAGNESIUM OXIDE 400 MG TAB PO SCH (20:54)
[2022-04-05] MEDS: methylPREDNISolone SOD SUCCI 125 MG/2 ML VIAL IV SCH ×4 (04:24→20:56)
[2022-04-05 06:11] LABS: Glucose,Whole Blood 242 mg/dL (75-99)
[2022-04-05] MEDS: INSULIN ASPART (NovoLOG) 100 UNIT/ML VIAL SQ SCH ×8 (06:12→20:56)
[2022-04-05] MEDS: INSULIN DETEMIR (LEVEMIR) 100 UNIT/ML SYR SQ SCH (06:12)
[2022-04-05] MEDS: LEVOTHYROXINE 25 MCG TAB PO SCH (06:13)
[2022-04-05 06:19] LABS: Glucose,Whole Blood 241 mg/dL (75-99)
[2022-04-05 08:03] LABS: HCT 29.8 % (39.0-53.0); HGB 9.5 gm/dL (13.0-17.5); Hypochromasia Slight; MCH 30.6 pg (25.0-35.0); MCV 95.7 fL (80.0-100.0); Mean Platelet Volume 7.8; Platelet Count 206 k/uL (150-450); RBC 3.12 m/uL (4.30-5.90); RDW 15.2 % (11.5-15.5); WBC 12.9 k/uL (3.8-10.6)
[2022-04-05 08:21] LABS: Calcium 8.6 mg/dL (8.4-10.2); Magnesium 1.7 mg/dL (1.6-2.3); Potassium 4.6 mmol/L (3.5-5.1)
[2022-04-05] MEDS: FORMOTEROL FUMARATE 20 MCG/2 ML NEBU INHALATION SCH ×2 (08:27→19:46)
[2022-04-05] MEDS: IPRATROPIUM-ALBUTEROL 3 ML NEB INHALATION SCH ×2 (08:27→19:46)
[2022-04-05] MEDS: BUDESONIDE 0.5 MG/2 ML NEBU INHALATION SCH ×2 (08:28→19:46)
[2022-04-05] MEDS: SODIUM CHLORIDE 0.9% 1,000 ML IV SCH (09:31)
[2022-04-05] MEDS: TROSPIUM CHLORIDE 20 MG TABLET PO SCH ×2 (09:47→20:58)
[2022-04-05] MEDS: METOPROLOL TARTRATE 25 MG TAB PO SCH ×2 (09:47→20:57)
[2022-04-05] MEDS: TAMSULOSIN 0.4 MG CAP.ER.24H PO SCH (09:47)
[2022-04-05] MEDS: guaiFENesin 600 MG TABLET.ER PO SCH ×2 (09:47→20:57)
[2022-04-05] MEDS: levETIRAcetam 500 MG TAB PO SCH ×2 (09:47→20:57)
[2022-04-05] MEDS: FUROSEMIDE 40 MG TAB PO SCH (09:47)
[2022-04-05 11:45] LABS: Glucose,Whole Blood 285 mg/dL (75-99)
[2022-04-05] MEDS: IPRATROPIUM-ALBUTEROL 3 ML NEB INHALATION PRN ×2 (11:50→15:47)
--- NOTE | 2022-04-05 11:54 | P.PN ---
Subjective Progress Note Date: 04/05/22 Principal diagnosis: COPD exacerbation. This a very pleasant 75-year-old gentleman who follows with Dr. Boyer as his primary care provider. He has a history of COPD, CVA/TIA, diabetes Vasile, DVT maintained on Xarelto, hyperlipidemia, hypertension, myocardial infarction, osteoarthritis, seizure disorder. He also has a history of left lung cancer with left upper lobectomy/IV chemotherapy and also diagnosed with a right lower lobe lung cancer in 2019 status post wedge resection. He remains on Keytruda. Note that the patient's most recent PET scan from 2021 showed no evidence of any active disease with disease recurrence at this point, the patient seems to be in remission. No known metastasis to the brain. The patient was in the hospital recently for a TIA in the neuro workup was been negative. The patient comes in to the hospital for worsening shortness of breath. He had increased dyspnea cough chest tightness and wheezing. He was Hospital as for acute septic exacerbation. Chest x-ray is not showing any acute abnormalities and this was consistent with COPD. At the same time, the patient is known to have chronic kidney disease stage IV with a baseline creatinine ranging between 1.7 and 2 and the most recent creatinine was up to 2.49 and later on a creatinine on admission was up to 3.0. Nephrology consult is obtained and the patient is being gently hydrated for now. He denies having any other complaints. White cell count is at 9.4 with hemoglobin 11.7, normal coagulation profile, COVID 19 testing is been negative, influenza screen has been negative On today's evaluation of 04/02/2022, the patient is slightly improved and the patient continues to bronchospastic and wheezy. He continues to BE short of breath and this is significant for COPD exacerbation. As mentioned, his lung cancer is in remission for now as the patient is taking immunotherapy. At the same time, the patient has developed a component of steroid-induced hyperglycemi a. Yesterday, he was started on Levemir 20 units and a sliding scale insulin coverage. Blood sugar is elevated today. He is on room air oxygen. No other complaints otherwise. No chest pain. No hemoptysis. No pleurisy. 04/03/2022, the patient is having more difficulties in breathing and is more bronchospastic and wheezy. Blood sugar remains elevated at the patient's current insulin Medrol 40 mg every 8 hours. He is also receiving DuoNeb neb treatments around the clock. No chest pain. No angina. No palpitations. No other complaints. IV fluids are in the form of normal saline at the rate of 75 mL an hour. Repeat labs from today are still pending. Creatinine from yesterday was at 2.9. Blood sugar from today's at 305. The patient himself remains on room air oxygen. Progress note dated 04/04/2022. This is a 76-year-old male who was seen in room 268. He typically sees one of my partners. He has a history of COPD, and is admitted with a diagnosis of COPD exacerbation. He also has a history of lung cancer, which is in remission, he is currently taking immunotherapy. The patient feels like his breathing is a bit better. He remains on appropriate medications. White count 15.1, hemoglobin 9.4, hematocrit 29.6, platelet count normal. Sodium 137, potassium 4.5, chlorides 109, CO2 17, BUN 89, and creatinine 3.08. Chest x-ray show some minimal left basilar atelectasis. Progress note dated 04/05/2022. 76-year-old male, again seen in room 368. The patient is doing a bit better today. He is being treated for a COPD exacerbation. The patient does have a history of lung cancer, which is apparently in remission. The patient denies any worsening shortness of breath, and feels like his breathing is improved. White count 12.9, over 9.5, hematocrit 29.8, and platelet count is normal. Sodium is 138, potassium 4.6, chlorides 108, CO2 18, anion gap 12, BUN 98, and creatinine 3.0. Objective - Vital Signs Vital signs: Vital Signs Temp 97.9 F 04/04/22 20:40 Pulse 96 04/05/22 08:49 Resp 16 04/05/22 08:00 BP 129/63 04/05/22 08:00 Pulse Ox 96 04/05/22 08:28 FiO2 21 04/04/22 08:25 Intake & Output 04/04/22 04/05/22 04/05/22 18:59 06:59 18:59 Intake Total 780 0 Output Total 800 950 350 Balance -20 -950 -350 Intake: Oral 780 0 Output: Urine 500 950 350 Post Void Residual 300 Other: Voiding Method Toilet Toilet Toilet Urinal Urinal Urinal # Voids 1 2 - Exam No acute distress, oriented 3. Room air saturation is 96%. No audible wheezing or use of accessory muscles. HEENT examination is grossly unremarkable. Neck supple. Full range of motion. No adenopathy thyromegaly or neck vein distention. Cardiovascular examination reveals regular rhythm rate. S1-S2 normal. No S3 or S4. No discernible murmur noted. Heart rate 96 bpm. Lungs reveal diffuse bilateral expiratory wheezes and expiratory rhonchi. No crackles. Breath sounds equal bilaterally. There is prolongation on forced maneuver. The patient wheezes and coughs on forced maneuver. Abdomen soft bowel sounds are heard. No masses or tenderness. Extremities are intact. No cyanosis clubbing or edema. Skin is without rash or lesion. Neurologic examination is brief but nonfocal. - Labs CBC & Chem 7: 04/05/22 07:15 04/05/22 07:15 Labs: Abnormal Lab Results - Last 24 Hours (Table) 04/04/22 04/04/22 04/05/22 Range/Units 16:28 20:11 06:09 WBC (3.8-10.6) k/uL RBC (4.30-5.90) m/uL Hgb (13.0-17.5) gm/dL Hct (39.0-53.0) % Chloride (98-107) mmol/L Carbon Dioxide (22-30) mmol/L BUN (9-20) mg/dL Creatinine (0.66-1.25) mg/dL Glucose (74-99) mg/dL POC Glucose (mg/dL) 210 H 197 H 242 H (75-99) mg/dL 04/05/22 04/05/22 04/05/22 Range/Units 06:17 07:15 07:15 WBC 12.9 H (3.8-10.6) k/uL RBC 3.12 L (4.30-5.90) m/uL Hgb 9.5 L (13.0-17.5) gm/dL Hct 29.8 L (39.0-53.0) % Chloride 108 H (98-107) mmol/L Carbon Dioxide 18 L (22-30) mmol/L BUN 98 H (9-20) mg/dL Creatinine 3.00 H (0.66-1.25) mg/dL Glucose 220 H (74-99) mg/dL POC Glucose (mg/dL) 241 H (75-99) mg/dL 04/05/22 Range/Units 11:43 WBC (3.8-10.6) k/uL RBC (4.30-5.90) m/uL Hgb (13.0-17.5) gm/dL Hct (39.0-53.0) % Chloride (98-107) mmol/L Carbon Dioxide (22-30) mmol/L BUN (9-20) mg/dL Creatinine (0.66-1.25) mg/dL Glucose (74-99) mg/dL POC Glucose (mg/dL) 285 H (75-99) mg/dL Assessment and Plan Assessment: Acute exacerbation of COPD. Severe/stage III COPD, with an FEV1 is 47% of predicted. History of metastatic adenocarcinoma of the lung, currently receiving Keytruda. Status post left upper lobe resection for non-small cell lung cancer, and history of wedge resection, for pulmonary nodule, in the right lung for metastatic adenocarcinoma. Recent hospitalization for acute TIA, recovered. Acute on chronic stage III kidney disease. Diabetes mellitus. History of hypertension. History of hyperlipidemia. History of left lower extremity DVT. Degenerative arthritis of the cervical spine. Chronic anemia. Plan: Plan dated 04/04/2022. The patient continues on appropriate medications including updrafts, Perforomist, Pulmicort, and corticosteroids. The patient also remains on a factor X a inhibitor. We will continue to follow and make recommendations were appropriate. Prognosis is guarded. No additional recommendations are made at this time. Labs, x-rays, medications are all reviewed. Plan dated 04/05/2022. The patient is currently on appropriate medications. His COPD exacerbation is improved. Not quite ready for discharge. I believe he'll be ready in the next 24-48 hours. The patient will follow-up with my partner. Labs, x-rays, medications are reviewed. The patient's overall prognosis remains guarded. We will continue to follow the patient make recommendations where appropriate. Labs, x-rays, medications are all reviewed. Time with Patient: Less than 30
--- NOTE | 2022-04-05 12:06 | P.PN ---
Subjective Patient is pleasant 75-year-old male with history of COPD, stroke, diabetes mellitus, DVT on Xarelto, hyperlipidemia, chronic kidney disease, hypertension, coronary artery disease, seizure disorder and lung cancer status post lobectomy as well as recurrent right lung cancer with bone resection on Keytruda. He follows with Dr. Chacon. He presents secondary to worsening shortness breath. We have been consulted for elevated troponin. He presents with a COPD exacerbation. Patient was actually admitted 03/31 with COPD exacerbation and then developed some chest tightness feeling yesterday. Therefore repeat troponins were drawn with initial 0.02 from 03/31 however on 04/02 0.04, 0.05, 0.04. Repeat EKG from 04/[address] depressions in inferior leads. He does also admit to approximately 30 pound weight loss over last 3 weeks which has been unintentional. He does have prior heart catheterization from [address] of the RCA obstructive disease of a small caliber obtuse marginal 2, moderate disease of the circumflex and moderate disease of the LAD however FFR normal. 04/05/2022 Patient seen and examined at bedside, no acute distress. Denies any chest pain or shortness of breath. Echocardiogram revealed EF 5560 percent, mild tricuspid regurgitation, no significant wall motion abnormalities. Patient's vital signs are stable. IV Lasix was discontinued yesterday and patient was placed back on his oral Lasix. Pulmonary following for COPD exacerbation Labs: Sodium 138, potassium 4.6, BUN 98, serum creatinine 3.0, magnesium 1.7 PHYSICAL EXAMINATION Vital signs reviewed. CONSTITUTIONAL: No apparent distress. HEENT: Head is normocephalic. Neck Supple. No JVD. No carotid bruit. CHEST EXAMINATION: Lungs are clear to auscultation. No chest wall tenderness is noted on palpation or with deep breathing. HEART EXAMINATION: Regular rate and rhythm. S1, S2 heard. No murmurs, gallops or rub. ABDOMEN: Soft, nontender. Positive bowel sounds. EXTREMITIES: 2+ peripheral pulses, no lower extremity edema and no calf tenderness. NEUROLOGIC EXAMINATION: Patient is awake, alert and oriented x3. ASSESSMENT Acute on chronic respiratory failure appears to be mainly related to COPD e xacerbation Mildly elevated troponins with atypical chest pain do not suspect acute coronary syndrome. Suspect related to chronic kidney disease, hypoxia Chronic kidney disease, worsening the last few months Recent 30 pound weight loss in last 3 weeks per patient Lung cancer on Keytruda Coronary artery disease with history of [employer] and moderate LAD and circumflex disease heart catheterization 2013 Hypertension History of DVT on Xarelto PLAN Patient's main presentation appears consistent with COPD exacerbation. Onset of chest pain appears atypical with minimally elevated troponins and no significant change on EKG. Echocardiogram revealed EF 55-60% with no significant wall motion abnormalities. Continue home cardiac medications. We will follow the patient as needed. Please reconsult if needed. Patient follow-up outpatient with Dr. Chacon Nurse practitioner note has been reviewed by physician. Signing provider agrees with the documented findings, assessment, and plan of care. Objective - Vital Signs Vital signs: Vital Signs Temp 98.4 F 04/03/22 23:50 Pulse 75 04/04/22 12:12 Resp 16 04/04/22 12:12 BP 150/70 04/04/22 12:00 Pulse Ox 94 L 04/04/22 12:00 FiO2 21 04/04/22 08:25 Intake & Output 04/03/22 04/04/22 04/04/22 18:59 06:59 18:59 Intake Total 600 780 Output Total 725 620 200 Balance -125 -620 580 Weight 80.739 kg Intake: Oral 600 780 Output: Urine 550 620 200 Post Void Residual 175 Other: Voiding Method Toilet Toilet Urinal Urinal # Voids 1 - Labs CBC & Chem 7: 04/05/22 07:15 04/05/22 07:15 Labs: Abnormal Lab Results - Last 24 Hours (Table) 04/03/22 04/03/22 04/04/22 Range/Units 16:38 20:03 06:11 WBC (3.8-10.6) k/uL RBC (4.30-5.90) m/uL Hgb (13.0-17.5) gm/dL Hct (39.0-53.0) % Chloride (98-107) mmol/L Carbon Dioxide (22-30) mmol/L BUN (9-20) mg/dL Creatinine (0.66-1.25) mg/dL Glucose (74-99) mg/dL POC Glucose (mg/dL) 293 H 323 H 236 H (75-99) mg/dL 04/04/22 04/04/22 04/04/22 Range/Units 09:40 09:40 11:34 WBC 15.1 H (3.8-10.6) k/uL RBC 3.10 L (4.30-5.90) m/uL Hgb 9.4 L D (13.0-17.5) gm/dL Hct 29.6 L (39.0-53.0) % Chloride 109 H (98-107) mmol/L Carbon Dioxide 17 L (22-30) mmol/L BUN 89 H (9-20) mg/dL Creatinine 3.08 H (0.66-1.25) mg/dL Glucose 241 H (74-99) mg/dL POC Glucose (mg/dL) 273 H (75-99) mg/dL
--- NOTE | 2022-04-05 15:36 | PN ---
PROGRESS NOTE Patient is seen for followup for chronic kidney disease and acute kidney injury. The patient is complaining of shortness of breath again today. His respiratory status had improved with IV Lasix 2 days ago. Currently he is maintained on oral Lasix. Patient does not have any urine retention. PHYSICAL EXAMINATION: On examination today, blood pressure 137/66, heart rate 89 per minute. He is afebrile examination of the heart S1, S2. Examination of the lungs, bilateral breath sounds are heard. Abdomen is soft, nontender. Examination of lower extremities shows no edema. CHEMIST BIOLOGICAL exam grossly intact. LAB: Show sodium 138, potassium 4.6, chloride 108, CO2 is 18, BUN 98. Serum creatinine 3.0. ASSESSMENT: 1. Chronic kidney disease NKF stage 4, previous creatinine 1.7-2.1 now, most recently about 2.4 prior to admission. Etiology is nephrosclerosis. 2. Acute kidney injury initially prerenal and improved slightly since admission after IV fluids, but the patient developed volume overload and IV fluids were discontinued. 3. Mild volume overload. 4. Hypertension with CKD. PLAN: Switch to IV Lasix. Repeat labs in a.m. I will discuss with nursing staff regarding UA which has been ordered 2 times and has still not been done. MMODL / IJN: [id number] /
[2022-04-05 16:57] LABS: Glucose,Whole Blood 281 mg/dL (75-99)
[2022-04-05] MEDS: FUROSEMIDE 10 MG/ML 4 ML VIAL IV SCH (17:35)
--- NOTE | 2022-04-05 19:00 | P.PN ---
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 In the ER he underwent an extensive evaluation. Chest x- ray showed no acute process. Initial laboratory analysis showed a slight worsening of his creatinine at 3.01 (baseline 2.4). COVID-19 and influenza testing were negative. He was admitted and started on Solu-Medrol, Zithromax, and bronchodilators. Pulmonary was consulted. Nephrology was also consulted. He was initially treated with IV fluids but then became slightly fluid overloaded. Echocardiogram was completed which showed a preserved ejection fraction, LVH, but normal diastolic function. He developed some chest tightness and troponins were checked. They were mildly abnormal however flat and not consistent with acute coronary syndrome and likely related to hypoxia and chronic kidney disease. Patient was evaluated by cardiology who did not recommend further workup for coronary artery disease. Patient seen and examined at bedside. He reports that he is feeling better and breathing better. states Dr. Mccain says he needs to be here till sunday. No alex st pain. eating and drinking well. General: non toxic, no distress, appears at stated age Derm: warm, dry Head: atraumatic, normocephalic, symmetric Eyes: EOMI, no lid lag, anicteric sclera Mouth: no lip lesion, mucus membranes moist Cardiovascular: S1S2 reg, no murmur, positive posterior tibial pulse bilateral, Lungs: Diffuse expiratory wheeze- improved , no accessory muscle use Abdominal: soft, nontender to palpation, no guarding, no appreciable organomegaly Ext: no gross muscle atrophy, no edema, no contractures Neuro: CN II-XI grossly intact, no focal neuro deficits Psych: Alert, oriented, appropriate affect Assessment/Plan: AE COPD- Severe lung ca on Keytruda - pulm recs - steroids, - bronchdilators atypical chest pain elevated troponin, likely due to CKD/hypoxia - cardio recs - Echo with LVH preserved EF and normal diastolic function HERMELINDO on CKD IV - nephro recs - Lasix - no hyrdo on US - follow labs DM 2, hyperglycemia due to steroids - levemir - fixed dose - SSI - follow BS Chronic: seizures CAD HTN DVT- on xarelto Recent TIA Objective - Vital Signs Vital signs: Vital Signs Temp 97.9 F 04/04/22 20:40 Pulse 85 04/05/22 16:00 Resp 16 04/05/22 16:00 BP 138/61 04/05/22 16:00 Pulse Ox 96 04/05/22 16:00 FiO2 21 04/04/22 08:25 Intake & Output 04/04/22 04/05/22 04/05/22 18:59 06:59 18:59 Intake Total 780 590 Output Total 800 950 700 Balance -20 -950 -110 Intake: Oral 780 590 Output: Urine 500 950 700 Post Void Residual 300 Other: Voiding Method Toilet Toilet Toilet Urinal Urinal Urinal # Voids 1 2 - Labs CBC & Chem 7: 04/05/22 07:15 04/05/22 07:15 Labs: Abnormal Lab Results - Last 24 Hours (Table) 04/04/22 04/05/22 04/05/22 Range/Units 20:11 06:09 06:17 WBC (3.8-10.6) k/uL RBC (4.30-5.90) m/uL Hgb (13.0-17.5) gm/dL Hct (39.0-53.0) % Chloride (98-107) mmol/L Carbon Dioxide (22-30) mmol/L BUN (9-20) mg/dL Creatinine (0.66-1.25) mg/dL Glucose (74-99) mg/dL POC Glucose (mg/dL) 197 H 242 H 241 H (75-99) mg/dL 04/05/22 04/05/22 04/05/22 Range/Units 07:15 07:15 11:43 WBC 12.9 H (3.8-10.6) k/uL RBC 3.12 L (4.30-5.90) m/uL Hgb 9.5 L (13.0-17.5) gm/dL Hct 29.8 L (39.0-53.0) % Chloride 108 H (98-107) mmol/L Carbon Dioxide 18 L (22-30) mmol/L BUN 98 H (9-20) mg/dL Creatinine 3.00 H (0.66-1.25) mg/dL Glucose 220 H (74-99) mg/dL POC Glucose (mg/dL) 285 H (75-99) mg/dL 04/05/22 Range/Units 16:54 WBC (3.8-10.6) k/uL RBC (4.30-5.90) m/uL Hgb (13.0-17.5) gm/dL Hct (39.0-53.0) % Chloride (98-107) mmol/L Carbon Dioxide (22-30) mmol/L BUN (9-20) mg/dL Creatinine (0.66-1.25) mg/dL Glucose (74-99) mg/dL POC Glucose (mg/dL) 281 H (75-99) mg/dL
[2022-04-05 20:23] LABS: Glucose,Whole Blood 224 mg/dL (75-99)
[2022-04-05] MEDS: ATORVASTATIN 20 MG TAB PO SCH (20:57)
[2022-04-05] MEDS: RIVAROXABAN 15 MG TAB PO SCH (20:57)
[2022-04-05] MEDS: PANTOPRAZOLE 40 MG TABLET PO SCH (20:57)
[2022-04-05] MEDS: MAGNESIUM OXIDE 400 MG TAB PO SCH (20:57)
[2022-04-05] MEDS: ASPIRIN 81 MG PO SCH (20:57)
[2022-04-05] MEDS: amLODIPine 10 MG TAB PO SCH (20:58)
[2022-04-05] MEDS ORDERED: MELATONIN 3 MG TABLET PO ONE (21:39)
[2022-04-05 23:37] LABS: Appearance,Urine Clear (Clear); Bilirubin,Urine Negative (Negative); Blood,Urine Negative (Negative); Color,Urine Light Yellow; Glucose,Urine (UA) Negative (Negative); Ketones,Urine Negative (Negative); Leukocyte Esterase,Urine Negative (Negative); Nitrite,Urine Negative (Negative); Protein,Urine Negative (Negative); Urobilinogen,Urine <2.0 mg/dL (<2.0)
[2022-04-06] MEDS: methylPREDNISolone SOD SUCCI 125 MG/2 ML VIAL IV SCH ×4 (03:10→22:14)
[2022-04-06 06:10] LABS: Glucose,Whole Blood 287 mg/dL (75-99)
[2022-04-06] MEDS: INSULIN ASPART (NovoLOG) 100 UNIT/ML VIAL SQ SCH ×8 (06:14→22:12)
[2022-04-06] MEDS: INSULIN DETEMIR (LEVEMIR) 100 UNIT/ML SYR SQ SCH (06:14)
[2022-04-06] MEDS: LEVOTHYROXINE 25 MCG TAB PO SCH (06:15)
[2022-04-06] MEDS: BUDESONIDE 0.5 MG/2 ML NEBU INHALATION SCH ×2 (07:47→19:29)
[2022-04-06] MEDS: FORMOTEROL FUMARATE 20 MCG/2 ML NEBU INHALATION SCH ×2 (07:47→19:28)
[2022-04-06] MEDS: IPRATROPIUM-ALBUTEROL 3 ML NEB INHALATION SCH ×2 (07:47→19:46)
[2022-04-06 08:08] LABS: HCT 31.7 % (39.0-53.0); HGB 10.1 gm/dL (13.0-17.5); MCHC 31.8 g/dL (31.0-37.0); MCV 94.3 fL (80.0-100.0); Mean Platelet Volume 8.3; Platelet Count 232 k/uL (150-450); RBC 3.36 m/uL (4.30-5.90); RDW 15.4 % (11.5-15.5); WBC 13.7 k/uL (3.8-10.6)
[2022-04-06 08:21] LABS: Calcium 8.5 mg/dL (8.4-10.2); Potassium 4.1 mmol/L (3.5-5.1)
[2022-04-06] MEDS: FUROSEMIDE 10 MG/ML 4 ML VIAL IV SCH (08:50)
[2022-04-06] MEDS: guaiFENesin 600 MG TABLET.ER PO SCH ×2 (08:51→22:13)
[2022-04-06] MEDS: METOPROLOL TARTRATE 25 MG TAB PO SCH ×2 (08:51→22:13)
[2022-04-06] MEDS: TAMSULOSIN 0.4 MG CAP.ER.24H PO SCH (08:51)
[2022-04-06] MEDS: levETIRAcetam 500 MG TAB PO SCH ×2 (08:51→22:13)
[2022-04-06] MEDS: TROSPIUM CHLORIDE 20 MG TABLET PO SCH ×2 (08:51→22:13)
[2022-04-06] MEDS: SODIUM CHLORIDE 0.9% 1,000 ML IV SCH ×2 (08:52→22:15)
--- NOTE | 2022-04-06 11:26 | P.PN ---
Subjective Progress Note Date: 04/06/22 Principal diagnosis: COPD exacerbation. This a very pleasant 75-year-old gentleman who follows with Dr. Boyer as his primary care provider. He has a history of COPD, CVA/TIA, diabetes Vasile, DVT maintained on Xarelto, hyperlipidemia, hypertension, myocardial infarction, osteoarthritis, seizure disorder. He also has a history of left lung cancer with left upper lobectomy/IV chemotherapy and also diagnosed with a right lower lobe lung cancer in 2019 status post wedge resection. He remains on Keytruda. Note that the patient's most recent PET scan from 2021 showed no evidence of any active disease with disease recurrence at this point, the patient seems to be in remission. No known metastasis to the brain. The patient was in the hospital recently for a TIA in the neuro workup was been negative. The patient comes in to the hospital for worsening shortness of breath. He had increased dyspnea cough chest tightness and wheezing. He was Hospital as for acute septic exacerbation. Chest x-ray is not showing any acute abnormalities and this was consistent with COPD. At the same time, the patient is known to have chronic kidney disease stage IV with a baseline creatinine ranging between 1.7 and 2 and the most recent creatinine was up to 2.49 and later on a creatinine on admission was up to 3.0. Nephrology consult is obtained and the patient is being gently hydrated for now. He denies having any other complaints. White cell count is at 9.4 with hemoglobin 11.7, normal coagulation profile, COVID 19 testing is been negative, influenza screen has been negative On today's evaluation of 04/02/2022, the patient is slightly improved and the patient continues to bronchospastic and wheezy. He continues to BE short of breath and this is significant for COPD exacerbation. As mentioned, his lung cancer is in remission for now as the patient is taking immunotherapy. At the same time, the patient has developed a component of steroid-induced hyperglycemi a. Yesterday, he was started on Levemir 20 units and a sliding scale insulin coverage. Blood sugar is elevated today. He is on room air oxygen. No other complaints otherwise. No chest pain. No hemoptysis. No pleurisy. 04/03/2022, the patient is having more difficulties in breathing and is more bronchospastic and wheezy. Blood sugar remains elevated at the patient's current insulin Medrol 40 mg every 8 hours. He is also receiving DuoNeb neb treatments around the clock. No chest pain. No angina. No palpitations. No other complaints. IV fluids are in the form of normal saline at the rate of 75 mL an hour. Repeat labs from today are still pending. Creatinine from yesterday was at 2.9. Blood sugar from today's at 305. The patient himself remains on room air oxygen. Progress note dated 04/04/2022. This is a 76-year-old male who was seen in room 268. He typically sees one of my partners. He has a history of COPD, and is admitted with a diagnosis of COPD exacerbation. He also has a history of lung cancer, which is in remission, he is currently taking immunotherapy. The patient feels like his breathing is a bit better. He remains on appropriate medications. White count 15.1, hemoglobin 9.4, hematocrit 29.6, platelet count normal. Sodium 137, potassium 4.5, chlorides 109, CO2 17, BUN 89, and creatinine 3.08. Chest x-ray show some minimal left basilar atelectasis. Progress note dated 04/05/2022. 76-year-old male, again seen in room 368. The patient is doing a bit better today. He is being treated for a COPD exacerbation. The patient does have a history of lung cancer, which is apparently in remission. The patient denies any worsening shortness of breath, and feels like his breathing is improved. White count 12.9, over 9.5, hematocrit 29.8, and platelet count is normal. Sodium is 138, potassium 4.6, chlorides 108, CO2 18, anion gap 12, BUN 98, and creatinine 3.0. Progress note dated 04/06/2022. 76-year-old male, seen in room 368. The patient is doing better today. He was admitted with a COPD exacerbation. His breathing is improved. He is much less short of breath. He does continue to have some cough, which is nonproductive, and he does continue to wheeze. His symptoms are certainly worse when he is up exerting himself. White count 13.7, hemoglobin 10.1, hematocrit 31.7, and platelet count 232,000. Sodium 136, potassium 4.1, chlorides 105, CO2 20, BUN 101, and creatinine 3. Objective - Vital Signs Vital signs: Vital Signs Temp 97.0 F L 04/06/22 07:33 Pulse 90 04/06/22 08:19 Resp 16 04/06/22 07:33 BP 140/73 04/06/22 07:33 Pulse Ox 96 04/06/22 07:33 FiO2 21 04/04/22 08:25 Intake & Output 04/05/22 04/06/22 04/06/22 18:59 06:59 18:59 Intake Total 590 Output Total 700 350 Balance -110 -350 Intake: Oral 590 Output: Urine 700 350 Other: Voiding Method Toilet Toilet Toilet Urinal Urinal Urinal - Exam No acute distress, oriented 3. Room air saturation is 96%. No audible wheezing or use of accessory muscles. HEENT examination is grossly unremarkable. Neck supple. Full range of motion. No adenopathy thyromegaly or neck vein distention. Cardiovascular examination reveals regular rhythm rate. S1-S2 normal. No S3 or S4. No discernible murmur noted. Heart rate 90 bpm. Lungs reveal diffuse bilateral expiratory wheezes and expiratory rhonchi. No crackles. Breath sounds equal bilaterally. There is prolongation on forced maneuver. The patient wheezes and coughs on forced maneuver. Breath sounds are improved. Abdomen soft bowel sounds are heard. No masses or tenderness. Extremities are intact. No cyanosis clubbing or edema. Skin is without rash or lesion. Neurologic examination is brief but nonfocal. - Labs CBC & Chem 7: 04/06/22 07:37 04/06/22 07:37 Labs: Abnormal Lab Results - Last 24 Hours (Table) 04/05/22 04/05/22 04/05/22 Range/Units 11:43 16:54 19:55 WBC (3.8-10.6) k/uL RBC (4.30-5.90) m/uL Hgb (13.0-17.5) gm/dL Hct (39.0-53.0) % Sodium (137-145) mmol/L Carbon Dioxide (22-30) mmol/L BUN (9-20) mg/dL Creatinine (0.66-1.25) mg/dL Glucose (74-99) mg/dL POC Glucose (mg/dL) 285 H 281 H 224 H (75-99) mg/dL 04/06/22 04/06/22 04/06/22 Range/Units 05:38 07:37 07:37 WBC 13.7 H (3.8-10.6) k/uL RBC 3.36 L (4.30-5.90) m/uL Hgb 10.1 L (13.0-17.5) gm/dL Hct 31.7 L (39.0-53.0) % Sodium 136 L (137-145) mmol/L Carbon Dioxide 20 L (22-30) mmol/L BUN 101 H* (9-20) mg/dL Creatinine 3.00 H (0.66-1.25) mg/dL Glucose 214 H (74-99) mg/dL POC Glucose (mg/dL) 287 H (75-99) mg/dL Microbiology - Last 24 Hours (Table) 04/06/22 06:19 Sputum Culture - Preliminary Sputum Assessment and Plan Assessment: Acute exacerbation of COPD. Severe/stage III COPD, with an FEV1 is 47% of predicted. History of metastatic adenocarcinoma of the lung, currently receiving Keytruda. Status post left upper lobe resection for non-small cell lung cancer, and history of wedge resection, for pulmonary nodule, in the right lung for metastatic adenocarcinoma. Recent hospitalization for acute TIA, recovered. Acute on chronic stage III kidney disease. Diabetes mellitus. History of hypertension. History of hyperlipidemia. History of left lower extremity DVT. Degenerative arthritis of the cervical spine. Chronic anemia. Plan: Plan dated 04/04/2022. The patient continues on appropriate medications including updrafts, Perforomist, Pulmicort, and corticosteroids. The patient also remains on a factor X a inhibitor. We will continue to follow and make recommendations were appropriate. Prognosis is guarded. No additional recommendations are made at this time. Labs, x-rays, medications are all reviewed. Plan dated 04/05/2022. The patient is currently on appropriate medications. His COPD exacerbation is improved. Not quite ready for discharge. I believe he'll be ready in the next 24-48 hours. The patient will follow-up with my partner. Labs, x-rays, medications are reviewed. The patient's overall prognosis remains guarded. We will continue to follow the patient make recommendations where appropriate. Labs, x-rays, medications are all reviewed. Plan dated 04/06/2022. The patient continues to improve. I'm hoping that he can be discharged home tomorrow. The patient continues on appropriate bronchodilators and corticosteroids. The patient will follow-up with my partner once he is discharged. No additional recommendations are made. Prognosis remains guarded., X-rays, and medications are all reviewed. We will continue to follow the patient, and make recommendations where appropriate. Time with Patient: Less than 30
[2022-04-06] MEDS: IPRATROPIUM-ALBUTEROL 3 ML NEB INHALATION PRN ×3 (11:28→19:28)
[2022-04-06 11:29] LABS: Glucose,Whole Blood 302 mg/dL (75-99)
--- NOTE | 2022-04-06 15:45 | P.PN ---
Subjective Progress Note Date: 04/06/22 (delayed charting seen at 0945) Principal diagnosis: dyspnea Patient is a 76-year-old male with history of metastatic adenocarcinoma of the lungs , COPD not on home oxygen, diabetes mellitus, CKD IV baseline Cr 2.4 who presented with SOB. In the ER he underwent an extensive evaluation. Chest x- ray showed no acute process. Initial laboratory analysis showed a slight worsening of his creatinine at 3.01 (baseline 2.4). COVID-19 and influenza testing were negative. He was admitted and started on Solu-Medrol, Zithromax, and bronchodilators. Pulmonary was consulted. Nephrology was also consulted. He was initially treated with IV fluids but then became slightly fluid overloaded. Echocardiogram was completed which showed a preserved ejection fraction, LVH, but normal diastolic function. He developed some chest tightness and troponins were checked. They were mildly abnormal however flat and not consistent with acute coronary syndrome and likely related to hypoxia and chronic kidney disease. Patient was evaluated by cardiology who did not recommend further workup for coronary artery disease. Patient seen and examined at bedside. He reports that he is feeling better and breathing better. No chest pain. eating and drinking well. General: non toxic, no distress, appears at stated age Derm: warm, dry Head: atraumatic, normocephalic, symmetric Eyes: EOMI, no lid lag, anicteric sclera Mouth: no lip lesion, mucus membranes moist Cardiovascular: S1S2 reg, no murmur, positive posterior tibial pulse bilateral, Lungs:minimal expiratory wheeze, no accessory muscle use Abdominal: soft, nontender to palpation, no guarding, no appreciable organomegaly Ext: no gross muscle atrophy, no edema, no contractures Neuro: CN II-XI grossly intact, no focal neuro deficits Psych: Alert, oriented, appropriate affect Assessment/Plan: AE COPD- Severe lung ca on Keytruda - pulm recs - steroids, - bronchdilators atypical chest pain- suspect costochondritis elevated troponin, likely due to CKD/hypoxia - cardio recs - Echo with LVH preserved EF and normal diastolic function HERMELINDO on CKD IV - nephro recs - Lasix - no hyrdo on US - follow labs DM 2, hyperglycemia due to steroids - levemir increased - fixed dose increased - SSI - follow BS Chronic: seizures CAD HTN DVT- on xarelto Recent TIA Home in AM if cleared by pulmonary. Active Medications Generic Name Dose Route Start Last Admin Trade Name Freq PRN Reason Stop Dose Admin Acetaminophen 650 mg 04/02/22 09:22 04/02/22 09:35 Acetaminophen Tab 325 Mg Tab PO 650 mg Q4HR PRN Administration Fever and/ or Pain Hydrocodone Bitart/Acetaminophen 1 each 04/03/22 11:59 Hydrocodone/Apap 7.5-325mg 1 Each Tab PO BID PRN Moderate Pain Albuterol/Ipratropium 3 ml 04/01/22 08:00 04/06/22 07:47 Ipratropium-Albuterol 3 Ml Neb INHALATION 3 ml RT-BID NI Administration Albuterol/Ipratropium 3 ml 04/01/22 02:45 04/06/22 15:34 Ipratropium-Albuterol 3 Ml Neb INHALATION 3 ml RT-QID PRN Administration Shortness Of Breath Or Wheezing Amlodipine Besylate 10 mg 04/01/22 21:00 04/05/22 20:58 Amlodipine 10 Mg Tab PO 10 mg HS NI Administration Aspirin 81 mg 04/01/22 21:00 04/05/22 20:57 Aspirin 81 Mg PO 81 mg HS NI Administration Atorvastatin Calcium 20 mg 04/01/22 21:00 04/05/22 20:57 Atorvastatin 20 Mg Tab PO 20 mg HS NI Administration Budesonide 0.5 mg 04/03/22 10:32 04/06/22 07:47 Budesonide 0.5 Mg/2 Ml Nebu INHALATION 0.5 mg RT-BID NI Administration Ergocalciferol 1,250 mcg 04/04/22 09:00 04/04/22 08:36 Ergocalciferol 1,250 Mcg (50,000 Iu) Capsule PO 1,250 mcg TU NI Administration Formoterol Fumarate 20 mcg 04/03/22 10:45 04/06/22 07:47 Formoterol Fumarate 20 Mcg/2 Ml Nebu INHALATION 20 mcg RT-BID NI Administration Furosemide 40 mg 04/05/22 14:45 04/06/22 08:50 Furosemide 10 Mg/Ml 4 Ml Vial IV 40 mg DAILY NI Administration Guaifenesin 600 mg 04/04/22 09:30 04/06/22 08:51 Guaifenesin 600 Mg Tablet.Er PO 600 mg Q12HR NI Administration Sodium Chloride 1,000 mls @ 10 mls/hr 04/01/22 07:00 04/06/22 08:52 Saline 0.9% IV Not Given .Q24H NI Insulin Aspart 0 unit 04/01/22 07:30 04/06/22 12:27 Insulin Aspart (Novolog) 100 Unit/Ml Vial SQ 8 unit [facility] Administration Protocol Insulin Aspart 15 unit 04/06/22 12:30 04/06/22 12:26 Insulin Aspart (Novolog) 100 Unit/Ml Vial SQ 15 unit [facility] Administration Insulin Detemir 60 unit 04/04/22 07:00 04/06/22 06:14 Insulin Detemir (Levemir) 100 Unit/Ml Syr SQ 60 unit DAILY@0700 [facility] Administration Levetiracetam 500 mg 04/01/22 09:00 04/06/22 08:51 Levetiracetam 500 Mg Tab PO 500 mg BID NI Administration Levothyroxine Sodium 25 mcg 04/01/22 06:30 04/06/22 06:15 Levothyroxine 25 Mcg Tab PO 25 mcg DAILY@0630 [facility] Administration Magnesium Oxide 400 mg 04/01/22 21:00 04/05/22 20:57 Magnesium Oxide 400 Mg Tab PO 400 mg HS [facility] Administration Methylprednisolone Sodium Succinate 60 mg 04/03/22 10:00 04/06/22 08:51 Methylprednisolone Sod Succi 125 Mg/2 Ml Vial IV 60 mg Q6H NI Administration Metoprolol Tartrate 25 mg 04/01/22 09:00 04/06/22 08:51 Metoprolol Tartrate 25 Mg Tab PO 25 mg BID NI Administration Pantoprazole Sodium 40 mg 04/01/22 21:00 04/05/22 20:57 Pantoprazole 40 Mg Tablet PO 40 mg HS NI Administration Rivaroxaban 15 mg 04/01/22 21:00 04/05/22 20:57 Rivaroxaban 15 Mg Tab PO 15 mg HS [facility] Administration Protocol Tamsulosin HCl 0.4 mg 04/02/22 17:45 04/06/22 08:51 Tamsulosin 0.4 Mg Cap.Er.24h PO 0.4 mg [id number] NI Administration Trospium 20 mg 04/03/22 21:00 04/06/22 08:51 Trospium Chloride 20 Mg Tablet PO 20 mg BID NI Administration Objective - Vital Signs Vital signs: Vital Signs Temp 97.0 F L 04/06/22 07:33 Pulse 85 04/06/22 15:34 Resp 16 04/06/22 12:00 BP 142/72 04/06/22 12:00 Pulse Ox 96 04/06/22 12:00 FiO2 21 04/04/22 08:25 Intake & Output 04/05/22 04/06/22 04/06/22 18:59 06:59 18:59 Intake Total 590 Output Total 700 350 Balance -110 -350 Intake: Oral 590 Output: Urine 700 350 Other: Voiding Method Toilet Toilet Toilet Urinal Urinal Urinal - Labs CBC & Chem 7: 04/06/22 07:37 04/06/22 07:37 Labs: Abnormal Lab Results - Last 24 Hours (Table) 04/05/22 04/05/22 04/06/22 Range/Units 16:54 19:55 05:38 WBC (3.8-10.6) k/uL RBC (4.30-5.90) m/uL Hgb (13.0-17.5) gm/dL Hct (39.0-53.0) % Sodium (137-145) mmol/L Carbon Dioxide (22-30) mmol/L BUN (9-20) mg/dL Creatinine (0.66-1.25) mg/dL Glucose (74-99) mg/dL POC Glucose (mg/dL) 281 H 224 H 287 H (75-99) mg/dL 04/06/22 04/06/22 04/06/22 Range/Units 07:37 07:37 11:27 WBC 13.7 H (3.8-10.6) k/uL RBC 3.36 L (4.30-5.90) m/uL Hgb 10.1 L (13.0-17.5) gm/dL Hct 31.7 L (39.0-53.0) % Sodium 136 L (137-145) mmol/L Carbon Dioxide 20 L (22-30) mmol/L BUN 101 H* (9-20) mg/dL Creatinine 3.00 H (0.66-1.25) mg/dL Glucose 214 H (74-99) mg/dL POC Glucose (mg/dL) 302 H (75-99) mg/dL Microbiology - Last 24 Hours (Table) 06/02/22 06:19 Sputum Culture - Preliminary Sputum
--- NOTE | 2022-04-06 15:52 | P.PN ---
Subjective Patient is seen for follow-up for acute kidney injury which appears to be mostly prerenal. Status post IV fluids. He was admitted with shortness of breath secondary to COPD exacerbation. Chest x-ray did not show any evidence of CHF on initial admission Patient has been voiding. The patient was transferred to telemetry due to chest pain and elevated troponin which was 0.05. Patient had been complaining of shortness of breath and was started on diuretics. He is also maintained on IV steroids for COPD exacerbation. Overall feeling slightly better today. Objective - Vital Signs Vital signs: Vital Signs Temp 97.0 F L 04/06/22 07:33 Pulse 84 04/06/22 15:43 Resp 16 04/06/22 12:00 BP 142/72 04/06/22 12:00 Pulse Ox 96 04/06/22 12:00 FiO2 21 04/04/22 08:25 Intake & Output 04/05/22 04/06/22 04/06/22 18:59 06:59 18:59 Intake Total 590 Output Total 700 350 Balance -110 -350 Intake: Oral 590 Output: Urine 700 350 Other: Voiding Method Toilet Toilet Toilet Urinal Urinal Urinal - Exam Patient is awake, comfortable, not in any acute distress Examination of the heart S1 and S2 Examination lungs bilateral breath sounds are heard, wheezing heard bilaterally Abdomen is soft nontender Examination of the lower extremities shows no evidence of edema [employer] exam grossly intact - Labs CBC & Chem 7: 04/06/22 07:37 04/06/22 07:37 Labs: Abnormal Lab Results - Last 24 Hours (Table) 04/05/22 04/05/22 04/06/22 Range/Units 16:54 19:55 05:38 WBC (3.8-10.6) k/uL RBC (4.30-5.90) m/uL Hgb (13.0-17.5) gm/dL Hct (39.0-53.0) % Sodium (137-145) mmol/L Carbon Dioxide (22-30) mmol/L BUN (9-20) mg/dL Creatinine (0.66-1.25) mg/dL Glucose (74-99) mg/dL POC Glucose (mg/dL) 281 H 224 H 287 H (75-99) mg/dL 04/06/22 04/06/22 04/06/22 Range/Units 07:37 07:37 11:27 WBC 13.7 H (3.8-10.6) k/uL RBC 3.36 L (4.30-5.90) m/uL Hgb 10.1 L (13.0-17.5) gm/dL Hct 31.7 L (39.0-53.0) % Sodium 136 L (137-145) mmol/L Carbon Dioxide 20 L (22-30) mmol/L BUN 101 H* (9-20) mg/dL Creatinine 3.00 H (0.66-1.25) mg/dL Glucose 214 H (74-99) mg/dL POC Glucose (mg/dL) 302 H (75-99) mg/dL Microbiology - Last 24 Hours (Table) 04/06/22 06:19 Sputum Culture - Preliminary Sputum Assessment and Plan Assessment: 1. Acute kidney injury, prerenal currently nonoliguric. Check UA. No obstruction noted on ultrasound. Renal function improved since admission. The B UN is disproportionately elevated secondary to steroids. 2. Chronic kidney disease NKF stage IV with serum creatinine 1.7-2.1 mg/dL dacosta nolan recent creatinine was 2.4 in February. Etiology is nephrosclerosis. UA showed trace protein previously 3. COPD exacerbation 4. Hypertension with CK D 5. History of seizures maintained on Keppra 6. Volume overload which is new, currently improved Plan: Continue with IV Lasix Continue with steroids as per pulmonary Repeat labs in a.m.
[2022-04-06 16:32] LABS: Glucose,Whole Blood 235 mg/dL (75-99)
[2022-04-06 20:38] LABS: Glucose,Whole Blood 163 mg/dL (75-99)
[2022-04-06] MEDS ORDERED: MELATONIN 3 MG TABLET PO PRN (20:53)
[2022-04-06] MEDS ORDERED: MELATONIN 3 MG TABLET PO ONE (21:39)
[2022-04-06] MEDS: amLODIPine 10 MG TAB PO SCH (22:12)
[2022-04-06] MEDS: ASPIRIN 81 MG PO SCH (22:13)
[2022-04-06] MEDS: MAGNESIUM OXIDE 400 MG TAB PO SCH (22:13)
[2022-04-06] MEDS: ATORVASTATIN 20 MG TAB PO SCH (22:13)
[2022-04-06] MEDS: RIVAROXABAN 15 MG TAB PO SCH (22:14)
[2022-04-06] MEDS: PANTOPRAZOLE 40 MG TABLET PO SCH (22:14)
[2022-04-07] MEDS: methylPREDNISolone SOD SUCCI 125 MG/2 ML VIAL IV SCH ×2 (03:51→08:48)
[2022-04-07 05:22] VITALS: RESP 18
[2022-04-07 06:31] LABS: Glucose,Whole Blood 114 mg/dL (75-99)
[2022-04-07] MEDS: INSULIN ASPART (NovoLOG) 100 UNIT/ML VIAL SQ SCH ×4 (06:34→11:55)
[2022-04-07] MEDS: INSULIN DETEMIR (LEVEMIR) 100 UNIT/ML SYR SQ SCH (06:48)
[2022-04-07] MEDS: LEVOTHYROXINE 25 MCG TAB PO SCH (06:48)
[2022-04-07 08:47] VITALS: TEMP 97.9
[2022-04-07] MEDS: levETIRAcetam 500 MG TAB PO SCH (08:47)
[2022-04-07] MEDS: TAMSULOSIN 0.4 MG CAP.ER.24H PO SCH (08:47)
[2022-04-07] MEDS: FUROSEMIDE 10 MG/ML 4 ML VIAL IV SCH (08:47)
[2022-04-07] MEDS: METOPROLOL TARTRATE 25 MG TAB PO SCH (08:47)
[2022-04-07] MEDS: TROSPIUM CHLORIDE 20 MG TABLET PO SCH (08:48)
[2022-04-07] MEDS: FORMOTEROL FUMARATE 20 MCG/2 ML NEBU INHALATION SCH (08:50)
[2022-04-07] MEDS: BUDESONIDE 0.5 MG/2 ML NEBU INHALATION SCH (08:50)
[2022-04-07] MEDS: IPRATROPIUM-ALBUTEROL 3 ML NEB INHALATION SCH (08:50)
[2022-04-07] MEDS: guaiFENesin 600 MG TABLET.ER PO SCH (08:51)
--- NOTE | 2022-04-07 10:16 | P.PN ---
Subjective Patient is seen for follow-up for acute kidney injury which appears to be mostly prerenal. Status post IV fluids. He was admitted with shortness of breath secondary to COPD exacerbation. Chest x-ray did not show any evidence of CHF on initial admission Patient has been voiding. The patient was transferred to telemetry due to chest pain and elevated troponin which was 0.05. Patient had been complaining of shortness of breath and was started on diuretics. He is also maintained on IV steroids for COPD exacerbation. Overall feeling slightly better today. Cleared by pulmonology to be discharged Objective - Vital Signs Vital signs: Vital Signs Temp 97.9 F 04/07/22 08:44 Pulse 79 04/07/22 09:27 Resp 18 04/07/22 08:44 BP 151/66 04/07/22 08:44 Pulse Ox 95 04/07/22 08:44 FiO2 21 04/04/22 08:25 Intake & Output 04/06/22 04/07/22 04/07/22 18:59 06:59 18:59 Output Total 300 300 Balance -300 -300 Weight 86.5 kg Output: Urine 300 300 Other: Voiding Method Toilet Toilet Urinal Urinal # Voids 2 1 - Exam Patient is awake, comfortable, not in any acute distress Examination of the heart S1 and S2 Examination lungs bilateral breath sounds are heard, wheezing heard bilaterally Abdomen is soft nontender Examination of the lower extremities shows no evidence of edema RESTORATIVE ART EMBALMER exam grossly intact - Labs CBC & Chem 7: 04/06/22 07:37 04/06/22 07:37 Labs: Abnormal Lab Results - Last 24 Hours (Table) 04/06/22 04/06/22 04/06/22 Range/Units 11:27 16:27 20:11 POC Glucose (mg/dL) 302 H 235 H 163 H (75-99) mg/dL 04/07/22 Range/Units 05:57 POC Glucose (mg/dL) 114 H (75-99) mg/dL Microbiology - Last 24 Hours (Table) 04/06/22 06:19 Gram Stain - Preliminary Sputum Sputum Culture - Preliminary Assessment and Plan Assessment: 1. Acute kidney injury, prerenal currently nonoliguric. Check UA. No obs truction noted on ultrasound. Renal function improved since admission. The B UN is disproportionately elevated secondary to steroids. 2. Chronic kidney disease NKF stage IV with serum creatinine 1.7-2.1 mg/dL however recent creatinine was 2.4 in February. Etiology is nephrosclerosis. UA showed trace protein previously 3. COPD exacerbation 4. Hypertension with CK D 5. History of seizures maintained on Keppra 6. Volume overload which is new, currently improved Plan: Patient can be discharged from nephrology standpoint. Continue with Lasix twice a day for a couple of days and then 40 mg daily thereafter. Check labs in 4-5 days post discharge Follow-up in the office in one week.
[2022-04-07 11:36] LABS: Glucose,Whole Blood 153 mg/dL (75-99)
[2022-04-07 11:54] VITALS: BP 141/71; PULSE 81
--- NOTE | 2022-04-07 13:44 | P.PN ---
Subjective Progress Note Date: 04/07/22 This a very pleasant 75-year-old gentleman who follows with Dr. Boyer as his primary care provider. He has a history of COPD, CVA/TIA, diabetes Vasile, DVT maintained on Xarelto, hyperlipidemia, hypertension, myocardial infarction, osteoarthritis, seizure disorder. He also has a history of left lung cancer with left upper lobectomy/IV chemotherapy and also diagnosed with a right lower lobe lung cancer in 2019 status post wedge resection. He remains on Keytruda. Note that the patient's most recent PET scan from 2021 showed no evidence of any active disease with disease recurrence at this point, the patient seems to be in remission. No known metastasis to the brain. The patient was in the hospital recently for a TIA in the neuro workup was been negative. The patient comes in to the hospital for worsening shortness of breath. He had increased dyspnea cough chest tightness and wheezing. He was Hospital as for acute septic exacerbation. Chest x-ray is not showing any acute abnormalities and this was consistent with COPD. At the same time, the patient is known to have chronic kidney disease stage IV with a baseline creatinine ranging between 1.7 and 2 and the most recent creatinine was up to 2.49 and later on a creatinine on admission was up to 3.0. Nephrology consult is obtained and the patient is being gently hydrated for now. He denies having any other complaints. White cell count is at 9.4 with hemoglobin 11.7, normal coagulation profile, COVID 19 testing is been negative, influenza screen has been negative On today's evaluation of 04/02/2022, the patient is slightly improved and the patient continues to bronchospastic and wheezy. He continues to BE short of breath and this is significant for COPD exacerbation. As mentioned, his lung cancer is in remission for now as the patient is taking immunotherapy. At the same time, the patient has developed a component of steroid-induced hyperglycemia. Yesterday, he was started on Levemir 20 units and a sliding sca le insulin coverage. Blood sugar is elevated today. He is on room air oxygen. No other complaints otherwise. No chest pain. No hemoptysis. No pleurisy. 04/03/2022, the patient is having more difficulties in breathing and is more bronchospastic and wheezy. Blood sugar remains elevated at the patient's current insulin Medrol 40 mg every 8 hours. He is also receiving DuoNeb neb treatments around the clock. No chest pain. No angina. No palpitations. No other complaints. IV fluids are in the form of normal saline at the rate of 75 mL an hour. Repeat labs from today are still pending. Creatinine from yesterday was at 2.9. Blood sugar from today's at 305. The patient himself remains on room air oxygen. Progress note dated 04/04/2022. This is a 76-year-old male who was seen in room 268. He typically sees one of my partners. He has a history of COPD, and is admitted with a diagnosis of COPD exacerbation. He also has a history of lung cancer, which is in remission, he is currently taking immunotherapy. The patient feels like his breathing is a bit better. He remains on appropriate medications. White count 15.1, hemoglobin 9.4, hematocrit 29.6, platelet count normal. Sodium 137, potassium 4.5, chlorides 109, CO2 17, BUN 89, and creatinine 3.08. Chest x-ray show some minimal left basilar atelectasis. Progress note dated 04/05/2022. 76-year-old male, again seen in room 368. The patient is doing a bit better today. He is being treated for a COPD exacerbation. The patient does have a history of lung cancer, which is apparently in remission. The patient denies any worsening shortness of breath, and feels like his breathing is improved. White count 12.9, over 9.5, hematocrit 29.8, and platelet count is normal. Sodium is 138, potassium 4.6, chlorides 108, CO2 18, anion gap 12, BUN 98, and creatinine 3.0. Progress note dated 04/06/2022. 76-year-old male, seen in room 368. The patient is doing better today. He was admitted with a COPD exacerbation. His breathing is improved. He is much less short of breath. He does continue to have some cough, which is nonproductive, and he does continue to wheeze. His symptoms are certainly worse when he is up exerting himself. White count 13.7, hemoglobin 10.1, hematocrit 31.7, and platelet count 232,000. Sodium 136, potassium 4.1, chlorides 105, CO2 20, BUN 101, and creatinine 3. The patient is seen today 04/07/2022 in follow-up on the selective care unit. He is currently sitting up at the bedside. Awake and alert in no acute distress. Maintaining good O2 saturations in the mid 90s on room air. He's been afebrile. Hemodynamically stable. Sputum culture pending. Glucose 153. He is continued on DuoNeb inhalations, Pulmicort and Perforomist inhalations, IV Solu-Medrol. Remains on IV diuretics. Anticoagulate with Xarelto. Objective - Vital Signs Vital signs: Vital Signs Temp 97.9 F 04/07/22 08:44 Pulse 81 04/07/22 11:53 Resp 18 04/07/22 11:53 BP 141/71 04/07/22 11:53 Pulse Ox 97 04/07/22 11:53 FiO2 21 04/04/22 08:25 Intake & Output 04/06/22 04/07/22 04/07/22 18:59 06:59 18:59 Output Total 300 300 Balance -300 -300 Weight 86.5 kg Output: Urine 300 300 Other: Voiding Method Toilet Toilet Toilet Urinal Urinal Urinal # Voids 2 1 - Exam GENERAL EXAM: Alert, pleasant 76-year-old male patient, on room air, comfortable in no apparent distress. HEAD: Normocephalic. EYES: Normal reaction of pupils, equal size. NOSE: Clear with pink turbinates. THROAT: No erythema or exudates. NECK: No masses, no JVD. CHEST: No chest wall deformity. LUNGS: Equal air entry with no crackles, wheeze, rhonchi or dullness. CVS: S1 and S2 normal with no audible murmur, regular rhythm. ABDOMEN: No hepatosplenomegaly, normal bowel sounds, no guarding or rigidity. SPINE: No scoliosis or deformity SKIN: No rashes CENTRAL NERVOUS SYSTEM: No focal deficits, tone is normal in all 4 extremities. EXTREMITIES: There is no peripheral edema. No clubbing, no cyanosis. Peripheral pulses are intact. - Labs CBC & Chem 7: 04/06/22 07:37 04/06/22 07:37 Labs: Abnormal Lab Results - Last 24 Hours (Table) 04/06/22 04/06/22 04/07/22 Range/Units 16:27 20:11 05:57 POC Glucose (mg/dL) 235 H 163 H 114 H (75-99) mg/dL 04/07/22 Range/Units 11:34 POC Glucose (mg/dL) 153 H (75-99) mg/dL Microbiology - Last 24 Hours (Table) 04/06/22 06:19 Gram Stain - Preliminary Sputum Sputum Culture - Preliminary Assessment and Plan Assessment: Acute exacerbation of COPD. Severe/stage III COPD, with an FEV1 is 47% of predicted. History of metastatic adenocarcinoma of the lung, currently receiving Keytruda. Status post left upper lobe resection for non-small cell lung cancer, and history of wedge resection, for pulmonary nodule, in the right lung for metastatic adenocarcinoma. Recent hospitalization for acute TIA, recovered. Acute on chronic stage III kidney disease. Diabetes mellitus. History of hypertension. History of hyperlipidemia. History of left lower extremity DVT. Degenerative arthritis of the cervical spine. Chronic anemia. Plan: The patient was seen and evaluated Stable and on room air Cleared for discharge from the pulmonary standpoint Continue his home pulmonary medications Complete a prednisone taper starting at 40 mg daily for 4 days Follow-up in the office in 1 week I have personally seen and examined the patient, performed the documentation and the assessment and plan as written. Number of minutes spent on the visit: 10.
--- NOTE | 2022-04-07 20:05 | P.DS ---
Providers Date of admission: 04/01/22 02:37 Expected date of discharge: 04/07/22 Attending physician: John Pina MD Consults: 04/01/22 02:37 Consult Physician Routine Consulting Provider: Mary Dominique Consult Reason/Comments: Acute on chronic kidney disease Do you want consulting provider notified?: Yes 04/02/22 07:42 Consult Physician Urgent Consulting Provider: Noam Crane Consult Reason/Comments: Chest Pain, Elevated Trops Do you want consulting provider notified?: Yes Primary care physician: Renzo Boyer Assessment: Discharge Diagnosis: AE COPD- Severe lung ca on Keytruda atypical chest pain- suspect costochondritis elevated troponin, likely due to CKD/hypoxia HERMELINDO on CKD IV DM 2, hyperglycemia due to steroids seizures CAD HTN DVT- on xarelto Recent TIA Hospital Course: Patient is a 76-year-old male with history of metastatic adenocarcinoma of the lungs , COPD not on home oxygen, diabetes mellitus, CKD IV baseline Cr 2.4 who presented with SOB. In the ER he underwent an extensive evaluation. Chest x- ray showed no acute process. Initial laboratory analysis showed a slight wor sening of his creatinine at 3.01 (baseline 2.4). COVID-19 and influenza testing were negative. He was admitted and started on Solu-Medrol, Zithromax, and bronchodilators. Pulmonary was consulted. Nephrology was also consulted. He was initially treated with IV fluids but then became slightly fluid overloaded. Echocardiogram was completed which showed a preserved ejection fraction, LVH, but normal diastolic function. He developed some chest tightness and troponins were checked. They were mildly abnormal however flat and not consistent with acute coronary syndrome and likely related to hypoxia and chronic kidney disease. Patient was evaluated by cardiology who did not recommend further workup for coronary artery disease. He slowly improved and breathing was back to baseline. He was determined stable for discharge home. Follow-up Dr. Boyer, Dr. Scruggs, and cardilogy, resume home inhaler and nebulizer regiment, Prednisone 60 mg dialy for 5 days Patient seen and examined at bedside. Feeling well, breathing is at baseline, wants to go home. Vital signs reviewed and stable. General: non toxic, no distress, appears at stated age Derm: warm, dry Head: atraumatic, normocephalic, symmetric Eyes: EOMI, no lid lag, anicteric sclera Mouth: no lip lesion, mucus membranes moist Cardiovascular: S1S2 reg, no murmur, positive posterior tibial pulse bilateral, Lungs: decrease bilateral, no rhonchi, no rales , no accessory muscle use Ext: no gross muscle atrophy, no edema, no contractures Psych: Alert, oriented, appropriate affect A total of 37 minutes of time were spent preparing this complex discharge summary . Patient Condition at Discharge: Fair Plan - Discharge Summary New Discharge Prescriptions: New Tamsulosin [Flomax] 0.4 mg PO PC-BRKFST #30 cap guaiFENesin [Mucinex] 600 mg PO Q12HR tab predniSONE [Deltasone] 60 mg PO DAILY #15 tab Continue Simvastatin [Zocor] 40 mg PO HS amLODIPine [Norvasc] 10 mg PO HS levETIRAcetam [Keppra] 500 mg PO BID Metoprolol Tartrate 25 mg PO BID #60 tab Omeprazole 20 mg PO HS Levothyroxine Sodium [Synthroid] 25 mcg PO DAILY@0630 30 Days #30 tab Rivaroxaban [Xarelto] 15 mg PO HS Solifenacin Succinate [Vesicare] 10 mg PO HS Ergocalciferol [Vitamin D2 (1250 Mcg = 72997 Iu)] 1,250 mcg PO TU Insulin Degludec [Tresiba Flextouch U-100 Pen] 15 units SQ HS Aspirin [Adult Low Dose Aspirin EC] 81 mg PO HS Magnesium Oxide [Mag-Ox] 400 mg PO HS Furosemide [Lasix] 40 mg PO DAILY Ipratropium-Albuterol Nebulize [Duoneb 0.5 mg-3 mg/3 ml Soln] 3 ml INHALATION RT-BID Insulin Aspart [NovoLOG Flexpen] See Protocol SQ AC-TID HYDROcodone/APAP 7.5-325MG [[place] 7.5-325] 1 tab PO BID PRN PRN Reason: Pain Discharge Medication List Simvastatin [Zocor] 40 mg PO HS 07/30/19 [History] amLODIPine [Norvasc] 10 mg PO HS 07/30/19 [History] levETIRAcetam [Keppra] 500 mg PO BID 07/30/19 [History] Metoprolol Tartrate 25 mg PO BID #60 tab 09/10/19 [Rx] Omeprazole 20 mg PO HS 07/06/20 [History] Levothyroxine Sodium [Synthroid] 25 mcg PO DAILY@0630 30 Days #30 tab 07/08/20 [Rx] Rivaroxaban [Xarelto] 15 mg PO HS 01/12/21 [History] Solifenacin Succinate [Vesicare] 10 mg PO HS 01/12/21 [History] Furosemide [Lasix] 40 mg PO DAILY 06/03/21 [History] Ipratropium-Albuterol Nebulize [Duoneb 0.5 mg-3 mg/3 ml Soln] 3 ml INHALATION RT-BID 10/14/21 [History] Aspirin [Adult Low Dose Aspirin EC] 81 mg PO HS 02/27/22 [History] Ergocalciferol [Vitamin D2 (1250 Mcg = 42295 Iu)] 1,250 mcg PO TU 02/27/22 [History] Insulin Aspart [NovoLOG Flexpen] See Protocol SQ AC-TID 02/27/22 [History] Insulin Degludec [Tresiba Flextouch U-100 Pen] 15 units SQ HS 02/27/22 [History] Magnesium Oxide [Mag-Ox] 400 mg PO HS 02/27/22 [History] HYDROcodone/APAP 7.5-325MG [[place] 7.5-325] 1 tab PO BID PRN 04/01/22 [History] Tamsulosin [Flomax] 0.4 mg PO PC-BRKFST #30 cap 04/07/22 [Rx] guaiFENesin [Mucinex] 600 mg PO Q12HR tab 04/07/22 [Rx] predniSONE [Deltasone] 60 mg PO DAILY #15 tab 04/07/22 [Rx] Follow up Appointment(s)/Referral(s): Renzo Boyer MD [Primary Care Provider] - 04/12/22 10:45 am Mary Dominique MD [STAFF PHYSICIAN] - 04/25/22 10:40 am Carolann Chacon MD [STAFF PHYSICIAN] - 2 Weeks (office will call you to make an appointment ) Patient Instructions/Handouts: Acute Kidney Injury (DC), COPD (Chronic Obstructive Pulmonary Disease) (DC) Activity/Diet/Wound Care/Special Instructions: Activity: as tolerated Diet: carb consistent Special Instructions: Dr. Boyer will continue your prednisone at decrease it at your follow-up Resume your home inhaler and nebulizer regiment Discharge Disposition: HOME WITH HOME HEALTH SERVICES
== END 2022-04-07 14:07 | disposition home health service (06) | DRG 190 ==
LOC: EC 18:27 → 5NMEDONC 04-01 02:37 → 4SSUR 04-01 13:41 → 3SCARD 04-02 06:48
PROVIDERS: ADMIT Internal Medicine; ATTEND Internal Medicine
DX: J44.1 Chronic obstructive pulmonary disease with (acute) exacerbation (principal); J96.21 Acute and chronic respiratory failure with hypoxia; N17.9 Acute kidney failure, unspecified; N18.4 Chronic kidney disease, stage 4 (severe); C34.90 Malignant neoplasm of unspecified part of unspecified bronchus or lung; I12.9 Hypertensive chronic kidney disease with stage 1 through stage 4 chronic kidney disease, or unspecified chronic kidney disease; I25.10 Atherosclerotic heart disease of native coronary artery without angina pectoris; I25.2 Old myocardial infarction; M47.812 Spondylosis without myelopathy or radiculopathy, cervical region; N40.0 Benign prostatic hyperplasia without lower urinary tract symptoms; T38.0X5A Adverse effect of glucocorticoids and synthetic analogues, initial encounter; E11.22 Type 2 diabetes mellitus with diabetic chronic kidney disease; E11.65 Type 2 diabetes mellitus with hyperglycemia; D63.1 Anemia in chronic kidney disease; Z79.4 Long term (current) use of insulin; E78.5 Hyperlipidemia, unspecified; E87.70 Fluid overload, unspecified; G89.29 Other chronic pain; G40.909 Epilepsy, unspecified, not intractable, without status epilepticus; R63.4 Abnormal weight loss; K59.09 Other constipation; M94.0 Chondrocostal junction syndrome [Tietze]; R77.8 Other specified abnormalities of plasma proteins; Z79.01 Long term (current) use of anticoagulants; Z79.52 Long term (current) use of systemic steroids; Z79.82 Long term (current) use of aspirin; Z79.890 Hormone replacement therapy; Z79.899 Other long term (current) drug therapy; Z83.3 Family history of diabetes mellitus; Z86.718 Personal history of other venous thrombosis and embolism; Z86.73 Personal history of transient ischemic attack (TIA), and cerebral infarction without residual deficits; Z90.49 Acquired absence of other specified parts of digestive tract; Z98.890 Other specified postprocedural states; Z90.89 Acquired absence of other organs; Z28.310 Unvaccinated for COVID-19; Z20.822 Contact with and (suspected) exposure to COVID-19; Z68.25 Body mass index [BMI] 25.0-25.9, adult; Z90.2 Acquired absence of lung [part of]; Z98.42 Cataract extraction status, left eye; Z98.41 Cataract extraction status, right eye
CPT/HCPCS: 36415; 71045; 71046; 76770; 80048; 80053; 81003; 83605; 83735; 83880; 84484; 85025; 85027; 85610; 85730; 87070; 87077; 87186; 87205; 87502; 87635; 93005; 93306; 94640; 94760; 99285

== ENCOUNTER 2022-04-25 10:59 | Inpatient (IN) | payer MEDICARE, OTHER ==
--- NOTE | 2022-04-25 11:20 | ED ---
General Adult HPI - General Stated complaint: AMS Time Seen by Provider: 04/25/22 11:10 Source: patient, RN notes reviewed, old records reviewed - History of Present Illness Initial comments: This is a 76-year-old male who presents emergency department via EMS according to EMS the patient went to a restaurant where his daughters work and he was in and out of consciousness while sitting at table and eventually started to come t o and he vomited times one. After that the daughter states he was a little confused and for EMS they stated he was confused initially but came back to his baseline by the time they get to the emergency department. Patient currently has no complaints per patient denies shortness of breath difficulty breathing or chest pain. Patient denies any palpitations. Patient denies any patient denies numbness weakness. Patient denies lightheadedness or dizziness. Patient denies any abdominal pain patient denies nausea vomiting diarrhea. States he does note that his legs a little more edematous than normal. - Related Data Home Medications Medication Instructions Recorded Confirmed Simvastatin [Zocor] 40 mg PO HS 07/30/19 04/25/22 amLODIPine [Norvasc] 10 mg PO HS 07/30/19 04/25/22 levETIRAcetam [Keppra] 500 mg PO BID 07/30/19 04/25/22 Omeprazole 20 mg PO HS 07/06/20 04/25/22 Rivaroxaban [Xarelto] 15 mg PO HS 01/12/21 04/25/22 Solifenacin Succinate [Vesicare] 10 mg PO HS 01/12/21 04/25/22 Furosemide [Lasix] 40 mg PO DAILY 06/03/21 04/25/22 Ipratropium-Albuterol Nebulize 3 ml INHALATION RT-BID 10/14/21 04/25/22 [Duoneb 0.5 mg-3 mg/3 ml Soln] Aspirin [Adult Low Dose Aspirin EC] 81 mg PO HS 02/27/22 04/25/22 Ergocalciferol [Vitamin D2 (1250 1,250 mcg PO TU 02/27/22 04/25/22 Mcg = 20294 Iu)] Insulin Aspart [NovoLOG Flexpen] See Protocol SQ AC-TID 02/27/22 04/25/22 Insulin Degludec [Tresiba 15 units SQ HS 02/27/22 04/25/22 Flextouch U-100 Pen] Magnesium Oxide [Mag-Ox] 400 mg PO HS 02/27/22 04/25/22 HYDROcodone/APAP 7.5-325MG [[place] 1 tab PO BID PRN 04/01/22 04/25/22 7.5-325] Previous Rx's Medication Instructions Recorded Metoprolol Tartrate 25 mg PO BID #60 tab 09/10/19 Levothyroxine Sodium [Synthroid] 25 mcg PO DAILY@0630 30 Days #30 07/08/20 tab Allergies Allergy/AdvReac Type Severity Reaction Status Date / Time No Known Allergies Allergy Verified 04/25/22 12:13 Review of Systems ROS Statement: Those systems with pertinent positive or pertinent negative responses have been documented in the HPI. ROS Other: All systems not noted in ROS Statement are negative. Past Medical History Past Medical History: Cancer, COPD, CVA/TIA, Diabetes Mellitus, Hyperlipidemia, Hypertension, Renal Disease, Seizure Disorder Additional Past Medical History / Comment(s): 07/2018 L lung cancer with left up per lobectomy., R lower lobe cancer in August 2019 and had wedge resection and immunotherapy., bronchitis, TIA and seizure after bronchoscopy in 2017, DVT L leg, IDDM type II, chronic cervical/back pain, BPH, stage III kidney disease, chronic constipation ., dysphagia with 11 # wt loss., states spot on spine L-3., states he thinks he has a sore on his tailbone., hx of carotid stenosis with stent 06/03/2021. Last Myocardial Infarction Date:: 05/24/12 History of Any Multi-Drug Resistant Organisms: None Reported Past Surgical History: Back Surgery, Cholecystectomy, Heart Catheterization, Heart Catheterization With Stent, Hernia Repair, Tonsillectomy Additional Past Surgical History / Comment(s): 2018 Bronchoscopy with bx, 2017 L upper lobectomy at [facility], August 2019 R lower lung wedge resection, low back surgery, umbilical hernia repair, bilateral cataract removals ., right transcarotid artery revasculazation with stent May 2021 Past Anesthesia/Blood Transfusion Reactions: Previous Problems w/ Anesthesia Additional Past Anesthesia/Blood Transfusion Reaction / Comment(s): Seizure and mini stroke following lung biopsy Date of Last Stent Placement:: 06/03/2021-CAROTID STENT Smoking Status: Former smoker - Past Family History Mother Family Medical History: No Reported History Additional Family Medical History / Comment(s): Mother was healthy Father Family Medical History: Diabetes Mellitus Additional Family Medical History / Comment(s): Father of diabetes at the age of 83 yrs. General Exam - General Exam Comments Initial Comments: GENERAL: Patient is well-developed and well-nourished. Patient is nontoxic and well- hydrated and is in no acute distress. ENT: Neck is soft and supple. No significant lymphadenopathy is noted. Oropharynx is clear. Moist mucous membranes. Neck has full range of motion without eliciting any pain. EYES: The sclera were anicteric and conjunctiva were pink and moist. Extraocular movements were intact and pupils were equal round and reactive to light. Eyelids were unremarkable. PULMONARY: Patient has crackles in the bilateral bases. CARDIOVASCULAR: There is a regular rate and rhythm without any murmurs gallops or rubs. ABDOMEN: Soft and nontender with normal bowel sounds. No palpable organomegaly was noted. There is no palpable pulsatile mass. SKIN: Skin is clear with no lesions or rashes and otherwise unremarkable. NEUROLOGIC: Patient is alert and oriented x3. Cranial nerves II through XII are grossly intact. Motor and sensory are also intact. Normal speech, volume and content. Symmetrical smile. MUSCULOSKELETAL: Normal extremities with adequate strength and full range of motion. Patient has edema to bilateral legs LYMPHATICS: No significant lymphadenopathy is noted PSYCHIATRIC: Normal psychiatric evaluation. 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 Patient's EKG shows no ST segment elevation or depression. Chest x-ray shows no acute abnormality. I spoke with some physicians agreed to admit the patient admitted the patient I wrote admitting orders. - Lab Data Result diagrams: 04/25/22 11:15 04/25/22 11:15 Lab Results 04/25/22 04/25/22 04/25/22 Range/Units 11:15 11:15 11:15 WBC 3.9 (3.8-10.6) k/uL RBC 2.95 L (4.30-5.90) m/uL Hgb 9.4 L (13.0-17.5) gm/dL Hct 28.8 L (39.0-53.0) % MCV 97.6 (80.0-100.0) fL MCH 31.8 (25.0-35.0) pg MCHC 32.6 (31.0-37.0) g/dL RDW 16.5 H (11.5-15.5) % Plt Count 114 L D (150-450) k/uL MPV 8.3 Neutrophils % 83 % Lymphocytes % 6 % Monocytes % 7 % Eosinophils % 1 % Basophils % 0 % Neutrophils # 3.2 (1.3-7.7) k/uL Lymphocytes # 0.2 L (1.0-4.8) k/uL Monocytes # 0.3 (0-1.0) k/uL Eosinophils # 0.1 (0-0.7) k/uL Basophils # 0.0 (0-0.2) k/uL Manual Slide Review Performed Poikilocytosis (manual Present Anisocytosis Slight Macrocytosis Slight PT 11.6 (9.0-12.0) sec INR 1.1 (<1.2) APTT 26.8 (22.0-30.0) sec Sodium 138 (137-145) mmol/L Potassium 4.8 (3.5-5.1) mmol/L Chloride 106 (98-107) mmol/L Carbon Dioxide 23 (22-30) mmol/L Anion Gap 9 mmol/L BUN 78 H (9-20) mg/dL Creatinine 2.85 H (0.66-1.25) mg/dL Est GFR (CKD-EPI)AfAm 24 (>60 ml/min/1.73 sqM) Est GFR (CKD-EPI)NonAf 21 (>60 ml/min/1.73 sqM) Glucose 238 H (74-99) mg/dL POC Glucose (mg/dL) (70-110) mg/dL POC Glu Property Management Supervisor ID Calcium 7.9 L (8.4-10.2) mg/dL Total Bilirubin 0.4 (0.2-1.3) mg/dL AST 27 (17-59) U/L ALT 32 (4-49) U/L Alkaline Phosphatase 121 (38-126) U/L Troponin I (0.000-0.034) ng/mL NT-Pro-B Natriuret Pep pg/mL Total Protein 5.2 L (6.3-8.2) g/dL Albumin 3.1 L (3.5-5.0) g/dL Urine Color Urine Appearance (Clear) Urine pH (5.0-8.0) Ur Specific [place] (1.001-1.035) Urine Protein (Negative) Urine Glucose (UA) (Negative) Urine Ketones (Negative) Urine Blood (Negative) Urine Nitrite (Negative) Urine Bilirubin (Negative) Urine Urobilinogen (<2.0) mg/dL Ur Leukocyte Esterase (Negative) Urine RBC (0-5) /hpf Urine WBC (0-5) /hpf Hyaline Casts (0-2) /lpf 04/25/22 04/25/22 04/25/22 Range/Units 11:15 11:15 12:22 WBC (3.8-10.6) k/uL RBC (4.30-5.90) m/uL Hgb (13.0-17.5) gm/dL Hct (39.0-53.0) % MCV (80.0-100.0) fL MCH (25.0-35.0) pg MCHC (31.0-37.0) g/dL RDW (11.5-15.5) % Plt Count (150-450) k/uL MPV Neutrophils % % Lymphocytes % % Monocytes % % Eosinophils % % Basophils % % Neutrophils # (1.3-7.7) k/uL Lymphocytes # (1.0-4.8) k/uL Monocytes # (0-1.0) k/uL Eosinophils # (0-0.7) k/uL Basophils # (0-0.2) k/uL Manual Slide Review Poikilocytosis (manual Anisocytosis Macrocytosis PT (9.0-12.0) sec INR (<1.2) APTT (22.0-30.0) sec Sodium (137-145) mmol/L Potassium (3.5-5.1) mmol/L Chloride (98-107) mmol/L Carbon Dioxide (22-30) mmol/L Anion Gap mmol/L BUN (9-20) mg/dL Creatinine (0.66-1.25) mg/dL Est GFR (CKD-EPI)AfAm (>60 ml/min/1.73 sqM) Est GFR (CKD-EPI)NonAf (>60 ml/min/1.73 sqM) Glucose (74-99) mg/dL POC Glucose (mg/dL) 259 H (70-110) mg/dL POC Glu Property Management Supervisor ID Leticia Enamorado Calcium (8.4-10.2) mg/dL Total Bilirubin (0.2-1.3) mg/dL AST (17-59) U/L ALT (4-49) U/L Alkaline Phosphatase (38-126) U/L Troponin I 0.036 H* (0.000-0.034) ng/mL NT-Pro-B Natriuret Pep 274 pg/mL Total Protein (6.3-8.2) g/dL Albumin (3.5-5.0) g/dL Urine Color Urine Appearance (Clear) Urine pH (5.0-8.0) Ur Specific [place] (1.001-1.035) Urine Protein (Negative) Urine Glucose (UA) (Negative) Urine Ketones (Negative) Urine Blood (Negative) Urine Nitrite (Negative) Urine Bilirubin (Negative) Urine Urobilinogen (<2.0) mg/dL Ur Leukocyte Esterase (Negative) Urine RBC (0-5) /hpf Urine WBC (0-5) /hpf Hyaline Casts (0-2) /lpf 04/25/22 Range/Units 12:54 WBC (3.8-10.6) k/uL RBC (4.30-5.90) m/uL Hgb (13.0-17.5) gm/dL Hct (39.0-53.0) % MCV (80.0-100.0) fL MCH (25.0-35.0) pg MCHC (31.0-37.0) g/dL RDW (11.5-15.5) % Plt Count (150-450) k/uL MPV Neutrophils % % Lymphocytes % % Monocytes % % Eosinophils % % Basophils % % Neutrophils # (1.3-7.7) k/uL Lymphocytes # (1.0-4.8) k/uL Monocytes # (0-1.0) k/uL Eosinophils # (0-0.7) k/uL Basophils # (0-0.2) k/uL Manual Slide Review Poikilocytosis (manual Anisocytosis Macrocytosis PT (9.0-12.0) sec INR (<1.2) APTT (22.0-30.0) sec Sodium (137-145) mmol/L Potassium (3.5-5.1) mmol/L Chloride (98-107) mmol/L Carbon Dioxide (22-30) mmol/L Anion Gap mmol/L BUN (9-20) mg/dL Creatinine (0.66-1.25) mg/dL Est GFR (CKD-EPI)AfAm (>60 ml/min/1.73 sqM) Est GFR (CKD-EPI)NonAf (>60 ml/min/1.73 sqM) Glucose (74-99) mg/dL POC Glucose (mg/dL) (70-110) mg/dL POC Glu Property Management Supervisor ID Calcium (8.4-10.2) mg/dL Total Bilirubin (0.2-1.3) mg/dL AST (17-59) U/L ALT (4-49) U/L Alkaline Phosphatase (38-126) U/L Troponin I (0.000-0.034) ng/mL NT-Pro-B Natriuret Pep pg/mL Total Protein (6.3-8.2) g/dL Albumin (3.5-5.0) g/dL Urine Color Light Yellow Urine Appearance Clear (Clear) Urine pH 5.0 (5.0-8.0) Ur Specific [place] 1.013 (1.001-1.035) Urine Protein 1+ H (Negative) Urine Glucose (UA) Trace H (Negative) Urine Ketones Negative (Negative) Urine Blood Negative (Negative) Urine Nitrite Negative (Negative) Urine Bilirubin Negative (Negative) Urine Urobilinogen <2.0 (<2.0) mg/dL Ur Leukocyte Esterase Negative (Negative) Urine RBC 1 (0-5) /hpf Urine WBC <1 (0-5) /hpf Hyaline Casts 1 (0-2) /lpf Disposition Clinical Impression: Syncope, Elevated troponin, Acute vomiting Disposition: ADMITTED IP TO THIS HOSP Referrals: Renzo Boyer MD [Primary Care Provider] - 1-2 days Time of Disposition: 13:50
[2022-04-25 11:50] LABS: Anisocytosis Slight; Basophils % (A) 0 %; Eosinophils # (A) 0.1 k/uL (0-0.7); Eosinophils % (A) 1 %; HCT 28.8 % (39.0-53.0); HGB 9.4 gm/dL (13.0-17.5); Lymphocytes # (A) 0.2 k/uL (1.0-4.8); Lymphocytes % (A) 6 %; MCH 31.8 pg (25.0-35.0); MCHC 32.6 g/dL (31.0-37.0); MCV 97.6 fL (80.0-100.0); Macrocytosis Slight; Mean Platelet Volume 8.3; Monocytes # (A) 0.3 k/uL (0-1.0); Monocytes % (A) 7 %; Neutrophils # (A) 3.2 k/uL (1.3-7.7); Neutrophils % (A) 83 %; RBC 2.95 m/uL (4.30-5.90); RDW 16.5 % (11.5-15.5); WBC 3.9 k/uL (3.8-10.6)
[2022-04-25 11:51] LABS: INR 1.1 (<1.2); Partial Thromboplastin Time 26.8 sec (22.0-30.0); Prothrombin Time 11.6 sec (9.0-12.0)
[2022-04-25 11:58] LABS: Albumin 3.1 g/dL (3.5-5.0); Calcium 7.9 mg/dL (8.4-10.2); Potassium 4.8 mmol/L (3.5-5.1); Total Bilirubin 0.4 mg/dL (0.2-1.3); Total Protein 5.2 g/dL (6.3-8.2)
[2022-04-25 12:09] LABS: Platelet Count 114 k/uL (150-450)
[2022-04-25 12:10] LABS: Poikilocytosis (M) Present
[2022-04-25 12:27] LABS: Glucose,Whole Blood 259 mg/dL (70-110)
[2022-04-25 13:09] LABS: Appearance,Urine Clear (Clear); Bilirubin,Urine Negative (Negative); Blood,Urine Negative (Negative); Color,Urine Light Yellow; Glucose,Urine (UA) Trace (Negative); Hyaline Casts,Urine 1 /lpf (0-2); Ketones,Urine Negative (Negative); Leukocyte Esterase,Urine Negative (Negative); Nitrite,Urine Negative (Negative); Protein,Urine 1+ (Negative); RBC,Urine 1 /hpf (0-5); Specific Gravity,Urine 1.013 (1.001-1.035); Urobilinogen,Urine <2.0 mg/dL (<2.0); WBC,Urine <1 /hpf (0-5)
--- NOTE | 2022-04-25 14:04 | XR ---
EXAMINATION TYPE: XR chest 2V DATE OF EXAM: 04/25/2022 COMPARISON: 04/03/2022 TECHNIQUE: PA and lateral views submitted. HISTORY: Altered mental status FINDINGS: The lungs are clear and there is no pneumothorax, pleural effusion, or focal pneumonia. Partial jennie ntration of the right hemidiaphragm. Atherosclerotic change aorta. Arthropathy of the shoulders. Mild hyperinflation correlate for COPD. IMPRESSION: 1. No acute process.
[2022-04-25] MEDS ORDERED: NITROGLYCERIN SL TABS 0.4 MG TAB SUBLINGUAL PRN (14:28)
[2022-04-25] MEDS ORDERED: NALOXONE 0.4 MG/ML 1 ML VIAL IV PRN (14:54)
--- NOTE | 2022-04-25 14:54 | P.HPIM ---
History of Present Illness H&P Date: 04/25/22 Chief Complaint: passed out 76-year-old male with hx of metastatic adenocarcinoma of the lungs , COPD not on home oxygen, diabetes mellitus, CKD IV baseline Cr 2.4 who presents emergency department via EMS according to EMS the patient went to a restaurant where his daughters work and he was in and out of consciousness while sitting at table and eventually started to come to and he vomited times one. After that the daughter states he was a little confused. He told me that he felt nauseous and dizzy before he passed out. He denied having any blurred or double vision. Denied chest pain or shortness of breath. Nothing focal, no numbness or weakness. No abdominal pain, nausea vomiting diarrhea. He does have some leg edema patient been ongoing for the past 2 days according to him. The leg edema worsens at times according to patient. In the emergency department EKG showed normal sinus rhythm, chest x-ray was clear. Troponin was minimally elevated. But he has elevated creatinine secondary to chronic kidney disease. He was admitted to the hospital for furth er evaluation and management. Review of Systems Complete review of system performed, pertinent positives per HPI, otherwise negative Past Medical History Past Medical History: Cancer, COPD, CVA/TIA, Diabetes Mellitus, Hyperlipidemia, Hypertension, Renal Disease, Seizure Disorder Additional Past Medical History / Comment(s): 07/2018 L lung cancer with left upper lobectomy., R lower lobe cancer in August 2019 and had wedge resection and immunotherapy., bronchitis, TIA and seizure after bronchoscopy in 2017, DVT L leg, IDDM type II, chronic cervical/back pain, BPH, stage III kidney disease, chronic constipation ., dysphagia with 11 # wt loss., states spot on spine L-3., states he thinks he has a sore on his tailbone., hx of carotid stenosis with stent 06/03/2021. Last Myocardial Infarction Date:: 05/24/12 History of Any Multi-Drug Resistant Organisms: None Reported Past Surgical History: Back Surgery, Cholecystectomy, Heart Catheterization, Heart Catheterization With Stent, Hernia Repair, Tonsillectomy Additional Past Surgical History / Comment(s): 2017 Bronchoscopy with bx, 2017 L upper lobectomy at [facility], August 2019 R lower lung wedge resection, low back surgery, umbilical hernia repair, bilateral cataract removals ., right transcarotid artery revasculazation with stent May 2021 Past Anesthesia/Blood Transfusion Reactions: Previous Problems w/ Anesthesia Additional Past Anesthesia/Blood Transfusion Reaction / Comment(s): Seizure and mini stroke following lung biopsy Date of Last Stent Placement:: 06/03/2021-CAROTID STENT Smoking Status: Former smoker - Past Family History Mother Family Medical History: No Reported History Additional Family Medical History / Comment(s): Mother was healthy Father Family Medical History: Diabetes Mellitus Additional Family Medical History / Comment(s): Father of diabetes at the age of 83 yrs. Medications and Allergies Home Medications Medication Instructions Recorded Confirmed Type Simvastatin [Zocor] 40 mg PO HS 07/30/19 04/25/22 History amLODIPine [Norvasc] 10 mg PO HS 07/30/19 04/25/22 History levETIRAcetam [Keppra] 500 mg PO BID 07/30/19 04/25/22 History Metoprolol Tartrate 25 mg PO BID #60 tab 09/10/19 04/25/22 Rx Omeprazole 20 mg PO HS 07/06/20 04/25/22 History Levothyroxine Sodium [Synthroid] 25 mcg PO DAILY@0630 30 Days #30 07/08/20 04/25/22 Rx tab Rivaroxaban [Xarelto] 15 mg PO HS 01/12/21 04/25/22 History Solifenacin Succinate [Vesicare] 10 mg PO HS 01/12/21 04/25/22 History Furosemide [Lasix] 40 mg PO DAILY 06/03/21 04/25/22 History Ipratropium-Albuterol Nebulize 3 ml INHALATION RT-BID 10/14/21 04/25/22 History [Duoneb 0.5 mg-3 mg/3 ml Soln] Aspirin [Adult Low Dose Aspirin EC] 81 mg PO HS 02/27/22 04/25/22 History Ergocalciferol [Vitamin D2 (1250 1,250 mcg PO TU 02/27/22 04/25/22 History Mcg = 99225 Iu)] Insulin Aspart [NovoLOG Flexpen] See Protocol SQ AC-TID 02/27/22 04/25/22 Hist ory Insulin Degludec [Tresiba 15 units SQ HS 02/27/22 04/25/22 History Flextouch U-100 Pen] Magnesium Oxide [Mag-Ox] 400 mg PO HS 02/27/22 04/25/22 History HYDROcodone/APAP 7.5-325MG [[place] 1 tab PO BID PRN 04/01/22 04/25/22 History 7.5-325] Allergies Allergy/AdvReac Type Severity Reaction Status Date / Time No Known Allergies Allergy Verified 04/25/22 12:13 Physical Exam Vitals: Vital Signs Temp Pulse Pulse Resp BP BP Pulse Ox 04/25/22 12:12 82 18 120/65 98 04/25/22 12:11 77 18 121/61 04/25/22 12:06 18 108/74 04/25/22 11:06 98.2 F 79 18 132/73 99 Intake and Output 04/24/22 04/25/22 04/25/22 22:59 06:59 14:59 Other: Weight 85.729 kg Constitutional: No acute distress, conversant, pleasant Eyes:Anicteric sclerae, moist conjunctiva, no lid-lag, PERRLA, ENMT: Oropharynx clear, no erythema, exudates Neck: Supple, FROM, no masses, or JVD, No carotid bruits, No thyromegaly Lungs: Clear to auscultation, Clear to percussion, Normal respiratory effort, no accessory muscle use Cardiovascular: Heart regular in rate and rhythm, No murmurs, gallops, or rubs, 1+ peripheral edema Abdominal: Soft, Nontender, no guarding, rebound or rigidity, Normoactive bowel sounds, No hepatomegaly, No splenomegaly, No palpable mass Skin: Normal temperature, tone, texture, turgor, no induration, No subcutaneous nodules, No rash, lesions, No ulcers Extremities: No digital cyanosis, No clubbing, Pedal pulses intact and symmetrical, Radial pulses intact and symmetrical, No calf tenderness Psychiatric: Alert and oriented to person, place and time, appropriate affect, intact judgement Neuro: Muscles Strength 5/5 in all 4 extremities, Sensation to light touch grossly present throughout, Cranial nerves II-XII grossly intact, no focal sensory deficits Results CBC & Chem 7: 04/25/22 11:15 04/25/22 11:15 Labs: Abnormal Lab Results - Last 24 Hours (Table) 04/25/22 04/25/22 04/25/22 Range/Units 11:15 11:15 11:15 RBC 2.95 L (4.30-5.90) m/uL Hgb 9.4 L (13.0-17.5) gm/dL Hct 28.8 L (39.0-53.0) % RDW 16.5 H (11.5-15.5) % Plt Count 114 L D (150-450) k/uL Lymphocytes # 0.2 L (1.0-4.8) k/uL BUN 78 H (9-20) mg/dL Creatinine 2.85 H (0.66-1.25) mg/dL Glucose 238 H (74-99) mg/dL POC Glucose (mg/dL) (70-110) mg/dL Calcium 7.9 L (8.4-10.2) mg/dL Troponin I 0.036 H* (0.000-0.034) ng/mL Total Protein 5.2 L (6.3-8.2) g/dL Albumin 3.1 L (3.5-5.0) g/dL Urine Protein (Negative) Urine Glucose (UA) (Negative) 04/25/22 04/25/22 Range/Units 12:22 12:54 RBC (4.30-5.90) m/uL Hgb (13.0-17.5) gm/dL Hct (39.0-53.0) % RDW (11.5-15.5) % Plt Count (150-450) k/uL Lymphocytes # (1.0-4.8) k/uL BUN (9-20) mg/dL Creatinine (0.66-1.25) mg/dL Glucose (74-99) mg/dL POC Glucose (mg/dL) 259 H (70-110) mg/dL Calcium (8.4-10.2) mg/dL Troponin I (0.000-0.034) ng/mL Total Protein (6.3-8.2) g/dL Albumin (3.5-5.0) g/dL Urine Protein 1+ H (Negative) Urine Glucose (UA) Trace H (Negative) Assessment and Plan Plan: Syncope Could be vasovagal Cycle troponins to rule out acute myocardial infarction Cardiology consultation Monitor in telemetry Of note patient recently had an echo last month that showed normal EF, moderate LVH Chronic COPD, Diabetes Mellitus 2, Hyperlipidemia, Hypertension, Chronic renal Disease stage 3, Seizure Disorder BPH, All stable Resume meds Admit to observation
[2022-04-25] MEDS: INSULIN ASPART (NovoLOG) 100 UNIT/ML VIAL SQ SCH ×2 (18:26→23:08)
[2022-04-25 18:31] LABS: Glucose,Whole Blood 261 mg/dL (70-110)
[2022-04-25] MEDS: IPRATROPIUM-ALBUTEROL 3 ML NEB INHALATION SCH (20:07)
[2022-04-25] MEDS: ATORVASTATIN 20 MG TAB PO SCH (21:36)
[2022-04-25] MEDS: levETIRAcetam 500 MG TAB PO SCH (21:36)
[2022-04-25] MEDS: MAGNESIUM OXIDE 400 MG TAB PO SCH (21:37)
[2022-04-25] MEDS: PANTOPRAZOLE 40 MG TABLET PO SCH (21:37)
[2022-04-25] MEDS: RIVAROXABAN 15 MG TAB PO SCH (21:37)
[2022-04-25] MEDS: TROSPIUM CHLORIDE 20 MG TABLET PO SCH (21:37)
[2022-04-25] MEDS: ASPIRIN 81 MG PO SCH (21:38)
[2022-04-25] MEDS: amLODIPine 10 MG TAB PO SCH (21:38)
[2022-04-25] MEDS: INSULIN DETEMIR (LEVEMIR) 100 UNIT/ML SYR SQ SCH (21:41)
[2022-04-25 21:43] LABS: Glucose,Whole Blood 275 mg/dL (70-110)
[2022-04-25] MEDS: METOPROLOL TARTRATE 25 MG TAB PO SCH (21:54)
[2022-04-25 22:59] LABS: Glucose,Whole Blood 248 mg/dL (70-110)
[2022-04-26 06:12] LABS: Glucose,Whole Blood 76 mg/dL (70-110)
[2022-04-26] MEDS: INSULIN ASPART (NovoLOG) 100 UNIT/ML VIAL SQ SCH ×4 (06:12→20:56)
[2022-04-26] MEDS: LEVOTHYROXINE 25 MCG TAB PO SCH (06:40)
[2022-04-26] MEDS: IPRATROPIUM-ALBUTEROL 3 ML NEB INHALATION SCH ×2 (08:02→20:10)
[2022-04-26] MEDS ORDERED: ASPIRIN 325 MG TAB PO SCH (09:00)
[2022-04-26] MEDS: METOPROLOL TARTRATE 25 MG TAB PO SCH ×2 (09:20→20:54)
[2022-04-26] MEDS: levETIRAcetam 500 MG TAB PO SCH (09:20)
[2022-04-26] MEDS: HYDROcodone/APAP 7.5-325MG 1 EACH TAB PO PRN ×2 (09:20→20:53)
[2022-04-26] MEDS: FUROSEMIDE 40 MG TAB PO SCH (09:20)
[2022-04-26] MEDS: TROSPIUM CHLORIDE 20 MG TABLET PO SCH ×2 (09:21→20:55)
[2022-04-26 09:35] LABS: Basophils % (A) 0 %; Eosinophils # (A) 0.1 k/uL (0-0.7); Eosinophils % (A) 2 %; HCT 26.9 % (39.0-53.0); HGB 8.8 gm/dL (13.0-17.5); Lymphocytes # (A) 0.4 k/uL (1.0-4.8); Lymphocytes % (A) 12 %; MCH 31.7 pg (25.0-35.0); MCHC 32.7 g/dL (31.0-37.0); MCV 96.9 fL (80.0-100.0); Mean Platelet Volume 7.6; Monocytes # (A) 0.3 k/uL (0-1.0); Monocytes % (A) 8 %; Neutrophils # (A) 2.8 k/uL (1.3-7.7); Neutrophils % (A) 75 %; Platelet Count 111 k/uL (150-450); RBC 2.78 m/uL (4.30-5.90); RDW 15.7 % (11.5-15.5); WBC 3.8 k/uL (3.8-10.6)
[2022-04-26 09:49] LABS: ALT 31 U/L (4-49); AST 19 U/L (17-59); African American GFR (CKD) 22 (>60 ml/min/1.73 sqM); Albumin 2.9 g/dL (3.5-5.0); Alkaline Phosphatase 94 U/L (38-126); Anion Gap 10 mmol/L; Blood Urea Nitrogen 76 mg/dL (9-20); Calcium 8.2 mg/dL (8.4-10.2); Carbon Dioxide 22 mmol/L (22-30); Chloride 108 mmol/L (98-107); Glucose 106 mg/dL (74-99); Non-African American GFR(CKD) 19 (>60 ml/min/1.73 sqM); Potassium 4.2 mmol/L (3.5-5.1); Sodium 140 mmol/L (137-145); Total Bilirubin 0.4 mg/dL (0.2-1.3)
--- NOTE | 2022-04-26 10:16 | P.CNNES ---
History of Present Illness Consult date: 04/26/22 Requesting physician: Gatito Quick Reason for Consult: syncope History of Present Illness: This is a 76-year-old with medical history of seizure 2018, metastatic adenocarcinoma of the lung s/p resection (reported as left upper lobectomy and right lobe) with immunotherapy, DM, hypertension, hyperlipidemia, possible TIA in the past, history of carotid stenosis status post stent in 2020, chronic kidney insufficiency and former tobacco use who presented to our facility because of an episode of loss of consciousness and it was felt that was a syncopal episode. Patient stated that yesterday he was at a restaurant and he does not recall what transpired but he stated that he lost consciousness seems that and then that when he woke up he was in a different chair. EMS notified the primary team that the patient was at a restaurant and then a he was a in and out of consciousness while sitting in a table then he vomited in the daughter the fact the patient was somewhat confused afterwards. He notified the primary team that he felt dizzy and nauseous prior to passing out. Unknown exact time. No jerk in of any extremity. Denies any tongue bite, urinary or bowel incontinence. Patient is on Keppra 500 mg 1 tablet twice a day and comply with medication for his prior seizure. It is suspected that the patient had a seizure activity in 2018 while getting Broncos[place] was felt either seizure versus TIA. He does not recall the episode. He resides with his son. Patient follows up with a neurologist (Dr. Kenyon). Some of the workup in our facility during this hospital visit consisted of: Initial serum glucose is 238, creatinine is 2.85, BUN is 78 calcium 7.8. The troponin is 0.036 repeated 0.038 Of note is seems the patient had multiple routine EEG in our facility and the last 1 was 07/28/2020 and was reported as mainly drowsy and asleep EEG. No epileptiform activity seen. Intermittent left hemispheric focal slowing was seen which is suggestive of focal cortical neuronal dysfunction and may suggest underlying structural abnormality. No definite epileptiform activity was seen Review of Systems Review of system: The 12 point system was reviewed and apparent positive and negative per HPI. Past Medical History Past Medical History: Cancer, COPD, CVA/TIA, Diabetes Mellitus, Hyperlipidemia, Hypertension, Renal Disease, Seizure Disorder Additional Past Medical History / Comment(s): 07/2018 L lung cancer with left upper lobectomy., R lower lobe cancer in August 2019 and had wedge resection and immunotherapy., bronchitis, TIA and seizure after bronchoscopy in 2017, DVT L leg, IDDM type II, chronic cervical/back pain, BPH, stage III kidney disease, chronic constipation ., dysphagia with 11 # wt loss., states spot on spine L-3., states he thinks he has a sore on his tailbone., hx of carotid stenosis with stent 06/03/2021. Last Myocardial Infarction Date:: 05/24/12 History of Any Multi-Drug Resistant Organisms: None Reported Past Surgical History: Back Surgery, Cholecystectomy, Heart Catheterization, Heart Catheterization With Stent, Hernia Repair, Tonsillectomy Additional Past Surgical History / Comment(s): 2018 Bronchoscopy with bx, 2017 L upper lobectomy at [facility], August 2019 R lower lung wedge resection, low back surgery, umbilical hernia repair, bilateral cataract removals ., right transcarotid artery revasculazation with stent May 2021 Past Anesthesia/Blood Transfusion Reactions: Previous Problems w/ Anesthesia Additional Past Anesthesia/Blood Transfusion Reaction / Comment(s): Seizure and mini stroke following lung biopsy Date of Last Stent Placement:: 06/03/2021-CAROTID STENT Past Psychological History: No Psychological Hx Reported Additional Psychological History / Comment(s): . Smoking Status: Former smoker Past Alcohol Use History: None Reported Additional Past Alcohol Use History / Comment(s): Pt started smoking in 1960 and quit in 1995. He was a 2ppd smoker. Past Drug Use History: None Reported Additional Drug Use History / Comment(s): . - Past Family History Mother Family Medical History: No Reported History Additional Family Medical History / Comment(s): Mother was healthy Father Family Medical History: Diabetes Mellitus Additional Family Medical History / Comment(s): Father of diabetes at the age of 83 yrs. Medications and Allergies Home Medications Medication Instructions Recorded Confirmed Type Simvastatin [Zocor] 40 mg PO HS 07/30/19 04/25/22 History amLODIPine [Norvasc] 10 mg PO HS 07/30/19 04/25/22 History levETIRAcetam [Keppra] 500 mg PO BID 07/30/19 04/25/22 History Metoprolol Tartrate 25 mg PO BID #60 tab 09/10/19 04/25/22 Rx Omeprazole 20 mg PO HS 07/06/20 04/25/22 History Levothyroxine Sodium [Synthroid] 25 mcg PO DAILY@0630 30 Days #30 07/08/20 04/25/22 Rx tab Rivaroxaban [Xarelto] 15 mg PO HS 01/12/21 04/25/22 History Solifenacin Succinate [Vesicare] 10 mg PO HS 01/12/21 04/25/22 History Furosemide [Lasix] 40 mg PO DAILY 06/03/21 04/25/22 History Ipratropium-Albuterol Nebulize 3 ml INHALATION RT-BID 10/14/21 04/25/22 History [Duoneb 0.5 mg-3 mg/3 ml Soln] Aspirin [Adult Low Dose Aspirin EC] 81 mg PO HS 02/27/22 04/25/22 History Ergocalciferol [Vitamin D2 (1250 1,250 mcg PO TU 02/27/22 04/25/22 History Mcg = 56720 Iu)] Insulin Aspart [NovoLOG Flexpen] See Protocol SQ AC-TID 02/27/22 04/25/22 History Insulin Degludec [Tresiba 15 units SQ HS 02/27/22 04/25/22 History Flextouch U-100 Pen] Magnesium Oxide [Mag-Ox] 400 mg PO HS 02/27/22 04/25/22 History HYDROcodone/APAP 7.5-325MG [Kane 1 tab PO BID PRN 04/01/22 04/25/22 History 7.5-325] Allergies Allergy/AdvReac Type Severity Reaction Status Date / Time No Known Allergies Allergy Verified 04/25/22 12:13 Physical Examination - Vital Signs Vital Signs: Vital Signs Temp Pulse Pulse Pulse Resp BP BP 04/26/22 08:14 83 04/26/22 08:04 85 04/26/22 08:00 97.5 F L 89 16 04/26/22 04:00 97.8 F 84 16 133/68 04/26/22 00:00 98.1 F 86 16 04/25/22 22:51 97.7 F 86 18 147/68 04/25/22 21:40 80 127/57 04/25/22 20:18 80 04/25/22 20:08 84 04/25/22 19:38 70 119/67 04/25/22 18:28 97.5 F L 77 18 132/69 04/25/22 16:00 76 18 134/70 04/25/22 15:00 75 18 129/69 04/25/22 14:00 76 18 133/72 04/25/22 13:00 75 18 121/69 04/25/22 12:12 82 18 120/65 04/25/22 12:11 77 18 121/61 04/25/22 12:06 18 108/74 04/25/22 11:06 98.2 F 79 18 132/73 BP Pulse Ox 04/26/22 08:14 04/26/22 08:04 95 04/26/22 08:00 137/64 99 04/26/22 04:00 99 04/26/22 00:00 141/60 99 04/25/22 22:51 99 04/25/22 21:40 97 04/25/22 20:18 04/25/22 20:08 04/25/22 19:38 96 04/25/22 18:28 99 04/25/22 16:00 99 04/25/22 15:00 100 04/25/22 14:00 95 04/25/22 13:00 99 04/25/22 12:12 98 04/25/22 12:11 04/25/22 12:06 04/25/22 11:06 99 Intake and Output 04/25/22 04/26/22 04/26/22 22:59 06:59 14:59 Output Total 575 Balance -575 Output: Urine 575 Other: Voiding Method Toilet Urinal Weight 85.729 kg GENERAL: The patient is lying in bed and is not in acute distress. CHEST: The heart rate is regular rate rhythm. No murmurs to auscultation. LUNG: Clear to auscultation bilaterally no wheezing noted throughout. Not labor ed breathing. ABDOMEN/GI: Bowel sounds present in all 4 quadrants. No tenderness to palpation throughout. NEUROLOGICAL: Higher mental function: The patient is awake, alert, oriented to self, place and time. Patient is following commands. No aphasia and no neglect. Cranial nerves: The pupils are round, equal and reactive to light and accommodation. Visual wright are full to confrontation throughout. Extraocular movement is intact no nystagmus is noted. Facial sensation is normal to touch throughout. The facial strength is normal throughout. Hearing is mildly decreased bilaterally to hand rub. Tongue is midline and moved [id number] without any difficulty. No dysarthria is noted. Shoulder shrug is normal bilaterally. Motor: The strength is 5 over 5 throughout. Normal tone and bulk. Patient has action tremor. Cerebellum: Normal finger to nose bilaterally. Sensation: Sensation is normal to touch throughout. Reflexes (right/left): 1+ throughout. Plantars are downgoing bilaterally. Results - Laboratory Findings CBC and BMP: 04/26/22 08:41 04/26/22 08:41 Abnormal Lab Findings: Abnormal Labs 04/25/22 04/25/22 04/25/22 11:15 11:15 11:15 RBC 2.95 L Hgb 9.4 L Hct 28.8 L RDW 16.5 H Plt Count 114 L D Lymphocytes # 0.2 L Chloride BUN 78 H Creatinine 2.85 H Glucose 238 H POC Glucose (mg/dL) Calcium 7.9 L Troponin I 0.036 H* Total Protein 5.2 L Albumin 3.1 L Urine Protein Urine Glucose (UA) 04/25/22 04/25/22 04/25/22 12:22 12:54 15:05 RBC Hgb Hct RDW Plt Count Lymphocytes # Chloride BUN Creatinine Glucose POC Glucose (mg/dL) 259 H Calcium Troponin I 0.038 H* Total Protein Albumin Urine Protein 1+ H Urine Glucose (UA) Trace H 04/25/22 04/25/22 04/25/22 17:43 18:22 21:41 RBC Hgb Hct RDW Plt Count Lymphocytes # Chloride BUN Creatinine Glucose POC Glucose (mg/dL) 261 H 275 H Calcium Troponin I 0.040 H* Total Protein Albumin Urine Protein Urine Glucose (UA) 04/25/22 04/26/22 04/26/22 22:45 08:41 08:41 RBC 2.78 L Hgb 8.8 L Hct 26.9 L RDW 15.7 H Plt Count 111 L Lymphocytes # 0.4 L Chloride 108 H BUN 76 H Creatinine 3.08 H Glucose 106 H POC Glucose (mg/dL) 248 H Calcium 8.2 L Troponin I Total Protein 5.0 L Albumin 2.9 L Urine Protein Urine Glucose (UA) Assessment and Plan Assessment: Syncopal episodes possibly due to breakthrough seizures special with history of metastatic adenocarcinoma of the lung History of reported one seizure in past according to patient Metastatic adenocarcinoma of the lung s/p resection (reported as left upper lobectomy and right lobe) with immunotherapy History of possible TIA History of carotid stenosis status post stent in 2020 DM History of hypertension Hyperlipidemia Chronic kidney insufficiency Former tobacco Plan: Recommend MRI of the brain without (cannot perform w/ because of his kidney insufficiency). Recommend as an outpatient MRI of the brain with once the k idney function is improved to assess if any metastases to the brain. Recommend EEG. Recommend increasing the Keppra from 500 mg 1 tablet twice a day to 750 one tablet twice a day. Every 4 hours neuro checks Ordered carotid duplex and orthostatic vitals. We'll defer the rest of the medical management to the primary team Upon discharge recommend the patient to follow-up with his neurologist within 1- 2 weeks as an outpatient (Dr. Kenyon). The plan is discussed with the patient and the primary team. Thank you for the consultation. David Mccain M.D. Neuro-Hospitalist Time with Patient: Greater than 30
--- NOTE | 2022-04-26 10:42 | P.CRDCN ---
History of Present Illness Consult date: 04/26/22 History of present illness: HISTORY OF PRESENT ILLNESS: This is a 79-year-old male with a past medical history significant for lung cancer, COPD, coronary artery disease, DVT, and carotid disease with previous right carotid endarterectomy. Patient states he has an appointment to establish care in the office with Dr. Crane. We have been asked to see the patient in consultation for syncope. Patient examined at the bedside. Patient states he was out to eat with his son and was feeling in his normal state of health. He denied feeling any chest pain or shortness of breath. He does report feeling a little bit dizzy. He states that he began to feel nauseous and began vomiting. He is unsure if he lost consciousness but states that his daughter told him that she believed he did. He denied any loss of bowel or bladder. Denied biting his tongue. The patient denies having any previous syncopal episodes. The patient reports a history of lung cancer and states he is on chemotherapy and his last treatment was last . He is a former cigarette smoker and states he quit smoking 25 years ago. * EKG reveals sinus mechanism with T-wave inversions in lead 3, unchanged from previous EKG * Chest xray negative for acute process * Laboratory data: W BC 3.8. Hemoglobin 8.8. Sodium 140. Potassium 4.2. BUN 76. Creatinine 3.08. Troponin 0.036. 0.03. 0.040. * Current home cardiac medications include amlodipine 10 mg at night, simvastatin 40 mg at night, Xarelto 15 mg at night, metoprolol tartrate 25 mg twice a day, Lasix 40 mg daily, aspirin 81 mg at night * Most recent echocardiogram obtained in March 2022 revealed moderate LVH, ejection fraction 55-60%, mild tricuspid regurgitation. * Cardiac catheterization history: August 2018 revealing chronic occluded nondominant right coronary artery, severe diffuse disease and a small second obtuse marginal branch with moderate disease in the proximal and distal left circumflex. Moderate disease in the proximal LAD that is non-hemodynamically significant by fractional flow reserve. Medical management was recommended. REVIEW OF SYSTEMS: At the time of my exam: CONSTITUTIONAL: Denies fever or chills. HEENT: Denies blurred vision, vision changes, or eye pain. Denies hemoptysis CARDIOVASCULAR: Denies chest pain. Denies orthopnea. Denies PND. Denies palpitations RESPIRATORY: Denies shortness of breath. GASTROINTESTINAL: Denies abdominal pain. Denies nausea or vomiting. HEMATOLOGIC: Denies bleeding disorders. GENITOURINARY: Denies any blood in urine. SKIN: Denies pruitis. Denies rash. PHYSICAL EXAM: VITAL SIGNS: Reviewed. GENERAL: Well-developed in no acute distress. HEENT: Head is normocephalic. Pupils are equal, round. Sclerae anicteric. Mucous membranes of the mouth are moist. Neck supple. No JVD or thyromegaly LUNGS: Respirations even and unlabored. Lungs with expiratory wheezing noted HEART: Regular rate and rhythm. S1 and S2 heard. ABDOMEN: Soft. Nondistended. Nontender. EXTREMITIES: Normal range of motion. No clubbing or cyanosis. Peripheral pulses intact. No lower extremity edema NEUROLOGIC: Awake and alert. Oriented x 3. ASSESSMENT: Syncope Chronic kidney disease Abnormal troponins, secondary to CKD, no evidence of acute coronary syndrome Coronary artery disease History of DVT on Xarelto Carotid disease with previous right CEA Lung cancer, on chemotherapy Hypertension Hyperlipidemia PLAN: No need to repeat echocardiogram as this was performed last month Resume home cardiac medications Obtain orthostatic blood pressures Continue telemetry monitoring to assess for any arrhythmias Event monitor at the time of discharge Further recommendations pending patient's course Nurse practitioner note has been reviewed by physician. Signing provider agrees with the documented findings, assessment, and plan of care. Past Medical History Past Medical History: Cancer, COPD, CVA/TIA, Diabetes Mellitus, Hyperlipidemia, Hypertension, Renal Disease, Seizure Disorder Additional Past Medical History / Comment(s): 07/2018 L lung cancer with left upper lobectomy., R lower lobe cancer in August 2019 and had wedge resection and immunotherapy., bronchitis, TIA and seizure after bronchoscopy in 2018, DVT L leg, IDDM type II, chronic cervical/back pain, BPH, stage III kidney disease, chronic constipation ., dysphagia with 11 # wt loss., states spot on spine L-3., states he thinks he has a sore on his tailbone., hx of carotid stenosis with stent 06/03/2021. Last Myocardial Infarction Date:: 05/24/12 History of Any Multi-Drug Resistant Organisms: None Reported Past Surgical History: Back Surgery, Cholecystectomy, Heart Catheterization, Heart Catheterization With Stent, Hernia Repair, Tonsillectomy Additional Past Surgical History / Comment(s): 2018 Bronchoscopy with bx, 2017 L upper lobectomy at [facility], August 2019 R lower lung wedge resection, low back surgery, umbilical hernia repair, bilateral cataract removals ., right transcaro tid artery revasculazation with stent May 2021 Past Anesthesia/Blood Transfusion Reactions: Previous Problems w/ Anesthesia Additional Past Anesthesia/Blood Transfusion Reaction / Comment(s): Seizure and mini stroke following lung biopsy Date of Last Stent Placement:: 06/03/2021-CAROTID STENT Past Psychological History: No Psychological Hx Reported Additional Psychological History / Comment(s): . Smoking Status: Former smoker Past Alcohol Use History: None Reported Additional Past Alcohol Use History / Comment(s): Pt started smoking in 1960 and quit in 1995. He was a 2ppd smoker. Past Drug Use History: None Reported Additional Drug Use History / Comment(s): . - Past Family History Mother Family Medical History: No Reported History Additional Family Medical History / Comment(s): Mother was healthy Father Family Medical History: Diabetes Mellitus Additional Family Medical History / Comment(s): Father of diabetes at the age of 83 yrs. Medications and Allergies Home Medications Medication Instructions Recorded Confirmed Type Simvastatin [Zocor] 40 mg PO HS 07/30/19 04/25/22 History amLODIPine [Norvasc] 10 mg PO HS 07/30/19 04/25/22 History levETIRAcetam [Keppra] 500 mg PO BID 07/30/19 04/25/22 History Metoprolol Tartrate 25 mg PO BID #60 tab 09/10/19 04/25/22 Rx Omeprazole 20 mg PO HS 07/06/20 04/25/22 History Levothyroxine Sodium [Synthroid] 25 mcg PO DAILY@0630 30 Days #30 07/08/20 04/25/22 Rx tab Rivaroxaban [Xarelto] 15 mg PO HS 01/12/21 04/25/22 History Solifenacin Succinate [Vesicare] 10 mg PO HS 01/12/21 04/25/22 History Furosemide [Lasix] 40 mg PO DAILY 06/03/21 04/25/22 History Ipratropium-Albuterol Nebulize 3 ml INHALATION RT-BID 10/14/21 04/25/22 History [Duoneb 0.5 mg-3 mg/3 ml Soln] Aspirin [Adult Low Dose Aspirin EC] 81 mg PO HS 02/27/22 04/25/22 History Ergocalciferol [Vitamin D2 (1250 1,250 mcg PO TU 02/27/22 04/25/22 History Mcg = 11700 Iu)] Insulin Aspart [NovoLOG Flexpen] See Protocol SQ AC-TID 02/27/22 04/25/22 History Insulin Degludec [Tresiba 15 units SQ HS 02/27/22 04/25/22 History Flextouch U-100 Pen] Magnesium Oxide [Mag-Ox] 400 mg PO HS 02/27/22 04/25/22 History HYDROcodone/APAP 7.5-325MG [Weld 1 tab PO BID PRN 04/01/22 04/25/22 History 7.5-325] Allergies Allergy/AdvReac Type Severity Reaction Status Date / Time No Known Allergies Allergy Verified 04/25/22 12:13 Physical Exam Vitals: Vital Signs Temp Pulse Pulse Pulse Resp BP BP 04/26/22 08:14 83 04/26/22 08:04 85 04/26/22 04:00 97.8 F 84 16 133/68 04/26/22 00:00 98.1 F 86 16 04/25/22 22:51 97.7 F 86 18 147/68 04/25/22 21:40 80 127/57 04/25/22 20:18 80 04/25/22 20:08 84 04/25/22 19:38 70 119/67 04/25/22 18:28 97.5 F L 77 18 132/69 04/25/22 16:00 76 18 134/70 04/25/22 15:00 75 18 129/69 04/25/22 14:00 76 18 133/72 04/25/22 13:00 75 18 121/69 04/25/22 12:12 82 18 120/65 04/25/22 12:11 77 18 121/61 04/25/22 12:06 18 108/74 04/25/22 11:06 98.2 F 79 18 132/73 BP Pulse Ox 04/26/22 08:14 04/26/22 08:04 95 04/26/22 04:00 99 04/26/22 00:00 141/60 99 04/25/22 22:51 99 04/25/22 21:40 97 04/25/22 20:18 04/25/22 20:08 04/25/22 19:38 96 04/25/22 18:28 99 04/25/22 16:00 99 04/25/22 15:00 100 04/25/22 14:00 95 04/25/22 13:00 99 04/25/22 12:12 98 04/25/22 12:11 04/25/22 12:06 04/25/22 11:06 99 Intake and Output 04/25/22 04/26/22 04/26/22 22:59 06:59 14:59 Output Total 575 Balance -575 Output: Urine 575 Other: Voiding Method Toilet Urinal Weight 85.729 kg Results 04/26/22 08:41 04/26/22 08:41 Cardiac Enzymes 04/25/22 04/25/22 04/25/22 Range/Units 11:15 11:15 15:05 AST 27 (17-59) U/L Troponin I 0.036 H* 0.038 H* (0.000-0.034) ng/mL 04/25/22 Range/Units 17:43 AST (17-59) U/L Troponin I 0.040 H* (0.000-0.034) ng/mL Coagulation 04/25/22 Range/Units 11:15 PT 11.6 (9.0-12.0) sec APTT 26.8 (22.0-30.0) sec CBC 04/25/22 Range/Units 11:15 WBC 3.9 (3.8-10.6) k/uL RBC 2.95 L (4.30-5.90) m/uL Hgb 9.4 L (13.0-17.5) gm/dL Hct 28.8 L (39.0-53.0) % Plt Count 114 L D (150-450) k/uL Comprehensive Metabolic Panel 04/25/22 Range/Units 11:15 Sodium 138 (137-145) mmol/L Potassium 4.8 (3.5-5.1) mmol/L Chloride 106 (98-107) mmol/L Carbon Dioxide 23 (22-30) mmol/L BUN 78 H (9-20) mg/dL Creatinine 2.85 H (0.66-1.25) mg/dL Glucose 238 H (74-99) mg/dL Calcium 7.9 L (8.4-10.2) mg/dL AST 27 (17-59) U/L ALT 32 (4-49) U/L Alkaline Phosphatase 121 (38-126) U/L Total Protein 5.2 L (6.3-8.2) g/dL Albumin 3.1 L (3.5-5.0) g/dL Current Medications Generic Name Dose Route Start Last Admin Trade Name Freq PRN Reason Stop Dose Admin Hydrocodone Bitart/Acetaminophen 1 each 04/25/22 14:55 Hydrocodone/Apap 7.5-325mg 1 Each Tab PO BID PRN Pain Albuterol/Ipratropium 3 ml 04/25/22 20:00 04/26/22 08:02 Ipratropium-Albuterol 3 Ml Neb INHALATION 3 ml RT-BID NI Administration Amlodipine Besylate 10 mg 04/25/22 21:00 04/25/22 21:38 Amlodipine 10 Mg Tab PO 10 mg HS NI Administration Aspirin 81 mg 04/25/22 21:00 04/25/22 21:38 Aspirin 81 Mg PO 81 mg HS NI Administration Atorvastatin Calcium 20 mg 04/25/22 21:00 04/25/22 21:36 Atorvastatin 20 Mg Tab PO 20 mg HS NI Administration Ergocalciferol 1,250 mcg 05/02/22 09:00 Ergocalciferol 1,250 Mcg (50,000 Iu) Capsule PO TU [facility] Furosemide 40 mg 04/26/22 09:00 Furosemide 40 Mg Tab PO DAILY [facility] Insulin Aspart 0 unit 04/25/22 17:30 04/26/22 06:12 Insulin Aspart (Novolog) 100 Unit/Ml Vial SQ Not Given [facility] Protocol Insulin Detemir 15 unit 04/25/22 21:00 04/25/22 21:41 Insulin Detemir (Levemir) 100 Unit/Ml Syr SQ 15 unit HS [facility] Administration Levetiracetam 500 mg 04/25/22 21:00 04/25/22 21:36 Levetiracetam 500 Mg Tab PO 500 mg BID NI Administration Levothyroxine Sodium 25 mcg 04/26/22 06:30 04/26/22 06:40 Levothyroxine 25 Mcg Tab PO 25 mcg DAILY@0630 NI Administration Magnesium Oxide 400 mg 04/25/22 21:00 04/25/22 21:37 Magnesium Oxide 400 Mg Tab PO 400 mg HS [facility] Administration Metoprolol Tartrate 25 mg 04/25/22 21:00 04/25/22 21:54 Metoprolol Tartrate 25 Mg Tab PO 25 mg BID NI Administration Naloxone HCl 0.2 mg 04/25/22 14:54 Naloxone 0.4 Mg/Ml 1 Ml Vial IV Q2M PRN Opioid Reversal Nitroglycerin 0.4 mg 04/25/22 14:28 Nitroglycerin Sl Tabs 0.4 Mg Tab SUBLINGUAL Q5M PRN Chest Pain Pantoprazole Sodium 40 mg 04/25/22 21:00 04/25/22 21:37 Pantoprazole 40 Mg Tablet PO 40 mg HS [facility] Administration Rivaroxaban 15 mg 04/25/22 21:00 04/25/22 21:37 Rivaroxaban 15 Mg Tab PO 15 mg HS NI Administration Protocol Trospium 20 mg 04/25/22 21:00 04/25/22 21:37 Trospium Chloride 20 Mg Tablet PO 20 mg BID [facility] Administration Intake and Output 04/25/22 04/26/22 04/26/22 22:59 06:59 14:59 Output Total 575 Balance -575 Output: Urine 575 Other: Voiding Method Toilet Urinal Weight 85.729 kg 04/25/22 11:15 04/25/22 11:15
--- NOTE | 2022-04-26 11:02 | P.PN ---
Subjective Progress Note Date: 04/26/22 Hospital course: Patient is a very pleasant 76-year-old male with a past medical history of metastatic adenocarcinoma of the lungs status post lobectomy/wedge resection, COPD not home oxygen dependent, chronic kidney disease stage IV, CAD with stents, hypertension, hyperlipidemia, DVT on anticoagulation with Xarelto, and seizure history. Patient presented to the emergency department with a chief complaint of possible syncopal episode. Patient was reportedly at a restaurant with his family when he appeared to be going in and out of consciousness followed by an episode of vomiting and confusion upon regaining consciousness. he was seen and fully evaluated in the emergency department.an EKG was completed showing normal sinus rhythm at 76 bpm with no noted T-wave or ST abnormalities. Chest x-ray was negative for acute cardiopulmonary process. CBC revealed normocytic normochromic anemia with hemoglobin of 9.4 and thrombocytopenia with platelet count of 114. BMP revealing elevated renal function consistent with CK ED with BUN 78, creatinine 2.85, and GFR of 21.troponin was elevated at 0.40. Patient was admitted under our services with consultation to cardiology and neurology. Physical exam: Patient seen and fully evaluated at bedside this morning. Patient appears to be doing well he was alert to person, place, time, and situation. Patient had no noted neurological deficits upon examination and had no difficulties performing finger to nose and following simple commands. Patient denied having any headache, lightheadedness, dizziness, chest pain, palpitations, shortness of breath, or experiencing any numbness/tingling/weakness in his extremities. Vital signs reviewed and stable. General: Nontoxic, no distress and appears stated age. Derm: Skin warm and dry, normal coloration for ethnicity. Head: Atraumatic, normocephalic and symmetric. Eyes: EOMs intact, no lid lag, and anicteric sclera Mouth: no lip lesions, mucus membranes moist Cardiovascular: regular rate and rhythm with normal S1S2, no murmur, positive posterior tibial pulses bilaterally, and cap refill < 2 seconds. Lungs: Respirations even, regular, and unlabored on room air. Lungs CTA bilaterally, no rhonchi, no rales, no wheezing, and no accessory muscle usage. Abdominal: soft, nontender to palpation, no guarding, no appreciable organomegaly Ext: ROM intact. No gross muscle atrophy, no edema, no contractures Neuro: Speech clear, face symmetrical and CN II-XII grossly intact with no noted focal neuro deficits Psych: Alert and oriented to person, place, time, and situation. Appropriate and pleasant affect. Assessment and Plan of Care: Transient loss of consciousness, believed to be secondary to breakthrough seizure activity versus syncope Seizure history -Neurology following -Cardiology following -seizure precautions -MRI brain without contrast -EEG -Neurology increased Keppra to 750 mg twice daily Elevated troponins, flat secondary to chronic kidney disease stage IV. History of CAD Hypertension Hyperlipidemia -Cardiology followingt, appreciate further recommendations -Telemetry monitoring -Continue heart healthy diet -Continue cardiac medication regimen consisting of amlodipine, aspirin, atorvastatin, Lasix, and metoprolol. Metastatic adenocarcinoma of the lungs status post lobectomy/wedge resection COPD not home oxygen dependent -Oxygenation to be administered and titrated as needed to maintain SPO2 equal to or greater than 92% -Monitor Pulse-oximetry -Duonebs as needed for SOB and/or wheezing -Incentive Spirometry History of DVT -Continue anticoagulation with Xarelto CODE STATUS: full code DVT prophylaxis: Xarelto Discussed with: patient, RN, and neurology Anticipated discharge date: 1-[address]: home A total of 37 minutes was spent on the care of this complex patient more than 50% of the time was spent in counseling and care coordination. Objective - Vital Signs Vital signs: Vital Signs Temp 97.5 F L 04/26/22 08:00 Pulse 83 04/26/22 08:14 Resp 16 04/26/22 08:00 BP 121/53 04/26/22 10:52 Pulse Ox 95 04/26/22 08:04 FiO2 Intake & Output 04/25/22 04/26/22 04/26/22 18:59 06:59 18:59 Output Total 575 Balance -575 Weight 85.729 kg 85.729 kg Output: Urine 575 Other: Voiding Method Toilet Urinal - Labs CBC & Chem 7: 04/26/22 08:41 04/26/22 08:41 Labs: Abnormal Lab Results - Last 24 Hours (Table) 04/25/22 04/25/22 04/25/22 Range/Units 11:15 11:15 11:15 RBC 2.95 L (4.30-5.90) m/uL Hgb 9.4 L (13.0-17.5) gm/dL Hct 28.8 L (39.0-53.0) % RDW 16.5 H (11.5-15.5) % Plt Count 114 L D (150-450) k/uL Lymphocytes # 0.2 L (1.0-4.8) k/uL Chloride (98-107) mmol/L BUN 78 H (9-20) mg/dL Creatinine 2.85 H (0.66-1.25) mg/dL Glucose 238 H (74-99) mg/dL POC Glucose (mg/dL) (70-110) mg/dL Calcium 7.9 L (8.4-10.2) mg/dL Troponin I 0.036 H* (0.000-0.034) ng/mL Total Protein 5.2 L (6.3-8.2) g/dL Albumin 3.1 L (3.5-5.0) g/dL Urine Protein (Negative) Urine Glucose (UA) (Negative) 04/25/22 04/25/22 04/25/22 Range/Units 12:22 12:54 15:05 RBC (4.30-5.90) m/uL Hgb (13.0-17.5) gm/dL Hct (39.0-53.0) % RDW (11.5-15.5) % Plt Count (150-450) k/uL Lymphocytes # (1.0-4.8) k/uL Chloride (98-107) mmol/L BUN (9-20) mg/dL Creatinine (0.66-1.25) mg/dL Glucose (74-99) mg/dL POC Glucose (mg/dL) 259 H (70-110) mg/dL Calcium (8.4-10.2) mg/dL Troponin I 0.038 H* (0.000-0.034) ng/mL Total Protein (6.3-8.2) g/dL Albumin (3.5-5.0) g/dL Urine Protein 1+ H (Negative) Urine Glucose (UA) Trace H (Negative) 04/25/22 04/25/22 04/25/22 Range/Units 17:43 18:22 21:41 RBC (4.30-5.90) m/uL Hgb (13.0-17.5) gm/dL Hct (39.0-53.0) % RDW (11.5-15.5) % Plt Count (150-450) k/uL Lymphocytes # (1.0-4.8) k/uL Chloride (98-107) mmol/L BUN (9-20) mg/dL Creatinine (0.66-1.25) mg/dL Glucose (74-99) mg/dL POC Glucose (mg/dL) 261 H 275 H (70-110) mg/dL Calcium (8.4-10.2) mg/dL Troponin I 0.040 H* (0.000-0.034) ng/mL Total Protein (6.3-8.2) g/dL Albumin (3.5-5.0) g/dL Urine Protein (Negative) Urine Glucose (UA) (Negative) 04/25/22 04/26/22 04/26/22 Range/Units 22:45 08:41 08:41 RBC 2.78 L (4.30-5.90) m/uL Hgb 8.8 L (13.0-17.5) gm/dL Hct 26.9 L (39.0-53.0) % RDW 15.7 H (11.5-15.5) % Plt Count 111 L (150-450) k/uL Lymphocytes # 0.4 L (1.0-4.8) k/uL Chloride 108 H (98-107) mmol/L BUN 76 H (9-20) mg/dL Creatinine 3.08 H (0.66-1.25) mg/dL Glucose 106 H (74-99) mg/dL POC Glucose (mg/dL) 248 H (70-110) mg/dL Calcium 8.2 L (8.4-10.2) mg/dL Troponin I (0.000-0.034) ng/mL Total Protein 5.0 L (6.3-8.2) g/dL Albumin 2.9 L (3.5-5.0) g/dL Urine Protein (Negative) Urine Glucose (UA) (Negative)
--- NOTE | 2022-04-26 11:55 | US ---
EXAMINATION TYPE: US carotid duplex BILAT DATE OF EXAM: 04/26/2022 COMPARISON: CT, US CLINICAL HISTORY: syncope. Syncope. Prior smoker, patient states he has right carotid stent. Slightly poor historian. EXAM MEASUREMENTS: RIGHT: Peak Systolic Velocity (PSV) cm/sec ----- Right CCA: 94.3 ----- Right ICA: 135.0 ----- Right ECA: 181.0 ICA/CCA ratio: 1.4 RIGHT: End Diastole cm/sec ----- Right CCA: 18.0 ----- Right ICA: 31.7 ----- Right ECA: 9.1 LEFT: Peak Systolic Velocity (PSV) cm/sec ----- Left CCA: 112.9 ----- Left ICA: 104.3 ----- Left ECA: 180.3 ICA/CCA ratio: 0.9 LEFT: End Diastole cm/sec ----- Left CCA: 19.2 ----- Left ICA: 13.9 ----- Left ECA: 8.4 VERTEBRALS (direction of flow): Right Vertebral: Antegrade Left Vertebral: Antegrade Rhythm: Normal Appearance of stent within right bulb and right ICA. Elevated velocities within right ICA, right ECA, and left ECA. Plaque seen within left bulb and left prox ECA. IMPRESSION: No evidence for hemodynamically significant stenosis. Criteria for Assigning % of Stenosis / Diameter reduction (Estimation based on the indirect measurements of the internal carotid artery velocities (ICA PSV). 1. Normal (no stenosis)=ICA PSV < 125 cm/s: ratio < 2.0: ICA EDV<40 cm/s. 2. Less than 50% stenosis=ICA PSV < 125 cm/s: ratio < 2.0: ICA EDV<40 cm/s. 3. 50 to 69% stenosis=ICA PSV of 125 to 230 cm/s: ration 2.0 ? 4.0: ICA EDV 40-100 cm/s. 4. Greater than 70% stenosis to near occlusion= ICA PSV > 230 cm/s: ratio > 4.0: ICA EDV > 100 cm/s. 5. Near occlusion= ICA PSV velocities may be low or undetectable: variable ratio and ICA EDV. 6. Total occlusion=unable to detect flow.
[2022-04-26 12:09] LABS: Glucose,Whole Blood 305 mg/dL (70-110)
--- NOTE | 2022-04-26 14:27 | MR ---
EXAMINATION TYPE: MR brain wo con DATE OF EXAM: 04/26/2022 2:22 PM COMPARISON: 01/13/2021 HISTORY: Breakthrough seizure vs syncope, hx of lung ca FINDINGS: The ventricles, basal cisterns and sulci overlying the cerebral convexities are moderately enlarged. There is evidence of moderate periventricular white matter ischemic demyelination. Remote deep white matter insults are also noted. No acute edema is seen on diffusion weighted imaging. There is no evidence for midline shift or mass effect. Acute intracranial hemorrhage or extra-axial collection is not evident. The paranasal sinuses and mastoid air cells are well-aerated. IMPRESSION: Age-related atrophic and chronic small vessel ischemic change. No acute intracranial process at this time.
[2022-04-26 14:48] LABS: Chol/HDL Ratio 2.17 Ratio
--- NOTE | 2022-04-26 15:15 | EEG ---
ELECTROENCEPHALOGRAM REPORT DATE OF SERVICE: 04/26/2022 CLINICAL HISTORY: This is a 76-year-old gentleman with history of seizure who presented to the emergency department because of a syncopal episode. The video EEG is obtained to evaluate for seizure and epileptiform activity. RELEVANT MEDICATION: Keppra. EEG TYPE: A routine 21 channel EEG is performed with video using the 10/20 electrode placement system. DESCRIPTION: Wakefulness and drowsiness are obtained. During awake state, the posterior-dominant rhythm consists of low to moderate voltage of 9-9.5 hertz activity. There is no physiological stage 2 sleep architecture seen. There is no focal slowing. Interictal and ictal is none. Photic stimulation did not evoke a posterior driving response. There is no abnormality during the photic stimulation. Hyperventilation is not performed. CLINICAL INTERPRETATION: This is a normal routine EEG. There is no focal slowing, epileptiform discharges or seizure on the EEG. Clinical correlation is recommended. FANI / GILMAR: [id number] / MTDD
[2022-04-26 20:37] LABS: Glucose,Whole Blood 244 mg/dL (70-110)
[2022-04-26] MEDS: MAGNESIUM OXIDE 400 MG TAB PO SCH (20:53)
[2022-04-26] MEDS: ASPIRIN 81 MG PO SCH (20:53)
[2022-04-26] MEDS: PANTOPRAZOLE 40 MG TABLET PO SCH (20:53)
[2022-04-26] MEDS: RIVAROXABAN 15 MG TAB PO SCH (20:53)
[2022-04-26] MEDS: amLODIPine 10 MG TAB PO SCH (20:54)
[2022-04-26] MEDS: ATORVASTATIN 20 MG TAB PO SCH (20:55)
[2022-04-26] MEDS: INSULIN DETEMIR (LEVEMIR) 100 UNIT/ML SYR SQ SCH (20:56)
[2022-04-27 06:04] LABS: Glucose,Whole Blood 194 mg/dL (70-110)
[2022-04-27] MEDS: LEVOTHYROXINE 25 MCG TAB PO SCH (06:32)
[2022-04-27] MEDS: INSULIN ASPART (NovoLOG) 100 UNIT/ML VIAL SQ SCH ×2 (06:32→12:23)
[2022-04-27] MEDS: IPRATROPIUM-ALBUTEROL 3 ML NEB INHALATION SCH (08:27)
[2022-04-27] MEDS: FUROSEMIDE 40 MG TAB PO SCH (09:20)
[2022-04-27] MEDS: METOPROLOL TARTRATE 25 MG TAB PO SCH (09:20)
[2022-04-27] MEDS: TROSPIUM CHLORIDE 20 MG TABLET PO SCH (09:20)
[2022-04-27] MEDS: HYDROcodone/APAP 7.5-325MG 1 EACH TAB PO PRN (09:24)
--- NOTE | 2022-04-27 10:00 | P.DS ---
Providers Date of admission: 04/26/22 13:13 Expected date of discharge: 04/27/22 Attending physician: Juan Turcios MD Consults: 04/25/22 14:28 Consult Physician Urgent Consulting Provider: [facility] Consult Reason/Comments: Elevated troponin, syncope Do you want consulting provider notified?: Yes 04/26/22 09:24 Consult Physician Urgent Consulting Provider: David Mccain Consult Reason/Comments: syncope Do you want consulting provider notified?: Already Contacted Primary care physician: Renzo Boyer Hospital Course: Discharge Diagnosis: Transient loss of consciousness, believed to be secondary to breakthrough seizure activity. Keppra was increased to 750 mg twice daily. Patient to continue to follow up outpatient with his neurologist Dr. Kenyon. Seizure history Elevated troponins, flat secondary to chronic kidney disease stage IV. Patient to continue to follow up outpatient with his PCP Dr. Riley and denitrator Dr. Dominique. History of CAD, Continue cardiac medication regimen consisting of amlodipine, aspirin, atorvastatin, Lasix, and metoprolol. Hypertension Hyperlipidemia Metastatic adenocarcinoma of the lungs status post lobectomy/wedge resection COPD not home oxygen dependent History of DVT. Continue anticoagulation with Xarelto Hospital Course: Patient is a very pleasant 76-year-old male with a past medical history of metastatic adenocarcinoma of the lungs status post lobectomy/wedge resection, COPD not home oxygen dependent, chronic kidney disease stage IV, CAD with stents, hypertension, hyperlipidemia, DVT on anticoagulation with Xarelto, and seizure history. Patient presented to the emergency department with a chief comp laint of possible syncopal episode. Patient was reportedly at a restaurant with his family when he appeared to be going in and out of consciousness followed by an episode of vomiting and confusion upon regaining consciousness. he was seen and fully evaluated in the emergency department.an EKG was completed showing normal sinus rhythm at 76 bpm with no noted T-wave or ST abnormalities. Chest x-ray was negative for acute cardiopulmonary process. CBC revealed normocytic normochromic anemia with hemoglobin of 9.4 and thrombocytopenia with platelet count of 114. BMP revealing elevated renal function consistent with CK ED with BUN 78, creatinine 2.85, and GFR of 21.troponin was elevated at 0.40. Patient was admitted under our services with consultation to cardiology and neurology. Patient was evaluated by cardiology and neurology. Keppra was increased to 750 mg twice daily. Carotid Dopplers completed showing no evidence for hemodynamically significant stenosis. EEG normal findings negative for any Epileptiform discharges. Brain MRI negative for acute intercranial process revealing age-related atrophic and chronic small vessel ischemic changes. Patient continues to be free from any further episodes or complaints since arrival and has had no noted neurological deficits. Vital signs unremarkable. Patient is medically stable for discharge at this time. Prescription sent for increase in Keppra to 750 mg twice daily. Discharge instructions given to both patient and his son at bedside and all questions were answered. Patient discharged home with homecare. Physical exam: Vital signs reviewed and stable. General: Nontoxic, no distress and appears stated age. Derm: Skin warm and dry, normal coloration for ethnicity. Head: Atraumatic, normocephalic and symmetric. Eyes: EOMs intact, no lid lag, and anicteric sclera Mouth: no lip lesions, mucus membranes moist Cardiovascular: regular rate and rhythm with normal S1S2, no murmur, positive posterior tibial pulses bilaterally, and cap refill < 2 seconds. Lungs: Respirations even, regular, and unlabored on room air. Lungs CTA bilaterally, no rhonchi, no rales, no wheezing, and no accessory muscle usage. Abdominal: soft, nontender to palpation, no guarding, no appreciable organomegaly Ext: ROM intact. No gross muscle atrophy, no edema, no contractures Neuro: Speech clear, face symmetrical and CN II-XII grossly intact with no noted focal neuro deficits Psych: Alert and oriented to person, place, time, and situation. Appropriate and pleasant affect. A total of 38 minutes of time were spent preparing this complex discharge summary. Pt was discharged on 04/27/22 at 9:53 AM. Patient Condition at Discharge: Stable Plan - Discharge Summary Discharge Rx Participant: No New Discharge Prescriptions: New levETIRAcetam [Keppra] 750 mg PO Q12HR 60 Days #60 tab Continue Simvastatin [Zocor] 40 mg PO HS amLODIPine [Norvasc] 10 mg PO HS Metoprolol Tartrate 25 mg PO BID #60 tab Omeprazole 20 mg PO HS Levothyroxine Sodium [Synthroid] 25 mcg PO DAILY@0630 30 Days #30 tab Rivaroxaban [Xarelto] 15 mg PO HS Solifenacin Succinate [Vesicare] 10 mg PO HS Ergocalciferol [Vitamin D2 (1250 Mcg = 11943 Iu)] 1,250 mcg PO TU Insulin Degludec [Tresiba Flextouch U-100 Pen] 15 units SQ HS Aspirin [Adult Low Dose Aspirin EC] 81 mg PO HS Magnesium Oxide [Mag-Ox] 400 mg PO HS Furosemide [Lasix] 40 mg PO DAILY Ipratropium-Albuterol Nebulize [Duoneb 0.5 mg-3 mg/3 ml Soln] 3 ml INHALATION RT-BID Insulin Aspart [NovoLOG Flexpen] See Protocol SQ AC-TID HYDROcodone/APAP 7.5-325MG [[place] 7.5-325] 1 tab PO BID PRN PRN Reason: Pain Discontinued levETIRAcetam [Keppra] 500 mg PO BID Discharge Medication List Simvastatin [Zocor] 40 mg PO HS 07/30/19 [History] amLODIPine [Norvasc] 10 mg PO HS 07/30/19 [History] Metoprolol Tartrate 25 mg PO BID #60 tab 09/10/19 [Rx] Omeprazole 20 mg PO HS 07/06/20 [History] Levothyroxine Sodium [Synthroid] 25 mcg PO DAILY@0630 30 Days #30 tab 07/08/20 [Rx] Rivaroxaban [Xarelto] 15 mg PO HS 01/12/21 [History] Solifenacin Succinate [Vesicare] 10 mg PO HS 01/12/21 [History] Furosemide [Lasix] 40 mg PO DAILY 06/03/21 [History] Ipratropium-Albuterol Nebulize [Duoneb 0.5 mg-3 mg/3 ml Soln] 3 ml INHALATION RT-BID 10/14/21 [History] Aspirin [Adult Low Dose Aspirin EC] 81 mg PO HS 02/27/22 [History] Ergocalciferol [Vitamin D2 (1250 Mcg = 32741 Iu)] 1,250 mcg PO TU 02/27/22 [History] Insulin Aspart [NovoLOG Flexpen] See Protocol SQ AC-TID 02/27/22 [History] Insulin Degludec [Tresiba Flextouch U-100 Pen] 15 units SQ HS 02/27/22 [History] Magnesium Oxide [Mag-Ox] 400 mg PO HS 02/27/22 [History] HYDROcodone/APAP 7.5-325MG [[place] 7.5-325] 1 tab PO BID PRN 04/01/22 [History] levETIRAcetam [Keppra] 750 mg PO Q12HR 60 Days #60 tab 04/27/22 [Rx] Follow up Appointment(s)/Referral(s): Renzo Boyer MD [Primary Care Provider] - 1-2 days Shaji Kenyon MD [REFERRING] - [facility] [[facility]] - Activity/Diet/Wound Care/Special Instructions: Activity: As tolerated. Take breaks as needed. Diet: Heart healthy and carb consistent diet. Avoid salts, or foods with hidden salts such as canned or boxed foods and frozen dinners. Extra salt makes your heart work harder and traps the fluid in your body for longer. Special Instructions: Take all of your medications as directed and remember to keep all of your doctor's appointments and follow-up as needed. Thank you for allowing us to participate in your care, it was truly a pleasure having you for our patient!!!!! Discharge Disposition: HOME SELF-CARE
[2022-04-27 11:46] VITALS: BP 129/65; RESP 15; TEMP 97.8
[2022-04-27 12:05] LABS: Glucose,Whole Blood 251 mg/dL (70-110)
--- NOTE | 2022-04-27 12:49 | P.PN ---
Subjective Progress Note Date: 04/27/22 HISTORY OF PRESENT ILLNESS: This is a 79-year-old male with a past medical history significant for lung cancer, COPD, coronary artery disease, DVT, and carotid disease with previous right carotid endarterectomy. Patient states he has an appointment to establish care in the office with Dr. Crane. We have been asked to see the patient in consultation for syncope. Patient examined at the bedside. Patient states yesterday he was out to eat with his son and was feeling in his normal state of health. He denied feeling any chest pain or shortness of breath. He does report feeling a little bit dizzy. He states that he began to feel nauseous and began vomiting. He is unsure if he lost consciousness but states that his daughter told him that she believed he did. He denied any loss of bowel or bladder. Denied biting his tongue. The patient denies having any previous sy ncopal episodes. The patient reports a history of lung cancer and states he is on chemotherapy and his last treatment was last . He is a former cigarette smoker and states he quit smoking 25 years ago. * EKG reveals sinus mechanism with T-wave inversions in lead 3, unchanged from previous EKG * Chest xray negative for acute process * Laboratory data: W BC 3.8. Hemoglobin 8.8. Sodium 140. Potassium 4.2. BUN 76. Creatinine 3.08. Troponin 0.036. 0.03. 0.040. * Current home cardiac medications include amlodipine 10 mg at night, simvastatin 40 mg at night, Xarelto 15 mg at night, metoprolol tartrate 25 mg twice a day, Lasix 40 mg daily, aspirin 81 mg at night * Most recent echocardiogram obtained in March 2022 revealed moderate LVH, ejection fraction 55-60%, mild tricuspid regurgitation. * Cardiac catheterization history: August 2018 revealing chronic occluded nondominant right coronary artery, severe diffuse disease and a small second obtuse marginal branch with moderate disease in the proximal and distal left circumflex. Moderate disease in the proximal LAD that is non-hemodynamically significant by fractional flow reserve. Medical management was recommended. 04/27/2022 Patient examined this morning at the bedside. Patient denies chest pain or pre ssure. He denies shortness of breath. Telemetry reveals sinus mechanism. No further episodes of syncope or lightheadedness. PHYSICAL EXAM: VITAL SIGNS: Reviewed. GENERAL: Well-developed in no acute distress. HEENT: Head is normocephalic. Pupils are equal, round. Sclerae anicteric. Mucous membranes of the mouth are moist. Neck supple. No JVD or thyromegaly LUNGS: Respirations even and unlabored. Lungs with expiratory wheezing noted HEART: Regular rate and rhythm. S1 and S2 heard. ABDOMEN: Soft. Nondistended. Nontender. EXTREMITIES: Normal range of motion. No clubbing or cyanosis. Peripheral pulses intact. No lower extremity edema NEUROLOGIC: Awake and alert. Oriented x 3. ASSESSMENT: Syncope Chronic kidney disease Abnormal troponins, secondary to CKD, no evidence of acute coronary syndrome Coronary artery disease History of DVT on Xarelto Carotid disease with previous right CEA Lung cancer, on chemotherapy Hypertension Hyperlipidemia PLAN: Continue current cardiac medications Patient to receive event monitor at the time of discharge Patient is stable for discharge home today from a cardiac standpoint Nurse practitioner note has been reviewed by physician. Signing provider agrees with the documented findings, assessment, and plan of care. Objective - Vital Signs Vital signs: Vital Signs Temp 97.8 F 04/27/22 11:45 Pulse 80 04/27/22 11:45 Resp 15 04/27/22 11:45 BP 129/65 04/27/22 11:45 Pulse Ox 98 04/27/22 11:45 FiO2 Intake & Output 04/26/22 04/27/22 04/27/22 18:59 06:59 18:59 Intake Total 1080 240 Balance 1080 240 Intake: Oral 1080 240 Other: Voiding Method Toilet Toilet Toilet Urinal Urinal Urinal # Voids 1 - Labs CBC & Chem 7: 04/26/22 08:41 04/26/22 08:41 Labs: Abnormal Lab Results - Last 24 Hours (Table) 04/26/22 04/26/22 04/27/22 Range/Units 08:41 20:34 05:59 POC Glucose (mg/dL) 244 H 194 H (70-110) mg/dL HDL Cholesterol 35.40 L (40.00-60.00) mg/dL 04/27/22 Range/Units 11:58 POC Glucose (mg/dL) 251 H (70-110) mg/dL HDL Cholesterol (40.00-60.00) mg/dL
--- NOTE | 2022-04-27 13:04 | P.PN ---
Subjective Progress Note Date: 04/27/22 The patient is seen at bedside in no further syncopal episodes. No seizure-like episodes noted in our facility. Objective - Vital Signs Vital signs: Vital Signs Temp 97.8 F 04/27/22 11:45 Pulse 80 04/27/22 11:45 Resp 15 04/27/22 11:45 BP 129/65 04/27/22 11:45 Pulse Ox 98 04/27/22 11:45 FiO2 Intake & Output 04/26/22 04/27/22 04/27/22 18:59 06:59 18:59 Intake Total 1080 240 Balance 1080 240 Intake: Oral 1080 240 Other: Voiding Method Toilet Toilet Toilet Urinal Urinal Urinal # Voids 1 - Exam GENERAL: The patient is lying in bed and is not in acute distress. NEUROLOGICAL: Higher mental function: The patient is awake, alert, oriented to self, place and time. Patient is following commands. No aphasia and no neglect. Cranial nerves: The pupils are round, equal and reactive to light and accommodation. Visual wright are full to confrontation throughout. Extraocular movement is intact no nystagmus is noted. Facial sensation is normal to touch throughout. The facial strength is normal throughout. Hearing is mildly decreased bilaterally to hand rub. Tongue is midline and moved [id number] without any difficulty. No dysarthria is noted. Shoulder shrug is normal bilaterally. Motor: The strength is 5 over 5 throughout. Normal tone and bulk. Patient has action tremor. Cerebellum: Normal finger to nose bilaterally. Sensation: Sensation is normal to touch throughout. Reflexes (right/left): 1+ throughout. Plantars are downgoing bilaterally. SOME OF THE WORK-UP IN OUR FACILITY CONSISTED OF: Orthostatics is negative. Routine EEG is normal There is no focal slowing, epileptiform discharges or seizure on EEG. MRI of the brain is reported as age-related atrophic and chronic small vessel is chemic change. No acute intracranial process seen at this time Carotid duplex was reported as no evidence for hemodynamically significant stenosis. - Labs CBC & Chem 7: 04/26/22 08:41 04/26/22 08:41 Labs: Abnormal Lab Results - Last 24 Hours (Table) 04/26/22 04/26/22 04/27/22 Range/Units 08:41 20:34 05:59 POC Glucose (mg/dL) 244 H 194 H (70-110) mg/dL HDL Cholesterol 35.40 L (40.00-60.00) mg/dL 04/27/22 Range/Units 11:58 POC Glucose (mg/dL) 251 H (70-110) mg/dL HDL Cholesterol (40.00-60.00) mg/dL Assessment and Plan Assessment: Syncopal episode. Unsure exact cause. Cannot rule out seizure especially with prior episode of seizure. Routine EEG is normal. History of reported one seizure in past Metastatic adenocarcinoma of the lung s/p resection (reported as left upper lobectomy and right lobe) with immunotherapy History of possible TIA History of carotid stenosis status post stent in 2020 DM History of hypertension Hyperlipidemia Chronic kidney insufficiency Former tobacco Plan: Recommend as an outpatient MRI of the brain with once the kidney function is improved to assess if any metastases to the brain. 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 Increase Keppra from 500 mg 1 tablet twice a day to 750 one tablet twice a day during this admission. Every 4 hours neuro checks Cardiology will discharge him on event monitor. We'll defer the rest of the medical management to the primary team Upon discharge recommend the patient to follow-up with his neurologist within 1- 2 weeks as an outpatient (Dr. Kenyon). The plan is discussed with the patient, his son (who is at bedside) and the primary team. There is no further neurological work-up and patient is clear for discharge. David Mccain M.D. Neuro-Hospitalist Time with Patient: Less than 30
[2022-04-27 14:30] VITALS: PULSE 82
[2022-05-02] MEDS ORDERED: ERGOCALCIFEROL 1,250 MCG (50,000 IU) CAPSULE PO SCH (09:00)
== END 2022-04-27 14:12 | disposition home health service (06) | DRG 312 ==
LOC: EC 10:59 → 3SCARD 14:28 → OBSVTOIN 04-26 13:13
PROVIDERS: ADMIT Internal Medicine; ATTEND Internal Medicine
PROC: 4A10X4Z Monitoring of Central Nervous Electrical Activity, External Approach (ICD-10-PCS; principal; 2022-04-26)
DX: R55 Syncope and collapse (principal); N18.4 Chronic kidney disease, stage 4 (severe); C79.9 Secondary malignant neoplasm of unspecified site; C34.90 Malignant neoplasm of unspecified part of unspecified bronchus or lung; E11.22 Type 2 diabetes mellitus with diabetic chronic kidney disease; G40.909 Epilepsy, unspecified, not intractable, without status epilepticus; R79.89 Other specified abnormal findings of blood chemistry; J40 Bronchitis, not specified as acute or chronic; K59.09 Other constipation; I65.29 Occlusion and stenosis of unspecified carotid artery; I12.9 Hypertensive chronic kidney disease with stage 1 through stage 4 chronic kidney disease, or unspecified chronic kidney disease; I25.10 Atherosclerotic heart disease of native coronary artery without angina pectoris; G31.89 Other specified degenerative diseases of nervous system; J44.9 Chronic obstructive pulmonary disease, unspecified; N40.0 Benign prostatic hyperplasia without lower urinary tract symptoms; D64.9 Anemia, unspecified; D69.6 Thrombocytopenia, unspecified; I07.1 Rheumatic tricuspid insufficiency; E78.5 Hyperlipidemia, unspecified; I25.2 Old myocardial infarction; Z79.01 Long term (current) use of anticoagulants; Z79.4 Long term (current) use of insulin; Z79.82 Long term (current) use of aspirin; Z79.890 Hormone replacement therapy; Z79.899 Other long term (current) drug therapy; Z83.3 Family history of diabetes mellitus; Z86.718 Personal history of other venous thrombosis and embolism; Z86.73 Personal history of transient ischemic attack (TIA), and cerebral infarction without residual deficits; Z87.891 Personal history of nicotine dependence; Z90.2 Acquired absence of lung [part of]; Z99.81 Dependence on supplemental oxygen; Z85.118 Personal history of other malignant neoplasm of bronchus and lung; Z90.49 Acquired absence of other specified parts of digestive tract; Z87.19 Personal history of other diseases of the digestive system; Z98.42 Cataract extraction status, left eye; Z98.41 Cataract extraction status, right eye
CPT/HCPCS: 36415; 70551; 71046; 80053; 80061; 81001; 83880; 84484; 85025; 85610; 85730; 93005; 93270; 93880; 94640; 95816; 99285

== ENCOUNTER 2022-06-13 07:51 | Day surgery (SDC) | payer MEDICARE, OTHER ==
[2022-06-12 12:15] VITALS: BMI 24.4
[~2022-06-13 07:51] MED LIST changes: +LIDOCAINE 1% (10MG/ML) FOR IV START INTRADERMA PRN
[2022-06-13 08:07] VITALS: TEMP 97
[2022-06-13 08:18] LABS: Glucose,Whole Blood 73 mg/dL (70-110)
[2022-06-13] MEDS ORDERED: DEXTROSE 50% SYRINGE 50 ML IVP ONE (08:20)
[2022-06-13 08:46] LABS: Glucose,Whole Blood 98 mg/dL (70-110)
[2022-06-13] MEDS ORDERED: LIDOCAINE 2% INJ 20 MG/ML (2 ML VIAL) ONE (08:59)
[2022-06-13] MEDS ORDERED: PROPOFOL 10 MG/ML 20 ML VIAL IV ONE (08:59)
--- NOTE | 2022-06-13 09:12 | P.PCN ---
Date of Procedure: 06/13/22 Procedure(s) Performed: BRIEF HISTORY: Patient is a 76-year-old, pleasant, white male scheduled for an upper endoscopy as a part of evaluation of intermittent dysphagia to solids for the last 2 years duration. Symptoms are worse in the last 3 weeks pounds.. PROCEDURE PERFORMED: Esophagogastroduodenoscopy with biopsy. PREOPERATIVE DIAGNOSIS: Intermittent dysphagia to solids. IV sedation per anesthesia. PROCEDURE: After informed consent was obtained, the patient was brought into the endoscopy unit. IV sedation was administered by Anesthesia under continuous monitoring. Initially the Olympus GIF-140 video endoscope was inserted into the mouth. Esophagus intubated without any difficulty. It was gradually advanced into the stomach and duodenum and carefully examined. The bulb and the second part of the duodenum appeared normal. The scope at this time was withdrawn to the stomach, adequately insufflated with air, and upon careful examination, mucosa of the antrum had diffuse gastritis and biopsies were done from this area., body, cardia and the fundus appeared normal. The scope was then withdrawn into the esophagus. The GE junction was located at 39 cm from the incisors. The esophagus appeared normal. There were no erosions or ulcerations seen. There was no evidence of esophageal stricture. Biopsies were done from the distal esophagus and the patient tolerated the procedure well. IMPRESSION: 1. Normal-appearing esophagus with no evidence of esophagitis or esophageal stricture. 2. Mild to moderate diffuse antral gastritis. RECOMMENDATIONS: The findings of this examination were discussed with the patient as well as his family. He was advised to follow with the biopsy re sulpascale. Recommended diet modification esophagus and soft foods.
[2022-06-13 09:34] LABS: Glucose,Whole Blood 117 mg/dL (70-110)
[2022-06-13 09:51] VITALS: BP 121/55; PULSE 64; RESP 20
== END 2022-06-13 10:05 ==
LOC: ORWHC2ENDO 07:51
PROVIDERS: ATTEND Internal Medicine Gastroenterology
DX: K29.50 Unspecified chronic gastritis without bleeding (principal); I25.10 Atherosclerotic heart disease of native coronary artery without angina pectoris; Z95.5 Presence of coronary angioplasty implant and graft; I10 Essential (primary) hypertension; E78.5 Hyperlipidemia, unspecified; I73.9 Peripheral vascular disease, unspecified; Z85.118 Personal history of other malignant neoplasm of bronchus and lung; E07.9 Disorder of thyroid, unspecified; N28.9 Disorder of kidney and ureter, unspecified; K21.9 Gastro-esophageal reflux disease without esophagitis; R56.9 Unspecified convulsions; Z79.899 Other long term (current) drug therapy; Z79.01 Long term (current) use of anticoagulants; Z79.82 Long term (current) use of aspirin; Z79.4 Long term (current) use of insulin; Z79.890 Hormone replacement therapy; Z87.891 Personal history of nicotine dependence; Z83.3 Family history of diabetes mellitus; Z82.49 Family history of ischemic heart disease and other diseases of the circulatory system
CPT/HCPCS: 88305; 43239; J2704; J2001

== ENCOUNTER → 2022-06-20 | Outpatient (CLI) | payer MEDICARE, OTHER ==
--- NOTE | 2022-06-20 14:45 | XR ---
EXAMINATION TYPE: XR chest 2V DATE OF EXAM: 06/20/2022 COMPARISON: 04/25/2022 HISTORY: Shortness of breath TECHNIQUE: Frontal and lateral views of the chest are obtained. FINDINGS: Scattered senescent parenchymal changes noted. Hyperinflation compatible with COPD. No evidence for infiltrate. No evidence for atelectasis. Heart size is stable. Mediastinal structures are stable and grossly unremarkable. No evidence for hilar prominence. Degenerative changes dorsal spine. IMPRESSION: 1. No evidence for acute pulmonary disease.
== END | disposition home or self-care (01) ==
LOC: RADXRMAIN 14:21
PROVIDERS: ATTEND Internal Medicine Hematology & Oncology
DX: C34.12 Malignant neoplasm of upper lobe, left bronchus or lung (principal); D64.81 Anemia due to antineoplastic chemotherapy; R05.1 Acute cough; N18.9 Chronic kidney disease, unspecified
CPT/HCPCS: 71046

== ENCOUNTER 2022-07-06 13:08 | Inpatient (IN) | payer MEDICARE, OTHER ==
[2022-07-06] MEDS ORDERED: IPRATROPIUM 0.5 MG/2.5 ML NEBU INHALATION STA (13:34)
[2022-07-06] MEDS ORDERED: ALBUTEROL NEBULIZED 2.5 MG/3 ML INHALATION STA (13:34)
[2022-07-06] MEDS ORDERED: methylPREDNISolone SOD SUCCI 125 MG/2 ML VIAL IV STA (13:34)
--- NOTE | 2022-07-06 13:38 | ED ---
General Adult HPI - General Chief complaint: Shortness of Breath Stated complaint: REGINA Time Seen by Provider: 07/06/22 13:25 Source: patient, EMS, RN notes reviewed, old records reviewed Mode of arrival: EMS Limitations: no limitations - History of Present Illness Initial comments: This is a 76-year-old male who presents emergency Department with a past medical history significant for COPD per patient states he woke up today and had difficulty breathing and he took some breathing treatments but they breathing got continuously worse so he called any recent head himself brought to the emergency department. Patient denies any fever chills. Patient states he does have an occasional cough per patient denies any chest pain or palpitations. Patient denies abdominal pain patient denies nausea vomiting diarrhea. Patient denies any headache patient denies lightheadedness or dizziness. Patient denies any near syncopal episode. Patient denies any swelling to the legs or calf tenderness. - Related Data Home Medications Medication Instructions Recorded Confirmed amLODIPine [Norvasc] 10 mg PO HS 07/30/19 07/06/22 Omeprazole 20 mg PO HS 07/06/20 07/06/22 Rivaroxaban [Xarelto] 15 mg PO DAILY 01/12/21 07/06/22 Solifenacin Succinate [Vesicare] 10 mg PO HS 01/12/21 07/06/22 Furosemide [Lasix] 40 mg PO BID 06/03/21 07/06/22 Ipratropium-Albuterol Nebulize 3 ml INHALATION RT-QID 10/14/21 07/06/22 [Duoneb 0.5 mg-3 mg/3 ml Soln] Aspirin [Adult Low Dose Aspirin EC] 81 mg PO HS 02/27/22 07/06/22 Insulin Aspart [NovoLOG Flexpen] See Protocol SQ AC-TID 02/27/22 07/06/22 Levothyroxine Sodium [Synthroid] 25 mcg PO DAILY 06/12/22 07/06/22 allopurinoL [Zyloprim] 100 mg PO DAILY 06/12/22 07/06/22 Ferrous Sulfate [Feosol] 325 mg PO DAILY 07/06/22 07/06/22 Insulin Degludec [Tresiba 12 units SQ HS 07/06/22 07/06/22 Flextouch U-100 Pen] Simvastatin [Zocor] 20 mg PO HS 07/06/22 07/06/22 levETIRAcetam [Keppra] 500 mg PO BID 07/06/22 07/06/22 Previous Rx's Medication Instructions Recorded Metoprolol Tartrate 25 mg PO BID #60 tab 09/10/19 Allergies Allergy/AdvReac Type Severity Reaction Status Date / Time No Known Allergies Allergy Verified 07/06/22 14:55 Review of Systems ROS Statement: Those systems with pertinent positive or pertinent negative responses have been documented in the HPI. ROS Other: All systems not noted in ROS Statement are negative. Past Medical History Past Medical History: Cancer, COPD, CVA/TIA, Diabetes Mellitus, Deep Vein Thrombosis (DVT), GERD/Reflux, Hyperlipidemia, Hypertension, Renal Disease, Seizure Disorder, Thyroid Disorder Additional Past Medical History / Comment(s): 07/2018 L lung cancer with left upper lobectomy., R lower lobe cancer in August 2019 and had wedge resection and immunotherapy., bronchitis, TIA and seizure after bronchoscopy in 2017, DVT L leg, IDDM type II, chronic cervical/back pain, BPH, stage III kidney diseas e, chronic constipation ., dysphagia with wt loss., states spot on spine L-3., states he thinks he has a sore on his INNER THIGH ., hx of carotid stenosis with stent 06/03/2021.DVT LEFT LEG Last Myocardial Infarction Date:: 05/24/12 History of Any Multi-Drug Resistant Organisms: None Reported Past Surgical History: Back Surgery, Cholecystectomy, Heart Catheterization, Heart Catheterization With Stent, Hernia Repair, Tonsillectomy Additional Past Surgical History / Comment(s): 2018 Bronchoscopy with bx, 2017 L upper lobectomy at [facility], August 2019 R lower lung wedge resection, low back surgery, umbilical hernia repair, bilateral cataract removals ., right transcarotid artery revasculazation with stent May 2021, COLONOSCOPY Past Anesthesia/Blood Transfusion Reactions: Previous Problems w/ Anesthesia Additional Past Anesthesia/Blood Transfusion Reaction / Comment(s): Seizure and mini stroke following lung biopsy Date of Last Stent Placement:: 06/03/2021-CAROTID STENT Past Psychological History: No Psychological Hx Reported Smoking Status: Former smoker Past Alcohol Use History: None Reported Past Drug Use History: None Reported - Past Family History Mother Family Medical History: No Reported History Additional Family Medical History / Comment(s): Mother was healthy Father Family Medical History: Diabetes Mellitus, Deep Vein Thrombosis (DVT) Additional Family Medical History / Comment(s): Father of diabetes at the age of 83 yrs. General Exam - General Exam Comments Initial Comments: GENERAL: Patient is well-developed and well-nourished. Patient is nontoxic and well- hydrated and is in moderate distress. ENT: Neck is soft and supple. No significant lymphadenopathy is noted. Oropharynx is clear. Moist mucous membranes. Neck has full range of motion without eliciting any pain. EYES: The sclera were anicteric and conjunctiva were pink and moist. Extraocular movements were intact and pupils were equal round and reactive to light. Eyelids were unremarkable. PULMONARY: Patient has expiratory wheezing diffusely and moving poor air volume CARDIOVASCULAR: There is a regular rate and rhythm without any murmurs gallops or rubs. ABDOMEN: Soft and nontender with normal bowel sounds. SKIN: Skin is clear with no lesions or rashes and otherwise unremarkable. NEUROLOGIC: Patient is alert and oriented x3. Cranial nerves II through XII are grossly intact. Motor and sensory are also intact. Normal speech, volume and content. Symmetrical smile. MUSCULOSKELETAL: Normal extremities with adequate strength and full range of motion. No lower extremity swelling or edema. No calf tenderness. LYMPHATICS: No significant lymphadenopathy is noted PSYCHIATRIC: Normal psychiatric evaluation. Limitations: no limitations Course Vital Signs 07/06/22 07/06/22 07/06/22 13:30 13:32 14:51 Temperature 99.3 F Pulse Rate 106 H 94 Respiratory 20 22 Rate Blood Pressure 128/80 O2 Sat by Pulse 92 L Oximetry Medical Decision Making - Medical Decision Making Chest x-ray shows no acute abnormality. EKG shows sinus rhythm at 90 bpm MI interval 177 QRS is 86 QT interval 337 QTC is 35 per patient's EKG shows no ST segment or depression. Patient received multiple breathing treatments in the emergency department as well as steroids Patient did show some mild improvement however he was not back to his baseline. Patient was hypomagnesemic so I gave her magnesium sulfate. I spoke with Dr. mendez he agreed to admit the patient admitted the patient and I continued breathing treatments and steroid on the floor. - Lab Data Result diagrams: 07/06/22 14:13 07/06/22 14:13 Lab Results 07/06/22 07/06/22 07/06/22 Range/Units 14:13 14:13 14:13 WBC 7.7 (3.8-10.6) k/uL RBC 3.31 L (4.30-5.90) m/uL Hgb 10.2 L (13.0-17.5) gm/dL Hct 32.1 L (39.0-53.0) % MCV 97.2 (80.0-100.0) fL MCH 30.9 (25.0-35.0) pg MCHC 31.8 (31.0-37.0) g/dL RDW 15.4 (11.5-15.5) % Plt Count 211 (150-450) k/uL MPV 7.9 Neutrophils % 89 % Lymphocytes % 3 % Monocytes % 4 % Eosinophils % 2 % Basophils % 0 % Neutrophils # 6.8 (1.3-7.7) k/uL Lymphocytes # 0.3 L (1.0-4.8) k/uL Monocytes # 0.3 (0-1.0) k/uL Eosinophils # 0.1 (0-0.7) k/uL Basophils # 0.0 (0-0.2) k/uL Hypochromasia Slight Sodium 136 L (137-145) mmol/L Potassium 4.7 (3.5-5.1) mmol/L Chloride 103 (98-107) mmol/L Carbon Dioxide 21 L (22-30) mmol/L Anion Gap 12 mmol/L BUN 50 H (9-20) mg/dL Creatinine 2.46 H (0.66-1.25) mg/dL Est GFR (CKD-EPI)AfAm 29 (>60 ml/min/1.73 sqM) Est GFR (CKD-EPI)NonAf 25 (>60 ml/min/1.73 sqM) Glucose 206 H (74-99) mg/dL Plasma Lactic Acid Nehemias 1.6 (0.7-2.0) mmol/L Calcium 8.8 (8.4-10.2) mg/dL Magnesium 1.1 L (1.6-2.3) mg/dL Total Bilirubin 0.4 (0.2-1.3) mg/dL AST 24 (17-59) U/L ALT 27 (4-49) U/L Alkaline Phosphatase 99 (38-126) U/L Troponin I (0.000-0.034) ng/mL NT-Pro-B Natriuret Pep pg/mL Total Protein 6.0 L (6.3-8.2) g/dL Albumin 3.1 L (3.5-5.0) g/dL 07/06/22 07/06/22 Range/Units 14:13 14:13 WBC (3.8-10.6) k/uL RBC (4.30-5.90) m/uL Hgb (13.0-17.5) gm/dL Hct (39.0-53.0) % MCV (80.0-100.0) fL MCH (25.0-35.0) pg MCHC (31.0-37.0) g/dL RDW (11.5-15.5) % Plt Count (150-450) k/uL MPV Neutrophils % % Lymphocytes % % Monocytes % % Eosinophils % % Basophils % % Neutrophils # (1.3-7.7) k/uL Lymphocytes # (1.0-4.8) k/uL Monocytes # (0-1.0) k/uL Eosinophils # (0-0.7) k/uL Basophils # (0-0.2) k/uL Hypochromasia Sodium (137-145) mmol/L Potassium (3.5-5.1) mmol/L Chloride (98-107) mmol/L Carbon Dioxide (22-30) mmol/L Anion Gap mmol/L BUN (9-20) mg/dL Creatinine (0.66-1.25) mg/dL Est GFR (CKD-EPI)AfAm (>60 ml/min/1.73 sqM) Est GFR (CKD-EPI)NonAf (>60 ml/min/1.73 sqM) Glucose (74-99) mg/dL Plasma Lactic Acid Nehemias (0.7-2.0) mmol/L Calcium (8.4-10.2) mg/dL Magnesium (1.6-2.3) mg/dL Total Bilirubin (0.2-1.3) mg/dL AST (17-59) U/L ALT (4-49) U/L Alkaline Phosphatase (38-126) U/L Troponin I 0.032 (0.000-0.034) ng/mL NT-Pro-B Natriuret Pep 509 pg/mL Total Protein (6.3-8.2) g/dL Albumin (3.5-5.0) g/dL Disposition Clinical Impression: COPD exacerbation, Hypomagnesemia Disposition: ADMITTED IP TO THIS HOSP Referrals: Renzo Boyer MD [Primary Care Provider] - 1-2 days Time of Disposition: 14:56
[2022-07-06 14:27] LABS: Basophils % (A) 0 %; Eosinophils # (A) 0.1 k/uL (0-0.7); Eosinophils % (A) 2 %; HCT 32.1 % (39.0-53.0); HGB 10.2 gm/dL (13.0-17.5); Hypochromasia Slight; Lymphocytes # (A) 0.3 k/uL (1.0-4.8); Lymphocytes % (A) 3 %; MCH 30.9 pg (25.0-35.0); MCHC 31.8 g/dL (31.0-37.0); MCV 97.2 fL (80.0-100.0); Mean Platelet Volume 7.9; Monocytes # (A) 0.3 k/uL (0-1.0); Monocytes % (A) 4 %; Neutrophils # (A) 6.8 k/uL (1.3-7.7); Neutrophils % (A) 89 %; Platelet Count 211 k/uL (150-450); RBC 3.31 m/uL (4.30-5.90); RDW 15.4 % (11.5-15.5); WBC 7.7 k/uL (3.8-10.6)
--- NOTE | 2022-07-06 14:40 | XR ---
EXAMINATION TYPE: XR chest 2V DATE OF EXAM: 07/06/2022 COMPARISON: Chest x-ray June 20, 2022 and older studies. HISTORY: Difficulty in breathing. History of lung cancer. TECHNIQUE: Frontal and lateral views of the chest are obtained. FINDINGS: There is small to now borderline moderate size left pleural effusion on current study incr eased in size from most recent x-ray. Right lung remains clear. Background chronic emphysematous jessica nge redemonstrated. Nodular opacity lateral left midlung redemonstrated favoring scarring. The cardia c silhouette size is stable and within normal limits with atherosclerotic change aortic knob. The o sseous structures are demineralized. IMPRESSION: Small to moderate size left pleural effusion increased in size from most recent x-ray.
[2022-07-06 14:45] LABS: Albumin 3.1 g/dL (3.5-5.0); Calcium 8.8 mg/dL (8.4-10.2); Magnesium 1.1 mg/dL (1.6-2.3); Potassium 4.7 mmol/L (3.5-5.1); Total Bilirubin 0.4 mg/dL (0.2-1.3)
[2022-07-06] MEDS ORDERED: AZITHROMYCIN 500 MG in SODIUM CHLORIDE 0.9% 250 ML IVPB STA (14:45)
[2022-07-06] MEDS ORDERED: PNEUMONIA PROTOCOL UTILIZED 1 EACH MISC PO PRN (14:45)
[2022-07-06] MEDS ORDERED: NALOXONE 0.4 MG/ML 1 ML VIAL IVP PRN (14:53)
[2022-07-06] MEDS ORDERED: cefTRIAXone IN SWFI 1,000 MG/10 ML SYRINGE IVP STA (14:58)
[2022-07-06 15:16] LABS: INR 1.3 (<1.2); Partial Thromboplastin Time 28.8 sec (22.0-30.0); Prothrombin Time 13.5 sec (9.0-12.0)
[2022-07-06] MEDS: IPRATROPIUM-ALBUTEROL 3 ML NEB INHALATION SCH ×2 (16:30→20:58)
[2022-07-06] MEDS: MAGNESIUM SULFATE-D5W PMX 1 GM in DEXTROSE/WATER 1 100ML.BAG IVPB SCH ×4 (16:33→21:25)
[2022-07-06] MEDS: methylPREDNISolone SOD SUCCI 125 MG/2 ML VIAL IV SCH (19:38)
[2022-07-06 20:57] LABS: Glucose,Whole Blood 471 mg/dL (70-110)
[2022-07-06] MEDS ORDERED: INSULIN ASPART (NovoLOG) 100 UNIT/ML VIAL SQ ONE (21:57)
[2022-07-06] MEDS ORDERED: INSULIN DETEMIR (LEVEMIR) 100 UNIT/ML SYR SQ SCH (22:00)
[2022-07-06] MEDS: levETIRAcetam 500 MG TAB PO SCH (22:48)
[2022-07-06] MEDS: PANTOPRAZOLE 40 MG TABLET PO SCH (22:48)
[2022-07-06] MEDS: METOPROLOL TARTRATE 25 MG TAB PO SCH (22:48)
[2022-07-07] MEDS: methylPREDNISolone SOD SUCCI 125 MG/2 ML VIAL IV SCH ×2 (00:43→06:02)
--- NOTE | 2022-07-07 03:00 | HP ---
HISTORY AND PHYSICAL CHIEF COMPLAINT: Shortness of breath. HISTORY OF PRESENT ILLNESS: This 76-year-old gentleman with a past medical history of multiple medical issues including COPD, history of diabetes mellitus, was complaining of increased shortness of breath. The patient had COPD exacerbation. Evaluation of chest showed some pleural effusion. There is no history of any fever, rigors, or chills at this time. On admission, temperature was found to be 99.3. PAST MEDICAL HISTORY: Reviewed, include COPD, diabetes mellitus type 2. HOME MEDICATIONS: Home medications reviewed include Flexeril, doses and rest of medications reviewed. PHYSICAL EXAMINATION: VITAL SIGNS: Pulse is 106, blood pressure 120/88, respirations 28. HEENT: Conjunctivae normal. NECK: No jugular venous distention. CARDIOVASCULAR: S1, S2 muffled. RESPIRATIONS: Breathing efforts are markedly increased. Bilateral scattered rhonchi and crackles. ABDOMEN: Soft, nontender. LEGS: No edema. No swelling. LABS: Reviewed include hemoglobin 10.2. Other labs are noted. ASSESSMENT: 1. Chronic obstructive pulmonary disease exacerbation. 2. Diabetes mellitus, type 2. 3. DVT. 4. GERD. 5. Multiple medical issues. RECOMMENDATIONS: Continue current management and intensive bronchodilators IV steroids. Pulmonary consultation. Resume the home medications. Prognosis guarded. Further recommendations to follow. MMODL / IJN: [id number] /
[2022-07-07] MEDS: LEVOTHYROXINE 25 MCG TAB PO SCH (05:59)
[2022-07-07] MEDS ORDERED: DEXTROSE 50% SYRINGE 50 ML IVP PRN ×2 (06:37)
[2022-07-07 07:02] LABS: Glucose,Whole Blood 577 mg/dL (70-110)
[2022-07-07 07:02] LABS: Glucose,Whole Blood 578 mg/dL (70-110)
[2022-07-07] MEDS ORDERED: INSULIN ASPART (NovoLOG) 100 UNIT/ML VIAL SQ ONE ×2 (07:26→23:55)
[2022-07-07] MEDS ORDERED: INSULIN DETEMIR (LEVEMIR) 100 UNIT/ML SYR SQ ONE (07:30)
[2022-07-07] MEDS ORDERED: IPRATROPIUM-ALBUTEROL 3 ML NEB INHALATION SCH (08:00)
[2022-07-07] MEDS: FERROUS SULFATE 325 MG TAB PO SCH (08:09)
[2022-07-07] MEDS: INSULIN ASPART (NovoLOG) 100 UNIT/ML VIAL SQ SCH ×4 (08:09→17:10)
[2022-07-07] MEDS: levETIRAcetam 500 MG TAB PO SCH (08:09)
[2022-07-07] MEDS: allopurinoL 100 MG TAB PO SCH (08:09)
[2022-07-07] MEDS: METOPROLOL TARTRATE 25 MG TAB PO SCH (08:10)
[2022-07-07] MEDS: IPRATROPIUM-ALBUTEROL 3 ML NEB INHALATION SCH ×4 (08:11→19:17)
[2022-07-07] MEDS: RIVAROXABAN 15 MG TAB PO SCH (08:21)
[2022-07-07] MEDS ORDERED: AZITHROMYCIN 500 MG TAB PO SCH (09:00)
[2022-07-07 11:12] LABS: African American GFR (CKD) 23 (>60 ml/min/1.73 sqM); Anion Gap 14 mmol/L; Blood Urea Nitrogen 59 mg/dL (9-20); Calcium 8.8 mg/dL (8.4-10.2); Carbon Dioxide 21 mmol/L (22-30); Chloride 96 mmol/L (98-107); Non-African American GFR(CKD) 20 (>60 ml/min/1.73 sqM); Sodium 131 mmol/L (137-145)
[2022-07-07 11:25] LABS: Glucose 517 mg/dL (74-99)
[2022-07-07 11:40] LABS: Glucose,Whole Blood 506 mg/dL (70-110)
[2022-07-07 11:42] LABS: Glucose,Whole Blood 492 mg/dL (70-110)
[2022-07-07] MEDS ORDERED: methylPREDNISolone SOD SUCCI 40 MG/ML 1 ML VIAL IV SCH (12:00)
[2022-07-07] MEDS ORDERED: SODIUM CHLORIDE 0.65% NASAL SPRAY 44 ML BTL NASAL PRN (15:07)
--- NOTE | 2022-07-07 15:18 | P.CNPUL ---
History of Present Illness Consult date: 07/07/22 Reason for consult: pneumonia History of present illness: A 76-year-old male patient, coming into the hospital because of worsening shortness of breath. The patient is known to me. He was last seen in the hospital in March 2022 for acute COPD exacerbation and he was treated and he was discharged home. Subsequently, he had another admission for syncope. The patient is known to have an FEV1 of 47% of predicted. The patient is also known to have metastatic adenocarcinoma of the lung and the patient is sitting immunotherapy in the form of Keytruda. He has undergone a previous left upper lobe resection for non-small cell lung cancer and he also has undergone a wedge resection of the pulmonary nodule involving the right lung confirming metastatic disease with adenocarcinoma. The most recent PET/CT that was done in March 2022 showed no metabolic activity within the lung. He is known to have chronic stage III kidney disease, diabetes mellitus, hypertension and hyperlipidemia and a previous history of DVT of the left lower extremity maintained on Xarelto. He has chronic anemia. During this current admission, the patient was noted to have any infiltration of the left lung base and there is a suspicion for pneumonia and the patient is having increased cough and congestion. His white cell count is at 7.7 with a hemoglobin of 10.2. His creatinine is at 146 and a and a 50 and the sodium level of 136. Electrolytes are all within normal limits. ProBNP level is 509. Troponin is a 0.03. Blood sugar is elevated due to systemic steroid use. Review of Systems Constitutional: Denies chills, Denies fever Eyes: denies as per HPI, denies blurred vision, denies bulging eye, denies decreased vision, denies diplopia, denies discharge, denies dry eye, denies irritation, denies itching, denies pain, denies photophobia, denies loss of karthik pheral vision, denies loss of vision, denies tunnel vision/blind spots Ears: deny: decreased hearing, ear discharge, earache, tinnitus Ears, nose, mouth and throat: Reports as per HPI Breasts: absent: as per HPI, gynecomastia Cardiovascular: Reports decreased exercise tolerance, Reports dyspnea on e xertion and increased dyspnea and wheeze Respiratory: Reports dyspnea Gastrointestinal: Reports as per HPI Genitourinary: Reports as per HPI Musculoskeletal: Reports as per HPI Musculoskeletal: absent: ankle pain, ankle stiffness, ankle swelling Integumentary: Reports as per HPI Neurological: Reports as per HPI Psychiatric: Reports as per HPI Endocrine: Reports as per HPI Hematologic/Lymphatic: Reports as per HPI Allergic/Immunologic: Reports as per HPI Past Medical History Past Medical History: Cancer, COPD, CVA/TIA, Diabetes Mellitus, Deep Vein Thrombosis (DVT), GERD/Reflux, Hyperlipidemia, Hypertension, Renal Disease, Seizure Disorder, Thyroid Disorder Additional Past Medical History / Comment(s): 07/2018 L lung cancer with left upper lobectomy., R lower lobe cancer in August 2019 and had wedge resection and immunotherapy., bronchitis, TIA and seizure after bronchoscopy in 2017, DVT L leg, IDDM type II, chronic cervical/back pain, BPH, stage III kidney disease, chronic constipation ., dysphagia with wt loss., states spot on spine L-3., states he thinks he has a sore on his INNER THIGH ., hx of carotid stenosis with stent 06/03/2021. Last Myocardial Infarction Date:: 05/24/12 History of Any Multi-Drug Resistant Organisms: None Reported Past Surgical History: Back Surgery, Cholecystectomy, Heart Catheterization, Heart Catheterization With Stent, Hernia Repair, Tonsillectomy Additional Past Surgical History / Comment(s): 2018 Bronchoscopy with bx, 2017 L upper lobectomy at [facility], August 2019 R lower lung wedge resection, low back surg cat, umbilical hernia repair, bilateral cataract removals ., right transcarotid artery revasculazation with stent May 2021, COLONOSCOPY Past Anesthesia/Blood Transfusion Reactions: Previous Problems w/ Anesthesia Additional Past Anesthesia/Blood Transfusion Reaction / Comment(s): Seizure and mini stroke following lung biopsy Date of Last Stent Placement:: 06/03/2021-CAROTID STENT Past Psychological History: No Psychological Hx Reported Additional Psychological History / Comment(s): . Smoking Status: Former smoker Past Alcohol Use History: None Reported Additional Past Alcohol Use History / Comment(s): Pt started smoking in 1960 and quit in 1995. He was a 2ppd smoker. Past Drug Use History: None Reported Additional Drug Use History / Comment(s): . - Past Family History Mother Family Medical History: No Reported History Additional Family Medical History / Comment(s): Mother was healthy Father Family Medical History: Diabetes Mellitus, Deep Vein Thrombosis (DVT) Additional Family Medical History / Comment(s): Father of diabetes at the age of 83 yrs. Medications and Allergies Home Medications Medication Instructions Recorded Confirmed Type amLODIPine [Norvasc] 10 mg PO HS 07/30/19 07/06/22 History Metoprolol Tartrate 25 mg PO BID #60 tab 09/10/19 07/06/22 Rx Omeprazole 20 mg PO HS 07/06/20 07/06/22 History Rivaroxaban [Xarelto] 15 mg PO DAILY 01/12/21 07/06/22 History Solifenacin Succinate [Vesicare] 10 mg PO HS 01/12/21 07/06/22 History Furosemide [Lasix] 40 mg PO BID 06/03/21 07/06/22 History Ipratropium-Albuterol Nebulize 3 ml INHALATION RT-QID 10/14/21 07/06/22 History [Duoneb 0.5 mg-3 mg/3 ml Soln] Aspirin [Adult Low Dose Aspirin EC] 81 mg PO HS 02/27/22 07/06/22 History Insulin Aspart [NovoLOG Flexpen] See Protocol SQ AC-TID 02/27/22 07/06/22 History Levothyroxine Sodium [Synthroid] 25 mcg PO DAILY 06/12/22 07/06/22 History allopurinoL [Zyloprim] 100 mg PO DAILY 06/12/22 07/06/22 History Ferrous Sulfate [Feosol] 325 mg PO DAILY 07/06/22 07/06/22 History Insulin Degludec [Tresiba 12 units SQ HS 07/06/22 07/06/22 History Flextouch U-100 Pen] Simvastatin [Zocor] 20 mg PO HS 07/06/22 07/06/22 History levETIRAcetam [Keppra] 500 mg PO BID 07/06/22 07/06/22 History Allergies Allergy/AdvReac Type Severity Reaction Status Date / Time No Known Allergies Allergy Verified 07/06/22 14:55 Physical Exam Vitals: Vital Signs Temp Pulse Pulse Resp BP BP BP 07/07/22 14:00 97.5 F L 78 23 123/67 07/07/22 11:44 92 07/07/22 11:38 96 07/07/22 08:18 92 07/07/22 08:12 90 07/07/22 08:00 97.7 F 87 16 132/67 07/07/22 02:12 98.3 F 93 18 107/60 07/06/22 21:12 92 07/06/22 20:59 88 07/06/22 19:14 98.2 F 94 20 104/58 07/06/22 16:40 88 07/06/22 16:30 89 Pulse Ox 07/07/22 14:00 93 L 07/07/22 11:44 07/07/22 11:38 07/07/22 08:18 07/07/22 08:12 07/07/22 08:00 95 07/07/22 02:12 97 07/06/22 21:12 07/06/22 20:59 07/06/22 19:14 94 L 07/06/22 16:40 07/06/22 16:30 Intake and Output 07/07/22 07/07/22 07/07/22 06:59 14:59 22:59 Other: # Voids 3 Weight 76.6 kg GENERAL EXAM: Alert, active, comfortable in no apparent distress. The patient is currently on room air oxygen and he is not using oxygen at home. HEAD: Normocephalic. EYES: Normal reaction of pupils, equal size. NOSE: Clear with pink turbinates. THROAT: No erythema or exudates. NECK: No masses, no JVD. CHEST: No chest wall deformity. LUNGS: Equal air entry with faint bilateral end expiratory wheeze, diminished. CVS: S1 and S2 normal with no audible murmur, regular rhythm. ABDOMEN: No hepatosplenomegaly, normal bowel sounds, no guarding or rigidity. SPINE: No scoliosis or deformity SKIN: No rashes CENTRAL NERVOUS SYSTEM: No focal deficits, tone is normal in all 4 extremities. EXTREMITIES: There is no peripheral edema. No clubbing, no cyanosis. Peripheral pulses are intact. Results - Laboratory Findings CBC and BMP: 07/06/22 14:13 07/07/22 10:25 PT/INR, D-dimer PT 13.5 sec (9.0-12.0) H 07/06/22 14:13 INR 1.3 (<1.2) H 07/06/22 14:13 Abnormal lab findings: Abnormal Labs 07/06/22 07/06/22 07/06/22 14:13 14:13 14:13 RBC 3.31 L Hgb 10.2 L Hct 32.1 L Lymphocytes # 0.3 L PT 13.5 H INR 1.3 H Sodium 136 L Chloride Carbon Dioxide 21 L BUN 50 H Creatinine 2.46 H Glucose 206 H POC Glucose (mg/dL) Hemoglobin A1c Magnesium 1.1 L Total Protein 6.0 L Albumin 3.1 L 07/06/22 07/06/22 07/07/22 14:13 20:49 06:59 RBC Hgb Hct Lymphocytes # PT INR Sodium Chloride Carbon Dioxide BUN Creatinine Glucose POC Glucose (mg/dL) 471 H 578 H Hemoglobin A1c 7.3 H Magnesium Total Protein Albumin 07/07/22 07/07/22 07/07/22 07:01 10:25 11:38 RBC Hgb Hct Lymphocytes # PT INR Sodium 131 L Chloride 96 L Carbon Dioxide 21 L BUN 59 H Creatinine 2.97 H Glucose 517 H* POC Glucose (mg/dL) 577 H 506 H Hemoglobin A1c Magnesium Total Protein Albumin 07/07/22 11:40 RBC Hgb Hct Lymphocytes # PT INR Sodium Chloride Carbon Dioxide BUN Creatinine Glucose POC Glucose (mg/dL) 492 H Hemoglobin A1c Magnesium Total Protein Albumin - Diagnostic Findings Chest x-ray: image reviewed Assessment and Plan Plan: left lower lobe pneumonia suspected, as there is further still awaiting an opa cification of left lower lobe and the left hemidiaphragm Acute COPD exacerbation with secondary shortness of breath COPD with a baseline FEV1 of 47% of predicted History of metastatic adenocarcinoma of the lung, currently receiving immunotherapy in the form of Keytruda. History of left upper lobe resection for non-small cell lung cancer, history of wedge resection of a pulmonary nodule in the right lung confirming metastatic disease with adenocarcinoma. The most recent PET CT that was done in March 2022 showed no evidence of any metabolic activity or ongoing disease in terms of his lung cancer Previous TIA, recovered chronic stage III kidney disease suspect secondary to diabetic nephropathy, acute decompensation could be related to prerenal factors Diabetes mellitus Hypertension Hyperlipidemia History of DVT, left lower extremity, maintained on Xarelto Degenerative arthritis of the cervical spine Chronic anemia, anemia of chronic disease plan Discussed the case with the medical team the patient has had previous infections with E. coli and Serratiaplan based on that we'll start the patient IV Rocephin Resume same medications Monitor blood sugar and uses Levemir 40 units along with a sliding scale coverage for blood sugar control, insulin drip if needed Repeat chest x-ray within next 24-48 hours Check a pro-calcitonin Continue bronchodilators We'll continue to follow
--- NOTE | 2022-07-07 16:31 | P.PN ---
Subjective Progress Note Date: 07/07/22 This is a pleasant 76 year old male who presents with dyspnea and admitted for COPD exacerbation. Patient does have history of lung cancer in both right and left lung status post left upper lobectomy and also right lower wedge resection, post immunotherapy, and per most recent PET scan continues in remission. He has had previous hospitalization last month for syncope possible seizure activity and also for COPD exacerbation in March of this year. Patient recently underwent EGD with findings of gastritis. Patient does not wear home oxygen, he did require 2L on admission. Currently 93% on room air. He reports his shortness of breath has improved, he does have a faint end expiratory wheeze. He does have sputum production as well. Steroids discontinued. Chest xray on admission showing possible left lower lobe pneumonia and he continues on IV ceftriaxone emprically. Pulmonary is following and patient will have repeat chest xray in AM. Blood glucose monitoring in place and insulin has been adjusted. Review of Systems Constitutional: Denied any fatigue denied any fever. Cardio vascular: denied any chest pain, palpitations Gastrointestinal: denied any nausea, vomiting, diarrhea Pulmonary: Denied any shortness of breath, reports cough with sputum. Neurologic denied any new focal deficits All inpatient medications were reviewed and appropriate changes in these medications as dictated in the interval history and assessment and plan. PHYSICAL EXAMINATION: GENERAL: The patient is alert and oriented x3, not in any acute distress. Well developed, well nourished. HEENT: Pupils are round and equally reacting to light. EOMI. No scleral icterus. No conjunctival pallor. Normocephalic, atraumatic. No pharyngeal erythema. No thyromegaly. CARDIOVASCULAR: S1 and S2 present. No murmurs, rubs, or gallops. PULMONARY: Chest is clear to auscultation, no wheezing or crackles. ABDOMEN: Soft, nontender, nondistended, normoactive bowel sounds. No palpable organomegaly. MUSCULOSKELETAL: No joint swelling or deformity. EXTREMITIES: No cyanosis, clubbing, or pedal edema. NEUROLOGICAL: Gross neurological examination did not reveal any focal deficits. SKIN: No rashes. Assessment and plan Assessment Acute hypoxic respiratory failure secondary to COPD exacerbation Left lower lobe pneumonia Hyponatremia, hypovolemic secondary to poor oral intake Hypomagnesemia from poor oral intake Acute renal injury mostly prerenal Chronic kidney disease stage 4 Diabetes Mellitus type 2 with hyperglycemia, A1C 7.3 History DVT History of seizure disorder maintained on keppra Chronic anemia Gastroesophageal reflux disease History lung cancer post left upper lobectomy, right lower wedge resection post immunotherapy Coronary artery disease status post PCI in the past Carotid artery stenosis post stenting GI Prophylaxis: DVT Prophylaxis: Maintained on Xarelto Plan Gentle hydration, oral lasix on hold Continue oxygen support, wean as tolerated Continue on bronchodilators Continue on empiric antibiotic coverage Sputum culture ordered Blood glucose monitoring Repeat magnesium PT/OT consultation Resume all other home medications Repeat labs in AM Pulmonary consultation The impression and plan of care has been dictated by Carolyn Charles, Nurse Practitioner as directed. Dr. Damion MD I have performed a history and physical examination and medical decision making of this patient, discussed the same with the dictator, and agree with the dictators assessment and plan as written, documented as a scribe. Based on total visit time, I have performed more than 50% of this visit. Objective - Vital Signs Vital signs: Vital Signs Temp 97.5 F L 07/07/22 14:00 Pulse 94 07/07/22 15:40 Resp 23 07/07/22 14:00 BP 123/67 07/07/22 14:00 Pulse Ox 93 L 07/07/22 14:00 FiO2 Intake & Output 07/06/22 07/07/22 07/07/22 18:59 06:59 18:59 Weight 86.183 kg 76.6 kg Other: # Voids 3 - Labs CBC & Chem 7: 07/06/22 14:13 07/07/22 10:25 Labs: Abnormal Lab Results - Last 24 Hours (Table) 07/06/22 07/06/22 07/07/22 Range/Units 14:13 20:49 06:59 Sodium (137-145) mmol/L Chloride (98-107) mmol/L Carbon Dioxide (22-30) mmol/L BUN (9-20) mg/dL Creatinine (0.66-1.25) mg/dL Glucose (74-99) mg/dL POC Glucose (mg/dL) 471 H 578 H (70-110) mg/dL Hemoglobin A1c 7.3 H (0.0-6.0) % 07/07/22 07/07/22 07/07/22 Range/Units 07:01 10:25 11:38 Sodium 131 L (137-145) mmol/L Chloride 96 L (98-107) mmol/L Carbon Dioxide 21 L (22-30) mmol/L BUN 59 H (9-20) mg/dL Creatinine 2.97 H (0.66-1.25) mg/dL Glucose 517 H* (74-99) mg/dL POC Glucose (mg/dL) 577 H 506 H (70-110) mg/dL Hemoglobin A1c (0.0-6.0) % 07/07/22 Range/Units 11:40 Sodium (137-145) mmol/L Chloride (98-107) mmol/L Carbon Dioxide (22-30) mmol/L BUN (9-20) mg/dL Creatinine (0.66-1.25) mg/dL Glucose (74-99) mg/dL POC Glucose (mg/dL) 492 H (70-110) mg/dL Hemoglobin A1c (0.0-6.0) % Microbiology - Last 24 Hours (Table) 07/06/22 15:15 Sputum Culture - Preliminary Sputum Assessment and Plan Time with Patient: Less than 30
[2022-07-07] MEDS: SODIUM CHLORIDE 0.9% 1,000 ML IV SCH (17:07)
[2022-07-07 17:09] LABS: Glucose,Whole Blood 431 mg/dL (70-110)
[2022-07-07] MEDS ORDERED: INSULIN DETEMIR (LEVEMIR) 100 UNIT/ML SYR SQ SCH (21:00)
[2022-07-07 22:14] LABS: Glucose,Whole Blood 418 mg/dL (70-110)
[2022-07-08] MEDS: INSULIN ASPART (NovoLOG) 100 UNIT/ML VIAL SQ SCH ×8 (00:03→20:51)
[2022-07-08] MEDS: TROSPIUM CHLORIDE 20 MG TABLET PO SCH ×2 (00:04→21:05)
[2022-07-08] MEDS: PANTOPRAZOLE 40 MG TABLET PO SCH ×2 (00:04→21:05)
[2022-07-08] MEDS: METOPROLOL TARTRATE 25 MG TAB PO SCH ×3 (00:04→21:06)
[2022-07-08] MEDS: ATORVASTATIN 10 MG TAB PO SCH ×2 (00:04→21:06)
[2022-07-08] MEDS: ASPIRIN 81 MG PO SCH ×2 (00:04→21:05)
[2022-07-08] MEDS: levETIRAcetam 500 MG TAB PO SCH ×3 (00:22→21:06)
[2022-07-08] MEDS: LEVOTHYROXINE 25 MCG TAB PO SCH (06:04)
[2022-07-08 07:10] LABS: Glucose,Whole Blood 294 mg/dL (70-110)
--- NOTE | 2022-07-08 07:20 | XR ---
EXAMINATION TYPE: XR chest 2V DATE OF EXAM: 07/08/2022 6:44 AM COMPARISON: Chest radiographs from 07/06/2022 TECHNIQUE: XR chest 2V Frontal and lateral views of the chest. CLINICAL INDICATION:Male, 76 years old with history of dyspnea; FINDINGS: Lungs/Pleura: No pneumothorax. Small to moderate left pleural effusion. COPD changes with flattening of the diaphragms and hyperinflation. Similar nodularity in the left lateral lower. Pulmonary vascularity: Unremarkable. Heart/mediastinum: Cardiomediastinal silhouette is unremarkable. Atherosclerotic calcifications are seen in the aorta. Musculoskeletal: No acute osseous pathology. IMPRESSION: 1. Similar small to moderate size left pleural effusion. 2. COPD changes with similar nodularity in the left lateral lower lung.
[2022-07-08] MEDS: IPRATROPIUM-ALBUTEROL 3 ML NEB INHALATION SCH ×4 (08:12→19:34)
[2022-07-08] MEDS: allopurinoL 100 MG TAB PO SCH (09:13)
[2022-07-08] MEDS: RIVAROXABAN 15 MG TAB PO SCH (09:13)
[2022-07-08] MEDS: FERROUS SULFATE 325 MG TAB PO SCH (09:13)
[2022-07-08 11:53] LABS: African American GFR (CKD) 26.4 (60.0-200.0); Anion Gap 13.4 mmol/L (10.00-18.00); BUN/Creat Ratio 23.88 Ratio (12.00-20.00); Blood Urea Nitrogen 62.8 mg/dL (9.0-27.0); Calcium 8.7 mg/dL (8.7-10.3); Carbon Dioxide 19.8 mmol/L (20.0-27.5); Magnesium 1.8 mg/dL (1.5-2.4); Non-African American GFR(CKD) 22.8 (60.0-200.0); Potassium 4.7 mmol/L (3.5-5.5)
[2022-07-08 11:54] LABS: Glucose,Whole Blood 290 mg/dL (70-110)
[2022-07-08] MEDS: SODIUM CHLORIDE 0.9% 1,000 ML IV SCH (12:07)
--- NOTE | 2022-07-08 14:21 | P.PN ---
Subjective Progress Note Date: 07/08/22 07/08/2022, the patient is feeling somewhat better and the patient is currently on IV Rocephin for suspected left lower lobe pneumonia. No new complaints. No hemoptysis. No pleurisy. He was able to give us a sputum sample and results are still pending for now. The patient's creatinine is abnormal at 2.6 and a BUN of 62. Bicarb is at 19.8 and the sodium level is at 134. The patient remains on bronchodilator and the patient is also on long-term anticoagulation with Xarelto. He is on Levemir insulin for blood sugar control. No new complaints. Sitting up on a chair. Objective - Vital Signs Vital signs: Vital Signs Temp 97.4 F L 07/08/22 08:00 Pulse 90 07/08/22 12:10 Resp 19 07/08/22 02:16 BP 124/64 07/08/22 08:00 Pulse Ox 94 L 07/08/22 08:14 FiO2 Intake & Output 07/07/22 07/08/22 07/08/22 18:59 06:59 18:59 Intake Total 50 Balance 50 Weight 78 kg Intake: Intake, IV Titration 50 Amount cefTRIAXone 1 gm In 50 Sodium Chloride 0.9% 50 ml @ 100 mls/hr IVPB Q24HR [facility] Rx#:[id number] Other: # Voids 5 3 1 - Exam GENERAL EXAM: Alert, active, comfortable in no apparent distress. The patient is currently on room air oxygen and he is not using oxygen at home. HEAD: Normocephalic. EYES: Normal reaction of pupils, equal size. NOSE: Clear with pink turbinates. THROAT: No erythema or exudates. NECK: No masses, no JVD. CHEST: No chest wall deformity. LUNGS: Equal air entry with faint bilateral end expiratory wheeze, diminished. CVS: S1 and S2 normal with no audible murmur, regular rhythm. ABDOMEN: No hepatosplenomegaly, normal bowel sounds, no guarding or rigidity. SPINE: No scoliosis or deformity SKIN: No rashes CENTRAL NERVOUS SYSTEM: No focal deficits, tone is normal in all 4 extremities. EXTREMITIES: There is no peripheral edema. No clubbing, no cyanosis. Peripheral pulses are intact. - Labs CBC & Chem 7: 07/06/22 14:13 07/08/22 08:08 Labs: Abnormal Lab Results - Last 24 Hours (Table) 07/07/22 07/07/22 07/08/22 Range/Units 17:08 22:13 07:08 Sodium (135-145) mmol/L Carbon Dioxide (20.0-27.5) mmol/L BUN (9.0-27.0) mg/dL Creatinine (0.6-1.5) mg/dL Est GFR (CKD-EPI)AfAm (60.0-200.0) Est GFR (CKD-EPI)NonAf (60.0-200.0) BUN/Creatinine Ratio (12.00-20.00) Ratio Glucose (70-110) mg/dL POC Glucose (mg/dL) 431 H 418 H 294 H (70-110) mg/dL 07/08/22 07/08/22 Range/Units 08:08 11:48 Sodium 134 L (135-145) mmol/L Carbon Dioxide 19.8 L (20.0-27.5) mmol/L BUN 62.8 H (9.0-27.0) mg/dL Creatinine 2.6 H (0.6-1.5) mg/dL Est GFR (CKD-EPI)AfAm 26.4 L (60.0-200.0) Est GFR (CKD-EPI)NonAf 22.8 L (60.0-200.0) BUN/Creatinine Ratio 23.88 H (12.00-20.00) Ratio Glucose 297 H (70-110) mg/dL POC Glucose (mg/dL) 290 H (70-110) mg/dL Microbiology - Last 24 Hours (Table) 07/06/22 14:13 Blood Culture - Preliminary Blood No Growth after 24 hours 07/06/22 14:13 Blood Culture - Preliminary Blood No Growth after 24 hours Assessment and Plan Plan: left lower lobe pneumonia suspected, as there is further still awaiting an opacification of left lower lobe and the left hemidiaphragm, clinically improving Acute COPD exacerbation with secondary shortness of breath, improving COPD with a baseline FEV1 of 47% of predicted History of metastatic adenocarcinoma of the lung, currently receiving immunotherapy in the form of Keytruda. History of left upper lobe resection for non-small cell lung cancer, history of wedge resection of a pulmonary nodule in the right lung confirming metastatic disease with adenocarcinoma. The most recent PET CT that was done in March 2022 showed no evidence of any metabolic activity or ongoing disease in terms of his lung cancer Previous TIA, recovered chronic stage III kidney disease suspect secondary to diabetic nephropathy, acute decompensation could be related to prerenal factors Diabetes mellitus Hypertension Hyperlipidemia History of DVT, left lower extremity, maintained on Xarelto Degenerative arthritis of the cervical spine Chronic anemia, anemia of chronic disease plan Continue IV Rocephin Repeat chest x-ray in the morning the patient has had previous infections with E. coli and Serratia and based on that we'll start the patient IV Rocephin Resume same medications Monitor blood sugar and uses Levemir 40 units along with a sliding scale coverage for blood sugar control, insulin drip if needed Repeat chest x-ray within next 24-48 hours Check a pro-calcitonin levels are still pending Continue bronchodilators We'll continue to follow
--- NOTE | 2022-07-08 16:22 | P.PN ---
Subjective Progress Note Date: 07/08/22 This is a pleasant 76 year old male who presents with dyspnea and admitted for COPD exacerbation. Patient does have history of lung cancer in both right and left lung status post left upper lobectomy and also right lower wedge resection, post immunotherapy, and per most recent PET scan continues in remission. He has had previous hospitalization last month for syncope possible seizure activity and also for COPD exacerbation in March of this year. Patient recently underwent EGD with findings of gastritis. Patient does not wear home oxygen, he did require 2L on admission. Currently 93% on room air. He reports his shortness of breath has improved, he does have a faint end expiratory wheeze. He does have sputum production as well. Steroids discontinued. Chest xray on admission showing possible left lower lobe pneumonia and he continues on IV ceftriaxone emprically. Pulmonary is following and patient will have repeat chest xray in AM. Blood glucose monitoring in place and insulin has been adjusted. 07/08/2022 Patient is evaluated today sitting up in chair. No acute events overnight. He is off oxygen currently at time of my assessment. He denies shortness of breath at rest. He does report hoarseness in his throat. Denies sore throat, minimal cough. Was able to give sputum sample which is currently. On IV ceftriaxone empirically. Blood culture negative so far. AM chest xray today showing similar small to moderate size left pleural effusion, COPD changes with similar nodularity left lateral lower lung. He is seeing pulmonary services. Sodium 134 today, potassium 4.7, BUN 62.8, creatinine 2.6. Blood glucose elevated at 290 which is slowly coming down. Magnesium 1.8 today. Insulin has been increased today. He continues on gentle hydration 0.9 normal saline at 50 cc per hour, bronchodilators. Incentive spirometer ordered. Review of Systems Constitutional: Denied any fatigue denied any fever. Cardio vascular: denied any chest pain, palpitations Gastrointestinal: denied any nausea, vomiting, diarrhea. Reports some crusting around the head of his penis and states he is having some dribbling from his penis. Pulmonary: Denied any shortness of breath, reports cough with sputum. Neurologic denied any new focal deficits All inpatient medications were reviewed and appropriate changes in these medications as dictated in the interval history and assessment and plan. PHYSICAL EXAMINATION: GENERAL: The patient is alert and oriented x3, not in any acute distress. Well developed, well nourished. HEENT: Pupils are round and equally reacting to light. EOMI. No scleral icterus. No conjunctival pallor. Normocephalic, atraumatic. No pharyngeal erythema. No thyromegaly. CARDIOVASCULAR: S1 and S2 present. No murmurs, rubs, or gallops. PULMONARY: Lungs are diminished. He does have some expiratory wheezing increased from yesterday. ABDOMEN: Soft, nontender, nondistended, normoactive bowel sounds. No palpable organomegaly. MUSCULOSKELETAL: No joint swelling or deformity. EXTREMITIES: No cyanosis, clubbing, or pedal edema. NEUROLOGICAL: Gross neurological examination did not reveal any focal deficits. SKIN: No rashes. Assessment and plan Assessment Acute hypoxic respiratory failure secondary to COPD exacerbation, 2L nasal cannula as needed Left lower lobe pneumonia Hyponatremia, hypovolemic secondary to poor oral intake improving with gentle hydration. Hypomagnesemia from poor oral intake Acute renal injury mostly prerenal Chronic kidney disease stage 4 Diabetes Mellitus type 2 with hyperglycemia, A1C 7.3 History DVT History of seizure disorder maintained on keppra Chronic anemia Gastroesophageal reflux disease History lung cancer post left upper lobectomy, right lower wedge resection post immunotherapy Coronary artery disease status post PCI in the past Carotid artery stenosis post stenting GI Prophylaxis: DVT Prophylaxis: Maintained on Xarelto Plan Gentle hydration, oral lasix on hold Continue oxygen support, wean as tolerated Continue on bronchodilators Continue on empiric antibiotic coverage Sputum culture ordered Blood glucose monitoring, insulin has been increased Urinalysis ordered and also nystatin topical cream ordered PT/OT consultation Repeat labs in AM Pulmonary consultation The impression and plan of care has been dictated by Carolyn Charles, Nurse Practitioner as directed. Dr. Damion MD I have performed a history and physical examination and medical decision making of this patient, discussed the same with the dictator, and agree with the dictators assessment and plan as written, documented as a scribe. Based on total visit time, I have performed more than 50% of this visit. Objective - Vital Signs Vital signs: Vital Signs Temp 97.6 F 07/08/22 14:00 Pulse 90 07/08/22 15:26 Resp 19 07/08/22 02:16 BP 127/62 07/08/22 14:00 Pulse Ox 94 L 07/08/22 14:00 FiO2 Intake & Output 07/07/22 07/08/22 07/08/22 18:59 06:59 18:59 Intake Total 50 450 Balance 50 450 Weight 78 kg Intake: Intake, IV Titration 50 450 Amount Sodium Chloride 0.9% 1, 400 000 ml @ 50 mls/hr IV . Q20H NI Rx#:[id number] cefTRIAXone 1 gm In 50 50 Sodium Chloride 0.9% 50 ml @ 100 mls/hr IVPB Q24HR NI Rx#:[id number] Other: # Voids 5 3 1 - Labs CBC & Chem 7: 07/06/22 14:13 07/08/22 08:08 Labs: Abnormal Lab Results - Last 24 Hours (Table) 07/07/22 07/07/22 07/08/22 Range/Units 17:08 22:13 07:08 Sodium (135-145) mmol/L Carbon Dioxide (20.0-27.5) mmol/L BUN (9.0-27.0) mg/dL Creatinine (0.6-1.5) mg/dL Est GFR (CKD-EPI)AfAm (60.0-200.0) Est GFR (CKD-EPI)NonAf (60.0-200.0) BUN/Creatinine Ratio (12.00-20.00) Ratio Glucose (70-110) mg/dL POC Glucose (mg/dL) 431 H 418 H 294 H (70-110) mg/dL 07/08/22 07/08/22 Range/Units 08:08 11:48 Sodium 134 L (135-145) mmol/L Carbon Dioxide 19.8 L (20.0-27.5) mmol/L BUN 62.8 H (9.0-27.0) mg/dL Creatinine 2.6 H (0.6-1.5) mg/dL Est GFR (CKD-EPI)AfAm 26.4 L (60.0-200.0) Est GFR (CKD-EPI)NonAf 22.8 L (60.0-200.0) BUN/Creatinine Ratio 23.88 H (12.00-20.00) Ratio Glucose 297 H (70-110) mg/dL POC Glucose (mg/dL) 290 H (70-110) mg/dL Microbiology - Last 24 Hours (Table) 07/06/22 14:13 Blood Culture - Preliminary Blood No Growth after 24 hours 07/06/22 14:13 Blood Culture - Preliminary Blood No Growth after 24 hours Assessment and Plan Time with Patient: Less than 30
[2022-07-08 16:26] LABS: Glucose,Whole Blood 203 mg/dL (70-110)
[2022-07-08] MEDS: MAGNESIUM OXIDE 400 MG TAB PO SCH (17:34)
[2022-07-08 17:45] LABS: Appearance,Urine Clear (Clear); Bacteria,Urine Rare /hpf; Bilirubin,Urine Negative (Negative); Blood,Urine Negative (Negative); Color,Urine Light Yellow; Glucose,Urine (UA) Trace (Negative); Ketones,Urine Negative (Negative); Leukocyte Esterase,Urine Negative (Negative); Mucus,Urine Rare /hpf; Nitrite,Urine Negative (Negative); Protein,Urine 1+ (Negative); RBC,Urine 1 /hpf (0-5); Specific Gravity,Urine 1.015 (1.001-1.035); Urobilinogen,Urine <2.0 mg/dL (<2.0); WBC,Urine 1 /hpf (0-5)
[2022-07-08 20:31] LABS: Glucose,Whole Blood 125 mg/dL (70-110)
[2022-07-08] MEDS: INSULIN DETEMIR (LEVEMIR) 100 UNIT/ML SYR SQ SCH (21:06)
[2022-07-08] MEDS: NYSTATIN 100,000UNIT/GM CREAM 30 GM TUBE TOPICAL SCH (21:10)
[2022-07-09] MEDS: LEVOTHYROXINE 25 MCG TAB PO SCH (05:11)
[2022-07-09 07:00] LABS: Glucose,Whole Blood 205 mg/dL (70-110)
--- NOTE | 2022-07-09 07:31 | XR ---
EXAMINATION TYPE: XR chest 2V DATE OF EXAM: 07/09/2022 6:33 AM COMPARISON: Chest radiographs from 07/08/2022. TECHNIQUE: XR chest 2V Frontal and lateral views of the chest. CLINICAL INDICATION:Male, 76 years old with history of Pneumonia; FINDINGS: Lungs/Pleura: No pneumothorax. Small to moderate left pleural effusion. COPD changes with flattening of the diaphragms and hyperinflation. Similar nodularity in the left lateral lower lung. Pulmonary vascularity: Unremarkable. Heart/mediastinum: Cardiomediastinal silhouette is unremarkable. Atherosclerotic calcifications are s een in the aorta. Musculoskeletal: No acute osseous pathology. IMPRESSION: 1. Similar small to moderate size left pleural effusion. 2. COPD changes with similar nodularity in the left lateral lower lung.
[2022-07-09] MEDS: IPRATROPIUM-ALBUTEROL 3 ML NEB INHALATION SCH ×4 (09:06→20:15)
[2022-07-09] MEDS: INSULIN ASPART (NovoLOG) 100 UNIT/ML VIAL SQ SCH ×7 (10:23→22:02)
[2022-07-09] MEDS: SODIUM CHLORIDE 0.9% 1,000 ML IV SCH (10:23)
[2022-07-09] MEDS: allopurinoL 100 MG TAB PO SCH (10:24)
[2022-07-09] MEDS: FERROUS SULFATE 325 MG TAB PO SCH (10:25)
[2022-07-09] MEDS: RIVAROXABAN 15 MG TAB PO SCH (10:25)
[2022-07-09] MEDS: METOPROLOL TARTRATE 25 MG TAB PO SCH ×2 (10:25→22:02)
[2022-07-09] MEDS: NYSTATIN 100,000UNIT/GM CREAM 30 GM TUBE TOPICAL SCH ×2 (10:25→22:02)
[2022-07-09] MEDS: MAGNESIUM OXIDE 400 MG TAB PO SCH ×2 (10:25→22:02)
[2022-07-09] MEDS: levETIRAcetam 500 MG TAB PO SCH ×2 (10:25→22:02)
[2022-07-09 10:39] LABS: Basophils # (A) 0 X 10*3/uL (0.00-0.10); Basophils % (A) 0 %; Eosinophils # (A) 0 X 10*3/uL (0.04-0.35); Eosinophils % (A) 0 %; HCT 25.7 % (39.6-50.0); HGB 8.1 g/dL (13.0-17.0); Immature Grans, Automated 0.7 %; Lymphocytes # (A) 0.29 X 10*3/uL (0.90-5.00); Lymphocytes % (A) 2.2 %; MCH 29.8 pg (27.0-32.0); MCHC 31.5 g/dL (32.0-37.0); MCV 94.5 fL (80.0-97.0); Mean Platelet Volume 10.6 fL (9.5-12.2); Monocytes # (A) 0.42 X 10*3/uL (0.20-1.00); Monocytes % (A) 3.2 %; NRBC Per 100 WBC 0 /100 WBCS (0.0-0.0); Neutrophils # (A) 12.13 X 10*3/uL (1.80-7.70); Neutrophils % (A) 93.9 %; Platelet Count 184 X 10*3/uL (140-440); RBC 2.72 X 10*6/uL (4.40-5.60); RDW 14.7 % (11.5-14.5); WBC 12.93 X 10*3/uL (4.50-10.00)
[2022-07-09] MEDS ORDERED: FUROSEMIDE 10 MG/ML 4 ML VIAL IV STA (10:51)
[2022-07-09] MEDS: methylPREDNISolone SOD SUCCI 40 MG/ML 1 ML VIAL IV SCH ×2 (11:10→16:32)
[2022-07-09 11:11] LABS: Glucose,Whole Blood 234 mg/dL (70-110)
[2022-07-09] MEDS: bisacodyL 5 MG TABLET.DR PO PRN (12:32)
[2022-07-09 13:10] LABS: African American GFR (CKD) 29.5 (60.0-200.0); Anion Gap 13.8 mmol/L (10.00-18.00); BUN/Creat Ratio 26.71 Ratio (12.00-20.00); Blood Urea Nitrogen 64.1 mg/dL (9.0-27.0); Calcium 8.5 mg/dL (8.7-10.3); Carbon Dioxide 18.2 mmol/L (20.0-27.5); Magnesium 1.8 mg/dL (1.5-2.4); Non-African American GFR(CKD) 25.4 (60.0-200.0); Potassium 4.5 mmol/L (3.5-5.5)
--- NOTE | 2022-07-09 13:33 | P.PN ---
Subjective Progress Note Date: 07/09/22 07/09/2022, the patient continues to be bronchospastic and wheezy. A repeat chest x-ray was done and showed a small left-sided pleural effusion. The patient remains on IV Rocephin. He remains on bronchodilators. Altered mentation. No chest pain. He was coughing all night and this kept him up. Meanwhile, the blood work shows a white cell count of 12.9 with hemoglobin of 8 and a BUN of 64 with a creatinine of 2.4 and the sodium level of 137. Potassium level is at 4.5. No fever or chills. The cultures are negative thus far. Objective - Vital Signs Vital signs: Vital Signs Temp 98.1 F 07/09/22 08:00 Pulse 90 07/09/22 12:05 Resp 17 07/09/22 02:00 BP 137/69 07/09/22 08:00 Pulse Ox 98 07/09/22 08:00 FiO2 Intake & Output 07/08/22 07/09/22 07/09/22 18:59 06:59 18:59 Intake Total 450 Output Total 300 Balance 150 Weight 80 kg Intake: Intake, IV Titration 450 Amount Sodium Chloride 0.9% 1, 400 000 ml @ 50 mls/hr IV . Q20H NI Rx#:[id number] cefTRIAXone 1 gm In 50 Sodium Chloride 0.9% 50 ml @ 100 mls/hr IVPB Q24HR NI Rx#:[id number] Output: Urine 300 Other: # Voids 1 3 1 # Bowel Movements 1 - Exam GENERAL EXAM: Alert, active, comfortable in no apparent distress. The patient is currently on room air oxygen and he is not using oxygen at home. HEAD: Normocephalic. EYES: Normal reaction of pupils, equal size. NOSE: Clear with pink turbinates. THROAT: No erythema or exudates. NECK: No masses, no JVD. CHEST: No chest wall deformity. LUNGS: Equal air entry with faint bilateral end expiratory wheeze, diminished. CVS: S1 and S2 normal with no audible murmur, regular rhythm. ABDOMEN: No hepatosplenomegaly, normal bowel sounds, no guarding or rigidity. SPINE: No scoliosis or deformity SKIN: No rashes CENTRAL NERVOUS SYSTEM: No focal deficits, tone is normal in all 4 extremities. EXTREMITIES: There is no peripheral edema. No clubbing, no cyanosis. Peripheral pulses are intact. - Labs CBC & Chem 7: 07/09/22 04:01 07/09/22 04:01 Labs: Abnormal Lab Results - Last 24 Hours (Table) 07/08/22 07/08/22 07/08/22 Range/Units 16:24 17:34 20:29 WBC (4.50-10.00) X 10*3/uL RBC (4.40-5.60) X 10*6/uL Hgb (13.0-17.0) g/dL Hct (39.6-50.0) % MCHC (32.0-37.0) g/dL RDW (11.5-14.5) % Immature Gran # (0.00-0.04) X 10*3/uL Neutrophils # (1.80-7.70) X 10*3/uL Lymphocytes # (0.90-5.00) X 10*3/uL Eosinophils # (0.04-0.35) X 10*3/uL Carbon Dioxide (20.0-27.5) mmol/L BUN (9.0-27.0) mg/dL Creatinine (0.6-1.5) mg/dL Est GFR (CKD-EPI)AfAm (60.0-200.0) Est GFR (CKD-EPI)NonAf (60.0-200.0) BUN/Creatinine Ratio (12.00-20.00) Ratio Glucose (70-110) mg/dL POC Glucose (mg/dL) 203 H 125 H (70-110) mg/dL Calcium (8.7-10.3) mg/dL Urine Protein 1+ H (Negative) Urine Glucose (UA) Trace H (Negative) Urine Bacteria Rare H (None) /hpf Urine Mucus Rare H (None) /hpf 07/09/22 07/09/22 07/09/22 Range/Units 04:01 04:01 06:59 WBC 12.93 H (4.50-10.00) X 10*3/uL RBC 2.72 L (4.40-5.60) X 10*6/uL Hgb 8.1 L (13.0-17.0) g/dL Hct 25.7 L (39.6-50.0) % MCHC 31.5 L (32.0-37.0) g/dL RDW 14.7 H (11.5-14.5) % Immature Gran # 0.09 H (0.00-0.04) X 10*3/uL Neutrophils # 12.13 H (1.80-7.70) X 10*3/uL Lymphocytes # 0.29 L (0.90-5.00) X 10*3/uL Eosinophils # 0 L (0.04-0.35) X 10*3/uL Carbon Dioxide 18.2 L (20.0-27.5) mmol/L BUN 64.1 H (9.0-27.0) mg/dL Creatinine 2.4 H (0.6-1.5) mg/dL Est GFR (CKD-EPI)AfAm 29.5 L (60.0-200.0) Est GFR (CKD-EPI)NonAf 25.4 L (60.0-200.0) BUN/Creatinine Ratio 26.71 H (12.00-20.00) Ratio Glucose 220 H (70-110) mg/dL POC Glucose (mg/dL) 205 H (70-110) mg/dL Calcium 8.5 L (8.7-10.3) mg/dL Urine Protein (Negative) Urine Glucose (UA) (Negative) Urine Bacteria (None) /hpf Urine Mucus (None) /hpf 07/09/22 Range/Units 11:10 WBC (4.50-10.00) X 10*3/uL RBC (4.40-5.60) X 10*6/uL Hgb (13.0-17.0) g/dL Hct (39.6-50.0) % MCHC (32.0-37.0) g/dL RDW (11.5-14.5) % Immature Gran # (0.00-0.04) X 10*3/uL Neutrophils # (1.80-7.70) X 10*3/uL Lymphocytes # (0.90-5.00) X 10*3/uL Eosinophils # (0.04-0.35) X 10*3/uL Carbon Dioxide (20.0-27.5) mmol/L BUN (9.0-27.0) mg/dL Creatinine (0.6-1.5) mg/dL Est GFR (CKD-EPI)AfAm (60.0-200.0) Est GFR (CKD-EPI)NonAf (60.0-200.0) BUN/Creatinine Ratio (12.00-20.00) Ratio Glucose (70-110) mg/dL POC Glucose (mg/dL) 234 H (70-110) mg/dL Calcium (8.7-10.3) mg/dL Urine Protein (Negative) Urine Glucose (UA) (Negative) Urine Bacteria (None) /hpf Urine Mucus (None) /hpf Microbiology - Last 24 Hours (Table) 07/06/22 15:15 Gram Stain - Final Sputum Sputum Culture - Final 07/06/22 14:13 Blood Culture - Preliminary Blood No Growth after 48 hours 07/06/22 14:13 Blood Culture - Preliminary Blood No Growth after 48 hours Assessment and Plan Plan: left lower lobe pneumonia suspected, as there is further still awaiting an opacification of left lower lobe and the left hemidiaphragm, clinically improving Acute COPD exacerbation with secondary shortness of breath, still active COPD with a baseline FEV1 of 47% of predicted History of metastatic adenocarcinoma of the lung, currently receiving immunotherapy in the form of Keytruda. History of left upper lobe resection for non-small cell lung cancer, history of wedge resection of a pulmonary nodule in the right lung confirming metastatic disease with adenocarcinoma. The most recent PET CT that was done in March 2022 showed no evidence of any metabolic activity or ongoing disease in terms of his lung cancer Previous TIA, recovered chronic stage III kidney disease suspect secondary to diabetic nephropathy, acute decompensation could be related to prerenal factors Diabetes mellitus Hypertension Hyperlipidemia History of DVT, left lower extremity, maintained on Xarelto Degenerative arthritis of the cervical spine Chronic anemia, anemia of chronic disease plan Continue IV Rocephin With the patient IV Solu-Medrol Monitor the blood sugar Repeat chest x-ray in the morning showed a small left-sided pleural effusion Continue bronchodilators Given dose of Lasix 40 mg IV Monitor blood sugar and uses Levemir 40 units along with a sliding scale coverage for blood sugar control, insulin drip if needed Continue bronchodilators We'll continue to follow
[2022-07-09] MEDS ORDERED: FLUCONAZOLE 150 MG TAB PO STA (14:01)
--- NOTE | 2022-07-09 14:02 | P.PN ---
Subjective Progress Note Date: 07/09/22 This is a pleasant 76 year old male who presents with dyspnea and admitted for COPD exacerbation. Patient does have history of lung cancer in both right and left lung status post left upper lobectomy and also right lower wedge resection, post immunotherapy, and per most recent PET scan continues in remission. He has had previous hospitalization last month for syncope possible seizure activity and also for COPD exacerbation in March of this year. Patient recently underwent EGD with findings of gastritis. Patient does not wear home oxygen, he did require 2L on admission. Currently 93% on room air. He reports his shortness of breath has improved, he does have a faint end expiratory wheeze. He does have sputum production as well. Steroids discontinued. Chest xray on admission showing possible left lower lobe pneumonia and he continues on IV ceftriaxone emprically. Pulmonary is following and patient will have repeat chest xray in AM. Blood glucose monitoring in place and insulin has been adjusted. 07/08/2022 Patient is evaluated today sitting up in chair. No acute events overnight. He is off oxygen currently at time of my assessment. He denies shortness of breath at rest. He does report hoarseness in his throat. Denies sore throat, minimal cough. Was able to give sputum sample which is currently. On IV ceftriaxone empirically. Blood culture negative so far. AM chest xray today showing similar small to moderate size left pleural effusion, COPD changes with similar nodularity left lateral lower lung. He is seeing pulmonary services. Sodium 134 today, potassium 4.7, BUN 62.8, creatinine 2.6. Blood glucose elevated at 290 which is slowly coming down. Magnesium 1.8 today. Insulin has been increased today. He continues on gentle hydration 0.9 normal saline at 50 cc per hour, bronchodilators. Incentive spirometer ordered. 07/09/2022 Repeat chest xray completed this morning showing similar changes to moderate size left pleural effusion, with COPD changes. Review of xray he does have improvement of pleural effusion to left lower lobe. He continues on bronchodilators, empiric antibiotic coverage with IV ceftriaxone. He is also receiving gentle hydration with 0.9 ns at 50 mls per hour which will be stopped today, sodium today is 137. He was given a dose of IV lasix today. Urinalysis is negative for infection he does have 1+ protein and rare bacteria, rare glucose. Continues to have have white colored penile discharge will culture. Also has some erythema and yeast appearance to his groin. Blood cultures negative so far, sputum culture is pending. Oxygen saturation has improved 96 to 98% on 2L nasal cannula, he remains afebrile. Blood pressure stable at 125/63, heart rate 88. Pulmonary is following. He is pending PT/OT evaluation. Review of Systems Constitutional: Denied any fatigue denied any fever. Cardio vascular: denied any chest pain, palpitations Gastrointestinal: denied any nausea, vomiting, diarrhea. Pulmonary: Reports shortness of breath, reports cough with sputum. Neurologic denied any new focal deficits All inpatient medications were reviewed and appropriate changes in these medications as dictated in the interval history and assessment and plan. PHYSICAL EXAMINATION: GENERAL: The patient is alert and oriented x3, not in any acute distress. Well developed, well nourished. HEENT: Pupils are round and equally reacting to light. EOMI. No scleral icterus. No conjunctival pallor. Normocephalic, atraumatic. No pharyngeal erythema. No thyromegaly. CARDIOVASCULAR: S1 and S2 present. No murmurs, rubs, or gallops. PULMONARY: Patient has scattered rales throughout ABDOMEN: Soft, nontender, nondistended, normoactive bowel sounds. No palpable organomegaly. MUSCULOSKELETAL: No joint swelling or deformity. EXTREMITIES: No cyanosis, clubbing, or pedal edema. NEUROLOGICAL: Gross neurological examination did not reveal any focal deficits. SKIN: No rashes. Left groin has some erythema and moist. Assessment and plan Assessment Acute hypoxic respiratory failure secondary to COPD exacerbation, 2L nasal cannula as needed Left lower lobe pneumonia Hyponatremia, hypovolemic has improved with gentle hydration Hypomagnesemia from poor oral intake Acute renal injury mostly prerenal improving Chronic kidney disease stage 4 Diabetes Mellitus type 2 with hyperglycemia, A1C 7.3 History DVT History of seizure disorder maintained on keppra Chronic anemia Gastroesophageal reflux disease History lung cancer post left upper lobectomy, right lower wedge resection post immunotherapy Coronary artery disease status post PCI in the past Carotid artery stenosis post stenting GI Prophylaxis: DVT Prophylaxis: Maintained on Xarelto Plan Given a dose of IV lasix today IV fluids discontinud Continue oxygen support, wean as tolerated Continue on bronchodilators Continue on empiric antibiotic coverage Sputum culture ordered Blood glucose has improved Culture genital discharge PT/OT consultation Repeat labs in AM Pulmonary consultation The impression and plan of care has been dictated by Carolyn Charles, Nurse Practitioner as directed. Dr. Damion MD I have performed a history and physical examination and medical decision making of this patient, discussed the same with the dictator, and agree with the dictators assessment and plan as written, documented as a scribe. Based on total visit time, I have performed more than 50% of this visit. Objective - Vital Signs Vital signs: Vital Signs Temp 97.8 F 07/09/22 02:00 Pulse 88 07/09/22 02:00 Resp 17 07/09/22 02:00 BP 124/63 07/09/22 02:00 Pulse Ox 96 07/09/22 02:00 FiO2 Intake & Output 07/08/22 07/09/22 07/09/22 18:59 06:59 18:59 Intake Total 450 Output Total 300 Balance 150 Intake: Intake, IV Titration 450 Amount Sodium Chloride 0.9% 1, 400 000 ml @ 50 mls/hr IV . Q20H NI Rx#:[id number] cefTRIAXone 1 gm In 50 Sodium Chloride 0.9% 50 ml @ 100 mls/hr IVPB Q24HR NI Rx#:[id number] Output: Urine 300 Other: # Voids 1 3 - Labs CBC & Chem 7: 07/09/22 04:01 07/09/22 04:01 Labs: Abnormal Lab Results - Last 24 Hours (Table) 07/08/22 07/08/22 07/08/22 Range/Units 08:08 11:48 16:24 Sodium 134 L (135-145) mmol/L Carbon Dioxide 19.8 L (20.0-27.5) mmol/L BUN 62.8 H (9.0-27.0) mg/dL Creatinine 2.6 H (0.6-1.5) mg/dL Est GFR (CKD-EPI)AfAm 26.4 L (60.0-200.0) Est GFR (CKD-EPI)NonAf 22.8 L (60.0-200.0) BUN/Creatinine Ratio 23.88 H (12.00-20.00) Ratio Glucose 297 H (70-110) mg/dL POC Glucose (mg/dL) 290 H 203 H (70-110) mg/dL Urine Protein (Negative) Urine Glucose (UA) (Negative) Urine Bacteria (None) /hpf Urine Mucus (None) /hpf 07/08/22 07/08/22 07/09/22 Range/Units 17:34 20:29 06:59 Sodium (135-145) mmol/L Carbon Dioxide (20.0-27.5) mmol/L BUN (9.0-27.0) mg/dL Creatinine (0.6-1.5) mg/dL Est GFR (CKD-EPI)AfAm (60.0-200.0) Est GFR (CKD-EPI)NonAf (60.0-200.0) BUN/Creatinine Ratio (12.00-20.00) Ratio Glucose (70-110) mg/dL POC Glucose (mg/dL) 125 H 205 H (70-110) mg/dL Urine Protein 1+ H (Negative) Urine Glucose (UA) Trace H (Negative) Urine Bacteria Rare H (None) /hpf Urine Mucus Rare H (None) /hpf Microbiology - Last 24 Hours (Table) 07/06/22 14:13 Blood Culture - Preliminary Blood No Growth after 48 hours 07/06/22 14:13 Blood Culture - Preliminary Blood No Growth after 48 hours Assessment and Plan Time with Patient: Less than 30
[2022-07-09 16:09] LABS: Glucose,Whole Blood 167 mg/dL (70-110)
[2022-07-09 20:18] LABS: Glucose,Whole Blood 265 mg/dL (70-110)
[2022-07-09] MEDS: ASPIRIN 81 MG PO SCH (22:01)
[2022-07-09] MEDS: PANTOPRAZOLE 40 MG TABLET PO SCH (22:01)
[2022-07-09] MEDS: TROSPIUM CHLORIDE 20 MG TABLET PO SCH (22:02)
[2022-07-09] MEDS: ATORVASTATIN 10 MG TAB PO SCH (22:02)
[2022-07-09] MEDS: INSULIN DETEMIR (LEVEMIR) 100 UNIT/ML SYR SQ SCH (22:56)
[2022-07-10] MEDS ORDERED: MORPHINE SULFATE 2 MG/ML SYRINGE IVP STA (02:54)
[2022-07-10] MEDS: ONDANSETRON 4 MG/2 ML VIAL IVP PRN ×2 (03:06→07:55)
[2022-07-10] MEDS: methylPREDNISolone SOD SUCCI 40 MG/ML 1 ML VIAL IV SCH ×3 (03:34→17:56)
--- NOTE | 2022-07-10 04:14 | CT ---
EXAMINATION TYPE: CT ChestAbdPelvis wo con DATE OF EXAM: 07/10/2022 COMPARISON: PET CT scan 03/10/2022 HISTORY: upper abd pain History of lung cancer. CT DLP: 735.2 mGycm Automated exposure control for dose reduction was used. Images obtained from the thoracic inlet to the floor the pelvis with no contrast. FINDINGS: There is left pleural effusion and left posterior pleural thickening. Heart size is normal. No perica rdial effusion. There is coronary artery dense calcification. No mediastinal adenopathy. There are no hilar masses. No pneumothorax. There are some scattered noncalcified nodules in the left lung that m easure up to 12 mm. There are nodules in the right lower lobe and the largest measures 1.4 cm. Liver and spleen are intact. Stomach is intact. There are clips from cholecystectomy. The bile ducts are not dilated. No evidence of pancreatic mass. There is fatty replacement of the pancreas. There is no adrenal mass. Kidneys have normal size. No hydronephrosis. The ureters are not dilated. N o retroperitoneal adenopathy. Abdominal aorta is atheromatous. Bladder distends smoothly. No inguinal hernia. No pelvic mass. No free fluid in the pelvis. There are sigmoid diverticula. No diverticuliti s. There is no mesenteric edema. No ascites or free air. No sign of a bowel obstruction. There is laminectomy defect in the lower lumbar spine. There is L3 compression deformity approximatel y 50% with patchy sclerosis. The sternum is intact. The bony pelvis is intact. Hip joints are intact. There is some spinal stenosis at L3-4 due to disc bulging and facet arthropathy. No evidence of rib fracture. Shoulder joints appear intact. Appendix not seen. No sign thickened appendix. IMPRESSION: There is left pleural effusion and multiple lower lobe noncalcified pulmonary nodules. There are also a few upper lobe small pulmonary nodules. This could relate to recurrent tumor and appears increased compared to old exam. Atherosclerotic vascular disease. No acute abnormality in the abdomen and pelvis. There is L3 compression fracture also present on old exam. Metastatic disease is possible.
[2022-07-10] MEDS: LEVOTHYROXINE 25 MCG TAB PO SCH (05:50)
[2022-07-10 06:52] LABS: Glucose,Whole Blood 286 mg/dL (70-110)
[2022-07-10] MEDS: METOPROLOL TARTRATE 25 MG TAB PO SCH ×2 (07:45→22:55)
[2022-07-10] MEDS: levETIRAcetam 500 MG TAB PO SCH ×2 (07:45→23:17)
[2022-07-10] MEDS: MAGNESIUM OXIDE 400 MG TAB PO SCH ×2 (07:45→22:55)
[2022-07-10] MEDS: FERROUS SULFATE 325 MG TAB PO SCH (07:45)
[2022-07-10] MEDS: allopurinoL 100 MG TAB PO SCH (07:45)
[2022-07-10] MEDS: RIVAROXABAN 15 MG TAB PO SCH (07:46)
[2022-07-10] MEDS: INSULIN ASPART (NovoLOG) 100 UNIT/ML VIAL SQ SCH ×7 (07:46→22:55)
[2022-07-10] MEDS: NYSTATIN 100,000UNIT/GM CREAM 30 GM TUBE TOPICAL SCH ×2 (07:47→22:55)
[2022-07-10] MEDS: IPRATROPIUM-ALBUTEROL 3 ML NEB INHALATION SCH ×4 (08:05→20:12)
[2022-07-10 09:17] LABS: Basophils # (A) 0.01 X 10*3/uL (0.00-0.10); Basophils % (A) 0.1 %; Eosinophils # (A) 0 X 10*3/uL (0.04-0.35); Eosinophils % (A) 0 %; HCT 26.4 % (39.6-50.0); HGB 8.3 g/dL (13.0-17.0); Immature Grans, Automated 0.7 %; Lymphocytes # (A) 0.17 X 10*3/uL (0.90-5.00); Lymphocytes % (A) 1.7 %; MCH 29.6 pg (27.0-32.0); MCHC 31.4 g/dL (32.0-37.0); MCV 94.3 fL (80.0-97.0); Mean Platelet Volume 10.5 fL (9.5-12.2); Monocytes # (A) 0.11 X 10*3/uL (0.20-1.00); Monocytes % (A) 1.1 %; NRBC Per 100 WBC 0 /100 WBCS (0.0-0.0); Neutrophils # (A) 9.43 X 10*3/uL (1.80-7.70); Neutrophils % (A) 96.4 %; Platelet Count 197 X 10*3/uL (140-440); RDW 14.7 % (11.5-14.5); WBC 9.79 X 10*3/uL (4.50-10.00)
[2022-07-10 09:58] LABS: African American GFR (CKD) 32.9 (60.0-200.0); Anion Gap 11.2 mmol/L (10.00-18.00); BUN/Creat Ratio 28.17 Ratio (12.00-20.00); Blood Urea Nitrogen 61.7 mg/dL (9.0-27.0); Calcium 8.7 mg/dL (8.7-10.3); Carbon Dioxide 21.9 mmol/L (20.0-27.5); Magnesium 1.8 mg/dL (1.5-2.4); Non-African American GFR(CKD) 28.4 (60.0-200.0); Potassium 5.4 mmol/L (3.5-5.5)
--- NOTE | 2022-07-10 10:58 | P.PN ---
Subjective Progress Note Date: 07/10/22 07/10/2022, patient is being seen for a follow-up. Patient is admitted to the hospital because of COPD and a left lower lobe suspected pneumonia. He is on IV Rocephin. Solu-Medrol was also added yesterday. On today's evaluation, the patient tells the that he was having some chest pain and cough overnight and currently his pain is subsided and the patient was given a combination of bronchodilators and steroids. He remains on 40 mg IV Solu Medrol every 8 hours. He is also taken IV Rocephin and DuoNeb nebulized treatments around the clock. He is on long-term anticoagulation with Xarelto and his blood work shows no significant abnormalities. The white count was 11.7 with a hemoglobin 8.3, BUN is 61 with a creatinine of 2.2 and his sodium level is at 139 and a potassium level is at 5.4. UA was negative. Objective - Vital Signs Vital signs: Vital Signs Temp 97.6 F 07/10/22 07:15 Pulse 80 07/10/22 08:07 Resp 17 07/10/22 07:15 BP 138/61 07/10/22 07:15 Pulse Ox 98 07/10/22 07:15 FiO2 Intake & Output 07/09/22 07/10/22 07/10/22 18:59 06:59 18:59 Intake Total 450 Balance 450 Weight 98 kg Intake: Intake, IV Titration 450 Amount Sodium Chloride 0.9% 1, 400 000 ml @ 50 mls/hr IV . Q20H [facility] Rx#:[id number] cefTRIAXone 1 gm In 50 Sodium Chloride 0.9% 50 ml @ 100 mls/hr IVPB Q24HR [facility] Rx#:[id number] Other: # Voids 1 3 # Bowel Movements 1 - Exam GENERAL EXAM: Alert, active, comfortable in no apparent distress. The patient is currently on room air oxygen and he is not using oxygen at home. HEAD: Normocephalic. EYES: Normal reaction of pupils, equal size. NOSE: Clear with pink turbinates. THROAT: No erythema or exudates. NECK: No masses, no JVD. CHEST: No chest wall deformity. LUNGS: Equal air entry with faint bilateral end expiratory wheeze, diminished. CVS: S1 and S2 normal with no audible murmur, regular rhythm. ABDOMEN: No hepatosplenomegaly, normal bowel sounds, no guarding or rigidity. SPINE: No scoliosis or deformity SKIN: No rashes CENTRAL NERVOUS SYSTEM: No focal deficits, tone is normal in all 4 extremities. EXTREMITIES: There is no peripheral edema. No clubbing, no cyanosis. Peripheral pulses are intact. - Labs CBC & Chem 7: 07/10/22 04:23 07/10/22 04:23 Labs: Abnormal Lab Results - Last 24 Hours (Table) 07/09/22 07/09/22 07/09/22 Range/Units 04:01 11:10 16:08 RBC (4.40-5.60) X 10*6/uL Hgb (13.0-17.0) g/dL Hct (39.6-50.0) % MCHC (32.0-37.0) g/dL RDW (11.5-14.5) % Immature Gran # (0.00-0.04) X 10*3/uL Neutrophils # (1.80-7.70) X 10*3/uL Lymphocytes # (0.90-5.00) X 10*3/uL Monocytes # (0.20-1.00) X 10*3/uL Eosinophils # (0.04-0.35) X 10*3/uL Carbon Dioxide 18.2 L (20.0-27.5) mmol/L BUN 64.1 H (9.0-27.0) mg/dL Creatinine 2.4 H (0.6-1.5) mg/dL Est GFR (CKD-EPI)AfAm 29.5 L (60.0-200.0) Est GFR (CKD-EPI)NonAf 25.4 L (60.0-200.0) BUN/Creatinine Ratio 26.71 H (12.00-20.00) Ratio Glucose 220 H (70-110) mg/dL POC Glucose (mg/dL) 234 H 167 H (70-110) mg/dL Calcium 8.5 L (8.7-10.3) mg/dL 07/09/22 07/10/22 07/10/22 Range/Units 20:16 04:23 04:23 RBC 2.80 L (4.40-5.60) X 10*6/uL Hgb 8.3 L (13.0-17.0) g/dL Hct 26.4 L (39.6-50.0) % MCHC 31.4 L (32.0-37.0) g/dL RDW 14.7 H (11.5-14.5) % Immature Gran # 0.07 H (0.00-0.04) X 10*3/uL Neutrophils # 9.43 H (1.80-7.70) X 10*3/uL Lymphocytes # 0.17 L (0.90-5.00) X 10*3/uL Monocytes # 0.11 L (0.20-1.00) X 10*3/uL Eosinophils # 0 L (0.04-0.35) X 10*3/uL Carbon Dioxide (20.0-27.5) mmol/L BUN 61.7 H (9.0-27.0) mg/dL Creatinine 2.2 H (0.6-1.5) mg/dL Est GFR (CKD-EPI)AfAm 32.9 L (60.0-200.0) Est GFR (CKD-EPI)NonAf 28.4 L (60.0-200.0) BUN/Creatinine Ratio 28.17 H (12.00-20.00) Ratio Glucose 319 H (70-110) mg/dL POC Glucose (mg/dL) 265 H (70-110) mg/dL Calcium (8.7-10.3) mg/dL 07/10/22 Range/Units 06:49 RBC (4.40-5.60) X 10*6/uL Hgb (13.0-17.0) g/dL Hct (39.6-50.0) % MCHC (32.0-37.0) g/dL RDW (11.5-14.5) % Immature Gran # (0.00-0.04) X 10*3/uL Neutrophils # (1.80-7.70) X 10*3/uL Lymphocytes # (0.90-5.00) X 10*3/uL Monocytes # (0.20-1.00) X 10*3/uL Eosinophils # (0.04-0.35) X 10*3/uL Carbon Dioxide (20.0-27.5) mmol/L BUN (9.0-27.0) mg/dL Creatinine (0.6-1.5) mg/dL Est GFR (CKD-EPI)AfAm (60.0-200.0) Est GFR (CKD-EPI)NonAf (60.0-200.0) BUN/Creatinine Ratio (12.00-20.00) Ratio Glucose (70-110) mg/dL POC Glucose (mg/dL) 286 H (70-110) mg/dL Calcium (8.7-10.3) mg/dL Microbiology - Last 24 Hours (Table) 07/06/22 14:13 Blood Culture - Preliminary Blood No Growth after 72 hours 07/06/22 14:13 Blood Culture - Preliminary Blood No Growth after 72 hours 07/06/22 15:15 Gram Stain - Final Sputum Sputum Culture - Final Assessment and Plan Plan: left lower lobe pneumonia suspected, as there is further still awaiting an opacification of left lower lobe and the left hemidiaphragm, clinically improving Acute COPD exacerbation with secondary shortness of breath, still active COPD with a baseline FEV1 of 47% of predicted History of metastatic adenocarcinoma of the lung, currently receiving immunotherapy in the form of Keytruda. History of left upper lobe resection for non-small cell lung cancer, history of wedge resection of a pulmonary nodule in the right lung confirming metastatic disease with adenocarcinoma. The most recent PET CT that was done in March 2022 showed no evidence of any metabolic a ctivity or ongoing disease in terms of his lung cancer Previous TIA, recovered chronic stage III kidney disease suspect secondary to diabetic nephropathy, acute decompensation could be related to prerenal factors Diabetes mellitus Hypertension Hyperlipidemia History of DVT, left lower extremity, maintained on Xarelto Degenerative arthritis of the cervical spine Chronic anemia, anemia of chronic disease plan Continue IV Rocephin Continue IV Solu-Medrol Monitor the blood sugar Continue bronchodilators Monitor breathing Monitor blood sugar and uses Levemir 40 units along with a sliding scale coverage for blood sugar control, insulin drip if needed Continue bronchodilators We'll continue to follow
[2022-07-10 11:19] LABS: Glucose,Whole Blood 287 mg/dL (70-110)
--- NOTE | 2022-07-10 16:35 | P.PN ---
Subjective Progress Note Date: 07/10/22 This is a pleasant 76 year old male who presents with dyspnea and admitted for COPD exacerbation. Patient does have history of lung cancer in both right and left lung status post left upper lobectomy and also right lower wedge resection, post immunotherapy, and per most recent PET scan continues in remission. He has had previous hospitalization last month for syncope possible seizure activity and also for COPD exacerbation in March of this year. Patient recently underwent EGD with findings of gastritis. Patient does not wear home oxygen, he did require 2L on admission. Currently 93% on room air. He reports his shortness of breath has improved, he does have a faint end expiratory wheeze. He does have sputum production as well. Steroids discontinued. Chest xray on admission showing possible left lower lobe pneumonia and he continues on IV ceftriaxone emprically. Pulmonary is following and patient will have repeat chest xray in AM. Blood glucose monitoring in place and insulin has been adjusted. 07/08/2022 Patient is evaluated today sitting up in chair. No acute events overnight. He is off oxygen currently at time of my assessment. He denies shortness of breath at rest. He does report hoarseness in his throat. Denies sore throat, minimal cough. Was able to give sputum sample which is currently. On IV ceftriaxone empirically. Blood culture negative so far. AM chest xray today showing similar small to moderate size left pleural effusion, COPD changes with similar nodularity left lateral lower lung. He is seeing pulmonary services. Sodium 134 today, potassium 4.7, BUN 62.8, creatinine 2.6. Blood glucose elevated at 290 which is slowly coming down. Magnesium 1.8 today. Insulin has been increased today. He continues on gentle hydration 0.9 normal saline at 50 cc per hour, bronchodilators. Incentive spirometer ordered. 07/09/2022 Repeat chest xray completed this morning showing similar changes to moderate size left pleural effusion, with COPD changes. Review of xray he does have improvement of pleural effusion to left lower lobe. He continues on bronchodilators, empiric antibiotic coverage with IV ceftriaxone. He is also receiving gentle hydration with 0.9 ns at 50 mls per hour which will be stopped today, sodium today is 137. He was given a dose of IV lasix today. Urinalysis is negative for infection he does have 1+ protein and rare bacteria, rare glucose. Continues to have have white colored penile discharge will culture. Also has some erythema and yeast appearance to his groin. Blood cultures negative so far, sputum culture is pending. Oxygen saturation has improved 96 to 98% on 2L nasal cannula, he remains afebrile. Blood pressure stable at 125/63, heart rate 88. Pulmonary is following. He is pending PT/OT evaluation. 07/10/2022 Patient is sitting up in chair today. He is currently denying abdominal pain. Around 2 am this morning patient states he was having significant left lower quadrant abdominal pain. He had chest/abdomen/pelvis CT done showing left p leural effusion and multiple lower lobe noncalcified pulmonary nodules, with a few upper lobe small nodules, this could possibly be recurrent tumor and is increased from prior exam. There is no acute abnormality in abdomen and pelvis. Patient has L3 compression fracture possible metastatic disease present on old exam which he states he is aware of. He did get dulcolax suppository and had multiple bowel movements he would not like another suppository today. Labs today showing hgb stable at 8.3, no reports of melenic stool. Potassium 5.4, sodium 139, BUN 61.7, creatinine 2.2 which is improving. Blood glucose in the 280s. He is afebrile, heart rate 83, blood pressure 145/70, 98% on 2L nasal cannula. Review of Systems Constitutional: Denied any fatigue denied any fever. Cardio vascular: denied any chest pain, palpitations Gastrointestinal: denied any nausea, vomiting, diarrhea. Pulmonary: Reports shortness of breath, reports cough with sputum. Neurologic denied any new focal deficits All inpatient medications were reviewed and appropriate changes in these medications as dictated in the interval history and assessment and plan. PHYSICAL EXAMINATION: GENERAL: The patient is alert and oriented x3, not in any acute distress. Well developed, well nourished. HEENT: Pupils are round and equally reacting to light. EOMI. No scleral icterus. No conjunctival pallor. Normocephalic, atraumatic. No pharyngeal erythema. No thyromegaly. CARDIOVASCULAR: S1 and S2 present. No murmurs, rubs, or gallops. PULMONARY: Patient has scattered rales throughout ABDOMEN: Soft, nontender, nondistended, normoactive bowel sounds. No palpable organomegaly. MUSCULOSKELETAL: No joint swelling or deformity. EXTREMITIES: No cyanosis, clubbing, or pedal edema. NEUROLOGICAL: Gross neurological examination did not reveal any focal deficits. SKIN: No rashes. Left groin has some erythema and moist. Assessment and plan Assessment Acute hypoxic respiratory failure secondary to COPD exacerbation, 2L nasal cannula as needed Left lower lobe pneumonia improving based on recent CT scan. Hyponatremia, hypovolemic has improved with gentle hydration Hypomagnesemia from poor oral intake Acute renal injury mostly prerenal improving Chronic kidney disease stage 4 Diabetes Mellitus type 2 with hyperglycemia, A1C 7.3 History DVT Hypertension Hyperlipidemia History lung cancer post left upper lobectomy, right lower wedge resection post immunotherapy Coronary artery disease status post PCI in the past Carotid artery stenosis post stenting History of seizure disorder maintained on keppra Chronic anemia Gastroesophageal reflux disease GI Prophylaxis: DVT Prophylaxis: Maintained on Xarelto Plan Continue oxygen support, wean as tolerated Continue on bronchodilators Continue on empiric antibiotic coverage Patient was started on IV steroids Continue blood glucose monitoring, meal coverage increased today PT/OT consultation Repeat labs in AM Pulmonary consultation Discussed genital discharge with patient cultures pending, will follow up with urology outpatient The impression and plan of care has been dictated by Carolyn Charles, Nurse Practitioner as directed. Dr. Damion MD I have performed a history and physical examination and medical decision making of this patient, discussed the same with the dictator, and agree with the dictators assessment and plan as written, documented as a scribe. Based on total visit time, I have performed more than 50% of this visit. Objective - Vital Signs Vital signs: Vital Signs Temp 98.4 F 07/10/22 14:00 Pulse 83 07/10/22 14:00 Resp 17 07/10/22 14:00 BP 145/70 07/10/22 14:00 Pulse Ox 98 07/10/22 14:00 FiO2 Intake & Output 07/09/22 07/10/22 07/10/22 18:59 06:59 18:59 Intake Total 450 Balance 450 Weight 98 kg Intake: Intake, IV Titration 450 Amount Sodium Chloride 0.9% 1, 400 000 ml @ 50 mls/hr IV . Q20H [facility] Rx#:[id number] cefTRIAXone 1 gm In 50 Sodium Chloride 0.9% 50 ml @ 100 mls/hr IVPB Q24HR NI Rx#:[id number] Other: # Voids 1 3 # Bowel Movements 1 - Labs CBC & Chem 7: 07/10/22 04:23 07/10/22 04:23 Labs: Abnormal Lab Results - Last 24 Hours (Table) 07/09/22 07/10/22 07/10/22 Range/Units 20:16 04:23 04:23 RBC 2.80 L (4.40-5.60) X 10*6/uL Hgb 8.3 L (13.0-17.0) g/dL Hct 26.4 L (39.6-50.0) % MCHC 31.4 L (32.0-37.0) g/dL RDW 14.7 H (11.5-14.5) % Immature Gran # 0.07 H (0.00-0.04) X 10*3/uL Neutrophils # 9.43 H (1.80-7.70) X 10*3/uL Lymphocytes # 0.17 L (0.90-5.00) X 10*3/uL Monocytes # 0.11 L (0.20-1.00) X 10*3/uL Eosinophils # 0 L (0.04-0.35) X 10*3/uL BUN 61.7 H (9.0-27.0) mg/dL Creatinine 2.2 H (0.6-1.5) mg/dL Est GFR (CKD-EPI)AfAm 32.9 L (60.0-200.0) Est GFR (CKD-EPI)NonAf 28.4 L (60.0-200.0) BUN/Creatinine Ratio 28.17 H (12.00-20.00) Ratio Glucose 319 H (70-110) mg/dL POC Glucose (mg/dL) 265 H (70-110) mg/dL 07/10/22 07/10/22 Range/Units 06:49 11:18 RBC (4.40-5.60) X 10*6/uL Hgb (13.0-17.0) g/dL Hct (39.6-50.0) % MCHC (32.0-37.0) g/dL RDW (11.5-14.5) % Immature Gran # (0.00-0.04) X 10*3/uL Neutrophils # (1.80-7.70) X 10*3/uL Lymphocytes # (0.90-5.00) X 10*3/uL Monocytes # (0.20-1.00) X 10*3/uL Eosinophils # (0.04-0.35) X 10*3/uL BUN (9.0-27.0) mg/dL Creatinine (0.6-1.5) mg/dL Est GFR (CKD-EPI)AfAm (60.0-200.0) Est GFR (CKD-EPI)NonAf (60.0-200.0) BUN/Creatinine Ratio (12.00-20.00) Ratio Glucose (70-110) mg/dL POC Glucose (mg/dL) 286 H 287 H (70-110) mg/dL Microbiology - Last 24 Hours (Table) 07/06/22 14:13 Blood Culture - Preliminary Blood No Growth after 96 hours 07/06/22 14:13 Blood Culture - Preliminary Blood No Growth after 96 hours Assessment and Plan Time with Patient: Less than 30
[2022-07-10 16:53] LABS: Glucose,Whole Blood 304 mg/dL (70-110)
[2022-07-10] MEDS: SIMETHICONE 80 MG CHEWABLE PO PRN (17:56)
[2022-07-10] MEDS ORDERED: SIMETHICONE 80 MG CHEWABLE PO SCH (18:00)
[2022-07-10 20:23] LABS: Glucose,Whole Blood 312 mg/dL (70-110)
[2022-07-10] MEDS: ASPIRIN 81 MG PO SCH (22:54)
[2022-07-10] MEDS: ATORVASTATIN 10 MG TAB PO SCH (22:55)
[2022-07-10] MEDS: PANTOPRAZOLE 40 MG TABLET PO SCH (22:55)
[2022-07-10] MEDS: INSULIN DETEMIR (LEVEMIR) 100 UNIT/ML SYR SQ SCH (22:56)
[2022-07-10] MEDS: TROSPIUM CHLORIDE 20 MG TABLET PO SCH (23:17)
[2022-07-11] MEDS: methylPREDNISolone SOD SUCCI 40 MG/ML 1 ML VIAL IV SCH ×3 (03:55→20:33)
[2022-07-11] MEDS: LEVOTHYROXINE 25 MCG TAB PO SCH (05:14)
[2022-07-11] MEDS: ONDANSETRON 4 MG/2 ML VIAL IVP PRN (07:17)
[2022-07-11 07:20] LABS: Glucose,Whole Blood 230 mg/dL (70-110)
[2022-07-11] MEDS: SIMETHICONE 80 MG CHEWABLE PO PRN (07:29)
[2022-07-11] MEDS: bisacodyL 5 MG TABLET.DR PO PRN (07:30)
[2022-07-11] MEDS: IPRATROPIUM-ALBUTEROL 3 ML NEB INHALATION SCH ×4 (08:21→20:46)
[2022-07-11] MEDS: METOPROLOL TARTRATE 25 MG TAB PO SCH ×2 (09:33→20:33)
[2022-07-11] MEDS: RIVAROXABAN 15 MG TAB PO SCH (09:33)
[2022-07-11] MEDS: FERROUS SULFATE 325 MG TAB PO SCH (09:33)
[2022-07-11] MEDS: allopurinoL 100 MG TAB PO SCH (09:33)
[2022-07-11] MEDS: levETIRAcetam 500 MG TAB PO SCH ×2 (09:33→20:33)
[2022-07-11] MEDS: DOCUSATE 100 MG CAP PO SCH (09:33)
[2022-07-11] MEDS: MAGNESIUM OXIDE 400 MG TAB PO SCH ×2 (09:33→20:33)
[2022-07-11] MEDS: INSULIN ASPART (NovoLOG) 100 UNIT/ML VIAL SQ SCH ×7 (09:34→21:10)
[2022-07-11] MEDS: NYSTATIN 100,000UNIT/GM CREAM 30 GM TUBE TOPICAL SCH ×2 (09:47→20:34)
[2022-07-11 11:00] LABS: Basophils # (A) 0.01 X 10*3/uL (0.00-0.10); Basophils % (A) 0.1 %; Eosinophils # (A) 0 X 10*3/uL (0.04-0.35); Eosinophils % (A) 0 %; HCT 27.2 % (39.6-50.0); HGB 8.9 g/dL (13.0-17.0); Lymphocytes % (A) 1.6 %; MCH 29.8 pg (27.0-32.0); MCHC 32.7 g/dL (32.0-37.0); Mean Platelet Volume 10.6 fL (9.5-12.2); Monocytes # (A) 0.11 X 10*3/uL (0.20-1.00); Monocytes % (A) 0.9 %; NRBC Per 100 WBC 0 /100 WBCS (0.0-0.0); Neutrophils # (A) 12.03 X 10*3/uL (1.80-7.70); Neutrophils % (A) 96.4 %; Platelet Count 193 X 10*3/uL (140-440); RBC 2.99 X 10*6/uL (4.40-5.60); RDW 14.7 % (11.5-14.5); WBC 12.48 X 10*3/uL (4.50-10.00)
[2022-07-11 11:10] LABS: African American GFR (CKD) 39.1 (60.0-200.0); Anion Gap 11.2 mmol/L (10.00-18.00); BUN/Creat Ratio 31.47 Ratio (12.00-20.00); Blood Urea Nitrogen 59.8 mg/dL (9.0-27.0); Carbon Dioxide 21.8 mmol/L (20.0-27.5); Non-African American GFR(CKD) 33.7 (60.0-200.0); Potassium 4.7 mmol/L (3.5-5.5)
[2022-07-11 11:15] LABS: Glucose,Whole Blood 249 mg/dL (70-110)
[2022-07-11 16:27] LABS: C. trachomatis,PCR Negative (Neg,Equiv); Chlamydia trachomatis Source Genital; N. gonorrhoeae,PCR Negative (Neg,Equiv); Neisseria Source Genital
[2022-07-11 19:07] LABS: Glucose,Whole Blood 126 mg/dL (70-110)
[2022-07-11] MEDS: TROSPIUM CHLORIDE 20 MG TABLET PO SCH (20:32)
[2022-07-11] MEDS: ASPIRIN 81 MG PO SCH (20:32)
[2022-07-11] MEDS: ATORVASTATIN 10 MG TAB PO SCH (20:33)
[2022-07-11] MEDS: PANTOPRAZOLE 40 MG TABLET PO SCH (20:33)
[2022-07-11 21:03] LABS: Glucose,Whole Blood 124 mg/dL (70-110)
--- NOTE | 2022-07-11 21:18 | P.PN ---
Subjective Progress Note Date: 07/11/22 The patient is seen today 07/11/2022 in follow-up. He's been treated for an acute exacerbation of COPD and the left lower lobe suspected pneumonia. He is currently sitting up in bed. Awake and alert in no acute distress. He is maintaining O2 saturations in the 90s on 2 L/m per nasal cannula. Sputum c ulture revealed no growth. Blood cultures revealed no growth. White count 12.4. Hemoglobin 8.9. Sodium 137. Potassium 4.7. BUN 60. Creatinine 1.9. Glucose 232. He is continued on DuoNeb inhalations, IV Solu-Medrol and antibiotics in the form of ceftriaxone. Anticoagulated with Xarelto. Objective - Vital Signs Vital signs: Vital Signs Temp 98.0 F 07/11/22 07:35 Pulse 90 07/11/22 20:46 Resp 16 07/11/22 07:35 BP 150/73 07/11/22 07:35 Pulse Ox 97 07/11/22 20:46 FiO2 Intake & Output 07/11/22 07/11/22 07/12/22 06:59 18:59 06:59 Intake Total 360 50 Balance 360 50 Intake: Intake, IV Titration 50 Amount cefTRIAXone 1 gm In 50 Sodium Chloride 0.9% 50 ml @ 100 mls/hr IVPB Q24HR [facility] Rx#:[id number] Oral 360 Other: Voiding Method Toilet # Voids 1 1 - Exam GENERAL EXAM: Alert, pleasant 76-year-old male patient, on 2 L, comfortable in no apparent distress. HEAD: Normocephalic. EYES: Normal reaction of pupils, equal size. NOSE: Clear with pink turbinates. THROAT: No erythema or exudates. NECK: No masses, no JVD. CHEST: No chest wall deformity. LUNGS: Equal air entry with crackles in left lung base. CVS: S1 and S2 normal with no audible murmur, regular rhythm. ABDOMEN: No hepatosplenomegaly, normal bowel sounds, no guarding or rigidity. SPINE: No scoliosis or deformity SKIN: No rashes CENTRAL NERVOUS SYSTEM: No focal deficits, tone is normal in all 4 extremities. EXTREMITIES: There is no peripheral edema. No clubbing, no cyanosis. Peripheral pulses are intact. - Labs CBC & Chem 7: 07/11/22 07:52 07/11/22 07:52 Labs: Abnormal Lab Results - Last 24 Hours (Table) 07/11/22 07/11/22 07/11/22 Range/Units 07:18 07:52 07:52 WBC 12.48 H (4.50-10.00) X 10*3/uL RBC 2.99 L (4.40-5.60) X 10*6/uL Hgb 8.9 L (13.0-17.0) g/dL Hct 27.2 L (39.6-50.0) % RDW 14.7 H (11.5-14.5) % Immature Gran # 0.13 H (0.00-0.04) X 10*3/uL Neutrophils # 12.03 H (1.80-7.70) X 10*3/uL Lymphocytes # 0.20 L (0.90-5.00) X 10*3/uL Monocytes # 0.11 L (0.20-1.00) X 10*3/uL Eosinophils # 0 L (0.04-0.35) X 10*3/uL BUN 59.8 H (9.0-27.0) mg/dL Creatinine 1.9 H (0.6-1.5) mg/dL Est GFR (CKD-EPI)AfAm 39.1 L (60.0-200.0) Est GFR (CKD-EPI)NonAf 33.7 L (60.0-200.0) BUN/Creatinine Ratio 31.47 H (12.00-20.00) Ratio Glucose 232 H (70-110) mg/dL POC Glucose (mg/dL) 230 H (70-110) mg/dL 07/11/22 07/11/22 07/11/22 Range/Units 11:13 16:38 21:00 WBC (4.50-10.00) X 10*3/uL RBC (4.40-5.60) X 10*6/uL Hgb (13.0-17.0) g/dL Hct (39.6-50.0) % RDW (11.5-14.5) % Immature Gran # (0.00-0.04) X 10*3/uL Neutrophils # (1.80-7.70) X 10*3/uL Lymphocytes # (0.90-5.00) X 10*3/uL Monocytes # (0.20-1.00) X 10*3/uL Eosinophils # (0.04-0.35) X 10*3/uL BUN (9.0-27.0) mg/dL Creatinine (0.6-1.5) mg/dL Est GFR (CKD-EPI)AfAm (60.0-200.0) Est GFR (CKD-EPI)NonAf (60.0-200.0) BUN/Creatinine Ratio (12.00-20.00) Ratio Glucose (70-110) mg/dL POC Glucose (mg/dL) 249 H 126 H 124 H (70-110) mg/dL Microbiology - Last 24 Hours (Table) 07/06/22 14:13 Blood Culture - Preliminary Blood No Growth after 120 hours 07/06/22 14:13 Blood Culture - Preliminary Blood No Growth after 120 hours Assessment and Plan Assessment: Left lower lobe pneumonia Acute exacerbation of chronic obstructive pulmonary disease secondary to above COPD with baseline FEV1 value of 47% of predicted History of metastatic adenocarcinoma lung Previous TIA Chronic stage III kidney disease Diabetes mellitus Hypertension Hyperlipidemia History of DVT maintained on Xarelto Degenerative arthritis was of the cervical spine Chronic anemia Plan: The patient was seen and evaluated He is currently on ceftriaxone Continue bronchodilators IV cimetidine Improved Prole discharge in the a.m. We'll continue to follow II have personally seen and examined the patient, performed the documentation and the assessment and plan as written. Number of minutes spent on the visit: 10.
[2022-07-11] MEDS: INSULIN DETEMIR (LEVEMIR) 100 UNIT/ML SYR SQ SCH (21:20)
[2022-07-12] MEDS: SIMETHICONE 80 MG CHEWABLE PO PRN ×2 (00:46→09:52)
[2022-07-12] MEDS: methylPREDNISolone SOD SUCCI 40 MG/ML 1 ML VIAL IV SCH ×2 (03:39→10:50)
[2022-07-12] MEDS: LEVOTHYROXINE 25 MCG TAB PO SCH (05:51)
[2022-07-12 07:07] LABS: Glucose,Whole Blood 141 mg/dL (70-110)
[2022-07-12] MEDS: IPRATROPIUM-ALBUTEROL 3 ML NEB INHALATION SCH ×4 (07:20→19:24)
[2022-07-12] MEDS: INSULIN ASPART (NovoLOG) 100 UNIT/ML VIAL SQ SCH ×7 (07:39→21:37)
[2022-07-12] MEDS: bisacodyL 5 MG TABLET.DR PO PRN (09:51)
[2022-07-12] MEDS: DOCUSATE 100 MG CAP PO SCH (09:52)
[2022-07-12] MEDS: allopurinoL 100 MG TAB PO SCH (09:52)
[2022-07-12] MEDS: MAGNESIUM OXIDE 400 MG TAB PO SCH ×2 (09:52→21:38)
[2022-07-12] MEDS: levETIRAcetam 500 MG TAB PO SCH ×2 (09:52→21:38)
[2022-07-12] MEDS: FERROUS SULFATE 325 MG TAB PO SCH (09:52)
[2022-07-12] MEDS: METOPROLOL TARTRATE 25 MG TAB PO SCH ×2 (09:52→21:38)
[2022-07-12] MEDS: RIVAROXABAN 15 MG TAB PO SCH (09:52)
[2022-07-12] MEDS: NYSTATIN 100,000UNIT/GM CREAM 30 GM TUBE TOPICAL SCH ×2 (10:00→21:38)
[2022-07-12 10:29] LABS: Basophils # (A) 0.01 X 10*3/uL (0.00-0.10); Basophils % (A) 0.1 %; Eosinophils # (A) 0 X 10*3/uL (0.04-0.35); Eosinophils % (A) 0 %; HCT 26.5 % (39.6-50.0); HGB 8.6 g/dL (13.0-17.0); Immature Grans, Automated 1.2 %; Lymphocytes # (A) 0.21 X 10*3/uL (0.90-5.00); Lymphocytes % (A) 1.6 %; MCHC 32.5 g/dL (32.0-37.0); MCV 92.3 fL (80.0-97.0); Mean Platelet Volume 10.6 fL (9.5-12.2); Monocytes # (A) 0.18 X 10*3/uL (0.20-1.00); Monocytes % (A) 1.4 %; NRBC Per 100 WBC 0 /100 WBCS (0.0-0.0); Neutrophils # (A) 12.73 X 10*3/uL (1.80-7.70); Neutrophils % (A) 95.7 %; Platelet Count 202 X 10*3/uL (140-440); RBC 2.87 X 10*6/uL (4.40-5.60); RDW 14.9 % (11.5-14.5); WBC 13.29 X 10*3/uL (4.50-10.00)
[2022-07-12 10:51] LABS: African American GFR (CKD) 31.4 (60.0-200.0); Anion Gap 11.7 mmol/L (10.00-18.00); BUN/Creat Ratio 27.37 Ratio (12.00-20.00); Blood Urea Nitrogen 62.4 mg/dL (9.0-27.0); Calcium 8.7 mg/dL (8.7-10.3); Carbon Dioxide 22.6 mmol/L (20.0-27.5); Non-African American GFR(CKD) 27.1 (60.0-200.0); Potassium 5.1 mmol/L (3.5-5.5)
[2022-07-12 11:43] LABS: Glucose,Whole Blood 140 mg/dL (70-110)
[2022-07-12] MEDS ORDERED: polyethylene glycoL 3350 17 GM POWD.PACK PO PRN (12:57)
--- NOTE | 2022-07-12 13:27 | P.PN ---
Subjective Progress Note Date: 07/12/22 The patient is seen today 07/11/2022 in follow-up. He's been treated for an acute exacerbation of COPD and the left lower lobe suspected pneumonia. He is currently sitting up in bed. Awake and alert in no acute distress. He is maintaining O2 saturations in the 90s on 2 L/m per nasal cannula. Sputum c ulture revealed no growth. Blood cultures revealed no growth. White count 12.4. Hemoglobin 8.9. Sodium 137. Potassium 4.7. BUN 60. Creatinine 1.9. Glucose 232. He is continued on DuoNeb inhalations, IV Solu-Medrol and antibiotics in the form of ceftriaxone. Anticoagulated with Xarelto. The patient is seen today 07/12/2022 in follow-up on the regular medical floor. He is currently sitting up in a chair at the bedside. Awake and alert in no acute distress. Maintaining good O2 saturations in the 90s on room air. He's been afebrile. Hemodynamically stable. He was continued on ceftriaxone, DuoNeb inhalations, IV Solu-Medrol. Sputum culture reveals no growth. Blood cultures reveal no growth. White count 13.2. Hemoglobin 8.6. Sodium 139. Potassium 5.1. BUN 62. Creatinine 2.3. Glucose 138. Objective - Vital Signs Vital signs: Vital Signs Temp 97.2 F L 07/12/22 12:44 Pulse 93 07/12/22 12:44 Resp 20 07/12/22 12:44 BP 130/91 07/12/22 12:44 Pulse Ox 97 07/12/22 12:44 FiO2 Intake & Output 07/11/22 07/12/22 07/12/22 18:59 06:59 18:59 Intake Total 50 346 Balance 50 346 Weight 82.1 kg Intake: Intake, IV Titration 50 50 Amount cefTRIAXone 1 gm In 50 50 Sodium Chloride 0.9% 50 ml @ 100 mls/hr IVPB Q24HR [facility] Rx#:[id number] Oral 296 Other: Voiding Method Toilet Toilet # Voids 1 1 1 - Exam GENERAL EXAM: Alert, pleasant 76-year-old male patient, on room air, comfortable in no apparent distress. HEAD: Normocephalic. EYES: Normal reaction of pupils, equal size. NOSE: Clear with pink turbinates. THROAT: No erythema or exudates. NECK: No masses, no JVD. CHEST: No chest wall deformity. LUNGS: Equal air entry with crackles in left lung base. CVS: S1 and S2 normal with no audible murmur, regular rhythm. ABDOMEN: No hepatosplenomegaly, normal bowel sounds, no guarding or rigidity. SPINE: No scoliosis or deformity SKIN: No rashes CENTRAL NERVOUS SYSTEM: No focal deficits, tone is normal in all 4 extremities. EXTREMITIES: There is no peripheral edema. No clubbing, no cyanosis. Peripheral pulses are intact. - Labs CBC & Chem 7: 07/12/22 06:37 07/12/22 06:37 Labs: Abnormal Lab Results - Last 24 Hours (Table) 07/11/22 07/11/22 07/12/22 Range/Units 16:38 21:00 06:37 WBC 13.29 H (4.50-10.00) X 10*3/uL RBC 2.87 L (4.40-5.60) X 10*6/uL Hgb 8.6 L (13.0-17.0) g/dL Hct 26.5 L (39.6-50.0) % RDW 14.9 H (11.5-14.5) % Immature Gran # 0.16 H (0.00-0.04) X 10*3/uL Neutrophils # 12.73 H (1.80-7.70) X 10*3/uL Lymphocytes # 0.21 L (0.90-5.00) X 10*3/uL Monocytes # 0.18 L (0.20-1.00) X 10*3/uL Eosinophils # 0 L (0.04-0.35) X 10*3/uL BUN (9.0-27.0) mg/dL Creatinine (0.6-1.5) mg/dL Est GFR (CKD-EPI)AfAm (60.0-200.0) Est GFR (CKD-EPI)NonAf (60.0-200.0) BUN/Creatinine Ratio (12.00-20.00) Ratio Glucose (70-110) mg/dL POC Glucose (mg/dL) 126 H 124 H (70-110) mg/dL 07/12/22 07/12/22 07/12/22 Range/Units 06:37 07:06 11:41 WBC (4.50-10.00) X 10*3/uL RBC (4.40-5.60) X 10*6/uL Hgb (13.0-17.0) g/dL Hct (39.6-50.0) % RDW (11.5-14.5) % Immature Gran # (0.00-0.04) X 10*3/uL Neutrophils # (1.80-7.70) X 10*3/uL Lymphocytes # (0.90-5.00) X 10*3/uL Monocytes # (0.20-1.00) X 10*3/uL Eosinophils # (0.04-0.35) X 10*3/uL BUN 62.4 H (9.0-27.0) mg/dL Creatinine 2.3 H (0.6-1.5) mg/dL Est GFR (CKD-EPI)AfAm 31.4 L (60.0-200.0) Est GFR (CKD-EPI)NonAf 27.1 L (60.0-200.0) BUN/Creatinine Ratio 27.37 H (12.00-20.00) Ratio Glucose 138 H (70-110) mg/dL POC Glucose (mg/dL) 141 H 140 H (70-110) mg/dL Microbiology - Last 24 Hours (Table) 07/06/22 14:13 Blood Culture - Preliminary Blood No Growth after 120 hours 07/06/22 14:13 Blood Culture - Preliminary Blood No Growth after 120 hours Assessment and Plan Assessment: Left lower lobe pneumonia, improved on room air Acute exacerbation of chronic obstructive pulmonary disease secondary to above COPD with baseline FEV1 value of 47% of predicted History of metastatic adenocarcinoma lung Previous TIA Chronic stage III kidney disease Diabetes mellitus Hypertension Hyperlipidemia History of DVT maintained on Xarelto Degenerative arthritis was of the cervical spine Chronic anemia Plan: The patient was seen and evaluated Stable and cleared for discharge from the pulmonary standpoint Follow-up in the office in 1-2 weeks' We'll perform a follow-up chest x-ray then I have personally seen and examined the patient, performed the documentation and the assessment and plan as written. Number of minutes spent on the visit: 10.
[2022-07-12 17:00] LABS: Glucose,Whole Blood 55 mg/dL (70-110)
[2022-07-12] MEDS: predniSONE 10 MG TAB PO SCH (17:14)
[2022-07-12 17:18] LABS: Glucose,Whole Blood 51 mg/dL (70-110)
[2022-07-12 17:37] LABS: Glucose,Whole Blood 61 mg/dL (70-110)
[2022-07-12 17:58] LABS: Glucose,Whole Blood 84 mg/dL (70-110)
[2022-07-12 20:44] LABS: Glucose,Whole Blood 174 mg/dL (70-110)
[2022-07-12] MEDS: INSULIN DETEMIR (LEVEMIR) 100 UNIT/ML SYR SQ SCH (21:37)
[2022-07-12] MEDS: PANTOPRAZOLE 40 MG TABLET PO SCH (21:38)
[2022-07-12] MEDS: ATORVASTATIN 10 MG TAB PO SCH (21:38)
[2022-07-12] MEDS: TROSPIUM CHLORIDE 20 MG TABLET PO SCH (21:38)
--- NOTE | 2022-07-12 22:51 | P.PN ---
Subjective Progress Note Date: 07/11/22 This is a pleasant 76 year old male who presents with dyspnea and admitted for COPD exacerbation. Patient does have history of lung cancer in both right and left lung status post left upper lobectomy and also right lower wedge resection, post immunotherapy, and per most recent PET scan continues in remission. He has had previous hospitalization last month for syncope possible seizure activity and also for COPD exacerbation in March of this year. Patient recently underwent EGD with findings of gastritis. Patient does not wear home oxygen, he did require 2L on admission. Currently 93% on room air. He reports his shortness of breath has improved, he does have a faint end expiratory wheeze. He does have sputum production as well. Steroids discontinued. Chest xray on admission showing possible left lower lobe pneumonia and he continues on IV ceftriaxone emprically. Pulmonary is following and patient will have repeat chest xray in AM. Blood glucose monitoring in place and insulin has been adjusted. 07/08/2022 Patient is evaluated today sitting up in chair. No acute events overnight. He is off oxygen currently at time of my assessment. He denies shortness of breath at rest. He does report hoarseness in his throat. Denies sore throat, minimal cough. Was able to give sputum sample which is currently. On IV ceftriaxone empirically. Blood culture negative so far. AM chest xray today showing similar small to moderate size left pleural effusion, COPD changes with similar nodularity left lateral lower lung. He is seeing pulmonary services. Sodium 134 today, potassium 4.7, BUN 62.8, creatinine 2.6. Blood glucose elevated at 290 which is slowly coming down. Magnesium 1.8 today. Insulin has been increased today. He continues on gentle hydration 0.9 normal saline at 50 cc per hour, bronchodilators. Incentive spirometer ordered. 07/09/2022 Repeat chest xray completed this morning showing similar changes to moderate size left pleural effusion, with COPD changes. Review of xray he does have improvement of pleural effusion to left lower lobe. He continues on bronchodilators, empiric antibiotic coverage with IV ceftriaxone. He is also receiving gentle hydration with 0.9 ns at 50 mls per hour which will be stopped today, sodium today is 137. He was given a dose of IV lasix today. Urinalysis is negative for infection he does have 1+ protein and rare bacteria, rare glucose. Continues to have have white colored penile discharge will culture. Also has some erythema and yeast appearance to his groin. Blood cultures negative so far, sputum culture is pending. Oxygen saturation has improved 96 to 98% on 2L nasal cannula, he remains afebrile. Blood pressure stable at 125/63, heart rate 88. Pulmonary is following. He is pending PT/OT evaluation. 07/10/2022 Patient is sitting up in chair today. He is currently denying abdominal pain. Around 2 am this morning patient states he was having significant left lower quadrant abdominal pain. He had chest/abdomen/pelvis CT done showing left pleural effusion and multiple lower lobe noncalcified pulmonary nodules, with a few upper lobe small nodules, this could possibly be recurrent tumor and is increased from prior exam. There is no acute abnormality in abdomen and pelvis. Patient has L3 compression fracture possible metastatic disease present on old exam which he states he is aware of. He did get dulcolax suppository and had multiple bowel movements he would not like another suppository today. Labs today showing hgb stable at 8.3, no reports of melenic stool. Potassium 5.4, sodium 139, BUN 61.7, creatinine 2.2 which is improving. Blood glucose in the 280s. He is afebrile, heart rate 83, blood pressure 145/70, 98% on 2L nasal cannula. 07/11/2022 Patient is currently sitting in the bed. Awake alert and oriented. Still having exertional dyspnea and bilateral wheezing and rhonchi on exam. No complaints of chest pain. Patient is currently on 2 L oxygen via nasal cannula. Cultures are negative. Does have cough without any sputum production. Patient is being current on IV steroids and duo nebs. Laboratory data showed WBC 12.4 hemoglobin 8.9 and platelets 193 Sodium 137 potassium 4.7 chloride 104 BUN 59.8 and creatinine 1.9. Blood sugar is 232 Current medications reviewed. Review of Systems Constitutional: Denied any fatigue denied any fever. Cardio vascular: denied any chest pain, palpitations Gastrointestinal: denied any nausea, vomiting, diarrhea. Pulmonary: Reports shortness of breath, reports cough with sputum. Neurologic denied any new focal deficits All inpatient medications were reviewed and appropriate changes in these medications as dictated in the interval history and assessment and plan. PHYSICAL EXAMINATION: GENERAL: The patient is alert and oriented x3, not in any acute distress. Well developed, well nourished. HEENT: Pupils are round and equally reacting to light. EOMI. No scleral icterus. No conjunctival pallor. Normocephalic, atraumatic. No pharyngeal erythema. No thyromegaly. CARDIOVASCULAR: S1 and S2 present. No murmurs, rubs, or gallops. PULMONARY: Patient has scattered rales throughout ABDOMEN: Soft, nontender, nondistended, normoactive bowel sounds. No palpable organomegaly. MUSCULOSKELETAL: No joint swelling or deformity. EXTREMITIES: No cyanosis, clubbing, or pedal edema. NEUROLOGICAL: Gross neurological examination did not reveal any focal deficits. SKIN: No rashes. Left groin has some erythema and moist. Assessment and plan Assessment Acute hypoxic respiratory failure secondary to COPD exacerbation, 2L nasal cannula as needed Left lower lobe pneumonia improving based on recent CT scan. Hyponatremia, hypovolemic has improved with gentle hydration Hypomagnesemia from poor oral intake Acute renal injury mostly prerenal improving Chronic kidney disease stage 4 Diabetes Mellitus type 2 with hyperglycemia, A1C 7.3 History DVT Hypertension Hyperlipidemia History lung cancer post left upper lobectomy, right lower wedge resection post immunotherapy Coronary artery disease status post PCI in the past Carotid artery stenosis post stenting History of seizure disorder maintained on keppra Chronic anemia Gastroesophageal reflux disease GI Prophylaxis: DVT Prophylaxis: Maintained on Xarelto Plan Continue oxygen support, wean as tolerated Continue on bronchodilators Continue on empiric antibiotic coverage Patient was started on IV steroids Continue blood glucose monitoring, meal coverage increased today PT/OT consultation Pulmonary is on board. Objective - Vital Signs Vital signs: Vital Signs Temp 97.4 F L 07/11/22 19:46 Pulse 90 07/11/22 20:46 Resp 22 07/11/22 19:46 BP 145/71 07/11/22 19:46 Pulse Ox 97 07/11/22 20:46 FiO2 Intake & Output 07/11/22 07/11/22 07/12/22 06:59 18:59 06:59 Intake Total 360 50 Balance 360 50 Intake: Intake, IV Titration 50 Amount cefTRIAXone 1 gm In 50 Sodium Chloride 0.9% 50 ml @ 100 mls/hr IVPB Q24HR [facility] Rx#:[id number] Oral 360 Other: Voiding Method Toilet # Voids 1 1 4 - Labs CBC & Chem 7: 07/12/22 06:37 07/12/22 06:37 Labs: Abnormal Lab Results - Last 24 Hours (Table) 07/11/22 07/11/22 07/11/22 Range/Units 07:18 07:52 07:52 WBC 12.48 H (4.50-10.00) X 10*3/uL RBC 2.99 L (4.40-5.60) X 10*6/uL Hgb 8.9 L (13.0-17.0) g/dL Hct 27.2 L (39.6-50.0) % RDW 14.7 H (11.5-14.5) % Immature Gran # 0.13 H (0.00-0.04) X 10*3/uL Neutrophils # 12.03 H (1.80-7.70) X 10*3/uL Lymphocytes # 0.20 L (0.90-5.00) X 10*3/uL Monocytes # 0.11 L (0.20-1.00) X 10*3/uL Eosinophils # 0 L (0.04-0.35) X 10*3/uL BUN 59.8 H (9.0-27.0) mg/dL Creatinine 1.9 H (0.6-1.5) mg/dL Est GFR (CKD-EPI)AfAm 39.1 L (60.0-200.0) Est GFR (CKD-EPI)NonAf 33.7 L (60.0-200.0) BUN/Creatinine Ratio 31.47 H (12.00-20.00) Ratio Glucose 232 H (70-110) mg/dL POC Glucose (mg/dL) 230 H (70-110) mg/dL 07/11/22 07/11/22 07/11/22 Range/Units 11:13 16:38 21:00 WBC (4.50-10.00) X 10*3/uL RBC (4.40-5.60) X 10*6/uL Hgb (13.0-17.0) g/dL Hct (39.6-50.0) % RDW (11.5-14.5) % Immature Gran # (0.00-0.04) X 10*3/uL Neutrophils # (1.80-7.70) X 10*3/uL Lymphocytes # (0.90-5.00) X 10*3/uL Monocytes # (0.20-1.00) X 10*3/uL Eosinophils # (0.04-0.35) X 10*3/uL BUN (9.0-27.0) mg/dL Creatinine (0.6-1.5) mg/dL Est GFR (CKD-EPI)AfAm (60.0-200.0) Est GFR (CKD-EPI)NonAf (60.0-200.0) BUN/Creatinine Ratio (12.00-20.00) Ratio Glucose (70-110) mg/dL POC Glucose (mg/dL) 249 H 126 H 124 H (70-110) mg/dL Microbiology - Last 24 Hours (Table) 07/06/22 14:13 Blood Culture - Preliminary Blood No Growth after 120 hours 07/06/22 14:13 Blood Culture - Preliminary Blood No Growth after 120 hours Assessment and Plan Time with Patient: Greater than 30
--- NOTE | 2022-07-12 22:53 | P.PN ---
Subjective Progress Note Date: 07/12/22 This is a pleasant 76 year old male who presents with dyspnea and admitted for COPD exacerbation. Patient does have history of lung cancer in both right and left lung status post left upper lobectomy and also right lower wedge resection, post immunotherapy, and per most recent PET scan continues in remission. He has had previous hospitalization last month for syncope possible seizure activity and also for COPD exacerbation in March of this year. Patient recently underwent EGD with findings of gastritis. Patient does not wear home oxygen, he did require 2L on admission. Currently 93% on room air. He reports his shortness of breath has improved, he does have a faint end expiratory wheeze. He does have sputum production as well. Steroids discontinued. Chest xray on admission showing possible left lower lobe pneumonia and he continues on IV ceftriaxone emprically. Pulmonary is following and patient will have repeat chest xray in AM. Blood glucose monitoring in place and insulin has been adjusted. 07/08/2022 Patient is evaluated today sitting up in chair. No acute events overnight. He is off oxygen currently at time of my assessment. He denies shortness of breath at rest. He does report hoarseness in his throat. Denies sore throat, minimal cough. Was able to give sputum sample which is currently. On IV ceftriaxone empirically. Blood culture negative so far. AM chest xray today showing similar small to moderate size left pleural effusion, COPD changes with similar nodularity left lateral lower lung. He is seeing pulmonary services. Sodium 134 today, potassium 4.7, BUN 62.8, creatinine 2.6. Blood glucose elevated at 290 which is slowly coming down. Magnesium 1.8 today. Insulin has been increased today. He continues on gentle hydration 0.9 normal saline at 50 cc per hour, bronchodilators. Incentive spirometer ordered. 07/09/2022 Repeat chest xray completed this morning showing similar changes to moderate size left pleural effusion, with COPD changes. Review of xray he does have improvement of pleural effusion to left lower lobe. He continues on bronchodilators, empiric antibiotic coverage with IV ceftriaxone. He is also receiving gentle hydration with 0.9 ns at 50 mls per hour which will be stopped today, sodium today is 137. He was given a dose of IV lasix today. Urinalysis is negative for infection he does have 1+ protein and rare bacteria, rare glucose. Continues to have have white colored penile discharge will culture. Also has some erythema and yeast appearance to his groin. Blood cultures negative so far, sputum culture is pending. Oxygen saturation has improved 96 to 98% on 2L nasal cannula, he remains afebrile. Blood pressure stable at 125/63, heart rate 88. Pulmonary is following. He is pending PT/OT evaluation. 07/10/2022 Patient is sitting up in chair today. He is currently denying abdominal pain. Around 2 am this morning patient states he was having significant left lower quadrant abdominal pain. He had chest/abdomen/pelvis CT done showing left pleural effusion and multiple lower lobe noncalcified pulmonary nodules, with a few upper lobe small nodules, this could possibly be recurrent tumor and is increased from prior exam. There is no acute abnormality in abdomen and pelvis. Patient has L3 compression fracture possible metastatic disease present on old exam which he states he is aware of. He did get dulcolax suppository and had multiple bowel movements he would not like another suppository today. Labs today showing hgb stable at 8.3, no reports of melenic stool. Potassium 5.4, sodium 139, BUN 61.7, creatinine 2.2 which is improving. Blood glucose in the 280s. He is afebrile, heart rate 83, blood pressure 145/70, 98% on 2L nasal cannula. 07/11/2022 Patient is currently sitting in the bed. Awake alert and oriented. Still having exertional dyspnea and bilateral wheezing and rhonchi on exam. No complaints of chest pain. Patient is currently on 2 L oxygen via nasal cannula. Cultures are negative. Does have cough without any sputum production. Patient is being current on IV steroids and duo nebs. Laboratory data showed WBC 12.4 hemoglobin 8.9 and platelets 193 Sodium 137 potassium 4.7 chloride 104 BUN 59.8 and creatinine 1.9. Blood sugar is 232 07/12/2022 Patient is sitting in his chair. Denied any worsening shortness of breath. Minimal wheezing bilaterally. No complaints of chest pain. Patient was also having abdominal discomfort and not having bowel movement for the past few days. There is also not eating well. Laboratory test showed WBC 13.2 hemoglobin 8.6 and platelets 202 Sodium 139 potassium 5.1 chloride 105 bicarb is 22.6 BUN 62.4 and creatinine increasing to 2.3. IV steroids will be discontinued and patient was started on prednisone 30 mg daily. Anticipate discharge in next 24 hours. Current medications reviewed. Review of Systems Constitutional: Denied any fatigue denied any fever. Cardio vascular: denied any chest pain, palpitations Gastrointestinal: denied any nausea, vomiting, diarrhea. Pulmonary: Reports shortness of breath, reports cough with sputum. Neurologic denied any new focal deficits All inpatient medications were reviewed and appropriate changes in these medications as dictated in the interval history and assessment and plan. PHYSICAL EXAMINATION: GENERAL: The patient is alert and oriented x3, not in any acute distress. Well developed, well nourished. HEENT: Pupils are round and equally reacting to light. EOMI. No scleral icterus. No conjunctival pallor. Normocephalic, atraumatic. No pharyngeal erythema. No thyromegaly. CARDIOVASCULAR: S1 and S2 present. No murmurs, rubs, or gallops. PULMONARY: Patient does have bilateral basilar wheezing and scattered rhonchi. Nonlabored breathing. ABDOMEN: Soft, nontender, nondistended, normoactive bowel sounds. No palpable organomegaly. MUSCULOSKELETAL: No joint swelling or deformity. EXTREMITIES: No cyanosis, clubbing, or pedal edema. NEUROLOGICAL: Gross neurological examination did not reveal any focal deficits. SKIN: No rashes. Left groin has some erythema and moist. Assessment and plan Assessment Acute hypoxic respiratory failure secondary to COPD exacerbation, 2L nasal cannula as needed Left lower lobe pneumonia improving based on recent CT scan. Hyponatremia, hypovolemic has improved with gentle hydration Hypomagnesemia from poor oral intake Acute renal injury mostly prerenal improving Chronic kidney disease stage 4 Diabetes Mellitus type 2 with hyperglycemia, A1C 7.3 History DVT Hypertension Hyperlipidemia History lung cancer post left upper lobectomy, right lower wedge resection post immunotherapy Coronary artery disease status post PCI in the past Carotid artery stenosis post stenting History of seizure disorder maintained on keppra Chronic anemia Gastroesophageal reflux disease GI Prophylaxis: DVT Prophylaxis: Maintained on Xarelto Plan Continue oxygen support, wean as tolerated Continue on bronchodilators Continue on empiric antibiotic coverage Patient was started on IV steroids Continue blood glucose monitoring, meal coverage increased today PT/OT consultation Pulmonary is on board. Objective - Vital Signs Vital signs: Vital Signs Temp 97.5 F L 07/12/22 19:57 Pulse 87 07/12/22 19:57 Resp 20 07/12/22 19:57 BP 152/81 07/12/22 19:57 Pulse Ox 96 07/12/22 19:57 FiO2 Intake & Output 07/12/22 07/12/22 07/13/22 06:59 18:59 06:59 Intake Total 822 Balance 822 Weight 82.1 kg Intake: Intake, IV Titration 50 Amount cefTRIAXone 1 gm In 50 Sodium Chloride 0.9% 50 ml @ 100 mls/hr IVPB Q24HR [facility] Rx#:[id number] Oral 772 Other: Voiding Method Toilet # Voids 1 4 # Bowel Movements 0 - Labs CBC & Chem 7: 07/12/22 06:37 07/12/22 06:37 Labs: Abnormal Lab Results - Last 24 Hours (Table) 07/12/22 07/12/22 07/12/22 Range/Units 06:37 06:37 07:06 WBC 13.29 H (4.50-10.00) X 10*3/uL RBC 2.87 L (4.40-5.60) X 10*6/uL Hgb 8.6 L (13.0-17.0) g/dL Hct 26.5 L (39.6-50.0) % RDW 14.9 H (11.5-14.5) % Immature Gran # 0.16 H (0.00-0.04) X 10*3/uL Neutrophils # 12.73 H (1.80-7.70) X 10*3/uL Lymphocytes # 0.21 L (0.90-5.00) X 10*3/uL Monocytes # 0.18 L (0.20-1.00) X 10*3/uL Eosinophils # 0 L (0.04-0.35) X 10*3/uL BUN 62.4 H (9.0-27.0) mg/dL Creatinine 2.3 H (0.6-1.5) mg/dL Est GFR (CKD-EPI)AfAm 31.4 L (60.0-200.0) Est GFR (CKD-EPI)NonAf 27.1 L (60.0-200.0) BUN/Creatinine Ratio 27.37 H (12.00-20.00) Ratio Glucose 138 H (70-110) mg/dL POC Glucose (mg/dL) 141 H (70-110) mg/dL 07/12/22 07/12/22 07/12/22 Range/Units 11:41 16:59 17:16 WBC (4.50-10.00) X 10*3/uL RBC (4.40-5.60) X 10*6/uL Hgb (13.0-17.0) g/dL Hct (39.6-50.0) % RDW (11.5-14.5) % Immature Gran # (0.00-0.04) X 10*3/uL Neutrophils # (1.80-7.70) X 10*3/uL Lymphocytes # (0.90-5.00) X 10*3/uL Monocytes # (0.20-1.00) X 10*3/uL Eosinophils # (0.04-0.35) X 10*3/uL BUN (9.0-27.0) mg/dL Creatinine (0.6-1.5) mg/dL Est GFR (CKD-EPI)AfAm (60.0-200.0) Est GFR (CKD-EPI)NonAf (60.0-200.0) BUN/Creatinine Ratio (12.00-20.00) Ratio Glucose (70-110) mg/dL POC Glucose (mg/dL) 140 H 55 L 51 L (70-110) mg/dL 07/12/22 07/12/22 Range/Units 17:35 20:42 WBC (4.50-10.00) X 10*3/uL RBC (4.40-5.60) X 10*6/uL Hgb (13.0-17.0) g/dL Hct (39.6-50.0) % RDW (11.5-14.5) % Immature Gran # (0.00-0.04) X 10*3/uL Neutrophils # (1.80-7.70) X 10*3/uL Lymphocytes # (0.90-5.00) X 10*3/uL Monocytes # (0.20-1.00) X 10*3/uL Eosinophils # (0.04-0.35) X 10*3/uL BUN (9.0-27.0) mg/dL Creatinine (0.6-1.5) mg/dL Est GFR (CKD-EPI)AfAm (60.0-200.0) Est GFR (CKD-EPI)NonAf (60.0-200.0) BUN/Creatinine Ratio (12.00-20.00) Ratio Glucose (70-110) mg/dL POC Glucose (mg/dL) 61 L 174 H (70-110) mg/dL Microbiology - Last 24 Hours (Table) 07/06/22 14:13 Blood Culture - Final Blood No Growth after 144 hours 07/06/22 14:13 Blood Culture - Final Blood No Growth after 144 hours
[2022-07-13] MEDS: SIMETHICONE 80 MG CHEWABLE PO PRN (00:25)
[2022-07-13] MEDS: LEVOTHYROXINE 25 MCG TAB PO SCH (05:45)
[2022-07-13 07:16] LABS: Glucose,Whole Blood 178 mg/dL (70-110)
[2022-07-13] MEDS: INSULIN ASPART (NovoLOG) 100 UNIT/ML VIAL SQ SCH ×2 (07:31→12:04)
[2022-07-13] MEDS: IPRATROPIUM-ALBUTEROL 3 ML NEB INHALATION SCH ×2 (07:41→12:42)
[2022-07-13] MEDS: MAGNESIUM OXIDE 400 MG TAB PO SCH (10:21)
[2022-07-13] MEDS: METOPROLOL TARTRATE 25 MG TAB PO SCH (10:22)
[2022-07-13] MEDS: levETIRAcetam 500 MG TAB PO SCH (10:22)
[2022-07-13] MEDS: RIVAROXABAN 15 MG TAB PO SCH (10:22)
[2022-07-13] MEDS: FERROUS SULFATE 325 MG TAB PO SCH (10:22)
[2022-07-13] MEDS: allopurinoL 100 MG TAB PO SCH (10:23)
[2022-07-13] MEDS: DOCUSATE 100 MG CAP PO SCH (10:28)
[2022-07-13] MEDS: predniSONE 10 MG TAB PO SCH (10:28)
[2022-07-13 10:40] LABS: Basophils # (A) 0.01 X 10*3/uL (0.00-0.10); Basophils % (A) 0.1 %; Eosinophils # (A) 0 X 10*3/uL (0.04-0.35); Eosinophils % (A) 0 %; HCT 28.6 % (39.6-50.0); HGB 9.2 g/dL (13.0-17.0); Immature Grans, Automated 1.7 %; Lymphocytes # (A) 0.21 X 10*3/uL (0.90-5.00); Lymphocytes % (A) 1.5 %; MCH 29.7 pg (27.0-32.0); MCHC 32.2 g/dL (32.0-37.0); MCV 92.3 fL (80.0-97.0); Mean Platelet Volume 10.5 fL (9.5-12.2); Monocytes # (A) 0.47 X 10*3/uL (0.20-1.00); Monocytes % (A) 3.3 %; NRBC Per 100 WBC 0.1 /100 WBCS (0.0-0.0); Neutrophils # (A) 13.36 X 10*3/uL (1.80-7.70); Neutrophils % (A) 93.4 %; Platelet Count 192 X 10*3/uL (140-440)
[2022-07-13] MEDS: NYSTATIN 100,000UNIT/GM CREAM 30 GM TUBE TOPICAL SCH (10:42)
[2022-07-13 10:49] LABS: African American GFR (CKD) 34.8 (60.0-200.0); Anion Gap 10.5 mmol/L (10.00-18.00); BUN/Creat Ratio 31.2 Ratio (12.00-20.00); Blood Urea Nitrogen 65.2 mg/dL (9.0-27.0); Calcium 8.7 mg/dL (8.7-10.3); Carbon Dioxide 21.7 mmol/L (20.0-27.5); Non-African American GFR(CKD) 30.1 (60.0-200.0); Potassium 5.2 mmol/L (3.5-5.5)
[2022-07-13 11:34] VITALS: BMI 27.1
[2022-07-13 11:58] LABS: Glucose,Whole Blood 118 mg/dL (70-110)
[2022-07-13 13:16] VITALS: BP 164/90; PULSE 93; RESP 16; TEMP 97.8
== END 2022-07-13 15:48 | disposition home health service (06) | DRG 193 ==
LOC: EC 13:08 → 4SSUR 14:54
PROVIDERS: ADMIT Internal Medicine; ATTEND Internal Medicine
DX: J18.9 Pneumonia, unspecified organism (principal); J96.01 Acute respiratory failure with hypoxia; J44.0 Chronic obstructive pulmonary disease with (acute) lower respiratory infection; J44.1 Chronic obstructive pulmonary disease with (acute) exacerbation; J90 Pleural effusion, not elsewhere classified; C34.12 Malignant neoplasm of upper lobe, left bronchus or lung; N17.9 Acute kidney failure, unspecified; E87.1 Hypo-osmolality and hyponatremia; M48.56XA Collapsed vertebra, not elsewhere classified, lumbar region, initial encounter for fracture; N18.4 Chronic kidney disease, stage 4 (severe); C78.01 Secondary malignant neoplasm of right lung; K21.9 Gastro-esophageal reflux disease without esophagitis; K29.70 Gastritis, unspecified, without bleeding; K59.00 Constipation, unspecified; E11.22 Type 2 diabetes mellitus with diabetic chronic kidney disease; E11.65 Type 2 diabetes mellitus with hyperglycemia; I12.9 Hypertensive chronic kidney disease with stage 1 through stage 4 chronic kidney disease, or unspecified chronic kidney disease; D63.1 Anemia in chronic kidney disease; Z87.891 Personal history of nicotine dependence; M50.30 Other cervical disc degeneration, unspecified cervical region; E78.5 Hyperlipidemia, unspecified; G40.909 Epilepsy, unspecified, not intractable, without status epilepticus; I65.29 Occlusion and stenosis of unspecified carotid artery; E83.42 Hypomagnesemia; E86.1 Hypovolemia; I25.10 Atherosclerotic heart disease of native coronary artery without angina pectoris; I25.2 Old myocardial infarction; R36.9 Urethral discharge, unspecified; R91.8 Other nonspecific abnormal finding of lung field; N40.0 Benign prostatic hyperplasia without lower urinary tract symptoms; T38.0X5A Adverse effect of glucocorticoids and synthetic analogues, initial encounter; Z79.01 Long term (current) use of anticoagulants; Z79.4 Long term (current) use of insulin; Z79.82 Long term (current) use of aspirin; Z79.890 Hormone replacement therapy; Z79.899 Other long term (current) drug therapy; Z83.3 Family history of diabetes mellitus; Z85.118 Personal history of other malignant neoplasm of bronchus and lung; Z86.718 Personal history of other venous thrombosis and embolism; Z86.73 Personal history of transient ischemic attack (TIA), and cerebral infarction without residual deficits; Z90.2 Acquired absence of lung [part of]; Z98.61 Coronary angioplasty status; Z83.2 Family history of diseases of the blood and blood-forming organs and certain disorders involving the immune mechanism
CPT/HCPCS: 36415; 71046; 71250; 74176; 80048; 80053; 81001; 83036; 83605; 83735; 83880; 84484; 85025; 85610; 85730; 87040; 87070; 87205; 87491; 87591; 93005; 94640; 94760; 96365; 96375; 99285

== ENCOUNTER → 2022-08-05 | Outpatient (CLI) | payer MEDICARE, OTHER ==
--- NOTE | 2022-08-06 09:46 | PE ---
EXAMINATION TYPE: PET CT fusion skull to thigh DATE OF EXAM: 08/05/2022 CLINICAL INDICATION:Male, 76 years old with history of C34.12 Lung CA; TECHNIQUE: Following the intravenous administration of 11.7 mCi of F-18 FDG, whole body images ar e performed from the skull base to the midthigh. Images are reviewed on the computer in the coronal, axial, and sagittal planes. Reconstructed rotating images are created on independent workstation an d reviewed on the computer. A non-contrast CT is performed in conjunction with the PET scan. Glucos e level 129 mg/dL COMPARISON: CT 07/10/2022, PET/CT 03/10/2022, FINDINGS: Mediastinal SUV mean is 1.4. Hepatic parenchyma SUV mean is 1.7. SKULL BASE AND NECK: No suspicious FDG activity. CHEST, MEDIASTINUM, AND HILAR REGION: * Stable right upper lobe pulmonary nodule measuring up to 13 mm without increased FDG activity. * Left lower lobe pulmonary nodules measuring up to 10 mm without FDG activity. These do appear larg er compared to 03/10/2022. * Right lower lobe pulmonary nodule Max SUV 1.6 measuring 16 mm has increased in size from 03/10/2022. There are 2 smaller adjacent nodules are present measuring up to 9 mm which appears stable in size. * ABDOMEN AND PELVIS: No suspicious FDG activity. OSSEOUS STRUCTURES: No suspicious FDG activity. Persistent mild FDG activity at L3 vertebral body wit h max SUV 2.6 that does extend along the posterior elements on the left including the pedicle and taylor noe. OTHER CT: Small loculated left pleural effusion. There is coronary artery atherosclerosis. Gallbladde r surgically absent. The sclerosis of the arterial vasculature. The prostate gland is enlarged measur ing up to 5.2 cm. IMPRESSION: 1. Right lower lobe pulmonary nodule with mild FDG activity and interval growth since 03/10/2022. Find ings suspicious for neoplastic process. Left lower lobe pulmonary nodules which are subcentimeter and below sensitivity for PET/CT, with that said no increased FDG definitively visualized within these l eft lower lobe nodules. Continued attention on follow-up CT imaging of the left lower lobe nodules. 2. Persistent mild FDG activity within the L3 vertebral body with extension into the left posterior elements. Findings could partially be due to superimposed pathologic fracture. Clinical correlation. 3. Stable right upper lobe pulmonary nodule without suspicious FDG activity.
== END | disposition home or self-care (01) ==
LOC: RADPETMAIN 07:57
PROVIDERS: ATTEND Internal Medicine Hematology & Oncology
DX: C34.12 Malignant neoplasm of upper lobe, left bronchus or lung (principal)
CPT/HCPCS: 78815; A9552

== ENCOUNTER 2022-08-29 13:36 | Inpatient (IN) | payer MEDICARE, OTHER ==
[2022-08-29 13:47] LABS: Glucose,Whole Blood 83 mg/dL (70-110)
--- NOTE | 2022-08-29 14:01 | ED ---
Altered Mental Status HPI - General Source: patient, EMS Mode of arrival: EMS Limitations: no limitations, altered mental status - History of Present Illness MD Complaint: decreased responsiveness -: minutes(s) Consistency of Symptoms: getting worse Context: diabetes <Howie Rodas - Last Filed: 08/29/22 15:26> <Candelario Shirley - Last Filed: 08/29/22 18:30> - General Chief Complaint: Altered Mental Status Stated Complaint: hypoglycemia Time Seen by Provider: 08/29/22 13:42 - History of Present Illness Initial Comments: This patient is 76-year-old man brought by ambulance to have evaluation for altered mental status. The patient was lying in bed where he was found unresponsive by family. They called EMS after he was not responsive following sternal rub. EMS arrived and found patient blood sugar to be approximately 30. They did give 2 amps of dextrose after which patient started becoming more responsive. The patient is answering questions here, denying pain, dyspnea. He states that he does feel cold here. He does not remember anything prior to becoming alert in the ambulance. (Howie Rodas) - Related Data Home Medications Medication Instructions Recorded Confirmed amLODIPine [Norvasc] 10 mg PO HS 07/30/19 08/29/22 Omeprazole 20 mg PO HS 07/06/20 08/29/22 Rivaroxaban [Xarelto] 15 mg PO DAILY 01/12/21 08/29/22 Solifenacin Succinate [Vesicare] 10 mg PO HS 01/12/21 08/29/22 Furosemide [Lasix] 40 mg PO BID 06/03/21 08/29/22 Ipratropium-Albuterol Nebulize 3 ml INHALATION RT-QID 10/14/21 08/29/22 [Duoneb 0.5 mg-3 mg/3 ml Soln] Aspirin [Adult Low Dose Aspirin EC] 81 mg PO HS 02/27/22 08/29/22 Insulin Aspart [NovoLOG Flexpen] See Protocol SQ AC-TID 02/27/22 08/29/22 Levothyroxine Sodium [Synthroid] 25 mcg PO DAILY 06/12/22 08/29/22 allopurinoL [Zyloprim] 100 mg PO DAILY 06/12/22 08/29/22 Ferrous Sulfate [Iron (65 MG 325 mg PO DAILY 07/06/22 08/29/22 Elemental)] Insulin Degludec [Tresiba 12 units SQ HS 07/06/22 08/29/22 Flextouch U-100 Pen] Simvastatin [Zocor] 20 mg PO HS 07/06/22 08/29/22 levETIRAcetam [Keppra] 500 mg PO BID 07/06/22 08/29/22 Albuterol Inhaler [Ventolin Hfa 2 puff INHALATION RT-Q6H PRN 08/29/22 08/29/22 Inhaler] Budesonide/Formoterol Fumarate 2 puff INHALATION RT-BID 08/29/22 08/29/22 [Symbicort 160-4.5 Mcg Inhaler] HYDROcodone/APAP 7.5-325MG [[place] 1 tab PO QID PRN 08/29/22 08/29/22 7.5-325] Tamsulosin [Flomax] 0.4 mg PO DAILY 08/29/22 08/29/22 traZODone HCL [Desyrel] 50 - 100 mg PO HS 08/29/22 08/29/22 Previous Rx's Medication Instructions Recorded Metoprolol Tartrate 25 mg PO BID #60 tab 09/10/19 Allergies Allergy/AdvReac Type Severity Reaction Status Date / Time No Known Allergies Allergy Verified 08/29/22 16:34 Review of Systems ROS Other: All systems not noted in ROS Statement are negative. Constitutional: Reports: weakness. Denies: fever, chills Eyes: Denies: vision change Respiratory: Denies: cough, dyspnea, hemoptysis Cardiovascular: Denies: chest pain, palpitations, syncope Gastrointestinal: Denies: abdominal pain, vomiting, diarrhea Genitourinary: Denies: dysuria, hematuria Musculoskeletal: Denies: back pain Skin: Denies: rash Neurological: Reports: confusion. Denies: headache, weakness <Howie Rodas - Last Filed: 08/29/22 15:26> ROS Other: All systems not noted in ROS Statement are negative. <Candelario Shirley - Last Filed: 08/29/22 18:30> ROS Statement: Those systems with pertinent positive or pertinent negative responses have been documented in the HPI. Past Medical History Past Medical History: Cancer, COPD, CVA/TIA, Diabetes Mellitus, Deep Vein Thrombosis (DVT), GERD/Reflux, Hyperlipidemia, Hypertension, Renal Disease, Seiz ure Disorder, Thyroid Disorder Additional Past Medical History / Comment(s): 07/2018 L lung cancer with left upper lobectomy., R lower lobe cancer in August 2019 and had wedge resection and immunotherapy., bronchitis, TIA and seizure after bronchoscopy in 2017, DVT L leg, IDDM type II, chronic cervical/back pain, BPH, stage III kidney disease, chronic constipation ., dysphagia with wt loss., states spot on spine L-3., states he thinks he has a sore on his INNER THIGH ., hx of carotid stenosis with stent 06/03/2021. Last Myocardial Infarction Date:: 05/24/12 History of Any Multi-Drug Resistant Organisms: None Reported Past Surgical History: Back Surgery, Cholecystectomy, Heart Catheterization, Heart Catheterization With Stent, Hernia Repair, Tonsillectomy Additional Past Surgical History / Comment(s): 2017 Bronchoscopy with bx, 2017 L upper lobectomy at [facility], August 2019 R lower lung wedge resection, low back surgery, umbilical hernia repair, bilateral cataract removals ., right transcarotid artery revasculazation with stent May 2021, COLONOSCOPY Past Anesthesia/Blood Transfusion Reactions: Previous Problems w/ Anesthesia Additional Past Anesthesia/Blood Transfusion Reaction / Comment(s): Seizure and mini stroke following lung biopsy Date of Last Stent Placement:: 06/03/2021-CAROTID STENT Past Psychological History: No Psychological Hx Reported Additional Psychological History / Comment(s): . Smoking Status: Former smoker Past Alcohol Use History: None Reported Additional Past Alcohol Use History / Comment(s): Pt started smoking in 1960 and quit in 1995. He was a 2ppd smoker. Past Drug Use History: None Reported Additional Drug Use History / Comment(s): . - Past Family History Mother Family Medical History: No Reported History Additional Family Medical History / Comment(s): Mother was healthy Father Family Medical History: Diabetes Mellitus, Deep Vein Thrombosis (DVT) Additional Family Medical History / Comment(s): Father of diabetes at the age of 83 yrs. <Howie Rodas - Last Filed: 08/29/22 15:26> General Exam Limitations: no limitations, altered mental status General appearance: alert, in no apparent distress Head exam: Present: atraumatic, normocephalic Eye exam: Present: normal appearance. Absent: scleral icterus, conjunctival injection Neck exam: Present: normal inspection Respiratory exam: Present: normal lung sounds bilaterally, rhonchi. Absent: respiratory distress, wheezes, rales Cardiovascular Exam: Present: regular rate, normal rhythm, normal heart sounds. Absent: systolic murmur, diastolic murmur, rubs, gallop GI/Abdominal exam: Present: soft. Absent: distended, tenderness, guarding, rebound, rigid, mass Extremities exam: Present: normal inspection, normal capillary refill. Absent: pedal edema, calf tenderness Back exam: Present: normal inspection. Absent: CVA tenderness (R), CVA tenderness (L) Neurological exam: Present: alert, CN II-XII intact. Absent: oriented X3 (Patient is oriented to person and aware that he is in the hospital but cannot state the date.), motor sensory deficit Skin exam: Present: warm, dry, intact, normal color. Absent: rash <Howie Rodas - Last Filed: 08/29/22 15:26> Course Vital Signs 08/29/22 08/29/22 08/29/22 13:51 14:02 16:46 Temperature 97.1 F L Pulse Rate 93 88 100 Respiratory 18 16 16 Rate Blood Pressure 135/77 119/70 129/82 O2 Sat by Pulse 93 L 98 100 Oximetry 08/29/22 17:59 Temperature Pulse Rate 100 Respiratory 18 Rate Blood Pressure 129/64 O2 Sat by Pulse 100 Oximetry Medical Decision Making - EKG Data -: EKG Interpreted by Me EKG shows normal: sinus rhythm, axis (Normal), intervals (Normal), QRS complexes (Normal), ST-T waves (Normal) Rate: normal (Rate 88 bpm) Interpretation: normal EKG <Howie Rodas - Last Filed: 08/29/22 15:26> - Lab Data Result diagrams: 08/29/22 15:31 08/29/22 15:31 <Candelario Shirley - Last Filed: 08/29/22 18:30> - Medical Decision Making Patient care sent out to me by previous shift physician, Dr. Landers. Briefly, patient 76-year-old male multiple comorbidities presents to emergency part for recent history of labile blood sugars. Patient is brought in by EMS from home for being found down at home. It initial blood glucose of 30. Patient blood glucose was corrected. Plan at sign out was to follow up with pending labs and imaging studies. Patient's condition allegedly improved after his glucose was corrected. Chest x-ray shows pneumonia. laboratory evaluation shows leukocytosis 21.5. Metabolic panel shows stable findings. Slight lactic acidosis 2.3. Patient reevaluated bedside at 6:30 PM. He is well-appearing. Patient will be admitted to the hospital for inpatient treatment of pneumonia and glucose monitoring. (Candelario Shirley) - Lab Data Lab Results 08/29/22 08/29/22 08/29/22 Range/Units 13:45 14:04 14:23 WBC (3.8-10.6) k/uL RBC (4.30-5.90) m/uL Hgb (13.0-17.5) gm/dL Hct (39.0-53.0) % MCV (80.0-100.0) fL MCH (25.0-35.0) pg MCHC (31.0-37.0) g/dL RDW (11.5-15.5) % Plt Count (150-450) k/uL MPV Neutrophils % % Lymphocytes % % Monocytes % % Eosinophils % % Basophils % % Neutrophils # (1.3-7.7) k/uL Lymphocytes # (1.0-4.8) k/uL Monocytes # (0-1.0) k/uL Eosinophils # (0-0.7) k/uL Basophils # (0-0.2) k/uL Hypochromasia Poikilocytosis Sodium (137-145) mmol/L Potassium (3.5-5.1) mmol/L Chloride (98-107) mmol/L Carbon Dioxide (22-30) mmol/L Anion Gap mmol/L BUN (9-20) mg/dL Creatinine (0.66-1.25) mg/dL Est GFR (CKD-EPI)AfAm (>60 ml/min/1.73 sqM) Est GFR (CKD-EPI)NonAf (>60 ml/min/1.73 sqM) Glucose (74-99) mg/dL POC Glucose (mg/dL) 83 58 L 128 H (70-110) mg/dL POC Glu Manager Clinical Research ID [place], Kadeem Dai Plasma Lactic Acid Nehemias (0.7-2.0) mmol/L Calcium (8.4-10.2) mg/dL Coronavirus (PCR) (Not Detectd) 08/29/22 08/29/22 08/29/22 Range/Units 14:37 15:31 15:31 WBC 21.5 H (3.8-10.6) k/uL RBC 3.71 L (4.30-5.90) m/uL Hgb 10.5 L (13.0-17.5) gm/dL Hct 33.1 L (39.0-53.0) % MCV 89.4 D (80.0-100.0) fL MCH 28.3 (25.0-35.0) pg MCHC 31.7 (31.0-37.0) g/dL RDW 15.6 H (11.5-15.5) % Plt Count 263 (150-450) k/uL MPV 7.5 Neutrophils % 94 % Lymphocytes % 2 % Monocytes % 3 % Eosinophils % 0 % Basophils % 0 % Neutrophils # 20.3 H (1.3-7.7) k/uL Lymphocytes # 0.5 L (1.0-4.8) k/uL Monocytes # 0.6 (0-1.0) k/uL Eosinophils # 0.0 (0-0.7) k/uL Basophils # 0.0 (0-0.2) k/uL Hypochromasia Moderate Poikilocytosis Slight Sodium 138 (137-145) mmol/L Potassium 4.6 (3.5-5.1) mmol/L Chloride 106 (98-107) mmol/L Carbon Dioxide 19 L (22-30) mmol/L Anion Gap 13 mmol/L BUN 56 H (9-20) mg/dL Creatinine 2.25 H (0.66-1.25) mg/dL Est GFR (CKD-EPI)AfAm 32 (>60 ml/min/1.73 sqM) Est GFR (CKD-EPI)NonAf 27 (>60 ml/min/1.73 sqM) Glucose 92 (74-99) mg/dL POC Glucose (mg/dL) 118 H (70-110) mg/dL POC Glu Manager Clinical Research ID [place], Kadeem Plasma Lactic Acid Nehemias (0.7-2.0) mmol/L Calcium 8.1 L (8.4-10.2) mg/dL Coronavirus (PCR) (Not Detectd) 08/29/22 08/29/22 08/29/22 Range/Units 15:36 15:43 16:44 WBC (3.8-10.6) k/uL RBC (4.30-5.90) m/uL Hgb (13.0-17.5) gm/dL Hct (39.0-53.0) % MCV (80.0-100.0) fL MCH (25.0-35.0) pg MCHC (31.0-37.0) g/dL RDW (11.5-15.5) % Plt Count (150-450) k/uL MPV Neutrophils % % Lymphocytes % % Monocytes % % Eosinophils % % Basophils % % Neutrophils # (1.3-7.7) k/uL Lymphocytes # (1.0-4.8) k/uL Monocytes # (0-1.0) k/uL Eosinophils # (0-0.7) k/uL Basophils # (0-0.2) k/uL Hypochromasia Poikilocytosis Sodium (137-145) mmol/L Potassium (3.5-5.1) mmol/L Chloride (98-107) mmol/L Carbon Dioxide (22-30) mmol/L Anion Gap mmol/L BUN (9-20) mg/dL Creatinine (0.66-1.25) mg/dL Est GFR (CKD-EPI)AfAm (>60 ml/min/1.73 sqM) Est GFR (CKD-EPI)NonAf (>60 ml/min/1.73 sqM) Glucose (74-99) mg/dL POC Glucose (mg/dL) 87 94 (70-110) mg/dL POC Glu Manager Clinical Research Wendi Godoy Benjamin Plasma Lactic Acid Nehemias (0.7-2.0) mmol/L Calcium (8.4-10.2) mg/dL Coronavirus (PCR) Not Detected (Not Detectd) 08/29/22 Range/Units 17:24 WBC (3.8-10.6) k/uL RBC (4.30-5.90) m/uL Hgb (13.0-17.5) gm/dL Hct (39.0-53.0) % MCV (80.0-100.0) fL MCH (25.0-35.0) pg MCHC (31.0-37.0) g/dL RDW (11.5-15.5) % Plt Count (150-450) k/uL MPV Neutrophils % % Lymphocytes % % Monocytes % % Eosinophils % % Basophils % % Neutrophils # (1.3-7.7) k/uL Lymphocytes # (1.0-4.8) k/uL Monocytes # (0-1.0) k/uL Eosinophils # (0-0.7) k/uL Basophils # (0-0.2) k/uL Hypochromasia Poikilocytosis Sodium (137-145) mmol/L Potassium (3.5-5.1) mmol/L Chloride (98-107) mmol/L Carbon Dioxide (22-30) mmol/L Anion Gap mmol/L BUN (9-20) mg/dL Creatinine (0.66-1.25) mg/dL Est GFR (CKD-EPI)AfAm (>60 ml/min/1.73 sqM) Est GFR (CKD-EPI)NonAf (>60 ml/min/1.73 sqM) Glucose (74-99) mg/dL POC Glucose (mg/dL) (70-110) mg/dL POC Glu Manager Clinical Research ID Plasma Lactic Acid Nehemias 2.3 H* (0.7-2.0) mmol/L Calcium (8.4-10.2) mg/dL Coronavirus (PCR) (Not Detectd) Disposition <Howie Rodas - Last Filed: 08/29/22 15:26> Decision Time: 18:30 <Candelario Shirley - Last Filed: 08/29/22 18:30> Clinical Impression: Pneumonia, Hypoglycemia Disposition: ADMITTED IP TO THIS HOSP Condition: Serious Referrals: Renzo Boyer MD [Primary Care Provider] - 1-2 days
[2022-08-29 14:09] LABS: Glucose,Whole Blood 58 mg/dL (70-110)
[2022-08-29 14:24] LABS: Glucose,Whole Blood 128 mg/dL (70-110)
[2022-08-29 14:38] LABS: Glucose,Whole Blood 118 mg/dL (70-110)
[2022-08-29 15:38] LABS: Glucose,Whole Blood 87 mg/dL (70-110)
--- NOTE | 2022-08-29 15:47 | XR ---
EXAMINATION TYPE: XR chest 1V portable DATE OF EXAM: 08/29/2022 3:42 PM COMPARISON: Chest radiograph 07/21/2022, PET/CT 08/05/2022. TECHNIQUE: XR chest 1V portable Frontal view of the chest. CLINICAL INDICATION:Male, 76 years old with history of cough; FINDINGS: Patient is rotated which limits evaluation. Lungs/Pleura: Blunting of the left costophrenic angle. No pneumothorax. Patchy left mid and lower latrice g airspace disease. Pulmonary vascularity: Unremarkable. Heart/mediastinum: Cardiomediastinal silhouette is prominent in size. The aorta appears tortuous, a finding usually associated with either atherosclerosis or systemic hypertension. Musculoskeletal: No acute osseous pathology. IMPRESSION: 1. Patchy left mid and lower lung airspace disease concerning for pneumonia. 2. Small left pleural effusion.
[2022-08-29] MEDS ORDERED: DEXTROSE 10% IN WATER 1,000 ML with SODIUM CHLORIDE 2.5MEQ/ML VIAL 153.8 MEQ IV SCH (16:00)
[2022-08-29] MEDS ORDERED: cefTRIAXone IN SWFI 1,000 MG/10 ML SYRINGE IVP STA (16:21)
[2022-08-29] MEDS ORDERED: AZITHROMYCIN 500 MG in SODIUM CHLORIDE 0.9% 250 ML IVPB STA (16:21)
[2022-08-29 16:45] LABS: Glucose,Whole Blood 94 mg/dL (70-110)
[2022-08-29 17:33] LABS: Basophils % (A) 0 %; Eosinophils % (A) 0 %; HCT 33.1 % (39.0-53.0); HGB 10.5 gm/dL (13.0-17.5); Hypochromasia Moderate; Lymphocytes # (A) 0.5 k/uL (1.0-4.8); Lymphocytes % (A) 2 %; MCH 28.3 pg (25.0-35.0); MCHC 31.7 g/dL (31.0-37.0); Mean Platelet Volume 7.5; Monocytes # (A) 0.6 k/uL (0-1.0); Monocytes % (A) 3 %; Neutrophils # (A) 20.3 k/uL (1.3-7.7); Neutrophils % (A) 94 %; Platelet Count 263 k/uL (150-450); Poikilocytosis Slight; RBC 3.71 m/uL (4.30-5.90); RDW 15.6 % (11.5-15.5); WBC 21.5 k/uL (3.8-10.6)
[2022-08-29 17:44] LABS: MCV 89.4 fL (80.0-100.0)
[2022-08-29 18:18] LABS: Calcium 8.1 mg/dL (8.4-10.2); Potassium 4.6 mmol/L (3.5-5.1)
[2022-08-29] MEDS ORDERED: NALOXONE 0.4 MG/ML 1 ML VIAL IV PRN (18:27)
[2022-08-29 19:16] LABS: Glucose,Whole Blood 115 mg/dL (70-110)
[2022-08-29] MEDS: SODIUM CHLORIDE 0.9% 1,000 ML IV SCH (22:05)
--- NOTE | 2022-08-29 23:58 | P.HPIM ---
History of Present Illness H&P Date: 08/29/22 The patient is a 76-year-old male with an extensive PMH including history of DVT on Xarelto, chronic kidney disease, type II DM, hypertension, hyperlipidemia, COPD, hypothyroidism who was brought into the emergency room for unresponsiveness. The patient was reportedly found unresponsive by his family who subsequent activated EMS upon arrival found the patient to have a blood glucose of 30. 2 ampules of IV push dextrose were administered with subsequent improvement in his mental status. The patient also states that over the past 2 days, he has been feeling somewhat under the weather and has been having a nonproductive cough with chills. He reports compliance with his insulin admi nistration at home despite having a somewhat decreased oral intake. Chest x-ray in the emergency room revealed left mid and lower lung suspected pneumonia with small left pleural effusion. EKG reveals sinus rhythm at 88 bpm. Laboratory evaluation was remarkable for leukocytosis at 21.5, hemoglobin 10.5, BUN 56, creatinine 2.25, and lactic acid 2.3. The patient was also noted to be hypoxic in the emergency room with SpO2 93% on room air. Review of systems: Pertinent positives and negatives as discussed in HPI, a complete review of systems was performed and all other systems are negative. Physical examination: General: non toxic, no distress, appears at stated age, normal weight Derm: no unusual rashes/lesions, warm Head: atraumatic, normocephalic, symmetric Eyes: EOMI, no lid lag, anicteric sclera, pupils equal round reactive to light ENT: Nose and ears atraumatic Neck: No cervical lymphadenopathy, trachea midline, supple Mouth: no lip lesion, mucus membranes moist Cardiovascular: S1S2 reg, no murmur, positive dorsalis pedis pulse bilateral, no edema Lungs: Scattered rhonchi, no wheezing, no accessory muscle use Abdominal: soft, nontender to palpation, no guarding Ext: muscle strength 5 out of 5 in all 4 extremities grossly, no gross muscle atrophy, no contractures, Neuro: CN II-XI grossly intact, no gross focal neuro deficits Psych: Alert, oriented, appropriate affect Assessment/plan Severe sepsis secondary to community acquired pneumonia -Continue with azithromycin and ceftriaxone -Follow up blood cultures Hypoglycemia, suspect secondary to poor oral intake in setting of ongoing illness -Continue D5-NS -Monitor blood glucose levels -Hold home insulin at this time and resume in am Lactic acidosis -Monitor for resolution -IV fluids Chronic conditions: History of DVT,chronic kidney disease, hypertension, hyperlipidemia, COPD, hypothyroidism -Continue with home meds DVT prophylaxis -Xarelto The patient is admitted with an anticipated greater than 2 midnight stay for evaluation of sepsis. CODE STATUS: Full Code Discussed with: Patient Anticipated discharge date: [] Anticipated discharge place: Home Past Medical History Past Medical History: Cancer, COPD, CVA/TIA, Diabetes Mellitus, Deep Vein T hrombosis (DVT), GERD/Reflux, Hyperlipidemia, Hypertension, Renal Disease, Seizure Disorder, Thyroid Disorder Additional Past Medical History / Comment(s): 07/2018 L lung cancer with left upper lobectomy., R lower lobe cancer in August 2019 and had wedge resection and immunotherapy., bronchitis, TIA and seizure after bronchoscopy in 2017, DVT L leg, IDDM type II, chronic cervical/back pain, BPH, stage III kidney disease, chronic constipation ., dysphagia with wt loss., states spot on spine L-3., states he thinks he has a sore on his INNER THIGH ., hx of carotid steno sis with stent 06/03/2021. Last Myocardial Infarction Date:: 05/24/12 History of Any Multi-Drug Resistant Organisms: None Reported Past Surgical History: Back Surgery, Cholecystectomy, Heart Catheterization, Heart Catheterization With Stent, Hernia Repair, Tonsillectomy Additional Past Surgical History / Comment(s): 2018 Bronchoscopy with bx, 2017 L upper lobectomy at [facility], August 2019 R lower lung wedge resection, low back surgery, umbilical hernia repair, bilateral cataract removals ., right tr anscarotid artery revasculazation with stent May 2021, COLONOSCOPY Past Anesthesia/Blood Transfusion Reactions: Previous Problems w/ Anesthesia Additional Past Anesthesia/Blood Transfusion Reaction / Comment(s): Seizure and mini stroke following lung biopsy Date of Last Stent Placement:: 06/03/2021-CAROTID STENT Past Psychological History: No Psychological Hx Reported Additional Psychological History / Comment(s): . Smoking Status: Former smoker Past Alcohol Use History: None Reported Additional Past Alcohol Use History / Comment(s): Pt started smoking in 1960 and quit in 1995. He was a 2ppd smoker. Past Drug Use History: None Reported Additional Drug Use History / Comment(s): . - Past Family History Mother Family Medical History: No Reported History Additional Family Medical History / Comment(s): Mother was healthy Father Family Medical History: Diabetes Mellitus, Deep Vein Thrombosis (DVT) Additional Family Medical History / Comment(s): Father of diabetes at the age of 83 yrs. Medications and Allergies Home Medications Medication Instructions Recorded Confirmed Type amLODIPine [Norvasc] 10 mg PO HS 07/30/19 08/29/22 History Metoprolol Tartrate 25 mg PO BID #60 tab 09/10/19 08/29/22 Rx Omeprazole 20 mg PO HS 07/06/20 08/29/22 History Rivaroxaban [Xarelto] 15 mg PO DAILY 01/12/21 08/29/22 History Solifenacin Succinate [Vesicare] 10 mg PO HS 01/12/21 08/29/22 History Furosemide [Lasix] 40 mg PO BID 06/03/21 08/29/22 History Ipratropium-Albuterol Nebulize 3 ml INHALATION RT-QID 10/14/21 08/29/22 History [Duoneb 0.5 mg-3 mg/3 ml Soln] Aspirin [Adult Low Dose Aspirin EC] 81 mg PO HS 02/27/22 08/29/22 History Insulin Aspart [NovoLOG Flexpen] See Protocol SQ AC-TID 02/27/22 08/29/22 History Levothyroxine Sodium [Synthroid] 25 mcg PO DAILY 06/12/22 08/29/22 History allopurinoL [Zyloprim] 100 mg PO DAILY 06/12/22 08/29/22 History Ferrous Sulfate [Iron (65 MG 325 mg PO DAILY 07/06/22 08/29/22 History Elemental)] Insulin Degludec [Tresiba 12 units SQ HS 07/06/22 08/29/22 History Flextouch U-100 Pen] Simvastatin [Zocor] 20 mg PO HS 07/06/22 08/29/22 History levETIRAcetam [Keppra] 500 mg PO BID 07/06/22 08/29/22 History Albuterol Inhaler [Ventolin Hfa 2 puff INHALATION RT-Q6H PRN 08/29/22 08/29/22 History Inhaler] Budesonide/Formoterol Fumarate 2 puff INHALATION RT-BID 08/29/22 08/29/22 History [Symbicort 160-4.5 Mcg Inhaler] HYDROcodone/APAP 7.5-325MG [[place] 1 tab PO QID PRN 08/29/22 08/29/22 History 7.5-325] Tamsulosin [Flomax] 0.4 mg PO DAILY 08/29/22 08/29/22 History traZODone HCL [Desyrel] 50 - 100 mg PO HS 08/29/22 08/29/22 History Allergies Allergy/AdvReac Type Severity Reaction Status Date / Time No Known Allergies Allergy Verified 08/29/22 16:34 Physical Exam Vitals: Vital Signs Temp Pulse Resp BP Pulse Ox 08/29/22 23:44 98 14 98/73 97 08/29/22 19:10 95 16 112/54 98 08/29/22 17:59 100 18 129/64 100 08/29/22 16:46 100 16 129/82 100 08/29/22 14:02 88 16 119/70 98 08/29/22 13:51 97.1 F L 93 18 135/77 93 L Intake and Output 08/29/22 08/29/22 08/30/22 14:59 22:59 06:59 Other: Weight 79.379 kg Results CBC & Chem 7: 08/29/22 15:31 08/29/22 15:31 Labs: Abnormal Lab Results - Last 24 Hours (Table) 08/29/22 08/29/22 08/29/22 Range/Units 14:04 14:23 14:37 WBC (3.8-10.6) k/uL RBC (4.30-5.90) m/uL Hgb (13.0-17.5) gm/dL Hct (39.0-53.0) % RDW (11.5-15.5) % Neutrophils # (1.3-7.7) k/uL Lymphocytes # (1.0-4.8) k/uL Carbon Dioxide (22-30) mmol/L BUN (9-20) mg/dL Creatinine (0.66-1.25) mg/dL POC Glucose (mg/dL) 58 L 128 H 118 H (70-110) mg/dL Plasma Lactic Acid Nehemias (0.7-2.0) mmol/L Calcium (8.4-10.2) mg/dL 08/29/22 08/29/22 08/29/22 Range/Units 15:31 15:31 17:24 WBC 21.5 H (3.8-10.6) k/uL RBC 3.71 L (4.30-5.90) m/uL Hgb 10.5 L (13.0-17.5) gm/dL Hct 33.1 L (39.0-53.0) % RDW 15.6 H (11.5-15.5) % Neutrophils # 20.3 H (1.3-7.7) k/uL Lymphocytes # 0.5 L (1.0-4.8) k/uL Carbon Dioxide 19 L (22-30) mmol/L BUN 56 H (9-20) mg/dL Creatinine 2.25 H (0.66-1.25) mg/dL POC Glucose (mg/dL) (70-110) mg/dL Plasma Lactic Acid Nehemias 2.3 H* (0.7-2.0) mmol/L Calcium 8.1 L (8.4-10.2) mg/dL 08/29/22 Range/Units 19:14 WBC (3.8-10.6) k/uL RBC (4.30-5.90) m/uL Hgb (13.0-17.5) gm/dL Hct (39.0-53.0) % RDW (11.5-15.5) % Neutrophils # (1.3-7.7) k/uL Lymphocytes # (1.0-4.8) k/uL Carbon Dioxide (22-30) mmol/L BUN (9-20) mg/dL Creatinine (0.66-1.25) mg/dL POC Glucose (mg/dL) 115 H (70-110) mg/dL Plasma Lactic Acid Nehemias (0.7-2.0) mmol/L Calcium (8.4-10.2) mg/dL
[2022-08-30 01:59] LABS: Glucose,Whole Blood 242 mg/dL (70-110)
[2022-08-30] MEDS ORDERED: DEXTROSE 10% IN WATER 1,000 ML with SODIUM CHLORIDE 4MEQ/ML VIAL 153.8 MEQ IV SCH (02:00)
[2022-08-30] MEDS ORDERED: DEXTROSE 5%-0.9% NACL 1,000 ML IV SCH (02:00)
[2022-08-30] MEDS: LEVOTHYROXINE 25 MCG TAB PO SCH (06:40)
[2022-08-30] MEDS: RIVAROXABAN 15 MG TAB PO SCH (08:27)
[2022-08-30] MEDS: AZITHROMYCIN 250 MG TAB PO SCH (08:27)
[2022-08-30] MEDS: METOPROLOL TARTRATE 25 MG TAB PO SCH ×2 (08:27→20:11)
[2022-08-30] MEDS: FUROSEMIDE 40 MG TAB PO SCH ×2 (08:27→16:19)
[2022-08-30] MEDS: levETIRAcetam 500 MG TAB PO SCH ×2 (08:27→20:11)
[2022-08-30] MEDS: FERROUS SULFATE 325 MG TAB PO SCH (08:27)
[2022-08-30] MEDS: allopurinoL 100 MG TAB PO SCH (08:27)
[2022-08-30] MEDS: TAMSULOSIN 0.4 MG CAP.ER.24H PO SCH (08:27)
[2022-08-30] MEDS: SYMBICORT 160-4.5 MCG INHALER INHALATION SCH ×2 (08:41→20:10)
[2022-08-30] MEDS: IPRATROPIUM-ALBUTEROL 3 ML NEB INHALATION SCH ×3 (11:29→20:07)
[2022-08-30] MEDS ORDERED: ALBUTEROL NEBULIZED 2.5 MG/3 ML INHALATION PRN (11:51)
[2022-08-30] MEDS ORDERED: DEXTROSE 50% SYRINGE 50 ML IVP PRN ×2 (11:52)
--- NOTE | 2022-08-30 11:56 | P.PN ---
Subjective Progress Note Date: 08/30/22 Principal diagnosis: Unresponsiveness Hospital Course: 76-year-old male with an extensive PMH including history of DVT on Xarelto, chronic kidney disease, type II DM, hypertension, hyperlipidemia, COPD, hypothyroidism who was brought into the emergency room for unresponsiveness. His fontanelle hypoglycemic, mental status improved with IV dextrose. Also fou nd to have left mid and lower lung pneumonia. Currently on IV antibiotics. Subjective: Patient seen and examined at bedside. No acute events overnight. He claims that he has minor shortness of breath, but denies any chest pain, abdominal pain, urinary or bowel complaints. Pertinent positives and negatives as discussed above, a complete review of systems was performed and all other systems are negative. Vitals Signs Reviewed. General: nontoxic, no distress, appears at stated age Derm: warm, dry Head: atraumatic, normocephalic, symmetric Eyes: EOMI, no lid lag, anicteric sclera Mouth: no lip lesion, mucus membranes moist Cardiovascular: S1S2 reg, no murmur Lungs: CTA bilateral, no rhonchi, no rales , no accessory muscle use, 2 L oxygen Abdominal: soft, nontender to palpation, no guarding, no appreciable organomegaly Ext: no gross muscle atrophy, trace peripheral edema, no contractures Neuro: CN II-XI grossly intact, no focal neuro deficits Psych: Alert, oriented, appropriate affect Assessment and Plan: Severe sepsis secondary to community acquired pneumonia -Continue to wean oxygen -Continue with azithromycin and ceftriaxone -Blood cultures pending Acute encephalopathy - resolved Hypoglycemia, suspect secondary to poor oral intake in setting of ongoing illness -Discontinue D5 normal saline -Monitor blood glucose levels -Restart insulin Lactic acidosis -Resolved Chronic conditions: History of DVT,chronic kidney disease, hypertension, hyperlipidemia, COPD, hypothyroidism -Continue with home meds DVT prophylaxis -Xarelto Full code Discharge date: 09/[address]: Likely home, PT evaluation. Objective - Vital Signs Vital signs: Vital Signs Temp 98.2 F 08/30/22 08:00 Pulse 86 08/30/22 11:39 Resp 24 08/30/22 08:00 BP 100/66 08/30/22 08:00 Pulse Ox 99 08/30/22 08:43 FiO2 Intake & Output 08/29/22 08/30/22 08/30/22 18:59 06:59 18:59 Weight 79.379 kg - Labs CBC & Chem 7: 08/29/22 15:31 08/29/22 15:31 Labs: Abnormal Lab Results - Last 24 Hours (Table) 08/29/22 08/29/22 08/29/22 Range/Units 14:04 14:23 14:37 WBC (3.8-10.6) k/uL RBC (4.30-5.90) m/uL Hgb (13.0-17.5) gm/dL Hct (39.0-53.0) % RDW (11.5-15.5) % Neutrophils # (1.3-7.7) k/uL Lymphocytes # (1.0-4.8) k/uL Carbon Dioxide (22-30) mmol/L BUN (9-20) mg/dL Creatinine (0.66-1.25) mg/dL POC Glucose (mg/dL) 58 L 128 H 118 H (70-110) mg/dL Plasma Lactic Acid Nehemias (0.7-2.0) mmol/L Calcium (8.4-10.2) mg/dL 08/29/22 08/29/22 08/29/22 Range/Units 15:31 15:31 17:24 WBC 21.5 H (3.8-10.6) k/uL RBC 3.71 L (4.30-5.90) m/uL Hgb 10.5 L (13.0-17.5) gm/dL Hct 33.1 L (39.0-53.0) % RDW 15.6 H (11.5-15.5) % Neutrophils # 20.3 H (1.3-7.7) k/uL Lymphocytes # 0.5 L (1.0-4.8) k/uL Carbon Dioxide 19 L (22-30) mmol/L BUN 56 H (9-20) mg/dL Creatinine 2.25 H (0.66-1.25) mg/dL POC Glucose (mg/dL) (70-110) mg/dL Plasma Lactic Acid Nehemias 2.3 H* (0.7-2.0) mmol/L Calcium 8.1 L (8.4-10.2) mg/dL 08/29/22 08/30/22 Range/Units 19:14 01:58 WBC (3.8-10.6) k/uL RBC (4.30-5.90) m/uL Hgb (13.0-17.5) gm/dL Hct (39.0-53.0) % RDW (11.5-15.5) % Neutrophils # (1.3-7.7) k/uL Lymphocytes # (1.0-4.8) k/uL Carbon Dioxide (22-30) mmol/L BUN (9-20) mg/dL Creatinine (0.66-1.25) mg/dL POC Glucose (mg/dL) 115 H 242 H (70-110) mg/dL Plasma Lactic Acid Nehemias (0.7-2.0) mmol/L Calcium (8.4-10.2) mg/dL
[2022-08-30 12:21] LABS: Glucose,Whole Blood 352 mg/dL (70-110)
[2022-08-30] MEDS: INSULIN ASPART (NovoLOG) 100 UNIT/ML VIAL SQ SCH ×3 (13:15→20:24)
[2022-08-30 13:22] LABS: Appearance,Urine Clear (Clear); Bacteria,Urine Rare /hpf; Bilirubin,Urine Negative (Negative); Blood,Urine Negative (Negative); Color,Urine Yellow; Glucose,Urine (UA) 3+ (Negative); Ketones,Urine Negative (Negative); Leukocyte Esterase,Urine Small (Negative); Mucus,Urine Rare /hpf; Nitrite,Urine Negative (Negative); Protein,Urine Trace (Negative); Specific Gravity,Urine 1.013 (1.001-1.035); Squamous Epithelial Cell,Urine <1 /hpf (0-4); Urobilinogen,Urine <2.0 mg/dL (<2.0); WBC,Urine 1 /hpf (0-5)
--- NOTE | 2022-08-30 15:08 | P.CNPUL ---
History of Present Illness Consult date: 08/30/22 Requesting physician: Regina Barrientos Reason for consult: dyspnea, cough, COPD, hypoxemia, pneumonia, abnormal CXR/CT Chief complaint: Shortness of breath, cough, fever/chills. History of present illness: Pulmonary consult dated 08/30/2022. 76-year-old male brought into the emergency room, on August 29, to be evaluated for mental status changes. He apparently was found in his bed, unresponsive, by his family. EMS was called, after he did not respond to a sternal rub. Apparently EMS arrived, and found the patient's blood sugar to be approximately 30. He did received 2 ampules of dextrose, and the patient became more responsive. The patient is seen in the emergency room, room 1, and states that he's been having shortness of breath, fever, and chills, as well as cough. Currently, he is getting 2 L of oxygen, and D5 with saline, at 100 mL an hour. The patient has an extensive history of lung cancer, COPD, CVA, diabetes, DVT, GERD, hyperlipidemia, hypertension, and seizure disorder, among other things. White count 21.5, hemoglobin 10.5, hematocrit 33.1, platelet count 263,000. Sodium 138, potassium 4.6, chlorides 106, CO2 19, anion gap 13, BUN 56, and creatinine 2.25. Testing for coronavirus was negative. Chest x-ray shows a left-sided infiltrate. Review of Systems REVIEW OF SYSTEMS: CONSTITUTIONAL: Fever and chills. NEUROLOGIC: Acute mental status changes, likely secondary to hypoglycemia. HEENT: [ Negative.] CARDIAC: [Negative.] PULMONARY: Shortness of breath, and cough. GI: [Negative.] : [Negative.] RHEUMATOLOGIC: [ Negative.] IMMUNOLOGIC: [ Negative.] ENDOCRINE: [Negative. ] DERMATOLOGIC: [Negative.] Past Medical History Past Medical History: Cancer, COPD, CVA/TIA, Diabetes Mellitus, Deep Vein Thrombosis (DVT), GERD/Reflux, Hyperlipidemia, Hypertension, Renal Disease, Se izure Disorder, Thyroid Disorder Additional Past Medical History / Comment(s): 07/2018 L lung cancer with left upper lobectomy., R lower lobe cancer in August 2019 and had wedge resection and immunotherapy., bronchitis, TIA and seizure after bronchoscopy in 2017, DVT L leg, IDDM type II, chronic cervical/back pain, BPH, stage III kidney disease, chronic constipation ., dysphagia with wt loss., states spot on spine L-3., states he thinks he has a sore on his INNER THIGH ., hx of carotid stenosis with stent 06/03/2021. Last Myocardial Infarction Date:: 05/24/12 History of Any Multi-Drug Resistant Organisms: None Reported Past Surgical History: Back Surgery, Cholecystectomy, Heart Catheterization, Heart Catheterization With Stent, Hernia Repair, Tonsillectomy Additional Past Surgical History / Comment(s): 2018 Bronchoscopy with bx, 2017 L upper lobectomy at [facility], August 2019 R lower lung wedge resection, low back surgery, umbilical hernia repair, bilateral cataract removals ., right transcarotid artery revasculazation with stent May 2021, COLONOSCOPY Past Anesthesia/Blood Transfusion Reactions: Previous Problems w/ Anesthesia Additional Past Anesthesia/Blood Transfusion Reaction / Comment(s): Seizure and mini stroke following lung biopsy Date of Last Stent Placement:: 06/03/2021-CAROTID STENT Past Psychological History: No Psychological Hx Reported Additional Psychological History / Comment(s): . Smoking Status: Former smoker Past Alcohol Use History: None Reported Additional Past Alcohol Use History / Comment(s): Pt started smoking in 1960 and quit in 1995. He was a 2ppd smoker. Past Drug Use History: None Reported Additional Drug Use History / Comment(s): . - Past Family History Mother Family Medical History: No Reported History Additional Family Medical History / Comment(s): Mother was healthy Father Family Medical History: Diabetes Mellitus, Deep Vein Thrombosis (DVT) Additional Family Medical History / Comment(s): Father of diabetes at the age of 83 yrs. Medications and Allergies Home Medications Medication Instructions Recorded Confirmed Type amLODIPine [Norvasc] 10 mg PO HS 07/30/19 08/29/22 History Metoprolol Tartrate 25 mg PO BID #60 tab 09/10/19 08/29/22 Rx Omeprazole 20 mg PO HS 07/06/20 08/29/22 History Rivaroxaban [Xarelto] 15 mg PO DAILY 01/12/21 08/29/22 History Solifenacin Succinate [Vesicare] 10 mg PO HS 01/12/21 08/29/22 History Furosemide [Lasix] 40 mg PO BID 06/03/21 08/29/22 History Ipratropium-Albuterol Nebulize 3 ml INHALATION RT-QID 10/14/21 08/29/22 History [Duoneb 0.5 mg-3 mg/3 ml Soln] Aspirin [Adult Low Dose Aspirin EC] 81 mg PO HS 02/27/22 08/29/22 History Insulin Aspart [NovoLOG Flexpen] See Protocol SQ AC-TID 02/27/22 08/29/22 History Levothyroxine Sodium [Synthroid] 25 mcg PO DAILY 06/12/22 08/29/22 History allopurinoL [Zyloprim] 100 mg PO DAILY 06/12/22 08/29/22 History Ferrous Sulfate [Iron (65 MG 325 mg PO DAILY 07/06/22 08/29/22 History Elemental)] Insulin Degludec [Tresiba 12 units SQ HS 07/06/22 08/29/22 History Flextouch U-100 Pen] Simvastatin [Zocor] 20 mg PO HS 07/06/22 08/29/22 History levETIRAcetam [Keppra] 500 mg PO BID 07/06/22 08/29/22 History Albuterol Inhaler [Ventolin Hfa 2 puff INHALATION RT-Q6H PRN 08/29/22 08/29/22 History Inhaler] Budesonide/Formoterol Fumarate 2 puff INHALATION RT-BID 08/29/22 08/29/22 History [Symbicort 160-4.5 Mcg Inhaler] HYDROcodone/APAP 7.5-325MG [[place] 1 tab PO QID PRN 08/29/22 08/29/22 History 7.5-325] Tamsulosin [Flomax] 0.4 mg PO DAILY 08/29/22 08/29/22 History traZODone HCL [Desyrel] 50 - 100 mg PO HS 08/29/22 08/29/22 History Allergies Allergy/AdvReac Type Severity Reaction Status Date / Time No Known Allergies Allergy Verified 08/29/22 16:34 Physical Exam Osteopathic Statement: *. No significant issues noted on an osteopathic structural exam other than those noted in the History and Physical/Consult. Vitals: Vital Signs Temp Pulse Resp BP Pulse Ox 08/30/22 12:25 85 22 126/69 99 08/30/22 11:39 86 08/30/22 11:30 86 08/30/22 08:43 99 08/30/22 08:00 98.2 F 98 24 100/66 99 08/30/22 05:50 89 14 109/55 98 08/30/22 04:34 102 H 16 98 08/30/22 02:06 100 14 123/83 98 08/29/22 23:44 98 14 98/73 97 08/29/22 19:10 95 16 112/54 98 08/29/22 17:59 100 18 129/64 100 08/29/22 16:46 100 16 129/82 100 No acute distress, oriented 3. Currently on 2 L. No audible wheezing, or use of accessory muscles. HEENT examination is grossly unremarkable. Neck supple. Full range of motion. No adenopathy thyromegaly or neck vein distention. Cardiovascular examination reveals regular rhythm rate. S1-S2 normal. No S3 or S4. No discernible murmur noted. Heart rate 85 bpm. Lungs reveal scattered bilateral rhonchi. No wheezes. No crackles. Breath sounds are equal bilaterally. Saturation is 99% on 2 L. Abdomen soft bowel sounds are heard. No masses or tenderness. Extremities are intact. No cyanosis clubbing or edema. Skin is without rash or lesion. Neurologic examination is brief but nonfocal. Results - Laboratory Findings CBC and BMP: 08/29/22 15:31 08/29/22 15:31 Abnormal lab findings: Abnormal Labs 08/29/22 08/29/22 08/29/22 14:04 14:23 14:37 WBC RBC Hgb Hct RDW Neutrophils # Lymphocytes # Carbon Dioxide BUN Creatinine POC Glucose (mg/dL) 58 L 128 H 118 H Plasma Lactic Acid Nehemias Calcium Urine Protein Urine Glucose (UA) Ur Leukocyte Esterase Urine Bacteria Urine Mucus 08/29/22 08/29/22 08/29/22 15:31 15:31 17:24 WBC 21.5 H RBC 3.71 L Hgb 10.5 L Hct 33.1 L RDW 15.6 H Neutrophils # 20.3 H Lymphocytes # 0.5 L Carbon Dioxide 19 L BUN 56 H Creatinine 2.25 H POC Glucose (mg/dL) Plasma Lactic Acid Nehemias 2.3 H* Calcium 8.1 L Urine Protein Urine Glucose (UA) Ur Leukocyte Esterase Urine Bacteria Urine Mucus 10/08/30/22 08/30/22 19:14 01:58 12:20 WBC RBC Hgb Hct RDW Neutrophils # Lymphocytes # Carbon Dioxide BUN Creatinine POC Glucose (mg/dL) 115 H 242 H 352 H Plasma Lactic Acid Nehemias Calcium Urine Protein Urine Glucose (UA) Ur Leukocyte Esterase Urine Bacteria Urine Mucus 08/30/22 13:05 WBC RBC Hgb Hct RDW Neutrophils # Lymphocytes # Carbon Dioxide BUN Creatinine POC Glucose (mg/dL) Plasma Lactic Acid Nehemias Calcium Urine Protein Trace H Urine Glucose (UA) 3+ H Ur Leukocyte Esterase Small H Urine Bacteria Rare H Urine Mucus Rare H - Diagnostic Findings Chest x-ray: image reviewed Assessment and Plan Assessment: Severe hypoglycemia, with mental status changes, resolved. Incidental finding of possible pneumonia, left lung, in a patient with severe COPD. History of CVA. History of diabetes mellitus. History of deep venous thrombosis. History of left upper lobectomy, 2018, and right lower lobe wedge resection, 2019, for non-small cell lung cancer. History of seizure disorder. History of hypertension. History of hyperlipidemia. History of gastroesophageal reflux disease. History of heart catheterization with stent placement. Multiple other medical problems and comorbidities. Plan: Plan dated 08/30/2022. The patient is currently on Zithromax, and Rocephin. In addition, he is on Symbicort 160/4.5, 2 puffs twice a day. Also, the patient is on albuterol sulfate and ipratropium bromide breathing treatments, 4 times a day and when necessary. We don't feel the patient needs corticosteroids at this time. He continues on all his other usual medications. A pro-calcitonin level was ordered. Additional recommendations and suggestions are forthcoming. Prognosis is certainly guarded. Time with Patient: Greater than 30
--- NOTE | 2022-08-30 15:50 | CDI ---
Documentation Clarification Form Date: 08/30/2022 03:36:26 PM From: Josette Barrios RN, CCDS Email: [email or web address] Admit Date: 08/29/2022 06:27:00 PM Patient Name: Isrrael Torres Visit Number: [id number] Discharge Date: ATTENTION: The Clinical Documentation Specialists (CDI) and [facility] Coding Staff appreciate your assistance in clarifying documentation. Please respond to the clarification below the line at the bottom and electronically sign. The CDI & [facility] Coding staff will review the response and follow-up if needed. Please note: Queries are made part of the Legal Health Record. If you have any questions, please contact the author of this message via ITS. Dr. Todd Smith Acute Encephalopathy is documented in the 08/30 progress note. Additional clarification regarding the type of encephalopathy is requested. History/Risk Factors: Cancer, COPD, CVA/TIA, Diabetes Mellitus, Deep Vein Thrombosis (DVT), GERD/Reflux, Hyperlipidemia, Hypertension, Renal Disease, Seizure Disorder, Thyroid Disorder. Was brought into the emergency room for unresponsiveness Clinical Indicators: ED: "The patient was lying in bed where he was found unresponsive by family. They called EMS after he was not responsive following sternal rub. EMS arrived and found patient blood sugar to be approximately 30. He does not remember anything prior to becoming alert in the ambulance." 08/30 IM: "Acute encephalopathy - resolved. Hypoglycemia, suspect secondary to poor oral intake in setting of ongoing illness. Severe sepsis secondary to community acquired pneumonia." 08/29 Labs: WBC 21.5, glucose 58, lactic acid 2.3, Cr 2.25 Treatment: IV D5 normal saline. Monitor blood glucose levels. Restart insulin. IV Azithromycin and Ceftriaxone. Pulmonary Consult: "Severe hypoglycemia, with mental status changes, resolved." Please clarify the type of encephalopathy, if known: [x ] Metabolic Encephalopathy [ ] Other, please specify [ ] Unable to determine MTDD
[2022-08-30 17:23] LABS: Glucose,Whole Blood 204 mg/dL (70-110)
[2022-08-30] MEDS: INSULIN DETEMIR (LEVEMIR) 100 UNIT/ML SYR SQ SCH (20:11)
[2022-08-30] MEDS: ATORVASTATIN 10 MG TAB PO SCH (20:11)
[2022-08-30] MEDS: PANTOPRAZOLE 40 MG TABLET PO SCH (20:11)
[2022-08-30] MEDS: ASPIRIN 81 MG PO SCH (20:11)
[2022-08-30] MEDS: amLODIPine 10 MG TAB PO SCH (20:11)
[2022-08-30] MEDS: SODIUM CHLORIDE 0.9% 1,000 ML IV SCH (20:12)
[2022-08-30 20:25] LABS: Glucose,Whole Blood 138 mg/dL (70-110)
[2022-08-31] MEDS: IPRATROPIUM-ALBUTEROL 3 ML NEB INHALATION SCH ×5 (01:57→19:55)
[2022-08-31] MEDS: VANCOMYCIN 125 MG CAPSULE PO SCH ×5 (02:06→20:31)
[2022-08-31 05:41] LABS: Glucose,Whole Blood 107 mg/dL (70-110)
[2022-08-31] MEDS: LEVOTHYROXINE 25 MCG TAB PO SCH (06:37)
[2022-08-31 06:42] LABS: Glucose,Whole Blood 135 mg/dL (70-110)
[2022-08-31] MEDS: INSULIN ASPART (NovoLOG) 100 UNIT/ML VIAL SQ SCH ×4 (06:42→20:40)
[2022-08-31] MEDS: SYMBICORT 160-4.5 MCG INHALER INHALATION SCH ×2 (07:45→19:55)
[2022-08-31] MEDS: allopurinoL 100 MG TAB PO SCH (08:24)
[2022-08-31] MEDS: FERROUS SULFATE 325 MG TAB PO SCH (08:24)
[2022-08-31] MEDS: METOPROLOL TARTRATE 25 MG TAB PO SCH ×2 (08:24→20:27)
[2022-08-31] MEDS: levETIRAcetam 500 MG TAB PO SCH ×2 (08:24→20:28)
[2022-08-31] MEDS: TAMSULOSIN 0.4 MG CAP.ER.24H PO SCH (08:25)
[2022-08-31] MEDS: FUROSEMIDE 40 MG TAB PO SCH ×2 (08:25→17:44)
[2022-08-31] MEDS: RIVAROXABAN 15 MG TAB PO SCH (08:35)
[2022-08-31] MEDS: AZITHROMYCIN 250 MG TAB PO SCH (08:36)
[2022-08-31 09:05] LABS: Calcium 7.5 mg/dL (8.4-10.2); Magnesium 1.1 mg/dL (1.6-2.3)
[2022-08-31 09:36] LABS: Potassium 4.4 mmol/L (3.5-5.1)
[2022-08-31 09:49] LABS: Basophils % (A) 0 %; Eosinophils # (A) 0.1 k/uL (0-0.7); Eosinophils % (A) 1 %; HCT 28.6 % (39.0-53.0); Hypochromasia Marked; Lymphocytes # (A) 0.8 k/uL (1.0-4.8); Lymphocytes % (A) 7 %; MCH 28.5 pg (25.0-35.0); MCHC 31.6 g/dL (31.0-37.0); MCV 90.1 fL (80.0-100.0); Mean Platelet Volume 8.7; Monocytes # (A) 0.3 k/uL (0-1.0); Monocytes % (A) 3 %; Neutrophils # (A) 9.7 k/uL (1.3-7.7); Neutrophils % (A) 89 %; Platelet Count 190 k/uL (150-450); RBC 3.17 m/uL (4.30-5.90); RDW 15.6 % (11.5-15.5); WBC 10.9 k/uL (3.8-10.6)
[2022-08-31 11:16] LABS: Glucose,Whole Blood 120 mg/dL (70-110)
--- NOTE | 2022-08-31 11:22 | P.PN ---
Subjective Progress Note Date: 08/31/22 Principal diagnosis: Unresponsiveness Hospital Course: 76-year-old male with an extensive PMH including history of DVT on Xarelto, chronic kidney disease, type II DM, hypertension, hyperlipidemia, COPD, hypothyroidism who was brought into the emergency room for unresponsiveness. He was found to be hypoglycemic, mental status improved with IV dextrose. Also found to have left mid and lower lung pneumonia. Currently on IV antibiotics. Patient also had multiple loose bowel movements, C. diff positive, started on oral vancomycin. Subjective: Patient seen and examined at bedside. No acute events overnight. He claims that her shortness of breath is improving. He denies any chest pain, shortness of breath, abdominal pain, urinary complaints. He does have multiple loose bowel movements. Overnight he had about 3 bowel movements. Pertinent positives and negatives as discussed above, a complete review of systems was performed and all other systems are negative. Vitals Signs Reviewed. General: nontoxic, no distress, appears at stated age Derm: warm, dry Head: atraumatic, normocephalic, symmetric Eyes: EOMI, no lid lag, anicteric sclera Mouth: no lip lesion, mucus membranes moist Cardiovascular: S1S2 reg, no murmur Lungs: CTA bilateral, no rhonchi, no rales , no accessory muscle use, 2 L oxygen Abdominal: soft, nontender to palpation, no guarding, no appreciable organomegaly Ext: no gross muscle atrophy, trace peripheral edema, no contractures Neuro: CN II-XI grossly intact, no focal neuro deficits Psych: Alert, oriented, appropriate affect Assessment and Plan: Severe sepsis secondary to community acquired pneumonia in C. diff colitis -Continue to wean oxygen -Continue with azithromycin and ceftriaxone -Blood cultures pending - no growth to date -C. diff positive -On oral vancomycin Acute encephalopathy -unresponsiveness - resolved Hypoglycemia, suspect secondary to poor oral intake in setting of ongoing illness -Restarted on insulin Lactic acidosis -Resolved Chronic conditions: History of DVT,chronic kidney disease, hypertension, hyperlipidemia, COPD, hypothyroidism -Continue with home meds DVT prophylaxis -Xarelto Full code Discharge date: 09/[address]: Likely home, PT evaluation. Objective - Vital Signs Vital signs: Vital Signs Temp 98.6 F 08/31/22 02:00 Pulse 90 08/31/22 08:00 Resp 28 H 08/31/22 08:00 BP 125/63 08/31/22 08:00 Pulse Ox 97 08/31/22 08:00 FiO2 Intake & Output 08/30/22 08/31/22 08/31/22 18:59 06:59 18:59 Intake Total 200 Balance 200 Weight 79.379 kg Intake: Oral 200 Other: # Voids 3 # Bowel Movements 1 3 - Labs CBC & Chem 7: 08/31/22 08:37 08/31/22 08:37 Labs: Abnormal Lab Results - Last 24 Hours (Table) 08/30/22 08/30/22 08/30/22 Range/Units 09:53 12:20 13:05 WBC (3.8-10.6) k/uL RBC (4.30-5.90) m/uL Hgb (13.0-17.5) gm/dL Hct (39.0-53.0) % RDW (11.5-15.5) % Neutrophils # (1.3-7.7) k/uL Lymphocytes # (1.0-4.8) k/uL Sodium (137-145) mmol/L Carbon Dioxide (22-30) mmol/L BUN (9-20) mg/dL Creatinine (0.66-1.25) mg/dL Glucose (74-99) mg/dL POC Glucose (mg/dL) 352 H (70-110) mg/dL Calcium (8.4-10.2) mg/dL Magnesium (1.6-2.3) mg/dL Procalcitonin 1.58 H (0.02-0.09) ng/mL Urine Protein Trace H (Negative) Urine Glucose (UA) 3+ H (Negative) Ur Leukocyte Esterase Small H (Negative) Urine Bacteria Rare H (None) /hpf Urine Mucus Rare H (None) /hpf C. difficile (EIA) Intrp (Negative) 08/30/22 08/30/22 08/30/22 Range/Units 13:35 17:21 20:24 WBC (3.8-10.6) k/uL RBC (4.30-5.90) m/uL Hgb (13.0-17.5) gm/dL Hct (39.0-53.0) % RDW (11.5-15.5) % Neutrophils # (1.3-7.7) k/uL Lymphocytes # (1.0-4.8) k/uL Sodium (137-145) mmol/L Carbon Dioxide (22-30) mmol/L BUN (9-20) mg/dL Creatinine (0.66-1.25) mg/dL Glucose (74-99) mg/dL POC Glucose (mg/dL) 204 H 138 H (70-110) mg/dL Calcium (8.4-10.2) mg/dL Magnesium (1.6-2.3) mg/dL Procalcitonin (0.02-0.09) ng/mL Urine Protein (Negative) Urine Glucose (UA) (Negative) Ur Leukocyte Esterase (Negative) Urine Bacteria (None) /hpf Urine Mucus (None) /hpf C. difficile (EIA) Intrp Positive A (Negative) 08/31/22 08/31/22 08/31/22 Range/Units 06:41 08:37 08:37 WBC 10.9 H (3.8-10.6) k/uL RBC 3.17 L (4.30-5.90) m/uL Hgb 9.0 L D (13.0-17.5) gm/dL Hct 28.6 L (39.0-53.0) % RDW 15.6 H (11.5-15.5) % Neutrophils # 9.7 H (1.3-7.7) k/uL Lymphocytes # 0.8 L (1.0-4.8) k/uL Sodium 136 L (137-145) mmol/L Carbon Dioxide 18 L (22-30) mmol/L BUN 49 H (9-20) mg/dL Creatinine 2.04 H (0.66-1.25) mg/dL Glucose 131 H (74-99) mg/dL POC Glucose (mg/dL) 135 H (70-110) mg/dL Calcium 7.5 L (8.4-10.2) mg/dL Magnesium 1.1 L (1.6-2.3) mg/dL Procalcitonin (0.02-0.09) ng/mL Urine Protein (Negative) Urine Glucose (UA) (Negative) Ur Leukocyte Esterase (Negative) Urine Bacteria (None) /hpf Urine Mucus (None) /hpf C. difficile (EIA) Intrp (Negative) 08/31/22 Range/Units 11:14 WBC (3.8-10.6) k/uL RBC (4.30-5.90) m/uL Hgb (13.0-17.5) gm/dL Hct (39.0-53.0) % RDW (11.5-15.5) % Neutrophils # (1.3-7.7) k/uL Lymphocytes # (1.0-4.8) k/uL Sodium (137-145) mmol/L Carbon Dioxide (22-30) mmol/L BUN (9-20) mg/dL Creatinine (0.66-1.25) mg/dL Glucose (74-99) mg/dL POC Glucose (mg/dL) 120 H (70-110) mg/dL Calcium (8.4-10.2) mg/dL Magnesium (1.6-2.3) mg/dL Procalcitonin (0.02-0.09) ng/mL Urine Protein (Negative) Urine Glucose (UA) (Negative) Ur Leukocyte Esterase (Negative) Urine Bacteria (None) /hpf Urine Mucus (None) /hpf C. difficile (EIA) Intrp (Negative) Microbiology - Last 24 Hours (Table) 08/29/22 16:25 Blood Culture - Preliminary Blood No Growth after 24 hours
--- NOTE | 2022-08-31 12:16 | P.PN ---
Subjective Progress Note Date: 08/31/22 Principal diagnosis: COPD exacerbation. Pulmonary consult dated 08/30/2022. 76-year-old male brought into the emergency room, on August 29, to be evaluated for mental status changes. He apparently was found in his bed, unresponsive, by his family. EMS was called, after he did not respond to a sternal rub. Apparently EMS arrived, and found the patient's blood sugar to be approximately 30. He did received 2 ampules of dextrose, and the patient became more responsive. The patient is seen in the emergency room, room 1, and states that he's been having shortness of breath, fever, and chills, as well as cough. Currently, he is getting 2 L of oxygen, and D5 with saline, at 100 mL an hour. The patient has an extensive history of lung cancer, COPD, CVA, diabetes, DVT, GERD, hyperlipidemia, hypertension, and seizure disorder, among other things. White count 21.5, hemoglobin 10.5, hematocrit 33.1, platelet count 263,000. Sodium 138, potassium 4.6, chlorides 106, CO2 19, anion gap 13, BUN 56, and creatinine 2.25. Testing for coronavirus was negative. Chest x-ray shows a left-sided infiltrate. Progress note dated 08/31/2022. The patient was seen in consultation yesterday in the emergency room. He was initially brought him because of mental status changes. The patient was found have a very low blood glucose, by EMS, of 30. He was seen in the emergency d epartment, and is now in the ICU, room 254. Currently, he's on 2 L of oxygen. He is getting saline at 20 mL an hour. He did test positive for C. difficile colitis. The patient is stable and can be transferred out to the general medical floor without telemetry. He was admitted as an overflow patient to the ICU. White count 10.9, hemoglobin 9, hematocrit 28.6, and platelet count 290,000. Sodium 136, potassium 4.4, chlorides 107, CO2 18, BUN 49, and creatinine 2.04. Magnesium is 1.1. Objective - Vital Signs Vital signs: Vital Signs Temp 98.6 F 08/31/22 02:00 Pulse 87 08/31/22 11:31 Resp 28 H 08/31/22 08:00 BP 125/63 08/31/22 08:00 Pulse Ox 98 08/31/22 11:26 FiO2 Intake & Output 08/30/22 08/31/22 08/31/22 18:59 06:59 18:59 Intake Total 200 Balance 200 Weight 79.379 kg Intake: Oral 200 Other: # Voids 3 # Bowel Movements 1 3 - Exam No acute distress, oriented 3. Currently on 2 L. No audible wheezing, or use of accessory muscles. HEENT examination is grossly unremarkable. Neck supple. Full range of motion. No adenopathy thyromegaly or neck vein distention. Cardiovascular examination reveals regular rhythm rate. S1-S2 normal. No S3 or S4. No discernible murmur noted. Heart rate 87 bpm. Lungs reveal scattered bilateral rhonchi. No wheezes. No crackles. Breath sounds are equal bilaterally. Saturation is 98 % on 2 L. Abdomen soft bowel sounds are heard. No masses or tenderness. Extremities are intact. No cyanosis clubbing or edema. Skin is without rash or lesion. Neurologic examination is brief but nonfocal. - Labs CBC & Chem 7: 08/31/22 08:37 08/31/22 08:37 Labs: Abnormal Lab Results - Last 24 Hours (Table) 08/30/22 08/30/22 08/30/22 Range/Units 09:53 12:20 13:05 WBC (3.8-10.6) k/uL RBC (4.30-5.90) m/uL Hgb (13.0-17.5) gm/dL Hct (39.0-53.0) % RDW (11.5-15.5) % Neutrophils # (1.3-7.7) k/uL Lymphocytes # (1.0-4.8) k/uL Sodium (137-145) mmol/L Carbon Dioxide (22-30) mmol/L BUN (9-20) mg/dL Creatinine (0.66-1.25) mg/dL Glucose (74-99) mg/dL POC Glucose (mg/dL) 352 H (70-110) mg/dL Calcium (8.4-10.2) mg/dL Magnesium (1.6-2.3) mg/dL Procalcitonin 1.58 H (0.02-0.09) ng/mL Urine Protein Trace H (Negative) Urine Glucose (UA) 3+ H (Negative) Ur Leukocyte Esterase Small H (Negative) Urine Bacteria Rare H (None) /hpf Urine Mucus Rare H (None) /hpf C. difficile (EIA) Intrp (Negative) 08/30/22 08/30/22 08/30/22 Range/Units 13:35 17:21 20:24 WBC (3.8-10.6) k/uL RBC (4.30-5.90) m/uL Hgb (13.0-17.5) gm/dL Hct (39.0-53.0) % RDW (11.5-15.5) % Neutrophils # (1.3-7.7) k/uL Lymphocytes # (1.0-4.8) k/uL Sodium (137-145) mmol/L Carbon Dioxide (22-30) mmol/L BUN (9-20) mg/dL Creatinine (0.66-1.25) mg/dL Glucose (74-99) mg/dL POC Glucose (mg/dL) 204 H 138 H (70-110) mg/dL Calcium (8.4-10.2) mg/dL Magnesium (1.6-2.3) mg/dL Procalcitonin (0.02-0.09) ng/mL Urine Protein (Negative) Urine Glucose (UA) (Negative) Ur Leukocyte Esterase (Negative) Urine Bacteria (None) /hpf Urine Mucus (None) /hpf C. difficile (EIA) Intrp Positive A (Negative) 08/31/22 08/31/22 08/31/22 Range/Units 06:41 08:37 08:37 WBC 10.9 H (3.8-10.6) k/uL RBC 3.17 L (4.30-5.90) m/uL Hgb 9.0 L D (13.0-17.5) gm/dL Hct 28.6 L (39.0-53.0) % RDW 15.6 H (11.5-15.5) % Neutrophils # 9.7 H (1.3-7.7) k/uL Lymphocytes # 0.8 L (1.0-4.8) k/uL Sodium 136 L (137-145) mmol/L Carbon Dioxide 18 L (22-30) mmol/L BUN 49 H (9-20) mg/dL Creatinine 2.04 H (0.66-1.25) mg/dL Glucose 131 H (74-99) mg/dL POC Glucose (mg/dL) 135 H (70-110) mg/dL Calcium 7.5 L (8.4-10.2) mg/dL Magnesium 1.1 L (1.6-2.3) mg/dL Procalcitonin (0.02-0.09) ng/mL Urine Protein (Negative) Urine Glucose (UA) (Negative) Ur Leukocyte Esterase (Negative) Urine Bacteria (None) /hpf Urine Mucus (None) /hpf C. difficile (EIA) Intrp (Negative) 08/31/22 Range/Units 11:14 WBC (3.8-10.6) k/uL RBC (4.30-5.90) m/uL Hgb (13.0-17.5) gm/dL Hct (39.0-53.0) % RDW (11.5-15.5) % Neutrophils # (1.3-7.7) k/uL Lymphocytes # (1.0-4.8) k/uL Sodium (137-145) mmol/L Carbon Dioxide (22-30) mmol/L BUN (9-20) mg/dL Creatinine (0.66-1.25) mg/dL Glucose (74-99) mg/dL POC Glucose (mg/dL) 120 H (70-110) mg/dL Calcium (8.4-10.2) mg/dL Magnesium (1.6-2.3) mg/dL Procalcitonin (0.02-0.09) ng/mL Urine Protein (Negative) Urine Glucose (UA) (Negative) Ur Leukocyte Esterase (Negative) Urine Bacteria (None) /hpf Urine Mucus (None) /hpf C. difficile (EIA) Intrp (Negative) Microbiology - Last 24 Hours (Table) 08/29/22 16:25 Blood Culture - Preliminary Blood No Growth after 24 hours Assessment and Plan Assessment: Severe hypoglycemia, with mental status changes, resolved. Incidental finding of possible pneumonia, left lung, in a patient with severe C OPD. History of CVA. History of diabetes mellitus. History of deep venous thrombosis. History of left upper lobectomy, 2018, and right lower lobe wedge resection, 2019, for non-small cell lung cancer. History of seizure disorder. History of hypertension. History of hyperlipidemia. History of gastroesophageal reflux disease. History of heart catheterization with stent placement. Multiple other medical problems and comorbidities. Plan: Plan dated 08/30/2022. The patient is currently on Zithromax, and Rocephin. In addition, he is on Symbicort 160/4.5, 2 puffs twice a day. Also, the patient is on albuterol sulfate and ipratropium bromide breathing treatments, 4 times a day and when necessary. We don't feel the patient needs corticosteroids at this time. He continues on all his other usual medications. A pro-calcitonin level was ordered. Additional recommendations and suggestions are forthcoming. Prognosis is certainly guarded. Plan dated 08/31/2022. The patient appears to be doing relatively well. He is currently on azithromycin and Rocephin. He is also getting Symbicort, an updraft treatments with albuterol sulfate and ipratropium bromide. The patient clinically looks much improved. The patient could be transferred out of the intensive care unit. Additional recommendations and suggestions are forthcoming. We will follow along and make recommendations along the way. Labs, x-rays, and medications are all reviewed. Time with Patient: Less than 30
[2022-08-31 16:39] LABS: Glucose,Whole Blood 132 mg/dL (70-110)
[2022-08-31] MEDS ORDERED: Magnesium Replacement Protocol 1 EACH MISC MISCELLANE PRN (18:03)
[2022-08-31] MEDS: ASPIRIN 81 MG PO SCH (20:27)
[2022-08-31] MEDS: PANTOPRAZOLE 40 MG TABLET PO SCH (20:28)
[2022-08-31] MEDS: amLODIPine 10 MG TAB PO SCH (20:30)
[2022-08-31] MEDS: ATORVASTATIN 10 MG TAB PO SCH (20:30)
[2022-08-31 20:35] LABS: Glucose,Whole Blood 187 mg/dL (70-110)
[2022-08-31] MEDS: INSULIN DETEMIR (LEVEMIR) 100 UNIT/ML SYR SQ SCH (20:40)
[2022-08-31] MEDS: SODIUM CHLORIDE 0.9% 1,000 ML IV SCH (21:08)
[2022-09-01] MEDS: MAGNESIUM SULFATE-D5W PMX 1 GM in DEXTROSE/WATER 1 100ML.BAG IVPB SCH ×3 (05:38→10:55)
[2022-09-01] MEDS: LEVOTHYROXINE 25 MCG TAB PO SCH (06:16)
[2022-09-01 06:28] LABS: Glucose,Whole Blood 116 mg/dL (70-110)
[2022-09-01] MEDS: INSULIN ASPART (NovoLOG) 100 UNIT/ML VIAL SQ SCH ×4 (06:35→20:28)
[2022-09-01] MEDS: IPRATROPIUM-ALBUTEROL 3 ML NEB INHALATION SCH ×4 (07:42→19:13)
[2022-09-01] MEDS: SYMBICORT 160-4.5 MCG INHALER INHALATION SCH ×2 (07:42→19:13)
[2022-09-01] MEDS: AZITHROMYCIN 250 MG TAB PO SCH (09:21)
[2022-09-01] MEDS: VANCOMYCIN 125 MG CAPSULE PO SCH ×4 (09:21→23:44)
[2022-09-01] MEDS: levETIRAcetam 500 MG TAB PO SCH ×2 (09:21→20:29)
[2022-09-01] MEDS: allopurinoL 100 MG TAB PO SCH (09:21)
[2022-09-01] MEDS: FERROUS SULFATE 325 MG TAB PO SCH (09:21)
[2022-09-01] MEDS: FUROSEMIDE 40 MG TAB PO SCH ×2 (09:21→16:10)
[2022-09-01] MEDS: RIVAROXABAN 15 MG TAB PO SCH (09:21)
[2022-09-01] MEDS: TAMSULOSIN 0.4 MG CAP.ER.24H PO SCH (09:21)
[2022-09-01] MEDS: METOPROLOL TARTRATE 25 MG TAB PO SCH ×2 (09:22→20:29)
[2022-09-01 11:18] LABS: Glucose,Whole Blood 189 mg/dL (70-110)
--- NOTE | 2022-09-01 11:39 | P.PN ---
Subjective Progress Note Date: 09/01/22 Principal diagnosis: COPD exacerbation. Pulmonary consult dated 08/30/2022. 76-year-old male brought into the emergency room, on August 29, to be evaluated for mental status changes. He apparently was found in his bed, unresponsive, by his family. EMS was called, after he did not respond to a sternal rub. Apparently EMS arrived, and found the patient's blood sugar to be approximately 30. He did received 2 ampules of dextrose, and the patient became more responsive. The patient is seen in the emergency room, room 1, and states that he's been having shortness of breath, fever, and chills, as well as cough. Currently, he is getting 2 L of oxygen, and D5 with saline, at 100 mL an hour. The patient has an extensive history of lung cancer, COPD, CVA, diabetes, DVT, GERD, hyperlipidemia, hypertension, and seizure disorder, among other things. White count 21.5, hemoglobin 10.5, hematocrit 33.1, platelet count 263,000. Sodium 138, potassium 4.6, chlorides 106, CO2 19, anion gap 13, BUN 56, and creatinine 2.25. Testing for coronavirus was negative. Chest x-ray shows a left-sided infiltrate. Progress note dated 08/31/2022. The patient was seen in consultation yesterday in the emergency room. He was initially brought him because of mental status changes. The patient was found have a very low blood glucose, by EMS, of 30. He was seen in the emergency d epartment, and is now in the ICU, room 254. Currently, he's on 2 L of oxygen. He is getting saline at 20 mL an hour. He did test positive for C. difficile colitis. The patient is stable and can be transferred out to the general medical floor without telemetry. He was admitted as an overflow patient to the ICU. White count 10.9, hemoglobin 9, hematocrit 28.6, and platelet count 290,000. Sodium 136, potassium 4.4, chlorides 107, CO2 18, BUN 49, and creatinine 2.04. Magnesium is 1.1. Progress note dated 09/01/2022. The patient is again seen in the intensive care unit, room 254. The patient's currently on room air. He is getting saline at 20 mL an hour. The patient is hoping to be discharged to assisted, such as [facility]. Clinically, he feels much better. The patient is currently on oral vancomycin for C. difficile colitis. No new laboratory data today other than a glucose of 189. We will DC the patient's Rocephin, him on Zithromax orally. Objective - Vital Signs Vital signs: Vital Signs Temp 98.1 F 09/01/22 02:00 Pulse 70 09/01/22 11:31 Resp 21 09/01/22 08:00 BP 118/65 09/01/22 02:00 Pulse Ox 96 09/01/22 02:00 FiO2 Intake & Output 08/31/22 09/01/22 09/01/22 18:59 06:59 18:59 Intake Total 100 550 Output Total 351 1 Balance 100 199 -1 Intake: Oral 100 550 Output: Urine 350 Stool 1 1 Other: # Voids 0 # Bowel Movements 1 - Exam No acute distress, oriented 3. Currently on room air. No audible wheezing, or use of accessory muscles. HEENT examination is grossly unremarkable. Neck supple. Full range of motion. No adenopathy thyromegaly or neck vein distention. Cardiovascular examination reveals regular rhythm rate. S1-S2 normal. No S3 or S4. No discernible murmur noted. Heart rate 70 bpm. Lungs reveal scattered bilateral rhonchi. No wheezes. No crackles. Breath sounds are equal bilaterally. Saturation is 96% on room air. Abdomen soft bowel sounds are heard. No masses or tenderness. Extremities are intact. No cyanosis clubbing or edema. Skin is without rash or lesion. Neurologic examination is brief but nonfocal. - Labs CBC & Chem 7: 08/31/22 08:37 08/31/22 08:37 Labs: Abnormal Lab Results - Last 24 Hours (Table) 08/31/22 08/31/22 09/01/22 Range/Units 16:37 20:34 03:56 POC Glucose (mg/dL) 132 H 187 H (70-110) mg/dL Magnesium 1.1 L (1.6-2.3) mg/dL 09/01/22 09/01/22 Range/Units 06:27 11:17 POC Glucose (mg/dL) 116 H 189 H (70-110) mg/dL Magnesium (1.6-2.3) mg/dL Microbiology - Last 24 Hours (Table) 08/29/22 16:25 Blood Culture - Preliminary Blood No Growth after 48 hours Assessment and Plan Assessment: Severe hypoglycemia, with mental status changes, resolved. Incidental finding of possible pneumonia, left lung, in a patient with severe COPD. History of CVA. History of diabetes mellitus. History of deep venous thrombosis. History of left upper lobectomy, 2018, and right lower lobe wedge resection, 2019, for non-small cell lung cancer. History of seizure disorder. History of hypertension. History of hyperlipidemia. History of gastroesophageal reflux disease. History of heart catheterization with stent placement. Multiple other medical problems and comorbidities. Plan: Plan dated 08/30/2022. The patient is currently on Zithromax, and Rocephin. In addition, he is on Symbicort 160/4.5, 2 puffs twice a day. Also, the patient is on albuterol sulfate and ipratropium bromide breathing treatments, 4 times a day and when necessary. We don't feel the patient needs corticosteroids at this time. He continues on all his other usual medications. A pro-calcitonin level was ordered. Additional recommendations and suggestions are forthcoming. Prognosis is certainly guarded. Plan dated 08/31/2022. The patient appears to be doing relatively well. He is currently on azithromycin and Rocephin. He is also getting Symbicort, an updraft treatments with albuterol sulfate and ipratropium bromide. The patient clinically looks much improved. The patient could be transferred out of the intensive care unit. Additional recommendations and suggestions are forthcoming. We will follow along and make recommendations along the way. Labs, x-rays, and medications are all reviewed. Plan dated 09/01/2022. The patient is seen in the intensive care unit. He is in room 254. The patient can be transferred out to the general medical floor, or, can be transferred to one of the local nursing homes. We DC his Rocephin. He is on oral vancomycin for his C. difficile colitis. He is on room air. He is getting saline at 20 mL an hour. We will continue to follow. Labs, x-rays, and medications are reviewed. Prognosis is guarded. Time with Patient: Less than 30
--- NOTE | 2022-09-01 13:48 | P.PN ---
Subjective Progress Note Date: 09/01/22 Principal diagnosis: Unresponsiveness Hospital Course: 76-year-old male with an extensive PMH including history of DVT on Xarelto, chronic kidney disease, type II DM, hypertension, hyperlipidemia, COPD, hypothyroidism who was brought into the emergency room for unresponsiveness. He was found to be hypoglycemic, mental status improved with IV dextrose. Also found to have left mid and lower lung pneumonia. Currently on IV antibiotics. Patient also had multiple loose bowel movements, C. diff positive, started on oral vancomycin. Patient will likely need rehab. Subjective: Patient seen and examined at bedside. No acute events overnight. He claims that her shortness of breath is improving. He denies any chest pain, shortness of breath, abdominal pain, urinary complaints. She had about 15 bowel movements overnight. Pertinent positives and negatives as discussed above, a complete review of systems was performed and all other systems are negative. Vitals Signs Reviewed. General: nontoxic, no distress, appears at stated age Derm: warm, dry Head: atraumatic, normocephalic, symmetric Eyes: EOMI, no lid lag, anicteric sclera Mouth: no lip lesion, mucus membranes moist Cardiovascular: S1S2 reg, no murmur Lungs: CTA bilateral, no rhonchi, no rales , no accessory muscle use, room air Abdominal: soft, nontender to palpation, no guarding, no appreciable organomegaly Ext: no gross muscle atrophy, trace peripheral edema, no contractures Neuro: CN II-XI grossly intact, no focal neuro deficits Psych: Alert, oriented, appropriate affect Assessment and Plan: Severe sepsis secondary to community acquired pneumonia and C. diff colitis -Oxygen only when needed -Seen by pulmonology, only on azithromycin -Blood cultures pending - no growth to date -On oral vancomycin -Continues to have multiple bowel movements Acute encephalopathy -unresponsiveness - resolved Hypoglycemia - resolved -Restarted on insulin Lactic acidosis -Resolved Chronic conditions: History of DVT,chronic kidney disease, hypertension, hyperlipidemia, COPD, hypothyroidism -Continue with home meds DVT prophylaxis -Xarelto Full code Discharge date: 09/[address]: Patient will likely benefit from rehab, likely discharge on Sunday Objective - Vital Signs Vital signs: Vital Signs Temp 98.1 F 09/01/22 02:00 Pulse 72 09/01/22 11:44 Resp 21 09/01/22 08:00 BP 118/65 09/01/22 02:00 Pulse Ox 96 09/01/22 02:00 FiO2 Intake & Output 08/31/22 09/01/22 09/01/22 18:59 06:59 18:59 Intake Total 100 550 Output Total 351 1 Balance 100 199 -1 Intake: Oral 100 550 Output: Urine 350 Stool 1 1 Other: # Voids 0 # Bowel Movements 1 - Labs CBC & Chem 7: 08/31/22 08:37 08/31/22 08:37 Labs: Abnormal Lab Results - Last 24 Hours (Table) 08/31/22 08/31/22 09/01/22 Range/Units 16:37 20:34 03:56 POC Glucose (mg/dL) 132 H 187 H (70-110) mg/dL Magnesium 1.1 L (1.6-2.3) mg/dL 09/01/22 09/01/22 Range/Units 06:27 11:17 POC Glucose (mg/dL) 116 H 189 H (70-110) mg/dL Magnesium (1.6-2.3) mg/dL Microbiology - Last 24 Hours (Table) 08/29/22 16:25 Blood Culture - Preliminary Blood No Growth after 48 hours
[2022-09-01 16:18] LABS: Glucose,Whole Blood 131 mg/dL (70-110)
[2022-09-01 20:15] LABS: Glucose,Whole Blood 305 mg/dL (70-110)
[2022-09-01 20:15] LABS: Glucose,Whole Blood 356 mg/dL (70-110)
[2022-09-01] MEDS: ASPIRIN 81 MG PO SCH (20:28)
[2022-09-01] MEDS: INSULIN DETEMIR (LEVEMIR) 100 UNIT/ML SYR SQ SCH (20:28)
[2022-09-01] MEDS: ATORVASTATIN 10 MG TAB PO SCH (20:29)
[2022-09-01] MEDS: amLODIPine 10 MG TAB PO SCH (20:29)
[2022-09-01] MEDS: PANTOPRAZOLE 40 MG TABLET PO SCH (20:29)
[2022-09-02 04:55] LABS: Calcium 7.3 mg/dL (8.4-10.2); Potassium 4.3 mmol/L (3.5-5.1)
[2022-09-02 06:38] LABS: Glucose,Whole Blood 151 mg/dL (70-110)
[2022-09-02 07:46] LABS: Glucose,Whole Blood 174 mg/dL (70-110)
[2022-09-02] MEDS: LEVOTHYROXINE 25 MCG TAB PO SCH (07:48)
[2022-09-02] MEDS: INSULIN ASPART (NovoLOG) 100 UNIT/ML VIAL SQ SCH ×4 (07:48→21:55)
[2022-09-02] MEDS: IPRATROPIUM-ALBUTEROL 3 ML NEB INHALATION SCH ×4 (09:10→21:16)
[2022-09-02] MEDS: SYMBICORT 160-4.5 MCG INHALER INHALATION SCH ×2 (09:10→21:15)
[2022-09-02] MEDS: levETIRAcetam 500 MG TAB PO SCH ×2 (09:20→22:07)
[2022-09-02] MEDS: FUROSEMIDE 40 MG TAB PO SCH ×2 (09:20→16:22)
[2022-09-02] MEDS: AZITHROMYCIN 500 MG TAB PO SCH (09:20)
[2022-09-02] MEDS: RIVAROXABAN 15 MG TAB PO SCH (09:20)
[2022-09-02] MEDS: FERROUS SULFATE 325 MG TAB PO SCH (09:20)
[2022-09-02] MEDS: METOPROLOL TARTRATE 25 MG TAB PO SCH ×2 (09:20→21:56)
[2022-09-02] MEDS: TAMSULOSIN 0.4 MG CAP.ER.24H PO SCH (09:20)
[2022-09-02] MEDS: allopurinoL 100 MG TAB PO SCH (09:20)
[2022-09-02] MEDS: VANCOMYCIN 125 MG CAPSULE PO SCH ×4 (09:20→21:56)
--- NOTE | 2022-09-02 12:12 | P.PN ---
Subjective Progress Note Date: 09/02/22 Principal diagnosis: COPD exacerbation. Pulmonary consult dated 08/30/2022. 76-year-old male brought into the emergency room, on August 29, to be evaluated for mental status changes. He apparently was found in his bed, unresponsive, by his family. EMS was called, after he did not respond to a sternal rub. Apparently EMS arrived, and found the patient's blood sugar to be approximately 30. He did received 2 ampules of dextrose, and the patient became more responsive. The patient is seen in the emergency room, room 1, and states that he's been having shortness of breath, fever, and chills, as well as cough. Currently, he is getting 2 L of oxygen, and D5 with saline, at 100 mL an hour. The patient has an extensive history of lung cancer, COPD, CVA, diabetes, DVT, GERD, hyperlipidemia, hypertension, and seizure disorder, among other things. White count 21.5, hemoglobin 10.5, hematocrit 33.1, platelet count 263,000. Sodium 138, potassium 4.6, chlorides 106, CO2 19, anion gap 13, BUN 56, and creatinine 2.25. Testing for coronavirus was negative. Chest x-ray shows a left-sided infiltrate. Progress note dated 08/31/2022. The patient was seen in consultation yesterday in the emergency room. He was initially brought him because of mental status changes. The patient was found have a very low blood glucose, by EMS, of 30. He was seen in the emergency d epartment, and is now in the ICU, room 254. Currently, he's on 2 L of oxygen. He is getting saline at 20 mL an hour. He did test positive for C. difficile colitis. The patient is stable and can be transferred out to the general medical floor without telemetry. He was admitted as an overflow patient to the ICU. White count 10.9, hemoglobin 9, hematocrit 28.6, and platelet count 290,000. Sodium 136, potassium 4.4, chlorides 107, CO2 18, BUN 49, and creatinine 2.04. Magnesium is 1.1. Progress note dated 09/01/2022. The patient is again seen in the intensive care unit, room 254. The patient's currently on room air. He is getting saline at 20 mL an hour. The patient is hoping to be discharged to custodial, such as [facility]. Clinically, he feels much better. The patient is currently on oral vancomycin for C. difficile colitis. No new laboratory data today other than a glucose of 189. We will DC the patient's Rocephin, him on Zithromax orally. Progress note dated 09/02/2022. The patient is again seen in the intensive care unit, room 254. He is resting comfortably. He is on 3 L of oxygen. He's not receiving any IV fluids. A follow-up chest x-ray is ordered. The patient will likely eventually be discharged to custodial, such as [facility]. Labs today include a sodium 132, potassium 4.3, chlorides 106, CO2 19, anion gap 7, BUN 50, creatinine 2.45. Objective - Vital Signs Vital signs: Vital Signs Temp 98.5 F 09/02/22 08:00 Pulse 80 09/02/22 08:00 Resp 17 09/02/22 08:00 BP 118/68 09/02/22 08:00 Pulse Ox 96 09/02/22 08:00 FiO2 Intake & Output 09/01/22 09/02/22 09/02/22 18:59 06:59 18:59 Intake Total 600 Output Total 1 Balance -1 600 Weight 79.2 kg 79.3 kg Intake: Intake, IV Titration 100 Amount Sodium Chloride 0.9% 1, 100 000 ml @ 20 mls/hr IV . Q24H [facility] Rx#:[id number] Oral 500 Output: Stool 1 Other: # Voids 3 1 # Bowel Movements 6 1 - Exam No acute distress, oriented 3. Currently on 3 L nasal cannula. No audible wheezing, or use of accessory muscles. HEENT examination is grossly unremarkable. Neck supple. Full range of motion. No adenopathy thyromegaly or neck vein distention. Cardiovascular examination reveals regular rhythm rate. S1-S2 normal. No S3 or S4. No discernible murmur noted. Heart rate 80 bpm. Lungs reveal scattered bilateral rhonchi. No wheezes. No crackles. Breath so unds are equal bilaterally. Saturation is 96% on 3 L Abdomen soft bowel sounds are heard. No masses or tenderness. Extremities are intact. No cyanosis clubbing or edema. Skin is without rash or lesion. Neurologic examination is brief but nonfocal. - Labs CBC & Chem 7: 10/27/22 08:37 09/02/22 04:14 Labs: Abnormal Lab Results - Last 24 Hours (Table) 09/01/22 09/01/22 09/01/22 Range/Units 16:16 20:12 20:13 Sodium (137-145) mmol/L Carbon Dioxide (22-30) mmol/L BUN (9-20) mg/dL Creatinine (0.66-1.25) mg/dL Glucose (74-99) mg/dL POC Glucose (mg/dL) 131 H 356 H 305 H (70-110) mg/dL Calcium (8.4-10.2) mg/dL 09/02/22 09/02/22 09/02/22 Range/Units 04:14 06:37 07:44 Sodium 132 L (137-145) mmol/L Carbon Dioxide 19 L (22-30) mmol/L BUN 50 H (9-20) mg/dL Creatinine 2.45 H (0.66-1.25) mg/dL Glucose 143 H (74-99) mg/dL POC Glucose (mg/dL) 151 H 174 H (70-110) mg/dL Calcium 7.3 L (8.4-10.2) mg/dL Microbiology - Last 24 Hours (Table) 08/29/22 16:25 Blood Culture - Preliminary Blood No Growth after 72 hours Assessment and Plan Assessment: Severe hypoglycemia, with mental status changes, resolved. Incidental finding of possible pneumonia, left lung, in a patient with severe COPD. History of CVA. History of diabetes mellitus. History of deep venous thrombosis. History of left upper lobectomy, 2018, and right lower lobe wedge resection, 2019, for non-small cell lung cancer. History of seizure disorder. History of hypertension. History of hyperlipidemia. History of gastroesophageal reflux disease. History of heart catheterization with stent placement. Multiple other medical problems and comorbidities. Plan: Plan dated 08/30/2022. The patient is currently on Zithromax, and Rocephin. In addition, he is on Symbicort 160/4.5, 2 puffs twice a day. Also, the patient is on albuterol sulfate and ipratropium bromide breathing treatments, 4 times a day and when necessary. We don't feel the patient needs corticosteroids at this time. He continues on all his other usual medications. A pro-calcitonin level was ordered. Additional recommendations and suggestions are forthcoming. Prognosis is certainly guarded. Plan dated 08/31/2022. The patient appears to be doing relatively well. He is currently on azithromycin and Rocephin. He is also getting Symbicort, an updraft treatments with albuterol sulfate and ipratropium bromide. The patient clinically looks much improved. The patient could be transferred out of the intensive care unit. Additional recommendations and suggestions are forthcoming. We will follow along and make recommendations along the way. Labs, x-rays, and medications are all reviewed. Plan dated 09/01/2022. The patient is seen in the intensive care unit. He is in room 254. The patient can be transferred out to the general medical floor, or, can be transferred to one of the local nursing homes. We DC his Rocephin. He is on oral vancomycin for his C. difficile colitis. He is on room air. He is getting saline at 20 mL an hour. We will continue to follow. Labs, x-rays, and medications are reviewed. Prognosis is guarded. Plan dated 09/02/2022. The patient remains in the intensive care unit, as an overflow patient. We will order a follow-up chest x-ray, to check out the pneumonia in the left lung. The patient's currently on 3 L. He is being treated with oral vancomycin for C. difficile colitis, and also receiving azithromycin. Additional recommendations and suggestions are forthcoming. Prognosis is guarded. He likely will be discharged to a rehab facility or custodial. Time with Patient: Less than 30
--- NOTE | 2022-09-02 12:55 | P.PN ---
Subjective Progress Note Date: 09/02/22 Principal diagnosis: Unresponsiveness Hospital Course: 76-year-old male with an extensive PMH including history of DVT on Xarelto, chronic kidney disease, type II DM, hypertension, hyperlipidemia, COPD, hypothyroidism who was brought into the emergency room for unresponsiveness. He was found to be hypoglycemic, mental status improved with IV dextrose. Also found to have left mid and lower lung pneumonia. Currently on IV antibiotics. Patient also had multiple loose bowel movements, C. diff positive, started on oral vancomycin. Patient will likely need rehab. Subjective: Patient seen and examined at bedside. No acute events overnight. He claims that her shortness of breath is improving but remains on 3 L nasal cannula. He denies any chest pain, shortness of breath, abdominal pain, urinary complaints. Number of bowel movements have decreased. Pertinent positives and negatives as discussed above, a complete review of systems was performed and all other systems are negative. Vitals Signs Reviewed. General: nontoxic, no distress, appears at stated age Derm: warm, dry Head: atraumatic, normocephalic, symmetric Eyes: EOMI, no lid lag, anicteric sclera Mouth: no lip lesion, mucus membranes moist Cardiovascular: S1S2 reg, no murmur Lungs: CTA bilateral, no rhonchi, no rales , no accessory muscle use, 3 L nasal cannula Abdominal: soft, nontender to palpation, no guarding, no appreciable organomegaly Ext: no gross muscle atrophy, trace peripheral edema, no contractures Neuro: CN II-XI grossly intact, no focal neuro deficits Psych: Alert, oriented, appropriate affect Assessment and Plan: Severe sepsis secondary to community acquired pneumonia and C. diff colitis -Wean oxygen -Seen by pulmonology, only on azithromycin -Blood cultures pending - no growth to date -On oral vancomycin -Number of bowel movements have decreased Acute encephalopathy -unresponsiveness - resolved Hypoglycemia - resolved -Restarted on insulin Lactic acidosis -Resolved Chronic conditions: History of DVT,chronic kidney disease, hypertension, hyperlipidemia, COPD, hypothyroidism -Continue with home meds DVT prophylaxis -Xarelto Full code Discharge date: 09/[address]: Patient will likely benefit from rehab, likely discharge on Sunday Objective - Vital Signs Vital signs: Vital Signs Temp 98.5 F 09/02/22 08:00 Pulse 80 09/02/22 08:00 Resp 17 09/02/22 08:00 BP 118/68 09/02/22 08:00 Pulse Ox 96 09/02/22 08:00 FiO2 Intake & Output 09/01/22 09/02/22 09/02/22 18:59 06:59 18:59 Intake Total 600 Output Total 1 Balance -1 600 Weight 79.2 kg 79.3 kg Intake: Intake, IV Titration 100 Amount Sodium Chloride 0.9% 1, 100 000 ml @ 20 mls/hr IV . Q24H [facility] Rx#:[id number] Oral 500 Output: Stool 1 Other: # Voids 3 1 # Bowel Movements 6 1 - Labs CBC & Chem 7: 08/31/22 08:37 09/02/22 04:14 Labs: Abnormal Lab Results - Last 24 Hours (Table) 09/01/22 09/01/22 09/01/22 Range/Units 16:16 20:12 20:13 Sodium (137-145) mmol/L Carbon Dioxide (22-30) mmol/L BUN (9-20) mg/dL Creatinine (0.66-1.25) mg/dL Glucose (74-99) mg/dL POC Glucose (mg/dL) 131 H 356 H 305 H (70-110) mg/dL Calcium (8.4-10.2) mg/dL 09/02/22 09/02/22 09/02/22 Range/Units 04:14 06:37 07:44 Sodium 132 L (137-145) mmol/L Carbon Dioxide 19 L (22-30) mmol/L BUN 50 H (9-20) mg/dL Creatinine 2.45 H (0.66-1.25) mg/dL Glucose 143 H (74-99) mg/dL POC Glucose (mg/dL) 151 H 174 H (70-110) mg/dL Calcium 7.3 L (8.4-10.2) mg/dL Microbiology - Last 24 Hours (Table) 08/29/22 16:25 Blood Culture - Preliminary Blood No Growth after 72 hours
--- NOTE | 2022-09-02 14:29 | XR ---
EXAMINATION TYPE: XR chest 1V portable DATE OF EXAM: 09/02/2022 COMPARISON: 08/29/2022 INDICATION: Pneumonia TECHNIQUE: Single frontal view of the chest is obtained. FINDINGS: The heart size is normal. The pulmonary vasculature is normal. Mild infiltrate is above the left diaphragm. Left perihilar infiltrate has improved. Stable small foc al eventration of the right diaphragm is evident. IMPRESSION: 1. Improving left perihilar infiltrate. 2. Residual left lower lobe infiltrate. Correlate for resolving pneumonia. Continued follow-up can be performed.
[2022-09-02 16:14] LABS: Glucose,Whole Blood 157 mg/dL (70-110)
[2022-09-02] MEDS: SODIUM CHLORIDE 0.9% 1,000 ML IV SCH (16:25)
[2022-09-02 20:49] LABS: Glucose,Whole Blood 259 mg/dL (70-110)
[2022-09-02] MEDS: INSULIN DETEMIR (LEVEMIR) 100 UNIT/ML SYR SQ SCH (21:55)
[2022-09-02] MEDS: ATORVASTATIN 10 MG TAB PO SCH (21:56)
[2022-09-02] MEDS: amLODIPine 10 MG TAB PO SCH (21:56)
[2022-09-02] MEDS: PANTOPRAZOLE 40 MG TABLET PO SCH (21:56)
[2022-09-02] MEDS: ASPIRIN 81 MG PO SCH (21:56)
[2022-09-03 06:18] LABS: Glucose,Whole Blood 159 mg/dL (70-110)
[2022-09-03] MEDS: LEVOTHYROXINE 25 MCG TAB PO SCH (06:30)
[2022-09-03] MEDS: INSULIN ASPART (NovoLOG) 100 UNIT/ML VIAL SQ SCH ×4 (06:30→21:57)
[2022-09-03] MEDS: SYMBICORT 160-4.5 MCG INHALER INHALATION SCH ×2 (07:12→18:55)
[2022-09-03] MEDS: IPRATROPIUM-ALBUTEROL 3 ML NEB INHALATION SCH ×4 (07:12→18:54)
[2022-09-03] MEDS: TAMSULOSIN 0.4 MG CAP.ER.24H PO SCH (08:29)
[2022-09-03] MEDS: FERROUS SULFATE 325 MG TAB PO SCH (08:29)
[2022-09-03] MEDS: METOPROLOL TARTRATE 25 MG TAB PO SCH ×2 (08:29→21:58)
[2022-09-03] MEDS: FUROSEMIDE 40 MG TAB PO SCH ×2 (08:29→16:11)
[2022-09-03] MEDS: allopurinoL 100 MG TAB PO SCH (08:29)
[2022-09-03] MEDS: VANCOMYCIN 125 MG CAPSULE PO SCH ×4 (08:29→21:58)
[2022-09-03] MEDS: AZITHROMYCIN 500 MG TAB PO SCH (08:29)
[2022-09-03] MEDS: levETIRAcetam 500 MG TAB PO SCH ×2 (08:37→21:58)
[2022-09-03] MEDS: RIVAROXABAN 15 MG TAB PO SCH (08:37)
--- NOTE | 2022-09-03 10:35 | P.PN ---
Subjective Progress Note Date: 09/03/22 Principal diagnosis: COPD exacerbation. Pulmonary consult dated 08/30/2022. 76-year-old male brought into the emergency room, on August 29, to be evaluated for mental status changes. He apparently was found in his bed, unresponsive, by his family. EMS was called, after he did not respond to a sternal rub. Apparently EMS arrived, and found the patient's blood sugar to be approximately 30. He did received 2 ampules of dextrose, and the patient became more responsive. The patient is seen in the emergency room, room 1, and states that he's been having shortness of breath, fever, and chills, as well as cough. Currently, he is getting 2 L of oxygen, and D5 with saline, at 100 mL an hour. The patient has an extensive history of lung cancer, COPD, CVA, diabetes, DVT, GERD, hyperlipidemia, hypertension, and seizure disorder, among other things. White count 21.5, hemoglobin 10.5, hematocrit 33.1, platelet count 263,000. Sodium 138, potassium 4.6, chlorides 106, CO2 19, anion gap 13, BUN 56, and creatinine 2.25. Testing for coronavirus was negative. Chest x-ray shows a left-sided infiltrate. Progress note dated 08/31/2022. The patient was seen in consultation yesterday in the emergency room. He was initially brought him because of mental status changes. The patient was found have a very low blood glucose, by EMS, of 30. He was seen in the emergency d epartment, and is now in the ICU, room 254. Currently, he's on 2 L of oxygen. He is getting saline at 20 mL an hour. He did test positive for C. difficile colitis. The patient is stable and can be transferred out to the general medical floor without telemetry. He was admitted as an overflow patient to the ICU. White count 10.9, hemoglobin 9, hematocrit 28.6, and platelet count 290,000. Sodium 136, potassium 4.4, chlorides 107, CO2 18, BUN 49, and creatinine 2.04. Magnesium is 1.1. Progress note dated 09/01/2022. The patient is again seen in the intensive care unit, room 254. The patient's currently on room air. He is getting saline at 20 mL an hour. The patient is hoping to be discharged to fpc, such as [facility]. Clinically, he feels much better. The patient is currently on oral vancomycin for C. difficile colitis. No new laboratory data today other than a glucose of 189. We will DC the patient's Rocephin, him on Zithromax orally. Progress note dated 09/02/2022. The patient is again seen in the intensive care unit, room 254. He is resting comfortably. He is on 3 L of oxygen. He's not receiving any IV fluids. A follow-up chest x-ray is ordered. The patient will likely eventually be discharged to fpc, such as [facility]. Labs today include a sodium 132, potassium 4.3, chlorides 106, CO2 19, anion gap 7, BUN 50, creatinine 2.45. Progress note dated 09/03/2022. 76-year-old male well-known to our service. The patient has a history of lung cancer and COPD. He was seen in the intensive care unit yesterday, but was transferred out to the general medical floor. He is currently on 2 L of oxygen. He is not receiving any IV fluids. He did test positive for C. difficile colitis, and has been having frequent loose stools. He is on oral vancomycin. The patient is likely to be discharged to [facility] tomorrow. No new labs today other than a glucose of 159. He has no specific complaints today other than his diarrhea. Objective - Vital Signs Vital signs: Vital Signs Temp 98.3 F 09/03/22 00:28 Pulse 80 09/03/22 07:25 Resp 19 09/03/22 00:28 BP 127/65 09/03/22 00:28 Pulse Ox 98 09/03/22 00:28 FiO2 Intake & Output 09/02/22 09/03/22 09/03/22 18:59 06:59 18:59 Intake Total 200 Output Total 801 Balance 200 -801 Intake: Intake, IV Titration 200 Amount cefTRIAXone 1 gm In 200 Sodium Chloride 0.9% 50 ml @ 100 mls/hr IVPB Q24HR [facility] Rx#:[id number] Output: Urine 800 Stool 1 Other: Voiding Method Bedside Commode Bedside Commode Urinal Urinal Diaper # Voids 2 2 # Bowel Movements 4 - Exam No acute distress, oriented 3. Currently on 2 L nasal cannula. No audible wheezing, or use of accessory muscles. HEENT examination is grossly unremarkable. Neck supple. Full range of motion. No adenopathy thyromegaly or neck vein distention. Cardiovascular examination reveals regular rhythm rate. S1-S2 normal. No S3 or S4. No discernible murmur noted. Heart rate 76 bpm. Lungs reveal scattered bilateral rhonchi. No wheezes. No crackles. Breath sounds are equal bilaterally. Saturation is 98% on 2 L. Abdomen soft bowel sounds are heard. No masses or tenderness. Extremities are intact. No cyanosis clubbing or edema. Skin is without rash or lesion. Neurologic examination is brief but nonfocal. - Labs CBC & Chem 7: 08/31/22 08:37 09/02/22 04:14 Labs: Abnormal Lab Results - Last 24 Hours (Table) 09/02/22 09/02/22 09/03/22 Range/Units 16:12 20:48 06:16 POC Glucose (mg/dL) 157 H 259 H 159 H (70-110) mg/dL Microbiology - Last 24 Hours (Table) 08/29/22 16:25 Blood Culture - Preliminary Blood No Growth after 96 hours Assessment and Plan Assessment: Severe hypoglycemia, with mental status changes, resolved. Incidental finding of possible pneumonia, left lung, in a patient with severe COPD. History of CVA. History of diabetes mellitus. History of deep venous thrombosis. History of left upper lobectomy, 2018, and right lower lobe wedge resection, 2019, for non-small cell lung cancer. History of seizure disorder. History of hypertension. History of hyperlipidemia. History of gastroesophageal reflux disease. History of heart catheterization with stent placement. Multiple other medical problems and comorbidities. Plan: Plan dated 08/30/2022. The patient is currently on Zithromax, and Rocephin. In addition, he is on Sym bicort 160/4.5, 2 puffs twice a day. Also, the patient is on albuterol sulfate and ipratropium bromide breathing treatments, 4 times a day and when necessary. We don't feel the patient needs corticosteroids at this time. He continues on all his other usual medications. A pro-calcitonin level was ordered. Additional recommendations and suggestions are forthcoming. Prognosis is certainly guarded. Plan dated 08/31/2022. The patient appears to be doing relatively well. He is currently on az ithromycin and Rocephin. He is also getting Symbicort, an updraft treatments with albuterol sulfate and ipratropium bromide. The patient clinically looks much improved. The patient could be transferred out of the intensive care unit. Additional recommendations and suggestions are forthcoming. We will follow along and make recommendations along the way. Labs, x-rays, and medications are all reviewed. Plan dated 09/01/2022. The patient is seen in the intensive care unit. He is in room 254. The patient can be transferred out to the general medical floor, or, can be transferred to one of the local nursing homes. We DC his Rocephin. He is on oral vancomycin for his C. difficile colitis. He is on room air. He is getting saline at 20 mL an hour. We will continue to follow. Labs, x-rays, and medications are reviewed. Prognosis is guarded. Plan dated 09/02/2022. The patient remains in the intensive care unit, as an overflow patient. We will order a follow-up chest x-ray, to check out the pneumonia in the left lung. The patient's currently on 3 L. He is being treated with oral vancomycin for C. difficile colitis, and also receiving azithromycin. Additional recommendations and suggestions are forthcoming. Prognosis is guarded. He likely will be discharged to a rehab facility or fpc. Plan dated 09/03/2022. The patient was transferred out of the intensive care unit yesterday. The patient is now in room 460. The patient is on 2 L of oxygen. Saturations are excellent. He is not receiving any IV fluids. He continues on Zithromax for his pneumonia. In addition, he is on oral vancomycin for C. difficile colitis. Labs, x-rays, and medications are reviewed. The patient is hoping to be discharged to [facility] tomorrow. Overall prognosis remains guarded. Time with Patient: Less than 30
[2022-09-03 11:16] LABS: African American GFR (CKD) 27.3 (60.0-200.0); Anion Gap 9.8 mmol/L (10.00-18.00); BUN/Creat Ratio 19.69 Ratio (12.00-20.00); Blood Urea Nitrogen 50.4 mg/dL (9.0-27.0); Calcium 7.7 mg/dL (8.7-10.3); Carbon Dioxide 18.8 mmol/L (20.0-27.5); Magnesium 1.5 mg/dL (1.5-2.4); Non-African American GFR(CKD) 23.5 (60.0-200.0); Potassium 4.3 mmol/L (3.5-5.5)
[2022-09-03 11:43] LABS: Glucose,Whole Blood 289 mg/dL (70-110)
--- NOTE | 2022-09-03 12:07 | P.PN ---
Subjective Progress Note Date: 09/03/22 Principal diagnosis: Unresponsiveness Hospital Course: 76-year-old male with an extensive PMH including history of DVT on Xarelto, chronic kidney disease, type II DM, hypertension, hyperlipidemia, COPD, hypothyroidism who was brought into the emergency room for unresponsiveness. He was found to be hypoglycemic, mental status improved with IV dextrose. Also found to have left mid and lower lung pneumonia. Currently on IV antibiotics. Patient also had multiple loose bowel movements, C. diff positive, started on oral vancomycin. Patient will likely need rehab. Subjective: Patient seen and examined at bedside. No acute events overnight. He claims that her shortness of breath is improving , now on room air. He denies any chest pain, shortness of breath, abdominal pain, urinary complaints. Number of bowel movements have decreased but still ongoing. Pertinent positives and negatives as discussed above, a complete review of systems was performed and all other systems are negative. Vitals Signs Reviewed. General: nontoxic, no distress, appears at stated age Derm: warm, dry Head: atraumatic, normocephalic, symmetric Eyes: EOMI, no lid lag, anicteric sclera Mouth: no lip lesion, mucus membranes moist Cardiovascular: S1S2 reg, no murmur Lungs: CTA bilateral, no rhonchi, no rales , no accessory muscle use, 3 L nasal cannula Abdominal: soft, nontender to palpation, no guarding, no appreciable organomegaly Ext: no gross muscle atrophy, trace peripheral edema, no contractures Neuro: CN II-XI grossly intact, no focal neuro deficits Psych: Alert, oriented, appropriate affect Assessment and Plan: Severe sepsis secondary to community acquired pneumonia and C. diff colitis -off oxygen -Seen by pulmonology, only on azithromycin -Blood cultures pending - no growth to date -On oral vancomycin, will likely need additional 7 days after last day of azithromycin -Number of bowel movements have decreased Acute encephalopathy -unresponsiveness - resolved Hypoglycemia - resolved -on insulin Lactic acidosis -Resolved Chronic conditions: History of DVT,chronic kidney disease, hypertension, hyperlipidemia, COPD, hypothyroidism -Continue with home meds DVT prophylaxis -Xarelto Full code Discharge date: 09/[address]: Patient will likely benefit from rehab, likely discharge on Sunday Objective - Vital Signs Vital signs: Vital Signs Temp 97.4 F L 09/03/22 08:00 Pulse 90 09/03/22 11:23 Resp 18 09/03/22 08:00 BP 117/64 09/03/22 08:00 Pulse Ox 98 09/03/22 08:00 FiO2 Intake & Output 09/02/22 09/03/22 09/03/22 18:59 06:59 18:59 Intake Total 200 Output Total 801 Balance 200 -801 Intake: Intake, IV Titration 200 Amount cefTRIAXone 1 gm In 200 Sodium Chloride 0.9% 50 ml @ 100 mls/hr IVPB Q24HR [facility] Rx#:[id number] Output: Urine 800 Stool 1 Other: Voiding Method Bedside Commode Bedside Commode Urinal Urinal Diaper # Voids 2 2 # Bowel Movements 4 - Labs CBC & Chem 7: 08/31/22 08:37 09/03/22 04:14 Labs: Abnormal Lab Results - Last 24 Hours (Table) 09/02/22 09/02/22 09/03/22 Range/Units 16:12 20:48 04:14 Sodium 133 L (135-145) mmol/L Carbon Dioxide 18.8 L (20.0-27.5) mmol/L Anion Gap 9.80 L (10.00-18.00) mmol/L BUN 50.4 H (9.0-27.0) mg/dL Creatinine 2.6 H (0.6-1.5) mg/dL Est GFR (CKD-EPI)AfAm 27.3 L (60.0-200.0) Est GFR (CKD-EPI)NonAf 23.5 L (60.0-200.0) Glucose 158 H (70-110) mg/dL POC Glucose (mg/dL) 157 H 259 H (70-110) mg/dL Calcium 7.7 L (8.7-10.3) mg/dL 09/03/22 09/03/22 Range/Units 06:16 11:41 Sodium (135-145) mmol/L Carbon Dioxide (20.0-27.5) mmol/L Anion Gap (10.00-18.00) mmol/L BUN (9.0-27.0) mg/dL Creatinine (0.6-1.5) mg/dL Est GFR (CKD-EPI)AfAm (60.0-200.0) Est GFR (CKD-EPI)NonAf (60.0-200.0) Glucose (70-110) mg/dL POC Glucose (mg/dL) 159 H 289 H (70-110) mg/dL Calcium (8.7-10.3) mg/dL Microbiology - Last 24 Hours (Table) 08/29/22 16:25 Blood Culture - Preliminary Blood No Growth after 96 hours
[2022-09-03 16:28] LABS: Glucose,Whole Blood 263 mg/dL (70-110)
[2022-09-03 21:05] LABS: Glucose,Whole Blood 301 mg/dL (70-110)
[2022-09-03] MEDS: PANTOPRAZOLE 40 MG TABLET PO SCH (21:58)
[2022-09-03] MEDS: ASPIRIN 81 MG PO SCH (21:58)
[2022-09-03] MEDS: amLODIPine 10 MG TAB PO SCH (21:58)
[2022-09-03] MEDS: ATORVASTATIN 10 MG TAB PO SCH (21:58)
[2022-09-03] MEDS: INSULIN DETEMIR (LEVEMIR) 100 UNIT/ML SYR SQ SCH (21:58)
[2022-09-04 06:26] LABS: Glucose,Whole Blood 216 mg/dL (70-110)
[2022-09-04] MEDS: LEVOTHYROXINE 25 MCG TAB PO SCH ×2 (06:49→09:54)
[2022-09-04] MEDS: INSULIN ASPART (NovoLOG) 100 UNIT/ML VIAL SQ SCH ×4 (06:49→16:39)
[2022-09-04 08:56] LABS: Glucose,Whole Blood 223 mg/dL (70-110)
[2022-09-04] MEDS: IPRATROPIUM-ALBUTEROL 3 ML NEB INHALATION SCH ×3 (09:01→16:46)
[2022-09-04] MEDS: SYMBICORT 160-4.5 MCG INHALER INHALATION SCH (09:01)
[2022-09-04] MEDS: METOPROLOL TARTRATE 25 MG TAB PO SCH (09:54)
[2022-09-04] MEDS: FERROUS SULFATE 325 MG TAB PO SCH (09:54)
[2022-09-04] MEDS: allopurinoL 100 MG TAB PO SCH (09:54)
[2022-09-04] MEDS: TAMSULOSIN 0.4 MG CAP.ER.24H PO SCH (09:54)
[2022-09-04] MEDS: FUROSEMIDE 40 MG TAB PO SCH ×2 (09:55→15:42)
[2022-09-04] MEDS: AZITHROMYCIN 500 MG TAB PO SCH (09:55)
[2022-09-04] MEDS: VANCOMYCIN 125 MG CAPSULE PO SCH ×3 (09:56→17:00)
[2022-09-04] MEDS: RIVAROXABAN 15 MG TAB PO SCH (09:56)
[2022-09-04] MEDS: levETIRAcetam 500 MG TAB PO SCH (09:56)
--- NOTE | 2022-09-04 11:17 | P.PN ---
Subjective Progress Note Date: 09/04/22 Principal diagnosis: Unresponsiveness Hospital Course: 76-year-old male with an extensive PMH including history of DVT on Xarelto, chronic kidney disease, type II DM, hypertension, hyperlipidemia, COPD, hypothyroidism who was brought into the emergency room for unresponsiveness. He was found to be hypoglycemic, mental status improved with IV dextrose. Also found to have left mid and lower lung pneumonia. Completed IV antibiotics. Patient also had multiple loose bowel movements, C. diff positive, started on oral vancomycin. Patient will likely need rehab. Subjective: Patient seen and examined at bedside. No acute events overnight. He claims th at her shortness of breath is improving , now on room air. He denies any chest pain, shortness of breath, abdominal pain, urinary complaints. Number of bowel movements have decreased. Pertinent positives and negatives as discussed above, a complete review of systems was performed and all other systems are negative. Vitals Signs Reviewed. General: nontoxic, no distress, appears at stated age Derm: warm, dry Head: atraumatic, normocephalic, symmetric Eyes: EOMI, no lid lag, anicteric sclera Mouth: no lip lesion, mucus membranes moist Cardiovascular: S1S2 reg, no murmur Lungs: CTA bilateral, no rhonchi, no rales , no accessory muscle use, room air Abdominal: soft, nontender to palpation, no guarding, no appreciable organomegaly Ext: no gross muscle atrophy, trace peripheral edema, no contractures Neuro: CN II-XI grossly intact, no focal neuro deficits Psych: Alert, oriented, appropriate affect Assessment and Plan: Severe sepsis secondary to community acquired pneumonia and C. diff colitis -off oxygen -Seen by pulmonology, completed course of IV antibiotics -Blood cultures pending - no growth to date -On oral vancomycin, will likely need additional 7 days after last day of azithromycin -Number of bowel movements have decreased Acute encephalopathy -unresponsiveness - resolved Hypoglycemia - resolved -on insulin Lactic acidosis -Resolved Chronic conditions: History of DVT,chronic kidney disease, hypertension, hyperlipidemia, COPD, hypothyroidism -Continue with home meds DVT prophylaxis -Xarelto Full code Discharge date: 09/[address]: Patient will likely benefit from rehab, possibly discharge today Objective - Vital Signs Vital signs: Vital Signs Temp 98.7 F 09/04/22 07:51 Pulse 83 09/04/22 07:51 Resp 17 09/04/22 07:51 BP 117/49 09/04/22 07:51 Pulse Ox 96 09/04/22 09:01 FiO2 Intake & Output 09/03/22 09/04/22 09/04/22 18:59 06:59 18:59 Intake Total 1080 Output Total 3 1351 Balance 1077 -1351 Intake: Oral 1080 Output: Urine 3 1350 Stool 1 Other: Voiding Method Bedside Commode Bedside Commode Urinal Urinal # Bowel Movements 5 1 - Labs CBC & Chem 7: 08/31/22 08:37 09/03/22 04:14 Labs: Abnormal Lab Results - Last 24 Hours (Table) 09/02/22 09/03/22 09/03/22 Range/Units 11:32 04:14 11:41 Sodium 133 L (135-145) mmol/L Carbon Dioxide 18.8 L (20.0-27.5) mmol/L Anion Gap 9.80 L (10.00-18.00) mmol/L BUN 50.4 H (9.0-27.0) mg/dL Creatinine 2.6 H (0.6-1.5) mg/dL Est GFR (CKD-EPI)AfAm 27.3 L (60.0-200.0) Est GFR (CKD-EPI)NonAf 23.5 L (60.0-200.0) Glucose 158 H (70-110) mg/dL POC Glucose (mg/dL) 223 H 289 H (70-110) mg/dL Calcium 7.7 L (8.7-10.3) mg/dL 09/03/22 09/03/22 09/04/22 Range/Units 16:26 21:04 06:25 Sodium (135-145) mmol/L Carbon Dioxide (20.0-27.5) mmol/L Anion Gap (10.00-18.00) mmol/L BUN (9.0-27.0) mg/dL Creatinine (0.6-1.5) mg/dL Est GFR (CKD-EPI)AfAm (60.0-200.0) Est GFR (CKD-EPI)NonAf (60.0-200.0) Glucose (70-110) mg/dL POC Glucose (mg/dL) 263 H 301 H 216 H (70-110) mg/dL Calcium (8.7-10.3) mg/dL Microbiology - Last 24 Hours (Table) 08/29/22 16:25 Blood Culture - Preliminary Blood No Growth after 120 hours
[2022-09-04 11:28] LABS: Glucose,Whole Blood 181 mg/dL (70-110)
--- NOTE | 2022-09-04 14:10 | P.PN ---
Subjective Progress Note Date: 09/04/22 76-year-old male brought into the emergency room, on August 29, to be evaluated for mental status changes. He apparently was found in his bed, unresponsive, by his family. EMS was called, after he did not respond to a sternal rub. Apparently EMS arrived, and found the patient's blood sugar to be approximately 30. He did received 2 ampules of dextrose, and the patient became more responsive. The patient is seen in the emergency room, room 1, and states that he's been having shortness of breath, fever, and chills, as well as cough. Currently, he is getting 2 L of oxygen, and D5 with saline, at 100 mL an hour. The patient has an extensive history of lung cancer, COPD, CVA, diabetes, DVT, GERD, hyperlipidemia, hypertension, and seizure disorder, among other things. White count 21.5, hemoglobin 10.5, hematocrit 33.1, platelet count 263,000. Sodium 138, potassium 4.6, chlorides 106, CO2 19, anion gap 13, BUN 56, and creatinine 2.25. Testing for coronavirus was negative. Chest x-ray shows a left-sided infiltrate. Progress note dated 08/31/2022. The patient was seen in consultation yesterday in the emergency room. He was initially brought him because of mental status changes. The patient was found have a very low blood glucose, by EMS, of 30. He was seen in the emergency dep artment, and is now in the ICU, room 254. Currently, he's on 2 L of oxygen. He is getting saline at 20 mL an hour. He did test positive for C. difficile colitis. The patient is stable and can be transferred out to the general medical floor without telemetry. He was admitted as an overflow patient to the ICU. White count 10.9, hemoglobin 9, hematocrit 28.6, and platelet count 290,000. Sodium 136, potassium 4.4, chlorides 107, CO2 18, BUN 49, and creatinine 2.04. Magnesium is 1.1. Progress note dated 09/01/2022. The patient is again seen in the intensive care unit, room 254. The patient's currently on room air. He is getting saline at 20 mL an hour. The patient is hoping to be discharged to longterm, such as [facility] [place]. Clinically, he feels much better. The patient is currently on oral vancomycin for C. difficile colitis. No new laboratory data today other than a glucose of 189. We will DC the patient's Rocephin, him on Zithromax orally. Progress note dated 09/02/2022. The patient is again seen in the intensive care unit, room 254. He is resting comfortably. He is on 3 L of oxygen. He's not receiving any IV fluids. A follow-up chest x-ray is ordered. The patient will likely eventually be discharged to longterm, such as [facility] [place]. Labs today include a sodium 132, potassium 4.3, chlorides 106, CO2 19, anion gap 7, BUN 50, creatinine 2.45. Progress note dated 09/03/2022. 76-year-old male well-known to our service. The patient has a history of lung cancer and COPD. He was seen in the intensive care unit yesterday, but was transferred out to the general medical floor. He is currently on 2 L of oxygen. He is not receiving any IV fluids. He did test positive for C. difficile colitis, and has been having frequent loose stools. He is on oral vancomycin. The patient is likely to be discharged to [facility] longterm tomorrow. No new labs today other than a glucose of 159. He has no specific complaints today other than his diarrhea. On today's evaluation of 09/04/2022, the patient is being seen on the medical floor. The patient is known to have history of COPD and lung cancer. He was in intensive care unit for hypoglycemia and he was also having diarrhea secondary to C. diff. The patient was having frequent stools and he still having significant amount of liquidy stools. He remains on oral vancomycin. The patient otherwise is afebrile. No nausea. No emesis. No abdominal pain. He is on antibiotics and currently is on oral vancomycin and oral Zithromax. He remains on long-term and coagulation with that also. At the same time, the patient is on Symbicort as maintenance, DuoNeb nebulizer treatments [id number], he is on Levemir insulin 20 units daily and a sliding scale coverage. No further episodes of hypoglycemia this point in time. No other issues for now. Plan is to transfer this patient to [facility] Objective - Vital Signs Vital signs: Vital Signs Temp 98.7 F 09/04/22 07:51 Pulse 70 09/04/22 12:39 Resp 17 09/04/22 07:51 BP 117/49 09/04/22 07:51 Pulse Ox 96 09/04/22 09:01 FiO2 Intake & Output 09/03/22 09/04/22 09/04/22 18:59 06:59 18:59 Intake Total 1080 Output Total 3 1351 Balance 1077 -1351 Intake: Oral 1080 Output: Urine 3 1350 Stool 1 Other: Voiding Method Bedside Commode Bedside Commode Urinal Urinal # Bowel Movements 5 1 - Exam No acute distress, oriented 3. Currently on RA. No audible wheezing, or use of accessory muscles. HEENT examination is grossly unremarkable. Neck supple. Full range of motion. No adenopathy thyromegaly or neck vein distention. Cardiovascular examination reveals regular rhythm rate. S1-S2 normal. No S3 or S4. No discernible murmur noted. Heart rate 76 bpm. Lungs reveal scattered bilateral rhonchi. No wheezes. No crackles. Breath sounds are equal bilaterally. Saturation is 98% on 2 L. Abdomen soft bowel sounds are heard. No masses or tenderness. Extremities are intact. No cyanosis clubbing or edema. Skin is without rash or lesion. Neurologic examination is brief but nonfocal. - Labs CBC & Chem 7: 08/31/22 08:37 09/03/22 04:14 Labs: Abnormal Lab Results - Last 24 Hours (Table) 09/02/22 09/03/22 09/03/22 Range/Units 11:32 16:26 21:04 POC Glucose (mg/dL) 223 H 263 H 301 H (70-110) mg/dL 09/04/22 09/04/22 Range/Units 06:25 11:27 POC Glucose (mg/dL) 216 H 181 H (70-110) mg/dL Microbiology - Last 24 Hours (Table) 08/29/22 16:25 Blood Culture - Preliminary Blood No Growth after 120 hours Assessment and Plan Plan: Severe hypoglycemia, with mental status changes, resolved. Incidental finding of possible pneumonia, left lung, in a patient with severe COPD, treated and the patient is currently on room air oxygen C. diff colitis currently onby mouth vancomycin History of CVA. History of diabetes mellitus. History of deep venous thrombosis. History of left upper lobectomy, 2018, and right lower lobe wedge resection, 2019, for non-small cell lung cancer. History of seizure disorder. History of hypertension. History of hyperlipidemia. History of gastroesophageal reflux disease. History of heart catheterization with stent placement. Multiple other medical problems and comorbidities. Plan: Discontinue Zithromax Continue oral vancomycin IV fluids to resuscitate the patient's fluid loss from diarrhea Continue rest of the medications and keep them unchanged Possible discharge to longterm
--- NOTE | 2022-09-04 14:11 | P.DS ---
Providers Date of admission: 08/29/22 18:27 Expected date of discharge: 09/04/22 Attending physician: Regina Barrientos MD Primary care physician: Renzo Boyer Hospital Course: Discharge diagnoses: Severe Sepsis Community acquired pneumonia C. diff colitis Acute encephalopathy Diabetes Mellitis Hypoglycemia Lactic acidosis Hospital Course: 76-year-old male with an extensive PMH including history of DVT on Xarelto, chronic kidney disease, type II DM, hypertension, hyperlipidemia, COPD, hypothyroidism who was brought into the emergency room for unresponsiveness. He was found to be hypoglycemic, mental status improved with IV dextrose. Also found to have left mid and lower lung pneumonia. Completed IV antibiotics. Patient also had multiple loose bowel movements, C. diff positive, started on oral vancomycin. He will continue PO vancomycin for another 7 days. During the course of his stay, he was also seen by pulmonology. Lactic acidosis resolved with fluids. At discharge, patient was on room air. Vitals Signs Reviewed. General: nontoxic, no distress, appears at stated age Derm: warm, dry Head: atraumatic, normocephalic, symmetric Eyes: EOMI, no lid lag, anicteric sclera Mouth: no lip lesion, mucus membranes moist Cardiovascular: S1S2 reg, no murmur Lungs: CTA bilateral, no rhonchi, no rales , no accessory muscle use, room air Abdominal: soft, nontender to palpation, no guarding, no appreciable organomegaly Ext: no gross muscle atrophy, trace peripheral edema, no contractures Neuro: CN II-XI grossly intact, no focal neuro deficits Psych: Alert, oriented, appropriate affect Patient Condition at Discharge: Stable Plan - Discharge Summary New Discharge Prescriptions: No Action amLODIPine [Norvasc] 10 mg PO HS Metoprolol Tartrate 25 mg PO BID #60 tab Omeprazole 20 mg PO HS Rivaroxaban [Xarelto] 15 mg PO DAILY Solifenacin Succinate [Vesicare] 10 mg PO HS Aspirin [Adult Low Dose Aspirin EC] 81 mg PO HS Ferrous Sulfate [Iron (65 MG Elemental)] 325 mg PO DAILY traZODone HCL [Desyrel] 50 - 100 mg PO HS HYDROcodone/APAP 7.5-325MG [Bruno 7.5-325] 1 tab PO QID PRN PRN Reason: Pain Furosemide [Lasix] 40 mg PO BID Ipratropium-Albuterol Nebulize [Duoneb 0.5 mg-3 mg/3 ml Soln] 3 ml INHALATION RT-QID Insulin Aspart [NovoLOG Flexpen] See Protocol SQ AC-TID allopurinoL [Zyloprim] 100 mg PO DAILY Levothyroxine Sodium [Synthroid] 25 mcg PO DAILY Insulin Degludec [Tresiba Flextouch U-100 Pen] 12 units SQ HS levETIRAcetam [Keppra] 500 mg PO BID Simvastatin [Zocor] 20 mg PO HS Tamsulosin [Flomax] 0.4 mg PO DAILY Budesonide/Formoterol Fumarate [Symbicort 160-4.5 Mcg Inhaler] 2 puff INHALATION RT-BID Albuterol Inhaler [Ventolin Hfa Inhaler] 2 puff INHALATION RT-Q6H PRN PRN Reason: Shortness Of Breath Discharge Medication List amLODIPine [Norvasc] 10 mg PO HS 07/30/19 [History] Metoprolol Tartrate 25 mg PO BID #60 tab 09/10/19 [Rx] Omeprazole 20 mg PO HS 07/06/20 [History] Rivaroxaban [Xarelto] 15 mg PO DAILY 01/12/21 [History] Solifenacin Succinate [Vesicare] 10 mg PO HS 01/12/21 [History] Furosemide [Lasix] 40 mg PO BID 06/03/21 [History] Ipratropium-Albuterol Nebulize [Duoneb 0.5 mg-3 mg/3 ml Soln] 3 ml INHALATION RT-QID 10/14/21 [History] Aspirin [Adult Low Dose Aspirin EC] 81 mg PO HS 02/27/22 [History] Insulin Aspart [NovoLOG Flexpen] See Protocol SQ AC-TID 02/27/22 [History] Levothyroxine Sodium [Synthroid] 25 mcg PO DAILY 06/12/22 [History] allopurinoL [Zyloprim] 100 mg PO DAILY 06/12/22 [History] Ferrous Sulfate [Iron (65 MG Elemental)] 325 mg PO DAILY 07/06/22 [History] Insulin Degludec [Tresiba Flextouch U-100 Pen] 12 units SQ HS 07/06/22 [History] Simvastatin [Zocor] 20 mg PO HS 07/06/22 [History] levETIRAcetam [Keppra] 500 mg PO BID 07/06/22 [History] Albuterol Inhaler [Ventolin Hfa Inhaler] 2 puff INHALATION RT-Q6H PRN 08/29/22 [History] Budesonide/Formoterol Fumarate [Symbicort 160-4.5 Mcg Inhaler] 2 puff INHALATION RT-BID 08/29/22 [History] HYDROcodone/APAP 7.5-325MG [Bruno 7.5-325] 1 tab PO QID PRN 08/29/22 [History] Tamsulosin [Flomax] 0.4 mg PO DAILY 08/29/22 [History] traZODone HCL [Desyrel] 50 - 100 mg PO HS 08/29/22 [History] Follow up Appointment(s)/Referral(s): Renzo Boyer MD [Primary Care Provider] - 1-2 days
[2022-09-04 14:20] VITALS: BP 114/62; PULSE 73; RESP 18; TEMP 97.5
[2022-09-04 16:27] LABS: Glucose,Whole Blood 149 mg/dL (70-110)
== END 2022-09-04 17:33 | DRG 871 ==
LOC: EC 13:36 → 4SSUR 18:27 → 2SICU 08-30 15:34 → 4SSUR 09-02 15:15
PROVIDERS: ADMIT Family Medicine; ATTEND Family Medicine
PROC: 3E0F7SF Introduction of Other Gas into Respiratory Tract, Via Natural or Artificial Opening (ICD-10-PCS; principal; 2022-08-30)
DX: A41.9 Sepsis, unspecified organism (principal); G93.41 Metabolic encephalopathy; J18.9 Pneumonia, unspecified organism; A04.72 Enterocolitis due to Clostridium difficile, not specified as recurrent; E87.20 Acidosis, unspecified; J44.0 Chronic obstructive pulmonary disease with (acute) lower respiratory infection; J44.1 Chronic obstructive pulmonary disease with (acute) exacerbation; Z20.822 Contact with and (suspected) exposure to COVID-19; I10 Essential (primary) hypertension; E78.5 Hyperlipidemia, unspecified; E03.9 Hypothyroidism, unspecified; E10.22 Type 1 diabetes mellitus with diabetic chronic kidney disease; I12.9 Hypertensive chronic kidney disease with stage 1 through stage 4 chronic kidney disease, or unspecified chronic kidney disease; N18.30 Chronic kidney disease, stage 3 unspecified; R65.20 Severe sepsis without septic shock; E10.649 Type 1 diabetes mellitus with hypoglycemia without coma; G40.909 Epilepsy, unspecified, not intractable, without status epilepticus; I25.2 Old myocardial infarction; N40.0 Benign prostatic hyperplasia without lower urinary tract symptoms; Y92.009 Unspecified place in unspecified non-institutional (private) residence as the place of occurrence of the external cause; Z79.01 Long term (current) use of anticoagulants; Z79.4 Long term (current) use of insulin; Z79.51 Long term (current) use of inhaled steroids; Z79.82 Long term (current) use of aspirin; G89.29 Other chronic pain; Z79.890 Hormone replacement therapy; Z79.899 Other long term (current) drug therapy; Z85.118 Personal history of other malignant neoplasm of bronchus and lung; Z86.718 Personal history of other venous thrombosis and embolism; Z86.73 Personal history of transient ischemic attack (TIA), and cerebral infarction without residual deficits; Z87.891 Personal history of nicotine dependence; Z90.2 Acquired absence of lung [part of]; K21.9 Gastro-esophageal reflux disease without esophagitis; I65.29 Occlusion and stenosis of unspecified carotid artery; Z98.42 Cataract extraction status, left eye; Z98.41 Cataract extraction status, right eye; Z90.49 Acquired absence of other specified parts of digestive tract; Z87.19 Personal history of other diseases of the digestive system
CPT/HCPCS: 36415; 71045; 80048; 81001; 83605; 83735; 84145; 85025; 87040; 87324; 87635; 93005; 94640; 94760; 96361; 96365; 96366; 96374; 99284

== ENCOUNTER 2022-09-13 20:48 | Emergency (ER) | payer MEDICARE, OTHER ==
--- NOTE | 2022-09-13 21:20 | ED ---
General Adult HPI - General Chief complaint: Recheck/Abnormal Lab/Rx Stated complaint: Low hemoglobin Time Seen by Provider: 09/13/22 21:05 Source: EMS Mode of arrival: EMS Limitations: no limitations - History of Present Illness Initial comments: This patient is a 76-year-old man sent here from [facility] after he was reportedly found to have low hemoglobin. The patient reports seeing some blood with bowel movements going back 3 days. He also states that he takes Xarelto. The chart notes that he was recently treated for Clostridium difficile, and the patient states he is still having somewhat softer bowel movements. He has not noted fever or chills. No abdominal or perianal pain. No vomiting or hematemesis. He did have some mild nausea during the transportation here. No chest pain. Patient states that he does feel like his COPD is flaring up a little bit he feels a little short of breath. He has had occasional nonproductive cough. He denies chest pain, diaphoresis, palpitations or syncope. Onset/Timin -: days(s) Severity scale (1-10): 0 Improves with: none Worsens with: none Associated Symptoms: cough, shortness of breath Treatments Prior to Arrival: none - Related Data Home Medications Medication Instructions Recorded Confirmed amLODIPine [Norvasc] 10 mg PO HS 07/30/19 09/13/22 Omeprazole 20 mg PO HS 07/06/20 09/13/22 Rivaroxaban [Xarelto] 15 mg PO DAILY 01/12/21 09/13/22 Solifenacin Succinate [Vesicare] 10 mg PO HS 01/12/21 09/13/22 Furosemide [Lasix] 40 mg PO BID@0600,1400 06/03/21 09/13/22 Ipratropium-Albuterol Nebulize 3 ml INHALATION RT-QID 10/14/21 09/13/22 [Duoneb 0.5 mg-3 mg/3 ml Soln] Aspirin [Adult Low Dose Aspirin EC] 81 mg PO HS 02/27/22 09/13/22 Insulin Aspart [NovoLOG Flexpen] See Protocol SQ AC-TID 02/27/22 09/13/22 Levothyroxine Sodium [Synthroid] 25 mcg PO DAILY@0600 06/12/22 09/13/22 allopurinoL [Zyloprim] 100 mg PO DAILY 06/12/22 09/13/22 Ferrous Sulfate [Iron (65 MG 325 mg PO DAILY 07/06/22 09/13/22 Elemental)] Simvastatin [Zocor] 20 mg PO HS 07/06/22 09/13/22 levETIRAcetam [Keppra] 500 mg PO BID 07/06/22 09/13/22 Albuterol Inhaler [Ventolin Hfa 2 puff INHALATION RT-Q6H PRN 08/29/22 09/13/22 Inhaler] Budesonide/Formoterol Fumarate 2 puff INHALATION RT-BID@0800,1700 08/29/22 09/13/22 [Symbicort 160-4.5 Mcg Inhaler] Tamsulosin [Flomax] 0.4 mg PO DAILY 08/29/22 09/13/22 HYDROcodone/APAP 5-325MG [[place] 1 tab PO Q8H PRN 09/13/22 09/13/22 5-325] Magnesium Hydroxide [Milk of 7,200 mg PO Q48H PRN 09/13/22 09/13/22 Magnesia Concentrate] Metoprolol Tartrate 25 mg PO BID@0800,1700 09/13/22 09/13/22 Na Phos,M-B/Na Phos,Di-Ba [Fleet 133 ml RECTAL DAILY PRN 09/13/22 09/13/22 Adult] bisacodyL [Dulcolax] 10 mg RECTAL DAILY PRN 09/13/22 09/13/22 Allergies Allergy/AdvReac Type Severity Reaction Status Date / Time No Known Allergies Allergy Verified 09/13/22 22:00 Review of Systems ROS Statement: Those systems with pertinent positive or pertinent negative responses have been documented in the HPI. ROS Other: All systems not noted in ROS Statement are negative. Constitutional: Denies: fever, chills, weakness Respiratory: Reports: as per HPI, cough, dyspnea. Denies: hemoptysis Cardiovascular: Denies: chest pain, palpitations, orthopnea, syncope Gastrointestinal: Reports: nausea, diarrhea, hematochezia. Denies: abdominal pain, vomiting, constipation, hematemesis, melena Genitourinary: Denies: dysuria, hematuria Musculoskeletal: Denies: back pain Skin: Denies: rash Neurological: Denies: headache, weakness Past Medical History Past Medical History: Cancer, COPD, CVA/TIA, Diabetes Mellitus, Deep Vein Thrombosis (DVT), GERD/Reflux, Hyperlipidemia, Hypertension, Renal Disease, Seizure Disorder, Thyroid Disorder Additional Past Medical History / Comment(s): 07/2018 L lung cancer with left upper lobectomy., R lower lobe cancer in August 2019 and had wedge resection and immunotherapy., bronchitis, TIA and seizure after bronchoscopy in 2018, DVT L leg, IDDM type II, chronic cervical/back pain, BPH, stage III kidney disease, chronic constipation ., dysphagia with wt loss., states spot on spine L-3., states he thinks he has a sore on his INNER THIGH ., hx of carotid stenosis with stent 06/03/2021. Last Myocardial Infarction Date:: 05/24/12 History of Any Multi-Drug Resistant Organisms: None Reported Past Surgical History: Back Surgery, Cholecystectomy, Heart Catheterization, Heart Catheterization With Stent, Hernia Repair, Tonsillectomy Additional Past Surgical History / Comment(s): 2018 Bronchoscopy with bx, 2017 L upper lobectomy at [facility], August 2019 R lower lung wedge resection, low back surgery, umbilical hernia repair, bilateral cataract removals ., right transcarotid artery revasculazation with stent May 2021, COLONOSCOPY Past Anesthesia/Blood Transfusion Reactions: Previous Problems w/ Anesthesia Additional Past Anesthesia/Blood Transfusion Reaction / Comment(s): Seizure and mini stroke following lung biopsy Date of Last Stent Placement:: 06/03/2021-CAROTID STENT Past Psychological History: No Psychological Hx Reported Smoking Status: Former smoker Past Alcohol Use History: None Reported Past Drug Use History: None Reported - Past Family History Mother Family Medical History: No Reported History Additional Family Medical History / Comment(s): Mother was healthy Father Family Medical History: Diabetes Mellitus, Deep Vein Thrombosis (DVT) Additional Family Medical History / Comment(s): Father of diabetes at the age of 83 yrs. General Exam Limitations: no limitations General appearance: alert, in no apparent distress Head exam: Present: atraumatic, normocephalic Eye exam: Present: normal appearance. Absent: scleral icterus, conjunctival injection ENT exam: Present: mucous membranes moist, other (Mucosal pallor) Neck exam: Present: normal inspection Respiratory exam: Present: normal lung sounds bilaterally, wheezes. Absent: respiratory distress, rales, rhonchi, stridor Cardiovascular Exam: Present: regular rate, normal rhythm, normal heart sounds. Absent: systolic murmur, diastolic murmur, rubs, gallop GI/Abdominal exam: Present: soft. Absent: distended, tenderness, guarding, rebound, rigid, mass, pulsatile mass Rectal exam: Present: normal inspection, normal rectal tone, black stool. Absent: hemorrhoids, mass, tenderness Extremities exam: Present: normal inspection, normal capillary refill, pedal edema (There is mild bilateral ankle edema). Absent: calf tenderness Back exam: Present: normal inspection Neurological exam: Present: alert Skin exam: Present: warm, dry, intact, pallor. Absent: rash Course Vital Signs 09/13/22 09/13/22 09/13/22 20:52 22:14 22:41 Temperature 97.4 F L Pulse Rate 78 69 71 Respiratory 16 20 Rate Blood Pressure 111/58 97/57 O2 Sat by Pulse 98 95 Oximetry 09/13/22 09/13/22 09/14/22 22:51 23:30 00:25 Temperature 97.2 F L Pulse Rate 69 71 75 Respiratory 16 20 Rate Blood Pressure 102/50 103/91 O2 Sat by Pulse 92 L Oximetry 09/14/22 09/14/22 09/14/22 00:40 01:00 02:55 Temperature 97.6 F 97.6 F 97.8 F Pulse Rate 72 74 72 Respiratory 18 18 18 Rate Blood Pressure 110/73 116/76 126/61 O2 Sat by Pulse 91 L 91 L 91 L Oximetry EKG Findings - EKG Results: EKG: interpreted by ERMD, sinus rhythm (Rate 77 bpm), normal axis Medical Decision Making - Medical Decision Making Patient is 76-year-old man presenting with GI bleeding and symptomatic anemia. Given his dyspnea he is transfused. There is no GI coverage here therefore had discussion with patient and he requests to go to [facility]. I spoke with the transfer team and Dr. Alfaro will accept transfer. - Lab Data Result diagrams: 09/13/22 20:53 09/13/22 20:53 Lab Results 09/13/22 09/13/22 09/13/22 Range/Units 20:53 20:53 20:53 WBC 7.0 (3.8-10.6) k/uL RBC 2.53 L (4.30-5.90) m/uL Hgb 7.3 L (13.0-17.5) gm/dL Hct 23.2 L (39.0-53.0) % MCV 91.8 (80.0-100.0) fL MCH 28.8 (25.0-35.0) pg MCHC 31.4 (31.0-37.0) g/dL RDW 17.0 H (11.5-15.5) % Plt Count 284 (150-450) k/uL MPV 7.5 Neutrophils % 63 % Lymphocytes % 28 % Monocytes % 5 % Eosinophils % 2 % Basophils % 0 % Neutrophils # 4.4 (1.3-7.7) k/uL Lymphocytes # 1.9 (1.0-4.8) k/uL Monocytes # 0.4 (0-1.0) k/uL Eosinophils # 0.1 (0-0.7) k/uL Basophils # 0.0 (0-0.2) k/uL Hypochromasia Marked Anisocytosis Slight Sodium 139 (137-145) mmol/L Potassium 4.6 (3.5-5.1) mmol/L Chloride 111 H (98-107) mmol/L Carbon Dioxide 22 (22-30) mmol/L Anion Gap 6 mmol/L BUN 39 H (9-20) mg/dL Creatinine 2.46 H (0.66-1.25) mg/dL Est GFR (CKD-EPI)AfAm 29 (>60 ml/min/1.73 sqM) Est GFR (CKD-EPI)NonAf 25 (>60 ml/min/1.73 sqM) Glucose 71 L (74-99) mg/dL Calcium 8.4 (8.4-10.2) mg/dL Total Bilirubin 0.3 (0.2-1.3) mg/dL AST 18 (17-59) U/L ALT 18 (4-49) U/L Alkaline Phosphatase 92 (38-126) U/L Total Protein 4.8 L (6.3-8.2) g/dL Albumin 2.6 L (3.5-5.0) g/dL Stool Occult Blood (Negative) Blood Type O Positive Blood Type Recheck O Pos Bld Type Recheck Status No Antibody Screen NEGATIVE Crossmatch See Detail Spec Expiration Date 09/16/2022235209/13/22 Range/Units 23:48 WBC (3.8-10.6) k/uL RBC (4.30-5.90) m/uL Hgb (13.0-17.5) gm/dL Hct (39.0-53.0) % MCV (80.0-100.0) fL MCH (25.0-35.0) pg MCHC (31.0-37.0) g/dL RDW (11.5-15.5) % Plt Count (150-450) k/uL MPV Neutrophils % % Lymphocytes % % Monocytes % % Eosinophils % % Basophils % % Neutrophils # (1.3-7.7) k/uL Lymphocytes # (1.0-4.8) k/uL Monocytes # (0-1.0) k/uL Eosinophils # (0-0.7) k/uL Basophils # (0-0.2) k/uL Hypochromasia Anisocytosis Sodium (137-145) mmol/L Potassium (3.5-5.1) mmol/L Chloride (98-107) mmol/L Carbon Dioxide (22-30) mmol/L Anion Gap mmol/L BUN (9-20) mg/dL Creatinine (0.66-1.25) mg/dL Est GFR (CKD-EPI)AfAm (>60 ml/min/1.73 sqM) Est GFR (CKD-EPI)NonAf (>60 ml/min/1.73 sqM) Glucose (74-99) mg/dL Calcium (8.4-10.2) mg/dL Total Bilirubin (0.2-1.3) mg/dL AST (17-59) U/L ALT (4-49) U/L Alkaline Phosphatase (38-126) U/L Total Protein (6.3-8.2) g/dL Albumin (3.5-5.0) g/dL Stool Occult Blood Positive (Negative) Blood Type Blood Type Recheck Bld Type Recheck Status Antibody Screen Crossmatch Spec Expiration Date Disposition Clinical Impression: GI bleeding, Anemia, COPD (chronic obstructive pulmonary disease) Disposition: OTHER INSTITUTION NOT DEFINED Condition: Fair Referrals: Nonstaff,Physician [Primary Care Provider] - 1-2 days - Out of Hospital Transfer - Req. Specs Out of Hospital Transfer - Requested Specifics: Other Emergency Center
[2022-09-13 21:37] LABS: Anisocytosis Slight; Basophils % (A) 0 %; Eosinophils # (A) 0.1 k/uL (0-0.7); Eosinophils % (A) 2 %; HCT 23.2 % (39.0-53.0); HGB 7.3 gm/dL (13.0-17.5); Hypochromasia Marked; Lymphocytes # (A) 1.9 k/uL (1.0-4.8); Lymphocytes % (A) 28 %; MCH 28.8 pg (25.0-35.0); MCHC 31.4 g/dL (31.0-37.0); MCV 91.8 fL (80.0-100.0); Mean Platelet Volume 7.5; Monocytes # (A) 0.4 k/uL (0-1.0); Monocytes % (A) 5 %; Neutrophils # (A) 4.4 k/uL (1.3-7.7); Neutrophils % (A) 63 %; Platelet Count 284 k/uL (150-450); RBC 2.53 m/uL (4.30-5.90)
[2022-09-13 21:54] LABS: Albumin 2.6 g/dL (3.5-5.0); Calcium 8.4 mg/dL (8.4-10.2); Potassium 4.6 mmol/L (3.5-5.1); Total Bilirubin 0.3 mg/dL (0.2-1.3); Total Protein 4.8 g/dL (6.3-8.2)
[2022-09-13] MEDS ORDERED: ALBUTEROL NEBULIZED 2.5 MG/3 ML INHALATION STA (22:10)
[2022-09-14 00:48] VITALS: RESP 18
[2022-09-14 02:56] VITALS: BP 126/61; PULSE 72; TEMP 97.8
== END 2022-09-14 03:54 | disposition other institution (70) ==
LOC: EC 20:48
DX: D64.9 Anemia, unspecified (principal); K92.2 Gastrointestinal hemorrhage, unspecified; J44.9 Chronic obstructive pulmonary disease, unspecified; G45.9 Transient cerebral ischemic attack, unspecified; E11.9 Type 2 diabetes mellitus without complications; I82.409 Acute embolism and thrombosis of unspecified deep veins of unspecified lower extremity; K21.9 Gastro-esophageal reflux disease without esophagitis; I12.9 Hypertensive chronic kidney disease with stage 1 through stage 4 chronic kidney disease, or unspecified chronic kidney disease; N18.9 Chronic kidney disease, unspecified; E03.9 Hypothyroidism, unspecified; Z87.891 Personal history of nicotine dependence; Z79.899 Other long term (current) drug therapy; Z79.83 Long term (current) use of bisphosphonates; Z79.890 Hormone replacement therapy; Z79.82 Long term (current) use of aspirin; Z79.51 Long term (current) use of inhaled steroids
CPT/HCPCS: 36415; 94640; 86900; 86901; 80053; 85025; 86850; 86920; 82272; 36430; 99285; P9016

== ENCOUNTER 2022-10-04 01:44 | Inpatient (IN) | payer MEDICARE, OTHER ==
[2022-10-04 02:46] LABS: Basophils % (A) 0 %; Eosinophils % (A) 0 %; HCT 34.2 % (39.0-53.0); Hypochromasia Slight; Lymphocytes # (A) 0.1 k/uL (1.0-4.8); Lymphocytes % (A) 1 %; MCH 29.1 pg (25.0-35.0); MCHC 32.1 g/dL (31.0-37.0); MCV 90.7 fL (80.0-100.0); Mean Platelet Volume 8.6; Monocytes # (A) 0.2 k/uL (0-1.0); Monocytes % (A) 1 %; Neutrophils % (A) 98 %; RBC 3.77 m/uL (4.30-5.90); RDW 15.8 % (11.5-15.5); WBC 17.4 k/uL (3.8-10.6)
[2022-10-04] MEDS ORDERED: IPRATROPIUM-ALBUTEROL 3 ML NEB INHALATION STA (02:51)
[2022-10-04 02:53] LABS: Platelet Count 106 k/uL (150-450)
[2022-10-04 02:55] LABS: Albumin 2.9 g/dL (3.5-5.0); Calcium 7.9 mg/dL (8.4-10.2); Potassium 4.3 mmol/L (3.5-5.1); Total Bilirubin 0.6 mg/dL (0.2-1.3); Total Protein 4.9 g/dL (6.3-8.2)
[2022-10-04] MEDS ORDERED: ALBUTEROL HFA INHALER INHALATION STA (03:01)
[2022-10-04 03:09] LABS: INR 1.2 (<1.2); Prothrombin Time 12.2 sec (9.0-12.0)
--- NOTE | 2022-10-04 03:50 | XR ---
EXAMINATION TYPE: XR chest 2V DATE OF EXAM: 10/04/2022 COMPARISON: 09/02/2022 HISTORY: Short of breath TECHNIQUE: 2 views FINDINGS: There are some minimal linear density at the left lung base. No heart failure seen. Heart s ize is normal. Right lung is clear. IMPRESSION: There is some minimal infiltrate and atelectasis left lung base which is improved compare d to last exam. No heart failure.
[2022-10-04] MEDS ORDERED: HEPARIN SODIUM 1,000 UN/ML (10ML VL) IV PRN (04:16)
[2022-10-04] MEDS ORDERED: HEPARIN SODIUM 1,000 UN/ML (10ML VL) IV ONE (04:16)
[2022-10-04] MEDS ORDERED: NALOXONE 0.4 MG/ML 1 ML VIAL IV PRN ×2 (04:19→12:02)
--- NOTE | 2022-10-04 04:19 | ED ---
SOB HPI - General Chief Complaint: Shortness of Breath Stated Complaint: COVID+, SOB Time Seen by Provider: 10/04/22 01:55 Source: patient, EMS Mode of arrival: EMS Limitations: no limitations - History of Present Illness Initial Comments: 76-year-old male with multiple medical conditions to include COPD, hypertension, hyperlipidemia, left lung cancer, DVT on anticoagulation who presents to the emergency department from [facility]. He was sent in with increased shortness of breath. He was diagnosed with Covid on the . Patient reports to me that they recently just placed him on oxygen as his pulse ox was worsening. He admits to a cough without production. No hematemesis. Denies chest pain. They have been giving him his albuterol treatments as well as steroids however has had no improvement in his symptoms. Patient became increasingly hypoxic and therefore was transferred to our facility for further evaluation. States he has been provided with his anticoagulant without any missed doses. Patient does not wear oxygen at baseline. No other alleviating, precipitating or modifying factors - Related Data Home Medications Medication Instructions Recorded Confirmed amLODIPine [Norvasc] 10 mg PO HS@209907/30/19 10/04/22 Omeprazole 20 mg PO HS@209907/06/20 10/04/22 Solifenacin Succinate [Vesicare] 10 mg PO HS@209901/12/21 10/04/22 Furosemide [Lasix] 40 mg PO BID@0600,1400 06/03/21 10/04/22 Ipratropium-Albuterol Nebulize 3 ml INHALATION RT-QID 10/14/21 10/04/22 [Duoneb 0.5 mg-3 mg/3 ml Soln] Aspirin [Adult Low Dose Aspirin EC] 81 mg PO HS@209902/27/22 10/04/22 Levothyroxine Sodium [Synthroid] 25 mcg PO DAILY@0600 06/12/22 10/04/22 allopurinoL [Zyloprim] 100 mg PO DAILY@0800 06/12/22 10/04/22 Ferrous Sulfate [Iron (65 MG 325 mg PO DAILY@1200 07/06/22 10/04/22 Elemental)] Simvastatin [Zocor] 20 mg PO HS@209907/06/22 10/04/22 levETIRAcetam [Keppra] 500 mg PO BID@0800,2100 07/06/22 10/04/22 Budesonide/Formoterol Fumarate 2 puff INHALATION RT-BID@0800,1700 08/29/22 10/04/22 [Symbicort 160-4.5 Mcg Inhaler] Tamsulosin [Flomax] 0.4 mg PO DAILY@0800 08/29/22 10/04/22 Magnesium Hydroxide [Milk of 7,200 mg PO Q48H PRN 09/13/22 10/04/22 Magnesia Concentrate] Na Phos,M-B/Na Phos,Di-Ba [Fleet 133 ml RECTAL DAILY PRN 09/13/22 10/04/22 Adult] bisacodyL [Dulcolax] 10 mg RECTAL DAILY PRN 09/13/22 10/04/22 Ascorbic Acid [Vitamin C] 500 mg PO DAILY@17010/04/22 10/04/22 Azithromycin [Zithromax Z Pack] See Taper PO DIRECTED 10/04/22 10/04/22 Cholecalciferol [Vitamin D3 (25 50 mcg PO DAILY@0810/04/22 10/04/22 Mcg = 1000 Iu)] Glucerna Shake 1 can PO TID@0800,1200,1700 10/04/22 10/04/22 INSULIN ASPART (NovoLOG) [NovoLOG 8 unit SQ AC-TID 10/04/22 10/04/22 (formulary)] Insulin Detemir (Levemir) [Levemir] 12 unit SQ HS@209910/04/22 10/04/22 Loperamide [Imodium] 2 mg PO QID PRN 10/04/22 10/04/22 Metoprolol Succinate (ER) [Toprol 25 mg PO BID@0800,1700 10/04/22 10/04/22 Xl] Zinc Gluconate [Zinc] 50 mg PO DAILY@1700 10/04/22 10/04/22 calcitrioL [Calcitriol] 0.25 mcg PO DAILY@1200 10/04/22 10/04/22 guaiFENesin [guaiFENesin Oral 200 mg PO Q4H PRN 10/04/22 10/04/22 Solution] methylPREDNISolone [Medrol Dose See Taper PO DIRECTED 10/04/22 10/04/22 Pack] Allergies Allergy/AdvReac Type Severity Reaction Status Date / Time No Known Allergies Allergy Verified 10/04/22 07:35 Review of Systems ROS Statement: Those systems with pertinent positive or pertinent negative responses have been documented in the HPI. ROS Other: All systems not noted in ROS Statement are negative. Past Medical History Past Medical History: Cancer, COPD, CVA/TIA, Diabetes Mellitus, Deep Vein Thrombosis (DVT), GERD/Reflux, Hyperlipidemia, Hypertension, Renal Disease, Seizure Disorder, Thyroid Disorder Additional Past Medical History / Comment(s): 07/2018 L lung cancer with left upper lobectomy., R lower lobe cancer in August 2019 and had wedge resection and immunotherapy., bronchitis, TIA and seizure after bronchoscopy in 2017, DVT L leg, IDDM type II, chronic cervical/back pain, BPH, stage III kidney disease, chronic constipation ., dysphagia with wt loss., states spot on spine L-3., states he thinks he has a sore on his INNER THIGH ., hx of carotid stenosis with stent 06/03/2021. Last Myocardial Infarction Date:: 05/24/12 History of Any Multi-Drug Resistant Organisms: None Reported Past Surgical History: Back Surgery, Cholecystectomy, Heart Catheterization, Heart Catheterization With Stent, Hernia Repair, Tonsillectomy Additional Past Surgical History / Comment(s): 2018 Bronchoscopy with bx, 2017 L upper lobectomy at [facility], August 2019 R lower lung wedge resection, low back surgery, umbilical hernia repair, bilateral cataract removals ., right transcarotid artery revasculazation with stent May 2021, COLONOSCOPY Past Anesthesia/Blood Transfusion Reactions: Previous Problems w/ Anesthesia Additional Past Anesthesia/Blood Transfusion Reaction / Comment(s): Seizure and mini stroke following lung biopsy Date of Last Stent Placement:: 06/03/2021-CAROTID STENT Past Psychological History: No Psychological Hx Reported Smoking Status: Former smoker Past Alcohol Use History: None Reported Past Drug Use History: None Reported - Past Family History Mother Family Medical History: No Reported History Additional Family Medical History / Comment(s): Mother was healthy Father Family Medical History: Diabetes Mellitus, Deep Vein Thrombosis (DVT) Additional Family Medical History / Comment(s): Father of diabetes at the age of 83 yrs. General Exam Limitations: no limitations General appearance: alert, anxious Eye exam: Present: normal appearance, PERRL, EOMI. Absent: scleral icterus, conjunctival injection, periorbital swelling ENT exam: Present: normal exam, mucous membranes moist Neck exam: Present: normal inspection. Absent: tenderness, meningismus, lymph adenopathy Respiratory exam: Present: respiratory distress, accessory muscle use, decreased breath sounds Cardiovascular Exam: Present: regular rate, normal rhythm, normal heart sounds. Absent: systolic murmur, diastolic murmur, rubs, gallop, clicks GI/Abdominal exam: Present: soft, normal bowel sounds. Absent: distended, tenderness, guarding, rebound, rigid Neurological exam: Present: altered Psychiatric exam: Present: agitated Skin exam: Present: warm, dry, intact, normal color. Absent: rash Course Vital Signs 10/04/22 10/04/22 10/04/22 01:50 02:00 03:00 Pulse Rate 96 96 99 Respiratory 18 16 16 Rate Blood Pressure 130/61 126/65 117/65 O2 Sat by Pulse 82 L 92 L 93 L Oximetry Fraction of Inspired Oxygen (FIO2) 10/04/22 03:45 Pulse Rate Respiratory Rate Blood Pressure O2 Sat by Pulse Oximetry Fraction of 40 Inspired Oxygen (FIO2) Medical Decision Making - Medical Decision Making Arrival patient was placed into room 17. A thorough history and physical exam is performed. Upon initial exam the patient is comfortable on 4 L of oxygen. His room air saturation was 82%. He was given an albuterol treatment using the inhaler. Laboratory studies are conducted which reveal a white count of 17.4. D-dimer is 12. Creatinine of 2.8. Troponin of 0.118. Influenza is negative. Chest x-ray is performed which demonstrates minimal infiltrate and atelectasis of the left lung base. Patient was covered with a dose of antibiotics. I also heparinize the patient instead of ordering his morning dose of his xarleto. He is reevaluated and does have progressive shortness of breath therefore he is placed on BiPAP and requires admission. He will be admitted to Dr. souza who agreed to admit this admission. Due to elevated d-dimer I will consult pulm but also place an order for a v/q scan. I did order prednisone and breathing treatments for the patient. Patient currently awaiting a bed on the floor in stable condition - Lab Data Result diagrams: 10/04/22 02:32 10/04/22 02:32 Lab Results 10/04/22 10/04/22 10/04/22 Range/Units 02:32 02:32 02:32 WBC 17.4 H (3.8-10.6) k/uL RBC 3.77 L (4.30-5.90) m/uL Hgb 11.0 L D (13.0-17.5) gm/dL Hct 34.2 L (39.0-53.0) % MCV 90.7 (80.0-100.0) fL MCH 29.1 (25.0-35.0) pg MCHC 32.1 (31.0-37.0) g/dL RDW 15.8 H (11.5-15.5) % Plt Count 106 L D (150-450) k/uL MPV 8.6 Neutrophils % 98 % Lymphocytes % 1 % Monocytes % 1 % Eosinophils % 0 % Basophils % 0 % Neutrophils # 17.0 H (1.3-7.7) k/uL Lymphocytes # 0.1 L (1.0-4.8) k/uL Monocytes # 0.2 (0-1.0) k/uL Eosinophils # 0.0 (0-0.7) k/uL Basophils # 0.0 (0-0.2) k/uL Hypochromasia Slight PT 12.2 H (9.0-12.0) sec INR 1.2 H (<1.2) APTT 27.0 (22.0-30.0) sec D-Dimer 12.03 H (<0.60) mg/L FEU Sodium 129 L (137-145) mmol/L Potassium 4.3 (3.5-5.1) mmol/L Chloride 97 L (98-107) mmol/L Carbon Dioxide 20 L (22-30) mmol/L Anion Gap 12 mmol/L BUN 48 H (9-20) mg/dL Creatinine 2.86 H (0.66-1.25) mg/dL Est GFR (CKD-EPI)AfAm 24 (>60 ml/min/1.73 sqM) Est GFR (CKD-EPI)NonAf 21 (>60 ml/min/1.73 sqM) Glucose 182 H (74-99) mg/dL Plasma Lactic Acid Nehemias (0.7-2.0) mmol/L Calcium 7.9 L (8.4-10.2) mg/dL Total Bilirubin 0.6 (0.2-1.3) mg/dL AST 34 (17-59) U/L ALT 22 (4-49) U/L Alkaline Phosphatase 92 (38-126) U/L Troponin I (0.000-0.034) ng/mL NT-Pro-B Natriuret Pep pg/mL Total Protein 4.9 L (6.3-8.2) g/dL Albumin 2.9 L (3.5-5.0) g/dL Influenza Type A RNA (Not Detectd) Influenza Type B (PCR) (Not Detectd) 10/04/22 10/04/22 10/04/22 Range/Units 02:32 02:32 02:32 WBC (3.8-10.6) k/uL RBC (4.30-5.90) m/uL Hgb (13.0-17.5) gm/dL Hct (39.0-53.0) % MCV (80.0-100.0) fL MCH (25.0-35.0) pg MCHC (31.0-37.0) g/dL RDW (11.5-15.5) % Plt Count (150-450) k/uL MPV Neutrophils % % Lymphocytes % % Monocytes % % Eosinophils % % Basophils % % Neutrophils # (1.3-7.7) k/uL Lymphocytes # (1.0-4.8) k/uL Monocytes # (0-1.0) k/uL Eosinophils # (0-0.7) k/uL Basophils # (0-0.2) k/uL Hypochromasia PT (9.0-12.0) sec INR (<1.2) APTT (22.0-30.0) sec D-Dimer (<0.60) mg/L FEU Sodium (137-145) mmol/L Potassium (3.5-5.1) mmol/L Chloride (98-107) mmol/L Carbon Dioxide (22-30) mmol/L Anion Gap mmol/L BUN (9-20) mg/dL Creatinine (0.66-1.25) mg/dL Est GFR (CKD-EPI)AfAm (>60 ml/min/1.73 sqM) Est GFR (CKD-EPI)NonAf (>60 ml/min/1.73 sqM) Glucose (74-99) mg/dL Plasma Lactic Acid Nehemias 1.9 (0.7-2.0) mmol/L Calcium (8.4-10.2) mg/dL Total Bilirubin (0.2-1.3) mg/dL AST (17-59) U/L ALT (4-49) U/L Alkaline Phosphatase (38-126) U/L Troponin I 0.118 H* (0.000-0.034) ng/mL NT-Pro-B Natriuret Pep 939 pg/mL Total Protein (6.3-8.2) g/dL Albumin (3.5-5.0) g/dL Influenza Type A RNA (Not Detectd) Influenza Type B (PCR) (Not Detectd) 10/04/22 Range/Units 02:32 WBC (3.8-10.6) k/uL RBC (4.30-5.90) m/uL Hgb (13.0-17.5) gm/dL Hct (39.0-53.0) % MCV (80.0-100.0) fL MCH (25.0-35.0) pg MCHC (31.0-37.0) g/dL RDW (11.5-15.5) % Plt Count (150-450) k/uL MPV Neutrophils % % Lymphocytes % % Monocytes % % Eosinophils % % Basophils % % Neutrophils # (1.3-7.7) k/uL Lymphocytes # (1.0-4.8) k/uL Monocytes # (0-1.0) k/uL Eosinophils # (0-0.7) k/uL Basophils # (0-0.2) k/uL Hypochromasia PT (9.0-12.0) sec INR (<1.2) APTT (22.0-30.0) sec D-Dimer (<0.60) mg/L FEU Sodium (137-145) mmol/L Potassium (3.5-5.1) mmol/L Chloride (98-107) mmol/L Carbon Dioxide (22-30) mmol/L Anion Gap mmol/L BUN (9-20) mg/dL Creatinine (0.66-1.25) mg/dL Est GFR (CKD-EPI)AfAm (>60 ml/min/1.73 sqM) Est GFR (CKD-EPI)NonAf (>60 ml/min/1.73 sqM) Glucose (74-99) mg/dL Plasma Lactic Acid Nehemias (0.7-2.0) mmol/L Calcium (8.4-10.2) mg/dL Total Bilirubin (0.2-1.3) mg/dL AST (17-59) U/L ALT (4-49) U/L Alkaline Phosphatase (38-126) U/L Troponin I (0.000-0.034) ng/mL NT-Pro-B Natriuret Pep pg/mL Total Protein (6.3-8.2) g/dL Albumin (3.5-5.0) g/dL Influenza Type A RNA Not Detected (Not Detectd) Influenza Type B (PCR) Not Detected (Not Detectd) - EKG Data EKG Comments: EKG demonstrates sinus rhythm with a rate of 97. MD interval is 163. QRS 90. QTC of 429. Significant baseline artifact. No acute ST segment elevation or depression or EKG was interpreted by myself Critical Care Time Critical Care Time: Yes Critical Care Time: 35 minutes for bipap management Disposition Clinical Impression: COPD (chronic obstructive pulmonary disease), COVID-19, CKD (chronic kidney disease), Elevated troponin, BiPAP (biphasic positive airway pressure) dependence Disposition: ADMITTED IP TO THIS HOSP Condition: Serious Is patient prescribed a controlled substance at d/c from ED?: No Time of Disposition: 04:18 Decision to Admit Reason: Admit from EC Decision Date: 10/04/22 Decision Time: 04:19
[2022-10-04] MEDS: HEPARIN SOD,PORK IN 0.45% NACL 25,000 UNIT in 0.45% NACL 1 250ML.BAG IV SCH (04:29)
[2022-10-04] MEDS ORDERED: ACETAMINOPHEN SUPPOSITORY 650 MG SUPP RECTAL PRN (06:14)
[2022-10-04] MEDS ORDERED: DEXAMETHASONE SOD PHOSPHATE 10 MG/ML 1 ML VIAL IVP SCH (09:00)
[2022-10-04] MEDS: ALBUTEROL HFA INHALER INHALATION PRN ×2 (09:06→12:43)
--- NOTE | 2022-10-04 11:24 | CONS ---
CONSULTATION CHIEF COMPLAINT: Elevated troponin. HISTORY OF PRESENT ILLNESS: This is a 76-year-old gentleman with history of COPD, hypertension, dyslipidemia, left lung cancer, DVT, who was sent to the hospital from [facility] with worsening shortness of breath. He was diagnosed with COVID on and came to hospital on . He was started on O2 and subsequently ended up on a BiPAP machine. At the time of my evaluation, he seems to be in some respiratory distress with a BiPAP on. He denies any chest pain. EKG shows sinus rhythm with nonspecific ST-T wave changes. One troponin is elevated at 0.118 and the BNP is elevated at 939. The patient's troponin elevation may be related to respiratory failure and hypoxia and this is not consistent with a diagnosis of acute myocardial infarction, but the elevated BNP could be related to the COVID infection. PAST MEDICAL HISTORY: Significant for COPD, CVA, cancer, diabetes, seizure disorder, hypertension, dyslipidemia, lung cancer status post left upper lobectomy. MEDICATIONS AT HOME: 1. Insulin. 2. Toprol-XL 25 b.i.d. 3. Symbicort. 4. Zinc. 5. Keppra. 6. Lasix 40 b.i.d. 7. Zocor 20 daily. 8. Synthroid. 9. Medrol. 10.Levemir. 11.Zithromax. 12.Norvasc. 13.Zyloprim. 14.Vitamin C. ALLERGIES: There are no known drug allergies. FAMILY HISTORY: Negative for premature coronary artery disease. SOCIAL HISTORY: Denies current smoking. REVIEW OF SYSTEMS: A review of systems has been performed, pertinents are as documented. PHYSICAL EXAMINATION: VITAL SIGNS: He has a T-max of 102.9, heart rate is elevated at 102, blood pressure is 126/64. He has a BiPAP on with a FiO2 of 40%. CHEST: Reveals diffuse rhonchi. HEART: Reveals first and second heart sounds. No gallop. ABDOMEN: Soft. EXTREMITIES: Did not reveal any edema. Peripheral pulses are palpable. ASSESSMENT: Coronavirus infection with chronic obstructive pulmonary disease exacerbation, elevated troponin secondary to hypoxia and respiratory distress. PLAN: The patient is currently on IV heparin. I am going to continue this for the next 24 hours and then stop it. Please resume the Toprol and the Zocor that he is currently on and will obtain a 2D echo to evaluate his LV function. FANI / GILMAR: [id number] /
[2022-10-04 11:48] LABS: Glucose,Whole Blood 259 mg/dL (70-110)
[2022-10-04] MEDS ORDERED: NA PHOS,M-B/NA PHOS,DI-BA 133 ML ENEMA RECTAL PRN (12:02)
[2022-10-04] MEDS ORDERED: bisacodyL 10 MG SUPP RECTAL PRN (12:02)
--- NOTE | 2022-10-04 12:29 | P.HPIM ---
History of Present Illness H&P Date: 10/04/22 Chief Complaint: sob 76-year-old male with multiple medical conditions to include COPD, hypertension, hyperlipidemia, left lung cancer, DVT on anticoagulation who presents to the emergency department from [facility], due to increased shortness of breath. He was diagnosed with Covid on the . He was just recently started on oxygen as his pulse ox was worsening. He admits to a cough without production. No hematemesis. Denies chest pain. Denies nausea, vomiting, fevers or chills. They have been giving him his albuterol treatments as well as steroids however has had no improvement in his symptoms. Patient became increasingly hypoxic and therefore was transferred to our facility for further evaluation. Medications emergency department revealed temperature 102.9, O2 SATURATIONS 82% ON ROOM AIR, 92% ON 4 L. Labs showed white count 17.4, hemoglobin 11, hematocr it 31, platelet 106. [id number], potassium 4.3, chloride 97, bicarbonate 20, BUN 48, creatinine 2.86, glucose 22, calcium 7.9, troponin 0.118, went up to 0.173. CXR showed left lower lobe infiltrates versus atelectasis. Review of Systems Complete review of system performed, pertinent positives per HPI, otherwise negative Past Medical History Past Medical History: Cancer, COPD, CVA/TIA, Diabetes Mellitus, Deep Vein Thrombosis (DVT), GERD/Reflux, Hyperlipidemia, Hypertension, Renal Disease, Seizure Disorder, Thyroid Disorder Additional Past Medical History / Comment(s): 07/2018 L lung cancer with left u pper lobectomy., R lower lobe cancer in August 2019 and had wedge resection and immunotherapy., bronchitis, TIA and seizure after bronchoscopy in 2017, DVT L leg, IDDM type II, chronic cervical/back pain, BPH, stage III kidney disease, chronic constipation ., dysphagia with wt loss., states spot on spine L-3., states he thinks he has a sore on his INNER THIGH ., hx of carotid stenosis with stent 06/03/2021. Last Myocardial Infarction Date:: 05/24/12 History of Any Multi-Drug Resistant Organisms: None Reported Past Surgical History: Back Surgery, Cholecystectomy, Heart Catheterization, Heart Catheterization With Stent, Hernia Repair, Tonsillectomy Additional Past Surgical History / Comment(s): 2018 Bronchoscopy with bx, 2017 L upper lobectomy at [facility], August 2019 R lower lung wedge resection, low back surgery, umbilical hernia repair, bilateral cataract removals ., right transcarotid artery revasculazation with stent May 2021, COLONOSCOPY Past Anesthesia/Blood Transfusion Reactions: Previous Problems w/ Anesthesia Additional Past Anesthesia/Blood Transfusion Reaction / Comment(s): Seizure and mini stroke following lung biopsy Date of Last Stent Placement:: 06/03/2021-CAROTID STENT Past Psychological History: No Psychological Hx Reported Additional Psychological History / Comment(s): . Smoking Status: Former smoker Past Alcohol Use History: None Reported Additional Past Alcohol Use History / Comment(s): Pt started smoking in 1960 and quit in 1995. He was a 2ppd smoker. Past Drug Use History: None Reported Additional Drug Use History / Comment(s): . - Past Family History Mother Family Medical History: No Reported History Additional Family Medical History / Comment(s): Mother was healthy Father Family Medical History: Diabetes Mellitus, Deep Vein Thrombosis (DVT) Additional Family Medical History / Comment(s): Father of diabetes at the age of 83 yrs. Medications and Allergies Home Medications Medication Instructions Recorded Confirmed Type amLODIPine [Norvasc] 10 mg PO HS@209907/30/19 10/04/22 History Omeprazole 20 mg PO HS@209907/06/20 10/04/22 History Solifenacin Succinate [Vesicare] 10 mg PO HS@209901/12/21 10/04/22 History Furosemide [Lasix] 40 mg PO BID@0600,1400 06/03/21 10/04/22 History Ipratropium-Albuterol Nebulize 3 ml INHALATION RT-QID 10/14/21 10/04/22 History [Duoneb 0.5 mg-3 mg/3 ml Soln] Aspirin [Adult Low Dose Aspirin EC] 81 mg PO HS@209902/27/22 10/04/22 History Levothyroxine Sodium [Synthroid] 25 mcg PO DAILY@0600 06/12/22 10/04/22 History allopurinoL [Zyloprim] 100 mg PO DAILY@0806/12/22 10/04/22 History Ferrous Sulfate [Iron (65 MG 325 mg PO DAILY@1200 07/06/22 10/04/22 History Elemental)] Simvastatin [Zocor] 20 mg PO HS@209907/06/22 10/04/22 History levETIRAcetam [Keppra] 500 mg PO BID@0800,2100 07/06/22 10/04/22 History Budesonide/Formoterol Fumarate 2 puff INHALATION RT-BID@0800,1700 08/29/22 10/04/22 History [Symbicort 160-4.5 Mcg Inhaler] Tamsulosin [Flomax] 0.4 mg PO DAILY@0800 08/29/22 10/04/22 History Magnesium Hydroxide [Milk of 7,200 mg PO Q48H PRN 09/13/22 10/04/22 History Magnesia Concentrate] Na Phos,M-B/Na Phos,Di-Ba [Fleet 133 ml RECTAL DAILY PRN 09/13/22 10/04/22 History Adult] bisacodyL [Dulcolax] 10 mg RECTAL DAILY PRN 09/13/22 10/04/22 History Ascorbic Acid [Vitamin C] 500 mg PO DAILY@1700 10/04/22 10/04/22 History Azithromycin [Zithromax Z Pack] See Taper PO DIRECTED 10/04/22 10/04/22 His tory Cholecalciferol [Vitamin D3 (25 50 mcg PO DAILY@0800 10/04/22 10/04/22 History Mcg = 1000 Iu)] Glucerna Rhettke 1 can PO TID@0800,1200,1700 10/04/22 10/04/22 History INSULIN ASPART (NovoLOG) [NovoLOG 8 unit SQ AC-TID 10/04/22 10/04/22 History (formulary)] Insulin Detemir (Levemir) [Levemir] 12 unit SQ HS@209910/04/22 10/04/22 History Loperamide [Imodium] 2 mg PO QID PRN 10/04/22 10/04/22 History Metoprolol Succinate (ER) [Toprol 25 mg PO BID@0800,1700 10/04/22 10/04/22 History Xl] Zinc Gluconate [Zinc] 50 mg PO DAILY@1700 10/04/22 10/04/22 History calcitrioL [Calcitriol] 0.25 mcg PO DAILY@1200 10/04/22 10/04/22 History guaiFENesin [guaiFENesin Oral 200 mg PO Q4H PRN 10/04/22 10/04/22 History Solution] methylPREDNISolone [Medrol Dose See Taper PO DIRECTED 10/04/22 10/04/22 History Pack] Allergies Allergy/AdvReac Type Severity Reaction Status Date / Time No Known Allergies Allergy Verified 10/04/22 07:35 Physical Exam Vitals: Vital Signs Temp Pulse Pulse Resp BP BP Pulse Ox 10/04/22 09:06 10/04/22 08:45 99.9 F H 98 40 H 95/55 100 10/04/22 06:59 98.1 F 102 H 126/64 97 10/04/22 06:07 102.9 F H 101 H 40 H 123/65 97 10/04/22 05:43 10/04/22 03:45 10/04/22 03:00 99 16 117/65 93 L 10/04/22 02:00 96 16 126/65 92 L 10/04/22 01:50 96 18 130/61 82 L FiO2 10/04/22 09:06 40 10/04/22 08:45 40 10/04/22 06:59 40 10/04/22 06:07 40 10/04/22 05:43 40 10/04/22 03:45 40 10/04/22 03:00 10/04/22 02:00 10/04/22 01:50 Intake and Output 10/03/22 10/04/22 10/04/22 22:59 06:59 14:59 Other: Voiding Method External Catheter # Voids 3 Weight 80.739 kg Constitutional: Respiratory distress, severe Eyes:Anicteric sclerae, moist conjunctiva, no lid-lag, PERRLA, ENMT: Oropharynx clear, no erythema, exudates Neck: Supple, FROM, no masses, or JVD, No carotid bruits, No thyromegaly Lungs: bilateral rhonchi and wheezes, increased respiratory effort, no accessory muscle use Cardiovascular: Heart regular in rate and rhythm, No murmurs, gallops, or rubs, No peripheral edema Abdominal: Soft, Nontender, no guarding, rebound or rigidity, Normoactive bowel sounds, No hepatomegaly, No splenomegaly, No palpable mass Skin: Normal temperature, tone, texture, turgor, no induration, No subcutaneous nodules, No rash, lesions, No ulcers Extremities: No digital cyanosis, No clubbing, Pedal pulses intact and symmetrical, Radial pulses intact and symmetrical, No calf tenderness Psychiatric: Alert and oriented to person, place and time, appropriate affect, intact judgement Neuro: Muscles Strength 5/5 in all 4 extremities, Sensation to light touch grossly present throughout, Cranial nerves II-XII grossly intact, no focal sensory deficits Results CBC & Chem 7: 10/04/22 02:32 10/04/22 02:32 Labs: Abnormal Lab Results - Last 24 Hours (Table) 10/04/22 10/04/22 10/04/22 Range/Units 02:32 02:32 02:32 WBC 17.4 H (3.8-10.6) k/uL RBC 3.77 L (4.30-5.90) m/uL Hgb 11.0 L D (13.0-17.5) gm/dL Hct 34.2 L (39.0-53.0) % RDW 15.8 H (11.5-15.5) % Plt Count 106 L D (150-450) k/uL Neutrophils # 17.0 H (1.3-7.7) k/uL Lymphocytes # 0.1 L (1.0-4.8) k/uL PT 12.2 H (9.0-12.0) sec INR 1.2 H (<1.2) D-Dimer 12.03 H (<0.60) mg/L FEU Sodium 129 L (137-145) mmol/L Chloride 97 L (98-107) mmol/L Carbon Dioxide 20 L (22-30) mmol/L BUN 48 H (9-20) mg/dL Creatinine 2.86 H (0.66-1.25) mg/dL Glucose 182 H (74-99) mg/dL Calcium 7.9 L (8.4-10.2) mg/dL Troponin I (0.000-0.034) ng/mL Total Protein 4.9 L (6.3-8.2) g/dL Albumin 2.9 L (3.5-5.0) g/dL 10/04/22 Range/Units 02:32 WBC (3.8-10.6) k/uL RBC (4.30-5.90) m/uL Hgb (13.0-17.5) gm/dL Hct (39.0-53.0) % RDW (11.5-15.5) % Plt Count (150-450) k/uL Neutrophils # (1.3-7.7) k/uL Lymphocytes # (1.0-4.8) k/uL PT (9.0-12.0) sec INR (<1.2) D-Dimer (<0.60) mg/L FEU Sodium (137-145) mmol/L Chloride (98-107) mmol/L Carbon Dioxide (22-30) mmol/L BUN (9-20) mg/dL Creatinine (0.66-1.25) mg/dL Glucose (74-99) mg/dL Calcium (8.4-10.2) mg/dL Troponin I 0.118 H* (0.000-0.034) ng/mL Total Protein (6.3-8.2) g/dL Albumin (3.5-5.0) g/dL Thrombosis Risk Factor Assmnt - Choose All That Apply Each Factor Represents 1 point: Medical pt on bed rest Each Risk Factor Represents 3 Points: Age 75 years or older Thrombosis Risk Factor Assessment Total Risk Factor Score: 4 Thrombosis Risk Factor Assessment Level: Moderate Risk Assessment and Plan Plan: Acute hypoxic respiratory failure COVID-19 pneumonia Acute COPD exacerbation Sepsis Currently on BiPAP, refusing ABG Pulmonary consultation Start on Decadron as well as bronchodilators Check pro calcitonin Sputum and blood cultures Elevated troponin Could be sec to pneumonia, vs. demand ischemia Cardiology on board. Will treat with heparin for 24 hours. DM 2 Continue half of his lantus dose at home, 6 units. SSI Chronic GERD/Reflux, Hyperlipidemia, Hypertension, BPH, Stage III kidney disease All stable resume meds Admit to inpatient expected length of stay more than 2 midnights Full code
[2022-10-04] MEDS: INSULIN ASPART (NovoLOG) 100 UNIT/ML VIAL SQ SCH ×3 (12:40→22:09)
--- NOTE | 2022-10-04 12:42 | US ---
EXAMINATION TYPE: US venous doppler duplex LE DATE OF EXAM: 10/04/2022 12:34 PM COMPARISON: NONE CLINICAL HISTORY: Hypoxemia, elevated d-dimer. Inpatient. Covid. Bipap machine. SIDE PERFORMED: Bilateral TECHNIQUE: The lower extremity deep venous system is examined utilizing real time linear array sonog hannah with graded compression, doppler sonography and color-flow sonography. VESSELS IMAGED: Common Femoral Vein Deep Femoral Vein Greater Saphenous Vein * Femoral Vein Popliteal Vein Small Saphenous Vein * Proximal Calf Veins- limited visualization of left (* superficial vessels) Right Leg: Negative for DVT Left Leg: Positive for DVT in CFV, proximal FV, mid FV, Deep FV and distal popliteal vein. IMPRESSION: Positive left lower extremity DVT as noted above.
[2022-10-04 13:29] VITALS: BMI 23.5
--- NOTE | 2022-10-04 15:03 | P.CNPUL ---
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 History of DVT, patient presented to the ER from [facility], mostly complaining of shortness of breath, no chest pain, no cough, no fever, no chills, no hemoptysis. Patient was noted to be quite hypoxic on his initial presentation, he was also noted to have fever with a temp of 102.9. He had leukocytosis with WBC count of 17.4. Relatively low platelets of 10 6000. Otherwise the rest of the labs were unremarkable except for chronic renal failure with a creatinine of 2.86. Chest x-ray showed Left lower lobe atelectasis, possible infiltrate in the left lower lobe. However the patient's degree of hypoxia and degree of shortness of breath does not correlate with the findings noted on the chest x-ray or the physical findings hence I strongly believe that the patient has thromboembolic disease from DVTs since his venous Doppler is positive for DVT, and his d-dimer is significantly elevated. Patient is not a candidate to proceed with CT angiogram of the chest, and I don't believe a VQ scan will be of significant value at this point. Patient will require to have anticoagulation therapy anyway. Apparently the patient was tested positive for COVID-19 infection on the . Which may be a contributing factor to his DVT and pulmonary embolism PE. Patient was placed on heparin as per protocol. And we will eventually transition the patient to oral anticoagulation therapy Review of Systems Constitutional: Negative HEENT: Negative Pulmonary: As noted in HPI Cardiac: Negative GI: Negative Muscular skeletal: Negative Skin: Negative Hematologic: History of DVT Psychiatric: Negative Endocrine history of diabetes type 2 Neurologic: Negative Past Medical History Past Medical History: Cancer, COPD, CVA/TIA, Diabetes Mellitus, Deep Vein Thrombosis (DVT), GERD/Reflux, Hyperlipidemia, Hypertension, Renal Disease, Seizure Disorder, Thyroid Disorder Additional Past Medical History / Comment(s): 07/2018 L lung cancer with left upper lobectomy., R lower lobe cancer in August 2019 and had wedge resection and immunotherapy., bronchitis, TIA and seizure after bronchoscopy in 2018, DVT L leg, IDDM type II, chronic cervical/back pain, BPH, stage III kidney di sease, chronic constipation ., dysphagia with wt loss., states spot on spine L- 3., states he thinks he has a sore on his INNER THIGH ., hx of carotid stenosis with stent 06/03/2021. Last Myocardial Infarction Date:: 05/24/12 History of Any Multi-Drug Resistant Organisms: None Reported Past Surgical History: Back Surgery, Cholecystectomy, Heart Catheterization, Heart Catheterization With Stent, Hernia Repair, Tonsillectomy Additional Past Surgical History / Comment(s): 2018 Bronchoscopy with bx, 2017 L upper lobectomy at [facility], August 2019 R lower lung wedge resection, low back surgery, umbilical hernia repair, bilateral cataract removals ., right transcarotid artery revasculazation with stent May 2021, COLONOSCOPY Past Anesthesia/Blood Transfusion Reactions: Previous Problems w/ Anesthesia Additional Past Anesthesia/Blood Transfusion Reaction / Comment(s): Seizure and mini stroke following lung biopsy Date of Last Stent Placement:: 06/03/2021-CAROTID STENT Past Psychological History: No Psychological Hx Reported Additional Psychological History / Comment(s): . Smoking Status: Former smoker Past Alcohol Use History: None Reported Additional Past Alcohol Use History / Comment(s): Pt started smoking in 1960 and quit in 1995. He was a 2ppd smoker. Past Drug Use History: None Reported Additional Drug Use History / Comment(s): . - Past Family History Mother Family Medical History: No Reported History Additional Family Medical History / Comment(s): Mother was healthy Father Family Medical History: Diabetes Mellitus, Deep Vein Thrombosis (DVT) Additional Family Medical History / Comment(s): Father of diabetes at the age of 83 yrs. Medications and Allergies Home Medications Medication Instructions Recorded Confirmed Type amLODIPine [Norvasc] 10 mg PO HS@209907/30/19 10/04/22 History Omeprazole 20 mg PO HS@209907/06/20 10/04/22 History Solifenacin Succinate [Vesicare] 10 mg PO HS@209901/12/21 10/04/22 History Furosemide [Lasix] 40 mg PO BID@0600,1400 06/03/21 10/04/22 History Ipratropium-Albuterol Nebulize 3 ml INHALATION RT-QID 10/14/21 10/04/22 History [Duoneb 0.5 mg-3 mg/3 ml Soln] Aspirin [Adult Low Dose Aspirin EC] 81 mg PO HS@209902/27/22 10/04/22 History Levothyroxine Sodium [Synthroid] 25 mcg PO DAILY@0600 06/12/22 10/04/22 History allopurinoL [Zyloprim] 100 mg PO DAILY@0800 06/12/22 10/04/22 History Ferrous Sulfate [Iron (65 MG 325 mg PO DAILY@1200 07/06/22 10/04/22 History Elemental)] Simvastatin [Zocor] 20 mg PO HS@209907/06/22 10/04/22 History levETIRAcetam [Keppra] 500 mg PO BID@0800,2100 07/06/22 10/04/22 History Budesonide/Formoterol Fumarate 2 puff INHALATION RT-BID@0800,1700 08/29/22 10/04/22 History [Symbicort 160-4.5 Mcg Inhaler] Tamsulosin [Flomax] 0.4 mg PO DAILY@0800 08/29/22 10/04/22 History Magnesium Hydroxide [Milk of 7,200 mg PO Q48H PRN 09/13/22 10/04/22 History Magnesia Concentrate] Na Phos,M-B/Na Phos,Di-Ba [Fleet 133 ml RECTAL DAILY PRN 09/13/22 10/04/22 History Adult] bisacodyL [Dulcolax] 10 mg RECTAL DAILY PRN 09/13/22 10/04/22 History Ascorbic Acid [Vitamin C] 500 mg PO DAILY@1700 10/04/22 10/04/22 History Azithromycin [Zithromax Z Pack] See Taper PO DIRECTED 10/04/22 10/04/22 History Cholecalciferol [Vitamin D3 (25 50 mcg PO DAILY@0800 10/04/22 10/04/22 History Mcg = 1000 Iu)] Glucerna Shake 1 can PO TID@0800,1200,1700 10/04/22 10/04/22 History INSULIN ASPART (NovoLOG) [NovoLOG 8 unit SQ AC-TID 10/04/22 10/04/22 History (formulary)] Insulin Detemir (Levemir) [Levemir] 12 unit SQ HS@2100 10/04/22 10/04/22 History Loperamide [Imodium] 2 mg PO QID PRN 10/04/22 10/04/22 History Metoprolol Succinate (ER) [Toprol 25 mg PO BID@0800,1700 10/04/22 10/04/22 History Xl] Zinc Gluconate [Zinc] 50 mg PO DAILY@1700 10/04/22 10/04/22 History calcitrioL [Calcitriol] 0.25 mcg PO DAILY@1200 10/04/22 10/04/22 History guaiFENesin [guaiFENesin Oral 200 mg PO Q4H PRN 10/04/22 10/04/22 History Solution] methylPREDNISolone [Medrol Dose See Taper PO DIRECTED 10/04/22 10/04/22 Hi story Pack] Allergies Allergy/AdvReac Type Severity Reaction Status Date / Time No Known Allergies Allergy Verified 10/04/22 07:35 Physical Exam Vitals: Vital Signs Temp Pulse Pulse Resp BP BP Pulse Ox 10/04/22 12:45 99 10/04/22 11:33 99 F 64 34 H 101/56 97 10/04/22 09:06 10/04/22 08:45 99.9 F H 98 40 H 95/55 100 10/04/22 06:59 98.1 F 102 H 126/64 97 10/04/22 06:07 102.9 F H 101 H 40 H 123/65 97 10/04/22 05:43 10/04/22 03:45 10/04/22 03:00 99 16 117/65 93 L 10/04/22 02:00 96 16 126/65 92 L 10/04/22 01:50 96 18 130/61 82 L FiO2 10/04/22 12:45 10/04/22 11:33 40 10/04/22 09:06 40 10/04/22 08:45 40 10/04/22 06:59 40 10/04/22 06:07 40 10/04/22 05:43 40 10/04/22 03:45 40 10/04/22 03:00 10/04/22 02:00 10/04/22 01:50 Intake and Output 10/03/22 10/04/2222 22:59 06:59 14:59 Intake Total 100 Balance 100 Intake: Oral 100 Other: Voiding Method Diaper # Voids 3 1 # Bowel Movements 1 Weight 80.739 kg 80.739 kg General: Revealed a 76-year-old white male on BiPAP, in mild to moderate respiratory distress. Eyes: PERRLA, EOMI, nonicteric, ENMT: Moist mucous membranes, no evidence of thrush. Neck: Supple no neck masses no JVD no stridor. Lungs: Diminished breath sounds at the bases, minimal wheezing bilaterally on forced expiratory maneuver mostly. Cardiovascular: Distant S1 and S2, no S3 gallop. Abdominal: Soft nontender pneumonia no rebound no guarding. Skin: No rashes Extremities: No clubbing edema or cyanosis. Psychiatric: Normal mood affect and normal mental status examination Neuro: Alert and oriented 3 no gross focal deficit Results - Laboratory Findings CBC and BMP: 10/04/22 02:32 10/04/22 02:32 PT/INR, D-dimer PT 12.2 sec (9.0-12.0) H 10/04/22 02:32 INR 1.2 (<1.2) H 10/04/22 02:32 D-Dimer 12.03 mg/L FEU (<0.60) H 10/04/22 02:32 Abnormal lab findings: Abnormal Labs 10/04/22 10/04/22 10/04/22 02:32 02:32 02:32 WBC 17.4 H RBC 3.77 L Hgb 11.0 L D Hct 34.2 L RDW 15.8 H Plt Count 106 L D Neutrophils # 17.0 H Lymphocytes # 0.1 L PT 12.2 H INR 1.2 H APTT D-Dimer 12.03 H Sodium 129 L Chloride 97 L Carbon Dioxide 20 L BUN 48 H Creatinine 2.86 H Glucose 182 H POC Glucose (mg/dL) Calcium 7.9 L Troponin I Total Protein 4.9 L Albumin 2.9 L 10/04/22 10/04/22 10/04/22 02:32 08:31 11:46 WBC RBC Hgb Hct RDW Plt Count Neutrophils # Lymphocytes # PT INR APTT D-Dimer Sodium Chloride Carbon Dioxide BUN Creatinine Glucose POC Glucose (mg/dL) 259 H Calcium Troponin I 0.118 H* 0.173 H* Total Protein Albumin 11/30/22 11/30/22 12:27 12:27 WBC RBC Hgb Hct RDW Plt Count Neutrophils # Lymphocytes # PT INR APTT 88.3 H D-Dimer Sodium Chloride Carbon Dioxide BUN Creatinine Glucose POC Glucose (mg/dL) Calcium Troponin I 0.247 H* Total Protein Albumin - Diagnostic Findings Chest x-ray: image reviewed (As noted in HPI) Additional studies: Venous Doppler positive for left lower extremity DVT Assessment and Plan Assessment: Impression: Acute hypoxic respiratory failure, multifactorial, clinically I strongly suspect that the patient has pulmonary embolism, he has underlying COPD with acute COPD exacerbation, left lower lobe atelectasis possible healthcare acquired pneumonia involving the left lower lobe. Acute left lower extremity DVT/recurrent, strongly suspect pulmonary embolism. Acute COVID-19 infection, doubt COVID-19 pneumonia the findings on the chest x- ray are not typical of COVID-19 pneumonia Acute exacerbation of COPD Possible sepsis secondary to left lower lobe pneumonia History of bronchogenic carcinoma/advanced age with skeletal metastasis Type 2 diabetes. Benign essential hypertension Chronic kidney injury secondary to diabetic nephropathy stage III kidney disease. Recommendation: Continue heparin, eventually transitioned to oral anti-coagulation therapy in the next 24 hours Continue antibiotics Continue bronchodilators and steroids Check pro calcitonin level COVID-19 cocktail. Check sputum and blood cultures close monitoring of sugars and treat accordingly Resume home meds. GI prophylaxis. Discussed CODE STATUS with the patient, patient is DO NOT RESUSCITATE. We will continue to follow. Time with Patient: Greater than 30
[2022-10-04] MEDS ORDERED: IPRATROPIUM-ALBUTEROL 3 ML NEB INHALATION SCH (16:00)
[2022-10-04] MEDS: TIOTROPIUM 2.5 MCG INHALER INHALATION SCH (16:21)
[2022-10-04] MEDS: ALBUTEROL HFA INHALER INHALATION SCH ×2 (16:22→19:44)
[2022-10-04 16:54] LABS: Glucose,Whole Blood 398 mg/dL (70-110)
[2022-10-04] MEDS ORDERED: METOPROLOL SUCCINATE (ER) 25 MG TAB.ER.24H PO SCH (17:00)
[2022-10-04] MEDS ORDERED: ASCORBIC ACID 500 MG TAB PO SCH (17:00)
[2022-10-04] MEDS: SYMBICORT 160-4.5 MCG INHALER INHALATION SCH (19:44)
[2022-10-04 20:47] LABS: Glucose,Whole Blood 332 mg/dL (70-110)
[2022-10-04] MEDS ORDERED: PANTOPRAZOLE 40 MG TABLET PO SCH (21:00)
[2022-10-04] MEDS ORDERED: amLODIPine 10 MG TAB PO SCH (21:00)
[2022-10-04] MEDS ORDERED: PIPERACILLIN-TAZOBACTAM 3.375 GM in SODIUM CHLORIDE 0.9% 100 ML IVPB SCH (21:00)
[2022-10-04] MEDS ORDERED: ASPIRIN 81 MG PO SCH (21:00)
[2022-10-04] MEDS ORDERED: levETIRAcetam 500 MG TAB PO SCH (21:00)
[2022-10-04] MEDS ORDERED: TROSPIUM CHLORIDE 20 MG TABLET PO SCH (21:00)
[2022-10-04] MEDS ORDERED: ATORVASTATIN 10 MG TAB PO SCH (21:00)
[2022-10-04] MEDS ORDERED: INSULIN DETEMIR (LEVEMIR) 100 UNIT/ML SYR SQ SCH (21:00)
[2022-10-05] MEDS: HEPARIN SOD,PORK IN 0.45% NACL 25,000 UNIT in 0.45% NACL 1 250ML.BAG IV SCH (02:38)
[2022-10-05] MEDS ORDERED: LORazepam 2 MG/ML INJ IV ONE (02:40)
[2022-10-05 02:57] LABS: Glucose,Whole Blood 107 mg/dL (70-110)
[2022-10-05] MEDS ORDERED: MORPHINE SULFATE 4 MG/ML SYRINGE IVP STA (03:29)
[2022-10-05] MEDS ORDERED: MORPHINE SULFATE 2 MG/ML SYRINGE IVP PRN (04:03)
[2022-10-05] MEDS ORDERED: ATROPINE OPHTH SOLN 1% 5ML BTL SUBLINGUAL PRN (04:41)
[2022-10-05] MEDS ORDERED: ARTIFICIAL TEARS-HYPROMELLOSE DROPS 15 ML BTL BOTH EYES PRN (04:41)
[2022-10-05] MEDS ORDERED: DRY MOUTH SPRAY 44.3 SPRAY/44.3 ML SPRAY MUCOUS MEM PRN (04:41)
[2022-10-05] MEDS ORDERED: LORazepam 2 MG/ML INJ IV PRN (04:41)
[2022-10-05] MEDS ORDERED: ONDANSETRON 4 MG/2 ML VIAL IVP PRN (04:41)
[2022-10-05] MEDS ORDERED: HALOPERIDOL LACTATE 5 MG/ML 1 ML VIAL IM PRN (04:41)
[2022-10-05] MEDS ORDERED: MORPHINE SULFATE (100 MG/2 ML) 100 MG in SODIUM CHLORIDE 0.9% 100 ML IV SCH (04:45)
[2022-10-05 05:56] VITALS: TEMP 98.6
[2022-10-05 05:58] VITALS: BP 101/64; PULSE 96; RESP 38
[2022-10-05] MEDS ORDERED: LEVOTHYROXINE 25 MCG TAB PO SCH (06:00)
[2022-10-05] MEDS: INSULIN ASPART (NovoLOG) 100 UNIT/ML VIAL SQ SCH (07:01)
[2022-10-05] MEDS ORDERED: TAMSULOSIN 0.4 MG CAP.ER.24H PO SCH (08:00)
[2022-10-05] MEDS ORDERED: allopurinoL 100 MG TAB PO SCH (08:00)
[2022-10-05] MEDS ORDERED: CHOLECALCIFEROL 25 MCG (1000 IU) TABLET PO SCH (08:00)
[2022-10-05] MEDS: ALBUTEROL HFA INHALER INHALATION SCH ×2 (08:53→12:35)
[2022-10-05] MEDS: SYMBICORT 160-4.5 MCG INHALER INHALATION SCH (08:53)
[2022-10-05] MEDS: TIOTROPIUM 2.5 MCG INHALER INHALATION SCH (08:55)
--- NOTE | 2022-10-05 11:11 | P.DS ---
Providers Date of admission: 10/04/22 04:22 Expected date of discharge: 10/05/22 Attending physician: Regina Barrientos MD Consults: 10/04/22 04:19 Consult Physician Urgent Consulting Provider: [facility] Consult Reason/Comments: nstemi Do you want consulting provider notified?: Yes Consult Physician Urgent Consulting Provider: Renzo Boyer Consult Reason/Comments: acute bipap resp failure, covid Do you want consulting provider notified?: Yes Primary care physician: [facility] Hospital Course: 76-year-old male with multiple medical conditions to include COPD, hypertension, hyperlipidemia, left lung cancer, DVT on anticoagulation who presents to the emergency department from [facility], due to increased shortness of breath. He was diagnosed with Covid on the . He was just recently started on oxygen as his pulse ox was worsening. He admits to a cough without production. No hematemesis. Denies chest pain. Denies nausea, vomiting, fevers or chills. They have been giving him his albuterol treatments as well as steroids however has had no improvement in his symptoms. Patient became increasingly hypoxic and therefore was transferred to our facility for further evaluation. Medications emergency department revealed temperature 102.9, O2 SATURATIONS 82% ON ROOM AIR, 92% ON 4 L. Labs showed white count 17.4, hemoglobin 11, hematocrit 31, platelet 106. [id number], potassium 4.3, chloride 97, bicarbonate 20, BUN 48, creatinine 2.86, glucose 22, calcium 7.9, troponin 0.118, went up to 0.173. CXR showed left lower lobe infiltrates versus atelectasis. Patient was admitted for acute hypoxic respiratory failure, which was multifactorial, likely sec to pulmonary embolism, combined with COPD exacerbation, left lower lobe atelectasis with healthcare acquired pneumonia involving the left lower lobe. He was also found to have left lower extremity DVT/recurrent. He was initially treated with BiPAP, refused ABG draws. He was also initiated on Zosyn, Decadron, bronchodilators. In addition he was on a heparin drip. His breathing progressively got worse however. He did not want to be on mechanical ventilation or resuscitated. Case was discussed with his family at the bedside daughter and son, patient was transitioned to comfort care, was started on morphine drip and this morning. Discharge time 35 minutes. Patient Condition at Discharge: Serious Plan - Discharge Summary Discharge Rx Participant: No New Discharge Prescriptions: No Action amLODIPine [Norvasc] 10 mg PO HS@2100 Omeprazole 20 mg PO HS@2100 Solifenacin Succinate [Vesicare] 10 mg PO HS@2100 Aspirin [Adult Low Dose Aspirin EC] 81 mg PO HS@2100 Ferrous Sulfate [Iron (65 MG Elemental)] 325 mg PO DAILY@1200 bisacodyL [Dulcolax] 10 mg RECTAL DAILY PRN PRN Reason: Constipation guaiFENesin [guaiFENesin Oral Solution] 200 mg PO Q4H PRN PRN Reason: Cough Glucerna Shake 1 can PO TID@0800,1200,1700 Zinc Gluconate [Zinc] 50 mg PO DAILY@1700 calcitrioL [Calcitriol] 0.25 mcg PO DAILY@1200 Ascorbic Acid [Vitamin C] 500 mg PO DAILY@1700 Furosemide [Lasix] 40 mg PO BID@0600,1400 Ipratropium-Albuterol Nebulize [Duoneb 0.5 mg-3 mg/3 ml Soln] 3 ml INHALATION RT-QID allopurinoL [Zyloprim] 100 mg PO DAILY@0800 Levothyroxine Sodium [Synthroid] 25 mcg PO DAILY@0600 levETIRAcetam [Keppra] 500 mg PO BID@0800,2100 Simvastatin [Zocor] 20 mg PO HS@2100 Tamsulosin [Flomax] 0.4 mg PO DAILY@0800 Budesonide/Formoterol Fumarate [Symbicort 160-4.5 Mcg Inhaler] 2 puff INHALATION RT-BID@0800,1700 Na Phos,M-B/Na Phos,Di-Ba [Fleet Adult] 133 ml RECTAL DAILY PRN PRN Reason: Constipation Magnesium Hydroxide [Milk of Magnesia Concentrate] 7,200 mg PO Q48H PRN PRN Reason: Constipation Loperamide [Imodium] 2 mg PO QID PRN PRN Reason: Loose Stool INSULIN ASPART (NovoLOG) [NovoLOG (formulary)] 8 unit SQ AC-TID Metoprolol Succinate (ER) [Toprol Xl] 25 mg PO BID@0800,1700 Cholecalciferol [Vitamin D3 (25 Mcg = 1000 Iu)] 50 mcg PO DAILY@0800 methylPREDNISolone [Medrol Dose Pack] See Taper PO DIRECTED Insulin Detemir (Levemir) [Levemir] 12 unit SQ HS@2099 Azithromycin [Zithromax Z Pack] See Taper PO DIRECTED Discharge Medication List amLODIPine [Norvasc] 10 mg PO HS@209907/30/19 [History] Omeprazole 20 mg PO HS@209907/06/20 [History] Solifenacin Succinate [Vesicare] 10 mg PO HS@209901/12/21 [History] Furosemide [Lasix] 40 mg PO BID@0600,1400 06/03/21 [History] Ipratropium-Albuterol Nebulize [Duoneb 0.5 mg-3 mg/3 ml Soln] 3 ml INHALATION RT-QID 10/14/21 [History] Aspirin [Adult Low Dose Aspirin EC] 81 mg PO HS@209902/27/22 [History] Levothyroxine Sodium [Synthroid] 25 mcg PO DAILY@0600 06/12/22 [History] allopurinoL [Zyloprim] 100 mg PO DAILY@0800 06/12/22 [History] Ferrous Sulfate [Iron (65 MG Elemental)] 325 mg PO DAILY@1200 07/06/22 [History] Simvastatin [Zocor] 20 mg PO HS@209907/06/22 [History] levETIRAcetam [Keppra] 500 mg PO BID@0800,209907/06/22 [History] Budesonide/Formoterol Fumarate [Symbicort 160-4.5 Mcg Inhaler] 2 puff INHALATION RT-BID@0800,1700 08/29/22 [History] Tamsulosin [Flomax] 0.4 mg PO DAILY@0800 08/29/22 [History] Magnesium Hydroxide [Milk of Magnesia Concentrate] 7,200 mg PO Q48H PRN 09/13/22 [History] Na Phos,M-B/Na Phos,Di-Ba [Fleet Adult] 133 ml RECTAL DAILY PRN 09/13/22 [History] bisacodyL [Dulcolax] 10 mg RECTAL DAILY PRN 09/13/22 [History] Ascorbic Acid [Vitamin C] 500 mg PO DAILY@1700 10/04/22 [History] Azithromycin [Zithromax Z Pack] See Taper PO DIRECTED 10/04/22 [History] Cholecalciferol [Vitamin D3 (25 Mcg = 1000 Iu)] 50 mcg PO DAILY@0800 10/04/22 [History] Glucerna Shake 1 can PO TID@0800,1200,1700 10/04/22 [History] INSULIN ASPART (NovoLOG) [NovoLOG (formulary)] 8 unit SQ AC-TID 10/04/22 [History] Insulin Detemir (Levemir) [Levemir] 12 unit SQ HS@2100 10/04/22 [History] Loperamide [Imodium] 2 mg PO QID PRN 10/04/22 [History] Metoprolol Succinate (ER) [Toprol Xl] 25 mg PO BID@0800,1700 10/04/22 [History] Zinc Gluconate [Zinc] 50 mg PO DAILY@1700 10/04/22 [History] calcitrioL [Calcitriol] 0.25 mcg PO DAILY@1200 10/04/22 [History] guaiFENesin [guaiFENesin Oral Solution] 200 mg PO Q4H PRN 10/04/22 [History] methylPREDNISolone [Medrol Dose Pack] See Taper PO DIRECTED 10/04/22 [History] Follow up Appointment(s)/Referral(s): Miguel Baca MD [Primary Care Provider] - 1-2 days
[2022-10-05] MEDS ORDERED: FERROUS SULFATE 325 MG TAB PO SCH (12:00)
== END 2022-10-05 13:12 | disposition expired | DRG 871 ==
LOC: EC 01:44 → 3SCARD 04:22
PROVIDERS: ADMIT Family Medicine; ATTEND Family Medicine
PROC: 5A09357 Assistance with Respiratory Ventilation, Less than 24 Consecutive Hours, Continuous Positive Airway Pressure (ICD-10-PCS; principal; 2022-10-04)
DX: A41.89 Other specified sepsis (principal); I26.99 Other pulmonary embolism without acute cor pulmonale; J96.01 Acute respiratory failure with hypoxia; U07.1 COVID-19; J18.9 Pneumonia, unspecified organism; I82.412 Acute embolism and thrombosis of left femoral vein; I82.432 Acute embolism and thrombosis of left popliteal vein; C79.51 Secondary malignant neoplasm of bone; J44.1 Chronic obstructive pulmonary disease with (acute) exacerbation; J44.0 Chronic obstructive pulmonary disease with (acute) lower respiratory infection; J98.11 Atelectasis; C34.92 Malignant neoplasm of unspecified part of left bronchus or lung; D69.6 Thrombocytopenia, unspecified; E11.22 Type 2 diabetes mellitus with diabetic chronic kidney disease; G40.909 Epilepsy, unspecified, not intractable, without status epilepticus; I12.9 Hypertensive chronic kidney disease with stage 1 through stage 4 chronic kidney disease, or unspecified chronic kidney disease; Z95.828 Presence of other vascular implants and grafts; Z28.310 Unvaccinated for COVID-19; R77.8 Other specified abnormalities of plasma proteins; Z51.5 Encounter for palliative care; Z66 Do not resuscitate; E78.5 Hyperlipidemia, unspecified; N18.30 Chronic kidney disease, stage 3 unspecified; N40.0 Benign prostatic hyperplasia without lower urinary tract symptoms; M54.9 Dorsalgia, unspecified; K21.9 Gastro-esophageal reflux disease without esophagitis; Y95 Nosocomial condition; Z79.01 Long term (current) use of anticoagulants; Z79.82 Long term (current) use of aspirin; Z79.890 Hormone replacement therapy; Z79.899 Other long term (current) drug therapy; Z79.51 Long term (current) use of inhaled steroids; Z86.73 Personal history of transient ischemic attack (TIA), and cerebral infarction without residual deficits; Z85.118 Personal history of other malignant neoplasm of bronchus and lung; Z90.2 Acquired absence of lung [part of]; I25.2 Old myocardial infarction; Z87.891 Personal history of nicotine dependence; Z79.4 Long term (current) use of insulin; Z86.718 Personal history of other venous thrombosis and embolism
CPT/HCPCS: 36415; 71046; 80053; 83605; 83880; 84145; 84484; 85025; 85379; 85610; 85730; 87040; 87502; 93970; 94640; 94660; 96361; 96365; 96374; 96376; 99291